=== PATIENT | female | born 1965 ===

== ENCOUNTER 2017-04-04 05:29 | Inpatient (IN) | payer MEDICARE ==
[2017-04-04] MEDS ORDERED: Dextrose 50% SYRINGE Inj (50 ml) IVP ONE ×2 (05:35→05:49)
--- NOTE | 2017-04-04 05:41 | ED PDOC ---
HPI:STROKE - Time Time: 05:20 - Historian Historian: Spouse, EMS - Chief Complaint Chief Complaint: Weakness, Mental status change - Onset Date: 04/03/17 Time: 09:30 Onset: Hours (last lucid conversation with spouse at 0930 04/03/2017) - Timing Timing: Worsening - Notes: Notes:: 51 year old female brought in by EMS presents to ED for a possible cerebrovascular accident and has a past medical history of hypotension, cervical cancer, pulmonary embolism, and small bowel enteritis. states patient's condition has been deteriorating x20 hours, and noted the last lucid conversation with the patient around that time. Notes patient initially complained of weakness and lethargy. denies fever or flu-like symptoms. As per , patient was recently discharged after being admitted to [place] for 3 months for small bowel enteritis and a subsequent abdominal surgery. confirms patient has been in cancer remission since 2014. pt currently on xarelto for history of pe. PCP: in [facility] NIHSS Stroke Scale - Date/Time Evaluation Performed Date Performed: 04/04/17 Time Performed: 05:30 When Was NIHSS Performed: Baseline - How Severe is the Stroke Level of Consciousness: 1=Drowsy LOC to Questions: 2=Neither correct LOC to commands: 2=Neither correct Best Gaze: 0=Normal Visual: 0=No visual loss Facial: 0=Normal Motor Arm - Left: 0=No drift Motor Arm - Right: 0=No drift Motor Leg - Left: 0=No drift Motor Leg - Right: 0=No drift Limb Ataxia: 0=Absent Sensory: 0=Normal Best Language: 1=Mild to moderate aphasia Dysarthia: 1=Mild to moderate slurring Extinction & Inattention (Neglect): 0=Normal, no object Score: 7 rTPA Inclusion/Exclusion - Refusal of Treatment Patient Refused Treatment: No - Inclusion Criteria for Altepase Patient is 18 years or Older: Yes The Clinical Diagnosis of Ischemic Stroke That is Causing a Potentially Disabling Neurological Deficit: Yes Time of Onset is Well Established to be Less Than 270 Minute Before Treatment Would Begin: Yes Risk/Benefit Discussed With Patient/Family Member Present: No - Exclusion Criteria for Altepase Uncontrolled Hypertension at Time of Treatment (Systolic BP above 185 or Diastolic BP above 110 mmHg): No Active Internal Bleeding: Yes Known Bleeding Diathesis Including but Not Limited to: Platelets Below 100,000/ mm,PTT Above 40 sec After Heparin Use, Current Use of Oral Anitcoagulant With INR Greater Than 1.7 or PT Greater Than 15 secs: No Evidence of an Intracranial Hemorrhage: No Evidence of Major Acute Infarct With Signs Greater Than 1/3 MCA Territory: No Suspicion of Subarachnoid Hemorrhage on Pretreatment Evaluation Even if CT Head Negative For Hemorrhage: No - Warning to TPA With Conditions Following Conditions Weighed Against Anticipated Benefit: No Past Medical History Reviewed: Historical Data, Nursing Documentation, Vital Signs - Medical History PMH: Malignancy (cervical cancer (remission since 2014)), Pulmonary Embolism Other PMH: Hypotension, small bowel enteritis - Surgical History Surgical History: Cholecystectomy Denies: No Surg Hx Other surgeries: recent unspecified abdominal surgery status post small bowel enteritis, knee replacement in July 2016, IVC filter status post pulmonary embolism, hysterectomy status post cervical cancer - Family History Family History: States: Unknown Family Hx - Living Arrangements Living Arrangements: With Family - Social History Current smoker - smoking cessation education provided: No Ex-Smoker (has not smoked in the last 12 months): No Alcohol: None Drugs: Denies - Home Medications Home Medications: Ambulatory Orders Medication Instructions Recorded Acetaminophen [Tylenol 325mg tab] 650 mg PO Q6 PRN 04/04/17 Atenolol [Tenormin] 50 mg PO DAILY 04/04/17 Gabapentin [Neurontin] 300 mg PO Q8 04/04/17 LORazepam [Ativan] 0.5 mg PO HS 04/04/17 Montelukast [Singulair] 10 mg PO DAILY 04/04/17 Pantoprazole Sodium [Protonix] 40 mg PO DAILY 04/04/17 Rivaroxaban [Xarelto] 20 mg PO DAILY 04/04/17 Tamsulosin HCl [Flomax] 0.4 mg PO HS 04/04/17 Topiramate [Topamax] 25 mg PO DAILY 04/04/17 - Allergies Allergies/Adverse Reactions: Allergies Allergy/AdvReac Type Severity Reaction Status Date / Time cimetidine [From Tagamet] Allergy RASH Verified 04/04/17 05:33 nickel Allergy RASH Verified 04/04/17 05:34 Penicillins Allergy RASH Verified 04/04/17 05:33 Review of Systems Constitutional: Negative for: Fever ( denies) ENT: Negative for: Nose Discharge ( denies), Nose Congestion ( denies), Throat Pain ( denies) Neurological: Positive for: Weakness (Patient complained of weakness initially) Physical Exam - Reviewed Nursing Documentation Reviewed: Yes Vital Signs Reviewed: Yes - Physical Exam Appears: Positive for: Non-toxic, In Acute Distress (Weak, cachectic. Temporal wasting). Negative for: Well Head Exam: Positive for: ATRAUMATIC, NORMOCEPHALIC Skin: Positive for: Normal Color, Warm, Dry Eye Exam: Positive for: Normal appearance ENT: Negative for: Normal ENT Inspection (dried red blood around mouth) Neck: Positive for: Normal (soft), Painless ROM, Supple Cardiovascular/Chest: Positive for: Regular Rate, Rhythm. Negative for: Murmur Respiratory: Positive for: Normal Breath Sounds. Negative for: Respiratory Distress Gastrointestinal/Abdominal: Positive for: Soft, Tenderness (minimally tender), Other (multiple abdominal scars from prior surgeries) Back: Positive for: Other (Bruising noted to back in multiple places) Rectal: Positive for: Blood Streaked Stool (stool mixed with bright red blood). Negative for: Normal Exam Extremity: Positive for: Normal ROM, Pedal Edema (bilateral pedal edema) Neurologic/Psych: Positive for: Alert. Negative for: Oriented - Laboratory Results Result Diagrams: 04/07/17 04:20 04/07/17 04:20 - ECG ECG Rhythm: Positive for: Sinus Rhythm. Negative for: ST/T Changes (no ST elevations) Rate: 94 - Critical Care Total Time (In Min): 30 Medical Decision Making Medical Decision Makin CODE STROKE called for altered mental status. 0529 Glucose level: 52 0543 * T&S * CT HEAD * EKG * Labs * Hemoglobin A1C * Lipid panel * Trop I * PTT/PT * CXR 0547 CT HEAD FINDINGS Brain: Mild volume loss No hemorrhage. No significant white matter disease. No edema. Ventricles: Unremarkable. No ventriculomegaly. Bones/joints: Unremarkable. No acute fracture. Soft tissues: Unremarkable. Sinuses: Unremarkable as visualized. No acute sinusitis. Mastoid air cells: Unremarkable as visualized. No mastoid effusion. IMPRESSION: No intracranial hemorrhage.Please see discussion above. 0610 * VBG * Blood culture 0610 Patient is having severe hematuria and on diaper area noted stool mixed with red blood. dried blood noted around mouth as well. Patient currently on Xarelto. [address] Abd/Pelvis. Ordered IV fluids and iv Protonix. ordered blood products , and consented patient via her at bedside. currently bp 114 systolic. Time: 07:00 Patient is signed out by me to Dr. Lance Chaudhry, pending CT rest of labs ( only CBC back at the time of my signout) and admission. Scribe Attestation: Documented by Marianne Hernandez & Lucero Kee, acting as a scribe for Denise Sandoval MD. Scribe Attestation: All medical record entries made by the Scribe were at my direction and personally dictated by me. I have reviewed the chart and agree that the record accurately reflects my personal performance of the history, physical exam, medical decision making, and the department course for this patient. I have also personally directed, reviewed, and agree with the discharge instructions and disposition. Disposition - Clinical Impression Clinical Impression: GI bleed, Respiratory distress, Anemia, Hypotension, Altered mental status - Patient ED Disposition Is Patient to be Admitted: Transfer of Care - Disposition Disposition: Transfer of Care Disposition Time: 07:00 Condition: CRITICAL Patient Signed Over To: Lance Chaudhry Handoff Comments: Pending CT, chemistry results and admission
[2017-04-04 06:08] LABS: BASO % 0.1 % (0.0-2.0); EOS # 0.5 K/uL (0.0-0.7); EOS % 4.8 % (0.0-4.0); LYMPH # 0.2 K/uL (1.0-4.3); LYMPH % 1.9 % (20.0-40.0); MEAN CELL VOLUME 81.5 fl (81.0-99.0); MEAN CORPUSCULAR HGB CONC 33.1 g/dL (33.0-37.0); MONO # 0.2 K/uL (0.0-0.8); MONO % 2.2 % (0.0-10.0); NEUT # 9.6 K/uL (1.8-7.0); RED CELL DISTRIBUTION WIDTH 18.8 % (11.5-14.5); WHITE BLOOD COUNT 10.5 K/uL (4.8-10.8)
[2017-04-04 06:12] LABS: VENOUS BLOOD GAS PCO2 25 mmHg (40-60); VENOUS BLOOD PH 7.19 (7.32-7.43)
[2017-04-04 06:24] LABS: PARTIAL THROMBOPLASTIN TIME 52.5 Seconds (25.6-37.1)
[2017-04-04] MEDS ORDERED: Sodium Chloride 0.9% 1,000 ML IV STA ×3 (06:41→10:59)
[2017-04-04] MEDS ORDERED: Pantoprazole 40 MG in Sodium Chloride 0.9% 100 ML IVPB STA ×2 (06:41→06:42)
[2017-04-04 07:03] LABS: GFR AFRICAN-AMERICAN 11
[2017-04-04 07:04] LABS: ALB/GLOB RATIO 0.8 (1.0-2.1); ALKALINE PHOSPHATASE 216 U/L (38-126); ALT/SGPT 32 U/L (9-52); AST/SGOT 37 U/L (14-36); BILIRUBIN,TOTAL 1.8 mg/dl (0.2-1.3); BLOOD UREA NITROGEN 75 mg/dl (7-17); CHLORIDE 88 mmol/L (98-107); CHOLESTEROL 100 mg/dL (0-199); GLUCOSE,RANDOM 388 mg/dL (65-105); POTASSIUM 3.9 MMOL/L (3.6-5.0); TOTAL PROTEIN 5.1 G/DL (6.3-8.2)
[2017-04-04 07:06] LABS: SODIUM 120 mmol/l (132-148)
[2017-04-04 07:07] LABS: CALCIUM 5.6 mg/dL (8.4-10.2); CARBON DIOXIDE 9 mmol/L (22-30)
[2017-04-04 07:11] LABS: URINE BILIRUBIN NEGATIVE (NEGATIVE); URINE BLOOD LARGE (NEGATIVE); URINE COLOR RED (YELLOW); URINE GLUCOSE (UA) NEG (Normal); URINE KETONE NEGATIVE (NEGATIVE); URINE LEUKOCYTE ESTERASE MOD Leu/uL (Negative); URINE PROTEIN 100 mg/dL (NEGATIVE); URINE UROBILINOGEN 0.2-1.0 mg/dL (0.2-1.0)
[2017-04-04 07:13] LABS: RBC URINE 8009 /hpf (0-3); WBC URINE 718 /hpf (0-5)
[2017-04-04 07:20] LABS: URINE BACTERIA FEW (<OCC)
--- NOTE | 2017-04-04 07:39 | ED PDOC ---
- Laboratory Results Result Diagrams: 04/04/17 05:56 04/04/17 05:56 Interpretation Of Abn Labs: 120 Na, 8.6 hg Urine dip results: Positive for: Blood - ECG ECG: Positive for: Interpreted By Me, Viewed By Me ECG Rhythm: Positive for: Nonspecific Changes O2 Sat by Pulse Oximetry: 100 (RA) - Radiology X-Ray: Interpreted by Me, Viewed By Me X-Ray Interpretation: Other (tube at sloane) - Progress ED Course And Treament: 800: supervisor residential at bedside. Central line in place. 815: Spoke with ICU doctor, will admit. Wants pressure support considering BP low. 845: Will intubate as pt. still altered and tachypneic to protect airway. 900: Stable. Pressure support medication started. Tube at sloane, will pull back 3cm. Spoke with Dr. Cornejo. Will admit ICU. Blood transfusion to be given. Spoke with GI Dr. Nixon. Will consult. No additional tx at this time. Pt. on protonix drip, getting pressure support meds, blood transfusion. - Critical Care Total Time (In Min): 60 Documented Critical Care: Time excludes all time spent performint seperately billable procedures Medical Decision Making Medical Decision Making: Time: 07:00 --Patient is signed out to me by Dr. Denise Sandoval, pending CT and reevaluation. Time: 07:25 --supervisor residential paged for central line placement. 07:38 CHEST X-RAY FINDINGS: LUNGS: There is elevation the right hemidiaphragm from an indeterminate etiology. Crowding of the bronchovascular markings is question at the medial right base and is favored over definite infiltrate. Remaining lung barrientos are unremarkable bilaterally. PLEURA: No significant pleural effusion identified, no pneumothorax apparent. CARDIOVASCULAR: Normal. OSSEOUS STRUCTURES: No significant abnormalities. VISUALIZED UPPER ABDOMEN: Surgical clips are seen in the right upper quadrant abdomen and there is an inferior vena cava filter identified in position in the abdomen as well. OTHER FINDINGS: None. IMPRESSION: Crowding of the bronchovascular markings seen the medial right base likely related to elevated right hemidiaphragm. No definite acute infiltrate bilaterally. No pleural effusion or pneumothorax bilaterally either. Time: 07:39 --supervisor residential at bedside, placing central line. Time: 08:38 --Spoke to Dr. Cornejo for admission to ICU. Scribe Attestation: Documented by Lucero Kee, acting as a scribe for Lance Chaudhry MD Provider Scribe Attestation: All medical record entries made by the Scribe were at my direction and personally dictated by me. I have reviewed the chart and agree that the record accurately reflects my personal performance of the history, physical exam, medical decision making, and the department course for this patient. I have also personally directed, reviewed, and agree with the discharge instructions and disposition. Disposition Counseled Patient/Family Regarding: Studies Performed - Clinical Impression Clinical Impression: GI bleed, Respiratory distress, Anemia, Hypotension, Altered mental status - POA Present On Arrival: Poor Glycemic Control, Pressure Ulcer (wounds healing) - Disposition Disposition: Admitted as In-Patient Disposition Time: 09:06 Condition: CRITICAL Procedure: Intubation - Time Performed Time Performed: 08:45 - Consent Obtained Consent obtained: Verbal () - Performed By Performed by: Attending Physician - Indications Indication(s):: Respiratory failure, Hemodynamically unstable - Method Method:: Oral-Laryngoscopy - Rapid Sequence Intubation Anesthetic:: Etomidate Pretreatment:: Pre-oxygenation - Tube type Tube type:: Endotracheal tube Tube size:: Cuffed Number of attempts:: 1 Depth measured at lip: cm: 21 - Confirmation Confirmation: Direct visual.of intubate, End-tidal CO2 positive, Bilat. breath sounds, No epigastric gurgle - Post-intubation CXR Post-intubation CXR: CM above sloane Tube adjustment:: Requires adjustment, cm above sloane (at sloane) - Post-intubation O2 sat % Post-intubation O2 sat%:: 100
[2017-04-04] MEDS ORDERED: Rocuronium 10 mg/ml (5 ml) ONE ×2 (08:43→08:46)
[2017-04-04] MEDS ORDERED: Etomidate 20 mg/10ml Inj IV ONE ×2 (08:43→09:14)
--- NOTE | 2017-04-04 09:53 | PCM.PROC ---
Procedures Attestation:: I certify that I have explained the specified Operation(s) or Procedure(s), risks, benefits and reasonable alternatives to the Patient and/or other person responsible. The opportunity was given to ask questions and all questions answered - Central Line Placement Right Femoral Triple Lumen Catheter Aseptic technique was employed throughout the procedure: Hand Hygiene done prior to procedure, Full sterile barriers (mask, hair cover, sterile gown, sterile gloves), Full body sterile drape, Chloraprep Antiseptic: 2 minute prep for Femoral Central Line Prep: Chlorhexidine-Alcohol Combination Local Anesthesia Used: Lidocaine 1% Central Line Lumen Inserted: triple Central Line Length: 20 cm Post Procedure: Sutured in Place, Good Blood Return, All Ports Aspirated, Flushed, Capped, Sterile Dressing Applied Secured by: Suture Post procedure dressing: Gauze, Chlorhexidine disc (Biopatch) Patient Tolerated Procedure: Well, No Complications
--- NOTE | 2017-04-04 09:53 | CT ---
PROCEDURE: CT HEAD WITHOUT CONTRAST. HISTORY: code stroke COMPARISON: None available. TECHNIQUE: Axial computed tomography images were obtained through the head/brain without intravenous contrast. Radiation dose: Total exam DLP = 960.12 mGy-cm. This CT exam was performed using one or more of the following dose reduction techniques: Automated exposure control, adjustment of the mA and/or kV according to patient size, and/or use of iterative reconstruction technique. FINDINGS: HEMORRHAGE: No intracranial hemorrhage. BRAIN: Normal siegel-white matter differentiation and density are appreciated throughout the cerebrum and cerebellum with the brainstem appearing unremarkable as well. There is no mass effect. There is no suspicious extra-axial fluid collection in the midline brain anatomy appears diffusely unremarkable. VENTRICLES: Unremarkable. No hydrocephalus. CALVARIUM: Unremarkable. PARANASAL SINUSES: Unremarkable as visualized. No significant inflammatory changes. MASTOID AIR CELLS: Unremarkable as visualized. No inflammatory changes. OTHER FINDINGS: None. IMPRESSION: Unremarkable unenhanced CT of the Head. Follow-up CT or MRI are available if clinically warranted.
--- NOTE | 2017-04-04 10:04 | RAD ---
HISTORY: post intubation COMPARISON: Single frontal chest radiograph 04/04/2014 05:58 a.m.. FINDINGS: Interval endotracheal intubation is appreciate with the endotracheal tube potentially abutting the sloane. Retraction 1-2 cm is advised follow-up by confirmation radiograph. LUNGS: Patchy atelectasis or infiltrate appears to be developing the medial right base with remaining lung barrientos clear otherwise bilaterally. PLEURA: No significant pleural effusion identified, no pneumothorax apparent. CARDIOVASCULAR: Normal. OSSEOUS STRUCTURES: No significant abnormalities. VISUALIZED UPPER ABDOMEN: Surgical clips are seen the right upper quadrant abdomen as well as inferior vena cava filter. OTHER FINDINGS: None. IMPRESSION: Endotracheal tube terminates at the sloane. Retraction once cm is advised follow-up by confirmation chest radiograph. Developing atelectasis or infiltrate right base medially.
[2017-04-04 10:47] LABS: NEUTROPHIL 88 % (42-75); TOTAL CELLS COUNTED 100
[2017-04-04 10:56] LABS: LARGE PLATELETS PRESENT
--- NOTE | 2017-04-04 10:59 | CT ---
PROCEDURE: CT Abdomen and Pelvis without intravenous contrast HISTORY: gi bleed COMPARISON: None. TECHNIQUE: Helical CT of the abdomen and pelvis was performed without oral or intravenous contrast as per referring physician request .. Contrast Dose: None Radiation dose: Total exam DLP = 1150.00 mGy-cm. This CT exam was performed using one or more of the following dose reduction techniques: Automated exposure control, adjustment of the mA and/or kV according to patient size, and/or use of iterative reconstruction technique. FINDINGS: LOWER THORAX: Dependent atelectasis favored over infiltrate at the right lower lobe base with limited atelectasis noted at the left base, also dependent. No pleural or pericardial effusion identified. LIVER: There is marked lucency seen throughout the liver indicative of prominent diffuse fatty infiltration without focal mass appreciable in this unenhanced examination. No gross biliary tree dilatation is appreciated. GALLBLADDER AND BILE DUCTS: Prior cholecystectomy. PANCREAS: Unremarkable. No gross lesion or ductal dilatation. SPLEEN: Unremarkable. ADRENALS: Unremarkable. No mass. KIDNEYS AND URETERS: There is mild bilateral hydronephrosis appreciated with a few surgical clips identified scattered the bilateral retroperitoneum at the level of the mid to upper ureters. The left ureter is not appear particularly prominent with mild dilatation noted in the proximal right ureter. Consider potential bilateral strictures. Intraureteral calculi are not favored but difficult to evaluate due the presence of retroperitoneal surgical clips. Contrast CT would be useful for further characterization. VASCULATURE: Inferior vena cava filter is identified in the IVC with the abdominal aorta normal caliber throughout. BOWEL: Evaluation of the bowel is compromised by the lack of not only intravenous but also oral contrast material. There is no definite bowel obstruction appreciated. A few small bowel loops are seen somewhat moderately dilated at the mid to lower abdomen and pelvis a could reflect an early ileus though this is not definite. APPENDIX: Unremarkable. Normal appendix. PERITONEUM: Trace fluid is seen the pelvis of uncertain origin. Clinically correlate. No free intraperitoneal gas. LYMPH NODES: No grossly enlarged lymph nodes. BLADDER: Urinary bladder is decompressed by Overton catheter. REPRODUCTIVE: Prior hysterectomy apparent. Clinically correlate. BONES: Grade 1 spondylolisthesis of L4 anterior to L5 minimally. OTHER FINDINGS: None. IMPRESSION: 1. Right lower lobe dependent atelectasis or infiltrate [id number] in severity, minimal at the left lower lobe base. 2. Gross diffuse fatty infiltration of the liver. 3. Prior cholecystectomy. Clinically correlate. 4. Prior inferior vena cava filter placement. 5. Evaluation the bowel is compromised by lack of contrast agents. Limited developing ileus is difficult to exclude involving small bowel loops in the mid to lower abdomen and pelvis without obstruction not felt to be present. Radiographic follow-up is advised as well as clinical correlation. 6. Limited pelvic fluid identified of uncertain origin. 7. Prior hysterectomy suggested. Clinically correlate.
[2017-04-04] MEDS ORDERED: Fentanyl Citrate 2,500 MCG in Dextrose 5% In Water 200 ML IV SCH (11:00)
[2017-04-04 11:02] LABS: PLATELET COUNT 100 K/uL (130-400)
--- NOTE | 2017-04-04 11:54 | CP.PCM.CON ---
History of Present Illness - History of Present Illness History of Present Illness: Patient is a 51 years of age I was called to see her for abnormal kidney function. The at the bedside History was taken from the and from the medical records because the patient is intubated and not responding. Patient presented what appeared to be diffuse bleeding gross hematuria vomiting blood may be? And has very complicated past medical surgical history as noted in the medical record Past Medical History Reviewed: Historical Data, Nursing Documentation, Vital Signs - Medical History PMH: Malignancy (cervical cancer (remission since 2014)), Pulmonary Embolism Other PMH: Hypotension, small bowel enteritis - Surgical History Surgical History: Cholecystectomy Denies: No Surg Hx Other surgeries: recent unspecified abdominal surgery status post small bowel enteritis, knee replacement in July 2016, IVC filter status post pulmonary embolism, hysterectomy status post cervical cancer - Living Arrangements Living Arrangements: With Family - Social History Current smoker - smoking cessation education provided: No Ex-Smoker (has not smoked in the last 12 months): No Alcohol: None Drugs: Denies Review of Systems - Review of Systems Review of Systems: intubated - EENT Nose/Mouth/Throat: As Per HPI - Cardiovascular Cardiovascular: As Per HPI. absent: Chest Pain, Dyspnea - Gastrointestinal Gastrointestinal: Coffee Ground Emesis. absent: Abdominal Pain - Genitourinary Genitourinary: Hematuria - Musculoskeletal Musculoskeletal: As Per HPI - Neurological Neurological: As Per HPI Past Patient History - Past Social History Alcohol: None Drugs: Denies - CARDIAC Hx Cardiac Disorders: Yes - PULMONARY Hx Respiratory Disorders: Yes - GASTROINTESTINAL Hx Gastrointestinal Disorders: Yes Hx Bowel Surgery: Yes Other/Comment: small bowel enteritis - GENITOURINARY/GYNECOLOGICAL Hx Genitourinary Disorders: Yes - PSYCHIATRIC Hx Substance Use: No - SURGICAL HISTORY Hx Cholecystectomy: Yes Meds Allergies/Adverse Reactions: Allergies Allergy/AdvReac Type Severity Reaction Status Date / Time cimetidine [From Tagamet] Allergy RASH Verified 04/04/17 05:33 nickel Allergy RASH Verified 04/04/17 05:34 Penicillins Allergy RASH Verified 04/04/17 05:33 - Medications Medications: Current Medications Phenylephrine HCl 10 mg/ (Sodium Chloride) 251 mls @ 30.12 mls/hr IV .Q8H20M ODETTE; 20 MCG/MIN PRN Reason: Protocol Last Titration: 04/04/17 11:20 Dose: 110 mcg/min, 165.66 mls/hr Fentanyl Citrate 2,500 mcg/ (Dextrose) 250 mls @ 2.5 mls/hr IV .Q24H ODETTE; 25 MCG/HR PRN Reason: Protocol Sodium Chloride (Sodium Chloride 0.9%) 1,000 mls @ 150 mls/hr IV .Q6H40M STA Stop: 04/04/17 13:20 Norepinephrine Bitartrate 4 mg (/ Dextrose) 254 mls @ 9.52 mls/hr IV .Q24H ODETTE ; 2.5 MCG/MIN PRN Reason: Protocol Last Admin: 04/04/17 11:20 Dose: 2.5 mcg/min, 9.52 mls/hr Norepinephrine Bitartrate 16 (mg/ Dextrose) 266 mls @ 2.49 mls/hr IV .Q24H ONE PRN Reason: 2.5 MCG/MIN Stop: 04/05/17 11:06 Pantoprazole Sodium (Protonix Inj) 40 mg IVP Q12H ODETTE Physical Exam - Constitutional Appears: In Acute Distress - ENT Exam ENT Exam: Mucous Membranes Dry - Respiratory Exam Respiratory Exam: Rhonchi. absent: Chest Wall Tenderness - Cardiovascular Exam Cardiovascular Exam: absent: JVD, Rubs - GI/Abdominal Exam GI & Abdominal Exam: Guarding - Extremities Exam Extremities exam: Negative for: calf tenderness - Back Exam Back exam: absent: CVA tenderness (L), CVA tenderness (R) Results - Vital Signs Recent Vital Signs: Last Vital Signs Temp 97.7 F 04/04/17 11:50 Pulse 77 04/04/17 11:40 Resp 17 04/04/17 11:40 BP 80/55 L 04/04/17 11:40 Pulse Ox 100 04/04/17 11:40 - Labs Result Diagrams: 04/04/17 05:56 04/04/17 05:56 Labs: Laboratory Results - last 24 hr 04/04/17 04/04/17 04/04/17 05:56 05:56 05:56 WBC 10.5 RBC 3.19 L Hgb 8.6 L Hct 26.0 L MCV 81.5 MCH 27.0 MCHC 33.1 RDW 18.8 H Plt Count 100 L MPV 10.0 Neut % (Auto) 91.0 H Lymph % (Auto) 1.9 L Bailey % (Auto) 2.2 Eos % (Auto) 4.8 H Baso % (Auto) 0.1 Neut # 9.6 H Lymph # 0.2 L Bailey # 0.2 Eos # 0.5 Baso # 0.0 Neutrophils % (Manual) 88 H Lymphocytes % (Manual) 9 L Monocytes % (Manual) 3 Platelet Estimate Decreased L Large Platelets Present Hypochromasia (manual) Slight Anisocytosis (manual) Slight PT INR APTT pO2 VBG pH VBG pCO2 VBG HCO3 VBG Total CO2 VBG O2 Sat (Calc) VBG Base Excess VBG Potassium Glucose Lactate FiO2 Crit Value Called To Crit Value Called By Crit Value Read Back Blood Gas Notified Time Sodium 120 L* Potassium 3.9 Chloride 88 L Carbon Dioxide 9 L* Anion Gap 27 H BUN 75 H Creatinine 5.1 H Est GFR ( Amer) 11 Est GFR (Non-Af Amer) 9 Random Glucose 388 H Hemoglobin A1c 5.8 Calcium 5.6 L* Total Bilirubin 1.8 H AST 37 H ALT 32 Alkaline Phosphatase 216 H Troponin I < 0.0120 Total Protein 5.1 L Albumin 2.3 L Globulin 2.8 Albumin/Globulin Ratio 0.8 L Triglycerides 368 H Cholesterol 100 LDL Cholesterol Direct 31 HDL Cholesterol 15 L Venous Blood Potassium Urine Color Urine Clarity Urine pH Ur Specific [place] Urine Protein Urine Glucose (UA) Urine Ketones Urine Blood Urine Nitrate Urine Bilirubin Urine Urobilinogen Ur Leukocyte Esterase Urine RBC (Auto) Urine Microscopic WBC Urine Bacteria Blood Type Blood Type Confirm Antibody Screen Crossmatch IS Only BBK History Checked 04/04/17 04/04/17 04/04/17 05:56 05:56 06:05 WBC RBC Hgb Hct MCV MCH MCHC RDW Plt Count MPV Neut % (Auto) Lymph % (Auto) Bailey % (Auto) Eos % (Auto) Baso % (Auto) Neut # Lymph # Bailey # Eos # Baso # Neutrophils % (Manual) Lymphocytes % (Manual) Monocytes % (Manual) Platelet Estimate Large Platelets Hypochromasia (manual) Anisocytosis (manual) PT 31.5 H INR 2.7 H APTT 52.5 H pO2 45 VBG pH 7.19 L* VBG pCO2 25 L VBG HCO3 10.9 VBG Total CO2 10.3 L VBG O2 Sat (Calc) 81.2 H VBG Base Excess -17.0 L VBG Potassium 3.9 Glucose 440 H* Lactate 4.4 H* FiO2 21.0 Crit Value Called To Dr may cameron Crit Value Called By 333 Crit Value Read Back Y Blood Gas Notified Time 610 Sodium 118.0 L* Potassium Chloride 84.0 L Carbon Dioxide Anion Gap BUN Creatinine Est GFR ( Amer) Est GFR (Non-Af Amer) Random Glucose Hemoglobin A1c Calcium Total Bilirubin AST ALT Alkaline Phosphatase Troponin I Total Protein Albumin Globulin Albumin/Globulin Ratio Triglycerides Cholesterol LDL Cholesterol Direct HDL Cholesterol Venous Blood Potassium 3.9 Urine Color Urine Clarity Urine pH Ur Specific [place] Urine Protein Urine Glucose (UA) Urine Ketones Urine Blood Urine Nitrate Urine Bilirubin Urine Urobilinogen Ur Leukocyte Esterase Urine RBC (Auto) Urine Microscopic WBC Urine Bacteria Blood Type A POSITIVE Blood Type Confirm Antibody Screen Negative Crossmatch IS Only See Detail BBK History Checked No verified bt 04/04/17 04/04/17 06:22 07:01 WBC RBC Hgb Hct MCV MCH MCHC RDW Plt Count MPV Neut % (Auto) Lymph % (Auto) [place] % (Auto) Eos % (Auto) Baso % (Auto) Neut # Lymph # Bailey # Eos # Baso # Neutrophils % (Manual) Lymphocytes % (Manual) Monocytes % (Manual) Platelet Estimate Large Platelets Hypochromasia (manual) Anisocytosis (manual) PT INR APTT pO2 VBG pH VBG pCO2 VBG HCO3 VBG Total CO2 VBG O2 Sat (Calc) VBG Base Excess VBG Potassium Glucose Lactate FiO2 Crit Value Called To Crit Value Called By Crit Value Read Back Blood Gas Notified Time Sodium Potassium Chloride Carbon Dioxide Anion Gap BUN Creatinine Est GFR ( Amer) Est GFR (Non-Af Amer) Random Glucose Hemoglobin A1c Calcium Total Bilirubin AST ALT Alkaline Phosphatase Troponin I Total Protein Albumin Globulin Albumin/Globulin Ratio Triglycerides Cholesterol LDL Cholesterol Direct HDL Cholesterol Venous Blood Potassium Urine Color Red Urine Clarity Turbid Urine pH 7.0 Ur Specific [place] 1.013 Urine Protein 100 Urine Glucose (UA) Neg Urine Ketones Negative Urine Blood Large Urine Nitrate Negative Urine Bilirubin Negative Urine Urobilinogen 0.2-1.0 Ur Leukocyte Esterase Mod Urine RBC (Auto) 8009 H Urine Microscopic WBC 718 H Urine Bacteria Few H Blood Type Blood Type Confirm A POSITIVE Antibody Screen Crossmatch IS Only BBK History Checked Assessment & Plan (1) Acute renal injury due to circulatory failure Assessment and Plan: Patient appears to have acute kidney failure from circulatory failure basically and diffuse bleeding. Anemia, respiratory failure Hypotensive Metabolic acidosis Hyponatremia Patient has poor prognosis we will try to do hemodialysis if the blood pressure to go above 90 hopefully with the blood transfusion And to be given vasopressor on hemodialysis and blood transfusion on hemodialysis as well. Consent was taken Explained to the the risk of the dialysis and over old her prognosis which appeared to be poor. I discuss also the case with the bottle hop and we are moving to have temporary dialysis catheter and for dialysis arrangement underway.. Status: Acute (2) Altered mental status Status: Acute (3) GI bleed Status: Acute (4) Hypotension Status: Acute
[2017-04-04] MEDS ORDERED: Lidocaine 1% Inj (20ml) ONE (12:00)
[2017-04-04 12:08] LABS: ABG ALLEN TEST YES; ABG MECHANICAL RATE 14; ARTERIAL BLOOD GAS HCO3 12.3 mmol/L (21-28); ARTERIAL BLOOD GAS MODE PRVC/AC; ARTERIAL BLOOD GAS PH 7.22 (7.35-7.45); ARTERIAL BLOOD GAS PO2 375 mm/Hg (80-100); ATERIAL BLOOD GAS PEEP 5
--- NOTE | 2017-04-04 12:23 | CP.PCM.HP ---
History of Present Illness - History of Present Illness History of Present Illness: CC: [facility] to increased weakness, AMS, onset 04/03/17 with no improvement. As per , Pt with severe weakness,not responding, wheezing and AMS on DOA , also he explained, Hx of Ovarian Ca s/p RODRIGO,BSO on remision since 2014, She was admitted to [facility] for a month in December this year, Pt underwent Laparotomy for SBO , there after Right Hydronephrosis requiring stent, which has been removed , post op PE , IVC filter on Xarelto , She was discharged last Tuesday from rehab and has been feeling tired and week since that day, symptoms increasing gradually to severe on DOA , bleeding trough her mouth associated to Hypotension. Worsening symptoms: Found with Hgb 8.6 and Gross Hematuria while at the ER, Acute Renal failure with severe Metabolic Acidosis In ER, Pt was altered, tachypneic and BP drop to 59/36, Pt was intubated and admitted to ICU with Respiratory Failure CXR 1: Crowding of the bronchovascular markings seen the medial R base likely related to elevated R hemidiaphragm, no infiltrate, effusion or pneumothorax CXR 2: Developing atelectasis/infiltrate R base. CT Head: Unremarkable. Abd/Pelv CT: RLL dependent atelectasis/ infiltrate mild to moderate in severity , minimal at the lower lobe base, gross diffused fatty infiltration of liver, inferior vena cava filter. Pelvis fluid of uncertain origin. Limited developed ileus involving small bowel loops in the middle lower abdomen and pelvis, no obstruction. Present on Admission - Present on Admission History of DVT/PE: Yes Review of Systems - Review of Systems Systems not reviewed;Unavailable: Acuity of Condition, Intubated Past Patient History - Past Medical History & Family History Pertinent Family History: Unknown - Past Social History Smoking Status: Unknown If Ever Smoked Alcohol: None Drugs: Denies Home Situation {Lives}: With Family - CARDIAC Hx Cardiac Disorders: No - PULMONARY Hx Respiratory Disorders: Yes Other/Comment: P/E - NEUROLOGICAL Hx Neurological Disorder: No - HEENT Hx HEENT Problems: No - ENDOCRINE/METABOLIC Hx Endocrine Disorders: No - HEMATOLOGICAL/ONCOLOGICAL Hx Blood Disorders: Yes Hx Cancer: Yes (Cervical) - INTEGUMENTARY Hx Dermatological Problems: No - MUSCULOSKELETAL/RHEUMATOLOGICAL Hx Musculoskeletal Disorders: No - GASTROINTESTINAL Hx Gastrointestinal Disorders: Yes Hx Bowel Surgery: Yes Hx Fatty Liver Disease: Yes Other/Comment: small bowel enteritis - GENITOURINARY/GYNECOLOGICAL Hx Genitourinary Disorders: Yes Hx Ovarian Cancer: Yes - PSYCHIATRIC Hx Psychophysiologic Disorder: No Hx Substance Use: No - SURGICAL HISTORY Hx Surgeries: Yes Hx Cholecystectomy: Yes Hx Hysterectomy: Yes Other/Comment: RODRIGO, BSO, Laparotomy, R ureteral stent , IVC filter - ANESTHESIA Hx Anesthesia: Yes Hx Anesthesia Reactions: No Meds Allergies/Adverse Reactions: Allergies Allergy/AdvReac Type Severity Reaction Status Date / Time cimetidine [From Tagamet] Allergy RASH Verified 04/04/17 05:33 nickel Allergy RASH Verified 04/04/17 05:34 Penicillins Allergy RASH Verified 04/04/17 05:33 Physical Exam - Constitutional Appears: Chronically Ill - Head Exam Head Exam: NORMAL INSPECTION - Eye Exam Eye Exam: PERRL (opening spontaneous) - ENT Exam Additional comments: Intubated - Neck Exam Neck exam: Positive for: Normal Inspection - Respiratory Exam Respiratory Exam: Decreased Breath Sounds (b/l) - Cardiovascular Exam Cardiovascular Exam: REGULAR RHYTHM - GI/Abdominal Exam GI & Abdominal Exam: Normal Bowel Sounds, Soft Additional comments: open surgical wound mid lower abdomen with yellow sloughy base - Exam Additional comments: [place] Cath - Extremities Exam Extremities exam: Positive for: pedal edema (b/l) - Back Exam Additional comments: Skin tear R middle back - Neurological Exam Additional comments: Open eyes spontaneous, intubated - Skin Skin Exam: Pallor, Warm Results - Vital Signs Recent Vital Signs: Last Vital Signs Temp 97.7 F 04/04/17 11:50 Pulse 77 04/04/17 11:40 Resp 17 04/04/17 11:40 BP 80/55 L 04/04/17 11:40 Pulse Ox 100 04/04/17 11:40 reviewed Mickie Goetz - Labs Result Diagrams: 05/05/17 04:20 05/06/17 07:40 Labs: Laboratory Results - last 24 hr 04/04/17 04/04/17 04/04/17 05:56 05:56 05:56 WBC 10.5 RBC 3.19 L Hgb 8.6 L Hct 26.0 L MCV 81.5 MCH 27.0 MCHC 33.1 RDW 18.8 H Plt Count 100 L MPV 10.0 Neut % (Auto) 91.0 H Lymph % (Auto) 1.9 L [place] % (Auto) 2.2 Eos % (Auto) 4.8 H Baso % (Auto) 0.1 Neut # 9.6 H Lymph # 0.2 L [place] # 0.2 Eos # 0.5 Baso # 0.0 Neutrophils % (Manual) 88 H Lymphocytes % (Manual) 9 L Monocytes % (Manual) 3 Platelet Estimate Decreased L Large Platelets Present Hypochromasia (manual) Slight Anisocytosis (manual) Slight PT INR APTT pO2 VBG pH VBG pCO2 VBG HCO3 VBG Total CO2 VBG O2 Sat (Calc) VBG Base Excess VBG Potassium Glucose Lactate FiO2 Crit Value Called To Crit Value Called By Crit Value Read Back Blood Gas Notified Time Sodium 120 L* Potassium 3.9 Chloride 88 L Carbon Dioxide 9 L* Anion Gap 27 H BUN 75 H Creatinine 5.1 H Est GFR ( Amer) 11 Est GFR (Non-Af Amer) 9 Random Glucose 388 H Hemoglobin A1c 5.8 Calcium 5.6 L* Total Bilirubin 1.8 H AST 37 H ALT 32 Alkaline Phosphatase 216 H Troponin I < 0.0120 Total Protein 5.1 L Albumin 2.3 L Globulin 2.8 Albumin/Globulin Ratio 0.8 L Triglycerides 368 H Cholesterol 100 LDL Cholesterol Direct 31 HDL Cholesterol 15 L Venous Blood Potassium Urine Color Urine Clarity Urine pH Ur Specific [place] Urine Protein Urine Glucose (UA) Urine Ketones Urine Blood Urine Nitrate Urine Bilirubin Urine Urobilinogen Ur Leukocyte Esterase Urine RBC (Auto) Urine Microscopic WBC Urine Bacteria Blood Type Blood Type Confirm Antibody Screen Crossmatch IS Only BBK History Checked 04/04/17 04/04/17 04/04/17 05:56 05:56 06:05 WBC RBC Hgb Hct MCV MCH MCHC RDW Plt Count MPV Neut % (Auto) Lymph % (Auto) [place] % (Auto) Eos % (Auto) Baso % (Auto) Neut # Lymph # [place] # Eos # Baso # Neutrophils % (Manual) Lymphocytes % (Manual) Monocytes % (Manual) Platelet Estimate Large Platelets Hypochromasia (manual) Anisocytosis (manual) PT 31.5 H INR 2.7 H APTT 52.5 H pO2 45 VBG pH 7.19 L* VBG pCO2 25 L VBG HCO3 10.9 VBG Total CO2 10.3 L VBG O2 Sat (Calc) 81.2 H VBG Base Excess -17.0 L VBG Potassium 3.9 Glucose 440 H* Lactate 4.4 H* FiO2 21.0 Crit Value Called To Dr may cameron Crit Value Called By 333 Crit Value Read Back Y Blood Gas Notified Time 610 Sodium 118.0 L* Potassium Chloride 84.0 L Carbon Dioxide Anion Gap BUN Creatinine Est GFR ( Amer) Est GFR (Non-Af Amer) Random Glucose Hemoglobin A1c Calcium Total Bilirubin AST ALT Alkaline Phosphatase Troponin I Total Protein Albumin Globulin Albumin/Globulin Ratio Triglycerides Cholesterol LDL Cholesterol Direct HDL Cholesterol Venous Blood Potassium 3.9 Urine Color Urine Clarity Urine pH Ur Specific [place] Urine Protein Urine Glucose (UA) Urine Ketones Urine Blood Urine Nitrate Urine Bilirubin Urine Urobilinogen Ur Leukocyte Esterase Urine RBC (Auto) Urine Microscopic WBC Urine Bacteria Blood Type A POSITIVE Blood Type Confirm Antibody Screen Negative Crossmatch IS Only See Detail BBK History Checked No verified bt 04/04/17 04/04/17 06:22 07:01 WBC RBC Hgb Hct MCV MCH MCHC RDW Plt Count MPV Neut % (Auto) Lymph % (Auto) [place] % (Auto) Eos % (Auto) Baso % (Auto) Neut # Lymph # [place] # Eos # Baso # Neutrophils % (Manual) Lymphocytes % (Manual) Monocytes % (Manual) Platelet Estimate Large Platelets Hypochromasia (manual) Anisocytosis (manual) PT INR APTT pO2 VBG pH VBG pCO2 VBG HCO3 VBG Total CO2 VBG O2 Sat (Calc) VBG Base Excess VBG Potassium Glucose Lactate FiO2 Crit Value Called To Crit Value Called By Crit Value Read Back Blood Gas Notified Time Sodium Potassium Chloride Carbon Dioxide Anion Gap BUN Creatinine Est GFR ( Amer) Est GFR (Non-Af Amer) Random Glucose Hemoglobin A1c Calcium Total Bilirubin AST ALT Alkaline Phosphatase Troponin I Total Protein Albumin Globulin Albumin/Globulin Ratio Triglycerides Cholesterol LDL Cholesterol Direct HDL Cholesterol Venous Blood Potassium Urine Color Red Urine Clarity Turbid Urine pH 7.0 Ur Specific [place] 1.013 Urine Protein 100 Urine Glucose (UA) Neg Urine Ketones Negative Urine Blood Large Urine Nitrate Negative Urine Bilirubin Negative Urine Urobilinogen 0.2-1.0 Ur Leukocyte Esterase Mod Urine RBC (Auto) 8009 H Urine Microscopic WBC 718 H Urine Bacteria Few H Blood Type Blood Type Confirm A POSITIVE Antibody Screen Crossmatch IS Only BBK History Checked reviewed J.PKristina - EKG Data EKG comments: reviewed J.P. - Imaging and Cardiology CT scan - head Status: Report reviewed by me (Yu) Chest x-ray Status: Report reviewed by me (Yu) CT scan - abdomen Status: Report reviewed by me (Yu) CT scan - pelvis Status: Report reviewed by me (Yu) Assessment & Plan (1) Acute respiratory failure Status: Acute Priority: High (2) Hypovolemic shock Status: Deleted (3) Altered mental status Status: Acute Priority: High (4) Hematuria, gross Status: Deleted Priority: High (5) Acute renal failure (ARF) Status: Acute Priority: High (6) Metabolic acidosis Status: Acute (7) Anemia Status: Acute Priority: High (8) History of pulmonary embolus (PE) Status: Acute Priority: Medium - Assessment and Plan (Free Text) Plan: Continue ventilatory support, PRVC/AC 14% FIO2 100%, Blood C-S, U C-S, MRSA Screening, Continue Rocephin IV, Phenylephrine IV, Norepinephrine IV and rest of Tx, Nephrology and GI consult. ICU time: 60 minutes. - Date & Time Date: 04/04/17 Time: 10:30
--- NOTE | 2017-04-04 12:40 | PCM.SURG1 ---
Surgeon's Initial Post Op Note - Surgeon's Notes Surgeon: Galilea Baker Snapper On: NONE Type of Anesthesia: Local Pre-Operative Diagnosis: Renal failure Operative Findings: Patent right IJV Post-Operative Diagnosis: Renal failure Operation Performed: Non tunneled HD catheter placement via the right IJV Specimen/Specimens Removed: none Estimated Blood Loss: EBL {In ML}: 1 Blood Products Given: N/A Drains Used: No Drains Date of Surgery/Procedure: 04/04/17 Time of Surgery/Procedure: 12:30
--- NOTE | 2017-04-04 12:44 | CP.PCM.CON ---
History of Present Illness - History of Present Illness History of Present Illness: 51yo F. PMHx ovarian CA s/p RODRIGO/BSO (in remission since 2014), SB enteritis s/p ex-lap with LOWA (01/04/17) which was c/b VAP, ascites with drain placement and post-op PE (IVC filter, now on Xarelto) with a six week ICU stay at [facility], right hydronephrosis with ureteral stent placement (now removed). Patient was discharged to rehab around March 12. Now p/w acute renal failure with severe metabolic acidosis, oozing blood from oropharynx and possible traumatic castillo placement. Review of Systems - Review of Systems Systems not reviewed;Unavailable: Altered Mental Status Past Patient History - Past Social History Alcohol: None Drugs: Denies - CARDIAC Hx Cardiac Disorders: Yes - PULMONARY Hx Respiratory Disorders: Yes - GASTROINTESTINAL Hx Gastrointestinal Disorders: Yes Hx Bowel Surgery: Yes Other/Comment: small bowel enteritis - GENITOURINARY/GYNECOLOGICAL Hx Genitourinary Disorders: Yes - PSYCHIATRIC Hx Substance Use: No - SURGICAL HISTORY Hx Cholecystectomy: Yes Meds Allergies/Adverse Reactions: Allergies Allergy/AdvReac Type Severity Reaction Status Date / Time cimetidine [From Tagamet] Allergy RASH Verified 04/04/17 05:33 nickel Allergy RASH Verified 04/04/17 05:34 Penicillins Allergy RASH Verified 04/04/17 05:33 - Medications Medications: Current Medications Phenylephrine HCl 10 mg/ (Sodium Chloride) 251 mls @ 30.12 mls/hr IV .Q8H20M ODETTE; 20 MCG/MIN PRN Reason: Protocol Last Admin: 04/04/17 12:00 Dose: 110 mcg/min, 165.66 mls/hr Fentanyl Citrate 2,500 mcg/ (Dextrose) 250 mls @ 2.5 mls/hr IV .Q24H ODETTE; 25 MCG/HR PRN Reason: Protocol Sodium Chloride (Sodium Chloride 0.9%) 1,000 mls @ 150 mls/hr IV .Q6H40M STA Stop: 04/04/17 13:20 Norepinephrine Bitartrate 4 mg (/ Dextrose) 254 mls @ 9.52 mls/hr IV .Q24H ODETTE ; 2.5 MCG/MIN PRN Reason: Protocol Last Titration: 04/04/17 11:30 Dose: 5 mcg/min, 19.05 mls/hr Pantoprazole Sodium (Protonix Inj) 40 mg IVP Q12H ODETTE Physical Exam - Constitutional Appears: Toxic - Head Exam Head Exam: ATRAUMATIC, NORMAL INSPECTION, NORMOCEPHALIC - Eye Exam Eye Exam: EOMI, Normal appearance, PERRL - ENT Exam ENT Exam: Mucous Membranes Dry (bloody) - Respiratory Exam Respiratory Exam: Clear to Auscultation Bilateral, NORMAL BREATHING PATTERN - Cardiovascular Exam Cardiovascular Exam: REGULAR RHYTHM - GI/Abdominal Exam GI & Abdominal Exam: Diminished Bowel Sounds, Soft. absent: Tenderness - Neurological Exam Neurological exam: Altered Results - Vital Signs Recent Vital Signs: Last Vital Signs Temp 97.7 F 04/04/17 11:50 Pulse 81 04/04/17 12:40 Resp 24 04/04/17 12:40 BP 89/55 L 04/04/17 12:40 Pulse Ox 100 04/04/17 12:40 - Labs Result Diagrams: 04/04/17 05:56 04/04/17 05:56 Labs: Laboratory Results - last 24 hr 04/04/17 04/04/17 04/04/17 05:56 05:56 05:56 WBC 10.5 RBC 3.19 L Hgb 8.6 L Hct 26.0 L MCV 81.5 MCH 27.0 MCHC 33.1 RDW 18.8 H Plt Count 100 L MPV 10.0 Neut % (Auto) 91.0 H Lymph % (Auto) 1.9 L [place] % (Auto) 2.2 Eos % (Auto) 4.8 H Baso % (Auto) 0.1 Neut # 9.6 H Lymph # 0.2 L [place] # 0.2 Eos # 0.5 Baso # 0.0 Neutrophils % (Manual) 88 H Lymphocytes % (Manual) 9 L Monocytes % (Manual) 3 Platelet Estimate Decreased L Large Platelets Present Hypochromasia (manual) Slight Anisocytosis (manual) Slight PT INR APTT pCO2 pO2 HCO3 ABG pH ABG Total CO2 ABG O2 Saturation ABG Base Excess [place] Test ABG Potassium VBG pH VBG pCO2 VBG HCO3 VBG Total CO2 VBG O2 Sat (Calc) VBG Base Excess VBG Potassium A-a O2 Difference Glucose Lactate Vent Mode Mechanical Rate FiO2 Tidal Volume PEEP Crit Value Called To Crit Value Called By Crit Value Read Back Blood Gas Notified Time Sodium 120 L* Potassium 3.9 Chloride 88 L Carbon Dioxide 9 L* Anion Gap 27 H BUN 75 H Creatinine 5.1 H Est GFR ( Amer) 11 Est GFR (Non-Af Amer) 9 Random Glucose 388 H Hemoglobin A1c 5.8 Calcium 5.6 L* Total Bilirubin 1.8 H AST 37 H ALT 32 Alkaline Phosphatase 216 H Troponin I < 0.0120 Total Protein 5.1 L Albumin 2.3 L Globulin 2.8 Albumin/Globulin Ratio 0.8 L Triglycerides 368 H Cholesterol 100 LDL Cholesterol Direct 31 HDL Cholesterol 15 L Arterial Blood Potassium Venous Blood Potassium Urine Color Urine Clarity Urine pH Ur Specific [place] Urine Protein Urine Glucose (UA) Urine Ketones Urine Blood Urine Nitrate Urine Bilirubin Urine Urobilinogen Ur Leukocyte Esterase Urine RBC (Auto) Urine Microscopic WBC Urine Bacteria Blood Type Blood Type Confirm Antibody Screen Crossmatch IS Only BBK History Checked 04/04/17 04/04/17 04/04/17 05:56 05:56 06:05 WBC RBC Hgb Hct MCV MCH MCHC RDW Plt Count MPV Neut % (Auto) Lymph % (Auto) [place] % (Auto) Eos % (Auto) Baso % (Auto) Neut # Lymph # [place] # Eos # Baso # Neutrophils % (Manual) Lymphocytes % (Manual) Monocytes % (Manual) Platelet Estimate Large Platelets Hypochromasia (manual) Anisocytosis (manual) PT 31.5 H INR 2.7 H APTT 52.5 H pCO2 pO2 45 HCO3 ABG pH ABG Total CO2 ABG O2 Saturation ABG Base Excess [place] Test ABG Potassium VBG pH 7.19 L* VBG pCO2 25 L VBG HCO3 10.9 VBG Total CO2 10.3 L VBG O2 Sat (Calc) 81.2 H VBG Base Excess -17.0 L VBG Potassium 3.9 A-a O2 Difference Glucose 440 H* Lactate 4.4 H* Vent Mode Mechanical Rate FiO2 21.0 Tidal Volume PEEP Crit Value Called To Dr may cameron Crit Value Called By Vinod Crit Value Read Back Y Blood Gas Notified Time 610 Sodium 118.0 L* Potassium Chloride 84.0 L Carbon Dioxide Anion Gap BUN Creatinine Est GFR ( Amer) Est GFR (Non-Af Amer) Random Glucose Hemoglobin A1c Calcium Total Bilirubin AST ALT Alkaline Phosphatase Troponin I Total Protein Albumin Globulin Albumin/Globulin Ratio Triglycerides Cholesterol LDL Cholesterol Direct HDL Cholesterol Arterial Blood Potassium Venous Blood Potassium 3.9 Urine Color Urine Clarity Urine pH Ur Specific [place] Urine Protein Urine Glucose (UA) Urine Ketones Urine Blood Urine Nitrate Urine Bilirubin Urine Urobilinogen Ur Leukocyte Esterase Urine RBC (Auto) Urine Microscopic WBC Urine Bacteria Blood Type A POSITIVE Blood Type Confirm Antibody Screen Negative Crossmatch IS Only See Detail BBK History Checked No verified bt 04/04/17 04/04/17 04/04/17 06:22 07:01 11:02 WBC RBC Hgb Hct MCV MCH MCHC RDW Plt Count MPV Neut % (Auto) Lymph % (Auto) [place] % (Auto) Eos % (Auto) Baso % (Auto) Neut # Lymph # [place] # Eos # Baso # Neutrophils % (Manual) Lymphocytes % (Manual) Monocytes % (Manual) Platelet Estimate Large Platelets Hypochromasia (manual) Anisocytosis (manual) PT INR APTT pCO2 24 L pO2 375 H HCO3 12.3 L ABG pH 7.22 L ABG Total CO2 10.5 L ABG O2 Saturation 100.7 H ABG Base Excess -16.2 L [place] Test Yes ABG Potassium 4.2 VBG pH VBG pCO2 VBG HCO3 VBG Total CO2 VBG O2 Sat (Calc) VBG Base Excess VBG Potassium A-a O2 Difference 308.0 Glucose 90 Lactate 2.9 H Vent Mode Prvc/ac Mechanical Rate 14 FiO2 100.0 Tidal Volume 500 PEEP 5 Crit Value Called To Crit Value Called By Crit Value Read Back Blood Gas Notified Time Sodium 123.0 L Potassium Chloride 96.0 L Carbon Dioxide Anion Gap BUN Creatinine Est GFR ( Amer) Est GFR (Non-Af Amer) Random Glucose Hemoglobin A1c Calcium Total Bilirubin AST ALT Alkaline Phosphatase Troponin I Total Protein Albumin Globulin Albumin/Globulin Ratio Triglycerides Cholesterol LDL Cholesterol Direct HDL Cholesterol Arterial Blood Potassium 4.2 Venous Blood Potassium Urine Color Red Urine Clarity Turbid Urine pH 7.0 Ur Specific [place] 1.013 Urine Protein 100 Urine Glucose (UA) Neg Urine Ketones Negative Urine Blood Large Urine Nitrate Negative Urine Bilirubin Negative Urine Urobilinogen 0.2-1.0 Ur Leukocyte Esterase Mod Urine RBC (Auto) 8009 H Urine Microscopic WBC 718 H Urine Bacteria Few H Blood Type Blood Type Confirm A POSITIVE Antibody Screen Crossmatch IS Only BBK History Checked Assessment & Plan (1) Acute renal failure (ARF) Assessment and Plan: 51yo F. PMHx ovarian CA s/p RODRIGO/BSO (in remission since 2014), SB enteritis s/p ex-lap with [facility]A (01/04/17) which was c/b VAP, ascites with drain placement and post-op PE (IVC filter, now on Xarelto), right hydronephrosis with ureteral stent placement (now removed). p/w acute renal failure with severe metabolic acidosis, oozing blood from oropharynx and possible traumatic castillo placement. Neuro: altered mental status, metabolic encephalopathy. Pulm: intubated for airway protection with encephalopathy, now on PRVC. CV: hypovolemic circulatory shock, started on neosynephrine and levophed. Hem: anemia, with oozing from Xarelto, no loni exanguination, transfusing 2 units PRBC, no current indication for PCC reversal. Renal: acute kidney injury, with metabolic acidosis, initiating dialysis. NS@ 150, Renal - Dr. Longoria. Endo: no acute issues GI: NPO, possible upper GI bleed, secondary to Xarelto, protonix q12h. GI - Dr. Nixon ID: persistent RLL pneumonia, will start Cefepime. HCAP with prolonged hospitalization. DVT proph - SCD's, holding a/c with current bleeding, will start a/c once bleeding stabilizes. GI proph - protonix IV castillo for strict I/O's during acute illness Code status - full code Right femoral TLC (04/04) Right IJ Shiley (04/04) Critical Care Time spent 80 minutes Multi-disciplinary rounds were performed with house staff, nursing, speech therapy, respiratory therapy, pharmacy and nutrition with integrated input from the primary team/attending and other consulting services. The documented time is cumulative and includes review of patient data/exams/labs/chart review and examination of the patient on rounds and throughout the day; time is exclusive of any procedures or teaching time. Status: Acute
[2017-04-04 13:22] VITALS: BMI 29.9
--- NOTE | 2017-04-04 13:49 | CP.PCM.CON ---
History of Present Illness - History of Present Illness History of Present Illness: 51 yo female with recent h/o 1 month hospitaliztion [facility] in December during which she underwent exploratory laparotomy and had hydronephrosis requiring stents (which have since been removed) admitted for renal failure, hypotension and anemia. She had been on Xarelto for PE and has IVC shunt. At home family noted her to be extremely weak since yesterday and brought her to the ER. No active bleeding was noted by family. Oozing seen from mouth and when [place] was introduced. Review of Systems - Review of Systems Systems not reviewed;Unavailable: Intubated Past Patient History - Past Social History Alcohol: None Drugs: Denies - CARDIAC Hx Cardiac Disorders: Yes - PULMONARY Hx Respiratory Disorders: Yes - GASTROINTESTINAL Hx Gastrointestinal Disorders: Yes Hx Bowel Surgery: Yes Other/Comment: small bowel enteritis - GENITOURINARY/GYNECOLOGICAL Hx Genitourinary Disorders: Yes - PSYCHIATRIC Hx Substance Use: No - SURGICAL HISTORY Hx Cholecystectomy: Yes Meds Allergies/Adverse Reactions: Allergies Allergy/AdvReac Type Severity Reaction Status Date / Time cimetidine [From [facility]] Allergy RASH Verified 04/04/17 05:33 nickel Allergy RASH Verified 04/04/17 05:34 Penicillins Allergy RASH Verified 04/04/17 05:33 - Medications Medications: Current Medications Phenylephrine HCl 10 mg/ (Sodium Chloride) 251 mls @ 30.12 mls/hr IV .Q8H20M ODETTE; 20 MCG/MIN PRN Reason: Protocol Last Admin: 04/04/17 12:00 Dose: 110 mcg/min, 165.66 mls/hr Fentanyl Citrate 2,500 mcg/ (Dextrose) 250 mls @ 2.5 mls/hr IV .Q24H ODETTE; 25 MCG/HR PRN Reason: Protocol Last Admin: 04/04/17 13:06 Dose: 25 mcg/hr, 2.5 mls/hr Norepinephrine Bitartrate 4 mg (/ Dextrose) 254 mls @ 9.52 mls/hr IV .Q24H ODETTE ; 2.5 MCG/MIN PRN Reason: Protocol Last Titration: 04/04/17 11:30 Dose: 5 mcg/min, 19.05 mls/hr Cefepime HCl 1 gm/ Sodium (Chloride) 100 mls @ 100 mls/hr IVPB Q8 ODETTE PRN Reason: Protocol Pantoprazole Sodium (Protonix Inj) 40 mg IVP Q12H ODETTE Physical Exam - Eye Exam Eye Exam: PERRL - ENT Exam Additional comments: small amount blood present - Neck Exam Neck exam: Positive for: Normal Inspection - Respiratory Exam Respiratory Exam: Clear to Auscultation Bilateral - Cardiovascular Exam Cardiovascular Exam: REGULAR RHYTHM, +S1, +S2 - GI/Abdominal Exam GI & Abdominal Exam: Normal Bowel Sounds, Soft. absent: Tenderness - Extremities Exam Extremities exam: Positive for: normal inspection Results - Vital Signs Recent Vital Signs: Last Vital Signs Temp 97.7 F 04/04/17 11:50 Pulse 85 04/04/17 12:40 Resp 24 04/04/17 12:40 BP 88/52 L 04/04/17 12:40 Pulse Ox 100 04/04/17 12:40 - Labs Result Diagrams: 04/04/17 05:56 04/04/17 05:56 Labs: Laboratory Results - last 24 hr 04/04/17 04/04/17 04/04/17 05:56 05:56 05:56 WBC 10.5 RBC 3.19 L Hgb 8.6 L Hct 26.0 L MCV 81.5 MCH 27.0 MCHC 33.1 RDW 18.8 H Plt Count 100 L MPV 10.0 Neut % (Auto) 91.0 H Lymph % (Auto) 1.9 L [place] % (Auto) 2.2 Eos % (Auto) 4.8 H Baso % (Auto) 0.1 Neut # 9.6 H Lymph # 0.2 L [place] # 0.2 Eos # 0.5 Baso # 0.0 Neutrophils % (Manual) 88 H Lymphocytes % (Manual) 9 L Monocytes % (Manual) 3 Platelet Estimate Decreased L Large Platelets Present Hypochromasia (manual) Slight Anisocytosis (manual) Slight PT INR APTT pCO2 pO2 HCO3 ABG pH ABG Total CO2 ABG O2 Saturation ABG Base Excess [place] Test ABG Potassium VBG pH VBG pCO2 VBG HCO3 VBG Total CO2 VBG O2 Sat (Calc) VBG Base Excess VBG Potassium A-a O2 Difference Glucose Lactate Vent Mode Mechanical Rate FiO2 Tidal Volume PEEP Crit Value Called To Crit Value Called By Crit Value Read Back Blood Gas Notified Time Sodium 120 L* Potassium 3.9 Chloride 88 L Carbon Dioxide 9 L* Anion Gap 27 H BUN 75 H Creatinine 5.1 H Est GFR ( Amer) 11 Est GFR (Non-Af Amer) 9 Random Glucose 388 H Hemoglobin A1c 5.8 Calcium 5.6 L* Total Bilirubin 1.8 H AST 37 H ALT 32 Alkaline Phosphatase 216 H Troponin I < 0.0120 Total Protein 5.1 L Albumin 2.3 L Globulin 2.8 Albumin/Globulin Ratio 0.8 L Triglycerides 368 H Cholesterol 100 LDL Cholesterol Direct 31 HDL Cholesterol 15 L Arterial Blood Potassium Venous Blood Potassium Urine Color Urine Clarity Urine pH Ur Specific [place] Urine Protein Urine Glucose (UA) Urine Ketones Urine Blood Urine Nitrate Urine Bilirubin Urine Urobilinogen Ur Leukocyte Esterase Urine RBC (Auto) Urine Microscopic WBC Urine Bacteria Blood Type Blood Type Confirm Antibody Screen Crossmatch IS Only BBK History Checked 04/04/17 04/04/17 04/04/17 05:56 05:56 06:05 WBC RBC Hgb Hct MCV MCH MCHC RDW Plt Count MPV Neut % (Auto) Lymph % (Auto) [place] % (Auto) Eos % (Auto) Baso % (Auto) Neut # Lymph # [place] # Eos # Baso # Neutrophils % (Manual) Lymphocytes % (Manual) Monocytes % (Manual) Platelet Estimate Large Platelets Hypochromasia (manual) Anisocytosis (manual) PT 31.5 H INR 2.7 H APTT 52.5 H pCO2 pO2 45 HCO3 ABG pH ABG Total CO2 ABG O2 Saturation ABG Base Excess [place]ingo Test ABG Potassium VBG pH 7.19 L* VBG pCO2 25 L VBG HCO3 10.9 VBG Total CO2 10.3 L VBG O2 Sat (Calc) 81.2 H VBG Base Excess -17.0 L VBG Potassium 3.9 A-a O2 Difference Glucose 440 H* Lactate 4.4 H* Vent Mode Mechanical Rate FiO2 21.0 Tidal Volume PEEP Crit Value Called To Dr may cameron Crit Value Called By 333 Crit Value Read Back Y Blood Gas Notified Time 610 Sodium 118.0 L* Potassium Chloride 84.0 L Carbon Dioxide Anion Gap BUN Creatinine Est GFR ( Amer) Est GFR (Non-Af Amer) Random Glucose Hemoglobin A1c Calcium Total Bilirubin AST ALT Alkaline Phosphatase Troponin I Total Protein Albumin Globulin Albumin/Globulin Ratio Triglycerides Cholesterol LDL Cholesterol Direct HDL Cholesterol Arterial Blood Potassium Venous Blood Potassium 3.9 Urine Color Urine Clarity Urine pH Ur Specific [place] Urine Protein Urine Glucose (UA) Urine Ketones Urine Blood Urine Nitrate Urine Bilirubin Urine Urobilinogen Ur Leukocyte Esterase Urine RBC (Auto) Urine Microscopic WBC Urine Bacteria Blood Type A POSITIVE Blood Type Confirm Antibody Screen Negative Crossmatch IS Only See Detail BBK History Checked No verified bt 04/04/17 04/04/17 04/04/17 06:22 07:01 11:02 WBC RBC Hgb Hct MCV MCH MCHC RDW Plt Count MPV Neut % (Auto) Lymph % (Auto) [place] % (Auto) Eos % (Auto) Baso % (Auto) Neut # Lymph # [place] # Eos # Baso # Neutrophils % (Manual) Lymphocytes % (Manual) Monocytes % (Manual) Platelet Estimate Large Platelets Hypochromasia (manual) Anisocytosis (manual) PT INR APTT pCO2 24 L pO2 375 H HCO3 12.3 L ABG pH 7.22 L ABG Total CO2 10.5 L ABG O2 Saturation 100.7 H ABG Base Excess -16.2 L [place] Test Yes ABG Potassium 4.2 VBG pH VBG pCO2 VBG HCO3 VBG Total CO2 VBG O2 Sat (Calc) VBG Base Excess VBG Potassium A-a O2 Difference 308.0 Glucose 90 Lactate 2.9 H Vent Mode Prvc/ac Mechanical Rate 14 FiO2 100.0 Tidal Volume 500 PEEP 5 Crit Value Called To Crit Value Called By Crit Value Read Back Blood Gas Notified Time Sodium 123.0 L Potassium Chloride 96.0 L Carbon Dioxide Anion Gap BUN Creatinine Est GFR ( Amer) Est GFR (Non-Af Amer) Random Glucose Hemoglobin A1c Calcium Total Bilirubin AST ALT Alkaline Phosphatase Troponin I Total Protein Albumin Globulin Albumin/Globulin Ratio Triglycerides Cholesterol LDL Cholesterol Direct HDL Cholesterol Arterial Blood Potassium 4.2 Venous Blood Potassium Urine Color Red Urine Clarity Turbid Urine pH 7.0 Ur Specific [place] 1.013 Urine Protein 100 Urine Glucose (UA) Neg Urine Ketones Negative Urine Blood Large Urine Nitrate Negative Urine Bilirubin Negative Urine Urobilinogen 0.2-1.0 Ur Leukocyte Esterase Mod Urine RBC (Auto) 8009 H Urine Microscopic WBC 718 H Urine Bacteria Few H Blood Type Blood Type Confirm A POSITIVE Antibody Screen Crossmatch IS Only BBK History Checked Assessment & Plan (1) Anemia Assessment and Plan: No evidence of active GI bleedint at the present time. Agree with GI prophylaxes with PPI. Will follow with you. Request old records from [facility] for better understanding of conditions she had there. Status: Acute
[2017-04-04] MEDS: Cefepime 1 GM in Sodium Chloride 0.9% 100 ML IVPB SCH (18:08)
[2017-04-04] MEDS: Albuterol-Ipratrop 3 mg / 0.5 (3 ml) UD INH PRN (19:23)
--- NOTE | 2017-04-04 22:06 | CARD ---
APPROVED REPORT EKG Measurement Heart [id number] <Conclusion> Normal sinus rhythm Nonspecific ST and T wave abnormality Prolonged QT Abnormal ECG
[2017-04-04] MEDS ORDERED: Sodium Chloride 0.9% 1,000 ML IV SCH (23:00)
[2017-04-05] MEDS: Cefepime 1 GM in Sodium Chloride 0.9% 100 ML IVPB SCH ×2 (00:19→09:41)
[2017-04-05 00:40] LABS: ABG ALLEN TEST YES; ABG MECHANICAL RATE 14; ARTERIAL BLOOD GAS HCO3 15.5 mmol/L (21-28); ARTERIAL BLOOD GAS MODE A/C; ARTERIAL BLOOD GAS O2 CAPACITY 17.6 mL/dL (16-24); ARTERIAL BLOOD GAS O2 CONTENT 17.7 ML/dL (15-23); ARTERIAL BLOOD GAS PH 7.28 (7.35-7.45); ARTERIAL BLOOD GAS PO2 232 mm/Hg (80-100); ARTERIAL BLOOD HGB O2 SAT 97.6 % (95.0-98.0); ATERIAL BLOOD GAS PEEP 5; CARBOXYHEMOGLOBIN 1.5 % (0.5-1.5); HHB -0.5 % (0.0-5.0); METHEMOGLOBIN 1.4 % (0.0-3.0)
[2017-04-05] MEDS: WATER IV SCH ×3 (03:29→22:26)
[2017-04-05] MEDS: DEXTROSE 5% IV SCH ×3 (03:29→22:26)
[2017-04-05] MEDS: NOREPINEPHRINE IV SCH ×3 (03:29→22:26)
[2017-04-05 05:05] LABS: WHITE BLOOD COUNT 8.4 K/uL (4.8-10.8)
[2017-04-05 05:21] LABS: ABG ALLEN TEST YES; ABG MECHANICAL RATE 14; ARTERIAL BLOOD GAS MODE A/C; ARTERIAL BLOOD GAS O2 CAPACITY 17.5 mL/dL (16-24); ARTERIAL BLOOD GAS O2 CONTENT 17.7 ML/dL (15-23); ARTERIAL BLOOD GAS PO2 310 mm/Hg (80-100); ARTERIAL BLOOD HGB O2 SAT 97.6 % (95.0-98.0); ATERIAL BLOOD GAS PEEP 5; CARBOXYHEMOGLOBIN 1.8 % (0.5-1.5); HHB -0.9 % (0.0-5.0); METHEMOGLOBIN 1.5 % (0.0-3.0)
[2017-04-05 05:21] LABS: HEMATOCRIT 35.7 % (34.0-47.0); MEAN CELL VOLUME 81.8 fl (81.0-99.0); MEAN CORPUSCULAR HEMOGLOBIN 27.2 pg (27.0-31.0); MEAN CORPUSCULAR HGB CONC 33.3 g/dL (33.0-37.0); RED CELL DISTRIBUTION WIDTH 17.6 % (11.5-14.5)
[2017-04-05 06:23] LABS: POTASSIUM 2.5 MMOL/L (3.6-5.0)
[2017-04-05] MEDS ORDERED: Sodium Bicarbonate 7.5% (0.9 MEQ/ML) 50ML INJ IV STA (06:27)
--- NOTE | 2017-04-05 06:54 | CP.PCM.PN ---
Subjective - Date & Time of Evaluation Date of Evaluation: 04/05/17 Time of Evaluation: 06:54 - Subjective Subjective: AGB 7.20/ 25/310/12 On FiO2 of 80% Metabolic acidosis - Sodium Bicarbonate 89mEq given and Vent settings changed to FiO2 60%; PRBC 14 ; TV 500 and PEEP of 5 Hypokalemia - Potassium 2.5 - Replaced IV and PO - Maintenance Platelet fell from 100 to 27 - Repeat CBC/PTT; INR; Fibrinogen Objective - Vital Signs/Intake and Output Vital Signs (last 24 hours): Temp Pulse Resp BP Pulse Ox 101 F H 96 H 21 80/47 L 100 04/05/17 00:00 04/05/17 06:00 04/05/17 06:00 04/05/17 06:00 04/05/17 06:00 Intake and Output: 04/04/17 04/05/17 18:59 06:59 Intake Total 2894 2460 Output Total 750 75 Balance 2144 2385 - Medications Medications: Current Medications Albuterol/Ipratropium (Duoneb 3 Mg/0.5 Mg (3 Ml) Ud) 3 ml INH RQ4 PRN PRN Reason: Shortness of Breath Last Admin: 04/04/17 19:23 Dose: 3 ml Phenylephrine HCl 10 mg/ (Sodium Chloride) 251 mls @ 30.12 mls/hr IV .Q8H20M ODETTE; 20 MCG/MIN PRN Reason: Protocol Last Titration: 04/05/17 06:03 Dose: 100 mcg/min, 150.6 mls/hr Fentanyl Citrate 2,500 mcg/ (Dextrose) 250 mls @ 2.5 mls/hr IV .Q24H ODETTE; 25 MCG/HR PRN Reason: Protocol Last Titration: 04/05/17 03:01 Dose: 0 mcg/hr, 0 mls/hr Norepinephrine Bitartrate 4 mg (/ Dextrose) 254 mls @ 9.52 mls/hr IV .Q24H ODETTE ; 2.5 MCG/MIN PRN Reason: Protocol Last Titration: 04/05/17 01:02 Dose: 25 mcg/min, 95.25 mls/hr Cefepime HCl 1 gm/ Sodium (Chloride) 100 mls @ 100 mls/hr IVPB Q8 ODETTE PRN Reason: Protocol Last Admin: 04/05/17 00:19 Dose: 100 mls/hr Sodium Chloride (Sodium Chloride 0.9%) 1,000 mls @ 100 mls/hr IV .Q10H ODETTE Stop: 04/05/17 22:54 Last Admin: 04/04/17 23:08 Dose: 100 mls/hr Norepinephrine Bitartrate 16 (mg/ Dextrose) 1,016 mls @ 95.25 mls/hr IV .[id number] ODETTE; 25 MCG/MIN PRN Reason: Protocol Last Titration: 04/05/17 05:49 Dose: 30 mcg/min, 114.3 mls/hr Potassium Chloride (Potassium Chloride 10 Meq/100 Ml) 100 mls @ 100 mls/hr IVPB Q1 ODETTE Stop: 04/05/17 10:59 Pantoprazole Sodium (Protonix Inj) 40 mg IVP Q12H ODETTE Last Admin: 04/04/17 18:08 Dose: 40 mg Potassium Chloride (Potassium Chloride Oral Soln) 40 meq NG ONCE ONE Stop: 04/05/17 07:01 - Labs Labs: 04/05/17 04:20 04/05/17 04:20 PT 31.5 Seconds (9.8-13.1) H 04/04/17 05:56 INR 2.7 (0.9-1.2) H 04/04/17 05:56 APTT 52.5 Seconds (25.6-37.1) H 04/04/17 05:56
[2017-04-05] MEDS ORDERED: Potassium Chloride 20 mEq/15 ml LIQ UD NG ONE (07:00)
[2017-04-05 07:18] LABS: BASO % 0.2 % (0.0-2.0); EOS # 0.1 K/uL (0.0-0.7); EOS % 1.1 % (0.0-4.0); HEMATOCRIT 32.1 % (34.0-47.0); LYMPH # 1.2 K/uL (1.0-4.3); LYMPH % 13.8 % (20.0-40.0); MEAN CELL VOLUME 79.9 fl (81.0-99.0); MEAN CORPUSCULAR HEMOGLOBIN 27.3 pg (27.0-31.0); MEAN CORPUSCULAR HGB CONC 34.1 g/dL (33.0-37.0); MEAN PLATELET VOLUME 8.8 fl (7.2-11.7); MONO % 0.4 % (0.0-10.0); NEUT # 7.4 K/uL (1.8-7.0); NEUT % 84.5 % (50.0-75.0); RED CELL DISTRIBUTION WIDTH 17.5 % (11.5-14.5); WHITE BLOOD COUNT 8.7 K/uL (4.8-10.8)
[2017-04-05 07:27] LABS: PARTIAL THROMBOPLASTIN TIME 48.8 Seconds (25.6-37.1)
[2017-04-05] MEDS: Potassium CL 10mEq/100ml 100 ML IVPB SCH ×4 (07:36→10:42)
[2017-04-05] MEDS ORDERED: Calcium Gluconate 4.65 mEq/10 ml Inj IV ONE (07:41)
[2017-04-05] MEDS: Albumin Human 25% (12.5 gm/50 ml) IV SCH ×8 (10:59→20:01)
--- NOTE | 2017-04-05 11:31 | CP.CCUPN ---
CCU Subjective - Physician Review Events Since Last Encounter (Free Text): 04/05/17 11:29 patient appears critically ill, responds to verbal commands. CCU Objective - Vital Signs / Intake & Output Vital Signs (Last 4 hours): Vital Signs Temp Pulse Resp BP Pulse Ox 04/05/17 10:52 97 H 27 H 81/41 L 100 04/05/17 10:00 97 H 25 H 90/57 L 100 04/05/17 09:00 96 H 25 H 96/56 L 100 04/05/17 08:00 100 F H 91 H 20 85/56 L 100 Intake and Output (Last 8hrs): Intake & Output 04/04/17 04/05/17 04/05/17 22:59 06:59 14:59 Intake Total 1968 1844 1402 Output Total 750 75 Balance 1218 1769 1402 Intake: IV 1561 1844 902 Intake, Piggyback 107 500 Blood Product 300 Output: Urine 750 75 Urethral (Castillo) 750 75 - Physical Exam Physical Exam Limitations: Positive for: Altered Mental Status Head: Positive for: Atraumatic, Normocephalic Pupils: Positive for: PERRL Extroacular Muscles: Positive for: EOMI Mouth: Positive for: Dry (bloody) Respiratory/Chest: Positive for: Clear to Auscultation, Good Air Exchange Cardiovascular: Positive for: Regular Rate and Rhythm Abdomen: Positive for: Normal Bowel Sounds. Negative for: Tenderness, Distention Psychiatric: Positive for: Alert - Medications Active Medications: Active Medications Generic Name Dose Route Start Last Admin Trade Name Freq PRN Reason Stop Dose Admin Albumin Human 12.5 gm 04/05/17 10:30 04/05/17 10:59 Albumin Human 25% (12.5 Gm/50 Ml) IV 04/05/17 17:31 12.5 gm Q1H ODETTE Administration Albuterol/Ipratropium 3 ml 04/04/17 19:10 04/04/17 19:23 Duoneb 3 Mg/0.5 Mg (3 Ml) Ud INH 3 ml RQ4 PRN Administration Shortness of Breath Phenylephrine HCl 10 mg/ 251 mls @ 30.12 mls/hr 04/04/17 08:45 04/05/17 10:53 Sodium Chloride IV 110 mcg/min .Q8H20M ODETTE 165.66 mls/hr Protocol Titration 20 MCG/MIN Fentanyl Citrate 2,500 mcg/ 250 mls @ 2.5 mls/hr 04/04/17 11:00 04/05/17 03: 01 Dextrose IV 0 mcg/hr .Q24H ODETTE 0 mls/hr Protocol Titration 25 MCG/HR Norepinephrine Bitartrate 4 mg 254 mls @ 9.52 mls/hr 04/04/17 11:15 04/05/17 01:02 / Dextrose IV 25 mcg/min .Q24H ODETTE 95.25 mls/hr Protocol Titration 2.5 MCG/MIN Cefepime HCl 1 gm/ Sodium 100 mls @ 100 mls/hr 04/04/17 17:00 04/05/17 09:41 Chloride IVPB 100 mls/hr Q8 ODETTE Administration Protocol Norepinephrine Bitartrate 16 1,016 mls @ 95.25 mls/hr 04/05/17 03:00 05:49 mg/ Dextrose IV 30 mcg/min .[id number] ODETTE 114.3 mls/hr Protocol Titration 25 MCG/MIN Sodium Bicarbonate 75 meq/ 1,075 mls @ 100 mls/hr 04/05/17 07:45 04/05/17 08: 01 Sodium Chloride IV 04/06/17 07:36 100 mls/hr .[id number] ODETTE Administration Pantoprazole Sodium 40 mg 04/04/17 18:00 04/05/17 08:04 Protonix Inj IVP 40 mg Q12H ODETTE Administration - Patient Studies Lab Studies: Microbiology Studies 04/04/17 06:22 Urine Culture - Preliminary Urine,Castillo Gram Negative Jeremi 04/04/17 06:05 Blood Culture - Preliminary Blood Gram Negative Jeremi Gram Stain - Final 04/04/17 06:30 Blood Culture - Preliminary Blood Gram Negative Jeremi Gram Stain - Final Lab Studies 04/05/17 04/05/17 04/05/17 Range/Units 07:10 07:10 05:18 WBC 8.7 (4.8-10.8) K/uL RBC 4.02 (3.80-5.20) Mil/uL Hgb 10.9 L (12.0-16.0) g/dL Hct 32.1 L (34.0-47.0) % MCV 79.9 L (81.0-99.0) fl MCH 27.3 (27.0-31.0) pg MCHC 34.1 (33.0-37.0) g/dL RDW 17.5 H (11.5-14.5) % Plt Count 23 L* (130-400) K/uL MPV 8.8 (7.2-11.7) fl Neut % (Auto) 84.5 H (50.0-75.0) % Lymph % (Auto) 13.8 L (20.0-40.0) % [place] % (Auto) 0.4 (0.0-10.0) % Eos % (Auto) 1.1 (0.0-4.0) % Baso % (Auto) 0.2 (0.0-2.0) % Neut # 7.4 H (1.8-7.0) K/uL Lymph # 1.2 (1.0-4.3) K/uL [place] # 0.0 (0.0-0.8) K/uL Eos # 0.1 (0.0-0.7) K/uL Baso # 0.0 (0.0-0.2) K/uL PT 22.7 H D (9.8-13.1) Seconds INR 2.0 H D (0.9-1.2) APTT 48.8 H (25.6-37.1) Seconds Fibrinogen 493 H (200-400) mg/dl pCO2 25 L (35-45) mm/Hg pO2 310 H (80-100) mm/Hg HCO3 12.0 L (21-28) mmol/L ABG pH 7.20 L (7.35-7.45) ABG Total CO2 10.6 L (22-28) mmol/L ABG O2 Saturation 100.9 H (95-98) % ABG O2 Content 17.7 (15-23) ML/dL ABG Base Excess -16.6 L (-2.0-3.0) mmol/L ABG Hemoglobin 12.3 (11.7-17.4) g/dL ABG Carboxyhemoglobin 1.8 H (0.5-1.5) % POC ABG HHb (Measured) -0.9 L (0.0-5.0) % ABG Methemoglobin 1.5 (0.0-3.0) % ABG O2 Capacity 17.5 (16-24) mL/dL Domingo Test Yes ABG Potassium (3.6-5.2) mmol/L A-a O2 Difference 229.0 mm/Hg Hgb O2 Saturation 97.6 (95.0-98.0) % Sodium (132-148) mmol/L Chloride (98-107) mmol/L Glucose (65-105) mg/dL Lactate (0.7-2.1) mmol/L Vent Mode A/c Mechanical Rate 14 FiO2 80.0 % Tidal Volume 450 PEEP 5 Potassium (3.6-5.0) MMOL/L Carbon Dioxide (22-30) mmol/L Anion Gap (10-20) BUN (7-17) mg/dl Creatinine (0.7-1.2) mg/dL Est GFR ( Amer) Est GFR (Non-Af Amer) Random Glucose (65-105) mg/dL Hemoglobin A1c (4.2-6.5) % Calcium (8.4-10.2) mg/dL Arterial Blood Potassium (3.6-5.2) mmol/L Hep Bs Antibody (NEGATIVE) Blood Type Antibody Screen Crossmatch IS Only BBK History Checked 04/05/17 04/05/17 04/04/17 Range/Units 04:20 04:20 16:34 WBC 8.4 (4.8-10.8) K/uL RBC 4.37 (3.80-5.20) Mil/uL Hgb 11.9 L D (12.0-16.0) g/dL Hct 35.7 (34.0-47.0) % MCV 81.8 (81.0-99.0) fl MCH 27.2 (27.0-31.0) pg MCHC 33.3 (33.0-37.0) g/dL RDW 17.6 H (11.5-14.5) % Plt Count 27 L* D (130-400) K/uL MPV (7.2-11.7) fl Neut % (Auto) (50.0-75.0) % Lymph % (Auto) (20.0-40.0) % [place] % (Auto) (0.0-10.0) % Eos % (Auto) (0.0-4.0) % Baso % (Auto) (0.0-2.0) % Neut # (1.8-7.0) K/uL Lymph # (1.0-4.3) K/uL [place] # (0.0-0.8) K/uL Eos # (0.0-0.7) K/uL Baso # (0.0-0.2) K/uL PT (9.8-13.1) Seconds INR (0.9-1.2) APTT (25.6-37.1) Seconds Fibrinogen (200-400) mg/dl pCO2 (35-45) mm/Hg pO2 (80-100) mm/Hg HCO3 (21-28) mmol/L ABG pH (7.35-7.45) ABG Total CO2 (22-28) mmol/L ABG O2 Saturation (95-98) % ABG O2 Content (15-23) ML/dL ABG Base Excess (-2.0-3.0) mmol/L ABG Hemoglobin (11.7-17.4) g/dL ABG Carboxyhemoglobin (0.5-1.5) % POC ABG HHb (Measured) (0.0-5.0) % ABG Methemoglobin (0.0-3.0) % ABG O2 Capacity (16-24) mL/dL Domingo Test ABG Potassium (3.6-5.2) mmol/L A-a O2 Difference mm/Hg Hgb O2 Saturation (95.0-98.0) % Sodium 129 L (132-148) mmol/L Chloride 100 (98-107) mmol/L Glucose (65-105) mg/dL Lactate (0.7-2.1) mmol/L Vent Mode Mechanical Rate FiO2 % Tidal Volume PEEP Potassium 2.5 L* D (3.6-5.0) MMOL/L Carbon Dioxide 12 L (22-30) mmol/L Anion Gap 20 (10-20) BUN 32 H (7-17) mg/dl Creatinine 2.6 H (0.7-1.2) mg/dL Est GFR ( Amer) 23 Est GFR (Non-Af Amer) 19 Random Glucose 115 H (65-105) mg/dL Hemoglobin A1c (4.2-6.5) % Calcium 6.0 L* (8.4-10.2) mg/dL Arterial Blood Potassium (3.6-5.2) mmol/L Hep Bs Antibody Negative (NEGATIVE) Blood Type Antibody Screen Crossmatch IS Only BBK History Checked 04/04/17 04/04/17 04/04/17 Range/Units 11:02 05:56 05:56 WBC (4.8-10.8) K/uL RBC (3.80-5.20) Mil/uL Hgb (12.0-16.0) g/dL Hct (34.0-47.0) % MCV (81.0-99.0) fl MCH (27.0-31.0) pg MCHC (33.0-37.0) g/dL RDW (11.5-14.5) % Plt Count (130-400) K/uL MPV (7.2-11.7) fl Neut % (Auto) (50.0-75.0) % Lymph % (Auto) (20.0-40.0) % [place] % (Auto) (0.0-10.0) % Eos % (Auto) (0.0-4.0) % Baso % (Auto) (0.0-2.0) % Neut # (1.8-7.0) K/uL Lymph # (1.0-4.3) K/uL [place] # (0.0-0.8) K/uL Eos # (0.0-0.7) K/uL Baso # (0.0-0.2) K/uL PT (9.8-13.1) Seconds INR (0.9-1.2) APTT (25.6-37.1) Seconds Fibrinogen (200-400) mg/dl pCO2 24 L (35-45) mm/Hg pO2 375 H (80-100) mm/Hg HCO3 12.3 L (21-28) mmol/L ABG pH 7.22 L (7.35-7.45) ABG Total CO2 10.5 L (22-28) mmol/L ABG O2 Saturation 100.7 H (95-98) % ABG O2 Content (15-23) ML/dL ABG Base Excess -16.2 L (-2.0-3.0) mmol/L ABG Hemoglobin (11.7-17.4) g/dL ABG Carboxyhemoglobin (0.5-1.5) % POC ABG HHb (Measured) (0.0-5.0) % ABG Methemoglobin (0.0-3.0) % ABG O2 Capacity (16-24) mL/dL Domingo Test Yes ABG Potassium 4.2 (3.6-5.2) mmol/L A-a O2 Difference 308.0 mm/Hg Hgb O2 Saturation (95.0-98.0) % Sodium 123.0 L (132-148) mmol/L Chloride 96.0 L (98-107) mmol/L Glucose 90 (65-105) mg/dL Lactate 2.9 H (0.7-2.1) mmol/L Vent Mode Prvc/ac Mechanical Rate 14 FiO2 100.0 % Tidal Volume 500 PEEP 5 Potassium (3.6-5.0) MMOL/L Carbon Dioxide (22-30) mmol/L Anion Gap (10-20) BUN (7-17) mg/dl Creatinine (0.7-1.2) mg/dL Est GFR ( Amer) Est GFR (Non-Af Amer) Random Glucose (65-105) mg/dL Hemoglobin A1c 5.8 (4.2-6.5) % Calcium (8.4-10.2) mg/dL Arterial Blood Potassium 4.2 (3.6-5.2) mmol/L Hep Bs Antibody (NEGATIVE) Blood Type A POSITIVE Antibody Screen Negative Crossmatch IS Only See Detail BBK History Checked No verified bt 04/04/17 Range/Units 00:34 WBC (4.8-10.8) K/uL RBC (3.80-5.20) Mil/uL Hgb (12.0-16.0) g/dL Hct (34.0-47.0) % MCV (81.0-99.0) fl MCH (27.0-31.0) pg MCHC (33.0-37.0) g/dL RDW (11.5-14.5) % Plt Count (130-400) K/uL MPV (7.2-11.7) fl Neut % (Auto) (50.0-75.0) % Lymph % (Auto) (20.0-40.0) % [place] % (Auto) (0.0-10.0) % Eos % (Auto) (0.0-4.0) % Baso % (Auto) (0.0-2.0) % Neut # (1.8-7.0) K/uL Lymph # (1.0-4.3) K/uL [place] # (0.0-0.8) K/uL Eos # (0.0-0.7) K/uL Baso # (0.0-0.2) K/uL PT (9.8-13.1) Seconds INR (0.9-1.2) APTT (25.6-37.1) Seconds Fibrinogen (200-400) mg/dl pCO2 28 L (35-45) mm/Hg pO2 232 H (80-100) mm/Hg HCO3 15.5 L (21-28) mmol/L ABG pH 7.28 L (7.35-7.45) ABG Total CO2 14.1 L (22-28) mmol/L ABG O2 Saturation 100.5 H (95-98) % ABG O2 Content 17.7 (15-23) ML/dL ABG Base Excess -12.1 L (-2.0-3.0) mmol/L ABG Hemoglobin 12.5 (11.7-17.4) g/dL ABG Carboxyhemoglobin 1.5 (0.5-1.5) % POC ABG HHb (Measured) -0.5 L (0.0-5.0) % ABG Methemoglobin 1.4 (0.0-3.0) % ABG O2 Capacity 17.6 (16-24) mL/dL [place]ingo Test Yes ABG Potassium (3.6-5.2) mmol/L A-a O2 Difference 303.0 mm/Hg Hgb O2 Saturation 97.6 (95.0-98.0) % Sodium (132-148) mmol/L Chloride (98-107) mmol/L Glucose (65-105) mg/dL Lactate (0.7-2.1) mmol/L Vent Mode A/c Mechanical Rate 14 FiO2 80.0 % Tidal Volume 450 PEEP 5 Potassium (3.6-5.0) MMOL/L Carbon Dioxide (22-30) mmol/L Anion Gap (10-20) BUN (7-17) mg/dl Creatinine (0.7-1.2) mg/dL Est GFR ( Amer) Est GFR (Non-Af Amer) Random Glucose (65-105) mg/dL Hemoglobin A1c (4.2-6.5) % Calcium (8.4-10.2) mg/dL Arterial Blood Potassium (3.6-5.2) mmol/L Hep Bs Antibody (NEGATIVE) Blood Type Antibody Screen Crossmatch IS Only BBK History Checked Laboratory Results - last 24 hr 04/04/17 04/04/17 04/04/17 00:34 05:56 05:56 WBC RBC Hgb Hct MCV MCH MCHC RDW Plt Count MPV Neut % (Auto) Lymph % (Auto) [place] % (Auto) Eos % (Auto) Baso % (Auto) Neut # Lymph # [place] # Eos # Baso # PT INR APTT Fibrinogen pCO2 28 L pO2 232 H HCO3 15.5 L ABG pH 7.28 L ABG Total CO2 14.1 L ABG O2 Saturation 100.5 H ABG O2 Content 17.7 ABG Base Excess -12.1 L ABG Hemoglobin 12.5 ABG Carboxyhemoglobin 1.5 POC ABG HHb (Measured) -0.5 L ABG Methemoglobin 1.4 ABG O2 Capacity 17.6 [place] Test Yes ABG Potassium A-a O2 Difference 303.0 Hgb O2 Saturation 97.6 Sodium Chloride Glucose Lactate Vent Mode A/c Mechanical Rate 14 FiO2 80.0 Tidal Volume 450 PEEP 5 Potassium Carbon Dioxide Anion Gap BUN Creatinine Est GFR ( Amer) Est GFR (Non-Af Amer) Random Glucose Hemoglobin A1c 5.8 Calcium Arterial Blood Potassium Hep Bs Antibody Blood Type A POSITIVE Antibody Screen Negative Crossmatch IS Only See Detail BBK History Checked No verified bt 04/04/17 04/04/17 04/05/17 11:02 16:34 04:20 WBC 8.4 RBC 4.37 Hgb 11.9 L D Hct 35.7 MCV 81.8 MCH 27.2 MCHC 33.3 RDW 17.6 H Plt Count 27 L* D MPV Neut % (Auto) Lymph % (Auto) [place] % (Auto) Eos % (Auto) Baso % (Auto) Neut # Lymph # [place] # Eos # Baso # PT INR APTT Fibrinogen pCO2 24 L pO2 375 H HCO3 12.3 L ABG pH 7.22 L ABG Total CO2 10.5 L ABG O2 Saturation 100.7 H ABG O2 Content ABG Base Excess -16.2 L ABG Hemoglobin ABG Carboxyhemoglobin POC ABG HHb (Measured) ABG Methemoglobin ABG O2 Capacity [place] Test Yes ABG Potassium 4.2 A-a O2 Difference 308.0 Hgb O2 Saturation Sodium 123.0 L Chloride 96.0 L Glucose 90 Lactate 2.9 H Vent Mode Prvc/ac Mechanical Rate 14 FiO2 100.0 Tidal Volume 500 PEEP 5 Potassium Carbon Dioxide Anion Gap BUN Creatinine Est GFR ( Amer) Est GFR (Non-Af Amer) Random Glucose Hemoglobin A1c Calcium Arterial Blood Potassium 4.2 Hep Bs Antibody Negative Blood Type Antibody Screen Crossmatch IS Only BBK History Checked 04/05/17 04/05/17 04/05/17 04:20 05:18 07:10 WBC 8.7 RBC 4.02 Hgb 10.9 L Hct 32.1 L MCV 79.9 L MCH 27.3 MCHC 34.1 RDW 17.5 H Plt Count 23 L* MPV 8.8 Neut % (Auto) 84.5 H Lymph % (Auto) 13.8 L [place] % (Auto) 0.4 Eos % (Auto) 1.1 Baso % (Auto) 0.2 Neut # 7.4 H Lymph # 1.2 [place] # 0.0 Eos # 0.1 Baso # 0.0 PT INR APTT Fibrinogen pCO2 25 L pO2 310 H HCO3 12.0 L ABG pH 7.20 L ABG Total CO2 10.6 L ABG O2 Saturation 100.9 H ABG O2 Content 17.7 ABG Base Excess -16.6 L ABG Hemoglobin 12.3 ABG Carboxyhemoglobin 1.8 H POC ABG HHb (Measured) -0.9 L ABG Methemoglobin 1.5 ABG O2 Capacity 17.5 [place] Test Yes ABG Potassium A-a O2 Difference 229.0 Hgb O2 Saturation 97.6 Sodium 129 L Chloride 100 Glucose Lactate Vent Mode A/c Mechanical Rate 14 FiO2 80.0 Tidal Volume 450 PEEP 5 Potassium 2.5 L* D Carbon Dioxide 12 L Anion Gap 20 BUN 32 H Creatinine 2.6 H Est GFR ( Amer) 23 Est GFR (Non-Af Amer) 19 Random Glucose 115 H Hemoglobin A1c Calcium 6.0 L* Arterial Blood Potassium Hep Bs Antibody Blood Type Antibody Screen Crossmatch IS Only BBK History Checked 04/05/17 07:10 WBC RBC Hgb Hct MCV MCH MCHC RDW Plt Count MPV Neut % (Auto) Lymph % (Auto) [place] % (Auto) Eos % (Auto) Baso % (Auto) Neut # Lymph # [place] # Eos # Baso # PT 22.7 H D INR 2.0 H D APTT 48.8 H Fibrinogen 493 H pCO2 pO2 HCO3 ABG pH ABG Total CO2 ABG O2 Saturation ABG O2 Content ABG Base Excess ABG Hemoglobin ABG Carboxyhemoglobin POC ABG HHb (Measured) ABG Methemoglobin ABG O2 Capacity [place] Test ABG Potassium A-a O2 Difference Hgb O2 Saturation Sodium Chloride Glucose Lactate Vent Mode Mechanical Rate FiO2 Tidal Volume PEEP Potassium Carbon Dioxide Anion Gap BUN Creatinine Est GFR ( Amer) Est GFR (Non-Af Amer) Random Glucose Hemoglobin A1c Calcium Arterial Blood Potassium Hep Bs Antibody Blood Type Antibody Screen Crossmatch IS Only BBK History Checked Fingerstick Blood Sugar Results: 221 Review of Systems - Review of Systems Systems not reviewed;Unavailable: Altered Mental Status Critical Care Progress Note - Ventilator Checklist Head of Bed 30 Degrees: Yes Daily Sedation Vacation: Yes Daily Assessment of Readiness to Wean: Yes Daily Spontaneous Breathing Trial: Yes PUD Prophalyxis: Yes DVT Prophylaxis: Yes Oral Care with Chlorhexidine Gluconate {CHG}: Yes Assessment/Plan (1) Acute renal failure (ARF) Assessment and plan: 51yo F. PMHx ovarian CA s/p RODRIGO/BSO (in remission since 2014), SB enteritis s/p ex-lap with WILNER (01/04/17) which was c/b VAP, ascites with drain placement and post-op PE (IVC filter, now on Xarelto), right hydronephrosis with ureteral stent placement (now removed). p/w acute renal failure with severe metabolic acidosis, oozing blood from oropharynx and possible traumatic castillo placement. Neuro: altered mental status, metabolic encephalopathy. Pulm: intubated for airway protection with encephalopathy, now on PRVC. not tolerating PS trials yet. CV: hypovolemic circulatory shock, started on neosynephrine and levophed. started albumin drip, to first titrate off valentin. Hem: anemia, with oozing from Xarelto, no loni exanguination, transfused 2 units PRBC (04/04). Now has severe thrombocytopenia, probably secondary to sepsis. Transfusing 1 donor unit of platelets. Trending fibrinogen, r/o DIC. Renal: acute kidney injury, with metabolic acidosis, initiating dialysis (04/04 and 04/05). Patient still making urine, creatinine downtrending. 1/2NS+75meq SB@100. Renal - Dr. Longoria. Endo: no acute issues GI: NPO, possible upper GI bleed, secondary to Xarelto, protonix q12h. Starting trophic feeds, Jevity@20. GI - Dr. Nixon ID: septic shock from gram negative bacteremia continue Cefepime. UTI with sepsis and possible HCAP. Will broaden to Meropenem if ESBL on cultures, speciation pending. DVT proph - SCD's, holding a/c with current oropharyngeal bleeding and severe thrombocytopenia GI proph - protonix IV castillo for strict I/O's during acute illness Code status - full code Right femoral TLC (04/04) Left IJ Shiley (04/04) Critical Care Time spent 40 minutes Multi-disciplinary rounds were performed with house staff, nursing, speech therapy, respiratory therapy, pharmacy and nutrition with integrated input from the primary team/attending and other consulting services. The documented time is cumulative and includes review of patient data/exams/labs/chart review and examination of the patient on rounds and throughout the day; time is exclusive of any procedures or teaching time. Current Visit: Yes Status: Acute Priority: High
--- NOTE | 2017-04-05 11:51 | RAD ---
HISTORY: ETT placement COMPARISON: April 04, 2017. FINDINGS: LUNGS: No active pulmonary disease. PLEURA: No significant pleural effusion identified, no pneumothorax apparent. CARDIOVASCULAR: No radiographic findings to suggest acute or significant cardiovascular disease. Venous access catheter in satisfactory position. Catheter inserted via right internal jugular approach. Tip at the cavoatrial junction. OSSEOUS STRUCTURES: No significant abnormalities. VISUALIZED UPPER ABDOMEN: Normal. OTHER FINDINGS: Satisfactory and stable position of endotracheal tube. IMPRESSION: No significant interval change compared to the prior examination(s). No adverse findings following placement venous access catheter.
--- NOTE | 2017-04-05 12:08 | CP.PCM.PN ---
Subjective - Date & Time of Evaluation Date of Evaluation: 04/05/17 Time of Evaluation: 12:06 - Subjective Subjective: Patient remained intubated the family at the bedside multiple people. Patient intubated Responding to some command. Vital sign noted was blood pressure is still low patient on vasopressors. Objective - Vital Signs/Intake and Output Vital Signs (last 24 hours): Temp Pulse Resp BP Pulse Ox 100 F H 96 H 28 H 86/53 L 100 04/05/17 08:00 04/05/17 11:50 04/05/17 11:30 04/05/17 11:50 04/05/17 11:30 Intake and Output: 04/05/17 04/05/17 06:59 18:59 Intake Total 2460 1652 Output Total 75 Balance 2385 1652 - Medications Medications: Current Medications Albumin Human (Albumin Human 25% (12.5 Gm/50 Ml)) 12.5 gm IV Q1H ODETTE Stop: 04/05/17 17:31 Last Admin: 04/05/17 11:49 Dose: 12.5 gm Albuterol/Ipratropium (Duoneb 3 Mg/0.5 Mg (3 Ml) Ud) 3 ml INH RQ4 PRN PRN Reason: Shortness of Breath Last Admin: 04/04/17 19:23 Dose: 3 ml Phenylephrine HCl 10 mg/ (Sodium Chloride) 251 mls @ 30.12 mls/hr IV .Q8H20M ODETTE; 20 MCG/MIN PRN Reason: Protocol Last Admin: 04/05/17 11:49 Dose: 100 mcg/min, 150.6 mls/hr Fentanyl Citrate 2,500 mcg/ (Dextrose) 250 mls @ 2.5 mls/hr IV .Q24H ODETTE; 25 MCG/HR PRN Reason: Protocol Last Titration: 04/05/17 03:01 Dose: 0 mcg/hr, 0 mls/hr Norepinephrine Bitartrate 4 mg (/ Dextrose) 254 mls @ 9.52 mls/hr IV .Q24H ODETTE ; 2.5 MCG/MIN PRN Reason: Protocol Last Titration: 04/05/17 01:02 Dose: 25 mcg/min, 95.25 mls/hr Cefepime HCl 1 gm/ Sodium (Chloride) 100 mls @ 100 mls/hr IVPB Q8 ODETTE PRN Reason: Protocol Last Admin: 04/05/17 09:41 Dose: 100 mls/hr Norepinephrine Bitartrate 16 (mg/ Dextrose) 1,016 mls @ 95.25 mls/hr IV .[id number] ODETTE; 25 MCG/MIN PRN Reason: Protocol Last Titration: 04/05/17 05:49 Dose: 30 mcg/min, 114.3 mls/hr Sodium Bicarbonate 75 meq/ (Sodium Chloride) 1,075 mls @ 100 mls/hr IV .[id number] ODETTE Stop: 04/06/17 07:36 Last Admin: 04/05/17 08:01 Dose: 100 mls/hr Pantoprazole Sodium (Protonix Inj) 40 mg IVP Q12H ODETTE Last Admin: 04/05/17 08:04 Dose: 40 mg - Labs Labs: 04/05/17 07:10 04/05/17 04:20 PT 22.7 Seconds (9.8-13.1) H D 04/05/17 07:10 INR 2.0 (0.9-1.2) H D 04/05/17 07:10 APTT 48.8 Seconds (25.6-37.1) H 04/05/17 07:10 - Constitutional Appears: In Acute Distress - Eye Exam Eye Exam: Conjunctival injection - ENT Exam ENT Exam: Mucous Membranes Moist - Respiratory Exam Respiratory Exam: Rhonchi. absent: Chest Wall Tenderness - Cardiovascular Exam Cardiovascular Exam: absent: JVD, Rubs - GI/Abdominal Exam GI & Abdominal Exam: Soft, Normal Bowel Sounds - Extremities Exam Extremities Exam: absent: Calf Tenderness - Back Exam Back Exam: absent: CVA tenderness (L), CVA tenderness (R) - Neurological Exam Neurological Exam: Altered Assessment and Plan (1) Acute renal injury due to circulatory failure Assessment & Plan: Acute kidney injury related to multifactorial including sepsis and circulatory failure. She had dialysis for about 2 hours yesterday Serum sodium has gone up from 120-129 Post hemodialysis Patient is remain with severe metabolic acidosis receiving bicarbonate IV drip. Severe hypokalemia patient receiving intravenous supplemental potassium and chloride also hours changes potassium bath to 4 mEq on dialysis. Which on the way to be started anytime soon. Thrombocytopenia noted Prognosis remain critical Patient is still hypotensive on vasopressors. Status: Acute (2) Altered mental status Status: Acute (3) GI bleed Status: Acute (4) Hypotension Status: Acute
--- NOTE | 2017-04-05 15:08 | PQF GENQUE ---
Dr Cornejo, [employer] [place] [employer] [place] documented the following information with no mention of this diagnosis in your documentation. Please indicate in your next progress note your agreement with art consultant or provide clarification that this diagnosis is not a current condition. Diagnosis: Respiratory Failure Documented by: ER MD Location: ER record Diagnosis: Respiratory Failure Documented by: Renal MD Location: 04/04 Consult OR: Disagree OR: Other explanation of clinical finding ER note: Intubation: Indication(s): : Respiratory failure, Hemodynamically unstable H and P: dxs. include: Respiratory distress: Acute: continue ventilatory support 04/04: [place] [facility] note: Pulm: intubated for airway protection with encephalopathy, now on PRVC. not tolerating PS trials yet. This form is a permanent part of the medical record Clarification of your documentation is requested to better reflect the severity of illness and intensity of treatment of your patient. Indicators present [] Specify: [] [] Specify: [] [] Specify: [] [] Specify: [] Location in the medical record that reflects the above clinical findings: [] Treatment Provided: [] PHYSICIAN'S RESPONSE Based on your medical judgment of the clinical indicators outlined above please clarify the following: [] Practitioner response [] If unable to determine, please check the box, sign and date. Present On Admission (POA) Indicator: [] Present at the time of admission [] Not present at the time of admission [] Clinically Undetermined In responding to this query, please exercise your independent professional judgment. The fact that a question is asked does not imply that any particular answer is desired or expected. Thank you for your clarification on this documentation. If you have any questions please call. * Thank you, Radha Berumen RN ext. #[phone] [id number]
--- NOTE | 2017-04-05 15:19 | CP.PCM.PN ---
Subjective - Date & Time of Evaluation Date of Evaluation: 04/05/17 Time of Evaluation: 08:45 - Subjective Subjective: Patient responds to commands. improved blood pressure Objective - Vital Signs/Intake and Output Vital Signs (last 24 hours): Temp Pulse Resp BP Pulse Ox 98.5 F 96 H 27 H 91/58 L 100 04/05/17 12:45 04/05/17 15:00 04/05/17 15:00 04/05/17 15:00 04/05/17 15:00 Intake and Output: 04/05/17 04/05/17 06:59 18:59 Intake Total 2460 3027 Output Total 75 Balance 2385 3027 - Medications Medications: Current Medications Albumin Human (Albumin Human 25% (12.5 Gm/50 Ml)) 12.5 gm IV Q1H ODETTE Stop: 04/05/17 17:31 Last Admin: 04/05/17 14:38 Dose: 12.5 gm Albuterol/Ipratropium (Duoneb 3 Mg/0.5 Mg (3 Ml) Ud) 3 ml INH RQ4 PRN PRN Reason: Shortness of Breath Last Admin: 04/04/17 19:23 Dose: 3 ml Phenylephrine HCl 10 mg/ (Sodium Chloride) 251 mls @ 30.12 mls/hr IV .Q8H20M ODETTE; 20 MCG/MIN PRN Reason: Protocol Last Titration: 04/05/17 14:05 Dose: 90 mcg/min, 135.54 mls/hr Fentanyl Citrate 2,500 mcg/ (Dextrose) 250 mls @ 2.5 mls/hr IV .Q24H ODETTE; 25 MCG/HR PRN Reason: Protocol Last Titration: 04/05/17 03:01 Dose: 0 mcg/hr, 0 mls/hr Cefepime HCl 1 gm/ Sodium (Chloride) 100 mls @ 100 mls/hr IVPB Q8 ODETTE PRN Reason: Protocol Last Admin: 04/05/17 09:41 Dose: 100 mls/hr Norepinephrine Bitartrate 16 (mg/ Dextrose) 1,016 mls @ 95.25 mls/hr IV .[id number] ODETTE; 25 MCG/MIN PRN Reason: Protocol Last Admin: 04/05/17 13:10 Dose: 30 mcg/min, 114.3 mls/hr Sodium Bicarbonate 75 meq/ (Sodium Chloride) 1,075 mls @ 100 mls/hr IV .[id number] [facility] Stop: 04/06/17 07:36 Last Admin: 04/05/17 08:01 Dose: 100 mls/hr Pantoprazole Sodium (Protonix Inj) 40 mg IVP Q12H [facility] Last Admin: 04/05/17 08:04 Dose: 40 mg - Labs Labs: 04/05/17 07:10 04/05/17 04:20 PT 22.7 Seconds (9.8-13.1) H D 04/05/17 07:10 INR 2.0 (0.9-1.2) H D 04/05/17 07:10 APTT 48.8 Seconds (25.6-37.1) H 04/05/17 07:10 - Head Exam Head Exam: NORMOCEPHALIC - Eye Exam Eye Exam: EOMI - ENT Exam ENT Exam: TM's Normal Bilaterally - Respiratory Exam Respiratory Exam: NORMAL BREATHING PATTERN - Cardiovascular Exam Cardiovascular Exam: REGULAR RHYTHM - GI/Abdominal Exam GI & Abdominal Exam: Soft. absent: Tenderness Assessment and Plan (1) Anemia Assessment & Plan: No active bleeding present. Hgb and blood pressure better. Albumin has dropped and patient receiving IV albumin. Jevity feedings started. Platelets have fallen. Status: Acute
--- NOTE | 2017-04-05 16:24 | CP.PCM.PN ---
Subjective - Date & Time of Evaluation Date of Evaluation: 04/05/17 Time of Evaluation: 09:00 - Subjective Subjective: Respiratory Distress. open eyes to tactil stimuli , intubated Objective - Vital Signs/Intake and Output Vital Signs (last 24 hours): Temp Pulse Resp BP Pulse Ox 98.5 F 95 H 28 H 107/66 100 04/05/17 12:45 04/05/17 16:09 04/05/17 16:09 04/05/17 16:09 04/05/17 16:09 Intake and Output: 04/05/17 04/05/17 06:59 18:59 Intake Total 2460 3578 Output Total 75 Balance 2385 3578 - Medications Medications: Current Medications Albumin Human (Albumin Human 25% (12.5 Gm/50 Ml)) 12.5 gm IV Q1H ODETTE Stop: 04/05/17 17:31 Last Admin: 04/05/17 15:42 Dose: 12.5 gm Albuterol/Ipratropium (Duoneb 3 Mg/0.5 Mg (3 Ml) Ud) 3 ml INH RQ4 PRN PRN Reason: Shortness of Breath Last Admin: 04/04/17 19:23 Dose: 3 ml Phenylephrine HCl 10 mg/ (Sodium Chloride) 251 mls @ 30.12 mls/hr IV .Q8H20M ODETTE; 20 MCG/MIN PRN Reason: Protocol Last Titration: 04/05/17 16:19 Dose: 60 mcg/min, 90.36 mls/hr Fentanyl Citrate 2,500 mcg/ (Dextrose) 250 mls @ 2.5 mls/hr IV .Q24H ODTETE; 25 MCG/HR PRN Reason: Protocol Last Titration: 04/05/17 03:01 Dose: 0 mcg/hr, 0 mls/hr Cefepime HCl 1 gm/ Sodium (Chloride) 100 mls @ 100 mls/hr IVPB Q8 ODETTE PRN Reason: Protocol Last Admin: 04/05/17 09:41 Dose: 100 mls/hr Norepinephrine Bitartrate 16 (mg/ Dextrose) 1,016 mls @ 95.25 mls/hr IV .[id number] ODETTE; 25 MCG/MIN PRN Reason: Protocol Last Admin: 04/05/17 13:10 Dose: 30 mcg/min, 114.3 mls/hr Sodium Bicarbonate 75 meq/ (Sodium Chloride) 1,075 mls @ 100 mls/hr IV .[id number] [facility] Stop: 04/06/17 07:36 Last Admin: 04/05/17 08:01 Dose: 100 mls/hr Pantoprazole Sodium (Protonix Inj) 40 mg IVP Q12H [facility] Last Admin: 04/05/17 08:04 Dose: 40 mg - Labs Labs: 04/05/17 07:10 04/05/17 04:20 PT 22.7 Seconds (9.8-13.1) H D 04/05/17 07:10 INR 2.0 (0.9-1.2) H D 04/05/17 07:10 APTT 48.8 Seconds (25.6-37.1) H 04/05/17 07:10 - Constitutional Appears: Chronically Ill - Head Exam Head Exam: NORMAL INSPECTION - Eye Exam Additional comments: sluggish reaction to light - ENT Exam Additional comments: Intubated - Neck Exam Neck Exam: Normal Inspection - Respiratory Exam Respiratory Exam: Decreased Breath Sounds (b/l) - Cardiovascular Exam Cardiovascular Exam: REGULAR RHYTHM - GI/Abdominal Exam GI & Abdominal Exam: Soft, Normal Bowel Sounds Additional comments: open surgical wound mid lower abdomen , yellow sloughy base - Exam Additional comments: Overton Cath - Extremities Exam Extremities Exam: Pedal Edema (b/l) - Back Exam Additional comments: Skin tear R middle back. - Neurological Exam Additional comments: Intubated, minimal response to tactil stimuli - Skin Skin Exam: Warm Assessment and Plan (1) Acute respiratory failure Status: Acute (2) Shock Status: Deleted (3) Pneumonia Status: Acute (4) Acute renal failure (ARF) Status: Acute (5) Anemia Status: Acute (6) Hematuria, gross Status: Deleted (7) Thrombocytopenia Status: Resolved (8) History of pulmonary embolus (PE) Status: Acute - Assessment and Plan (Free Text) Plan: Ventilatory support , Atb , Vasopresors, dialysis ICU Time: 35 min.
[2017-04-05] MEDS ORDERED: AMIKACIN SULFATE IVPB ONE (20:00)
[2017-04-05] MEDS ORDERED: SODIUM CHLORIDE 0.9% IVPB ONE (20:00)
[2017-04-05 20:50] LABS: CALCIUM 6.2 mg/dL (8.4-10.2)
[2017-04-05] MEDS ORDERED: Potassium Chloride 20 mEq ER Tab PO ONE (22:33)
--- NOTE | 2017-04-06 04:42 | CON ---
INFECTIOUS DISEASE CONSULTATION LOCATION: The patient is in room 423, Bed 1. HISTORY OF PRESENT ILLNESS: She is a 51-year-old female, who has an extensive history. ID on consult for gram-negative bacteremia. The patient is presently in the Intensive Care Unit, intubated, and , also is being dialyzed. She initially came to the emergency room with diffuse bleeding and gross hematuria, and as stated before, she has a quite complicated past medical/surgical history. The patient's records from [facility] are not yet complete as there is a mention that she might have had pseudomonas in her blood and also Klebsiella, but there were no culture reports sent with it. Hopefully we might obtain those results. She had an extensive hospital course which I reviewed in detail. PAST MEDICAL HISTORY: Includes a cervical cancer, which apparently has been in remission; pulmonary embolism, she has an IVC filter; and also small bowel enteritis. Past history of cholecystectomy. She had had an abdominal exploration for small bowel enteritis and had a knee replacement in 07/2016. In regards to the cervical cancer, she has had a hysterectomy. SOCIAL HISTORY: Not a drinker, nor does she use drugs. She does smoke cigarettes however. PHYSICAL EXAMINATION: GENERAL: The patient is intubated and receiving dialysis, obviously in distress. ENT: Intubated. NECK: Supple. LUNGS: She has rhonchi bilaterally, but that is listening while on the respirator. ABDOMEN: Positive bowel sounds with guarding which is difficult to evaluate. EXTREMITIES: She has pedal edema, and has upper extremity edema. LABORATORY DATA: Include at present, platelets are down to 23. She has a white count of 8.7, hemoglobin of 10.9, sodium 129 which is post hemodialysis, and a creatinine of 5.1 on admission, is presently 2.6 post dialysis. Urine has over 8000 rbc's and over 700 wbc's. Blood cultures show gram-negative rods. Called the Microbiology Lab at [facility] if they had a documentation of the bacteria, and they said that they would not have it until at least tomorrow. DIAGNOSES: Acute renal injury due to circulatory failure and possibly sepsis. She also has respiratory failure, hypotensive metabolic acidosis, hyponatremia, and thrombocytopenia. She came in also with altered mental status and gastrointestinal bleed which may have subsided, but she is being followed carefully for that. At the present time, I am awaiting the documentation of the name of the bacteria in the blood, and she is on cefepime, which has been on and off for an extended period from her previous hospitalization. I adjusted the dose of cefepime to 1 g q. 24 hours, and I am giving a modified dose of 125 mg of amikacin. We will re-evaluate tomorrow, and hopefully we will have the bacteria. The thrombocytopenia is being evaluated also. Sammy Lino MD MTDD
[2017-04-06] MEDS ORDERED: Norepinephrine 16 MG in Dextrose 5% In Water 500 ML IV ONE (05:29)
[2017-04-06 05:35] LABS: ABG ALLEN TEST YES; ABG MECHANICAL RATE 14; ARTERIAL BLOOD GAS HCO3 12.2 mmol/L (21-28); ARTERIAL BLOOD GAS MODE A/C; ARTERIAL BLOOD GAS O2 CAPACITY 12.4 mL/dL (16-24); ARTERIAL BLOOD GAS O2 CONTENT 12.3 ML/dL (15-23); ARTERIAL BLOOD GAS PH 7.21 (7.35-7.45); ARTERIAL BLOOD GAS PO2 163 mm/Hg (80-100); ARTERIAL BLOOD HGB O2 SAT 97.1 % (95.0-98.0); ATERIAL BLOOD GAS PEEP 5; CARBOXYHEMOGLOBIN 0.4 % (0.5-1.5); HHB 0.6 % (0.0-5.0); METHEMOGLOBIN 1.9 % (0.0-3.0)
[2017-04-06 05:43] LABS: HEMATOCRIT 25.2 % (34.0-47.0); MEAN CELL VOLUME 82.4 fl (81.0-99.0); MEAN CORPUSCULAR HEMOGLOBIN 27.7 pg (27.0-31.0); MEAN CORPUSCULAR HGB CONC 33.6 g/dL (33.0-37.0); RED CELL DISTRIBUTION WIDTH 17.7 % (11.5-14.5); WHITE BLOOD COUNT 6.6 K/uL (4.8-10.8)
[2017-04-06 06:27] LABS: CALCIUM 6.2 mg/dL (8.4-10.2); POTASSIUM 4.2 MMOL/L (3.6-5.0)
[2017-04-06] MEDS ORDERED: Cefepime 2 GM in Sodium Chloride 0.9% 100 ML IVPB SCH (07:15)
[2017-04-06 08:06] LABS: VENOUS BLOOD GAS BASE EXCESS -14.6 mmol/L (0.0-2.0); VENOUS BLOOD GAS MODE PRVC/AC; VENOUS BLOOD GAS PCO2 35 mmHg (40-60); VENOUS BLOOD PH 7.17 (7.32-7.43)
[2017-04-06] MEDS ORDERED: Cefepime 1 GM in Sodium Chloride 0.9% 100 ML IVPB SCH (09:00)
--- NOTE | 2017-04-06 09:00 | RAD ---
PROCEDURE: CHEST RADIOGRAPH, 1 VIEW HISTORY: on vent COMPARISON: April 05, 2017. FINDINGS: LUNGS: Consolidative changes are evolving at the lung bases. PLEURA: No pneumothorax or pleural fluid seen. CARDIOVASCULAR: Normal. OSSEOUS STRUCTURES: No significant abnormalities. VISUALIZED UPPER ABDOMEN: Normal. OTHER FINDINGS: Stable, satisfactory position ventilatory, vascular and nasogastric apparatus. IMPRESSION: Lower lobe atelectasis/ infiltrates representing evolving changes at the lung bases. Otherwise no significant interval change compared to the prior examination(s).
--- NOTE | 2017-04-06 10:03 | CP.CCUPN ---
CCU Subjective - Physician Review Subjective (Free Text): Remains extremely critically ill; in refractory shock, repeat lactate levels just ordered now this AM, show increased elevation to 13.3. Additional fluid challenge given with present IVF bag containing alkalinized half-Saline. Additional vasopressor support started with Phenylephrine, ongoing Levophed at 30 mcg/ min and vasopressin drip. Fentanyl drip is off and she opens eyes to painful stimuli, but not otherwise interactive nor following any commands. Patient was dialyzed yesterday for removal of 1000ml fluid. Urine output is otherwise oliguric at approx. 800 ml over last 24H and 250 ml over last 12H. Other vitals and I/O's reviewed. ROS: Unobtainable from intubated Patient. No other pertinent negs or positives on 10+ system review. PMSFH: All Nursing and physician documentation reviewed to date; no new pertinent info noted relevant to current medical problems. CXR: elevated R hemidiaphragm, mild interstitial changes seen near RML and R hilar area. ( my interp). MAJOR PROBLEMS: 1. GNR Bacteremia; source still not identified, but Urine also growing GNRs. Possible Ischemic Bowel also high possibility given extent of acidosis and shock 2. Septic Shock 2 #1 3. Acute Renal Failure / ATN 4. Acute Resp Failure, 2 pneumonia 5. Thrombocytopenia / Coagulopathy 6. h/o SB Enteritis: had ExLap 2 months ago 7. h/o Ovarian CA 8. /o h/o PTE hh/o PTE, IVC filter placement, was on NOAC therapy PLAN: 1. Medical records from [facility] reviewed. Had ExLap with WILNER and abdominal washout on 01/04/17; small bowel was deemed viable at that time. Also had Fungemia during last hospitalization at [facility] [place]. Consider Surgical team eval. 2. Re-bolus with Cefepime, timing changed to administration now, orders placed at 715AM ( aware of Pen allergy, but she did receive 3 doses of Cefepime over the course of 04/04- 04/05 without any untoward reactions). Amikacin as per ID. 3. ECHO for LV function 4. Check SvO2, if low, will add Dobutamine therapy. 5. Serial lactate monitoring 6. Consider Dr. Huggins protocol for Severe Sepsis-Septic Shock treatment with Hydrocortisone, Vit C and Thiamine. 7. Hold HD today; there are no signs of fluid overload, hyperkalemia or uremia. 8. No MV weans 2 to severe shock state. 9. Attempt A-line placement. 10. Consider changing enteral feeds over to Vital 1.2. 11. Low platelets, but no gross DIC evident. 12. Discuss with family, prognosis looks poor. Time spent with this patient did not overlap with any other provider's medical or critical care time. Additionally the code selected for the services rendered in this note includes the time spent: talking to the patients family, associated physicians and reviewing hospital data/results not listed here which extended to a total of 45 minutes. CCU Objective - Vital Signs / Intake & Output Vital Signs (Last 4 hours): Vital Signs Pulse Resp BP Pulse Ox 04/06/17 08:39 99 H 85/40 L 04/06/17 07:00 103 H 21 81/44 L 100 Intake and Output (Last 8hrs): Intake & Output 04/05/17 04/06/17 04/06/17 22:59 06:59 14:59 Intake Total 3529 2313 Output Total 1150 100 Balance 2379 2213 Intake: IV 2679 2153 Intake, Piggyback 450 Tube Feeding 160 Blood Product 300 Albumin 100 Output: Urine 150 100 Urethral (Overton) 150 100 Ultrafiltrate 1000 - Physical Exam Head: Positive for: Atraumatic, Normocephalic Pupils: Positive for: PERRL Extroacular Muscles: Positive for: EOMI Conjunctiva: Negative for: Icteric Mouth: Positive for: Dry (bloody) Neck: Negative for: JVD Respiratory/Chest: Positive for: Clear to Auscultation, Good Air Exchange. Negative for: Accessory Muscle Use, Wheezes Cardiovascular: Positive for: Regular Rate and Rhythm. Negative for: Murmurs, Rub Abdomen: Positive for: Normal Bowel Sounds. Negative for: Tenderness, Distention Upper Extremity: Positive for: Edema Lower Extremity: Positive for: Edema. Negative for: CALF TENDERNESS, NORMAL PULSES, Cyanosis Psychiatric: Positive for: Alert, Lethargic - Medications Active Medications: Active Medications Generic Name Dose Route Start Last Admin Trade Name Freq PRN Reason Stop Dose Admin Acetaminophen 650 mg 04/06/17 05:00 Tylenol 650 Mg Supp VT Q4 PRN Temp >101 Albuterol/Ipratropium 3 ml 04/04/17 19:10 04/04/17 19:23 Duoneb 3 Mg/0.5 Mg (3 Ml) Ud INH 3 ml RQ4 PRN Administration Shortness of Breath Vasopressin 100 units/ Sodium 105 mls @ 1.89 mls/hr 04/05/17 23:45 04/06/17 00:19 Chloride IV 0.03 units/min .Q24H ODETTE 1.89 mls/hr Protocol Administration 0.03 UNITS/MIN Norepinephrine Bitartrate 16 516 mls @ 58.05 mls/hr 04/06/17 05:29 04/06/17 03:45 mg/ Dextrose IV 04/06/17 14:22 30 mcg/min .Q8H54M ONE 58.05 mls/hr Protocol Administration 30 MCG/MIN Phenylephrine HCl 20 mg/ 252 mls @ 15.12 mls/hr 04/06/17 07:45 04/06/17 08:39 Sodium Chloride IV 20 mcg/min .[id number] ODETTE 15.12 mls/hr Protocol Administration 20 MCG/MIN Cefepime HCl 2 gm/ Dextrose 50 mls @ 50 mls/hr 04/06/17 09:00 04/06/17 08:59 IV 50 mls/hr Q12 ODETTE Administration Protocol Pantoprazole Sodium 40 mg 04/04/17 18:00 04/06/17 05:48 Protonix Inj IVP 40 mg Q12H ODETTE Administration - Patient Studies Lab Studies: Microbiology Studies 04/05/17 06:00 Gram Stain - Final Abdomen Wound Culture - Preliminary Gram Negative Jeremi 04/04/17 06:05 Blood Culture - Preliminary Blood Gram Negative Jeremi Gram Stain - Final 04/04/17 06:22 Urine Culture - Preliminary Urine,Overton Gram Negative Jeremi 04/04/17 Unknown MRSA Culture (Admit) - Final Nose MRSA NOT DETECTED Lab Studies 04/06/17 04/06/17 04/06/17 Range/Units 08:02 08:02 06:10 WBC (4.8-10.8) K/uL RBC (3.80-5.20) Mil/uL Hgb (12.0-16.0) g/dL Hct (34.0-47.0) % MCV (81.0-99.0) fl MCH (27.0-31.0) pg MCHC (33.0-37.0) g/dL RDW (11.5-14.5) % Plt Count (130-400) K/uL Fibrinogen (200-400) mg/dl pCO2 (35-45) mm/Hg pO2 35 (80-100) mm/Hg HCO3 (21-28) mmol/L ABG pH (7.35-7.45) ABG Total CO2 (22-28) mmol/L ABG O2 Saturation (95-98) % ABG O2 Content (15-23) ML/dL ABG Base Excess (-2.0-3.0) mmol/L ABG Hemoglobin (11.7-17.4) g/dL ABG Carboxyhemoglobin (0.5-1.5) % POC ABG HHb (Measured) (0.0-5.0) % ABG Methemoglobin (0.0-3.0) % ABG O2 Capacity (16-24) mL/dL Domingo Test VBG pH 7.17 L* (7.32-7.43) VBG pCO2 35 L (40-60) mmHg VBG HCO3 13.2 mmol/L VBG Total CO2 13.9 L (22-28) mmol/L VBG O2 Sat (Calc) 78.5 H (40-65) % VBG Base Excess -14.6 L (0.0-2.0) mmol/L VBG Potassium 4.2 (3.6-5.2) mmol/L A-a O2 Difference 206.0 mm/Hg Hgb O2 Saturation (95.0-98.0) % Glucose 102 (65-105) mg/dL Lactate 13.3 H* (0.7-2.1) mmol/L Vent Mode Mechanical Rate FiO2 40.0 % Tidal Volume PEEP 5 Crit Value Called To Avani espinal Crit Value Called By 5 Crit Value Read Back Y Blood Gas Notified Time 804 Sodium 129.0 L 132 (132-148) mmol/l Potassium 4.2 (3.6-5.0) MMOL/L Chloride 93.0 L 97 L (98-107) mmol/L Carbon Dioxide 11 L* D (22-30) mmol/L Anion Gap 28 H (10-20) BUN 12 (7-17) mg/dl Creatinine 1.5 H (0.7-1.2) mg/dL Est GFR ( Amer) 44 Est GFR (Non-Af Amer) 36 Random Glucose 94 (65-105) mg/dL Lactic Acid 12.6 H* (0.7-2.1) MMOL/L Calcium 6.2 L (8.4-10.2) mg/dL Venous Blood Potassium 4.2 (3.6-5.2) mmol/L Hep Bs Antigen (NEGATIVE) Hep B Core IgM Ab (NEGATIVE) 04/06/17 04/06/17 04/06/17 Range/Units 05:24 04:20 04:00 WBC 6.6 (4.8-10.8) K/uL RBC 3.07 L (3.80-5.20) Mil/uL Hgb 8.5 L D (12.0-16.0) g/dL Hct 25.2 L (34.0-47.0) % MCV 82.4 D (81.0-99.0) fl MCH 27.7 (27.0-31.0) pg MCHC 33.6 (33.0-37.0) g/dL RDW 17.7 H (11.5-14.5) % Plt Count 15 L* D (130-400) K/uL Fibrinogen 428 H (200-400) mg/dl pCO2 25 L (35-45) mm/Hg pO2 163 H (80-100) mm/Hg HCO3 12.2 L (21-28) mmol/L ABG pH 7.21 L (7.35-7.45) ABG Total CO2 10.8 L (22-28) mmol/L ABG O2 Saturation 99.4 H (95-98) % ABG O2 Content 12.3 L (15-23) ML/dL ABG Base Excess -16.4 L (-2.0-3.0) mmol/L ABG Hemoglobin 8.7 L (11.7-17.4) g/dL ABG Carboxyhemoglobin 0.4 L (0.5-1.5) % POC ABG HHb (Measured) 0.6 (0.0-5.0) % ABG Methemoglobin 1.9 (0.0-3.0) % ABG O2 Capacity 12.4 L (16-24) mL/dL Domingo Test Yes VBG pH (7.32-7.43) VBG pCO2 (40-60) mmHg VBG HCO3 mmol/L VBG Total CO2 (22-28) mmol/L VBG O2 Sat (Calc) (40-65) % VBG Base Excess (0.0-2.0) mmol/L VBG Potassium (3.6-5.2) mmol/L A-a O2 Difference 91.0 mm/Hg Hgb O2 Saturation 97.1 (95.0-98.0) % Glucose (65-105) mg/dL Lactate (0.7-2.1) mmol/L Vent Mode A/c Mechanical Rate 14 FiO2 40.0 % Tidal Volume 450 PEEP 5 Crit Value Called To Crit Value Called By Crit Value Read Back Blood Gas Notified Time Sodium (132-148) mmol/l Potassium (3.6-5.0) MMOL/L Chloride (98-107) mmol/L Carbon Dioxide (22-30) mmol/L Anion Gap (10-20) BUN (7-17) mg/dl Creatinine (0.7-1.2) mg/dL Est GFR ( Amer) Est GFR (Non-Af Amer) Random Glucose (65-105) mg/dL Lactic Acid (0.7-2.1) MMOL/L Calcium (8.4-10.2) mg/dL Venous Blood Potassium (3.6-5.2) mmol/L Hep Bs Antigen (NEGATIVE) Hep B Core IgM Ab (NEGATIVE) 04/05/17 04/04/17 Range/Units 20:25 20:30 WBC (4.8-10.8) K/uL RBC (3.80-5.20) Mil/uL Hgb (12.0-16.0) g/dL Hct (34.0-47.0) % MCV (81.0-99.0) fl MCH (27.0-31.0) pg MCHC (33.0-37.0) g/dL RDW (11.5-14.5) % Plt Count (130-400) K/uL Fibrinogen (200-400) mg/dl pCO2 (35-45) mm/Hg pO2 (80-100) mm/Hg HCO3 (21-28) mmol/L ABG pH (7.35-7.45) ABG Total CO2 (22-28) mmol/L ABG O2 Saturation (95-98) % ABG O2 Content (15-23) ML/dL ABG Base Excess (-2.0-3.0) mmol/L ABG Hemoglobin (11.7-17.4) g/dL ABG Carboxyhemoglobin (0.5-1.5) % POC ABG HHb (Measured) (0.0-5.0) % ABG Methemoglobin (0.0-3.0) % ABG O2 Capacity (16-24) mL/dL Domingo Test VBG pH (7.32-7.43) VBG pCO2 (40-60) mmHg VBG HCO3 mmol/L VBG Total CO2 (22-28) mmol/L VBG O2 Sat (Calc) (40-65) % VBG Base Excess (0.0-2.0) mmol/L VBG Potassium (3.6-5.2) mmol/L A-a O2 Difference mm/Hg Hgb O2 Saturation (95.0-98.0) % Glucose (65-105) mg/dL Lactate (0.7-2.1) mmol/L Vent Mode Mechanical Rate FiO2 % Tidal Volume PEEP Crit Value Called To Crit Value Called By Crit Value Read Back Blood Gas Notified Time Sodium 135 (132-148) mmol/l Potassium 3.0 L (3.6-5.0) MMOL/L Chloride 97 L (98-107) mmol/L Carbon Dioxide 16 L (22-30) mmol/L Anion Gap 25 H (10-20) BUN 12 (7-17) mg/dl Creatinine 1.2 (0.7-1.2) mg/dL Est GFR ( Amer) 57 Est GFR (Non-Af Amer) 47 Random Glucose 63 L (65-105) mg/dL Lactic Acid (0.7-2.1) MMOL/L Calcium 6.2 L (8.4-10.2) mg/dL Venous Blood Potassium (3.6-5.2) mmol/L Hep Bs Antigen Negative (NEGATIVE) Hep B Core IgM Ab Negative (NEGATIVE) Laboratory Results - last 24 hr 04/04/17 04/05/17 04/06/17 20:30 20:25 04:00 WBC 6.6 RBC 3.07 L Hgb 8.5 L D Hct 25.2 L MCV 82.4 D MCH 27.7 MCHC 33.6 RDW 17.7 H Plt Count 15 L* D Fibrinogen pCO2 pO2 HCO3 ABG pH ABG Total CO2 ABG O2 Saturation ABG O2 Content ABG Base Excess ABG Hemoglobin ABG Carboxyhemoglobin POC ABG HHb (Measured) ABG Methemoglobin ABG O2 Capacity Domingo Test VBG pH VBG pCO2 VBG HCO3 VBG Total CO2 VBG O2 Sat (Calc) VBG Base Excess VBG Potassium A-a O2 Difference Hgb O2 Saturation Glucose Lactate Vent Mode Mechanical Rate FiO2 Tidal Volume PEEP Crit Value Called To Crit Value Called By Crit Value Read Back Blood Gas Notified Time Sodium 135 Potassium 3.0 L Chloride 97 L Carbon Dioxide 16 L Anion Gap 25 H BUN 12 Creatinine 1.2 Est GFR ( Amer) 57 Est GFR (Non-Af Amer) 47 Random Glucose 63 L Lactic Acid Calcium 6.2 L Venous Blood Potassium Hep Bs Antigen Negative Hep B Core IgM Ab Negative 04/06/17 04/06/17 04/06/17 04:20 05:24 06:10 WBC RBC Hgb Hct MCV MCH MCHC RDW Plt Count Fibrinogen 428 H pCO2 25 L pO2 163 H HCO3 12.2 L ABG pH 7.21 L ABG Total CO2 10.8 L ABG O2 Saturation 99.4 H ABG O2 Content 12.3 L ABG Base Excess -16.4 L ABG Hemoglobin 8.7 L ABG Carboxyhemoglobin 0.4 L POC ABG HHb (Measured) 0.6 ABG Methemoglobin 1.9 ABG O2 Capacity 12.4 L Domingo Test Yes VBG pH VBG pCO2 VBG HCO3 VBG Total CO2 VBG O2 Sat (Calc) VBG Base Excess VBG Potassium A-a O2 Difference 91.0 Hgb O2 Saturation 97.1 Glucose Lactate Vent Mode A/c Mechanical Rate 14 FiO2 40.0 Tidal Volume 450 PEEP 5 Crit Value Called To Crit Value Called By Crit Value Read Back Blood Gas Notified Time Sodium 132 Potassium 4.2 Chloride 97 L Carbon Dioxide 11 L* D Anion Gap 28 H BUN 12 Creatinine 1.5 H Est GFR ( Amer) 44 Est GFR (Non-Af Amer) 36 Random Glucose 94 Lactic Acid Calcium 6.2 L Venous Blood Potassium Hep Bs Antigen Hep B Core IgM Ab 04/06/17 04/06/17 08:02 08:02 WBC RBC Hgb Hct MCV MCH MCHC RDW Plt Count Fibrinogen pCO2 pO2 35 HCO3 ABG pH ABG Total CO2 ABG O2 Saturation ABG O2 Content ABG Base Excess ABG Hemoglobin ABG Carboxyhemoglobin POC ABG HHb (Measured) ABG Methemoglobin ABG O2 Capacity Domingo Test VBG pH 7.17 L* VBG pCO2 35 L VBG HCO3 13.2 VBG Total CO2 13.9 L VBG O2 Sat (Calc) 78.5 H VBG Base Excess -14.6 L VBG Potassium 4.2 A-a O2 Difference 206.0 Hgb O2 Saturation Glucose 102 Lactate 13.3 H* Vent Mode Mechanical Rate FiO2 40.0 Tidal Volume PEEP 5 Crit Value Called To Avani espinal Crit Value Called By 5 Crit Value Read Back Y Blood Gas Notified Time 804 Sodium 129.0 L Potassium Chloride 93.0 L Carbon Dioxide Anion Gap BUN Creatinine Est GFR ( Amer) Est GFR (Non-Af Amer) Random Glucose Lactic Acid 12.6 H* Calcium Venous Blood Potassium 4.2 Hep Bs Antigen Hep B Core IgM Ab Radiology Impressions: See Above Fingerstick Blood Sugar Results: 221 Review of Systems - Review of Systems Systems not reviewed;Unavailable: Intubated Critical Care Progress Note - Ventilator Checklist Head of Bed 30 Degrees: Yes Daily Sedation Vacation: Yes Daily Assessment of Readiness to Wean: Yes Daily Spontaneous Breathing Trial: No PUD Prophalyxis: Yes DVT Prophylaxis: Yes Oral Care with Chlorhexidine Gluconate {CHG}: Yes - Vent Settings MODE:: ASSIST CONTROL TIDAL VOLUME:: 400 RESP RATE:: 14 FIO2:: 40 PEEP:: 5 - Extremities/Vascular Does the Patient have a Central Venous Catheter?: Yes Insertion Site: Femoral Vein Does the Patient need a Central Venous Catheter?: Yes Does the Patient have a Overton Catheter?: Yes Does the Patient need a Overton Catheter?: Yes Catheter Insertion Criteria: Need for accurate measurement of output in critically ill patient
[2017-04-06] MEDS ORDERED: Meropenem 1 GM in Sodium Chloride 0.9% 100 ML IVPB SCH (10:15)
[2017-04-06] MEDS ORDERED: Meropenem 500 MG in Sodium Chloride 0.9% 100 ML IVPB SCH (10:30)
[2017-04-06] MEDS: Meropenem 500 MG in Sodium Chloride 0.9% 100 ML IVPB SCH ×2 (10:47→21:19)
--- NOTE | 2017-04-06 12:21 | CP.PCM.CON ---
History of Present Illness - History of Present Illness History of Present Illness: General Surgery- Dr. Caldera 51F past medical history significant for exploratory laparotomy abdominal at [facility] one month ago. Patient was brought into [facility] ED by family members due to weakness and altered mental status. Surgery was consulted for possible intra- abdominal abscess. Patient currently intubated, castillo catheter in place, and central line in the right fem. All sites show oozing. PMH: Ovarian Ca, PE , PSH: Ex-lap for SBO, Ureter sent placement, RODRIGO BSO, IVC filter ALL: Cemetidine, nickel, penicillin Review of Systems - Review of Systems Systems not reviewed;Unavailable: Intubated - Constitutional Constitutional: As Per HPI Past Patient History - Past Medical History & Family History Past Medical History?: Yes - Past Social History Smoking Status: Unknown If Ever Smoked Alcohol: None Drugs: Denies Home Situation {Lives}: With Family - CARDIAC Hx Cardiac Disorders: No - PULMONARY Hx Respiratory Disorders: Yes Other/Comment: P/E - NEUROLOGICAL Hx Neurological Disorder: No - HEENT Hx HEENT Problems: No - RENAL Other/Comment: hydronephrosis, R ureteral stent and removal (01/27/17). 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) - ENDOCRINE/METABOLIC Hx Endocrine Disorders: No - HEMATOLOGICAL/ONCOLOGICAL Hx Blood Disorders: Yes Hx Cancer: Yes (Cervical) - INTEGUMENTARY Hx Dermatological Problems: No - MUSCULOSKELETAL/RHEUMATOLOGICAL Hx Musculoskeletal Disorders: No - GASTROINTESTINAL Hx Gastrointestinal Disorders: Yes Hx Bowel Surgery: Yes Hx Fatty Liver Disease: Yes Other/Comment: small bowel enteritis - GENITOURINARY/GYNECOLOGICAL Hx Genitourinary Disorders: Yes Hx Ovarian Cancer: Yes - PSYCHIATRIC Hx Psychophysiologic Disorder: No Hx Substance Use: No - SURGICAL HISTORY Hx Surgeries: Yes Hx Cholecystectomy: Yes Hx Hysterectomy: Yes Other/Comment: RODRIGO, BSO, Laparotomy, R ureteral stent , IVC filter - ANESTHESIA Hx Anesthesia: Yes Hx Anesthesia Reactions: No Meds Allergies/Adverse Reactions: Allergies Allergy/AdvReac Type Severity Reaction Status Date / Time cimetidine [From Tagamet] Allergy RASH Verified 04/04/17 05:33 nickel Allergy RASH Verified 04/04/17 05:34 Penicillins Allergy RASH Verified 04/04/17 05:33 - Medications Medications: Current Medications Acetaminophen (Tylenol 650 Mg Supp) 650 mg [place] Q4 PRN PRN Reason: Temp >101 Albuterol/Ipratropium (Duoneb 3 Mg/0.5 Mg (3 Ml) Ud) 3 ml INH RQ4 PRN PRN Reason: Shortness of Breath Last Admin: 04/04/17 19:23 Dose: 3 ml Vasopressin 100 units/ Sodium (Chloride) 105 mls @ 1.89 mls/hr IV .Q24H ODETTE; 0.03 UNITS/MIN PRN Reason: Protocol Last Admin: 04/06/17 00:19 Dose: 0.03 units/min, 1.89 mls/hr Norepinephrine Bitartrate 16 (mg/ Dextrose) 516 mls @ 58.05 mls/hr IV .Q8H54M ONE; 30 MCG/MIN PRN Reason: Protocol Stop: 04/06/17 14:22 Last Admin: 04/06/17 03:45 Dose: 30 mcg/min, 58.05 mls/hr Phenylephrine HCl 20 mg/ (Sodium Chloride) 252 mls @ 15.12 mls/hr IV .[id number] ODETTE; 20 MCG/MIN PRN Reason: Protocol Last Admin: 04/06/17 08:39 Dose: 20 mcg/min, 15.12 mls/hr Meropenem 500 mg/ Sodium (Chloride) 100 mls @ 100 mls/hr IVPB Q12 ODETTE PRN Reason: Protocol Last Admin: 04/06/17 10:47 Dose: 100 mls/hr Sodium Bicarbonate 80 meq/ (Sodium Chloride) 1,080 mls @ 150 mls/hr IV .Q7H12M ODETTE Stop: 04/09/17 11:01 Pantoprazole Sodium (Protonix Inj) 40 mg IVP Q12H ODETTE Last Admin: 04/06/17 05:48 Dose: 40 mg Physical Exam - Constitutional Appears: Chronically Ill - Eye Exam Pupil Exam: PERRL - ENT Exam ENT Exam: Mucous Membranes Moist - Respiratory Exam Respiratory Exam: Decreased Breath Sounds, Wheezes. absent: Accessory Muscle Use, Respiratory Distress - Cardiovascular Exam Cardiovascular Exam: Tachycardia, +S1, +S2 - GI/Abdominal Exam GI & Abdominal Exam: Distended, Firm, Guarding. absent: Hernia, Rigid, Tenderness Additional comments: Midline incision for ex-lap Inferior portion of incision, superficial open wound actively draining pus. - Extremities Exam Extremities exam: Positive for: pedal edema Additional comments: upper and lower extremity Edema - Skin Skin Exam: Petechiae Additional comments: oozing from catheter sites Results - Vital Signs Recent Vital Signs: Last Vital Signs Temp 102.1 F H 04/06/17 05:00 Pulse 99 H 04/06/17 08:39 Resp 21 04/06/17 07:00 BP 85/40 L 04/06/17 08:39 Pulse Ox 100 04/06/17 07:00 - Labs Result Diagrams: 04/06/17 04:00 04/06/17 06:10 Labs: Laboratory Results - last 24 hr 04/04/17 04/05/17 04/06/17 20:30 20:25 04:00 WBC 6.6 RBC 3.07 L Hgb 8.5 L D Hct 25.2 L MCV 82.4 D MCH 27.7 MCHC 33.6 RDW 17.7 H Plt Count 15 L* D Fibrinogen pCO2 pO2 HCO3 ABG pH ABG Total CO2 ABG O2 Saturation ABG O2 Content ABG Base Excess ABG Hemoglobin ABG Carboxyhemoglobin POC ABG HHb (Measured) ABG Methemoglobin ABG O2 Capacity Domingo Test VBG pH VBG pCO2 VBG HCO3 VBG Total CO2 VBG O2 Sat (Calc) VBG Base Excess VBG Potassium A-a O2 Difference Hgb O2 Saturation Glucose Lactate Vent Mode Mechanical Rate FiO2 Tidal Volume PEEP Crit Value Called To Crit Value Called By Crit Value Read Back Blood Gas Notified Time Sodium 135 Potassium 3.0 L Chloride 97 L Carbon Dioxide 16 L Anion Gap 25 H BUN 12 Creatinine 1.2 Est GFR ( Amer) 57 Est GFR (Non-Af Amer) 47 Random Glucose 63 L Lactic Acid Calcium 6.2 L Venous Blood Potassium Hep Bs Antigen Negative Hep B Core IgM Ab Negative 04/06/17 04/06/17 04/06/17 04:20 05:24 06:10 WBC RBC Hgb Hct MCV MCH MCHC RDW Plt Count Fibrinogen 428 H pCO2 25 L pO2 163 H HCO3 12.2 L ABG pH 7.21 L ABG Total CO2 10.8 L ABG O2 Saturation 99.4 H ABG O2 Content 12.3 L ABG Base Excess -16.4 L ABG Hemoglobin 8.7 L ABG Carboxyhemoglobin 0.4 L POC ABG HHb (Measured) 0.6 ABG Methemoglobin 1.9 ABG O2 Capacity 12.4 L Domingo Test Yes VBG pH VBG pCO2 VBG HCO3 VBG Total CO2 VBG O2 Sat (Calc) VBG Base Excess VBG Potassium A-a O2 Difference 91.0 Hgb O2 Saturation 97.1 Glucose Lactate Vent Mode A/c Mechanical Rate 14 FiO2 40.0 Tidal Volume 450 PEEP 5 Crit Value Called To Crit Value Called By Crit Value Read Back Blood Gas Notified Time Sodium 132 Potassium 4.2 Chloride 97 L Carbon Dioxide 11 L* D Anion Gap 28 H BUN 12 Creatinine 1.5 H Est GFR ( Amer) 44 Est GFR (Non-Af Amer) 36 Random Glucose 94 Lactic Acid Calcium 6.2 L Venous Blood Potassium Hep Bs Antigen Hep B Core IgM Ab 04/06/17 04/06/17 08:02 08:02 WBC RBC Hgb Hct MCV MCH MCHC RDW Plt Count Fibrinogen pCO2 pO2 35 HCO3 ABG pH ABG Total CO2 ABG O2 Saturation ABG O2 Content ABG Base Excess ABG Hemoglobin ABG Carboxyhemoglobin POC ABG HHb (Measured) ABG Methemoglobin ABG O2 Capacity Domingo Test VBG pH 7.17 L* VBG pCO2 35 L VBG HCO3 13.2 VBG Total CO2 13.9 L VBG O2 Sat (Calc) 78.5 H VBG Base Excess -14.6 L VBG Potassium 4.2 A-a O2 Difference 206.0 Hgb O2 Saturation Glucose 102 Lactate 13.3 H* Vent Mode Mechanical Rate FiO2 40.0 Tidal Volume PEEP 5 Crit Value Called To Avani espinal Crit Value Called By 5 Crit Value Read Back Y Blood Gas Notified Time 804 Sodium 129.0 L Potassium Chloride 93.0 L Carbon Dioxide Anion Gap BUN Creatinine Est GFR ( Amer) Est GFR (Non-Af Amer) Random Glucose Lactic Acid 12.6 H* Calcium Venous Blood Potassium 4.2 Hep Bs Antigen Hep B Core IgM Ab Assessment & Plan - Assessment and Plan (Free Text) Assessment: 51F w/ multiple comorbidities, elevated lactate levels, ESRD, ESBL Kelebsiella bacteremia, no intra-abdominal abscess appreciated on CT scan Plan: - no intra-abdominal abscess appreciated on CT scan - source of infection most likely from urine - no acute surgical intervention at this time - medical management per ICU and primary team - will d/w Dr. Werner Harris PGY1
--- NOTE | 2017-04-06 13:04 | CP.PCM.PN ---
Subjective - Date & Time of Evaluation Date of Evaluation: 04/06/17 Time of Evaluation: 13:02 - Subjective Subjective: Patient remained and respiratory failure and respirator. Not responsive Patient sedated as well Urine output noted to be low. Patient completed 2 hemodialysis [id number] Tuesday and Tuesday. Family at the bedside and the . Objective - Vital Signs/Intake and Output Vital Signs (last 24 hours): Temp Pulse Resp BP Pulse Ox 102.1 F H 99 H 21 85/40 L 100 04/06/17 05:00 04/06/17 08:39 04/06/17 07:00 04/06/17 08:39 04/06/17 07:00 Intake and Output: 04/06/17 04/06/17 06:59 18:59 Intake Total 4475 Output Total 100 Balance 4375 - Medications Medications: Current Medications Acetaminophen (Tylenol 650 Mg Supp) 650 mg [place] Q4 PRN PRN Reason: Temp >101 Albuterol/Ipratropium (Duoneb 3 Mg/0.5 Mg (3 Ml) Ud) 3 ml INH RQ4 PRN PRN Reason: Shortness of Breath Last Admin: 04/04/17 19:23 Dose: 3 ml Vasopressin 100 units/ Sodium (Chloride) 105 mls @ 1.89 mls/hr IV .Q24H ODETTE; 0.03 UNITS/MIN PRN Reason: Protocol Last Admin: 04/06/17 00:19 Dose: 0.03 units/min, 1.89 mls/hr Norepinephrine Bitartrate 16 (mg/ Dextrose) 516 mls @ 58.05 mls/hr IV .Q8H54M ONE; 30 MCG/MIN PRN Reason: Protocol Stop: 04/06/17 14:22 Last Admin: 04/06/17 03:45 Dose: 30 mcg/min, 58.05 mls/hr Phenylephrine HCl 20 mg/ (Sodium Chloride) 252 mls @ 15.12 mls/hr IV .[id number] ODETTE; 20 MCG/MIN PRN Reason: Protocol Last Admin: 04/06/17 08:39 Dose: 20 mcg/min, 15.12 mls/hr Meropenem 500 mg/ Sodium (Chloride) 100 mls @ 100 mls/hr IVPB Q12 ODETTE PRN Reason: Protocol Last Admin: 04/06/17 10:47 Dose: 100 mls/hr Sodium Bicarbonate 80 meq/ (Sodium Chloride) 1,080 mls @ 150 mls/hr IV .Q7H12M [facility] Stop: 04/09/17 11:01 Pantoprazole Sodium (Protonix Inj) 40 mg IVP Q12H [facility] Last Admin: 04/06/17 05:48 Dose: 40 mg - Labs Labs: 04/06/17 04:00 04/06/17 06:10 PT 22.7 Seconds (9.8-13.1) H D 04/05/17 07:10 INR 2.0 (0.9-1.2) H D 04/05/17 07:10 APTT 48.8 Seconds (25.6-37.1) H 04/05/17 07:10 - Constitutional Appears: In Acute Distress - ENT Exam ENT Exam: Mucous Membranes Moist - Respiratory Exam Respiratory Exam: Rhonchi. absent: Chest Wall Tenderness - Cardiovascular Exam Cardiovascular Exam: absent: JVD, Rubs - GI/Abdominal Exam GI & Abdominal Exam: Soft - Extremities Exam Extremities Exam: absent: Calf Tenderness - Back Exam Back Exam: absent: CVA tenderness (L), CVA tenderness (R) - Neurological Exam Neurological Exam: Altered Assessment and Plan (1) Acute renal injury due to circulatory failure Assessment & Plan: Acute renal failure with serum creatinine appears to be stable after 2 hemodialysis. Urine output noted to be low Metabolic acidosis persisted given the possibility of intra-abdominal sepsis or involvement with persistent lactic acidosis with persistent sodium bicarbonate IV drip. Was persistent respiratory failure, and septic shock In summary GNR Bacteremia; source still not identified, but Urine also growing GNRs. Possible Ischemic Bowel also high possibility given extent of acidosis and shock 2. Septic Shock 3. Acute Renal Failure / ATN 4. Acute Resp Failure, 2 pneumonia 5. Thrombocytopenia / Coagulopathy 6. h/o SB Enteritis: had ExLap 2 months ago 7. h/o Ovarian CA 8. /o h/o PTE hh/o PTE, IVC filter placement, was on NOAC therapy Prognosis is very poor and explained to the family as well. We will do dialysis tomorrow perhaps. Patient remain on multiple vasopressors. Status: Acute (2) Altered mental status Status: Acute (3) GI bleed Status: Acute (4) Hypotension Status: Deleted
--- NOTE | 2017-04-06 14:43 | CP.PCM.CON ---
History of Present Illness - History of Present Illness History of Present Illness: This ingrid 51 yrs old female who was diagnosed to have a cervical and endometrial cancer in 2014. She had surgery and rt and chemotherapy, and did well. However shortly after that she developed enteritis and was admitted to [place] for enteritis , She finally had surgery for the enteritis but after surgery pt hadascitis,right hydronephrosiswith ureteral stent placement, She had a acute renal failurewith severe metabiolic acidosis,She was on xarelto and had some oozing into her catheter ,probably from traumatic castillo placem. she a; so has metabolic encephalopathy and has been in a coma since, Her wbc was 8.4, [id number] and [id number]. . She has been transfused platelets but she still has some oozing. Past Patient History - Past Medical History & Family History Past Medical History?: Yes - Past Social History Smoking Status: Unknown If Ever Smoked Alcohol: None Drugs: Denies Home Situation {Lives}: With Family - CARDIAC Hx Cardiac Disorders: No - PULMONARY Hx Respiratory Disorders: Yes Other/Comment: P/E - NEUROLOGICAL Hx Neurological Disorder: No - HEENT Hx HEENT Problems: No - RENAL Other/Comment: hydronephrosis, R ureteral stent and removal (01/27/17). 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) - ENDOCRINE/METABOLIC Hx Endocrine Disorders: No - HEMATOLOGICAL/ONCOLOGICAL Hx Blood Disorders: Yes Hx Cancer: Yes (Cervical) - INTEGUMENTARY Hx Dermatological Problems: No - MUSCULOSKELETAL/RHEUMATOLOGICAL Hx Musculoskeletal Disorders: No - GASTROINTESTINAL Hx Gastrointestinal Disorders: Yes Hx Bowel Surgery: Yes Hx Fatty Liver Disease: Yes Other/Comment: small bowel enteritis - GENITOURINARY/GYNECOLOGICAL Hx Genitourinary Disorders: Yes Hx Ovarian Cancer: Yes - PSYCHIATRIC Hx Psychophysiologic Disorder: No Hx Substance Use: No - SURGICAL HISTORY Hx Surgeries: Yes Hx Cholecystectomy: Yes Hx Hysterectomy: Yes Other/Comment: RODRIGO, BSO, Laparotomy, R ureteral stent , IVC filter - ANESTHESIA Hx Anesthesia: Yes Hx Anesthesia Reactions: No Meds Allergies/Adverse Reactions: Allergies Allergy/AdvReac Type Severity Reaction Status Date / Time cimetidine [From Tagamet] Allergy RASH Verified 04/04/17 05:33 nickel Allergy RASH Verified 04/04/17 05:34 Penicillins Allergy RASH Verified 04/04/17 05:33 - Medications Medications: Current Medications Acetaminophen (Tylenol 650 Mg Supp) 650 mg [place] Q4 PRN PRN Reason: Temp >101 Albuterol/Ipratropium (Duoneb 3 Mg/0.5 Mg (3 Ml) Ud) 3 ml INH RQ4 PRN PRN Reason: Shortness of Breath Last Admin: 04/04/17 19:23 Dose: 3 ml Vasopressin 100 units/ Sodium (Chloride) 105 mls @ 1.89 mls/hr IV .Q24H ODETTE; 0.03 UNITS/MIN PRN Reason: Protocol Last Admin: 04/06/17 00:19 Dose: 0.03 units/min, 1.89 mls/hr Phenylephrine HCl 20 mg/ (Sodium Chloride) 252 mls @ 15.12 mls/hr IV .[id number] ODETTE; 20 MCG/MIN PRN Reason: Protocol Last Admin: 04/06/17 08:39 Dose: 20 mcg/min, 15.12 mls/hr Meropenem 500 mg/ Sodium (Chloride) 100 mls @ 100 mls/hr IVPB Q12 ODETTE PRN Reason: Protocol Last Admin: 04/06/17 10:47 Dose: 100 mls/hr Sodium Bicarbonate 80 meq/ (Sodium Chloride) 1,080 mls @ 150 mls/hr IV .Q7H12M [facility]TE Stop: 04/09/17 11:01 Pantoprazole Sodium (Protonix Inj) 40 mg IVP Q12H ODETTE Last Admin: 04/06/17 05:48 Dose: 40 mg Physical Exam - Additional Findings Additional findings: Pt is unresponsive, on a ventilator. neck supple, no adenopathy Chest' Pt has some fine ralesboth bases. Heart; RSR, no murmur Abd; Soft, ascitis 2+ no mass, no h/s megaly Results - Vital Signs Recent Vital Signs: Last Vital Signs Temp 102.1 F H 04/06/17 05:00 Pulse 99 H 04/06/17 08:39 Resp 21 04/06/17 07:00 BP 85/40 L 04/06/17 08:39 Pulse Ox 100 04/06/17 07:00 - Labs Result Diagrams: 04/06/17 04:00 04/06/17 06:10 Labs: Laboratory Results - last 24 hr 04/04/17 04/05/17 04/06/17 20:30 20:25 04:00 WBC 6.6 RBC 3.07 L Hgb 8.5 L D Hct 25.2 L MCV 82.4 D MCH 27.7 MCHC 33.6 RDW 17.7 H Plt Count 15 L* D Fibrinogen pCO2 pO2 HCO3 ABG pH ABG Total CO2 ABG O2 Saturation ABG O2 Content ABG Base Excess ABG Hemoglobin ABG Carboxyhemoglobin POC ABG HHb (Measured) ABG Methemoglobin ABG O2 Capacity Domingo Test VBG pH VBG pCO2 VBG HCO3 VBG Total CO2 VBG O2 Sat (Calc) VBG Base Excess VBG Potassium A-a O2 Difference Hgb O2 Saturation Glucose Lactate Vent Mode Mechanical Rate FiO2 Tidal Volume PEEP Crit Value Called To Crit Value Called By Crit Value Read Back Blood Gas Notified Time Sodium 135 Potassium 3.0 L Chloride 97 L Carbon Dioxide 16 L Anion Gap 25 H BUN 12 Creatinine 1.2 Est GFR ( Amer) 57 Est GFR (Non-Af Amer) 47 Random Glucose 63 L Lactic Acid Calcium 6.2 L Venous Blood Potassium Hep B Core IgM Ab Negative 04/06/17 04/06/17 04/06/17 04:20 05:24 06:10 WBC RBC Hgb Hct MCV MCH MCHC RDW Plt Count Fibrinogen 428 H pCO2 25 L pO2 163 H HCO3 12.2 L ABG pH 7.21 L ABG Total CO2 10.8 L ABG O2 Saturation 99.4 H ABG O2 Content 12.3 L ABG Base Excess -16.4 L ABG Hemoglobin 8.7 L ABG Carboxyhemoglobin 0.4 L POC ABG HHb (Measured) 0.6 ABG Methemoglobin 1.9 ABG O2 Capacity 12.4 L Domingo Test Yes VBG pH VBG pCO2 VBG HCO3 VBG Total CO2 VBG O2 Sat (Calc) VBG Base Excess VBG Potassium A-a O2 Difference 91.0 Hgb O2 Saturation 97.1 Glucose Lactate Vent Mode A/c Mechanical Rate 14 FiO2 40.0 Tidal Volume 450 PEEP 5 Crit Value Called To Crit Value Called By Crit Value Read Back Blood Gas Notified Time Sodium 132 Potassium 4.2 Chloride 97 L Carbon Dioxide 11 L* D Anion Gap 28 H BUN 12 Creatinine 1.5 H Est GFR ( Amer) 44 Est GFR (Non-Af Amer) 36 Random Glucose 94 Lactic Acid Calcium 6.2 L Venous Blood Potassium Hep B Core IgM Ab 04/06/17 04/06/17 08:02 08:02 WBC RBC Hgb Hct MCV MCH MCHC RDW Plt Count Fibrinogen pCO2 pO2 35 HCO3 ABG pH ABG Total CO2 ABG O2 Saturation ABG O2 Content ABG Base Excess ABG Hemoglobin ABG Carboxyhemoglobin POC ABG HHb (Measured) ABG Methemoglobin ABG O2 Capacity Domingo Test VBG pH 7.17 L* VBG pCO2 35 L VBG HCO3 13.2 VBG Total CO2 13.9 L VBG O2 Sat (Calc) 78.5 H VBG Base Excess -14.6 L VBG Potassium 4.2 A-a O2 Difference 206.0 Hgb O2 Saturation Glucose 102 Lactate 13.3 H* Vent Mode Mechanical Rate FiO2 40.0 Tidal Volume PEEP 5 Crit Value Called To Avani espinal Crit Value Called By 5 Crit Value Read Back Y Blood Gas Notified Time 804 Sodium 129.0 L Potassium Chloride 93.0 L Carbon Dioxide Anion Gap BUN Creatinine Est GFR ( Amer) Est GFR (Non-Af Amer) Random Glucose Lactic Acid 12.6 H* Calcium Venous Blood Potassium 4.2 Hep B Core IgM Ab Assessment & Plan - Assessment and Plan (Free Text) Assessment: Impression :Thrombocytopenia secondary to sepsis. Plan: Plan; Transfuse 1 unit of platelets today to help stop the oozing Prognosis poor.
[2017-04-06] MEDS: SODIUM CHLORIDE 0.45% IV SCH ×2 (15:05→22:00)
[2017-04-06] MEDS: SODIUM BICARBONATE IV SCH ×2 (15:05→22:00)
[2017-04-06] MEDS ORDERED: Thiamine 100 mg/ml Inj IV SCH ×2 (15:30)
[2017-04-06] MEDS ORDERED: Thiamine 200 MG in Sodium Chloride 0.9% 100 ML IV SCH (15:30)
--- NOTE | 2017-04-06 15:42 | CP.PCM.PN ---
Subjective - Date & Time of Evaluation Date of Evaluation: 04/06/17 Time of Evaluation: 14:10 - Subjective Subjective: F/U Respiratory Failure. Coma , hypotension. Objective - Vital Signs/Intake and Output Vital Signs (last 24 hours): Temp Pulse Resp BP Pulse Ox 102.1 F H 99 H 21 85/40 L 100 04/06/17 05:00 04/06/17 08:39 04/06/17 07:00 04/06/17 08:39 04/06/17 07:00 Intake and Output: 04/06/17 04/06/17 06:59 18:59 Intake Total 4475 Output Total 100 Balance 4375 - Medications Medications: Current Medications Acetaminophen (Tylenol 650 Mg Supp) 650 mg [place] Q4 PRN PRN Reason: Temp >101 Albuterol/Ipratropium (Duoneb 3 Mg/0.5 Mg (3 Ml) Ud) 3 ml INH RQ4 PRN PRN Reason: Shortness of Breath Last Admin: 04/04/17 19:23 Dose: 3 ml Vasopressin 100 units/ Sodium (Chloride) 105 mls @ 1.89 mls/hr IV .Q24H ODETTE; 0.03 UNITS/MIN PRN Reason: Protocol Last Admin: 04/06/17 00:19 Dose: 0.03 units/min, 1.89 mls/hr Phenylephrine HCl 20 mg/ (Sodium Chloride) 252 mls @ 15.12 mls/hr IV .[id number] ODETTE; 20 MCG/MIN PRN Reason: Protocol Last Admin: 04/06/17 08:39 Dose: 20 mcg/min, 15.12 mls/hr Meropenem 500 mg/ Sodium (Chloride) 100 mls @ 100 mls/hr IVPB Q12 ODETTE PRN Reason: Protocol Last Admin: 04/06/17 10:47 Dose: 100 mls/hr Sodium Bicarbonate 80 meq/ (Sodium Chloride) 1,080 mls @ 150 mls/hr IV .Q7H12M [facility] Stop: 04/09/17 11:01 Last Admin: 04/06/17 15:05 Dose: 150 mls/hr Norepinephrine Bitartrate 8 mg (/ Dextrose) 258 mls @ 4.83 mls/hr IV .Q24H ONE PRN Reason: 2.5 MCG/MIN Stop: 04/07/17 14:47 Last Admin: 04/06/17 15:03 Dose: 4.83 mls/hr Ascorbic Acid 1,500 mg/ Sodium (Chloride) 103 mls @ 103 mls/hr IVPB Q6H [facility]ETTE Stop: 04/08/17 10:29 Hydrocortisone Sodium Succinate 50 mg/ Sodium Chloride 100 mls @ 100 mls/hr IV Q6 ODETTE Thiamine HCl 200 mg/ Sodium (Chloride) 102 mls @ 204 mls/hr IV Q12H ODETTE Pantoprazole Sodium (Protonix Inj) 40 mg IVP Q12H [facility]ETTE Last Admin: 04/06/17 05:48 Dose: 40 mg - Labs Labs: 04/06/17 04:00 04/06/17 06:10 PT 22.7 Seconds (9.8-13.1) H D 04/05/17 07:10 INR 2.0 (0.9-1.2) H D 04/05/17 07:10 APTT 48.8 Seconds (25.6-37.1) H 04/05/17 07:10 - Constitutional Appears: Chronically Ill - Head Exam Head Exam: NORMAL INSPECTION - Eye Exam Eye Exam: PERRL - ENT Exam Additional comments: intubated , oozing blood trough the mouth - Neck Exam Neck Exam: Normal Inspection - Respiratory Exam Respiratory Exam: Decreased Breath Sounds (at bases), Rhonchi (scattered) - Cardiovascular Exam Cardiovascular Exam: REGULAR RHYTHM - GI/Abdominal Exam GI & Abdominal Exam: Soft, Normal Bowel Sounds Additional comments: surgical wound open mid lower abdomen, yellow sloughy base - Extremities Exam Extremities Exam: Pedal Edema - Back Exam Additional comments: MASD sacral , buttock . - Neurological Exam Additional comments: comatose, unresponsive - Skin Skin Exam: Warm Assessment and Plan (1) Acute respiratory failure Status: Acute (2) Septic shock Status: Acute (3) Pneumonia Status: Acute (4) Acute renal failure (ARF) Status: Acute (5) Metabolic acidosis Status: Acute (6) Hematuria, gross Status: Deleted (7) Anemia Status: Acute (8) Thrombocytopenia Status: Acute (9) History of pulmonary embolus (PE) Status: Acute - Assessment and Plan (Free Text) Plan: Patient on Vasopressors, Genta , Merren , Dialysis , Ventilatory support, prognosis very poor , discussed with Patient's family at bedside. ICU Time: 40 min.
[2017-04-06] MEDS: Hydrocortisone- 50 MG in Sodium Chloride 0.9% 100 ML IV SCH ×2 (16:14→21:21)
[2017-04-06] MEDS: Thiamine 200 MG in Sodium Chloride 0.9% 100 ML IV SCH (16:14)
--- NOTE | 2017-04-06 17:27 | CP.PCM.PN ---
Subjective - Date & Time of Evaluation Date of Evaluation: 04/06/17 Time of Evaluation: 17:21 - Subjective Subjective: I D NOTE CLINICALLY UNCHANGED UNRESPONSIVE RENAL FUNCTION,SOME IMPROVEMENT BLOOD/URINE CULTURES:KLEBSIELLA (ESBL) PLATELETS :15 RX:MEROPENEM IN AN ADJUSTED RENAL DOSE GENTAMICIN 60 MG IVPB Objective - Vital Signs/Intake and Output Vital Signs (last 24 hours): Temp Pulse Resp BP Pulse Ox 100.9 F H 99 H 14 105/64 100 04/06/17 17:00 04/06/17 17:00 04/06/17 17:00 04/06/17 17:00 04/06/17 17:00 Intake and Output: 04/06/17 04/06/17 06:59 18:59 Intake Total 4475 Output Total 100 Balance 4375 - Medications Medications: Current Medications Acetaminophen (Tylenol 650 Mg Supp) 650 mg [place] Q4 PRN PRN Reason: Temp >101 Albuterol/Ipratropium (Duoneb 3 Mg/0.5 Mg (3 Ml) Ud) 3 ml INH RQ4 PRN PRN Reason: Shortness of Breath Last Admin: 04/04/17 19:23 Dose: 3 ml Vasopressin 100 units/ Sodium (Chloride) 105 mls @ 1.89 mls/hr IV .Q24H ODETTE; 0.03 UNITS/MIN PRN Reason: Protocol Last Admin: 04/06/17 00:19 Dose: 0.03 units/min, 1.89 mls/hr Phenylephrine HCl 20 mg/ (Sodium Chloride) 252 mls @ 15.12 mls/hr IV .[id number] ODETTE; 20 MCG/MIN PRN Reason: Protocol Last Admin: 04/06/17 08:39 Dose: 20 mcg/min, 15.12 mls/hr Meropenem 500 mg/ Sodium (Chloride) 100 mls @ 100 mls/hr IVPB Q12 ODETTE PRN Reason: Protocol Last Admin: 04/06/17 10:47 Dose: 100 mls/hr Sodium Bicarbonate 80 meq/ (Sodium Chloride) 1,080 mls @ 150 mls/hr IV .Q7H12M [facility] Stop: 04/09/17 11:01 Last Admin: 04/06/17 15:05 Dose: 150 mls/hr Norepinephrine Bitartrate 8 mg (/ Dextrose) 258 mls @ 4.83 mls/hr IV .Q24H ONE PRN Reason: 2.5 MCG/MIN Stop: 04/07/17 14:47 Last Admin: 04/06/17 15:03 Dose: 4.83 mls/hr Ascorbic Acid 1,500 mg/ Sodium (Chloride) 103 mls @ 103 mls/hr IVPB Q6H [facility] Stop: 04/08/17 10:29 Last Admin: 04/06/17 16:13 Dose: 103 mls/hr Hydrocortisone Sodium Succinate 50 mg/ Sodium Chloride 100 mls @ 100 mls/hr IV Q6 [facility] Last Admin: 04/06/17 16:14 Dose: 100 mls/hr Thiamine HCl 200 mg/ Sodium (Chloride) 102 mls @ 204 mls/hr IV Q12H [facility] Last Admin: 04/06/17 16:14 Dose: 204 mls/hr Gentamicin Sulfate 60 mg/ (Sodium Chloride) 101.5 mls @ 100 mls/hr IVPB Q24H ODETTE PRN Reason: Protocol Pantoprazole Sodium (Protonix Inj) 40 mg IVP Q12H [facility] Last Admin: 04/06/17 05:48 Dose: 40 mg - Labs Labs: 04/06/17 04:00 04/06/17 06:10 PT 22.7 Seconds (9.8-13.1) H D 04/05/17 07:10 INR 2.0 (0.9-1.2) H D 04/05/17 07:10 APTT 48.8 Seconds (25.6-37.1) H 04/05/17 07:10
[2017-04-06] MEDS: Gentamicin 60mg/50ml NS 60 MG/50 ML BAG IVPB SCH (18:25)
[2017-04-07] MEDS: Thiamine 200 MG in Sodium Chloride 0.9% 100 ML IV SCH ×2 (03:18→15:30)
[2017-04-07 04:56] LABS: ABG ALLEN TEST YES; ABG MECHANICAL RATE 14; ARTERIAL BLOOD GAS HCO3 23.9 mmol/L (21-28); ARTERIAL BLOOD GAS MODE A/C; ARTERIAL BLOOD GAS O2 CAPACITY 12.5 mL/dL (16-24); ARTERIAL BLOOD GAS O2 CONTENT 12.6 ML/dL (15-23); ARTERIAL BLOOD GAS PH 7.45 (7.35-7.45); ARTERIAL BLOOD GAS PO2 135 mm/Hg (80-100); ARTERIAL BLOOD HGB O2 SAT 97.7 % (95.0-98.0); ATERIAL BLOOD GAS PEEP 5; CARBOXYHEMOGLOBIN 1.8 % (0.5-1.5); HHB -0.9 % (0.0-5.0); METHEMOGLOBIN 1.4 % (0.0-3.0)
[2017-04-07] MEDS: Acetaminophen 650mg/20.3ml solution UD PO PRN ×3 (05:15→23:22)
[2017-04-07] MEDS: Hydrocortisone- 50 MG in Sodium Chloride 0.9% 100 ML IV SCH ×4 (05:20→22:20)
[2017-04-07 05:50] LABS: BASO % 0.1 % (0.0-2.0); EOS % 0.3 % (0.0-4.0); HEMATOCRIT 26.4 % (34.0-47.0); LYMPH # 0.3 K/uL (1.0-4.3); MEAN CELL VOLUME 81.7 fl (81.0-99.0); MEAN CORPUSCULAR HEMOGLOBIN 27.2 pg (27.0-31.0); MEAN CORPUSCULAR HGB CONC 33.3 g/dL (33.0-37.0); MEAN PLATELET VOLUME 10.6 fl (7.2-11.7); MONO # 0.1 K/uL (0.0-0.8); MONO % 0.8 % (0.0-10.0); NEUT # 7.6 K/uL (1.8-7.0); NEUT % 94.8 % (50.0-75.0); RED CELL DISTRIBUTION WIDTH 17.8 % (11.5-14.5)
[2017-04-07 05:53] LABS: PLATELET COUNT 14 K/uL (130-400)
[2017-04-07 06:01] LABS: BILIRUBIN,TOTAL 4.6 mg/dl (0.2-1.3); POTASSIUM 3.9 MMOL/L (3.6-5.0); TOTAL PROTEIN 4.9 G/DL (6.3-8.2)
[2017-04-07 06:17] LABS: CALCIUM 5.3 mg/dL (8.4-10.2)
[2017-04-07 07:05] LABS: TOTAL CELLS COUNTED 100
--- NOTE | 2017-04-07 07:49 | CP.PCM.PN ---
Subjective - Date & Time of Evaluation Date of Evaluation: 04/07/17 Time of Evaluation: 07:30 - Subjective Subjective: General Surgery Dr. Caldera Pt S&E @bedside. NAEO. pt intubated w/o sedation. pt currently on Levophed, Vasopressin, and Phenylephrine. Vent settings current at 14, 450, 5, 40%. Objective - Vital Signs/Intake and Output Vital Signs (last 24 hours): Temp Pulse Resp BP Pulse Ox 101 F H 90 25 H 112/75 100 04/07/17 06:15 04/07/17 06:00 04/07/17 06:00 04/07/17 06:00 04/07/17 06:00 Intake and Output: 04/07/17 04/07/17 06:59 18:59 Intake Total 2952 Output Total 250 Balance 2702 - Medications Medications: Current Medications Acetaminophen (Tylenol 650 Mg Supp) 650 mg [place] Q4 PRN PRN Reason: Temp >101 Last Admin: 04/06/17 16:15 Dose: 650 mg Acetaminophen (Tylenol 650mg/20.3ml Solution Ud) 650 mg PO Q4 PRN PRN Reason: Temperature Last Admin: 04/07/17 05:15 Dose: 650 mg Albuterol/Ipratropium (Duoneb 3 Mg/0.5 Mg (3 Ml) Ud) 3 ml INH RQ4 PRN PRN Reason: Shortness of Breath Last Admin: 04/04/17 19:23 Dose: 3 ml Vasopressin 100 units/ Sodium (Chloride) 105 mls @ 1.89 mls/hr IV .Q24H [facility]; 0.03 UNITS/MIN PRN Reason: Protocol Last Admin: 04/06/17 00:19 Dose: 0.03 units/min, 1.89 mls/hr Phenylephrine HCl 20 mg/ (Sodium Chloride) 252 mls @ 15.12 mls/hr IV .[id number] [facility]; 20 MCG/MIN PRN Reason: Protocol Last Admin: 04/07/17 00:22 Dose: 20 mcg/min, 15.12 mls/hr Meropenem 500 mg/ Sodium (Chloride) 100 mls @ 100 mls/hr IVPB Q12 [facility] PRN Reason: Protocol Last Admin: 04/06/17 21:19 Dose: 100 mls/hr Sodium Bicarbonate 80 meq/ (Sodium Chloride) 1,080 mls @ 150 mls/hr IV .Q7H12M [facility] Stop: 04/09/17 11:01 Last Admin: 04/06/17 22:00 Dose: 150 mls/hr Ascorbic Acid 1,500 mg/ Sodium (Chloride) 103 mls @ 103 mls/hr IVPB Q6H [facility] Stop: 04/08/17 10:29 Last Admin: 04/07/17 04:23 Dose: 103 mls/hr Hydrocortisone Sodium Succinate 50 mg/ Sodium Chloride 100 mls @ 100 mls/hr IV Q6 [facility] Last Admin: 04/07/17 05:20 Dose: 100 mls/hr Thiamine HCl 200 mg/ Sodium (Chloride) 102 mls @ 204 mls/hr IV Q12H [facility] Last Admin: 04/07/17 03:18 Dose: 204 mls/hr Gentamicin Sulfate/Sodium Chloride (Gentamicin 60mg/50ml Ns) 60 mg in 50 mls @ 49.261 mls/hr IVPB Q24H [facility] PRN Reason: Protocol Last Admin: 04/06/17 18:25 Dose: 49.261 mls/hr Norepinephrine Bitartrate 8 mg (/ Dextrose) 258 mls @ 48.37 mls/hr IV .Q5H21M ONE; 25 MCG/MIN PRN Reason: Protocol Stop: 04/07/17 08:30 Last Titration: 04/07/17 06:31 Dose: 22.5 mcg/min, 43.53 mls/hr Pantoprazole Sodium (Protonix Inj) 40 mg IVP Q12H [facility] Last Admin: 04/07/17 06:35 Dose: 40 mg - Labs Labs: 04/07/17 04:20 04/07/17 04:20 PT 22.7 Seconds (9.8-13.1) H D 04/05/17 07:10 INR 2.0 (0.9-1.2) H D 04/05/17 07:10 APTT 48.8 Seconds (25.6-37.1) H 04/05/17 07:10 - Constitutional Appears: Toxic, No Acute Distress - Head Exam Head Exam: NORMAL INSPECTION - ENT Exam ENT Exam: Mucous Membranes Moist Additional comments: ETT in place - Respiratory Exam Respiratory Exam: NORMAL BREATHING PATTERN (mechanical ventilation). absent: Accessory Muscle Use, Respiratory Distress - Cardiovascular Exam Cardiovascular Exam: REGULAR RHYTHM. absent: Bradycardia, Tachycardia - GI/Abdominal Exam GI & Abdominal Exam: Soft. absent: Distended, Firm, Guarding, Rigid, Tenderness , Rebound - Neurological Exam Neurological Exam: Alert, Awake, Oriented x3 - Psychiatric Exam Psychiatric exam: Normal Affect, Normal Mood - Skin Skin Exam: Dry, Intact, Warm Assessment and Plan - Assessment and Plan (Free Text) Assessment: 51 y/o F w/ DIC and sepsis 2/2 ESBL Kelebsiella bacteremia - cont Abx per ID - cont medical management per Critical Care - no surgical intervention at this time. - please reconsult if needed Pt discussed w/ Dr. Werner Heredia DO PGY2
--- NOTE | 2017-04-07 08:16 | CP.PCM.PN ---
Subjective - Date & Time of Evaluation Date of Evaluation: 04/07/17 Time of Evaluation: 08:13 - Subjective Subjective: Patient remain intubated and not responsive. at the bedside Urine output seems to be improving somewhat 1200 mL plus. Objective - Vital Signs/Intake and Output Vital Signs (last 24 hours): Temp Pulse Resp BP Pulse Ox 100.1 F H 82 18 117/75 100 04/07/17 08:00 04/07/17 08:00 04/07/17 08:00 04/07/17 08:00 04/07/17 08:00 Intake and Output: 04/07/17 04/07/17 06:59 18:59 Intake Total 2952 Output Total 250 Balance 2702 - Medications Medications: Current Medications Acetaminophen (Tylenol 650 Mg Supp) 650 mg IN Q4 PRN PRN Reason: Temp >101 Last Admin: 04/06/17 16:15 Dose: 650 mg Acetaminophen (Tylenol 650mg/20.3ml Solution Ud) 650 mg PO Q4 PRN PRN Reason: Temperature Last Admin: 04/07/17 05:15 Dose: 650 mg Albuterol/Ipratropium (Duoneb 3 Mg/0.5 Mg (3 Ml) Ud) 3 ml INH RQ4 PRN PRN Reason: Shortness of Breath Last Admin: 04/04/17 19:23 Dose: 3 ml Vasopressin 100 units/ Sodium (Chloride) 105 mls @ 1.89 mls/hr IV .Q24H [facility]; 0.03 UNITS/MIN PRN Reason: Protocol Last Admin: 04/06/17 00:19 Dose: 0.03 units/min, 1.89 mls/hr Phenylephrine HCl 20 mg/ (Sodium Chloride) 252 mls @ 15.12 mls/hr IV .Q44H35R [facility]; 20 MCG/MIN PRN Reason: Protocol Last Admin: 04/07/17 00:22 Dose: 20 mcg/min, 15.12 mls/hr Meropenem 500 mg/ Sodium (Chloride) 100 mls @ 100 mls/hr IVPB Q12 [facility] PRN Reason: Protocol Last Admin: 04/06/17 21:19 Dose: 100 mls/hr Sodium Bicarbonate 80 meq/ (Sodium Chloride) 1,080 mls @ 150 mls/hr IV .Q7H12M [facility] Stop: 04/09/17 11:01 Last Admin: 04/06/17 22:00 Dose: 150 mls/hr Ascorbic Acid 1,500 mg/ Sodium (Chloride) 103 mls @ 103 mls/hr IVPB Q6H [facility] Stop: 04/08/17 10:29 Last Admin: 04/07/17 04:23 Dose: 103 mls/hr Hydrocortisone Sodium Succinate 50 mg/ Sodium Chloride 100 mls @ 100 mls/hr IV Q6 [facility] Last Admin: 04/07/17 05:20 Dose: 100 mls/hr Thiamine HCl 200 mg/ Sodium (Chloride) 102 mls @ 204 mls/hr IV Q12H [facility] Last Admin: 04/07/17 03:18 Dose: 204 mls/hr Gentamicin Sulfate/Sodium Chloride (Gentamicin 60mg/50ml Ns) 60 mg in 50 mls @ 49.261 mls/hr IVPB Q24H [facility] PRN Reason: Protocol Last Admin: 04/06/17 18:25 Dose: 49.261 mls/hr Norepinephrine Bitartrate 8 mg (/ Dextrose) 258 mls @ 48.37 mls/hr IV .Q5H21M ONE; 25 MCG/MIN PRN Reason: Protocol Stop: 04/07/17 08:30 Last Titration: 04/07/17 06:31 Dose: 22.5 mcg/min, 43.53 mls/hr Pantoprazole Sodium (Protonix Inj) 40 mg IVP Q12H [facility] Last Admin: 04/07/17 06:35 Dose: 40 mg - Labs Labs: 04/07/17 04:20 04/07/17 04:20 PT 22.7 Seconds (9.8-13.1) H D 04/05/17 07:10 INR 2.0 (0.9-1.2) H D 04/05/17 07:10 APTT 48.8 Seconds (25.6-37.1) H 04/05/17 07:10 - Constitutional Appears: Chronically Ill - ENT Exam ENT Exam: Mucous Membranes Moist - Respiratory Exam Respiratory Exam: Rhonchi - Cardiovascular Exam Cardiovascular Exam: absent: JVD, Rubs - GI/Abdominal Exam GI & Abdominal Exam: Soft - Extremities Exam Extremities Exam: absent: Calf Tenderness - Back Exam Back Exam: absent: CVA tenderness (L), CVA tenderness (R) - Neurological Exam Neurological Exam: Altered Assessment and Plan (1) Acute renal injury due to circulatory failure Assessment & Plan: Acute kidney injury seems to be stable serum creatinine has gone up only 1.8. Urine output about 1200+ cc Metabolic acidosis seems to be corrected last CO2 25. Thrombocytopenia patient receiving platelet transfusion. Septic shock treatment as per primary team including protocol that include cortisone and vitamin C and thiamine. Patient remained comatose. With respiratory failure. Prognosis remain critical. Patient on multiple vasopressors. Hyponatremia with serum sodium 130 I discuss it with the RN at the bedside to switch all the intravenous medication mixt with normal saline. Since that creatinine and BU and and the potassium in the acidosis appeared to be okay for this morning we will hold all for hemodialysis today and rearrange for tomorrow if needed. Status: Acute (2) Altered mental status Status: Acute (3) GI bleed Status: Acute (4) Hypotension Status: Deleted
--- NOTE | 2017-04-07 09:14 | CP.PCM.PN ---
Subjective - Date & Time of Evaluation Date of Evaluation: 04/07/17 Time of Evaluation: 09:12 - Subjective Subjective: Pt's renal function and thje metabolic acidosis appears to be improving as is her blood pressure,. However the platelets are still 14K. Waiting for the [facility]. Objective - Vital Signs/Intake and Output Vital Signs (last 24 hours): Temp Pulse Resp BP Pulse Ox 100.1 F H 82 18 117/75 100 04/07/17 08:00 04/07/17 08:00 04/07/17 08:00 04/07/17 08:00 04/07/17 08:00 Intake and Output: 04/07/17 04/07/17 06:59 18:59 Intake Total 2952 Output Total 250 Balance 2702 - Medications Medications: Current Medications Acetaminophen (Tylenol 650 Mg Supp) 650 mg [place] Q4 PRN PRN Reason: Temp >101 Last Admin: 04/06/17 16:15 Dose: 650 mg Acetaminophen (Tylenol 650mg/20.3ml Solution Ud) 650 mg PO Q4 PRN PRN Reason: Temperature Last Admin: 04/07/17 05:15 Dose: 650 mg Albuterol/Ipratropium (Duoneb 3 Mg/0.5 Mg (3 Ml) Ud) 3 ml INH RQ4 PRN PRN Reason: Shortness of Breath Last Admin: 04/04/17 19:23 Dose: 3 ml Vasopressin 100 units/ Sodium (Chloride) 105 mls @ 1.89 mls/hr IV .Q24H [facility]; 0.03 UNITS/MIN PRN Reason: Protocol Last Admin: 04/06/17 00:19 Dose: 0.03 units/min, 1.89 mls/hr Phenylephrine HCl 20 mg/ (Sodium Chloride) 252 mls @ 15.12 mls/hr IV .[id number] [facility]; 20 MCG/MIN PRN Reason: Protocol Last Admin: 04/07/17 00:22 Dose: 20 mcg/min, 15.12 mls/hr Meropenem 500 mg/ Sodium (Chloride) 100 mls @ 100 mls/hr IVPB Q12 [facility] PRN Reason: Protocol Last Admin: 04/06/17 21:19 Dose: 100 mls/hr Sodium Bicarbonate 80 meq/ (Sodium Chloride) 1,080 mls @ 150 mls/hr IV .Q7H12M [facility] Stop: 04/09/17 11:01 Last Admin: 04/06/17 22:00 Dose: 150 mls/hr Ascorbic Acid 1,500 mg/ Sodium (Chloride) 103 mls @ 103 mls/hr IVPB Q6H [facility] Stop: 04/08/17 10:29 Last Admin: 04/07/17 04:23 Dose: 103 mls/hr Hydrocortisone Sodium Succinate 50 mg/ Sodium Chloride 100 mls @ 100 mls/hr IV Q6 [facility] Last Admin: 04/07/17 05:20 Dose: 100 mls/hr Thiamine HCl 200 mg/ Sodium (Chloride) 102 mls @ 204 mls/hr IV Q12H [facility] Last Admin: 04/07/17 03:18 Dose: 204 mls/hr Gentamicin Sulfate/Sodium Chloride (Gentamicin 60mg/50ml Ns) 60 mg in 50 mls @ 49.261 mls/hr IVPB Q24H [facility] PRN Reason: Protocol Last Admin: 04/06/17 18:25 Dose: 49.261 mls/hr Pantoprazole Sodium (Protonix Inj) 40 mg IVP Q12H [facility] Last Admin: 04/07/17 06:35 Dose: 40 mg - Labs Labs: 04/07/17 04:20 04/07/17 04:20 PT 22.7 Seconds (9.8-13.1) H D 04/05/17 07:10 INR 2.0 (0.9-1.2) H D 04/05/17 07:10 APTT 48.8 Seconds (25.6-37.1) H 04/05/17 07:10
[2017-04-07] MEDS: SODIUM BICARBONATE IV SCH ×2 (09:38→18:22)
[2017-04-07] MEDS: SODIUM CHLORIDE 0.45% IV SCH ×2 (09:38→18:22)
[2017-04-07] MEDS: Meropenem 500 MG in Sodium Chloride 0.9% 100 ML IVPB SCH ×2 (09:42→21:42)
[2017-04-07 11:01] LABS: NEUTROPHIL 90 % (42-75)
--- NOTE | 2017-04-07 11:58 | VASCULAR ---
PROCEDURE: Date of procedure: 04/04/2017 Procedure: Placement of a non tunneled hemodialysis catheter Medications: 6cc 1 percent lidocaine History Renal failure TECHNIQUE: Following informed consent, the patient's right neck was prepped and draped in the usual sterile fashion. Ultrasound showed a patent and compressible right internal jugular vein. After the skin was anesthetized with 1% lidocaine, the internal jugular vein was accessed under direct ultrasound guidance with micropuncture technique and a guidewire was advanced into the SVC. The venotomy was then dilated to accommodate a non tunneled 15 hemodialysis catheter. An image documenting ultrasound guidance for vascular access was permanently saved. The catheter was tested and has adequate blood return for hemodialysis. The catheter was flushed and loaded with heparin per specified amounts. The catheter was secured to patient's skin. A dressing was applied. Post procedure chest x-ray showed a hemodialysis catheter at the caval atrial junction. IMPRESSION: Placement of a non tunneled 15 centimeter hemodialysis catheter via the right internal jugular vein. The tip of the catheter was confirmed with a postoperative chest x-ray and is at the cavoatrial junction. The catheter is functional ready for use.
--- NOTE | 2017-04-07 12:07 | RAD ---
HISTORY: pt intubated COMPARISON: Chest x-ray performed 04/06/17 TECHNIQUE: Chest, one view. FINDINGS: Endotracheal tube, nasogastric tube, right-sided dialysis catheter re-identified. Numerous external wires and leads obscure evaluation of the underlying parenchyma. Examination limited by habitus and hypoinflation. LUNGS: Bibasilar atelectasis/infiltrates. Pulmonary venous congestion. Probable trace right pleural effusion. No definite pneumothorax. CARDIOVASCULAR: Heart size appears within normal limits. OSSEOUS STRUCTURES: No acute osseous abnormality identified. VISUALIZED UPPER ABDOMEN: Unremarkable. OTHER FINDINGS: None. IMPRESSION: Endotracheal tube, nasogastric tube, right-sided dialysis catheter re-identified. Bibasilar atelectasis/infiltrates. Pulmonary venous congestion. Probable trace right pleural effusion.
--- NOTE | 2017-04-07 15:08 | CP.PCM.PN ---
Subjective - Date & Time of Evaluation Date of Evaluation: 04/07/17 Time of Evaluation: 10:40 - Subjective Subjective: F/u Respiratory failure. Pt unresponsive. Objective - Vital Signs/Intake and Output Vital Signs (last 24 hours): Temp Pulse Resp BP Pulse Ox 102.4 F H 86 21 96/69 L 100 04/07/17 12:15 04/07/17 12:00 04/07/17 12:00 04/07/17 12:00 04/07/17 12:00 Intake and Output: 04/07/17 04/07/17 06:59 18:59 Intake Total 2952 Output Total 250 Balance 2702 - Medications Medications: Current Medications Acetaminophen (Tylenol 650 Mg Supp) 650 mg IN Q4 PRN PRN Reason: Temp >101 Last Admin: 04/06/17 16:15 Dose: 650 mg Acetaminophen (Tylenol 650mg/20.3ml Solution Ud) 650 mg PO Q4 PRN PRN Reason: Temperature Last Admin: 04/07/17 12:15 Dose: 650 mg Albuterol/Ipratropium (Duoneb 3 Mg/0.5 Mg (3 Ml) Ud) 3 ml INH RQ4 PRN PRN Reason: Shortness of Breath Last Admin: 04/04/17 19:23 Dose: 3 ml Vasopressin 100 units/ Sodium (Chloride) 105 mls @ 1.89 mls/hr IV .Q24H [facility]; 0.03 UNITS/MIN PRN Reason: Protocol Last Admin: 04/06/17 00:19 Dose: 0.03 units/min, 1.89 mls/hr Phenylephrine HCl 20 mg/ (Sodium Chloride) 252 mls @ 15.12 mls/hr IV .[id number] [facility]; 20 MCG/MIN PRN Reason: Protocol Last Admin: 04/07/17 00:22 Dose: 20 mcg/min, 15.12 mls/hr Meropenem 500 mg/ Sodium (Chloride) 100 mls @ 100 mls/hr IVPB Q12 [facility] PRN Reason: Protocol Last Admin: 04/07/17 09:42 Dose: 100 mls/hr Sodium Bicarbonate 80 meq/ (Sodium Chloride) 1,080 mls @ 150 mls/hr IV .Q7H12M [facility] Stop: 04/09/17 11:01 Last Admin: 04/07/17 09:38 Dose: 150 mls/hr Ascorbic Acid 1,500 mg/ Sodium (Chloride) 103 mls @ 103 mls/hr IVPB Q6H [facility] Stop: 04/10/17 10:29 Last Admin: 04/07/17 10:30 Dose: 103 mls/hr Hydrocortisone Sodium Succinate 50 mg/ Sodium Chloride 100 mls @ 100 mls/hr IV Q6 [facility] Last Admin: 04/07/17 09:44 Dose: 100 mls/hr Thiamine HCl 200 mg/ Sodium (Chloride) 102 mls @ 204 mls/hr IV Q12H [facility] Last Admin: 04/07/17 03:18 Dose: 204 mls/hr Gentamicin Sulfate/Sodium Chloride (Gentamicin 60mg/50ml Ns) 60 mg in 50 mls @ 49.261 mls/hr IVPB Q24H [facility] PRN Reason: Protocol Last Admin: 04/06/17 18:25 Dose: 49.261 mls/hr Norepinephrine Bitartrate 4 mg (/ Dextrose) 254 mls @ 9.52 mls/hr IV .Q24H [facility] ; 2.5 MCG/MIN PRN Reason: Protocol Last Admin: 04/07/17 11:29 Dose: 2.5 mcg/min, 9.52 mls/hr Pantoprazole Sodium (Protonix Inj) 40 mg IVP Q12H [facility] Last Admin: 04/07/17 06:35 Dose: 40 mg - Labs Labs: 04/07/17 04:20 04/07/17 04:20 PT 22.7 Seconds (9.8-13.1) H D 04/05/17 07:10 INR 2.0 (0.9-1.2) H D 04/05/17 07:10 APTT 48.8 Seconds (25.6-37.1) H 04/05/17 07:10 - Constitutional Appears: Chronically Ill - Head Exam Head Exam: NORMAL INSPECTION - Eye Exam Eye Exam: PERRL - ENT Exam Additional comments: Intubated - Neck Exam Neck Exam: Normal Inspection - Respiratory Exam Respiratory Exam: Decreased Breath Sounds (at bases), Rhonchi (b/l) - Cardiovascular Exam Cardiovascular Exam: REGULAR RHYTHM - GI/Abdominal Exam GI & Abdominal Exam: Soft, Normal Bowel Sounds Additional comments: surgical wound open mid lower abdomen , yellow sloughy base - Extremities Exam Extremities Exam: Pedal Edema - Back Exam Additional comments: MASD Sacral , buttock. - Neurological Exam Additional comments: Comatose, unresponsive - Psychiatric Exam Additional comments: Unresponsive. - Skin Skin Exam: Warm Assessment and Plan (1) Acute respiratory failure Status: Acute (2) Shock Status: Deleted (3) Pneumonia Status: Acute (4) Acute renal failure (ARF) Status: Acute (5) Anemia Status: Acute (6) Hematuria, gross Status: Deleted (7) Thrombocytopenia Status: Resolved (8) History of pulmonary embolus (PE) Status: Acute - Assessment and Plan (Free Text) Plan: Continue Ventilatory support, continue Vassopressor, Merren, HD. ICU Time: 38 min.
--- NOTE | 2017-04-07 17:06 | CP.CCUPN ---
CCU Subjective - Physician Review Subjective (Free Text): VitC protocol started yesterday afternoon, marked improvement noted in BP response to vasopressors- able to be titrated downward- now on: Levophed 12 mcg/ min, Jhonny 20 mcg/min, Vasopressin 0.03units/min. FiO2 requirements unchanged; neuromental status does not appear better objectively, but family feel she is more responsive. Overall, appears more grossly edematous, seen by Nephro and HD on hold for today. Other vitals and I/O's reviewed. Fever spike to 104.7 max yesterday, none today so far. ROS: Unobtainable from intubated Patient. No other pertinent negs or positives on 10+ system review. PMSFH: All Nursing and physician documentation reviewed to date; no new pertinent info noted relevant to current medical problems. CXR: elevated R hemidiaphragm persists, other mild interstitial changes seen near RML and R hilar area. ( my interp). MAJOR PROBLEMS: 1. +Kleb pneumoniae (ESBL); Merrem started; possible Ischemic Bowel also high possibility given extent of acidosis and shock 2. Septic Shock 2 #1 3. Acute Renal Failure / ATN 4. Acute Resp Failure, 2 pneumonia 5. Thrombocytopenia / Coagulopathy PLAN: 1. Vit C Septic Shock protocol ( following Dr. Huggins work) 2. Vasopressors on wean. 3. Limit or stop regular IVF intake, has been on alkalinized fluids, pH improved. May try Lasix PRN to promote urine flow and mobilize edema fluid. 4. Aware platelets ordered by Hematology, already infused, but no active bleeding noted nor any recent significant drops in Hgb. 5. Serial director credit risk, Serial lactates Time spent with this patient did not overlap with any other provider's medical or critical care time. Additionally the code selected for the services rendered in this note includes the time spent: talking to the patients family, associated physicians and reviewing hospital data/results not listed here which extended to a total of 40 minutes. CCU Objective - Vital Signs / Intake & Output Vital Signs (Last 4 hours): Vital Signs Temp Pulse BP Pulse Ox 04/07/17 16:00 101.4 F H 88 101/68 100 04/07/17 13:15 101.0 F H Intake and Output (Last 8hrs): Intake & Output 04/07/17 04/07/17 04/07/17 06:59 14:59 22:59 Intake Total 2952 Output Total 250 Balance 2702 Intake: IV 1902 Intake, Piggyback 830 Tube Feeding 220 Output: Urine 250 Urethral (Overton) 250 - Physical Exam Head: Positive for: Atraumatic, Normocephalic Pupils: Positive for: PERRL Extroacular Muscles: Positive for: EOMI Conjunctiva: Negative for: Icteric Mouth: Positive for: Dry (bloody) Neck: Negative for: JVD Respiratory/Chest: Positive for: Clear to Auscultation, Good Air Exchange. Negative for: Accessory Muscle Use, Wheezes Cardiovascular: Positive for: Regular Rate and Rhythm. Negative for: Murmurs, Rub Abdomen: Positive for: Normal Bowel Sounds. Negative for: Tenderness, Distention Upper Extremity: Positive for: Edema Lower Extremity: Positive for: Edema. Negative for: CALF TENDERNESS, NORMAL PULSES, Cyanosis Psychiatric: Positive for: Alert, Lethargic - Medications Active Medications: Active Medications Generic Name Dose Route Start Last Admin Trade Name Freq PRN Reason Stop Dose Admin Acetaminophen 650 mg 04/06/17 05:00 04/06/17 16:15 Tylenol 650 Mg Supp VT 650 mg Q4 PRN Administration Temp >101 Acetaminophen 650 mg 04/07/17 04:12 04/07/17 12:15 Tylenol 650mg/20.3ml Solution Ud PO 650 mg Q4 PRN Administration Temperature Albuterol/Ipratropium 3 ml 04/04/17 19:10 04/04/17 19:23 Duoneb 3 Mg/0.5 Mg (3 Ml) Ud INH 3 ml RQ4 PRN Administration Shortness of Breath Vasopressin 100 units/ Sodium 105 mls @ 1.89 mls/hr 04/05/17 23:45 04/06/17 00:19 Chloride IV 0.03 units/min .Q24H ODETTE 1.89 mls/hr Protocol Administration 0.03 UNITS/MIN Phenylephrine HCl 20 mg/ 252 mls @ 15.12 mls/hr 04/06/17 07:45 04/07/17 00:22 Sodium Chloride IV 20 mcg/min .[id number] ODETTE 15.12 mls/hr Protocol Administration 20 MCG/MIN Meropenem 500 mg/ Sodium 100 mls @ 100 mls/hr 04/06/17 10:45 04/07/17 09:42 Chloride IVPB 100 mls/hr Q12 ODETTE Administration Protocol Sodium Bicarbonate 80 meq/ 1,080 mls @ 150 mls/hr 04/06/17 11:00 04/07/17 09: 38 Sodium Chloride IV 04/09/17 11:01 150 mls/hr .[id number] ODETTE Administration Ascorbic Acid 1,500 mg/ Sodium 103 mls @ 103 mls/hr 04/06/17 15:30 04/07/17 15:30 Chloride IVPB 04/10/17 10:29 103 mls/hr Q6H ODETTE Administration Hydrocortisone Sodium 100 mls @ 100 mls/hr 04/06/17 16:00 04/07/17 16:00 Succinate 50 mg/ Sodium IV 100 mls/hr Chloride Q6 ODETTE Administration Thiamine HCl 200 mg/ Sodium 102 mls @ 204 mls/hr 04/06/17 15:30 04/07/17 15: 30 Chloride IV 204 mls/hr Q12H ODETTE Administration Gentamicin Sulfate/Sodium Chloride 60 mg in 50 mls @ 49.261 mls/hr 04/06/17 18 :30 04/06/17 18:25 Gentamicin 60mg/50ml Ns IVPB 49.261 mls/hr Q24H ODETTE Administration Protocol Norepinephrine Bitartrate 4 mg 254 mls @ 9.52 mls/hr 04/07/17 11:00 04/07/17 11:29 / Dextrose IV 2.5 mcg/min .Q24H ODETTE 9.52 mls/hr Protocol Administration 2.5 MCG/MIN Pantoprazole Sodium 40 mg 04/04/17 18:00 04/07/17 06:35 Protonix Inj IVP 40 mg Q12H ODETTE Administration - Patient Studies Lab Studies: Microbiology Studies 04/05/17 06:00 Gram Stain - Final Abdomen Wound Culture - Preliminary Pseudomonas Aeruginosa Gram Negative Jeremi#2 Gram Positive Cocci Lab Studies 04/07/17 04/07/17 04/07/17 Range/Units 04:50 04:20 04:20 WBC 8.0 (4.8-10.8) K/uL RBC 3.24 L (3.80-5.20) Mil/uL Hgb 8.8 L (12.0-16.0) g/dL Hct 26.4 L (34.0-47.0) % MCV 81.7 (81.0-99.0) fl MCH 27.2 (27.0-31.0) pg MCHC 33.3 (33.0-37.0) g/dL RDW 17.8 H (11.5-14.5) % Plt Count 14 L* (130-400) K/uL MPV 10.6 (7.2-11.7) fl Neut % (Auto) 94.8 H (50.0-75.0) % Lymph % (Auto) 4.0 L (20.0-40.0) % [place] % (Auto) 0.8 (0.0-10.0) % Eos % (Auto) 0.3 (0.0-4.0) % Baso % (Auto) 0.1 (0.0-2.0) % Neut # 7.6 H (1.8-7.0) K/uL Lymph # 0.3 L (1.0-4.3) K/uL [place] # 0.1 (0.0-0.8) K/uL Eos # 0.0 (0.0-0.7) K/uL Baso # 0.0 (0.0-0.2) K/uL Neutrophils % (Manual) 90 H (42-75) % Band Neutrophils % 2 (0-2) % Lymphocytes % (Manual) 3 L (20-50) % Monocytes % (Manual) 5 (0-10) % Toxic Granulation Present Platelet Estimate Decreased L (NORMAL) Hypochromasia (manual) Moderate Anisocytosis (manual) Slight Target Cells Slight Tear Drop Cells Slight pCO2 32 L (35-45) mm/Hg pO2 135 H (80-100) mm/Hg HCO3 23.9 (21-28) mmol/L ABG pH 7.45 (7.35-7.45) ABG Total CO2 23.2 (22-28) mmol/L ABG O2 Saturation 100.9 H (95-98) % ABG O2 Content 12.6 L (15-23) ML/dL ABG Base Excess -1.4 (-2.0-3.0) mmol/L ABG Hemoglobin 9.0 L (11.7-17.4) g/dL ABG Carboxyhemoglobin 1.8 H (0.5-1.5) % POC ABG HHb (Measured) -0.9 L (0.0-5.0) % ABG Methemoglobin 1.4 (0.0-3.0) % ABG O2 Capacity 12.5 L (16-24) mL/dL Domingo Test Yes A-a O2 Difference 39.0 mm/Hg Hgb O2 Saturation 97.7 (95.0-98.0) % Vent Mode A/c Mechanical Rate 14 FiO2 30.0 % Tidal Volume 450 PEEP 5 Sodium 130 L (132-148) mmol/l Potassium 3.9 (3.6-5.0) MMOL/L Chloride 93 L (98-107) mmol/L Carbon Dioxide 25 (22-30) mmol/L Anion Gap 16 (10-20) BUN 15 (7-17) mg/dl Creatinine 1.8 H (0.7-1.2) mg/dL Est GFR ( Amer) 36 Est GFR (Non-Af Amer) 30 Random Glucose 122 H (65-105) mg/dL Calcium 5.3 L* (8.4-10.2) mg/dL Total Bilirubin 4.6 H (0.2-1.3) mg/dl AST 32 (14-36) U/L ALT 39 (9-52) U/L Alkaline Phosphatase 224 H (38-126) U/L Total Protein 4.9 L (6.3-8.2) G/DL Albumin 2.5 L (3.5-5.0) g/dL Globulin 2.4 (2.2-3.9) gm/dL Albumin/Globulin Ratio 1.0 (1.0-2.1) Procalcitonin (0.19-0.49) NG/ML Blood Type Antibody Screen BBK History Checked 04/07/17 04/06/17 Range/Units 01:30 09:04 WBC (4.8-10.8) K/uL RBC (3.80-5.20) Mil/uL Hgb (12.0-16.0) g/dL Hct (34.0-47.0) % MCV (81.0-99.0) fl MCH (27.0-31.0) pg MCHC (33.0-37.0) g/dL RDW (11.5-14.5) % Plt Count (130-400) K/uL MPV (7.2-11.7) fl Neut % (Auto) (50.0-75.0) % Lymph % (Auto) (20.0-40.0) % [place] % (Auto) (0.0-10.0) % Eos % (Auto) (0.0-4.0) % Baso % (Auto) (0.0-2.0) % Neut # (1.8-7.0) K/uL Lymph # (1.0-4.3) K/uL [place] # (0.0-0.8) K/uL Eos # (0.0-0.7) K/uL Baso # (0.0-0.2) K/uL Neutrophils % (Manual) (42-75) % Band Neutrophils % (0-2) % Lymphocytes % (Manual) (20-50) % Monocytes % (Manual) (0-10) % Toxic Granulation Platelet Estimate (NORMAL) Hypochromasia (manual) Anisocytosis (manual) Target Cells Tear Drop Cells pCO2 (35-45) mm/Hg pO2 (80-100) mm/Hg HCO3 (21-28) mmol/L ABG pH (7.35-7.45) ABG Total CO2 (22-28) mmol/L ABG O2 Saturation (95-98) % ABG O2 Content (15-23) ML/dL ABG Base Excess (-2.0-3.0) mmol/L ABG Hemoglobin (11.7-17.4) g/dL ABG Carboxyhemoglobin (0.5-1.5) % POC ABG HHb (Measured) (0.0-5.0) % ABG Methemoglobin (0.0-3.0) % ABG O2 Capacity (16-24) mL/dL Domingo Test A-a O2 Difference mm/Hg Hgb O2 Saturation (95.0-98.0) % Vent Mode Mechanical Rate FiO2 % Tidal Volume PEEP Sodium (132-148) mmol/l Potassium (3.6-5.0) MMOL/L Chloride (98-107) mmol/L Carbon Dioxide (22-30) mmol/L Anion Gap (10-20) BUN (7-17) mg/dl Creatinine (0.7-1.2) mg/dL Est GFR ( Amer) Est GFR (Non-Af Amer) Random Glucose (65-105) mg/dL Calcium (8.4-10.2) mg/dL Total Bilirubin (0.2-1.3) mg/dl AST (14-36) U/L ALT (9-52) U/L Alkaline Phosphatase (38-126) U/L Total Protein (6.3-8.2) G/DL Albumin (3.5-5.0) g/dL Globulin (2.2-3.9) gm/dL Albumin/Globulin Ratio (1.0-2.1) Procalcitonin 31.21 H (0.19-0.49) NG/ML Blood Type A POSITIVE Antibody Screen Negative BBK History Checked Patient has bt Laboratory Results - last 24 hr 04/06/17 04/07/17 04/07/17 09:04 01:30 04:20 WBC 8.0 RBC 3.24 L Hgb 8.8 L Hct 26.4 L MCV 81.7 MCH 27.2 MCHC 33.3 RDW 17.8 H Plt Count 14 L* MPV 10.6 Neut % (Auto) 94.8 H Lymph % (Auto) 4.0 L [place] % (Auto) 0.8 Eos % (Auto) 0.3 Baso % (Auto) 0.1 Neut # 7.6 H Lymph # 0.3 L [place] # 0.1 Eos # 0.0 Baso # 0.0 Neutrophils % (Manual) 90 H Band Neutrophils % 2 Lymphocytes % (Manual) 3 L Monocytes % (Manual) 5 Toxic Granulation Present Platelet Estimate Decreased L Hypochromasia (manual) Moderate Anisocytosis (manual) Slight Target Cells Slight Tear Drop Cells Slight pCO2 pO2 HCO3 ABG pH ABG Total CO2 ABG O2 Saturation ABG O2 Content ABG Base Excess ABG Hemoglobin ABG Carboxyhemoglobin POC ABG HHb (Measured) ABG Methemoglobin ABG O2 Capacity Domingo Test A-a O2 Difference Hgb O2 Saturation Vent Mode Mechanical Rate FiO2 Tidal Volume PEEP Sodium Potassium Chloride Carbon Dioxide Anion Gap BUN Creatinine Est GFR ( Amer) Est GFR (Non-Af Amer) Random Glucose Calcium Total Bilirubin AST ALT Alkaline Phosphatase Total Protein Albumin Globulin Albumin/Globulin Ratio Procalcitonin 31.21 H Blood Type A POSITIVE Antibody Screen Negative BBK History Checked Patient has bt 11/09/17 11/09/17 04:20 04:50 WBC RBC Hgb Hct MCV MCH MCHC RDW Plt Count MPV Neut % (Auto) Lymph % (Auto) [place] % (Auto) Eos % (Auto) Baso % (Auto) Neut # Lymph # [place] # Eos # Baso # Neutrophils % (Manual) Band Neutrophils % Lymphocytes % (Manual) Monocytes % (Manual) Toxic Granulation Platelet Estimate Hypochromasia (manual) Anisocytosis (manual) Target Cells Tear Drop Cells pCO2 32 L pO2 135 H HCO3 23.9 ABG pH 7.45 ABG Total CO2 23.2 ABG O2 Saturation 100.9 H ABG O2 Content 12.6 L ABG Base Excess -1.4 ABG Hemoglobin 9.0 L ABG Carboxyhemoglobin 1.8 H POC ABG HHb (Measured) -0.9 L ABG Methemoglobin 1.4 ABG O2 Capacity 12.5 L Domingo Test Yes A-a O2 Difference 39.0 Hgb O2 Saturation 97.7 Vent Mode A/c Mechanical Rate 14 FiO2 30.0 Tidal Volume 450 PEEP 5 Sodium 130 L Potassium 3.9 Chloride 93 L Carbon Dioxide 25 Anion Gap 16 BUN 15 Creatinine 1.8 H Est GFR ( Amer) 36 Est GFR (Non-Af Amer) 30 Random Glucose 122 H Calcium 5.3 L* Total Bilirubin 4.6 H AST 32 ALT 39 Alkaline Phosphatase 224 H Total Protein 4.9 L Albumin 2.5 L Globulin 2.4 Albumin/Globulin Ratio 1.0 Procalcitonin Blood Type Antibody Screen BBK History Checked Radiology Interpretations (Free Text): as above Fingerstick Blood Sugar Results: 221 Review of Systems - Review of Systems Systems not reviewed;Unavailable: Intubated Critical Care Progress Note - Ventilator Checklist Head of Bed 30 Degrees: Yes Daily Sedation Vacation: Yes Daily Assessment of Readiness to Wean: Yes Daily Spontaneous Breathing Trial: No (too hemodynamically unstable) PUD Prophalyxis: Yes DVT Prophylaxis: Yes Oral Care with Chlorhexidine Gluconate {CHG}: Yes - Vent Settings MODE:: ASSIST CONTROL TIDAL VOLUME:: 450 RESP RATE:: 14 FIO2:: 40 PEEP:: 5 - Extremities/Vascular Does the Patient have a Central Venous Catheter?: Yes Insertion Site: Femoral Vein Does the Patient need a Central Venous Catheter?: Yes Does the Patient have a Overton Catheter?: Yes Does the Patient need a Overton Catheter?: Yes Catheter Insertion Criteria: Need for accurate measurement of output in critically ill patient - Restraints Justification for Restraints: High risk for self extubation - Prophylaxis GI Prophylaxis GI: PPI - Prophylaxis DVT Prophylaxis DVT: SCDs
[2017-04-07] MEDS: Gentamicin 60mg/50ml NS 60 MG/50 ML BAG IVPB SCH (20:41)
[2017-04-08] MEDS: Thiamine 200 MG in Sodium Chloride 0.9% 100 ML IV SCH ×2 (03:56→16:59)
[2017-04-08] MEDS: Acetaminophen 650mg/20.3ml solution UD PO PRN (04:15)
[2017-04-08] MEDS: Hydrocortisone- 50 MG in Sodium Chloride 0.9% 100 ML IV SCH ×4 (05:06→21:07)
[2017-04-08 05:09] LABS: VENOUS BLOOD GAS BASE EXCESS -3.3 mmol/L (0.0-2.0); VENOUS BLOOD GAS MODE PRVC AC; VENOUS BLOOD GAS PCO2 36 mmHg (40-60); VENOUS BLOOD PH 7.38 (7.32-7.43)
[2017-04-08 05:12] LABS: ABG ALLEN TEST YES; ABG MECHANICAL RATE 14; ARTERIAL BLOOD GAS HCO3 22.9 mmol/L (21-28); ARTERIAL BLOOD GAS MODE PRVC AC; ARTERIAL BLOOD GAS O2 CAPACITY 11.7 mL/dL (16-24); ARTERIAL BLOOD GAS O2 CONTENT 11.6 ML/dL (15-23); ARTERIAL BLOOD GAS PH 7.47 (7.35-7.45); ARTERIAL BLOOD GAS PO2 113 mm/Hg (80-100); ARTERIAL BLOOD HGB O2 SAT 97.5 % (95.0-98.0); ATERIAL BLOOD GAS PEEP 5; CARBOXYHEMOGLOBIN 0.6 % (0.5-1.5); HHB 0.7 % (0.0-5.0); METHEMOGLOBIN 1.2 % (0.0-3.0)
[2017-04-08 06:10] LABS: BASO % 0.3 % (0.0-2.0); EOS % 0.1 % (0.0-4.0); HEMATOCRIT 24.5 % (34.0-47.0); LYMPH # 0.6 K/uL (1.0-4.3); LYMPH % 7.6 % (20.0-40.0); MEAN CELL VOLUME 82.5 fl (81.0-99.0); MEAN CORPUSCULAR HEMOGLOBIN 27.3 pg (27.0-31.0); MEAN PLATELET VOLUME 10.9 fl (7.2-11.7); MONO % 0.5 % (0.0-10.0); NEUT # 7.6 K/uL (1.8-7.0); NEUT % 91.5 % (50.0-75.0); NRBC % 0.1 % (0.0-0.0); RED CELL DISTRIBUTION WIDTH 17.5 % (11.5-14.5); WHITE BLOOD COUNT 8.3 K/uL (4.8-10.8)
--- NOTE | 2017-04-08 06:51 | CP.CCUPN ---
CCU Subjective - Physician Review Subjective (Free Text): Hemodynamics unchanged in the presence of persister fever with T max 102.9 F overnight and remains at 102F now. Three major vasopressors remain, albeit at lower doses with Levophed and Phenylephrine. Neuromental status not much improved, poorly responsive to verbal and tactile stimuli, slight response to pain with mild facial grimace. Oxygen requirements stable, urine output oliguric and remains in + fluid balance, 2.7L last 24H, was 7.6L the previous past day. Last HD on 04/06. on Jevity feeds at 20 ml/hr. Other vitals and I/O's reviewed. ROS: Unobtainable from intubated Patient. No other pertinent negs or positives on 10+ system review. PMSFH: All Nursing and physician documentation reviewed to date; no new pertinent info noted relevant to current medical problems. CXR: elevated R hemidiaphragm persists, other mild interstitial changes seen near RML and R hilar area. ( my interp). MAJOR PROBLEMS: 1. +Kleb pneumoniae (ESBL); Merrem started; possible Ischemic Bowel also high possibility given extent of acidosis and shock 2. Septic Shock 2 #1 3. Acute Renal Failure / ATN 4. Acute Resp Failure, 2 pneumonia 5. Thrombocytopenia / Coagulopathy PLAN: 1. Add Dobutamine, follow serial mixed venous SvO2. 2. Abx as per ID. Gentamycin levels a bit high. 3. No MV weans today yet with variable BP levels and vasoactive meds on active titration. 4. Vitamin C shortage and back order noted, last IV available IV dose this afternoon. 5. Check repeat Fibrinogen level. No significant improvement even with steroids. 6. Consider changing invasive lines with persistent fevers. re-panculture, CXR not worse. Time spent with this patient did not overlap with any other provider's medical or critical care time. Additionally the code selected for the services rendered in this note includes the time spent: talking to the patients family, associated physicians and reviewing hospital data/results not listed here which extended to a total of 40 minutes. CCU Objective - Vital Signs / Intake & Output Vital Signs (Last 4 hours): Vital Signs Temp Pulse Resp BP Pulse Ox 04/08/17 05:15 102 F H 04/08/17 05:00 90 24 105/73 100 04/08/17 04:15 102 F H 04/08/17 04:00 102 F H 93 H 22 106/69 100 04/08/17 03:00 93 H 22 106/69 100 Intake and Output (Last 8hrs): Intake & Output 04/07/17 04/07/17 04/08/17 14:59 22:59 06:59 Intake Total 357 2335 Output Total 700 200 Balance -343 2135 Intake: IV 357 750 Intake, Piggyback 1365 Oral 40 Tube Feeding 180 Output: Urine 200 200 Urethral (Overton) 200 200 Stool 500 Other: # Bowel Movements 2 1 - Physical Exam Head: Positive for: Atraumatic, Normocephalic Pupils: Positive for: PERRL Extroacular Muscles: Positive for: EOMI Conjunctiva: Negative for: Icteric Mouth: Positive for: Dry (bloody) Neck: Negative for: JVD Respiratory/Chest: Positive for: Clear to Auscultation, Good Air Exchange. Negative for: Accessory Muscle Use, Wheezes Cardiovascular: Positive for: Regular Rate and Rhythm. Negative for: Murmurs, Rub Abdomen: Positive for: Normal Bowel Sounds. Negative for: Tenderness, Distention Upper Extremity: Positive for: Edema Lower Extremity: Positive for: Edema. Negative for: CALF TENDERNESS, NORMAL PULSES, Cyanosis Psychiatric: Positive for: Alert, Lethargic - Medications Active Medications: Active Medications Generic Name Dose Route Start Last Admin Trade Name Freq PRN Reason Stop Dose Admin Acetaminophen 650 mg 04/06/17 05:00 04/06/17 16:15 Tylenol 650 Mg Supp IA 650 mg Q4 PRN Administration Temp >101 Acetaminophen 650 mg 04/07/17 04:12 04/08/17 04:15 Tylenol 650mg/20.3ml Solution Ud PO 650 mg Q4 PRN Administration Temperature Albuterol/Ipratropium 3 ml 04/04/17 19:10 04/04/17 19:23 Duoneb 3 Mg/0.5 Mg (3 Ml) Ud INH 3 ml RQ4 PRN Administration Shortness of Breath Vasopressin 100 units/ Sodium 105 mls @ 1.89 mls/hr 04/05/17 23:45 04/07/17 18:23 Chloride IV 0.03 units/min .Q24H ODETTE 1.89 mls/hr Protocol Administration 0.03 UNITS/MIN Phenylephrine HCl 20 mg/ 252 mls @ 15.12 mls/hr 04/06/17 07:45 04/07/17 18:26 Sodium Chloride IV 20 mcg/min .[id number] ODETTE 15.12 mls/hr Protocol Administration 20 MCG/MIN Meropenem 500 mg/ Sodium 100 mls @ 100 mls/hr 04/06/17 10:45 04/07/17 21:42 Chloride IVPB 100 mls/hr Q12 ODETTE Administration Protocol Ascorbic Acid 1,500 mg/ Sodium 103 mls @ 103 mls/hr 04/06/17 15:30 04/08/17 03:12 Chloride IVPB 04/10/17 10:29 103 mls/hr Q6H ODETTE Administration Hydrocortisone Sodium 100 mls @ 100 mls/hr 04/06/17 16:00 04/08/17 05:06 Succinate 50 mg/ Sodium IV 100 mls/hr Chloride Q6 ODETTE Administration Thiamine HCl 200 mg/ Sodium 102 mls @ 204 mls/hr 04/06/17 15:30 04/08/17 03: 56 Chloride IV 204 mls/hr Q12H ODETTE Administration Gentamicin Sulfate/Sodium Chloride 60 mg in 50 mls @ 49.261 mls/hr 04/06/17 18 :30 04/07/17 20:41 Gentamicin 60mg/50ml Ns IVPB 49.261 mls/hr Q24H ODETTE Administration Protocol Norepinephrine Bitartrate 4 mg 254 mls @ 9.52 mls/hr 04/07/17 11:00 04/07/17 11:29 / Dextrose IV 2.5 mcg/min .Q24H ODETTE 9.52 mls/hr Protocol Administration 2.5 MCG/MIN Norepinephrine Bitartrate 4 mg 254 mls @ 47.62 mls/hr 04/07/17 22:45 00:00 / Dextrose IV 04/08/17 22:45 10 mcg/min .Q5H21M ODETTE 38.1 mls/hr Protocol Titration 12.5 MCG/MIN Dobutamine HCl/Dextrose 500 mg in 250 mls @ 10.41 mls/hr 04/08/17 07:00 Dobutamine/Dextrose 5% 500mg/250ml IV .Q24H ODETTE 5 MCG/KG/MIN Pantoprazole Sodium 40 mg 04/04/17 18:00 04/08/17 06:16 Protonix Inj IVP 40 mg Q12H ODETTE Administration - Patient Studies Lab Studies: Microbiology Studies 04/07/17 04:20 Blood Culture - Preliminary Blood NO GROWTH AFTER 24 HOURS 04/05/17 06:00 Gram Stain - Final Abdomen Wound Culture - Preliminary Pseudomonas Aeruginosa Gram Negative Jeremi#2 Gram Positive Cocci Lab Studies 04/08/17 04/08/17 04/07/17 Range/Units 05:07 05:06 14:45 Neutrophils % (Manual) (42-75) % Band Neutrophils % (0-2) % Lymphocytes % (Manual) (20-50) % Monocytes % (Manual) (0-10) % Toxic Granulation Platelet Estimate (NORMAL) Hypochromasia (manual) Anisocytosis (manual) Target Cells Tear Drop Cells pCO2 28 L (35-45) mm/Hg pO2 113 H 27 L (30-55) mm/Hg HCO3 22.9 (21-28) mmol/L ABG pH 7.47 H (7.35-7.45) ABG Total CO2 21.3 L (22-28) mmol/L ABG O2 Saturation 99.3 H (95-98) % ABG O2 Content 11.6 L (15-23) ML/dL ABG Base Excess -2.7 L (-2.0-3.0) mmol/L ABG Hemoglobin 8.3 L (11.7-17.4) g/dL ABG Carboxyhemoglobin 0.6 (0.5-1.5) % POC ABG HHb (Measured) 0.7 (0.0-5.0) % ABG Methemoglobin 1.2 (0.0-3.0) % ABG O2 Capacity 11.7 L (16-24) mL/dL Domingo Test Yes VBG pH 7.38 (7.32-7.43) VBG pCO2 36 L (40-60) mmHg VBG HCO3 21.0 mmol/L VBG Total CO2 22.4 (22-28) mmol/L VBG O2 Sat (Calc) 69.4 H (40-65) % VBG Base Excess -3.3 L (0.0-2.0) mmol/L VBG Potassium 3.3 L (3.6-5.2) mmol/L A-a O2 Difference 137.0 mm/Hg Hgb O2 Saturation 97.5 (95.0-98.0) % Sodium 131.0 L (132-148) mmol/L Chloride 97.0 L (98-107) mmol/L Glucose 141 H (65-105) mg/dL Lactate 6.9 H* (0.7-2.1) mmol/L Vent Mode Prvc ac Mechanical Rate 14 FiO2 40.0 40.0 % Tidal Volume 450 PEEP 5 5 Crit Value Called To Suhas lucio Crit Value Called By 292 Crit Value Read Back Y Blood Gas Notified Time 509 Venous Blood Potassium 3.3 L (3.6-5.2) mmol/L Gentamicin Trough 1.2 H (0.0-0.9) ug/mL 04/07/17 Range/Units 04:20 Neutrophils % (Manual) 90 H (42-75) % Band Neutrophils % 2 (0-2) % Lymphocytes % (Manual) 3 L (20-50) % Monocytes % (Manual) 5 (0-10) % Toxic Granulation Present Platelet Estimate Decreased L (NORMAL) Hypochromasia (manual) Moderate Anisocytosis (manual) Slight Target Cells Slight Tear Drop Cells Slight pCO2 (35-45) mm/Hg pO2 (30-55) mm/Hg HCO3 (21-28) mmol/L ABG pH (7.35-7.45) ABG Total CO2 (22-28) mmol/L ABG O2 Saturation (95-98) % ABG O2 Content (15-23) ML/dL ABG Base Excess (-2.0-3.0) mmol/L ABG Hemoglobin (11.7-17.4) g/dL ABG Carboxyhemoglobin (0.5-1.5) % POC ABG HHb (Measured) (0.0-5.0) % ABG Methemoglobin (0.0-3.0) % ABG O2 Capacity (16-24) mL/dL Domingo Test VBG pH (7.32-7.43) VBG pCO2 (40-60) mmHg VBG HCO3 mmol/L VBG Total CO2 (22-28) mmol/L VBG O2 Sat (Calc) (40-65) % VBG Base Excess (0.0-2.0) mmol/L VBG Potassium (3.6-5.2) mmol/L A-a O2 Difference mm/Hg Hgb O2 Saturation (95.0-98.0) % Sodium (132-148) mmol/L Chloride (98-107) mmol/L Glucose (65-105) mg/dL Lactate (0.7-2.1) mmol/L Vent Mode Mechanical Rate FiO2 % Tidal Volume PEEP Crit Value Called To Crit Value Called By Crit Value Read Back Blood Gas Notified Time Venous Blood Potassium (3.6-5.2) mmol/L Gentamicin Trough (0.0-0.9) ug/mL Laboratory Results - last 24 hr 04/07/17 04/07/17 04/08/17 04:20 14:45 05:06 Neutrophils % (Manual) 90 H Band Neutrophils % 2 Lymphocytes % (Manual) 3 L Monocytes % (Manual) 5 Toxic Granulation Present Platelet Estimate Decreased L Hypochromasia (manual) Moderate Anisocytosis (manual) Slight Target Cells Slight Tear Drop Cells Slight pCO2 pO2 27 L HCO3 ABG pH ABG Total CO2 ABG O2 Saturation ABG O2 Content ABG Base Excess ABG Hemoglobin ABG Carboxyhemoglobin POC ABG HHb (Measured) ABG Methemoglobin ABG O2 Capacity Domingo Test VBG pH 7.38 VBG pCO2 36 L VBG HCO3 21.0 VBG Total CO2 22.4 VBG O2 Sat (Calc) 69.4 H VBG Base Excess -3.3 L VBG Potassium 3.3 L A-a O2 Difference Hgb O2 Saturation Sodium 131.0 L Chloride 97.0 L Glucose 141 H Lactate 6.9 H* Vent Mode Mechanical Rate FiO2 40.0 Tidal Volume PEEP 5 Crit Value Called To Suhas lucio Crit Value Called By 292 Crit Value Read Back Y Blood Gas Notified Time 509 Venous Blood Potassium 3.3 L Gentamicin Trough 1.2 H 04/08/17 05:07 Neutrophils % (Manual) Band Neutrophils % Lymphocytes % (Manual) Monocytes % (Manual) Toxic Granulation Platelet Estimate Hypochromasia (manual) Anisocytosis (manual) Target Cells Tear Drop Cells pCO2 28 L pO2 113 H HCO3 22.9 ABG pH 7.47 H ABG Total CO2 21.3 L ABG O2 Saturation 99.3 H ABG O2 Content 11.6 L ABG Base Excess -2.7 L ABG Hemoglobin 8.3 L ABG Carboxyhemoglobin 0.6 POC ABG HHb (Measured) 0.7 ABG Methemoglobin 1.2 ABG O2 Capacity 11.7 L Domingo Test Yes VBG pH VBG pCO2 VBG HCO3 VBG Total CO2 VBG O2 Sat (Calc) VBG Base Excess VBG Potassium A-a O2 Difference 137.0 Hgb O2 Saturation 97.5 Sodium Chloride Glucose Lactate Vent Mode Prvc ac Mechanical Rate 14 FiO2 40.0 Tidal Volume 450 PEEP 5 Crit Value Called To Crit Value Called By Crit Value Read Back Blood Gas Notified Time Venous Blood Potassium Gentamicin Trough Fingerstick Blood Sugar Results: 221 Review of Systems - Review of Systems Systems not reviewed;Unavailable: Intubated Critical Care Progress Note - Ventilator Checklist Head of Bed 30 Degrees: Yes Daily Sedation Vacation: Yes Daily Assessment of Readiness to Wean: Yes Daily Spontaneous Breathing Trial: Yes PUD Prophalyxis: Yes DVT Prophylaxis: Yes Oral Care with Chlorhexidine Gluconate {CHG}: Yes - Vent Settings MODE:: ASSIST CONTROL TIDAL VOLUME:: 450 RESP RATE:: 14 FIO2:: 40 PEEP:: 5 - Extremities/Vascular Does the Patient have a Central Venous Catheter?: Yes Does the Patient need a Central Venous Catheter?: Yes Does the Patient have a Overton Catheter?: Yes Does the Patient need a Overton Catheter?: Yes Catheter Insertion Criteria: Need for accurate measurement of output in critically ill patient - Prophylaxis GI Prophylaxis GI: PPI - Prophylaxis DVT Prophylaxis DVT: SCDs
[2017-04-08 07:00] LABS: PLATELET COUNT 14 K/uL (130-400)
[2017-04-08 07:15] LABS: BILIRUBIN,TOTAL 3.4 mg/dl (0.2-1.3); POTASSIUM 3.3 MMOL/L (3.6-5.0); TOTAL PROTEIN 4.8 G/DL (6.3-8.2)
[2017-04-08 07:18] LABS: CALCIUM 5.1 mg/dL (8.4-10.2)
[2017-04-08] MEDS: DOBUTamine 500mg/250ml D5W 500 MG/250 ML BAG IV SCH (07:49)
[2017-04-08] MEDS ORDERED: Calcium Gluconate 4.65 mEq/10 ml Inj IV SCH (09:00)
[2017-04-08 09:02] LABS: NEUTROPHIL 89 % (42-75); TOTAL CELLS COUNTED 100
--- NOTE | 2017-04-08 09:13 | CP.PCM.PN ---
Subjective - Date & Time of Evaluation Date of Evaluation: 04/08/17 Time of Evaluation: 09:13 - Subjective Subjective: Genaral condition unchanged , Objective - Vital Signs/Intake and Output Vital Signs (last 24 hours): Temp Pulse Resp BP Pulse Ox 101.9 F H 89 22 92/64 L 100 04/08/17 08:00 04/08/17 08:00 04/08/17 08:00 04/08/17 08:00 04/08/17 08:00 Intake and Output: 04/08/17 04/08/17 06:59 18:59 Intake Total 2589 Output Total 200 Balance 2389 - Medications Medications: Current Medications Acetaminophen (Tylenol 650 Mg Supp) 650 mg MA Q4 PRN PRN Reason: Temp >101 Last Admin: 04/06/17 16:15 Dose: 650 mg Acetaminophen (Tylenol 650mg/20.3ml Solution Ud) 650 mg PO Q4 PRN PRN Reason: Temperature Last Admin: 04/08/17 04:15 Dose: 650 mg Albuterol/Ipratropium (Duoneb 3 Mg/0.5 Mg (3 Ml) Ud) 3 ml INH RQ4 PRN PRN Reason: Shortness of Breath Last Admin: 04/04/17 19:23 Dose: 3 ml Calcium Gluconate (Calcium Gluconate) 4.6 meq IV Q8 ODETTE Stop: 04/09/17 01:01 Vasopressin 100 units/ Sodium (Chloride) 105 mls @ 1.89 mls/hr IV .Q24H ODETTE; 0.03 UNITS/MIN PRN Reason: Protocol Last Admin: 04/07/17 18:23 Dose: 0.03 units/min, 1.89 mls/hr Phenylephrine HCl 20 mg/ (Sodium Chloride) 252 mls @ 15.12 mls/hr IV .[id number] ODETTE; 20 MCG/MIN PRN Reason: Protocol Last Admin: 04/07/17 18:26 Dose: 20 mcg/min, 15.12 mls/hr Meropenem 500 mg/ Sodium (Chloride) 100 mls @ 100 mls/hr IVPB Q12 ODETTE PRN Reason: Protocol Last Admin: 04/07/17 21:42 Dose: 100 mls/hr Ascorbic Acid 1,500 mg/ Sodium (Chloride) 103 mls @ 103 mls/hr IVPB Q6H ODETTE Stop: 04/10/17 10:29 Last Admin: 04/08/17 03:12 Dose: 103 mls/hr Hydrocortisone Sodium Succinate 50 mg/ Sodium Chloride 100 mls @ 100 mls/hr IV Q6 ODETTE Last Admin: 04/08/17 05:06 Dose: 100 mls/hr Thiamine HCl 200 mg/ Sodium (Chloride) 102 mls @ 204 mls/hr IV Q12H ODETTE Last Admin: 04/08/17 03:56 Dose: 204 mls/hr Gentamicin Sulfate/Sodium Chloride (Gentamicin 60mg/50ml Ns) 60 mg in 50 mls @ 49.261 mls/hr IVPB Q24H ODETTE PRN Reason: Protocol Last Admin: 04/07/17 20:41 Dose: 49.261 mls/hr Norepinephrine Bitartrate 4 mg (/ Dextrose) 254 mls @ 9.52 mls/hr IV .Q24H ODETTE ; 2.5 MCG/MIN PRN Reason: Protocol Last Admin: 04/07/17 11:29 Dose: 2.5 mcg/min, 9.52 mls/hr Norepinephrine Bitartrate 4 mg (/ Dextrose) 254 mls @ 47.62 mls/hr IV .Q5H21M ODETTE; 12.5 MCG/MIN PRN Reason: Protocol Stop: 04/08/17 22:45 Last Admin: 04/08/17 06:53 Dose: 10 mcg/min, 38.1 mls/hr Dobutamine HCl/Dextrose (Dobutamine/Dextrose 5% 500mg/250ml) 500 mg in 250 mls @ 10.41 mls/hr IV .Q24H ODETTE PRN Reason: 5 MCG/KG/MIN Last Admin: 04/08/17 07:49 Dose: 10.41 mls/hr Pantoprazole Sodium (Protonix Inj) 40 mg IVP Q12H ODETTE Last Admin: 04/08/17 06:16 Dose: 40 mg - Labs Labs: 04/08/17 05:30 04/08/17 05:30 PT 36.0 Seconds (9.8-13.1) H D 04/08/17 05:30 INR 3.1 (0.9-1.2) H D 04/08/17 05:30 APTT 47.0 Seconds (25.6-37.1) H 04/08/17 05:30
--- NOTE | 2017-04-08 09:16 | CP.PCM.PN ---
Subjective - Date & Time of Evaluation Date of Evaluation: 04/08/17 Time of Evaluation: 09:14 - Subjective Subjective: General condition unchanged, platelet count still low after receiving 2 units of platelets. She does not have bleeding from any site. Will hold platelets for now and follow. Objective - Vital Signs/Intake and Output Vital Signs (last 24 hours): Temp Pulse Resp BP Pulse Ox 101.9 F H 89 22 92/64 L 100 04/08/17 08:00 04/08/17 08:00 04/08/17 08:00 04/08/17 08:00 04/08/17 08:00 Intake and Output: 04/08/17 04/08/17 06:59 18:59 Intake Total 2589 Output Total 200 Balance 2389 - Medications Medications: Current Medications Acetaminophen (Tylenol 650 Mg Supp) 650 mg MD Q4 PRN PRN Reason: Temp >101 Last Admin: 04/06/17 16:15 Dose: 650 mg Acetaminophen (Tylenol 650mg/20.3ml Solution Ud) 650 mg PO Q4 PRN PRN Reason: Temperature Last Admin: 04/08/17 04:15 Dose: 650 mg Albuterol/Ipratropium (Duoneb 3 Mg/0.5 Mg (3 Ml) Ud) 3 ml INH RQ4 PRN PRN Reason: Shortness of Breath Last Admin: 04/04/17 19:23 Dose: 3 ml Calcium Gluconate (Calcium Gluconate) 4.6 meq IV Q8 ODETTE Stop: 04/09/17 01:01 Vasopressin 100 units/ Sodium (Chloride) 105 mls @ 1.89 mls/hr IV .Q24H ODETTE; 0.03 UNITS/MIN PRN Reason: Protocol Last Admin: 04/07/17 18:23 Dose: 0.03 units/min, 1.89 mls/hr Phenylephrine HCl 20 mg/ (Sodium Chloride) 252 mls @ 15.12 mls/hr IV .[id number] ODETTE; 20 MCG/MIN PRN Reason: Protocol Last Admin: 04/07/17 18:26 Dose: 20 mcg/min, 15.12 mls/hr Meropenem 500 mg/ Sodium (Chloride) 100 mls @ 100 mls/hr IVPB Q12 ODETTE PRN Reason: Protocol Last Admin: 04/07/17 21:42 Dose: 100 mls/hr Ascorbic Acid 1,500 mg/ Sodium (Chloride) 103 mls @ 103 mls/hr IVPB Q6H ODETTE Stop: 04/10/17 10:29 Last Admin: 04/08/17 03:12 Dose: 103 mls/hr Hydrocortisone Sodium Succinate 50 mg/ Sodium Chloride 100 mls @ 100 mls/hr IV Q6 ODETTE Last Admin: 04/08/17 05:06 Dose: 100 mls/hr Thiamine HCl 200 mg/ Sodium (Chloride) 102 mls @ 204 mls/hr IV Q12H ODETTE Last Admin: 04/08/17 03:56 Dose: 204 mls/hr Gentamicin Sulfate/Sodium Chloride (Gentamicin 60mg/50ml Ns) 60 mg in 50 mls @ 49.261 mls/hr IVPB Q24H ODETTE PRN Reason: Protocol Last Admin: 04/07/17 20:41 Dose: 49.261 mls/hr Norepinephrine Bitartrate 4 mg (/ Dextrose) 254 mls @ 9.52 mls/hr IV .Q24H ODETTE ; 2.5 MCG/MIN PRN Reason: Protocol Last Admin: 04/07/17 11:29 Dose: 2.5 mcg/min, 9.52 mls/hr Norepinephrine Bitartrate 4 mg (/ Dextrose) 254 mls @ 47.62 mls/hr IV .Q5H21M ODETTE; 12.5 MCG/MIN PRN Reason: Protocol Stop: 04/08/17 22:45 Last Admin: 04/08/17 06:53 Dose: 10 mcg/min, 38.1 mls/hr Dobutamine HCl/Dextrose (Dobutamine/Dextrose 5% 500mg/250ml) 500 mg in 250 mls @ 10.41 mls/hr IV .Q24H ODETTE PRN Reason: 5 MCG/KG/MIN Last Admin: 04/08/17 07:49 Dose: 10.41 mls/hr Pantoprazole Sodium (Protonix Inj) 40 mg IVP Q12H ODETTE Last Admin: 04/08/17 06:16 Dose: 40 mg - Labs Labs: 04/08/17 05:30 04/08/17 05:30 PT 36.0 Seconds (9.8-13.1) H D 04/08/17 05:30 INR 3.1 (0.9-1.2) H D 04/08/17 05:30 APTT 47.0 Seconds (25.6-37.1) H 04/08/17 05:30
--- NOTE | 2017-04-08 10:10 | CP.PCM.PN ---
Subjective - Date & Time of Evaluation Date of Evaluation: 04/08/17 Time of Evaluation: 10:05 - Subjective Subjective: Dialysis note Patient remained comatose not responding intubated. Family at the bedside. Patient on vasopressors. Urine output noted to poor. The balance over 3000 cc plus. Physical exam Patient comatose Chest there are rales throughout both lung barrientos. Heart no rubs Abdomen noted previous surgery scar. Extremities trace edema. Patient and plan Lab reviewed noted that CO2 start to come down. Serum calcium is low consistent with hypocalcemia. Patient need intravenous calcium gluconate. Kidney function noted but because of the fluid retention we will proceed with hemodialysis now as it is running in progress. Patient receiving vasopressors to maintain blood pressure. I went over the order with the dialysis nurse at the bedside. To give albumin for low blood pressure. Respiratory failure. Remained in septic shock. Prognosis criticality. Objective - Vital Signs/Intake and Output Vital Signs (last 24 hours): Temp Pulse Resp BP Pulse Ox 101.9 F H 85 21 108/71 100 04/08/17 08:00 04/08/17 09:56 04/08/17 09:56 04/08/17 09:56 04/08/17 09:56 Intake and Output: 04/08/17 04/08/17 06:59 18:59 Intake Total 2589 40 Output Total 200 100 Balance 2389 -60 - Medications Medications: Current Medications Acetaminophen (Tylenol 650 Mg Supp) 650 mg [place] Q4 PRN PRN Reason: Temp >101 Last Admin: 04/06/17 16:15 Dose: 650 mg Acetaminophen (Tylenol 650mg/20.3ml Solution Ud) 650 mg PO Q4 PRN PRN Reason: Temperature Last Admin: 04/08/17 04:15 Dose: 650 mg Albuterol/Ipratropium (Duoneb 3 Mg/0.5 Mg (3 Ml) Ud) 3 ml INH RQ4 PRN PRN Reason: Shortness of Breath Last Admin: 04/04/17 19:23 Dose: 3 ml Vasopressin 100 units/ Sodium (Chloride) 105 mls @ 1.89 mls/hr IV .Q24H ODETTE; 0.03 UNITS/MIN PRN Reason: Protocol Last Admin: 04/07/17 18:23 Dose: 0.03 units/min, 1.89 mls/hr Phenylephrine HCl 20 mg/ (Sodium Chloride) 252 mls @ 15.12 mls/hr IV .[id number] ODETTE; 20 MCG/MIN PRN Reason: Protocol Last Admin: 04/07/17 18:26 Dose: 20 mcg/min, 15.12 mls/hr Meropenem 500 mg/ Sodium (Chloride) 100 mls @ 100 mls/hr IVPB Q12 ODETTE PRN Reason: Protocol Last Admin: 04/07/17 21:42 Dose: 100 mls/hr Ascorbic Acid 1,500 mg/ Sodium (Chloride) 103 mls @ 103 mls/hr IVPB Q6H ODETTE Stop: 04/10/17 10:29 Last Admin: 04/08/17 03:12 Dose: 103 mls/hr Hydrocortisone Sodium Succinate 50 mg/ Sodium Chloride 100 mls @ 100 mls/hr IV Q6 ODETTE Last Admin: 04/08/17 05:06 Dose: 100 mls/hr Thiamine HCl 200 mg/ Sodium (Chloride) 102 mls @ 204 mls/hr IV Q12H ODETTE Last Admin: 04/08/17 03:56 Dose: 204 mls/hr Gentamicin Sulfate/Sodium Chloride (Gentamicin 60mg/50ml Ns) 60 mg in 50 mls @ 49.261 mls/hr IVPB Q24H ODETTE PRN Reason: Protocol Last Admin: 04/07/17 20:41 Dose: 49.261 mls/hr Norepinephrine Bitartrate 4 mg (/ Dextrose) 254 mls @ 9.52 mls/hr IV .Q24H ODETTE ; 2.5 MCG/MIN PRN Reason: Protocol Last Admin: 04/07/17 11:29 Dose: 2.5 mcg/min, 9.52 mls/hr Norepinephrine Bitartrate 4 mg (/ Dextrose) 254 mls @ 47.62 mls/hr IV .Q5H21M ODETTE; 12.5 MCG/MIN PRN Reason: Protocol Stop: 04/08/17 22:45 Last Admin: 04/08/17 06:53 Dose: 10 mcg/min, 38.1 mls/hr Dobutamine HCl/Dextrose (Dobutamine/Dextrose 5% 500mg/250ml) 500 mg in 250 mls @ 10.41 mls/hr IV .Q24H ODETTE PRN Reason: 5 MCG/KG/MIN Last Admin: 04/08/17 07:49 Dose: 10.41 mls/hr Calcium Gluconate 4.6 meq/ (Dextrose) 59.8924 mls @ 119.785 mls/hr IV Q8 ODETTE Stop: 04/09/17 01:29 Pantoprazole Sodium (Protonix Inj) 40 mg IVP Q12H ODETTE Last Admin: 04/08/17 06:16 Dose: 40 mg - Labs Labs: 04/08/17 05:30 04/08/17 05:30 PT 36.0 Seconds (9.8-13.1) H D 04/08/17 05:30 INR 3.1 (0.9-1.2) H D 04/08/17 05:30 APTT 47.0 Seconds (25.6-37.1) H 04/08/17 05:30 Assessment and Plan (1) Acute renal injury due to circulatory failure Status: Acute (2) Altered mental status Status: Acute (3) GI bleed Status: Acute (4) Hypotension Status: Deleted
--- NOTE | 2017-04-08 10:19 | PQF GENQUE ---
Dr. Cornejo, Night Clerk Auditor documented the following information with no mention of this diagnosis in your documentation. Please indicate in your next progress note your agreement with loss control consultant or provide clarification that this diagnosis is not a current condition. (1) Diagnosis: Sepsis Documented by: Tablet Machine Operator,, [facility] Location:progress notes (2) If in agreement etiology if known or Multifactorial etiology etc. OR: Disagree OR: Other explanation of Clinical Findings 04/05 Critical Care note; Now has severe thrombocytopenia, probably secondary to sepsis.UTI with sepsis and possible HCAP 04/05 Renal note: Acute kidney injury related to multifactorial including sepsis and circulatory failure 04/06 Hematology progress note: Thrombocytopenia secondary to sepsis 04/06 Tablet Machine Operator: Urine output noted to be low Metabolic acidosis persisted given the possibility of intra-abdominal sepsis or involvement with persistent lactic acidosis with persistent sodium bicarbonate IV drip 04/07 Surgery: w/ DIC and sepsis 07/01 ESBL Kelebsiella bacteremia 04/04 blood culture and urine castillo: Klebsiella Pneumoniae Ssp Pneu 04/05 Wound culture: Pseudomonas Aeruginosa Klebsiella Pneumoniae Ssp Pneu Enterococcus Faecalis This form is a permanent part of the medical record Clarification of your documentation is requested to better reflect the severity of illness and intensity of treatment of your patient. Indicators present [] Specify: [] [] Specify: [] [] Specify: [] [] Specify: [] Location in the medical record that reflects the above clinical findings: [] Treatment Provided: [] PHYSICIAN'S RESPONSE Based on your medical judgment of the clinical indicators outlined above please clarify the following: [] Practitioner response [] If unable to determine, please check the box, sign and date. Present On Admission (POA) Indicator: [] Present at the time of admission [] Not present at the time of admission [] Clinically Undetermined In responding to this query, please exercise your independent professional judgment. The fact that a question is asked does not imply that any particular answer is desired or expected. Thank you for your clarification on this documentation. If you have any questions please call. * Thank you, Radha Berumen RN ext. #[phone] MTDD
[2017-04-08 10:34] LABS: VENOUS BLOOD GAS MODE PRVC/AC; VENOUS BLOOD GAS PCO2 34 mmHg (40-60); VENOUS BLOOD PH 7.42 (7.32-7.43)
--- NOTE | 2017-04-08 11:18 | RAD ---
PROCEDURE: CHEST RADIOGRAPH, 1 VIEW HISTORY: pt intubated COMPARISON: Comparison chest 04/07/2017 FINDINGS: In situ ETT, tip of which lies approximately 4.18 cm above sloane. In situ NGT, the tip of which has not been included on this film though distal aspect does lie well below EG junction. Right IJ dialysis catheter with tip in the SVC/RA junction. LUNGS: Low lung volumes with crowded bronchovascular markings and bibasilar atelectasis and/or infiltrates left greater than right PLEURA: No pneumothorax or pleural fluid seen. CARDIOVASCULAR: Normal. OSSEOUS STRUCTURES: No significant abnormalities. VISUALIZED UPPER ABDOMEN: Re- demonstrated are in situ IVC filter and metallic clips right upper quadrant, consistent with prior cholecystectomy OTHER FINDINGS: None. IMPRESSION: Support lines and tubes as above. Low lung volumes with crowded bronchovascular markings and bibasilar atelectasis and/or infiltrates left greater than right
[2017-04-08] MEDS: CALCIUM GLUCONATE IV SCH ×2 (13:23→18:02)
[2017-04-08] MEDS: WATER IV SCH ×2 (13:23→18:02)
[2017-04-08] MEDS: DEXTROSE 5% IV SCH ×2 (13:23→18:02)
[2017-04-08] MEDS: Meropenem 500 MG in Sodium Chloride 0.9% 100 ML IVPB SCH ×2 (14:16→20:27)
[2017-04-08 15:56] LABS: VENOUS BLOOD GAS BASE EXCESS 0.5 mmol/L (0.0-2.0); VENOUS BLOOD GAS MODE PRVC/AC; VENOUS BLOOD GAS PCO2 37 mmHg (40-60); VENOUS BLOOD PH 7.43 (7.32-7.43)
--- NOTE | 2017-04-08 16:55 | CP.PCM.PN ---
Subjective - Date & Time of Evaluation Date of Evaluation: 04/08/17 Time of Evaluation: 16:47 - Subjective Subjective: I D NOTE STILL HAVING FEBRILE PERIODS WBC:14,PLATELETS:14 BLOOD CULTURE NOW SHOWING ENTEROCOCCUS GIVEN SINGLE DOSE OF VANCOMYCIN RANDOM LEVEL OERERED FOR AM PATIENT IS STILL UNRESPONSIVE CONTINUE MEROPENEM,HAVE SWITCHED GENTAMICIN TO TOBRAMYCIN Objective - Vital Signs/Intake and Output Vital Signs (last 24 hours): Temp Pulse Resp BP Pulse Ox 96.3 F L 77 18 107/67 100 04/08/17 16:00 04/08/17 16:00 04/08/17 15:30 04/08/17 16:00 04/08/17 16:00 Intake and Output: 04/08/17 04/08/17 06:59 18:59 Intake Total 2589 564.87 Output Total 200 100 Balance 2389 464.87 - Medications Medications: Current Medications Acetaminophen (Tylenol 650 Mg Supp) 650 mg [place] Q4 PRN PRN Reason: Temp >101 Last Admin: 04/06/17 16:15 Dose: 650 mg Acetaminophen (Tylenol 650mg/20.3ml Solution Ud) 650 mg PO Q4 PRN PRN Reason: Temperature Last Admin: 04/08/17 04:15 Dose: 650 mg Albuterol/Ipratropium (Duoneb 3 Mg/0.5 Mg (3 Ml) Ud) 3 ml INH RQ4 PRN PRN Reason: Shortness of Breath Last Admin: 04/04/17 19:23 Dose: 3 ml Ascorbic Acid (Vitamin C 500 Mg Tab) 1,500 mg PO Q6H ODETTE Stop: 04/12/17 22:01 Vasopressin 100 units/ Sodium (Chloride) 105 mls @ 1.89 mls/hr IV .Q24H ODETTE; 0.03 UNITS/MIN PRN Reason: Protocol Last Admin: 04/07/17 18:23 Dose: 0.03 units/min, 1.89 mls/hr Phenylephrine HCl 20 mg/ (Sodium Chloride) 252 mls @ 15.12 mls/hr IV .[id number] ODETTE; 20 MCG/MIN PRN Reason: Protocol Last Titration: 04/08/17 13:00 Dose: 0 mcg/min, 0 mls/hr Meropenem 500 mg/ Sodium (Chloride) 100 mls @ 100 mls/hr IVPB Q12 ODETTE PRN Reason: Protocol Last Admin: 04/08/17 14:16 Dose: 100 mls/hr Hydrocortisone Sodium Succinate 50 mg/ Sodium Chloride 100 mls @ 100 mls/hr IV Q6 ODETTE Last Admin: 04/08/17 13:18 Dose: 100 mls/hr Thiamine HCl 200 mg/ Sodium (Chloride) 102 mls @ 204 mls/hr IV Q12H ODETTE Last Admin: 04/08/17 03:56 Dose: 204 mls/hr Gentamicin Sulfate/Sodium Chloride (Gentamicin 60mg/50ml Ns) 60 mg in 50 mls @ 49.261 mls/hr IVPB Q24H ODETTE PRN Reason: Protocol Last Admin: 04/07/17 20:41 Dose: 49.261 mls/hr Norepinephrine Bitartrate 4 mg (/ Dextrose) 254 mls @ 9.52 mls/hr IV .Q24H ODETTE ; 2.5 MCG/MIN PRN Reason: Protocol Last Admin: 04/07/17 11:29 Dose: 2.5 mcg/min, 9.52 mls/hr Norepinephrine Bitartrate 4 mg (/ Dextrose) 254 mls @ 47.62 mls/hr IV .Q5H21M ODETTE; 12.5 MCG/MIN PRN Reason: Protocol Stop: 04/08/17 22:45 Last Admin: 04/08/17 13:15 Dose: 7.5 mcg/min, 28.57 mls/hr Dobutamine HCl/Dextrose (Dobutamine/Dextrose 5% 500mg/250ml) 500 mg in 250 mls @ 10.41 mls/hr IV .Q24H ODETTE PRN Reason: 5 MCG/KG/MIN Last Admin: 04/08/17 07:49 Dose: 10.41 mls/hr Calcium Gluconate 4.6 meq/ (Dextrose) 59.8924 mls @ 119.785 mls/hr IV Q8 ODETTE Stop: 04/09/17 01:29 Last Admin: 04/08/17 13:23 Dose: 119.785 mls/hr Pantoprazole Sodium (Protonix Inj) 40 mg IVP Q12H ODETTE Last Admin: 04/08/17 06:16 Dose: 40 mg - Labs Labs: 04/08/17 05:30 04/08/17 05:30 PT 36.0 Seconds (9.8-13.1) H D 04/08/17 05:30 INR 3.1 (0.9-1.2) H D 04/08/17 05:30 APTT 47.0 Seconds (25.6-37.1) H 04/08/17 05:30
[2017-04-08] MEDS ORDERED: DEXTROSE 5% IV SCH (17:00)
[2017-04-08] MEDS ORDERED: CALCIUM GLUCONATE IV SCH (17:00)
[2017-04-08] MEDS ORDERED: WATER IV SCH (17:00)
--- NOTE | 2017-04-08 18:09 | CP.PCM.PN ---
Subjective - Date & Time of Evaluation Date of Evaluation: 04/08/17 Time of Evaluation: 12:00 - Subjective Subjective: Unresponsive, on ventilator , had dialysis Objective - Vital Signs/Intake and Output Vital Signs (last 24 hours): Temp Pulse Resp BP Pulse Ox 96.3 F L 86 19 108/64 100 04/08/17 16:00 04/08/17 17:00 04/08/17 17:00 04/08/17 17:00 04/08/17 17:00 Intake and Output: 04/08/17 04/08/17 06:59 18:59 Intake Total 2589 564.87 Output Total 200 100 Balance 2389 464.87 - Medications Medications: Current Medications Acetaminophen (Tylenol 650 Mg Supp) 650 mg [place] Q4 PRN PRN Reason: Temp >101 Last Admin: 04/06/17 16:15 Dose: 650 mg Acetaminophen (Tylenol 650mg/20.3ml Solution Ud) 650 mg PO Q4 PRN PRN Reason: Temperature Last Admin: 04/08/17 04:15 Dose: 650 mg Albuterol/Ipratropium (Duoneb 3 Mg/0.5 Mg (3 Ml) Ud) 3 ml INH RQ4 PRN PRN Reason: Shortness of Breath Last Admin: 04/04/17 19:23 Dose: 3 ml Ascorbic Acid (Vitamin C 500 Mg Tab) 1,500 mg PO Q6H ODETTE Stop: 04/12/17 22:01 Vasopressin 100 units/ Sodium (Chloride) 105 mls @ 1.89 mls/hr IV .Q24H ODETTE; 0.03 UNITS/MIN PRN Reason: Protocol Last Admin: 04/07/17 18:23 Dose: 0.03 units/min, 1.89 mls/hr Phenylephrine HCl 20 mg/ (Sodium Chloride) 252 mls @ 15.12 mls/hr IV .[id number] ODETTE; 20 MCG/MIN PRN Reason: Protocol Last Titration: 04/08/17 13:00 Dose: 0 mcg/min, 0 mls/hr Meropenem 500 mg/ Sodium (Chloride) 100 mls @ 100 mls/hr IVPB Q12 ODETTE PRN Reason: Protocol Last Admin: 04/08/17 14:16 Dose: 100 mls/hr Hydrocortisone Sodium Succinate 50 mg/ Sodium Chloride 100 mls @ 100 mls/hr IV Q6 ODETTE Last Admin: 04/08/17 18:03 Dose: 100 mls/hr Thiamine HCl 200 mg/ Sodium (Chloride) 102 mls @ 204 mls/hr IV Q12H ODETTE Last Admin: 04/08/17 16:59 Dose: 204 mls/hr Norepinephrine Bitartrate 4 mg (/ Dextrose) 254 mls @ 9.52 mls/hr IV .Q24H ODETTE ; 2.5 MCG/MIN PRN Reason: Protocol Last Admin: 04/07/17 11:29 Dose: 2.5 mcg/min, 9.52 mls/hr Norepinephrine Bitartrate 4 mg (/ Dextrose) 254 mls @ 47.62 mls/hr IV .Q5H21M ODETTE; 12.5 MCG/MIN PRN Reason: Protocol Stop: 04/08/17 22:45 Last Titration: 04/08/17 17:15 Dose: 5 mcg/min, 19.05 mls/hr Dobutamine HCl/Dextrose (Dobutamine/Dextrose 5% 500mg/250ml) 500 mg in 250 mls @ 10.41 mls/hr IV .Q24H ODETTE PRN Reason: 5 MCG/KG/MIN Last Admin: 04/08/17 07:49 Dose: 10.41 mls/hr Calcium Gluconate 4.6 meq/ (Dextrose) 59.8924 mls @ 119.785 mls/hr IV Q8 ODETTE Stop: 04/09/17 01:29 Last Admin: 04/08/17 18:02 Dose: 119.785 mls/hr Tobramycin Sulfate 80 mg/ (Sodium Chloride) 102 mls @ 100 mls/hr IV Q24H ODETTE Pantoprazole Sodium (Protonix Inj) 40 mg IVP Q12H ODETTE Last Admin: 04/08/17 18:02 Dose: 40 mg - Labs Labs: 04/08/17 05:30 04/08/17 05:30 PT 36.0 Seconds (9.8-13.1) H D 04/08/17 05:30 INR 3.1 (0.9-1.2) H D 04/08/17 05:30 APTT 47.0 Seconds (25.6-37.1) H 04/08/17 05:30 - Constitutional Appears: Chronically Ill - Eye Exam Additional comments: sluggish reaction to light - ENT Exam Additional comments: intubated - Neck Exam Neck Exam: Normal Inspection - Respiratory Exam Respiratory Exam: Decreased Breath Sounds (at bases), Rhonchi - Cardiovascular Exam Cardiovascular Exam: REGULAR RHYTHM - GI/Abdominal Exam GI & Abdominal Exam: Soft, Normal Bowel Sounds Additional comments: open surgical wound lower midline , sloughy base - Extremities Exam Extremities Exam: Pedal Edema Additional comments: L heel DTI, R lateral ankle DTI - Back Exam Additional comments: MASD Sacral , buttock. - Neurological Exam Additional comments: Unresponsive , comatose - Skin Skin Exam: Warm Assessment and Plan (1) Acute respiratory failure Status: Acute (2) Shock Assessment & Plan: Septic Shock , Blood C-S Klebsiella , Staph and Urine C-S Klebsiella , abdominal wound Pseudomona , Klebsiella , Enterococcus Status: Deleted (3) Pneumonia Status: Acute (4) Acute renal failure (ARF) Status: Acute (5) Anemia Status: Acute (6) Hematuria, gross Status: Deleted (7) Thrombocytopenia Status: Resolved (8) History of pulmonary embolus (PE) Status: Acute - Assessment and Plan (Free Text) Plan: Continue ventilatory support, Patient on 4 Vasopressors drugs , Dialysis , Antibiotics, f/u by Renal and ID , Prognosis very poor discussed with Patient' s family ICU Time: 39 min.
[2017-04-09] MEDS: CALCIUM GLUCONATE IV SCH (01:15)
[2017-04-09] MEDS: DEXTROSE 5% IV SCH (01:15)
[2017-04-09] MEDS: WATER IV SCH (01:15)
[2017-04-09] MEDS: DOBUTamine 500mg/250ml D5W 500 MG/250 ML BAG IV SCH (03:02)
[2017-04-09] MEDS: Thiamine 200 MG in Sodium Chloride 0.9% 100 ML IV SCH ×2 (04:11→16:04)
[2017-04-09] MEDS: Hydrocortisone- 50 MG in Sodium Chloride 0.9% 100 ML IV SCH ×4 (04:17→21:54)
[2017-04-09 05:29] LABS: ABG ALLEN TEST YES; ABG MECHANICAL RATE 14; ARTERIAL BLOOD GAS HCO3 23.3 mmol/L (21-28); ARTERIAL BLOOD GAS MODE PRVC/AC; ARTERIAL BLOOD GAS PO2 28 mm/Hg (80-100); ATERIAL BLOOD GAS PEEP 5; VENOUS BLOOD GAS BASE EXCESS -0.5 mmol/L (0.0-2.0); VENOUS BLOOD GAS MODE PRVC/AC; VENOUS BLOOD GAS PCO2 39 mmHg (40-60)
[2017-04-09 05:42] LABS: ABG ALLEN TEST YES; ABG MECHANICAL RATE 14; ARTERIAL BLOOD GAS HCO3 24.9 mmol/L (21-28); ARTERIAL BLOOD GAS MODE PRVC/AC; ARTERIAL BLOOD GAS PH 7.44 (7.35-7.45); ARTERIAL BLOOD GAS PO2 64 mm/Hg (80-100); ATERIAL BLOOD GAS PEEP 5
[2017-04-09 05:48] LABS: BASO % 0.1 % (0.0-2.0); EOS % 0.1 % (0.0-4.0); HEMATOCRIT 23.7 % (34.0-47.0); LYMPH # 0.5 K/uL (1.0-4.3); LYMPH % 7.4 % (20.0-40.0); MEAN CELL VOLUME 81.1 fl (81.0-99.0); MEAN CORPUSCULAR HEMOGLOBIN 27.1 pg (27.0-31.0); MEAN CORPUSCULAR HGB CONC 33.4 g/dL (33.0-37.0); MEAN PLATELET VOLUME 11.8 fl (7.2-11.7); MONO # 0.1 K/uL (0.0-0.8); MONO % 0.9 % (0.0-10.0); NEUT # 5.8 K/uL (1.8-7.0); NEUT % 91.5 % (50.0-75.0); RED CELL DISTRIBUTION WIDTH 17.1 % (11.5-14.5); WHITE BLOOD COUNT 6.3 K/uL (4.8-10.8)
[2017-04-09 05:53] LABS: PLATELET COUNT 10 K/uL (130-400)
[2017-04-09 05:55] LABS: POTASSIUM 2.9 MMOL/L (3.6-5.0)
[2017-04-09 05:59] LABS: CALCIUM 5.9 mg/dL (8.4-10.2)
[2017-04-09 06:37] LABS: METAMYELOCYTE 2 % (0-0); NEUTROPHIL 84 % (42-75); TOTAL CELLS COUNTED 100
[2017-04-09 06:44] LABS: LARGE PLATELETS PRESENT
[2017-04-09] MEDS: Meropenem 500 MG in Sodium Chloride 0.9% 100 ML IVPB SCH ×2 (09:12→19:59)
[2017-04-09] MEDS ORDERED: Calcium Chloride 1000 mg/10 ml Syringe IV ONE (11:23)
--- NOTE | 2017-04-09 11:36 | RAD ---
PROCEDURE: CHEST RADIOGRAPH, 1 VIEW HISTORY: pt intubated COMPARISON: Comparison chest 04/08/2017. FINDINGS: In situ endotracheal tube, the tip of which lies approximately 4.2 cm above sloane. NGT is present, tip of which lies left upper quadrant of the abdomen. No change right IJ dialysis catheter with tip in the SVC/RA junction. LUNGS: Poor inspiration with low lung volumes, crowded bronchovascular markings and mild bibasilar atelectasis left greater than right ; left-sided also has progressed and the possibility of developing infiltrate in the left lung base must be considered. Central pulmonary vasculature is slightly increased as well ; rule out mild chronic compensated pulmonary edema. PLEURA: No pneumothorax or pleural fluid seen. CARDIOVASCULAR: Heart size unchanged OSSEOUS STRUCTURES: No significant abnormalities. VISUALIZED UPPER ABDOMEN: Normal. OTHER FINDINGS: None. IMPRESSION: Support lines and tubes as above. Poor inspiration with low lung volumes, crowded bronchovascular markings and mild bibasilar atelectasis left greater than right ; left-sided also has progressed and the possibility of developing infiltrate in the left lung base must be considered. Central pulmonary vasculature is slightly increased as well ; rule out mild chronic compensated pulmonary edema.
[2017-04-09] MEDS: Potassium CL 10mEq/100ml 100 ML IVPB SCH ×4 (12:00→16:07)
--- NOTE | 2017-04-09 15:21 | CP.PCM.PN ---
Subjective - Date & Time of Evaluation Date of Evaluation: 04/09/17 Time of Evaluation: 15:22 - Subjective Subjective: I D NOTE CLINICALLY CONTINUES TO DO POORLY HAVE ADDED VANCOMYCIN DISCUSSED c [employer] Objective - Vital Signs/Intake and Output Vital Signs (last 24 hours): Temp Pulse Resp BP Pulse Ox 100.0 F H 79 16 107/66 97 04/09/17 07:46 04/09/17 07:46 04/09/17 07:46 04/09/17 07:46 04/09/17 07:46 Intake and Output: 04/09/17 04/09/17 06:59 18:59 Intake Total 1452 254 Output Total 60 Balance 1392 254 - Medications Medications: Current Medications Acetaminophen (Tylenol 650 Mg Supp) 650 mg HI Q4 PRN PRN Reason: Temp >101 Last Admin: 04/06/17 16:15 Dose: 650 mg Acetaminophen (Tylenol 650mg/20.3ml Solution Ud) 650 mg PO Q4 PRN PRN Reason: Temperature Last Admin: 04/08/17 04:15 Dose: 650 mg Albuterol/Ipratropium (Duoneb 3 Mg/0.5 Mg (3 Ml) Ud) 3 ml INH RQ4 PRN PRN Reason: Shortness of Breath Last Admin: 04/04/17 19:23 Dose: 3 ml Ascorbic Acid (Vitamin C 500 Mg Tab) 1,500 mg PO Q6H ODETTE Stop: 04/12/17 22:01 Last Admin: 04/09/17 09:09 Dose: 1,500 mg Vasopressin 100 units/ Sodium (Chloride) 105 mls @ 1.89 mls/hr IV .Q24H ODETTE; 0.03 UNITS/MIN PRN Reason: Protocol Last Admin: 04/07/17 18:23 Dose: 0.03 units/min, 1.89 mls/hr Phenylephrine HCl 20 mg/ (Sodium Chloride) 252 mls @ 15.12 mls/hr IV .[id number] ODETTE; 20 MCG/MIN PRN Reason: Protocol Last Titration: 04/08/17 13:00 Dose: 0 mcg/min, 0 mls/hr Meropenem 500 mg/ Sodium (Chloride) 100 mls @ 100 mls/hr IVPB Q12 ODETTE PRN Reason: Protocol Last Admin: 04/09/17 09:12 Dose: 100 mls/hr Hydrocortisone Sodium Succinate 50 mg/ Sodium Chloride 100 mls @ 100 mls/hr IV Q6 ODETTE Last Admin: 04/09/17 09:11 Dose: 100 mls/hr Thiamine HCl 200 mg/ Sodium (Chloride) 102 mls @ 204 mls/hr IV Q12H ODETTE Last Admin: 04/09/17 04:11 Dose: 204 mls/hr Dobutamine HCl/Dextrose (Dobutamine/Dextrose 5% 500mg/250ml) 500 mg in 250 mls @ 10.41 mls/hr IV .Q24H ODETTE PRN Reason: 5 MCG/KG/MIN Last Admin: 04/09/17 03:02 Dose: 10.41 mls/hr Tobramycin Sulfate 80 mg/ (Sodium Chloride) 102 mls @ 100 mls/hr IV Q24H ODETTE Last Admin: 04/08/17 19:17 Dose: 100 mls/hr Potassium Chloride (Potassium Chloride 10 Meq/100 Ml) 100 mls @ 100 mls/hr IVPB Q1 ODETTE Stop: 04/09/17 15:59 Norepinephrine Bitartrate 4 mg (/ Dextrose) 254 mls @ 9.52 mls/hr IV .Q24H ODETTE ; 2.5 MCG/MIN PRN Reason: Protocol Last Admin: 04/09/17 12:08 Dose: 2.5 mcg/min, 9.52 mls/hr Vancomycin HCl 500 mg/ Sodium (Chloride) 100 mls @ 100 mls/hr IVPB Q24H ODETTE PRN Reason: Protocol Pantoprazole Sodium (Protonix Inj) 40 mg IVP Q12H ODETTE Last Admin: 04/09/17 07:20 Dose: 40 mg - Labs Labs: 04/09/17 05:30 04/09/17 05:30 PT 36.0 Seconds (9.8-13.1) H D 04/08/17 05:30 INR 3.1 (0.9-1.2) H D 04/08/17 05:30 APTT 47.0 Seconds (25.6-37.1) H 04/08/17 05:30
--- NOTE | 2017-04-09 19:21 | CP.PCM.PN ---
Subjective - Date & Time of Evaluation Date of Evaluation: 04/09/17 Time of Evaluation: 16:10 - Subjective Subjective: F/U Respiratory failure. Pt comatose, unresponsive. Objective - Vital Signs/Intake and Output Vital Signs (last 24 hours): Temp Pulse Resp BP Pulse Ox 99.1 F 79 16 103/60 100 04/09/17 16:00 04/09/17 17:00 04/09/17 17:00 04/09/17 17:00 04/09/17 17:00 Intake and Output: 04/09/17 04/10/17 18:59 06:59 Intake Total 254 Output Total 50 Balance 204 - Medications Medications: Current Medications Acetaminophen (Tylenol 650 Mg Supp) 650 mg IN Q4 PRN PRN Reason: Temp >101 Last Admin: 04/06/17 16:15 Dose: 650 mg Acetaminophen (Tylenol 650mg/20.3ml Solution Ud) 650 mg PO Q4 PRN PRN Reason: Temperature Last Admin: 04/08/17 04:15 Dose: 650 mg Albuterol/Ipratropium (Duoneb 3 Mg/0.5 Mg (3 Ml) Ud) 3 ml INH RQ4 PRN PRN Reason: Shortness of Breath Last Admin: 04/04/17 19:23 Dose: 3 ml Ascorbic Acid (Vitamin C 500 Mg Tab) 1,500 mg PO Q6H ODETTE Stop: 04/12/17 22:01 Last Admin: 04/09/17 16:04 Dose: 1,500 mg Vasopressin 100 units/ Sodium (Chloride) 105 mls @ 1.89 mls/hr IV .Q24H ODETTE; 0.03 UNITS/MIN PRN Reason: Protocol Last Admin: 04/07/17 18:23 Dose: 0.03 units/min, 1.89 mls/hr Phenylephrine HCl 20 mg/ (Sodium Chloride) 252 mls @ 15.12 mls/hr IV .[id number] ODETTE; 20 MCG/MIN PRN Reason: Protocol Last Titration: 04/08/17 13:00 Dose: 0 mcg/min, 0 mls/hr Meropenem 500 mg/ Sodium (Chloride) 100 mls @ 100 mls/hr IVPB Q12 ODETTE PRN Reason: Protocol Last Admin: 04/09/17 09:12 Dose: 100 mls/hr Hydrocortisone Sodium Succinate 50 mg/ Sodium Chloride 100 mls @ 100 mls/hr IV Q6 ODETTE Last Admin: 04/09/17 16:08 Dose: 100 mls/hr Thiamine HCl 200 mg/ Sodium (Chloride) 102 mls @ 204 mls/hr IV Q12H ODETTE Last Admin: 04/09/17 16:04 Dose: 204 mls/hr Dobutamine HCl/Dextrose (Dobutamine/Dextrose 5% 500mg/250ml) 500 mg in 250 mls @ 10.41 mls/hr IV .Q24H ODETTE PRN Reason: 5 MCG/KG/MIN Last Admin: 04/09/17 03:02 Dose: 10.41 mls/hr Tobramycin Sulfate 80 mg/ (Sodium Chloride) 102 mls @ 100 mls/hr IV Q24H ODETTE Last Admin: 04/08/17 19:17 Dose: 100 mls/hr Norepinephrine Bitartrate 4 mg (/ Dextrose) 254 mls @ 9.52 mls/hr IV .Q24H ODETTE ; 2.5 MCG/MIN PRN Reason: Protocol Last Admin: 04/09/17 12:08 Dose: 2.5 mcg/min, 9.52 mls/hr Vancomycin HCl 500 mg/ Sodium (Chloride) 100 mls @ 100 mls/hr IVPB Q24H ODETTE PRN Reason: Protocol Last Admin: 04/09/17 16:59 Dose: 100 mls/hr Pantoprazole Sodium (Protonix Inj) 40 mg IVP Q12H [facility] Last Admin: 04/09/17 18:05 Dose: 40 mg - Labs Labs: 04/09/17 05:30 04/09/17 05:30 PT 36.0 Seconds (9.8-13.1) H D 04/08/17 05:30 INR 3.1 (0.9-1.2) H D 04/08/17 05:30 APTT 47.0 Seconds (25.6-37.1) H 04/08/17 05:30 - Constitutional Appears: No Acute Distress, Chronically Ill - Head Exam Head Exam: NORMAL INSPECTION - Eye Exam Additional comments: Sluggish reaction to light - ENT Exam Additional comments: Intubated - Neck Exam Neck Exam: Normal Inspection - Respiratory Exam Respiratory Exam: Decreased Breath Sounds (at bases), Rhonchi - Cardiovascular Exam Cardiovascular Exam: REGULAR RHYTHM - GI/Abdominal Exam GI & Abdominal Exam: Soft, Normal Bowel Sounds Additional comments: surgical wound open lower midline , sloughy base - Extremities Exam Extremities Exam: Pedal Edema Additional comments: L heel and R lateral ankle DTI - Back Exam Additional comments: MASD Sacral , buttock. - Neurological Exam Additional comments: Unresponsive, comatose - Psychiatric Exam Additional comments: Unresponsive. - Skin Skin Exam: Warm Assessment and Plan (1) Acute respiratory failure Status: Acute (2) Shock Status: Deleted (3) Pneumonia Status: Acute (4) Acute renal failure (ARF) Status: Acute (5) Anemia Status: Acute (6) Hematuria, gross Status: Deleted (7) Thrombocytopenia Status: Resolved (8) History of pulmonary embolus (PE) Status: Acute - Assessment and Plan (Free Text) Plan: Continue ventilatory support, Duoneb, Vasopressors, current abx and rest of Tx. ICU Time: 40 minutes.
--- NOTE | 2017-04-09 23:12 | CP.PCM.PN ---
Subjective - Date & Time of Evaluation Date of Evaluation: 04/09/17 Time of Evaluation: 13:00 - Subjective Subjective: renal follow u pnote no events overnight PEvss intubated on pressor support [id number] resent bilateral air entry equal abd soft edema + ao times 0 A&P: MICHAEL/ATN/septic shock/pnemonia/resp failure/thrombocytopenia hd initiated, tolerated well on tuesday lytes reviewed, ok today no hd today continue abx per ID bp on multiple pressors tube feeds + Objective - Vital Signs/Intake and Output Vital Signs (last 24 hours): Temp Pulse Resp BP Pulse Ox 98.8 F 80 16 111/60 100 04/09/17 20:00 04/09/17 22:00 04/09/17 22:00 04/09/17 22:00 04/09/17 22:00 Intake and Output: 04/09/17 04/10/17 18:59 06:59 Intake Total 254 548 Output Total 50 Balance 204 548 - Medications Medications: Current Medications Acetaminophen (Tylenol 650 Mg Supp) 650 mg CA Q4 PRN PRN Reason: Temp >101 Last Admin: 04/06/17 16:15 Dose: 650 mg Acetaminophen (Tylenol 650mg/20.3ml Solution Ud) 650 mg PO Q4 PRN PRN Reason: Temperature Last Admin: 04/08/17 04:15 Dose: 650 mg Albuterol/Ipratropium (Duoneb 3 Mg/0.5 Mg (3 Ml) Ud) 3 ml INH RQ4 PRN PRN Reason: Shortness of Breath Last Admin: 04/04/17 19:23 Dose: 3 ml Ascorbic Acid (Vitamin C 500 Mg Tab) 1,500 mg PO Q6H ODETTE Stop: 04/12/17 22:01 Last Admin: 04/09/17 21:55 Dose: 1,500 mg Vasopressin 100 units/ Sodium (Chloride) 105 mls @ 1.89 mls/hr IV .Q24H ODETTE; 0.03 UNITS/MIN PRN Reason: Protocol Last Admin: 04/07/17 18:23 Dose: 0.03 units/min, 1.89 mls/hr Phenylephrine HCl 20 mg/ (Sodium Chloride) 252 mls @ 15.12 mls/hr IV .[id number] ODETTE; 20 MCG/MIN PRN Reason: Protocol Last Titration: 04/08/17 13:00 Dose: 0 mcg/min, 0 mls/hr Meropenem 500 mg/ Sodium (Chloride) 100 mls @ 100 mls/hr IVPB Q12 ODETTE PRN Reason: Protocol Last Admin: 04/09/17 19:59 Dose: 100 mls/hr Hydrocortisone Sodium Succinate 50 mg/ Sodium Chloride 100 mls @ 100 mls/hr IV Q6 ODETTE Last Admin: 04/09/17 21:54 Dose: 100 mls/hr Thiamine HCl 200 mg/ Sodium (Chloride) 102 mls @ 204 mls/hr IV Q12H ODETTE Last Admin: 04/09/17 16:04 Dose: 204 mls/hr Dobutamine HCl/Dextrose (Dobutamine/Dextrose 5% 500mg/250ml) 500 mg in 250 mls @ 10.41 mls/hr IV .Q24H ODETTE PRN Reason: 5 MCG/KG/MIN Last Admin: 04/09/17 03:02 Dose: 10.41 mls/hr Tobramycin Sulfate 80 mg/ (Sodium Chloride) 102 mls @ 100 mls/hr IV Q24H ODETTE Last Admin: 04/09/17 19:59 Dose: 100 mls/hr Norepinephrine Bitartrate 4 mg (/ Dextrose) 254 mls @ 9.52 mls/hr IV .Q24H ODETTE ; 2.5 MCG/MIN PRN Reason: Protocol Last Titration: 04/09/17 21:51 Dose: 7.5 mcg/min, 28.57 mls/hr Vancomycin HCl 500 mg/ Sodium (Chloride) 100 mls @ 100 mls/hr IVPB Q24H ODETTE PRN Reason: Protocol Last Admin: 04/09/17 16:59 Dose: 100 mls/hr Pantoprazole Sodium (Protonix Inj) 40 mg IVP Q12H ODETTE Last Admin: 04/09/17 18:05 Dose: 40 mg - Labs Labs: 04/09/17 05:30 04/09/17 05:30 PT 36.0 Seconds (9.8-13.1) H D 04/08/17 05:30 INR 3.1 (0.9-1.2) H D 04/08/17 05:30 APTT 47.0 Seconds (25.6-37.1) H 04/08/17 05:30
--- NOTE | 2017-04-09 23:35 | PN ---
CRITICAL CARE PROGRESS NOTE DATE: 04/09/2017 LOCATION: The patient in ICU, bed 423. TIME SPENT: 45 minutes. The patient is seen and examined at the bedside, discussed with family at bedside, updated clinical condition and the critical nature. Past medical, surgical and social history reviewed. SUBJECTIVE: A 51-year-old female with history of cervical and endometrial cancer diagnosed in 2014 status post surgery, radiation and chemotherapy, subsequently developed enteritis, admitted to [facility]. Had surgery for enteritis, postop complicated with ascites, hydronephrosis with ureteral stent placement, acute renal failure, severe metabolic acidosis and pulmonary embolism. The patient was admitted through emergency room on 04/05/2017, when she became more lethargic, noted to have admitted with high lactate, sepsis, and septic shock with wound culture from the abdomen positive for pseudomonas, Klebsiella, enterococcus and the blood culture for Klebsiella pneumoniae, on multiple antibiotics and on multiple pressures including vasopressin, Levophed, and dobutamine. Remains lethargic, hardly responds to painful stimuli. Overnight, intubated on mechanical ventilation, on AC 14, tidal volume 450, FiO2 of 30%, saturating 100%, peak airway pressure 22, mean airway pressure 10, minute ventilation 7.5 L. No sedation required, remains lethargic, grimaces to pain only. PHYSICAL EXAMINATION: VITAL SIGNS: Temperature 100 rectally, heart rate 90 to 95 regular, blood pressure 104/69 to 116/61, saturations 100%, intake 3066, output 1260, positive balance 1806. HEAD, EYES, EAR, NOSE AND THROAT: Pupils reactive, conjunctivae pale, sclera anicteric, endotracheal tube in place, no secretion noted. CHEST: Bilateral breath sounds. Clear to auscultation anteriorly and laterally. HEART: Rhythm regular. S1 and S2 normal. No audible murmur or rub. ABDOMEN: Bowel sounds present times all four quadrants, diminished. No palpable tenderness. EXTREMITIES: Upper extremity edema plus, lower extremity edema 1+. DP palpable. No palpable cord on the lower extremities. NEURO EXAMINATION: Grimaces to pain. CURRENT MEDICATIONS: Tylenol 650 suppository q. 4 p.r.n. for temperature more than 101, DuoNeb 3 mL q. 4 p.r.n., vitamin C 1500 mg p.o. q. 6, Dobutrex at 5 mcg/kg/minute, hydrocortisone 150 mg IV q. 6 hours, meropenem 500 mg IV q. 12, Levophed at 2.5 mcg/minute, Protonix 40 IV q. 12, phenylephrine at 20 mcg/minute, thiamine 200 mg IV q. 12 hours, tobramycin 80 mg q. 24 hours, vasopressin 100 units in 105 mL at 1.89 mL every 24 hours. LABORATORY DATA: WBC 6.3, hemoglobin 7.9, hematocrit 23.7, platelet count 10, neutrophils 91.5, lymphocytes 7.4, monocytes 0.9, eosinophils 0.1. PT 36, INR 3.1, PTT 47, fibrinogen 339. ABG, pH 7.44, pCO2 of 35, pO2 of 64. On AC/PRVC 14, 450, 30%, PEEP of 5, FiO2 increased to 50%. SMA-7: Sodium 133, potassium 2.9, chloride 99, CO2 of 24, blood urea nitrogen 19, creatinine 1.3, random glucose 134, calcium 5.9, corrected calcium 6.6. Urinalysis: Leuko esterase moderate, wbc 7, , bacteria few. Vancomycin random level 14.8. Serology: Hepatitis B surface antigen negative, antibody negative, core antibody IgM negative. Microbiology: Blood culture positive for gram-positive cocci in chains. Wound culture from abdomen positive for Pseudomonas aeruginosa, Klebsiella pneumoniae, Enterococcus faecalis. Blood culture positive for Klebsiella pneumoniae. Chest x-ray, endotracheal tube in place, reduced lung volume secondary to poor inspiratory effort. IMPRESSION: 1. Neurologic: Septic metabolic encephalopathy. 2. Pulmonary: Acute hypoxic respiratory failure on mechanical ventilation, continue ventilatory support. The patient not weanable candidate at this time. Keep head of bed 30 degree up, spontaneous breathing trial not attempted as the patient is a poor candidate for extubation. 3. Cardiac: Hypotension secondary to sepsis, septic shock on multiple pressors, maintain mean arterial pressure at 65 and above, continue IV hydration. 4. Infectious Diseases. Sepsis with bacteremia, source from abdominal wound, lung and urinary tract infection. Appreciate Infectious Diseases consult. Currently on vancomycin, meropenem, and tobramycin. 5. Gastrointestinal: Status post surgery for enteritis recently. Once the patient has become more stable, we will obtain CT abdomen to asses any ongoing pathology. Follow up procalcitonin level and serum lactic acid level. Previous lactic acid level is trending down. 6. Renal: Improving prerenal azotemia, hypokalemia. Supplement with potassium. Hypocalcemia, supplement calcium. 7. Hematology: Anemia noted, no active bleeding. Thrombocytopenia, seen by Hematology consult, noted current recommendations secondary to disseminated intravascular coagulation. Closely monitor for further active bleeding. 8. Deep venous thrombosis prophylaxis with sequential compression device. Continue gastrointestinal prophylaxis. Prognosis remains guarded, discussed with family at the bedside. Timothy Gunderson MD
[2017-04-10] MEDS: Hydrocortisone- 50 MG in Sodium Chloride 0.9% 100 ML IV SCH ×2 (03:28→09:00)
[2017-04-10] MEDS: Thiamine 200 MG in Sodium Chloride 0.9% 100 ML IV SCH ×2 (03:29→16:41)
[2017-04-10] MEDS: DOBUTamine 500mg/250ml D5W 500 MG/250 ML BAG IV SCH (03:42)
[2017-04-10 05:34] LABS: ABG ALLEN TEST YES; ABG MECHANICAL RATE 14; ARTERIAL BLOOD GAS HCO3 22.9 mmol/L (21-28); ARTERIAL BLOOD GAS MODE A/C; ARTERIAL BLOOD GAS O2 CAPACITY 11.3 mL/dL (16-24); ARTERIAL BLOOD GAS O2 CONTENT 11.4 ML/dL (15-23); ARTERIAL BLOOD GAS PO2 86 mm/Hg (80-100); ARTERIAL BLOOD HGB O2 SAT 97.8 % (95.0-98.0); ATERIAL BLOOD GAS PEEP 5; CARBOXYHEMOGLOBIN 2.1 % (0.5-1.5); HHB -0.6 % (0.0-5.0); METHEMOGLOBIN 0.8 % (0.0-3.0)
[2017-04-10 06:20] LABS: MEAN CELL VOLUME 82.7 fl (81.0-99.0); MEAN CORPUSCULAR HEMOGLOBIN 26.9 pg (27.0-31.0); MEAN CORPUSCULAR HGB CONC 32.5 g/dL (33.0-37.0); RED CELL DISTRIBUTION WIDTH 17.2 % (11.5-14.5); WHITE BLOOD COUNT 8.4 K/uL (4.8-10.8)
[2017-04-10 06:29] LABS: POTASSIUM 2.8 MMOL/L (3.6-5.0)
[2017-04-10 06:31] LABS: CALCIUM 5.3 mg/dL (8.4-10.2)
[2017-04-10] MEDS ORDERED: HYDROmorphone 0.5 mg/0.5 ml ISec IVP ONE (08:47)
[2017-04-10] MEDS: Meropenem 500 MG in Sodium Chloride 0.9% 100 ML IVPB SCH ×2 (08:59→21:12)
[2017-04-10] MEDS: Potassium CL 10 MEQ/50 ML 50 ML IVPB SCH ×2 (09:02→11:00)
[2017-04-10 10:21] LABS: MAGNESIUM 1.3 MG/DL (1.6-2.3); PHOSPHOROUS 1.1 mg/dl (2.5-4.5)
--- NOTE | 2017-04-10 10:54 | RAD ---
HISTORY: ETT placement COMPARISON: No prior. FINDINGS: In situ ETT, tip of which lies approximately 4.83 cm above sloane. NGT is present, the tip of which overlies the mid to lower mediastinum likely within the mid to distal esophagus. This must be advanced. No change right IJ dialysis catheter with tip in the SVC/RA junction LUNGS: Findings suggest mild pulmonary vascular congestion with bilateral mid to lower lobe infiltrates. Suspect small right-sided effusion. PLEURA: As above. No pneumothorax apparent. CARDIOVASCULAR: Normal. OSSEOUS STRUCTURES: No significant abnormalities. VISUALIZED UPPER ABDOMEN: Normal. OTHER FINDINGS: None. IMPRESSION: NGT tip lies within the mid to lower esophagus region and should be advanced. Note these findings were discussed with Dr. Gunderson at approximately 10:45 a.m. with written down and read back verification. Remaining support lines and tubes as above. Findings suggest mild pulmonary vascular congestion with bilateral mid to lower lobe infiltrates. Suspect small right-sided effusion
--- NOTE | 2017-04-10 12:20 | CP.PCM.PN ---
Subjective - Date & Time of Evaluation Date of Evaluation: 04/10/17 Time of Evaluation: 12:17 - Subjective Subjective: Pt has opened her eyes and seems to follow commands. Her CBC is stable except the platelets which are12k today. Will transfuse 1 unit of platelets today Objective - Vital Signs/Intake and Output Vital Signs (last 24 hours): Temp Pulse Resp BP Pulse Ox 99.0 F 85 15 113/65 100 04/10/17 08:00 04/10/17 08:00 04/10/17 08:00 04/10/17 08:00 04/10/17 08:00 Intake and Output: 04/10/17 04/10/17 06:59 18:59 Intake Total 1238 Output Total 650 Balance 588 - Medications Medications: Current Medications Acetaminophen (Tylenol 650 Mg Supp) 650 mg RI Q4 PRN PRN Reason: Temp >101 Last Admin: 04/06/17 16:15 Dose: 650 mg Acetaminophen (Tylenol 650mg/20.3ml Solution Ud) 650 mg PO Q4 PRN PRN Reason: Temperature Last Admin: 04/08/17 04:15 Dose: 650 mg Albuterol/Ipratropium (Duoneb 3 Mg/0.5 Mg (3 Ml) Ud) 3 ml INH RQ4 PRN PRN Reason: Shortness of Breath Last Admin: 04/04/17 19:23 Dose: 3 ml Ascorbic Acid (Vitamin C 500 Mg Tab) 1,500 mg PO Q6H ODETTE Stop: 04/12/17 22:01 Last Admin: 04/10/17 08:58 Dose: 1,500 mg Hydrocortisone Sodium Succinate (Solu-Cortef) 50 mg IV Q6H ODETTE Vasopressin 100 units/ Sodium (Chloride) 105 mls @ 1.89 mls/hr IV .Q24H ODETTE; 0.03 UNITS/MIN PRN Reason: Protocol Last Admin: 04/07/17 18:23 Dose: 0.03 units/min, 1.89 mls/hr Phenylephrine HCl 20 mg/ (Sodium Chloride) 252 mls @ 15.12 mls/hr IV .[id number] ODETTE; 20 MCG/MIN PRN Reason: Protocol Last Titration: 04/08/17 13:00 Dose: 0 mcg/min, 0 mls/hr Meropenem 500 mg/ Sodium (Chloride) 100 mls @ 100 mls/hr IVPB Q12 ODETTE PRN Reason: Protocol Last Admin: 04/10/17 08:59 Dose: 100 mls/hr Thiamine HCl 200 mg/ Sodium (Chloride) 102 mls @ 204 mls/hr IV Q12H ODETTE Last Admin: 04/10/17 03:29 Dose: 204 mls/hr Dobutamine HCl/Dextrose (Dobutamine/Dextrose 5% 500mg/250ml) 500 mg in 250 mls @ 10.41 mls/hr IV .Q24H ODETTE PRN Reason: 5 MCG/KG/MIN Last Admin: 04/10/17 03:42 Dose: 10.41 mls/hr Tobramycin Sulfate 80 mg/ (Sodium Chloride) 102 mls @ 100 mls/hr IV Q24H [facility] Last Admin: 04/09/17 19:59 Dose: 100 mls/hr Vancomycin HCl 500 mg/ Sodium (Chloride) 100 mls @ 100 mls/hr IVPB Q24H ODETTE PRN Reason: Protocol Last Admin: 04/09/17 16:59 Dose: 100 mls/hr Pantoprazole Sodium (Protonix Inj) 40 mg IVP Q12H [facility] Last Admin: 04/10/17 06:22 Dose: 40 mg - Labs Labs: 04/10/17 06:15 04/10/17 06:15 PT 36.0 Seconds (9.8-13.1) H D 04/08/17 05:30 INR 3.1 (0.9-1.2) H D 04/08/17 05:30 APTT 47.0 Seconds (25.6-37.1) H 04/08/17 05:30
[2017-04-10] MEDS ORDERED: Magnesium Sulfate 1 gm in D5W 1 GM/100 ML BAG IVPB ONE (12:38)
[2017-04-10] MEDS ORDERED: Potassium Phosphate 3 mmol/ml Inj IV ONE (12:40)
[2017-04-10] MEDS ORDERED: SODIUM CHLORIDE IV NR (12:45)
[2017-04-10] MEDS ORDERED: POTASSIUM PHOSPHATE IV NR (12:45)
--- NOTE | 2017-04-10 14:44 | CP.PCM.PN ---
Subjective - Date & Time of Evaluation Date of Evaluation: 04/10/17 Time of Evaluation: 10:30 - Subjective Subjective: F/U Respiratory Failure. Pt with open eyes, continue on mechanical ventilator, PRVC/AC 14, FIO2 50%. Objective - Vital Signs/Intake and Output Vital Signs (last 24 hours): Temp Pulse Resp BP Pulse Ox 99.1 F 85 14 103/64 100 04/10/17 12:00 04/10/17 12:00 04/10/17 12:00 04/10/17 12:00 04/10/17 12:00 Intake and Output: 04/10/17 04/10/17 06:59 18:59 Intake Total 1238 Output Total 650 Balance 588 - Medications Medications: Current Medications Acetaminophen (Tylenol 650 Mg Supp) 650 mg CO Q4 PRN PRN Reason: Temp >101 Last Admin: 04/06/17 16:15 Dose: 650 mg Acetaminophen (Tylenol 650mg/20.3ml Solution Ud) 650 mg PO Q4 PRN PRN Reason: Temperature Last Admin: 04/08/17 04:15 Dose: 650 mg Albuterol/Ipratropium (Duoneb 3 Mg/0.5 Mg (3 Ml) Ud) 3 ml INH RQ4 PRN PRN Reason: Shortness of Breath Last Admin: 04/04/17 19:23 Dose: 3 ml Ascorbic Acid (Vitamin C 500 Mg Tab) 1,500 mg PO Q6H ODETTE Stop: 04/12/17 22:01 Last Admin: 04/10/17 08:58 Dose: 1,500 mg Hydrocortisone Sodium Succinate (Solu-Cortef) 50 mg IV Q6H ODETTE Vasopressin 100 units/ Sodium (Chloride) 105 mls @ 1.89 mls/hr IV .Q24H ODETTE; 0.03 UNITS/MIN PRN Reason: Protocol Last Admin: 04/07/17 18:23 Dose: 0.03 units/min, 1.89 mls/hr Phenylephrine HCl 20 mg/ (Sodium Chloride) 252 mls @ 15.12 mls/hr IV .[id number] ODETTE; 20 MCG/MIN PRN Reason: Protocol Last Titration: 04/08/17 13:00 Dose: 0 mcg/min, 0 mls/hr Meropenem 500 mg/ Sodium (Chloride) 100 mls @ 100 mls/hr IVPB Q12 ODETTE PRN Reason: Protocol Last Admin: 04/10/17 08:59 Dose: 100 mls/hr Thiamine HCl 200 mg/ Sodium (Chloride) 102 mls @ 204 mls/hr IV Q12H ODETTE Last Admin: 04/10/17 03:29 Dose: 204 mls/hr Dobutamine HCl/Dextrose (Dobutamine/Dextrose 5% 500mg/250ml) 500 mg in 250 mls @ 10.41 mls/hr IV .Q24H ODETTE PRN Reason: 5 MCG/KG/MIN Last Admin: 04/10/17 03:42 Dose: 10.41 mls/hr Tobramycin Sulfate 80 mg/ (Sodium Chloride) 102 mls @ 100 mls/hr IV Q24H ODETTE Last Admin: 04/09/17 19:59 Dose: 100 mls/hr Vancomycin HCl 500 mg/ Sodium (Chloride) 100 mls @ 100 mls/hr IVPB Q24H ODETTE PRN Reason: Protocol Last Admin: 04/09/17 16:59 Dose: 100 mls/hr Potassium Phosphate 11.25 (mmole/ Sodium Chloride) 253.75 mls @ 63.438 mls/hr IV ONCE NR Stop: 04/10/17 16:46 Pantoprazole Sodium (Protonix Inj) 40 mg IVP Q12H [facility] Last Admin: 04/10/17 06:22 Dose: 40 mg - Labs Labs: 04/10/17 06:15 04/10/17 06:15 PT 36.0 Seconds (9.8-13.1) H D 04/08/17 05:30 INR 3.1 (0.9-1.2) H D 04/08/17 05:30 APTT 47.0 Seconds (25.6-37.1) H 04/08/17 05:30 - Constitutional Appears: Chronically Ill - Head Exam Head Exam: NORMAL INSPECTION - Eye Exam Eye Exam: PERRL - ENT Exam Additional comments: Intubated - Neck Exam Neck Exam: Normal Inspection - Respiratory Exam Respiratory Exam: Decreased Breath Sounds (at bases), Rhonchi - Cardiovascular Exam Cardiovascular Exam: REGULAR RHYTHM - GI/Abdominal Exam GI & Abdominal Exam: Soft, Normal Bowel Sounds Additional comments: surgical wouund open mid lower abdomen , yellow sloughy base - Extremities Exam Extremities Exam: Pedal Edema Additional comments: L heel and R lateral ankle DTI - Back Exam Additional comments: MASD Sacral , buttock. - Neurological Exam Additional comments: Unresponsive, comatose. - Psychiatric Exam Psychiatric exam: Flat Affect - Skin Skin Exam: Warm Assessment and Plan (1) Acute respiratory failure Status: Acute (2) Shock Status: Deleted (3) Pneumonia Status: Acute (4) Acute renal failure (ARF) Status: Acute (5) Anemia Status: Acute (6) Hematuria, gross Status: Deleted (7) Thrombocytopenia Status: Resolved (8) History of pulmonary embolus (PE) Status: Acute - Assessment and Plan (Free Text) Plan: Continue ventilator, Merrem, Vanco, Duoneb and rest of Tx. ICU Time: 39 min.
[2017-04-10] MEDS ORDERED: DOBUTamine 500mg/250ml D5W 500 MG/250 ML BAG IV SCH (17:15)
--- NOTE | 2017-04-10 18:57 | PN ---
CRITICAL CARE PROGRESS NOTE DATE: 04/10/2017 LOCATION: The patient in ICU bed #423. TIME SPENT: 40 minutes. SUBJECTIVE: The patient is seen and examined at the bedside. Discussed with family, updated clinical condition and the critical nature. Past medical, surgical, and, social history reviewed. A 51-year-old moderately obese female with history of cervical and endometrial cancer, status post hysterectomy, radiation and chemo therapy, subsequently remains cancer free. Recent hospital admission for enteritis, underwent diagnostic laparotomy that reportedly showed no findings. Postoperatively complicated with ascites, hydronephrosis status post urethral stent placement, subsequent improvement of renal function, also pulmonary embolism status post inferior vena cava filter insertion, admitted from home through emergency room with abdominal pain, noted to be in severe sepsis with septic shock and acute renal failure, undergoing on hemodialysis. Overnight, on multiple pressors with vasopressin, Levophed and dobutamine for sepsis with septic shock. Wound culture positive for a Pseudomonas Klebsiella, Enterococcus and the blood culture Klebsiella pneumonia. On multiple antibiotics as per ID consult Dr. Hernandez. Remains intubated without sedation on AC 49, tidal volume of 450, FIO2 of 50%, PEEP of 5, saturation 100, peak airway pressure of 19, mean airway pressure 10, end-tidal CO2 of 60, oxygen saturation 100, minute ventilation 6.8 liters, observed rate 15. Head of bed 30 degrees up. No sedation required as the patient remains lethargic and grimaces to pain. This morning nurses reports that she blinks eyes, when the nurse asked patient having pain, nodded head when pointed to abdomen, given Dilaudid 0.5 mg, remains more sedated. PHYSICAL EXAMINATION: VITAL SIGNS: Temperature 99.1, heart rate 85 regular, blood pressure 103/64, mean arterial pressure 77. Intake 1492, output 700. Positive balance 792, status post dialysis on Tuesday. HEAD, EYES, EARS, NOSE, AND THROAT: Pupils reactive, sluggish. Conjunctivae pink. Sclerae white. Oral mucosa dried blood clots. No secretions in the endotracheal tube. CHEST: Bilateral breath sounds. Clear to auscultation anteriorly and laterally. HEART: Rhythm regular. S1, S2 normal. No audible murmur or rub. ABDOMEN: Bowel sounds present times all four quadrants, diminished in intensity. No palpable or reproducible tenderness. EXTREMITIES: Upper extremity edema, 1+ DP palpable, no palpable cord on the lower extremities. NEUROLOGIC EXAMINATION: Grimaces to pain. CURRENT MEDICATIONS: Tylenol supposedly 650 q.4 hours p.r.n., DuoNeb 3 ml q.4 hours p.r.n., vitamin C 1500 mg q.6 hours, Dobutrex at 5 mcg/ kg/minute, hydrocortisone 150 mg IV q.6 hours, meropenem 500 mg IV q.12 hours, Levophed at 2.5 mcg/minute, Protonix 40 IV q.12 hours, phenylephrine at 20 mcg/minute, thiamine 200 mg IV q.12 hours, tobramycin 80 mg daily, vasopressin 100 units in 105 mL at 1.89 mL every 24 hours. LABORATORY DATA: WBC 8.4, hemoglobin 8.1, hematocrit 25, platelet count 12. PT 36, INR 3.1, PTT 47, fibrinogen 339. ABG, pH of 7.40, pCO2 of 35, pO2 of 86, oxygen saturation 100.6% on AC 14, 450, 50%, PEEP of 5. SMA-7, sodium 130, potassium 2.8, chloride 97, CO2 of 22, blood urea nitrogen 24, creatinine 1.5, glucose 123, calcium 5.3, phosphorus 1.1, magnesium 1.3. Urine analysis, RBC 8009, microscopic WBC 718, bacteria few, toxicology gentamicin trough level 1.2. Random vancomycin trough level 14.8. Serology, hepatitis B serology negative. Microbiology, blood culture, Enterococcus faecalis, wound culture of Pseudomonas aeruginosa, Klebsiella pneumonia, Enterococcus faecalis. Blood culture Klebsiella pneumonia. Chest x-ray, NG tube lies within the mid to lower esophagus region and readjusted, mild pulmonary vascular congestion with bilateral mid to lower lobe infiltrate, suspected small right-sided effusion. IMPRESSION 1. Neurologic: Septic metabolic hypoxic encephalopathy, remains without improvement. 2. Pulmonary: Hypoxic respiratory failure, on mechanical ventilation. Continue ventilatory support. The patient not winnable candidate at this time. Keep the head of bed 30 degrees up. Spontaneous breathing trial not attempted as the patient is a poor candidate for extubation now. 3. Cardiac: Remains hypotensive secondary to sepsis and rule out myocardial depression secondary to sepsis on multiple pressors, maintain mean arterial pressure 65 and above, would check with primary for cardiology evaluation to do transesophageal echocardiogram to assess vegetations. 4. Infectious disease: Sepsis with bacteremia, source wound, lung and urinary tract. Appreciate infectious disease evaluation. Currently on vancomycin, meropenem and tobramycin, would benefit from a CT scan of the abdomen without contrast to assess any source of infection and/or infection involving the spleen or liver or intra peritoneal. 5. Gastrointestinal, status post surgery for antritis recently, noted to have open wound at the abdominal wall with multiple bacteria growing from the wound, on antibiotics as per ID consult. 6. Renal. Renal insufficiency, hypophosphatemia and hypomagnesemia. We will replace potassium, magnesium and calcium. Also obtain parathyroid hormone level. 7. Hematology. Anemia without any active bleeding, thrombocytopenia, platelet count reduced to 12. We will follow with Hematology recommendations. No active bleeding. May need transfusion very further drop in the platelets. Secondary profile consistent with disseminated intravascular coagulation. Continue GI and DVT prophylaxis. ACD in place. PROGNOSIS: Remains guarded. Timothy Gunderson MD
--- NOTE | 2017-04-10 20:55 | CP.PCM.PN ---
Subjective - Date & Time of Evaluation Date of Evaluation: 04/10/17 Time of Evaluation: 13:00 - Subjective Subjective: renal follow u pnote no events overnight PE vitals reviewed intubated on pressor support [id number] resent bilateral air entry equal abd soft edema ++ ao times 0 A&P: MICHAEL/ATN/septic shock/pnemonia/resp failure/thrombocytopenia/hyponatremia/ hypokalemia hd initiated, tolerated well on tuesday, no acute needs today lytes reviewed, replace and recheck per ICU no hd today can decrease free water per tube feeds continue abx per ID bp on multiple pressors tube feeds + Objective - Vital Signs/Intake and Output Vital Signs (last 24 hours): Temp Pulse Resp BP Pulse Ox 98.5 F 90 16 90/50 L 100 04/10/17 16:21 04/10/17 17:00 04/10/17 16:21 04/10/17 18:50 04/10/17 17:00 Intake and Output: 04/10/17 04/11/17 18:59 06:59 Intake Total 105 Output Total 300 Balance -195 - Medications Medications: Current Medications Acetaminophen (Tylenol 650 Mg Supp) 650 mg TX Q4 PRN PRN Reason: Temp >101 Last Admin: 04/06/17 16:15 Dose: 650 mg Acetaminophen (Tylenol 650mg/20.3ml Solution Ud) 650 mg PO Q4 PRN PRN Reason: Temperature Last Admin: 04/08/17 04:15 Dose: 650 mg Albuterol/Ipratropium (Duoneb 3 Mg/0.5 Mg (3 Ml) Ud) 3 ml INH RQ4 PRN PRN Reason: Shortness of Breath Last Admin: 04/04/17 19:23 Dose: 3 ml Ascorbic Acid (Vitamin C 500 Mg Tab) 1,500 mg PO Q6H ODETTE Stop: 04/12/17 22:01 Last Admin: 04/10/17 16:42 Dose: 1,500 mg Hydrocortisone Sodium Succinate (Solu-Cortef) 50 mg IV Q6H ODETTE Last Admin: 04/10/17 15:00 Dose: 50 mg Vasopressin 100 units/ Sodium (Chloride) 105 mls @ 1.89 mls/hr IV .Q24H ODETTE; 0.03 UNITS/MIN PRN Reason: Protocol Last Admin: 04/10/17 18:50 Dose: 0.03 units/min, 1.89 mls/hr Phenylephrine HCl 20 mg/ (Sodium Chloride) 252 mls @ 15.12 mls/hr IV .[id number] ODETTE; 20 MCG/MIN PRN Reason: Protocol Last Titration: 04/08/17 13:00 Dose: 0 mcg/min, 0 mls/hr Meropenem 500 mg/ Sodium (Chloride) 100 mls @ 100 mls/hr IVPB Q12 ODETTE PRN Reason: Protocol Last Admin: 04/10/17 08:59 Dose: 100 mls/hr Thiamine HCl 200 mg/ Sodium (Chloride) 102 mls @ 204 mls/hr IV Q12H ODETTE Last Admin: 04/10/17 16:41 Dose: 204 mls/hr Tobramycin Sulfate 80 mg/ (Sodium Chloride) 102 mls @ 100 mls/hr IV Q24H ODETTE Last Admin: 04/10/17 19:33 Dose: Not Given Vancomycin HCl 500 mg/ Sodium (Chloride) 100 mls @ 100 mls/hr IVPB Q24H ODETTE PRN Reason: Protocol Last Admin: 04/10/17 16:40 Dose: 100 mls/hr Norepinephrine Bitartrate 4 mg (/ Dextrose) 254 mls @ 9.52 mls/hr IV .Q24H ODETTE ; 2.5 MCG/MIN PRN Reason: Protocol Last Admin: 04/10/17 18:47 Dose: 2.5 mcg/min, 9.52 mls/hr Dobutamine HCl/Dextrose (Dobutamine/Dextrose 5% 500mg/250ml) 500 mg in 250 mls @ 5.205 mls/hr IV .Q24H ODETTE; 2.5 MCG/KG/MIN PRN Reason: Protocol Pantoprazole Sodium (Protonix Inj) 40 mg IVP Q12H ODETTE Last Admin: 04/10/17 18:49 Dose: 40 mg - Labs Labs: 04/10/17 06:15 04/10/17 06:15 PT 36.0 Seconds (9.8-13.1) H D 04/08/17 05:30 INR 3.1 (0.9-1.2) H D 04/08/17 05:30 APTT 47.0 Seconds (25.6-37.1) H 04/08/17 05:30
[2017-04-11] MEDS: Thiamine 200 MG in Sodium Chloride 0.9% 100 ML IV SCH ×2 (03:20→16:38)
[2017-04-11 05:24] LABS: BASO % 0.1 % (0.0-2.0); EOS % 0.1 % (0.0-4.0); HEMATOCRIT 22.6 % (34.0-47.0); LYMPH # 0.4 K/uL (1.0-4.3); LYMPH % 15.5 % (20.0-40.0); MEAN CELL VOLUME 83.3 fl (81.0-99.0); MEAN CORPUSCULAR HEMOGLOBIN 26.8 pg (27.0-31.0); MEAN CORPUSCULAR HGB CONC 32.1 g/dL (33.0-37.0); MEAN PLATELET VOLUME 10.3 fl (7.2-11.7); MONO % 1.1 % (0.0-10.0); NEUT # 2.1 K/uL (1.8-7.0); NEUT % 83.2 % (50.0-75.0); NRBC % 9.1 % (0.0-0.0); WHITE BLOOD COUNT 2.5 K/uL (4.8-10.8)
[2017-04-11 05:26] LABS: BILIRUBIN,TOTAL 1.8 mg/dl (0.2-1.3); POTASSIUM 2.7 MMOL/L (3.6-5.0); TOTAL PROTEIN 4.7 G/DL (6.3-8.2)
[2017-04-11 05:28] LABS: ABG ALLEN TEST YES; ABG MECHANICAL RATE 14; ARTERIAL BLOOD GAS HCO3 21.2 mmol/L (21-28); ARTERIAL BLOOD GAS MODE PRVC/AC; ARTERIAL BLOOD GAS PH 7.37 (7.35-7.45); ARTERIAL BLOOD GAS PO2 108 mm/Hg (80-100); ATERIAL BLOOD GAS PEEP 5
[2017-04-11 05:31] LABS: CALCIUM 4.2 mg/dL (8.4-10.2)
[2017-04-11] MEDS ORDERED: Iohexol 240 (50 ml) PO ONE (09:28)
[2017-04-11] MEDS ORDERED: Magnesium Sulfate 1 gm in D5W 1 GM/100 ML BAG IVPB ONE (09:35)
[2017-04-11] MEDS: Meropenem 500 MG in Sodium Chloride 0.9% 100 ML IVPB SCH ×2 (09:36→22:00)
--- NOTE | 2017-04-11 09:40 | CP.CCUPN ---
CCU Subjective - Physician Review Events Since Last Encounter (Free Text): 04/11/17 12:37 The patient was Seen/interviewed and examined by me at the bedside during ICU round, Medical records reviewed and Management issues were discussed and formulated with the house staff. 51 Years old female critically sick intubated on vasopressors and inotropic support for acute hypoxemic Respiratory Failure secondary to pneumonia & Septic Shock and bacteremia from Psudomonas and Kleb pneumoniae (ESBL) in ABF wound & Acute Renal Failure And possible Ischemic Bowel Clinically, hemodynamically not improved Vasopressors requirements remains same Off sedation, little more Awake today, Orally intubated Pt. suctioned. Thick yellow secretions removed. Scheduled for ABD CT scan today to evaluate for the source of infection and will have HD afterwards Pt febrile to 100 with Tmx 100.3 NSR on the monitor Last 24H I&O 1597/700 This morning labs revealed no Leucocytosis, severe thrombocytopenia, fairly stable renal function BUN/Cr up to 25/1.7 04/11/17 12:44 Patient vomited moderate amount bile, Zofran ordered, scheduled for CT scan today Critical Care Time Spent (in minutes): 56 CCU Objective - Vital Signs / Intake & Output Vital Signs (Last 4 hours): Vital Signs Temp Pulse Resp BP Pulse Ox 04/11/17 08:55 88 18 101/57 L 98 04/11/17 08:00 100.0 F H 87 106/60 100 04/11/17 06:00 97 H 17 102/61 100 Intake and Output (Last 8hrs): Intake & Output 04/10/17 04/11/17 04/11/17 22:59 06:59 14:59 Intake Total 205 492 Output Total 300 250 Balance -95 242 Intake: IV 105 Intake, Piggyback 100 492 Output: Urine 300 250 Urethral (Overton) 300 250 - Physical Exam Physical Exam Limitations: Positive for: Altered Mental Status, Clinical Condition Head: Positive for: Atraumatic, Normocephalic. Negative for: Tenderness, Contusion Pupils: Positive for: PERRL. Negative for: Sluggish, Non-Reactive Extroacular Muscles: Positive for: EOMI. Negative for: Gaze Palsy Conjunctiva: Positive for: Normal. Negative for: Injected, Icteric Mouth: Positive for: Dry (bloody) Neck: Negative for: JVD Respiratory/Chest: Positive for: Decreased Breath Sounds, Rales, Retracting, Rhonchi, Tachypneic. Negative for: Accessory Muscle Use, Wheezes Cardiovascular: Positive for: Regular Rate and Rhythm. Negative for: Murmurs, Rub Abdomen: Positive for: Distention, Normal Bowel Sounds. Negative for: Tenderness Upper Extremity: Positive for: Edema Lower Extremity: Positive for: Edema. Negative for: CALF TENDERNESS, NORMAL PULSES, Cyanosis Psychiatric: Positive for: Alert, Lethargic - Medications Active Medications: Active Medications Generic Name Dose Route Start Last Admin Trade Name Freq PRN Reason Stop Dose Admin Acetaminophen 650 mg 04/06/17 05:00 04/06/17 16:15 Tylenol 650 Mg Supp NV 650 mg Q4 PRN Administration Temp >101 Acetaminophen 650 mg 04/07/17 04:12 04/08/17 04:15 Tylenol 650mg/20.3ml Solution Ud PO 650 mg Q4 PRN Administration Temperature Albuterol/Ipratropium 3 ml 04/04/17 19:10 04/04/17 19:23 Duoneb 3 Mg/0.5 Mg (3 Ml) Ud INH 3 ml RQ4 PRN Administration Shortness of Breath Ascorbic Acid 1,500 mg 04/08/17 22:00 04/11/17 03:19 Vitamin C 500 Mg Tab PO 04/12/17 22:01 1,500 mg Q6H ODETTE Administration Hydrocortisone Sodium Succinate 50 mg 04/10/17 15:00 04/11/17 03:19 Solu-Cortef IV 50 mg Q6H ODETTE Administration Vasopressin 100 units/ Sodium 105 mls @ 1.89 mls/hr 04/05/17 23:45 04/10/17 18:50 Chloride IV 0.03 units/min .Q24H ODETTE 1.89 mls/hr Protocol Administration 0.03 UNITS/MIN Phenylephrine HCl 20 mg/ 252 mls @ 15.12 mls/hr 04/06/17 07:45 04/08/17 13:00 Sodium Chloride IV 0 mcg/min .[id number] ODETTE 0 mls/hr Protocol Titration 20 MCG/MIN Meropenem 500 mg/ Sodium 100 mls @ 100 mls/hr 04/06/17 10:45 04/10/17 21:12 Chloride IVPB 100 mls/hr Q12 ODETTE Administration Protocol Thiamine HCl 200 mg/ Sodium 102 mls @ 204 mls/hr 04/06/17 15:30 04/11/17 03: 20 Chloride IV 204 mls/hr Q12H ODETTE Administration Tobramycin Sulfate 80 mg/ 102 mls @ 100 mls/hr 04/08/17 18:30 04/10/17 19:33 Sodium Chloride IV Not Given Q24H ODETTE Vancomycin HCl 500 mg/ Sodium 100 mls @ 100 mls/hr 04/09/17 15:00 04/10/17 16 :40 Chloride IVPB 100 mls/hr Q24H ODETTE Administration Protocol Norepinephrine Bitartrate 4 mg 254 mls @ 9.52 mls/hr 04/10/17 17:15 04/10/17 18:47 / Dextrose IV 2.5 mcg/min .Q24H ODETTE 9.52 mls/hr Protocol Administration 2.5 MCG/MIN Dobutamine HCl/Dextrose 500 mg in 250 mls @ 5.205 mls/hr 04/10/17 17:15 04/11 05:17 Dobutamine/Dextrose 5% 500mg/250ml IV 2.5 mcg/kg/min .Q24H ODETTE 5.205 mls/hr Protocol Administration 2.5 MCG/KG/MIN Norepinephrine Bitartrate 4 mg 254 mls @ 28.57 mls/hr 04/11/17 03:45 04:28 / Dextrose IV 04/12/17 03:45 7.5 mcg/min .[id number] ODETTE 28.57 mls/hr Protocol Administration 7.5 MCG/MIN Potassium Chloride 10 meq/ 55 mls @ 50 mls/hr 04/11/17 10:00 Sodium Chloride IV 04/11/17 12:59 Q1 ODETTE Magnesium Sulfate/Dextrose 1 gm in 100 mls @ 100 mls/hr 04/11/17 09:35 Magnesium Sulfate 1 Gm/100 Ml D5w IVPB 04/11/17 10:34 ONCE ONE 1 GM/HR Pantoprazole Sodium 40 mg 04/04/17 18:00 04/10/17 18:49 Protonix Inj IVP 40 mg Q12H ODETTE Administration - Patient Studies Lab Studies: Microbiology Studies 04/07/17 04:20 S.aureus & Coag-Neg Staph PNA FISH - Final Blood Blood Culture - Final Enterococcus Faecalis Gram Stain - Final Lab Studies 04/11/17 04/11/1717 Range/Units 05:19 04:20 04:20 WBC 2.5 L D (4.8-10.8) K/uL RBC 2.71 L (3.80-5.20) Mil/uL Hgb 7.3 L (12.0-16.0) g/dL Hct 22.6 L (34.0-47.0) % MCV 83.3 (81.0-99.0) fl MCH 26.8 L (27.0-31.0) pg MCHC 32.1 L (33.0-37.0) g/dL RDW 17.0 H (11.5-14.5) % Plt Count 25 L* D (130-400) K/uL MPV 10.3 (7.2-11.7) fl Neut % (Auto) 83.2 H (50.0-75.0) % Lymph % (Auto) 15.5 L (20.0-40.0) % [place] % (Auto) 1.1 (0.0-10.0) % Eos % (Auto) 0.1 (0.0-4.0) % Baso % (Auto) 0.1 (0.0-2.0) % Neut # 2.1 (1.8-7.0) K/uL Lymph # 0.4 L (1.0-4.3) K/uL [place] # 0.0 (0.0-0.8) K/uL Eos # 0.0 (0.0-0.7) K/uL Baso # 0.0 (0.0-0.2) K/uL pCO2 34 L (35-45) mm/Hg pO2 108 H (80-100) mm/Hg HCO3 21.2 (21-28) mmol/L ABG pH 7.37 (7.35-7.45) ABG Total CO2 20.7 L (22-28) mmol/L ABG O2 Saturation 99.5 H (95-98) % ABG Base Excess -4.8 L (-2.0-3.0) mmol/L Domingo Test Yes ABG Potassium 2.6 L (3.6-5.2) mmol/L A-a O2 Difference 206.0 mm/Hg Glucose 172 H (65-105) mg/dL Lactate 2.2 H (0.7-2.1) mmol/L Vent Mode Prvc/ac Mechanical Rate 14 FiO2 50.0 % Tidal Volume 450 PEEP 5 Crit Value Called To aurea Cartagena rn Crit Value Called By Bethanie oseguera Crit Value Read Back Y Blood Gas Notified Time 525 Sodium 126.0 L 130 L (132-148) mmol/l Potassium 2.7 L (3.6-5.0) MMOL/L Chloride 99.0 98 (98-107) mmol/L Carbon Dioxide 21 L (22-30) mmol/L Anion Gap 14 (10-20) BUN 25 H (7-17) mg/dl Creatinine 1.7 H (0.7-1.2) mg/dL Est GFR ( Amer) 38 Est GFR (Non-Af Amer) 32 Random Glucose 140 H (65-105) mg/dL Calcium 4.2 L* D (8.4-10.2) mg/dL Phosphorus (2.5-4.5) mg/dl Magnesium (1.6-2.3) MG/DL Total Bilirubin 1.8 H (0.2-1.3) mg/dl AST 59 H D (14-36) U/L ALT 52 D (9-52) U/L Alkaline Phosphatase 260 H (38-126) U/L Total Protein 4.7 L (6.3-8.2) G/DL Albumin 2.3 L (3.5-5.0) g/dL Globulin 2.4 (2.2-3.9) gm/dL Albumin/Globulin Ratio 1.0 (1.0-2.1) Procalcitonin (0.19-0.49) NG/ML Arterial Blood Potassium 2.6 L (3.6-5.2) mmol/L Random Vancomycin ug/mL 04/10/17 04/10/17 04/09/17 Range/Units 15:30 09:30 13:00 WBC (4.8-10.8) K/uL RBC (3.80-5.20) Mil/uL Hgb (12.0-16.0) g/dL Hct (34.0-47.0) % MCV (81.0-99.0) fl MCH (27.0-31.0) pg MCHC (33.0-37.0) g/dL RDW (11.5-14.5) % Plt Count (130-400) K/uL MPV (7.2-11.7) fl Neut % (Auto) (50.0-75.0) % Lymph % (Auto) (20.0-40.0) % [place] % (Auto) (0.0-10.0) % Eos % (Auto) (0.0-4.0) % Baso % (Auto) (0.0-2.0) % Neut # (1.8-7.0) K/uL Lymph # (1.0-4.3) K/uL [place] # (0.0-0.8) K/uL Eos # (0.0-0.7) K/uL Baso # (0.0-0.2) K/uL pCO2 (35-45) mm/Hg pO2 (80-100) mm/Hg HCO3 (21-28) mmol/L ABG pH (7.35-7.45) ABG Total CO2 (22-28) mmol/L ABG O2 Saturation (95-98) % ABG Base Excess (-2.0-3.0) mmol/L Domingo Test ABG Potassium (3.6-5.2) mmol/L A-a O2 Difference mm/Hg Glucose (65-105) mg/dL Lactate (0.7-2.1) mmol/L Vent Mode Mechanical Rate FiO2 % Tidal Volume PEEP Crit Value Called To Crit Value Called By Crit Value Read Back Blood Gas Notified Time Sodium (132-148) mmol/l Potassium (3.6-5.0) MMOL/L Chloride (98-107) mmol/L Carbon Dioxide (22-30) mmol/L Anion Gap (10-20) BUN (7-17) mg/dl Creatinine (0.7-1.2) mg/dL Est GFR ( Amer) Est GFR (Non-Af Amer) Random Glucose (65-105) mg/dL Calcium (8.4-10.2) mg/dL Phosphorus 1.1 L (2.5-4.5) mg/dl Magnesium 1.3 L (1.6-2.3) MG/DL Total Bilirubin (0.2-1.3) mg/dl AST (14-36) U/L ALT (9-52) U/L Alkaline Phosphatase (38-126) U/L Total Protein (6.3-8.2) G/DL Albumin (3.5-5.0) g/dL Globulin (2.2-3.9) gm/dL Albumin/Globulin Ratio (1.0-2.1) Procalcitonin 23.09 H (0.19-0.49) NG/ML Arterial Blood Potassium (3.6-5.2) mmol/L Random Vancomycin 16.1 ug/mL Laboratory Results - last 24 hr 04/09/17 04/10/17 04/10/17 13:00 09:30 15:30 WBC RBC Hgb Hct MCV MCH MCHC RDW Plt Count MPV Neut % (Auto) Lymph % (Auto) [place] % (Auto) Eos % (Auto) Baso % (Auto) Neut # Lymph # [place] # Eos # Baso # pCO2 pO2 HCO3 ABG pH ABG Total CO2 ABG O2 Saturation ABG Base Excess [place]ingo Test ABG Potassium A-a O2 Difference Glucose Lactate Vent Mode Mechanical Rate FiO2 Tidal Volume PEEP Crit Value Called To Crit Value Called By Crit Value Read Back Blood Gas Notified Time Sodium Potassium Chloride Carbon Dioxide Anion Gap BUN Creatinine Est GFR ( Amer) Est GFR (Non-Af Amer) Random Glucose Calcium Phosphorus 1.1 L Magnesium 1.3 L Total Bilirubin AST ALT Alkaline Phosphatase Total Protein Albumin Globulin Albumin/Globulin Ratio Procalcitonin 23.09 H Arterial Blood Potassium Random Vancomycin 16.1 04/11/17 04/11/17 04/11/17 04:20 04:20 05:19 WBC 2.5 L D RBC 2.71 L Hgb 7.3 L Hct 22.6 L MCV 83.3 MCH 26.8 L MCHC 32.1 L RDW 17.0 H Plt Count 25 L* D MPV 10.3 Neut % (Auto) 83.2 H Lymph % (Auto) 15.5 L [place] % (Auto) 1.1 Eos % (Auto) 0.1 Baso % (Auto) 0.1 Neut # 2.1 Lymph # 0.4 L [place] # 0.0 Eos # 0.0 Baso # 0.0 pCO2 34 L pO2 108 H HCO3 21.2 ABG pH 7.37 ABG Total CO2 20.7 L ABG O2 Saturation 99.5 H ABG Base Excess -4.8 L [place]ingo Test Yes ABG Potassium 2.6 L A-a O2 Difference 206.0 Glucose 172 H Lactate 2.2 H Vent Mode Prvc/ac Mechanical Rate 14 FiO2 50.0 Tidal Volume 450 PEEP 5 Crit Value Called To aurea Cartagena rn Crit Value Called By Bethanie oseguera Crit Value Read Back Y Blood Gas Notified Time 525 Sodium 130 L 126.0 L Potassium 2.7 L Chloride 98 99.0 Carbon Dioxide 21 L Anion Gap 14 BUN 25 H Creatinine 1.7 H Est GFR ( Amer) 38 Est GFR (Non-Af Amer) 32 Random Glucose 140 H Calcium 4.2 L* D Phosphorus Magnesium Total Bilirubin 1.8 H AST 59 H D ALT 52 D Alkaline Phosphatase 260 H Total Protein 4.7 L Albumin 2.3 L Globulin 2.4 Albumin/Globulin Ratio 1.0 Procalcitonin Arterial Blood Potassium 2.6 L Random Vancomycin Fingerstick Blood Sugar Results: 221 Review of Systems - Review of Systems Systems not reviewed;Unavailable: Intubated Critical Care Progress Note - Ventilator Checklist Head of Bed 30 Degrees: Yes Daily Sedation Vacation: Yes Daily Assessment of Readiness to Wean: Yes Daily Spontaneous Breathing Trial: Yes PUD Prophalyxis: Yes DVT Prophylaxis: Yes Oral Care with Chlorhexidine Gluconate {CHG}: Yes - Extremities/Vascular Does the Patient have a Central Venous Catheter?: Yes Does the Patient need a Central Venous Catheter?: Yes Does the Patient have a Overton Catheter?: Yes Does the Patient need a Overton Catheter?: Yes Assessment/Plan (1) Acute respiratory failure with hypoxia Current Visit: Yes Status: Acute Comment: 51 Years old female with Acute Hypoxemic Respiratory Failure Continue Antibiotics WITH Vaco, Tobramycin Sulfate and Meropenem 500 mg IVPB Q12 Continue current ICU mangements Strict I&Os (2) Septic shock Current Visit: Yes Status: Acute Comment: IV Vanco, Tobramycin and Meropenem CT scan Abdomin to evaluate for source of infection Optimize blood pressure, hemodynamic monitoring and maintain end-organ perfusion Continue levophed/Vaso for BP support, wean as tolerated Continue Dobutamine, follow up sVo2 (3) Acute renal injury due to circulatory failure Current Visit: Yes Status: Acute Comment: Acute kidney injury likely multifactorial due to circulatory failure and septic shock Optimize blood pressure, hemodynamic monitoring and maintain end-organ perfusion Maintian MAP 65-75 (4) Altered mental status Current Visit: Yes Status: Acute Priority: High (5) Anemia Current Visit: Yes Status: Acute Priority: High (6) Metabolic acidosis Current Visit: Yes Status: Acute Comment: Toxic/metabolic acidosis (7) Pneumonia Current Visit: Yes Status: Acute (8) Thrombocytopenia Current Visit: Yes Status: Acute Priority: High Comment: No evidance of active bleeding
--- NOTE | 2017-04-11 09:41 | CP.PCM.PN ---
Subjective - Date & Time of Evaluation Date of Evaluation: 04/11/17 Time of Evaluation: 09:37 - Subjective Subjective: Patient remained comatose and intensive care unit. Intubated. Urine output noted to be poor. Lab reviewed Objective - Vital Signs/Intake and Output Vital Signs (last 24 hours): Temp Pulse Resp BP Pulse Ox 100.0 F H 88 18 101/57 L 98 04/11/17 08:00 04/11/17 08:55 04/11/17 08:55 04/11/17 08:55 04/11/17 08:55 Intake and Output: 04/11/17 04/11/17 06:59 18:59 Intake Total 592 Output Total 250 Balance 342 - Medications Medications: Current Medications Acetaminophen (Tylenol 650 Mg Supp) 650 mg [place] Q4 PRN PRN Reason: Temp >101 Last Admin: 04/06/17 16:15 Dose: 650 mg Acetaminophen (Tylenol 650mg/20.3ml Solution Ud) 650 mg PO Q4 PRN PRN Reason: Temperature Last Admin: 04/08/17 04:15 Dose: 650 mg Albuterol/Ipratropium (Duoneb 3 Mg/0.5 Mg (3 Ml) Ud) 3 ml INH RQ4 PRN PRN Reason: Shortness of Breath Last Admin: 04/04/17 19:23 Dose: 3 ml Ascorbic Acid (Vitamin C 500 Mg Tab) 1,500 mg PO Q6H ODETTE Stop: 04/12/17 22:01 Last Admin: 04/11/17 03:19 Dose: 1,500 mg Hydrocortisone Sodium Succinate (Solu-Cortef) 50 mg IV Q6H ODETTE Last Admin: 04/11/17 03:19 Dose: 50 mg Vasopressin 100 units/ Sodium (Chloride) 105 mls @ 1.89 mls/hr IV .Q24H ODETTE; 0.03 UNITS/MIN PRN Reason: Protocol Last Admin: 04/10/17 18:50 Dose: 0.03 units/min, 1.89 mls/hr Phenylephrine HCl 20 mg/ (Sodium Chloride) 252 mls @ 15.12 mls/hr IV .[id number] ODETTE; 20 MCG/MIN PRN Reason: Protocol Last Titration: 04/08/17 13:00 Dose: 0 mcg/min, 0 mls/hr Meropenem 500 mg/ Sodium (Chloride) 100 mls @ 100 mls/hr IVPB Q12 ODETTE PRN Reason: Protocol Last Admin: 04/10/17 21:12 Dose: 100 mls/hr Thiamine HCl 200 mg/ Sodium (Chloride) 102 mls @ 204 mls/hr IV Q12H ODETTE Last Admin: 04/11/17 03:20 Dose: 204 mls/hr Tobramycin Sulfate 80 mg/ (Sodium Chloride) 102 mls @ 100 mls/hr IV Q24H ODETTE Last Admin: 04/10/17 19:33 Dose: Not Given Vancomycin HCl 500 mg/ Sodium (Chloride) 100 mls @ 100 mls/hr IVPB Q24H ODETTE PRN Reason: Protocol Last Admin: 04/10/17 16:40 Dose: 100 mls/hr Norepinephrine Bitartrate 4 mg (/ Dextrose) 254 mls @ 9.52 mls/hr IV .Q24H ODETTE ; 2.5 MCG/MIN PRN Reason: Protocol Last Admin: 04/10/17 18:47 Dose: 2.5 mcg/min, 9.52 mls/hr Dobutamine HCl/Dextrose (Dobutamine/Dextrose 5% 500mg/250ml) 500 mg in 250 mls @ 5.205 mls/hr IV .Q24H ODETTE; 2.5 MCG/KG/MIN PRN Reason: Protocol Last Admin: 04/11/17 05:17 Dose: 2.5 mcg/kg/min, 5.205 mls/hr Norepinephrine Bitartrate 4 mg (/ Dextrose) 254 mls @ 28.57 mls/hr IV .Q8H54M ODETTE; 7.5 MCG/MIN PRN Reason: Protocol Stop: 04/12/17 03:45 Last Admin: 04/11/17 04:28 Dose: 7.5 mcg/min, 28.57 mls/hr Potassium Chloride 10 meq/ (Sodium Chloride) 55 mls @ 50 mls/hr IV Q1 ODETTE Stop: 04/11/17 12:59 Magnesium Sulfate/Dextrose (Magnesium Sulfate 1 Gm/100 Ml D5w) 1 gm in 100 mls @ 100 mls/hr IVPB ONCE ONE PRN Reason: 1 GM/HR Stop: 04/11/17 10:34 Pantoprazole Sodium (Protonix Inj) 40 mg IVP Q12H ODETTE Last Admin: 04/10/17 18:49 Dose: 40 mg - Labs Labs: 04/11/17 04:20 04/11/17 04:20 PT 36.0 Seconds (9.8-13.1) H D 04/08/17 05:30 INR 3.1 (0.9-1.2) H D 04/08/17 05:30 APTT 47.0 Seconds (25.6-37.1) H 04/08/17 05:30 - Constitutional Appears: In Acute Distress - ENT Exam ENT Exam: Mucous Membranes Moist - Respiratory Exam Respiratory Exam: Rhonchi. absent: Chest Wall Tenderness - Cardiovascular Exam Cardiovascular Exam: absent: JVD, Rubs - GI/Abdominal Exam GI & Abdominal Exam: Soft - Extremities Exam Extremities Exam: absent: Calf Tenderness - Back Exam Back Exam: absent: CVA tenderness (L), CVA tenderness (R) - Neurological Exam Neurological Exam: Altered Assessment and Plan (1) Acute renal injury due to circulatory failure Assessment & Plan: Acute kidney injury related to multifactorial between sepsis and septic shock. Hypotensive patient remain on multiple vasopressors. Hypokalemia to give stat potassium chloride 3 runs 10 mEq each now. Hypomagnesemia to give extra 1 g of magnesium and to check magnesium level thereafter. Severe anemia I suggested to give blood transfusion. Septic shock patient receiving antibiotics as per ID. Patient is edematous by receiving a lot of fluids related to vasopressors antibiotics etc. Patient is going for CT scan with IV contrast we will pursue hemodialysis to follow to try to remove some fluid. Prognosis remained critical. Status: Acute (2) Altered mental status Status: Acute (3) GI bleed Status: Acute (4) Hypotension Status: Deleted
--- NOTE | 2017-04-11 10:17 | RAD ---
PROCEDURE: CHEST RADIOGRAPH, 1 VIEW HISTORY: pt intubated COMPARISON: Portable chest 04/10/2017 6:09 a.m.. FINDINGS: Endotracheal tube is unchanged in position with nasogastric tube now identified advanced into the left upper quadrant abdomen. Right central venous dialysis catheter unchanged in position grossly. LUNGS: Images captured and late expiratory phase with improvement in limited bilateral basilar atelectasis or infiltrates noted. PLEURA: No pneumothorax or pleural fluid seen. CARDIOVASCULAR: Cardiac silhouette appears stable. Pulmonary venous congestive pattern persists, not likely changed in the interval. OSSEOUS STRUCTURES: No significant abnormalities. VISUALIZED UPPER ABDOMEN: Normal. OTHER FINDINGS: None. IMPRESSION: Stable pulmonary venous congestion however and diminishing bilateral basilar atelectasis or infiltrates is noted. Continued clinical right after monitor advised.
--- NOTE | 2017-04-11 10:18 | CP.PCM.PN ---
Subjective - Date & Time of Evaluation Date of Evaluation: 04/11/17 Time of Evaluation: 10:10 - Subjective Subjective: I D NOTE STILL ON MULTIPLE PRESSORS RENAL LABS WORSENING TODAY CREATININE:1.7,GFR:32, VANCOMYCIN TROUGH 16.1 ,HAVE ADJUSTED DOSE TO 250MG Q 24H,ALSO ADJUSTED TODAY SCHEDULED FOR CT SCAN REPEAT BLOOD CULTURES HAVE BEEN ORDERED Objective - Vital Signs/Intake and Output Vital Signs (last 24 hours): Temp Pulse Resp BP Pulse Ox 100.0 F H 91 H 17 98/51 L 100 04/11/17 08:00 04/11/17 09:56 04/11/17 09:56 04/11/17 09:56 04/11/17 09:56 Intake and Output: 04/11/17 04/11/17 06:59 18:59 Intake Total 592 1090 Output Total 250 Balance 342 1090 - Medications Medications: Current Medications Acetaminophen (Tylenol 650 Mg Supp) 650 mg NC Q4 PRN PRN Reason: Temp >101 Last Admin: 04/06/17 16:15 Dose: 650 mg Acetaminophen (Tylenol 650mg/20.3ml Solution Ud) 650 mg PO Q4 PRN PRN Reason: Temperature Last Admin: 04/08/17 04:15 Dose: 650 mg Albuterol/Ipratropium (Duoneb 3 Mg/0.5 Mg (3 Ml) Ud) 3 ml INH RQ4 PRN PRN Reason: Shortness of Breath Last Admin: 04/04/17 19:23 Dose: 3 ml Ascorbic Acid (Vitamin C 500 Mg Tab) 1,500 mg PO Q6H ODETTE Stop: 04/12/17 22:01 Last Admin: 04/11/17 09:46 Dose: 1,500 mg Hydrocortisone Sodium Succinate (Solu-Cortef) 50 mg IV Q6H ODETTE Last Admin: 04/11/17 09:45 Dose: 50 mg Vasopressin 100 units/ Sodium (Chloride) 105 mls @ 1.89 mls/hr IV .Q24H ODETTE; 0.03 UNITS/MIN PRN Reason: Protocol Last Admin: 04/10/17 18:50 Dose: 0.03 units/min, 1.89 mls/hr Phenylephrine HCl 20 mg/ (Sodium Chloride) 252 mls @ 15.12 mls/hr IV .[id number] ODETTE; 20 MCG/MIN PRN Reason: Protocol Last Titration: 04/08/17 13:00 Dose: 0 mcg/min, 0 mls/hr Meropenem 500 mg/ Sodium (Chloride) 100 mls @ 100 mls/hr IVPB Q12 ODETTE PRN Reason: Protocol Last Admin: 04/11/17 09:36 Dose: 100 mls/hr Thiamine HCl 200 mg/ Sodium (Chloride) 102 mls @ 204 mls/hr IV Q12H ODETTE Last Admin: 04/11/17 03:20 Dose: 204 mls/hr Norepinephrine Bitartrate 4 mg (/ Dextrose) 254 mls @ 9.52 mls/hr IV .Q24H ODETTE ; 2.5 MCG/MIN PRN Reason: Protocol Last Admin: 04/10/17 18:47 Dose: 2.5 mcg/min, 9.52 mls/hr Dobutamine HCl/Dextrose (Dobutamine/Dextrose 5% 500mg/250ml) 500 mg in 250 mls @ 5.205 mls/hr IV .Q24H ODETTE; 2.5 MCG/KG/MIN PRN Reason: Protocol Last Admin: 04/11/17 05:17 Dose: 2.5 mcg/kg/min, 5.205 mls/hr Norepinephrine Bitartrate 4 mg (/ Dextrose) 254 mls @ 28.57 mls/hr IV .Q8H54M ODETTE; 7.5 MCG/MIN PRN Reason: Protocol Stop: 04/12/17 03:45 Last Admin: 04/11/17 04:28 Dose: 7.5 mcg/min, 28.57 mls/hr Potassium Chloride 10 meq/ (Sodium Chloride) 55 mls @ 50 mls/hr IV Q1 ODETTE Stop: 04/11/17 12:59 Last Admin: 04/11/17 09:44 Dose: 50 mls/hr Magnesium Sulfate/Dextrose (Magnesium Sulfate 1 Gm/100 Ml D5w) 1 gm in 100 mls @ 100 mls/hr IVPB ONCE ONE PRN Reason: 1 GM/HR Stop: 04/11/17 10:34 Vancomycin HCl 250 mg/ Sodium (Chloride) 100 mls @ 100 mls/hr IVPB Q24H ODETTE PRN Reason: Protocol Tobramycin Sulfate 60 mg/ (Sodium Chloride) 101.5 mls @ 100 mls/hr IV Q24H ODETTE Pantoprazole Sodium (Protonix Inj) 40 mg IVP Q12H ODETTE Last Admin: 04/10/17 18:49 Dose: 40 mg - Labs Labs: 04/11/17 04:20 04/11/17 04:20 PT 36.0 Seconds (9.8-13.1) H D 04/08/17 05:30 INR 3.1 (0.9-1.2) H D 04/08/17 05:30 APTT 47.0 Seconds (25.6-37.1) H 04/08/17 05:30
[2017-04-11] MEDS: Vancomycin 250 MG in Sodium Chloride 0.9% 100 ML IVPB SCH (12:47)
[2017-04-11] MEDS ORDERED: Iohexol 300 100 ML IJ ONE (13:41)
[2017-04-11] MEDS ORDERED: Sodium Chloride 0.9% 50 ML IV ONE (13:42)
--- NOTE | 2017-04-11 15:32 | CP.PCM.PN ---
Subjective - Date & Time of Evaluation Date of Evaluation: 04/11/17 - Subjective Subjective: F/U Respiratory Failure. Pt with eyes open, no response to verbal stimuli. Objective - Vital Signs/Intake and Output Vital Signs (last 24 hours): Temp Pulse Resp BP Pulse Ox 100.3 F H 91 H 19 101/57 L 100 04/11/17 12:00 04/11/17 12:00 04/11/17 12:00 04/11/17 12:00 04/11/17 12:00 Intake and Output: 04/11/17 04/11/17 06:59 18:59 Intake Total 592 1594 Output Total 250 Balance 342 1594 - Medications Medications: Current Medications Acetaminophen (Tylenol 650 Mg Supp) 650 mg MO Q4 PRN PRN Reason: Temp >101 Last Admin: 04/06/17 16:15 Dose: 650 mg Acetaminophen (Tylenol 650mg/20.3ml Solution Ud) 650 mg PO Q4 PRN PRN Reason: Temperature Last Admin: 04/08/17 04:15 Dose: 650 mg Albuterol/Ipratropium (Duoneb 3 Mg/0.5 Mg (3 Ml) Ud) 3 ml INH RQ4 PRN PRN Reason: Shortness of Breath Last Admin: 04/04/17 19:23 Dose: 3 ml Ascorbic Acid (Vitamin C 500 Mg Tab) 1,500 mg PO Q6H ODETTE Stop: 04/12/17 22:01 Last Admin: 04/11/17 09:46 Dose: 1,500 mg Hydrocortisone Sodium Succinate (Solu-Cortef) 50 mg IV Q6H ODETTE Last Admin: 04/11/17 09:45 Dose: 50 mg Vasopressin 100 units/ Sodium (Chloride) 105 mls @ 1.89 mls/hr IV .Q24H ODETTE; 0.03 UNITS/MIN PRN Reason: Protocol Last Admin: 04/10/17 18:50 Dose: 0.03 units/min, 1.89 mls/hr Phenylephrine HCl 20 mg/ (Sodium Chloride) 252 mls @ 15.12 mls/hr IV .[id number] ODETTE; 20 MCG/MIN PRN Reason: Protocol Last Titration: 04/08/17 13:00 Dose: 0 mcg/min, 0 mls/hr Meropenem 500 mg/ Sodium (Chloride) 100 mls @ 100 mls/hr IVPB Q12 ODETTE PRN Reason: Protocol Last Admin: 04/11/17 09:36 Dose: 100 mls/hr Thiamine HCl 200 mg/ Sodium (Chloride) 102 mls @ 204 mls/hr IV Q12H ODETTE Last Admin: 04/11/17 03:20 Dose: 204 mls/hr Norepinephrine Bitartrate 4 mg (/ Dextrose) 254 mls @ 9.52 mls/hr IV .Q24H ODETTE ; 2.5 MCG/MIN PRN Reason: Protocol Last Admin: 04/10/17 18:47 Dose: 2.5 mcg/min, 9.52 mls/hr Dobutamine HCl/Dextrose (Dobutamine/Dextrose 5% 500mg/250ml) 500 mg in 250 mls @ 5.205 mls/hr IV .Q24H ODETTE; 2.5 MCG/KG/MIN PRN Reason: Protocol Last Admin: 04/11/17 05:17 Dose: 2.5 mcg/kg/min, 5.205 mls/hr Norepinephrine Bitartrate 4 mg (/ Dextrose) 254 mls @ 28.57 mls/hr IV .Q8H54M ODETTE; 7.5 MCG/MIN PRN Reason: Protocol Stop: 04/12/17 03:45 Last Admin: 04/11/17 12:45 Dose: 7.5 mcg/min, 28.57 mls/hr Vancomycin HCl 250 mg/ Sodium (Chloride) 100 mls @ 100 mls/hr IVPB Q24H ODETTE PRN Reason: Protocol Last Admin: 04/11/17 12:47 Dose: 100 mls/hr Tobramycin Sulfate 60 mg/ (Sodium Chloride) 101.5 mls @ 100 mls/hr IV Q24H ODETTE Pantoprazole Sodium (Protonix Inj) 40 mg IVP Q12H ODETTE Last Admin: 04/10/17 18:49 Dose: 40 mg - Labs Labs: 04/11/17 04:20 04/11/17 04:20 PT 36.0 Seconds (9.8-13.1) H D 04/08/17 05:30 INR 3.1 (0.9-1.2) H D 04/08/17 05:30 APTT 47.0 Seconds (25.6-37.1) H 04/08/17 05:30 - Constitutional Appears: Chronically Ill - Head Exam Head Exam: NORMAL INSPECTION - Eye Exam Eye Exam: PERRL - ENT Exam Additional comments: Intubated - Neck Exam Neck Exam: Normal Inspection - Respiratory Exam Respiratory Exam: Decreased Breath Sounds (at bases), Rhonchi - Cardiovascular Exam Cardiovascular Exam: REGULAR RHYTHM - GI/Abdominal Exam GI & Abdominal Exam: Soft, Normal Bowel Sounds Additional comments: surgical wound open mid lower abdomen yellow sloughy base - Extremities Exam Extremities Exam: Pedal Edema Additional comments: L heal DTI, R lateral ankle DTI. - Back Exam Additional comments: MSAD sacral and buttock - Neurological Exam Additional comments: Intubated, unresponsive, comatose. - Psychiatric Exam Psychiatric exam: Flat Affect - Skin Skin Exam: Warm Assessment and Plan (1) Acute respiratory failure Status: Acute (2) Shock Status: Deleted (3) Pneumonia Status: Acute (4) Acute renal failure (ARF) Status: Acute (5) Anemia Status: Acute (6) Hematuria, gross Status: Deleted (7) Thrombocytopenia Status: Resolved (8) History of pulmonary embolus (PE) Status: Acute - Assessment and Plan (Free Text) Plan: Continue ventilatory support, to have CT of Abd/Pelv to evaluate for infection. HD today ICU Time: 40 min.
--- NOTE | 2017-04-11 16:24 | CP.PCM.PN ---
Subjective - Date & Time of Evaluation Date of Evaluation: 04/11/17 Objective - Vital Signs/Intake and Output Vital Signs (last 24 hours): Temp Pulse Resp BP Pulse Ox 100.3 F H 91 H 19 101/57 L 100 04/11/17 12:00 04/11/17 12:00 04/11/17 12:00 04/11/17 12:00 04/11/17 12:00 Intake and Output: 04/11/17 04/11/17 06:59 18:59 Intake Total 592 1594 Output Total 250 Balance 342 1594 - Medications Medications: Current Medications Acetaminophen (Tylenol 650 Mg Supp) 650 mg [place] Q4 PRN PRN Reason: Temp >101 Last Admin: 04/06/17 16:15 Dose: 650 mg Acetaminophen (Tylenol 650mg/20.3ml Solution Ud) 650 mg PO Q4 PRN PRN Reason: Temperature Last Admin: 04/08/17 04:15 Dose: 650 mg Albuterol/Ipratropium (Duoneb 3 Mg/0.5 Mg (3 Ml) Ud) 3 ml INH RQ4 PRN PRN Reason: Shortness of Breath Last Admin: 04/04/17 19:23 Dose: 3 ml Ascorbic Acid (Vitamin C 500 Mg Tab) 1,500 mg PO Q6H ODETTE Stop: 04/12/17 22:01 Last Admin: 04/11/17 09:46 Dose: 1,500 mg Hydrocortisone Sodium Succinate (Solu-Cortef) 50 mg IV Q6H ODETTE Last Admin: 04/11/17 09:45 Dose: 50 mg Vasopressin 100 units/ Sodium (Chloride) 105 mls @ 1.89 mls/hr IV .Q24H ODETTE; 0.03 UNITS/MIN PRN Reason: Protocol Last Admin: 04/10/17 18:50 Dose: 0.03 units/min, 1.89 mls/hr Phenylephrine HCl 20 mg/ (Sodium Chloride) 252 mls @ 15.12 mls/hr IV .[id number] ODETTE; 20 MCG/MIN PRN Reason: Protocol Last Titration: 04/08/17 13:00 Dose: 0 mcg/min, 0 mls/hr Meropenem 500 mg/ Sodium (Chloride) 100 mls @ 100 mls/hr IVPB Q12 ODETTE PRN Reason: Protocol Last Admin: 04/11/17 09:36 Dose: 100 mls/hr Thiamine HCl 200 mg/ Sodium (Chloride) 102 mls @ 204 mls/hr IV Q12H ODETTE Last Admin: 04/11/17 03:20 Dose: 204 mls/hr Norepinephrine Bitartrate 4 mg (/ Dextrose) 254 mls @ 9.52 mls/hr IV .Q24H ODETTE ; 2.5 MCG/MIN PRN Reason: Protocol Last Admin: 04/10/17 18:47 Dose: 2.5 mcg/min, 9.52 mls/hr Dobutamine HCl/Dextrose (Dobutamine/Dextrose 5% 500mg/250ml) 500 mg in 250 mls @ 5.205 mls/hr IV .Q24H ODETTE; 2.5 MCG/KG/MIN PRN Reason: Protocol Last Admin: 04/11/17 05:17 Dose: 2.5 mcg/kg/min, 5.205 mls/hr Norepinephrine Bitartrate 4 mg (/ Dextrose) 254 mls @ 28.57 mls/hr IV .Q8H54M ODETTE; 7.5 MCG/MIN PRN Reason: Protocol Stop: 04/12/17 03:45 Last Admin: 04/11/17 12:45 Dose: 7.5 mcg/min, 28.57 mls/hr Vancomycin HCl 250 mg/ Sodium (Chloride) 100 mls @ 100 mls/hr IVPB Q24H ODETTE PRN Reason: Protocol Last Admin: 04/11/17 12:47 Dose: 100 mls/hr Tobramycin Sulfate 60 mg/ (Sodium Chloride) 101.5 mls @ 100 mls/hr IV Q24H ODETTE Pantoprazole Sodium (Protonix Inj) 40 mg IVP Q12H ODETTE Last Admin: 04/10/17 18:49 Dose: 40 mg - Labs Labs: 04/11/17 04:20 04/11/17 04:20 PT 36.0 Seconds (9.8-13.1) H D 04/08/17 05:30 INR 3.1 (0.9-1.2) H D 04/08/17 05:30 APTT 47.0 Seconds (25.6-37.1) H 04/08/17 05:30 Assessment and Plan (1) Acute respiratory failure Status: Acute (2) Shock Status: Acute (3) Pneumonia Status: Acute (4) Acute renal failure (ARF) Status: Acute (5) Anemia Status: Acute (6) Hematuria, gross Status: Acute (7) Thrombocytopenia Status: Acute (8) History of pulmonary embolus (PE) Status: Acute
--- NOTE | 2017-04-11 16:37 | CT ---
PROCEDURE: CT Abdomen and Pelvis with contrast HISTORY: abd pain, fever, purulent drainage COMPARISON: 04/04/2017 noncontrast abdomen & pelvis CT TECHNIQUE: Contrast dose: Omnipaque 300, 95 cc. Radiation dose: Total exam DLP = 1150.00 mGy-cm. This CT exam was performed using one or more of the following dose reduction techniques: Automated exposure control, adjustment of the mA and/or kV according to patient size, and/or use of iterative reconstruction technique. FINDINGS: LOWER THORAX: Dense atelectasis in the right lower lobe potentially reflecting even postobstructive rather than dependent atelectasis given its marked density and asymmetric appearance. A minimal left pleural effusion is identified. Cardiac size appears normal. No pericardial effusion. Tip of right central venous dialysis catheter identified in the cavoatrial junction. History is tube also identified in position terminating at the gastric antrum. LIVER: Marked diffuse fatty infiltration of liver is reiterated. No definite hepatic mass identified nevertheless. GALLBLADDER AND BILE DUCTS: Prior cholecystectomy. PANCREAS: Unremarkable. No gross lesion or ductal dilatation. SPLEEN: Unremarkable. ADRENALS: Unremarkable. No mass. KIDNEYS AND URETERS: An irregular enhancement pattern seen throughout the right kidney suspicious for pyelonephritis. Similar minimal changes are not excluded involving the left kidney. No definite obstructive uropathy bilaterally. VASCULATURE: A vena cava filter is identified in position once again with the abdominal remain normal caliber. Right common femoral central venous line is noted terminating in the right external iliac vein. BOWEL: No bowel obstruction is identified however the chen of the colon appear diffusely thickened with associated pericolic reaction cyst suspicious for pancolitis. A pessary is suggested in the rectum. APPENDIX: Not identified. PERITONEUM: No free intraperitoneal abscess or definite ascites. LYMPH NODES: No prominent lymphadenopathy. BLADDER: Unremarkable. REPRODUCTIVE: Unremarkable. BONES: No acute fracture. OTHER FINDINGS: Mild anasarca in question. IMPRESSION: 1. Findings most compatible with alcala colitis. Please see discussion above. No abscess free air or ascites. 2. Irregular enhancement throughout the right greater than left kidney may indicate bilateral pyelonephritis. Further clinical correlation is advised. 3. Marked fatty infiltration of the liver. 4. Prior cholecystectomy again evident as well as inferior vena cava filter placement. 5. Additional findings as discussed above.
[2017-04-11] MEDS: Tobramycin inj 60 MG in Sodium Chloride 0.9% 100 ML IV SCH (17:30)
[2017-04-12] MEDS: Thiamine 200 MG in Sodium Chloride 0.9% 100 ML IV SCH ×2 (03:34→15:26)
[2017-04-12 06:01] LABS: HEMATOCRIT 24.4 % (34.0-47.0); MEAN CELL VOLUME 83.8 fl (81.0-99.0); MEAN CORPUSCULAR HEMOGLOBIN 27.1 pg (27.0-31.0); MEAN CORPUSCULAR HGB CONC 32.3 g/dL (33.0-37.0); RED CELL DISTRIBUTION WIDTH 17.3 % (11.5-14.5); WHITE BLOOD COUNT 5.9 K/uL (4.8-10.8)
[2017-04-12 06:03] LABS: ABG ALLEN TEST YES; ABG MECHANICAL RATE 14; ARTERIAL BLOOD GAS HCO3 24.3 mmol/L (21-28); ARTERIAL BLOOD GAS MODE A/C; ARTERIAL BLOOD GAS O2 CAPACITY 11.4 mL/dL (16-24); ARTERIAL BLOOD GAS O2 CONTENT 11.5 ML/dL (15-23); ARTERIAL BLOOD GAS PH 7.69 (7.35-7.45); ARTERIAL BLOOD GAS PO2 106 mm/Hg (80-100); ARTERIAL BLOOD HGB O2 SAT 97.9 % (95.0-98.0); ATERIAL BLOOD GAS PEEP 5; METHEMOGLOBIN 1.1 % (0.0-3.0)
[2017-04-12 06:03] LABS: BLOOD UREA NITROGEN 14 mg/dl (7-17); CARBON DIOXIDE 20 mmol/L (22-30); CHLORIDE 104 mmol/L (98-107); GFR AFRICAN-AMERICAN > 60; GLUCOSE,RANDOM 121 mg/dL (65-105); SODIUM 135 mmol/l (132-148)
[2017-04-12 06:17] LABS: CALCIUM 3.6 mg/dL (8.4-10.2); POTASSIUM 2.5 MMOL/L (3.6-5.0)
[2017-04-12] MEDS ORDERED: Potassium CL 10 MEQ/50 ML 50 ML IVPB SCH (07:00)
[2017-04-12] MEDS ORDERED: Potassium CL 10mEq/100ml 100 ML IVPB SCH (07:00)
[2017-04-12] MEDS: Acetaminophen 650mg/20.3ml solution UD PO PRN ×2 (08:32→15:27)
[2017-04-12] MEDS: Meropenem 500 MG in Sodium Chloride 0.9% 100 ML IVPB SCH ×2 (09:06→21:49)
--- NOTE | 2017-04-12 09:07 | CP.PCM.PN ---
Subjective - Date & Time of Evaluation Date of Evaluation: 04/12/17 Time of Evaluation: 09:04 - Subjective Subjective: Remained comatose. on vasopressors completed HD yesterday Objective - Vital Signs/Intake and Output Vital Signs (last 24 hours): Temp Pulse Resp BP Pulse Ox 102 F H 122 H 24 103/62 98 04/12/17 08:32 04/12/17 06:00 04/12/17 06:00 04/12/17 06:00 04/12/17 06:00 Intake and Output: 04/12/17 04/12/17 06:59 18:59 Intake Total 1009 Output Total 350 Balance 659 - Medications Medications: Current Medications Acetaminophen (Tylenol 650 Mg Supp) 650 mg ID Q4 PRN PRN Reason: Temp >101 Last Admin: 04/06/17 16:15 Dose: 650 mg Acetaminophen (Tylenol 650mg/20.3ml Solution Ud) 650 mg PO Q4 PRN PRN Reason: Temperature Last Admin: 04/12/17 08:32 Dose: 650 mg Albuterol/Ipratropium (Duoneb 3 Mg/0.5 Mg (3 Ml) Ud) 3 ml INH RQ4 PRN PRN Reason: Shortness of Breath Last Admin: 04/04/17 19:23 Dose: 3 ml Ascorbic Acid (Vitamin C 500 Mg Tab) 1,500 mg PO Q6H ODETTE Stop: 04/12/17 22:01 Last Admin: 04/12/17 03:15 Dose: 1,500 mg Hydrocortisone Sodium Succinate (Solu-Cortef) 50 mg IV Q6H ODETTE Last Admin: 04/12/17 03:14 Dose: 50 mg Vasopressin 100 units/ Sodium (Chloride) 105 mls @ 1.89 mls/hr IV .Q24H ODETTE; 0.03 UNITS/MIN PRN Reason: Protocol Last Admin: 04/10/17 18:50 Dose: 0.03 units/min, 1.89 mls/hr Phenylephrine HCl 20 mg/ (Sodium Chloride) 252 mls @ 15.12 mls/hr IV .[id number] ODETTE; 20 MCG/MIN PRN Reason: Protocol Last Titration: 04/08/17 13:00 Dose: 0 mcg/min, 0 mls/hr Meropenem 500 mg/ Sodium (Chloride) 100 mls @ 100 mls/hr IVPB Q12 ODETTE PRN Reason: Protocol Last Admin: 04/11/17 22:00 Dose: 100 mls/hr Thiamine HCl 200 mg/ Sodium (Chloride) 102 mls @ 204 mls/hr IV Q12H ODETTE Last Admin: 04/12/17 03:34 Dose: 204 mls/hr Dobutamine HCl/Dextrose (Dobutamine/Dextrose 5% 500mg/250ml) 500 mg in 250 mls @ 5.205 mls/hr IV .Q24H ODETTE; 2.5 MCG/KG/MIN PRN Reason: Protocol Last Admin: 04/11/17 05:17 Dose: 2.5 mcg/kg/min, 5.205 mls/hr Vancomycin HCl 250 mg/ Sodium (Chloride) 100 mls @ 100 mls/hr IVPB Q24H ODETTE PRN Reason: Protocol Last Admin: 04/11/17 12:47 Dose: 100 mls/hr Tobramycin Sulfate 60 mg/ (Sodium Chloride) 101.5 mls @ 100 mls/hr IV Q24H ODETTE Last Admin: 04/11/17 17:30 Dose: 100 mls/hr Potassium Chloride 10 meq/ (Sodium Chloride) 55 mls @ 55 mls/hr IV Q1 ODETTE Stop: 04/12/17 11:59 Last Admin: 04/12/17 09:01 Dose: 55 mls/hr Pantoprazole Sodium (Protonix Inj) 40 mg IVP Q12H ODETTE Last Admin: 04/12/17 05:32 Dose: 40 mg - Labs Labs: 04/12/17 04:20 04/12/17 04:20 PT 36.0 Seconds (9.8-13.1) H D 04/08/17 05:30 INR 3.1 (0.9-1.2) H D 04/08/17 05:30 APTT 47.0 Seconds (25.6-37.1) H 04/08/17 05:30 Assessment and Plan (1) Acute renal injury due to circulatory failure Assessment & Plan: MICHAEL completed HD yesterday after CT scan see eport IMPRESSION: 1. Findings most compatible with alcala colitis. Please see discussion above. No abscess free air or ascites. 2. Irregular enhancement throughout the right greater than left kidney may indicate bilateral pyelonephritis. Further clinical correlation is advised. 3. Marked fatty infiltration of the liver. 4. Prior cholecystectomy again evident as well as inferior vena cava filter placement. 5. Additional findings as discussed above. edema all over,suggest laisx 40 mg stat Hyponatremia better after HD hypokalemia give KCL supplement waiting for MG level. may need more MG IV comatose hypotention on vasopressors respiratory failure as per primary team. poor output. poor prognosis. Status: Acute (2) Altered mental status Status: Acute (3) GI bleed Status: Acute (4) Hypotension Status: Deleted
[2017-04-12] MEDS: Vancomycin 250 MG in Sodium Chloride 0.9% 100 ML IVPB SCH (10:33)
--- NOTE | 2017-04-12 10:43 | CP.PCM.PN ---
Subjective - Date & Time of Evaluation Date of Evaluation: 04/12/17 Time of Evaluation: 10:41 - Subjective Subjective: Pt's eyes are open but she is still septic with different bacteria growing from various sources. She is still on 2 pressors and P is maintained. her platelts had dropped to 12 yesterday and she was transfused platelets and today the platelets are 48. will follow the CBC Objective - Vital Signs/Intake and Output Vital Signs (last 24 hours): Temp Pulse Resp BP Pulse Ox 102 F H 122 H 24 103/62 98 04/12/17 08:32 04/12/17 06:00 04/12/17 06:00 04/12/17 06:00 04/12/17 06:00 Intake and Output: 04/12/17 04/12/17 06:59 18:59 Intake Total 1009 Output Total 350 Balance 659 - Medications Medications: Current Medications Acetaminophen (Tylenol 650 Mg Supp) 650 mg RI Q4 PRN PRN Reason: Temp >101 Last Admin: 04/06/17 16:15 Dose: 650 mg Acetaminophen (Tylenol 650mg/20.3ml Solution Ud) 650 mg PO Q4 PRN PRN Reason: Temperature Last Admin: 04/12/17 08:32 Dose: 650 mg Albuterol/Ipratropium (Duoneb 3 Mg/0.5 Mg (3 Ml) Ud) 3 ml INH RQ4 PRN PRN Reason: Shortness of Breath Last Admin: 04/04/17 19:23 Dose: 3 ml Ascorbic Acid (Vitamin C 500 Mg Tab) 1,500 mg PO Q6H ODETTE Stop: 04/12/17 22:01 Last Admin: 04/12/17 03:15 Dose: 1,500 mg Hydrocortisone Sodium Succinate (Solu-Cortef) 50 mg IV Q6H ODETTE Last Admin: 04/12/17 09:07 Dose: 50 mg Vasopressin 100 units/ Sodium (Chloride) 105 mls @ 1.89 mls/hr IV .Q24H ODETTE; 0.03 UNITS/MIN PRN Reason: Protocol Last Admin: 04/10/17 18:50 Dose: 0.03 units/min, 1.89 mls/hr Phenylephrine HCl 20 mg/ (Sodium Chloride) 252 mls @ 15.12 mls/hr IV .[id number] ODETTE; 20 MCG/MIN PRN Reason: Protocol Last Titration: 04/08/17 13:00 Dose: 0 mcg/min, 0 mls/hr Meropenem 500 mg/ Sodium (Chloride) 100 mls @ 100 mls/hr IVPB Q12 ODETTE PRN Reason: Protocol Last Admin: 04/12/17 09:06 Dose: 100 mls/hr Thiamine HCl 200 mg/ Sodium (Chloride) 102 mls @ 204 mls/hr IV Q12H ODETTE Last Admin: 04/12/17 03:34 Dose: 204 mls/hr Dobutamine HCl/Dextrose (Dobutamine/Dextrose 5% 500mg/250ml) 500 mg in 250 mls @ 5.205 mls/hr IV .Q24H ODETTE; 2.5 MCG/KG/MIN PRN Reason: Protocol Last Admin: 04/11/17 05:17 Dose: 2.5 mcg/kg/min, 5.205 mls/hr Vancomycin HCl 250 mg/ Sodium (Chloride) 100 mls @ 100 mls/hr IVPB Q24H ODETTE PRN Reason: Protocol Last Admin: 04/12/17 10:33 Dose: 100 mls/hr Tobramycin Sulfate 60 mg/ (Sodium Chloride) 101.5 mls @ 100 mls/hr IV Q24H ODETTE Last Admin: 04/11/17 17:30 Dose: 100 mls/hr Potassium Chloride 10 meq/ (Sodium Chloride) 55 mls @ 55 mls/hr IV Q1 ODETTE Stop: 04/12/17 11:59 Last Admin: 04/12/17 10:03 Dose: 55 mls/hr Norepinephrine Bitartrate 4 mg (/ Dextrose) 254 mls @ 28.57 mls/hr IV .[id number] ODETTE; 7.5 MCG/MIN PRN Reason: Protocol Last Admin: 04/12/17 09:57 Dose: 7.5 mcg/min, 28.57 mls/hr Pantoprazole Sodium (Protonix Inj) 40 mg IVP Q12H ODETTE Last Admin: 04/12/17 05:32 Dose: 40 mg - Labs Labs: 04/12/17 04:20 04/12/17 04:20 PT 36.0 Seconds (9.8-13.1) H D 04/08/17 05:30 INR 3.1 (0.9-1.2) H D 04/08/17 05:30 APTT 47.0 Seconds (25.6-37.1) H 04/08/17 05:30
--- NOTE | 2017-04-12 11:37 | RAD ---
HISTORY: ETT placement COMPARISON: Portable chest 04/11/2017. FINDINGS: Endotracheal tube is unchanged in position as well as right central venous dialysis catheter. LUNGS: Marked improvement in left-sided airspace disease with borderline left infrahilar residual. The patient rotated towards the right limiting comparison somewhat. Right perihilar atelectasis or infiltrate is not excluded. PLEURA: No significant pleural effusion identified, no pneumothorax apparent. CARDIOVASCULAR: Normal. OSSEOUS STRUCTURES: No significant abnormalities. VISUALIZED UPPER ABDOMEN: Normal. OTHER FINDINGS: None. IMPRESSION: Significantly improved left basilar airspace disease with trace left infrahilar residual. Mild increase in right perihilar airspace disease. Exam otherwise stable.
--- NOTE | 2017-04-12 15:55 | CP.CCUPN ---
CCU Subjective - Physician Review Events Since Last Encounter (Free Text): 04/12/17 15:41 The patient was Seen/interviewed and examined by me at the bedside during ICU round, Medical records reviewed and Management issues were discussed and formulated with the house staff. Mrs Scales is a 51 Years old female critically sick, orally intubated on vasopressors and inotropic support for acute hypoxemic Respiratory Failure secondary to pneumonia & Septic Shock and bacteremia from Psudomonas and Kleb pneumoniae (ESBL) in ABF wound & Acute Renal Failure And possible Ischemic Bowel Clinically, hemodynamically remains same, not improved Vasopressors requirements remains same Off sedation, little more Awake today Orally intubated, Vent sitting PRVC 450/14/50% with PEEP of 5, saturating mid 90s Pt. suctioned, Thick yellow secretions removed. 04/11, underwent ABD CT scan today to evaluate for the source of infection, showing Campos colitis and she had HD after the CT scan Pt febrile to 100 with Tmx 101.4 UA and Campos Cultures Re-sent, Blood/Urine/tracheal aspirate NSR on the monitor Last 24H I&O 3333/850 This morning labs revealed no Leucocytosis, severe thrombocytopenia but Plat count improved 25--->48 K of 2.5, mildly suplemented ABG of 7.69/15/106/18/100% Will decrease FIO2 to 40% and decrease to 400 NG tube feeding increased to goal Re-sent UA and Campos Cultures, Blood/Urine/tracheal aspirate CCU Objective - Vital Signs / Intake & Output Vital Signs (Last 4 hours): Vital Signs Temp Pulse Resp BP Pulse Ox 04/12/17 15:27 100.8 F H 04/12/17 12:00 101.4 F H 113 H 49 H 101/67 99 Intake and Output (Last 8hrs): Intake & Output 04/12/17 04/12/17 04/12/17 06:59 14:59 22:59 Intake Total 604 40 Output Total 350 Balance 254 40 Weight 203 lb Intake: IV 284 Intake, Piggyback 200 Tube Feeding 120 40 Output: Urine 350 Urethral ([place]ton) 350 - Physical Exam Head: Positive for: Atraumatic, Normocephalic. Negative for: Tenderness, Contusion Pupils: Positive for: PERRL. Negative for: Sluggish, Non-Reactive Extroacular Muscles: Positive for: EOMI. Negative for: Gaze Palsy Conjunctiva: Positive for: Normal. Negative for: Injected, Icteric Mouth: Positive for: Dry (bloody) Neck: Negative for: JVD Respiratory/Chest: Positive for: Decreased Breath Sounds, Rales, Retracting, Rhonchi, Tachypneic. Negative for: Accessory Muscle Use, Wheezes Cardiovascular: Positive for: Regular Rate and Rhythm. Negative for: Murmurs, Rub Abdomen: Positive for: Distention, Normal Bowel Sounds. Negative for: Tenderness Upper Extremity: Positive for: Edema Lower Extremity: Positive for: Edema. Negative for: CALF TENDERNESS, NORMAL PULSES, Cyanosis Psychiatric: Positive for: Alert, Lethargic - Medications Active Medications: Active Medications Generic Name Dose Route Start Last Admin Trade Name Freq PRN Reason Stop Dose Admin Acetaminophen 650 mg 04/06/17 05:00 04/06/17 16:15 Tylenol 650 Mg Supp MA 650 mg Q4 PRN Administration Temp >101 Acetaminophen 650 mg 04/07/17 04:12 04/12/17 15:27 Tylenol 650mg/20.3ml Solution Ud PO 650 mg Q4 PRN Administration Temperature Albuterol/Ipratropium 3 ml 04/04/17 19:10 04/04/17 19:23 Duoneb 3 Mg/0.5 Mg (3 Ml) Ud INH 3 ml RQ4 PRN Administration Shortness of Breath Ascorbic Acid 1,500 mg 04/08/17 22:00 04/12/17 15:26 Vitamin C 500 Mg Tab PO 04/12/17 22:01 1,500 mg Q6H ODETTE Administration Hydrocortisone Sodium Succinate 50 mg 04/10/17 15:00 04/12/17 15:26 Solu-Cortef IV 50 mg Q6H ODETTE Administration Vasopressin 100 units/ Sodium 105 mls @ 1.89 mls/hr 04/05/17 23:45 04/10/17 18:50 Chloride IV 0.03 units/min .Q24H ODETTE 1.89 mls/hr Protocol Administration 0.03 UNITS/MIN Phenylephrine HCl 20 mg/ 252 mls @ 15.12 mls/hr 04/06/17 07:45 04/08/17 13:00 Sodium Chloride IV 0 mcg/min .[id number] ODETET 0 mls/hr Protocol Titration 20 MCG/MIN Meropenem 500 mg/ Sodium 100 mls @ 100 mls/hr 04/06/17 10:45 04/12/17 09:06 Chloride IVPB 100 mls/hr Q12 ODETTE Administration Protocol Thiamine HCl 200 mg/ Sodium 102 mls @ 204 mls/hr 04/06/17 15:30 04/12/17 15: 26 Chloride IV 204 mls/hr Q12H ODETTE Administration Dobutamine HCl/Dextrose 500 mg in 250 mls @ 5.205 mls/hr 04/10/17 17:15 04/11 05:17 Dobutamine/Dextrose 5% 500mg/250ml IV 2.5 mcg/kg/min .Q24H ODETTE 5.205 mls/hr Protocol Administration 2.5 MCG/KG/MIN Vancomycin HCl 250 mg/ Sodium 100 mls @ 100 mls/hr 04/11/17 09:45 04/12/17 10 :33 Chloride IVPB 100 mls/hr Q24H ODETTE Administration Protocol Tobramycin Sulfate 60 mg/ 101.5 mls @ 100 mls/hr 04/11/17 18:30 04/11/17 17: 30 Sodium Chloride IV 100 mls/hr Q24H ODETTE Administration Norepinephrine Bitartrate 4 mg 254 mls @ 28.57 mls/hr 04/12/17 09:45 09:57 / Dextrose IV 7.5 mcg/min .Q8H54M ODETTE 28.57 mls/hr Protocol Administration 7.5 MCG/MIN Pantoprazole Sodium 40 mg 04/04/17 18:00 04/12/17 05:32 Protonix Inj IVP 40 mg Q12H ODETTE Administration - Patient Studies Lab Studies: Microbiology Studies 04/07/17 04:20 S.aureus & Coag-Neg Staph PNA FISH - Final Blood Blood Culture - Final Enterococcus Faecalis Gram Stain - Final Lab Studies 04/12/17 04/12/17 04/12/17 Range/Units 09:14 05:10 04:20 WBC (4.8-10.8) K/uL RBC (3.80-5.20) Mil/uL Hgb (12.0-16.0) g/dL Hct (34.0-47.0) % MCV (81.0-99.0) fl MCH (27.0-31.0) pg MCHC (33.0-37.0) g/dL RDW (11.5-14.5) % Plt Count (130-400) K/uL pCO2 15 L* (35-45) mm/Hg pO2 106 H (80-100) mm/Hg HCO3 24.3 (21-28) mmol/L ABG pH 7.69 H* (7.35-7.45) ABG Total CO2 18.6 L (22-28) mmol/L ABG O2 Saturation 101.0 H (95-98) % ABG O2 Content 11.5 L (15-23) ML/dL ABG Base Excess -0.9 (-2.0-3.0) mmol/L ABG Hemoglobin 8.2 L (11.7-17.4) g/dL ABG Carboxyhemoglobin 2.0 H (0.5-1.5) % POC ABG HHb (Measured) -1.0 L (0.0-5.0) % ABG Methemoglobin 1.1 (0.0-3.0) % ABG O2 Capacity 11.4 L (16-24) mL/dL Domingo Test Yes A-a O2 Difference 232.0 mm/Hg Hgb O2 Saturation 97.9 (95.0-98.0) % Vent Mode A/c Mechanical Rate 14 FiO2 50.0 % Tidal Volume 450 PEEP 5 Crit Value Called To Juan Jose muniz rn Crit Value Called By 333 Crit Value Read Back Y Blood Gas Notified Time 600 Sodium 135 (132-148) mmol/l Potassium 2.5 L* (3.6-5.0) MMOL/L Chloride 104 (98-107) mmol/L Carbon Dioxide 20 L (22-30) mmol/L Anion Gap 14 (10-20) BUN 14 (7-17) mg/dl Creatinine 1.0 (0.7-1.2) mg/dL Est GFR ( Amer) > 60 Est GFR (Non-Af Amer) 58 Random Glucose 121 H (65-105) mg/dL Calcium 3.6 L* (8.4-10.2) mg/dL Magnesium 1.4 L (1.6-2.3) MG/DL PTH Intact Whole Molec (14-64) pg/mL 04/12/17 04/10/17 Range/Units 04:20 15:30 WBC 5.9 D (4.8-10.8) K/uL RBC 2.91 L (3.80-5.20) Mil/uL Hgb 7.9 L (12.0-16.0) g/dL Hct 24.4 L (34.0-47.0) % MCV 83.8 (81.0-99.0) fl MCH 27.1 (27.0-31.0) pg MCHC 32.3 L (33.0-37.0) g/dL RDW 17.3 H (11.5-14.5) % Plt Count 48 L D (130-400) K/uL pCO2 (35-45) mm/Hg pO2 (80-100) mm/Hg HCO3 (21-28) mmol/L ABG pH (7.35-7.45) ABG Total CO2 (22-28) mmol/L ABG O2 Saturation (95-98) % ABG O2 Content (15-23) ML/dL ABG Base Excess (-2.0-3.0) mmol/L ABG Hemoglobin (11.7-17.4) g/dL ABG Carboxyhemoglobin (0.5-1.5) % POC ABG HHb (Measured) (0.0-5.0) % ABG Methemoglobin (0.0-3.0) % ABG O2 Capacity (16-24) mL/dL Domingo Test A-a O2 Difference mm/Hg Hgb O2 Saturation (95.0-98.0) % Vent Mode Mechanical Rate FiO2 % Tidal Volume PEEP Crit Value Called To Crit Value Called By Crit Value Read Back Blood Gas Notified Time Sodium (132-148) mmol/l Potassium (3.6-5.0) MMOL/L Chloride (98-107) mmol/L Carbon Dioxide (22-30) mmol/L Anion Gap (10-20) BUN (7-17) mg/dl Creatinine (0.7-1.2) mg/dL Est GFR ( Amer) Est GFR (Non-Af Amer) Random Glucose (65-105) mg/dL Calcium (8.4-10.2) mg/dL Magnesium (1.6-2.3) MG/DL PTH Intact Whole Molec 102 H (14-64) pg/mL Laboratory Results - last 24 hr 04/10/17 04/12/17 04/12/17 15:30 04:20 04:20 WBC 5.9 D RBC 2.91 L Hgb 7.9 L Hct 24.4 L MCV 83.8 MCH 27.1 MCHC 32.3 L RDW 17.3 H Plt Count 48 L D pCO2 pO2 HCO3 ABG pH ABG Total CO2 ABG O2 Saturation ABG O2 Content ABG Base Excess ABG Hemoglobin ABG Carboxyhemoglobin POC ABG HHb (Measured) ABG Methemoglobin ABG O2 Capacity Domingo Test A-a O2 Difference Hgb O2 Saturation Vent Mode Mechanical Rate FiO2 Tidal Volume PEEP Crit Value Called To Crit Value Called By Crit Value Read Back Blood Gas Notified Time Sodium 135 Potassium 2.5 L* Chloride 104 Carbon Dioxide 20 L Anion Gap 14 BUN 14 Creatinine 1.0 Est GFR ( Amer) > 60 Est GFR (Non-Af Amer) 58 Random Glucose 121 H Calcium 3.6 L* Magnesium PTH Intact Whole Molec 102 H 04/12/17 04/12/17 05:10 09:14 WBC RBC Hgb Hct MCV MCH MCHC RDW Plt Count pCO2 15 L* pO2 106 H HCO3 24.3 ABG pH 7.69 H* ABG Total CO2 18.6 L ABG O2 Saturation 101.0 H ABG O2 Content 11.5 L ABG Base Excess -0.9 ABG Hemoglobin 8.2 L ABG Carboxyhemoglobin 2.0 H POC ABG HHb (Measured) -1.0 L ABG Methemoglobin 1.1 ABG O2 Capacity 11.4 L Domingo Test Yes A-a O2 Difference 232.0 Hgb O2 Saturation 97.9 Vent Mode A/c Mechanical Rate 14 FiO2 50.0 Tidal Volume 450 PEEP 5 Crit Value Called To Juan Jose muniz rn Crit Value Called By 333 Crit Value Read Back Y Blood Gas Notified Time 600 Sodium Potassium Chloride Carbon Dioxide Anion Gap BUN Creatinine Est GFR ( Amer) Est GFR (Non-Af Amer) Random Glucose Calcium Magnesium 1.4 L PTH Intact Whole Molec Fingerstick Blood Sugar Results: 221 Assessment/Plan (1) Acute respiratory failure with hypoxia Current Visit: Yes Status: Acute Comment: 51 Years old female with Acute Hypoxemic Respiratory Failure Continue Antibiotics WITH Vaco, Tobramycin Sulfate and Meropenem 500 mg IVPB Q12 Continue current ICU mangements Strict I&Os (2) Septic shock Current Visit: Yes Status: Acute Comment: UA and Campos Cultures Re-sent, Blood/Urine/tracheal aspirate IV Vanco, Tobramycin and Meropenem CT scan Abdomine revealed Campos colitis Optimize blood pressure, hemodynamic monitoring and maintain end-organ perfusion Continue levophed/Vaso for BP support, wean as tolerated Continue Dobutamine, follow up sVo2 (3) Acute renal injury due to circulatory failure Current Visit: Yes Status: Acute Comment: Acute kidney injury likely multifactorial due to circulatory failure and septic shock Optimize blood pressure, hemodynamic monitoring and maintain end-organ perfusion Maintian MAP 65-75 (4) Altered mental status Current Visit: Yes Status: Acute Priority: High (5) Anemia Current Visit: Yes Status: Acute Priority: High (6) Metabolic acidosis Current Visit: Yes Status: Acute Comment: Toxic/metabolic acidosis (7) Pneumonia Current Visit: Yes Status: Acute (8) Thrombocytopenia Current Visit: Yes Status: Acute Priority: High Comment: No evidance of active bleeding
--- NOTE | 2017-04-12 15:58 | CP.PCM.PN ---
Subjective - Date & Time of Evaluation Date of Evaluation: 04/12/17 Time of Evaluation: 11:40 - Subjective Subjective: F/U Respiratory failure. Pt unresponsive, intubated. Objective - Vital Signs/Intake and Output Vital Signs (last 24 hours): Temp Pulse Resp BP Pulse Ox 100.8 F H 113 H 49 H 101/67 99 04/12/17 15:27 04/12/17 12:00 04/12/17 12:00 04/12/17 12:00 04/12/17 12:00 Intake and Output: 04/12/17 04/12/17 06:59 18:59 Intake Total 1009 40 Output Total 350 Balance 659 40 - Medications Medications: Current Medications Acetaminophen (Tylenol 650 Mg Supp) 650 mg MD Q4 PRN PRN Reason: Temp >101 Last Admin: 04/06/17 16:15 Dose: 650 mg Acetaminophen (Tylenol 650mg/20.3ml Solution Ud) 650 mg PO Q4 PRN PRN Reason: Temperature Last Admin: 04/12/17 15:27 Dose: 650 mg Albuterol/Ipratropium (Duoneb 3 Mg/0.5 Mg (3 Ml) Ud) 3 ml INH RQ4 PRN PRN Reason: Shortness of Breath Last Admin: 04/04/17 19:23 Dose: 3 ml Ascorbic Acid (Vitamin C 500 Mg Tab) 1,500 mg PO Q6H ODETTE Stop: 04/12/17 22:01 Last Admin: 04/12/17 15:26 Dose: 1,500 mg Hydrocortisone Sodium Succinate (Solu-Cortef) 50 mg IV Q6H ODETTE Last Admin: 04/12/17 15:26 Dose: 50 mg Vasopressin 100 units/ Sodium (Chloride) 105 mls @ 1.89 mls/hr IV .Q24H ODETTE; 0.03 UNITS/MIN PRN Reason: Protocol Last Admin: 04/10/17 18:50 Dose: 0.03 units/min, 1.89 mls/hr Phenylephrine HCl 20 mg/ (Sodium Chloride) 252 mls @ 15.12 mls/hr IV .[id number] ODETTE; 20 MCG/MIN PRN Reason: Protocol Last Titration: 04/08/17 13:00 Dose: 0 mcg/min, 0 mls/hr Meropenem 500 mg/ Sodium (Chloride) 100 mls @ 100 mls/hr IVPB Q12 ODETTE PRN Reason: Protocol Last Admin: 04/12/17 09:06 Dose: 100 mls/hr Thiamine HCl 200 mg/ Sodium (Chloride) 102 mls @ 204 mls/hr IV Q12H ODETTE Last Admin: 04/12/17 15:26 Dose: 204 mls/hr Dobutamine HCl/Dextrose (Dobutamine/Dextrose 5% 500mg/250ml) 500 mg in 250 mls @ 5.205 mls/hr IV .Q24H ODETTE; 2.5 MCG/KG/MIN PRN Reason: Protocol Last Admin: 04/11/17 05:17 Dose: 2.5 mcg/kg/min, 5.205 mls/hr Vancomycin HCl 250 mg/ Sodium (Chloride) 100 mls @ 100 mls/hr IVPB Q24H ODETTE PRN Reason: Protocol Last Admin: 04/12/17 10:33 Dose: 100 mls/hr Tobramycin Sulfate 60 mg/ (Sodium Chloride) 101.5 mls @ 100 mls/hr IV Q24H ODETTE Last Admin: 04/11/17 17:30 Dose: 100 mls/hr Norepinephrine Bitartrate 4 mg (/ Dextrose) 254 mls @ 28.57 mls/hr IV .Q8H54M ODETTE; 7.5 MCG/MIN PRN Reason: Protocol Last Admin: 04/12/17 09:57 Dose: 7.5 mcg/min, 28.57 mls/hr Pantoprazole Sodium (Protonix Inj) 40 mg IVP Q12H ODETTE Last Admin: 04/12/17 05:32 Dose: 40 mg - Labs Labs: 04/12/17 04:20 04/12/17 04:20 PT 36.0 Seconds (9.8-13.1) H D 04/08/17 05:30 INR 3.1 (0.9-1.2) H D 04/08/17 05:30 APTT 47.0 Seconds (25.6-37.1) H 04/08/17 05:30 - Constitutional Appears: Chronically Ill - Head Exam Head Exam: NORMAL INSPECTION - Eye Exam Eye Exam: PERRL - ENT Exam Additional comments: Intubated - Neck Exam Neck Exam: Normal Inspection - Respiratory Exam Respiratory Exam: Decreased Breath Sounds (at bases), Rhonchi - Cardiovascular Exam Cardiovascular Exam: REGULAR RHYTHM - GI/Abdominal Exam GI & Abdominal Exam: Soft, Normal Bowel Sounds Additional comments: surgical wound open mid lower abdomen, yellow sloughy base - Extremities Exam Extremities Exam: Pedal Edema Additional comments: L heel and R lateral ankle DTI. - Back Exam Additional comments: MASD Sacral , buttock. - Neurological Exam Additional comments: Unresponsive, comatose - Psychiatric Exam Psychiatric exam: Flat Affect - Skin Skin Exam: Warm Assessment and Plan (1) Acute respiratory failure Status: Acute (2) Shock Status: Deleted (3) Pneumonia Status: Acute (4) Acute renal failure (ARF) Status: Acute (5) Anemia Status: Acute (6) Hematuria, gross Status: Deleted (7) Thrombocytopenia Status: Resolved (8) History of pulmonary embolus (PE) Status: Acute (9) Pancolitis Status: Deleted - Assessment and Plan (Free Text) Plan: CT Abd/Pelv showing Pancolitis, along with the other diagnosis continue ventilatory support and current Tx.
[2017-04-12] MEDS ORDERED: Sodium Chloride 3% for Inhalation 4 ML VIAL.NEB IH PRN (16:00)
[2017-04-12] MEDS: Tobramycin inj 60 MG in Sodium Chloride 0.9% 100 ML IV SCH (18:54)
--- NOTE | 2017-04-12 19:01 | CP.PCM.PN ---
Subjective - Date & Time of Evaluation Date of Evaluation: 04/12/17 Time of Evaluation: 18:37 - Subjective Subjective: i d note possibly more alert renal function is improve after HD vancomycin trough ordered Objective - Vital Signs/Intake and Output Vital Signs (last 24 hours): Temp Pulse Resp BP Pulse Ox 100.8 F H 113 H 49 H 99/63 L 99 04/12/17 16:00 04/12/17 16:00 04/12/17 12:00 04/12/17 16:00 04/12/17 16:00 Intake and Output: 04/12/17 04/12/17 06:59 18:59 Intake Total 1009 800 Output Total 350 Balance 659 800 - Medications Medications: Current Medications Acetaminophen (Tylenol 650 Mg Supp) 650 mg MD Q4 PRN PRN Reason: Temp >101 Last Admin: 04/06/17 16:15 Dose: 650 mg Acetaminophen (Tylenol 650mg/20.3ml Solution Ud) 650 mg PO Q4 PRN PRN Reason: Temperature Last Admin: 04/12/17 15:27 Dose: 650 mg Albuterol/Ipratropium (Duoneb 3 Mg/0.5 Mg (3 Ml) Ud) 3 ml INH RQ4 PRN PRN Reason: Shortness of Breath Last Admin: 04/04/17 19:23 Dose: 3 ml Ascorbic Acid (Vitamin C 500 Mg Tab) 1,500 mg PO Q6H ODETTE Stop: 04/12/17 22:01 Last Admin: 04/12/17 15:26 Dose: 1,500 mg Hydrocortisone Sodium Succinate (Solu-Cortef) 50 mg IV Q6H ODETTE Last Admin: 04/12/17 15:26 Dose: 50 mg Vasopressin 100 units/ Sodium (Chloride) 105 mls @ 1.89 mls/hr IV .Q24H ODETTE; 0.03 UNITS/MIN PRN Reason: Protocol Last Admin: 04/10/17 18:50 Dose: 0.03 units/min, 1.89 mls/hr Phenylephrine HCl 20 mg/ (Sodium Chloride) 252 mls @ 15.12 mls/hr IV .[id number] ODETTE; 20 MCG/MIN PRN Reason: Protocol Last Titration: 04/08/17 13:00 Dose: 0 mcg/min, 0 mls/hr Meropenem 500 mg/ Sodium (Chloride) 100 mls @ 100 mls/hr IVPB Q12 ODETTE PRN Reason: Protocol Last Admin: 04/12/17 09:06 Dose: 100 mls/hr Thiamine HCl 200 mg/ Sodium (Chloride) 102 mls @ 204 mls/hr IV Q12H ODETTE Last Admin: 04/12/17 15:26 Dose: 204 mls/hr Dobutamine HCl/Dextrose (Dobutamine/Dextrose 5% 500mg/250ml) 500 mg in 250 mls @ 5.205 mls/hr IV .Q24H ODETTE; 2.5 MCG/KG/MIN PRN Reason: Protocol Last Admin: 04/11/17 05:17 Dose: 2.5 mcg/kg/min, 5.205 mls/hr Vancomycin HCl 250 mg/ Sodium (Chloride) 100 mls @ 100 mls/hr IVPB Q24H ODETTE PRN Reason: Protocol Last Admin: 04/12/17 10:33 Dose: 100 mls/hr Tobramycin Sulfate 60 mg/ (Sodium Chloride) 101.5 mls @ 100 mls/hr IV Q24H ODETTE Last Admin: 04/11/17 17:30 Dose: 100 mls/hr Norepinephrine Bitartrate 4 mg (/ Dextrose) 254 mls @ 28.57 mls/hr IV .Q8H54M ODETTE; 7.5 MCG/MIN PRN Reason: Protocol Last Titration: 04/12/17 16:00 Dose: 5 mcg/min, 19.05 mls/hr Pantoprazole Sodium (Protonix Inj) 40 mg IVP Q12H ODETTE Last Admin: 04/12/17 05:32 Dose: 40 mg - Labs Labs: 04/12/17 04:20 04/12/17 04:20 PT 36.0 Seconds (9.8-13.1) H D 04/08/17 05:30 INR 3.1 (0.9-1.2) H D 04/08/17 05:30 APTT 47.0 Seconds (25.6-37.1) H 04/08/17 05:30
[2017-04-12 21:37] LABS: RBC URINE 83 /hpf (0-3); URINE BACTERIA MOD (<OCC); URINE BILIRUBIN NEGATIVE (NEGATIVE); URINE BLOOD LARGE (NEGATIVE); URINE COLOR AMBER (YELLOW); URINE GLUCOSE (UA) NEG (Normal); URINE KETONE NEGATIVE (NEGATIVE); URINE LEUKOCYTE ESTERASE LARGE Leu/uL (Negative); URINE PROTEIN 100 mg/dL (NEGATIVE); URINE UROBILINOGEN 0.2-1.0 mg/dL (0.2-1.0); WBC CLUMPS OCC /hpf; WBC URINE 264 /hpf (0-5)
[2017-04-13] MEDS: Acetaminophen 650mg/20.3ml solution UD PO PRN (00:53)
[2017-04-13 05:15] LABS: HEMATOCRIT 24.2 % (34.0-47.0); MEAN CELL VOLUME 83.3 fl (81.0-99.0); MEAN CORPUSCULAR HEMOGLOBIN 26.8 pg (27.0-31.0); MEAN CORPUSCULAR HGB CONC 32.2 g/dL (33.0-37.0); WHITE BLOOD COUNT 10.6 K/uL (4.8-10.8)
[2017-04-13] MEDS: Thiamine 200 MG in Sodium Chloride 0.9% 100 ML IV SCH (05:34)
[2017-04-13 05:39] LABS: CALCIUM 4.3 mg/dL (8.4-10.2); POTASSIUM 2.8 MMOL/L (3.6-5.0)
[2017-04-13 05:44] LABS: ABG ALLEN TEST YES; ABG MECHANICAL RATE 14; ARTERIAL BLOOD GAS HCO3 19.7 mmol/L (21-28); ARTERIAL BLOOD GAS MODE A/C; ARTERIAL BLOOD GAS O2 CAPACITY 10.9 mL/dL (16-24); ARTERIAL BLOOD GAS PH 7.38 (7.35-7.45); ARTERIAL BLOOD GAS PO2 87 mm/Hg (80-100); ARTERIAL BLOOD HGB O2 SAT 97.3 % (95.0-98.0); ATERIAL BLOOD GAS PEEP 5; CARBOXYHEMOGLOBIN 2.3 % (0.5-1.5); HHB -0.7 % (0.0-5.0); METHEMOGLOBIN 1.1 % (0.0-3.0)
[2017-04-13] MEDS ORDERED: Magnesium Sulfate 2 gm/50 ml 2 GM/50 ML BAG IV ONE (06:45)
--- NOTE | 2017-04-13 07:39 | RAD ---
HISTORY: ETT placement COMPARISON: Frontal chest radiograph 04/12/2017. FINDINGS: Endotracheal tube is unchanged in position as well as right central venous dialysis catheter. Nasogastric tube also unchanged in position. LUNGS: Right perihilar/medial basilar patchy infiltrate persists with elevation right hemidiaphragm again identified. No left-sided infiltrate. PLEURA: No significant pleural effusion identified, no pneumothorax apparent. CARDIOVASCULAR: Normal. OSSEOUS STRUCTURES: No significant abnormalities. VISUALIZED UPPER ABDOMEN: Normal. OTHER FINDINGS: None. IMPRESSION: Stable right perihilar/ medial basilar patchy infiltrate.
--- NOTE | 2017-04-13 09:38 | CP.PCM.PN ---
Subjective - Date & Time of Evaluation Date of Evaluation: 04/13/17 Time of Evaluation: 09:36 - Subjective Subjective: Pt is still intubated,occasionally opening her eyes and is then alert. Her cbc is stable eith Platelets up to 64K. Hgb is a little low at 7.5gms. Will transfuse tomorrow. Objective - Vital Signs/Intake and Output Vital Signs (last 24 hours): Temp Pulse Resp BP Pulse Ox 100.5 F H 106 H 61 H 96/48 L 100 04/13/17 08:00 04/13/17 08:00 04/13/17 08:00 04/13/17 08:00 04/13/17 08:00 Intake and Output: 04/13/17 04/13/17 06:59 18:59 Intake Total 1114 Balance 1114 - Medications Medications: Current Medications Acetaminophen (Tylenol 650 Mg Supp) 650 mg AK Q4 PRN PRN Reason: Temp >101 Last Admin: 04/06/17 16:15 Dose: 650 mg Acetaminophen (Tylenol 650mg/20.3ml Solution Ud) 650 mg PO Q4 PRN PRN Reason: Temperature Last Admin: 04/13/17 00:53 Dose: 650 mg Albuterol/Ipratropium (Duoneb 3 Mg/0.5 Mg (3 Ml) Ud) 3 ml INH RQ4 PRN PRN Reason: Shortness of Breath Last Admin: 04/04/17 19:23 Dose: 3 ml Hydrocortisone Sodium Succinate (Solu-Cortef) 50 mg IV Q6H ODETTE Last Admin: 04/13/17 04:00 Dose: 50 mg Vasopressin 100 units/ Sodium (Chloride) 105 mls @ 1.89 mls/hr IV .Q24H ODETTE; 0.03 UNITS/MIN PRN Reason: Protocol Last Titration: 04/12/17 19:28 Dose: 0 units/min, 0 mls/hr Phenylephrine HCl 20 mg/ (Sodium Chloride) 252 mls @ 15.12 mls/hr IV .[id number] ODETTE; 20 MCG/MIN PRN Reason: Protocol Last Titration: 04/08/17 13:00 Dose: 0 mcg/min, 0 mls/hr Meropenem 500 mg/ Sodium (Chloride) 100 mls @ 100 mls/hr IVPB Q12 ODETTE PRN Reason: Protocol Last Admin: 04/12/17 21:49 Dose: 100 mls/hr Thiamine HCl 200 mg/ Sodium (Chloride) 102 mls @ 204 mls/hr IV Q12H ODETTE Last Admin: 04/13/17 05:34 Dose: 204 mls/hr Dobutamine HCl/Dextrose (Dobutamine/Dextrose 5% 500mg/250ml) 500 mg in 250 mls @ 5.205 mls/hr IV .Q24H ODETTE; 2.5 MCG/KG/MIN PRN Reason: Protocol Last Titration: 04/13/17 06:48 Dose: 2.5 mcg/kg/min, 5.205 mls/hr Vancomycin HCl 250 mg/ Sodium (Chloride) 100 mls @ 100 mls/hr IVPB Q24H ODETTE PRN Reason: Protocol Last Admin: 04/12/17 10:33 Dose: 100 mls/hr Tobramycin Sulfate 60 mg/ (Sodium Chloride) 101.5 mls @ 100 mls/hr IV Q24H ODETTE Last Admin: 04/12/17 18:54 Dose: 100 mls/hr Norepinephrine Bitartrate 4 mg (/ Dextrose) 254 mls @ 28.57 mls/hr IV .[id number] ODETTE; 7.5 MCG/MIN PRN Reason: Protocol Last Titration: 04/13/17 05:00 Dose: 0 mcg/min, 0 mls/hr Potassium Chloride 10 meq/ (Sodium Chloride) 55 mls @ 55 mls/hr IV Q1 ODETTE Stop: 04/13/17 10:59 Pantoprazole Sodium (Protonix Inj) 40 mg IVP Q12H ODETTE Last Admin: 04/13/17 05:34 Dose: 40 mg - Labs Labs: 04/13/17 04:20 04/13/17 04:20 PT 36.0 Seconds (9.8-13.1) H D 04/08/17 05:30 INR 3.1 (0.9-1.2) H D 04/08/17 05:30 APTT 47.0 Seconds (25.6-37.1) H 04/08/17 05:30
[2017-04-13] MEDS: Vancomycin 250 MG in Sodium Chloride 0.9% 100 ML IVPB SCH (09:42)
[2017-04-13] MEDS: Meropenem 500 MG in Sodium Chloride 0.9% 100 ML IVPB SCH ×2 (09:50→21:14)
--- NOTE | 2017-04-13 10:04 | CP.CCUPN ---
CCU Subjective - Physician Review Subjective (Free Text): Improved hemodynamics, off major vasopressors and now Dobutamine as well. has tolerated Vit C regimen, otherwise awake and responsive to simple commands, even trying to mouth words, ABGs acceptable on current MV settings, Day #9 on MV support. Tolerated SBTs on CPAP PS today. Other vitals and I/O's reviewed. Very oliguric. ROS: Unobtainable from intubated Patient. No other pertinent negs or positives on 10+ system review. PMSFH: All Nursing and physician documentation reviewed to date; no new pertinent info noted relevant to current medical problems. CXR: elevated R hemidiaphragm persists, other mild interstitial changes seen near RML and R hilar area. ( my interp). MAJOR PROBLEMS: 1. +Kleb pneumoniae (ESBL) and E. faecalis Bacteremia 2. Septic Shock 2 #1 3. Acute Renal Failure / ATN 4. Acute Resp Failure, 2 pneumonia 5. Thrombocytopenia / Coagulopathy PLAN: 1. Dobutamine stopped today. 2. Consider weaning steroids. 3. MV weans towards extubation. 4. Intermittently febrile, no new leukocytosis, consider changing lines. 5. Lasix / Zaroxlyn 6. Ongoing enteral feeds as long as GI tract tolerates. 7. Calcium, Magnesium repletion, check Phos levels. Time spent with this patient did not overlap with any other provider's medical or critical care time. Additionally the code selected for the services rendered in this note includes the time spent: talking to the patients family, associated physicians and reviewing hospital data/results not listed here which extended to a total of 30 minutes. 04/13/17 10:26 CCU Objective - Vital Signs / Intake & Output Vital Signs (Last 4 hours): Vital Signs Temp Pulse Resp BP Pulse Ox 04/13/17 08:00 100.5 F H 106 H 61 H 96/48 L 100 Intake and Output (Last 8hrs): Intake & Output 04/12/17 04/13/17 04/13/17 22:59 06:59 14:59 Intake Total 661 763 Output Total 520 Balance 141 763 Intake: IV 111 488 Intake, Piggyback 300 Tube Feeding 250 275 Output: Urine 520 Urethral (Overton) 520 - Physical Exam Head: Positive for: Atraumatic, Normocephalic. Negative for: Tenderness, Contusion Pupils: Positive for: PERRL. Negative for: Sluggish, Non-Reactive Extroacular Muscles: Positive for: EOMI. Negative for: Gaze Palsy Conjunctiva: Positive for: Normal. Negative for: Injected, Icteric Mouth: Positive for: Dry (bloody) Neck: Negative for: JVD Respiratory/Chest: Positive for: Decreased Breath Sounds, Rales, Retracting, Rhonchi, Tachypneic. Negative for: Accessory Muscle Use, Wheezes Cardiovascular: Positive for: Regular Rate and Rhythm. Negative for: Murmurs, Rub Abdomen: Positive for: Distention, Normal Bowel Sounds. Negative for: Tenderness Upper Extremity: Positive for: Edema Lower Extremity: Positive for: Edema. Negative for: CALF TENDERNESS, NORMAL PULSES, Cyanosis Psychiatric: Positive for: Alert, Lethargic - Medications Active Medications: Active Medications Generic Name Dose Route Start Last Admin Trade Name Freq PRN Reason Stop Dose Admin Acetaminophen 650 mg 04/06/17 05:00 04/06/17 16:15 Tylenol 650 Mg Supp IA 650 mg Q4 PRN Administration Temp >101 Acetaminophen 650 mg 04/07/17 04:12 04/13/17 00:53 Tylenol 650mg/20.3ml Solution Ud PO 650 mg Q4 PRN Administration Temperature Albuterol/Ipratropium 3 ml 04/04/17 19:10 04/04/17 19:23 Duoneb 3 Mg/0.5 Mg (3 Ml) Ud INH 3 ml RQ4 PRN Administration Shortness of Breath Ascorbic Acid 1,500 mg 04/13/17 10:00 Vitamin C 500 Mg Tab PO Q6 ODETTE Calcium Gluconate 4.6 meq 04/13/17 10:00 Calcium Gluconate IV 04/14/17 01:01 Q8 ODETTE Hydrocortisone Sodium Succinate 50 mg 04/10/17 15:00 04/13/17 09:40 Solu-Cortef IV 50 mg Q6H ODETTE Administration Meropenem 500 mg/ Sodium 100 mls @ 100 mls/hr 04/06/17 10:45 04/13/17 09:50 Chloride IVPB 100 mls/hr Q12 ODETTE Administration Protocol Thiamine HCl 200 mg/ Sodium 102 mls @ 204 mls/hr 04/06/17 15:30 04/13/17 05: 34 Chloride IV 204 mls/hr Q12H ODETTE Administration Vancomycin HCl 250 mg/ Sodium 100 mls @ 100 mls/hr 04/11/17 09:45 04/13/17 09 :42 Chloride IVPB 100 mls/hr Q24H ODETTE Administration Protocol Tobramycin Sulfate 60 mg/ 101.5 mls @ 100 mls/hr 04/11/17 18:30 04/12/17 18: 54 Sodium Chloride IV 100 mls/hr Q24H ODETTE Administration Potassium Chloride 10 meq/ 55 mls @ 55 mls/hr 04/13/17 07:00 04/13/17 09:42 Sodium Chloride IV 04/13/17 10:59 55 mls/hr Q1 ODETTE Administration Potassium Chloride 100 mls @ 100 mls/hr 04/13/17 10:00 Potassium Chloride 10 Meq/100 Ml IVPB 04/13/17 13:59 Q1 ODETTE Potassium Chloride 20 meq 04/13/17 09:55 Potassium Chloride Oral Soln PO 04/13/17 09:56 BID ONE - Patient Studies Lab Studies: Microbiology Studies 04/07/17 04:20 S.aureus & Coag-Neg Staph PNA FISH - Final Blood Blood Culture - Final Enterococcus Faecalis Gram Stain - Final Lab Studies 04/13/17 04/13/17 04/13/17 Range/Units 05:16 04:20 04:20 WBC 10.6 D (4.8-10.8) K/uL RBC 2.90 L (3.80-5.20) Mil/uL Hgb 7.8 L (12.0-16.0) g/dL Hct 24.2 L (34.0-47.0) % MCV 83.3 (81.0-99.0) fl MCH 26.8 L (27.0-31.0) pg MCHC 32.2 L (33.0-37.0) g/dL RDW 18.0 H (11.5-14.5) % Plt Count 64 L (130-400) K/uL pCO2 30 L (35-45) mm/Hg pO2 87 (80-100) mm/Hg HCO3 19.7 L (21-28) mmol/L ABG pH 7.38 (7.35-7.45) ABG Total CO2 18.6 L (22-28) mmol/L ABG O2 Saturation 100.7 H (95-98) % ABG O2 Content 11.0 L (15-23) ML/dL ABG Base Excess -6.7 L (-2.0-3.0) mmol/L ABG Hemoglobin 7.9 L (11.7-17.4) g/dL ABG Carboxyhemoglobin 2.3 H (0.5-1.5) % POC ABG HHb (Measured) -0.7 L (0.0-5.0) % ABG Methemoglobin 1.1 (0.0-3.0) % ABG O2 Capacity 10.9 L (16-24) mL/dL Domingo Test Yes A-a O2 Difference 161.0 mm/Hg Hgb O2 Saturation 97.3 (95.0-98.0) % Vent Mode A/c Mechanical Rate 14 FiO2 40.0 % Tidal Volume 400 PEEP 5 Sodium 134 (132-148) mmol/l Potassium 2.8 L (3.6-5.0) MMOL/L Chloride 101 (98-107) mmol/L Carbon Dioxide 19 L (22-30) mmol/L Anion Gap 17 (10-20) BUN 20 H (7-17) mg/dl Creatinine 1.4 H (0.7-1.2) mg/dl Est GFR ( Amer) 48 Est GFR (Non-Af Amer) 39 Random Glucose 143 H (65-105) mg/dL Calcium 4.3 L* (8.4-10.2) mg/dL Urine Color (YELLOW) Urine Clarity (Clear) Urine pH (5.0-8.0) Ur Specific [place] (1.003-1.030) Urine Protein (NEGATIVE) mg/dL Urine Glucose (UA) (Normal) mg/dL Urine Ketones (NEGATIVE) mg/dL Urine Blood (NEGATIVE) Urine Nitrate (NEGATIVE) Urine Bilirubin (NEGATIVE) Urine Urobilinogen (0.2-1.0) mg/dL Ur Leukocyte Esterase (Negative) Nick/uL Urine RBC (Auto) (0-3) /hpf Urine WBC Clumps (Auto) (NONE) /hpf Urine Microscopic WBC (0-5) /hpf Urine Bacteria (<OCC) Urine Yeast (Budding) (NEGATIVE) /hpf 04/12/ Range/Units 20:57 WBC (4.8-10.8) K/uL RBC (3.80-5.20) Mil/uL Hgb (12.0-16.0) g/dL Hct (34.0-47.0) % MCV (81.0-99.0) fl MCH (27.0-31.0) pg MCHC (33.0-37.0) g/dL RDW (11.5-14.5) % Plt Count (130-400) K/uL pCO2 (35-45) mm/Hg pO2 (80-100) mm/Hg HCO3 (21-28) mmol/L ABG pH (7.35-7.45) ABG Total CO2 (22-28) mmol/L ABG O2 Saturation (95-98) % ABG O2 Content (15-23) ML/dL ABG Base Excess (-2.0-3.0) mmol/L ABG Hemoglobin (11.7-17.4) g/dL ABG Carboxyhemoglobin (0.5-1.5) % POC ABG HHb (Measured) (0.0-5.0) % ABG Methemoglobin (0.0-3.0) % ABG O2 Capacity (16-24) mL/dL Domingo Test A-a O2 Difference mm/Hg Hgb O2 Saturation (95.0-98.0) % Vent Mode Mechanical Rate FiO2 % Tidal Volume PEEP Sodium (132-148) mmol/l Potassium (3.6-5.0) MMOL/L Chloride (98-107) mmol/L Carbon Dioxide (22-30) mmol/L Anion Gap (10-20) BUN (7-17) mg/dl Creatinine (0.7-1.2) mg/dl Est GFR ( Amer) Est GFR (Non-Af Amer) Random Glucose (65-105) mg/dL Calcium (8.4-10.2) mg/dL Urine Color Shraddha (YELLOW) Urine Clarity Turbid (Clear) Urine pH 6.0 (5.0-8.0) Ur Specific [place] 1.014 (1.003-1.030) Urine Protein 100 (NEGATIVE) mg/dL Urine Glucose (UA) Neg (Normal) mg/dL Urine Ketones Negative (NEGATIVE) mg/dL Urine Blood Large (NEGATIVE) Urine Nitrate Negative (NEGATIVE) Urine Bilirubin Negative (NEGATIVE) Urine Urobilinogen 0.2-1.0 (0.2-1.0) mg/dL Ur Leukocyte Esterase Large (Negative) Nick/uL Urine RBC (Auto) 83 H (0-3) /hpf Urine WBC Clumps (Auto) Occ H (NONE) /hpf Urine Microscopic WBC 264 H (0-5) /hpf Urine Bacteria Mod H (<OCC) Urine Yeast (Budding) Mod H (NEGATIVE) /hpf Laboratory Results - last 24 hr 04/12/17 04/13/17 04/13/17 20:57 04:20 04:20 WBC 10.6 D RBC 2.90 L Hgb 7.8 L Hct 24.2 L MCV 83.3 MCH 26.8 L MCHC 32.2 L RDW 18.0 H Plt Count 64 L pCO2 pO2 HCO3 ABG pH ABG Total CO2 ABG O2 Saturation ABG O2 Content ABG Base Excess ABG Hemoglobin ABG Carboxyhemoglobin POC ABG HHb (Measured) ABG Methemoglobin ABG O2 Capacity Domingo Test A-a O2 Difference Hgb O2 Saturation Vent Mode Mechanical Rate FiO2 Tidal Volume PEEP Sodium 134 Potassium 2.8 L Chloride 101 Carbon Dioxide 19 L Anion Gap 17 BUN 20 H Creatinine 1.4 H Est GFR ( Amer) 48 Est GFR (Non-Af Amer) 39 Random Glucose 143 H Calcium 4.3 L* Urine Color Shraddha Urine Clarity Turbid Urine pH 6.0 Ur Specific [place] 1.014 Urine Protein 100 Urine Glucose (UA) Neg Urine Ketones Negative Urine Blood Large Urine Nitrate Negative Urine Bilirubin Negative Urine Urobilinogen 0.2-1.0 Ur Leukocyte Esterase Large Urine RBC (Auto) 83 H Urine WBC Clumps (Auto) Occ H Urine Microscopic WBC 264 H Urine Bacteria Mod H Urine Yeast (Budding) Mod H 04/13/17 05:16 WBC RBC Hgb Hct MCV MCH MCHC RDW Plt Count pCO2 30 L pO2 87 HCO3 19.7 L ABG pH 7.38 ABG Total CO2 18.6 L ABG O2 Saturation 100.7 H ABG O2 Content 11.0 L ABG Base Excess -6.7 L ABG Hemoglobin 7.9 L ABG Carboxyhemoglobin 2.3 H POC ABG HHb (Measured) -0.7 L ABG Methemoglobin 1.1 ABG O2 Capacity 10.9 L Domingo Test Yes A-a O2 Difference 161.0 Hgb O2 Saturation 97.3 Vent Mode A/c Mechanical Rate 14 FiO2 40.0 Tidal Volume 400 PEEP 5 Sodium Potassium Chloride Carbon Dioxide Anion Gap BUN Creatinine Est GFR ( Amer) Est GFR (Non-Af Amer) Random Glucose Calcium Urine Color Urine Clarity Urine pH Ur Specific [place] Urine Protein Urine Glucose (UA) Urine Ketones Urine Blood Urine Nitrate Urine Bilirubin Urine Urobilinogen Ur Leukocyte Esterase Urine RBC (Auto) Urine WBC Clumps (Auto) Urine Microscopic WBC Urine Bacteria Urine Yeast (Budding) Fingerstick Blood Sugar Results: 221 Review of Systems - Review of Systems Systems not reviewed;Unavailable: Intubated Critical Care Progress Note - Ventilator Checklist Head of Bed 30 Degrees: Yes Daily Sedation Vacation: Yes Daily Assessment of Readiness to Wean: Yes Daily Spontaneous Breathing Trial: Yes PUD Prophalyxis: Yes DVT Prophylaxis: Yes Oral Care with Chlorhexidine Gluconate {CHG}: Yes - Vent Settings MODE:: ASSIST CONTROL TIDAL VOLUME:: 450 RESP RATE:: 14 FIO2:: 40 PEEP:: 5 - Extremities/Vascular Does the Patient have a Central Venous Catheter?: Yes Does the Patient need a Central Venous Catheter?: Yes Does the Patient have a Overton Catheter?: Yes Does the Patient need a Overton Catheter?: Yes Catheter Insertion Criteria: Need for accurate measurement of output in critically ill patient - Restraints Justification for Restraints: High risk for self extubation - Prophylaxis GI Prophylaxis GI: PPI - Prophylaxis DVT Prophylaxis DVT: Not Indicated
[2017-04-13] MEDS ORDERED: Calcium Gluconate 4.65 mEq/10 ml Inj IV SCH (10:30)
[2017-04-13] MEDS ORDERED: Potassium Chloride 20 mEq/15 ml LIQ UD PO ONE (10:30)
--- NOTE | 2017-04-13 11:46 | CP.PCM.PN ---
Subjective - Date & Time of Evaluation Date of Evaluation: 04/13/17 Time of Evaluation: 11:44 - Subjective Subjective: This patient is doing much better today she is opening her eyes and the family member at the bedside. Urine output noted to be improving somewhat. Discussed with the paper coating machine operator to give Zaroxolyn. Labs reviewed. Objective - Vital Signs/Intake and Output Vital Signs (last 24 hours): Temp Pulse Resp BP Pulse Ox 100.5 F H 106 H 61 H 96/48 L 100 04/13/17 08:00 04/13/17 08:00 04/13/17 08:00 04/13/17 08:00 04/13/17 08:00 Intake and Output: 04/13/17 04/13/17 06:59 18:59 Intake Total 1114 Balance 1114 - Medications Medications: Current Medications Acetaminophen (Tylenol 650 Mg Supp) [address] Q4 PRN PRN Reason: Temp >101 Last Admin: 04/06/17 16:15 Dose: 650 mg Acetaminophen (Tylenol 650mg/20.3ml Solution Ud) 650 mg PO Q4 PRN PRN Reason: Temperature Last Admin: 04/13/17 00:53 Dose: 650 mg Albuterol/Ipratropium (Duoneb 3 Mg/0.5 Mg (3 Ml) Ud) 3 ml INH RQ4 PRN PRN Reason: Shortness of Breath Last Admin: 04/04/17 19:23 Dose: 3 ml Ascorbic Acid (Vitamin C 500 Mg Tab) 1,500 mg PO Q6 ODETTE Hydrocortisone Sodium Succinate (Solu-Cortef) 50 mg IV Q6H ODETTE Last Admin: 04/13/17 09:40 Dose: 50 mg Meropenem 500 mg/ Sodium (Chloride) 100 mls @ 100 mls/hr IVPB Q12 ODETTE PRN Reason: Protocol Last Admin: 04/13/17 09:50 Dose: 100 mls/hr Thiamine HCl 200 mg/ Sodium (Chloride) 102 mls @ 204 mls/hr IV Q12H ODETTE Stop: 04/13/17 20:00 Last Admin: 04/13/17 05:34 Dose: 204 mls/hr Vancomycin HCl 250 mg/ Sodium (Chloride) 100 mls @ 100 mls/hr IVPB Q24H ODETTE PRN Reason: Protocol Last Admin: 04/13/17 09:42 Dose: 100 mls/hr Tobramycin Sulfate 60 mg/ (Sodium Chloride) 101.5 mls @ 100 mls/hr IV Q24H [facility] Last Admin: 04/12/17 18:54 Dose: 100 mls/hr Potassium Chloride 10 meq/ (Sodium Chloride) 55 mls @ 55 mls/hr IV Q1 [facility] Stop: 04/13/17 14:59 Calcium Gluconate 4.6 meq/ (Sodium Chloride) 59.8924 mls @ 59.892 mls/hr IV Q8@ 0300,1100,1900 [facility] Stop: 04/14/17 03:59 Metolazone (Zaroxolyn) 5 mg PO DAILY [facility] Pantoprazole Sodium (Protonix Ec Tab) 40 mg PO DAILY [facility] Thiamine HCl (Vitamin B1 Tab) 200 mg PO Q12H [facility] - Labs Labs: 04/13/17 04:20 04/13/17 04:20 PT 36.0 Seconds (9.8-13.1) H D 04/08/17 05:30 INR 3.1 (0.9-1.2) H D 04/08/17 05:30 APTT 47.0 Seconds (25.6-37.1) H 04/08/17 05:30 - Constitutional Appears: No Acute Distress - ENT Exam ENT Exam: Mucous Membranes Moist - Respiratory Exam Respiratory Exam: Rhonchi. absent: Chest Wall Tenderness - Cardiovascular Exam Cardiovascular Exam: absent: JVD, Rubs - GI/Abdominal Exam GI & Abdominal Exam: Soft - Neurological Exam Neurological Exam: Altered Assessment and Plan (1) Acute renal injury due to circulatory failure Assessment & Plan: AKT [id number] and better edema all over to give zaraxolyn as discussed with paper coating machine operator monitor out put on vent. and vasopressors Status: Acute (2) Altered mental status Status: Acute (3) GI bleed Status: Acute (4) Hypotension Status: Deleted
[2017-04-13] MEDS: metOLazone 5 MG TAB PO SCH (13:30)
[2017-04-13] MEDS ORDERED: Albumin Human 5% (12.5 gm/250 ml) IV ONE (15:29)
--- NOTE | 2017-04-13 16:15 | CP.PCM.PN ---
Subjective - Date & Time of Evaluation Date of Evaluation: 04/13/17 Time of Evaluation: 08:05 - Subjective Subjective: F/U respiratory Failure. Pt with eyes open, following verbal stimuli. On CPAP PS Objective - Vital Signs/Intake and Output Vital Signs (last 24 hours): Temp Pulse Resp BP Pulse Ox 101.1 F H 101 H 12 96/43 L 98 04/13/17 12:00 04/13/17 12:00 04/13/17 12:00 04/13/17 12:00 04/13/17 12:00 Intake and Output: 04/13/17 04/13/17 06:59 18:59 Intake Total 1114 Balance 1114 - Medications Medications: Current Medications Acetaminophen (Tylenol 650 Mg Supp) 650 mg [place] Q4 PRN PRN Reason: Temp >101 Last Admin: 04/06/17 16:15 Dose: 650 mg Acetaminophen (Tylenol 650mg/20.3ml Solution Ud) 650 mg PO Q4 PRN PRN Reason: Temperature Last Admin: 04/13/17 00:53 Dose: 650 mg Albuterol/Ipratropium (Duoneb 3 Mg/0.5 Mg (3 Ml) Ud) 3 ml INH RQ4 PRN PRN Reason: Shortness of Breath Last Admin: 04/04/17 19:23 Dose: 3 ml Ascorbic Acid (Vitamin C 500 Mg Tab) 1,500 mg PO Q6 ODETTE Last Admin: 04/13/17 15:48 Dose: 1,500 mg Hydrocortisone Sodium Succinate (Solu-Cortef) 50 mg IV Q6H [facility]ETTE Last Admin: 04/13/17 15:53 Dose: 50 mg Meropenem 500 mg/ Sodium (Chloride) 100 mls @ 100 mls/hr IVPB Q12 [facility] PRN Reason: Protocol Last Admin: 04/13/17 09:50 Dose: 100 mls/hr Thiamine HCl 200 mg/ Sodium (Chloride) 102 mls @ 204 mls/hr IV Q12H [facility] Stop: 04/13/17 20:00 Last Admin: 04/13/17 05:34 Dose: 204 mls/hr Vancomycin HCl 250 mg/ Sodium (Chloride) 100 mls @ 100 mls/hr IVPB Q24H [facility] PRN Reason: Protocol Last Admin: 04/13/17 09:42 Dose: 100 mls/hr Tobramycin Sulfate 60 mg/ (Sodium Chloride) 101.5 mls @ 100 mls/hr IV Q24H [facility] Last Admin: 04/12/17 18:54 Dose: 100 mls/hr Calcium Gluconate 4.6 meq/ (Sodium Chloride) 59.8924 mls @ 59.892 mls/hr IV Q8@ 0300,1100,1900 [facility] Stop: 04/14/17 03:59 Last Admin: 04/13/17 12:00 Dose: 59.892 mls/hr Metolazone (Zaroxolyn) 5 mg PO DAILY [facility] Last Admin: 04/13/17 13:30 Dose: 5 mg Pantoprazole Sodium (Protonix Ec Tab) 40 mg PO DAILY [facility] Thiamine HCl (Vitamin B1 Tab) 200 mg PO Q12H [facility] - Labs Labs: 04/13/17 04:20 04/13/17 04:20 PT 36.0 Seconds (9.8-13.1) H D 04/08/17 05:30 INR 3.1 (0.9-1.2) H D 04/08/17 05:30 APTT 47.0 Seconds (25.6-37.1) H 04/08/17 05:30 - Constitutional Appears: Chronically Ill - Head Exam Head Exam: NORMAL INSPECTION - Eye Exam Eye Exam: PERRL - ENT Exam Additional comments: Intubated - Neck Exam Neck Exam: Normal Inspection - Respiratory Exam Respiratory Exam: Rhonchi (scattered) - Cardiovascular Exam Cardiovascular Exam: Tachycardia - GI/Abdominal Exam GI & Abdominal Exam: Soft, Normal Bowel Sounds Additional comments: surgical wound open lower mid abdome , sloughy base - Extremities Exam Extremities Exam: Pedal Edema Additional comments: L heel and R lateral ankle DTI - Back Exam Additional comments: MASD Sacral , buttock. - Neurological Exam Neurological Exam: Awake Additional comments: Lethargic, intubated , generalized weakness - Skin Skin Exam: Warm Assessment and Plan (1) Acute respiratory failure Status: Acute (2) Shock Status: Deleted (3) Pneumonia Status: Acute (4) Acute renal failure (ARF) Status: Acute (5) Anemia Status: Acute (6) Hematuria, gross Status: Deleted (7) Thrombocytopenia Status: Resolved (8) History of pulmonary embolus (PE) Status: Acute (9) Pancolitis Status: Deleted - Assessment and Plan (Free Text) Plan: Pt improved, off Vasopressin, continue Vanco, Merrem, Duoneb and rest of Tx.
--- NOTE | 2017-04-13 17:28 | CP.PCM.PN ---
Subjective - Date & Time of Evaluation Date of Evaluation: 04/13/17 Time of Evaluation: 17:44 - Subjective Subjective: ID NOTE VANCOMYCIN TROUGH :11 WILL CONTIUE VANCOMYCIN AT 250MG Q24H MAINTAIN TOBRAMYCIN AT 60MG Q24H AND NEROPENEN 500 MG Q12H PLATELETS:63 HAVE DISCUSSED C MESERET HENRIQUEZ Objective - Vital Signs/Intake and Output Vital Signs (last 24 hours): Temp Pulse Resp BP Pulse Ox 100.8 F H 114 H 12 90/43 L 100 04/13/17 16:00 04/13/17 16:00 04/13/17 12:00 04/13/17 16:00 04/13/17 16:00 Intake and Output: 04/13/17 04/13/17 06:59 18:59 Intake Total 1114 Balance 1114 - Medications Medications: Current Medications Acetaminophen (Tylenol 650 Mg Supp) 650 mg NM Q4 PRN PRN Reason: Temp >101 Last Admin: 04/06/17 16:15 Dose: 650 mg Acetaminophen (Tylenol 650mg/20.3ml Solution Ud) 650 mg PO Q4 PRN PRN Reason: Temperature Last Admin: 04/13/17 00:53 Dose: 650 mg Albuterol/Ipratropium (Duoneb 3 Mg/0.5 Mg (3 Ml) Ud) 3 ml INH RQ4 PRN PRN Reason: Shortness of Breath Last Admin: 04/04/17 19:23 Dose: 3 ml Ascorbic Acid (Vitamin C 500 Mg Tab) 1,500 mg PO Q6 [facility]ETTE Last Admin: 04/13/17 15:48 Dose: 1,500 mg Hydrocortisone Sodium Succinate (Solu-Cortef) 50 mg IV Q6H [facility] Last Admin: 04/13/17 15:53 Dose: 50 mg Meropenem 500 mg/ Sodium (Chloride) 100 mls @ 100 mls/hr IVPB Q12 [facility] PRN Reason: Protocol Last Admin: 04/13/17 09:50 Dose: 100 mls/hr Thiamine HCl 200 mg/ Sodium (Chloride) 102 mls @ 204 mls/hr IV Q12H [facility] Stop: 04/13/17 20:00 Last Admin: 04/13/17 05:34 Dose: 204 mls/hr Vancomycin HCl 250 mg/ Sodium (Chloride) 100 mls @ 100 mls/hr IVPB Q24H [facility] PRN Reason: Protocol Last Admin: 04/13/17 09:42 Dose: 100 mls/hr Tobramycin Sulfate 60 mg/ (Sodium Chloride) 101.5 mls @ 100 mls/hr IV Q24H ODETTE Last Admin: 04/12/17 18:54 Dose: 100 mls/hr Calcium Gluconate 4.6 meq/ (Sodium Chloride) 59.8924 mls @ 59.892 mls/hr IV Q8@ 0300,1100,1900 [facility] Stop: 04/14/17 03:59 Last Admin: 04/13/17 12:00 Dose: 59.892 mls/hr Metolazone (Zaroxolyn) 5 mg PO DAILY [facility] Last Admin: 04/13/17 13:30 Dose: 5 mg Pantoprazole Sodium (Protonix Ec Tab) 40 mg PO DAILY [facility] Thiamine HCl (Vitamin B1 Tab) 200 mg PO Q12H [facility] - Labs Labs: 04/13/17 04:20 04/13/17 04:20 PT 36.0 Seconds (9.8-13.1) H D 04/08/17 05:30 INR 3.1 (0.9-1.2) H D 04/08/17 05:30 APTT 47.0 Seconds (25.6-37.1) H 04/08/17 05:30
[2017-04-13] MEDS: Tobramycin inj 60 MG in Sodium Chloride 0.9% 100 ML IV SCH (19:15)
[2017-04-14 04:53] LABS: VENOUS BLOOD GAS BASE EXCESS -7.4 mmol/L (0.0-2.0); VENOUS BLOOD GAS MODE PRVC/AC; VENOUS BLOOD GAS PCO2 45 mmHg (40-60); VENOUS BLOOD PH 7.25 (7.32-7.43)
[2017-04-14 04:59] LABS: ABG ALLEN TEST YES; ABG MECHANICAL RATE 14; ARTERIAL BLOOD GAS HCO3 19.8 mmol/L (21-28); ARTERIAL BLOOD GAS MODE PRVC/AC; ARTERIAL BLOOD GAS O2 CAPACITY 9.4 mL/dL (16-24); ARTERIAL BLOOD GAS O2 CONTENT 9.4 ML/dL (15-23); ARTERIAL BLOOD GAS PO2 67 mm/Hg (80-100); ARTERIAL BLOOD HGB O2 SAT 95.3 % (95.0-98.0); ATERIAL BLOOD GAS PEEP 5; CARBOXYHEMOGLOBIN 3.5 % (0.5-1.5); METHEMOGLOBIN 1.3 % (0.0-3.0)
[2017-04-14 05:36] LABS: BASO % 0.2 % (0.0-2.0); EOS % 0.2 % (0.0-4.0); LYMPH # 0.4 K/uL (1.0-4.3); MEAN CORPUSCULAR HGB CONC 32.2 g/dL (33.0-37.0); MONO % 0.6 % (0.0-10.0); NEUT # 7.2 K/uL (1.8-7.0); NRBC % 2.2 % (0.0-0.0); PLATELET COUNT 70 K/uL (130-400); WHITE BLOOD COUNT 7.7 K/uL (4.8-10.8)
[2017-04-14 06:12] LABS: ALKALINE PHOSPHATASE 177 U/L (38-126); ALT/SGPT 42 U/L (9-52); AST/SGOT 24 U/L (14-36); BLOOD UREA NITROGEN 24 mg/dl (7-17); CALCIUM 6.1 mg/dL (8.4-10.2); CARBON DIOXIDE 20 mmol/L (22-30); CHLORIDE 105 mmol/L (98-107); GFR AFRICAN-AMERICAN 36; GLUCOSE,RANDOM 112 mg/dL (65-105); PHOSPHOROUS 3.3 mg/dl (2.5-4.5); POTASSIUM 3.2 MMOL/L (3.6-5.0); SODIUM 136 mmol/l (132-148); TOTAL PROTEIN 4.4 G/DL (6.3-8.2)
[2017-04-14] MEDS ORDERED: Potassium Chloride 20 mEq/15 ml LIQ UD PO ONE (07:22)
--- NOTE | 2017-04-14 07:54 | CP.PCM.PN ---
Subjective - Date & Time of Evaluation Date of Evaluation: 04/14/17 Time of Evaluation: 07:53 - Subjective Subjective: Pt's HGB dropped to 6.8 gms today. Will transfuse 2 units of packed cells today. Objective - Vital Signs/Intake and Output Vital Signs (last 24 hours): Temp Pulse Resp BP Pulse Ox 100.8 F H 110 H 15 94/49 L 96 04/14/17 04:00 04/14/17 06:00 04/14/17 06:00 04/14/17 06:00 04/14/17 06:00 Intake and Output: 04/14/17 04/14/17 06:59 18:59 Intake Total 350 Output Total 200 Balance 150 - Medications Medications: Current Medications Acetaminophen (Tylenol 650 Mg Supp) 650 mg [place] Q4 PRN PRN Reason: Temp >101 Last Admin: 04/06/17 16:15 Dose: 650 mg Acetaminophen (Tylenol 650mg/20.3ml Solution Ud) 650 mg PO Q4 PRN PRN Reason: Temperature Last Admin: 04/13/17 00:53 Dose: 650 mg Albuterol/Ipratropium (Duoneb 3 Mg/0.5 Mg (3 Ml) Ud) 3 ml INH RQ4 PRN PRN Reason: Shortness of Breath Last Admin: 04/04/17 19:23 Dose: 3 ml Ascorbic Acid (Vitamin C 500 Mg Tab) 1,500 mg PO Q6 ODETTE Last Admin: 04/14/17 03:07 Dose: 1,500 mg Hydrocortisone Sodium Succinate (Solu-Cortef) 50 mg IV Q6H ODETTE Last Admin: 04/14/17 02:07 Dose: 50 mg Meropenem 500 mg/ Sodium (Chloride) 100 mls @ 100 mls/hr IVPB Q12 ODETTE PRN Reason: Protocol Last Admin: 04/13/17 21:14 Dose: 100 mls/hr Vancomycin HCl 250 mg/ Sodium (Chloride) 100 mls @ 100 mls/hr IVPB Q24H ODETTE PRN Reason: Protocol Last Admin: 04/13/17 09:42 Dose: 100 mls/hr Tobramycin Sulfate 60 mg/ (Sodium Chloride) 101.5 mls @ 100 mls/hr IV Q24H ODETTE Last Admin: 04/13/17 19:15 Dose: 100 mls/hr Metolazone (Zaroxolyn) 5 mg PO DAILY [facility] Last Admin: 04/13/17 13:30 Dose: 5 mg Pantoprazole Sodium (Protonix Ec Tab) 40 mg PO DAILY [facility] Potassium Chloride (Potassium Chloride Oral Soln) 40 meq PO ONCE ONE Stop: 04/14/17 07:23 Thiamine HCl (Vitamin B1 Tab) 200 mg PO Q12H [facility] Last Admin: 04/13/17 21:08 Dose: 200 mg - Labs Labs: 04/14/17 04:20 04/14/17 04:20 PT 15.8 Seconds (9.8-13.1) H 04/14/17 04:20 INR 1.4 (0.9-1.2) H 04/14/17 04:20 APTT 33.0 Seconds (25.6-37.1) 04/14/17 04:20
--- NOTE | 2017-04-14 08:32 | CP.PCM.PN ---
Subjective - Date & Time of Evaluation Date of Evaluation: 04/14/17 Time of Evaluation: 08:32 - Subjective Subjective: dictated Objective - Vital Signs/Intake and Output Vital Signs (last 24 hours): Temp Pulse Resp BP Pulse Ox 100.8 F H 110 H 15 94/49 L 96 04/14/17 04:00 04/14/17 06:00 04/14/17 06:00 04/14/17 06:00 04/14/17 06:00 Intake and Output: 04/14/17 04/14/17 06:59 18:59 Intake Total 350 Output Total 200 Balance 150 - Medications Medications: Current Medications Acetaminophen (Tylenol 650 Mg Supp) 650 mg [place] Q4 PRN PRN Reason: Temp >101 Last Admin: 04/06/17 16:15 Dose: 650 mg Acetaminophen (Tylenol 650mg/20.3ml Solution Ud) 650 mg PO Q4 PRN PRN Reason: Temperature Last Admin: 04/13/17 00:53 Dose: 650 mg Albuterol/Ipratropium (Duoneb 3 Mg/0.5 Mg (3 Ml) Ud) 3 ml INH RQ4 PRN PRN Reason: Shortness of Breath Last Admin: 04/04/17 19:23 Dose: 3 ml Ascorbic Acid (Vitamin C 500 Mg Tab) 1,500 mg PO Q6 ODETTE Last Admin: 04/14/17 03:07 Dose: 1,500 mg Hydrocortisone Sodium Succinate (Solu-Cortef) 50 mg IV Q6H ODETTE Last Admin: 04/14/17 02:07 Dose: 50 mg Meropenem 500 mg/ Sodium (Chloride) 100 mls @ 100 mls/hr IVPB Q12 ODETTE PRN Reason: Protocol Last Admin: 04/13/17 21:14 Dose: 100 mls/hr Vancomycin HCl 250 mg/ Sodium (Chloride) 100 mls @ 100 mls/hr IVPB Q24H ODETTE PRN Reason: Protocol Last Admin: 04/13/17 09:42 Dose: 100 mls/hr Tobramycin Sulfate 60 mg/ (Sodium Chloride) 101.5 mls @ 100 mls/hr IV Q24H ODETTE Last Admin: 04/13/17 19:15 Dose: 100 mls/hr Metolazone (Zaroxolyn) 5 mg PO DAILY [facility] Last Admin: 04/13/17 13:30 Dose: 5 mg Pantoprazole Sodium (Protonix Ec Tab) 40 mg PO DAILY [facility] Thiamine HCl (Vitamin B1 Tab) 200 mg PO Q12H ODETTE Last Admin: 04/13/17 21:08 Dose: 200 mg - Labs Labs: 04/14/17 04:20 04/14/17 04:20 PT 15.8 Seconds (9.8-13.1) H 04/14/17 04:20 INR 1.4 (0.9-1.2) H 04/14/17 04:20 APTT 33.0 Seconds (25.6-37.1) 04/14/17 04:20 Assessment and Plan (1) Acute renal injury due to circulatory failure Status: Acute (2) Altered mental status Status: Acute (3) GI bleed Status: Acute (4) Hypotension Status: Deleted
[2017-04-14] MEDS: metOLazone 5 MG TAB PO SCH (09:03)
--- NOTE | 2017-04-14 09:47 | RAD ---
PROCEDURE: CHEST RADIOGRAPH, 1 VIEW HISTORY: pt intubated COMPARISON: Portable chest 04/13/2017. FINDINGS: Endotracheal tube, right central venous dialysis catheter and nasogastric tube appear unchanged in position. LUNGS: Persistent airspace disease in the right infrahilar space is slightly increased in the left inner infrahilar space as well. PLEURA: No pneumothorax or pleural fluid seen. CARDIOVASCULAR: Normal. OSSEOUS STRUCTURES: No significant abnormalities. VISUALIZED UPPER ABDOMEN: Normal. OTHER FINDINGS: None. IMPRESSION: Mild increase in left infrahilar airspace disease with right infrahilar airspace disease unchanged.
[2017-04-14] MEDS: Meropenem 500 MG in Sodium Chloride 0.9% 100 ML IVPB SCH ×2 (10:28→22:48)
[2017-04-14] MEDS ORDERED: Pantoprazole 40 mg EC Tab PO SCH (11:00)
[2017-04-14 11:41] LABS: METAMYELOCYTE 1 % (0-0); MYELOCYTE 2 % (0-0); NEUTROPHIL 79 % (42-75); NUCLEATED RED BLOOD CELL 3 % (0-0); TOTAL CELLS COUNTED 100
[2017-04-14 11:46] LABS: SPHEROCYTES SLIGHT
[2017-04-14] MEDS: Pantoprazole 40 mg Susp UD NG SCH (15:05)
[2017-04-14] MEDS: Acetaminophen 650mg/20.3ml solution UD PO PRN (15:08)
--- NOTE | 2017-04-14 15:20 | CP.PCM.PN ---
Subjective - Date & Time of Evaluation Date of Evaluation: 04/14/17 Time of Evaluation: 09:20 - Subjective Subjective: F/U Respiratory Failure. Eyes open, aware of verbal commands. Objective - Vital Signs/Intake and Output Vital Signs (last 24 hours): Temp Pulse Resp BP Pulse Ox 101.1 F H 110 H 20 93/53 L 95 04/14/17 15:08 04/14/17 12:00 04/14/17 12:00 04/14/17 08:00 04/14/17 12:00 Intake and Output: 04/14/17 04/14/17 06:59 18:59 Intake Total 350 Output Total 200 Balance 150 - Medications Medications: Current Medications Acetaminophen (Tylenol 650 Mg Supp) 650 mg [place] Q4 PRN PRN Reason: Temp >101 Last Admin: 04/06/17 16:15 Dose: 650 mg Acetaminophen (Tylenol 650mg/20.3ml Solution Ud) 650 mg PO Q4 PRN PRN Reason: Temperature Last Admin: 04/14/17 15:08 Dose: 650 mg Albuterol/Ipratropium (Duoneb 3 Mg/0.5 Mg (3 Ml) Ud) 3 ml INH RQ4 PRN PRN Reason: Shortness of Breath Last Admin: 04/04/17 19:23 Dose: 3 ml Ascorbic Acid (Vitamin C 500 Mg Tab) 1,500 mg PO Q6 ODETTE Last Admin: 04/14/17 15:06 Dose: 1,500 mg Hydrocortisone Sodium Succinate (Solu-Cortef) 50 mg IV Q6H ODETTE Last Admin: 04/14/17 15:06 Dose: 50 mg Meropenem 500 mg/ Sodium (Chloride) 100 mls @ 100 mls/hr IVPB Q12 ODETTE PRN Reason: Protocol Last Admin: 04/14/17 10:28 Dose: 100 mls/hr Vancomycin HCl 250 mg/ Sodium (Chloride) 100 mls @ 100 mls/hr IVPB Q24H ODETTE PRN Reason: Protocol Last Admin: 04/13/17 09:42 Dose: 100 mls/hr Tobramycin Sulfate 60 mg/ (Sodium Chloride) 101.5 mls @ 100 mls/hr IV Q24H [facility]ETTE Last Admin: 04/13/17 19:15 Dose: 100 mls/hr Norepinephrine Bitartrate 8 mg (/ Dextrose) 258 mls @ 4.83 mls/hr IV .Q24H ONE PRN Reason: 2.5 MCG/MIN Stop: 04/15/17 14:44 Last Admin: 04/14/17 15:05 Dose: 4.83 mls/hr Metolazone (Zaroxolyn) 5 mg PO DAILY [facility] Last Admin: 04/14/17 09:03 Dose: 5 mg Pantoprazole Sodium (Protonix Susp) 40 mg NG DAILY [facility] Last Admin: 04/14/17 15:05 Dose: 40 mg Thiamine HCl (Vitamin B1 Tab) 200 mg PO Q12H [facility] Last Admin: 04/14/17 09:01 Dose: 200 mg - Labs Labs: 04/14/17 04:20 04/14/17 04:20 PT 15.8 Seconds (9.8-13.1) H 04/14/17 04:20 INR 1.4 (0.9-1.2) H 04/14/17 04:20 APTT 33.0 Seconds (25.6-37.1) 04/14/17 04:20 - Constitutional Appears: Chronically Ill - Head Exam Head Exam: NORMAL INSPECTION - Eye Exam Eye Exam: PERRL - ENT Exam Additional comments: Intubated - Neck Exam Neck Exam: Normal Inspection - Respiratory Exam Respiratory Exam: Rhonchi (scattered) - Cardiovascular Exam Cardiovascular Exam: REGULAR RHYTHM - GI/Abdominal Exam GI & Abdominal Exam: Soft, Normal Bowel Sounds - Extremities Exam Extremities Exam: Pedal Edema Additional comments: L heel DTI, R lateral ankle DTI. - Back Exam Additional comments: MSAD sacral, buttock - Neurological Exam Additional comments: Intubated, Lethargic - Skin Skin Exam: Warm Assessment and Plan (1) Acute respiratory failure Status: Acute (2) Shock Status: Deleted (3) Pneumonia Status: Acute (4) Acute renal failure (ARF) Status: Acute (5) Anemia Status: Acute (6) Hematuria, gross Status: Deleted (7) Thrombocytopenia Status: Resolved (8) History of pulmonary embolus (PE) Status: Acute (9) Pancolitis Status: Deleted - Assessment and Plan (Free Text) Plan: Ventilatory suppor, Hgb low, off Vasopressor, to have PRBC, for HD today, continue abx coverage.
[2017-04-14] MEDS: Vancomycin 250 MG in Sodium Chloride 0.9% 100 ML IVPB SCH (15:55)
--- NOTE | 2017-04-14 15:55 | CP.CCUPN ---
CCU Subjective - Physician Review Subjective (Free Text): Appears fatigued and not as responsive today compared to yesterday. Hypotensive again with SBP in 90's, resumed on Levophed, also just completed 1st unit of 2 ordered PRBCs. No new leukocytosis, but febrile again, no new organisms on repeat cultures. Other vitals and I/O's reviewed. Still oliguric, on;y approx 400ml last 24H. ROS: Unobtainable from intubated Patient. No other pertinent negs or positives on 10+ system review. PMSFH: All Nursing and physician documentation reviewed to date; no new pertinent info noted relevant to current medical problems. CXR: elevated R hemidiaphragm persists, other mild interstitial changes seen near RML and R hilar area. ( my interp). MAJOR PROBLEMS: 1. +Kleb pneumoniae (ESBL) and E. faecalis Bacteremia 2. Septic Shock 2 #1 3. Acute Renal Failure / ATN 4. Acute Resp Failure, 2 pneumonia 5. Thrombocytopenia / Coagulopathy PLAN: 1. Levophed resumed today, off Dobutamine, but mixed venous SvO2 has been acceptable. Lactic acid level slightly elevated again. PRBCs infused. 2. Will continue steroids with Thiamine and Vit C. Repeat Procalcitonin level. 3. No MV weans today, with fevers and hypotension. Appears to be approaching consideration for Trach. 4. Consider changing lines. 5. Lasix / Zaroxlyn as tolerated, HD today as per Nephrology. 6. Ongoing enteral feeds as long as GI tract tolerates. 7. Calcium levels better. Time spent with this patient did not overlap with any other provider's medical or critical care time. Additionally the code selected for the services rendered in this note includes the time spent: talking to the patients family, associated physicians and reviewing hospital data/results not listed here which extended to a total of 30 minutes. CCU Objective - Vital Signs / Intake & Output Vital Signs (Last 4 hours): Vital Signs Temp Pulse Resp Pulse Ox 04/14/17 15:08 101.1 F H 04/14/17 12:00 99.7 F H 110 H 20 95 Intake and Output (Last 8hrs): Intake & Output 04/14/17 04/14/17 04/14/17 06:59 14:59 22:59 Intake Total 350 Output Total 200 Balance 150 Intake: Intake, Piggyback 320 Oral 30 Output: Urine 200 Urethral (Overton) 200 Other: # Bowel Movements 1 - Physical Exam Head: Positive for: Atraumatic, Normocephalic. Negative for: Tenderness, Contusion Pupils: Positive for: PERRL. Negative for: Sluggish, Non-Reactive Extroacular Muscles: Positive for: EOMI. Negative for: Gaze Palsy Conjunctiva: Positive for: Normal. Negative for: Injected, Icteric Mouth: Positive for: Dry (bloody) Neck: Negative for: JVD Respiratory/Chest: Positive for: Decreased Breath Sounds, Rales, Retracting, Rhonchi, Tachypneic. Negative for: Accessory Muscle Use, Wheezes Cardiovascular: Positive for: Regular Rate and Rhythm. Negative for: Murmurs, Rub Abdomen: Positive for: Distention, Normal Bowel Sounds. Negative for: Tenderness Upper Extremity: Positive for: Edema Lower Extremity: Positive for: Edema. Negative for: CALF TENDERNESS, NORMAL PULSES, Cyanosis Psychiatric: Positive for: Alert, Lethargic - Medications Active Medications: Active Medications Generic Name Dose Route Start Last Admin Trade Name Freq PRN Reason Stop Dose Admin Acetaminophen 650 mg 04/06/17 05:00 04/06/17 16:15 Tylenol 650 Mg Supp NM 650 mg Q4 PRN Administration Temp >101 Acetaminophen 650 mg 04/07/17 04:12 04/14/17 15:08 Tylenol 650mg/20.3ml Solution Ud PO 650 mg Q4 PRN Administration Temperature Albuterol/Ipratropium 3 ml 04/04/17 19:10 04/04/17 19:23 Duoneb 3 Mg/0.5 Mg (3 Ml) Ud INH 3 ml RQ4 PRN Administration Shortness of Breath Ascorbic Acid 1,500 mg 04/13/17 10:00 04/14/17 15:06 Vitamin C 500 Mg Tab PO 1,500 mg Q6 ODETTE Administration Hydrocortisone Sodium Succinate 50 mg 04/10/17 15:00 04/14/17 15:06 Solu-Cortef IV 50 mg Q6H ODETTE Administration Meropenem 500 mg/ Sodium 100 mls @ 100 mls/hr 04/06/17 10:45 04/14/17 10:28 Chloride IVPB 100 mls/hr Q12 ODETTE Administration Protocol Vancomycin HCl 250 mg/ Sodium 100 mls @ 100 mls/hr 04/11/17 09:45 04/13/17 09 :42 Chloride IVPB 100 mls/hr Q24H ODETTE Administration Protocol Tobramycin Sulfate 60 mg/ 101.5 mls @ 100 mls/hr 04/11/17 18:30 04/13/17 19: 15 Sodium Chloride IV 100 mls/hr Q24H ODETTE Administration Norepinephrine Bitartrate 8 mg 258 mls @ 4.83 mls/hr 04/14/17 14:45 04/14/17 15:05 / Dextrose IV 04/15/17 14:44 4.83 mls/hr .Q24H ONE Administration 2.5 MCG/MIN Metolazone 5 mg 04/13/17 10:45 04/14/17 09:03 Zaroxolyn PO 5 mg DAILY ODETTE Administration Pantoprazole Sodium 40 mg 04/14/17 10:30 04/14/17 15:05 Protonix Susp NG 40 mg DAILY ODETTE Administration Thiamine HCl 200 mg 04/13/17 21:00 04/14/17 09:01 Vitamin B1 Tab PO 200 mg Q12H ODETTE Administration - Patient Studies Lab Studies: Microbiology Studies 04/12/17 20:57 Urine Culture - Final Urine,[place]ton Yeast Species 04/12/17 11:05 Blood Culture - Preliminary Blood NO GROWTH AFTER 48 HOURS 04/12/17 09:27 Gram Stain - Final Trachasp Sputum Culture - Preliminary Gram Negative Jeremi 04/12/17 19:00 Blood Culture - Preliminary Blood-Venous NO GROWTH AFTER 24 HOURS Lab Studies 04/14/17 04/14/17 04/14/17 Range/Units 08:46 08:18 04:50 WBC (4.8-10.8) K/uL RBC (3.80-5.20) Mil/uL Hgb (12.0-16.0) g/dL Hct (34.0-47.0) % MCV (81.0-99.0) fl MCH (27.0-31.0) pg MCHC (33.0-37.0) g/dL RDW (11.5-14.5) % Plt Count (130-400) K/uL MPV (7.2-11.7) fl Neut % (Auto) (50.0-75.0) % Lymph % (Auto) (20.0-40.0) % [place] % (Auto) (0.0-10.0) % Eos % (Auto) (0.0-4.0) % Baso % (Auto) (0.0-2.0) % Neut # (1.8-7.0) K/uL Lymph # (1.0-4.3) K/uL [place] # (0.0-0.8) K/uL Eos # (0.0-0.7) K/uL Baso # (0.0-0.2) K/uL Neutrophils % (Manual) (42-75) % Band Neutrophils % (0-2) % Lymphocytes % (Manual) (20-50) % Monocytes % (Manual) (0-10) % Metamyelocytes % (0-0) % Myelocytes % (0-0) % Nucleated RBC % (0-0) % Toxic Granulation Platelet Estimate (NORMAL) Hypochromasia (manual) Anisocytosis (manual) Spherocytes Ovalocytes Schistocytes PT (9.8-13.1) Seconds INR (0.9-1.2) APTT (25.6-37.1) Seconds pCO2 39 (35-45) mm/Hg pO2 67 L (30-55) mm/Hg HCO3 19.8 L (21-28) mmol/L ABG pH 7.30 L (7.35-7.45) ABG Total CO2 20.4 L (22-28) mmol/L ABG O2 Saturation 100.0 H (95-98) % ABG O2 Content 9.4 L (15-23) ML/dL ABG Base Excess -6.6 L (-2.0-3.0) mmol/L ABG Hemoglobin 6.9 L (11.7-17.4) g/dL ABG Carboxyhemoglobin 3.5 H (0.5-1.5) % POC ABG HHb (Measured) 0.0 (0.0-5.0) % ABG Methemoglobin 1.3 (0.0-3.0) % ABG O2 Capacity 9.4 L (16-24) mL/dL Domingo Test Yes VBG pH (7.32-7.43) VBG pCO2 (40-60) mmHg VBG HCO3 mmol/L VBG Total CO2 (22-28) mmol/L VBG O2 Sat (Calc) (40-65) % VBG Base Excess (0.0-2.0) mmol/L VBG Potassium (3.6-5.2) mmol/L A-a O2 Difference 98.0 mm/Hg Hgb O2 Saturation 95.3 (95.0-98.0) % Glucose (65-105) mg/dL Lactate (0.7-2.1) mmol/L Vent Mode Prvc/ac Mechanical Rate 14 FiO2 30.0 % Tidal Volume 450 PEEP 5 Crit Value Called To Crit Value Called By Crit Value Read Back Blood Gas Notified Time Sodium (132-148) mmol/l Potassium (3.6-5.0) MMOL/L Chloride (98-107) mmol/L Carbon Dioxide (22-30) mmol/L Anion Gap (10-20) BUN (7-17) mg/dl Creatinine (0.7-1.2) mg/dl Est GFR ( Amer) Est GFR (Non-Af Amer) Random Glucose (65-105) mg/dL Lactic Acid (0.7-2.1) MMOL/L Uric Acid 5.7 (2.2-7.5) mg/Dl Calcium (8.4-10.2) mg/dL Phosphorus (2.5-4.5) mg/dl Magnesium (1.6-2.3) MG/DL Total Bilirubin (0.2-1.3) mg/dl AST (14-36) U/L ALT (9-52) U/L Alkaline Phosphatase (38-126) U/L Total Creatine Kinase (30-135) U/L Total Protein (6.3-8.2) G/DL Albumin (3.5-5.0) g/dL Globulin (2.2-3.9) gm/dL Albumin/Globulin Ratio (1.0-2.1) Venous Blood Potassium (3.6-5.2) mmol/L Vancomycin Trough (5.0-10.0) ug/mL Blood Type A POSITIVE Antibody Screen Negative Crossmatch See Detail BBK History Checked Patient has bt 04/14/17 04/14/17 04/14/17 Range/Units 04:45 04:20 04:20 WBC (4.8-10.8) K/uL RBC (3.80-5.20) Mil/uL Hgb (12.0-16.0) g/dL Hct (34.0-47.0) % MCV (81.0-99.0) fl MCH (27.0-31.0) pg MCHC (33.0-37.0) g/dL RDW (11.5-14.5) % Plt Count (130-400) K/uL MPV (7.2-11.7) fl Neut % (Auto) (50.0-75.0) % Lymph % (Auto) (20.0-40.0) % [place] % (Auto) (0.0-10.0) % Eos % (Auto) (0.0-4.0) % Baso % (Auto) (0.0-2.0) % Neut # (1.8-7.0) K/uL Lymph # (1.0-4.3) K/uL [place] # (0.0-0.8) K/uL Eos # (0.0-0.7) K/uL Baso # (0.0-0.2) K/uL Neutrophils % (Manual) (42-75) % Band Neutrophils % (0-2) % Lymphocytes % (Manual) (20-50) % Monocytes % (Manual) (0-10) % Metamyelocytes % (0-0) % Myelocytes % (0-0) % Nucleated RBC % (0-0) % Toxic Granulation Platelet Estimate (NORMAL) Hypochromasia (manual) Anisocytosis (manual) Spherocytes Ovalocytes Schistocytes PT (9.8-13.1) Seconds INR (0.9-1.2) APTT (25.6-37.1) Seconds pCO2 (35-45) mm/Hg pO2 36 (30-55) mm/Hg HCO3 (21-28) mmol/L ABG pH (7.35-7.45) ABG Total CO2 (22-28) mmol/L ABG O2 Saturation (95-98) % ABG O2 Content (15-23) ML/dL ABG Base Excess (-2.0-3.0) mmol/L ABG Hemoglobin (11.7-17.4) g/dL ABG Carboxyhemoglobin (0.5-1.5) % POC ABG HHb (Measured) (0.0-5.0) % ABG Methemoglobin (0.0-3.0) % ABG O2 Capacity (16-24) mL/dL Domingo Test VBG pH 7.25 L (7.32-7.43) VBG pCO2 45 (40-60) mmHg VBG HCO3 18.1 mmol/L VBG Total CO2 21.1 L (22-28) mmol/L VBG O2 Sat (Calc) 81.0 H (40-65) % VBG Base Excess -7.4 L (0.0-2.0) mmol/L VBG Potassium 3.2 L (3.6-5.2) mmol/L A-a O2 Difference mm/Hg Hgb O2 Saturation (95.0-98.0) % Glucose 129 H (65-105) mg/dL Lactate 2.7 H (0.7-2.1) mmol/L Vent Mode Mechanical Rate FiO2 40.0 % Tidal Volume PEEP 5 Crit Value Called To aurea Cartagena rn Crit Value Called By Bethanie gambrills Crit Value Read Back Y Blood Gas Notified Time 450 Sodium 135.0 (132-148) mmol/l Potassium (3.6-5.0) MMOL/L Chloride 107.0 (98-107) mmol/L Carbon Dioxide (22-30) mmol/L Anion Gap (10-20) BUN (7-17) mg/dl Creatinine (0.7-1.2) mg/dl Est GFR ( Amer) Est GFR (Non-Af Amer) Random Glucose (65-105) mg/dL Lactic Acid 2.6 H (0.7-2.1) MMOL/L Uric Acid (2.2-7.5) mg/Dl Calcium (8.4-10.2) mg/dL Phosphorus (2.5-4.5) mg/dl Magnesium (1.6-2.3) MG/DL Total Bilirubin (0.2-1.3) mg/dl AST (14-36) U/L ALT (9-52) U/L Alkaline Phosphatase (38-126) U/L Total Creatine Kinase (30-135) U/L Total Protein (6.3-8.2) G/DL Albumin (3.5-5.0) g/dL Globulin (2.2-3.9) gm/dL Albumin/Globulin Ratio (1.0-2.1) Venous Blood Potassium 3.2 L (3.6-5.2) mmol/L Vancomycin Trough 14.5 H (5.0-10.0) ug/mL Blood Type Antibody Screen Crossmatch BBK History Checked 04/14/17 04/14/17 04/14/17 Range/Units 04:20 04:20 04:20 WBC 7.7 (4.8-10.8) K/uL RBC 2.50 L (3.80-5.20) Mil/uL Hgb 6.8 L (12.0-16.0) g/dL Hct 21.0 L (34.0-47.0) % MCV 84.0 (81.0-99.0) fl MCH 27.0 (27.0-31.0) pg MCHC 32.2 L (33.0-37.0) g/dL RDW 18.0 H (11.5-14.5) % Plt Count 70 L (130-400) K/uL MPV 10.0 (7.2-11.7) fl Neut % (Auto) 94.0 H (50.0-75.0) % Lymph % (Auto) 5.0 L (20.0-40.0) % [place] % (Auto) 0.6 (0.0-10.0) % Eos % (Auto) 0.2 (0.0-4.0) % Baso % (Auto) 0.2 (0.0-2.0) % Neut # 7.2 H (1.8-7.0) K/uL Lymph # 0.4 L (1.0-4.3) K/uL [place] # 0.0 (0.0-0.8) K/uL Eos # 0.0 (0.0-0.7) K/uL Baso # 0.0 (0.0-0.2) K/uL Neutrophils % (Manual) 79 H (42-75) % Band Neutrophils % 4 H (0-2) % Lymphocytes % (Manual) 7 L (20-50) % Monocytes % (Manual) 7 (0-10) % Metamyelocytes % 1 H (0-0) % Myelocytes % 2 H (0-0) % Nucleated RBC % 3 H (0-0) % Toxic Granulation Present Platelet Estimate Decreased L (NORMAL) Hypochromasia (manual) Moderate Anisocytosis (manual) Slight Spherocytes Slight Ovalocytes Slight Schistocytes Slight PT 15.8 H (9.8-13.1) Seconds INR 1.4 H (0.9-1.2) APTT 33.0 (25.6-37.1) Seconds pCO2 (35-45) mm/Hg pO2 (30-55) mm/Hg HCO3 (21-28) mmol/L ABG pH (7.35-7.45) ABG Total CO2 (22-28) mmol/L ABG O2 Saturation (95-98) % ABG O2 Content (15-23) ML/dL ABG Base Excess (-2.0-3.0) mmol/L ABG Hemoglobin (11.7-17.4) g/dL ABG Carboxyhemoglobin (0.5-1.5) % POC ABG HHb (Measured) (0.0-5.0) % ABG Methemoglobin (0.0-3.0) % ABG O2 Capacity (16-24) mL/dL Domingo Test VBG pH (7.32-7.43) VBG pCO2 (40-60) mmHg VBG HCO3 mmol/L VBG Total CO2 (22-28) mmol/L VBG O2 Sat (Calc) (40-65) % VBG Base Excess (0.0-2.0) mmol/L VBG Potassium (3.6-5.2) mmol/L A-a O2 Difference mm/Hg Hgb O2 Saturation (95.0-98.0) % Glucose (65-105) mg/dL Lactate (0.7-2.1) mmol/L Vent Mode Mechanical Rate FiO2 % Tidal Volume PEEP Crit Value Called To Crit Value Called By Crit Value Read Back Blood Gas Notified Time Sodium 136 (132-148) mmol/l Potassium 3.2 L (3.6-5.0) MMOL/L Chloride 105 (98-107) mmol/L Carbon Dioxide 20 L (22-30) mmol/L Anion Gap 14 (10-20) BUN 24 H (7-17) mg/dl Creatinine 1.8 H (0.7-1.2) mg/dl Est GFR ( Amer) 36 Est GFR (Non-Af Amer) 30 Random Glucose 112 H (65-105) mg/dL Lactic Acid (0.7-2.1) MMOL/L Uric Acid (2.2-7.5) mg/Dl Calcium 6.1 L (8.4-10.2) mg/dL Phosphorus 3.3 (2.5-4.5) mg/dl Magnesium 2.0 (1.6-2.3) MG/DL Total Bilirubin 1.0 (0.2-1.3) mg/dl AST 24 (14-36) U/L ALT 42 (9-52) U/L Alkaline Phosphatase 177 H D (38-126) U/L Total Creatine Kinase < 20 L (30-135) U/L Total Protein 4.4 L (6.3-8.2) G/DL Albumin 2.2 L (3.5-5.0) g/dL Globulin 2.2 (2.2-3.9) gm/dL Albumin/Globulin Ratio 1.0 (1.0-2.1) Venous Blood Potassium (3.6-5.2) mmol/L Vancomycin Trough (5.0-10.0) ug/mL Blood Type Antibody Screen Crossmatch BBK History Checked Laboratory Results - last 24 hr 04/14/17 04/14/17 04/14/17 04:20 04:20 04:20 WBC 7.7 RBC 2.50 L Hgb 6.8 L Hct 21.0 L MCV 84.0 MCH 27.0 MCHC 32.2 L RDW 18.0 H Plt Count 70 L MPV 10.0 Neut % (Auto) 94.0 H Lymph % (Auto) 5.[address] [place] % (Auto) 0.6 Eos % (Auto) 0.2 Baso % (Auto) 0.2 Neut # 7.2 H Lymph # 0.[address] [place] # 0.0 Eos # 0.0 Baso # 0.0 Neutrophils % (Manual) 79 H Band Neutrophils % 4 H Lymphocytes % (Manual) 7 L Monocytes % (Manual) 7 Metamyelocytes % 1 H Myelocytes % 2 H Nucleated RBC % 3 H Toxic Granulation Present Platelet Estimate Decreased L Hypochromasia (manual) Moderate Anisocytosis (manual) Slight Spherocytes Slight Ovalocytes Slight Schistocytes Slight PT 15.8 H INR 1.4 H APTT 33.0 pCO2 pO2 HCO3 ABG pH ABG Total CO2 ABG O2 Saturation ABG O2 Content ABG Base Excess ABG Hemoglobin ABG Carboxyhemoglobin POC ABG HHb (Measured) ABG Methemoglobin ABG O2 Capacity Domingo Test VBG pH VBG pCO2 VBG HCO3 VBG Total CO2 VBG O2 Sat (Calc) VBG Base Excess VBG Potassium A-a O2 Difference Hgb O2 Saturation Glucose Lactate Vent Mode Mechanical Rate FiO2 Tidal Volume PEEP Crit Value Called To Crit Value Called By Crit Value Read Back Blood Gas Notified Time Sodium 136 Potassium 3.2 L Chloride 105 Carbon Dioxide 20 L Anion Gap 14 BUN 24 H Creatinine 1.8 H Est GFR ( Amer) 36 Est GFR (Non-Af Amer) 30 Random Glucose 112 H Lactic Acid Uric Acid Calcium 6.1 L Phosphorus 3.3 Magnesium 2.0 Total Bilirubin 1.0 AST 24 ALT 42 Alkaline Phosphatase 177 H D Total Creatine Kinase < 20 L Total Protein 4.4 L Albumin 2.2 L Globulin 2.2 Albumin/Globulin Ratio 1.0 Venous Blood Potassium Vancomycin Trough Blood Type Antibody Screen Crossmatch BBK History Checked 04/14/17 04/14/17 04/14/17 04:20 04:20 04:45 WBC RBC Hgb Hct MCV MCH MCHC RDW Plt Count MPV Neut % (Auto) Lymph % (Auto) [place] % (Auto) Eos % (Auto) Baso % (Auto) Neut # Lymph # [place] # Eos # Baso # Neutrophils % (Manual) Band Neutrophils % Lymphocytes % (Manual) Monocytes % (Manual) Metamyelocytes % Myelocytes % Nucleated RBC % Toxic Granulation Platelet Estimate Hypochromasia (manual) Anisocytosis (manual) Spherocytes Ovalocytes Schistocytes PT INR APTT pCO2 pO2 36 HCO3 ABG pH ABG Total CO2 ABG O2 Saturation ABG O2 Content ABG Base Excess ABG Hemoglobin ABG Carboxyhemoglobin POC ABG HHb (Measured) ABG Methemoglobin ABG O2 Capacity Domingo Test VBG pH 7.25 L VBG pCO2 45 VBG HCO3 18.1 VBG Total CO2 21.1 L VBG O2 Sat (Calc) 81.0 H VBG Base Excess -7.4 L VBG Potassium 3.2 L A-a O2 Difference Hgb O2 Saturation Glucose 129 H Lactate 2.7 H Vent Mode Mechanical Rate FiO2 40.0 Tidal Volume PEEP 5 Crit Value Called To aurea Cartagena rn Crit Value Called By Bethanie oseguera Crit Value Read Back Y Blood Gas Notified Time 450 Sodium 135.0 Potassium Chloride 107.0 Carbon Dioxide Anion Gap BUN Creatinine Est GFR ( Amer) Est GFR (Non-Af Amer) Random Glucose Lactic Acid 2.6 H Uric Acid Calcium Phosphorus Magnesium Total Bilirubin AST ALT Alkaline Phosphatase Total Creatine Kinase Total Protein Albumin Globulin Albumin/Globulin Ratio Venous Blood Potassium 3.2 L Vancomycin Trough 14.5 H Blood Type Antibody Screen Crossmatch BBK History Checked 04/14/17 04/14/17 04/14/17 04:50 08:18 08:46 WBC RBC Hgb Hct MCV MCH MCHC RDW Plt Count MPV Neut % (Auto) Lymph % (Auto) [place] % (Auto) Eos % (Auto) Baso % (Auto) Neut # Lymph # [place] # Eos # Baso # Neutrophils % (Manual) Band Neutrophils % Lymphocytes % (Manual) Monocytes % (Manual) Metamyelocytes % Myelocytes % Nucleated RBC % Toxic Granulation Platelet Estimate Hypochromasia (manual) Anisocytosis (manual) Spherocytes Ovalocytes Schistocytes PT INR APTT pCO2 39 pO2 67 L HCO3 19.8 L ABG pH 7.30 L ABG Total CO2 20.4 L ABG O2 Saturation 100.0 H ABG O2 Content 9.4 L ABG Base Excess -6.6 L ABG Hemoglobin 6.9 L ABG Carboxyhemoglobin 3.5 H POC ABG HHb (Measured) 0.0 ABG Methemoglobin 1.3 ABG O2 Capacity 9.4 L Domingo Test Yes VBG pH VBG pCO2 VBG HCO3 VBG Total CO2 VBG O2 Sat (Calc) VBG Base Excess VBG Potassium A-a O2 Difference 98.0 Hgb O2 Saturation 95.3 Glucose Lactate Vent Mode Prvc/ac Mechanical Rate 14 FiO2 30.0 Tidal Volume 450 PEEP 5 Crit Value Called To Crit Value Called By Crit Value Read Back Blood Gas Notified Time Sodium Potassium Chloride Carbon Dioxide Anion Gap BUN Creatinine Est GFR ( Amer) Est GFR (Non-Af Amer) Random Glucose Lactic Acid Uric Acid 5.7 Calcium Phosphorus Magnesium Total Bilirubin AST ALT Alkaline Phosphatase Total Creatine Kinase Total Protein Albumin Globulin Albumin/Globulin Ratio Venous Blood Potassium Vancomycin Trough Blood Type A POSITIVE Antibody Screen Negative Crossmatch See Detail BBK History Checked Patient has bt Fingerstick Blood Sugar Results: 221 Review of Systems - Review of Systems Systems not reviewed;Unavailable: Intubated Critical Care Progress Note - Ventilator Checklist Head of Bed 30 Degrees: Yes Daily Sedation Vacation: No (no anxiolytics given) Daily Assessment of Readiness to Wean: No (too unstable, recurrent fevers) Daily Spontaneous Breathing Trial: No (too unstable, recurrent fevers) PUD Prophalyxis: Yes DVT Prophylaxis: Yes Oral Care with Chlorhexidine Gluconate {CHG}: Yes - Vent Settings MODE:: ASSIST CONTROL TIDAL VOLUME:: 450 RESP RATE:: 14 FIO2:: 40 PEEP:: 5 - Extremities/Vascular Does the Patient have a Central Venous Catheter?: Yes Insertion Site: Femoral Vein Does the Patient need a Central Venous Catheter?: Yes Does the Patient have a Overton Catheter?: Yes Does the Patient need a Over[place] Catheter?: Yes Catheter Insertion Criteria: Need for accurate measurement of output in critically ill patient - Prophylaxis GI Prophylaxis GI: PPI - Prophylaxis DVT Prophylaxis DVT: Heparin SQ
--- NOTE | 2017-04-14 16:03 | PN ---
DATE: SUBJECTIVE: She is a 51 years of age, remains on respirator and remains on vasopressors. Urine output has not been recorded well in the last 24 hours, nor intake has been recorded very well. I discussed that with the nurse in the floor. Patient reported that she is responding somewhat, although she is sedated at times. PHYSICAL EXAMINATION: GENERAL: She is edematous allover, in the legs, in the arm, and in the abdomen. VITAL SIGNS: Blood pressure 94/49, with a pulse 110, temperature 100.8. ABDOMEN: Appeared to be soft. EXTREMITIES: 2+ edema above the knee. LUNGS: Rhonchi throughout the lungs. HEART: No rubs. LABORATORY DATA: Showed hemoglobin 6.8, WBC 7.7. Sodium 136, potassium 3.2, CO2 of 20, creatinine has been going up at 1.8 with a BUN of 24 and calcium 6.1, and the last phosphorus 3.3 and magnesium 2.0. IMPRESSION: 1. Patient developing acute kidney injury. Etiology multifactorial. Patient on antibiotics. Respiratory failure, sepsis among other things. 2. Hypokalemia. Patient requiring to be given potassium chloride everyday. 3. Hypomagnesemia has been corrected yesterday, but again should be repeated today. 4. Patient is status post multiple abdominal surgeries regarding previously ovarian cancer and later on another abdominal surgery done in [place] and patient is also severely anemic. RECOMMENDATIONS: 1. Patient needs blood transfusion as soon as possible. 2. Hemodialysis scheduled. We will try to ultrafiltrate and remove some fluid. 3. Potassium chloride supplement needed right away and blood transfusion. Tommy Longoria MD
[2017-04-14 16:31] LABS: VENOUS BLOOD GAS BASE EXCESS -7.7 mmol/L (0.0-2.0); VENOUS BLOOD GAS MODE A/C; VENOUS BLOOD GAS PCO2 38 mmHg (40-60); VENOUS BLOOD PH 7.29 (7.32-7.43)
[2017-04-14] MEDS: Tobramycin inj 60 MG in Sodium Chloride 0.9% 100 ML IV SCH (22:18)
[2017-04-15 05:05] LABS: BASO % 0.2 % (0.0-2.0); EOS % 0.1 % (0.0-4.0); HEMATOCRIT 33.7 % (34.0-47.0); LYMPH # 0.6 K/uL (1.0-4.3); LYMPH % 4.1 % (20.0-40.0); MEAN CELL VOLUME 82.7 fl (81.0-99.0); MEAN CORPUSCULAR HEMOGLOBIN 26.9 pg (27.0-31.0); MEAN CORPUSCULAR HGB CONC 32.5 g/dL (33.0-37.0); MEAN PLATELET VOLUME 9.4 fl (7.2-11.7); MONO % 0.3 % (0.0-10.0); NEUT # 13.2 K/uL (1.8-7.0); NEUT % 95.3 % (50.0-75.0); NRBC % 3.1 % (0.0-0.0); PLATELET COUNT 75 K/uL (130-400); RED CELL DISTRIBUTION WIDTH 16.4 % (11.5-14.5); WHITE BLOOD COUNT 13.9 K/uL (4.8-10.8)
[2017-04-15 05:14] LABS: ALB/GLOB RATIO 0.9 (1.0-2.1); BILIRUBIN,TOTAL 1.5 mg/dl (0.2-1.3); CALCIUM 6.2 mg/dL (8.4-10.2)
[2017-04-15 08:10] LABS: ABG ALLEN TEST YES; ABG MECHANICAL RATE 14; ARTERIAL BLOOD GAS HCO3 23.5 mmol/L (21-28); ARTERIAL BLOOD GAS MODE PRVC/AC; ARTERIAL BLOOD GAS O2 CAPACITY 15.6 mL/dL (16-24); ARTERIAL BLOOD GAS O2 CONTENT 15.4 ML/dL (15-23); ARTERIAL BLOOD GAS PH 7.44 (7.35-7.45); ARTERIAL BLOOD GAS PO2 78 mm/Hg (80-100); ARTERIAL BLOOD HGB O2 SAT 94.7 % (95.0-98.0); ATERIAL BLOOD GAS PEEP 5; CARBOXYHEMOGLOBIN 2.5 % (0.5-1.5); HHB 1.2 % (0.0-5.0); METHEMOGLOBIN 1.6 % (0.0-3.0)
[2017-04-15 09:20] LABS: EOSINOPHIL 1 % (0-7); METAMYELOCYTE 2 % (0-0); MYELOCYTE 4 % (0-0); NEUTROPHIL 62 % (42-75); NUCLEATED RED BLOOD CELL 1 % (0-0); TOTAL CELLS COUNTED 100
[2017-04-15 09:21] LABS: GIANT PLATELETS PRESENT; LARGE PLATELETS PRESENT
[2017-04-15] MEDS: Pantoprazole 40 mg Susp UD NG SCH (10:03)
[2017-04-15] MEDS: metOLazone 5 MG TAB PO SCH (10:03)
--- NOTE | 2017-04-15 10:05 | CP.PCM.PN ---
Subjective - Date & Time of Evaluation Date of Evaluation: 04/15/17 Time of Evaluation: 10:04 - Subjective Subjective: Pt is stable from a hematological point of view. Will sign off the case, Please recall if needed Objective - Vital Signs/Intake and Output Vital Signs (last 24 hours): Temp Pulse Resp BP Pulse Ox 98.2 F 98 H 16 105/66 100 04/15/17 08:00 04/15/17 08:00 04/15/17 08:00 04/15/17 08:00 04/15/17 08:00 Intake and Output: 04/15/17 04/15/17 06:59 18:59 Intake Total 688 Output Total 1500 Balance -812 - Medications Medications: Current Medications Acetaminophen (Tylenol 650 Mg Supp) 650 mg OH Q4 PRN PRN Reason: Temp >101 Last Admin: 04/06/17 16:15 Dose: 650 mg Acetaminophen (Tylenol 650mg/20.3ml Solution Ud) 650 mg PO Q4 PRN PRN Reason: Temperature Last Admin: 04/14/17 15:08 Dose: 650 mg Albuterol/Ipratropium (Duoneb 3 Mg/0.5 Mg (3 Ml) Ud) 3 ml INH RQ4 PRN PRN Reason: Shortness of Breath Last Admin: 04/04/17 19:23 Dose: 3 ml Ascorbic Acid (Vitamin C 500 Mg Tab) 1,500 mg PO Q6 ODETTE Last Admin: 04/15/17 03:22 Dose: 1,500 mg Hydrocortisone Sodium Succinate (Solu-Cortef) 50 mg IV Q6H ODETTE Last Admin: 04/15/17 03:21 Dose: 50 mg Meropenem 500 mg/ Sodium (Chloride) 100 mls @ 100 mls/hr IVPB Q12 ODETTE PRN Reason: Protocol Last Admin: 04/14/17 22:48 Dose: 100 mls/hr Vancomycin HCl 250 mg/ Sodium (Chloride) 100 mls @ 100 mls/hr IVPB Q24H ODETTE PRN Reason: Protocol Last Admin: 04/14/17 15:55 Dose: 100 mls/hr Tobramycin Sulfate 60 mg/ (Sodium Chloride) 101.5 mls @ 100 mls/hr IV Q24H ODETTE Last Admin: 04/14/17 22:18 Dose: 100 mls/hr Norepinephrine Bitartrate 8 mg (/ Dextrose) 258 mls @ 4.83 mls/hr IV .Q24H ONE ; 2.5 MCG/MIN PRN Reason: Protocol Stop: 04/15/17 14:44 Last Titration: 04/15/17 00:00 Dose: 5 mcg/min, 9.67 mls/hr Potassium Chloride 60 meq/ (Sodium Chloride) 530 mls @ 132.5 mls/hr IV ONCE ONE Stop: 04/15/17 10:59 Metolazone (Zaroxolyn) 5 mg PO DAILY ODETTE Last Admin: 04/14/17 09:03 Dose: 5 mg Pantoprazole Sodium (Protonix Susp) 40 mg NG DAILY ODETTE Last Admin: 04/14/17 15:05 Dose: 40 mg Thiamine HCl (Vitamin B1 Tab) 200 mg PO Q12H ODETTE Last Admin: 04/14/17 22:50 Dose: 200 mg - Labs Labs: 04/15/17 04:20 04/15/17 04:20 PT 15.8 Seconds (9.8-13.1) H 04/14/17 04:20 INR 1.4 (0.9-1.2) H 04/14/17 04:20 APTT 33.0 Seconds (25.6-37.1) 04/14/17 04:20
[2017-04-15] MEDS: Meropenem 500 MG in Sodium Chloride 0.9% 100 ML IVPB SCH ×2 (10:15→20:26)
[2017-04-15] MEDS: Vancomycin 250 MG in Sodium Chloride 0.9% 100 ML IVPB SCH (10:44)
--- NOTE | 2017-04-15 10:58 | RAD ---
HISTORY: intubated COMPARISON: 04/14/2017 FINDINGS: Endotracheal tube terminates 3.0 cm proximal to the sloane. The nasogastric tube terminates in the stomach. The right dialysis catheter terminates in the right atrium. LUNGS: There is mild patient rotation to the left. There is airspace disease in the right lower lobe. Also noted is left retrocardiac airspace disease. There is mild pulmonary venous congestion. PLEURA: No significant pleural effusion identified, no pneumothorax apparent. CARDIOVASCULAR: Normal. OSSEOUS STRUCTURES: No significant abnormalities. VISUALIZED UPPER ABDOMEN: Normal. OTHER FINDINGS: There is chronic elevation of the right hemidiaphragm. IMPRESSION: Suspect right lower lobe pneumonia. Left retrocardiac opacity may represent atelectasis or pneumonia. Mild pulmonary venous congestion. Stable position of support line and tubes.
--- NOTE | 2017-04-15 12:41 | CP.PCM.PN ---
Subjective - Date & Time of Evaluation Date of Evaluation: 04/15/17 Time of Evaluation: 12:00 - Subjective Subjective: F/U Acute respiratory failure. Objective - Vital Signs/Intake and Output Vital Signs (last 24 hours): Temp Pulse Resp BP Pulse Ox 99.4 F 102 H 50 H 115/69 96 04/15/17 12:00 04/15/17 12:00 04/15/17 12:00 04/15/17 12:00 04/15/17 12:00 Intake and Output: 04/15/17 04/15/17 06:59 18:59 Intake Total 688 Output Total 1500 Balance -812 - Medications Medications: Current Medications Acetaminophen (Tylenol 650 Mg Supp) 650 mg GA Q4 PRN PRN Reason: Temp >101 Last Admin: 04/06/17 16:15 Dose: 650 mg Acetaminophen (Tylenol 650mg/20.3ml Solution Ud) 650 mg PO Q4 PRN PRN Reason: Temperature Last Admin: 04/14/17 15:08 Dose: 650 mg Albuterol/Ipratropium (Duoneb 3 Mg/0.5 Mg (3 Ml) Ud) 3 ml INH RQ4 PRN PRN Reason: Shortness of Breath Last Admin: 04/04/17 19:23 Dose: 3 ml Ascorbic Acid (Vitamin C 500 Mg Tab) 1,500 mg PO Q6 ODETTE Last Admin: 04/15/17 10:02 Dose: 1,500 mg Hydrocortisone Sodium Succinate (Solu-Cortef) 50 mg IV Q6H ODETTE Last Admin: 04/15/17 10:03 Dose: 50 mg Meropenem 500 mg/ Sodium (Chloride) 100 mls @ 100 mls/hr IVPB Q12 ODETTE PRN Reason: Protocol Last Admin: 04/15/17 10:15 Dose: 100 mls/hr Vancomycin HCl 250 mg/ Sodium (Chloride) 100 mls @ 100 mls/hr IVPB Q24H ODETTE PRN Reason: Protocol Last Admin: 04/15/17 10:44 Dose: Not Given Tobramycin Sulfate 60 mg/ (Sodium Chloride) 101.5 mls @ 100 mls/hr IV Q24H ODETTE Last Admin: 04/14/17 22:18 Dose: 100 mls/hr Norepinephrine Bitartrate 8 mg (/ Dextrose) 258 mls @ 4.83 mls/hr IV .Q24H ONE ; 2.5 MCG/MIN PRN Reason: Protocol Stop: 04/15/17 14:44 Last Titration: 04/15/17 00:00 Dose: 5 mcg/min, 9.67 mls/hr Metolazone (Zaroxolyn) 5 mg PO DAILY [facility] Last Admin: 04/15/17 10:03 Dose: 5 mg Pantoprazole Sodium (Protonix Susp) 40 mg NG DAILY [facility] Last Admin: 04/15/17 10:03 Dose: 40 mg Thiamine HCl (Vitamin B1 Tab) 200 mg PO Q12H [facility] Last Admin: 04/15/17 10:02 Dose: 200 mg - Labs Labs: 04/15/17 04:20 04/15/17 04:20 PT 15.8 Seconds (9.8-13.1) H 04/14/17 04:20 INR 1.4 (0.9-1.2) H 04/14/17 04:20 APTT 33.0 Seconds (25.6-37.1) 04/14/17 04:20 - Constitutional Appears: No Acute Distress, Chronically Ill - Head Exam Head Exam: NORMAL INSPECTION - Eye Exam Eye Exam: PERRL - ENT Exam Additional comments: Intubated - Neck Exam Neck Exam: Normal Inspection - Respiratory Exam Respiratory Exam: Rhonchi (scattered) - Cardiovascular Exam Cardiovascular Exam: REGULAR RHYTHM - GI/Abdominal Exam GI & Abdominal Exam: Soft, Normal Bowel Sounds - Extremities Exam Extremities Exam: Pedal Edema Additional comments: L heel DTI, R lateral ankle DTI, MSAD posterior thigh. - Back Exam Additional comments: MSAD on buttock, sacrum, R flank. - Neurological Exam Additional comments: Intubated, lethargic - Skin Skin Exam: Warm Assessment and Plan (1) Acute respiratory failure Status: Acute (2) Shock Status: Deleted (3) Pneumonia Status: Acute (4) Acute renal failure (ARF) Status: Acute (5) Anemia Status: Acute (6) Hematuria, gross Status: Deleted (7) Thrombocytopenia Status: Resolved (8) History of pulmonary embolus (PE) Status: Acute (9) Pancolitis Status: Deleted - Assessment and Plan (Free Text) Plan: Continue ventilatory support, abx coverage, Pt on Norepinephrine.
[2017-04-15] MEDS: Hydrocortisone Succinat 250 MG vial IV SCH ×3 (13:00→23:50)
--- NOTE | 2017-04-15 14:45 | CP.PCM.PN ---
Subjective - Date & Time of Evaluation Date of Evaluation: 04/15/17 Time of Evaluation: 14:42 - Subjective Subjective: Remain intubated Vasopressor Hemodialysis completed yesterday with removal of the above 1800 mL of fluid Patient was transfused. Physical exam Poor response Chest scattered rhonchi Heart no rubs Abdomen soft Extremity 2+ edema Impression and plan Acute renal failure probably secondary to multifactorial related to the sepsis hypotensive and septic shock Respiratory failure Antibiotics as noted with renal dosing. Ultrafiltration tomorrow Objective - Vital Signs/Intake and Output Vital Signs (last 24 hours): Temp Pulse Resp BP Pulse Ox 99.4 F 102 H 50 H 115/69 96 04/15/17 12:00 04/15/17 12:00 04/15/17 12:00 04/15/17 12:00 04/15/17 12:00 Intake and Output: 04/15/17 04/15/17 06:59 18:59 Intake Total 688 Output Total 1500 Balance -812 - Medications Medications: Current Medications Acetaminophen (Tylenol 650 Mg Supp) 650 mg WA Q4 PRN PRN Reason: Temp >101 Last Admin: 04/06/17 16:15 Dose: 650 mg Acetaminophen (Tylenol 650mg/20.3ml Solution Ud) 650 mg PO Q4 PRN PRN Reason: Temperature Last Admin: 04/14/17 15:08 Dose: 650 mg Albuterol/Ipratropium (Duoneb 3 Mg/0.5 Mg (3 Ml) Ud) 3 ml INH RQ4 PRN PRN Reason: Shortness of Breath Last Admin: 04/04/17 19:23 Dose: 3 ml Ascorbic Acid (Vitamin C 500 Mg Tab) 1,500 mg PO Q6 ODETTE Last Admin: 04/15/17 10:02 Dose: 1,500 mg Hydrocortisone Sodium Succinate (Solu-Cortef) 50 mg IV Q6H ODETTE Meropenem 500 mg/ Sodium (Chloride) 100 mls @ 100 mls/hr IVPB Q12 ODETTE PRN Reason: Protocol Last Admin: 04/15/17 10:15 Dose: 100 mls/hr Vancomycin HCl 250 mg/ Sodium (Chloride) 100 mls @ 100 mls/hr IVPB Q24H ODETTE PRN Reason: Protocol Last Admin: 04/15/17 10:44 Dose: Not Given Tobramycin Sulfate 60 mg/ (Sodium Chloride) 101.5 mls @ 100 mls/hr IV Q24H ODETTE Last Admin: 04/14/17 22:18 Dose: 100 mls/hr Norepinephrine Bitartrate 8 mg (/ Dextrose) 258 mls @ 4.83 mls/hr IV .Q24H ONE ; 2.5 MCG/MIN PRN Reason: Protocol Stop: 04/15/17 14:44 Last Titration: 04/15/17 00:00 Dose: 5 mcg/min, 9.67 mls/hr Metolazone (Zaroxolyn) [address] [facility] Last Admin: 04/15/17 10:03 Dose: 5 mg Pantoprazole Sodium (Protonix Susp) 40 mg NG DAILY [facility] Last Admin: 04/15/17 10:03 Dose: 40 mg Thiamine HCl (Vitamin B1 Tab) [address] [facility] Last Admin: 04/15/17 10:02 Dose: 200 mg - Labs Labs: 04/15/17 04:20 04/15/17 04:20 PT 15.8 Seconds (9.8-13.1) H 04/14/17 04:20 INR 1.4 (0.9-1.2) H 04/14/17 04:20 APTT 33.0 Seconds (25.6-37.1) 04/14/17 04:20 Assessment and Plan (1) Acute renal injury due to circulatory failure Status: Acute (2) Altered mental status Status: Acute (3) GI bleed Status: Acute (4) Hypotension Status: Deleted
--- NOTE | 2017-04-15 18:06 | CP.CCUPN ---
CCU Subjective - Physician Review Subjective (Free Text): More responsive and interactive today, temps down, now mostly 99-100F. Remains on Levophed. Other vitals and I/O's reviewed. Still oliguric, only approx 400ml last 24H. ROS: Unobtainable from intubated Patient. No other pertinent negs or positives on 10+ system review. PMSFH: All Nursing and physician documentation reviewed to date; no new pertinent info noted relevant to current medical problems. CXR: essentially unchanged: ETT position OK above sloane; elevated R hemidiaphragm persists, other mild interstitial changes seen near RML and R hilar area. ( my interp). MAJOR PROBLEMS: 1. +Kleb pneumoniae (ESBL) and E. faecalis Bacteremia 2. Septic Shock 2 #1 3. Acute Renal Failure / ATN 4. Acute Resp Failure, 2 pneumonia 5. Thrombocytopenia / Coagulopathy PLAN: 1. Levophed resumed today, Lactic acid levels improved. PRBCs infused yesterday. 2. Will continue steroids with Thiamine and Vit C. Repeat Procalcitonin level. 3. No MV weans today, with fevers and hypotension. Appears to be approaching consideration for Trach. 4. Consider changing lines. 5. Lasix / Zaroxlyn as tolerated, HD today as per Nephrology. 6. Ongoing enteral feeds as long as GI tract tolerates. Time spent with this patient did not overlap with any other provider's medical or critical care time. Additionally the code selected for the services rendered in this note includes the time spent: talking to the patients family, associated physicians and reviewing hospital data/results not listed here which extended to a total of 30 minutes. CCU Objective - Vital Signs / Intake & Output Intake and Output (Last 8hrs): Intake & Output 04/15/17 04/15/17 04/15/17 06:59 14:59 22:59 Intake Total 348 Output Total 1500 Balance -1152 Intake: IV 118 Intake, Piggyback 200 Oral 30 Output: Ultrafiltrate 1500 - Physical Exam Head: Positive for: Atraumatic, Normocephalic. Negative for: Tenderness, Contusion Pupils: Positive for: PERRL. Negative for: Sluggish, Non-Reactive Extroacular Muscles: Positive for: EOMI. Negative for: Gaze Palsy Conjunctiva: Positive for: Normal. Negative for: Injected, Icteric Mouth: Positive for: Dry (bloody) Neck: Negative for: JVD Respiratory/Chest: Positive for: Decreased Breath Sounds, Rales, Retracting, Rhonchi, Tachypneic. Negative for: Accessory Muscle Use, Wheezes Cardiovascular: Positive for: Regular Rate and Rhythm. Negative for: Murmurs, Rub Abdomen: Positive for: Distention, Normal Bowel Sounds. Negative for: Tenderness Upper Extremity: Positive for: Edema Lower Extremity: Positive for: Edema. Negative for: CALF TENDERNESS, NORMAL PULSES, Cyanosis Psychiatric: Positive for: Alert, Lethargic - Medications Active Medications: Active Medications Generic Name Dose Route Start Last Admin Trade Name Freq PRN Reason Stop Dose Admin Acetaminophen 650 mg 04/06/17 05:00 04/06/17 16:15 Tylenol 650 Mg Supp PA 650 mg Q4 PRN Administration Temp >101 Acetaminophen 650 mg 04/07/17 04:12 04/14/17 15:08 Tylenol 650mg/20.3ml Solution Ud PO 650 mg Q4 PRN Administration Temperature Albuterol/Ipratropium 3 ml 04/04/17 19:10 04/04/17 19:23 Duoneb 3 Mg/0.5 Mg (3 Ml) Ud INH 3 ml RQ4 PRN Administration Shortness of Breath Ascorbic Acid 1,500 mg 04/13/17 10:00 04/15/17 17:26 Vitamin C 500 Mg Tab PO 1,500 mg Q6 ODETTE Administration Hydrocortisone Sodium Succinate 50 mg 04/15/17 12:45 04/15/17 13:00 Solu-Cortef IV 50 mg Q6H ODETTE Administration Meropenem 500 mg/ Sodium 100 mls @ 100 mls/hr 04/06/17 10:45 04/15/17 10:15 Chloride IVPB 100 mls/hr Q12 ODETTE Administration Protocol Vancomycin HCl 250 mg/ Sodium 100 mls @ 100 mls/hr 04/11/17 09:45 04/15/17 10 :44 Chloride IVPB Not Given Q24H ODETTE Protocol Tobramycin Sulfate 60 mg/ 101.5 mls @ 100 mls/hr 04/11/17 18:30 04/14/17 22: 18 Sodium Chloride IV 100 mls/hr Q24H ODETTE Administration Fluconazole 50 mls @ 50 mls/hr 04/16/17 09:00 Diflucan Iv 100 Mg/50 Ml Ns IVPB DAILY [facility] Protocol Metolazone 5 mg 04/13/17 10:45 04/15/17 10:03 Zaroxolyn PO 5 mg DAILY [facility] Administration Pantoprazole Sodium 40 mg 04/14/17 10:30 04/15/17 10:03 Protonix Susp NG 40 mg DAILY [facility] Administration Thiamine HCl 200 mg 04/13/17 21:00 04/15/17 10:02 Vitamin B1 Tab PO 200 mg Q12H ODETTE Administration - Patient Studies Lab Studies: Microbiology Studies 04/12/17 09:27 Gram Stain - Final Trachasp Sputum Culture - Preliminary Pseudomonas Aeruginosa 04/12/17 11:05 Blood Culture - Preliminary Blood NO GROWTH AFTER 3 DAYS 04/12/17 19:00 Blood Culture - Preliminary Blood-Venous NO GROWTH AFTER 48 HOURS 04/12/17 20:57 Urine Culture - Final Urine[place] Yeast Species Lab Studies 04/15/17 04/15/17 04/15/17 Range/Units 14:56 09:10 05:24 WBC (4.8-10.8) K/uL RBC (3.80-5.20) Mil/uL Hgb (12.0-16.0) g/dL Hct (34.0-47.0) % MCV (81.0-99.0) fl MCH (27.0-31.0) pg MCHC (33.0-37.0) g/dL RDW (11.5-14.5) % Plt Count (130-400) K/uL MPV (7.2-11.7) fl Neut % (Auto) (50.0-75.0) % Lymph % (Auto) (20.0-40.0) % Preble % (Auto) (0.0-10.0) % Eos % (Auto) (0.0-4.0) % Baso % (Auto) (0.0-2.0) % Neut # (1.8-7.0) K/uL Lymph # (1.0-4.3) K/uL Preble # (0.0-0.8) K/uL Eos # (0.0-0.7) K/uL Baso # (0.0-0.2) K/uL Neutrophils % (Manual) (42-75) % Band Neutrophils % (0-2) % Lymphocytes % (Manual) (20-50) % Monocytes % (Manual) (0-10) % Eosinophils % (Manual) (0-7) % Metamyelocytes % (0-0) % Myelocytes % (0-0) % Nucleated RBC % (0-0) % Platelet Estimate (NORMAL) Large Platelets Giant Platelets Poikilocytosis (manual Anisocytosis (manual) Tear Drop Cells Ovalocytes pCO2 32 L (35-45) mm/Hg pO2 78 L (80-100) mm/Hg HCO3 23.5 (21-28) mmol/L ABG pH 7.44 (7.35-7.45) ABG Total CO2 22.7 (22-28) mmol/L ABG O2 Saturation 98.7 H (95-98) % ABG O2 Content 15.4 (15-23) ML/dL ABG Base Excess -1.8 (-2.0-3.0) mmol/L ABG Hemoglobin 11.5 L (11.7-17.4) g/dL ABG Carboxyhemoglobin 2.5 H (0.5-1.5) % POC ABG HHb (Measured) 1.2 (0.0-5.0) % ABG Methemoglobin 1.6 (0.0-3.0) % ABG O2 Capacity 15.6 L (16-24) mL/dL Domingo Test Yes A-a O2 Difference 167.0 mm/Hg Hgb O2 Saturation 94.7 L (95.0-98.0) % Vent Mode Prvc/ac Mechanical Rate 14 FiO2 40.0 % Tidal Volume 450 PEEP 5 Sodium (132-148) mmol/l Potassium (3.6-5.0) MMOL/L Chloride (98-107) mmol/L Carbon Dioxide (22-30) mmol/L Anion Gap (10-20) BUN (7-17) mg/dl Creatinine (0.7-1.2) mg/dl Est GFR ( Amer) Est GFR (Non-Af Amer) Random Glucose (65-105) mg/dL Lactic Acid (0.7-2.1) MMOL/L Calcium (8.4-10.2) mg/dL Total Bilirubin (0.2-1.3) mg/dl AST (14-36) U/L ALT (9-52) U/L Alkaline Phosphatase (38-126) U/L Total Protein (6.3-8.2) G/DL Albumin (3.5-5.0) g/dL Globulin (2.2-3.9) gm/dL Albumin/Globulin Ratio (1.0-2.1) Vancomycin Trough 12.5 H (5.0-10.0) ug/mL Random Vancomycin 12.0 ug/mL Hepatitis C Antibody (NEGATIVE) Blood Type Antibody Screen Crossmatch BBK History Checked 04/15/17 04/15/17 04/15/17 Range/Units 04:20 04:20 04:20 WBC 13.9 H D (4.8-10.8) K/uL RBC 4.07 (3.80-5.20) Mil/uL Hgb 10.9 L D (12.0-16.0) g/dL Hct 33.7 L (34.0-47.0) % MCV 82.7 (81.0-99.0) fl MCH 26.9 L (27.0-31.0) pg MCHC 32.5 L (33.0-37.0) g/dL RDW 16.4 H (11.5-14.5) % Plt Count 75 L (130-400) K/uL MPV 9.4 (7.2-11.7) fl Neut % (Auto) 95.3 H (50.0-75.0) % Lymph % (Auto) 4.1 L (20.0-40.0) % Preble % (Auto) 0.3 (0.0-10.0) % Eos % (Auto) 0.1 (0.0-4.0) % Baso % (Auto) 0.2 (0.0-2.0) % Neut # 13.2 H (1.8-7.0) K/uL Lymph # 0.6 L (1.0-4.3) K/uL Preble # 0.0 (0.0-0.8) K/uL Eos # 0.0 (0.0-0.7) K/uL Baso # 0.0 (0.0-0.2) K/uL Neutrophils % (Manual) 62 (42-75) % Band Neutrophils % 12 H* (0-2) % Lymphocytes % (Manual) 3 L (20-50) % Monocytes % (Manual) 16 H (0-10) % Eosinophils % (Manual) 1 (0-7) % Metamyelocytes % 2 H (0-0) % Myelocytes % 4 H (0-0) % Nucleated RBC % 1 H (0-0) % Platelet Estimate Decreased L (NORMAL) Large Platelets Present Giant Platelets Present Poikilocytosis (manual Slight Anisocytosis (manual) Moderate Tear Drop Cells Slight Ovalocytes Slight pCO2 (35-45) mm/Hg pO2 (80-100) mm/Hg HCO3 (21-28) mmol/L ABG pH (7.35-7.45) ABG Total CO2 (22-28) mmol/L ABG O2 Saturation (95-98) % ABG O2 Content (15-23) ML/dL ABG Base Excess (-2.0-3.0) mmol/L ABG Hemoglobin (11.7-17.4) g/dL ABG Carboxyhemoglobin (0.5-1.5) % POC ABG HHb (Measured) (0.0-5.0) % ABG Methemoglobin (0.0-3.0) % ABG O2 Capacity (16-24) mL/dL Domingo Test A-a O2 Difference mm/Hg Hgb O2 Saturation (95.0-98.0) % Vent Mode Mechanical Rate FiO2 % Tidal Volume PEEP Sodium 136 (132-148) mmol/l Potassium 3.0 L (3.6-5.0) MMOL/L Chloride 102 (98-107) mmol/L Carbon Dioxide 23 (22-30) mmol/L Anion Gap 13 (10-20) BUN 17 (7-17) mg/dl Creatinine 1.3 H (0.7-1.2) mg/dl Est GFR ( Amer) 52 Est GFR (Non-Af Amer) 43 Random Glucose 123 H (65-105) mg/dL Lactic Acid 1.7 (0.7-2.1) MMOL/L Calcium 6.2 L (8.4-10.2) mg/dL Total Bilirubin 1.5 H (0.2-1.3) mg/dl AST 30 (14-36) U/L ALT 54 H D (9-52) U/L Alkaline Phosphatase 263 H D (38-126) U/L Total Protein 5.0 L (6.3-8.2) G/DL Albumin 2.3 L (3.5-5.0) g/dL Globulin 2.6 (2.2-3.9) gm/dL Albumin/Globulin Ratio 0.9 L (1.0-2.1) Vancomycin Trough (5.0-10.0) ug/mL Random Vancomycin ug/mL Hepatitis C Antibody (NEGATIVE) Blood Type Antibody Screen Crossmatch BBK History Checked 04/14/17 04/14/17 Range/Units 20:00 08:18 WBC (4.8-10.8) K/uL RBC (3.80-5.20) Mil/uL Hgb (12.0-16.0) g/dL Hct (34.0-47.0) % MCV (81.0-99.0) fl MCH (27.0-31.0) pg MCHC (33.0-37.0) g/dL RDW (11.5-14.5) % Plt Count (130-400) K/uL MPV (7.2-11.7) fl Neut % (Auto) (50.0-75.0) % Lymph % (Auto) (20.0-40.0) % Preble % (Auto) (0.0-10.0) % Eos % (Auto) (0.0-4.0) % Baso % (Auto) (0.0-2.0) % Neut # (1.8-7.0) K/uL Lymph # (1.0-4.3) K/uL Preble # (0.0-0.8) K/uL Eos # (0.0-0.7) K/uL Baso # (0.0-0.2) K/uL Neutrophils % (Manual) (42-75) % Band Neutrophils % (0-2) % Lymphocytes % (Manual) (20-50) % Monocytes % (Manual) (0-10) % Eosinophils % (Manual) (0-7) % Metamyelocytes % (0-0) % Myelocytes % (0-0) % Nucleated RBC % (0-0) % Platelet Estimate (NORMAL) Large Platelets Giant Platelets Poikilocytosis (manual Anisocytosis (manual) Tear Drop Cells Ovalocytes pCO2 (35-45) mm/Hg pO2 (80-100) mm/Hg HCO3 (21-28) mmol/L ABG pH (7.35-7.45) ABG Total CO2 (22-28) mmol/L ABG O2 Saturation (95-98) % ABG O2 Content (15-23) ML/dL ABG Base Excess (-2.0-3.0) mmol/L ABG Hemoglobin (11.7-17.4) g/dL ABG Carboxyhemoglobin (0.5-1.5) % POC ABG HHb (Measured) (0.0-5.0) % ABG Methemoglobin (0.0-3.0) % ABG O2 Capacity (16-24) mL/dL Domingo Test A-a O2 Difference mm/Hg Hgb O2 Saturation (95.0-98.0) % Vent Mode Mechanical Rate FiO2 % Tidal Volume PEEP Sodium (132-148) mmol/l Potassium (3.6-5.0) MMOL/L Chloride (98-107) mmol/L Carbon Dioxide (22-30) mmol/L Anion Gap (10-20) BUN (7-17) mg/dl Creatinine (0.7-1.2) mg/dl Est GFR ( Amer) Est GFR (Non-Af Amer) Random Glucose (65-105) mg/dL Lactic Acid (0.7-2.1) MMOL/L Calcium (8.4-10.2) mg/dL Total Bilirubin (0.2-1.3) mg/dl AST (14-36) U/L ALT (9-52) U/L Alkaline Phosphatase (38-126) U/L Total Protein (6.3-8.2) G/DL Albumin (3.5-5.0) g/dL Globulin (2.2-3.9) gm/dL Albumin/Globulin Ratio (1.0-2.1) Vancomycin Trough (5.0-10.0) ug/mL Random Vancomycin ug/mL Hepatitis C Antibody Negative (NEGATIVE) Blood Type A POSITIVE Antibody Screen Negative Crossmatch See Detail BBK History Checked Patient has bt Laboratory Results - last 24 hr 04/14/17 04/14/17 04/15/17 08:18 20:00 04:20 WBC 13.9 H D RBC 4.07 Hgb 10.9 L D Hct 33.7 L MCV 82.7 MCH 26.9 L MCHC 32.5 L RDW 16.4 H Plt Count 75 L MPV 9.4 Neut % (Auto) 95.3 H Lymph % (Auto) 4.1 L Preble % (Auto) 0.3 Eos % (Auto) 0.1 Baso % (Auto) 0.2 Neut # 13.2 H Lymph # 0.6 L Preble # 0.0 Eos # 0.0 Baso # 0.0 Neutrophils % (Manual) 62 Band Neutrophils % 12 H* Lymphocytes % (Manual) 3 L Monocytes % (Manual) 16 H Eosinophils % (Manual) 1 Metamyelocytes % 2 H Myelocytes % 4 H Nucleated RBC % 1 H Platelet Estimate Decreased L Large Platelets Present Giant Platelets Present Poikilocytosis (manual Slight Anisocytosis (manual) Moderate Tear Drop Cells Slight Ovalocytes Slight pCO2 pO2 HCO3 ABG pH ABG Total CO2 ABG O2 Saturation ABG O2 Content ABG Base Excess ABG Hemoglobin ABG Carboxyhemoglobin POC ABG HHb (Measured) ABG Methemoglobin ABG O2 Capacity Domingo Test A-a O2 Difference Hgb O2 Saturation Vent Mode Mechanical Rate FiO2 Tidal Volume PEEP Sodium Potassium Chloride Carbon Dioxide Anion Gap BUN Creatinine Est GFR ( Amer) Est GFR (Non-Af Amer) Random Glucose Lactic Acid Calcium Total Bilirubin AST ALT Alkaline Phosphatase Total Protein Albumin Globulin Albumin/Globulin Ratio Vancomycin Trough Random Vancomycin Hepatitis C Antibody Negative Blood Type A POSITIVE Antibody Screen Negative Crossmatch See Detail BBK History Checked Patient has bt 04/15/17 04/15/17 04/15/17 04:20 04:20 05:24 WBC RBC Hgb Hct MCV MCH MCHC RDW Plt Count MPV Neut % (Auto) Lymph % (Auto) Preble % (Auto) Eos % (Auto) Baso % (Auto) Neut # Lymph # Preble # Eos # Baso # Neutrophils % (Manual) Band Neutrophils % Lymphocytes % (Manual) Monocytes % (Manual) Eosinophils % (Manual) Metamyelocytes % Myelocytes % Nucleated RBC % Platelet Estimate Large Platelets Giant Platelets Poikilocytosis (manual Anisocytosis (manual) Tear Drop Cells Ovalocytes pCO2 32 L pO2 78 L HCO3 23.5 ABG pH 7.44 ABG Total CO2 22.7 ABG O2 Saturation 98.7 H ABG O2 Content 15.4 ABG Base Excess -1.8 ABG Hemoglobin 11.5 L ABG Carboxyhemoglobin 2.5 H POC ABG HHb (Measured) 1.2 ABG Methemoglobin 1.6 ABG O2 Capacity 15.6 L Domingo Test Yes A-a O2 Difference 167.0 Hgb O2 Saturation 94.7 L Vent Mode Prvc/ac Mechanical Rate 14 FiO2 40.0 Tidal Volume 450 PEEP 5 Sodium 136 Potassium 3.0 L Chloride 102 Carbon Dioxide 23 Anion Gap 13 BUN 17 Creatinine 1.3 H Est GFR ( Amer) 52 Est GFR (Non-Af Amer) 43 Random Glucose 123 H Lactic Acid 1.7 Calcium 6.2 L Total Bilirubin 1.5 H AST 30 ALT 54 H D Alkaline Phosphatase 263 H D Total Protein 5.0 L Albumin 2.3 L Globulin 2.6 Albumin/Globulin Ratio 0.9 L Vancomycin Trough Random Vancomycin Hepatitis C Antibody Blood Type Antibody Screen Crossmatch BBK History Checked 04/15/17 04/15/17 09:10 14:56 WBC RBC Hgb Hct MCV MCH MCHC RDW Plt Count MPV Neut % (Auto) Lymph % (Auto) Preble % (Auto) Eos % (Auto) Baso % (Auto) Neut # Lymph # Preble # Eos # Baso # Neutrophils % (Manual) Band Neutrophils % Lymphocytes % (Manual) Monocytes % (Manual) Eosinophils % (Manual) Metamyelocytes % Myelocytes % Nucleated RBC % Platelet Estimate Large Platelets Giant Platelets Poikilocytosis (manual Anisocytosis (manual) Tear Drop Cells Ovalocytes pCO2 pO2 HCO3 ABG pH ABG Total CO2 ABG O2 Saturation ABG O2 Content ABG Base Excess ABG Hemoglobin ABG Carboxyhemoglobin POC ABG HHb (Measured) ABG Methemoglobin ABG O2 Capacity Domingo Test A-a O2 Difference Hgb O2 Saturation Vent Mode Mechanical Rate FiO2 Tidal Volume PEEP Sodium Potassium Chloride Carbon Dioxide Anion Gap BUN Creatinine Est GFR ( Amer) Est GFR (Non-Af Amer) Random Glucose Lactic Acid Calcium Total Bilirubin AST ALT Alkaline Phosphatase Total Protein Albumin Globulin Albumin/Globulin Ratio Vancomycin Trough 12.5 H Random Vancomycin 12.0 Hepatitis C Antibody Blood Type Antibody Screen Crossmatch BBK History Checked Fingerstick Blood Sugar Results: 221 Review of Systems - Review of Systems Systems not reviewed;Unavailable: Intubated Critical Care Progress Note - Ventilator Checklist Head of Bed 30 Degrees: Yes Daily Sedation Vacation: Yes Daily Assessment of Readiness to Wean: Yes Daily Spontaneous Breathing Trial: Yes PUD Prophalyxis: Yes DVT Prophylaxis: Yes Oral Care with Chlorhexidine Gluconate {CHG}: Yes - Vent Settings MODE:: ASSIST CONTROL TIDAL VOLUME:: 450 RESP RATE:: 12 FIO2:: 40 PEEP:: 5 - Extremities/Vascular Does the Patient have a Central Venous Catheter?: Yes Insertion Site: Femoral Vein Does the Patient need a Central Venous Catheter?: Yes Does the Patient have a Overton Catheter?: Yes Does the Patient need a Overton Catheter?: Yes Catheter Insertion Criteria: Need for accurate measurement of output in critically ill patient - Restraints Justification for Restraints: High risk for self extubation, High risk for removing IV access, High risk for harming self - Prophylaxis GI Prophylaxis GI: PPI - Prophylaxis DVT Prophylaxis DVT: SCDs
[2017-04-15] MEDS: Tobramycin inj 60 MG in Sodium Chloride 0.9% 100 ML IV SCH (18:22)
[2017-04-15] MEDS: Acetaminophen 650mg/20.3ml solution UD PO PRN (20:27)
[2017-04-16 05:25] LABS: ABG ALLEN TEST YES; ABG MECHANICAL RATE 14; ARTERIAL BLOOD GAS HCO3 20.9 mmol/L (21-28); ARTERIAL BLOOD GAS O2 CAPACITY 14.9 mL/dL (16-24); ARTERIAL BLOOD GAS O2 CONTENT 14.8 ML/dL (15-23); ARTERIAL BLOOD GAS PH 7.32 (7.35-7.45); ARTERIAL BLOOD GAS PO2 81 mm/Hg (80-100); ARTERIAL BLOOD HGB O2 SAT 95.8 % (95.0-98.0); ATERIAL BLOOD GAS PEEP 5; CARBOXYHEMOGLOBIN 2.4 % (0.5-1.5); HHB 0.5 % (0.0-5.0); METHEMOGLOBIN 1.2 % (0.0-3.0)
[2017-04-16] MEDS: Hydrocortisone Succinat 250 MG vial IV SCH ×3 (05:47→20:02)
[2017-04-16 06:17] LABS: HEMATOCRIT 32.6 % (34.0-47.0); MEAN CELL VOLUME 83.8 fl (81.0-99.0); MEAN CORPUSCULAR HEMOGLOBIN 26.9 pg (27.0-31.0); MEAN CORPUSCULAR HGB CONC 32.1 g/dL (33.0-37.0); RED CELL DISTRIBUTION WIDTH 17.1 % (11.5-14.5); WHITE BLOOD COUNT 16.3 K/uL (4.8-10.8)
[2017-04-16 06:39] LABS: ALB/GLOB RATIO 0.9 (1.0-2.1); BILIRUBIN,TOTAL 1.2 mg/dl (0.2-1.3); CALCIUM 6.4 mg/dL (8.4-10.2); POTASSIUM 2.6 MMOL/L (3.6-5.0); TOTAL PROTEIN 4.7 G/DL (6.3-8.2)
--- NOTE | 2017-04-16 09:33 | RAD ---
HISTORY: vented COMPARISON: Portable chest 04/15/2017. FINDINGS: Rest of venous dialysis catheter, and endotracheal tube and nasogastric tube do not appear simply changed in position. LUNGS: Stable medial basilar airspace disease identified in remains mild with interval left basilar airspace disease slightly increased. PLEURA: No significant pleural effusion identified, no pneumothorax apparent. CARDIOVASCULAR: Marginal pulmonary venous congestion is appreciated once again. OSSEOUS STRUCTURES: No significant abnormalities. VISUALIZED UPPER ABDOMEN: Normal. OTHER FINDINGS: None. IMPRESSION: Slight increase in medial left basilar airspace disease with right basilar airspace disease unchanged. Limited pulmonary venous congestion again evident without change.
[2017-04-16] MEDS ORDERED: Vancomycin 250 MG in Sodium Chloride 0.9% 100 ML IVPB ONE (10:00)
[2017-04-16] MEDS ORDERED: Potassium Chloride 20 mEq/15 ml LIQ UD PO ONE (10:15)
[2017-04-16] MEDS ORDERED: Albumin Human 25% (12.5 gm/50 ml) IV SCH (10:30)
--- NOTE | 2017-04-16 10:30 | CP.PCM.PN ---
Subjective - Date & Time of Evaluation Date of Evaluation: 04/16/17 Time of Evaluation: 10:27 - Subjective Subjective: seen on HD Objective - Vital Signs/Intake and Output Vital Signs (last 24 hours): Temp Pulse Resp BP Pulse Ox 97.1 F L 112 H 15 113/68 99 04/16/17 08:00 04/16/17 08:00 04/16/17 06:58 04/16/17 08:00 04/16/17 08:00 Intake and Output: 04/16/17 04/16/17 06:59 18:59 Intake Total 1010 Output Total 350 Balance 660 - Medications Medications: Current Medications Acetaminophen (Tylenol 650 Mg Supp) 650 mg MN Q4 PRN PRN Reason: Temp >101 Last Admin: 04/06/17 16:15 Dose: 650 mg Acetaminophen (Tylenol 650mg/20.3ml Solution Ud) 650 mg PO Q4 PRN PRN Reason: Temperature Last Admin: 04/15/17 20:27 Dose: 650 mg Albumin Human (Albumin Human 25% (12.5 Gm/50 Ml)) 50 gm IV Q1H [facility] Stop: 04/16/17 17:31 Albuterol/Ipratropium (Duoneb 3 Mg/0.5 Mg (3 Ml) Ud) 3 ml INH RQ4 PRN PRN Reason: Shortness of Breath Last Admin: 04/04/17 19:23 Dose: 3 ml Ascorbic Acid (Vitamin C 500 Mg Tab) 1,500 mg PO Q6 ODETTE Last Admin: 04/16/17 04:13 Dose: 1,500 mg Heparin Sodium (Porcine) (Heparin) 5,000 units SC Q12 ODETTE PRN Reason: Protocol Hydrocortisone Sodium Succinate (Solu-Cortef) 50 mg IV Q6H [facility] Last Admin: 04/16/17 05:47 Dose: 50 mg Meropenem 500 mg/ Sodium (Chloride) 100 mls @ 100 mls/hr IVPB Q12 ODETTE PRN Reason: Protocol Last Admin: 04/15/17 20:26 Dose: 100 mls/hr Vancomycin HCl 250 mg/ Sodium (Chloride) 100 mls @ 100 mls/hr IVPB Q24H ODETTE PRN Reason: Protocol Last Admin: 04/15/17 10:44 Dose: Not Given Tobramycin Sulfate 60 mg/ (Sodium Chloride) 101.5 mls @ 100 mls/hr IV Q24H ODETTE Last Admin: 04/15/17 18:22 Dose: 100 mls/hr Fluconazole (Diflucan Iv 100 Mg/50 Ml Ns) 50 mls @ 50 mls/hr IVPB DAILY ODETTE PRN Reason: Protocol Norepinephrine Bitartrate 8 mg (/ Dextrose) 258 mls @ 4.83 mls/hr IV .Q24H ONE ; 2.5 MCG/MIN PRN Reason: Protocol Stop: 04/16/17 15:59 Last Admin: 04/15/17 22:34 Dose: Not Given Vancomycin HCl 250 mg/ Sodium (Chloride) 100 mls @ 100 mls/hr IVPB ONCE ONE PRN Reason: Protocol Stop: 04/16/17 10:59 Phenylephrine HCl 10 mg/ (Sodium Chloride) 251 mls @ 30.12 mls/hr IV .Q8H20M ODETTE; 20 MCG/MIN PRN Reason: Protocol Metolazone (Zaroxolyn) 5 mg PO DAILY [facility] Last Admin: 04/15/17 10:03 Dose: 5 mg Pantoprazole Sodium (Protonix Susp) 40 mg NG DAILY [facility] Last Admin: 04/15/17 10:03 Dose: 40 mg Thiamine HCl (Vitamin B1 Tab) 200 mg PO Q12H [facility] Last Admin: 04/15/17 20:26 Dose: 200 mg - Labs Labs: 04/16/17 05:30 04/16/17 05:30 PT 15.8 Seconds (9.8-13.1) H 04/14/17 04:20 INR 1.4 (0.9-1.2) H 04/14/17 04:20 APTT 33.0 Seconds (25.6-37.1) 04/14/17 04:20 - Constitutional Appears: No Acute Distress - Head Exam Head Exam: ATRAUMATIC - Eye Exam Additional comments: anicteric - Neck Exam Neck Exam: Normal Inspection - Respiratory Exam Additional comments: coarse bs - Cardiovascular Exam Cardiovascular Exam: +S1, +S2 - GI/Abdominal Exam Additional comments: soft distended - Extremities Exam Additional comments: 2+ edema - Neurological Exam Additional comments: opens eyes - Psychiatric Exam Psychiatric exam: Flat Affect - Skin Skin Exam: Normal Color Assessment and Plan - Assessment and Plan (Free Text) Assessment: ARF/ VDRF / Hypoxic respiratory failure/ Sepsis/ Anemia/ Hypokalemia plan seen on IUF - 2-2.5 kg uf. will IUF again today discussed / intensivisit - replete K and recheck this afternoon to see if further needed dose vanc by level also recc check tobramycin level as well - discuss w/ id
[2017-04-16] MEDS: Albumin Human 25% (12.5 gm/50 ml) IV SCH ×8 (11:54→22:05)
--- NOTE | 2017-04-16 12:40 | CP.CCUPN ---
CCU Subjective - Physician Review Events Since Last Encounter (Free Text): 04/16/17 12:38 alert and following some commands on vent. CCU Objective - Vital Signs / Intake & Output Vital Signs (Last 4 hours): Vital Signs Temp Pulse Resp BP Pulse Ox 04/16/17 12:00 96.6 F L 113 H 98/65 L 98 04/16/17 11:05 108 H 96/62 L 04/16/17 11:00 108 H 14 96/62 L 99 04/16/17 10:00 106 H 14 115/61 99 Intake and Output (Last 8hrs): Intake & Output 04/15/17 04/16/17 04/16/17 22:59 06:59 14:59 Intake Total 851 632 50 Output Total 900 350 Balance -49 282 50 Weight 197 lb 11.2 oz Intake: IV 151 22 Intake, Piggyback 300 50 Oral 70 Tube Feeding 280 560 Free Water Flush 50 50 Output: Urine 600 350 Urethral (Castillo) 600 350 Stool 300 Other: # Bowel Movements 250 - Physical Exam Head: Positive for: Atraumatic, Normocephalic. Negative for: Tenderness, Contusion Pupils: Positive for: PERRL. Negative for: Sluggish, Non-Reactive Extroacular Muscles: Positive for: EOMI. Negative for: Gaze Palsy Conjunctiva: Positive for: Normal. Negative for: Injected, Icteric Mouth: Positive for: Dry (bloody) Neck: Negative for: JVD Respiratory/Chest: Positive for: Decreased Breath Sounds, Rales, Retracting, Rhonchi, Tachypneic. Negative for: Accessory Muscle Use, Wheezes Cardiovascular: Positive for: Tachycardic. Negative for: Murmurs, Rub Abdomen: Positive for: Distention, Normal Bowel Sounds. Negative for: Tenderness Upper Extremity: Positive for: Edema Lower Extremity: Positive for: Edema. Negative for: CALF TENDERNESS, NORMAL PULSES, Cyanosis Psychiatric: Positive for: Alert, Oriented x 3, Normal Insight - Medications Active Medications: Active Medications Generic Name Dose Route Start Last Admin Trade Name Freq PRN Reason Stop Dose Admin Acetaminophen 650 mg 04/06/17 05:00 04/06/17 16:15 Tylenol 650 Mg Supp [place] 650 mg Q4 PRN Administration Temp >101 Acetaminophen 650 mg 04/07/17 04:12 04/15/17 20:27 Tylenol 650mg/20.3ml Solution Ud PO 650 mg Q4 PRN Administration Temperature Albumin Human 12.5 gm 04/16/17 12:00 04/16/17 11:54 Albumin Human 25% (12.5 Gm/50 Ml) IV 04/16/17 19:01 12.5 gm Q1 ODETTE Administration Albuterol/Ipratropium 3 ml 04/04/17 19:10 04/04/17 19:23 Duoneb 3 Mg/0.5 Mg (3 Ml) Ud INH 3 ml RQ4 PRN Administration Shortness of Breath Ascorbic Acid 1,500 mg 04/13/17 10:00 04/16/17 04:13 Vitamin C 500 Mg Tab PO 1,500 mg Q6 ODETTE Administration Heparin Sodium (Porcine) 5,000 units 04/16/17 10:30 04/16/17 11:57 Heparin SC 5,000 units Q12 ODETTE Administration Protocol Hydrocortisone Sodium Succinate 50 mg 04/15/17 12:45 04/16/17 05:47 Solu-Cortef IV 50 mg Q6H ODETTE Administration Meropenem 500 mg/ Sodium 100 mls @ 100 mls/hr 04/06/17 10:45 04/15/17 20:26 Chloride IVPB 100 mls/hr Q12 ODETTE Administration Protocol Vancomycin HCl 250 mg/ Sodium 100 mls @ 100 mls/hr 04/11/17 09:45 04/15/17 10 :44 Chloride IVPB Not Given Q24H ODETTE Protocol Tobramycin Sulfate 60 mg/ 101.5 mls @ 100 mls/hr 04/11/17 18:30 04/15/17 18: 22 Sodium Chloride IV 100 mls/hr Q24H ODETTE Administration Fluconazole 50 mls @ 50 mls/hr 04/16/17 09:00 Diflucan Iv 100 Mg/50 Ml Ns IVPB DAILY ODETTE Protocol Phenylephrine HCl 10 mg/ 251 mls @ 30.12 mls/hr 04/16/17 10:30 04/16/17 11:05 Sodium Chloride IV 20 mcg/min .Q8H20M ODETTE 30.12 mls/hr Protocol Administration 20 MCG/MIN Metolazone 5 mg 04/13/17 10:45 04/15/17 10:03 Zaroxolyn PO 5 mg DAILY ODETTE Administration Pantoprazole Sodium 40 mg 04/14/17 10:30 04/15/17 10:03 Protonix Susp NG 40 mg DAILY ODETTE Administration Thiamine HCl 200 mg 04/13/17 21:00 04/15/17 20:26 Vitamin B1 Tab PO 200 mg Q12H ODETTE Administration - Patient Studies Lab Studies: Microbiology Studies 04/12/17 11:05 Blood Culture - Preliminary Blood NO GROWTH AFTER 4 DAYS 04/12/17 09:27 Gram Stain - Final Trachasp Sputum Culture - Final Pseudomonas Aeruginosa 04/12/17 19:00 Blood Culture - Preliminary Blood-Venous NO GROWTH AFTER 3 DAYS Lab Studies 04/16/17 04/16/17 04/16/17 Range/Units 05:30 05:30 05:30 WBC 16.3 H (4.8-10.8) K/uL RBC 3.89 (3.80-5.20) Mil/uL Hgb 10.5 L (12.0-16.0) g/dL Hct 32.6 L (34.0-47.0) % MCV 83.8 (81.0-99.0) fl MCH 26.9 L (27.0-31.0) pg MCHC 32.1 L (33.0-37.0) g/dL RDW 17.1 H (11.5-14.5) % Plt Count 68 L (130-400) K/uL pCO2 (35-45) mm/Hg pO2 (80-100) mm/Hg HCO3 (21-28) mmol/L ABG pH (7.35-7.45) ABG Total CO2 (22-28) mmol/L ABG O2 Saturation (95-98) % ABG O2 Content (15-23) ML/dL ABG Base Excess (-2.0-3.0) mmol/L ABG Hemoglobin (11.7-17.4) g/dL ABG Carboxyhemoglobin (0.5-1.5) % POC ABG HHb (Measured) (0.0-5.0) % ABG Methemoglobin (0.0-3.0) % ABG O2 Capacity (16-24) mL/dL Domingo Test A-a O2 Difference mm/Hg Hgb O2 Saturation (95.0-98.0) % Mechanical Rate FiO2 % Tidal Volume PEEP Sodium 139 (132-148) mmol/l Potassium 2.6 L (3.6-5.0) MMOL/L Chloride 107 (98-107) mmol/L Carbon Dioxide 22 (22-30) mmol/L Anion Gap 13 (10-20) BUN 23 H (7-17) mg/dl Creatinine 1.5 H (0.7-1.2) mg/dl Est GFR ( Amer) 44 Est GFR (Non-Af Amer) 36 Random Glucose 192 H (65-105) mg/dL Calcium 6.4 L (8.4-10.2) mg/dL Total Bilirubin 1.2 (0.2-1.3) mg/dl AST 29 (14-36) U/L ALT 51 (9-52) U/L Alkaline Phosphatase 297 H (38-126) U/L Total Protein 4.7 L (6.3-8.2) G/DL Albumin 2.2 L (3.5-5.0) g/dL Globulin 2.5 (2.2-3.9) gm/dL Albumin/Globulin Ratio 0.9 L (1.0-2.1) Random Vancomycin 10.2 ug/mL Hepatitis C Antibody (NEGATIVE) 04/16/17 04/15/17 04/14/17 Range/Units 05:11 14:56 20:00 WBC (4.8-10.8) K/uL RBC (3.80-5.20) Mil/uL Hgb (12.0-16.0) g/dL Hct (34.0-47.0) % MCV (81.0-99.0) fl MCH (27.0-31.0) pg MCHC (33.0-37.0) g/dL RDW (11.5-14.5) % Plt Count (130-400) K/uL pCO2 40 (35-45) mm/Hg pO2 81 (80-100) mm/Hg HCO3 20.9 L (21-28) mmol/L ABG pH 7.32 L (7.35-7.45) ABG Total CO2 21.8 L (22-28) mmol/L ABG O2 Saturation 99.5 H (95-98) % ABG O2 Content 14.8 L (15-23) ML/dL ABG Base Excess -5.1 L (-2.0-3.0) mmol/L ABG Hemoglobin 10.9 L (11.7-17.4) g/dL ABG Carboxyhemoglobin 2.4 H (0.5-1.5) % POC ABG HHb (Measured) 0.5 (0.0-5.0) % ABG Methemoglobin 1.2 (0.0-3.0) % ABG O2 Capacity 14.9 L (16-24) mL/dL Domingo Test Yes A-a O2 Difference 154.0 mm/Hg Hgb O2 Saturation 95.8 (95.0-98.0) % Mechanical Rate 14 FiO2 40.0 % Tidal Volume 450 PEEP 5 Sodium (132-148) mmol/l Potassium (3.6-5.0) MMOL/L Chloride (98-107) mmol/L Carbon Dioxide (22-30) mmol/L Anion Gap (10-20) BUN (7-17) mg/dl Creatinine (0.7-1.2) mg/dl Est GFR ( Amer) Est GFR (Non-Af Amer) Random Glucose (65-105) mg/dL Calcium (8.4-10.2) mg/dL Total Bilirubin (0.2-1.3) mg/dl AST (14-36) U/L ALT (9-52) U/L Alkaline Phosphatase (38-126) U/L Total Protein (6.3-8.2) G/DL Albumin (3.5-5.0) g/dL Globulin (2.2-3.9) gm/dL Albumin/Globulin Ratio (1.0-2.1) Random Vancomycin 12.0 ug/mL Hepatitis C Antibody Negative (NEGATIVE) Laboratory Results - last 24 hr 04/14/17 04/15/17 04/16/17 20:00 14:56 05:11 WBC RBC Hgb Hct MCV MCH MCHC RDW Plt Count pCO2 40 pO2 81 HCO3 20.9 L ABG pH 7.32 L ABG Total CO2 21.8 L ABG O2 Saturation 99.5 H ABG O2 Content 14.8 L ABG Base Excess -5.1 L ABG Hemoglobin 10.9 L ABG Carboxyhemoglobin 2.4 H POC ABG HHb (Measured) 0.5 ABG Methemoglobin 1.2 ABG O2 Capacity 14.9 L Domingo Test Yes A-a O2 Difference 154.0 Hgb O2 Saturation 95.8 Mechanical Rate 14 FiO2 40.0 Tidal Volume 450 PEEP 5 Sodium Potassium Chloride Carbon Dioxide Anion Gap BUN Creatinine Est GFR ( Amer) Est GFR (Non-Af Amer) Random Glucose Calcium Total Bilirubin AST ALT Alkaline Phosphatase Total Protein Albumin Globulin Albumin/Globulin Ratio Random Vancomycin 12.0 Hepatitis C Antibody Negative 04/16/17 04/16/17 04/16/17 05:30 05:30 05:30 WBC 16.3 H RBC 3.89 Hgb 10.5 L Hct 32.6 L MCV 83.8 MCH 26.9 L MCHC 32.1 L RDW 17.1 H Plt Count 68 L pCO2 pO2 HCO3 ABG pH ABG Total CO2 ABG O2 Saturation ABG O2 Content ABG Base Excess ABG Hemoglobin ABG Carboxyhemoglobin POC ABG HHb (Measured) ABG Methemoglobin ABG O2 Capacity Domingo Test A-a O2 Difference Hgb O2 Saturation Mechanical Rate FiO2 Tidal Volume PEEP Sodium 139 Potassium 2.6 L Chloride 107 Carbon Dioxide 22 Anion Gap 13 BUN 23 H Creatinine 1.5 H Est GFR ( Amer) 44 Est GFR (Non-Af Amer) 36 Random Glucose 192 H Calcium 6.4 L Total Bilirubin 1.2 AST 29 ALT 51 Alkaline Phosphatase 297 H Total Protein 4.7 L Albumin 2.2 L Globulin 2.5 Albumin/Globulin Ratio 0.9 L Random Vancomycin 10.2 Hepatitis C Antibody Fingerstick Blood Sugar Results: 221 Review of Systems - Review of Systems Systems not reviewed;Unavailable: Intubated Critical Care Progress Note - Ventilator Checklist Head of Bed 30 Degrees: Yes Daily Sedation Vacation: Yes Daily Assessment of Readiness to Wean: Yes Daily Spontaneous Breathing Trial: Yes PUD Prophalyxis: Yes DVT Prophylaxis: Yes Assessment/Plan (1) Acute renal failure (ARF) Assessment and plan: 51yo F. PMHx ovarian CA s/p RODRIGO/BSO (in remission since 2014), SB enteritis s/p ex-lap with WILNER (01/04/17) which was c/b VAP, ascites with drain placement and post-op PE (IVC filter, now on Xarelto), right hydronephrosis with ureteral stent placement (now removed). p/w acute renal failure with severe metabolic acidosis, oozing blood from oropharynx and possible traumatic castillo placement. Dialysis started (04/04). Neuro: alert and following commands Pulm: intubated for airway protection with encephalopathy, now on PRVC. starting PS trials post dialysis. CV: hypotensive during dialysis, added albumin drip and phenylephrine during dialysis. Hem: anemia, and thrombocytopenia, stabilizing low. Renal: acute kidney injury, on dialysis. Currently removing fluid to control third spacing/edema. Continue Metolazone. Endo: no acute issues GI: NPO, Vital@70. GI - Dr. Nixon ID: septic shock from gram negative bacteremia ESBL Kelbsiella, E. Faecalis ( blood), pseudomonas (trach asp), yeast (urine). Continue Meropenem, Fluconazole , Tobramycin, and Vancomycin. DVT proph - SCD's, holding a/c with current oropharyngeal bleeding and severe thrombocytopenia GI proph - protonix po castillo for strict I/O's during acute illness Code status - full code Right femoral TLC (04/04) Left IJ Shiley (04/04) Critical Care Time spent 40 minutes Multi-disciplinary rounds were performed with house staff, nursing, speech therapy, respiratory therapy, pharmacy and nutrition with integrated input from the primary team/attending and other consulting services. The documented time is cumulative and includes review of patient data/exams/labs/chart review and examination of the patient on rounds and throughout the day; time is exclusive of any procedures or teaching time. Current Visit: Yes Status: Acute Priority: High
[2017-04-16] MEDS: Meropenem 500 MG in Sodium Chloride 0.9% 100 ML IVPB SCH ×2 (12:54→20:01)
[2017-04-16] MEDS: Pantoprazole 40 mg Susp UD NG SCH (12:55)
[2017-04-16] MEDS: metOLazone 5 MG TAB PO SCH (12:57)
[2017-04-16] MEDS: Albuterol-Ipratrop 3 mg / 0.5 (3 ml) UD INH PRN (13:09)
[2017-04-16] MEDS: Fluconazole IV 100mg/50 ml NS 50 ML IVPB SCH (15:25)
--- NOTE | 2017-04-16 16:58 | CP.PCM.PN ---
Subjective - Date & Time of Evaluation Date of Evaluation: 04/16/17 Time of Evaluation: 16:56 - Subjective Subjective: I D NOTE WBC:16.3,NO DIFF TODAY ,BANDS WERE 12 YESTERDAY LACTIC ACID IS 1.7,GFR:36 FOR PRESENT CONTINUE VANCOMYCIN,TOBRAMYCIN,MEROPENEM, F/U BLOOD CULTURED ORDERED Objective - Vital Signs/Intake and Output Vital Signs (last 24 hours): Temp Pulse Resp BP Pulse Ox 96.6 F L 105 H 14 115/67 97 04/16/17 12:00 04/16/17 15:00 04/16/17 15:00 04/16/17 15:00 04/16/17 15:00 Intake and Output: 04/16/17 04/16/17 06:59 18:59 Intake Total 1010 400 Output Total 350 Balance 660 400 - Medications Medications: Current Medications Acetaminophen (Tylenol 650 Mg Supp) 650 mg GA Q4 PRN PRN Reason: Temp >101 Last Admin: 04/06/17 16:15 Dose: 650 mg Acetaminophen (Tylenol 650mg/20.3ml Solution Ud) 650 mg PO Q4 PRN PRN Reason: Temperature Last Admin: 04/15/17 20:27 Dose: 650 mg Albumin Human (Albumin Human 25% (12.5 Gm/50 Ml)) 12.5 gm IV Q1 ODETTE Stop: 04/16/17 19:01 Last Admin: 04/16/17 15:22 Dose: 12.5 gm Albuterol/Ipratropium (Duoneb 3 Mg/0.5 Mg (3 Ml) Ud) 3 ml INH RQ4 PRN PRN Reason: Shortness of Breath Last Admin: 04/16/17 13:09 Dose: 3 ml Ascorbic Acid (Vitamin C 500 Mg Tab) 1,500 mg PO Q6 ODETTE Last Admin: 04/16/17 12:57 Dose: 1,500 mg Heparin Sodium (Porcine) (Heparin) 5,000 units SC Q12 ODETTE PRN Reason: Protocol Last Admin: 04/16/17 11:57 Dose: 5,000 units Hydrocortisone Sodium Succinate (Solu-Cortef) 50 mg IV Q6H [facility]TE Last Admin: 04/16/17 12:55 Dose: 50 mg Meropenem 500 mg/ Sodium (Chloride) 100 mls @ 100 mls/hr IVPB Q12 ODETTE PRN Reason: Protocol Last Admin: 04/16/17 12:54 Dose: 100 mls/hr Vancomycin HCl 250 mg/ Sodium (Chloride) 100 mls @ 100 mls/hr IVPB Q24H ODETTE PRN Reason: Protocol Last Admin: 04/15/17 10:44 Dose: Not Given Tobramycin Sulfate 60 mg/ (Sodium Chloride) 101.5 mls @ 100 mls/hr IV Q24H [facility]ETTE Last Admin: 04/15/17 18:22 Dose: 100 mls/hr Fluconazole (Diflucan Iv 100 Mg/50 Ml Ns) 50 mls @ 50 mls/hr IVPB DAILY ODETTE PRN Reason: Protocol Last Admin: 04/16/17 15:25 Dose: 50 mls/hr Phenylephrine HCl 10 mg/ (Sodium Chloride) 251 mls @ 30.12 mls/hr IV .Q8H20M ODETTE; 20 MCG/MIN PRN Reason: Protocol Last Admin: 04/16/17 11:05 Dose: 20 mcg/min, 30.12 mls/hr Metolazone (Zaroxolyn) 5 mg PO DAILY [facility] Last Admin: 04/16/17 12:57 Dose: 5 mg Pantoprazole Sodium (Protonix Susp) 40 mg NG DAILY [facility] Last Admin: 04/16/17 12:55 Dose: 40 mg Thiamine HCl (Vitamin B1 Tab) 200 mg PO Q12H [facility]TE Last Admin: 04/16/17 12:57 Dose: 200 mg - Labs Labs: 04/16/17 05:30 04/16/17 05:30 PT 15.8 Seconds (9.8-13.1) H 04/14/17 04:20 INR 1.4 (0.9-1.2) H 04/14/17 04:20 APTT 33.0 Seconds (25.6-37.1) 04/14/17 04:20
[2017-04-16] MEDS: Tobramycin inj 60 MG in Sodium Chloride 0.9% 100 ML IV SCH (18:03)
--- NOTE | 2017-04-16 22:35 | CP.PCM.PN ---
Subjective - Date & Time of Evaluation Date of Evaluation: 04/14/17 Time of Evaluation: 11:50 - Subjective Subjective: F/U Respiratory Failure. Pt with eyes open, aware of verbal commands. Objective - Vital Signs/Intake and Output Vital Signs (last 24 hours): Temp Pulse Resp BP Pulse Ox 97.8 F 106 H 18 113/55 L 95 04/16/17 20:00 04/16/17 21:00 04/16/17 21:00 04/16/17 21:00 04/16/17 21:00 Intake and Output: 04/16/17 04/17/17 18:59 06:59 Intake Total 2140 251 Output Total 2500 Balance -360 251 - Medications Medications: Current Medications Acetaminophen (Tylenol 650 Mg Supp) 650 mg [place] Q4 PRN PRN Reason: Temp >101 Last Admin: 04/06/17 16:15 Dose: 650 mg Acetaminophen (Tylenol 650mg/20.3ml Solution Ud) 650 mg PO Q4 PRN PRN Reason: Temperature Last Admin: 04/15/17 20:27 Dose: 650 mg Albuterol/Ipratropium (Duoneb 3 Mg/0.5 Mg (3 Ml) Ud) 3 ml INH RQ4 PRN PRN Reason: Shortness of Breath Last Admin: 04/16/17 13:09 Dose: 3 ml Ascorbic Acid (Vitamin C 500 Mg Tab) 1,500 mg PO Q6 ODETTE Last Admin: 04/16/17 21:00 Dose: 1,500 mg Heparin Sodium (Porcine) (Heparin) 5,000 units SC Q12 ODETTE PRN Reason: Protocol Last Admin: 04/16/17 20:01 Dose: 5,000 units Hydrocortisone Sodium Succinate (Solu-Cortef) 50 mg IV Q6H ODETTE Last Admin: 04/16/17 20:02 Dose: 50 mg Meropenem 500 mg/ Sodium (Chloride) 100 mls @ 100 mls/hr IVPB Q12 ODETTE PRN Reason: Protocol Last Admin: 04/16/17 20:01 Dose: 100 mls/hr Vancomycin HCl 250 mg/ Sodium (Chloride) 100 mls @ 100 mls/hr IVPB Q24H ODETTE PRN Reason: Protocol Last Admin: 04/15/17 10:44 Dose: Not Given Tobramycin Sulfate 60 mg/ (Sodium Chloride) 101.5 mls @ 100 mls/hr IV Q24H ODETTE Last Admin: 04/16/17 18:03 Dose: 100 mls/hr Fluconazole (Diflucan Iv 100 Mg/50 Ml Ns) 50 mls @ 50 mls/hr IVPB DAILY ODETTE PRN Reason: Protocol Last Admin: 04/16/17 15:25 Dose: 50 mls/hr Phenylephrine HCl 10 mg/ (Sodium Chloride) 251 mls @ 30.12 mls/hr IV .Q8H20M ODETTE; 20 MCG/MIN PRN Reason: Protocol Last Admin: 04/16/17 19:15 Dose: 20 mcg/min, 30.12 mls/hr Metolazone (Zaroxolyn) 5 mg PO DAILY [facility]TE Last Admin: 04/16/17 12:57 Dose: 5 mg Pantoprazole Sodium (Protonix Susp) 40 mg NG DAILY [facility] Last Admin: 04/16/17 12:55 Dose: 40 mg Thiamine HCl (Vitamin B1 Tab) 200 mg PO Q12H [facility] Last Admin: 04/16/17 20:03 Dose: 200 mg - Labs Labs: 04/16/17 05:30 04/16/17 05:30 PT 15.8 Seconds (9.8-13.1) H 04/14/17 04:20 INR 1.4 (0.9-1.2) H 04/14/17 04:20 APTT 33.0 Seconds (25.6-37.1) 04/14/17 04:20 - Constitutional Appears: Chronically Ill - Head Exam Head Exam: NORMAL INSPECTION - Eye Exam Eye Exam: PERRL - ENT Exam Additional comments: Intubated - Neck Exam Neck Exam: Normal Inspection - Respiratory Exam Respiratory Exam: Rhonchi (scattered) - Cardiovascular Exam Cardiovascular Exam: REGULAR RHYTHM - GI/Abdominal Exam GI & Abdominal Exam: Soft, Normal Bowel Sounds - Extremities Exam Extremities Exam: Pedal Edema Additional comments: L heel DTI, R lateral ankle DTI, MSAD posterior tigh. - Back Exam Additional comments: MSAD buttock, sacrum, R flank. - Neurological Exam Neurological Exam: Awake Additional comments: Pt awake, aware of simple commands. - Skin Skin Exam: Warm Assessment and Plan (1) Acute respiratory failure Status: Acute (2) Shock Status: Deleted (3) Pneumonia Status: Acute (4) Acute renal failure (ARF) Status: Acute (5) Anemia Status: Acute (6) Hematuria, gross Status: Deleted (7) Thrombocytopenia Status: Resolved (8) History of pulmonary embolus (PE) Status: Acute (9) Pancolitis Status: Deleted - Assessment and Plan (Free Text) Plan: Continue ventilatory support, to have HD, continue abx coverage, Pt on Norepinephrine
[2017-04-17] MEDS: Hydrocortisone Succinat 250 MG vial IV SCH ×4 (01:00→21:15)
[2017-04-17 04:17] LABS: ABG ALLEN TEST YES; ABG MECHANICAL RATE 14; ARTERIAL BLOOD GAS HCO3 20.4 mmol/L (21-28); ARTERIAL BLOOD GAS MODE A/C; ARTERIAL BLOOD GAS O2 CAPACITY 12.1 mL/dL (16-24); ARTERIAL BLOOD GAS O2 CONTENT 12.2 ML/dL (15-23); ARTERIAL BLOOD GAS PO2 96 mm/Hg (80-100); ARTERIAL BLOOD HGB O2 SAT 97.2 % (95.0-98.0); ATERIAL BLOOD GAS PEEP 5; CARBOXYHEMOGLOBIN 2.1 % (0.5-1.5); HHB -0.5 % (0.0-5.0); METHEMOGLOBIN 1.2 % (0.0-3.0)
[2017-04-17 06:35] LABS: POTASSIUM 2.2 MMOL/L (3.6-5.0)
[2017-04-17 06:36] LABS: ALB/GLOB RATIO 1.4 (1.0-2.1); BILIRUBIN,TOTAL 1.6 mg/dl (0.2-1.3); CALCIUM 7.4 mg/dL (8.4-10.2); TOTAL PROTEIN 5.1 G/DL (6.3-8.2)
[2017-04-17 06:51] LABS: BASO % 0.1 % (0.0-2.0); HEMATOCRIT 27.1 % (34.0-47.0); LYMPH # 0.4 K/uL (1.0-4.3); LYMPH % 2.3 % (20.0-40.0); MEAN CORPUSCULAR HEMOGLOBIN 26.8 pg (27.0-31.0); MEAN CORPUSCULAR HGB CONC 31.6 g/dL (33.0-37.0); MEAN PLATELET VOLUME 9.7 fl (7.2-11.7); MONO # 0.1 K/uL (0.0-0.8); MONO % 0.4 % (0.0-10.0); NEUT # 16.8 K/uL (1.8-7.0); NEUT % 97.2 % (50.0-75.0); NRBC % 0.6 % (0.0-0.0); RED CELL DISTRIBUTION WIDTH 17.4 % (11.5-14.5); WHITE BLOOD COUNT 17.3 K/uL (4.8-10.8)
[2017-04-17 06:53] LABS: PLATELET COUNT 64 K/uL (130-400)
[2017-04-17] MEDS ORDERED: Potassium Chloride 20 mEq/15 ml LIQ UD NG ONE (07:45)
[2017-04-17] MEDS: Meropenem 500 MG in Sodium Chloride 0.9% 100 ML IVPB SCH ×2 (08:56→23:55)
--- NOTE | 2017-04-17 09:11 | RAD ---
HISTORY: vented COMPARISON: Portable chest 04/16/2017. FINDINGS: Endotracheal tube is unchanged in position as well as nasogastric tube and right central venous dialysis catheter. LUNGS: There is a slight increase in medial left basilar airspace disease with medial right basilar airspace disease unchanged. PLEURA: No significant pleural effusion identified, no pneumothorax apparent. CARDIOVASCULAR: Limited pulmonary venous congestion again appreciated. OSSEOUS STRUCTURES: No significant abnormalities. VISUALIZED UPPER ABDOMEN: Normal. OTHER FINDINGS: None. IMPRESSION: Limited increase in medial left basilar airspace disease with stable limited pulmonary venous congestion and medial right basilar airspace disease.
[2017-04-17] MEDS: Pantoprazole 40 mg Susp UD NG SCH (09:29)
[2017-04-17] MEDS: metOLazone 5 MG TAB PO SCH (09:29)
[2017-04-17 10:28] LABS: METAMYELOCYTE 1 % (0-0); MYELOCYTE 4 % (0-0); NEUTROPHIL 80 % (42-75); TOTAL CELLS COUNTED 100
[2017-04-17] MEDS: Vancomycin 250 MG in Sodium Chloride 0.9% 100 ML IVPB SCH (11:07)
[2017-04-17] MEDS: Fluconazole IV 100mg/50 ml NS 50 ML IVPB SCH (11:07)
--- NOTE | 2017-04-17 11:51 | CP.PCM.PN ---
Subjective - Date & Time of Evaluation Date of Evaluation: 04/17/17 Time of Evaluation: 11:46 - Subjective Subjective: seen and examined, remains on vent Objective - Vital Signs/Intake and Output Vital Signs (last 24 hours): Temp Pulse Resp BP Pulse Ox 98.7 F 93 H 16 100/58 L 99 04/17/17 08:00 04/17/17 08:00 04/17/17 08:00 04/17/17 08:00 04/17/17 08:00 Intake and Output: 04/17/17 04/17/17 06:59 18:59 Intake Total 1642 140 Output Total 1250 Balance 392 140 - Medications Medications: Current Medications Acetaminophen (Tylenol 650 Mg Supp) 650 mg [place] Q4 PRN PRN Reason: Temp >101 Last Admin: 04/06/17 16:15 Dose: 650 mg Acetaminophen (Tylenol 650mg/20.3ml Solution Ud) 650 mg PO Q4 PRN PRN Reason: Temperature Last Admin: 04/15/17 20:27 Dose: 650 mg Albuterol/Ipratropium (Duoneb 3 Mg/0.5 Mg (3 Ml) Ud) 3 ml INH RQ4 PRN PRN Reason: Shortness of Breath Last Admin: 04/16/17 13:09 Dose: 3 ml Ascorbic Acid (Vitamin C 500 Mg Tab) 1,500 mg PO Q6 ODETTE Last Admin: 04/17/17 09:28 Dose: 1,500 mg Heparin Sodium (Porcine) (Heparin) 5,000 units SC Q12 ODETTE PRN Reason: Protocol Last Admin: 04/16/17 20:01 Dose: 5,000 units Hydrocortisone Sodium Succinate (Solu-Cortef) 50 mg IV Q6H ODETTE Last Admin: 04/17/17 07:49 Dose: 50 mg Meropenem 500 mg/ Sodium (Chloride) 100 mls @ 100 mls/hr IVPB Q12 ODETTE PRN Reason: Protocol Last Admin: 04/17/17 08:56 Dose: 100 mls/hr Vancomycin HCl 250 mg/ Sodium (Chloride) 100 mls @ 100 mls/hr IVPB Q24H ODETTE PRN Reason: Protocol Last Admin: 04/17/17 11:07 Dose: 100 mls/hr Tobramycin Sulfate 60 mg/ (Sodium Chloride) 101.5 mls @ 100 mls/hr IV Q24H ODETTE Last Admin: 11/18/17 18:03 Dose: 100 mls/hr Fluconazole (Diflucan Iv 100 Mg/50 Ml Ns) 50 mls @ 50 mls/hr IVPB DAILY ODETTE PRN Reason: Protocol Last Admin: 04/17/17 11:07 Dose: 50 mls/hr Phenylephrine HCl 10 mg/ (Sodium Chloride) 251 mls @ 30.12 mls/hr IV .Q8H20M ODETTE; 20 MCG/MIN PRN Reason: Protocol Last Admin: 04/17/17 06:04 Dose: 20 mcg/min, 30.12 mls/hr Potassium Chloride 10 meq/ (Sodium Chloride) 55 mls @ 55 mls/hr IV Q1 ODETTE Stop: 04/17/17 11:59 Last Admin: 04/17/17 11:08 Dose: 55 mls/hr Metolazone (Zaroxolyn) 5 mg PO DAILY ODETTE Last Admin: 04/17/17 09:29 Dose: 5 mg Pantoprazole Sodium (Protonix Susp) 40 mg NG DAILY ODETTE Last Admin: 04/17/17 09:29 Dose: 40 mg Thiamine HCl (Vitamin B1 Tab) 200 mg PO Q12H ODETTE Last Admin: 04/17/17 09:29 Dose: 200 mg - Labs Labs: 04/17/17 05:30 04/17/17 05:30 PT 15.8 Seconds (9.8-13.1) H 04/14/17 04:20 INR 1.4 (0.9-1.2) H 04/14/17 04:20 APTT 33.0 Seconds (25.6-37.1) 04/14/17 04:20 - Constitutional Appears: No Acute Distress - Head Exam Head Exam: ATRAUMATIC - Eye Exam Eye Exam: Normal appearance - ENT Exam Additional comments: et tube - Neck Exam Additional comments: supple - Respiratory Exam Additional comments: dec bs at bases - Cardiovascular Exam Cardiovascular Exam: +S1, +S2 - GI/Abdominal Exam Additional comments: slightly distended - Extremities Exam Additional comments: 2+ edema - Neurological Exam Additional comments: opens eyes to voice - Psychiatric Exam Psychiatric exam: Normal Affect - Skin Skin Exam: Normal Color Assessment and Plan - Assessment and Plan (Free Text) Assessment: ARF/ VDRF / Hypoxic respiratory failure/ Sepsis/ Anemia/ Hypokalemia plan for IUF again today - 2-2.5 kg as tolerated still on low dose presors 80 meq of K ordered - asked RN to recheck level at 3 pm and give further repletion as likely will be necessary will check mag level as well dose vanc by level also recc check tobra level - pt at further risk for kidney injury and non- recovery with aminoglycosides though it appears that microbiology is limited to antibiotics w/ significant nephrotoxicity profile.
--- NOTE | 2017-04-17 13:55 | CP.CCUPN ---
CCU Subjective - Physician Review Events Since Last Encounter (Free Text): 04/17/17 13:51 alert and following commands. CCU Objective - Vital Signs / Intake & Output Vital Signs (Last 4 hours): Vital Signs Temp Pulse Resp BP Pulse Ox 04/17/17 13:00 91 H 22 115/70 95 04/17/17 12:00 98.7 F 105 H 16 105/59 L 100 04/17/17 11:00 121 H 16 112/60 95 04/17/17 10:00 106 H 18 118/68 97 Intake and Output (Last 8hrs): Intake & Output 04/16/17 04/17/17 04/17/17 22:59 06:59 14:59 Intake Total 2553 929 800 Output Total 2500 1250 200 Balance 53 -321 600 Weight 196 lb 3.2 oz Intake: IV 253 269 Intake, Piggyback 1200 50 450 Tube Feeding 1050 560 350 Free Water Flush 50 50 Output: Urine 300 650 Urethral (Castillo) 300 650 Stool 100 600 200 Ultrafiltrate 2100 - Physical Exam Head: Positive for: Atraumatic, Normocephalic. Negative for: Tenderness, Contusion Pupils: Positive for: PERRL. Negative for: Sluggish, Non-Reactive Extroacular Muscles: Positive for: EOMI. Negative for: Gaze Palsy Conjunctiva: Positive for: Normal. Negative for: Injected, Icteric Mouth: Positive for: Dry (bloody) Neck: Negative for: JVD Respiratory/Chest: Positive for: Decreased Breath Sounds, Retracting, Rhonchi, Tachypneic. Negative for: Accessory Muscle Use, Wheezes Cardiovascular: Positive for: Tachycardic. Negative for: Murmurs, Rub Abdomen: Positive for: Distention, Normal Bowel Sounds. Negative for: Tenderness Upper Extremity: Positive for: Edema Lower Extremity: Positive for: Edema. Negative for: CALF TENDERNESS, NORMAL PULSES, Cyanosis Psychiatric: Positive for: Alert - Medications Active Medications: Active Medications Generic Name Dose Route Start Last Admin Trade Name Freq PRN Reason Stop Dose Admin Acetaminophen 650 mg 04/06/17 05:00 04/06/17 16:15 Tylenol 650 Mg Supp NC 650 mg Q4 PRN Administration Temp >101 Acetaminophen 650 mg 04/07/17 04:12 04/15/17 20:27 Tylenol 650mg/20.3ml Solution Ud PO 650 mg Q4 PRN Administration Temperature Albumin Human 12.5 gm 04/17/17 13:45 Albumin Human 25% (12.5 Gm/50 Ml) IV 04/17/17 20:46 Q1H ODETTE Albumin Human 12.5 gm 04/18/17 08:00 Albumin Human 25% (12.5 Gm/50 Ml) IV 04/18/17 15:01 Q1H ODETTE Albuterol/Ipratropium 3 ml 04/04/17 19:10 04/16/17 13:09 Duoneb 3 Mg/0.5 Mg (3 Ml) Ud INH 3 ml RQ4 PRN Administration Shortness of Breath Ascorbic Acid 1,500 mg 04/13/17 10:00 04/17/17 09:28 Vitamin C 500 Mg Tab PO 1,500 mg Q6 ODETTE Administration Heparin Sodium (Porcine) 5,000 units 04/16/17 10:30 04/16/17 20:01 Heparin SC 5,000 units Q12 ODETTE Administration Protocol Hydrocortisone Sodium Succinate 50 mg 04/15/17 12:45 04/17/17 07:49 Solu-Cortef IV 50 mg Q6H ODETTE Administration Meropenem 500 mg/ Sodium 100 mls @ 100 mls/hr 04/06/17 10:45 04/17/17 08:56 Chloride IVPB 100 mls/hr Q12 ODETTE Administration Protocol Vancomycin HCl 250 mg/ Sodium 100 mls @ 100 mls/hr 04/11/17 09:45 04/17/17 11 :07 Chloride IVPB 100 mls/hr Q24H ODETTE Administration Protocol Tobramycin Sulfate 60 mg/ 101.5 mls @ 100 mls/hr 04/11/17 18:30 04/16/17 18: 03 Sodium Chloride IV 100 mls/hr Q24H ODETTE Administration Fluconazole 50 mls @ 50 mls/hr 04/16/17 09:00 04/17/17 11:07 Diflucan Iv 100 Mg/50 Ml Ns IVPB 50 mls/hr DAILY ODETTE Administration Protocol Phenylephrine HCl 10 mg/ 251 mls @ 30.12 mls/hr 04/16/17 10:30 04/17/17 06:04 Sodium Chloride IV 20 mcg/min .Q8H20M ODETTE 30.12 mls/hr Protocol Administration 20 MCG/MIN Metolazone 5 mg 04/13/17 10:45 04/17/17 09:29 Zaroxolyn PO 5 mg DAILY ODETTE Administration Pantoprazole Sodium 40 mg 04/14/17 10:30 04/17/17 09:29 Protonix Susp NG 40 mg DAILY ODETTE Administration Thiamine HCl 200 mg 04/13/17 21:00 04/17/17 09:29 Vitamin B1 Tab PO 200 mg Q12H ODETTE Administration - Patient Studies Lab Studies: Microbiology Studies 04/12/17 11:05 Blood Culture - Final Blood NO GROWTH AFTER 5 DAYS Gram Stain - Final TEST NOT PERFORMED 04/12/17 19:00 Blood Culture - Preliminary Blood-Venous NO GROWTH AFTER 4 DAYS Lab Studies 04/17/17 04/17/17 04/17/17 Range/Units 05:30 05:30 05:30 WBC 17.3 H (4.8-10.8) K/uL RBC 3.18 L (3.80-5.20) Mil/uL Hgb 8.5 L D (12.0-16.0) g/dL Hct 27.1 L (34.0-47.0) % MCV 85.0 (81.0-99.0) fl MCH 26.8 L (27.0-31.0) pg MCHC 31.6 L (33.0-37.0) g/dL RDW 17.4 H (11.5-14.5) % Plt Count 64 L (130-400) K/uL MPV 9.7 (7.2-11.7) fl Neut % (Auto) 97.2 H (50.0-75.0) % Lymph % (Auto) 2.3 L (20.0-40.0) % [place] % (Auto) 0.4 (0.0-10.0) % Eos % (Auto) 0.0 (0.0-4.0) % Baso % (Auto) 0.1 (0.0-2.0) % Neut # 16.8 H (1.8-7.0) K/uL Lymph # 0.4 L (1.0-4.3) K/uL [place] # 0.1 (0.0-0.8) K/uL Eos # 0.0 (0.0-0.7) K/uL Baso # 0.0 (0.0-0.2) K/uL Neutrophils % (Manual) 80 H (42-75) % Band Neutrophils % 8 H (0-2) % Lymphocytes % (Manual) 4 L (20-50) % Monocytes % (Manual) 3 (0-10) % Metamyelocytes % 1 H (0-0) % Myelocytes % 4 H (0-0) % Platelet Estimate Decreased L (NORMAL) Hypochromasia (manual) Slight Poikilocytosis (manual Slight Anisocytosis (manual) Moderate Tear Drop Cells Slight Ovalocytes Slight pCO2 (35-45) mm/Hg pO2 (80-100) mm/Hg HCO3 (21-28) mmol/L ABG pH (7.35-7.45) ABG Total CO2 (22-28) mmol/L ABG O2 Saturation (95-98) % ABG O2 Content (15-23) ML/dL ABG Base Excess (-2.0-3.0) mmol/L ABG Hemoglobin (11.7-17.4) g/dL ABG Carboxyhemoglobin (0.5-1.5) % POC ABG HHb (Measured) (0.0-5.0) % ABG Methemoglobin (0.0-3.0) % ABG O2 Capacity (16-24) mL/dL [place]ingo Test A-a O2 Difference mm/Hg Hgb O2 Saturation (95.0-98.0) % Vent Mode Mechanical Rate FiO2 % Tidal Volume PEEP Sodium 144 (132-148) mmol/l Potassium 2.2 L* (3.6-5.0) MMOL/L Chloride 109 H (98-107) mmol/L Carbon Dioxide 21 L (22-30) mmol/L Anion Gap 16 (10-20) BUN 26 H (7-17) mg/dl Creatinine 1.4 H (0.7-1.2) mg/dl Est GFR ( Amer) 48 Est GFR (Non-Af Amer) 39 Random Glucose 139 H (65-105) mg/dL Calcium 7.4 L (8.4-10.2) mg/dL Total Bilirubin 1.6 H (0.2-1.3) mg/dl AST 24 (14-36) U/L ALT 42 (9-52) U/L Alkaline Phosphatase 211 H D (38-126) U/L Total Protein 5.1 L (6.3-8.2) G/DL Albumin 3.0 L D (3.5-5.0) g/dL Globulin 2.1 L (2.2-3.9) gm/dL Albumin/Globulin Ratio 1.4 (1.0-2.1) Random Vancomycin 10.9 ug/mL 04/17/17 Range/Units 04:08 WBC (4.8-10.8) K/uL RBC (3.80-5.20) Mil/uL Hgb (12.0-16.0) g/dL Hct (34.0-47.0) % MCV (81.0-99.0) fl MCH (27.0-31.0) pg MCHC (33.0-37.0) g/dL RDW (11.5-14.5) % Plt Count (130-400) K/uL MPV (7.2-11.7) fl Neut % (Auto) (50.0-75.0) % Lymph % (Auto) (20.0-40.0) % [place] % (Auto) (0.0-10.0) % Eos % (Auto) (0.0-4.0) % Baso % (Auto) (0.0-2.0) % Neut # (1.8-7.0) K/uL Lymph # (1.0-4.3) K/uL [place] # (0.0-0.8) K/uL Eos # (0.0-0.7) K/uL Baso # (0.0-0.2) K/uL Neutrophils % (Manual) (42-75) % Band Neutrophils % (0-2) % Lymphocytes % (Manual) (20-50) % Monocytes % (Manual) (0-10) % Metamyelocytes % (0-0) % Myelocytes % (0-0) % Platelet Estimate (NORMAL) Hypochromasia (manual) Poikilocytosis (manual Anisocytosis (manual) Tear Drop Cells Ovalocytes pCO2 41 (35-45) mm/Hg pO2 96 (80-100) mm/Hg HCO3 20.4 L (21-28) mmol/L ABG pH 7.30 L (7.35-7.45) ABG Total CO2 21.5 L (22-28) mmol/L ABG O2 Saturation 100.5 H (95-98) % ABG O2 Content 12.2 L (15-23) ML/dL ABG Base Excess -5.8 L (-2.0-3.0) mmol/L ABG Hemoglobin 8.8 L (11.7-17.4) g/dL ABG Carboxyhemoglobin 2.1 H (0.5-1.5) % POC ABG HHb (Measured) -0.5 L (0.0-5.0) % ABG Methemoglobin 1.2 (0.0-3.0) % ABG O2 Capacity 12.1 L (16-24) mL/dL Domingo Test Yes A-a O2 Difference 138.0 mm/Hg Hgb O2 Saturation 97.2 (95.0-98.0) % Vent Mode A/c Mechanical Rate 14 FiO2 40.0 % Tidal Volume 450 PEEP 5 Sodium (132-148) mmol/l Potassium (3.6-5.0) MMOL/L Chloride (98-107) mmol/L Carbon Dioxide (22-30) mmol/L Anion Gap (10-20) BUN (7-17) mg/dl Creatinine (0.7-1.2) mg/dl Est GFR ( Amer) Est GFR (Non-Af Amer) Random Glucose (65-105) mg/dL Calcium (8.4-10.2) mg/dL Total Bilirubin (0.2-1.3) mg/dl AST (14-36) U/L ALT (9-52) U/L Alkaline Phosphatase (38-126) U/L Total Protein (6.3-8.2) G/DL Albumin (3.5-5.0) g/dL Globulin (2.2-3.9) gm/dL Albumin/Globulin Ratio (1.0-2.1) Random Vancomycin ug/mL Laboratory Results - last 24 hr 04/17/17 04/17/17 04/17/17 04:08 05:30 05:30 WBC 17.3 H RBC 3.18 L Hgb 8.5 L D Hct 27.1 L MCV 85.0 MCH 26.8 L MCHC 31.6 L RDW 17.4 H Plt Count 64 L MPV 9.7 Neut % (Auto) 97.2 H Lymph % (Auto) 2.3 L [place] % (Auto) 0.4 Eos % (Auto) 0.0 Baso % (Auto) 0.1 Neut # 16.8 H Lymph # 0.4 L [place] # 0.1 Eos # 0.0 Baso # 0.0 Neutrophils % (Manual) 80 H Band Neutrophils % 8 H Lymphocytes % (Manual) 4 L Monocytes % (Manual) 3 Metamyelocytes % 1 H Myelocytes % 4 H Platelet Estimate Decreased L Hypochromasia (manual) Slight Poikilocytosis (manual Slight Anisocytosis (manual) Moderate Tear Drop Cells Slight Ovalocytes Slight pCO2 41 pO2 96 HCO3 20.4 L ABG pH 7.30 L ABG Total CO2 21.5 L ABG O2 Saturation 100.5 H ABG O2 Content 12.2 L ABG Base Excess -5.8 L ABG Hemoglobin 8.8 L ABG Carboxyhemoglobin 2.1 H POC ABG HHb (Measured) -0.5 L ABG Methemoglobin 1.2 ABG O2 Capacity 12.1 L [place]ingo Test Yes A-a O2 Difference 138.0 Hgb O2 Saturation 97.2 Vent Mode A/c Mechanical Rate 14 FiO2 40.0 Tidal Volume 450 PEEP 5 Sodium Potassium Chloride Carbon Dioxide Anion Gap BUN Creatinine Est GFR ( Amer) Est GFR (Non-Af Amer) Random Glucose Calcium Total Bilirubin AST ALT Alkaline Phosphatase Total Protein Albumin Globulin Albumin/Globulin Ratio Random Vancomycin 10.9 04/17/17 05:30 WBC RBC Hgb Hct MCV MCH MCHC RDW Plt Count MPV Neut % (Auto) Lymph % (Auto) [place] % (Auto) Eos % (Auto) Baso % (Auto) Neut # Lymph # [place] # Eos # Baso # Neutrophils % (Manual) Band Neutrophils % Lymphocytes % (Manual) Monocytes % (Manual) Metamyelocytes % Myelocytes % Platelet Estimate Hypochromasia (manual) Poikilocytosis (manual Anisocytosis (manual) Tear Drop Cells Ovalocytes pCO2 pO2 HCO3 ABG pH ABG Total CO2 ABG O2 Saturation ABG O2 Content ABG Base Excess ABG Hemoglobin ABG Carboxyhemoglobin POC ABG HHb (Measured) ABG Methemoglobin ABG O2 Capacity [place] Test A-a O2 Difference Hgb O2 Saturation Vent Mode Mechanical Rate FiO2 Tidal Volume PEEP Sodium 144 Potassium 2.2 L* Chloride 109 H Carbon Dioxide 21 L Anion Gap 16 BUN 26 H Creatinine 1.4 H Est GFR ( Amer) 48 Est GFR (Non-Af Amer) 39 Random Glucose 139 H Calcium 7.4 L Total Bilirubin 1.6 H AST 24 ALT 42 Alkaline Phosphatase 211 H D Total Protein 5.1 L Albumin 3.0 L D Globulin 2.1 L Albumin/Globulin Ratio 1.4 Random Vancomycin Fingerstick Blood Sugar Results: 221 Review of Systems - Review of Systems Systems not reviewed;Unavailable: Intubated Critical Care Progress Note - Ventilator Checklist Head of Bed 30 Degrees: Yes Daily Sedation Vacation: Yes Daily Assessment of Readiness to Wean: Yes Daily Spontaneous Breathing Trial: Yes PUD Prophalyxis: Yes DVT Prophylaxis: Yes Assessment/Plan (1) Acute renal failure (ARF) Assessment and plan: 51yo F. PMHx ovarian CA s/p RODRIGO/BSO (in remission since 2014), SB enteritis s/p ex-lap with WILNER (01/04/17) which was c/b VAP, ascites with drain placement and post-op PE (IVC filter, now on Xarelto), right hydronephrosis with ureteral stent placement (now removed). p/w acute renal failure with severe metabolic acidosis, oozing blood from oropharynx and possible traumatic castillo placement. Dialysis started (04/04). Neuro: alert and following commands, all sedation held. Pulm: on PRVC. starting to tolerate PS trials. CV: hypotensive during dialysis, added albumin drip and phenylephrine during dialysis. Hem: anemia, h/h dropped today, will monitor, and thrombocytopenia, stabilizing low. leucocytosis from septic source, now worsening, re-culturing. Renal: acute kidney injury, on dialysis. Currently removing fluid to control third spacing/edema, 2.5L/day x 3 days. Continue Metolazone. Endo: no acute issues GI: NPO, Vital@70. GI - Dr. Nixon ID: severe sepsis from gram negative bacteremia ESBL Kelbsiella, E. Faecalis ( blood), pseudomonas (trach asp), yeast (urine). Continue Meropenem, Fluconazole , Tobramycin, and Vancomycin. Continue steroids, Vitamin C and thiamine. DVT proph - SCD's, heparin sq GI proph - protonix po castillo for strict I/O's during acute illness Code status - full code Right femoral TLC (04/04) Left IJ Shiley (04/04) Critical Care Time spent 40 minutes Multi-disciplinary rounds were performed with house staff, nursing, speech therapy, respiratory therapy, pharmacy and nutrition with integrated input from the primary team/attending and other consulting services. The documented time is cumulative and includes review of patient data/exams/labs/chart review and examination of the patient on rounds and throughout the day; time is exclusive of any procedures or teaching time. Current Visit: Yes Status: Acute Priority: High
[2017-04-17] MEDS: Albumin Human 25% (12.5 gm/50 ml) IV SCH ×8 (14:54→22:45)
--- NOTE | 2017-04-17 16:26 | CP.PCM.PN ---
Subjective - Date & Time of Evaluation Date of Evaluation: 04/17/17 Time of Evaluation: 10:30 - Subjective Subjective: F/U Respiratory Failure Pt with eyes ope, aware of verbal command, on ventilator. Objective - Vital Signs/Intake and Output Vital Signs (last 24 hours): Temp Pulse Resp BP Pulse Ox 98.7 F 116 H 23 117/66 96 04/17/17 12:00 04/17/17 14:00 04/17/17 14:00 04/17/17 14:00 04/17/17 14:00 Intake and Output: 04/17/17 04/17/17 06:59 18:59 Intake Total 1642 1291 Output Total 1250 200 Balance 392 1091 - Medications Medications: Current Medications Acetaminophen (Tylenol 650 Mg Supp) 650 mg [place] Q4 PRN PRN Reason: Temp >101 Last Admin: 04/06/17 16:15 Dose: 650 mg Acetaminophen (Tylenol 650mg/20.3ml Solution Ud) 650 mg PO Q4 PRN PRN Reason: Temperature Last Admin: 04/15/17 20:27 Dose: 650 mg Albumin Human (Albumin Human 25% (12.5 Gm/50 Ml)) 12.5 gm IV Q1H ODETTE Stop: 04/17/17 20:46 Last Admin: 04/17/17 16:04 Dose: 12.5 gm Albumin Human (Albumin Human 25% (12.5 Gm/50 Ml)) 12.5 gm IV Q1H ODETTE Stop: 04/18/17 15:01 Albuterol/Ipratropium (Duoneb 3 Mg/0.5 Mg (3 Ml) Ud) 3 ml INH RQ4 PRN PRN Reason: Shortness of Breath Last Admin: 04/16/17 13:09 Dose: 3 ml Ascorbic Acid (Vitamin C 500 Mg Tab) 1,500 mg PO Q6 ODETTE Last Admin: 04/17/17 16:05 Dose: 1,500 mg Heparin Sodium (Porcine) (Heparin) 5,000 units SC Q12 ODETTE PRN Reason: Protocol Last Admin: 04/17/17 14:54 Dose: 5,000 units Hydrocortisone Sodium Succinate (Solu-Cortef) 50 mg IV Q6H ODETTE Last Admin: 04/17/17 14:55 Dose: 50 mg Meropenem 500 mg/ Sodium (Chloride) 100 mls @ 100 mls/hr IVPB Q12 ODETTE PRN Reason: Protocol Last Admin: 04/17/17 08:56 Dose: 100 mls/hr Vancomycin HCl 250 mg/ Sodium (Chloride) 100 mls @ 100 mls/hr IVPB Q24H ODETTE PRN Reason: Protocol Last Admin: 04/17/17 11:07 Dose: 100 mls/hr Tobramycin Sulfate 60 mg/ (Sodium Chloride) 101.5 mls @ 100 mls/hr IV Q24H ODETTE Last Admin: 04/16/17 18:03 Dose: 100 mls/hr Fluconazole (Diflucan Iv 100 Mg/50 Ml Ns) 50 mls @ 50 mls/hr IVPB DAILY ODETTE PRN Reason: Protocol Last Admin: 04/17/17 11:07 Dose: 50 mls/hr Phenylephrine HCl 10 mg/ (Sodium Chloride) 251 mls @ 30.12 mls/hr IV .Q8H20M ODETTE; 20 MCG/MIN PRN Reason: Protocol Last Admin: 04/17/17 14:55 Dose: 20 mcg/min, 30.12 mls/hr Metolazone (Zaroxolyn) 5 mg PO DAILY [facility] Last Admin: 04/17/17 09:29 Dose: 5 mg Pantoprazole Sodium (Protonix Susp) 40 mg NG DAILY ODETTE Last Admin: 04/17/17 09:29 Dose: 40 mg Thiamine HCl (Vitamin B1 Tab) 200 mg PO Q12H ODETTE Last Admin: 04/17/17 09:29 Dose: 200 mg - Labs Labs: 04/17/17 05:30 04/17/17 05:30 PT 15.8 Seconds (9.8-13.1) H 04/14/17 04:20 INR 1.4 (0.9-1.2) H 04/14/17 04:20 APTT 33.0 Seconds (25.6-37.1) 04/14/17 04:20 - Constitutional Appears: Chronically Ill - Head Exam Head Exam: NORMAL INSPECTION - Eye Exam Eye Exam: PERRL - ENT Exam Additional comments: Intubated - Neck Exam Neck Exam: Normal Inspection - Respiratory Exam Respiratory Exam: Rhonchi (scattered) - Cardiovascular Exam Cardiovascular Exam: REGULAR RHYTHM - GI/Abdominal Exam GI & Abdominal Exam: Soft, Normal Bowel Sounds - Extremities Exam Extremities Exam: Pedal Edema Additional comments: L heel DTI, R lateral ankle DTI, MSAD posterior thigh - Back Exam Additional comments: MSAD buttock, sacrum,R flank. - Neurological Exam Neurological Exam: Awake Additional comments: aware of simple commands - Skin Skin Exam: Warm Assessment and Plan (1) Acute respiratory failure Status: Acute (2) Shock Status: Deleted (3) Pneumonia Status: Acute (4) Acute renal failure (ARF) Status: Acute (5) Anemia Status: Acute (6) Hematuria, gross Status: Deleted (7) Thrombocytopenia Status: Resolved (8) History of pulmonary embolus (PE) Status: Acute (9) Pancolitis Status: Deleted - Assessment and Plan (Free Text) Plan: For HD today, continue Merren, Vanco and rest of Tx.
[2017-04-17 16:44] LABS: CALCIUM 7.9 mg/dL (8.4-10.2); MAGNESIUM 1.4 MG/DL (1.6-2.3); POTASSIUM 3.1 MMOL/L (3.6-5.0)
[2017-04-17] MEDS ORDERED: Magnesium Sulfate 2 gm/50 ml 2 GM/50 ML BAG IVPB ONE (17:26)
[2017-04-17] MEDS ORDERED: Potassium Chloride 20 mEq ER Tab PO ONE (17:27)
--- NOTE | 2017-04-17 17:33 | CP.PCM.PN ---
Subjective - Date & Time of Evaluation Date of Evaluation: 04/16/17 Time of Evaluation: 17:25 - Subjective Subjective: I D NOTE WBC:17.3,HAS BEEN INCREASING,BANDS ARE 8 BUT DOWN FROM 12 SO FAR F/U CULTURES ARE NEGATIVE HAVING LOOSE STOOLS ,C.DIFF ORDERED WILL ADD FLAGYL VIA NGT SERUM LACTATE OEDERED FOR AM Objective - Vital Signs/Intake and Output Vital Signs (last 24 hours): Temp Pulse Resp BP Pulse Ox 98.7 F 116 H 23 117/66 96 04/17/17 12:00 04/17/17 14:00 04/17/17 14:00 04/17/17 14:00 04/17/17 14:00 Intake and Output: 04/17/17 04/17/17 06:59 18:59 Intake Total 1642 1291 Output Total 1250 200 Balance 392 1091 - Medications Medications: Current Medications Acetaminophen (Tylenol 650 Mg Supp) 650 mg [place] Q4 PRN PRN Reason: Temp >101 Last Admin: 04/06/17 16:15 Dose: 650 mg Acetaminophen (Tylenol 650mg/20.3ml Solution Ud) 650 mg PO Q4 PRN PRN Reason: Temperature Last Admin: 04/15/17 20:27 Dose: 650 mg Albumin Human (Albumin Human 25% (12.5 Gm/50 Ml)) 12.5 gm IV Q1H ODETTE Stop: 04/17/17 20:46 Last Admin: 04/17/17 16:04 Dose: 12.5 gm Albumin Human (Albumin Human 25% (12.5 Gm/50 Ml)) 12.5 gm IV Q1H ODETTE Stop: 04/18/17 15:01 Albuterol/Ipratropium (Duoneb 3 Mg/0.5 Mg (3 Ml) Ud) 3 ml INH RQ4 PRN PRN Reason: Shortness of Breath Last Admin: 04/16/17 13:09 Dose: 3 ml Ascorbic Acid (Vitamin C 500 Mg Tab) 1,500 mg PO Q6 ODETTE Last Admin: 04/17/17 16:05 Dose: 1,500 mg Heparin Sodium (Porcine) (Heparin) 5,000 units SC Q12 ODETTE PRN Reason: Protocol Last Admin: 04/17/17 14:54 Dose: 5,000 units Hydrocortisone Sodium Succinate (Solu-Cortef) 50 mg IV Q6H ODETTE Last Admin: 04/17/17 14:55 Dose: 50 mg Meropenem 500 mg/ Sodium (Chloride) 100 mls @ 100 mls/hr IVPB Q12 ODETTE PRN Reason: Protocol Last Admin: 04/17/17 08:56 Dose: 100 mls/hr Vancomycin HCl 250 mg/ Sodium (Chloride) 100 mls @ 100 mls/hr IVPB Q24H ODETTE PRN Reason: Protocol Last Admin: 04/17/17 11:07 Dose: 100 mls/hr Tobramycin Sulfate 60 mg/ (Sodium Chloride) 101.5 mls @ 100 mls/hr IV Q24H ODETTE Last Admin: 04/16/17 18:03 Dose: 100 mls/hr Fluconazole (Diflucan Iv 100 Mg/50 Ml Ns) 50 mls @ 50 mls/hr IVPB DAILY ODETTE PRN Reason: Protocol Last Admin: 04/17/17 11:07 Dose: 50 mls/hr Phenylephrine HCl 10 mg/ (Sodium Chloride) 251 mls @ 30.12 mls/hr IV .Q8H20M ODETTE; 20 MCG/MIN PRN Reason: Protocol Last Admin: 04/17/17 14:55 Dose: 20 mcg/min, 30.12 mls/hr Metolazone (Zaroxolyn) 5 mg PO DAILY [facility] Last Admin: 04/17/17 09:29 Dose: 5 mg Metronidazole (Flagyl) 250 mg PO Q8 ODETTE PRN Reason: Protocol Pantoprazole Sodium (Protonix Susp) 40 mg NG DAILY [facility] Last Admin: 04/17/17 09:29 Dose: 40 mg Thiamine HCl (Vitamin B1 Tab) 200 mg PO Q12H ODETTE Last Admin: 04/17/17 09:29 Dose: 200 mg - Labs Labs: 04/17/17 05:30 04/17/17 16:28 PT 15.8 Seconds (9.8-13.1) H 04/14/17 04:20 INR 1.4 (0.9-1.2) H 04/14/17 04:20 APTT 33.0 Seconds (25.6-37.1) 04/14/17 04:20
[2017-04-17] MEDS ORDERED: Potassium Chloride 20 mEq/15 ml LIQ UD PO ONE ×2 (18:07→18:30)
[2017-04-17] MEDS: Tobramycin inj 60 MG in Sodium Chloride 0.9% 100 ML IV SCH (22:47)
[2017-04-18] MEDS: Hydrocortisone Succinat 250 MG vial IV SCH ×4 (03:59→20:45)
[2017-04-18 05:26] LABS: BASO % 0.1 % (0.0-2.0); EOS # 0.2 K/uL (0.0-0.7); EOS % 1.1 % (0.0-4.0); HEMATOCRIT 25.4 % (34.0-47.0); LYMPH # 0.3 K/uL (1.0-4.3); LYMPH % 1.6 % (20.0-40.0); MEAN CELL VOLUME 85.6 fl (81.0-99.0); MEAN CORPUSCULAR HEMOGLOBIN 27.1 pg (27.0-31.0); MEAN CORPUSCULAR HGB CONC 31.7 g/dL (33.0-37.0); MEAN PLATELET VOLUME 9.5 fl (7.2-11.7); MONO # 0.1 K/uL (0.0-0.8); MONO % 0.3 % (0.0-10.0); NEUT # 16.9 K/uL (1.8-7.0); NEUT % 96.9 % (50.0-75.0); NRBC % 1.3 % (0.0-0.0); RED CELL DISTRIBUTION WIDTH 17.8 % (11.5-14.5); WHITE BLOOD COUNT 17.4 K/uL (4.8-10.8)
[2017-04-18 05:27] LABS: ABG ALLEN TEST YES; ABG MECHANICAL RATE 14; ARTERIAL BLOOD GAS HCO3 18.8 mmol/L (21-28); ARTERIAL BLOOD GAS MODE A/C; ARTERIAL BLOOD GAS O2 CAPACITY 11.7 mL/dL (16-24); ARTERIAL BLOOD GAS O2 CONTENT 11.6 ML/dL (15-23); ARTERIAL BLOOD GAS PH 7.23 (7.35-7.45); ARTERIAL BLOOD GAS PO2 77 mm/Hg (80-100); ARTERIAL BLOOD HGB O2 SAT 95.8 % (95.0-98.0); ATERIAL BLOOD GAS PEEP 5; CARBOXYHEMOGLOBIN 2.5 % (0.5-1.5); HHB 0.6 % (0.0-5.0); METHEMOGLOBIN 1.1 % (0.0-3.0)
[2017-04-18 05:30] LABS: PLATELET COUNT 61 K/uL (130-400)
[2017-04-18 05:44] LABS: ALB/GLOB RATIO 1.8 (1.0-2.1); BILIRUBIN,TOTAL 1.6 mg/dl (0.2-1.3); CALCIUM 8.2 mg/dL (8.4-10.2); POTASSIUM 2.8 MMOL/L (3.6-5.0); TOTAL PROTEIN 5.6 G/DL (6.3-8.2)
[2017-04-18] MEDS ORDERED: Albumin Human 25% (12.5 gm/50 ml) IV SCH (08:00)
[2017-04-18] MEDS: Fluconazole IV 100mg/50 ml NS 50 ML IVPB SCH (09:52)
[2017-04-18] MEDS: Meropenem 500 MG in Sodium Chloride 0.9% 100 ML IVPB SCH ×2 (09:53→20:43)
[2017-04-18] MEDS: Pantoprazole 40 mg Susp UD NG SCH (09:54)
[2017-04-18] MEDS: metOLazone 5 MG TAB PO SCH (09:55)
--- NOTE | 2017-04-18 10:33 | RAD ---
PROCEDURE: CHEST RADIOGRAPH, 1 VIEW HISTORY: pt intubated COMPARISON: Multiple serial examinations preceding the most recent study: April 17, 2017. FINDINGS: LUNGS: Stable right lower lobe infiltrate PLEURA: No pneumothorax or pleural fluid seen. CARDIOVASCULAR: No significant interval change compared to the prior examination(s). OSSEOUS STRUCTURES: No significant abnormalities. VISUALIZED UPPER ABDOMEN: Normal. OTHER FINDINGS: Stable, satisfactory position ventilatory, vascular and nasogastric apparatus. IMPRESSION: No significant interval change compared to the prior examination(s).
[2017-04-18 10:55] LABS: METAMYELOCYTE 1 % (0-0); MYELOCYTE 1 % (0-0); NEUTROPHIL 89 % (42-75); TOTAL CELLS COUNTED 100
[2017-04-18] MEDS: Vancomycin 250 MG in Sodium Chloride 0.9% 100 ML IVPB SCH (11:00)
--- NOTE | 2017-04-18 12:08 | CP.PCM.CON ---
Past Patient History - Past Medical History & Family History Past Medical History?: Yes - Past Social History Alcohol: None Drugs: Denies - CARDIAC Hx Cardiac Disorders: No - PULMONARY Hx Pulmonary Embolism: Yes - NEUROLOGICAL Hx Neurological Disorder: No - HEENT Hx HEENT Problems: No - RENAL Other/Comment: hydronephrosis, R ureteral stent and removal (01/27/17). 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) - ENDOCRINE/METABOLIC Hx Endocrine Disorders: No - HEMATOLOGICAL/ONCOLOGICAL Hx Blood Disorders: Yes Hx Cancer: Yes (Cervical) - INTEGUMENTARY Hx Dermatological Problems: No - MUSCULOSKELETAL/RHEUMATOLOGICAL Hx Musculoskeletal Disorders: No - GASTROINTESTINAL Hx Gastrointestinal Disorders: Yes Hx Bowel Surgery: Yes Hx Fatty Liver Disease: Yes Other/Comment: small bowel enteritis - GENITOURINARY/GYNECOLOGICAL Hx Genitourinary Disorders: Yes Hx Ovarian Cancer: Yes - PSYCHIATRIC Hx Psychophysiologic Disorder: No Hx Substance Use: No - SURGICAL HISTORY Hx Cholecystectomy: Yes - ANESTHESIA Hx Anesthesia: Yes Hx Anesthesia Reactions: No Meds Allergies/Adverse Reactions: Allergies Allergy/AdvReac Type Severity Reaction Status Date / Time cimetidine [From [facility]] Allergy RASH Verified 04/04/17 05:33 nickel Allergy RASH Verified 04/04/17 05:34 Penicillins Allergy RASH Verified 04/04/17 05:33 - Medications Medications: Current Medications Acetaminophen (Tylenol 650 Mg Supp) 650 mg [place] Q4 PRN PRN Reason: Temp >101 Last Admin: 04/06/17 16:15 Dose: 650 mg Acetaminophen (Tylenol 650mg/20.3ml Solution Ud) 650 mg PO Q4 PRN PRN Reason: Temperature Last Admin: 04/15/17 20:27 Dose: 650 mg Albumin Human (Albumin Human 25% (12.5 Gm/50 Ml)) 12.5 gm IV Q1H ODETTE Stop: 04/18/17 15:01 Albuterol/Ipratropium (Duoneb 3 Mg/0.5 Mg (3 Ml) Ud) 3 ml INH RQ4 PRN PRN Reason: Shortness of Breath Last Admin: 04/16/17 13:09 Dose: 3 ml Ascorbic Acid (Vitamin C 500 Mg Tab) 1,500 mg PO Q6 ODETTE Last Admin: 04/18/17 09:55 Dose: 1,500 mg Heparin Sodium (Porcine) (Heparin) 5,000 units SC Q12 ODETTE PRN Reason: Protocol Last Admin: 04/18/17 09:52 Dose: 5,000 units Hydrocortisone Sodium Succinate (Solu-Cortef) 50 mg IV 0300,0900,1500,2100 [facility] Last Admin: 04/18/17 09:54 Dose: 50 mg Meropenem 500 mg/ Sodium (Chloride) 100 mls @ 100 mls/hr IVPB Q12 ODETTE PRN Reason: Protocol Last Admin: 04/18/17 09:53 Dose: 100 mls/hr Vancomycin HCl 250 mg/ Sodium (Chloride) 100 mls @ 100 mls/hr IVPB Q24H ODETTE PRN Reason: Protocol Last Admin: 04/17/17 11:07 Dose: 100 mls/hr Tobramycin Sulfate 60 mg/ (Sodium Chloride) 101.5 mls @ 100 mls/hr IV Q24H [facility] Last Admin: 04/17/17 22:47 Dose: 100 mls/hr Fluconazole (Diflucan Iv 100 Mg/50 Ml Ns) 50 mls @ 50 mls/hr IVPB DAILY ODETTE PRN Reason: Protocol Last Admin: 04/18/17 09:52 Dose: 50 mls/hr Phenylephrine HCl 10 mg/ (Sodium Chloride) 251 mls @ 30.12 mls/hr IV .Q8H20M ODETTE; 20 MCG/MIN PRN Reason: Protocol Last Admin: 04/18/17 01:10 Dose: 10 mcg/min, 15.06 mls/hr Metolazone (Zaroxolyn) 5 mg PO DAILY [facility] Last Admin: 04/18/17 09:55 Dose: 5 mg Metronidazole (Flagyl) 250 mg PO Q8 ODETTE PRN Reason: Protocol Last Admin: 04/18/17 09:52 Dose: 250 mg Pantoprazole Sodium (Protonix Susp) 40 mg NG DAILY [facility] Last Admin: 04/18/17 09:54 Dose: 40 mg Thiamine HCl (Vitamin B1 Tab) 200 mg PO Q12H [facility] Last Admin: 04/18/17 09:55 Dose: 200 mg Results - Vital Signs Recent Vital Signs: Last Vital Signs Temp 97.5 F L 04/18/17 08:00 Pulse 96 H 04/18/17 08:00 Resp 17 04/18/17 08:00 BP 116/66 04/18/17 08:00 Pulse Ox 100 04/18/17 08:00 - Labs Result Diagrams: 04/18/17 04:20 04/18/17 04:20 Labs: Laboratory Results - last 24 hr 04/17/17 04/18/17 04/18/17 16:28 04:20 04:20 WBC RBC Hgb Hct MCV MCH MCHC RDW Plt Count MPV Neut % (Auto) Lymph % (Auto) [place] % (Auto) Eos % (Auto) Baso % (Auto) Neut # Lymph # [place] # Eos # Baso # Neutrophils % (Manual) Band Neutrophils % Lymphocytes % (Manual) Monocytes % (Manual) Metamyelocytes % Myelocytes % Platelet Estimate Hypochromasia (manual) Anisocytosis (manual) Tear Drop Cells Ovalocytes Schistocytes pCO2 pO2 HCO3 ABG pH ABG Total CO2 ABG O2 Saturation ABG O2 Content ABG Base Excess ABG Hemoglobin ABG Carboxyhemoglobin POC ABG HHb (Measured) ABG Methemoglobin ABG O2 Capacity [place] Test A-a O2 Difference Hgb O2 Saturation Vent Mode Mechanical Rate FiO2 Tidal Volume PEEP Sodium 146 Potassium 3.1 L Chloride 112 H Carbon Dioxide 21 L Anion Gap 16 BUN 28 H Creatinine 1.5 H Est GFR ( Amer) 44 Est GFR (Non-Af Amer) 36 POC Glucose (mg/dL) Random Glucose 138 H Lactic Acid 1.0 Calcium 7.9 L Magnesium 1.4 L Total Bilirubin AST ALT Alkaline Phosphatase Total Protein Albumin Globulin Albumin/Globulin Ratio Random Vancomycin 11.7 04/18/17 04/18/17 04/18/17 04:20 04:20 05:23 WBC 17.4 H RBC 2.96 L Hgb 8.0 L Hct 25.4 L MCV 85.6 MCH 27.1 MCHC 31.7 L RDW 17.8 H Plt Count 61 L MPV 9.5 Neut % (Auto) 96.9 H Lymph % (Auto) 1.6 L [place] % (Auto) 0.3 Eos % (Auto) 1.1 Baso % (Auto) 0.1 Neut # 16.9 H Lymph # 0.3 L [place] # 0.1 Eos # 0.2 Baso # 0.0 Neutrophils % (Manual) 89 H Band Neutrophils % 3 H Lymphocytes % (Manual) 5 L Monocytes % (Manual) 1 Metamyelocytes % 1 H Myelocytes % 1 H Platelet Estimate Decreased L Hypochromasia (manual) Moderate Anisocytosis (manual) Slight Tear Drop Cells Slight Ovalocytes Slight Schistocytes Slight pCO2 46 H pO2 77 L HCO3 18.8 L ABG pH 7.23 L ABG Total CO2 20.7 L ABG O2 Saturation 99.4 H ABG O2 Content 11.6 L ABG Base Excess -7.8 L ABG Hemoglobin 8.5 L ABG Carboxyhemoglobin 2.5 H POC ABG HHb (Measured) 0.6 ABG Methemoglobin 1.1 ABG O2 Capacity 11.7 L [place] Test Yes A-a O2 Difference 151.0 Hgb O2 Saturation 95.8 Vent Mode A/c Mechanical Rate 14 FiO2 40.0 Tidal Volume 450 PEEP 5 Sodium 149 H Potassium 2.8 L Chloride 113 H Carbon Dioxide 20 L Anion Gap 19 BUN 29 H Creatinine 1.4 H Est GFR ( Amer) 48 Est GFR (Non-Af Amer) 39 POC Glucose (mg/dL) Random Glucose 142 H Lactic Acid Calcium 8.2 L Magnesium Total Bilirubin 1.6 H AST 36 D ALT 42 Alkaline Phosphatase 231 H Total Protein 5.6 L Albumin 3.6 Globulin 2.0 L Albumin/Globulin Ratio 1.8 Random Vancomycin 04/18/17 11:36 WBC RBC Hgb Hct MCV MCH MCHC RDW Plt Count MPV Neut % (Auto) Lymph % (Auto) [place] % (Auto) Eos % (Auto) Baso % (Auto) Neut # Lymph # [place] # Eos # Baso # Neutrophils % (Manual) Band Neutrophils % Lymphocytes % (Manual) Monocytes % (Manual) Metamyelocytes % Myelocytes % Platelet Estimate Hypochromasia (manual) Anisocytosis (manual) Tear Drop Cells Ovalocytes Schistocytes pCO2 pO2 HCO3 ABG pH ABG Total CO2 ABG O2 Saturation ABG O2 Content ABG Base Excess ABG Hemoglobin ABG Carboxyhemoglobin POC ABG HHb (Measured) ABG Methemoglobin ABG O2 Capacity [place] Test A-a O2 Difference Hgb O2 Saturation Vent Mode Mechanical Rate FiO2 Tidal Volume PEEP Sodium Potassium Chloride Carbon Dioxide Anion Gap BUN Creatinine Est GFR ( Amer) Est GFR (Non-Af Amer) POC Glucose (mg/dL) 193 H Random Glucose Lactic Acid Calcium Magnesium Total Bilirubin AST ALT Alkaline Phosphatase Total Protein Albumin Globulin Albumin/Globulin Ratio Random Vancomycin
--- NOTE | 2017-04-18 12:10 | CP.PCM.PN ---
Subjective - Date & Time of Evaluation Date of Evaluation: 04/18/17 Time of Evaluation: 11:45 - Subjective Subjective: General Surgery- Dr. Caldera Patient seen and examined at bedside. Patient is currently intubated, responds to noxious stimuli. PEEP 5, FIO2 40. Patient currently has RIJ temp HD catheter , castillo, R.Fem central line. currently receiving tube feeds and on one pressor. at bedside during the encounter and discussed trach placement Objective - Vital Signs/Intake and Output Vital Signs (last 24 hours): Temp Pulse Resp BP Pulse Ox 97.5 F L 96 H 17 116/66 100 04/18/17 08:00 04/18/17 08:00 04/18/17 08:00 04/18/17 08:00 04/18/17 08:00 Intake and Output: 04/18/17 04/18/17 06:59 18:59 Intake Total 1631 Output Total 2950 Balance -1319 - Medications Medications: Current Medications Acetaminophen (Tylenol 650 Mg Supp) 650 mg [place] Q4 PRN PRN Reason: Temp >101 Last Admin: 04/06/17 16:15 Dose: 650 mg Acetaminophen (Tylenol 650mg/20.3ml Solution Ud) 650 mg PO Q4 PRN PRN Reason: Temperature Last Admin: 04/15/17 20:27 Dose: 650 mg Albumin Human (Albumin Human 25% (12.5 Gm/50 Ml)) 12.5 gm IV Q1H ODETTE Stop: 04/18/17 15:01 Albuterol/Ipratropium (Duoneb 3 Mg/0.5 Mg (3 Ml) Ud) 3 ml INH RQ4 PRN PRN Reason: Shortness of Breath Last Admin: 04/16/17 13:09 Dose: 3 ml Ascorbic Acid (Vitamin C 500 Mg Tab) 1,500 mg PO Q6 ODETTE Last Admin: 04/18/17 09:55 Dose: 1,500 mg Heparin Sodium (Porcine) (Heparin) 5,000 units SC Q12 ODETTE PRN Reason: Protocol Last Admin: 04/18/17 09:52 Dose: 5,000 units Hydrocortisone Sodium Succinate (Solu-Cortef) 50 mg IV 0300,0900,1500,2100 ODETTE Last Admin: 04/18/17 09:54 Dose: 50 mg Meropenem 500 mg/ Sodium (Chloride) 100 mls @ 100 mls/hr IVPB Q12 ODETTE PRN Reason: Protocol Last Admin: 04/18/17 09:53 Dose: 100 mls/hr Vancomycin HCl 250 mg/ Sodium (Chloride) 100 mls @ 100 mls/hr IVPB Q24H ODETTE PRN Reason: Protocol Last Admin: 04/17/17 11:07 Dose: 100 mls/hr Tobramycin Sulfate 60 mg/ (Sodium Chloride) 101.5 mls @ 100 mls/hr IV Q24H ODETTE Last Admin: 04/17/17 22:47 Dose: 100 mls/hr Fluconazole (Diflucan Iv 100 Mg/50 Ml Ns) 50 mls @ 50 mls/hr IVPB DAILY ODETTE PRN Reason: Protocol Last Admin: 04/18/17 09:52 Dose: 50 mls/hr Phenylephrine HCl 10 mg/ (Sodium Chloride) 251 mls @ 30.12 mls/hr IV .Q8H20M ODETTE; 20 MCG/MIN PRN Reason: Protocol Last Admin: 04/18/17 01:10 Dose: 10 mcg/min, 15.06 mls/hr Metolazone (Zaroxolyn) 5 mg PO DAILY [facility] Last Admin: 04/18/17 09:55 Dose: 5 mg Metronidazole (Flagyl) 250 mg PO Q8 ODETTE PRN Reason: Protocol Last Admin: 04/18/17 09:52 Dose: 250 mg Pantoprazole Sodium (Protonix Susp) 40 mg NG DAILY [facility] Last Admin: 04/18/17 09:54 Dose: 40 mg Thiamine HCl (Vitamin B1 Tab) 200 mg PO Q12H ODETTE Last Admin: 04/18/17 09:55 Dose: 200 mg - Labs Labs: 04/18/17 04:20 04/18/17 04:20 PT 15.8 Seconds (9.8-13.1) H 04/14/17 04:20 INR 1.4 (0.9-1.2) H 04/14/17 04:20 APTT 33.0 Seconds (25.6-37.1) 04/14/17 04:20 - Constitutional Appears: Non-toxic, No Acute Distress, Chronically Ill - Eye Exam Eye Exam: EOMI. absent: Scleral icterus - ENT Exam ENT Exam: Mucous Membranes Moist - Respiratory Exam Respiratory Exam: absent: Accessory Muscle Use, Respiratory Distress Additional comments: Intubated PEEP 5, FIO2 40 - Cardiovascular Exam Cardiovascular Exam: +S1, +S2. absent: Bradycardia, Tachycardia, Gallop, Rubs - GI/Abdominal Exam GI & Abdominal Exam: Distended, Soft. absent: Firm, Guarding, Rigid, Tenderness - Extremities Exam Extremities Exam: Pedal Edema - Neurological Exam Additional comments: responds to noxious stimuli - Skin Skin Exam: Intact. absent: Rash Assessment and Plan - Assessment and Plan (Free Text) Assessment: 51F w/ bacteremia and sepsis, intubated since 04/04 Plan: - OR for tracheostomy tomorrow - Hold tube feeds past midnight - Hold DVT PPx - medical management per ICU team - discussed w/ Dr. Werner Harris PGY1
[2017-04-18] MEDS: Potassium Chloride 20 mEq ER Tab PO SCH ×3 (13:30→20:44)
--- NOTE | 2017-04-18 16:15 | CP.CCUPN ---
CCU Subjective - Physician Review Events Since Last Encounter (Free Text): 04/18/17 16:13 alert and following commands. CCU Objective - Vital Signs / Intake & Output Intake and Output (Last 8hrs): Intake & Output 04/18/17 04/18/17 04/18/17 06:59 14:59 22:59 Intake Total 1531 Output Total 2950 Balance -1419 Intake: IV 251 Intake, Piggyback 250 Oral 60 Tube Feeding 770 Albumin 200 Output: Urine 450 Urethral (Castillo) 450 Ultrafiltrate 2500 Other: # Bowel Movements 1 - Physical Exam Head: Positive for: Atraumatic, Normocephalic. Negative for: Tenderness, Contusion Pupils: Positive for: PERRL. Negative for: Sluggish, Non-Reactive Extroacular Muscles: Positive for: EOMI. Negative for: Gaze Palsy Conjunctiva: Positive for: Normal. Negative for: Injected, Icteric Mouth: Positive for: Dry (bloody) Neck: Negative for: JVD Respiratory/Chest: Positive for: Decreased Breath Sounds, Retracting, Rhonchi, Tachypneic. Negative for: Accessory Muscle Use, Wheezes Cardiovascular: Positive for: Tachycardic. Negative for: Murmurs, Rub Abdomen: Positive for: Distention, Normal Bowel Sounds. Negative for: Tenderness Upper Extremity: Positive for: Edema Lower Extremity: Positive for: Edema. Negative for: CALF TENDERNESS, NORMAL PULSES, Cyanosis Psychiatric: Positive for: Alert - Medications Active Medications: Active Medications Generic Name Dose Route Start Last Admin Trade Name Freq PRN Reason Stop Dose Admin Acetaminophen 650 mg 04/06/17 05:00 04/06/17 16:15 Tylenol 650 Mg Supp AL 650 mg Q4 PRN Administration Temp >101 Acetaminophen 650 mg 04/07/17 04:12 04/15/17 20:27 Tylenol 650mg/20.3ml Solution Ud PO 650 mg Q4 PRN Administration Temperature Albuterol/Ipratropium 3 ml 04/04/17 19:10 04/16/17 13:09 Duoneb 3 Mg/0.5 Mg (3 Ml) Ud INH 3 ml RQ4 PRN Administration Shortness of Breath Ascorbic Acid 1,500 mg 04/13/17 10:00 04/18/17 09:55 Vitamin C 500 Mg Tab PO 1,500 mg Q6 ODETTE Administration Furosemide 40 mg 04/18/17 13:15 Lasix IV 04/19/17 01:16 Q12H ODETTE Heparin Sodium (Porcine) 5,000 units 04/16/17 10:30 04/18/17 09:52 Heparin SC 5,000 units Q12 ODETTE Administration Protocol Hydrocortisone Sodium Succinate 50 mg 04/18/17 03:00 04/18/17 09:54 Solu-Cortef IV 50 mg 0300,0900,1500,2100 ODETTE Administration Meropenem 500 mg/ Sodium 100 mls @ 100 mls/hr 04/06/17 10:45 04/18/17 09:53 Chloride IVPB 100 mls/hr Q12 ODETTE Administration Protocol Vancomycin HCl 250 mg/ Sodium 100 mls @ 100 mls/hr 04/11/17 09:45 04/17/17 11 :07 Chloride IVPB 100 mls/hr Q24H ODETTE Administration Protocol Tobramycin Sulfate 60 mg/ 101.5 mls @ 100 mls/hr 04/11/17 18:30 04/17/17 22: 47 Sodium Chloride IV 100 mls/hr Q24H ODETTE Administration Fluconazole 50 mls @ 50 mls/hr 04/16/17 09:00 04/18/17 09:52 Diflucan Iv 100 Mg/50 Ml Ns IVPB 50 mls/hr DAILY ODETTE Administration Protocol Phenylephrine HCl 10 mg/ 251 mls @ 30.12 mls/hr 04/16/17 10:30 04/18/17 01:10 Sodium Chloride IV 10 mcg/min .Q8H20M ODETTE 15.06 mls/hr Protocol Administration 20 MCG/MIN Metolazone 5 mg 04/13/17 10:45 04/18/17 09:55 Zaroxolyn PO 5 mg DAILY ODETTE Administration Metronidazole 250 mg 04/17/17 17:30 04/18/17 09:52 Flagyl PO 250 mg Q8 ODETTE Administration Protocol Pantoprazole Sodium 40 mg 04/14/17 10:30 04/18/17 09:54 Protonix Susp NG 40 mg DAILY ODETTE Administration Potassium Chloride 40 meq 04/18/17 13:30 K-Dur 20 Meq Er Tab PO 04/19/17 01:31 Q4H ODETTE Thiamine HCl 200 mg 04/13/17 21:00 04/18/17 09:55 Vitamin B1 Tab PO 200 mg Q12H ODETTE Administration - Patient Studies Lab Studies: Microbiology Studies 04/17/17 05:30 Blood Culture - Preliminary Blood NO GROWTH AFTER 24 HOURS 04/12/17 19:00 Blood Culture - Final Blood-Venous NO GROWTH AFTER 5 DAYS Gram Stain - Final TEST NOT PERFORMED Lab Studies 04/18/17 04/18/17 04/18/17 Range/Units 11:36 05:23 04:20 WBC (4.8-10.8) K/uL RBC (3.80-5.20) Mil/uL Hgb (12.0-16.0) g/dL Hct (34.0-47.0) % MCV (81.0-99.0) fl MCH (27.0-31.0) pg MCHC (33.0-37.0) g/dL RDW (11.5-14.5) % Plt Count (130-400) K/uL MPV (7.2-11.7) fl Neut % (Auto) (50.0-75.0) % Lymph % (Auto) (20.0-40.0) % Conway % (Auto) (0.0-10.0) % Eos % (Auto) (0.0-4.0) % Baso % (Auto) (0.0-2.0) % Neut # (1.8-7.0) K/uL Lymph # (1.0-4.3) K/uL Conway # (0.0-0.8) K/uL Eos # (0.0-0.7) K/uL Baso # (0.0-0.2) K/uL Neutrophils % (Manual) (42-75) % Band Neutrophils % (0-2) % Lymphocytes % (Manual) (20-50) % Monocytes % (Manual) (0-10) % Metamyelocytes % (0-0) % Myelocytes % (0-0) % Platelet Estimate (NORMAL) Hypochromasia (manual) Anisocytosis (manual) Tear Drop Cells Ovalocytes Schistocytes pCO2 46 H (35-45) mm/Hg pO2 77 L (80-100) mm/Hg HCO3 18.8 L (21-28) mmol/L ABG pH 7.23 L (7.35-7.45) ABG Total CO2 20.7 L (22-28) mmol/L ABG O2 Saturation 99.4 H (95-98) % ABG O2 Content 11.6 L (15-23) ML/dL ABG Base Excess -7.8 L (-2.0-3.0) mmol/L ABG Hemoglobin 8.5 L (11.7-17.4) g/dL ABG Carboxyhemoglobin 2.5 H (0.5-1.5) % POC ABG HHb (Measured) 0.6 (0.0-5.0) % ABG Methemoglobin 1.1 (0.0-3.0) % ABG O2 Capacity 11.7 L (16-24) mL/dL Domingo Test Yes A-a O2 Difference 151.0 mm/Hg Hgb O2 Saturation 95.8 (95.0-98.0) % Vent Mode A/c Mechanical Rate 14 FiO2 40.0 % Tidal Volume 450 PEEP 5 Sodium 149 H (132-148) mmol/l Potassium 2.8 L (3.6-5.0) MMOL/L Chloride 113 H (98-107) mmol/L Carbon Dioxide 20 L (22-30) mmol/L Anion Gap 19 (10-20) BUN 29 H (7-17) mg/dl Creatinine 1.4 H (0.7-1.2) mg/dl Est GFR ( Amer) 48 Est GFR (Non-Af Amer) 39 POC Glucose (mg/dL) 193 H (65-110) mg/dL Random Glucose 142 H (65-105) mg/dL Lactic Acid (0.7-2.1) MMOL/L Calcium 8.2 L (8.4-10.2) mg/dL Magnesium (1.6-2.3) MG/DL Total Bilirubin 1.6 H (0.2-1.3) mg/dl AST 36 D (14-36) U/L ALT 42 (9-52) U/L Alkaline Phosphatase 231 H (38-126) U/L Total Protein 5.6 L (6.3-8.2) G/DL Albumin 3.6 (3.5-5.0) g/dL Globulin 2.0 L (2.2-3.9) gm/dL Albumin/Globulin Ratio 1.8 (1.0-2.1) Random Vancomycin ug/mL C. difficile Ag & Toxin (NEGATIVE) 04/18/17 04/18/17 04/18/17 Range/Units 04:20 04:20 04:20 WBC 17.4 H (4.8-10.8) K/uL RBC 2.96 L (3.80-5.20) Mil/uL Hgb 8.0 L (12.0-16.0) g/dL Hct 25.4 L (34.0-47.0) % MCV 85.6 (81.0-99.0) fl MCH 27.1 (27.0-31.0) pg MCHC 31.7 L (33.0-37.0) g/dL RDW 17.8 H (11.5-14.5) % Plt Count 61 L (130-400) K/uL MPV 9.5 (7.2-11.7) fl Neut % (Auto) 96.9 H (50.0-75.0) % Lymph % (Auto) 1.6 L (20.0-40.0) % Conway % (Auto) 0.3 (0.0-10.0) % Eos % (Auto) 1.1 (0.0-4.0) % Baso % (Auto) 0.1 (0.0-2.0) % Neut # 16.9 H (1.8-7.0) K/uL Lymph # 0.3 L (1.0-4.3) K/uL Conway # 0.1 (0.0-0.8) K/uL Eos # 0.2 (0.0-0.7) K/uL Baso # 0.0 (0.0-0.2) K/uL Neutrophils % (Manual) 89 H (42-75) % Band Neutrophils % 3 H (0-2) % Lymphocytes % (Manual) 5 L (20-50) % Monocytes % (Manual) 1 (0-10) % Metamyelocytes % 1 H (0-0) % Myelocytes % 1 H (0-0) % Platelet Estimate Decreased L (NORMAL) Hypochromasia (manual) Moderate Anisocytosis (manual) Slight Tear Drop Cells Slight Ovalocytes Slight Schistocytes Slight pCO2 (35-45) mm/Hg pO2 (80-100) mm/Hg HCO3 (21-28) mmol/L ABG pH (7.35-7.45) ABG Total CO2 (22-28) mmol/L ABG O2 Saturation (95-98) % ABG O2 Content (15-23) ML/dL ABG Base Excess (-2.0-3.0) mmol/L ABG Hemoglobin (11.7-17.4) g/dL ABG Carboxyhemoglobin (0.5-1.5) % POC ABG HHb (Measured) (0.0-5.0) % ABG Methemoglobin (0.0-3.0) % ABG O2 Capacity (16-24) mL/dL Domingo Test A-a O2 Difference mm/Hg Hgb O2 Saturation (95.0-98.0) % Vent Mode Mechanical Rate FiO2 % Tidal Volume PEEP Sodium (132-148) mmol/l Potassium (3.6-5.0) MMOL/L Chloride (98-107) mmol/L Carbon Dioxide (22-30) mmol/L Anion Gap (10-20) BUN (7-17) mg/dl Creatinine (0.7-1.2) mg/dl Est GFR ( Amer) Est GFR (Non-Af Amer) POC Glucose (mg/dL) (65-110) mg/dL Random Glucose (65-105) mg/dL Lactic Acid 1.0 (0.7-2.1) MMOL/L Calcium (8.4-10.2) mg/dL Magnesium (1.6-2.3) MG/DL Total Bilirubin (0.2-1.3) mg/dl AST (14-36) U/L ALT (9-52) U/L Alkaline Phosphatase (38-126) U/L Total Protein (6.3-8.2) G/DL Albumin (3.5-5.0) g/dL Globulin (2.2-3.9) gm/dL Albumin/Globulin Ratio (1.0-2.1) Random Vancomycin 11.7 ug/mL C. difficile Ag & Toxin (NEGATIVE) 04/17/17 04/17/17 Range/Units 18:36 16:28 WBC (4.8-10.8) K/uL RBC (3.80-5.20) Mil/uL Hgb (12.0-16.0) g/dL Hct (34.0-47.0) % MCV (81.0-99.0) fl MCH (27.0-31.0) pg MCHC (33.0-37.0) g/dL RDW (11.5-14.5) % Plt Count (130-400) K/uL MPV (7.2-11.7) fl Neut % (Auto) (50.0-75.0) % Lymph % (Auto) (20.0-40.0) % Conway % (Auto) (0.0-10.0) % Eos % (Auto) (0.0-4.0) % Baso % (Auto) (0.0-2.0) % Neut # (1.8-7.0) K/uL Lymph # (1.0-4.3) K/uL Conway # (0.0-0.8) K/uL Eos # (0.0-0.7) K/uL Baso # (0.0-0.2) K/uL Neutrophils % (Manual) (42-75) % Band Neutrophils % (0-2) % Lymphocytes % (Manual) (20-50) % Monocytes % (Manual) (0-10) % Metamyelocytes % (0-0) % Myelocytes % (0-0) % Platelet Estimate (NORMAL) Hypochromasia (manual) Anisocytosis (manual) Tear Drop Cells Ovalocytes Schistocytes pCO2 (35-45) mm/Hg pO2 (80-100) mm/Hg HCO3 (21-28) mmol/L ABG pH (7.35-7.45) ABG Total CO2 (22-28) mmol/L ABG O2 Saturation (95-98) % ABG O2 Content (15-23) ML/dL ABG Base Excess (-2.0-3.0) mmol/L ABG Hemoglobin (11.7-17.4) g/dL ABG Carboxyhemoglobin (0.5-1.5) % POC ABG HHb (Measured) (0.0-5.0) % ABG Methemoglobin (0.0-3.0) % ABG O2 Capacity (16-24) mL/dL Domingo Test A-a O2 Difference mm/Hg Hgb O2 Saturation (95.0-98.0) % Vent Mode Mechanical Rate FiO2 % Tidal Volume PEEP Sodium 146 (132-148) mmol/l Potassium 3.1 L (3.6-5.0) MMOL/L Chloride 112 H (98-107) mmol/L Carbon Dioxide 21 L (22-30) mmol/L Anion Gap 16 (10-20) BUN 28 H (7-17) mg/dl Creatinine 1.5 H (0.7-1.2) mg/dl Est GFR ( Amer) 44 Est GFR (Non-Af Amer) 36 POC Glucose (mg/dL) (65-110) mg/dL Random Glucose 138 H (65-105) mg/dL Lactic Acid (0.7-2.1) MMOL/L Calcium 7.9 L (8.4-10.2) mg/dL Magnesium 1.4 L (1.6-2.3) MG/DL Total Bilirubin (0.2-1.3) mg/dl AST (14-36) U/L ALT (9-52) U/L Alkaline Phosphatase (38-126) U/L Total Protein (6.3-8.2) G/DL Albumin (3.5-5.0) g/dL Globulin (2.2-3.9) gm/dL Albumin/Globulin Ratio (1.0-2.1) Random Vancomycin ug/mL C. difficile Ag & Toxin Negative (NEGATIVE) Laboratory Results - last 24 hr 04/17/17 04/17/17 04/18/17 16:28 18:36 04:20 WBC RBC Hgb Hct MCV MCH MCHC RDW Plt Count MPV Neut % (Auto) Lymph % (Auto) Conway % (Auto) Eos % (Auto) Baso % (Auto) Neut # Lymph # Conway # Eos # Baso # Neutrophils % (Manual) Band Neutrophils % Lymphocytes % (Manual) Monocytes % (Manual) Metamyelocytes % Myelocytes % Platelet Estimate Hypochromasia (manual) Anisocytosis (manual) Tear Drop Cells Ovalocytes Schistocytes pCO2 pO2 HCO3 ABG pH ABG Total CO2 ABG O2 Saturation ABG O2 Content ABG Base Excess ABG Hemoglobin ABG Carboxyhemoglobin POC ABG HHb (Measured) ABG Methemoglobin ABG O2 Capacity Domingo Test A-a O2 Difference Hgb O2 Saturation Vent Mode Mechanical Rate FiO2 Tidal Volume PEEP Sodium 146 Potassium 3.1 L Chloride 112 H Carbon Dioxide 21 L Anion Gap 16 BUN 28 H Creatinine 1.5 H Est GFR ( Amer) 44 Est GFR (Non-Af Amer) 36 POC Glucose (mg/dL) Random Glucose 138 H Lactic Acid Calcium 7.9 L Magnesium 1.4 L Total Bilirubin AST ALT Alkaline Phosphatase Total Protein Albumin Globulin Albumin/Globulin Ratio Random Vancomycin 11.7 C. difficile Ag & Toxin Negative 04/18/17 04/18/17 04/18/17 04:20 04:20 04:20 WBC 17.4 H RBC 2.96 L Hgb 8.0 L Hct 25.4 L MCV 85.6 MCH 27.1 MCHC 31.7 L RDW 17.8 H Plt Count 61 L MPV 9.5 Neut % (Auto) 96.9 H Lymph % (Auto) 1.6 L Conway % (Auto) 0.3 Eos % (Auto) 1.1 Baso % (Auto) 0.1 Neut # 16.9 H Lymph # 0.3 L Conway # 0.1 Eos # 0.2 Baso # 0.0 Neutrophils % (Manual) 89 H Band Neutrophils % 3 H Lymphocytes % (Manual) 5 L Monocytes % (Manual) 1 Metamyelocytes % 1 H Myelocytes % 1 H Platelet Estimate Decreased L Hypochromasia (manual) Moderate Anisocytosis (manual) Slight Tear Drop Cells Slight Ovalocytes Slight Schistocytes Slight pCO2 pO2 HCO3 ABG pH ABG Total CO2 ABG O2 Saturation ABG O2 Content ABG Base Excess ABG Hemoglobin ABG Carboxyhemoglobin POC ABG HHb (Measured) ABG Methemoglobin ABG O2 Capacity Domingo Test A-a O2 Difference Hgb O2 Saturation Vent Mode Mechanical Rate FiO2 Tidal Volume PEEP Sodium 149 H Potassium 2.8 L Chloride 113 H Carbon Dioxide 20 L Anion Gap 19 BUN 29 H Creatinine 1.4 H Est GFR ( Amer) 48 Est GFR (Non-Af Amer) 39 POC Glucose (mg/dL) Random Glucose 142 H Lactic Acid 1.0 Calcium 8.2 L Magnesium Total Bilirubin 1.6 H AST 36 D ALT 42 Alkaline Phosphatase 231 H Total Protein 5.6 L Albumin 3.6 Globulin 2.0 L Albumin/Globulin Ratio 1.8 Random Vancomycin C. difficile Ag & Toxin 04/18/17 04/18/17 05:23 11:36 WBC RBC Hgb Hct MCV MCH MCHC RDW Plt Count MPV Neut % (Auto) Lymph % (Auto) Conway % (Auto) Eos % (Auto) Baso % (Auto) Neut # Lymph # Conway # Eos # Baso # Neutrophils % (Manual) Band Neutrophils % Lymphocytes % (Manual) Monocytes % (Manual) Metamyelocytes % Myelocytes % Platelet Estimate Hypochromasia (manual) Anisocytosis (manual) Tear Drop Cells Ovalocytes Schistocytes pCO2 46 H pO2 77 L HCO3 18.8 L ABG pH 7.23 L ABG Total CO2 20.7 L ABG O2 Saturation 99.4 H ABG O2 Content 11.6 L ABG Base Excess -7.8 L ABG Hemoglobin 8.5 L ABG Carboxyhemoglobin 2.5 H POC ABG HHb (Measured) 0.6 ABG Methemoglobin 1.1 ABG O2 Capacity 11.7 L Domingo Test Yes A-a O2 Difference 151.0 Hgb O2 Saturation 95.8 Vent Mode A/c Mechanical Rate 14 FiO2 40.0 Tidal Volume 450 PEEP 5 Sodium Potassium Chloride Carbon Dioxide Anion Gap BUN Creatinine Est GFR ( Amer) Est GFR (Non-Af Amer) POC Glucose (mg/dL) 193 H Random Glucose Lactic Acid Calcium Magnesium Total Bilirubin AST ALT Alkaline Phosphatase Total Protein Albumin Globulin Albumin/Globulin Ratio Random Vancomycin C. difficile Ag & Toxin Fingerstick Blood Sugar Results: 221 Review of Systems - Review of Systems Systems not reviewed;Unavailable: Intubated Critical Care Progress Note - Ventilator Checklist Head of Bed 30 Degrees: Yes Daily Sedation Vacation: Yes Daily Assessment of Readiness to Wean: Yes Daily Spontaneous Breathing Trial: Yes PUD Prophalyxis: Yes DVT Prophylaxis: Yes - Nutrition Nutrition: Nutrition Category Date Time Status NPO Diet [DIET] Diets 04/19/17 Breakfast Active Assessment/Plan (1) Acute renal failure (ARF) Assessment and plan: 51yo F. PMHx ovarian CA s/p RODRIGO/BSO (in remission since 2014), SB enteritis s/p ex-lap with WILNER (01/04/17) which was c/b VAP, ascites with drain placement and post-op PE (IVC filter, now on Xarelto), right hydronephrosis with ureteral stent placement (now removed). p/w acute renal failure with severe metabolic acidosis, oozing blood from oropharynx and possible traumatic castillo placement. Dialysis started (04/04). Neuro: alert and following commands, all sedation held. Pulm: on PRVC. Patient failed PS trial today, with desaturation, despite improvement in CXR with decent fluid removal, she is deconditioned, consulted Surgery for trach placement - tomorrow. CV: hypotensive during dialysis, added albumin drip and phenylephrine during dialysis, will titrate off pressor. Hem: anemia slowly dropping will monitor, and thrombocytopenia, stabilizing low. leucocytosis from septic source, now worsening, re-culturing - so far negative. Replace TLC with PICC line tomorrow. Renal: acute kidney injury, on dialysis. dialyzed, 2.5L/day x 2 days, now switching to diuretics as per Renal. Continue Metolazone added Lasix 40mg IV q12h. Patient may no longer need dialysis catheter, she is making good urine. Endo: no acute issues GI: NPO, Vital@70. GI - Dr. Nixon ID: severe sepsis from gram negative bacteremia ESBL Kelbsiella, E. Faecalis ( blood), pseudomonas (trach asp), yeast (urine). Continue Meropenem, Fluconazole , Tobramycin, and Vancomycin. Continue steroids, Vitamin C and thiamine. DVT proph - SCD's, heparin sq GI proph - protonix po castillo for strict I/O's during acute illness Code status - full code Right femoral TLC (04/04) Left IJ Shiley (04/04) Critical Care Time spent 40 minutes Multi-disciplinary rounds were performed with house staff, nursing, speech therapy, respiratory therapy, pharmacy and nutrition with integrated input from the primary team/attending and other consulting services. The documented time is cumulative and includes review of patient data/exams/labs/chart review and examination of the patient on rounds and throughout the day; time is exclusive of any procedures or teaching time. Current Visit: Yes Status: Acute Priority: High
--- NOTE | 2017-04-18 16:17 | CP.PCM.PN ---
Subjective - Date & Time of Evaluation Date of Evaluation: 04/18/17 Time of Evaluation: 16:11 - Subjective Subjective: Follow up Nephrology Consultation Note Assessment: critical Acute Kidney Injury (N17.9) likely due to acute tubular necrosis due to septic shock Acute respi failure Hypomagnesemia, Hypokalemia, Hypernatremia Sepsis with shock Obesity hx of ovarian CA s/p RODRIGO/BSO, DVT s/p IVC filter Anemia Plan No acute need for renal replacement therapy today. fluid status improved, making more urine. suggest trial of IV lasix. pt also on metolazone supplement electrolytes as oral KDUR 40 meq q 4 hr x 4 doses today. add free water 250 mL q6 hr Monitor Input/Output, daily weights and renal function with basic metabolic panel Dose meds/antibiotics for improved GFR. Avoid fleets enema/magnesium based laxatives. Avoid nephrotoxins/NSAIDs/ iodinated contrast (unless needed emergently) Glycemic control Further work up for as per primary team Thanks for allowing me to participate in care of your patient. Will follow patient with you. Please call if any Qs. d/w ICU team Dr Reji Nunez Office: [phone] Subjective: Noted events overnight. Patients intubated, planned for trach tomorrow. unable to obtain hx from patient. on phenylephrine drip had isolated UF on weekend. making more urine Physical Examination: General Appearance: Comfortable, in no acute respiratory distress, ill appearing , mechanically ventilated Vitals reviewed and noted as below Lungs: Normal respiratory rate/effort. Breath sounds bilateral equal and clear Heart: Normal rate. s1s2 normal. No rub or gallop. Extremities: no edema. Neurological: Patient is sleepy, not communicative Skin: Warm and dry. Normal turgor. No rash. Palpitation: Normal elasticity for age Abdomen: Abdomen is soft. Bowel sounds +. There is no abdominal tenderness, no guarding/rigidity or organomegaly : kidney or bladder not palpable Access: shiley Head; Atraumatic, normocephalic ENT: no ulcers no thrush. she is orally intubated EYES: Pupils are equal, round and reactive to light accommodation. Eye muscles and extraocular movement intact. Sclera is anicteric. Neck; supple no lymphadenopathy, no thyromegaly or bruit Psych: Unable MSK: no joint tenderness or swelling. Digits and nails normal, no deformity Labs/imaging reviewed. Past medical history, past surgical history, family history, social history, allergy reviewed family hx No hx of CKD Objective - Vital Signs/Intake and Output Vital Signs (last 24 hours): Temp Pulse Resp BP Pulse Ox 96.9 F L 88 14 111/55 L 97 04/18/17 12:00 04/18/17 12:00 04/18/17 12:00 04/18/17 12:00 04/18/17 12:00 Intake and Output: 04/18/17 04/18/17 06:59 18:59 Intake Total 1631 Output Total 2950 Balance -1319 - Medications Medications: Current Medications Acetaminophen (Tylenol 650 Mg Supp) 650 mg PA Q4 PRN PRN Reason: Temp >101 Last Admin: 04/06/17 16:15 Dose: 650 mg Acetaminophen (Tylenol 650mg/20.3ml Solution Ud) 650 mg PO Q4 PRN PRN Reason: Temperature Last Admin: 04/15/17 20:27 Dose: 650 mg Albuterol/Ipratropium (Duoneb 3 Mg/0.5 Mg (3 Ml) Ud) 3 ml INH RQ4 PRN PRN Reason: Shortness of Breath Last Admin: 04/16/17 13:09 Dose: 3 ml Ascorbic Acid (Vitamin C 500 Mg Tab) 1,500 mg PO Q6 ODETTE Last Admin: 04/18/17 09:55 Dose: 1,500 mg Furosemide (Lasix) 40 mg IV Q12H ODETTE Stop: 04/19/17 01:16 Heparin Sodium (Porcine) (Heparin) 5,000 units SC Q12 ODETTE PRN Reason: Protocol Last Admin: 04/18/17 09:52 Dose: 5,000 units Hydrocortisone Sodium Succinate (Solu-Cortef) 50 mg IV 0300,0900,1500,2100 ODETTE Last Admin: 04/18/17 09:54 Dose: 50 mg Meropenem 500 mg/ Sodium (Chloride) 100 mls @ 100 mls/hr IVPB Q12 ODETTE PRN Reason: Protocol Last Admin: 04/18/17 09:53 Dose: 100 mls/hr Vancomycin HCl 250 mg/ Sodium (Chloride) 100 mls @ 100 mls/hr IVPB Q24H ODETTE PRN Reason: Protocol Last Admin: 04/17/17 11:07 Dose: 100 mls/hr Tobramycin Sulfate 60 mg/ (Sodium Chloride) 101.5 mls @ 100 mls/hr IV Q24H ODETTE Last Admin: 04/17/17 22:47 Dose: 100 mls/hr Fluconazole (Diflucan Iv 100 Mg/50 Ml Ns) 50 mls @ 50 mls/hr IVPB DAILY ODETTE PRN Reason: Protocol Last Admin: 04/18/17 09:52 Dose: 50 mls/hr Phenylephrine HCl 10 mg/ (Sodium Chloride) 251 mls @ 30.12 mls/hr IV .Q8H20M ODETTE; 20 MCG/MIN PRN Reason: Protocol Last Admin: 04/18/17 01:10 Dose: 10 mcg/min, 15.06 mls/hr Metolazone (Zaroxolyn) 5 mg PO DAILY [facility] Last Admin: 04/18/17 09:55 Dose: 5 mg Metronidazole (Flagyl) 250 mg PO Q8 ODETTE PRN Reason: Protocol Last Admin: 04/18/17 09:52 Dose: 250 mg Pantoprazole Sodium (Protonix Susp) 40 mg NG DAILY ODETTE Last Admin: 04/18/17 09:54 Dose: 40 mg Potassium Chloride (K-Dur 20 Meq Er Tab) 40 meq PO Q4H ODETTE Stop: 04/19/17 01:31 Thiamine HCl (Vitamin B1 Tab) 200 mg PO Q12H [facility] Last Admin: 04/18/17 09:55 Dose: 200 mg - Labs Labs: 04/18/17 04:20 04/18/17 04:20 PT 15.8 Seconds (9.8-13.1) H 04/14/17 04:20 INR 1.4 (0.9-1.2) H 04/14/17 04:20 APTT 33.0 Seconds (25.6-37.1) 04/14/17 04:20
--- NOTE | 2017-04-18 17:16 | CP.PCM.PN ---
Subjective - Date & Time of Evaluation Date of Evaluation: 04/18/17 Time of Evaluation: 12:15 - Subjective Subjective: F/U Respiratory Failure. Pt not responding to verbal or tactile stimuli today, CPAP unsuccessfully. Objective - Vital Signs/Intake and Output Vital Signs (last 24 hours): Temp Pulse Resp BP Pulse Ox 96.9 F L 88 14 111/55 L 97 04/18/17 12:00 04/18/17 12:00 04/18/17 12:00 04/18/17 12:00 04/18/17 12:00 Intake and Output: 04/18/17 04/18/17 06:59 18:59 Intake Total 1631 Output Total 2950 Balance -1319 - Medications Medications: Current Medications Acetaminophen (Tylenol 650 Mg Supp) 650 mg SD Q4 PRN PRN Reason: Temp >101 Last Admin: 04/06/17 16:15 Dose: 650 mg Acetaminophen (Tylenol 650mg/20.3ml Solution Ud) 650 mg PO Q4 PRN PRN Reason: Temperature Last Admin: 04/15/17 20:27 Dose: 650 mg Albuterol/Ipratropium (Duoneb 3 Mg/0.5 Mg (3 Ml) Ud) 3 ml INH RQ4 PRN PRN Reason: Shortness of Breath Last Admin: 04/16/17 13:09 Dose: 3 ml Ascorbic Acid (Vitamin C 500 Mg Tab) 1,500 mg PO Q6 ODETTE Last Admin: 04/18/17 09:55 Dose: 1,500 mg Furosemide (Lasix) 40 mg IV Q12H [facility] Stop: 04/19/17 01:16 Heparin Sodium (Porcine) (Heparin) 5,000 units SC Q12 ODETTE PRN Reason: Protocol Last Admin: 04/18/17 09:52 Dose: 5,000 units Hydrocortisone Sodium Succinate (Solu-Cortef) 50 mg IV 0300,0900,1500,2100 ODETTE Last Admin: 04/18/17 09:54 Dose: 50 mg Meropenem 500 mg/ Sodium (Chloride) 100 mls @ 100 mls/hr IVPB Q12 ODETTE PRN Reason: Protocol Last Admin: 04/18/17 09:53 Dose: 100 mls/hr Vancomycin HCl 250 mg/ Sodium (Chloride) 100 mls @ 100 mls/hr IVPB Q24H ODETTE PRN Reason: Protocol Last Admin: 04/17/17 11:07 Dose: 100 mls/hr Tobramycin Sulfate 60 mg/ (Sodium Chloride) 101.5 mls @ 100 mls/hr IV Q24H [facility] Last Admin: 04/17/17 22:47 Dose: 100 mls/hr Fluconazole (Diflucan Iv 100 Mg/50 Ml Ns) 50 mls @ 50 mls/hr IVPB DAILY ODETTE PRN Reason: Protocol Last Admin: 04/18/17 09:52 Dose: 50 mls/hr Phenylephrine HCl 10 mg/ (Sodium Chloride) 251 mls @ 30.12 mls/hr IV .Q8H20M ODETTE; 20 MCG/MIN PRN Reason: Protocol Last Admin: 04/18/17 01:10 Dose: 10 mcg/min, 15.06 mls/hr Metolazone (Zaroxolyn) 5 mg PO DAILY [facility] Last Admin: 04/18/17 09:55 Dose: 5 mg Metronidazole (Flagyl) 250 mg PO Q8 ODETTE PRN Reason: Protocol Last Admin: 04/18/17 09:52 Dose: 250 mg Pantoprazole Sodium (Protonix Susp) 40 mg NG DAILY [facility] Last Admin: 04/18/17 09:54 Dose: 40 mg Potassium Chloride (K-Dur 20 Meq Er Tab) 40 meq PO Q4H [facility] Stop: 04/19/17 01:31 Thiamine HCl (Vitamin B1 Tab) 200 mg PO Q12H [facility] Last Admin: 04/18/17 09:55 Dose: 200 mg - Labs Labs: 04/18/17 04:20 04/18/17 04:20 PT 15.8 Seconds (9.8-13.1) H 04/14/17 04:20 INR 1.4 (0.9-1.2) H 04/14/17 04:20 APTT 33.0 Seconds (25.6-37.1) 04/14/17 04:20 - Constitutional Appears: Chronically Ill - Head Exam Head Exam: NORMAL INSPECTION - Eye Exam Eye Exam: PERRL - ENT Exam Additional comments: Intubated - Neck Exam Neck Exam: Normal Inspection - Respiratory Exam Respiratory Exam: Rhonchi (scattered) - Cardiovascular Exam Cardiovascular Exam: REGULAR RHYTHM - GI/Abdominal Exam GI & Abdominal Exam: Soft, Normal Bowel Sounds - Extremities Exam Extremities Exam: Pedal Edema Additional comments: L heel DTI, R lateral ankle DTI, MSAD posterior thigh. - Neurological Exam Neurological Exam: Awake Additional comments: No following commands. - Skin Skin Exam: Warm Assessment and Plan (1) Acute respiratory failure Status: Acute (2) Shock Status: Deleted (3) Pneumonia Status: Acute (4) Acute renal failure (ARF) Status: Acute (5) Anemia Status: Acute (6) Hematuria, gross Status: Deleted (7) Thrombocytopenia Status: Resolved (8) History of pulmonary embolus (PE) Status: Acute (9) Pancolitis Status: Deleted - Assessment and Plan (Free Text) Plan: For Tracheotomy tomorrow, continue rest of Tx.
[2017-04-18] MEDS: Tobramycin inj 60 MG in Sodium Chloride 0.9% 100 ML IV SCH (17:31)
[2017-04-19] MEDS ORDERED: Potassium Chloride 20 mEq/15 ml LIQ UD GT SCH (00:15)
[2017-04-19] MEDS: Hydrocortisone Succinat 250 MG vial IV SCH ×3 (02:13→15:00)
[2017-04-19 05:21] LABS: ABG ALLEN TEST YES; ABG MECHANICAL RATE 14; ARTERIAL BLOOD GAS HCO3 19.6 mmol/L (21-28); ARTERIAL BLOOD GAS MODE A/C; ARTERIAL BLOOD GAS O2 CAPACITY 12.8 mL/dL (16-24); ARTERIAL BLOOD GAS O2 CONTENT 12.8 ML/dL (15-23); ARTERIAL BLOOD GAS PH 7.27 (7.35-7.45); ARTERIAL BLOOD GAS PO2 96 mm/Hg (80-100); ARTERIAL BLOOD HGB O2 SAT 96.3 % (95.0-98.0); ATERIAL BLOOD GAS PEEP 5; CARBOXYHEMOGLOBIN 2.1 % (0.5-1.5); HHB 0.2 % (0.0-5.0); METHEMOGLOBIN 1.5 % (0.0-3.0)
[2017-04-19 06:11] LABS: MEAN CELL VOLUME 85.7 fl (81.0-99.0); MEAN CORPUSCULAR HGB CONC 31.5 g/dL (33.0-37.0); RED CELL DISTRIBUTION WIDTH 17.6 % (11.5-14.5); WHITE BLOOD COUNT 20.6 K/uL (4.8-10.8)
[2017-04-19 06:47] LABS: MAGNESIUM 1.8 MG/DL (1.6-2.3); POTASSIUM 3.4 MMOL/L (3.6-5.0)
--- NOTE | 2017-04-19 08:24 | CP.CCUPN ---
CCU Subjective - Physician Review Events Since Last Encounter (Free Text): 04/19/17 15:47 The patient was Seen/interviewed and examined by me at the bedside during ICU round, Medical records reviewed and Management issues were discussed and formulated with the house staff. Mrs Scales is a 51 Years old female critically sick, orally intubated for acute hypoxemic Respiratory Failure secondary to pneumonia & Septic Shock and bacteremia from Psudomonas and Kleb pneumoniae (ESBL) in ABD wound & Acute Renal Failure on Hemodialysis And possible Ischemic Bowel Clinically, hemodynamically slightly improved, Off vasopressors and inotropic support Off sedation, little more Awake today and following commands. Orally intubated, Vent sitting PRVC 450/14/50% with PEEP of 5, saturating mid 90s Pt. suctioned, Thick yellow secretions removed. 04/11, underwent ABD CT scan today to evaluate for the source of infection, showing Campos colitis and she had HD after the CT scan Pt Afebrile Last 24H I&O 625/1100 NSR on the monitor This morning labs revealed worsening Leucocytosis, severe thrombocytopenia but Plat count improved 61--->70 Improved renal function, Cr down to 1.4, K of 3.4 and good urine output after 40 mg IV Lasix received yesterday Most recent Blood C/S 04/17 negative, Urine Pos for yeast Scheduled for Trach today ABG of 7.24/43/96/19/99.8% Will decrease FIO2 to 40% Critical Care Time Spent (in minutes): 48 CCU Objective - Vital Signs / Intake & Output Vital Signs (Last 4 hours): Vital Signs Temp Pulse Resp BP Pulse Ox 04/19/17 08:00 98.7 F 115 H 18 129/65 98 04/19/17 06:00 112 H 18 127/69 99 Intake and Output (Last 8hrs): Intake & Output 04/18/17 04/19/17 04/19/17 22:59 06:59 14:59 Intake Total 370 256 Output Total 1100 Balance 370 -844 Weight 186 lb Intake: IV 10 16 Intake, Piggyback 100 Oral 50 Tube Feeding 210 140 Free Water Flush 50 50 Output: Urine 1100 Urethral (Overton) 1100 Other: # Bowel Movements 1 - Physical Exam Head: Positive for: Atraumatic, Normocephalic. Negative for: Tenderness, Contusion Pupils: Positive for: PERRL. Negative for: Sluggish, Non-Reactive Extroacular Muscles: Positive for: EOMI. Negative for: Gaze Palsy Conjunctiva: Positive for: Normal. Negative for: Injected, Icteric Mouth: Positive for: Dry (bloody) Neck: Negative for: JVD Respiratory/Chest: Positive for: Decreased Breath Sounds, Retracting, Rhonchi, Tachypneic. Negative for: Accessory Muscle Use, Wheezes Cardiovascular: Positive for: Tachycardic. Negative for: Murmurs, Rub Abdomen: Positive for: Distention, Normal Bowel Sounds. Negative for: Tenderness Upper Extremity: Positive for: Edema Lower Extremity: Positive for: Edema. Negative for: CALF TENDERNESS, NORMAL PULSES, Cyanosis Psychiatric: Positive for: Alert - Medications Active Medications: Active Medications Generic Name Dose Route Start Last Admin Trade Name Freq PRN Reason Stop Dose Admin Acetaminophen 650 mg 04/06/17 05:00 04/06/17 16:15 Tylenol 650 Mg Supp [place] 650 mg Q4 PRN Administration Temp >101 Acetaminophen 650 mg 04/07/17 04:12 04/15/17 20:27 Tylenol 650mg/20.3ml Solution Ud PO 650 mg Q4 PRN Administration Temperature Albuterol/Ipratropium 3 ml 04/04/17 19:10 04/16/17 13:09 Duoneb 3 Mg/0.5 Mg (3 Ml) Ud INH 3 ml RQ4 PRN Administration Shortness of Breath Ascorbic Acid 1,500 mg 04/13/17 10:00 04/19/17 03:54 Vitamin C 500 Mg Tab PO 1,500 mg Q6 ODETTE Administration Heparin Sodium (Porcine) 5,000 units 04/16/17 10:30 04/18/17 21:06 Heparin SC Not Given Q12 ODETTE Protocol Hydrocortisone Sodium Succinate 50 mg 04/18/17 03:00 04/19/17 02:13 Solu-Cortef IV 50 mg 0300,0900,1500,2100 ODETTE Administration Meropenem 500 mg/ Sodium 100 mls @ 100 mls/hr 04/06/17 10:45 04/18/17 20:43 Chloride IVPB 100 mls/hr Q12 ODETTE Administration Protocol Vancomycin HCl 250 mg/ Sodium 100 mls @ 100 mls/hr 04/11/17 09:45 04/18/17 11 :00 Chloride IVPB 100 mls/hr Q24H ODETTE Administration Protocol Tobramycin Sulfate 60 mg/ 101.5 mls @ 100 mls/hr 04/11/17 18:30 04/18/17 17: 31 Sodium Chloride IV 100 mls/hr Q24H ODETTE Administration Fluconazole 50 mls @ 50 mls/hr 04/16/17 09:00 04/18/17 09:52 Diflucan Iv 100 Mg/50 Ml Ns IVPB 50 mls/hr DAILY ODETTE Administration Protocol Phenylephrine HCl 10 mg/ 251 mls @ 30.12 mls/hr 04/16/17 10:30 04/18/17 01:10 Sodium Chloride IV 10 mcg/min .Q8H20M ODETTE 15.06 mls/hr Protocol Administration 20 MCG/MIN Metolazone 5 mg 04/13/17 10:45 04/18/17 09:55 Zaroxolyn PO 5 mg DAILY ODETTE Administration Metronidazole 250 mg 04/17/17 17:30 04/19/17 00:10 Flagyl PO 250 mg Q8 ODETTE Administration Protocol Pantoprazole Sodium 40 mg 04/14/17 10:30 04/18/17 09:54 Protonix Susp NG 40 mg DAILY ODETTE Administration Thiamine HCl 200 mg 04/13/17 21:00 04/18/17 20:45 Vitamin B1 Tab PO 200 mg Q12H ODETTE Administration - Patient Studies Lab Studies: Microbiology Studies 04/17/17 05:30 Blood Culture - Preliminary Blood NO GROWTH AFTER 48 HOURS 04/17/17 16:28 Blood Culture - Preliminary Blood-Thru Central Line NO GROWTH AFTER 24 HOURS 04/17/17 16:28 Blood Culture - Preliminary Blood-Venous NO GROWTH AFTER 24 HOURS Lab Studies 04/19/17 04/19/17 04/19/17 Range/Units 05:07 05:00 05:00 WBC 20.6 H (4.8-10.8) K/uL RBC 3.27 L (3.80-5.20) Mil/uL Hgb 8.8 L (12.0-16.0) g/dL Hct 28.0 L (34.0-47.0) % MCV 85.7 (81.0-99.0) fl MCH 27.0 (27.0-31.0) pg MCHC 31.5 L (33.0-37.0) g/dL RDW 17.6 H (11.5-14.5) % Plt Count 70 L (130-400) K/uL Neutrophils % (Manual) (42-75) % Band Neutrophils % (0-2) % Lymphocytes % (Manual) (20-50) % Monocytes % (Manual) (0-10) % Metamyelocytes % (0-0) % Myelocytes % (0-0) % Platelet Estimate (NORMAL) Hypochromasia (manual) Anisocytosis (manual) Tear Drop Cells Ovalocytes Schistocytes pCO2 43 (35-45) mm/Hg pO2 96 (80-100) mm/Hg HCO3 19.6 L (21-28) mmol/L ABG pH 7.27 L (7.35-7.45) ABG Total CO2 21.0 L (22-28) mmol/L ABG O2 Saturation 99.8 H (95-98) % ABG O2 Content 12.8 L (15-23) ML/dL ABG Base Excess -6.8 L (-2.0-3.0) mmol/L ABG Hemoglobin 9.3 L (11.7-17.4) g/dL ABG Carboxyhemoglobin 2.1 H (0.5-1.5) % POC ABG HHb (Measured) 0.2 (0.0-5.0) % ABG Methemoglobin 1.5 (0.0-3.0) % ABG O2 Capacity 12.8 L (16-24) mL/dL Domingo Test Yes A-a O2 Difference 135.0 mm/Hg Hgb O2 Saturation 96.3 (95.0-98.0) % Vent Mode A/c Mechanical Rate 14 FiO2 40.0 % Tidal Volume 450 PEEP 5 Sodium 149 H (132-148) mmol/l Potassium 3.4 L (3.6-5.0) MMOL/L Chloride 115 H (98-107) mmol/L Carbon Dioxide 20 L (22-30) mmol/L Anion Gap 17 (10-20) BUN 35 H (7-17) mg/dl Creatinine 1.4 H (0.7-1.2) mg/dl Est GFR ( Amer) 48 Est GFR (Non-Af Amer) 39 POC Glucose (mg/dL) (65-110) mg/dL Random Glucose 136 H (65-105) mg/dL Calcium 9.0 (8.4-10.2) mg/dL Magnesium 1.8 (1.6-2.3) MG/DL C. difficile Ag & Toxin (NEGATIVE) 04/18/17 04/18/17 04/17/17 Range/Units 11:36 04:20 18:36 WBC (4.8-10.8) K/uL RBC (3.80-5.20) Mil/uL Hgb (12.0-16.0) g/dL Hct (34.0-47.0) % MCV (81.0-99.0) fl MCH (27.0-31.0) pg MCHC (33.0-37.0) g/dL RDW (11.5-14.5) % Plt Count (130-400) K/uL Neutrophils % (Manual) 89 H (42-75) % Band Neutrophils % 3 H (0-2) % Lymphocytes % (Manual) 5 L (20-50) % Monocytes % (Manual) 1 (0-10) % Metamyelocytes % 1 H (0-0) % Myelocytes % 1 H (0-0) % Platelet Estimate Decreased L (NORMAL) Hypochromasia (manual) Moderate Anisocytosis (manual) Slight Tear Drop Cells Slight Ovalocytes Slight Schistocytes Slight pCO2 (35-45) mm/Hg pO2 (80-100) mm/Hg HCO3 (21-28) mmol/L ABG pH (7.35-7.45) ABG Total CO2 (22-28) mmol/L ABG O2 Saturation (95-98) % ABG O2 Content (15-23) ML/dL ABG Base Excess (-2.0-3.0) mmol/L ABG Hemoglobin (11.7-17.4) g/dL ABG Carboxyhemoglobin (0.5-1.5) % POC ABG HHb (Measured) (0.0-5.0) % ABG Methemoglobin (0.0-3.0) % ABG O2 Capacity (16-24) mL/dL Domingo Test A-a O2 Difference mm/Hg Hgb O2 Saturation (95.0-98.0) % Vent Mode Mechanical Rate FiO2 % Tidal Volume PEEP Sodium (132-148) mmol/l Potassium (3.6-5.0) MMOL/L Chloride (98-107) mmol/L Carbon Dioxide (22-30) mmol/L Anion Gap (10-20) BUN (7-17) mg/dl Creatinine (0.7-1.2) mg/dl Est GFR ( Amer) Est GFR (Non-Af Amer) POC Glucose (mg/dL) 193 H (65-110) mg/dL Random Glucose (65-105) mg/dL Calcium (8.4-10.2) mg/dL Magnesium (1.6-2.3) MG/DL C. difficile Ag & Toxin Negative (NEGATIVE) Laboratory Results - last 24 hr 04/17/17 04/18/17 04/18/17 18:36 04:20 11:36 WBC RBC Hgb Hct MCV MCH MCHC RDW Plt Count Neutrophils % (Manual) 89 H Band Neutrophils % 3 H Lymphocytes % (Manual) 5 L Monocytes % (Manual) 1 Metamyelocytes % 1 H Myelocytes % 1 H Platelet Estimate Decreased L Hypochromasia (manual) Moderate Anisocytosis (manual) Slight Tear Drop Cells Slight Ovalocytes Slight Schistocytes Slight pCO2 pO2 HCO3 ABG pH ABG Total CO2 ABG O2 Saturation ABG O2 Content ABG Base Excess ABG Hemoglobin ABG Carboxyhemoglobin POC ABG HHb (Measured) ABG Methemoglobin ABG O2 Capacity Domingo Test A-a O2 Difference Hgb O2 Saturation Vent Mode Mechanical Rate FiO2 Tidal Volume PEEP Sodium Potassium Chloride Carbon Dioxide Anion Gap BUN Creatinine Est GFR ( Amer) Est GFR (Non-Af Amer) POC Glucose (mg/dL) 193 H Random Glucose Calcium Magnesium C. difficile Ag & Toxin Negative 04/19/17 04/19/17 04/19/17 05:00 05:00 05:07 WBC 20.6 H RBC 3.27 L Hgb 8.8 L Hct 28.0 L MCV 85.7 MCH 27.0 MCHC 31.5 L RDW 17.6 H Plt Count 70 L Neutrophils % (Manual) Band Neutrophils % Lymphocytes % (Manual) Monocytes % (Manual) Metamyelocytes % Myelocytes % Platelet Estimate Hypochromasia (manual) Anisocytosis (manual) Tear Drop Cells Ovalocytes Schistocytes pCO2 43 pO2 96 HCO3 19.6 L ABG pH 7.27 L ABG Total CO2 21.0 L ABG O2 Saturation 99.8 H ABG O2 Content 12.8 L ABG Base Excess -6.8 L ABG Hemoglobin 9.3 L ABG Carboxyhemoglobin 2.1 H POC ABG HHb (Measured) 0.2 ABG Methemoglobin 1.5 ABG O2 Capacity 12.8 L Domingo Test Yes A-a O2 Difference 135.0 Hgb O2 Saturation 96.3 Vent Mode A/c Mechanical Rate 14 FiO2 40.0 Tidal Volume 450 PEEP 5 Sodium 149 H Potassium 3.4 L Chloride 115 H Carbon Dioxide 20 L Anion Gap 17 BUN 35 H Creatinine 1.4 H Est GFR ( Amer) 48 Est GFR (Non-Af Amer) 39 POC Glucose (mg/dL) Random Glucose 136 H Calcium 9.0 Magnesium 1.8 C. difficile Ag & Toxin Fingerstick Blood Sugar Results: 221 Review of Systems - Review of Systems Systems not reviewed;Unavailable: Intubated Critical Care Progress Note - Ventilator Checklist Head of Bed 30 Degrees: Yes Daily Sedation Vacation: Yes Daily Assessment of Readiness to Wean: Yes Daily Spontaneous Breathing Trial: Yes PUD Prophalyxis: Yes DVT Prophylaxis: Yes Oral Care with Chlorhexidine Gluconate {CHG}: Yes - Extremities/Vascular Does the Patient have a Central Venous Catheter?: Yes Does the Patient need a Central Venous Catheter?: Yes Does the Patient have a Overton Catheter?: Yes Does the Patient need a Over[place] Catheter?: Yes - Nutrition Nutrition: Nutrition Category Date Time Status NPO Diet [DIET] Diets 04/19/17 Breakfast Active Assessment/Plan (1) Acute respiratory failure with hypoxia Current Visit: Yes Status: Acute Comment: 51 Years old female with Acute Hypoxemic Respiratory Failure Continue Antibiotics WITH Vaco, Tobramycin Sulfate and Meropenem 500 mg IVPB Q12 Continue current ICU mangements Strict I&Os (2) Septic shock Current Visit: Yes Status: Acute Comment: UA and Campos Cultures Re-sent, Blood/Urine/tracheal aspirate IV Vanco, Tobramycin and Meropenem CT scan Abdomine revealed Campos colitis Optimize blood pressure, hemodynamic monitoring and maintain end-organ perfusion Continue levophed/Vaso for BP support, wean as tolerated Continue Dobutamine, follow up sVo2 (3) Acute renal injury due to circulatory failure Current Visit: Yes Status: Acute Comment: Acute kidney injury likely multifactorial due to circulatory failure and septic shock Optimize blood pressure, hemodynamic monitoring and maintain end-organ perfusion Maintian MAP 65-75 (4) Altered mental status Current Visit: Yes Status: Acute Priority: High (5) Anemia Current Visit: Yes Status: Acute Priority: High (6) Metabolic acidosis Current Visit: Yes Status: Acute Comment: Toxic/metabolic acidosis (7) Pneumonia Current Visit: Yes Status: Acute (8) Thrombocytopenia Current Visit: Yes Status: Acute Priority: High Comment: No evidance of active bleeding
[2017-04-19] MEDS: Fluconazole IV 100mg/50 ml NS 50 ML IVPB SCH (08:34)
[2017-04-19] MEDS: Pantoprazole 40 mg Susp UD NG SCH (08:35)
[2017-04-19] MEDS: Meropenem 500 MG in Sodium Chloride 0.9% 100 ML IVPB SCH (08:35)
[2017-04-19] MEDS: metOLazone 5 MG TAB PO SCH (08:36)
--- NOTE | 2017-04-19 10:39 | CP.PCM.PN ---
Subjective - Date & Time of Evaluation Date of Evaluation: 04/19/17 Time of Evaluation: 10:34 - Subjective Subjective: Follow up Nephrology Consultation Note Assessment: critical Non-oliguric Acute Kidney Injury (N17.9) likely due to acute tubular necrosis due to septic shock, required renal replacement therapy Acute respi failure Hypomagnesemia, Hypokalemia, Hypernatremia Sepsis with shock Obesity hx of ovarian CA s/p RODRIGO/BSO, DVT s/p IVC filter Anemia Plan No acute need for renal replacement therapy today. fluid status improved, making more urine. creatinine stable at 1.4 will challenge her with IV lasix 80 mg bid. pt also on metolazone supplement electrolytes as oral KDUR 40 meq q 6 hr x 3 doses today. add free water 250 mL q6 hr Monitor Input/Output, daily weights and renal function with basic metabolic panel Dose meds/antibiotics for improved GFR. Avoid fleets enema/magnesium based laxatives. Avoid nephrotoxins/NSAIDs/ iodinated contrast (unless needed emergently) Glycemic control Further work up for as per primary team Thanks for allowing me to participate in care of your patient. Will follow patient with you. Please call if any Qs. d/w ICU team Dr Reji Nunez Office: [phone] Subjective: Noted events overnight. Patients intubated, planned for trach today. unable to obtain hx from patient. off phenylephrine drip had isolated UF on weekend. making more urine ~ 1L. Physical Examination: General Appearance: Comfortable, in no acute respiratory distress, ill appearing , mechanically ventilated Vitals reviewed and noted as below Lungs: Normal respiratory rate/effort. Breath sounds bilateral equal and has rales+ Heart: Normal rate. s1s2 normal. No rub or gallop. Extremities: no edema. Neurological: Patient is sleepy, not communicative at present Skin: Warm and dry. Normal turgor. No rash. Palpitation: Normal elasticity for age Abdomen: Abdomen is soft. Bowel sounds +. There is no abdominal tenderness, no guarding/rigidity or organomegaly : kidney or bladder not palpable Access: shiley Head; Atraumatic, normocephalic ENT: no thrush. she is orally intubated EYES: Pupils are equal, round and reactive to light accommodation. Eye muscles and extraocular movement intact. Sclera is anicteric. Neck; supple no lymphadenopathy, no thyromegaly or bruit Psych: Unable MSK: no joint tenderness or swelling. Digits and nails normal, no deformity Labs/imaging reviewed. Past medical history, past surgical history, family history, social history, allergy reviewed family hx No hx of CKD Objective - Vital Signs/Intake and Output Vital Signs (last 24 hours): Temp Pulse Resp BP Pulse Ox 98.7 F 115 H 18 129/65 98 04/19/17 08:00 04/19/17 08:00 04/19/17 08:00 04/19/17 08:00 04/19/17 08:00 Intake and Output: 04/19/17 04/19/17 06:59 18:59 Intake Total 626 Output Total 1100 Balance -474 - Medications Medications: Current Medications Acetaminophen (Tylenol 650 Mg Supp) 650 mg AL Q4 PRN PRN Reason: Temp >101 Last Admin: 04/06/17 16:15 Dose: 650 mg Acetaminophen (Tylenol 650mg/20.3ml Solution Ud) 650 mg PO Q4 PRN PRN Reason: Temperature Last Admin: 04/15/17 20:27 Dose: 650 mg Albuterol/Ipratropium (Duoneb 3 Mg/0.5 Mg (3 Ml) Ud) 3 ml INH RQ4 PRN PRN Reason: Shortness of Breath Last Admin: 04/16/17 13:09 Dose: 3 ml Ascorbic Acid (Vitamin C 500 Mg Tab) 1,500 mg PO Q6 ODETTE Last Admin: 04/19/17 03:54 Dose: 1,500 mg Furosemide (Lasix) 80 mg IVP BID ODETTE Stop: 04/20/17 09:01 Heparin Sodium (Porcine) (Heparin) 5,000 units SC Q12 ODETTE PRN Reason: Protocol Last Admin: 04/18/17 21:06 Dose: Not Given Hydrocortisone Sodium Succinate (Solu-Cortef) 50 mg IV 0300,0900,1500,2100 ODETTE Last Admin: 04/19/17 08:36 Dose: 50 mg Vancomycin HCl 250 mg/ Sodium (Chloride) 100 mls @ 100 mls/hr IVPB Q24H ODETTE PRN Reason: Protocol Last Admin: 04/18/17 11:00 Dose: 100 mls/hr Tobramycin Sulfate 60 mg/ (Sodium Chloride) 101.5 mls @ 100 mls/hr IV Q24H ODETTE Last Admin: 04/18/17 17:31 Dose: 100 mls/hr Fluconazole (Diflucan Iv 100 Mg/50 Ml Ns) 50 mls @ 50 mls/hr IVPB DAILY ODETTE PRN Reason: Protocol Last Admin: 04/19/17 08:34 Dose: 50 mls/hr Phenylephrine HCl 10 mg/ (Sodium Chloride) 251 mls @ 30.12 mls/hr IV .Q8H20M ODETTE; 20 MCG/MIN PRN Reason: Protocol Last Admin: 04/18/17 01:10 Dose: 10 mcg/min, 15.06 mls/hr Metolazone (Zaroxolyn) 5 mg PO DAILY ODETTE Last Admin: 04/19/17 08:36 Dose: Not Given Metronidazole (Flagyl) 250 mg PO Q8 ODETTE PRN Reason: Protocol Last Admin: 04/19/17 00:10 Dose: 250 mg Pantoprazole Sodium (Protonix Susp) 40 mg NG DAILY ODETTE Last Admin: 04/19/17 08:35 Dose: Not Given Potassium Chloride (Potassium Chloride Oral Soln) 40 meq NG Q6 ODETTE Stop: 04/19/17 22:01 Thiamine HCl (Vitamin B1 Tab) 200 mg PO Q12H ODETTE Last Admin: 04/19/17 08:36 Dose: Not Given - Labs Labs: 04/19/17 05:00 04/19/17 05:00 PT 15.8 Seconds (9.8-13.1) H 04/14/17 04:20 INR 1.4 (0.9-1.2) H 04/14/17 04:20 APTT 33.0 Seconds (25.6-37.1) 04/14/17 04:20
[2017-04-19] MEDS: Potassium Chloride 20 mEq/15 ml LIQ UD NG SCH ×3 (11:00→21:37)
--- NOTE | 2017-04-19 11:27 | RAD ---
HISTORY: vented COMPARISON: 04/18/2017 FINDINGS: LUNGS: No definite infiltrate. PLEURA: Markedly elevated right hemidiaphragm as on prior examination. No definite pleural effusion. Cannot rule out subpulmonic right pleural effusion. CARDIOVASCULAR: Normal heart size. Endotracheal tube, nasogastric tube and right tunneled central venous dialysis catheter are all grossly unchanged. OSSEOUS STRUCTURES: No significant abnormalities. VISUALIZED UPPER ABDOMEN: Normal. OTHER FINDINGS: None. IMPRESSION: Markedly elevated right hemidiaphragm. Cannot rule out subpulmonic right pleural effusion. Lines and tubes unchanged.
[2017-04-19] MEDS ORDERED: Bupivacaine 0.5% Inj(30mL) ONE (12:21)
[2017-04-19] MEDS ORDERED: ceFAZolin IV 1 gm in Dextrose 0 GM/0 ML BAG IVPB ONE (12:21)
[2017-04-19] MEDS ORDERED: Lidocaine 1% Inj (20ml) ONE (12:21)
[2017-04-19] MEDS ORDERED: Vancomycin 1 g Inj ONE (12:31)
[2017-04-19] MEDS ORDERED: Lidocaine 2% Jelly (5 ml) TOP ONE (12:48)
[2017-04-19] MEDS: Vancomycin 250 MG in Sodium Chloride 0.9% 100 ML IVPB SCH (13:00)
[2017-04-19] MEDS ORDERED: Etomidate 20 mg/10ml Inj IV ONE (13:19)
[2017-04-19] MEDS ORDERED: Sodium Chloride 0.9% 500 ML IV ONE (13:50)
[2017-04-19] MEDS ORDERED: Lidocaine 2% w Epi 1:100,000 Inj IJ ONE ×2 (14:10→14:12)
[2017-04-19] MEDS ORDERED: EPINEPHrine 1 mg/ml (1:1000) Inj ONE (14:10)
--- NOTE | 2017-04-19 15:05 | PCM.SURG1 ---
Surgeon's Initial Post Op Note - Surgeon's Notes Surgeon: Dr. Caldera Thread Roller: Dr. Nolan PGY3, PGY1 Pre-Operative Diagnosis: Respiratory Failure Operative Findings: see op note Post-Operative Diagnosis: as above Operation Performed: percutaneous tracheostomy w/ flexible bronchoscopy Specimen/Specimens Removed: none Estimated Blood Loss: EBL {In ML}: 5 Drains Used: No Drains Date of Surgery/Procedure: 04/19/17 Time of Surgery/Procedure: 14:30
--- NOTE | 2017-04-19 15:15 | CP.PCM.PN ---
Subjective - Date & Time of Evaluation Date of Evaluation: 04/19/17 Time of Evaluation: 11:00 - Subjective Subjective: F/U Respiratory Failure. Pt aware of verbal stimuli. Objective - Vital Signs/Intake and Output Vital Signs (last 24 hours): Temp Pulse Resp BP Pulse Ox 98.0 F 112 H 14 107/60 97 04/19/17 12:00 04/19/17 12:00 04/19/17 12:00 04/19/17 12:00 04/19/17 12:00 Intake and Output: 04/19/17 04/19/17 06:59 18:59 Intake Total 626 350 Output Total 1100 Balance -474 350 - Medications Medications: Current Medications Acetaminophen (Tylenol 650 Mg Supp) 650 mg IN Q4 PRN PRN Reason: Temp >101 Last Admin: 04/06/17 16:15 Dose: 650 mg Acetaminophen (Tylenol 650mg/20.3ml Solution Ud) 650 mg PO Q4 PRN PRN Reason: Temperature Last Admin: 04/15/17 20:27 Dose: 650 mg Albuterol/Ipratropium (Duoneb 3 Mg/0.5 Mg (3 Ml) Ud) 3 ml INH RQ4 PRN PRN Reason: Shortness of Breath Last Admin: 04/16/17 13:09 Dose: 3 ml Ascorbic Acid (Vitamin C 500 Mg Tab) 1,500 mg PO Q6 ODETTE Last Admin: 04/19/17 03:54 Dose: 1,500 mg Furosemide (Lasix) 80 mg IVP BID [facility] Stop: 04/20/17 09:01 Heparin Sodium (Porcine) (Heparin) 5,000 units SC Q12 [facility] PRN Reason: Protocol Last Admin: 04/18/17 21:06 Dose: Not Given Hydrocortisone Sodium Succinate (Solu-Cortef) 50 mg IV 0300,0900,1500,2100 [facility] Last Admin: 04/19/17 08:36 Dose: 50 mg Vancomycin HCl 250 mg/ Sodium (Chloride) 100 mls @ 100 mls/hr IVPB Q24H [facility] PRN Reason: Protocol Last Admin: 04/18/17 11:00 Dose: 100 mls/hr Tobramycin Sulfate 60 mg/ (Sodium Chloride) 101.5 mls @ 100 mls/hr IV Q24H [facility] Last Admin: 04/18/17 17:31 Dose: 100 mls/hr Fluconazole (Diflucan Iv 100 Mg/50 Ml Ns) 50 mls @ 50 mls/hr IVPB DAILY [facility] PRN Reason: Protocol Last Admin: 04/19/17 08:34 Dose: 50 mls/hr Phenylephrine HCl 10 mg/ (Sodium Chloride) 251 mls @ 30.12 mls/hr IV .Q8H20M [facility]ETTE; 20 MCG/MIN PRN Reason: Protocol Last Admin: 04/18/17 01:10 Dose: 10 mcg/min, 15.06 mls/hr Metolazone (Zaroxolyn) 5 mg PO DAILY [facility] Last Admin: 04/19/17 08:36 Dose: Not Given Metronidazole (Flagyl) 250 mg PO Q8 [facility]ETTE PRN Reason: Protocol Last Admin: 04/19/17 00:10 Dose: 250 mg Pantoprazole Sodium (Protonix Susp) 40 mg NG DAILY [facility] Last Admin: 04/19/17 08:35 Dose: Not Given Potassium Chloride (Potassium Chloride Oral Soln) 40 meq NG Q6 [facility] Stop: 04/19/17 22:01 Thiamine HCl (Vitamin B1 Tab) 200 mg PO Q12H [facility] Last Admin: 04/19/17 08:36 Dose: Not Given - Labs Labs: 04/19/17 05:00 04/19/17 05:00 PT 15.8 Seconds (9.8-13.1) H 04/14/17 04:20 INR 1.4 (0.9-1.2) H 04/14/17 04:20 APTT 33.0 Seconds (25.6-37.1) 04/14/17 04:20 - Constitutional Appears: No Acute Distress, Chronically Ill - Head Exam Head Exam: NORMAL INSPECTION - Eye Exam Eye Exam: PERRL - ENT Exam Additional comments: Intubated - Neck Exam Neck Exam: Normal Inspection - Respiratory Exam Respiratory Exam: Rhonchi (scattered) - Cardiovascular Exam Cardiovascular Exam: REGULAR RHYTHM - GI/Abdominal Exam GI & Abdominal Exam: Soft, Normal Bowel Sounds - Extremities Exam Extremities Exam: Pedal Edema Additional comments: L heel DTI, R lateral ankle DTI, MSAD posterior thigh. - Back Exam Additional comments: MSAD buttock, sacrum, R flank. - Neurological Exam Additional comments: Intubated, no following commands. - Skin Skin Exam: Warm Assessment and Plan (1) Acute respiratory failure Status: Acute (2) Shock Status: Deleted (3) Pneumonia Status: Acute (4) Acute renal failure (ARF) Status: Acute (5) Anemia Status: Acute (6) Hematuria, gross Status: Deleted (7) Thrombocytopenia Status: Resolved (8) History of pulmonary embolus (PE) Status: Acute (9) Pancolitis Status: Deleted - Assessment and Plan (Free Text) Plan: Continue Laurao, Clinda, Duoneb, rest of Tx, to have Tracheotomy today.
--- NOTE | 2017-04-19 15:21 | RAD ---
PROCEDURE: CHEST RADIOGRAPH, 1 VIEW HISTORY: r/o pneumothorax NGT placement COMPARISON: Chest radiograph performed approximately 10 hours prior FINDINGS: LUNGS: Worsening of pulmonary vascular congestion. Bibasilar atelectasis. PLEURA: Stable elevation of the right hemidiaphragm. Equivocal right pleural effusion. CARDIOVASCULAR: Unremarkable cardiomediastinal silhouette. OSSEOUS STRUCTURES: No significant abnormalities. VISUALIZED UPPER ABDOMEN: Right upper quadrant surgical clips redemonstrated. OTHER FINDINGS: Interval tracheostomy with removal of endotracheal tube. Enteric tube, unchanged. Right internal jugular access non tunneled hemodialysis catheter, unchanged. IMPRESSION: Interval tracheostomy. Worsening of pulmonary vascular congestion. No other significant interval changes.
--- NOTE | 2017-04-19 17:56 | CP.PCM.PN ---
Subjective - Date & Time of Evaluation Date of Evaluation: 04/19/17 Time of Evaluation: 17:57 - Subjective Subjective: I D NOTE WBC IS UP TO 20 POSSIBLY STEROID EFFECT? HAVE GIVEN CLINDAMYCIN CONSIDERING POSSIBILITY OF ASPIRATION PNEUMONA TRACHEOSTOMY DONE Objective - Vital Signs/Intake and Output Vital Signs (last 24 hours): Temp Pulse Resp BP Pulse Ox 97.7 F 107 H 16 121/60 98 04/19/17 16:00 04/19/17 16:00 04/19/17 16:00 04/19/17 16:16 04/19/17 16:00 Intake and Output: 04/19/17 04/19/17 06:59 18:59 Intake Total 626 350 Output Total 1100 Balance -474 350 - Medications Medications: Current Medications Acetaminophen (Tylenol 650 Mg Supp) 650 mg MI Q4 PRN PRN Reason: Temp >101 Last Admin: 04/06/17 16:15 Dose: 650 mg Acetaminophen (Tylenol 650mg/20.3ml Solution Ud) 650 mg PO Q4 PRN PRN Reason: Temperature Last Admin: 04/15/17 20:27 Dose: 650 mg Albuterol/Ipratropium (Duoneb 3 Mg/0.5 Mg (3 Ml) Ud) 3 ml INH RQ4 PRN PRN Reason: Shortness of Breath Last Admin: 04/16/17 13:09 Dose: 3 ml Ascorbic Acid (Vitamin C 500 Mg Tab) 1,500 mg PO Q6 [facility] Last Admin: 04/19/17 16:15 Dose: 1,500 mg Furosemide (Lasix) 80 mg IVP BID [facility] Stop: 04/20/17 09:01 Last Admin: 04/19/17 16:16 Dose: 80 mg Heparin Sodium (Porcine) (Heparin) 5,000 units SC Q12 [facility] PRN Reason: Protocol Last Admin: 04/18/17 21:06 Dose: Not Given Hydrocortisone Sodium Succinate (Solu-Cortef) 50 mg IV 0300,0900,1500,2100 [facility] Vancomycin HCl 250 mg/ Sodium (Chloride) 100 mls @ 100 mls/hr IVPB Q24H [facility] PRN Reason: Protocol Last Admin: 04/19/17 13:00 Dose: 100 mls/hr Tobramycin Sulfate 60 mg/ (Sodium Chloride) 101.5 mls @ 100 mls/hr IV Q24H [facility] Last Admin: 04/18/17 17:31 Dose: 100 mls/hr Fluconazole (Diflucan Iv 100 Mg/50 Ml Ns) 50 mls @ 50 mls/hr IVPB DAILY [facility] PRN Reason: Protocol Last Admin: 04/19/17 08:34 Dose: 50 mls/hr Phenylephrine HCl 10 mg/ (Sodium Chloride) 251 mls @ 30.12 mls/hr IV .Q8H20M [facility]; 20 MCG/MIN PRN Reason: Protocol Last Admin: 04/18/17 01:10 Dose: 10 mcg/min, 15.06 mls/hr Clindamycin in NS (Clindamycin 300 Mg/50 Ml-Ns) 300 mg in 50 mls @ 50 mls/hr IVPB Q12 [facility] PRN Reason: Protocol Metolazone (Zaroxolyn) 5 mg PO DAILY [facility] Last Admin: 04/19/17 08:36 Dose: Not Given Pantoprazole Sodium (Protonix Susp) 40 mg NG DAILY [facility] Last Admin: 04/19/17 08:35 Dose: Not Given Potassium Chloride (Potassium Chloride Oral Soln) 40 meq NG Q6 [facility] Stop: 04/19/17 22:01 Last Admin: 04/19/17 16:14 Dose: 40 meq Thiamine HCl (Vitamin B1 Tab) 200 mg PO Q12H [facility] Last Admin: 04/19/17 08:36 Dose: Not Given - Labs Labs: 04/19/17 05:00 04/19/17 05:00 PT 15.8 Seconds (9.8-13.1) H 04/14/17 04:20 INR 1.4 (0.9-1.2) H 04/14/17 04:20 APTT 33.0 Seconds (25.6-37.1) 04/14/17 04:20
[2017-04-19] MEDS: Tobramycin inj 60 MG in Sodium Chloride 0.9% 100 ML IV SCH (18:10)
[2017-04-19] MEDS: Clindamycin in NS 300 MG/50 ML BAG IVPB SCH (21:18)
[2017-04-19] MEDS: Acetaminophen 650mg/20.3ml solution UD PO PRN (22:47)
[2017-04-20] MEDS: Acetaminophen 650mg/20.3ml solution UD PO PRN ×2 (04:02→15:30)
[2017-04-20 04:39] LABS: ABG ALLEN TEST YES; ABG MECHANICAL RATE 14; ARTERIAL BLOOD GAS HCO3 21.9 mmol/L (21-28); ARTERIAL BLOOD GAS MODE A/C; ARTERIAL BLOOD GAS O2 CAPACITY 12.4 mL/dL (16-24); ARTERIAL BLOOD GAS O2 CONTENT 12.4 ML/dL (15-23); ARTERIAL BLOOD GAS PH 7.31 (7.35-7.45); ARTERIAL BLOOD GAS PO2 94 mm/Hg (80-100); ARTERIAL BLOOD HGB O2 SAT 96.8 % (95.0-98.0); ATERIAL BLOOD GAS PEEP 5; CARBOXYHEMOGLOBIN 2.2 % (0.5-1.5)
[2017-04-20 06:04] LABS: BASO % 0.1 % (0.0-2.0); CALCIUM 9.2 mg/dL (8.4-10.2); EOS % 0.1 % (0.0-4.0); HEMATOCRIT 27.1 % (34.0-47.0); LYMPH # 0.5 K/uL (1.0-4.3); LYMPH % 2.5 % (20.0-40.0); MEAN CELL VOLUME 86.3 fl (81.0-99.0); MEAN CORPUSCULAR HEMOGLOBIN 27.2 pg (27.0-31.0); MEAN CORPUSCULAR HGB CONC 31.6 g/dL (33.0-37.0); MEAN PLATELET VOLUME 9.8 fl (7.2-11.7); MONO # 0.1 K/uL (0.0-0.8); MONO % 0.7 % (0.0-10.0); NEUT # 18.9 K/uL (1.8-7.0); NEUT % 96.6 % (50.0-75.0); NRBC % 1.6 % (0.0-0.0); POTASSIUM 3.6 MMOL/L (3.6-5.0); RED CELL DISTRIBUTION WIDTH 17.8 % (11.5-14.5); WHITE BLOOD COUNT 19.5 K/uL (4.8-10.8)
[2017-04-20 07:06] LABS: METAMYELOCYTE 2 % (0-0); NEUTROPHIL 92 % (42-75); TOTAL CELLS COUNTED 100
[2017-04-20 07:11] LABS: PLATELET COUNT 75 K/uL (130-400)
[2017-04-20] MEDS: Pantoprazole 40 mg Susp UD NG SCH (08:41)
[2017-04-20] MEDS: metOLazone 5 MG TAB PO SCH (08:44)
[2017-04-20] MEDS: Clindamycin in NS 300 MG/50 ML BAG IVPB SCH ×2 (08:46→22:27)
[2017-04-20] MEDS: Fluconazole IV 100mg/50 ml NS 50 ML IVPB SCH (10:16)
--- NOTE | 2017-04-20 10:48 | CP.PCM.PN ---
Subjective - Date & Time of Evaluation Date of Evaluation: 04/20/17 Time of Evaluation: 10:46 - Subjective Subjective: IMP: Non-oliguric Acute Kidney Injury (N17.9) likely due to acute tubular necrosis due to septic shock, required renal replacement therapy Acute respiratory failure Hypomagnesemia, Hypokalemia, Hypernatremia Sepsis with shock Obesity hx of ovarian CA s/p RODRIGO/BSO, DVT s/p IVC filter Anemia Plan Continue to hold HD s/p trach renal function remains stable if remains stable can d/c permacath or if there are concerns about infection from line can be discontinued as well. receiving lasix 80 and metolazone today. free water flushes started Subjective: low grade fevers overnight Physical Examination: General Appearance: Comfortable, in no acute respiratory distress, ill appearing , mechanically ventilated Vitals reviewed and noted as below Lungs: Normal respiratory rate/effort. Breath sounds bilateral equal and has rales+ Heart: Normal rate. s1s2 normal. No rub or gallop. Extremities: trace edema. Neurological: Patient is sleepy, not communicative at present Skin: Warm and dry. Normal turgor. No rash. Palpitation: Normal elasticity for age Abdomen: Abdomen is soft. Bowel sounds +. There is no abdominal tenderness, no guarding/rigidity or organomegaly : kidney or bladder not palpable Access: tunneled cathether Head; Atraumatic, normocephalic ENT: no thrush. she is orally intubated EYES: Pupils are equal, round and reactive to light accommodation. Eye muscles and extraocular movement intact. Sclera is anicteric. Neck; supple, + trach psych: flat MSK: no joint tenderness or swelling Objective - Vital Signs/Intake and Output Vital Signs (last 24 hours): Temp Pulse Resp BP Pulse Ox 99.8 F H 119 H 13 113/63 100 04/20/17 08:00 04/20/17 08:00 04/20/17 08:00 04/20/17 08:41 04/20/17 08:00 Intake and Output: 04/20/17 04/20/17 06:59 18:59 Intake Total 885 Output Total 1625 Balance -740 - Medications Medications: Current Medications Acetaminophen (Tylenol 650 Mg Supp) 650 mg VT Q4 PRN PRN Reason: Temp >101 Last Admin: 04/06/17 16:15 Dose: 650 mg Acetaminophen (Tylenol 650mg/20.3ml Solution Ud) 650 mg PO Q4 PRN PRN Reason: Temperature Last Admin: 04/20/17 04:02 Dose: 650 mg Albuterol/Ipratropium (Duoneb 3 Mg/0.5 Mg (3 Ml) Ud) 3 ml INH RQ4 PRN PRN Reason: Shortness of Breath Last Admin: 04/16/17 13:09 Dose: 3 ml Ascorbic Acid (Vitamin C 500 Mg Tab) 1,500 mg PO Q6 [facility] Last Admin: 04/20/17 04:01 Dose: 1,500 mg Heparin Sodium (Porcine) (Heparin) 5,000 units SC Q12 [facility] PRN Reason: Protocol Last Admin: 04/18/17 21:06 Dose: Not Given Hydrocortisone Sodium Succinate (Solu-Cortef) 50 mg IV 0300,0900,1500,2100 [facility] Last Admin: 04/20/17 08:42 Dose: 50 mg Vancomycin HCl 250 mg/ Sodium (Chloride) 100 mls @ 100 mls/hr IVPB Q24H [facility] PRN Reason: Protocol Last Admin: 04/19/17 13:00 Dose: 100 mls/hr Tobramycin Sulfate 60 mg/ (Sodium Chloride) 101.5 mls @ 100 mls/hr IV Q24H [facility] Last Admin: 04/19/17 18:10 Dose: 100 mls/hr Fluconazole (Diflucan Iv 100 Mg/50 Ml Ns) 50 mls @ 50 mls/hr IVPB DAILY [facility] PRN Reason: Protocol Last Admin: 04/19/17 08:34 Dose: 50 mls/hr Phenylephrine HCl 10 mg/ (Sodium Chloride) 251 mls @ 30.12 mls/hr IV .Q8H20M [facility]; 20 MCG/MIN PRN Reason: Protocol Last Admin: 04/18/17 01:10 Dose: 10 mcg/min, 15.06 mls/hr Clindamycin in NS (Clindamycin 300 Mg/50 Ml-Ns) 300 mg in 50 mls @ 50 mls/hr IVPB Q12 [facility] PRN Reason: Protocol Last Admin: 04/20/17 08:46 Dose: 50 mls/hr Metolazone (Zaroxolyn) 5 mg PO DAILY [facility] Last Admin: 04/20/17 08:44 Dose: 5 mg Pantoprazole Sodium (Protonix Susp) 40 mg NG DAILY [facility] Last Admin: 04/20/17 08:41 Dose: 40 mg Thiamine HCl (Vitamin B1 Tab) 200 mg PO Q12H [facility] Last Admin: 04/20/17 08:44 Dose: 200 mg - Labs Labs: 04/20/17 05:30 04/20/17 05:30 PT 15.8 Seconds (9.8-13.1) H 04/14/17 04:20 INR 1.4 (0.9-1.2) H 04/14/17 04:20 APTT 33.0 Seconds (25.6-37.1) 04/14/17 04:20
--- NOTE | 2017-04-20 11:22 | RAD ---
HISTORY: trach COMPARISON: No prior. FINDINGS: LUNGS: On intrinsic pulmonary venous congestion is suspect. Lung volumes are lower limits of normal on the left side. The right hemidiaphragm is asymmetrically elevated as before. At discoid atelectatic changes at both lung bases. PLEURA: A posterior rib right pleural effusion is possible. ; elevated right hemidiaphragm impedes optimal evaluation here. No pneumothorax apparent. CARDIOVASCULAR: Heart size within normal limits OSSEOUS STRUCTURES: No significant abnormalities. VISUALIZED UPPER ABDOMEN: Normal. OTHER FINDINGS: The right central dialysis catheter tip is at the cavoatrial junction as before. Endotracheal tube tip approximately 3 cm from the sloane. NG tube tip coiling in stomach -inferior tip beyond the inferior edge of this image. There is extrinsic apparent tubing projecting of the left hemithorax uncoiling over the right thoraco abdominal region. Post cholecystectomy clips in place. -IVC filter in place. IMPRESSION: Compared the prior study no significant interval change in the appearance of the lungs is perceived. -apart from probable decreased or right pleural fluid
[2017-04-20] MEDS: Vancomycin 250 MG in Sodium Chloride 0.9% 100 ML IVPB SCH (13:00)
--- NOTE | 2017-04-20 13:11 | CP.CCUPN ---
CCU Subjective - Physician Review Subjective (Free Text): Opens eyes to name calling, weak movement of extremities, otherwise spontaneously awake. No overall distress, POD #1 Trach, breathing 17 on AC 14, 450ml TV, 40%, 5 PEEP with SPO2 100%. Other vitals and I/O's reviewed. T max 100.5F, no fever spikes since the . Now responsive to aggressive diuresis with over 1000ml urine each shift. ROS: Unobtainable from intubated Patient. No other pertinent negs or positives on 10+ system review. PMSFH: All Nursing and physician documentation reviewed to date; no new pertinent info noted relevant to current medical problems. CXR: essentially unchanged: ETT position OK above sloane, RLL infiltrate vs R effusion and elevated R hemidiaphragm persists. ( my interp). MAJOR PROBLEMS: 1. +Kleb pneumoniae (ESBL) and E. faecalis Bacteremia 2. Septic Shock 2 #1 3. Acute Renal Failure / ATN 4. Acute Resp Failure, 2 pneumonia 5. Thrombocytopenia / Coagulopathy PLAN: 1. Low dose Phenylephrine, Lactic acid levels improved. 2. Will continue steroids with Thiamine and Vit C. Repeat Procalcitonin level decreasing. Abx coverage changed to Clindamycin / Diflucan / Tobra/ Vanco. Consider changing Overton, otherwise unable to discontinue Overton due to severe dependent skin area breakdown. 3. No MV weans today, awaiting trach stability over the next 24-48hours. 4. Consider changing invasive lines. 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 Will discuss with Nephro regarding this possibility or need. 5. Lasix / Zaroxlyn as tolerated. 6. GI tract tolerating full goal rate Vital feeds. 7. Clinitron bed ordered as well as Wound Consult with Dr. Dillon for severe DTIs and skin breakdown. CCU Objective - Vital Signs / Intake & Output Vital Signs (Last 4 hours): Vital Signs Temp Pulse Resp BP Pulse Ox 04/20/17 12:00 99.1 F 122 H 17 114/69 100 04/20/17 11:00 109 H 15 116/73 100 04/20/17 10:00 121 H 15 118/77 99 Intake and Output (Last 8hrs): Intake & Output 04/19/17 04/20/17 04/20/17 22:59 06:59 14:59 Intake Total 365 520 480 Output Total 525 1100 Balance -160 -580 480 Intake: IV 25 Intake, Piggyback 50 100 Oral 150 100 Tube Feeding 140 420 280 Free Water Flush 100 Output: Urine 525 1100 Urethral (Overton) 525 1100 Stool 0 Other: # Bowel Movements 1 - Physical Exam Head: Positive for: Atraumatic, Normocephalic. Negative for: Tenderness, Contusion Pupils: Positive for: PERRL. Negative for: Sluggish, Non-Reactive Extroacular Muscles: Positive for: EOMI. Negative for: Gaze Palsy Conjunctiva: Positive for: Normal. Negative for: Injected, Icteric Mouth: Positive for: Dry (bloody) Neck: Negative for: JVD Respiratory/Chest: Positive for: Decreased Breath Sounds, Retracting, Rhonchi, Tachypneic. Negative for: Accessory Muscle Use, Wheezes Cardiovascular: Positive for: Tachycardic. Negative for: Murmurs, Rub Abdomen: Positive for: Distention, Normal Bowel Sounds. Negative for: Tenderness Upper Extremity: Positive for: Edema Lower Extremity: Positive for: Edema. Negative for: CALF TENDERNESS, NORMAL PULSES, Cyanosis Psychiatric: Positive for: Alert - Medications Active Medications: Active Medications Generic Name Dose Route Start Last Admin Trade Name Freq PRN Reason Stop Dose Admin Acetaminophen 650 mg 04/06/17 05:00 04/06/17 16:15 Tylenol 650 Mg Supp PA 650 mg Q4 PRN Administration Temp >101 Acetaminophen 650 mg 04/07/17 04:12 04/20/17 04:02 Tylenol 650mg/20.3ml Solution Ud PO 650 mg Q4 PRN Administration Temperature Albuterol/Ipratropium 3 ml 04/04/17 19:10 04/16/17 13:09 Duoneb 3 Mg/0.5 Mg (3 Ml) Ud INH 3 ml RQ4 PRN Administration Shortness of Breath Ascorbic Acid 1,500 mg 04/13/17 10:00 04/20/17 10:16 Vitamin C 500 Mg Tab PO 1,500 mg Q6 [facility] Administration Heparin Sodium (Porcine) 5,000 units 04/16/17 10:30 04/18/17 21:06 Heparin SC Not Given Q12 [facility] Protocol Hydrocortisone Sodium Succinate 50 mg 04/19/17 21:00 04/20/17 08:42 Solu-Cortef IV 50 mg 0300,0900,1500,2100 [facility] Administration Vancomycin HCl 250 mg/ Sodium 100 mls @ 100 mls/hr 04/11/17 09:45 04/19/17 13 :00 Chloride IVPB 100 mls/hr Q24H [facility] Administration Protocol Tobramycin Sulfate 60 mg/ 101.5 mls @ 100 mls/hr 04/11/17 18:30 04/19/17 18: 10 Sodium Chloride IV 100 mls/hr Q24H [facility] Administration Fluconazole 50 mls @ 50 mls/hr 04/16/17 09:00 04/20/17 10:16 Diflucan Iv 100 Mg/50 Ml Ns IVPB 50 mls/hr DAILY [facility] Administration Protocol Phenylephrine HCl 10 mg/ 251 mls @ 30.12 mls/hr 04/16/17 10:30 04/18/17 01:10 Sodium Chloride IV 10 mcg/min .Q8H20M [facility] 15.06 mls/hr Protocol Administration 20 MCG/MIN Clindamycin in NS 300 mg in 50 mls @ 50 mls/hr 04/19/17 21:00 04/20/17 08:46 Clindamycin 300 Mg/50 Ml-Ns IVPB 50 mls/hr Q12 [facility] Administration Protocol Metolazone 5 mg 04/13/17 10:45 04/20/17 08:44 Zaroxolyn PO 5 mg DAILY [facility] Administration Pantoprazole Sodium 40 mg 04/14/17 10:30 04/20/17 08:41 Protonix Susp NG 40 mg DAILY [facility] Administration Thiamine HCl 200 mg 04/13/17 21:00 04/20/17 08:44 Vitamin B1 Tab PO 200 mg Q12H [facility] Administration - Patient Studies Lab Studies: Microbiology Studies 04/17/17 05:30 Blood Culture - Preliminary Blood NO GROWTH AFTER 3 DAYS 04/17/17 16:28 Blood Culture - Preliminary Blood-Thru Central Line NO GROWTH AFTER 48 HOURS 04/17/17 16:28 Blood Culture - Preliminary Blood-Venous NO GROWTH AFTER 48 HOURS Lab Studies 04/20/17 04/20/17 04/20/17 Range/Units 05:30 05:30 04:34 WBC 19.5 H (4.8-10.8) K/uL RBC 3.14 L (3.80-5.20) Mil/uL Hgb 8.6 L (12.0-16.0) g/dL Hct 27.1 L (34.0-47.0) % MCV 86.3 (81.0-99.0) fl MCH 27.2 (27.0-31.0) pg MCHC 31.6 L (33.0-37.0) g/dL RDW 17.8 H (11.5-14.5) % Plt Count 75 L (130-400) K/uL MPV 9.8 (7.2-11.7) fl Neut % (Auto) 96.6 H (50.0-75.0) % Lymph % (Auto) 2.5 L (20.0-40.0) % Gates % (Auto) 0.7 (0.0-10.0) % Eos % (Auto) 0.1 (0.0-4.0) % Baso % (Auto) 0.1 (0.0-2.0) % Neut # 18.9 H (1.8-7.0) K/uL Lymph # 0.5 L (1.0-4.3) K/uL Gates # 0.1 (0.0-0.8) K/uL Eos # 0.0 (0.0-0.7) K/uL Baso # 0.0 (0.0-0.2) K/uL Neutrophils % (Manual) 92 H (42-75) % Band Neutrophils % 1 (0-2) % Lymphocytes % (Manual) 4 L (20-50) % Monocytes % (Manual) 1 (0-10) % Metamyelocytes % 2 H (0-0) % Platelet Estimate Decreased L (NORMAL) Poikilocytosis (manual Slight Anisocytosis (manual) Slight Ovalocytes Slight pCO2 44 (35-45) mm/Hg pO2 94 (80-100) mm/Hg HCO3 21.9 (21-28) mmol/L ABG pH 7.31 L (7.35-7.45) ABG Total CO2 23.6 (22-28) mmol/L ABG O2 Saturation 100.0 H (95-98) % ABG O2 Content 12.4 L (15-23) ML/dL ABG Base Excess -3.9 L (-2.0-3.0) mmol/L ABG Hemoglobin 9.0 L (11.7-17.4) g/dL ABG Carboxyhemoglobin 2.2 H (0.5-1.5) % POC ABG HHb (Measured) 0.0 (0.0-5.0) % ABG Methemoglobin 1.0 (0.0-3.0) % ABG O2 Capacity 12.4 L (16-24) mL/dL Domingo Test Yes A-a O2 Difference 136.0 mm/Hg Hgb O2 Saturation 96.8 (95.0-98.0) % Vent Mode A/c Mechanical Rate 14 FiO2 40.0 % Tidal Volume 450 PEEP 5 Sodium 149 H (132-148) mmol/l Potassium 3.6 (3.6-5.0) MMOL/L Chloride 113 H (98-107) mmol/L Carbon Dioxide 24 (22-30) mmol/L Anion Gap 16 (10-20) BUN 31 H (7-17) mg/dl Creatinine 1.2 (0.7-1.2) mg/dl Est GFR ( Amer) 57 Est GFR (Non-Af Amer) 47 Random Glucose 174 H (65-105) mg/dL Calcium 9.2 (8.4-10.2) mg/dL Laboratory Results - last 24 hr 04/20/17 04/20/17 04/20/17 04:34 05:30 05:30 WBC 19.5 H RBC 3.14 L Hgb 8.6 L Hct 27.1 L MCV 86.3 MCH 27.2 MCHC 31.6 L RDW 17.8 H Plt Count 75 L MPV 9.8 Neut % (Auto) 96.6 H Lymph % (Auto) 2.5 L Gates % (Auto) 0.7 Eos % (Auto) 0.1 Baso % (Auto) 0.1 Neut # 18.9 H Lymph # 0.5 L Gates # 0.1 Eos # 0.0 Baso # 0.0 Neutrophils % (Manual) 92 H Band Neutrophils % 1 Lymphocytes % (Manual) 4 L Monocytes % (Manual) 1 Metamyelocytes % 2 H Platelet Estimate Decreased L Poikilocytosis (manual Slight Anisocytosis (manual) Slight Ovalocytes Slight pCO2 44 pO2 94 HCO3 21.9 ABG pH 7.31 L ABG Total CO2 23.6 ABG O2 Saturation 100.0 H ABG O2 Content 12.4 L ABG Base Excess -3.9 L ABG Hemoglobin 9.0 L ABG Carboxyhemoglobin 2.2 H POC ABG HHb (Measured) 0.0 ABG Methemoglobin 1.0 ABG O2 Capacity 12.4 L Domingo Test Yes A-a O2 Difference 136.0 Hgb O2 Saturation 96.8 Vent Mode A/c Mechanical Rate 14 FiO2 40.0 Tidal Volume 450 PEEP 5 Sodium 149 H Potassium 3.6 Chloride 113 H Carbon Dioxide 24 Anion Gap 16 BUN 31 H Creatinine 1.2 Est GFR ( Amer) 57 Est GFR (Non-Af Amer) 47 Random Glucose 174 H Calcium 9.2 Fingerstick Blood Sugar Results: 221 Review of Systems - Review of Systems Systems not reviewed;Unavailable: Intubated (tracheostomy on MV) Critical Care Progress Note - Ventilator Checklist Head of Bed 30 Degrees: Yes Daily Sedation Vacation: Yes Daily Assessment of Readiness to Wean: Yes Daily Spontaneous Breathing Trial: Yes PUD Prophalyxis: Yes DVT Prophylaxis: Yes Oral Care with Chlorhexidine Gluconate {CHG}: Yes - Vent Settings MODE:: ASSIST CONTROL TIDAL VOLUME:: 450 RESP RATE:: 14 FIO2:: 40 PEEP:: 5 - Extremities/Vascular Does the Patient have a Central Venous Catheter?: Yes Insertion Site: Femoral Vein Does the Patient need a Central Venous Catheter?: Yes Does the Patient have a Overton Catheter?: Yes Does the Patient need a Overton Catheter?: Yes Catheter Insertion Criteria: Need for accurate measurement of output in critically ill patient - Restraints Justification for Restraints: High risk for self extubation, High risk for removing IV access, High risk for harming self - Prophylaxis GI Prophylaxis GI: PPI - Prophylaxis DVT Prophylaxis DVT: SCDs - Nutrition Nutrition: Nutrition Category Date Time Status NPO Diet [DIET] Diets 04/19/17 Breakfast Active
--- NOTE | 2017-04-20 15:19 | CP.PCM.PN ---
Subjective - Date & Time of Evaluation Date of Evaluation: 04/20/17 Time of Evaluation: 15:17 - Subjective Subjective: General Surgery Dr. Caldera Pt S&E @bedside. pt had percutaneous tracheostomy placed yesterday. there were no complications and pt tolerated the procedure well. NAEO. pt sedated on mechanical ventilation. Vent settings: 14, 450L, PEEP 5 ,FiO2 40% Objective - Vital Signs/Intake and Output Vital Signs (last 24 hours): Temp Pulse Resp BP Pulse Ox 99.1 F 122 H 17 114/69 100 04/20/17 12:00 04/20/17 12:00 04/20/17 12:00 04/20/17 12:00 04/20/17 12:00 Intake and Output: 04/20/17 04/20/17 06:59 18:59 Intake Total 885 480 Output Total 1625 Balance -740 480 - Medications Medications: Current Medications Acetaminophen (Tylenol 650 Mg Supp) 650 mg WI Q4 PRN PRN Reason: Temp >101 Last Admin: 04/06/17 16:15 Dose: 650 mg Acetaminophen (Tylenol 650mg/20.3ml Solution Ud) 650 mg PO Q4 PRN PRN Reason: Temperature Last Admin: 04/20/17 04:02 Dose: 650 mg Albuterol/Ipratropium (Duoneb 3 Mg/0.5 Mg (3 Ml) Ud) 3 ml INH RQ4 PRN PRN Reason: Shortness of Breath Last Admin: 04/16/17 13:09 Dose: 3 ml Ascorbic Acid (Vitamin C 500 Mg Tab) 1,500 mg PO Q6 ODETTE Last Admin: 04/20/17 10:16 Dose: 1,500 mg Heparin Sodium (Porcine) (Heparin) 5,000 units SC Q12 ODETTE PRN Reason: Protocol Last Admin: 04/18/17 21:06 Dose: Not Given Hydrocortisone Sodium Succinate (Solu-Cortef) 50 mg IV 0300,0900,1500,2100 [facility] Last Admin: 04/20/17 08:42 Dose: 50 mg Vancomycin HCl 250 mg/ Sodium (Chloride) 100 mls @ 100 mls/hr IVPB Q24H ODETTE PRN Reason: Protocol Last Admin: 04/19/17 13:00 Dose: 100 mls/hr Tobramycin Sulfate 60 mg/ (Sodium Chloride) 101.5 mls @ 100 mls/hr IV Q24H ODETTE Last Admin: 04/19/17 18:10 Dose: 100 mls/hr Fluconazole (Diflucan Iv 100 Mg/50 Ml Ns) 50 mls @ 50 mls/hr IVPB DAILY ODETTE PRN Reason: Protocol Last Admin: 04/20/17 10:16 Dose: 50 mls/hr Phenylephrine HCl 10 mg/ (Sodium Chloride) 251 mls @ 30.12 mls/hr IV .Q8H20M ODETTE; 20 MCG/MIN PRN Reason: Protocol Last Admin: 04/18/17 01:10 Dose: 10 mcg/min, 15.06 mls/hr Clindamycin in NS (Clindamycin 300 Mg/50 Ml-Ns) 300 mg in 50 mls @ 50 mls/hr IVPB Q12 ODETTE PRN Reason: Protocol Last Admin: 04/20/17 08:46 Dose: 50 mls/hr Metolazone (Zaroxolyn) 5 mg PO DAILY [facility] Last Admin: 04/20/17 08:44 Dose: 5 mg Pantoprazole Sodium (Protonix Susp) 40 mg NG DAILY [facility] Last Admin: 04/20/17 08:41 Dose: 40 mg Thiamine HCl (Vitamin B1 Tab) 200 mg PO Q12H ODETTE Last Admin: 04/20/17 08:44 Dose: 200 mg - Labs Labs: 04/20/17 05:30 04/20/17 05:30 PT 15.8 Seconds (9.8-13.1) H 04/14/17 04:20 INR 1.4 (0.9-1.2) H 04/14/17 04:20 APTT 33.0 Seconds (25.6-37.1) 04/14/17 04:20 - Constitutional Appears: Non-toxic, No Acute Distress - Head Exam Head Exam: NORMAL INSPECTION - ENT Exam ENT Exam: Mucous Membranes Moist - Neck Exam Additional comments: tracheostomy sutured in place. functioning appropriately. - Respiratory Exam Respiratory Exam: NORMAL BREATHING PATTERN (mechanical ventilation) - Cardiovascular Exam Cardiovascular Exam: Tachycardia - GI/Abdominal Exam GI & Abdominal Exam: Soft. absent: Distended, Guarding, Tenderness, Rebound - Extremities Exam Extremities Exam: Pedal Edema (B/L Upper & Lower extremity edema) - Neurological Exam Neurological Exam: absent: Alert (sedated), Awake - Psychiatric Exam Psychiatric exam: absent: Normal Affect (sedated), Normal Mood - Skin Skin Exam: Dry, Intact, Normal Color, Warm Assessment and Plan - Assessment and Plan (Free Text) Assessment: 51 y/o F w/ respiratory failure 2/2 septic shock POD#1 s/p Percutaneous Tracheostomy - packing removed from trach - Sutures to be removed POD#10 - wean off vent per ICU - cont medical management per Critical Care - no further surgical intervention at this time. please re-consult if needed Pt discussed w/ Dr. Werner Heredia DO PGY2
--- NOTE | 2017-04-20 17:39 | CP.PCM.PN ---
Subjective - Date & Time of Evaluation Date of Evaluation: 04/20/17 Time of Evaluation: 10:20 - Subjective Subjective: F/U Respiratory Failure. Pt unresponsive, Pt's family at bedside. Objective - Vital Signs/Intake and Output Vital Signs (last 24 hours): Temp Pulse Resp BP Pulse Ox 100.7 F H 118 H 14 102/59 L 99 04/20/17 16:00 04/20/17 17:00 04/20/17 17:00 04/20/17 17:00 04/20/17 17:00 Intake and Output: 04/20/17 04/20/17 06:59 18:59 Intake Total 885 1100 Output Total 1625 1100 Balance -740 0 - Medications Medications: Current Medications Acetaminophen (Tylenol 650 Mg Supp) 650 mg [place] Q4 PRN PRN Reason: Temp >101 Last Admin: 04/06/17 16:15 Dose: 650 mg Acetaminophen (Tylenol 650mg/20.3ml Solution Ud) 650 mg PO Q4 PRN PRN Reason: Temperature Last Admin: 04/20/17 15:30 Dose: 650 mg Albuterol/Ipratropium (Duoneb 3 Mg/0.5 Mg (3 Ml) Ud) 3 ml INH RQ4 PRN PRN Reason: Shortness of Breath Last Admin: 04/16/17 13:09 Dose: 3 ml Ascorbic Acid (Vitamin C 500 Mg Tab) 1,500 mg PO Q6 ODETTE Last Admin: 04/20/17 16:44 Dose: 1,500 mg Heparin Sodium (Porcine) (Heparin) 5,000 units SC Q12 ODETTE PRN Reason: Protocol Last Admin: 04/18/17 21:06 Dose: Not Given Hydrocortisone Sodium Succinate (Solu-Cortef) 50 mg IV 0300,0900,1500,2100 [facility] Last Admin: 04/20/17 15:28 Dose: 50 mg Vancomycin HCl 250 mg/ Sodium (Chloride) 100 mls @ 100 mls/hr IVPB Q24H ODETTE PRN Reason: Protocol Last Admin: 04/20/17 13:00 Dose: 100 mls/hr Tobramycin Sulfate 60 mg/ (Sodium Chloride) 101.5 mls @ 100 mls/hr IV Q24H ODETTE Last Admin: 04/19/17 18:10 Dose: 100 mls/hr Fluconazole (Diflucan Iv 100 Mg/50 Ml Ns) 50 mls @ 50 mls/hr IVPB DAILY ODETTE PRN Reason: Protocol Last Admin: 04/20/17 10:16 Dose: 50 mls/hr Phenylephrine HCl 10 mg/ (Sodium Chloride) 251 mls @ 30.12 mls/hr IV .Q8H20M ODETTE; 20 MCG/MIN PRN Reason: Protocol Last Admin: 04/18/17 01:10 Dose: 10 mcg/min, 15.06 mls/hr Clindamycin in NS (Clindamycin 300 Mg/50 Ml-Ns) 300 mg in 50 mls @ 50 mls/hr IVPB Q12 ODETTE PRN Reason: Protocol Last Admin: 04/20/17 08:46 Dose: 50 mls/hr Metolazone (Zaroxolyn) 5 mg PO DAILY [facility] Last Admin: 04/20/17 08:44 Dose: 5 mg Pantoprazole Sodium (Protonix Susp) 40 mg NG DAILY [facility] Last Admin: 04/20/17 08:41 Dose: 40 mg Thiamine HCl (Vitamin B1 Tab) 200 mg PO Q12H [facility] Last Admin: 04/20/17 08:44 Dose: 200 mg - Labs Labs: 04/20/17 05:30 04/20/17 05:30 PT 15.8 Seconds (9.8-13.1) H 04/14/17 04:20 INR 1.4 (0.9-1.2) H 04/14/17 04:20 APTT 33.0 Seconds (25.6-37.1) 04/14/17 04:20 - Constitutional Appears: Chronically Ill - Head Exam Head Exam: NORMAL INSPECTION - Eye Exam Eye Exam: PERRL - ENT Exam Additional comments: Tracheotomy in place. - Neck Exam Additional comments: Tracheotomy in place - Respiratory Exam Respiratory Exam: Decreased Breath Sounds (at bases), Rhonchi (scattered) - Cardiovascular Exam Cardiovascular Exam: REGULAR RHYTHM - GI/Abdominal Exam GI & Abdominal Exam: Soft, Normal Bowel Sounds - Extremities Exam Extremities Exam: Pedal Edema Additional comments: L heel DTI, R lateral ankle DTI, MSAD posterior tigh. - Back Exam Additional comments: MSAD uttock, sacrum, R flank. - Neurological Exam Additional comments: Tracheotomy, eyes open, no following commands. Assessment and Plan (1) Acute respiratory failure Status: Acute (2) Status post tracheostomy Status: Acute (3) Shock Status: Deleted (4) Pneumonia Status: Acute (5) Acute renal failure (ARF) Status: Acute (6) Anemia Status: Acute (7) Hematuria, gross Status: Deleted (8) Thrombocytopenia Status: Resolved (9) History of pulmonary embolus (PE) Status: Acute (10) Pancolitis Status: Deleted - Assessment and Plan (Free Text) Plan: Renal failure improved, discussed with renal beverage sales consultant to be off HD, continue Vanco, Clinda and rest of Tx. Dr Dillon wound consult.
[2017-04-20] MEDS: Tobramycin inj 60 MG in Sodium Chloride 0.9% 100 ML IV SCH (18:01)
[2017-04-21] MEDS: Acetaminophen 650mg/20.3ml solution UD PO PRN ×2 (04:49→12:12)
[2017-04-21 05:11] LABS: ABG ALLEN TEST YES; ABG MECHANICAL RATE 14; ARTERIAL BLOOD GAS MODE A/C; ARTERIAL BLOOD GAS O2 CAPACITY 11.5 mL/dL (16-24); ARTERIAL BLOOD GAS O2 CONTENT 11.4 ML/dL (15-23); ARTERIAL BLOOD GAS PH 7.28 (7.35-7.45); ARTERIAL BLOOD GAS PO2 79 mm/Hg (80-100); ARTERIAL BLOOD HGB O2 SAT 94.6 % (95.0-98.0); ATERIAL BLOOD GAS PEEP 5; CARBOXYHEMOGLOBIN 2.8 % (0.5-1.5); HHB 0.8 % (0.0-5.0); METHEMOGLOBIN 1.8 % (0.0-3.0)
[2017-04-21 05:52] LABS: HEMATOCRIT 25.6 % (34.0-47.0); MEAN CELL VOLUME 86.3 fl (81.0-99.0); MEAN CORPUSCULAR HGB CONC 31.3 g/dL (33.0-37.0); RED CELL DISTRIBUTION WIDTH 18.1 % (11.5-14.5); WHITE BLOOD COUNT 18.4 K/uL (4.8-10.8)
[2017-04-21 06:52] LABS: ALB/GLOB RATIO 1.2 (1.0-2.1); BILIRUBIN,TOTAL 1.1 mg/dl (0.2-1.3); CALCIUM 9.9 mg/dL (8.4-10.2); MAGNESIUM 1.5 MG/DL (1.6-2.3); PHOSPHOROUS 4.1 mg/dl (2.5-4.5); POTASSIUM 2.6 MMOL/L (3.6-5.0); TOTAL PROTEIN 5.4 G/DL (6.3-8.2)
[2017-04-21] MEDS: metOLazone 5 MG TAB PO SCH (08:30)
[2017-04-21] MEDS: Clindamycin in NS 300 MG/50 ML BAG IVPB SCH ×2 (08:30→21:26)
[2017-04-21] MEDS: Pantoprazole 40 mg Susp UD NG SCH (08:30)
[2017-04-21] MEDS: Fluconazole IV 100mg/50 ml NS 50 ML IVPB SCH (08:31)
--- NOTE | 2017-04-21 08:48 | CP.CCUPN ---
CCU Subjective - Physician Review Subjective (Free Text): Does not open eyes to pain, but Nurse able to get her to respond to simple questions overnight. No overall distress, POD #2 Trach, breathing 19 on AC 18, 450ml TV, 40%, 5 PEEP with SPO2 100%. Vent rate increased to 18 overnight for mild hypercarbia. Placed on Clinitron bed for severe sin wound mgmt. Other vitals and I/O's reviewed. T max 100.8F. Now responsive to aggressive diuresis with over 1000ml urine each shift. ROS: Unobtainable from intubated Patient. No other pertinent negs or positives on 10+ system review. PMSFH: All Nursing and physician documentation reviewed to date; no new pertinent info noted relevant to current medical problems. CXR: essentially unchanged: trach tube position ok within tracheal air column, RLL infiltrate vs R effusion and elevated R hemidiaphragm persists. ( my interp ). MAJOR PROBLEMS: 1. +Kleb pneumoniae (ESBL) and E. faecalis Bacteremia 2. Septic Shock 2 #1 3. Acute Renal Failure / ATN 4. Acute Resp Failure, 2 pneumonia 5. Thrombocytopenia / Coagulopathy PLAN: 1. Lactic acid levels normalized. Off Vasopressors. Will check repeat Vit C, Procalcitonin levels. 2. Abx coverage changed to Clindamycin / Diflucan / Tobra/ Vanco. Changed Overton, otherwise unable to discontinue Overton due to severe dependent skin area breakdown. 3. No MV weans today, awaiting trach stability over the next 24-48hours. Dense Atelectasis described in last CT Chest report on 04/11. Consider repeat study or Pulm eval for feasibility for FOB/ Bal. 4. Consider changing invasive lines. PICC precluded in order to save veins for possible detention or permanent HD access. Will discuss with Nephro regarding this possibility or need. 5. Lasix / Zaroxlyn as tolerated. Supplement K and Mg: approx. 100 meQ KCL and 2 grams Mg today. 6. Bedside PT for PROM. CCU Objective - Vital Signs / Intake & Output Vital Signs (Last 4 hours): Vital Signs Temp Pulse Resp BP Pulse Ox 04/21/17 08:00 100.4 F H 118 H 18 112/62 99 04/21/17 07:00 117 H 18 106/49 L 99 04/21/17 06:00 120 H 20 113/61 97 04/21/17 05:49 100.4 F H 04/21/17 05:00 100.8 F H 122 H 18 123/61 96 04/21/17 04:49 100.8 F H Intake and Output (Last 8hrs): Intake & Output 04/20/17 04/21/17 04/21/17 22:59 06:59 14:59 Intake Total 430 100 140 Output Total 750 Balance 430 -650 140 Weight 179 lb Intake: IV 0 0 Intake, Piggyback 150 Tube Feeding 280 140 Free Water Flush 100 Output: Urine 750 Urethral (Overton) 750 - Physical Exam Head: Positive for: Atraumatic, Normocephalic. Negative for: Tenderness, Contusion Pupils: Positive for: PERRL. Negative for: Sluggish, Non-Reactive Extroacular Muscles: Positive for: EOMI. Negative for: Gaze Palsy Conjunctiva: Positive for: Normal. Negative for: Injected, Icteric Mouth: Positive for: Dry (bloody) Neck: Negative for: JVD Respiratory/Chest: Positive for: Decreased Breath Sounds, Retracting, Rhonchi, Tachypneic. Negative for: Accessory Muscle Use, Wheezes Cardiovascular: Positive for: Tachycardic. Negative for: Murmurs, Rub Abdomen: Positive for: Distention, Normal Bowel Sounds. Negative for: Tenderness Upper Extremity: Positive for: Edema Lower Extremity: Positive for: Edema. Negative for: CALF TENDERNESS, NORMAL PULSES, Cyanosis Psychiatric: Positive for: Alert - Medications Active Medications: Active Medications Generic Name Dose Route Start Last Admin Trade Name Freq PRN Reason Stop Dose Admin Acetaminophen 650 mg 04/07/17 04:12 04/21/17 04:49 Tylenol 650mg/20.3ml Solution Ud PO 650 mg Q4 PRN Administration Temperature Albuterol/Ipratropium 3 ml 04/04/17 19:10 04/16/17 13:09 Duoneb 3 Mg/0.5 Mg (3 Ml) Ud INH 3 ml RQ4 PRN Administration Shortness of Breath Ascorbic Acid 1,500 mg 04/13/17 10:00 04/21/17 04:00 Vitamin C 500 Mg Tab PO 1,500 mg Q6 ODETTE Administration Heparin Sodium (Porcine) 5,000 units 04/16/17 10:30 04/18/17 21:06 Heparin SC Not Given Q12 ODETTE Protocol Hydrocortisone Sodium Succinate 50 mg 04/19/17 21:00 04/21/17 08:30 Solu-Cortef IV 50 mg 0300,0900,1500,2100 ODETTE Administration Vancomycin HCl 250 mg/ Sodium 100 mls @ 100 mls/hr 04/11/17 09:45 04/20/17 13 :00 Chloride IVPB 100 mls/hr Q24H ODETTE Administration Protocol Tobramycin Sulfate 60 mg/ 101.5 mls @ 100 mls/hr 04/11/17 18:30 04/20/17 18: 01 Sodium Chloride IV 100 mls/hr Q24H ODETTE Administration Fluconazole 50 mls @ 50 mls/hr 04/16/17 09:00 04/21/17 08:31 Diflucan Iv 100 Mg/50 Ml Ns IVPB 50 mls/hr DAILY ODETTE Administration Protocol Phenylephrine HCl 10 mg/ 251 mls @ 30.12 mls/hr 04/16/17 10:30 04/18/17 01:10 Sodium Chloride IV 10 mcg/min .Q8H20M ODETTE 15.06 mls/hr Protocol Administration 20 MCG/MIN Clindamycin in NS 300 mg in 50 mls @ 50 mls/hr 04/19/17 21:00 04/21/17 08:30 Clindamycin 300 Mg/50 Ml-Ns IVPB 50 mls/hr Q12 ODETTE Administration Protocol Metolazone 5 mg 04/13/17 10:45 04/21/17 08:30 Zaroxolyn PO 5 mg DAILY ODETTE Administration Pantoprazole Sodium 40 mg 04/14/17 10:30 04/21/17 08:30 Protonix Susp NG 40 mg DAILY ODETTE Administration Thiamine HCl 200 mg 04/13/17 21:00 04/21/17 08:30 Vitamin B1 Tab PO 200 mg Q12H ODETTE Administration - Patient Studies Lab Studies: Microbiology Studies 04/17/17 05:30 Blood Culture - Preliminary Blood NO GROWTH AFTER 4 DAYS 04/17/17 16:28 Blood Culture - Preliminary Blood-Thru Central Line NO GROWTH AFTER 3 DAYS 04/17/17 16:28 Blood Culture - Preliminary Blood-Venous NO GROWTH AFTER 3 DAYS Lab Studies 04/21/17 04/21/17 04/21/17 Range/Units 05:00 04:54 04:20 WBC (4.8-10.8) K/uL RBC (3.80-5.20) Mil/uL Hgb (12.0-16.0) g/dL Hct (34.0-47.0) % MCV (81.0-99.0) fl MCH (27.0-31.0) pg MCHC (33.0-37.0) g/dL RDW (11.5-14.5) % Plt Count (130-400) K/uL pCO2 52 H (35-45) mm/Hg pO2 79 L (80-100) mm/Hg HCO3 23.0 (21-28) mmol/L ABG pH 7.28 L (7.35-7.45) ABG Total CO2 26.0 (22-28) mmol/L ABG O2 Saturation 99.2 H (95-98) % ABG O2 Content 11.4 L (15-23) ML/dL ABG Base Excess -2.5 L (-2.0-3.0) mmol/L ABG Hemoglobin 8.5 L (11.7-17.4) g/dL ABG Carboxyhemoglobin 2.8 H (0.5-1.5) % POC ABG HHb (Measured) 0.8 (0.0-5.0) % ABG Methemoglobin 1.8 (0.0-3.0) % ABG O2 Capacity 11.5 L (16-24) mL/dL Domingo Test Yes A-a O2 Difference 141.0 mm/Hg Hgb O2 Saturation 94.6 L (95.0-98.0) % Vent Mode A/c Mechanical Rate 14 FiO2 40.0 % Tidal Volume 450 PEEP 5 Sodium (132-148) mmol/l Potassium (3.6-5.0) MMOL/L Chloride (98-107) mmol/L Carbon Dioxide (22-30) mmol/L Anion Gap (10-20) BUN (7-17) mg/dl Creatinine (0.7-1.2) mg/dl Est GFR ( Amer) Est GFR (Non-Af Amer) POC Glucose (mg/dL) 167 H (65-110) mg/dL Random Glucose (65-105) mg/dL Lactic Acid 1.3 (0.7-2.1) MMOL/L Calcium (8.4-10.2) mg/dL Phosphorus (2.5-4.5) mg/dl Magnesium (1.6-2.3) MG/DL Total Bilirubin (0.2-1.3) mg/dl AST (14-36) U/L ALT (9-52) U/L Alkaline Phosphatase (38-126) U/L Total Protein (6.3-8.2) G/DL Albumin (3.5-5.0) g/dL Globulin (2.2-3.9) gm/dL Albumin/Globulin Ratio (1.0-2.1) Vancomycin Trough (5.0-10.0) ug/mL 04/21/17 04/21/17 04/20/17 Range/Units 04:20 04:20 12:16 WBC 18.4 H (4.8-10.8) K/uL RBC 2.97 L (3.80-5.20) Mil/uL Hgb 8.0 L (12.0-16.0) g/dL Hct 25.6 L (34.0-47.0) % MCV 86.3 (81.0-99.0) fl MCH 27.0 (27.0-31.0) pg MCHC 31.3 L (33.0-37.0) g/dL RDW 18.1 H (11.5-14.5) % Plt Count 98 L D (130-400) K/uL pCO2 (35-45) mm/Hg pO2 (80-100) mm/Hg HCO3 (21-28) mmol/L ABG pH (7.35-7.45) ABG Total CO2 (22-28) mmol/L ABG O2 Saturation (95-98) % ABG O2 Content (15-23) ML/dL ABG Base Excess (-2.0-3.0) mmol/L ABG Hemoglobin (11.7-17.4) g/dL ABG Carboxyhemoglobin (0.5-1.5) % POC ABG HHb (Measured) (0.0-5.0) % ABG Methemoglobin (0.0-3.0) % ABG O2 Capacity (16-24) mL/dL Domingo Test A-a O2 Difference mm/Hg Hgb O2 Saturation (95.0-98.0) % Vent Mode Mechanical Rate FiO2 % Tidal Volume PEEP Sodium 148 (132-148) mmol/l Potassium 2.6 L (3.6-5.0) MMOL/L Chloride 111 H (98-107) mmol/L Carbon Dioxide 25 (22-30) mmol/L Anion Gap 15 (10-20) BUN 38 H (7-17) mg/dl Creatinine 1.4 H (0.7-1.2) mg/dl Est GFR ( Amer) 48 Est GFR (Non-Af Amer) 39 POC Glucose (mg/dL) (65-110) mg/dL Random Glucose 124 H (65-105) mg/dL Lactic Acid (0.7-2.1) MMOL/L Calcium 9.9 (8.4-10.2) mg/dL Phosphorus 4.1 (2.5-4.5) mg/dl Magnesium 1.5 L (1.6-2.3) MG/DL Total Bilirubin 1.1 (0.2-1.3) mg/dl AST 48 H D (14-36) U/L ALT 51 (9-52) U/L Alkaline Phosphatase 354 H D (38-126) U/L Total Protein 5.4 L (6.3-8.2) G/DL Albumin 2.9 L (3.5-5.0) g/dL Globulin 2.5 (2.2-3.9) gm/dL Albumin/Globulin Ratio 1.2 (1.0-2.1) Vancomycin Trough 12.9 H (5.0-10.0) ug/mL Laboratory Results - last 24 hr 04/20/17 04/21/17 04/21/17 12:16 04:20 04:20 WBC 18.4 H RBC 2.97 L Hgb 8.0 L Hct 25.6 L MCV 86.3 MCH 27.0 MCHC 31.3 L RDW 18.1 H Plt Count 98 L D pCO2 pO2 HCO3 ABG pH ABG Total CO2 ABG O2 Saturation ABG O2 Content ABG Base Excess ABG Hemoglobin ABG Carboxyhemoglobin POC ABG HHb (Measured) ABG Methemoglobin ABG O2 Capacity Domingo Test A-a O2 Difference Hgb O2 Saturation Vent Mode Mechanical Rate FiO2 Tidal Volume PEEP Sodium 148 Potassium 2.6 L Chloride 111 H Carbon Dioxide 25 Anion Gap 15 BUN 38 H Creatinine 1.4 H Est GFR ( Amer) 48 Est GFR (Non-Af Amer) 39 POC Glucose (mg/dL) Random Glucose 124 H Lactic Acid Calcium 9.9 Phosphorus 4.1 Magnesium 1.5 L Total Bilirubin 1.1 AST 48 H D ALT 51 Alkaline Phosphatase 354 H D Total Protein 5.4 L Albumin 2.9 L Globulin 2.5 Albumin/Globulin Ratio 1.2 Vancomycin Trough 12.9 H 04/21/17 04/21/17 04/21/17 04:20 04:54 05:00 WBC RBC Hgb Hct MCV MCH MCHC RDW Plt Count pCO2 52 H pO2 79 L HCO3 23.0 ABG pH 7.28 L ABG Total CO2 26.0 ABG O2 Saturation 99.2 H ABG O2 Content 11.4 L ABG Base Excess -2.5 L ABG Hemoglobin 8.5 L ABG Carboxyhemoglobin 2.8 H POC ABG HHb (Measured) 0.8 ABG Methemoglobin 1.8 ABG O2 Capacity 11.5 L Domingo Test Yes A-a O2 Difference 141.0 Hgb O2 Saturation 94.6 L Vent Mode A/c Mechanical Rate 14 FiO2 40.0 Tidal Volume 450 PEEP 5 Sodium Potassium Chloride Carbon Dioxide Anion Gap BUN Creatinine Est GFR ( Amer) Est GFR (Non-Af Amer) POC Glucose (mg/dL) 167 H Random Glucose Lactic Acid 1.3 Calcium Phosphorus Magnesium Total Bilirubin AST ALT Alkaline Phosphatase Total Protein Albumin Globulin Albumin/Globulin Ratio Vancomycin Trough Fingerstick Blood Sugar Results: 221 Review of Systems - Review of Systems Systems not reviewed;Unavailable: Intubated Critical Care Progress Note - Ventilator Checklist Head of Bed 30 Degrees: Yes Daily Sedation Vacation: Yes Daily Assessment of Readiness to Wean: Yes Daily Spontaneous Breathing Trial: Yes PUD Prophalyxis: Yes DVT Prophylaxis: Yes Oral Care with Chlorhexidine Gluconate {CHG}: Yes - Vent Settings MODE:: ASSIST CONTROL TIDAL VOLUME:: 450 RESP RATE:: 18 FIO2:: 40 PEEP:: 5 - Extremities/Vascular Does the Patient have a Central Venous Catheter?: Yes Insertion Site: Femoral Vein Does the Patient need a Central Venous Catheter?: Yes Does the Patient have a Overton Catheter?: Yes Does the Patient need a Overton Catheter?: Yes Catheter Insertion Criteria: Need for accurate measurement of output in critically ill patient - Prophylaxis GI Prophylaxis GI: PPI - Prophylaxis DVT Prophylaxis DVT: SCDs - Nutrition Nutrition: Nutrition Category Date Time Status NPO Diet [DIET] Diets 04/19/17 Breakfast Active
[2017-04-21] MEDS ORDERED: Potassium CL 10 MEQ/50 ML 50 ML IVPB SCH (09:00)
[2017-04-21] MEDS ORDERED: Magnesium Sulfate 2 gm/50 ml 2 GM/50 ML BAG IV ONE (09:15)
[2017-04-21] MEDS: Potassium Chloride 20 mEq/15 ml LIQ UD PO SCH ×2 (09:53→12:12)
[2017-04-21] MEDS: Vancomycin 250 MG in Sodium Chloride 0.9% 100 ML IVPB SCH (10:25)
--- NOTE | 2017-04-21 10:45 | RAD ---
HISTORY: Trach tube position COMPARISON: Yesterday FINDINGS: LUNGS: No change in tubes and lines. There is mild improvement in aeration bilaterally. PLEURA: No new effusion or pneumothorax. CARDIOVASCULAR: Mildly improved. OSSEOUS STRUCTURES: No significant abnormalities. VISUALIZED UPPER ABDOMEN: Normal. OTHER FINDINGS: None. IMPRESSION: Probable overall mild interval improvement with decreased congestion and mild improvement in aeration.
[2017-04-21] MEDS ORDERED: Potassium Chloride 20 mEq/15 ml LIQ UD PO SCH (14:30)
--- NOTE | 2017-04-21 14:32 | CP.PCM.PN ---
Subjective - Date & Time of Evaluation Date of Evaluation: 04/21/17 Time of Evaluation: 12:00 - Subjective Subjective: F/U Respiratory Failure At times open eyes to verbal stimuli , tracheostomy. Objective - Vital Signs/Intake and Output Vital Signs (last 24 hours): Temp Pulse Resp BP Pulse Ox 100.5 F H 98 H 18 127/80 94 L 04/21/17 13:00 04/21/17 14:00 04/21/17 14:00 04/21/17 14:00 04/21/17 14:00 Intake and Output: 04/21/17 04/21/17 06:59 18:59 Intake Total 290 1010 Output Total 750 200 Balance -460 810 - Medications Medications: Current Medications Acetaminophen (Tylenol 650mg/20.3ml Solution Ud) 650 mg PO Q4 PRN PRN Reason: Temperature Last Admin: 04/21/17 12:12 Dose: 650 mg Albuterol/Ipratropium (Duoneb 3 Mg/0.5 Mg (3 Ml) Ud) 3 ml INH RQ4 PRN PRN Reason: Shortness of Breath Last Admin: 04/16/17 13:09 Dose: 3 ml Ascorbic Acid (Vitamin C 500 Mg Tab) 1,500 mg PO Q6 ODETTE Last Admin: 04/21/17 09:54 Dose: 1,500 mg Heparin Sodium (Porcine) (Heparin) 5,000 units SC Q12 ODETTE PRN Reason: Protocol Last Admin: 04/21/17 10:26 Dose: 5,000 units Hydrocortisone Sodium Succinate (Solu-Cortef) 50 mg IV 0300,0900,1500,2100 ODETTE Last Admin: 04/21/17 08:30 Dose: 50 mg Vancomycin HCl 250 mg/ Sodium (Chloride) 100 mls @ 100 mls/hr IVPB Q24H ODETTE PRN Reason: Protocol Last Admin: 04/21/17 10:25 Dose: 100 mls/hr Tobramycin Sulfate 60 mg/ (Sodium Chloride) 101.5 mls @ 100 mls/hr IV Q24H ODETTE Last Admin: 04/20/17 18:01 Dose: 100 mls/hr Fluconazole (Diflucan Iv 100 Mg/50 Ml Ns) 50 mls @ 50 mls/hr IVPB DAILY ODETTE PRN Reason: Protocol Last Admin: 04/21/17 08:31 Dose: 50 mls/hr Clindamycin in NS (Clindamycin 300 Mg/50 Ml-Ns) 300 mg in 50 mls @ 50 mls/hr IVPB Q12 ODETTE PRN Reason: Protocol Last Admin: 04/21/17 08:30 Dose: 50 mls/hr Metolazone (Zaroxolyn) 5 mg PO DAILY [facility] Last Admin: 04/21/17 08:30 Dose: 5 mg Pantoprazole Sodium (Protonix Susp) 40 mg NG DAILY ODETTE Last Admin: 04/21/17 08:30 Dose: 40 mg Potassium Chloride (Potassium Chloride Oral Soln) 40 meq PO QID ODETTE Stop: 04/21/17 22:01 Thiamine HCl (Vitamin B1 Tab) 200 mg PO Q12H ODETTE Last Admin: 04/21/17 08:30 Dose: 200 mg - Labs Labs: 04/21/17 04:20 04/21/17 04:20 PT 15.8 Seconds (9.8-13.1) H 04/14/17 04:20 INR 1.4 (0.9-1.2) H 04/14/17 04:20 APTT 33.0 Seconds (25.6-37.1) 04/14/17 04:20 - Constitutional Appears: Chronically Ill - Head Exam Head Exam: NORMAL INSPECTION - Eye Exam Eye Exam: PERRL - ENT Exam ENT Exam: Normal Exam - Neck Exam Additional comments: Tracheostomy - Respiratory Exam Respiratory Exam: Decreased Breath Sounds (at bases), Rhonchi (scattered) - Cardiovascular Exam Cardiovascular Exam: REGULAR RHYTHM - GI/Abdominal Exam GI & Abdominal Exam: Soft, Normal Bowel Sounds - Extremities Exam Additional comments: L heel and R lateral ankle DTI, MSAD posterior tigh. - Back Exam Additional comments: MSAD buttock, sacrum, R flank. - Neurological Exam Additional comments: Tracheostomy , no response to verbal or tactile stimuli at the moment of examination - Skin Skin Exam: Warm Assessment and Plan (1) Acute respiratory failure Status: Acute (2) Status post tracheostomy Status: Acute (3) Shock Status: Deleted (4) Pneumonia Status: Acute (5) Acute renal failure (ARF) Status: Acute (6) Anemia Status: Acute (7) Hematuria, gross Status: Deleted (8) Thrombocytopenia Status: Resolved (9) History of pulmonary embolus (PE) Status: Acute (10) Pancolitis Status: Deleted - Assessment and Plan (Free Text) Plan: continue ventilatory suport , Tobra , Vanco , Zaroxolyn , Hydrocortisone and rest of treatment
--- NOTE | 2017-04-21 16:53 | CP.PCM.PN ---
Subjective - Date & Time of Evaluation Date of Evaluation: 04/21/17 Time of Evaluation: 16:50 - Subjective Subjective: Follow up Nephrology Consultation Note Assessment: critical Non-oliguric Acute Kidney Injury (N17.9) likely due to acute tubular necrosis due to septic shock, required renal replacement therapy Acute respi failure Hypomagnesemia, Hypokalemia, Hypernatremia Sepsis with shock Obesity hx of ovarian CA s/p RODRIGO/BSO, DVT s/p IVC filter Anemia Plan No acute need for renal replacement therapy at present. fluid status improved, making more urine. creatinine stable at 1.4 considering febrile status and no immediate need for dialysis, can remove shiley catheter now. continue with IV lasix 40 mg bid. pt also on metolazone supplement electrolytes as KDUR and Magnesium. continue with free water 250 mL q6 hr Monitor Input/Output, daily weights and renal function with basic metabolic panel PRBC as needed for anemia Dose meds/antibiotics for improved GFR. Avoid fleets enema/magnesium based laxatives. Avoid nephrotoxins/NSAIDs/ iodinated contrast (unless needed emergently) Glycemic control Further work up for as per primary team Thanks for allowing me to participate in care of your patient. Will follow patient with you. Please call if any Qs. d/w ICU team Dr Reji Nunez Office: [phone] Subjective: Noted events overnight. Patients s/p trach unable to obtain hx from patient. off pressors. continue to make adequate amount of urine. dialysis not needed since weekend Physical Examination: General Appearance: Comfortable, in no acute respiratory distress, ill appearing , s/p trach Vitals reviewed and noted as below Lungs: Normal respiratory rate/effort. Breath sounds bilateral equal and has rales+ Heart: Normal rate. s1s2 normal. No rub or gallop. Extremities: no edema. Neurological: Patient is awake but not communicative at present Skin: Warm and dry. Normal turgor. No rash. Palpitation: Normal elasticity for age Abdomen: Abdomen is soft. Bowel sounds +. There is no abdominal tenderness, no guarding/rigidity or organomegaly : kidney or bladder not palpable Access: shiley IJ Head; Atraumatic, normocephalic EYES: Pupils are equal, round and reactive to light accommodation. Eye muscles and extraocular movement intact. Sclera is anicteric. Neck; supple no lymphadenopathy, no thyromegaly or bruit Psych: Unable MSK: no joint tenderness or swelling. Digits and nails normal, no deformity Labs/imaging reviewed. Past medical history, past surgical history, family history, social history, allergy reviewed family hx No hx of CKD Objective - Vital Signs/Intake and Output Vital Signs (last 24 hours): Temp Pulse Resp BP Pulse Ox 99.1 F 115 H 18 122/65 100 04/21/17 16:00 04/21/17 16:00 04/21/17 16:00 04/21/17 16:00 04/21/17 16:00 Intake and Output: 04/21/17 04/21/17 06:59 18:59 Intake Total 290 1500 Output Total 750 200 Balance -460 1300 - Medications Medications: Current Medications Acetaminophen (Tylenol 650mg/20.3ml Solution Ud) 650 mg PO Q4 PRN PRN Reason: Temperature Last Admin: 04/21/17 12:12 Dose: 650 mg Albuterol/Ipratropium (Duoneb 3 Mg/0.5 Mg (3 Ml) Ud) 3 ml INH RQ4 PRN PRN Reason: Shortness of Breath Last Admin: 04/16/17 13:09 Dose: 3 ml Ascorbic Acid (Vitamin C 500 Mg Tab) 1,500 mg PO Q6 ODETTE Last Admin: 04/21/17 15:25 Dose: 1,500 mg Furosemide (Lasix) 40 mg IVP BID ODETTE Heparin Sodium (Porcine) (Heparin) 5,000 units SC Q12 ODETTE PRN Reason: Protocol Last Admin: 04/21/17 10:26 Dose: 5,000 units Hydrocortisone Sodium Succinate (Solu-Cortef) 50 mg IV 0300,0900,1500,2100 ODETTE Last Admin: 04/21/17 15:25 Dose: 50 mg Vancomycin HCl 250 mg/ Sodium (Chloride) 100 mls @ 100 mls/hr IVPB Q24H ODETTE PRN Reason: Protocol Last Admin: 04/21/17 10:25 Dose: 100 mls/hr Tobramycin Sulfate 60 mg/ (Sodium Chloride) 101.5 mls @ 100 mls/hr IV Q24H ODETTE Last Admin: 04/20/17 18:01 Dose: 100 mls/hr Fluconazole (Diflucan Iv 100 Mg/50 Ml Ns) 50 mls @ 50 mls/hr IVPB DAILY ODETTE PRN Reason: Protocol Last Admin: 04/21/17 08:31 Dose: 50 mls/hr Clindamycin in NS (Clindamycin 300 Mg/50 Ml-Ns) 300 mg in 50 mls @ 50 mls/hr IVPB Q12 ODETTE PRN Reason: Protocol Last Admin: 04/21/17 08:30 Dose: 50 mls/hr Metolazone (Zaroxolyn) 5 mg PO DAILY ODETTE Last Admin: 04/21/17 08:30 Dose: 5 mg Pantoprazole Sodium (Protonix Susp) 40 mg NG DAILY ODETTE Last Admin: 04/21/17 08:30 Dose: 40 mg Potassium Chloride (Potassium Chloride Oral Soln) 40 meq PO QID ODETTE Stop: 04/21/17 22:01 Last Admin: 04/21/17 15:24 Dose: 40 meq Thiamine HCl (Vitamin B1 Tab) 200 mg PO Q12H ODETTE Last Admin: 04/21/17 08:30 Dose: 200 mg - Labs Labs: 04/21/17 04:20 04/21/17 04:20 PT 15.8 Seconds (9.8-13.1) H 04/14/17 04:20 INR 1.4 (0.9-1.2) H 04/14/17 04:20 APTT 33.0 Seconds (25.6-37.1) 04/14/17 04:20
[2017-04-21] MEDS: Tobramycin inj 60 MG in Sodium Chloride 0.9% 100 ML IV SCH (17:40)
[2017-04-21 19:02] LABS: CALCIUM 9.5 mg/dL (8.4-10.2)
[2017-04-22] MEDS: Acetaminophen 650mg/20.3ml solution UD PO PRN (00:49)
[2017-04-22 05:04] LABS: ABG ALLEN TEST YES; ABG MECHANICAL RATE 18; ARTERIAL BLOOD GAS HCO3 22.3 mmol/L (21-28); ARTERIAL BLOOD GAS MODE A/C; ARTERIAL BLOOD GAS O2 CAPACITY 10.8 mL/dL (16-24); ARTERIAL BLOOD GAS O2 CONTENT 10.7 ML/dL (15-23); ARTERIAL BLOOD GAS PH 7.34 (7.35-7.45); ARTERIAL BLOOD GAS PO2 98 mm/Hg (80-100); ATERIAL BLOOD GAS PEEP 5; CARBOXYHEMOGLOBIN 1.6 % (0.5-1.5); HHB 0.6 % (0.0-5.0); METHEMOGLOBIN 1.8 % (0.0-3.0)
[2017-04-22 05:42] LABS: HEMATOCRIT 23.8 % (34.0-47.0); MEAN CELL VOLUME 87.2 fl (81.0-99.0); MEAN CORPUSCULAR HEMOGLOBIN 27.5 pg (27.0-31.0); MEAN CORPUSCULAR HGB CONC 31.5 g/dL (33.0-37.0); RED CELL DISTRIBUTION WIDTH 18.1 % (11.5-14.5); WHITE BLOOD COUNT 17.1 K/uL (4.8-10.8)
[2017-04-22 05:52] LABS: CALCIUM 10.1 mg/dL (8.4-10.2); POTASSIUM 3.2 MMOL/L (3.6-5.0)
--- NOTE | 2017-04-22 08:09 | CP.CCUPN ---
CCU Subjective - Physician Review Subjective (Free Text): No overall change nor improvement in neuromental status from yesterdays description: Does not open eyes to pain. No overall distress, POD #3 Trach, breathing 18 on AC 18, 450ml TV, 40%, 5 PEEP with SPO2 100%. Placed on Clinitron bed for severe sin wound mgmt. Other vitals and I/O's reviewed. T max 101F. Fluid balance has reversed. Now positive balance 1.9L. ROS: Unobtainable from intubated Patient. No other pertinent negs or positives on 10+ system review. PMSFH: All Nursing and physician documentation reviewed to date; no new pertinent info noted relevant to current medical problems. CXR: essentially unchanged: trach tube position ok within tracheal air column, RLL infiltrate vs basilar atelectasis and elevated R hemidiaphragm persists. ( my interp). MAJOR PROBLEMS: 1. +Kleb pneumoniae (ESBL) and E. faecalis Bacteremia 2. Septic Shock 2 #1 3. Acute Renal Failure / ATN 4. Acute Resp Failure, 2 pneumonia 5. Thrombocytopenia / Coagulopathy PLAN: 1. Lactic acid levels normalized. Off Vasopressors. Procalcitonin levels not any better compared to 04/09/17 assessment. 2. Abx coverage changed to Clindamycin / Diflucan / Tobra/ Vanco. Changed Overton, otherwise unable to discontinue Overton due to severe dependent skin area breakdown. Remove R IJ HD Catheter. 3. Brief SBT on CPAP 5, PS 12, done with poor tolerance; resulted in RR up to 31. 4. Dense Atelectasis described in last CT Chest report on 04/11. Consider repeat study or Pulm eval for feasibility for FOB/ Bal. 5. Consider changing invasive lines. Needs PICC: precluded earlier in order to save veins for possible fpc or permanent HD access. Does not appear to need further or fpc HD. 6. PRBCs if repeat HGB below 7.5 mg/dl. 7. Supplement K. 8. Bedside PT for PROM. CCU Objective - Vital Signs / Intake & Output Vital Signs (Last 4 hours): Vital Signs Pulse Resp BP Pulse Ox 04/22/17 06:00 108 H 18 127/73 98 04/22/17 05:00 114 H 19 119/70 98 Intake and Output (Last 8hrs): Intake & Output 04/21/17 04/22/17 04/22/17 22:59 06:59 14:59 Intake Total 950 660 Output Total 500 Balance 450 660 Intake: Intake, Piggyback 300 Oral 140 Tube Feeding 350 420 Free Water Flush 300 100 Output: Urine 500 Urethral (Overton) 500 Other: # Bowel Movements 1 - Physical Exam Head: Positive for: Atraumatic, Normocephalic. Negative for: Tenderness, Contusion Pupils: Positive for: PERRL. Negative for: Sluggish, Non-Reactive Extroacular Muscles: Positive for: EOMI. Negative for: Gaze Palsy Conjunctiva: Positive for: Normal. Negative for: Injected, Icteric Mouth: Positive for: Dry (bloody) Neck: Negative for: JVD Respiratory/Chest: Positive for: Decreased Breath Sounds, Retracting, Rhonchi, Tachypneic. Negative for: Accessory Muscle Use, Wheezes Cardiovascular: Positive for: Tachycardic. Negative for: Murmurs, Rub Abdomen: Positive for: Distention, Normal Bowel Sounds. Negative for: Tenderness Upper Extremity: Positive for: Edema Lower Extremity: Positive for: Edema. Negative for: CALF TENDERNESS, NORMAL PULSES, Cyanosis Neurological: Positive for: Other (flaccid extremities) Skin: Positive for: Warm, Dry. Negative for: Rashes Psychiatric: Positive for: Alert - Medications Active Medications: Active Medications Generic Name Dose Route Start Last Admin Trade Name Freq PRN Reason Stop Dose Admin Albuterol/Ipratropium 3 ml 04/04/17 19:10 04/16/17 13:09 Duoneb 3 Mg/0.5 Mg (3 Ml) Ud INH 3 ml RQ4 PRN Administration Shortness of Breath Ascorbic Acid 1,500 mg 04/13/17 10:00 04/22/17 03:58 Vitamin C 500 Mg Tab PO 1,500 mg Q6 ODETTE Administration Furosemide 40 mg 04/21/17 17:00 04/21/17 17:40 Lasix IVP 40 mg BID ODETTE Administration Heparin Sodium (Porcine) 5,000 units 04/16/17 10:30 04/21/17 21:28 Heparin SC 5,000 units Q12 ODETTE Administration Protocol Hydrocortisone Sodium Succinate 50 mg 04/19/17 21:00 04/22/17 03:57 Solu-Cortef IV 50 mg 0300,0900,1500,2100 ODETTE Administration Vancomycin HCl 250 mg/ Sodium 100 mls @ 100 mls/hr 04/11/17 09:45 04/21/17 10 :25 Chloride IVPB 100 mls/hr Q24H ODETTE Administration Protocol Tobramycin Sulfate 60 mg/ 101.5 mls @ 100 mls/hr 04/11/17 18:30 04/21/17 17: 40 Sodium Chloride IV 100 mls/hr Q24H ODETTE Administration Fluconazole 50 mls @ 50 mls/hr 04/16/17 09:00 04/21/17 08:31 Diflucan Iv 100 Mg/50 Ml Ns IVPB 50 mls/hr DAILY ODETTE Administration Protocol Clindamycin in NS 300 mg in 50 mls @ 50 mls/hr 04/19/17 21:00 04/21/17 21:26 Clindamycin 300 Mg/50 Ml-Ns IVPB 50 mls/hr Q12 ODETTE Administration Protocol Metolazone 5 mg 04/13/17 10:45 04/21/17 08:30 Zaroxolyn PO 5 mg DAILY ODETTE Administration Pantoprazole Sodium 40 mg 04/14/17 10:30 04/21/17 08:30 Protonix Susp NG 40 mg DAILY ODETTE Administration Thiamine HCl 200 mg 04/13/17 21:00 04/21/17 21:30 Vitamin B1 Tab PO 200 mg Q12H ODETTE Administration - Patient Studies Lab Studies: Microbiology Studies 04/17/17 05:30 Blood Culture - Final Blood NO GROWTH AFTER 5 DAYS Gram Stain - Final TEST NOT PERFORMED 04/17/17 16:28 Blood Culture - Preliminary Blood-Thru Central Line NO GROWTH AFTER 4 DAYS 04/17/17 16:28 Blood Culture - Preliminary Blood-Venous NO GROWTH AFTER 4 DAYS Lab Studies 04/22/17 04/22/17 04/22/17 Range/Units 04:57 04:20 04:20 WBC 17.1 H (4.8-10.8) K/uL RBC 2.73 L (3.80-5.20) Mil/uL Hgb 7.5 L (12.0-16.0) g/dL Hct 23.8 L (34.0-47.0) % MCV 87.2 (81.0-99.0) fl MCH 27.5 (27.0-31.0) pg MCHC 31.5 L (33.0-37.0) g/dL RDW 18.1 H (11.5-14.5) % Plt Count 111 L (130-400) K/uL pCO2 41 (35-45) mm/Hg pO2 98 (80-100) mm/Hg HCO3 22.3 (21-28) mmol/L ABG pH 7.34 L (7.35-7.45) ABG Total CO2 23.4 (22-28) mmol/L ABG O2 Saturation 99.4 H (95-98) % ABG O2 Content 10.7 L (15-23) ML/dL ABG Base Excess -3.4 L (-2.0-3.0) mmol/L ABG Hemoglobin 7.8 L (11.7-17.4) g/dL ABG Carboxyhemoglobin 1.6 H (0.5-1.5) % POC ABG HHb (Measured) 0.6 (0.0-5.0) % ABG Methemoglobin 1.8 (0.0-3.0) % ABG O2 Capacity 10.8 L (16-24) mL/dL Domingo Test Yes A-a O2 Difference 136.0 mm/Hg Hgb O2 Saturation 96.0 (95.0-98.0) % Vent Mode A/c Mechanical Rate 18 FiO2 40.0 % Tidal Volume 450 PEEP 5 Sodium 147 (132-148) mmol/l Potassium 3.2 L (3.6-5.0) MMOL/L Chloride 113 H (98-107) mmol/L Carbon Dioxide 24 (22-30) mmol/L Anion Gap 13 (10-20) BUN 47 H (7-17) mg/dl Creatinine 1.5 H (0.7-1.2) mg/dl Est GFR ( Amer) 44 Est GFR (Non-Af Amer) 36 Random Glucose 126 H (65-105) mg/dL Calcium 10.1 (8.4-10.2) mg/dL Procalcitonin (0.19-0.49) NG/ML 04/21/17 04/21/17 Range/Units 18:15 04:20 WBC (4.8-10.8) K/uL RBC (3.80-5.20) Mil/uL Hgb (12.0-16.0) g/dL Hct (34.0-47.0) % MCV (81.0-99.0) fl MCH (27.0-31.0) pg MCHC (33.0-37.0) g/dL RDW (11.5-14.5) % Plt Count (130-400) K/uL pCO2 (35-45) mm/Hg pO2 (80-100) mm/Hg HCO3 (21-28) mmol/L ABG pH (7.35-7.45) ABG Total CO2 (22-28) mmol/L ABG O2 Saturation (95-98) % ABG O2 Content (15-23) ML/dL ABG Base Excess (-2.0-3.0) mmol/L ABG Hemoglobin (11.7-17.4) g/dL ABG Carboxyhemoglobin (0.5-1.5) % POC ABG HHb (Measured) (0.0-5.0) % ABG Methemoglobin (0.0-3.0) % ABG O2 Capacity (16-24) mL/dL Domingo Test A-a O2 Difference mm/Hg Hgb O2 Saturation (95.0-98.0) % Vent Mode Mechanical Rate FiO2 % Tidal Volume PEEP Sodium 146 (132-148) mmol/l Potassium 4.0 (3.6-5.0) MMOL/L Chloride 113 H (98-107) mmol/L Carbon Dioxide 23 (22-30) mmol/L Anion Gap 14 (10-20) BUN 41 H (7-17) mg/dl Creatinine 1.4 H (0.7-1.2) mg/dl Est GFR ( Amer) 48 Est GFR (Non-Af Amer) 39 Random Glucose 120 H (65-105) mg/dL Calcium 9.5 (8.4-10.2) mg/dL Procalcitonin 28.13 H (0.19-0.49) NG/ML Laboratory Results - last 24 hr 04/21/17 04/21/17 04/22/17 04:20 18:15 04:20 WBC 17.1 H RBC 2.73 L Hgb 7.5 L Hct 23.8 L MCV 87.2 MCH 27.5 MCHC 31.5 L RDW 18.1 H Plt Count 111 L pCO2 pO2 HCO3 ABG pH ABG Total CO2 ABG O2 Saturation ABG O2 Content ABG Base Excess ABG Hemoglobin ABG Carboxyhemoglobin POC ABG HHb (Measured) ABG Methemoglobin ABG O2 Capacity Domingo Test A-a O2 Difference Hgb O2 Saturation Vent Mode Mechanical Rate FiO2 Tidal Volume PEEP Sodium 146 Potassium 4.0 Chloride 113 H Carbon Dioxide 23 Anion Gap 14 BUN 41 H Creatinine 1.4 H Est GFR ( Amer) 48 Est GFR (Non-Af Amer) 39 Random Glucose 120 H Calcium 9.5 Procalcitonin 28.13 H 04/22/17 04/22/17 04:20 04:57 WBC RBC Hgb Hct MCV MCH MCHC RDW Plt Count pCO2 41 pO2 98 HCO3 22.3 ABG pH 7.34 L ABG Total CO2 23.4 ABG O2 Saturation 99.4 H ABG O2 Content 10.7 L ABG Base Excess -3.4 L ABG Hemoglobin 7.8 L ABG Carboxyhemoglobin 1.6 H POC ABG HHb (Measured) 0.6 ABG Methemoglobin 1.8 ABG O2 Capacity 10.8 L Domingo Test Yes A-a O2 Difference 136.0 Hgb O2 Saturation 96.0 Vent Mode A/c Mechanical Rate 18 FiO2 40.0 Tidal Volume 450 PEEP 5 Sodium 147 Potassium 3.2 L Chloride 113 H Carbon Dioxide 24 Anion Gap 13 BUN 47 H Creatinine 1.5 H Est GFR ( Amer) 44 Est GFR (Non-Af Amer) 36 Random Glucose 126 H Calcium 10.1 Procalcitonin Fingerstick Blood Sugar Results: 221 Review of Systems - Review of Systems Systems not reviewed;Unavailable: Intubated Critical Care Progress Note - Ventilator Checklist Head of Bed 30 Degrees: Yes Daily Sedation Vacation: Yes Daily Assessment of Readiness to Wean: Yes Daily Spontaneous Breathing Trial: Yes PUD Prophalyxis: Yes DVT Prophylaxis: Yes Oral Care with Chlorhexidine Gluconate {CHG}: Yes - Vent Settings MODE:: ASSIST CONTROL TIDAL VOLUME:: 450 RESP RATE:: 14 FIO2:: 40 PEEP:: 5 - Extremities/Vascular Does the Patient have a Central Venous Catheter?: Yes Insertion Site: Femoral Vein Does the Patient need a Central Venous Catheter?: Yes Does the Patient have a Overton Catheter?: Yes Does the Patient need a Overton Catheter?: Yes Catheter Insertion Criteria: Need for accurate measurement of output in critically ill patient - Prophylaxis GI Prophylaxis GI: PPI - Prophylaxis DVT Prophylaxis DVT: SCDs - Nutrition Nutrition: Nutrition Category Date Time Status NPO Diet [DIET] Diets 04/19/17 Breakfast Active
--- NOTE | 2017-04-22 09:46 | RAD ---
HISTORY: trach eval COMPARISON: No prior. FINDINGS: LUNGS: Low lung volumes, pulmonary vascular congestion. PLEURA: Stable elevation of the right hemidiaphragm. No significant pleural effusion identified, no pneumothorax apparent. CARDIOVASCULAR: Normal. OSSEOUS STRUCTURES: No significant abnormalities. VISUALIZED UPPER ABDOMEN: Normal. OTHER FINDINGS: Tracheostomy, unchanged. Enteric tube, unchanged. Right internal jugular access non tunneled hemodialysis catheter, unchanged. IMPRESSION: Stable pulmonary vascular congestion. No focal consolidation or pleural effusion.
[2017-04-22] MEDS ORDERED: Potassium Chloride 20 mEq/15 ml LIQ UD PO ONE (10:15)
[2017-04-22] MEDS: Clindamycin in NS 300 MG/50 ML BAG IVPB SCH ×2 (10:43→21:32)
[2017-04-22] MEDS: Fluconazole IV 100mg/50 ml NS 50 ML IVPB SCH (10:43)
[2017-04-22] MEDS: Vancomycin 250 MG in Sodium Chloride 0.9% 100 ML IVPB SCH (10:44)
[2017-04-22] MEDS: Pantoprazole 40 mg Susp UD NG SCH (10:45)
[2017-04-22] MEDS: metOLazone 5 MG TAB PO SCH (10:45)
[2017-04-22] MEDS ORDERED: Lidocaine 1% Inj (20ml) ONE (12:02)
--- NOTE | 2017-04-22 12:28 | PCM.SURG1 ---
Surgeon's Initial Post Op Note - Surgeon's Notes Surgeon: Jamil Fuentes MD Hand Riveter: NONE Type of Anesthesia: Local Pre-Operative Diagnosis: Poor venous access, ventilatory failure, improved renal failure Operative Findings: Right IJ non tunneled HD catheter. Patent right brachial vein. Small right basilic vein. Post-Operative Diagnosis: Poor venous access, ventilatory failure, improved renal failure Operation Performed: Dual lumen picc placement right brachial vein, 33 cm. Tip is in the SVC. Removal of right non-tunelled HD catheter. Specimen/Specimens Removed: HD catheter Estimated Blood Loss: EBL {In ML}: 3 Blood Products Given: N/A Drains Used: No Drains Post-Op Condition: Fair Date of Surgery/Procedure: 04/22/17 Time of Surgery/Procedure: 12:25
[2017-04-22] MEDS ORDERED: Absorbable Gelatin Sponge Size 100 TP ONE (13:29)
--- NOTE | 2017-04-22 14:09 | CP.PCM.PN ---
Subjective - Date & Time of Evaluation Date of Evaluation: 04/22/17 Time of Evaluation: 14:02 - Subjective Subjective: I D NOTE WBC:17 HAVE ORDERD VANCOMYCIN TROUGH FOLLOW/UP CULTURES ARE NEGATIVE NO CCHANGE IN ANTIBIOTIC MANAGEMENT WIIL D/C DIFLUCAN Objective - Vital Signs/Intake and Output Vital Signs (last 24 hours): Temp Pulse Resp BP Pulse Ox 100 F H 105 H 19 116/60 99 04/22/17 08:00 04/22/17 08:00 04/22/17 08:00 04/22/17 10:46 04/22/17 08:00 Intake and Output: 04/22/17 04/22/17 06:59 18:59 Intake Total 880 90 Balance 880 90 - Medications Medications: Current Medications Albuterol/Ipratropium (Duoneb 3 Mg/0.5 Mg (3 Ml) Ud) 3 ml INH RQ4 PRN PRN Reason: Shortness of Breath Last Admin: 04/16/17 13:09 Dose: 3 ml Ascorbic Acid (Vitamin C 500 Mg Tab) 1,500 mg PO Q6 ODETTE Last Admin: 04/22/17 10:45 Dose: 1,500 mg Furosemide (Lasix) 40 mg IVP BID ODETTE Last Admin: 04/22/17 10:46 Dose: 40 mg Gelatin (Gelfoam Size 100) 1 spg TP ONCE ONE Stop: 04/22/17 13:30 Heparin Sodium (Porcine) (Heparin) 5,000 units SC Q12 ODETTE PRN Reason: Protocol Last Admin: 04/22/17 10:44 Dose: 5,000 units Hydrocortisone Sodium Succinate (Solu-Cortef) 50 mg IV 0300,0900,1500,2100 ODETTE Last Admin: 04/22/17 10:44 Dose: 50 mg Vancomycin HCl 250 mg/ Sodium (Chloride) 100 mls @ 100 mls/hr IVPB Q24H ODETTE PRN Reason: Protocol Last Admin: 04/22/17 10:44 Dose: 100 mls/hr Tobramycin Sulfate 60 mg/ (Sodium Chloride) 101.5 mls @ 100 mls/hr IV Q24H ODETTE Last Admin: 04/21/17 17:40 Dose: 100 mls/hr Fluconazole (Diflucan Iv 100 Mg/50 Ml Ns) 50 mls @ 50 mls/hr IVPB DAILY ODETTE PRN Reason: Protocol Last Admin: 04/22/17 10:43 Dose: 50 mls/hr Clindamycin in NS (Clindamycin 300 Mg/50 Ml-Ns) 300 mg in 50 mls @ 50 mls/hr IVPB Q12 ODETTE PRN Reason: Protocol Last Admin: 04/22/17 10:43 Dose: 50 mls/hr Metolazone (Zaroxolyn) 5 mg PO DAILY ODETTE Last Admin: 04/22/17 10:45 Dose: 5 mg Pantoprazole Sodium (Protonix Susp) 40 mg NG DAILY ODETTE Last Admin: 04/22/17 10:45 Dose: 40 mg Thiamine HCl (Vitamin B1 Tab) 200 mg PO Q12H ODETTE Last Admin: 04/22/17 10:45 Dose: 200 mg - Labs Labs: 04/22/17 04:20 04/22/17 04:20 PT 15.8 Seconds (9.8-13.1) H 04/14/17 04:20 INR 1.4 (0.9-1.2) H 04/14/17 04:20 APTT 33.0 Seconds (25.6-37.1) 04/14/17 04:20
--- NOTE | 2017-04-22 16:32 | CP.PCM.PN ---
Subjective - Date & Time of Evaluation Date of Evaluation: 04/22/17 Time of Evaluation: 16:31 - Subjective Subjective: Follow up Nephrology Consultation Note Assessment: critical Non-oliguric Acute Kidney Injury (N17.9) likely due to acute tubular necrosis due to septic shock, required renal replacement therapy Acute respi failure Hypomagnesemia, Hypokalemia, Hypernatremia Sepsis with shock Obesity hx of ovarian CA s/p RODRIGO/BSO, DVT s/p IVC filter Anemia Plan No acute need for renal replacement therapy at present. fluid status improved, making more urine. creatinine stable continue with IV lasix 40 mg bid. pt also on metolazone supplement electrolytes as KDUR and Magnesium. continue with free water 250 mL q6 hr Monitor Input/Output, daily weights and renal function with basic metabolic panel PRBC as needed for anemia Dose meds/antibiotics for improved GFR. Avoid fleets enema/magnesium based laxatives. Avoid nephrotoxins/NSAIDs/ iodinated contrast (unless needed emergently) Glycemic control Further work up for as per primary team Thanks for allowing me to participate in care of your patient. Will follow patient with you. Please call if any Qs. d/w ICU team Dr Reji Nunez Office: [phone] Subjective: Noted events overnight. Patients s/p trach unable to obtain hx from patient. off pressors. continue to make adequate amount of urine. dialysis not needed since weekend Physical Examination: General Appearance: Comfortable, in no acute respiratory distress, ill appearing , s/p trach Vitals reviewed and noted as below Lungs: Normal respiratory rate/effort. Breath sounds bilateral equal Heart: Normal rate. s1s2 normal. No rub or gallop. Extremities: no edema. Neurological: Patient is awake but not communicative at present Skin: Warm and dry. Normal turgor. No rash. Palpitation: Normal elasticity for age Abdomen: Abdomen is soft. Bowel sounds +. There is no abdominal tenderness, no guarding/rigidity or organomegaly : kidney or bladder not palpable Access: none now Head; Atraumatic, normocephalic EYES: Pupils are equal, round and reactive to light accommodation. Eye muscles and extraocular movement intact. Sclera is anicteric. Neck; supple no lymphadenopathy, no thyromegaly or bruit Psych: Unable MSK: no joint tenderness or swelling. Digits and nails normal, no deformity Labs/imaging reviewed. Past medical history, past surgical history, family history, social history, allergy reviewed family hx No hx of CKD Objective - Vital Signs/Intake and Output Vital Signs (last 24 hours): Temp Pulse Resp BP Pulse Ox 97.9 F 110 H 19 128/78 96 04/22/17 16:00 04/22/17 16:00 04/22/17 16:00 04/22/17 16:00 04/22/17 16:00 Intake and Output: 04/22/17 04/22/17 06:59 18:59 Intake Total 880 855 Output Total 500 Balance 880 355 - Medications Medications: Current Medications Albuterol/Ipratropium (Duoneb 3 Mg/0.5 Mg (3 Ml) Ud) 3 ml INH RQ4 PRN PRN Reason: Shortness of Breath Last Admin: 04/16/17 13:09 Dose: 3 ml Ascorbic Acid (Vitamin C 500 Mg Tab) 1,500 mg PO Q6 ODETTE Last Admin: 04/22/17 10:45 Dose: 1,500 mg Furosemide (Lasix) 40 mg IVP BID ODETTE Last Admin: 04/22/17 10:46 Dose: 40 mg Heparin Sodium (Porcine) (Heparin) 5,000 units SC Q12 ODETTE PRN Reason: Protocol Last Admin: 04/22/17 10:44 Dose: 5,000 units Hydrocortisone Sodium Succinate (Solu-Cortef) 50 mg IV 0300,0900,1500,2100 ODETTE Last Admin: 04/22/17 10:44 Dose: 50 mg Vancomycin HCl 250 mg/ Sodium (Chloride) 100 mls @ 100 mls/hr IVPB Q24H ODETTE PRN Reason: Protocol Last Admin: 04/22/17 10:44 Dose: 100 mls/hr Tobramycin Sulfate 60 mg/ (Sodium Chloride) 101.5 mls @ 100 mls/hr IV Q24H ODETTE Last Admin: 04/21/17 17:40 Dose: 100 mls/hr Clindamycin in NS (Clindamycin 300 Mg/50 Ml-Ns) 300 mg in 50 mls @ 50 mls/hr IVPB Q12 ODETTE PRN Reason: Protocol Last Admin: 04/22/17 10:43 Dose: 50 mls/hr Metolazone (Zaroxolyn) 5 mg PO DAILY ODETTE Last Admin: 04/22/17 10:45 Dose: 5 mg Pantoprazole Sodium (Protonix Susp) 40 mg NG DAILY [facility] Last Admin: 04/22/17 10:45 Dose: 40 mg Thiamine HCl (Vitamin B1 Tab) 200 mg PO Q12H [facility] Last Admin: 04/22/17 10:45 Dose: 200 mg - Labs Labs: 04/22/17 04:20 04/22/17 04:20 PT 15.8 Seconds (9.8-13.1) H 04/14/17 04:20 INR 1.4 (0.9-1.2) H 04/14/17 04:20 APTT 33.0 Seconds (25.6-37.1) 04/14/17 04:20
--- NOTE | 2017-04-22 17:33 | CP.PCM.PN ---
Subjective - Date & Time of Evaluation Date of Evaluation: 04/22/17 Time of Evaluation: 14:45 - Subjective Subjective: F/U Respiratory Failure. Eyes open, at times response to verbal stimuli, as per family with eyes and head movements. Objective - Vital Signs/Intake and Output Vital Signs (last 24 hours): Temp Pulse Resp BP Pulse Ox 97.9 F 110 H 19 128/78 96 04/22/17 16:00 04/22/17 16:00 04/22/17 16:00 04/22/17 16:00 04/22/17 16:00 Intake and Output: 04/22/17 04/22/17 06:59 18:59 Intake Total 880 855 Output Total 500 Balance 880 355 - Medications Medications: Current Medications Albuterol/Ipratropium (Duoneb 3 Mg/0.5 Mg (3 Ml) Ud) 3 ml INH RQ4 PRN PRN Reason: Shortness of Breath Last Admin: 04/16/17 13:09 Dose: 3 ml Ascorbic Acid (Vitamin C 500 Mg Tab) 1,500 mg PO Q6 ODETTE Last Admin: 04/22/17 10:45 Dose: 1,500 mg Furosemide (Lasix) 40 mg IVP BID ODETTE Last Admin: 04/22/17 10:46 Dose: 40 mg Heparin Sodium (Porcine) (Heparin) 5,000 units SC Q12 ODETTE PRN Reason: Protocol Last Admin: 04/22/17 10:44 Dose: 5,000 units Hydrocortisone Sodium Succinate (Solu-Cortef) 50 mg IV 0300,0900,1500,2100 ODETTE Last Admin: 04/22/17 10:44 Dose: 50 mg Vancomycin HCl 250 mg/ Sodium (Chloride) 100 mls @ 100 mls/hr IVPB Q24H ODETTE PRN Reason: Protocol Last Admin: 04/22/17 10:44 Dose: 100 mls/hr Tobramycin Sulfate 60 mg/ (Sodium Chloride) 101.5 mls @ 100 mls/hr IV Q24H ODETTE Last Admin: 04/21/17 17:40 Dose: 100 mls/hr Clindamycin in NS (Clindamycin 300 Mg/50 Ml-Ns) 300 mg in 50 mls @ 50 mls/hr IVPB Q12 ODETTE PRN Reason: Protocol Last Admin: 04/22/17 10:43 Dose: 50 mls/hr Metolazone (Zaroxolyn) 5 mg PO DAILY [facility] Last Admin: 04/22/17 10:45 Dose: 5 mg Pantoprazole Sodium (Protonix Susp) 40 mg NG DAILY [facility] Last Admin: 04/22/17 10:45 Dose: 40 mg Thiamine HCl (Vitamin B1 Tab) 200 mg PO Q12H [facility] Last Admin: 04/22/17 10:45 Dose: 200 mg - Labs Labs: 04/22/17 04:20 04/22/17 04:20 PT 15.8 Seconds (9.8-13.1) H 04/14/17 04:20 INR 1.4 (0.9-1.2) H 04/14/17 04:20 APTT 33.0 Seconds (25.6-37.1) 04/14/17 04:20 - Constitutional Appears: Chronically Ill - Eye Exam Eye Exam: PERRL - ENT Exam ENT Exam: Normal Exam - Neck Exam Additional comments: Tracheostomy - Respiratory Exam Respiratory Exam: Decreased Breath Sounds (at bases), Rhonchi (scattered) - Cardiovascular Exam Cardiovascular Exam: REGULAR RHYTHM - GI/Abdominal Exam GI & Abdominal Exam: Soft, Normal Bowel Sounds - Extremities Exam Extremities Exam: Pedal Edema Additional comments: L heel and R lateral ankle DTI, MSAD posterior tigh. - Back Exam Additional comments: MSAD buttock, sacrum, R flank. - Neurological Exam Additional comments: no response to verbal or tactile stimuli at the moment of examination. - Skin Skin Exam: Warm Assessment and Plan (1) Acute respiratory failure Status: Acute (2) Status post tracheostomy Status: Acute (3) Shock Status: Deleted (4) Pneumonia Status: Acute (5) Acute renal failure (ARF) Status: Acute (6) Anemia Status: Acute (7) Hematuria, gross Status: Deleted (8) Thrombocytopenia Status: Resolved (9) History of pulmonary embolus (PE) Status: Acute (10) Pancolitis Status: Deleted - Assessment and Plan (Free Text) Plan: Had R arm PICC line insertion , continue Ventilatory support , continue Clinda , Vanco , Tobra , DC Diflucan, continue Lasix , Zaroxolyn , Hydrocortisone , Duoneb , treatment of back and buttock lesions, monitor Hgb in am may need PRBC transfusion.
[2017-04-22] MEDS: Tobramycin inj 60 MG in Sodium Chloride 0.9% 100 ML IV SCH (21:28)
[2017-04-23 05:15] LABS: ABG ALLEN TEST YES; ABG MECHANICAL RATE 18; ARTERIAL BLOOD GAS MODE A/C; ARTERIAL BLOOD GAS O2 CONTENT 9.9 ML/dL (15-23); ARTERIAL BLOOD GAS PH 7.39 (7.35-7.45); ARTERIAL BLOOD GAS PO2 98 mm/Hg (80-100); ARTERIAL BLOOD HGB O2 SAT 96.3 % (95.0-98.0); ATERIAL BLOOD GAS PEEP 5; CARBOXYHEMOGLOBIN 1.6 % (0.5-1.5); HHB 0.6 % (0.0-5.0); METHEMOGLOBIN 1.5 % (0.0-3.0)
[2017-04-23 06:46] LABS: BASO % 0.2 % (0.0-2.0); EOS % 0.1 % (0.0-4.0); HEMATOCRIT 21.1 % (34.0-47.0); LYMPH # 0.4 K/uL (1.0-4.3); LYMPH % 2.8 % (20.0-40.0); MEAN CELL VOLUME 85.7 fl (81.0-99.0); MEAN CORPUSCULAR HEMOGLOBIN 28.1 pg (27.0-31.0); MEAN CORPUSCULAR HGB CONC 32.8 g/dL (33.0-37.0); MEAN PLATELET VOLUME 9.2 fl (7.2-11.7); MONO # 0.8 K/uL (0.0-0.8); MONO % 5.1 % (0.0-10.0); NEUT # 13.7 K/uL (1.8-7.0); NEUT % 91.8 % (50.0-75.0); NRBC % 0.2 % (0.0-0.0); PLATELET COUNT 134 K/uL (130-400); RED CELL DISTRIBUTION WIDTH 18.3 % (11.5-14.5); WHITE BLOOD COUNT 14.9 K/uL (4.8-10.8)
[2017-04-23 07:07] LABS: POTASSIUM 2.5 MMOL/L (3.6-5.0)
[2017-04-23] MEDS ORDERED: Magnesium Sulfate 2 gm/50 ml 2 GM/50 ML BAG IVPB ONE (08:20)
--- NOTE | 2017-04-23 08:49 | CP.CCUPN ---
CCU Subjective - Physician Review Events Since Last Encounter (Free Text): 04/23/17 08:47 Patient on ventilator through tracheostomy, on PRVC TV 450, RR 18, FIO2 40%, no pressors, no fever, events reviewed CCU Objective - Vital Signs / Intake & Output Vital Signs (Last 4 hours): Vital Signs Pulse Resp BP Pulse Ox 04/23/17 06:00 122 H 18 125/77 100 Intake and Output (Last 8hrs): Intake & Output 04/22/17 04/23/17 04/23/17 22:59 06:59 14:59 Intake Total 780 560 Output Total 550 300 Balance 230 260 Intake: IV 200 Intake, Piggyback 50 Tube Feeding 270 360 Free Water Flush 260 200 Output: Urine 550 300 Urethral (Overton) 550 300 Other: # Voids Urethral (Overton) 175 # Bowel Movements 1 1 - Physical Exam Head: Positive for: Atraumatic, Normocephalic. Negative for: Tenderness, Contusion Pupils: Positive for: PERRL. Negative for: Sluggish, Non-Reactive Extroacular Muscles: Negative for: Gaze Palsy Conjunctiva: Positive for: Normal. Negative for: Injected, Icteric Mouth: Positive for: Dry (bloody) Neck: Negative for: JVD Respiratory/Chest: Positive for: Decreased Breath Sounds, Rhonchi. Negative for : Accessory Muscle Use, Wheezes Cardiovascular: Positive for: Tachycardic. Negative for: Murmurs, Rub Abdomen: Positive for: Distention, Normal Bowel Sounds. Negative for: Tenderness Upper Extremity: Positive for: Edema Lower Extremity: Positive for: Edema. Negative for: CALF TENDERNESS, NORMAL PULSES, Cyanosis Neurological: Positive for: Other (on ventilator) Skin: Positive for: Warm, Dry. Negative for: Rashes - Medications Active Medications: Active Medications Generic Name Dose Route Start Last Admin Trade Name Freq PRN Reason Stop Dose Admin Albuterol/Ipratropium 3 ml 04/04/17 19:10 04/16/17 13:09 Duoneb 3 Mg/0.5 Mg (3 Ml) Ud INH 3 ml RQ4 PRN Administration Shortness of Breath Ascorbic Acid 1,500 mg 04/13/17 10:00 04/23/17 04:17 Vitamin C 500 Mg Tab PO 1,500 mg Q6 ODETTE Administration Furosemide 40 mg 04/21/17 17:00 04/22/17 17:40 Lasix IVP 40 mg BID ODETTE Administration Heparin Sodium (Porcine) 5,000 units 04/16/17 10:30 04/22/17 21:28 Heparin SC 5,000 units Q12 ODETTE Administration Protocol Hydrocortisone Sodium Succinate 50 mg 04/19/17 21:00 04/23/17 04:17 Solu-Cortef IV 50 mg 0300,0900,1500,2100 ODETTE Administration Vancomycin HCl 250 mg/ Sodium 100 mls @ 100 mls/hr 04/11/17 09:45 04/22/17 10 :44 Chloride IVPB 100 mls/hr Q24H ODETTE Administration Protocol Tobramycin Sulfate 60 mg/ 101.5 mls @ 100 mls/hr 04/11/17 18:30 04/22/17 21: 28 Sodium Chloride IV 100 mls/hr Q24H ODETTE Administration Clindamycin in NS 300 mg in 50 mls @ 50 mls/hr 04/19/17 21:00 04/22/17 21:32 Clindamycin 300 Mg/50 Ml-Ns IVPB 50 mls/hr Q12 ODETTE Administration Protocol Potassium Chloride 50 mls @ 50 mls/hr 04/23/17 08:00 Potassium Cl 10meq/50ml Sterile Water IVPB 04/23/17 11:59 Q1 ODETTE Magnesium Sulfate 2 gm/ Sodium 104 mls @ 104 mls/hr 04/23/17 08:20 Chloride IVPB 04/23/17 09:19 ONCE ONE 2 GM/HR Potassium Chloride 100 mls @ 100 mls/hr 04/23/17 09:00 Potassium Chloride 10 Meq/100 Ml IVPB 04/23/17 12:59 Q1 ODETTE Metolazone 5 mg 04/13/17 10:45 04/22/17 10:45 Zaroxolyn PO 5 mg DAILY ODETTE Administration Pantoprazole Sodium 40 mg 04/14/17 10:30 04/22/17 10:45 Protonix Susp NG 40 mg DAILY ODETTE Administration Thiamine HCl 200 mg 04/13/17 21:00 04/22/17 21:30 Vitamin B1 Tab PO 200 mg Q12H ODETTE Administration - Patient Studies Lab Studies: Microbiology Studies 04/17/17 16:28 Blood Culture - Final Blood-Thru Central Line NO GROWTH AFTER 5 DAYS Gram Stain - Final TEST NOT PERFORMED 11/19/17 16:28 Blood Culture - Final Blood-Venous NO GROWTH AFTER 5 DAYS Gram Stain - Final TEST NOT PERFORMED 04/17/17 05:30 Blood Culture - Final Blood NO GROWTH AFTER 5 DAYS Gram Stain - Final TEST NOT PERFORMED Lab Studies 04/23/17 04/23/17 04/23/17 Range/Units 05:30 05:30 04:00 WBC 14.9 H (4.8-10.8) K/uL RBC 2.47 L (3.80-5.20) Mil/uL Hgb 6.9 L (12.0-16.0) g/dL Hct 21.1 L (34.0-47.0) % MCV 85.7 (81.0-99.0) fl MCH 28.1 (27.0-31.0) pg MCHC 32.8 L (33.0-37.0) g/dL RDW 18.3 H (11.5-14.5) % Plt Count 134 (130-400) K/uL MPV 9.2 (7.2-11.7) fl Neut % (Auto) 91.8 H (50.0-75.0) % Lymph % (Auto) 2.8 L (20.0-40.0) % Titus % (Auto) 5.1 (0.0-10.0) % Eos % (Auto) 0.1 (0.0-4.0) % Baso % (Auto) 0.2 (0.0-2.0) % Neut # 13.7 H (1.8-7.0) K/uL Lymph # 0.4 L (1.0-4.3) K/uL Titus # 0.8 (0.0-0.8) K/uL Eos # 0.0 (0.0-0.7) K/uL Baso # 0.0 (0.0-0.2) K/uL pCO2 39 (35-45) mm/Hg pO2 98 (80-100) mm/Hg HCO3 24.0 (21-28) mmol/L ABG pH 7.39 (7.35-7.45) ABG Total CO2 24.8 (22-28) mmol/L ABG O2 Saturation 99.4 H (95-98) % ABG O2 Content 9.9 L (15-23) ML/dL ABG Base Excess -1.2 (-2.0-3.0) mmol/L ABG Hemoglobin 7.2 L (11.7-17.4) g/dL ABG Carboxyhemoglobin 1.6 H (0.5-1.5) % POC ABG HHb (Measured) 0.6 (0.0-5.0) % ABG Methemoglobin 1.5 (0.0-3.0) % ABG O2 Capacity 10.0 L (16-24) mL/dL Domingo Test Yes A-a O2 Difference 138.0 mm/Hg Hgb O2 Saturation 96.3 (95.0-98.0) % Vent Mode A/c Mechanical Rate 18 FiO2 40.0 % Tidal Volume 450 PEEP 5 Crit Value Called To Dr neda pinedo Crit Value Called By Yobani Crit Value Read Back Y Blood Gas Notified Time 514 Sodium 149 H (132-148) mmol/l Potassium 2.5 L* D (3.6-5.0) MMOL/L Chloride 114 H (98-107) mmol/L Carbon Dioxide 25 (22-30) mmol/L Anion Gap 13 (10-20) BUN 57 H (7-17) mg/dl Creatinine 1.7 H (0.7-1.2) mg/dl Est GFR ( Amer) 38 Est GFR (Non-Af Amer) 32 Random Glucose 109 H (65-105) mg/dL Calcium 10.0 (8.4-10.2) mg/dL Laboratory Results - last 24 hr 04/23/17 04/23/17 04/23/17 04:00 05:30 05:30 WBC 14.9 H RBC 2.47 L Hgb 6.9 L Hct 21.1 L MCV 85.7 MCH 28.1 MCHC 32.8 L RDW 18.3 H Plt Count 134 MPV 9.2 Neut % (Auto) 91.8 H Lymph % (Auto) 2.8 L Titus % (Auto) 5.1 Eos % (Auto) 0.1 Baso % (Auto) 0.2 Neut # 13.7 H Lymph # 0.4 L Titus # 0.8 Eos # 0.0 Baso # 0.0 pCO2 39 pO2 98 HCO3 24.0 ABG pH 7.39 ABG Total CO2 24.8 ABG O2 Saturation 99.4 H ABG O2 Content 9.9 L ABG Base Excess -1.2 ABG Hemoglobin 7.2 L ABG Carboxyhemoglobin 1.6 H POC ABG HHb (Measured) 0.6 ABG Methemoglobin 1.5 ABG O2 Capacity 10.0 L Domingo Test Yes A-a O2 Difference 138.0 Hgb O2 Saturation 96.3 Vent Mode A/c Mechanical Rate 18 FiO2 40.0 Tidal Volume 450 PEEP 5 Crit Value Called To Dr neda pinedo Crit Value Called By Yobani Crit Value Read Back Y Blood Gas Notified Time 514 Sodium 149 H Potassium 2.5 L* D Chloride 114 H Carbon Dioxide 25 Anion Gap 13 BUN 57 H Creatinine 1.7 H Est GFR ( Amer) 38 Est GFR (Non-Af Amer) 32 Random Glucose 109 H Calcium 10.0 Fingerstick Blood Sugar Results: 221 Critical Care Progress Note - Nutrition Nutrition: Nutrition Category Date Time Status NPO Diet [DIET] Diets 04/19/17 Breakfast Active Assessment/Plan - Assessment and Plan (Free Text) Assessment: A/P Respiratory failure, pneumonia, sepsis, cervical ca, gi bleeding, renal failure , PE s/p IVC filter, thrombocytopenia, anemia - ventilatory support - Weaning as tolerated - Pulmonary toilets - Continue meds - Transfusion as needed - Poor prognosis critical care 40 min
[2017-04-23] MEDS: Clindamycin in NS 300 MG/50 ML BAG IVPB SCH ×2 (08:59→20:36)
[2017-04-23] MEDS ORDERED: Potassium CL 10mEq/100ml 100 ML IVPB SCH (09:00)
[2017-04-23] MEDS: Pantoprazole 40 mg Susp UD NG SCH (09:01)
[2017-04-23] MEDS: Vancomycin 250 MG in Sodium Chloride 0.9% 100 ML IVPB SCH (09:02)
[2017-04-23] MEDS: metOLazone 5 MG TAB PO SCH (09:03)
--- NOTE | 2017-04-23 09:45 | CP.PCM.PN ---
Subjective - Date & Time of Evaluation Date of Evaluation: 04/23/17 Time of Evaluation: 09:45 - Subjective Subjective: patient seen examined bedside for sepsis. +trach: 18 40% 450 peep 5. somnolent, arousable. continuous diarrhea. s/p PICC yesterday. Pt did not tolerate weaning yesterday. anemia hct 21.1, 1 unit PRBC transfused today. K 2.5, repleted. Mg repleted. Na 149. HD stable, NAD. Objective - Vital Signs/Intake and Output Vital Signs (last 24 hours): Temp Pulse Resp BP Pulse Ox 99.6 F 103 H 18 123/71 100 04/23/17 08:00 04/23/17 08:00 04/23/17 08:00 04/23/17 09:00 04/23/17 08:00 Intake and Output: 04/23/17 04/23/17 06:59 18:59 Intake Total 1150 Output Total 600 Balance 550 - Medications Medications: Current Medications Albuterol/Ipratropium (Duoneb 3 Mg/0.5 Mg (3 Ml) Ud) 3 ml INH RQ4 PRN PRN Reason: Shortness of Breath Last Admin: 04/16/17 13:09 Dose: 3 ml Ascorbic Acid (Vitamin C 500 Mg Tab) 1,500 mg PO Q6 ODETTE Last Admin: 04/23/17 09:03 Dose: 1,500 mg Furosemide (Lasix) 40 mg IVP BID ODETTE Last Admin: 04/23/17 09:00 Dose: 40 mg Heparin Sodium (Porcine) (Heparin) 5,000 units SC Q12 ODETTE PRN Reason: Protocol Last Admin: 04/23/17 09:00 Dose: Not Given Hydrocortisone Sodium Succinate (Solu-Cortef) 50 mg IV 0300,0900,1500,2100 [facility] Last Admin: 04/23/17 09:01 Dose: 50 mg Vancomycin HCl 250 mg/ Sodium (Chloride) 100 mls @ 100 mls/hr IVPB Q24H ODETTE PRN Reason: Protocol Last Admin: 04/23/17 09:02 Dose: 100 mls/hr Tobramycin Sulfate 60 mg/ (Sodium Chloride) 101.5 mls @ 100 mls/hr IV Q24H ODETTE Last Admin: 04/22/17 21:28 Dose: 100 mls/hr Clindamycin in NS (Clindamycin 300 Mg/50 Ml-Ns) 300 mg in 50 mls @ 50 mls/hr IVPB Q12 ODETTE PRN Reason: Protocol Last Admin: 04/23/17 08:59 Dose: 50 mls/hr Potassium Chloride (Potassium Cl 10meq/50ml Sterile Water) 50 mls @ 50 mls/hr IVPB Q1 ODETTE Stop: 04/23/17 11:59 Metolazone (Zaroxolyn) 5 mg PO DAILY [facility]TE Last Admin: 04/23/17 09:03 Dose: 5 mg Pantoprazole Sodium (Protonix Susp) 40 mg NG DAILY [facility]TE Last Admin: 04/23/17 09:01 Dose: 40 mg Thiamine HCl (Vitamin B1 Tab) 200 mg PO Q12H [facility]ETTE Last Admin: 04/23/17 09:03 Dose: 200 mg - Labs Labs: 04/23/17 05:30 04/23/17 05:30 PT 15.8 Seconds (9.8-13.1) H 04/14/17 04:20 INR 1.4 (0.9-1.2) H 04/14/17 04:20 APTT 33.0 Seconds (25.6-37.1) 04/14/17 04:20 - Constitutional Appears: Non-toxic, No Acute Distress - Head Exam Head Exam: ATRAUMATIC, NORMOCEPHALIC - Eye Exam Eye Exam: EOMI, Normal appearance, PERRL - ENT Exam ENT Exam: Mucous Membranes Moist, Normal Exam - Neck Exam Neck Exam: Normal Inspection. absent: Lymphadenopathy - Respiratory Exam Respiratory Exam: Clear to Ausculation Bilateral, NORMAL BREATHING PATTERN - Cardiovascular Exam Cardiovascular Exam: REGULAR RHYTHM, +S1, +S2 ( ) - GI/Abdominal Exam GI & Abdominal Exam: Soft, Normal Bowel Sounds. absent: Tenderness, Mass - Extremities Exam Extremities Exam: Normal Capillary Refill, Normal Inspection - Back Exam Back Exam: NORMAL INSPECTION. absent: CVA tenderness (L), CVA tenderness (R) - Neurological Exam Neurological Exam: Altered, Reflexes Normal - Skin Skin Exam: Dry, Warm Assessment and Plan - Assessment and Plan (Free Text) Plan: 51 F PMHx ovarian CA s/p RODRIGO/BSO (in remission since 2014), SB enteritis s/p ex- lap with WILNER (01/04/17) which was c/b VAP, ascites with drain placement and post -op PE (IVC filter, now on Xarelto), right hydronephrosis with ureteral stent placement (now removed). p/w acute renal failure with severe metabolic acidosis , oozing blood from oropharynx and possible traumatic castillo placement. Dialysis started (04/04). Presentation: Increased weakness, AMS 04/03/17 without improvement. Anemia 8.6, gross hematuria, ARF and severe Metabolic Acidosis. In ER, Pt was altered, tachypneic and BP drop to 59/36, Pt was intubated, initiated on pressors, and admitted to ICU with Respiratory Failure. 04/22/17 s/p PICC R Brachial vein, R IJ REMOVED. Septic Shock 2/2 Kleb pneumonia (ESBL) and E Faecalis Bacteremia Severe Sepsis + ESBL Kelbsiella, E. Faecalis (blood), pseudomonas (trach asp), yeast (urine) Abx coverage now Clindamycin, Diflucan, Tobra, Vanco Continue steroids, Vitamin C and thiamine 04/22/17 R PICC placed and R IJ removed. Acute Respiratory Failure 2/2 pneumonia +TRACH POD #4 continues on AC 18 450 5 40% Acute Renal Failure vs. ATN? s/p dialysis x2 Nephrology consult: Dr. Nunez appreciated and followed Discussed today, will adjust Lasix to once a day, Metolazone D/C and add 250cc FREE WATER FLUSH QID. Lasix 40 BID changed to once a day Metolazone was stopped Anemia Thrombocytopenia Coagulopathy H/H 6.9/21.1 1 unit PRBC transfused today Diarrhea Hypokalemia Hypernatremia Hyperchloremia volume loss, profuse diarrhea repleted and checked 2.5 today Mg repleted as well repeat level tomorrow NPO, Vital@70. GI - Dr. Nixon DVT proph - SCD's, heparin sq GI proph - protonix po castillo for strict I/O's during acute illness Code status - full code
[2017-04-23 10:42] LABS: METAMYELOCYTE 1 % (0-0); MYELOCYTE 1 % (0-0); NEUTROPHIL 86 % (42-75); TOTAL CELLS COUNTED 100
[2017-04-23 10:44] LABS: LARGE PLATELETS PRESENT
[2017-04-23] MEDS: Potassium CL 10 MEQ/50 ML 50 ML IVPB SCH ×4 (12:14→15:41)
--- NOTE | 2017-04-23 17:28 | CP.PCM.PN ---
Subjective - Date & Time of Evaluation Date of Evaluation: 04/23/17 Time of Evaluation: 17:27 - Subjective Subjective: Follow up Nephrology Consultation Note Assessment: critical Non-oliguric Acute Kidney Injury (N17.9) likely due to acute tubular necrosis due to septic shock, required renal replacement therapy Acute respi failure Hypomagnesemia, Hypokalemia, Hypernatremia Sepsis with shock Obesity hx of ovarian CA s/p RODRIGO/BSO, DVT s/p IVC filter Anemia Plan No acute need for renal replacement therapy at present. fluid status improved, making more urine. creatinine stable decreased IV lasix 40 mg to daily and d/c metolazone supplement electrolytes as KDUR. continue with free water 250 mL q6 hr Monitor Input/Output, daily weights and renal function with basic metabolic panel PRBC as needed for anemia Dose meds/antibiotics for improved GFR. Avoid fleets enema/magnesium based laxatives. Avoid nephrotoxins/NSAIDs/ iodinated contrast (unless needed emergently) Glycemic control Further work up for as per primary team Thanks for allowing me to participate in care of your patient. Will follow patient with you. Please call if any Qs. d/w ICU team Dr Reji Nunez Office: [phone] Subjective: Noted events overnight. Patients s/p trach unable to obtain hx from patient. off pressors. continue to make adequate amount of urine. dialysis not needed since weekend diarrhoea ++ Physical Examination: General Appearance: Comfortable, in no acute respiratory distress, ill appearing , s/p trach Vitals reviewed and noted as below Lungs: Normal respiratory rate/effort. Breath sounds bilateral equal Heart: Normal rate. s1s2 normal. No rub or gallop. Extremities: no edema. Neurological: Patient is awake but not communicative at present Skin: Warm and dry. Normal turgor. No rash. Palpitation: Normal elasticity for age Abdomen: Abdomen is soft. Bowel sounds +. There is no abdominal tenderness, no guarding/rigidity or organomegaly : kidney or bladder not palpable Access: none now Head; Atraumatic, normocephalic EYES: Pupils are equal, round and reactive to light accommodation. Eye muscles and extraocular movement intact. Sclera is anicteric. Neck; supple no lymphadenopathy, no thyromegaly or bruit Psych: Unable MSK: no joint tenderness or swelling. Digits and nails normal, no deformity Labs/imaging reviewed. Past medical history, past surgical history, family history, social history, allergy reviewed family hx No hx of CKD Objective - Vital Signs/Intake and Output Vital Signs (last 24 hours): Temp Pulse Resp BP Pulse Ox 99.4 F 93 H 18 107/55 L 96 04/23/17 16:00 04/23/17 16:00 04/23/17 16:00 04/23/17 16:00 04/23/17 16:00 Intake and Output: 04/23/17 04/23/17 06:59 18:59 Intake Total 1150 631 Output Total 600 Balance 550 631 - Medications Medications: Current Medications Ascorbic Acid (Vitamin C 500 Mg Tab) 1,500 mg PO Q6 ODETTE Last Admin: 04/23/17 09:03 Dose: 1,500 mg Furosemide (Lasix) 40 mg IVP DAILY [facility] Heparin Sodium (Porcine) (Heparin) 5,000 units SC Q12 ODETTE PRN Reason: Protocol Last Admin: 04/23/17 09:00 Dose: Not Given Hydrocortisone Sodium Succinate (Solu-Cortef) 50 mg IV 0300,0900,1500,2100 [facility] Last Admin: 04/23/17 09:01 Dose: 50 mg Vancomycin HCl 250 mg/ Sodium (Chloride) 100 mls @ 100 mls/hr IVPB Q24H ODETTE PRN Reason: Protocol Last Admin: 04/23/17 09:02 Dose: 100 mls/hr Tobramycin Sulfate 60 mg/ (Sodium Chloride) 101.5 mls @ 100 mls/hr IV Q24H [facility] Last Admin: 04/22/17 21:28 Dose: 100 mls/hr Clindamycin in NS (Clindamycin 300 Mg/50 Ml-Ns) 300 mg in 50 mls @ 50 mls/hr IVPB Q12 ODETTE PRN Reason: Protocol Last Admin: 04/23/17 08:59 Dose: 50 mls/hr Pantoprazole Sodium (Protonix Susp) 40 mg NG DAILY [facility] Last Admin: 04/23/17 09:01 Dose: 40 mg Potassium Chloride (Potassium Chloride Oral Soln) 40 meq NG Q4 ODETTE Stop: 04/23/17 21:01 Thiamine HCl (Vitamin B1 Tab) 200 mg PO Q12H [facility] Last Admin: 04/23/17 09:03 Dose: 200 mg - Labs Labs: 04/23/17 05:30 04/23/17 05:30 PT 15.8 Seconds (9.8-13.1) H 04/14/17 04:20 INR 1.4 (0.9-1.2) H 04/14/17 04:20 APTT 33.0 Seconds (25.6-37.1) 04/14/17 04:20
[2017-04-23] MEDS ORDERED: Potassium Chloride 20 mEq/15 ml LIQ UD NG SCH (17:30)
[2017-04-23] MEDS ORDERED: Potassium Chloride 20 mEq/15 ml LIQ UD NG ONE (18:00)
[2017-04-23] MEDS: Tobramycin inj 60 MG in Sodium Chloride 0.9% 100 ML IV SCH (18:40)
[2017-04-23] MEDS ORDERED: Potassium Chloride 20 mEq/15 ml LIQ UD PO ONE (22:40)
[2017-04-24] MEDS ORDERED: Potassium Chloride 20 mEq/15 ml LIQ UD NG ONE (02:40)
[2017-04-24 04:27] LABS: ABG ALLEN TEST YES; ABG MECHANICAL RATE 18; ARTERIAL BLOOD GAS HCO3 23.8 mmol/L (21-28); ARTERIAL BLOOD GAS MODE A/C; ARTERIAL BLOOD GAS O2 CAPACITY 10.9 mL/dL (16-24); ARTERIAL BLOOD GAS O2 CONTENT 10.8 ML/dL (15-23); ARTERIAL BLOOD GAS PH 7.44 (7.35-7.45); ARTERIAL BLOOD GAS PO2 92 mm/Hg (80-100); ATERIAL BLOOD GAS PEEP 5; CARBOXYHEMOGLOBIN 1.4 % (0.5-1.5); HHB 0.8 % (0.0-5.0); METHEMOGLOBIN 1.8 % (0.0-3.0)
[2017-04-24 06:54] LABS: BASO % 0.2 % (0.0-2.0); HEMATOCRIT 24.1 % (34.0-47.0); LYMPH # 0.7 K/uL (1.0-4.3); LYMPH % 4.3 % (20.0-40.0); MEAN CELL VOLUME 85.9 fl (81.0-99.0); MEAN CORPUSCULAR HEMOGLOBIN 27.9 pg (27.0-31.0); MEAN CORPUSCULAR HGB CONC 32.4 g/dL (33.0-37.0); MONO # 0.8 K/uL (0.0-0.8); MONO % 4.9 % (0.0-10.0); NEUT # 14.9 K/uL (1.8-7.0); NEUT % 90.6 % (50.0-75.0); NRBC % 0.1 % (0.0-0.0); PLATELET COUNT 135 K/uL (130-400); WHITE BLOOD COUNT 16.4 K/uL (4.8-10.8)
[2017-04-24 07:12] LABS: CALCIUM 10.1 mg/dL (8.4-10.2); MAGNESIUM 2.3 MG/DL (1.6-2.3); POTASSIUM 3.6 MMOL/L (3.6-5.0)
--- NOTE | 2017-04-24 07:46 | CP.CCUPN ---
CCU Subjective - Physician Review Events Since Last Encounter (Free Text): 04/24/17 07:46 Patient on ventilator through tracheostomy, on PRVC TV 450, RR 18, FIO2 40%, no pressors, no fever, events reviewed CCU Objective - Vital Signs / Intake & Output Intake and Output (Last 8hrs): Intake & Output 04/23/17 04/24/17 04/24/17 22:59 06:59 14:59 Intake Total 1470 860 Output Total 1270 725 Balance 200 135 Intake: Intake, Piggyback 550 Tube Feeding 720 360 Free Water Flush 200 500 Output: Urine 1270 725 Urethral ([place]) 1270 725 Other: # Bowel Movements 5 - Physical Exam Head: Positive for: Atraumatic, Normocephalic. Negative for: Tenderness, Contusion Pupils: Positive for: PERRL. Negative for: Sluggish, Non-Reactive Extroacular Muscles: Negative for: Gaze Palsy Conjunctiva: Positive for: Normal. Negative for: Injected, Icteric Mouth: Positive for: Dry (bloody) Neck: Negative for: JVD Respiratory/Chest: Positive for: Decreased Breath Sounds, Rhonchi. Negative for : Accessory Muscle Use, Wheezes Cardiovascular: Positive for: Tachycardic. Negative for: Murmurs, Rub Abdomen: Positive for: Distention, Normal Bowel Sounds. Negative for: Tenderness Upper Extremity: Positive for: Edema Lower Extremity: Positive for: Edema. Negative for: CALF TENDERNESS, NORMAL PULSES, Cyanosis Neurological: Positive for: Other (on ventilator) Skin: Positive for: Warm, Dry. Negative for: Rashes Psychiatric: Positive for: Alert - Medications Active Medications: Active Medications Generic Name Dose Route Start Last Admin Trade Name Miguelq PRN Reason Stop Dose Admin Ascorbic Acid 1,500 mg 04/13/17 10:00 04/24/17 05:26 Vitamin C 500 Mg Tab PO 1,500 mg Q6 ODETTE Administration Furosemide 40 mg 04/24/17 09:00 Lasix IVP DAILY ODETTE Heparin Sodium (Porcine) 5,000 units 04/16/17 10:30 04/23/17 20:36 Heparin SC 5,000 units Q12 [facility]TE Administration Protocol Hydrocortisone Sodium Succinate 50 mg 04/19/17 21:00 04/24/17 05:26 Solu-Cortef IV 50 mg 0300,0900,1500,2100 OD[facility]TE Administration Vancomycin HCl 250 mg/ Sodium 100 mls @ 100 mls/hr 04/11/17 09:45 04/23/17 09 :02 Chloride IVPB 100 mls/hr Q24H ODETTE Administration Protocol Tobramycin Sulfate 60 mg/ 101.5 mls @ 100 mls/hr 04/11/17 18:30 04/23/17 18: 40 Sodium Chloride IV 100 mls/hr Q24H ODETTE Administration Clindamycin in NS 300 mg in 50 mls @ 50 mls/hr 04/19/17 21:00 04/23/17 20:36 Clindamycin 300 Mg/50 Ml-Ns IVPB 50 mls/hr Q12 ODETTE Administration Protocol Pantoprazole Sodium 40 mg 04/14/17 10:30 04/23/17 09:01 Protonix Susp NG 40 mg DAILY ODETTE Administration Thiamine HCl 200 mg 04/13/17 21:00 04/23/17 20:37 Vitamin B1 Tab PO 200 mg Q12H ODETTE Administration - Patient Studies Lab Studies: Lab Studies 04/24/17 04/24/17 04/24/17 Range/Units 06:44 06:44 04:18 WBC 16.4 H (4.8-10.8) K/uL RBC 2.80 L (3.80-5.20) Mil/uL Hgb 7.8 L (12.0-16.0) g/dL Hct 24.1 L (34.0-47.0) % MCV 85.9 (81.0-99.0) fl MCH 27.9 (27.0-31.0) pg MCHC 32.4 L (33.0-37.0) g/dL RDW 17.0 H (11.5-14.5) % Plt Count 135 (130-400) K/uL MPV 9.0 (7.2-11.7) fl Neut % (Auto) 90.6 H (50.0-75.0) % Lymph % (Auto) 4.3 L (20.0-40.0) % Hettinger % (Auto) 4.9 (0.0-10.0) % Eos % (Auto) 0.0 (0.0-4.0) % Baso % (Auto) 0.2 (0.0-2.0) % Neut # 14.9 H (1.8-7.0) K/uL Lymph # 0.7 L (1.0-4.3) K/uL Hettinger # 0.8 (0.0-0.8) K/uL Eos # 0.0 (0.0-0.7) K/uL Baso # 0.0 (0.0-0.2) K/uL Neutrophils % (Manual) (42-75) % Band Neutrophils % (0-2) % Lymphocytes % (Manual) (20-50) % Monocytes % (Manual) (0-10) % Metamyelocytes % (0-0) % Myelocytes % (0-0) % Platelet Estimate (NORMAL) Large Platelets Hypochromasia (manual) Anisocytosis (manual) Target Cells Tear Drop Cells Ovalocytes Schistocytes pCO2 33 L (35-45) mm/Hg pO2 92 (80-100) mm/Hg HCO3 23.8 (21-28) mmol/L ABG pH 7.44 (7.35-7.45) ABG Total CO2 23.4 (22-28) mmol/L ABG O2 Saturation 99.2 H (95-98) % ABG O2 Content 10.8 L (15-23) ML/dL ABG Base Excess -1.5 (-2.0-3.0) mmol/L ABG Hemoglobin 7.9 L (11.7-17.4) g/dL ABG Carboxyhemoglobin 1.4 (0.5-1.5) % POC ABG HHb (Measured) 0.8 (0.0-5.0) % ABG Methemoglobin 1.8 (0.0-3.0) % ABG O2 Capacity 10.9 L (16-24) mL/dL Domingo Test Yes A-a O2 Difference 152.0 mm/Hg Hgb O2 Saturation 96.0 (95.0-98.0) % Vent Mode A/c Mechanical Rate 18 FiO2 40.0 % Tidal Volume 450 PEEP 5 Sodium 151 H (132-148) mmol/l Potassium 3.6 (3.6-5.0) MMOL/L Chloride 116 H (98-107) mmol/L Carbon Dioxide 24 (22-30) mmol/L Anion Gap 15 (10-20) BUN 64 H (7-17) mg/dl Creatinine 1.7 H (0.7-1.2) mg/dl Est GFR ( Amer) 38 Est GFR (Non-Af Amer) 32 Random Glucose 103 (65-105) mg/dL Calcium 10.1 (8.4-10.2) mg/dL Magnesium 2.3 (1.6-2.3) MG/DL Vancomycin Trough (5.0-10.0) ug/mL Blood Type Antibody Screen Crossmatch BBK History Checked 04/23/17 04/23/17 04/23/17 Range/Units 11:50 10:00 08:15 WBC (4.8-10.8) K/uL RBC (3.80-5.20) Mil/uL Hgb (12.0-16.0) g/dL Hct (34.0-47.0) % MCV (81.0-99.0) fl MCH (27.0-31.0) pg MCHC (33.0-37.0) g/dL RDW (11.5-14.5) % Plt Count (130-400) K/uL MPV (7.2-11.7) fl Neut % (Auto) (50.0-75.0) % Lymph % (Auto) (20.0-40.0) % Hettinger % (Auto) (0.0-10.0) % Eos % (Auto) (0.0-4.0) % Baso % (Auto) (0.0-2.0) % Neut # (1.8-7.0) K/uL Lymph # (1.0-4.3) K/uL Hettinger # (0.0-0.8) K/uL Eos # (0.0-0.7) K/uL Baso # (0.0-0.2) K/uL Neutrophils % (Manual) (42-75) % Band Neutrophils % (0-2) % Lymphocytes % (Manual) (20-50) % Monocytes % (Manual) (0-10) % Metamyelocytes % (0-0) % Myelocytes % (0-0) % Platelet Estimate (NORMAL) Large Platelets Hypochromasia (manual) Anisocytosis (manual) Target Cells Tear Drop Cells Ovalocytes Schistocytes pCO2 (35-45) mm/Hg pO2 (80-100) mm/Hg HCO3 (21-28) mmol/L ABG pH (7.35-7.45) ABG Total CO2 (22-28) mmol/L ABG O2 Saturation (95-98) % ABG O2 Content (15-23) ML/dL ABG Base Excess (-2.0-3.0) mmol/L ABG Hemoglobin (11.7-17.4) g/dL ABG Carboxyhemoglobin (0.5-1.5) % POC ABG HHb (Measured) (0.0-5.0) % ABG Methemoglobin (0.0-3.0) % ABG O2 Capacity (16-24) mL/dL Domingo Test A-a O2 Difference mm/Hg Hgb O2 Saturation (95.0-98.0) % Vent Mode Mechanical Rate FiO2 % Tidal Volume PEEP Sodium (132-148) mmol/l Potassium (3.6-5.0) MMOL/L Chloride (98-107) mmol/L Carbon Dioxide (22-30) mmol/L Anion Gap (10-20) BUN (7-17) mg/dl Creatinine (0.7-1.2) mg/dl Est GFR ( Amer) Est GFR (Non-Af Amer) Random Glucose (65-105) mg/dL Calcium (8.4-10.2) mg/dL Magnesium 1.9 (1.6-2.3) MG/DL Vancomycin Trough 14.5 H (5.0-10.0) ug/mL Blood Type A POSITIVE Antibody Screen Negative Crossmatch See Detail BBK History Checked Patient has bt 04/23/17 Range/Units 05:30 WBC (4.8-10.8) K/uL RBC (3.80-5.20) Mil/uL Hgb (12.0-16.0) g/dL Hct (34.0-47.0) % MCV (81.0-99.0) fl MCH (27.0-31.0) pg MCHC (33.0-37.0) g/dL RDW (11.5-14.5) % Plt Count (130-400) K/uL MPV (7.2-11.7) fl Neut % (Auto) (50.0-75.0) % Lymph % (Auto) (20.0-40.0) % Hettinger % (Auto) (0.0-10.0) % Eos % (Auto) (0.0-4.0) % Baso % (Auto) (0.0-2.0) % Neut # (1.8-7.0) K/uL Lymph # (1.0-4.3) K/uL Hettinger # (0.0-0.8) K/uL Eos # (0.0-0.7) K/uL Baso # (0.0-0.2) K/uL Neutrophils % (Manual) 86 H (42-75) % Band Neutrophils % 4 H (0-2) % Lymphocytes % (Manual) 1 L (20-50) % Monocytes % (Manual) 7 (0-10) % Metamyelocytes % 1 H (0-0) % Myelocytes % 1 H (0-0) % Platelet Estimate Normal (NORMAL) Large Platelets Present Hypochromasia (manual) Moderate Anisocytosis (manual) Slight Target Cells Slight Tear Drop Cells Slight Ovalocytes Slight Schistocytes Slight pCO2 (35-45) mm/Hg pO2 (80-100) mm/Hg HCO3 (21-28) mmol/L ABG pH (7.35-7.45) ABG Total CO2 (22-28) mmol/L ABG O2 Saturation (95-98) % ABG O2 Content (15-23) ML/dL ABG Base Excess (-2.0-3.0) mmol/L ABG Hemoglobin (11.7-17.4) g/dL ABG Carboxyhemoglobin (0.5-1.5) % POC ABG HHb (Measured) (0.0-5.0) % ABG Methemoglobin (0.0-3.0) % ABG O2 Capacity (16-24) mL/dL Domingo Test A-a O2 Difference mm/Hg Hgb O2 Saturation (95.0-98.0) % Vent Mode Mechanical Rate FiO2 % Tidal Volume PEEP Sodium (132-148) mmol/l Potassium (3.6-5.0) MMOL/L Chloride (98-107) mmol/L Carbon Dioxide (22-30) mmol/L Anion Gap (10-20) BUN (7-17) mg/dl Creatinine (0.7-1.2) mg/dl Est GFR ( Amer) Est GFR (Non-Af Amer) Random Glucose (65-105) mg/dL Calcium (8.4-10.2) mg/dL Magnesium (1.6-2.3) MG/DL Vancomycin Trough (5.0-10.0) ug/mL Blood Type Antibody Screen Crossmatch BBK History Checked Laboratory Results - last 24 hr 04/23/17 04/23/17 04/23/17 05:30 08:15 10:00 WBC RBC Hgb Hct MCV MCH MCHC RDW Plt Count MPV Neut % (Auto) Lymph % (Auto) Hettinger % (Auto) Eos % (Auto) Baso % (Auto) Neut # Lymph # Hettinger # Eos # Baso # Neutrophils % (Manual) 86 H Band Neutrophils % 4 H Lymphocytes % (Manual) 1 L Monocytes % (Manual) 7 Metamyelocytes % 1 H Myelocytes % 1 H Platelet Estimate Normal Large Platelets Present Hypochromasia (manual) Moderate Anisocytosis (manual) Slight Target Cells Slight Tear Drop Cells Slight Ovalocytes Slight Schistocytes Slight pCO2 pO2 HCO3 ABG pH ABG Total CO2 ABG O2 Saturation ABG O2 Content ABG Base Excess ABG Hemoglobin ABG Carboxyhemoglobin POC ABG HHb (Measured) ABG Methemoglobin ABG O2 Capacity Domingo Test A-a O2 Difference Hgb O2 Saturation Vent Mode Mechanical Rate FiO2 Tidal Volume PEEP Sodium Potassium Chloride Carbon Dioxide Anion Gap BUN Creatinine Est GFR ( Amer) Est GFR (Non-Af Amer) Random Glucose Calcium Magnesium 1.9 Vancomycin Trough Blood Type A POSITIVE Antibody Screen Negative Crossmatch See Detail BBK History Checked Patient has bt 04/23/17 04/24/17 04/24/17 11:50 04:18 06:44 WBC RBC Hgb Hct MCV MCH MCHC RDW Plt Count MPV Neut % (Auto) Lymph % (Auto) Hettinger % (Auto) Eos % (Auto) Baso % (Auto) Neut # Lymph # Hettinger # Eos # Baso # Neutrophils % (Manual) Band Neutrophils % Lymphocytes % (Manual) Monocytes % (Manual) Metamyelocytes % Myelocytes % Platelet Estimate Large Platelets Hypochromasia (manual) Anisocytosis (manual) Target Cells Tear Drop Cells Ovalocytes Schistocytes pCO2 33 L pO2 92 HCO3 23.8 ABG pH 7.44 ABG Total CO2 23.4 ABG O2 Saturation 99.2 H ABG O2 Content 10.8 L ABG Base Excess -1.5 ABG Hemoglobin 7.9 L ABG Carboxyhemoglobin 1.4 POC ABG HHb (Measured) 0.8 ABG Methemoglobin 1.8 ABG O2 Capacity 10.9 L Domingo Test Yes A-a O2 Difference 152.0 Hgb O2 Saturation 96.0 Vent Mode A/c Mechanical Rate 18 FiO2 40.0 Tidal Volume 450 PEEP 5 Sodium 151 H Potassium 3.6 Chloride 116 H Carbon Dioxide 24 Anion Gap 15 BUN 64 H Creatinine 1.7 H Est GFR ( Amer) 38 Est GFR (Non-Af Amer) 32 Random Glucose 103 Calcium 10.1 Magnesium 2.3 Vancomycin Trough 14.5 H Blood Type Antibody Screen Crossmatch BBK History Checked 04/24/17 06:44 WBC 16.4 H RBC 2.80 L Hgb 7.8 L Hct 24.1 L MCV 85.9 MCH 27.9 MCHC 32.4 L RDW 17.0 H Plt Count 135 MPV 9.0 Neut % (Auto) 90.6 H Lymph % (Auto) 4.3 L Hettinger % (Auto) 4.9 Eos % (Auto) 0.0 Baso % (Auto) 0.2 Neut # 14.9 H Lymph # 0.7 L Hettinger # 0.8 Eos # 0.0 Baso # 0.0 Neutrophils % (Manual) Band Neutrophils % Lymphocytes % (Manual) Monocytes % (Manual) Metamyelocytes % Myelocytes % Platelet Estimate Large Platelets Hypochromasia (manual) Anisocytosis (manual) Target Cells Tear Drop Cells Ovalocytes Schistocytes pCO2 pO2 HCO3 ABG pH ABG Total CO2 ABG O2 Saturation ABG O2 Content ABG Base Excess ABG Hemoglobin ABG Carboxyhemoglobin POC ABG HHb (Measured) ABG Methemoglobin ABG O2 Capacity Domingo Test A-a O2 Difference Hgb O2 Saturation Vent Mode Mechanical Rate FiO2 Tidal Volume PEEP Sodium Potassium Chloride Carbon Dioxide Anion Gap BUN Creatinine Est GFR ( Amer) Est GFR (Non-Af Amer) Random Glucose Calcium Magnesium Vancomycin Trough Blood Type Antibody Screen Crossmatch BBK History Checked Fingerstick Blood Sugar Results: 221 Critical Care Progress Note - Nutrition Nutrition: Nutrition Category Date Time Status NPO Diet [DIET] Diets 04/19/17 Breakfast Active Assessment/Plan - Assessment and Plan (Free Text) Assessment: A/P Respiratory failure, pneumonia, sepsis, cervical ca, gi bleeding, renal failure , PE s/p IVC filter, thrombocytopenia, anemia - ventilatory support - Weaning as tolerated - Pulmonary toilets - Continue meds - Transfusion as needed - Poor prognosis critical care 40 min
[2017-04-24 07:50] LABS: METAMYELOCYTE 3 % (0-0); MYELOCYTE 2 % (0-0); NEUTROPHIL 81 % (42-75); TOTAL CELLS COUNTED 100
--- NOTE | 2017-04-24 09:08 | CP.PCM.PN ---
Subjective - Date & Time of Evaluation Date of Evaluation: 04/24/17 Time of Evaluation: 09:08 - Subjective Subjective: pt seen examined for respiratory failure, bacteremia. +trach on AC 18 40% 450 saturating 97%. Vitals 99.1 96 128/71. Na 151, K 3.6 today. SCr 1.7, mildly elevating. Pt HD stable, NAD. Objective - Vital Signs/Intake and Output Vital Signs (last 24 hours): Temp Pulse Resp BP Pulse Ox 99.1 F 96 H 18 128/71 97 04/24/17 08:00 04/24/17 08:00 04/24/17 08:00 04/24/17 08:00 04/24/17 08:00 Intake and Output: 04/24/17 04/24/17 06:59 18:59 Intake Total 1040 Output Total 995 Balance 45 Constitutional- trach, NAD. Head- NCAT, PERRL Eye- PERRL, normal accommodation ENT- normal exam, MMM. Neck- normal inspection, supple, no JVD +trach. Respiratory- CTAB, no wheezes Cardiovascular- RRR, +S1, +S2 no MRG GI/Abdominal- normal bowel sounds, soft, no masses appreciated + diarrhea. Skin- warm, dry Extremities Exam- normal capillary refill, normal inspection Neurological Exam- arousable. spontaneous movements. Psych- unable to assess at this time. - Medications Medications: Current Medications Ascorbic Acid (Vitamin C 500 Mg Tab) 1,500 mg PO Q6 [facility] Last Admin: 04/24/17 05:26 Dose: 1,500 mg Furosemide (Lasix) 40 mg IVP DAILY [facility] Heparin Sodium (Porcine) (Heparin) 5,000 units SC Q12 ODETTE PRN Reason: Protocol Last Admin: 04/23/17 20:36 Dose: 5,000 units Hydrocortisone Sodium Succinate (Solu-Cortef) 50 mg IV 0300,0900,1500,2100 [facility] Last Admin: 04/24/17 05:26 Dose: 50 mg Vancomycin HCl 250 mg/ Sodium (Chloride) 100 mls @ 100 mls/hr IVPB Q24H ODETTE PRN Reason: Protocol Last Admin: 04/23/17 09:02 Dose: 100 mls/hr Tobramycin Sulfate 60 mg/ (Sodium Chloride) 101.5 mls @ 100 mls/hr IV Q24H [facility] Last Admin: 04/23/17 18:40 Dose: 100 mls/hr Clindamycin in NS (Clindamycin 300 Mg/50 Ml-Ns) 300 mg in 50 mls @ 50 mls/hr IVPB Q12 ODETTE PRN Reason: Protocol Last Admin: 04/23/17 20:36 Dose: 50 mls/hr Pantoprazole Sodium (Protonix Susp) 40 mg NG DAILY ODETTE Last Admin: 04/23/17 09:01 Dose: 40 mg Thiamine HCl (Vitamin B1 Tab) 200 mg PO Q12H [facility] Last Admin: 04/23/17 20:37 Dose: 200 mg - Labs Labs: 04/24/17 06:44 04/24/17 06:44 PT 15.8 Seconds (9.8-13.1) H 04/14/17 04:20 INR 1.4 (0.9-1.2) H 04/14/17 04:20 APTT 33.0 Seconds (25.6-37.1) 04/14/17 04:20 Assessment and Plan - Assessment and Plan (Free Text) Plan: 51 F PMHx ovarian CA s/p RODRIGO/BSO (in remission since 2014), SB enteritis s/p ex- lap with WILNER (01/04/17) which was c/b VAP, ascites with drain placement and post -op PE (IVC filter, now on Xarelto), right hydronephrosis with ureteral stent placement (now removed). p/w acute renal failure with severe metabolic acidosis , oozing blood from oropharynx and possible traumatic castillo placement. Dialysis started (04/04). Presentation: Increased weakness, AMS 04/03/17 without improvement. Anemia 8.6, gross hematuria, ARF and severe Metabolic Acidosis. In ER, Pt was altered, tachypneic and BP drop to 59/36, Pt was intubated, initiated on pressors, and admitted to ICU with Respiratory Failure. 04/22/17 s/p PICC R Brachial vein, R IJ REMOVED. Septic Shock 2/2 Kleb pneumonia (ESBL) and E Faecalis Bacteremia Severe Sepsis + ESBL Kelbsiella, E. Faecalis (blood), pseudomonas (trach asp), yeast (urine) Abx coverage now Clindamycin, Diflucan, Tobra, Vanco Continue steroids, Vitamin C and thiamine 04/22/17 R PICC placed and R IJ removed. Acute Respiratory Failure 2/2 pneumonia +TRACH POD #5 continues on AC 18 450 5 40% Acute Renal Failure vs. ATN? s/p dialysis x2 Nephrology consult: Dr. Nunez appreciated and followed Discussed today, will adjust Lasix to once a day, Metolazone D/C and add 250cc FREE WATER FLUSH QID. - also added D5W with KCl @100cc/hr Lasix 40 BID changed to once a day Metolazone was stopped Anemia Thrombocytopenia Coagulopathy H/H 6.9/21.1 1 unit PRBC transfused yesterday Diarrhea Hypokalemia Hypernatremia Hyperchloremia volume loss, profuse diarrhea repleted and checked 3.6 today Mg repleted as well repeat level tomorrow NPO, Vital@70. GI - Dr. Nixon DVT proph - SCD's, heparin sq GI proph - protonix po castillo for strict I/O's during acute illness Code status - full code
[2017-04-24] MEDS: Clindamycin in NS 300 MG/50 ML BAG IVPB SCH ×2 (10:08→20:55)
[2017-04-24] MEDS: Pantoprazole 40 mg Susp UD NG SCH (10:09)
[2017-04-24] MEDS: Vancomycin 250 MG in Sodium Chloride 0.9% 100 ML IVPB SCH (10:11)
[2017-04-24] MEDS: Potassium Chl 40mEq & D5W 1,000 ML IV SCH ×2 (11:59→20:00)
--- NOTE | 2017-04-24 16:23 | CP.PCM.PN ---
Subjective - Date & Time of Evaluation Date of Evaluation: 04/24/17 Time of Evaluation: 16:21 - Subjective Subjective: Follow up Nephrology Consultation Note Assessment: critical Non-oliguric Acute Kidney Injury (N17.9) likely due to acute tubular necrosis due to septic shock, required renal replacement therapy Acute respi failure s/p trach Hypomagnesemia, Hypokalemia, Hypernatremia, Hypercalcemia Sepsis with shock Obesity hx of ovarian CA s/p RODRIGO/BSO, DVT s/p IVC filter Anemia Plan No acute need for renal replacement therapy at present. fluid status improved, making more urine. creatinine stable d/c diuretics, will start D5W due to rising Na and Ca. can d/c IVF once hypernatremia resolves. supplement electrolytes as KDUR. pt also on free water 250 mL q6 hr Monitor Input/Output, daily weights and renal function with basic metabolic panel PRBC as needed for anemia Dose meds/antibiotics for improved GFR. Avoid fleets enema/magnesium based laxatives. Avoid nephrotoxins/NSAIDs/ iodinated contrast (unless needed emergently) Glycemic control Further work up for as per primary team Thanks for allowing me to participate in care of your patient. Will follow patient with you. Please call if any Qs. d/w ICU team Dr Reji Nunez Office: [phone] Subjective: Noted events overnight. Patients s/p trach unable to obtain hx from patient. off pressors. continue to make adequate amount of urine. dialysis not needed since last weekend diarrhoea + but better Physical Examination: General Appearance: Comfortable, in no acute respiratory distress, ill appearing , s/p trach Vitals reviewed and noted as below Lungs: Normal respiratory rate/effort. Breath sounds bilateral equal Heart: Normal rate. s1s2 normal. No rub or gallop. Extremities: no edema in legs. Neurological: Patient is awake but not communicative at present Skin: Warm and dry. Normal turgor. No rash. Palpitation: Normal elasticity for age Abdomen: Abdomen is soft. Bowel sounds +. There is no abdominal tenderness, no guarding/rigidity or organomegaly : kidney or bladder not palpable Access: none now Head; Atraumatic, normocephalic EYES: Pupils are equal, round and reactive to light accommodation. Eye muscles and extraocular movement intact. Sclera is anicteric. Neck; supple no lymphadenopathy, no thyromegaly or bruit Psych: Unable MSK: no joint tenderness or swelling. Digits and nails normal, no deformity Labs/imaging reviewed. Past medical history, past surgical history, family history, social history, allergy reviewed family hx No hx of CKD Objective - Vital Signs/Intake and Output Vital Signs (last 24 hours): Temp Pulse Resp BP Pulse Ox 99.2 F 114 H 19 131/74 99 04/24/17 12:00 04/24/17 14:00 04/24/17 14:00 04/24/17 14:00 04/24/17 14:00 Intake and Output: 04/24/17 04/24/17 06:59 18:59 Intake Total 1040 1165 Output Total 995 475 Balance 45 690 - Medications Medications: Current Medications Ascorbic Acid (Vitamin C 500 Mg Tab) 1,500 mg PO Q6 [facility] Last Admin: 04/24/17 10:11 Dose: 1,500 mg Heparin Sodium (Porcine) (Heparin) 5,000 units SC Q12 [facility]TE PRN Reason: Protocol Last Admin: 04/24/17 10:09 Dose: 5,000 units Hydrocortisone Sodium Succinate (Solu-Cortef) 50 mg IV 0300,0900,1500,2100 [facility] Last Admin: 04/24/17 10:10 Dose: 50 mg Vancomycin HCl 250 mg/ Sodium (Chloride) 100 mls @ 100 mls/hr IVPB Q24H [facility]TE PRN Reason: Protocol Last Admin: 04/24/17 10:11 Dose: 100 mls/hr Tobramycin Sulfate 60 mg/ (Sodium Chloride) 101.5 mls @ 100 mls/hr IV Q24H [facility] Last Admin: 04/23/17 18:40 Dose: 100 mls/hr Clindamycin in NS (Clindamycin 300 Mg/50 Ml-Ns) 300 mg in 50 mls @ 50 mls/hr IVPB Q12 [facility]ETTE PRN Reason: Protocol Last Admin: 04/24/17 10:08 Dose: 50 mls/hr Potassium Chloride/Dextrose (Potassium Chl 40 Meq In D5w) 1,000 mls @ 100 mls/ hr IV .Q10H [facility] Stop: 04/25/17 09:38 Last Admin: 04/24/17 11:59 Dose: 100 mls/hr Pantoprazole Sodium (Protonix Susp) 40 mg NG DAILY [facility] Last Admin: 04/24/17 10:09 Dose: 40 mg Thiamine HCl (Vitamin B1 Tab) 200 mg PO Q12H [facility] Last Admin: 04/24/17 10:10 Dose: 200 mg - Labs Labs: 04/24/17 06:44 04/24/17 06:44 PT 15.8 Seconds (9.8-13.1) H 04/14/17 04:20 INR 1.4 (0.9-1.2) H 04/14/17 04:20 APTT 33.0 Seconds (25.6-37.1) 04/14/17 04:20
[2017-04-24] MEDS: Tobramycin inj 60 MG in Sodium Chloride 0.9% 100 ML IV SCH (17:32)
[2017-04-25] MEDS ORDERED: HYDROCORTISONE IV SCH (02:45)
[2017-04-25] MEDS ORDERED: SODIUM CHLORIDE 0.9% IV SCH (02:45)
[2017-04-25 05:28] LABS: BASO % 0.1 % (0.0-2.0); HEMATOCRIT 23.5 % (34.0-47.0); LYMPH # 0.5 K/uL (1.0-4.3); LYMPH % 2.9 % (20.0-40.0); MEAN CELL VOLUME 87.2 fl (81.0-99.0); MEAN CORPUSCULAR HEMOGLOBIN 27.9 pg (27.0-31.0); MONO # 0.5 K/uL (0.0-0.8); MONO % 3.2 % (0.0-10.0); NEUT # 16.1 K/uL (1.8-7.0); NEUT % 93.8 % (50.0-75.0); NRBC % 0.1 % (0.0-0.0); RED CELL DISTRIBUTION WIDTH 17.7 % (11.5-14.5); WHITE BLOOD COUNT 17.2 K/uL (4.8-10.8)
[2017-04-25 05:37] LABS: ALB/GLOB RATIO 1.2 (1.0-2.1); BILIRUBIN,TOTAL 0.7 mg/dl (0.2-1.3); PHOSPHOROUS 4.3 mg/dl (2.5-4.5); POTASSIUM 3.6 MMOL/L (3.6-5.0); TOTAL PROTEIN 5.7 G/DL (6.3-8.2)
[2017-04-25 05:47] LABS: ABG ALLEN TEST YES; ABG MECHANICAL RATE 18; ARTERIAL BLOOD GAS HCO3 22.1 mmol/L (21-28); ARTERIAL BLOOD GAS MODE PRVC/AC; ARTERIAL BLOOD GAS O2 CAPACITY 11.1 mL/dL (16-24); ARTERIAL BLOOD GAS O2 CONTENT 11.2 ML/dL (15-23); ARTERIAL BLOOD GAS PH 7.36 (7.35-7.45); ARTERIAL BLOOD GAS PO2 97 mm/Hg (80-100); ARTERIAL BLOOD HGB O2 SAT 96.8 % (95.0-98.0); ATERIAL BLOOD GAS PEEP 5; CARBOXYHEMOGLOBIN 2.4 % (0.5-1.5); HHB -0.5 % (0.0-5.0); METHEMOGLOBIN 1.3 % (0.0-3.0)
[2017-04-25] MEDS: Potassium Chl 40mEq & D5W 1,000 ML IV SCH (06:00)
--- NOTE | 2017-04-25 08:37 | CP.PCM.PN ---
Subjective - Date & Time of Evaluation Date of Evaluation: 04/25/17 Time of Evaluation: 08:35 - Subjective Subjective: Patient appeared to be more awake Patient feeling much better. Vital signs noted with low-grade fever blood pressure seems to be okay. Objective - Vital Signs/Intake and Output Vital Signs (last 24 hours): Temp Pulse Resp BP Pulse Ox 100.3 F H 114 H 18 127/71 100 04/25/17 08:00 04/25/17 08:00 04/25/17 08:00 04/25/17 08:00 04/25/17 08:00 Intake and Output: 04/25/17 04/25/17 06:59 18:59 Intake Total 2190 Output Total 500 Balance 1690 - Medications Medications: Current Medications Ascorbic Acid (Vitamin C 500 Mg Tab) 1,500 mg PO Q6 [facility] Last Admin: 04/25/17 03:38 Dose: 1,500 mg Heparin Sodium (Porcine) (Heparin) 5,000 units SC Q12 [facility] PRN Reason: Protocol Last Admin: 04/24/17 20:55 Dose: 5,000 units Hydrocortisone Sodium Succinate (Solu-Cortef) 60 mg IV Q6H [facility] Last Admin: 04/25/17 03:30 Dose: 60 mg Vancomycin HCl 250 mg/ Sodium (Chloride) 100 mls @ 100 mls/hr IVPB Q24H [facility] PRN Reason: Protocol Last Admin: 04/24/17 10:11 Dose: 100 mls/hr Tobramycin Sulfate 60 mg/ (Sodium Chloride) 101.5 mls @ 100 mls/hr IV Q24H [facility] Last Admin: 04/24/17 17:32 Dose: 100 mls/hr Clindamycin in NS (Clindamycin 300 Mg/50 Ml-Ns) 300 mg in 50 mls @ 50 mls/hr IVPB Q12 [facility] PRN Reason: Protocol Last Admin: 04/24/17 20:55 Dose: 50 mls/hr Potassium Chloride/Dextrose (Potassium Chl 40 Meq In D5w) 1,000 mls @ 100 mls/ hr IV .Q10H [facility] Stop: 04/25/17 09:38 Last Admin: 04/24/17 20:00 Dose: 100 mls/hr Pantoprazole Sodium (Protonix Susp) 40 mg NG DAILY [facility] Last Admin: 04/24/17 10:09 Dose: 40 mg Thiamine HCl (Vitamin B1 Tab) 200 mg PO Q12H [facility] Last Admin: 04/24/17 20:58 Dose: 200 mg - Labs Labs: 04/25/17 04:20 04/25/17 04:20 PT 15.8 Seconds (9.8-13.1) H 04/14/17 04:20 INR 1.4 (0.9-1.2) H 04/14/17 04:20 APTT 33.0 Seconds (25.6-37.1) 04/14/17 04:20 - Constitutional Appears: No Acute Distress - ENT Exam ENT Exam: Mucous Membranes Moist - Respiratory Exam Respiratory Exam: absent: Chest Wall Tenderness, Rales - GI/Abdominal Exam GI & Abdominal Exam: Soft, Normal Bowel Sounds - Extremities Exam Extremities Exam: absent: Calf Tenderness - Back Exam Back Exam: absent: CVA tenderness (L), CVA tenderness (R) Assessment and Plan (1) Acute renal injury due to circulatory failure Assessment & Plan: Non-oliguric Acute Kidney Injury (N17.9) likely due to acute tubular necrosis due to septic shock, required renal replacement therapy Acute respi failure s/p trach Hypomagnesemia, Hypokalemia, Hypernatremia, Hypercalcemia Sepsis with shock Obesity hx of ovarian CA s/p RODRIGO/BSO, DVT s/p IVC filter Anemia Sodium improving Potassium corrected Leukocytosis on antibiotics as per ID with the renal dosing consideration. Gentle hydration. Status: Acute (2) Altered mental status Status: Acute (3) GI bleed Status: Acute (4) Hypotension Status: Deleted
[2017-04-25] MEDS: Clindamycin in NS 300 MG/50 ML BAG IVPB SCH ×2 (09:15→21:19)
[2017-04-25] MEDS: Pantoprazole 40 mg Susp UD NG SCH (09:22)
[2017-04-25] MEDS: Vancomycin 250 MG in Sodium Chloride 0.9% 100 ML IVPB SCH (09:24)
--- NOTE | 2017-04-25 10:27 | CP.PCM.CON ---
History of Present Illness - History of Present Illness History of Present Illness: Dr Dillon wound care consultation on Patsy Scales, born 1965. I have copied the history from the initial H&P as Patsy was not able to provide a history [facility] due to increased weakness, AMS, onset 04/03/17 with no improvement. 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 She is currently on a Cl[place]ron bed with contact isolation for C.Diff Loose BM with castillo cath in place Right flank three 2.5x3.5 unstageables large amount of loose stool. Sacral and buttock region with notable maceration and some stage II areas. She is dependent in all aspects of care I would recommend either a colostomy if possible or at least a rectal tube if not tried to this point to try and control feces to the area. I do not see the need to debride the flank wounds and would treat with either Santyl or Silvadene. The sacral area clearly needs to have a barrier ointment like Proshield to be applied q shift and as needed on top of that This region will be hard to control as long as she is having such copious loose BM Consider banana flakes Thank you Past Patient History - Past Medical History & Family History Past Medical History?: Yes - Past Social History Alcohol: None Drugs: Denies - CARDIAC Hx Cardiac Disorders: No - PULMONARY Hx Pulmonary Embolism: Yes - NEUROLOGICAL Hx Neurological Disorder: No - HEENT Hx HEENT Problems: No - RENAL Other/Comment: hydronephrosis, R ureteral stent and removal (01/27/17). 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) - ENDOCRINE/METABOLIC Hx Endocrine Disorders: No - HEMATOLOGICAL/ONCOLOGICAL Hx Blood Disorders: Yes Hx Cancer: Yes (Cervical) - INTEGUMENTARY Hx Dermatological Problems: No - MUSCULOSKELETAL/RHEUMATOLOGICAL Hx Musculoskeletal Disorders: No - GASTROINTESTINAL Hx Gastrointestinal Disorders: Yes Hx Bowel Surgery: Yes Hx Fatty Liver Disease: Yes Other/Comment: small bowel enteritis - GENITOURINARY/GYNECOLOGICAL Hx Genitourinary Disorders: Yes Hx Ovarian Cancer: Yes - PSYCHIATRIC Hx Psychophysiologic Disorder: No Hx Substance Use: No - SURGICAL HISTORY Hx Cholecystectomy: Yes - ANESTHESIA Hx Anesthesia: Yes Hx Anesthesia Reactions: No Meds Allergies/Adverse Reactions: Allergies Allergy/AdvReac Type Severity Reaction Status Date / Time cimetidine [From [facility]] Allergy RASH Verified 04/04/17 05:33 nickel Allergy RASH Verified 04/04/17 05:34 Penicillins Allergy RASH Verified 04/04/17 05:33 - Medications Medications: Current Medications Acetaminophen (Tylenol 325mg Tab) 650 mg PO STAT STA Stop: 04/25/17 09:45 Ascorbic Acid (Vitamin C 500 Mg Tab) 1,500 mg PO Q6 [facility] Last Admin: 04/25/17 09:23 Dose: 1,500 mg Heparin Sodium (Porcine) (Heparin) 5,000 units SC Q12 [facility] PRN Reason: Protocol Last Admin: 04/25/17 09:22 Dose: 5,000 units Hydrocortisone Sodium Succinate (Solu-Cortef) 60 mg IV Q6H [facility] Last Admin: 04/25/17 09:22 Dose: 60 mg Vancomycin HCl 250 mg/ Sodium (Chloride) 100 mls @ 100 mls/hr IVPB Q24H [facility] PRN Reason: Protocol Last Admin: 04/25/17 09:24 Dose: 100 mls/hr Tobramycin Sulfate 60 mg/ (Sodium Chloride) 101.5 mls @ 100 mls/hr IV Q24H [facility] Last Admin: 04/24/17 17:32 Dose: 100 mls/hr Clindamycin in NS (Clindamycin 300 Mg/50 Ml-Ns) 300 mg in 50 mls @ 50 mls/hr IVPB Q12 [facility] PRN Reason: Protocol Last Admin: 04/24/17 20:55 Dose: 50 mls/hr Pantoprazole Sodium (Protonix Susp) 40 mg NG DAILY [facility] Last Admin: 04/25/17 09:22 Dose: 40 mg Thiamine HCl (Vitamin B1 Tab) 200 mg PO Q12H [facility] Last Admin: 04/25/17 09:23 Dose: 200 mg Results - Vital Signs Recent Vital Signs: Last Vital Signs Temp 100.3 F H 04/25/17 08:00 Pulse 114 H 04/25/17 08:00 Resp 18 04/25/17 08:00 BP 127/71 04/25/17 08:00 Pulse Ox 100 04/25/17 08:00 - Labs Result Diagrams: 04/25/17 04:20 04/25/17 04:20 Labs: Laboratory Results - last 24 hr 04/23/17 04/24/17 04/25/17 08:15 10:30 04:20 WBC 17.2 H RBC 2.70 L Hgb 7.5 L Hct 23.5 L MCV 87.2 MCH 27.9 MCHC 32.0 L RDW 17.7 H Plt Count 156 MPV 9.0 Neut % (Auto) 93.8 H Lymph % (Auto) 2.9 L [place] % (Auto) 3.2 Eos % (Auto) 0.0 Baso % (Auto) 0.1 Neut # 16.1 H Lymph # 0.5 L [place] # 0.5 Eos # 0.0 Baso # 0.0 Total Counted Cancelled Neutrophils % (Manual) Cancelled Band Neutrophils % Cancelled Lymphocytes % (Manual) Cancelled Reactive Lymphs % Cancelled Monocytes % (Manual) Cancelled Eosinophils % (Manual) Cancelled Basophils % (Manual) Cancelled Metamyelocytes % Cancelled Myelocytes % Cancelled Promyelocytes % Cancelled Blast Cells % Cancelled Plasma Cell % (Manual) Cancelled Nucleated RBC % Cancelled Hypersegmented Polys Cancelled Smudge Cells Cancelled Toxic Granulation Cancelled Dohle Bodies Cancelled Eduar Rods Cancelled Platelet Estimate Cancelled Plt Clumps, EDTA Cancelled Large Platelets Cancelled Giant Platelets Cancelled RBC Morphology Cancelled Polychromasia Cancelled Hypochromasia (manual) Cancelled Poikilocytosis (manual Cancelled Basophilic Stippling Cancelled Anisocytosis (manual) Cancelled Microcytosis (manual) Cancelled Macrocytosis (manual) Cancelled Spherocytes Cancelled Sickle Cells Cancelled Target Cells Cancelled Tear Drop Cells Cancelled Ovalocytes Cancelled Stomatocytes Cancelled Helmet Cells Cancelled [place] Bodies Cancelled Gamal Cells Cancelled Acanthocytes (Spur) Cancelled Rouleaux Cancelled Schistocytes Cancelled pCO2 pO2 HCO3 ABG pH ABG Total CO2 ABG O2 Saturation ABG O2 Content ABG Base Excess ABG Hemoglobin ABG Carboxyhemoglobin POC ABG HHb (Measured) ABG Methemoglobin ABG O2 Capacity [place] Test A-a O2 Difference Hgb O2 Saturation Vent Mode Mechanical Rate FiO2 Tidal Volume PEEP Sodium Potassium Chloride Carbon Dioxide Anion Gap BUN Creatinine Est GFR ( Amer) Est GFR (Non-Af Amer) Random Glucose Calcium Phosphorus Magnesium Total Bilirubin AST ALT Alkaline Phosphatase Total Protein Albumin Globulin Albumin/Globulin Ratio Procalcitonin 5.33 H Blood Type A POSITIVE Antibody Screen Negative Crossmatch See Detail BBK History Checked Patient has bt 04/25/17 04/25/17 04:20 05:37 WBC RBC Hgb Hct MCV MCH MCHC RDW Plt Count MPV Neut % (Auto) Lymph % (Auto) [place] % (Auto) Eos % (Auto) Baso % (Auto) Neut # Lymph # [place] # Eos # Baso # Total Counted Neutrophils % (Manual) Band Neutrophils % Lymphocytes % (Manual) Reactive Lymphs % Monocytes % (Manual) Eosinophils % (Manual) Basophils % (Manual) Metamyelocytes % Myelocytes % Promyelocytes % Blast Cells % Plasma Cell % (Manual) Nucleated RBC % Hypersegmented Polys Smudge Cells Toxic Granulation Dohle Bodies Eduar Rods Platelet Estimate Plt Clumps, EDTA Large Platelets Giant Platelets RBC Morphology Polychromasia Hypochromasia (manual) Poikilocytosis (manual Basophilic Stippling Anisocytosis (manual) Microcytosis (manual) Macrocytosis (manual) Spherocytes Sickle Cells Target Cells Tear Drop Cells Ovalocytes Stomatocytes Helmet Cells [place] Bodies Gamal Cells Acanthocytes (Spur) Rouleaux Schistocytes pCO2 38 pO2 97 HCO3 22.1 ABG pH 7.36 ABG Total CO2 22.7 ABG O2 Saturation 100.5 H ABG O2 Content 11.2 L ABG Base Excess -3.6 L ABG Hemoglobin 8.1 L ABG Carboxyhemoglobin 2.4 H POC ABG HHb (Measured) -0.5 L ABG Methemoglobin 1.3 ABG O2 Capacity 11.1 L [place] Test Yes A-a O2 Difference 141.0 Hgb O2 Saturation 96.8 Vent Mode Prvc/ac Mechanical Rate 18 FiO2 40.0 Tidal Volume 450 PEEP 5 Sodium 146 Potassium 3.6 Chloride 112 H Carbon Dioxide 23 Anion Gap 15 BUN 65 H Creatinine 1.8 H Est GFR ( Amer) 36 Est GFR (Non-Af Amer) 30 Random Glucose 144 H Calcium 10.0 Phosphorus 4.3 Magnesium 2.0 Total Bilirubin 0.7 AST 55 H ALT 55 H Alkaline Phosphatase 321 H Total Protein 5.7 L Albumin 3.1 L Globulin 2.6 Albumin/Globulin Ratio 1.2 Procalcitonin Blood Type Antibody Screen Crossmatch BBK History Checked
--- NOTE | 2017-04-25 10:43 | RAD ---
HISTORY: Intubated COMPARISON: 04/22/2017 FINDINGS: LUNGS: Ill-defined opacity at right lung base. Possible dependent pleural effusion versus infiltrate. No left basilar opacity. Minimal left basilar subsegmental atelectasis. PLEURA: Possible small right pleural effusion. No left pleural effusion. No pneumothorax. CARDIOVASCULAR: Tracheostomy and nasogastric tube unchanged. New right PICC catheter terminates in the region of the superior vena cava. Right multi lumen tunneled central venous catheter is no longer present. OSSEOUS STRUCTURES: No significant abnormalities. VISUALIZED UPPER ABDOMEN: Normal. OTHER FINDINGS: None. IMPRESSION: New right PICC catheter. Questionable infiltrate versus dependent pleural fluid at right base.
--- NOTE | 2017-04-25 14:37 | CP.PCM.PN ---
Subjective - Date & Time of Evaluation Date of Evaluation: 04/25/17 Time of Evaluation: 11:45 - Subjective Subjective: F/U Respiratory Failure Pt with eyes open, understand verbal commands. Objective - Vital Signs/Intake and Output Vital Signs (last 24 hours): Temp Pulse Resp BP Pulse Ox 99.1 F 108 H 18 127/78 100 04/25/17 12:00 04/25/17 14:00 04/25/17 14:00 04/25/17 14:00 04/25/17 14:00 Intake and Output: 04/25/17 04/25/17 06:59 18:59 Intake Total 2190 1660 Output Total 500 Balance 1690 1660 - Medications Medications: Current Medications Ascorbic Acid (Vitamin C 500 Mg Tab) 1,500 mg PO Q6 [facility] Last Admin: 04/25/17 09:23 Dose: 1,500 mg Collagenase (Santyl) 1 applic TOP Q12 [facility] Dimethicone (Proshield Plus Skin Protectant) 1 applic TOP Q8 [facility] Heparin Sodium (Porcine) (Heparin) 5,000 units SC Q12 [facility] PRN Reason: Protocol Last Admin: 04/25/17 09:22 Dose: 5,000 units Hydrocortisone Sodium Succinate (Solu-Cortef) 60 mg IV Q6H [facility] Last Admin: 04/25/17 09:22 Dose: 60 mg Vancomycin HCl 250 mg/ Sodium (Chloride) 100 mls @ 100 mls/hr IVPB Q24H [facility] PRN Reason: Protocol Last Admin: 04/25/17 09:24 Dose: 100 mls/hr Tobramycin Sulfate 60 mg/ (Sodium Chloride) 101.5 mls @ 100 mls/hr IV Q24H [facility] Last Admin: 04/24/17 17:32 Dose: 100 mls/hr Clindamycin in NS (Clindamycin 300 Mg/50 Ml-Ns) 300 mg in 50 mls @ 50 mls/hr IVPB Q12 [facility] PRN Reason: Protocol Last Admin: 04/25/17 09:15 Dose: 50 mls/hr Pantoprazole Sodium (Protonix Susp) 40 mg NG DAILY [facility] Last Admin: 04/25/17 09:22 Dose: 40 mg Thiamine HCl (Vitamin B1 Tab) 200 mg PO Q12H [facility] Last Admin: 04/25/17 09:23 Dose: 200 mg - Labs Labs: 04/25/17 04:20 04/25/17 04:20 PT 15.8 Seconds (9.8-13.1) H 04/14/17 04:20 INR 1.4 (0.9-1.2) H 04/14/17 04:20 APTT 33.0 Seconds (25.6-37.1) 04/14/17 04:20 - Constitutional Appears: Chronically Ill - Head Exam Head Exam: NORMAL INSPECTION - Eye Exam Eye Exam: PERRL - ENT Exam ENT Exam: Normal Exam - Neck Exam Neck Exam: Normal Inspection Additional comments: Tracheostomy - Respiratory Exam Respiratory Exam: Decreased Breath Sounds (at bases), Rhonchi (scattered) - Cardiovascular Exam Cardiovascular Exam: REGULAR RHYTHM - GI/Abdominal Exam GI & Abdominal Exam: Soft, Normal Bowel Sounds - Extremities Exam Extremities Exam: Pedal Edema Additional comments: L heel and R lateral ankle DTI, MSAD posterior tigh. - Back Exam Additional comments: MSAD buttock, sacrum, R flank. - Neurological Exam Additional comments: Eyes open, minimal spontaneous movements - Skin Skin Exam: Warm Assessment and Plan (1) Acute respiratory failure Status: Acute (2) Status post tracheostomy Status: Acute (3) Shock Status: Deleted (4) Pneumonia Status: Acute (5) Acute renal failure (ARF) Status: Acute (6) Anemia Status: Acute (7) Hematuria, gross Status: Deleted (8) Thrombocytopenia Status: Resolved (9) History of pulmonary embolus (PE) Status: Acute (10) Pancolitis Status: Deleted (11) UTI (urinary tract infection) Assessment & Plan: E Faecium VRE Status: Deleted - Assessment and Plan (Free Text) Plan: Continue ventilatory support, FIO2 40%, Zyvox , Clinda , Tobra , Santyl , Proshield and rest of Tx.
--- NOTE | 2017-04-25 15:49 | PN ---
CRITICAL CARE PROGRESS NOTE DATE: 04/25/2017 LOCATION: Patient in ICU, bed 423. TIME SPENT: 35 minutes. SUBJECTIVE: The patient is seen and evaluated at the bedside. Past medical, surgical, social history reviewed. Events overnight noted. Case was discussed in a.m. ICU multidisciplinary rounds. A 51-year-old female, morbidly obese with history of carcinoma of the ovary, status post total abdominal hysterectomy, bilateral salpingo-oophorectomy; disease free from 2014; status post pulmonary embolism, status post inferior vena cava filter, admitted with sepsis with multiple organisms in blood, sputum, and urine. Acute tubular necrosis related to septic shock, on vent dependent status post tracheostomy, postoperative day #6. Noted to have multiple sacral wounds breakdown and also in the midline above the vagina and also on the right upper back. Overnight on AC/PRBC rate 18, tidal volume of 450, FiO2 of 40%, PEEP of 5, no sedation needed, exhaled rate 18, exhaled tidal volume 490, minute ventilation 8 liters, saturating 100%, peak airway pressure 20, end-tidal CO2 of 35. Reportedly, more wakeful than at baseline and able to respond as per the nurse. PHYSICAL EXAMINATION VITAL SIGNS: Temperature 100.3, heart rate of 114, blood pressure 127/71, mean arterial pressure 89, respiratory rate 18, saturation of 100%. Intake 4285, output 1135, positive balance 3150. Weight 179 pounds. HEAD, EYES, EARS, NOSE AND THROAT: Pupils are reactive, conjunctivae pale, sclerae white. NECK: Supple. Tracheostomy site without discharge. CHEST: Bilateral breath sounds. Clear to auscultation. HEART: Rhythm regular. S1 and S2 normal intensity. ABDOMEN: Bowel sounds present, soft. Liquid stool noted, profuse. LABORATORY DATA: WBC 17.2, hemoglobin 7.5, hematocrit 23.5 and platelet count 156. PT 15, INR 1.4, PTT 33. ABG; pH 7.36, pCO2 of 38, pO2 of 97, saturation 100.5%. SMA-7; sodium 146, potassium 3.6, chloride of 112, CO2 of 23, blood urea nitrogen 65, creatinine 1.8, random glucose 144, calcium 10, phosphorus 4.3, magnesium 2, total bilirubin 0.7, AST 55, ALT 55, alkaline phosphatase 321, total protein 5.7, albumin of 3.1. Urinalysis; RBC 83, WBC clumps, WBC 264. Microbiology: Urine culture; vancomycin resistant enterococcus faecium. Sputum cultures; pseudomonas aeruginosa. Blood culture; enterococcus faecalis. Chest x-ray, new right PICC line in place, questionable infiltrate versus dependent pleural effusion, right base. CURRENT MEDICATIONS: Include ascorbic acid 15 mg q.6 hours, clindamycin 300 mg q.12 hours, Santyl 1 application topically q.12 hours, dimethicone Proshield plus skin protectant 1 application topically q.8 hours, heparin 5000 units subcu q.12 hours, hydrocortisone 60 mg IV q.6 hours, Protonix 40 mg daily, thiamine 200 mg p.o. q.12 hours, tobramycin 60 mg IV q.24 hours, vancomycin 250 mg IV q.24 hours. IMPRESSION: 1. Neurology: Septic metabolic encephalopathy, improving. More wakeful and able to follow simple commands. 2. Pulmonary: Ventilator-dependent respiratory failure. Tracheal aspiration as sputum culture positive for Pseudomonas aeruginosa status post tracheostomy, postoperative day #6. Continue to wean as tolerated as the patient is becoming more wakeful. 3. Cardiac: Status post septic shock, currently off pressors. 4. Gastrointestinal: Gastritis, on proton pump inhibitor. 5. Hematology: Leukocytosis secondary to sepsis. Anemia secondary to acute blood loss, status post transfusion of one unit of packed red blood cells ordered. 6. Renal: Acute on chronic renal insufficiency. BUN and creatinine improving. Acute tubular necrosis secondary to sepsis. Renal consult recommendation noted. Continue IV hydration. 7. Endocrine: Hypoglycemia improved; infection secondary to urine, secondary to multiple sources, on multiple antibiotics. Sacral as well as right upper back.on wound care. Appreciate recommendation by Dr. Dillon. Awaiting for PEG insertion; if family would agree, plan for intermediate frame tender acute care follow up. Timothy Gunderson MD MTDD
[2017-04-25] MEDS: Tobramycin inj 60 MG in Sodium Chloride 0.9% 100 ML IV SCH (17:52)
[2017-04-25] MEDS: Proshield Plus GEL TOP SCH (17:53)
--- NOTE | 2017-04-25 19:09 | CP.PCM.PN ---
Subjective - Date & Time of Evaluation Date of Evaluation: 04/25/17 Time of Evaluation: 19:04 - Subjective Subjective: I D NOTE HAS VRE IN URINE HAVE DISCONTINUED VANCOMYCIN WILL START ZYVOX ,SHOULD DO DAILY PLATELETS Objective - Vital Signs/Intake and Output Vital Signs (last 24 hours): Temp Pulse Resp BP Pulse Ox 99.2 F 78 18 117/70 100 04/25/17 16:00 04/25/17 18:00 04/25/17 18:00 04/25/17 18:00 04/25/17 18:00 Intake and Output: 04/25/17 04/26/17 18:59 06:59 Intake Total 2530 Output Total 900 Balance 1630 - Medications Medications: Current Medications Ascorbic Acid (Vitamin C 500 Mg Tab) 1,500 mg PO Q6 [facility] Last Admin: 04/25/17 15:17 Dose: 1,500 mg Collagenase (Santyl) 1 applic TOP Q12 [facility] Dimethicone (Proshield Plus Skin Protectant) 1 applic TOP Q8 [facility] Last Admin: 04/25/17 17:53 Dose: 1 applic Heparin Sodium (Porcine) (Heparin) 5,000 units SC Q12 [facility] PRN Reason: Protocol Last Admin: 04/25/17 09:22 Dose: 5,000 units Hydrocortisone Sodium Succinate (Solu-Cortef) 60 mg IV Q6H [facility] Last Admin: 04/25/17 15:17 Dose: 60 mg Tobramycin Sulfate 60 mg/ (Sodium Chloride) 101.5 mls @ 100 mls/hr IV Q24H [facility] Last Admin: 04/25/17 17:52 Dose: 100 mls/hr Clindamycin in NS (Clindamycin 300 Mg/50 Ml-Ns) 300 mg in 50 mls @ 50 mls/hr IVPB Q12 [facility] PRN Reason: Protocol Last Admin: 04/25/17 09:15 Dose: 50 mls/hr Potassium Chloride/Dextrose (Potassium Chl 20 Meq In D5w) 1,000 mls @ 100 mls/ hr IV .Q10H [facility] Stop: 04/26/17 18:25 Linezolid (Zyvox 600mg/300ml D5w) 600 mg in 300 mls @ 300 mls/hr IVPB Q12 [facility] PRN Reason: Protocol Pantoprazole Sodium (Protonix Susp) 40 mg NG DAILY [facility] Last Admin: 04/25/17 09:22 Dose: 40 mg Thiamine HCl (Vitamin B1 Tab) 200 mg PO Q12H [facility] Last Admin: 04/25/17 09:23 Dose: 200 mg - Labs Labs: 04/25/17 04:20 04/25/17 04:20 PT 15.8 Seconds (9.8-13.1) H 04/14/17 04:20 INR 1.4 (0.9-1.2) H 04/14/17 04:20 APTT 33.0 Seconds (25.6-37.1) 04/14/17 04:20
[2017-04-25] MEDS: Santyl Collagenase OINTMENT TOP SCH (21:13)
[2017-04-25] MEDS: Linezolid 600 mg in D5W 300 ml 600 MG/300 ML BAG IVPB SCH (21:19)
[2017-04-25] MEDS: Potassium Chl 20mEq & D5W 1,000 ML IV SCH (21:21)
[2017-04-26] MEDS: Proshield Plus GEL TOP SCH ×3 (01:00→16:43)
[2017-04-26 05:30] LABS: HEMATOCRIT 26.3 % (34.0-47.0); MEAN CELL VOLUME 85.8 fl (81.0-99.0); MEAN CORPUSCULAR HEMOGLOBIN 27.7 pg (27.0-31.0); MEAN CORPUSCULAR HGB CONC 32.3 g/dL (33.0-37.0); RED CELL DISTRIBUTION WIDTH 16.8 % (11.5-14.5); WHITE BLOOD COUNT 14.1 K/uL (4.8-10.8)
[2017-04-26 05:50] LABS: CALCIUM 9.2 mg/dL (8.4-10.2); POTASSIUM 3.2 MMOL/L (3.6-5.0)
[2017-04-26] MEDS: Clindamycin in NS 300 MG/50 ML BAG IVPB SCH ×2 (09:32→21:09)
--- NOTE | 2017-04-26 09:32 | CP.PCM.PN ---
Subjective - Date & Time of Evaluation Date of Evaluation: 04/26/17 Time of Evaluation: 09:30 - Subjective Subjective: Patient is more awake In bed Intake and output noted about 700 mL of output. Reviewed lab Noted serum potassium coming down 3.2 patient is receiving intravenous potassium now. Admitted function appear to be stable no significant changes. Decreased leg edema. Abdomen soft Chest few rhonchi Impression and plan As above potassium supplement patient has acute kidney injury superimposed on chronic kidney disease which has been stable. Status post septic shock. Objective - Vital Signs/Intake and Output Vital Signs (last 24 hours): Temp Pulse Resp BP Pulse Ox 98.4 F 87 18 116/66 98 04/26/17 08:00 04/26/17 08:00 04/26/17 08:00 04/26/17 08:00 04/26/17 08:00 Intake and Output: 04/26/17 04/26/17 06:59 18:59 Intake Total 2490 340 Output Total 700 Balance 1790 340 - Medications Medications: Current Medications Ascorbic Acid (Vitamin C 500 Mg Tab) 1,500 mg PO Q6 [facility] Last Admin: 04/26/17 03:22 Dose: 1,500 mg Collagenase (Santyl) 1 applic TOP Q12 [facility] Last Admin: 04/25/17 21:13 Dose: 1 applic Dimethicone (Proshield Plus Skin Protectant) 1 applic TOP Q8 [facility] Last Admin: 04/26/17 01:00 Dose: 1 applic Heparin Sodium (Porcine) (Heparin) 5,000 units SC Q12 [facility] PRN Reason: Protocol Last Admin: 04/25/17 21:13 Dose: 5,000 units Hydrocortisone Sodium Succinate (Solu-Cortef) 60 mg IV Q6H [facility] Last Admin: 04/26/17 03:21 Dose: 60 mg Tobramycin Sulfate 60 mg/ (Sodium Chloride) 101.5 mls @ 100 mls/hr IV Q24H [facility] Last Admin: 04/25/17 17:52 Dose: 100 mls/hr Clindamycin in NS (Clindamycin 300 Mg/50 Ml-Ns) 300 mg in 50 mls @ 50 mls/hr IVPB Q12 [facility] PRN Reason: Protocol Last Admin: 04/25/17 21:19 Dose: 50 mls/hr Potassium Chloride/Dextrose (Potassium Chl 20 Meq In D5w) 1,000 mls @ 100 mls/ hr IV .Q10H [facility] Stop: 04/26/17 18:25 Last Admin: 04/25/17 21:21 Dose: 100 mls/hr Linezolid (Zyvox 600mg/300ml D5w) 600 mg in 300 mls @ 300 mls/hr IVPB Q12 [facility] PRN Reason: Protocol Last Admin: 04/25/17 21:19 Dose: 300 mls/hr Pantoprazole Sodium (Protonix Susp) 40 mg NG DAILY [facility] Last Admin: 04/25/17 09:22 Dose: 40 mg Thiamine HCl (Vitamin B1 Tab) 200 mg PO Q12H [facility] Last Admin: 04/25/17 21:17 Dose: 200 mg - Labs Labs: 04/26/17 04:20 04/26/17 04:20 PT 15.8 Seconds (9.8-13.1) H 04/14/17 04:20 INR 1.4 (0.9-1.2) H 04/14/17 04:20 APTT 33.0 Seconds (25.6-37.1) 04/14/17 04:20 Assessment and Plan (1) Acute renal injury due to circulatory failure Status: Acute (2) Altered mental status Status: Acute (3) GI bleed Status: Acute (4) Hypotension Status: Deleted
[2017-04-26] MEDS: Pantoprazole 40 mg Susp UD NG SCH (09:33)
[2017-04-26] MEDS: Santyl Collagenase OINTMENT TOP SCH ×2 (09:33→21:10)
[2017-04-26] MEDS: Linezolid 600 mg in D5W 300 ml 600 MG/300 ML BAG IVPB SCH ×2 (10:20→20:49)
[2017-04-26] MEDS: Potassium Chl 20mEq & D5W 1,000 ML IV SCH (11:34)
--- NOTE | 2017-04-26 14:05 | VASCULAR ---
PROCEDURE: Date of procedure: 04/22/2017 Procedure: 1. Placement of a right arm PICC with ultrasound and fluoroscopic guidance, CPT 20006 2. PICC tip confirmation with spot radiograph and is in the superior vena cava 3. Removal of right IJ non tunneled hemodialysis catheter Medications: 3cc 1 percent lidocaine Total Fluoro time: 25.1 seconds Radiation:3.82 MGy EBL: 2 cc HISTORY: Poor venous access TECHNIQUE: Following informed consent and procedure time-out, the patient was placed supine on the interventional table and the right arm prepped and draped in the usual sterile fashion. Ultrasound showed a patent and compressible right basilic vein. After the skin was anesthetized with lidocaine, the basilic vein was accessed with micro micropuncture technique using ultrasound guidance. A guidewire was then advanced under fluoroscopic guidance into the superior vena cava. An image documenting ultrasound guidance for vascular access was permanently saved. The length of the double-lumen 5 Dutch PICC was trimmed to 33 centimeters and advanced through a peel-away sheath. The PICC was position with tip of PICC confirm a spot radiograph the superior vena cava. The PICC was secured to the patient's skin. The PICC was flushed. A biopatch and sterile dressing was applied. IMPRESSION: Placement of a double-lumen 5 Dutch PICC trimmed to 33 centimeters via right basilic vein. The tip of the PICC is confirmed with spot radiograph and is in the superior vena cava. Removal of right IJ non tunneled hemodialysis catheter.
[2017-04-26] MEDS: TOBRAMYCIN IV SCH (15:20)
[2017-04-26] MEDS: SODIUM CHLORIDE 0.9% IV SCH (15:20)
[2017-04-26] MEDS: Potassium Chl 40 mEq in D5-1/2 1,000 ML IV SCH (16:43)
--- NOTE | 2017-04-26 17:12 | CP.PCM.PN ---
Subjective - Date & Time of Evaluation Date of Evaluation: 04/26/17 Time of Evaluation: 09:30 - Subjective Subjective: F/U Respiratory Failure Pt with eyes open, follows verbal commands, has expressed to her pain in L-S area. Objective - Vital Signs/Intake and Output Vital Signs (last 24 hours): Temp Pulse Resp BP Pulse Ox 96.8 F L 80 17 125/64 100 04/26/17 16:00 04/26/17 16:00 04/26/17 16:00 04/26/17 16:00 04/26/17 16:00 Intake and Output: 04/26/17 04/26/17 06:59 18:59 Intake Total 2490 2210 Output Total 700 Balance 1790 2210 - Medications Medications: Current Medications Ascorbic Acid (Vitamin C 500 Mg Tab) 1,500 mg PO Q6 [facility] Last Admin: 04/26/17 15:21 Dose: 1,500 mg Collagenase (Santyl) 1 applic TOP Q12 [facility] Last Admin: 04/26/17 09:33 Dose: 1 applic Dimethicone (Proshield Plus Skin Protectant) 1 applic TOP Q8 [facility] Last Admin: 04/26/17 16:43 Dose: 1 applic Heparin Sodium (Porcine) (Heparin) 5,000 units SC Q12 [facility] PRN Reason: Protocol Last Admin: 04/26/17 09:32 Dose: 5,000 units Hydrocortisone Sodium Succinate (Solu-Cortef) 60 mg IV Q6H [facility] Last Admin: 04/26/17 15:20 Dose: 60 mg Clindamycin in NS (Clindamycin 300 Mg/50 Ml-Ns) 300 mg in 50 mls @ 50 mls/hr IVPB Q12 [facility] PRN Reason: Protocol Last Admin: 04/26/17 09:32 Dose: 50 mls/hr Linezolid (Zyvox 600mg/300ml D5w) 600 mg in 300 mls @ 300 mls/hr IVPB Q12 [facility] PRN Reason: Protocol Last Admin: 04/26/17 10:20 Dose: 300 mls/hr Tobramycin Sulfate 60 mg/ (Sodium Chloride) 51.5 mls @ 50.739 mls/hr IV Q24H [facility] Last Admin: 04/26/17 15:20 Dose: 50.739 mls/hr Potassium Chloride/Dextrose/Sod Cl (Potassium Chl 40 Meq In D5-1/2ns) 1,000 mls @ 100 mls/hr IV .Q10H [facility] Stop: 04/27/17 12:00 Last Admin: 04/26/17 16:43 Dose: 100 mls/hr Pantoprazole Sodium (Protonix Susp) 40 mg NG DAILY [facility] Last Admin: 04/26/17 09:33 Dose: 40 mg Thiamine HCl (Vitamin B1 Tab) 200 mg PO Q12H [facility] Last Admin: 04/26/17 09:34 Dose: 200 mg - Labs Labs: 04/26/17 04:20 04/26/17 04:20 PT 15.8 Seconds (9.8-13.1) H 04/14/17 04:20 INR 1.4 (0.9-1.2) H 04/14/17 04:20 APTT 33.0 Seconds (25.6-37.1) 04/14/17 04:20 - Constitutional Appears: No Acute Distress, Chronically Ill - Head Exam Head Exam: NORMAL INSPECTION - Eye Exam Eye Exam: PERRL - ENT Exam Additional comments: Tracheostomy - Neck Exam Neck Exam: Normal Inspection - Respiratory Exam Respiratory Exam: Decreased Breath Sounds (at bases), Rhonchi (scattered) - Cardiovascular Exam Cardiovascular Exam: REGULAR RHYTHM - GI/Abdominal Exam GI & Abdominal Exam: Soft, Normal Bowel Sounds - Extremities Exam Extremities Exam: Pedal Edema Additional comments: L heel and R lateral ankle DTI, MSAD posterior thigh. - Back Exam Additional comments: MSAD buttock, sacrum, R flank. - Neurological Exam Additional comments: Eyes open, minimal spontaneous movements. - Skin Skin Exam: Warm Assessment and Plan (1) Acute respiratory failure Status: Acute (2) Status post tracheostomy Status: Acute (3) Shock Status: Deleted (4) Pneumonia Status: Acute (5) Acute renal failure (ARF) Status: Acute (6) Anemia Status: Acute (7) Hematuria, gross Status: Deleted (8) Thrombocytopenia Status: Resolved (9) History of pulmonary embolus (PE) Status: Acute (10) Pancolitis Status: Deleted (11) UTI (urinary tract infection) Status: Deleted - Assessment and Plan (Free Text) Plan: Pt with macerations ulcers, DTI in back, lesions difficulty to health spa manager due to Pt with constant diarrhea. Continue with Clinda, Zyvox, Potassium replacement and rest of Tx.
--- NOTE | 2017-04-26 18:35 | OP ---
PROCEDURE DATE: 04/19/2017 SURGEON: Araceli Caldera MD CARE ADMINISTRATIVE TECH: Dr. Nolan and Dr. Harris. PREOPERATIVE DIAGNOSIS: Respiratory insufficiency. POSTOPERATIVE DIAGNOSIS: Respiratory insufficiency. PROCEDURE: Percutaneous tracheostomy with flexible bronchoscopy. DESCRIPTION OF OPERATION: The patient was placed on the bed with a shoulder roll to hyperextend the neck. The neck was prepped and draped in the usual sterile manner. Flexible fiberoptic bronchoscopy was performed via the endotracheal tube and the anterior neck below the cricoid cartilage was infiltrated with 1% lidocaine with epinephrine. A longitudinal incision was made and tissues were down until the tracheal ring could be palpated. The introducer needle for the percutaneous tracheostomy set was introduced into the trachea and visualized with the bronchoscope to be well within the lumen. The guidewire was noted to pass freely into the lumen of the trachea with the bronchoscope. The needle was removed and the initial dilator was passed over the guidewire, followed by the larger dilator and stylet, and again this was noted to pass freely into the trachea. The dilator was removed and an 8-Shiley tracheostomy tube was positioned on the appropriate introducer, and passed over the stylet and again passed freely into the trachea. The introducer and stylet were removed. The inner cannula was placed and the endotracheal tube was retracted, and ventilation was established via the tracheostomy tube. Adequate oxygenation and end-tidal CO2 were confirmed, and the position was again visualized with the bronchoscope. Bronchoscopy was then performed via the tracheostomy with suctioning of thick secretions from the right and left main bronchus, and the cuff was properly inflated. The tracheostomy was sutured to the neck with 2-0 silk sutures and a tracheostomy tape as well, and the operative site was examined for hemostasis and the patient was transferred back to the ICU in stable condition. Araceli Caldera MD MTDIvonne
--- NOTE | 2017-04-26 20:41 | PN ---
DATE: 04/26/2017 CRITICAL CARE PROGRESS NOTE LOCATION: The patient in ICU, bed 423. TIME SPENT: 35 minutes. SUBJECTIVE: The patient is seen and evaluated at the bedside. Past medical, surgical, and social history reviewed. Events overnight noted. Case discussed in ICU multidisciplinary rounds. A 51-year-old female, morbidly obese, history of carcinoma of the ovary, status post total abdominal hysterectomy, bilateral salpingo-oophorectomy; disease free from 2014. Status post pulmonary embolism, status post inferior vena cava filter, admitted with sepsis with multiple organisms in blood, sputum, and urine. Acute tubular necrosis related to septic shock, vent dependent status post tracheostomy, postoperative day #7. Noted to have multiple sacral wounds breakdown in the midline above the vagina, on the right upper back as well as on the sacral area. Overnight on AC/PRBC rate 18, tidal volume of 450, FiO2 of 40, PEEP of 5, not on any sedation; rate 19, exhaled tidal volume of 450, minute ventilation 7.4 liters, peak airway pressure 25, end-tidal CO2 of 30. PHYSICAL EXAMINATION VITAL SIGNS: Temperature 98.2, heart rate 81 and regular, blood pressure 130/72, mean arterial pressure 91, oxygen saturation 100% on FiO2 of 40%. HEAD, EYES, EARS, NOSE AND THROAT: Pupils are reactive, conjunctivae pale, sclerae anicteric. NECK: Supple. Tracheostomy site without discharge. CHEST: Bilateral breath sounds. Clear to auscultation anteriorly and laterally. HEART: Rhythm regular. S1 and S2 normal intensity. ABDOMEN: Bowel sounds present, soft. Liquid stool noted, profuse. SKIN: Sacral breakdown, unstageable on the sacral as well as in the right upper back. LABORATORY DATA: WBC 14.1, hemoglobin 8.5, hematocrit 26.3 and platelet count 148. PT 15.8, INR 1.4, PTT 33. ABG; pH 7.36, pCO2 of 38, pO2 of 97, saturation 100.5. SMA-7; sodium 141, potassium 3.2, chloride of 108, CO2 of 22, blood urea nitrogen 67, creatinine 1.7, random glucose 166. Urinalysis; rbc 83, wbc occasional. Microscopic wbc 264, urine bacteria moderate, urine yeast budding moderate. Microbiology: Urine culture; VRE and faecium. Sputum cultures; pseudomonas. Blood culture; enterococcus faecium. Wound culture; pseudomonas aeruginosa. CURRENT MEDICATIONS: Ascorbic acid 500 mg 15 tablets, 3 tablets q.6 hours, clindamycin 300 mg in 50 mL IV q.12 hours, Santyl 1 application topically q.12 at the right upper back, Proshield plus skin protectant at the sacral area 1 application topically q.8 hours, heparin 5000 units subcu q.12, hydrocortisone 60 mg IV q.6, Zyvox 600 mg IV push q.12 hours, Protonix 40 mg daily, potassium chloride and D5 half-normal 1000 at 100 mL per hour, thiamine 200 mg p.o. q.12, tobramycin 60 mg IV daily. IMPRESSION: 1. Neurology: Resolving septic metabolic encephalopathy, more wakeful, able to follow simple commands. 2. Pulmonary: Hypoxic respiratory failure, vent dependent. Pneumonia with sputum positive for pseudomonas aeruginosa, status post tracheostomy, postoperative day #7. Continue to wean as tolerated. 3. Cardiac: Status post septic shock, currently off pressors. 4. Gastrointestinal: Gastritis, on proton pump inhibitor. 5. Hematology: Leukocytosis secondary to sepsis. Anemia secondary to acute blood loss, status post transfusion of two units of packed red blood cells. Repeat hemoglobin 8.5. 6. Renal: [id number] renal insufficiency. Acute tubular necrosis secondary to sepsis, improving. Continue IV hydration. Monitor BUN and creatinine. On D5 half-normal with potassium at 100 mL per hour. Appreciate Renal followup and discussion. 7. Endocrine: Hyperglycemia improved. 8. Infectious Disease: Multiple sources of infection, including lung and urine. Multiple bacterial infection. Unstageable sacral as well as wound on the right back. Continue Clinitron bed, wound care. The patient might benefit from percutaneous endoscopic gastrostomy insertion, to discuss with family. Timothy Gunderson MD
[2017-04-27] MEDS: Proshield Plus GEL TOP SCH ×3 (01:42→17:49)
[2017-04-27 02:46] LABS: BILIRUBIN,TOTAL 0.4 mg/dl (0.2-1.3); MAGNESIUM 1.3 MG/DL (1.6-2.3); PHOSPHOROUS 5.9 mg/dl (2.5-4.5); POTASSIUM 2.9 MMOL/L (3.6-5.0)
[2017-04-27] MEDS ORDERED: Magnesium Sulfate 2 GM in Sodium Chloride 0.9% 100 ML IVPB ONE (03:19)
[2017-04-27 05:07] LABS: MEAN CORPUSCULAR HEMOGLOBIN 27.7 pg (27.0-31.0); MEAN CORPUSCULAR HGB CONC 32.2 g/dL (33.0-37.0); RED CELL DISTRIBUTION WIDTH 16.9 % (11.5-14.5); WHITE BLOOD COUNT 15.2 K/uL (4.8-10.8)
[2017-04-27 05:41] LABS: ABG ALLEN TEST YES; ARTERIAL BLOOD GAS HCO3 21.5 mmol/L (21-28); ARTERIAL BLOOD GAS MODE CPAP; ARTERIAL BLOOD GAS O2 CAPACITY 13.5 mL/dL (16-24); ARTERIAL BLOOD GAS O2 CONTENT 13.5 ML/dL (15-23); ARTERIAL BLOOD GAS PH 7.38 (7.35-7.45); ARTERIAL BLOOD GAS PO2 98 mm/Hg (80-100); ARTERIAL BLOOD HGB O2 SAT 95.9 % (95.0-98.0); ATERIAL BLOOD GAS PEEP 5; CARBOXYHEMOGLOBIN 2.2 % (0.5-1.5); HHB 0.2 % (0.0-5.0); METHEMOGLOBIN 1.8 % (0.0-3.0)
[2017-04-27] MEDS: Clindamycin in NS 300 MG/50 ML BAG IVPB SCH ×2 (08:55→21:02)
[2017-04-27] MEDS: Pantoprazole 40 mg Susp UD NG SCH (09:00)
[2017-04-27] MEDS: Potassium Chl 40 mEq in D5-1/2 1,000 ML IV SCH ×2 (09:00→13:12)
[2017-04-27] MEDS: Santyl Collagenase OINTMENT TOP SCH ×2 (09:01→21:14)
[2017-04-27] MEDS: Linezolid 600 mg in D5W 300 ml 600 MG/300 ML BAG IVPB SCH ×2 (09:06→21:14)
--- NOTE | 2017-04-27 09:19 | RAD ---
HISTORY: Trached to CPAP. Technique: Single view portable semi erect @ 04:41. COMPARISON: Multiple serial examinations preceding the most recent study: April 25, 2017. FINDINGS: LUNGS: No active pulmonary disease. PLEURA: No significant pleural effusion identified, no pneumothorax apparent. CARDIOVASCULAR: No radiographic findings to suggest acute or significant cardiovascular disease. PICC line in satisfactory position unchanged compared to the prior study. OSSEOUS STRUCTURES: No significant abnormalities. VISUALIZED UPPER ABDOMEN: Normal. OTHER FINDINGS: Tracheostomy device in satisfactory position unchanged. Nasogastric tube in satisfactory position cord old in a decompressed stomach. IMPRESSION: No active pulmonary disease. Satisfactory position of support apparatus.
[2017-04-27] MEDS: SODIUM CHLORIDE 0.9% IV SCH (11:00)
[2017-04-27] MEDS: TOBRAMYCIN IV SCH (11:00)
--- NOTE | 2017-04-27 11:08 | CP.PCM.PN ---
Subjective - Date & Time of Evaluation Date of Evaluation: 04/27/17 Time of Evaluation: 11:07 - Subjective Subjective: Patient sedated at the present don't respiratory. Intake and output noted urine output improving. Reviewed lab Objective - Vital Signs/Intake and Output Vital Signs (last 24 hours): Temp Pulse Resp BP Pulse Ox 97.4 F L 93 H 26 H 131/77 100 04/27/17 08:00 04/27/17 08:00 04/27/17 08:00 04/27/17 08:00 04/27/17 08:00 Intake and Output: 04/27/17 04/27/17 06:59 18:59 Intake Total 2540 Output Total 1900 Balance 2540 -1900 - Medications Medications: Current Medications Ascorbic Acid (Vitamin C 500 Mg Tab) 1,500 mg PO Q6 [facility] Last Admin: 04/27/17 09:07 Dose: 1,500 mg Collagenase (Santyl) 1 applic TOP Q12 [facility] Last Admin: 04/27/17 09:01 Dose: 1 applic Dimethicone (Proshield Plus Skin Protectant) 1 applic TOP Q8 [facility] Last Admin: 04/27/17 09:00 Dose: 1 applic Heparin Sodium (Porcine) (Heparin) 5,000 units SC Q12 [facility] PRN Reason: Protocol Last Admin: 04/27/17 08:56 Dose: 5,000 units Hydrocortisone Sodium Succinate (Solu-Cortef) 60 mg IV Q6H [facility] Last Admin: 04/27/17 09:08 Dose: 60 mg Clindamycin in NS (Clindamycin 300 Mg/50 Ml-Ns) 300 mg in 50 mls @ 50 mls/hr IVPB Q12 [facility] PRN Reason: Protocol Last Admin: 04/27/17 08:55 Dose: 50 mls/hr Linezolid (Zyvox 600mg/300ml D5w) 600 mg in 300 mls @ 300 mls/hr IVPB Q12 [facility] PRN Reason: Protocol Last Admin: 04/27/17 09:06 Dose: 300 mls/hr Tobramycin Sulfate 60 mg/ (Sodium Chloride) 51.5 mls @ 50.739 mls/hr IV Q24H [facility] Last Admin: 04/26/17 15:20 Dose: 50.739 mls/hr Potassium Chloride/Dextrose/Sod Cl (Potassium Chl 40 Meq In D5-1/2ns) 1,000 mls @ 100 mls/hr IV .Q10H [facility] Stop: 04/27/17 12:00 Last Admin: 04/27/17 09:00 Dose: 100 mls/hr Pantoprazole Sodium (Protonix Susp) 40 mg NG DAILY [facility] Last Admin: 04/27/17 09:00 Dose: 40 mg Thiamine HCl (Vitamin B1 Tab) 200 mg PO Q12H [facility] Last Admin: 04/27/17 09:07 Dose: 200 mg - Labs Labs: 04/27/17 04:10 04/27/17 02:28 PT 15.8 Seconds (9.8-13.1) H 04/14/17 04:20 INR 1.4 (0.9-1.2) H 04/14/17 04:20 APTT 33.0 Seconds (25.6-37.1) 04/14/17 04:20 - Constitutional Appears: No Acute Distress - ENT Exam ENT Exam: Mucous Membranes Moist - Respiratory Exam Respiratory Exam: Rhonchi. absent: Chest Wall Tenderness - Cardiovascular Exam Cardiovascular Exam: absent: JVD, Rubs - GI/Abdominal Exam GI & Abdominal Exam: Soft, Normal Bowel Sounds - Extremities Exam Extremities Exam: absent: Calf Tenderness - Back Exam Back Exam: absent: CVA tenderness (L), CVA tenderness (R) - Neurological Exam Neurological Exam: Altered Assessment and Plan (1) Acute renal injury due to circulatory failure Assessment & Plan: Acute kidney injury improving and serum creatinine coming down patient no longer need for dialysis at the present. Hypokalemia patient given 40 mEq potassium chloride stat IV this morning. And also receiving 40 mEq potassium chloride in 1000 mL D5 half normal saline at 75 mL/h. Hypomagnesemia. Patient was given 2 g of magnesium intravenously. Status post tracheostomy. On ventilator. History of ovarian cancer with previous operation. Leukocytosis. Patient is receiving intravenous antibiotics patient was admitted with septic shock initially. Status: Acute (2) Altered mental status Status: Acute (3) GI bleed Status: Acute (4) Hypotension Status: Deleted
--- NOTE | 2017-04-27 12:08 | CP.CCUPN ---
CCU Subjective - Physician Review Subjective (Free Text): Had brief episode of R-sided facial twitching- new event, unclear if focal seizure activity or related to hypokalemia. No recurrence noted. Has been more responsive over the past several days, placed onto CPAP 5, PS 15 40% last 18hours, and placed onto SBT trial off vent, on 40% trach collar. After approx. 30 mins, noted to be tachypneic-RR 32 and desaturated to 88%. No overall distress, POD #7 Trach, now placed back to AC 14, 450ml TV, 40%, 5 PEEP with SPO2 100%. Placed on Clinitron bed for severe skin wound mgmt. Other vitals and I/O's reviewed. NO fever spikes last 48H. Fluid balance : urine output of 1900 ml last 12h. ROS: Unobtainable from intubated Patient. No other pertinent negs or positives on 10+ system review. PMSFH: All Nursing and physician documentation reviewed to date; no new pertinent info noted relevant to current medical problems. CXR: essentially unchanged: trach tube position ok within tracheal air column, no new consolidation ( my interp). MAJOR PROBLEMS: 1. +Kleb pneumoniae (ESBL) and E. faecalis Bacteremia 2. Septic Shock 2 #1 3. Acute Renal Failure / ATN 4. Acute Resp Failure, 2 pneumonia 5. Thrombocytopenia / Coagulopathy PLAN: 1. Repeat K before any further MV weans. 2. Stop IVFs, serum Na levels have normalized, continue hydration with enteral feed water. 3. Seizure precautions. 4. Check Mag, Phos, ionized Ca. 5. Decrease hydrocortisone, conrinue Vit C and Thiamine. 6. Abx coverage as per ID: Zyvox / Clinda/ Tobra. 7. Needs PEG. 8. LTAC consideration. CCU Objective - Vital Signs / Intake & Output Intake and Output (Last 8hrs): Intake & Output 04/26/17 04/27/17 04/27/17 22:59 06:59 14:59 Intake Total 2060 1410 Output Total 1400 1900 Balance 660 1410 -1900 Intake: IV 700 500 Intake, Piggyback 300 350 Tube Feeding 560 560 Free Water Flush 500 Output: Urine 1400 1900 Urethral (Overton) 1400 1900 Other: # Voids Urethral (Overton) 1 # Bowel Movements 1 1 - Physical Exam Head: Positive for: Atraumatic, Normocephalic. Negative for: Tenderness, Contusion Pupils: Positive for: PERRL. Negative for: Sluggish, Non-Reactive Extroacular Muscles: Negative for: Gaze Palsy Conjunctiva: Positive for: Normal. Negative for: Injected, Icteric Mouth: Positive for: Dry (bloody) Neck: Negative for: JVD Respiratory/Chest: Positive for: Decreased Breath Sounds, Rhonchi. Negative for : Accessory Muscle Use, Wheezes Cardiovascular: Positive for: Tachycardic. Negative for: Murmurs, Rub Abdomen: Positive for: Distention, Normal Bowel Sounds. Negative for: Tenderness Upper Extremity: Positive for: Edema Lower Extremity: Positive for: Edema. Negative for: CALF TENDERNESS, NORMAL PULSES, Cyanosis Neurological: Positive for: Other (on ventilator) Skin: Positive for: Warm, Dry. Negative for: Rashes Psychiatric: Positive for: Alert - Medications Active Medications: Active Medications Generic Name Dose Route Start Last Admin Trade Name Freq PRN Reason Stop Dose Admin Ascorbic Acid 1,500 mg 04/13/17 10:00 04/27/17 09:07 Vitamin C 500 Mg Tab PO 1,500 mg Q6 [facility] Administration Collagenase 1 applic 04/25/17 21:00 04/27/17 09:01 Santyl TOP 1 applic Q12 [facility] Administration Dimethicone 1 applic 04/25/17 17:00 04/27/17 09:00 Proshield Plus Skin Protectant TOP 1 applic Q8 [facility] Administration Heparin Sodium (Porcine) 5,000 units 04/16/17 10:30 04/27/17 08:56 Heparin SC 5,000 units Q12 [facility] Administration Protocol Hydrocortisone Sodium Succinate 60 mg 04/25/17 03:15 04/27/17 09:08 Solu-Cortef IV 60 mg Q6H [facility] Administration Clindamycin in NS 300 mg in 50 mls @ 50 mls/hr 04/19/17 21:00 04/27/17 08:55 Clindamycin 300 Mg/50 Ml-Ns IVPB 50 mls/hr Q12 [facility] Administration Protocol Linezolid 600 mg in 300 mls @ 300 mls/hr 04/25/17 21:00 04/27/17 09:06 Zyvox 600mg/300ml D5w IVPB 300 mls/hr Q12 [facility] Administration Protocol Tobramycin Sulfate 60 mg/ 51.5 mls @ 50.739 mls/hr 04/26/17 11:00 04/26/17 15 :20 Sodium Chloride IV 50.739 mls/hr Q24H [facility] Administration Pantoprazole Sodium 40 mg 04/14/17 10:30 04/27/17 09:00 Protonix Susp NG 40 mg DAILY [facility] Administration Thiamine HCl 200 mg 04/13/17 21:00 04/27/17 09:07 Vitamin B1 Tab PO 200 mg Q12H [facility] Administration - Patient Studies Lab Studies: Lab Studies 04/27/17 04/27/17 04/27/17 Range/Units 05:13 04:10 02:28 WBC 15.2 H (4.8-10.8) K/uL RBC 3.02 L (3.80-5.20) Mil/uL Hgb 8.4 L (12.0-16.0) g/dL Hct 26.0 L (34.0-47.0) % MCV 86.0 (81.0-99.0) fl MCH 27.7 (27.0-31.0) pg MCHC 32.2 L (33.0-37.0) g/dL RDW 16.9 H (11.5-14.5) % Plt Count 166 (130-400) K/uL pCO2 34 L (35-45) mm/Hg pO2 98 (80-100) mm/Hg HCO3 21.5 (21-28) mmol/L ABG pH 7.38 (7.35-7.45) ABG Total CO2 21.1 L (22-28) mmol/L ABG O2 Saturation 99.8 H (95-98) % ABG O2 Content 13.5 L (15-23) ML/dL ABG Base Excess -4.4 L (-2.0-3.0) mmol/L ABG Hemoglobin 9.9 L (11.7-17.4) g/dL ABG Carboxyhemoglobin 2.2 H (0.5-1.5) % POC ABG HHb (Measured) 0.2 (0.0-5.0) % ABG Methemoglobin 1.8 (0.0-3.0) % ABG O2 Capacity 13.5 L (16-24) mL/dL Domingo Test Yes A-a O2 Difference 145.0 mm/Hg Hgb O2 Saturation 95.9 (95.0-98.0) % Vent Mode Cpap FiO2 40.0 % PEEP 5 Pressure Support 15 Sodium 137 (132-148) mmol/l Potassium 2.9 L (3.6-5.0) MMOL/L Chloride 102 (98-107) mmol/L Carbon Dioxide 20 L (22-30) mmol/L Anion Gap 18 (10-20) BUN 65 H (7-17) mg/dl Creatinine 1.5 H (0.7-1.2) mg/dl Est GFR ( Amer) 44 Est GFR (Non-Af Amer) 36 Random Glucose 160 H (65-105) mg/dL Calcium 8.0 L (8.4-10.2) mg/dL Phosphorus 5.9 H (2.5-4.5) mg/dl Magnesium 1.3 L (1.6-2.3) MG/DL Total Bilirubin 0.4 (0.2-1.3) mg/dl AST 39 H D (14-36) U/L ALT 61 H (9-52) U/L Alkaline Phosphatase 221 H D (38-126) U/L Total Protein 5.0 L (6.3-8.2) G/DL Albumin 2.5 L (3.5-5.0) g/dL Globulin 2.4 (2.2-3.9) gm/dL Albumin/Globulin Ratio 1.0 (1.0-2.1) Laboratory Results - last 24 hr 04/27/17 04/27/17 04/27/17 02:28 04:10 05:13 WBC 15.2 H RBC 3.02 L Hgb 8.4 L Hct 26.0 L MCV 86.0 MCH 27.7 MCHC 32.2 L RDW 16.9 H Plt Count 166 pCO2 34 L pO2 98 HCO3 21.5 ABG pH 7.38 ABG Total CO2 21.1 L ABG O2 Saturation 99.8 H ABG O2 Content 13.5 L ABG Base Excess -4.4 L ABG Hemoglobin 9.9 L ABG Carboxyhemoglobin 2.2 H POC ABG HHb (Measured) 0.2 ABG Methemoglobin 1.8 ABG O2 Capacity 13.5 L Domingo Test Yes A-a O2 Difference 145.0 Hgb O2 Saturation 95.9 Vent Mode Cpap FiO2 40.0 PEEP 5 Pressure Support 15 Sodium 137 Potassium 2.9 L Chloride 102 Carbon Dioxide 20 L Anion Gap 18 BUN 65 H Creatinine 1.5 H Est GFR ( Amer) 44 Est GFR (Non-Af Amer) 36 Random Glucose 160 H Calcium 8.0 L Phosphorus 5.9 H Magnesium 1.3 L Total Bilirubin 0.4 AST 39 H D ALT 61 H Alkaline Phosphatase 221 H D Total Protein 5.0 L Albumin 2.5 L Globulin 2.4 Albumin/Globulin Ratio 1.0 Fingerstick Blood Sugar Results: 221 Review of Systems - Review of Systems Systems not reviewed;Unavailable: Intubated Critical Care Progress Note - Ventilator Checklist Head of Bed 30 Degrees: Yes Daily Sedation Vacation: Yes Daily Assessment of Readiness to Wean: Yes Daily Spontaneous Breathing Trial: Yes PUD Prophalyxis: Yes DVT Prophylaxis: Yes Oral Care with Chlorhexidine Gluconate {CHG}: Yes - Vent Settings MODE:: ASSIST CONTROL TIDAL VOLUME:: 450 RESP RATE:: 14 FIO2:: 40 PEEP:: 5 - Extremities/Vascular Does the Patient have a Central Venous Catheter?: Yes Does the Patient need a Central Venous Catheter?: Yes Does the Patient have a Overton Catheter?: Yes Does the Patient need a Overton Catheter?: Yes Catheter Insertion Criteria: Need for accurate measurement of output in critically ill patient - Restraints Justification for Restraints: High risk for self extubation - Prophylaxis GI Prophylaxis GI: PPI - Prophylaxis DVT Prophylaxis DVT: SCDs - Nutrition Nutrition: Nutrition Category Date Time Status NPO Diet [DIET] Diets 04/19/17 Breakfast Active
[2017-04-27 13:41] LABS: POTASSIUM 3.1 MMOL/L (3.6-5.0)
[2017-04-27] MEDS ORDERED: Potassium Chloride 20 mEq/15 ml LIQ UD PO ONE (14:30)
--- NOTE | 2017-04-27 15:58 | CP.PCM.PN ---
Subjective - Date & Time of Evaluation Date of Evaluation: 04/27/17 Time of Evaluation: 11:15 - Subjective Subjective: F/U Acute Respiratory failure. Eyes open to verbal stimuli. Pt Yesterday in CPAP PS, early in the AM, trial of track collar 40% but Pt became tachycardic, Sat drooped to the 90's using accessory muscle and eventually went back to ventilator PRVC/AC Objective - Vital Signs/Intake and Output Vital Signs (last 24 hours): Temp Pulse Resp BP Pulse Ox 97.5 F L 97 H 18 126/79 100 04/27/17 12:00 04/27/17 14:00 04/27/17 14:00 04/27/17 14:00 04/27/17 14:00 Intake and Output: 04/27/17 04/27/17 06:59 18:59 Intake Total 2540 Output Total 1900 Balance 2540 -1900 - Medications Medications: Current Medications Ascorbic Acid (Vitamin C 500 Mg Tab) 1,[address] [facility] Last Admin: 04/27/17 09:07 Dose: 1,500 mg Collagenase (Santyl) 1 applic TOP Q12 [facility] Last Admin: 04/27/17 09:01 Dose: 1 applic Dimethicone (Proshield Plus Skin Protectant) 1 applic TOP Q8 [facility] Last Admin: 04/27/17 09:00 Dose: 1 applic Heparin Sodium (Porcine) (Heparin) 5,000 units SC Q12 [facility] PRN Reason: Protocol Last Admin: 04/27/17 08:56 Dose: 5,000 units Hydrocortisone Sodium Succinate (Solu-Cortef) 40 mg IV Q12 [facility] Clindamycin in NS (Clindamycin 300 Mg/50 Ml-Ns) 300 mg in 50 mls @ 50 mls/hr IVPB Q12 [facility] PRN Reason: Protocol Last Admin: 04/27/17 08:55 Dose: 50 mls/hr Linezolid (Zyvox 600mg/300ml D5w) 600 mg in 300 mls @ 300 mls/hr IVPB Q12 [facility] PRN Reason: Protocol Last Admin: 04/27/17 09:06 Dose: 300 mls/hr Tobramycin Sulfate 60 mg/ (Sodium Chloride) 51.5 mls @ 50.739 mls/hr IV Q24H [facility] Last Admin: 04/27/17 11:00 Dose: 50.739 mls/hr Potassium Chloride/Dextrose/Sod Cl (Potassium Chl 40 Meq In D5-1/2ns) 1,000 mls @ 75 mls/hr IV .[id number] [facility] Stop: 04/28/17 13:04 Last Admin: 04/27/17 13:12 Dose: 75 mls/hr Pantoprazole Sodium (Protonix Susp) [address] [facility] Last Admin: 04/27/17 09:00 Dose: 40 mg Thiamine HCl (Vitamin B1 Tab) [address] [facility] Last Admin: 04/27/17 09:07 Dose: 200 mg - Labs Labs: 04/27/17 04:10 04/27/17 11:18 PT 15.8 Seconds (9.8-13.1) H 04/14/17 04:20 INR 1.4 (0.9-1.2) H 04/14/17 04:20 APTT 33.0 Seconds (25.6-37.1) 04/14/17 04:20 - Constitutional Appears: Chronically Ill - Head Exam Head Exam: NORMAL INSPECTION - Eye Exam Eye Exam: PERRL - ENT Exam ENT Exam: Normal Exam - Neck Exam Additional comments: Tracheostomy - Respiratory Exam Respiratory Exam: Decreased Breath Sounds (at bases), Rhonchi (scattered) - Cardiovascular Exam Cardiovascular Exam: REGULAR RHYTHM - GI/Abdominal Exam GI & Abdominal Exam: Soft, Normal Bowel Sounds - Extremities Exam Extremities Exam: Pedal Edema Additional comments: L heel and R lateral ankle DTI, MSAD posterior thigh - Back Exam Additional comments: MSAD buttock, sacrum, R flank. - Neurological Exam Additional comments: Eyes open to tactile stimuli, minimal spontaneous movements. - Skin Skin Exam: Warm Assessment and Plan (1) Acute respiratory failure Status: Acute (2) Status post tracheostomy Status: Acute (3) Shock Status: Deleted (4) Pneumonia Status: Acute (5) Acute renal failure (ARF) Status: Acute (6) Anemia Status: Acute (7) Hematuria, gross Status: Deleted (8) Thrombocytopenia Status: Resolved (9) History of pulmonary embolus (PE) Status: Acute (10) Pancolitis Status: Deleted (11) UTI (urinary tract infection) Status: Deleted - Assessment and Plan (Free Text) Plan: Continue current Tx.
--- NOTE | 2017-04-27 17:50 | CP.PCM.PN ---
Subjective - Date & Time of Evaluation Date of Evaluation: 04/27/17 Time of Evaluation: 17:45 - Subjective Subjective: I D NOTE AFEBRILE WBC IS STILL ELEVATED,PLAETELETS ARE PRESENTLY STABLE NO CHANGE IN RX,REPEAT BLOOD AND URINE CULTURES Objective - Vital Signs/Intake and Output Vital Signs (last 24 hours): Temp Pulse Resp BP Pulse Ox 97.4 F L 102 H 22 132/76 100 04/27/17 16:00 04/27/17 16:00 04/27/17 16:00 04/27/17 16:00 04/27/17 16:00 Intake and Output: 04/27/17 04/27/17 06:59 18:59 Intake Total 2540 Output Total 1900 Balance 2540 -1900 - Medications Medications: Current Medications Ascorbic Acid (Vitamin C 500 Mg Tab) 1,500 mg PO Q6 [facility] Last Admin: 04/27/17 09:07 Dose: 1,500 mg Collagenase (Santyl) 1 applic TOP Q12 [facility] Last Admin: 04/27/17 09:01 Dose: 1 applic Dimethicone (Proshield Plus Skin Protectant) 1 applic TOP Q8 [facility] Last Admin: 04/27/17 09:00 Dose: 1 applic Heparin Sodium (Porcine) (Heparin) 5,000 units SC Q12 [facility] PRN Reason: Protocol Last Admin: 04/27/17 08:56 Dose: 5,000 units Hydrocortisone Sodium Succinate (Solu-Cortef) 40 mg IV Q12 [facility] Clindamycin in NS (Clindamycin 300 Mg/50 Ml-Ns) 300 mg in 50 mls @ 50 mls/hr IVPB Q12 [facility] PRN Reason: Protocol Last Admin: 04/27/17 08:55 Dose: 50 mls/hr Linezolid (Zyvox 600mg/300ml D5w) 600 mg in 300 mls @ 300 mls/hr IVPB Q12 [facility] PRN Reason: Protocol Last Admin: 04/27/17 09:06 Dose: 300 mls/hr Tobramycin Sulfate 60 mg/ (Sodium Chloride) 51.5 mls @ 50.739 mls/hr IV Q24H [facility] Last Admin: 04/27/17 11:00 Dose: 50.739 mls/hr Potassium Chloride/Dextrose/Sod Cl (Potassium Chl 40 Meq In D5-1/2ns) 1,000 mls @ 75 mls/hr IV .[id number] [facility] Stop: 04/28/17 13:04 Last Admin: 04/27/17 13:12 Dose: 75 mls/hr Pantoprazole Sodium (Protonix Susp) 40 mg NG DAILY [facility] Last Admin: 04/27/17 09:00 Dose: 40 mg Thiamine HCl (Vitamin B1 Tab) 200 mg PO Q12H [facility] Last Admin: 04/27/17 09:07 Dose: 200 mg - Labs Labs: 04/27/17 04:10 04/27/17 11:18 PT 15.8 Seconds (9.8-13.1) H 04/14/17 04:20 INR 1.4 (0.9-1.2) H 04/14/17 04:20 APTT 33.0 Seconds (25.6-37.1) 04/14/17 04:20
[2017-04-28] MEDS: Proshield Plus GEL TOP SCH ×3 (03:28→17:07)
[2017-04-28] MEDS: Potassium Chl 40 mEq in D5-1/2 1,000 ML IV SCH ×2 (03:29→12:41)
[2017-04-28 04:40] LABS: BASO % 0.3 % (0.0-2.0); LYMPH # 0.3 K/uL (1.0-4.3); LYMPH % 1.8 % (20.0-40.0); MEAN CELL VOLUME 85.2 fl (81.0-99.0); MEAN CORPUSCULAR HEMOGLOBIN 28.4 pg (27.0-31.0); MEAN CORPUSCULAR HGB CONC 33.3 g/dL (33.0-37.0); MEAN PLATELET VOLUME 8.8 fl (7.2-11.7); MONO # 0.4 K/uL (0.0-0.8); MONO % 2.6 % (0.0-10.0); NEUT # 16.2 K/uL (1.8-7.0); NEUT % 95.3 % (50.0-75.0); PLATELET COUNT 205 K/uL (130-400); RED CELL DISTRIBUTION WIDTH 17.1 % (11.5-14.5)
[2017-04-28 05:12] LABS: METAMYELOCYTE 3 % (0-0); NEUTROPHIL 89 % (42-75); TOTAL CELLS COUNTED 100
[2017-04-28 05:33] LABS: ALB/GLOB RATIO 1.1 (1.0-2.1); BILIRUBIN,TOTAL 0.5 mg/dl (0.2-1.3); MAGNESIUM 1.6 MG/DL (1.6-2.3); PHOSPHOROUS 6.2 mg/dl (2.5-4.5); POTASSIUM 3.5 MMOL/L (3.6-5.0); TOTAL PROTEIN 5.3 G/DL (6.3-8.2)
--- NOTE | 2017-04-28 07:54 | CP.PCM.PN ---
Subjective - Date & Time of Evaluation Date of Evaluation: 04/28/17 Time of Evaluation: 07:52 - Subjective Subjective: Patient remained intubated through trach. Impression apparently not very much responding today she was sedated. Vital sign noted. Blood pressure okay, pulse 115 with temperature 98.6. Objective - Vital Signs/Intake and Output Vital Signs (last 24 hours): Temp Pulse Resp BP Pulse Ox 98.5 F 115 H 21 130/76 100 04/28/17 04:00 04/28/17 06:00 04/28/17 06:00 04/28/17 06:00 04/28/17 06:00 Intake and Output: 04/28/17 04/28/17 06:59 18:59 Intake Total 2495 Output Total 2100 Balance 395 - Medications Medications: Current Medications Ascorbic Acid (Vitamin C 500 Mg Tab) 1,500 mg PO Q6 [facility] Last Admin: 04/28/17 03:32 Dose: 1,500 mg Collagenase (Santyl) 1 applic TOP Q12 [facility] Last Admin: 04/27/17 21:14 Dose: 1 applic Dimethicone (Proshield Plus Skin Protectant) 1 applic TOP Q8 [facility] Last Admin: 04/28/17 03:28 Dose: 1 applic Heparin Sodium (Porcine) (Heparin) 5,000 units SC Q12 [facility] PRN Reason: Protocol Last Admin: 04/27/17 21:10 Dose: 5,000 units Hydrocortisone Sodium Succinate (Solu-Cortef) 40 mg IV Q12 [facility] Last Admin: 04/27/17 21:11 Dose: 40 mg Clindamycin in NS (Clindamycin 300 Mg/50 Ml-Ns) 300 mg in 50 mls @ 50 mls/hr IVPB Q12 [facility] PRN Reason: Protocol Last Admin: 04/27/17 21:02 Dose: 50 mls/hr Linezolid (Zyvox 600mg/300ml D5w) 600 mg in 300 mls @ 300 mls/hr IVPB Q12 [facility] PRN Reason: Protocol Last Admin: 04/27/17 21:14 Dose: 300 mls/hr Tobramycin Sulfate 60 mg/ (Sodium Chloride) 51.5 mls @ 50.739 mls/hr IV Q24H [facility] Last Admin: 04/27/17 11:00 Dose: 50.739 mls/hr Potassium Chloride/Dextrose/Sod Cl (Potassium Chl 40 Meq In D5-1/2ns) 1,000 mls @ 75 mls/hr IV .[id number] [facility] Stop: 04/28/17 13:04 Last Admin: 04/28/17 03:29 Dose: 75 mls/hr Potassium Chloride (Potassium Cl 10meq/50ml Sterile Water) 50 mls @ 50 mls/hr IVPB Q1 [facility] Stop: 04/28/17 09:59 Pantoprazole Sodium (Protonix Susp) 40 mg NG DAILY [facility] Last Admin: 04/27/17 09:00 Dose: 40 mg Thiamine HCl (Vitamin B1 Tab) 200 mg PO Q12H [facility] Last Admin: 04/27/17 21:12 Dose: 200 mg - Labs Labs: 04/28/17 04:00 04/28/17 04:33 PT 15.8 Seconds (9.8-13.1) H 04/14/17 04:20 INR 1.4 (0.9-1.2) H 04/14/17 04:20 APTT 33.0 Seconds (25.6-37.1) 04/14/17 04:20 - Constitutional Appears: In Acute Distress - ENT Exam ENT Exam: Mucous Membranes Moist - Respiratory Exam Respiratory Exam: Rhonchi. absent: Chest Wall Tenderness - Cardiovascular Exam Cardiovascular Exam: absent: JVD, Rubs - GI/Abdominal Exam GI & Abdominal Exam: Normal Bowel Sounds - Extremities Exam Extremities Exam: absent: Calf Tenderness - Back Exam Back Exam: absent: CVA tenderness (L), CVA tenderness (R) - Neurological Exam Neurological Exam: Altered - Psychiatric Exam Psychiatric exam: Flat Affect - Skin Skin Exam: absent: Cyanosis Assessment and Plan (1) Acute renal injury due to circulatory failure Assessment & Plan: Acute kidney injury kidney function appear to be stable at this point disproportion high BUN/creatinine to creatinine probably related to hypercatabolic state. Hypokalemia I ordered the stat potassium chloride intravenously. Serum magnesium noted yesterday to be corrected. The rest of the issue patient remain intubated status post tracheostomy. Status post-septic shock patient remained to have leukocytosis on antibiotics as noted by primary team. Status: Acute (2) Altered mental status Status: Acute (3) GI bleed Status: Acute (4) Hypotension Status: Deleted
--- NOTE | 2017-04-28 09:20 | RAD ---
HISTORY: trached, f/u atelectasis COMPARISON: Chest radiograph dated 04/27/2017. FINDINGS: LUNGS: No active pulmonary disease. PLEURA: Stable elevation of the right hemidiaphragm. No significant pleural effusion identified, no pneumothorax apparent. CARDIOVASCULAR: Normal. OSSEOUS STRUCTURES: Unchanged. VISUALIZED UPPER ABDOMEN: Normal. OTHER FINDINGS: Right upper extremity PICC, unchanged. Tracheostomy, unchanged. Enteric tube, unchanged. Right upper quadrant surgical clips redemonstrated. Partially imaged inferior vena cava filter re- demonstrated. IMPRESSION: No significant interval change.
[2017-04-28] MEDS: Clindamycin in NS 300 MG/50 ML BAG IVPB SCH ×2 (09:49→21:45)
[2017-04-28] MEDS: Pantoprazole 40 mg Susp UD NG SCH (09:51)
[2017-04-28] MEDS: Santyl Collagenase OINTMENT TOP SCH ×2 (09:51→21:00)
[2017-04-28] MEDS: Linezolid 600 mg in D5W 300 ml 600 MG/300 ML BAG IVPB SCH ×2 (09:53→22:01)
[2017-04-28] MEDS: Potassium CL 10 MEQ/50 ML 50 ML IVPB SCH ×2 (09:58→12:43)
[2017-04-28] MEDS: TOBRAMYCIN IV SCH (12:45)
[2017-04-28] MEDS: SODIUM CHLORIDE 0.9% IV SCH (12:45)
--- NOTE | 2017-04-28 14:07 | CP.CCUPN ---
CCU Subjective - Physician Review Subjective (Free Text): No further facial twitching, briefly opens eyes when stimulated, tolerated return to CAPAP 5, PS 15 with RR 20, Ve= 9,7, SPO2 100% on 40% oxygen. Making tremendous amounts of urine now. Other vitals and I/O's reviewed. NO fever spikes last 48H. Fluid balance : neg 1.5 L. ROS: Unobtainable from intubated Patient. No other pertinent negs or positives on 10+ system review. PMSFH: All Nursing and physician documentation reviewed to date; no new pertinent info noted relevant to current medical problems. CXR: essentially unchanged and stable: trach tube position ok within tracheal air column, no new consolidation ( my interp). MAJOR PROBLEMS: 1. +Kleb pneumoniae (ESBL) and E. faecalis Bacteremia 2. Septic Shock 2 #1 3. Acute Renal Failure / ATN 4. Acute Resp Failure, 2 pneumonia 5. Thrombocytopenia / Coagulopathy PLAN: 1. Repeat K levels improved, will supplement Mag.. 2. Stop IVFs, serum Na levels have normalized, continue hydration with enteral feed water. 3. Seizure precautions. 4. Decreased hydrocortisone, conrinue Vit C and Thiamine. 6. Abx coverage as per ID: Zyvox / Clinda/ Tobra. 7. Needs PEG. 8. LTAC consideration. CCU Objective - Vital Signs / Intake & Output Vital Signs (Last 4 hours): Vital Signs Temp Pulse Resp BP Pulse Ox 04/28/17 12:00 97.6 F 106 H 54 H 140/72 99 Intake and Output (Last 8hrs): Intake & Output 04/27/17 04/28/17 04/28/17 22:59 06:59 14:59 Intake Total 2495 Output Total 2100 Balance 395 Intake: IV 825 Intake, Piggyback 400 Tube Feeding 770 Free Water Flush 500 Output: Urine 2100 Urethral (Overton) 2100 Other: # Bowel Movements 1 - Physical Exam Head: Positive for: Atraumatic, Normocephalic. Negative for: Tenderness, Contusion Pupils: Positive for: PERRL. Negative for: Sluggish, Non-Reactive Extroacular Muscles: Negative for: Gaze Palsy Conjunctiva: Positive for: Normal. Negative for: Injected, Icteric Mouth: Positive for: Dry (bloody) Neck: Negative for: JVD Respiratory/Chest: Positive for: Decreased Breath Sounds, Rhonchi. Negative for : Accessory Muscle Use, Wheezes Cardiovascular: Positive for: Tachycardic. Negative for: Murmurs, Rub Abdomen: Positive for: Distention, Normal Bowel Sounds. Negative for: Tenderness Upper Extremity: Positive for: Edema Lower Extremity: Positive for: Edema. Negative for: CALF TENDERNESS, NORMAL PULSES, Cyanosis Neurological: Positive for: Other (on ventilator) Skin: Positive for: Warm, Dry. Negative for: Rashes Psychiatric: Positive for: Alert - Medications Active Medications: Active Medications Generic Name Dose Route Start Last Admin Trade Name Freq PRN Reason Stop Dose Admin Ascorbic Acid 1,500 mg 04/13/17 10:00 04/28/17 09:52 Vitamin C 500 Mg Tab PO 1,500 mg Q6 [facility] Administration Collagenase 1 applic 04/25/17 21:00 04/28/17 09:51 Santyl TOP 1 applic Q12 [facility] Administration Dimethicone 1 applic 04/25/17 17:00 04/28/17 09:50 Proshield Plus Skin Protectant TOP 1 applic Q8 [facility] Administration Heparin Sodium (Porcine) 5,000 units 04/16/17 10:30 04/28/17 09:50 Heparin SC 5,000 units Q12 [facility] Administration Protocol Hydrocortisone Sodium Succinate 40 mg 04/27/17 21:00 04/28/17 09:51 Solu-Cortef IV 40 mg Q12 [facility] Administration Clindamycin in NS 300 mg in 50 mls @ 50 mls/hr 04/19/17 21:00 04/28/17 09:49 Clindamycin 300 Mg/50 Ml-Ns IVPB 50 mls/hr Q12 [facility] Administration Protocol Linezolid 600 mg in 300 mls @ 300 mls/hr 04/25/17 21:00 04/28/17 09:53 Zyvox 600mg/300ml D5w IVPB 300 mls/hr Q12 [facility] Administration Protocol Tobramycin Sulfate 60 mg/ 51.5 mls @ 50.739 mls/hr 04/26/17 11:00 04/28/17 12 :45 Sodium Chloride IV 50.739 mls/hr Q24H [facility] Administration Pantoprazole Sodium 40 mg 04/14/17 10:30 04/28/17 09:51 Protonix Susp NG 40 mg DAILY [facility] Administration Thiamine HCl 200 mg 04/13/17 21:00 04/28/17 09:52 Vitamin B1 Tab PO 200 mg Q12H [facility] Administration - Patient Studies Lab Studies: Lab Studies 04/28/17 04/28/17 04/28/17 Range/Units 04:33 04:33 04:00 WBC 17.0 H (4.8-10.8) K/uL RBC 3.05 L (3.80-5.20) Mil/uL Hgb 8.7 L (12.0-16.0) g/dL Hct 26.0 L (34.0-47.0) % MCV 85.2 (81.0-99.0) fl MCH 28.4 (27.0-31.0) pg MCHC 33.3 (33.0-37.0) g/dL RDW 17.1 H (11.5-14.5) % Plt Count 205 (130-400) K/uL MPV 8.8 (7.2-11.7) fl Neut % (Auto) 95.3 H (50.0-75.0) % Lymph % (Auto) 1.8 L (20.0-40.0) % [place] % (Auto) 2.6 (0.0-10.0) % Eos % (Auto) 0.0 (0.0-4.0) % Baso % (Auto) 0.3 (0.0-2.0) % Neut # 16.2 H (1.8-7.0) K/uL Lymph # 0.3 L (1.0-4.3) K/uL [place] # 0.4 (0.0-0.8) K/uL Eos # 0.0 (0.0-0.7) K/uL Baso # 0.0 (0.0-0.2) K/uL Neutrophils % (Manual) 89 H (42-75) % Band Neutrophils % 3 H (0-2) % Lymphocytes % (Manual) 5 L (20-50) % Monocytes % (Manual) 0 (0-10) % Metamyelocytes % 3 H (0-0) % Platelet Estimate Normal (NORMAL) Poikilocytosis (manual Slight Anisocytosis (manual) Slight Tear Drop Cells Slight Ovalocytes Slight Sodium 135 (132-148) mmol/l Potassium 3.5 L (3.6-5.0) MMOL/L Chloride 103 (98-107) mmol/L Carbon Dioxide 21 L (22-30) mmol/L Anion Gap 15 (10-20) BUN 62 H (7-17) mg/dl Creatinine 1.4 H (0.7-1.2) mg/dl Est GFR ( Amer) 48 Est GFR (Non-Af Amer) 39 Random Glucose 172 H (65-105) mg/dL Lactic Acid 1.3 (0.7-2.1) MMOL/L Calcium 8.0 L (8.4-10.2) mg/dL Phosphorus 6.2 H (2.5-4.5) mg/dl Magnesium 1.6 (1.6-2.3) MG/DL Total Bilirubin 0.5 (0.2-1.3) mg/dl AST 55 H D (14-36) U/L ALT 67 H (9-52) U/L Alkaline Phosphatase 259 H (38-126) U/L Total Protein 5.3 L (6.3-8.2) G/DL Albumin 2.8 L (3.5-5.0) g/dL Globulin 2.5 (2.2-3.9) gm/dL Albumin/Globulin Ratio 1.1 (1.0-2.1) Laboratory Results - last 24 hr 04/28/17 04/28/17 04/28/17 04:00 04:33 04:33 WBC 17.0 H RBC 3.05 L Hgb 8.7 L Hct 26.0 L MCV 85.2 MCH 28.4 MCHC 33.3 RDW 17.1 H Plt Count 205 MPV 8.8 Neut % (Auto) 95.3 H Lymph % (Auto) 1.8 L [place] % (Auto) 2.6 Eos % (Auto) 0.0 Baso % (Auto) 0.3 Neut # 16.2 H Lymph # 0.3 L [place] # 0.4 Eos # 0.0 Baso # 0.0 Neutrophils % (Manual) 89 H Band Neutrophils % 3 H Lymphocytes % (Manual) 5 L Monocytes % (Manual) 0 Metamyelocytes % 3 H Platelet Estimate Normal Poikilocytosis (manual Slight Anisocytosis (manual) Slight Tear Drop Cells Slight Ovalocytes Slight Sodium 135 Potassium 3.5 L Chloride 103 Carbon Dioxide 21 L Anion Gap 15 BUN 62 H Creatinine 1.4 H Est GFR ( Amer) 48 Est GFR (Non-Af Amer) 39 Random Glucose 172 H Lactic Acid 1.3 Calcium 8.0 L Phosphorus 6.2 H Magnesium 1.6 Total Bilirubin 0.5 AST 55 H D ALT 67 H Alkaline Phosphatase 259 H Total Protein 5.3 L Albumin 2.8 L Globulin 2.5 Albumin/Globulin Ratio 1.1 Fingerstick Blood Sugar Results: 221 Review of Systems - Review of Systems All systems: reviewed and no additional remarkable complaints except (as above) Critical Care Progress Note - Ventilator Checklist Head of Bed 30 Degrees: Yes Daily Sedation Vacation: Yes Daily Assessment of Readiness to Wean: Yes Daily Spontaneous Breathing Trial: Yes PUD Prophalyxis: Yes DVT Prophylaxis: Yes Oral Care with Chlorhexidine Gluconate {CHG}: Yes - Vent Settings MODE:: ASSIST CONTROL TIDAL VOLUME:: 450 RESP RATE:: 14 FIO2:: 40 PEEP:: 5 - Extremities/Vascular Does the Patient have a Central Venous Catheter?: Yes Insertion Site: PICC Does the Patient need a Central Venous Catheter?: Yes Does the Patient have a Overton Catheter?: Yes Does the Patient need a Overton Catheter?: Yes Catheter Insertion Criteria: Need for accurate measurement of output in critically ill patient - Prophylaxis GI Prophylaxis GI: PPI - Prophylaxis DVT Prophylaxis DVT: Heparin SQ - Nutrition Nutrition: Nutrition Category Date Time Status NPO Diet [DIET] Diets 04/19/17 Breakfast Active
[2017-04-28] MEDS ORDERED: Magnesium Sulfate 1 gm in D5W 1 GM/100 ML BAG IVPB ONE (14:12)
--- NOTE | 2017-04-28 15:02 | CP.PCM.PN ---
Subjective - Date & Time of Evaluation Date of Evaluation: 04/28/17 Time of Evaluation: 09:30 - Subjective Subjective: F/U Respiratory failure. follows with eyes verbal stimulation Objective - Vital Signs/Intake and Output Vital Signs (last 24 hours): Temp Pulse Resp BP Pulse Ox 97.6 F 106 H 54 H 140/72 99 04/28/17 12:00 04/28/17 12:00 04/28/17 12:00 04/28/17 12:00 04/28/17 12:00 Intake and Output: 04/28/17 04/28/17 06:59 18:59 Intake Total 2495 Output Total 2100 Balance 395 - Medications Medications: Current Medications Ascorbic Acid (Vitamin C 500 Mg Tab) 1,500 mg PO Q6 [facility] Last Admin: 04/28/17 09:52 Dose: 1,500 mg Collagenase (Santyl) 1 applic TOP Q12 [facility] Last Admin: 04/28/17 09:51 Dose: 1 applic Dimethicone (Proshield Plus Skin Protectant) 1 applic TOP Q8 [facility] Last Admin: 04/28/17 09:50 Dose: 1 applic Heparin Sodium (Porcine) (Heparin) 5,000 units SC Q12 [facility] PRN Reason: Protocol Last Admin: 04/28/17 09:50 Dose: 5,000 units Hydrocortisone Sodium Succinate (Solu-Cortef) 40 mg IV Q12 [facility] Last Admin: 04/28/17 09:51 Dose: 40 mg Clindamycin in NS (Clindamycin 300 Mg/50 Ml-Ns) 300 mg in 50 mls @ 50 mls/hr IVPB Q12 [facility] PRN Reason: Protocol Last Admin: 04/28/17 09:49 Dose: 50 mls/hr Linezolid (Zyvox 600mg/300ml D5w) 600 mg in 300 mls @ 300 mls/hr IVPB Q12 [facility] PRN Reason: Protocol Last Admin: 04/28/17 09:53 Dose: 300 mls/hr Tobramycin Sulfate 60 mg/ (Sodium Chloride) 51.5 mls @ 50.739 mls/hr IV Q24H [facility] Last Admin: 04/28/17 12:45 Dose: 50.739 mls/hr Magnesium Sulfate/Dextrose (Magnesium Sulfate 1 Gm/100 Ml D5w) 1 gm in 100 mls @ 100 mls/hr IVPB ONCE ONE PRN Reason: 1 GM/HR Stop: 04/28/17 15:11 Pantoprazole Sodium (Protonix Susp) 40 mg NG DAILY [facility] Last Admin: 04/28/17 09:51 Dose: 40 mg Thiamine HCl (Vitamin B1 Tab) 200 mg PO Q12H [facility] Last Admin: 04/28/17 09:52 Dose: 200 mg - Labs Labs: 04/28/17 04:00 04/28/17 04:33 PT 15.8 Seconds (9.8-13.1) H 04/14/17 04:20 INR 1.4 (0.9-1.2) H 04/14/17 04:20 APTT 33.0 Seconds (25.6-37.1) 04/14/17 04:20 - Constitutional Appears: No Acute Distress, Chronically Ill - Eye Exam Eye Exam: PERRL - ENT Exam ENT Exam: Normal Exam - Neck Exam Additional comments: Tracheostomy. - Respiratory Exam Respiratory Exam: Decreased Breath Sounds (at bases), Rhonchi (scattered) - Cardiovascular Exam Cardiovascular Exam: REGULAR RHYTHM - GI/Abdominal Exam GI & Abdominal Exam: Soft, Normal Bowel Sounds - Extremities Exam Extremities Exam: Pedal Edema Additional comments: L heel and R lateral ankle DTI, MSAD posterior thigh. - Back Exam Additional comments: MSAD buttock, sacrum, R flank. - Neurological Exam Additional comments: Eyes open to verbal stimuli, minimal spontaneous movements. - Skin Skin Exam: Warm Assessment and Plan (1) Acute respiratory failure Status: Acute (2) Status post tracheostomy Status: Acute (3) Shock Status: Deleted (4) Pneumonia Status: Acute (5) Acute renal failure (ARF) Status: Acute (6) Anemia Status: Acute (7) Hematuria, gross Status: Deleted (8) Thrombocytopenia Status: Resolved (9) History of pulmonary embolus (PE) Status: Acute (10) Pancolitis Status: Deleted (11) UTI (urinary tract infection) Status: Deleted - Assessment and Plan (Free Text) Plan: continue Clinda , Tobra , Zyvox , attempt of weaning , had trial of CPAP- PS
[2017-04-29] MEDS: Proshield Plus GEL TOP SCH ×3 (01:57→17:04)
[2017-04-29] MEDS: Potassium Chl 40 mEq in D5-1/2 1,000 ML IV SCH ×3 (02:33→18:07)
[2017-04-29 05:50] LABS: ABG ALLEN TEST YES; ABG MECHANICAL RATE 14; ARTERIAL BLOOD GAS MODE PRVC AC; ARTERIAL BLOOD GAS O2 CAPACITY 11.3 mL/dL (16-24); ARTERIAL BLOOD GAS O2 CONTENT 11.4 ML/dL (15-23); ARTERIAL BLOOD GAS PH 7.35 (7.35-7.45); ARTERIAL BLOOD GAS PO2 120 mm/Hg (80-100); ARTERIAL BLOOD HGB O2 SAT 96.7 % (95.0-98.0); ATERIAL BLOOD GAS PEEP 5; CARBOXYHEMOGLOBIN 2.2 % (0.5-1.5); HHB -0.7 % (0.0-5.0); METHEMOGLOBIN 1.8 % (0.0-3.0)
[2017-04-29 05:50] LABS: HEMATOCRIT 23.9 % (34.0-47.0); MEAN CELL VOLUME 85.9 fl (81.0-99.0); MEAN CORPUSCULAR HEMOGLOBIN 27.7 pg (27.0-31.0); MEAN CORPUSCULAR HGB CONC 32.3 g/dL (33.0-37.0); RED CELL DISTRIBUTION WIDTH 17.2 % (11.5-14.5); WHITE BLOOD COUNT 15.8 K/uL (4.8-10.8)
[2017-04-29 05:57] LABS: ALB/GLOB RATIO 1.1 (1.0-2.1); BILIRUBIN,TOTAL 0.5 mg/dl (0.2-1.3); CALCIUM 8.1 mg/dL (8.4-10.2); POTASSIUM 3.7 MMOL/L (3.6-5.0); TOTAL PROTEIN 5.4 G/DL (6.3-8.2)
[2017-04-29] MEDS: Clindamycin in NS 300 MG/50 ML BAG IVPB SCH ×2 (09:37→20:23)
[2017-04-29] MEDS: Pantoprazole 40 mg Susp UD NG SCH (09:39)
[2017-04-29] MEDS: Santyl Collagenase OINTMENT TOP SCH ×2 (09:39→20:23)
[2017-04-29] MEDS: Linezolid 600 mg in D5W 300 ml 600 MG/300 ML BAG IVPB SCH ×2 (09:43→20:37)
--- NOTE | 2017-04-29 10:04 | RAD ---
HISTORY: on mechanical ventilator COMPARISON: No prior. FINDINGS: LUNGS: Pulmonary vascular congestion. Bibasilar atelectasis. PLEURA: Small bilateral pleural effusions. No pneumothorax apparent. CARDIOVASCULAR: Normal. OSSEOUS STRUCTURES: No significant abnormalities. VISUALIZED UPPER ABDOMEN: Normal. OTHER FINDINGS: Tracheostomy, unchanged. Nasogastric tube, unchanged. IMPRESSION: Pulmonary vascular congestion with small bilateral pleural effusions. Stable tubes and lines.
[2017-04-29] MEDS: TOBRAMYCIN IV SCH (12:00)
[2017-04-29] MEDS: SODIUM CHLORIDE 0.9% IV SCH (12:00)
--- NOTE | 2017-04-29 12:10 | CP.CCUPN ---
CCU Subjective - Physician Review Subjective (Free Text): Responsive and briefly opens eyes when stimulated, other times spontaneously awake and interacts with . Tolerated return to CPAP 5, PS 15 yesterday for several hours and returned to AC mode for rest. Urine output is excellent now. Other vitals and I/O's reviewed. No fever spikes last 48H. Fluid balance : positve 0.6L. ROS: Unobtainable from intubated Patient. No other pertinent negs or positives on 10+ system review. PMSFH: All Nursing and physician documentation reviewed to date; no new pertinent info noted relevant to current medical problems. CXR: essentially unchanged and stable: trach tube position ok within tracheal air column, no new consolidation ( my interp). MAJOR PROBLEMS: 1. +Kleb pneumoniae (ESBL) and E. faecalis Bacteremia 2. Septic Shock 2 #1 3. Acute Renal Failure / ATN 4. Acute Resp Failure, 2 pneumonia 5. Thrombocytopenia / Coagulopathy PLAN: 1. MV weans again as tolerated to trach collar. 2. Repeat K levels improved, will supplement Mag. Stop IVFs, serum Na levels have normalized, continue hydration with enteral feed water. 3. Seizure precautions. 4. Tapered hydrocortisone, continue Vit C and Thiamine. 5. Abx coverage as per ID: Zyvox / Clinda/ Tobra. 6. Needs PEG. 7. LTAC consideration. CCU Objective - Vital Signs / Intake & Output Vital Signs (Last 4 hours): Afebrile, HR 97, RR 24 on MV, SPO2 99% Intake and Output (Last 8hrs): Intake & Output 04/28/17 04/29/17 04/29/17 22:59 06:59 14:59 Intake Total 580 2440 Output Total 1400 1550 Balance -820 890 Intake: IV 300 750 Intake, Piggyback 350 Oral 140 Tube Feeding 140 840 Free Water Flush 500 Output: Urine 1400 1550 Urethral (Overton) 1400 1550 Other: # Bowel Movements 2 - Physical Exam Head: Positive for: Atraumatic, Normocephalic. Negative for: Tenderness, Contusion Pupils: Positive for: PERRL. Negative for: Sluggish, Non-Reactive Extroacular Muscles: Negative for: Gaze Palsy Conjunctiva: Positive for: Normal. Negative for: Injected, Icteric Mouth: Positive for: Dry (bloody) Neck: Negative for: JVD Respiratory/Chest: Positive for: Decreased Breath Sounds, Rhonchi. Negative for : Accessory Muscle Use, Wheezes Cardiovascular: Positive for: Tachycardic. Negative for: Murmurs, Rub Abdomen: Positive for: Distention, Normal Bowel Sounds. Negative for: Tenderness Upper Extremity: Positive for: Edema Lower Extremity: Positive for: Edema. Negative for: CALF TENDERNESS, NORMAL PULSES, Cyanosis Neurological: Positive for: Other (on ventilator) Skin: Positive for: Warm, Dry. Negative for: Rashes Psychiatric: Positive for: Alert - Medications Active Medications: Active Medications Generic Name Dose Route Start Last Admin Trade Name Freq PRN Reason Stop Dose Admin Ascorbic Acid 1,500 mg 04/13/17 10:00 04/29/17 09:42 Vitamin C 500 Mg Tab PO 1,500 mg Q6 [facility] Administration Collagenase 1 applic 04/25/17 21:00 04/29/17 09:39 Santyl TOP 1 applic Q12 [facility] Administration Dimethicone 1 applic 04/25/17 17:00 04/29/17 09:39 Proshield Plus Skin Protectant TOP 1 applic Q8 [facility] Administration Hydrocortisone Sodium Succinate 40 mg 04/27/17 21:00 04/29/17 09:40 Solu-Cortef IV 40 mg Q12 [facility] Administration Clindamycin in NS 300 mg in 50 mls @ 50 mls/hr 04/19/17 21:00 04/29/17 09:37 Clindamycin 300 Mg/50 Ml-Ns IVPB 50 mls/hr Q12 [facility] Administration Protocol Linezolid 600 mg in 300 mls @ 300 mls/hr 04/25/17 21:00 04/29/17 09:43 Zyvox 600mg/300ml D5w IVPB 300 mls/hr Q12 [facility] Administration Protocol Tobramycin Sulfate 60 mg/ 51.5 mls @ 50.739 mls/hr 04/26/17 11:00 04/28/17 12 :45 Sodium Chloride IV 50.739 mls/hr Q24H [facility] Administration Potassium Chloride/Dextrose/Sod Cl 1,000 mls @ 75 mls/hr 04/29/17 02:00 04/29 02:33 Potassium Chl 40 Meq In D5-1/2ns IV 04/30/17 01:53 75 mls/hr .[id number] [facility] Administration Pantoprazole Sodium 40 mg 04/14/17 10:30 04/29/17 09:39 Protonix Susp NG 40 mg DAILY [facility] Administration Thiamine HCl 200 mg 04/13/17 21:00 04/29/17 09:42 Vitamin B1 Tab PO 200 mg Q12H [facility] Administration - Patient Studies Lab Studies: Microbiology Studies 04/28/17 Unknown Blood Culture - Preliminary Blood NO GROWTH AFTER 24 HOURS Lab Studies 04/29/17 04/29/17 04/29/17 Range/Units 05:42 04:20 04:20 WBC 15.8 H (4.8-10.8) K/uL RBC 2.78 L (3.80-5.20) Mil/uL Hgb 7.7 L (12.0-16.0) g/dL Hct 23.9 L (34.0-47.0) % MCV 85.9 (81.0-99.0) fl MCH 27.7 (27.0-31.0) pg MCHC 32.3 L (33.0-37.0) g/dL RDW 17.2 H (11.5-14.5) % Plt Count 214 (130-400) K/uL pCO2 39 (35-45) mm/Hg pO2 120 H (80-100) mm/Hg HCO3 22.0 (21-28) mmol/L ABG pH 7.35 (7.35-7.45) ABG Total CO2 22.7 (22-28) mmol/L ABG O2 Saturation 100.7 H (95-98) % ABG O2 Content 11.4 L (15-23) ML/dL ABG Base Excess -3.8 L (-2.0-3.0) mmol/L ABG Hemoglobin 8.2 L (11.7-17.4) g/dL ABG Carboxyhemoglobin 2.2 H (0.5-1.5) % POC ABG HHb (Measured) -0.7 L (0.0-5.0) % ABG Methemoglobin 1.8 (0.0-3.0) % ABG O2 Capacity 11.3 L (16-24) mL/dL Domingo Test Yes A-a O2 Difference 116.0 mm/Hg Hgb O2 Saturation 96.7 (95.0-98.0) % Vent Mode Prvc ac Mechanical Rate 14 FiO2 40.0 % Tidal Volume 450 PEEP 5 Sodium 139 (132-148) mmol/l Potassium 3.7 (3.6-5.0) MMOL/L Chloride 105 (98-107) mmol/L Carbon Dioxide 23 (22-30) mmol/L Anion Gap 15 (10-20) BUN 54 H (7-17) mg/dl Creatinine 1.2 (0.7-1.2) mg/dl Est GFR ( Amer) 57 Est GFR (Non-Af Amer) 47 Random Glucose 169 H (65-105) mg/dL Calcium 8.1 L (8.4-10.2) mg/dL Total Bilirubin 0.5 (0.2-1.3) mg/dl AST 53 H (14-36) U/L ALT 80 H (9-52) U/L Alkaline Phosphatase 245 H (38-126) U/L Total Protein 5.4 L (6.3-8.2) G/DL Albumin 2.8 L (3.5-5.0) g/dL Globulin 2.6 (2.2-3.9) gm/dL Albumin/Globulin Ratio 1.1 (1.0-2.1) Laboratory Results - last 24 hr 04/29/17 04/29/17 04/29/17 04:20 04:20 05:42 WBC 15.8 H RBC 2.78 L Hgb 7.7 L Hct 23.9 L MCV 85.9 MCH 27.7 MCHC 32.3 L RDW 17.2 H Plt Count 214 pCO2 39 pO2 120 H HCO3 22.0 ABG pH 7.35 ABG Total CO2 22.7 ABG O2 Saturation 100.7 H ABG O2 Content 11.4 L ABG Base Excess -3.8 L ABG Hemoglobin 8.2 L ABG Carboxyhemoglobin 2.2 H POC ABG HHb (Measured) -0.7 L ABG Methemoglobin 1.8 ABG O2 Capacity 11.3 L Domingo Test Yes A-a O2 Difference 116.0 Hgb O2 Saturation 96.7 Vent Mode Prvc ac Mechanical Rate 14 FiO2 40.0 Tidal Volume 450 PEEP 5 Sodium 139 Potassium 3.7 Chloride 105 Carbon Dioxide 23 Anion Gap 15 BUN 54 H Creatinine 1.2 Est GFR ( Amer) 57 Est GFR (Non-Af Amer) 47 Random Glucose 169 H Calcium 8.1 L Total Bilirubin 0.5 AST 53 H ALT 80 H Alkaline Phosphatase 245 H Total Protein 5.4 L Albumin 2.8 L Globulin 2.6 Albumin/Globulin Ratio 1.1 Fingerstick Blood Sugar Results: 221 Review of Systems - Review of Systems Systems not reviewed;Unavailable: Intubated (trach'ed.) Critical Care Progress Note - Nutrition Nutrition: Nutrition Category Date Time Status NPO Diet [DIET] Diets 04/19/17 Breakfast Active
--- NOTE | 2017-04-29 12:15 | CP.PCM.PN ---
Subjective - Date & Time of Evaluation Date of Evaluation: 04/29/17 Time of Evaluation: 12:12 - Subjective Subjective: No significant changes clinically Normal no vomiting reported. She remain on vent through a tracheostomy Objective - Vital Signs/Intake and Output Vital Signs (last 24 hours): Temp Pulse Resp BP Pulse Ox 99.1 F 79 8 L 95/44 L 97 04/29/17 08:00 04/29/17 08:00 04/29/17 08:00 04/29/17 08:00 04/29/17 08:00 Intake and Output: 04/29/17 04/29/17 06:59 18:59 Intake Total 2440 Output Total 1550 Balance 890 - Medications Medications: Current Medications Ascorbic Acid (Vitamin C 500 Mg Tab) 1,500 mg PO Q6 [facility] Last Admin: 04/29/17 09:42 Dose: 1,500 mg Collagenase (Santyl) 1 applic TOP Q12 [facility] Last Admin: 04/29/17 09:39 Dose: 1 applic Dimethicone (Proshield Plus Skin Protectant) 1 applic TOP Q8 [facility] Last Admin: 04/29/17 09:39 Dose: 1 applic Hydrocortisone Sodium Succinate (Solu-Cortef) 40 mg IV Q12 [facility] Last Admin: 04/29/17 09:40 Dose: 40 mg Clindamycin in NS (Clindamycin 300 Mg/50 Ml-Ns) 300 mg in 50 mls @ 50 mls/hr IVPB Q12 [facility] PRN Reason: Protocol Last Admin: 04/29/17 09:37 Dose: 50 mls/hr Linezolid (Zyvox 600mg/300ml D5w) 600 mg in 300 mls @ 300 mls/hr IVPB Q12 [facility] PRN Reason: Protocol Last Admin: 04/29/17 09:43 Dose: 300 mls/hr Tobramycin Sulfate 60 mg/ (Sodium Chloride) 51.5 mls @ 50.739 mls/hr IV Q24H [facility] Last Admin: 04/28/17 12:45 Dose: 50.739 mls/hr Potassium Chloride/Dextrose/Sod Cl (Potassium Chl 40 Meq In D5-1/2ns) 1,000 mls @ 75 mls/hr IV .[id number] [facility] Stop: 04/30/17 01:53 Last Admin: 04/29/17 02:33 Dose: 75 mls/hr Pantoprazole Sodium (Protonix Susp) 40 mg NG DAILY [facility] Last Admin: 04/29/17 09:39 Dose: 40 mg Thiamine HCl (Vitamin B1 Tab) 200 mg PO Q12H [facility] Last Admin: 04/29/17 09:42 Dose: 200 mg - Labs Labs: 04/29/17 04:20 04/29/17 04:20 PT 15.8 Seconds (9.8-13.1) H 04/14/17 04:20 INR 1.4 (0.9-1.2) H 04/14/17 04:20 APTT 33.0 Seconds (25.6-37.1) 04/14/17 04:20 - Constitutional Appears: No Acute Distress - ENT Exam ENT Exam: Mucous Membranes Moist - Respiratory Exam Respiratory Exam: Rhonchi. absent: Chest Wall Tenderness - Cardiovascular Exam Cardiovascular Exam: REGULAR RHYTHM. absent: JVD, Rubs - GI/Abdominal Exam GI & Abdominal Exam: Soft, Normal Bowel Sounds - Extremities Exam Extremities Exam: absent: Calf Tenderness - Back Exam Back Exam: absent: CVA tenderness (L), CVA tenderness (R) - Neurological Exam Neurological Exam: Altered Assessment and Plan (1) Acute renal injury due to circulatory failure Assessment & Plan: Patient is recovering from acute kidney injury serum creatinine came down to 1.2 Serum potassium corrected today. Serum sodium corrected Follow-up serum magnesium and electrolytes tomorrow. The remaining of the problem as is including respiratory failure status post septic shock. Antibiotics as noted. ID. Status post ovarian cancer surgery. Status: Acute (2) Altered mental status Status: Acute (3) GI bleed Status: Acute
--- NOTE | 2017-04-29 17:45 | CP.PCM.PN ---
Subjective - Date & Time of Evaluation Date of Evaluation: 04/29/17 Time of Evaluation: 12:30 - Subjective Subjective: F/U Respiratory failure / PNA follows with eyes verbal stimuli , Patient's at bedside Objective - Vital Signs/Intake and Output Vital Signs (last 24 hours): Temp Pulse Resp BP Pulse Ox 99.2 F 86 14 127/58 L 96 04/29/17 12:00 04/29/17 12:00 04/29/17 12:00 04/29/17 12:00 04/29/17 12:00 Intake and Output: 04/29/17 04/29/17 06:59 18:59 Intake Total 2440 Output Total 1550 Balance 890 - Medications Medications: Current Medications Ascorbic Acid (Vitamin C 500 Mg Tab) 1,500 mg PO Q6 [facility] Last Admin: 04/29/17 09:42 Dose: 1,500 mg Collagenase (Santyl) 1 applic TOP Q12 [facility] Last Admin: 04/29/17 09:39 Dose: 1 applic Dimethicone (Proshield Plus Skin Protectant) 1 applic TOP Q8 [facility] Last Admin: 04/29/17 17:04 Dose: 1 applic Hydrocortisone Sodium Succinate (Solu-Cortef) 40 mg IV Q12 [facility] Last Admin: 04/29/17 09:40 Dose: 40 mg Clindamycin in NS (Clindamycin 300 Mg/50 Ml-Ns) 300 mg in 50 mls @ 50 mls/hr IVPB Q12 [facility] PRN Reason: Protocol Last Admin: 04/29/17 09:37 Dose: 50 mls/hr Linezolid (Zyvox 600mg/300ml D5w) 600 mg in 300 mls @ 300 mls/hr IVPB Q12 [facility] PRN Reason: Protocol Last Admin: 04/29/17 09:43 Dose: 300 mls/hr Tobramycin Sulfate 60 mg/ (Sodium Chloride) 51.5 mls @ 50.739 mls/hr IV Q24H [facility] Last Admin: 04/29/17 12:00 Dose: 50.739 mls/hr Potassium Chloride/Dextrose/Sod Cl (Potassium Chl 40 Meq In D5-1/2ns) 1,000 mls @ 75 mls/hr IV .[id number] [facility] Stop: 04/30/17 01:53 Last Admin: 04/29/17 02:33 Dose: 75 mls/hr Pantoprazole Sodium (Protonix Susp) 40 mg NG DAILY [facility] Last Admin: 04/29/17 09:39 Dose: 40 mg Thiamine HCl (Vitamin B1 Tab) 200 mg PO Q12H [facility] Last Admin: 04/29/17 09:42 Dose: 200 mg - Labs Labs: 04/29/17 04:20 04/29/17 04:20 PT 15.8 Seconds (9.8-13.1) H 04/14/17 04:20 INR 1.4 (0.9-1.2) H 04/14/17 04:20 APTT 33.0 Seconds (25.6-37.1) 04/14/17 04:20 - Constitutional Appears: Chronically Ill - Head Exam Head Exam: NORMAL INSPECTION - Eye Exam Eye Exam: PERRL - ENT Exam ENT Exam: Normal Exam - Neck Exam Neck Exam: Normal Inspection - Respiratory Exam Respiratory Exam: Decreased Breath Sounds (at bases), Rhonchi (scattered) - Cardiovascular Exam Cardiovascular Exam: REGULAR RHYTHM - GI/Abdominal Exam GI & Abdominal Exam: Soft, Normal Bowel Sounds - Extremities Exam Extremities Exam: Pedal Edema Additional comments: L heel and R lateral ankle DTI, MSAD posterior thigh. - Back Exam Additional comments: MSAD buttock, sacrum, R flnk. - Neurological Exam Additional comments: Eyes open to verbal stimuli, minimal spontaneous movements. - Skin Skin Exam: Warm Assessment and Plan (1) Acute respiratory failure Status: Acute (2) Status post tracheostomy Status: Acute (3) Shock Status: Deleted (4) Pneumonia Status: Acute (5) Acute renal failure (ARF) Status: Acute (6) Anemia Status: Acute (7) Hematuria, gross Status: Deleted (8) Thrombocytopenia Status: Resolved (9) History of pulmonary embolus (PE) Status: Acute (10) Pancolitis Status: Deleted (11) UTI (urinary tract infection) Status: Deleted - Assessment and Plan (Free Text) Plan: back on PRVC - AC, continue Tobra, Zyvox , Clinda , Santyl , GI for evaluation of PEG tube
[2017-04-30] MEDS: Proshield Plus GEL TOP SCH ×3 (01:00→16:04)
[2017-04-30 05:45] LABS: ABG ALLEN TEST YES; ABG MECHANICAL RATE 14; ARTERIAL BLOOD GAS HCO3 22.9 mmol/L (21-28); ARTERIAL BLOOD GAS MODE A/C; ARTERIAL BLOOD GAS O2 CAPACITY 11.4 mL/dL (16-24); ARTERIAL BLOOD GAS O2 CONTENT 11.5 ML/dL (15-23); ARTERIAL BLOOD GAS PH 7.37 (7.35-7.45); ARTERIAL BLOOD GAS PO2 133 mm/Hg (80-100); ARTERIAL BLOOD HGB O2 SAT 97.4 % (95.0-98.0); ATERIAL BLOOD GAS PEEP 5; CARBOXYHEMOGLOBIN 2.3 % (0.5-1.5); METHEMOGLOBIN 1.2 % (0.0-3.0)
[2017-04-30 07:39] LABS: BASO % 0.2 % (0.0-2.0); EOS % 0.1 % (0.0-4.0); HEMATOCRIT 22.5 % (34.0-47.0); LYMPH # 0.3 K/uL (1.0-4.3); LYMPH % 2.2 % (20.0-40.0); MEAN CELL VOLUME 85.4 fl (81.0-99.0); MEAN CORPUSCULAR HEMOGLOBIN 28.5 pg (27.0-31.0); MEAN CORPUSCULAR HGB CONC 33.3 g/dL (33.0-37.0); MEAN PLATELET VOLUME 8.6 fl (7.2-11.7); MONO # 0.5 K/uL (0.0-0.8); MONO % 3.7 % (0.0-10.0); NEUT # 13.1 K/uL (1.8-7.0); NEUT % 93.8 % (50.0-75.0); PLATELET COUNT 256 K/uL (130-400); RED CELL DISTRIBUTION WIDTH 16.9 % (11.5-14.5)
--- NOTE | 2017-04-30 07:42 | CP.CCUPN ---
CCU Subjective - Physician Review Subjective (Free Text): Remains responsive and briefly opens eyes, interactive to simple commands. Tolerating CPAP 5, PS 15 trials now. Urine output is excellent overnight, no Lasix required. Also, having almost continuous flow of diarrhea. Other vitals and I/O's reviewed. No fever spikes last 48H. Fluid balance : 2.5L negative. ROS: Unobtainable from intubated Patient. No other pertinent negs or positives on 10+ system review. PMSFH: All Nursing and physician documentation reviewed to date; no new pertinent info noted relevant to current medical problems. CXR: essentially unchanged and stable: trach tube position ok within tracheal air column, no new consolidation ( my interp). MAJOR PROBLEMS: 1. +Kleb pneumoniae (ESBL) and E. faecalis Bacteremia 2. Septic Shock 2 #1 3. Acute Renal Failure / ATN 4. Acute Resp Failure, 2 pneumonia 5. Thrombocytopenia / Coagulopathy- near-resolved. PLAN: 1. MV weans again as tolerated to trach collar. 2. Repeat K levels improved. Awaiting today's lytes. Stopped IVFs and on water hydration via enteral tube feeds. Tube feeds have changed to bolus feeding to assess for any impact on diarrhea. 3. Seizure precautions. 4. Taper hydrocortisone, continue Vit C and Thiamine. 5. Abx coverage as per ID: Zyvox / Clinda/ Tobra. 6. LTAC consideration and possible semi-permanent feeding tube placememt. GI and Surg consultants to eval for best tube type and approach. CCU Objective - Vital Signs / Intake & Output Vital Signs (Last 4 hours): Vital Signs Temp Pulse Resp BP Pulse Ox 04/30/17 06:00 105 H 26 H 157/80 H 100 04/30/17 04:00 97.6 F 100 H 14 129/75 100 Intake and Output (Last 8hrs): Intake & Output 04/29/17 04/30/17 04/30/17 22:59 06:59 14:59 Intake Total 725 750 Output Total 2009 1999 Balance -1285 -1250 Intake: IV 225 600 Intake, Piggyback 350 Tube Feeding 150 150 Output: Urine 2009 1900 Urethral (Overton) 2009 1900 Stool 100 Other: # Bowel Movements 1 - Physical Exam Head: Positive for: Atraumatic, Normocephalic. Negative for: Tenderness, Contusion Pupils: Positive for: PERRL. Negative for: Sluggish, Non-Reactive Extroacular Muscles: Negative for: Gaze Palsy Conjunctiva: Positive for: Normal. Negative for: Injected, Icteric Mouth: Positive for: Dry (bloody) Neck: Negative for: JVD Respiratory/Chest: Positive for: Decreased Breath Sounds, Rhonchi. Negative for : Accessory Muscle Use, Wheezes Cardiovascular: Positive for: Tachycardic. Negative for: Murmurs, Rub Abdomen: Positive for: Distention, Normal Bowel Sounds. Negative for: Tenderness Upper Extremity: Positive for: Edema Lower Extremity: Positive for: Edema. Negative for: CALF TENDERNESS, NORMAL PULSES, Cyanosis Neurological: Positive for: Other (on ventilator) Skin: Positive for: Warm, Dry. Negative for: Rashes Psychiatric: Positive for: Alert - Medications Active Medications: Active Medications Generic Name Dose Route Start Last Admin Trade Name Freq PRN Reason Stop Dose Admin Ascorbic Acid 1,500 mg 04/13/17 10:00 04/30/17 04:20 Vitamin C 500 Mg Tab PO 1,500 mg Q6 [facility] Administration Collagenase 1 applic 04/25/17 21:00 04/29/17 20:23 Santyl TOP 1 applic Q12 [facility] Administration Dimethicone 1 applic 04/25/17 17:00 04/30/17 01:00 Proshield Plus Skin Protectant TOP 1 applic Q8 [facility] Administration Hydrocortisone Sodium Succinate 40 mg 04/27/17 21:00 04/29/17 20:30 Solu-Cortef IV 40 mg Q12 [facility] Administration Clindamycin in NS 300 mg in 50 mls @ 50 mls/hr 04/19/17 21:00 04/29/17 20:23 Clindamycin 300 Mg/50 Ml-Ns IVPB 50 mls/hr Q12 [facility] Administration Protocol Linezolid 600 mg in 300 mls @ 300 mls/hr 04/25/17 21:00 04/29/17 20:37 Zyvox 600mg/300ml D5w IVPB 300 mls/hr Q12 [facility] Administration Protocol Tobramycin Sulfate 60 mg/ 51.5 mls @ 50.739 mls/hr 04/26/17 11:00 04/29/17 12 :00 Sodium Chloride IV 50.739 mls/hr Q24H [facility] Administration Pantoprazole Sodium 40 mg 04/14/17 10:30 04/29/17 09:39 Protonix Susp NG 40 mg DAILY [facility] Administration Thiamine HCl 200 mg 04/13/17 21:00 04/29/17 20:31 Vitamin B1 Tab PO 200 mg Q12H [facility] Administration - Patient Studies Lab Studies: Microbiology Studies 04/28/17 Unknown Blood Culture - Preliminary Blood NO GROWTH AFTER 48 HOURS Lab Studies 04/30/17 04/29/17 04/29/17 Range/Units 05:35 21:25 16:02 pCO2 39 (35-45) mm/Hg pO2 133 H (80-100) mm/Hg HCO3 22.9 (21-28) mmol/L ABG pH 7.37 (7.35-7.45) ABG Total CO2 23.7 (22-28) mmol/L ABG O2 Saturation 101.0 H (95-98) % ABG O2 Content 11.5 L (15-23) ML/dL ABG Base Excess -2.6 L (-2.0-3.0) mmol/L ABG Hemoglobin 8.2 L (11.7-17.4) g/dL ABG Carboxyhemoglobin 2.3 H (0.5-1.5) % POC ABG HHb (Measured) -1.0 L (0.0-5.0) % ABG Methemoglobin 1.2 (0.0-3.0) % ABG O2 Capacity 11.4 L (16-24) mL/dL Domingo Test Yes A-a O2 Difference 103.0 mm/Hg Hgb O2 Saturation 97.4 (95.0-98.0) % Vent Mode A/c Mechanical Rate 14 FiO2 40.0 % Tidal Volume 450 PEEP 5 POC Glucose (mg/dL) 134 H 225 H (65-110) mg/dL Laboratory Results - last 24 hr 04/29/17 04/29/17 04/30/17 16:02 21:25 05:35 pCO2 39 pO2 133 H HCO3 22.9 ABG pH 7.37 ABG Total CO2 23.7 ABG O2 Saturation 101.0 H ABG O2 Content 11.5 L ABG Base Excess -2.6 L ABG Hemoglobin 8.2 L ABG Carboxyhemoglobin 2.3 H POC ABG HHb (Measured) -1.0 L ABG Methemoglobin 1.2 ABG O2 Capacity 11.4 L Domingo Test Yes A-a O2 Difference 103.0 Hgb O2 Saturation 97.4 Vent Mode A/c Mechanical Rate 14 FiO2 40.0 Tidal Volume 450 PEEP 5 POC Glucose (mg/dL) 225 H 134 H Fingerstick Blood Sugar Results: 221 Review of Systems - Review of Systems Systems not reviewed;Unavailable: Intubated Critical Care Progress Note - Ventilator Checklist Head of Bed 30 Degrees: Yes Daily Sedation Vacation: Yes Daily Assessment of Readiness to Wean: Yes Daily Spontaneous Breathing Trial: Yes PUD Prophalyxis: Yes DVT Prophylaxis: Yes Oral Care with Chlorhexidine Gluconate {CHG}: Yes - Vent Settings TIDAL VOLUME:: 450 RESP RATE:: 14 FIO2:: 40 PEEP:: 5 - Extremities/Vascular Does the Patient have a Central Venous Catheter?: Yes Insertion Site: PICC Does the Patient need a Central Venous Catheter?: Yes Does the Patient have a Overton Catheter?: Yes Does the Patient need a Overton Catheter?: Yes Catheter Insertion Criteria: Need for accurate measurement of output in critically ill patient - Prophylaxis GI Prophylaxis GI: PPI - Prophylaxis DVT Prophylaxis DVT: SCDs - Nutrition Nutrition: Nutrition Category Date Time Status NPO Diet [DIET] Diets 04/19/17 Breakfast Active
[2017-04-30 08:02] LABS: ALB/GLOB RATIO 0.9 (1.0-2.1); ALKALINE PHOSPHATASE 214 U/L (38-126); ALT/SGPT 69 U/L (9-52); AST/SGOT 40 U/L (14-36); BILIRUBIN,TOTAL 0.4 mg/dl (0.2-1.3); BLOOD UREA NITROGEN 42 mg/dl (7-17); CALCIUM 6.9 mg/dL (8.4-10.2); CARBON DIOXIDE 21 mmol/L (22-30); CHLORIDE 111 mmol/L (98-107); GFR AFRICAN-AMERICAN > 60; GLUCOSE,RANDOM 89 mg/dL (65-105); POTASSIUM 2.7 MMOL/L (3.6-5.0); SODIUM 142 mmol/l (132-148); TOTAL PROTEIN 4.9 G/DL (6.3-8.2)
[2017-04-30] MEDS ORDERED: Potassium Chloride 20 mEq/15 ml LIQ UD GT ONE (08:15)
[2017-04-30] MEDS ORDERED: Magnesium Sulfate 2 gm/50 ml 2 GM/50 ML BAG IV ONE (09:00)
[2017-04-30] MEDS: Clindamycin in NS 300 MG/50 ML BAG IVPB SCH ×2 (09:11→21:47)
[2017-04-30] MEDS: Linezolid 600 mg in D5W 300 ml 600 MG/300 ML BAG IVPB SCH ×2 (09:12→21:51)
[2017-04-30] MEDS: Pantoprazole 40 mg Susp UD NG SCH (09:13)
[2017-04-30] MEDS: Potassium CL 10 MEQ/50 ML 50 ML IVPB SCH ×6 (09:15→15:44)
[2017-04-30] MEDS: Santyl Collagenase OINTMENT TOP SCH ×2 (09:16→22:05)
[2017-04-30 11:14] LABS: METAMYELOCYTE 3 % (0-0); MYELOCYTE 4 % (0-0); NEUTROPHIL 79 % (42-75); TOTAL CELLS COUNTED 100
[2017-04-30 11:15] LABS: LARGE PLATELETS PRESENT
--- NOTE | 2017-04-30 12:02 | RAD ---
PROCEDURE: CHEST RADIOGRAPH, 1 VIEW HISTORY: pt intubated COMPARISON: Comparison chest dated 04/29/2017. TheNone available. FINDINGS: Re- demonstrated is in situ tracheostomy tube in good position. NGT is present, the tip of which has not been included on this film though distal aspect does lie well below EG junction. No change right sided PICC line with tip in the SVC. LUNGS: Low lung volumes with mild crowded bronchovascular markings and mild bibasilar atelectasis and or infiltrates. . . Small bilateral effusions. PLEURA: As above. No apparent pneumothorax. CARDIOVASCULAR: Normal. OSSEOUS STRUCTURES: No significant abnormalities. VISUALIZED UPPER ABDOMEN: Normal. OTHER FINDINGS: None. IMPRESSION: Support lines and tubes as above. Low lung volumes with mild crowded bronchovascular markings and mild bibasilar atelectasis and or infiltrates. . . Small bilateral effusions.
[2017-04-30] MEDS: TOBRAMYCIN IV SCH (13:37)
[2017-04-30] MEDS: SODIUM CHLORIDE 0.9% IV SCH (13:37)
--- NOTE | 2017-04-30 13:52 | CP.PCM.PN ---
Subjective - Date & Time of Evaluation Date of Evaluation: 04/30/17 - Subjective Subjective: no response to verbal stimuli today Objective - Vital Signs/Intake and Output Vital Signs (last 24 hours): Temp Pulse Resp BP Pulse Ox 97.2 F L 101 H 14 159/86 H 100 04/30/17 12:00 04/30/17 12:00 04/30/17 12:00 04/30/17 12:00 04/30/17 12:00 Intake and Output: 04/30/17 04/30/17 06:59 18:59 Intake Total 1475 1040 Output Total 1999 Balance -525 1040 - Medications Medications: Current Medications Ascorbic Acid (Vitamin C 500 Mg Tab) 1,500 mg PO Q6 [facility] Last Admin: 04/30/17 09:12 Dose: 1,500 mg Collagenase (Santyl) 1 applic TOP Q12 [facility] Last Admin: 04/30/17 09:16 Dose: 1 applic Dimethicone (Proshield Plus Skin Protectant) 1 applic TOP Q8 [facility] Last Admin: 04/30/17 09:15 Dose: 1 applic Hydrocortisone Sodium Succinate (Solu-Cortef) 40 mg IV Q12 [facility] Last Admin: 04/30/17 09:13 Dose: 40 mg Clindamycin in NS (Clindamycin 300 Mg/50 Ml-Ns) 300 mg in 50 mls @ 50 mls/hr IVPB Q12 [facility] PRN Reason: Protocol Last Admin: 04/30/17 09:11 Dose: 50 mls/hr Linezolid (Zyvox 600mg/300ml D5w) 600 mg in 300 mls @ 300 mls/hr IVPB Q12 [facility] PRN Reason: Protocol Last Admin: 04/30/17 09:12 Dose: 300 mls/hr Tobramycin Sulfate 60 mg/ (Sodium Chloride) 51.5 mls @ 50.739 mls/hr IV Q24H [facility] Last Admin: 04/30/17 13:37 Dose: 50.739 mls/hr Potassium Chloride (Potassium Cl 10meq/50ml Sterile Water) 50 mls @ 50 mls/hr IVPB Q1 [facility] Stop: 04/30/17 14:59 Last Admin: 04/30/17 13:36 Dose: 50 mls/hr Pantoprazole Sodium (Protonix Susp) 40 mg NG DAILY [facility] Last Admin: 04/30/17 09:13 Dose: 40 mg Thiamine HCl (Vitamin B1 Tab) 200 mg PO Q12H [facility] Last Admin: 04/30/17 09:12 Dose: 200 mg - Labs Labs: 04/30/17 05:25 04/30/17 05:20 PT 15.8 Seconds (9.8-13.1) H 04/14/17 04:20 INR 1.4 (0.9-1.2) H 04/14/17 04:20 APTT 33.0 Seconds (25.6-37.1) 04/14/17 04:20 - Constitutional Appears: Chronically Ill - Eye Exam Eye Exam: PERRL - ENT Exam ENT Exam: Normal Exam - Neck Exam Additional comments: Tracheostomy - Respiratory Exam Respiratory Exam: Decreased Breath Sounds (at bases) - Cardiovascular Exam Cardiovascular Exam: REGULAR RHYTHM - GI/Abdominal Exam GI & Abdominal Exam: Soft, Normal Bowel Sounds - Extremities Exam Extremities Exam: Pedal Edema Additional comments: L heel and R lateral ankle DTI, MSAD posterior thigh. - Back Exam Additional comments: MSAD buttock, sacral, R flnk. - Neurological Exam Additional comments: no response to verbal stimuli, generalized weakness - Skin Skin Exam: Warm Assessment and Plan (1) Acute respiratory failure Status: Acute (2) Status post tracheostomy Status: Acute (3) Shock Status: Deleted (4) Pneumonia Status: Acute (5) Acute renal failure (ARF) Status: Acute (6) Anemia Status: Acute (7) Hematuria, gross Status: Deleted (8) Thrombocytopenia Status: Resolved (9) History of pulmonary embolus (PE) Status: Acute (10) Pancolitis Status: Deleted (11) UTI (urinary tract infection) Status: Deleted - Assessment and Plan (Free Text) Plan: Tracheosstomy status , on PRVC AC , continue Clinda , Tobra , Zivox , f/u GI for PEG tube insertion
[2017-05-01] MEDS: Proshield Plus GEL TOP SCH ×3 (01:28→15:59)
[2017-05-01 02:44] LABS: BASO % 0.1 % (0.0-2.0); EOS % 0.1 % (0.0-4.0); HEMATOCRIT 21.1 % (34.0-47.0); LYMPH # 0.2 K/uL (1.0-4.3); LYMPH % 1.4 % (20.0-40.0); MEAN CELL VOLUME 86.3 fl (81.0-99.0); MEAN CORPUSCULAR HEMOGLOBIN 28.3 pg (27.0-31.0); MEAN CORPUSCULAR HGB CONC 32.8 g/dL (33.0-37.0); MEAN PLATELET VOLUME 8.4 fl (7.2-11.7); MONO # 0.3 K/uL (0.0-0.8); MONO % 2.3 % (0.0-10.0); NEUT # 12.7 K/uL (1.8-7.0); NEUT % 96.1 % (50.0-75.0); NRBC % 0.1 % (0.0-0.0); PLATELET COUNT 211 K/uL (130-400); RED CELL DISTRIBUTION WIDTH 17.7 % (11.5-14.5); WHITE BLOOD COUNT 13.2 K/uL (4.8-10.8)
[2017-05-01 03:04] LABS: PARTIAL THROMBOPLASTIN TIME 26.2 Seconds (25.6-37.1)
[2017-05-01 04:23] LABS: BASOPHIL 1 % (0-2); LARGE PLATELETS PRESENT; METAMYELOCYTE 3 % (0-0); MYELOCYTE 2 % (0-0); NEUTROPHIL 86 % (42-75); TOTAL CELLS COUNTED 100
[2017-05-01 04:25] LABS: STOMATOCYTES SLIGHT
[2017-05-01 04:55] LABS: HEMATOCRIT 21.2 % (34.0-47.0); MEAN CELL VOLUME 86.4 fl (81.0-99.0); MEAN CORPUSCULAR HEMOGLOBIN 27.8 pg (27.0-31.0); MEAN CORPUSCULAR HGB CONC 32.2 g/dL (33.0-37.0); RED CELL DISTRIBUTION WIDTH 17.4 % (11.5-14.5); WHITE BLOOD COUNT 12.3 K/uL (4.8-10.8)
[2017-05-01 05:26] LABS: BLOOD UREA NITROGEN 42 mg/dl (7-17); CALCIUM 8.2 mg/dL (8.4-10.2); CARBON DIOXIDE 23 mmol/L (22-30); CHLORIDE 108 mmol/L (98-107); GFR AFRICAN-AMERICAN > 60; GLUCOSE,RANDOM 112 mg/dL (65-105); POTASSIUM 3.6 MMOL/L (3.6-5.0); SODIUM 141 mmol/l (132-148)
[2017-05-01 05:57] LABS: ABG ALLEN TEST YES; ABG MECHANICAL RATE 14; ARTERIAL BLOOD GAS HCO3 23.8 mmol/L (21-28); ARTERIAL BLOOD GAS MODE A/C; ARTERIAL BLOOD GAS PH 7.42 (7.35-7.45); ARTERIAL BLOOD GAS PO2 170 mm/Hg (80-100); ARTERIAL BLOOD HGB O2 SAT 97.3 % (95.0-98.0); ATERIAL BLOOD GAS PEEP 5; CARBOXYHEMOGLOBIN 1.3 % (0.5-1.5); METHEMOGLOBIN 1.4 % (0.0-3.0)
--- NOTE | 2017-05-01 10:19 | RAD ---
HISTORY: reevaluate, trach and vent in use COMPARISON: Comparison made with chest radiograph dated 04/30/2017. FINDINGS: In situ tracheostomy tube in good position. No change right-sided PICC line tip in the SVC. In situ NGT, the tip of which has not been included on this film though distal aspect does lie well below EG junction. LUNGS: Poor inspiration with low lung volumes, crowded bronchovascular markings and bibasilar atelectasis. Probable small right-sided effusion. . PLEURA: No significant pleural effusion identified, no pneumothorax apparent. CARDIOVASCULAR: Normal. OSSEOUS STRUCTURES: No significant abnormalities. VISUALIZED UPPER ABDOMEN: Normal. OTHER FINDINGS: None. IMPRESSION: Support lines and tubes as above. Poor inspiration with low lung volumes, crowded bronchovascular markings and bibasilar atelectasis. Probable small right-sided effusion. .
[2017-05-01] MEDS: Clindamycin in NS 300 MG/50 ML BAG IVPB SCH ×2 (10:40→21:00)
[2017-05-01] MEDS: Pantoprazole 40 mg Susp UD NG SCH (10:41)
[2017-05-01] MEDS: Santyl Collagenase OINTMENT TOP SCH ×2 (10:42→21:48)
[2017-05-01] MEDS: SODIUM CHLORIDE 0.9% IV SCH (10:43)
[2017-05-01] MEDS: TOBRAMYCIN IV SCH (10:43)
[2017-05-01] MEDS: Linezolid 600 mg in D5W 300 ml 600 MG/300 ML BAG IVPB SCH ×2 (10:44→21:50)
--- NOTE | 2017-05-01 14:58 | CP.PCM.PN ---
Subjective - Date & Time of Evaluation Date of Evaluation: 05/01/17 Time of Evaluation: 11:00 - Subjective Subjective: Pt unresponsive to verbal stimuli. Objective - Vital Signs/Intake and Output Vital Signs (last 24 hours): Temp Pulse Resp BP Pulse Ox 98.0 F 108 H 15 142/77 100 05/01/17 12:00 05/01/17 12:00 05/01/17 12:00 05/01/17 12:00 05/01/17 12:00 Intake and Output: 05/01/17 05/01/17 06:59 18:59 Intake Total 1030 995 Output Total 1400 Balance -370 995 - Medications Medications: Current Medications Ascorbic Acid (Vitamin C 500 Mg Tab) 1,500 mg PO Q6 [facility] Last Admin: 05/01/17 10:44 Dose: 1,500 mg Collagenase (Santyl) 1 applic TOP Q12 [facility] Last Admin: 05/01/17 10:42 Dose: 1 applic Dimethicone (Proshield Plus Skin Protectant) 1 applic TOP Q8 [facility] Last Admin: 05/01/17 10:41 Dose: 1 applic Hydrocortisone Sodium Succinate (Solu-Cortef) 40 mg IV Q12 [facility] Last Admin: 05/01/17 10:42 Dose: 40 mg Clindamycin in NS (Clindamycin 300 Mg/50 Ml-Ns) 300 mg in 50 mls @ 50 mls/hr IVPB Q12 [facility] PRN Reason: Protocol Last Admin: 05/01/17 10:40 Dose: 50 mls/hr Linezolid (Zyvox 600mg/300ml D5w) 600 mg in 300 mls @ 300 mls/hr IVPB Q12 [facility] PRN Reason: Protocol Last Admin: 05/01/17 10:44 Dose: 300 mls/hr Tobramycin Sulfate 60 mg/ (Sodium Chloride) 51.5 mls @ 50.739 mls/hr IV Q24H [facility] Last Admin: 05/01/17 10:43 Dose: 50.739 mls/hr Pantoprazole Sodium (Protonix Susp) 40 mg NG DAILY [facility] Last Admin: 05/01/17 10:41 Dose: 40 mg Thiamine HCl (Vitamin B1 Tab) 200 mg PO Q12H [facility] Last Admin: 05/01/17 10:44 Dose: 200 mg - Labs Labs: 05/01/17 04:45 05/01/17 04:45 PT 12.1 Seconds (9.8-13.1) 05/01/17 02:35 INR 1.1 (0.9-1.2) 05/01/17 02:35 APTT 26.2 Seconds (25.6-37.1) 05/01/17 02:35 - Constitutional Appears: Chronically Ill - Head Exam Head Exam: NORMAL INSPECTION - Eye Exam Eye Exam: PERRL - ENT Exam ENT Exam: Normal Exam - Neck Exam Neck Exam: Normal Inspection - Respiratory Exam Respiratory Exam: Decreased Breath Sounds (at bases), Rhonchi (scattered) - Cardiovascular Exam Cardiovascular Exam: REGULAR RHYTHM - GI/Abdominal Exam GI & Abdominal Exam: Soft, Normal Bowel Sounds - Extremities Exam Extremities Exam: Pedal Edema Additional comments: L heel and R lateral ankle DTI, MSAD posterior thigh. - Back Exam Additional comments: MSAD buttock, sacrum, R flnk. - Neurological Exam Additional comments: No responding verbal stimuli, minimal movements to tactile stimuli. - Skin Skin Exam: Warm Assessment and Plan (1) Acute respiratory failure Status: Acute (2) Status post tracheostomy Status: Acute (3) Shock Status: Deleted (4) Pneumonia Status: Acute (5) Acute renal failure (ARF) Status: Acute (6) Anemia Status: Acute (7) Hematuria, gross Status: Deleted (8) Thrombocytopenia Status: Resolved (9) History of pulmonary embolus (PE) Status: Acute (10) Pancolitis Status: Deleted (11) UTI (urinary tract infection) Status: Deleted - Assessment and Plan (Free Text) Plan: Continue ventilatory support, on PRVC/ AC, continue Clinda, Zyvox and rest of Tx , f/u Hgb post transfusion.
[2017-05-02] MEDS: Proshield Plus GEL TOP SCH ×3 (01:00→17:30)
--- NOTE | 2017-05-02 04:58 | PN ---
DATE: 05/01/2017 LOCATION: The patient in ICU bed 423. SUBJECTIVE: Time spent 35 minutes. The patient is seen and evaluated at the bedside. Events since admission noted. Past medical, surgical and social history reviewed over night, afebrile. Telemetry sinus rhythm, normotensive, saturating 100% on ventilator through tracheostomy site, AC/PRVC, rate 14, tidal volume of 450 mL with FiO2 of 40%, observed rate of 15, tidal volume exhaled 420, minute ventilation 6 L, saturating 100%, peak airway pressure 20. Vital signs temperature 97.6, heart rate 104, blood pressure 135/82, saturation 100%, end-tidal CO2 of 32. Intake 2710, output 3400, negative balance 690. Weight 175 pounds. PHYSICAL EXAMINATION: GENERAL: Remains more responsive, briefly opens eyes, minimal interaction to simple commands. HEAD, EYES, EARS, NOSE AND THROAT: Atraumatic, normocephalic. Pupils are reactive. Extraocular muscles intact. Conjunctivae pale. Mucosa dry. NECK: Supple. CHEST: Bilateral breath sounds diminished in intensity. Scattered rhonchi. HEART: Rhythm regular. S1, S2 normal. ABDOMEN: Bowel sounds are present. Mild distention in upper extremity, positive for edema. LABORATORY DATA: WBC 12.3, hemoglobin 6.8, hematocrit 21.2, platelet count 219. PT 12.1, INR 1.1, PTT 26.2. ABG, pH of 7.42, pCO2 of 35, pO2 170, oxygen saturation 100%. On AC 14/450, 40% with a PEEP of 5. SMA-7, sodium 141, potassium 3.6, chloride 108, CO2 of 23, blood urea nitrogen 42, creatinine 1.1, random glucose 112, calcium 8.2. Urinalysis, rbc 83, wbc occasional. Toxicology, vancomycin trough level 14.5. Serology, hepatitis B and C negative. IMPRESSION: Extended-spectrum beta-lactamase Klebsiella pneumonia and Enterococcus faecalis bacteremia; resolving septic shock; acute renal failure, improved secondary to prerenal, improved with hydration; thrombocytopenia; coagulopathy, improved. Continue weaning as tolerated. Wean off systemic steroid. On vitamin C and thiamine, antibiotics Zyvox and clindamycin, tobramycin as per ID consult. The patient noted to have profuse diarrhea, unable to keep *------*. May need colostomy to prevent soiling of the sacral as well as the right upper body skin breakdown to discuss with Surgery and GI regarding percutaneous endoscopic gastroscopic tube and/or colostomy Timothy Gunderson MD
[2017-05-02 05:06] LABS: HEMATOCRIT 30.3 % (34.0-47.0); MEAN CELL VOLUME 84.9 fl (81.0-99.0); MEAN CORPUSCULAR HEMOGLOBIN 27.6 pg (27.0-31.0); MEAN CORPUSCULAR HGB CONC 32.5 g/dL (33.0-37.0); RED CELL DISTRIBUTION WIDTH 16.7 % (11.5-14.5); WHITE BLOOD COUNT 12.3 K/uL (4.8-10.8)
[2017-05-02 05:23] LABS: BLOOD UREA NITROGEN 39 mg/dl (7-17); CALCIUM 8.2 mg/dL (8.4-10.2); CARBON DIOXIDE 23 mmol/L (22-30); CHLORIDE 105 mmol/L (98-107); GFR AFRICAN-AMERICAN > 60; GLUCOSE,RANDOM 149 mg/dL (65-105); POTASSIUM 2.7 MMOL/L (3.6-5.0); SODIUM 141 mmol/l (132-148)
[2017-05-02] MEDS ORDERED: Potassium Chl 20 mEq in D5-NS 1,000 ML IV SCH (08:00)
--- NOTE | 2017-05-02 09:01 | CP.PCM.PN ---
Subjective - Date & Time of Evaluation Date of Evaluation: 05/02/17 Time of Evaluation: 08:57 - Subjective Subjective: Patient will remain on respiratory rate through the tracheostomy. Patient is opening her eyes at time. Vital sign noted . still having diarrhea as reported. Objective - Vital Signs/Intake and Output Vital Signs (last 24 hours): Temp Pulse Resp BP Pulse Ox 97.5 F L 106 H 15 145/78 100 05/02/17 08:00 05/02/17 08:00 05/02/17 08:00 05/02/17 08:00 05/02/17 08:00 Intake and Output: 05/02/17 05/02/17 06:59 18:59 Intake Total 916 Output Total 1750 Balance -834 - Medications Medications: Current Medications Ascorbic Acid (Vitamin C 500 Mg Tab) 1,500 mg PO Q6 [facility] Last Admin: 05/02/17 03:43 Dose: 1,500 mg Collagenase (Santyl) 1 applic TOP Q12 [facility] Last Admin: 05/01/17 21:48 Dose: 1 applic Dimethicone (Proshield Plus Skin Protectant) 1 applic TOP Q8 [facility] Last Admin: 05/02/17 01:00 Dose: 1 applic Hydrocortisone Sodium Succinate (Solu-Cortef) 40 mg IV Q12 [facility] Last Admin: 05/01/17 21:48 Dose: 40 mg Clindamycin in NS (Clindamycin 300 Mg/50 Ml-Ns) 300 mg in 50 mls @ 50 mls/hr IVPB Q12 [facility] PRN Reason: Protocol Last Admin: 05/01/17 21:00 Dose: 50 mls/hr Linezolid (Zyvox 600mg/300ml D5w) 600 mg in 300 mls @ 300 mls/hr IVPB Q12 [facility] PRN Reason: Protocol Last Admin: 05/01/17 21:50 Dose: 300 mls/hr Tobramycin Sulfate 60 mg/ (Sodium Chloride) 51.5 mls @ 50.739 mls/hr IV Q24H [facility] Last Admin: 05/01/17 10:43 Dose: 50.739 mls/hr Potassium Chloride/Dextrose/Sod Cl (Potassium Chl 20 Meq In D5-Ns) 1,000 mls @ 40 mls/hr IV .Q24H [facility] Stop: 05/03/17 07:58 Potassium Chloride (Potassium Cl 10meq/50ml Sterile Water) 50 mls @ 50 mls/hr IVPB Q1 [facility] Stop: 05/02/17 09:59 Potassium Chloride (Potassium Cl 10meq/50ml Sterile Water) 50 mls @ 50 mls/hr IVPB Q1 [facility] Stop: 05/02/17 10:59 Pantoprazole Sodium (Protonix Susp) 40 mg NG DAILY [facility] Last Admin: 05/01/17 10:41 Dose: 40 mg Thiamine HCl (Vitamin B1 Tab) 200 mg PO Q12H [facility] Last Admin: 05/01/17 21:49 Dose: 200 mg - Labs Labs: 05/02/17 04:20 05/02/17 04:20 PT 12.1 Seconds (9.8-13.1) 05/01/17 02:35 INR 1.1 (0.9-1.2) 05/01/17 02:35 APTT 26.2 Seconds (25.6-37.1) 05/01/17 02:35 - Constitutional Appears: No Acute Distress - ENT Exam ENT Exam: Mucous Membranes Moist - Respiratory Exam Respiratory Exam: absent: Chest Wall Tenderness - Cardiovascular Exam Cardiovascular Exam: absent: JVD, Rubs - GI/Abdominal Exam GI & Abdominal Exam: Soft, Normal Bowel Sounds - Extremities Exam Extremities Exam: absent: Calf Tenderness - Back Exam Back Exam: absent: CVA tenderness (L), CVA tenderness (R) - Neurological Exam Neurological Exam: Altered Assessment and Plan (1) Acute renal injury due to circulatory failure Assessment & Plan: Patient recovers from acute kidney injury serum creatinine stable. Severe hypokalemia perhaps related to hypomagnesemia and diarrhea. Patient to be given stat 40 mEq 4 runs of potassium chloride. Waiting for serum magnesium level patient most likely needed magnesium intravenously as well when the levels come back. The rest of the problem as noted Status post acute kidney failure status post dialysis no longer needed. Status post septic shock patient still on antibiotics. Respiratory failure. Status post ovarian cancer surgery in the past. Status: Acute (2) Altered mental status Status: Acute (3) GI bleed Status: Acute
[2017-05-02] MEDS: Clindamycin in NS 300 MG/50 ML BAG IVPB SCH ×2 (09:03→21:16)
[2017-05-02] MEDS: Linezolid 600 mg in D5W 300 ml 600 MG/300 ML BAG IVPB SCH ×2 (09:05→21:17)
[2017-05-02] MEDS: Potassium CL 10 MEQ/50 ML 50 ML IVPB SCH ×4 (09:23→12:20)
[2017-05-02] MEDS: Pantoprazole 40 mg Susp UD NG SCH (09:35)
[2017-05-02] MEDS: Santyl Collagenase OINTMENT TOP SCH ×2 (09:37→21:18)
[2017-05-02 10:06] LABS: MAGNESIUM 1.5 MG/DL (1.6-2.3)
[2017-05-02] MEDS: SODIUM CHLORIDE 0.9% IV SCH ×2 (10:31→21:16)
[2017-05-02] MEDS: TOBRAMYCIN IV SCH (10:31)
--- NOTE | 2017-05-02 16:16 | CP.PCM.PN ---
Subjective - Date & Time of Evaluation Date of Evaluation: 05/02/17 Time of Evaluation: 10:15 - Subjective Subjective: F/U respiratory failure. Pt no responding to verbal stimuli. Objective - Vital Signs/Intake and Output Vital Signs (last 24 hours): Temp Pulse Resp BP Pulse Ox 98.2 F 114 H 16 154/78 H 99 05/02/17 12:00 05/02/17 14:00 05/02/17 14:00 05/02/17 14:00 05/02/17 14:00 Intake and Output: 05/02/17 05/02/17 06:59 18:59 Intake Total 916 1410 Output Total 1750 Balance -834 1410 - Medications Medications: Current Medications Ascorbic Acid (Vitamin C 500 Mg Tab) 1,500 mg PO Q6 [facility] Last Admin: 05/02/17 09:37 Dose: 1,500 mg Cholestyramine Resin (Questran) 4 gm PO DAILY [facility] Collagenase (Santyl) 1 applic TOP Q12 [facility] Last Admin: 05/02/17 09:37 Dose: 1 applic Dimethicone (Proshield Plus Skin Protectant) 1 applic TOP Q8 [facility] Last Admin: 05/02/17 10:31 Dose: 1 applic Clindamycin in NS (Clindamycin 300 Mg/50 Ml-Ns) 300 mg in 50 mls @ 50 mls/hr IVPB Q12 [facility] PRN Reason: Protocol Last Admin: 05/02/17 09:03 Dose: 50 mls/hr Linezolid (Zyvox 600mg/300ml D5w) 600 mg in 300 mls @ 300 mls/hr IVPB Q12 [facility] PRN Reason: Protocol Last Admin: 05/02/17 09:05 Dose: 300 mls/hr Tobramycin Sulfate 60 mg/ (Sodium Chloride) 51.5 mls @ 50.739 mls/hr IV Q24H [facility] Last Admin: 05/02/17 10:31 Dose: 50.739 mls/hr Potassium Chloride/Dextrose/Sod Cl (Potassium Chl 20 Meq In D5-Ns) 1,000 mls @ 40 mls/hr IV .Q24H [facility] Stop: 05/03/17 07:58 Last Admin: 05/02/17 13:51 Dose: 40 mls/hr Hydrocortisone Sodium Succinate 20 mg/ Sodium Chloride 100 mls @ 100 mls/hr IV Q12 [facility] Lactobacillus Acidophilus (Bacid Acidophilus) 1 cap PO BID [facility] Pantoprazole Sodium (Protonix Susp) 40 mg NG DAILY [facility] Last Admin: 05/02/17 09:35 Dose: 40 mg Thiamine HCl (Vitamin B1 Tab) 200 mg PO Q12H [facility] Last Admin: 05/02/17 09:37 Dose: 200 mg - Labs Labs: 05/02/17 04:20 05/02/17 04:20 PT 12.1 Seconds (9.8-13.1) 05/01/17 02:35 INR 1.1 (0.9-1.2) 05/01/17 02:35 APTT 26.2 Seconds (25.6-37.1) 05/01/17 02:35 - Constitutional Appears: Chronically Ill - Head Exam Head Exam: NORMAL INSPECTION - Eye Exam Eye Exam: PERRL - ENT Exam ENT Exam: Normal Exam - Neck Exam Additional comments: Tracheotomy - Respiratory Exam Respiratory Exam: Decreased Breath Sounds (at bases.), Rhonchi (scattered) - Cardiovascular Exam Cardiovascular Exam: REGULAR RHYTHM - GI/Abdominal Exam GI & Abdominal Exam: Soft, Normal Bowel Sounds - Extremities Exam Extremities Exam: Pedal Edema Additional comments: L heel and R lateral ankle DTI, MSAD posterior thigh. - Back Exam Additional comments: MSAD buttock, sacrum, R flank. - Neurological Exam Additional comments: No responding to verbal stimuli, minimal movements to tactile stimuli - Skin Skin Exam: Warm Assessment and Plan (1) Acute respiratory failure Status: Acute (2) Status post tracheostomy Status: Acute (3) Shock Status: Deleted (4) Pneumonia Status: Acute (5) Acute renal failure (ARF) Status: Acute (6) Anemia Status: Acute (7) Hematuria, gross Status: Deleted (8) Thrombocytopenia Status: Resolved (9) History of pulmonary embolus (PE) Status: Acute (10) Pancolitis Status: Deleted (11) UTI (urinary tract infection) Status: Deleted - Assessment and Plan (Free Text) Plan: To have NGT insertion next Tuesday, continue current Tx.
[2017-05-02] MEDS: Cholestyramine 4 gm/Pkt UD PO SCH (17:28)
[2017-05-02] MEDS: Lactobacillus Acidophilus 500 MU Cap PO SCH (17:28)
--- NOTE | 2017-05-02 18:05 | CP.PCM.CON ---
History of Present Illness - History of Present Illness History of Present Illness: Mrs. Yordy Schafer is a 51-year-old woman with a complicated clinical course. She has a past medical history or cervical cancer treated with resection and has been in remission since 2014. This admission started when she was brought in to [facility] by EMS on 04/04/17 due to increased weakness, encephalopathy that had started two days earlier. The patient was admitted to [facility] about 4 months ago with severe weakness, not responding, wheezing and abdominal pain. She was found to have an SBO and was in septic shock. She was eventually discharged home, but was only home for a few days before she began experiencing the symptoms that brought her in for this current admission. The patient has been progressively becoming weaker and at this point she is unable to move any of her extremities. She was treated with sepsis protocol, vitamin C, steroids, etc. The patients is at bedside and states that his often has staring episodes and right lip twitching movements. Neurology was called to assist with the management and care regarding these concerns. The patient is currently non-verbal and has a trach in place with ventilator support. Review of Systems - Review of Systems Systems not reviewed;Unavailable: Altered Mental Status All systems: reviewed and no additional remarkable complaints except Past Patient History - Past Medical History & Family History Past Medical History?: Yes - Past Social History Alcohol: None Drugs: Denies - CARDIAC Hx Cardiac Disorders: No - PULMONARY Hx Pulmonary Embolism: Yes - NEUROLOGICAL Hx Neurological Disorder: No - HEENT Hx HEENT Problems: No - RENAL Other/Comment: hydronephrosis, R ureteral stent and removal (01/27/17). 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) - ENDOCRINE/METABOLIC Hx Endocrine Disorders: No - HEMATOLOGICAL/ONCOLOGICAL Hx Blood Disorders: Yes Hx Cancer: Yes (Cervical) - INTEGUMENTARY Hx Dermatological Problems: No - MUSCULOSKELETAL/RHEUMATOLOGICAL Hx Musculoskeletal Disorders: No - GASTROINTESTINAL Hx Gastrointestinal Disorders: Yes Hx Bowel Surgery: Yes Hx Fatty Liver Disease: Yes Other/Comment: small bowel enteritis - GENITOURINARY/GYNECOLOGICAL Hx Genitourinary Disorders: Yes Hx Ovarian Cancer: Yes - PSYCHIATRIC Hx Psychophysiologic Disorder: No Hx Substance Use: No - SURGICAL HISTORY Hx Cholecystectomy: Yes - ANESTHESIA Hx Anesthesia: Yes Hx Anesthesia Reactions: No Meds Allergies/Adverse Reactions: Allergies Allergy/AdvReac Type Severity Reaction Status Date / Time cimetidine [[facility] Allergy RASH Verified 04/04/17 05:33 nickel Allergy RASH Verified 04/04/17 05:34 Penicillins Allergy RASH Verified 04/04/17 05:33 - Medications Medications: Current Medications Ascorbic Acid (Vitamin C 500 Mg Tab) 1,500 mg PO Q6 [facility] Last Admin: 05/02/17 17:27 Dose: 1,500 mg Cholestyramine Resin (Questran) 4 gm PO DAILY [facility] Last Admin: 05/02/17 17:28 Dose: 4 gm Collagenase (Santyl) 1 applic TOP Q12 [facility] Last Admin: 05/02/17 09:37 Dose: 1 applic Dimethicone (Proshield Plus Skin Protectant) 1 applic TOP Q8 [facility] Last Admin: 05/02/17 10:31 Dose: 1 applic Clindamycin in NS (Clindamycin 300 Mg/50 Ml-Ns) 300 mg in 50 mls @ 50 mls/hr IVPB Q12 [facility] PRN Reason: Protocol Last Admin: 05/02/17 09:03 Dose: 50 mls/hr Linezolid (Zyvox 600mg/300ml D5w) 600 mg in 300 mls @ 300 mls/hr IVPB Q12 [facility] PRN Reason: Protocol Last Admin: 05/02/17 09:05 Dose: 300 mls/hr Tobramycin Sulfate 60 mg/ (Sodium Chloride) 51.5 mls @ 50.739 mls/hr IV Q24H [facility] Last Admin: 05/02/17 10:31 Dose: 50.739 mls/hr Potassium Chloride/Dextrose/Sod Cl (Potassium Chl 20 Meq In D5-Ns) 1,000 mls @ 40 mls/hr IV .Q24H [facility] Stop: 05/03/17 07:58 Last Admin: 05/02/17 13:51 Dose: 40 mls/hr Hydrocortisone Sodium Succinate 20 mg/ Sodium Chloride 100 mls @ 100 mls/hr IV Q12 [facility] Lactobacillus Acidophilus (Bacid Acidophilus) 1 cap PO BID [facility] Last Admin: 05/02/17 17:28 Dose: 1 cap Pantoprazole Sodium (Protonix Susp) 40 mg NG DAILY [facility] Last Admin: 05/02/17 09:35 Dose: 40 mg Thiamine HCl (Vitamin B1 Tab) 200 mg PO Q12H [facility] Last Admin: 05/02/17 09:37 Dose: 200 mg Physical Exam - Constitutional Appears: Toxic, Chronically Ill - Head Exam Head Exam: ATRAUMATIC, NORMAL INSPECTION, NORMOCEPHALIC - Eye Exam Eye Exam: EOMI, Normal appearance, PERRL - ENT Exam ENT Exam: Mucous Membranes Moist, Normal Exam - Neck Exam Neck exam: Positive for: Normal Inspection - Respiratory Exam Additional comments: Trach in place, vent support. - Cardiovascular Exam Cardiovascular Exam: REGULAR RHYTHM - GI/Abdominal Exam GI & Abdominal Exam: Normal Bowel Sounds, Soft - Rectal Exam Rectal Exam: Deferred - Back Exam Back exam: NORMAL INSPECTION - Neurological Exam Additional comments: Non-verbal, attempted to follow simple commands. Moves her thumbs minimally R> L. No movement in lower extremities. Reflexes were diminished. Plantar responses were muted. She tracks, moves her eyes and closes them to commands. - Psychiatric Exam Psychiatric exam: Flat Affect - Skin Skin Exam: Diaphoretic Results - Vital Signs Recent Vital Signs: Last Vital Signs Temp 98.2 F 05/02/17 12:00 Pulse 114 H 05/02/17 14:00 Resp 16 05/02/17 14:00 BP 154/78 H 05/02/17 14:00 Pulse Ox 99 05/02/17 14:00 - Labs Result Diagrams: 05/02/17 04:20 05/02/17 04:20 Labs: Laboratory Results - last 24 hr 05/02/17 05/02/17 04:20 04:20 WBC 12.3 H RBC 3.57 L Hgb 9.9 L D Hct 30.3 L MCV 84.9 MCH 27.6 MCHC 32.5 L RDW 16.7 H Plt Count 236 Sodium 141 Potassium 2.7 L Chloride 105 Carbon Dioxide 23 Anion Gap 16 BUN 39 H Creatinine 1.1 Est GFR ( Amer) > 60 Est GFR (Non-Af Amer) 52 Random Glucose 149 H Calcium 8.2 L Magnesium 1.5 L Assessment & Plan (1) Intensive care (ICU) myopathy Assessment and Plan: This is likely due to the prolonged immobilization and the additive effect of steroids, sepsis and deconditioning. However, due to the history of sepsis and potential for VENDETTE involvement, I recommend obtaining an MRI of the brain and cervical spine for further evaluation. An EMG may be helpful as well, but unlikely to be done in the inpatient setting. For now, avoid corticosteroids, and initiate PT/OT on a daily basis. Status: Acute Priority: High (2) Facial twitching Assessment and Plan: There is concern that this could be due to a seizure disorder superimposed on her current condition. I recommend obtaining an EEG at beside for further evaluation. Status: Acute Priority: High
--- NOTE | 2017-05-02 20:01 | CP.PCM.PN ---
Subjective - Date & Time of Evaluation Date of Evaluation: 05/02/17 Time of Evaluation: 19:55 - Subjective Subjective: 51 yo female admitted about 4 weeks ago with sepsis and weakness. She has had a stormy course with treatments including broad spectrum antibiotics as well as vitamin C sepsis protocol. She is now doing better and at times appears awake and responsive. She is afebrile and her vital signs are stable. She is still intubated. Also having multiple loose bowel movements. I was called to see patient for gastrostomy tube placement. Objective - Vital Signs/Intake and Output Vital Signs (last 24 hours): Temp Pulse Resp BP Pulse Ox 98.2 F 101 H 19 157/95 H 100 05/02/17 12:00 05/02/17 18:00 05/02/17 18:00 05/02/17 18:00 05/02/17 18:00 Intake and Output: 05/02/17 05/03/17 18:59 06:59 Intake Total 1570 Output Total 1200 Balance 370 - Medications Medications: Current Medications Ascorbic Acid (Vitamin C 500 Mg Tab) 1,500 mg PO Q6 [facility] Last Admin: 05/02/17 17:27 Dose: 1,500 mg Cholestyramine Resin (Questran) 4 gm PO DAILY [facility] Last Admin: 05/02/17 17:28 Dose: 4 gm Collagenase (Santyl) 1 applic TOP Q12 [facility] Last Admin: 05/02/17 09:37 Dose: 1 applic Dimethicone (Proshield Plus Skin Protectant) 1 applic TOP Q8 [facility] Last Admin: 05/02/17 17:30 Dose: 1 applic Clindamycin in NS (Clindamycin 300 Mg/50 Ml-Ns) 300 mg in 50 mls @ 50 mls/hr IVPB Q12 [facility] PRN Reason: Protocol Last Admin: 05/02/17 09:03 Dose: 50 mls/hr Linezolid (Zyvox 600mg/300ml D5w) 600 mg in 300 mls @ 300 mls/hr IVPB Q12 [facility] PRN Reason: Protocol Last Admin: 05/02/17 09:05 Dose: 300 mls/hr Tobramycin Sulfate 60 mg/ (Sodium Chloride) 51.5 mls @ 50.739 mls/hr IV Q24H [facility] Last Admin: 05/02/17 10:31 Dose: 50.739 mls/hr Potassium Chloride/Dextrose/Sod Cl (Potassium Chl 20 Meq In D5-Ns) 1,000 mls @ 40 mls/hr IV .Q24H [facility] Stop: 05/03/17 07:58 Last Admin: 05/02/17 13:51 Dose: 40 mls/hr Hydrocortisone Sodium Succinate 20 mg/ Sodium Chloride 100 mls @ 100 mls/hr IV Q12 [facility] Lactobacillus Acidophilus (Bacid Acidophilus) 1 cap PO BID [facility] Last Admin: 05/02/17 17:28 Dose: 1 cap Pantoprazole Sodium (Protonix Susp) 40 mg NG DAILY [facility] Last Admin: 05/02/17 09:35 Dose: 40 mg Thiamine HCl (Vitamin B1 Tab) 200 mg PO Q12H [facility] Last Admin: 05/02/17 09:37 Dose: 200 mg - Labs Labs: 05/02/17 04:20 05/02/17 04:20 PT 12.1 Seconds (9.8-13.1) 05/01/17 02:35 INR 1.1 (0.9-1.2) 05/01/17 02:35 APTT 26.2 Seconds (25.6-37.1) 05/01/17 02:35 - Head Exam Head Exam: ATRAUMATIC - Eye Exam Eye Exam: Normal appearance - ENT Exam ENT Exam: Normal Exam - Neck Exam Neck Exam: Full ROM - Respiratory Exam Respiratory Exam: Clear to Ausculation Bilateral, NORMAL BREATHING PATTERN - Cardiovascular Exam Cardiovascular Exam: REGULAR RHYTHM - GI/Abdominal Exam GI & Abdominal Exam: Soft, Normal Bowel Sounds. absent: Tenderness Assessment and Plan (1) Anemia Status: Acute (2) Dysphagia Assessment & Plan: Patient's family agreeable to PEG and this is the best option to ensure adequate enteral nutrition. Will schedule for Tuesday. Status: Acute (3) Acute diarrhea Assessment & Plan: C. diff studies being sent today. Discuss with ID whether antibiotic regimen can be reduced. Cholestyramine started today by Dr. Gunderson Status: Acute
[2017-05-02] MEDS: HYDROCORTISONE IV SCH (21:16)
--- NOTE | 2017-05-03 00:34 | PN ---
DATE: 05/02/2017 CRITICAL CARE PROGRESS NOTE LOCATION: Patient in ICU, bed 423. TIME SPENT: 35 minutes. SUBJECTIVE: Patient is seen and evaluated at the bedside. Discussed with patient's at the bedside. Past medical, surgical, and social history reviewed. Overnight events noted. Normotensive, afebrile. Telemetry, sinus rhythm, on ventilator. AC/PRVC rate of 14, tidal volume 450, FiO2 of 40%, observed rate of 15, tidal volume 420, minute ventilation 6.7 L, saturating 100%, peak airway pressure 20. Noted to have diarrhea, watery in nature. PHYSICAL EXAMINATION: VITAL SIGNS: Temperature 98.2, heart rate 95 and regular, blood pressure 153/88, mean arterial pressure of 109, on FiO2 of 40%. Intake 2181, output 2750, negative balance of 569. Weight 179 pounds. HEAD, EYES, EARS, NOSE, AND THROAT: Pupils reactive. Conjunctivae pale. Sclera white. Oral mucosa moist. Tracheostomy site without drainage. NECK: Supple. CHEST: Bilateral breath sounds diminished in intensity. Scattered rhonchi. ABDOMEN: Bowel sounds are present. Mild distention. Midline wound with some mucoid discharge. NEUROLOGIC: Alert, awake. Able to follow simple commands. Takes deep breath on request, diminished cough, does not move upper and lower extremities, able to wiggle toes. LABORATORY DATA: WBC 12.3, hemoglobin 9.7, hematocrit 30.3, platelet count 236. PT 12.1, INR 1.1, PTT 26.2. ABG: pH of 7.42, pCO2 of 35, pO2 of 170 on 100% oxygen saturation, on AC 14_, PEEP 5. SMA-7: Sodium 141, potassium 2.7, chloride 105, CO2 of 23, blood urea nitrogen 39, creatinine 1.1, calcium 8.2, magnesium 1.5. CURRENT MEDICATIONS: Vitamin 1500 p.o. mg q. 6, clindamycin 300 mg q. 12, Santyl 1 application topically q. 12, Proshield Plus skin protectant one application topically q. 8 hours, Solu-Medrol 40 mg IV q. 12, Zyvox 600 mg q. 12 hours, Protonix 40 mg daily, potassium chloride with 20 mEq of potassium at 40 mL per hour, thiamine 200 mg p.o. q. 12 hours,potassium 10 mEq x2, tobramycin sulfate 60 mg IV q. 24 hours. MICROBIOLOGY: Urine culture positive for VRE; sputum culture for pseudomonas aeruginosa; blood culture positive for enterococcus faecalis; wound culture for pseudomonas aeruginosa, Klebsiella pneumonia, Enterococcus faecalis. IMPRESSION: 1. Neurologic: Resolving septic metabolic encephalopathy. Concern about polyneuropathy related to sepsis and prolonged intubation with profound weakness of upper and lower extremities. Reportedly patient has been able to ambulate with a cane; status post total knee replacement, right knee, with limited ambulation since December. 2. Pulmonary: Hypoxic respiratory failure, right middle lobe pneumonia, resolving. Tolerating reduced ventilation support. Spontaneous breathing trial in progress. 3. Cardiac: Normotensive. Telemetry, sinus rhythm, off pressors. 4. Gastrointestinal: Profuse diarrhea, Clostridium difficile negative. Continue probiotic. Repeat stool for Clostridium difficile. 5. Renal: Resolving prerenal azotemia. Negative fluid balance noted today. Given D5 normal at 40 mL per hour 4 times 2 days. Supplement potassium and magnesium due to hypokalemia, hypomagnesemia. For PEG insertion, Gastrointestinal consulted. 6. Endocrine: Maintain blood sugar less than 180 mg. 7. Skin: Unstageable breakdown on the sacral as well as on the right upper back using wound care protection with Santyl and Proshield Plus skin protectant. PLAN: Reduce Solu-Cortef to 20 mg IV q.12. DVT, GI prophylaxis. SCD in place. Continue ascorbic acid. Timothy Gunderson MD MTDIvonne
[2017-05-03] MEDS: Proshield Plus GEL TOP SCH ×3 (01:55→18:11)
[2017-05-03 06:41] LABS: BASO % 0.3 % (0.0-2.0); EOS % 0.2 % (0.0-4.0); HEMATOCRIT 27.2 % (34.0-47.0); LYMPH # 0.3 K/uL (1.0-4.3); LYMPH % 2.5 % (20.0-40.0); MEAN CELL VOLUME 84.4 fl (81.0-99.0); MEAN CORPUSCULAR HEMOGLOBIN 28.3 pg (27.0-31.0); MEAN CORPUSCULAR HGB CONC 33.6 g/dL (33.0-37.0); MEAN PLATELET VOLUME 8.2 fl (7.2-11.7); MONO # 0.7 K/uL (0.0-0.8); MONO % 6.7 % (0.0-10.0); NEUT % 90.3 % (50.0-75.0); NRBC % 0.1 % (0.0-0.0); PLATELET COUNT 237 K/uL (130-400); RED CELL DISTRIBUTION WIDTH 16.9 % (11.5-14.5); WHITE BLOOD COUNT 11.1 K/uL (4.8-10.8)
[2017-05-03 07:11] LABS: ALB/GLOB RATIO 1.1 (1.0-2.1); ALKALINE PHOSPHATASE 218 U/L (38-126); ALT/SGPT 63 U/L (9-52); AST/SGOT 32 U/L (14-36); BILIRUBIN,TOTAL 0.5 mg/dl (0.2-1.3); BLOOD UREA NITROGEN 35 mg/dl (7-17); CALCIUM 7.7 mg/dL (8.4-10.2); CARBON DIOXIDE 22 mmol/L (22-30); CHLORIDE 109 mmol/L (98-107); GFR AFRICAN-AMERICAN > 60; GLUCOSE,RANDOM 239 mg/dL (65-105); POTASSIUM 2.9 MMOL/L (3.6-5.0); SODIUM 143 mmol/l (132-148); TOTAL PROTEIN 5.6 G/DL (6.3-8.2)
[2017-05-03] MEDS: Potassium CL 10 MEQ/50 ML 50 ML IVPB SCH ×6 (08:53→20:35)
[2017-05-03] MEDS: Clindamycin in NS 300 MG/50 ML BAG IVPB SCH ×2 (08:54→21:00)
[2017-05-03] MEDS: Lactobacillus Acidophilus 500 MU Cap PO SCH ×2 (08:55→18:10)
[2017-05-03] MEDS: Pantoprazole 40 mg Susp UD NG SCH (08:56)
[2017-05-03] MEDS: Cholestyramine 4 gm/Pkt UD PO SCH (08:58)
[2017-05-03] MEDS: SODIUM CHLORIDE 0.9% IV SCH ×2 (08:59→10:33)
[2017-05-03] MEDS: HYDROCORTISONE IV SCH (08:59)
[2017-05-03] MEDS: Linezolid 600 mg in D5W 300 ml 600 MG/300 ML BAG IVPB SCH ×2 (10:32→21:01)
[2017-05-03] MEDS: TOBRAMYCIN IV SCH (10:33)
[2017-05-03] MEDS: Santyl Collagenase OINTMENT TOP SCH ×2 (10:37→21:04)
[2017-05-03 10:57] LABS: METAMYELOCYTE 1 % (0-0); MYELOCYTE 1 % (0-0); NEUTROPHIL 84 % (42-75); TOTAL CELLS COUNTED 100
[2017-05-03 10:58] LABS: PLATELET CLUMPS PRESENT
--- NOTE | 2017-05-03 11:11 | CP.PCM.PN ---
Subjective - Date & Time of Evaluation Date of Evaluation: 05/03/17 Time of Evaluation: 11:09 - Subjective Subjective: Nonsignificant changes mentally. Review lab showed serum magnesium low-lying she was given 1 dose yesterday and the patient will need more because of the continuous diarrhea. Also persistent hypokalemia patient was given 10 mEq patient will need more , give addition 20 meq iv. The rest of the medical problem has not been changed As noted in my previous note Objective - Vital Signs/Intake and Output Vital Signs (last 24 hours): Temp Pulse Resp BP Pulse Ox 97.6 F 112 H 24 127/80 98 05/03/17 08:00 05/03/17 08:00 05/03/17 08:00 05/03/17 08:00 05/03/17 08:00 Intake and Output: 05/03/17 05/03/17 06:59 18:59 Intake Total 600 80 Output Total 1700 Balance -1100 80 - Medications Medications: Current Medications Ascorbic Acid (Vitamin C 500 Mg Tab) 1,500 mg PO Q6 [facility] Last Admin: 05/03/17 10:31 Dose: 1,500 mg Cholestyramine Resin (Questran) 4 gm PO DAILY [facility] Last Admin: 05/03/17 08:58 Dose: 4 gm Collagenase (Santyl) 1 applic TOP Q12 [facility] Last Admin: 05/03/17 10:37 Dose: 1 applic Dimethicone (Proshield Plus Skin Protectant) 1 applic TOP Q8 [facility] Last Admin: 05/03/17 08:56 Dose: 1 applic Clindamycin in NS (Clindamycin 300 Mg/50 Ml-Ns) 300 mg in 50 mls @ 50 mls/hr IVPB Q12 [facility] PRN Reason: Protocol Last Admin: 05/03/17 08:54 Dose: 50 mls/hr Linezolid (Zyvox 600mg/300ml D5w) 600 mg in 300 mls @ 300 mls/hr IVPB Q12 [facility] PRN Reason: Protocol Last Admin: 05/03/17 10:32 Dose: 300 mls/hr Tobramycin Sulfate 60 mg/ (Sodium Chloride) 51.5 mls @ 50.739 mls/hr IV Q24H [facility] Last Admin: 05/03/17 10:33 Dose: 50.739 mls/hr Hydrocortisone Sodium Succinate 20 mg/ Sodium Chloride 100 mls @ 100 mls/hr IV Q12 [facility] Last Admin: 05/03/17 08:59 Dose: 100 mls/hr Potassium Chloride (Potassium Cl 10meq/50ml Sterile Water) 50 mls @ 50 mls/hr IVPB Q1 [facility] Stop: 05/03/17 11:59 Last Admin: 05/03/17 10:30 Dose: 50 mls/hr Potassium Chloride (Potassium Cl 10meq/50ml Sterile Water) 50 mls @ 50 mls/hr IVPB Q1 [facility] Stop: 05/03/17 12:59 Magnesium Sulfate 1 gm/ Sodium (Chloride) 102 mls @ 204 mls/hr IVPB ONCE ONE PRN Reason: 1 GM/30 MIN Stop: 05/03/17 11:29 Lactobacillus Acidophilus (Bacid Acidophilus) 1 cap PO BID [facility] Last Admin: 05/03/17 08:55 Dose: 1 cap Pantoprazole Sodium (Protonix Susp) 40 mg NG DAILY [facility] Last Admin: 05/03/17 08:56 Dose: 40 mg Thiamine HCl (Vitamin B1 Tab) 200 mg PO Q12H [facility] Last Admin: 05/03/17 09:00 Dose: 200 mg - Labs Labs: 05/03/17 06:00 05/03/17 06:00 PT 12.1 Seconds (9.8-13.1) 05/01/17 02:35 INR 1.1 (0.9-1.2) 05/01/17 02:35 APTT 26.2 Seconds (25.6-37.1) 05/01/17 02:35 Assessment and Plan (1) Acute renal injury due to circulatory failure Status: Acute (2) Altered mental status Status: Acute (3) GI bleed Status: Acute
[2017-05-03] MEDS ORDERED: Magnesium Sulfate 1 GM in Dextrose 5% In Water 50 ML IVPB ONE (11:15)
--- NOTE | 2017-05-03 12:28 | CP.PCM.PN ---
Subjective - Date & Time of Evaluation Date of Evaluation: 05/03/17 Time of Evaluation: 12:26 - Subjective Subjective: Mrs. Yordy Schafer was seen and examined today at bedside. She has been clinically unchanged since yesterday and there were no acute events overnight. Objective - Vital Signs/Intake and Output Vital Signs (last 24 hours): Temp Pulse Resp BP Pulse Ox 97.6 F 112 H 24 127/80 98 05/03/17 08:00 05/03/17 08:00 05/03/17 08:00 05/03/17 08:00 05/03/17 08:00 Intake and Output: 05/03/17 05/03/17 06:59 18:59 Intake Total 600 430 Output Total 1700 Balance -1100 430 - Medications Medications: Current Medications Ascorbic Acid (Vitamin C 500 Mg Tab) 1,500 mg PO Q6 [facility] Last Admin: 05/03/17 10:31 Dose: 1,500 mg Cholestyramine Resin (Questran) 4 gm PO DAILY [facility] Last Admin: 05/03/17 08:58 Dose: 4 gm Collagenase (Santyl) 1 applic TOP Q12 [facility] Last Admin: 05/03/17 10:37 Dose: 1 applic Dimethicone (Proshield Plus Skin Protectant) 1 applic TOP Q8 [facility] Last Admin: 05/03/17 08:56 Dose: 1 applic Clindamycin in NS (Clindamycin 300 Mg/50 Ml-Ns) 300 mg in 50 mls @ 50 mls/hr IVPB Q12 [facility] PRN Reason: Protocol Last Admin: 05/03/17 08:54 Dose: 50 mls/hr Linezolid (Zyvox 600mg/300ml D5w) 600 mg in 300 mls @ 300 mls/hr IVPB Q12 [facility] PRN Reason: Protocol Last Admin: 05/03/17 10:32 Dose: 300 mls/hr Tobramycin Sulfate 60 mg/ (Sodium Chloride) 51.5 mls @ 50.739 mls/hr IV Q24H [facility] Last Admin: 05/03/17 10:33 Dose: 50.739 mls/hr Hydrocortisone Sodium Succinate 20 mg/ Sodium Chloride 100 mls @ 100 mls/hr IV Q12 [facility] Last Admin: 05/03/17 08:59 Dose: 100 mls/hr Potassium Chloride (Potassium Cl 10meq/50ml Sterile Water) 50 mls @ 50 mls/hr IVPB Q1 [facility] Stop: 05/03/17 12:59 Lactobacillus Acidophilus (Bacid Acidophilus) 1 cap PO BID [facility] Last Admin: 05/03/17 08:55 Dose: 1 cap Pantoprazole Sodium (Protonix Susp) 40 mg NG DAILY [facility] Last Admin: 05/03/17 08:56 Dose: 40 mg Thiamine HCl (Vitamin B1 Tab) 200 mg PO Q12H [facility] Last Admin: 05/03/17 09:00 Dose: 200 mg - Labs Labs: 05/03/17 06:00 05/03/17 06:00 PT 12.1 Seconds (9.8-13.1) 05/01/17 02:35 INR 1.1 (0.9-1.2) 05/01/17 02:35 APTT 26.2 Seconds (25.6-37.1) 05/01/17 02:35 - Neurological Exam Additional comments: Neurologically unchanged compared with yesterday's exam. Assessment and Plan (1) Intensive care (ICU) myopathy Assessment & Plan: Continue supportive care and attempt PT/OT today. Status: Acute (2) Facial twitching Status: Acute
--- NOTE | 2017-05-03 12:29 | CP.PCM.PN ---
Subjective - Date & Time of Evaluation Date of Evaluation: 05/03/17 Time of Evaluation: 12:25 - Subjective Subjective: Patient remains stable clinically. Still intubated Objective - Vital Signs/Intake and Output Vital Signs (last 24 hours): Temp Pulse Resp BP Pulse Ox 97.6 F 112 H 24 127/80 98 05/03/17 08:00 05/03/17 08:00 05/03/17 08:00 05/03/17 08:00 05/03/17 08:00 Intake and Output: 05/03/17 05/03/17 06:59 18:59 Intake Total 600 430 Output Total 1700 Balance -1100 430 - Medications Medications: Current Medications Ascorbic Acid (Vitamin C 500 Mg Tab) 1,500 mg PO Q6 [facility] Last Admin: 05/03/17 10:31 Dose: 1,500 mg Cholestyramine Resin (Questran) 4 gm PO DAILY [facility] Last Admin: 05/03/17 08:58 Dose: 4 gm Collagenase (Santyl) 1 applic TOP Q12 [facility] Last Admin: 05/03/17 10:37 Dose: 1 applic Dimethicone (Proshield Plus Skin Protectant) 1 applic TOP Q8 [facility] Last Admin: 05/03/17 08:56 Dose: 1 applic Clindamycin in NS (Clindamycin 300 Mg/50 Ml-Ns) 300 mg in 50 mls @ 50 mls/hr IVPB Q12 [facility] PRN Reason: Protocol Last Admin: 05/03/17 08:54 Dose: 50 mls/hr Linezolid (Zyvox 600mg/300ml D5w) 600 mg in 300 mls @ 300 mls/hr IVPB Q12 [facility] PRN Reason: Protocol Last Admin: 05/03/17 10:32 Dose: 300 mls/hr Tobramycin Sulfate 60 mg/ (Sodium Chloride) 51.5 mls @ 50.739 mls/hr IV Q24H [facility] Last Admin: 05/03/17 10:33 Dose: 50.739 mls/hr Hydrocortisone Sodium Succinate 20 mg/ Sodium Chloride 100 mls @ 100 mls/hr IV Q12 [facility] Last Admin: 05/03/17 08:59 Dose: 100 mls/hr Potassium Chloride (Potassium Cl 10meq/50ml Sterile Water) 50 mls @ 50 mls/hr IVPB Q1 [facility] Stop: 05/03/17 12:59 Lactobacillus Acidophilus (Bacid Acidophilus) 1 cap PO BID [facility] Last Admin: 05/03/17 08:55 Dose: 1 cap Pantoprazole Sodium (Protonix Susp) 40 mg NG DAILY [facility] Last Admin: 05/03/17 08:56 Dose: 40 mg Thiamine HCl (Vitamin B1 Tab) 200 mg PO Q12H [facility] Last Admin: 05/03/17 09:00 Dose: 200 mg - Labs Labs: 05/03/17 06:00 05/03/17 06:00 PT 12.1 Seconds (9.8-13.1) 05/01/17 02:35 INR 1.1 (0.9-1.2) 05/01/17 02:35 APTT 26.2 Seconds (25.6-37.1) 05/01/17 02:35 - Head Exam Head Exam: ATRAUMATIC - Eye Exam Eye Exam: Normal appearance - ENT Exam ENT Exam: Normal Exam - Neck Exam Neck Exam: Full ROM - Respiratory Exam Respiratory Exam: Clear to Ausculation Bilateral - Cardiovascular Exam Cardiovascular Exam: REGULAR RHYTHM - GI/Abdominal Exam GI & Abdominal Exam: Soft. absent: Tenderness Assessment and Plan (1) Anemia Status: Acute (2) Dysphagia Assessment & Plan: Patient clinically stable at the moment. Scheduled for PEG tomorrow. Will need potassium corrected first. Consent obtained from her . Status: Acute (3) Acute diarrhea Status: Acute
--- NOTE | 2017-05-03 16:40 | CP.PCM.PN ---
Subjective - Date & Time of Evaluation Date of Evaluation: 05/03/17 Time of Evaluation: 12:10 - Subjective Subjective: F/U Respiratory failure. Pt awake, follows with the eyes commands, Patient appears that understand the conversations. Objective - Vital Signs/Intake and Output Vital Signs (last 24 hours): Temp Pulse Resp BP Pulse Ox 97.5 F L 100 H 19 145/83 100 05/03/17 16:00 05/03/17 16:00 05/03/17 16:00 05/03/17 16:00 05/03/17 16:00 Intake and Output: 05/03/17 05/03/17 06:59 18:59 Intake Total 600 970 Output Total 1700 Balance -1100 970 - Medications Medications: Current Medications Ascorbic Acid (Vitamin C 250 Mg Tab) 250 mg PO DAILY [facility] Cholestyramine Resin (Questran) 4 gm PO DAILY [facility] Last Admin: 05/03/17 08:58 Dose: 4 gm Collagenase (Santyl) 1 applic TOP Q12 [facility] Last Admin: 05/03/17 10:37 Dose: 1 applic Dimethicone (Proshield Plus Skin Protectant) 1 applic TOP Q8 [facility] Last Admin: 05/03/17 08:56 Dose: 1 applic Hydrocortisone Sodium Succinate (Solu-Cortef) 10 mg IV Q12 [facility] Clindamycin in NS (Clindamycin 300 Mg/50 Ml-Ns) 300 mg in 50 mls @ 50 mls/hr IVPB Q12 [facility] PRN Reason: Protocol Last Admin: 05/03/17 08:54 Dose: 50 mls/hr Linezolid (Zyvox 600mg/300ml D5w) 600 mg in 300 mls @ 300 mls/hr IVPB Q12 [facility] PRN Reason: Protocol Last Admin: 05/03/17 10:32 Dose: 300 mls/hr Tobramycin Sulfate 60 mg/ (Sodium Chloride) 51.5 mls @ 50.739 mls/hr IV Q24H [facility] Last Admin: 05/03/17 10:33 Dose: 50.739 mls/hr Lactobacillus Acidophilus (Bacid Acidophilus) 1 cap PO BID [facility] Last Admin: 05/03/17 08:55 Dose: 1 cap Pantoprazole Sodium (Protonix Susp) 40 mg NG DAILY [facility] Last Admin: 05/03/17 08:56 Dose: 40 mg Thiamine HCl (Vitamin B1 Tab) 200 mg PO Q12H [facility] Last Admin: 05/03/17 09:00 Dose: 200 mg Zinc Sulfate (Zinc Sulfate 220 Mg Cap) 220 mg PO DAILY [facility] - Labs Labs: 05/03/17 06:00 05/03/17 06:00 PT 12.1 Seconds (9.8-13.1) 05/01/17 02:35 INR 1.1 (0.9-1.2) 05/01/17 02:35 APTT 26.2 Seconds (25.6-37.1) 05/01/17 02:35 - Constitutional Appears: No Acute Distress, Chronically Ill - Head Exam Head Exam: NORMAL INSPECTION - Eye Exam Eye Exam: PERRL - ENT Exam ENT Exam: Normal Exam - Respiratory Exam Respiratory Exam: Decreased Breath Sounds (at bases) - Cardiovascular Exam Cardiovascular Exam: REGULAR RHYTHM - GI/Abdominal Exam GI & Abdominal Exam: Soft, Normal Bowel Sounds - Extremities Exam Extremities Exam: Pedal Edema Additional comments: L heel and R lateral ankle DTI, MSAD posterior thigh. - Back Exam Additional comments: MSAD buttock, sacrum, R flak - Neurological Exam Additional comments: eyes open , follows with eye movements verbal stimuli , generalized weakness - Skin Skin Exam: Warm Assessment and Plan (1) Acute respiratory failure Status: Acute (2) Status post tracheostomy Status: Acute (3) Shock Status: Deleted (4) Pneumonia Status: Acute (5) Acute renal failure (ARF) Status: Acute (6) Anemia Status: Acute (7) Thrombocytopenia Status: Resolved (8) History of pulmonary embolus (PE) Status: Acute (9) Pancolitis Status: Deleted (10) UTI (urinary tract infection) Status: Deleted - Assessment and Plan (Free Text) Plan: F/U Brain MRI, to have Peg Tube insertion in AM, continue trial of CPAP PS today , lack of improvement discussed with Director Mba and Patient's regarding previous Patient level of activity, ICU myopathy possible cause of Patient lack of improvement and failed attempt of weaning due to respiratory muscle weakness.
[2017-05-03] MEDS ORDERED: HYDROCORTISONE IV SCH (21:00)
[2017-05-03] MEDS ORDERED: SODIUM CHLORIDE 0.9% IV SCH (21:00)
--- NOTE | 2017-05-03 23:05 | CP.PCM.PN ---
Subjective - Date & Time of Evaluation Date of Evaluation: 05/04/17 Time of Evaluation: 22:57 - Subjective Subjective: I D NOTE F/U CULTURES ORDERED WILL DISCONTINUE ANTIBIOTICS PENDING THESE RESULTS AND WBC COUNT Objective - Vital Signs/Intake and Output Vital Signs (last 24 hours): Temp Pulse Resp BP Pulse Ox 97.5 F L 103 H 14 153/87 H 100 05/03/17 16:00 05/03/17 18:00 05/03/17 18:00 05/03/17 18:00 05/03/17 18:00 Intake and Output: 05/03/17 05/04/17 18:59 06:59 Intake Total 1598 Output Total 1750 Balance -152 - Medications Medications: Current Medications Ascorbic Acid (Vitamin C 250 Mg Tab) 250 mg PO DAILY [facility] Last Admin: 05/03/17 18:13 Dose: 250 mg Cholestyramine Resin (Questran) 4 gm PO DAILY [facility] Last Admin: 05/03/17 08:58 Dose: 4 gm Collagenase (Santyl) 1 applic TOP Q12 [facility] Last Admin: 05/03/17 21:04 Dose: 1 applic Dimethicone (Proshield Plus Skin Protectant) 1 applic TOP Q8 [facility] Last Admin: 05/03/17 18:11 Dose: 1 applic Hydrocortisone Sodium Succinate (Solu-Cortef) 10 mg IV Q12 [facility] Last Admin: 05/03/17 21:03 Dose: 10 mg Clindamycin in NS (Clindamycin 300 Mg/50 Ml-Ns) 300 mg in 50 mls @ 50 mls/hr IVPB Q12 [facility] PRN Reason: Protocol Last Admin: 05/03/17 21:00 Dose: 50 mls/hr Linezolid (Zyvox 600mg/300ml D5w) 600 mg in 300 mls @ 300 mls/hr IVPB Q12 [facility] PRN Reason: Protocol Last Admin: 05/03/17 21:01 Dose: 300 mls/hr Tobramycin Sulfate 60 mg/ (Sodium Chloride) 51.5 mls @ 50.739 mls/hr IV Q24H [facility] Last Admin: 05/03/17 10:33 Dose: 50.739 mls/hr Lactobacillus Acidophilus (Bacid Acidophilus) 1 cap PO BID [facility] Last Admin: 05/03/17 18:10 Dose: 1 cap Pantoprazole Sodium (Protonix Susp) 40 mg NG DAILY [facility] Last Admin: 05/03/17 08:56 Dose: 40 mg Thiamine HCl (Vitamin B1 Tab) 200 mg PO Q12H [facility] Last Admin: 05/03/17 21:04 Dose: 200 mg Zinc Sulfate (Zinc Sulfate 220 Mg Cap) 220 mg PO DAILY [facility] Last Admin: 05/03/17 18:13 Dose: 220 mg - Labs Labs: 05/03/17 06:00 05/03/17 06:00 PT 12.1 Seconds (9.8-13.1) 05/01/17 02:35 INR 1.1 (0.9-1.2) 05/01/17 02:35 APTT 26.2 Seconds (25.6-37.1) 05/01/17 02:35
[2017-05-04] MEDS ORDERED: Potassium Chl 40 mEq in D5-NS 1,000 ML IV SCH (01:15)
[2017-05-04] MEDS: Proshield Plus GEL TOP SCH ×3 (01:43→16:07)
[2017-05-04 04:54] LABS: HEMATOCRIT 25.9 % (34.0-47.0); MEAN CELL VOLUME 84.9 fl (81.0-99.0); MEAN CORPUSCULAR HEMOGLOBIN 27.3 pg (27.0-31.0); MEAN CORPUSCULAR HGB CONC 32.2 g/dL (33.0-37.0); WHITE BLOOD COUNT 11.1 K/uL (4.8-10.8)
[2017-05-04 05:07] LABS: BLOOD UREA NITROGEN 29 mg/dl (7-17); CALCIUM 8.1 mg/dL (8.4-10.2); CARBON DIOXIDE 23 mmol/L (22-30); CHLORIDE 109 mmol/L (98-107); GFR AFRICAN-AMERICAN > 60; GLUCOSE,RANDOM 96 mg/dL (65-105); MAGNESIUM 1.6 MG/DL (1.6-2.3); POTASSIUM 2.9 MMOL/L (3.6-5.0); SODIUM 142 mmol/l (132-148)
[2017-05-04 05:59] LABS: ABG ALLEN TEST YES; ARTERIAL BLOOD GAS HCO3 24.7 mmol/L (21-28); ARTERIAL BLOOD GAS MODE CPAP PS; ARTERIAL BLOOD GAS O2 CAPACITY 11.2 mL/dL (16-24); ARTERIAL BLOOD GAS O2 CONTENT 11.2 ML/dL (15-23); ARTERIAL BLOOD GAS PO2 160 mm/Hg (80-100); ARTERIAL BLOOD HGB O2 SAT 94.6 % (95.0-98.0); ATERIAL BLOOD GAS PEEP 5; CARBOXYHEMOGLOBIN 1.5 % (0.5-1.5); HHB -0.4 % (0.0-5.0); METHEMOGLOBIN 4.3 % (0.0-3.0)
--- NOTE | 2017-05-04 07:08 | CP.PCM.PN ---
Subjective - Date & Time of Evaluation Date of Evaluation: 05/04/17 Time of Evaluation: 07:06 - Subjective Subjective: Ms. Yordy Schafer was seen and examined at the bedside in ICU. She is non-verbal and on mechanical ventilation. She spontaneously opens her eyes and with attempts to nod her head when asked to answer. She is schedule for peg insertion today. There was no untoward events overnight. Objective - Vital Signs/Intake and Output Vital Signs (last 24 hours): Temp Pulse Resp BP Pulse Ox 98.5 F 105 H 17 160/81 H 100 05/04/17 04:00 05/04/17 06:00 05/04/17 06:00 05/04/17 06:00 05/04/17 06:00 Intake and Output: 05/04/17 05/04/17 06:59 18:59 Intake Total 870 Output Total 1800 Balance -930 - Medications Medications: Current Medications Ascorbic Acid (Vitamin C 250 Mg Tab) 250 mg PO DAILY [facility] Last Admin: 05/03/17 18:13 Dose: 250 mg Cholestyramine Resin (Questran) 4 gm PO DAILY [facility] Last Admin: 05/03/17 08:58 Dose: 4 gm Collagenase (Santyl) 1 applic TOP Q12 [facility] Last Admin: 05/03/17 21:04 Dose: 1 applic Dimethicone (Proshield Plus Skin Protectant) 1 applic TOP Q8 [facility] Last Admin: 05/04/17 01:43 Dose: 1 applic Hydrocortisone Sodium Succinate (Solu-Cortef) 10 mg IV Q12 [facility] Last Admin: 05/03/17 21:03 Dose: 10 mg Clindamycin in NS (Clindamycin 300 Mg/50 Ml-Ns) 300 mg in 50 mls @ 50 mls/hr IVPB Q12 [facility] PRN Reason: Protocol Last Admin: 05/03/17 21:00 Dose: 50 mls/hr Linezolid (Zyvox 600mg/300ml D5w) 600 mg in 300 mls @ 300 mls/hr IVPB Q12 [facility] PRN Reason: Protocol Last Admin: 05/03/17 21:01 Dose: 300 mls/hr Tobramycin Sulfate 60 mg/ (Sodium Chloride) 51.5 mls @ 50.739 mls/hr IV Q24H [facility] Last Admin: 05/03/17 10:33 Dose: 50.739 mls/hr Potassium Chloride/Dextrose/Sod Cl (D5-Ns1l+40meq Kcl) 1,000 mls @ 40 mls/hr IV .Q24H [facility] Last Admin: 05/04/17 01:41 Dose: 40 mls/hr Lactobacillus Acidophilus (Bacid Acidophilus) 1 cap PO BID [facility] Last Admin: 05/03/17 18:10 Dose: 1 cap Pantoprazole Sodium (Protonix Susp) 40 mg NG DAILY [facility] Last Admin: 05/03/17 08:56 Dose: 40 mg Thiamine HCl (Vitamin B1 Tab) 200 mg PO Q12H [facility] Last Admin: 05/03/17 21:04 Dose: 200 mg Zinc Sulfate (Zinc Sulfate 220 Mg Cap) 220 mg PO DAILY [facility] Last Admin: 05/03/17 18:13 Dose: 220 mg - Labs Labs: 05/04/17 04:20 05/04/17 04:20 PT 12.1 Seconds (9.8-13.1) 05/01/17 02:35 INR 1.1 (0.9-1.2) 05/01/17 02:35 APTT 26.2 Seconds (25.6-37.1) 05/01/17 02:35 - Constitutional Appears: No Acute Distress - Head Exam Head Exam: ATRAUMATIC - Neurological Exam Neurological Exam: Awake Neuro motor strength exam: Left Upper Extremity: 2/1, Right Upper Extremity: 2/1 , Left Lower Extremity: 2/1, Right Lower Extremity: 2/1 Additional comments: Non-verbal, attempted to follow simple commands. Moves her thumbs minimally R> L. No movement in lower extremities. Reflexes were diminished. Plantar responses were muted. She tracks, moves her eyes and closes them to commands. Assessment and Plan (1) Facial twitching Assessment & Plan: Case discussed with Dr. Blanco, continue all current medical regimen. Recommend to start PT/OT eval and treat. Status: Acute
[2017-05-04] MEDS: Lactobacillus Acidophilus 500 MU Cap PO SCH ×2 (09:07→16:05)
[2017-05-04] MEDS: Clindamycin in NS 300 MG/50 ML BAG IVPB SCH ×2 (09:08→21:25)
[2017-05-04] MEDS: Potassium Chloride 20 mEq/15 ml LIQ UD PO ONE ×2 (09:08→10:33)
[2017-05-04] MEDS: Potassium CL 10 MEQ/50 ML 50 ML IVPB SCH ×10 (09:09→17:19)
[2017-05-04] MEDS: Cholestyramine 4 gm/Pkt UD PO SCH ×2 (09:10→21:26)
[2017-05-04] MEDS: Pantoprazole 40 mg Susp UD NG SCH ×2 (09:10→15:50)
[2017-05-04] MEDS: Santyl Collagenase OINTMENT TOP SCH ×2 (09:11→21:27)
[2017-05-04] MEDS: Linezolid 600 mg in D5W 300 ml 600 MG/300 ML BAG IVPB SCH ×2 (09:12→21:28)
[2017-05-04] MEDS: TOBRAMYCIN IV SCH (10:27)
[2017-05-04] MEDS: SODIUM CHLORIDE 0.9% IV SCH (10:27)
--- NOTE | 2017-05-04 10:37 | MRI ---
PROCEDURE: MRI BRAIN WITHOUT CONTRAST HISTORY: weakness COMPARISON: Noncontrast head CT from 04/04/2017 TECHNIQUE: Multiplanar, multisequence MR images of the brain were obtained without intravenous contrast enhancement. FINDINGS: HEMORRHAGE: None DWI: There is a tiny solitary focus of restricted diffusion in the right posterior temporal cortex. BRAIN PARENCHYMA: There is a 6 mm T1 and T2 hyperintense lesion in the right posterior temporal cortex, which demonstrates and T2 hypointense rim and peripheral increased magnetic susceptibility on gradient sequence. There are also scattered punctate foci of increased magnetic susceptibility in both cerebral hemispheres, in the splenium of corpus callosum and both cerebellar hemispheres. There are mild chronic microangiopathic changes. The midline sagittal structures are normal. VENTRICLES: There is mild global parenchymal volume loss and proportionate enlargement of the ventricles and cortical sulci, slightly advanced for the patient's age. There are small T1 hyperintense foci which demonstrate increased magnetic susceptibility in the interpeduncular cistern. CRANIUM: There is normal bone marrow signal pattern ORBITS: Grossly unremarkable. PARANASAL SINUSES/MASTOIDS: There are small retention cysts/ polyps in the left maxillary sinus and mild mucosal thickening in the ethmoid air cells. There are bilateral large mastoid effusions. There is also fluid in the dependent nasopharynx. VASCULAR SYSTEM: There are normal signal voids in the larger intracranial arteries. OTHER FINDINGS: None. IMPRESSION: 1. Suspect small punctate acute cortical infarction in the right posterior temporal lobe. 2. 6 mm right posterior temporal cortical lesion with peripheral increased magnetic susceptibility may represent a small cavernous malformation or ischemic stroke with microhemorrhage. 3. Multiple scattered supra and infratentorial cortical foci of increased magnetic susceptibility, the differential considerations include hypertensive micro hemorrhages, multiple cavernous malformations, amyloid angiopathy, and ischemic stroke with micro hemorrhages. 4. Punctate lobular areas of micro hemorrhage in the interpeduncular cistern of uncertain etiology. 4. Mild global parenchymal volume loss, slightly advanced for the patient's age. 5. Bilateral large mastoid effusions. A preliminary report was provided by [facility].
--- NOTE | 2017-05-04 11:10 | CP.PCM.PN ---
Subjective - Date & Time of Evaluation Date of Evaluation: 05/04/17 Time of Evaluation: 11:08 - Subjective Subjective: No new complaints Objective - Vital Signs/Intake and Output Vital Signs (last 24 hours): Temp Pulse Resp BP Pulse Ox 98.2 F 98 H 15 150/8 L 100 05/04/17 08:00 05/04/17 10:00 05/04/17 10:00 05/04/17 10:00 05/04/17 10:00 Intake and Output: 05/04/17 05/04/17 06:59 18:59 Intake Total 870 500 Output Total 1800 Balance -930 500 - Medications Medications: Current Medications Ascorbic Acid (Vitamin C 250 Mg Tab) 250 mg PO DAILY [facility] Last Admin: 05/04/17 09:12 Dose: Not Given Cholestyramine Resin (Questran) 4 gm PO DAILY [facility] Last Admin: 05/04/17 09:10 Dose: Not Given Collagenase (Santyl) 1 applic TOP Q12 [facility] Last Admin: 05/04/17 09:11 Dose: 1 applic Dimethicone (Proshield Plus Skin Protectant) 1 applic TOP Q8 [facility] Last Admin: 05/04/17 09:10 Dose: 1 applic Hydrocortisone Sodium Succinate (Solu-Cortef) 10 mg IV Q12 [facility] Last Admin: 05/04/17 09:11 Dose: 10 mg Clindamycin in NS (Clindamycin 300 Mg/50 Ml-Ns) 300 mg in 50 mls @ 50 mls/hr IVPB Q12 [facility] PRN Reason: Protocol Last Admin: 05/04/17 09:08 Dose: 50 mls/hr Linezolid (Zyvox 600mg/300ml D5w) 600 mg in 300 mls @ 300 mls/hr IVPB Q12 [facility] PRN Reason: Protocol Last Admin: 05/04/17 09:12 Dose: 300 mls/hr Tobramycin Sulfate 60 mg/ (Sodium Chloride) 51.5 mls @ 50.739 mls/hr IV Q24H [facility] Last Admin: 05/04/17 10:27 Dose: 50.739 mls/hr Potassium Chloride/Dextrose/Sod Cl (D5-Ns1l+40meq Kcl) 1,000 mls @ 40 mls/hr IV .Q24H [facility] Last Admin: 05/04/17 01:41 Dose: 40 mls/hr Potassium Chloride (Potassium Cl 10meq/50ml Sterile Water) 50 mls @ 50 mls/hr IVPB Q1 [facility] Stop: 05/04/17 11:59 Last Admin: 05/04/17 10:24 Dose: 50 mls/hr Potassium Chloride (Potassium Cl 10meq/50ml Sterile Water) 50 mls @ 50 mls/hr IVPB Q1 [facility] Stop: 05/04/17 11:59 Lactobacillus Acidophilus (Bacid Acidophilus) 1 cap PO BID [facility] Last Admin: 05/04/17 09:07 Dose: Not Given Pantoprazole Sodium (Protonix Susp) 40 mg NG DAILY [facility] Last Admin: 05/04/17 09:10 Dose: Not Given Thiamine HCl (Vitamin B1 Tab) 200 mg PO Q12H [facility] Last Admin: 05/04/17 09:12 Dose: Not Given Zinc Sulfate (Zinc Sulfate 220 Mg Cap) 220 mg PO DAILY [facility] Last Admin: 05/04/17 09:12 Dose: Not Given - Labs Labs: 05/04/17 04:20 05/04/17 04:20 PT 12.1 Seconds (9.8-13.1) 05/01/17 02:35 INR 1.1 (0.9-1.2) 05/01/17 02:35 APTT 26.2 Seconds (25.6-37.1) 05/01/17 02:35 - Head Exam Head Exam: ATRAUMATIC - Eye Exam Eye Exam: Normal appearance - ENT Exam ENT Exam: Normal Exam - Neck Exam Neck Exam: Full ROM - Respiratory Exam Respiratory Exam: Clear to Ausculation Bilateral - Cardiovascular Exam Cardiovascular Exam: REGULAR RHYTHM - GI/Abdominal Exam GI & Abdominal Exam: Soft. absent: Tenderness Assessment and Plan (1) Anemia Status: Acute (2) Dysphagia Assessment & Plan: Patient has hypokalemia . PEG cancelled. Will reschedule when K+ normalized. Status: Acute (3) Acute diarrhea Status: Acute
--- NOTE | 2017-05-04 11:25 | CP.PCM.PN ---
Subjective - Date & Time of Evaluation Date of Evaluation: 05/04/17 Time of Evaluation: 11:24 - Subjective Subjective: Patient remained lethargic on respiratory . Vital sign noted to be stable Objective - Vital Signs/Intake and Output Vital Signs (last 24 hours): Temp Pulse Resp BP Pulse Ox 98.2 F 98 H 15 150/8 L 100 05/04/17 08:00 05/04/17 10:00 05/04/17 10:00 05/04/17 10:00 05/04/17 10:00 Intake and Output: 05/04/17 05/04/17 06:59 18:59 Intake Total 870 550 Output Total 1800 Balance -930 550 - Medications Medications: Current Medications Ascorbic Acid (Vitamin C 250 Mg Tab) 250 mg PO DAILY [facility] Last Admin: 05/04/17 09:12 Dose: Not Given Cholestyramine Resin (Questran) 4 gm PO DAILY [facility] Last Admin: 05/04/17 09:10 Dose: Not Given Collagenase (Santyl) 1 applic TOP Q12 [facility] Last Admin: 05/04/17 09:11 Dose: 1 applic Dimethicone (Proshield Plus Skin Protectant) 1 applic TOP Q8 [facility] Last Admin: 05/04/17 09:10 Dose: 1 applic Hydrocortisone Sodium Succinate (Solu-Cortef) 10 mg IV Q12 [facility] Last Admin: 05/04/17 09:11 Dose: 10 mg Clindamycin in NS (Clindamycin 300 Mg/50 Ml-Ns) 300 mg in 50 mls @ 50 mls/hr IVPB Q12 [facility] PRN Reason: Protocol Last Admin: 05/04/17 09:08 Dose: 50 mls/hr Linezolid (Zyvox 600mg/300ml D5w) 600 mg in 300 mls @ 300 mls/hr IVPB Q12 [facility] PRN Reason: Protocol Last Admin: 05/04/17 09:12 Dose: 300 mls/hr Tobramycin Sulfate 60 mg/ (Sodium Chloride) 51.5 mls @ 50.739 mls/hr IV Q24H [facility] Last Admin: 05/04/17 10:27 Dose: 50.739 mls/hr Potassium Chloride/Dextrose/Sod Cl (D5-Ns1l+40meq Kcl) 1,000 mls @ 40 mls/hr IV .Q24H [facility] Last Admin: 05/04/17 01:41 Dose: 40 mls/hr Potassium Chloride (Potassium Cl 10meq/50ml Sterile Water) 50 mls @ 50 mls/hr IVPB Q1 [facility] Stop: 05/04/17 11:59 Last Admin: 05/04/17 11:08 Dose: 50 mls/hr Potassium Chloride (Potassium Cl 10meq/50ml Sterile Water) 50 mls @ 50 mls/hr IVPB Q1 [facility] Stop: 05/04/17 11:59 Lactobacillus Acidophilus (Bacid Acidophilus) 1 cap PO BID [facility] Last Admin: 05/04/17 09:07 Dose: Not Given Pantoprazole Sodium (Protonix Susp) 40 mg NG DAILY [facility] Last Admin: 05/04/17 09:10 Dose: Not Given Thiamine HCl (Vitamin B1 Tab) 200 mg PO Q12H [facility] Last Admin: 05/04/17 09:12 Dose: Not Given Zinc Sulfate (Zinc Sulfate 220 Mg Cap) 220 mg PO DAILY [facility] Last Admin: 05/04/17 09:12 Dose: Not Given - Labs Labs: 05/04/17 04:20 05/04/17 04:20 PT 12.1 Seconds (9.8-13.1) 05/01/17 02:35 INR 1.1 (0.9-1.2) 05/01/17 02:35 APTT 26.2 Seconds (25.6-37.1) 05/01/17 02:35 - Constitutional Appears: No Acute Distress - ENT Exam ENT Exam: Mucous Membranes Moist - Neck Exam Neck Exam: absent: Lymphadenopathy - Respiratory Exam Respiratory Exam: absent: Chest Wall Tenderness - Cardiovascular Exam Cardiovascular Exam: absent: JVD, Rubs - GI/Abdominal Exam GI & Abdominal Exam: Soft - Extremities Exam Extremities Exam: absent: Calf Tenderness - Back Exam Back Exam: absent: CVA tenderness (L), CVA tenderness (R) - Neurological Exam Neurological Exam: Altered Assessment and Plan (1) Acute renal injury due to circulatory failure Assessment & Plan: Patient recover from acute kidney injury. Serum creatinine 0.9. Persistent hypokalemia patient to receive 4 doses of intravenous potassium chloride. Patient need also more magnesium intravenously to keep serum magnesium around 2.0 The rest of the issue no changes continue the same as noted Status: Acute (2) Altered mental status Status: Acute (3) GI bleed Status: Acute
--- NOTE | 2017-05-04 11:29 | CP.PCM.PN ---
Subjective - Subjective Subjective: Eyes open, Patient appears to understand conversations Objective - Vital Signs/Intake and Output Vital Signs (last 24 hours): Temp Pulse Resp BP Pulse Ox 98.2 F 98 H 15 150/8 L 100 05/04/17 08:00 05/04/17 10:00 05/04/17 10:00 05/04/17 10:00 05/04/17 10:00 Intake and Output: 05/04/17 05/04/17 06:59 18:59 Intake Total 870 550 Output Total 1800 Balance -930 550 - Medications Medications: Current Medications Ascorbic Acid (Vitamin C 250 Mg Tab) 250 mg PO DAILY [facility] Last Admin: 05/04/17 09:12 Dose: Not Given Cholestyramine Resin (Questran) 4 gm PO DAILY [facility] Last Admin: 05/04/17 09:10 Dose: Not Given Collagenase (Santyl) 1 applic TOP Q12 [facility] Last Admin: 05/04/17 09:11 Dose: 1 applic Dimethicone (Proshield Plus Skin Protectant) 1 applic TOP Q8 [facility] Last Admin: 05/04/17 09:10 Dose: 1 applic Hydrocortisone Sodium Succinate (Solu-Cortef) 10 mg IV Q12 [facility] Last Admin: 05/04/17 09:11 Dose: 10 mg Clindamycin in NS (Clindamycin 300 Mg/50 Ml-Ns) 300 mg in 50 mls @ 50 mls/hr IVPB Q12 [facility] PRN Reason: Protocol Last Admin: 05/04/17 09:08 Dose: 50 mls/hr Linezolid (Zyvox 600mg/300ml D5w) 600 mg in 300 mls @ 300 mls/hr IVPB Q12 [facility] PRN Reason: Protocol Last Admin: 05/04/17 09:12 Dose: 300 mls/hr Tobramycin Sulfate 60 mg/ (Sodium Chloride) 51.5 mls @ 50.739 mls/hr IV Q24H [facility] Last Admin: 05/04/17 10:27 Dose: 50.739 mls/hr Potassium Chloride/Dextrose/Sod Cl (D5-Ns1l+40meq Kcl) 1,000 mls @ 40 mls/hr IV .Q24H [facility] Last Admin: 05/04/17 01:41 Dose: 40 mls/hr Potassium Chloride (Potassium Cl 10meq/50ml Sterile Water) 50 mls @ 50 mls/hr IVPB Q1 [facility] Stop: 05/04/17 11:59 Last Admin: 05/04/17 11:08 Dose: 50 mls/hr Potassium Chloride (Potassium Cl 10meq/50ml Sterile Water) 50 mls @ 50 mls/hr IVPB Q1 [facility] Stop: 05/04/17 11:59 Lactobacillus Acidophilus (Bacid Acidophilus) 1 cap PO BID [facility] Last Admin: 05/04/17 09:07 Dose: Not Given Pantoprazole Sodium (Protonix Susp) 40 mg NG DAILY [facility] Last Admin: 05/04/17 09:10 Dose: Not Given Thiamine HCl (Vitamin B1 Tab) 200 mg PO Q12H [facility] Last Admin: 05/04/17 09:12 Dose: Not Given Zinc Sulfate (Zinc Sulfate 220 Mg Cap) 220 mg PO DAILY [facility] Last Admin: 05/04/17 09:12 Dose: Not Given - Labs Labs: 05/04/17 04:20 05/04/17 04:20 PT 12.1 Seconds (9.8-13.1) 05/01/17 02:35 INR 1.1 (0.9-1.2) 05/01/17 02:35 APTT 26.2 Seconds (25.6-37.1) 05/01/17 02:35 - Constitutional Appears: Chronically Ill - Head Exam Head Exam: NORMAL INSPECTION - Eye Exam Eye Exam: PERRL - ENT Exam ENT Exam: Normal Exam - Neck Exam Additional comments: Tracheostomy - Respiratory Exam Respiratory Exam: Decreased Breath Sounds (at bases) - Cardiovascular Exam Cardiovascular Exam: REGULAR RHYTHM - GI/Abdominal Exam GI & Abdominal Exam: Soft, Normal Bowel Sounds - Extremities Exam Extremities Exam: Pedal Edema - Back Exam Additional comments: multiple decubitus - Neurological Exam Additional comments: eyesopen , not following commands , generalized weakness , not moving extremities on command Assessment and Plan (1) Acute respiratory failure Status: Acute (2) Status post tracheostomy Status: Acute (3) Pneumonia Status: Acute (4) Acute renal failure (ARF) Status: Acute (5) Anemia Status: Acute (6) Thrombocytopenia Status: Resolved (7) History of pulmonary embolus (PE) Status: Acute
--- NOTE | 2017-05-04 11:38 | CP.PCM.PN ---
Subjective - Date & Time of Evaluation Date of Evaluation: 05/04/17 - Subjective Subjective: Eyes open, appears to understand conversations Objective - Vital Signs/Intake and Output Vital Signs (last 24 hours): Temp Pulse Resp BP Pulse Ox 98.2 F 98 H 15 150/8 L 100 05/04/17 08:00 05/04/17 10:00 05/04/17 10:00 05/04/17 10:00 05/04/17 10:00 Intake and Output: 05/04/17 05/04/17 06:59 18:59 Intake Total 870 550 Output Total 1800 Balance -930 550 - Medications Medications: Current Medications Ascorbic Acid (Vitamin C 250 Mg Tab) 250 mg PO DAILY [facility] Last Admin: 05/04/17 09:12 Dose: Not Given Cholestyramine Resin (Questran) 4 gm PO DAILY [facility] Last Admin: 05/04/17 09:10 Dose: Not Given Collagenase (Santyl) 1 applic TOP Q12 [facility] Last Admin: 05/04/17 09:11 Dose: 1 applic Dimethicone (Proshield Plus Skin Protectant) 1 applic TOP Q8 [facility] Last Admin: 05/04/17 09:10 Dose: 1 applic Hydrocortisone Sodium Succinate (Solu-Cortef) 10 mg IV Q12 [facility] Last Admin: 05/04/17 09:11 Dose: 10 mg Clindamycin in NS (Clindamycin 300 Mg/50 Ml-Ns) 300 mg in 50 mls @ 50 mls/hr IVPB Q12 [facility] PRN Reason: Protocol Last Admin: 05/04/17 09:08 Dose: 50 mls/hr Linezolid (Zyvox 600mg/300ml D5w) 600 mg in 300 mls @ 300 mls/hr IVPB Q12 [facility] PRN Reason: Protocol Last Admin: 05/04/17 09:12 Dose: 300 mls/hr Tobramycin Sulfate 60 mg/ (Sodium Chloride) 51.5 mls @ 50.739 mls/hr IV Q24H [facility] Last Admin: 05/04/17 10:27 Dose: 50.739 mls/hr Potassium Chloride/Dextrose/Sod Cl (D5-Ns1l+40meq Kcl) 1,000 mls @ 40 mls/hr IV .Q24H [facility] Last Admin: 05/04/17 01:41 Dose: 40 mls/hr Potassium Chloride (Potassium Cl 10meq/50ml Sterile Water) 50 mls @ 50 mls/hr IVPB Q1 [facility] Stop: 05/04/17 11:59 Last Admin: 05/04/17 11:08 Dose: 50 mls/hr Potassium Chloride (Potassium Cl 10meq/50ml Sterile Water) 50 mls @ 50 mls/hr IVPB Q1 [facility] Stop: 05/04/17 11:59 Lactobacillus Acidophilus (Bacid Acidophilus) 1 cap PO BID [facility] Last Admin: 05/04/17 09:07 Dose: Not Given Pantoprazole Sodium (Protonix Susp) 40 mg NG DAILY [facility] Last Admin: 05/04/17 09:10 Dose: Not Given Thiamine HCl (Vitamin B1 Tab) 200 mg PO Q12H [facility] Last Admin: 05/04/17 09:12 Dose: Not Given Zinc Sulfate (Zinc Sulfate 220 Mg Cap) 220 mg PO DAILY [facility] Last Admin: 05/04/17 09:12 Dose: Not Given - Labs Labs: 05/04/17 04:20 05/04/17 04:20 PT 12.1 Seconds (9.8-13.1) 05/01/17 02:35 INR 1.1 (0.9-1.2) 05/01/17 02:35 APTT 26.2 Seconds (25.6-37.1) 05/01/17 02:35 - Constitutional Appears: Chronically Ill - Head Exam Head Exam: NORMAL INSPECTION - Eye Exam Eye Exam: PERRL - ENT Exam ENT Exam: Normal Exam - Neck Exam Additional comments: Tracheostomy - Respiratory Exam Respiratory Exam: Decreased Breath Sounds (at bases) - Cardiovascular Exam Cardiovascular Exam: REGULAR RHYTHM - GI/Abdominal Exam GI & Abdominal Exam: Soft, Normal Bowel Sounds - Extremities Exam Extremities Exam: Pedal Edema Additional comments: L heel and R lateral ankle DTI, MASD R flank - Back Exam Additional comments: multiple dscubitus - Neurological Exam Additional comments: Awake, generalized weakness , not moving extremities on commands - Skin Skin Exam: Warm Assessment and Plan (1) Acute respiratory failure Status: Acute (2) Status post tracheostomy Status: Acute (3) Pneumonia Status: Acute (4) Acute renal failure (ARF) Status: Acute (5) Anemia Status: Acute (6) Thrombocytopenia Status: Resolved (7) History of pulmonary embolus (PE) Status: Acute (8) Intensive care (ICU) myopathy Status: Acute - Assessment and Plan (Free Text) Plan: Neuro f/u appreciated , PEG tube cancelled due to hypokalemia , K replacement , attempt to PEG tube insertion in am
--- NOTE | 2017-05-04 15:19 | CP.CCUPN ---
CCU Subjective - Physician Review Subjective (Free Text): Remains responsive and opens eyes, interactive to simple commands. Tolerating CPAP 5, PS 15 trials since yesterday morning. Placed on lower PS CPAP levels as well as FiO2 to 35% and tolerating well. Other vitals and I/O's reviewed. No fever spikes last 48H. Fluid balance : 1082ml negative. ROS: Unobtainable from intubated Patient. No other pertinent negs or positives on 10+ system review. PMSFH: All Nursing and physician documentation reviewed to date; no new pertinent info noted relevant to current medical problems. CXR: none ordered since 05/01: essentially unchanged and stable: trach tube position ok within tracheal air column, no new consolidation ( my interp). MAJOR PROBLEMS: 1. +Kleb pneumoniae (ESBL) and E. faecalis Bacteremia 2. Septic Shock 2 #1 3. Acute Renal Failure / ATN 4. Acute Resp Failure, 2 pneumonia 5. Thrombocytopenia / Coagulopathy- near-resolved. PLAN: 1. MV weans again as tolerated, expect good tolerance for trach collar trials once potassium levels have been repleted. 2. Additional K to be repleted today, Total = 120 Meq. 3. Maintain Seizure precautions. 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 4. Check repeat coags. 5. PEG today cancelled until hypokalemia has been effectively treated, resolved and stable. 6. Will finally stop steroids today. CCU Objective - Vital Signs / Intake & Output Vital Signs (Last 4 hours): Vital Signs Temp Pulse Resp BP Pulse Ox 05/04/17 14:00 106 H 16 146/82 100 05/04/17 12:00 97.7 F 100 H 12 153/87 H 100 Intake and Output (Last 8hrs): Intake & Output 05/04/17 05/04/17 05/04/17 06:59 14:59 22:59 Intake Total 280 700 Output Total 1800 Balance -1520 700 Weight 179 lb Intake: IV 280 Intake, Piggyback 700 Output: Urine 1800 Urethral ([place]) 1800 Other: # Bowel Movements 1 - Physical Exam Head: Positive for: Atraumatic, Normocephalic. Negative for: Tenderness, Contusion Pupils: Positive for: PERRL. Negative for: Sluggish, Non-Reactive Extroacular Muscles: Negative for: Gaze Palsy Conjunctiva: Positive for: Normal. Negative for: Injected, Icteric Mouth: Positive for: Dry (bloody) Neck: Negative for: JVD Respiratory/Chest: Positive for: Decreased Breath Sounds, Rhonchi. Negative for : Accessory Muscle Use, Wheezes Cardiovascular: Positive for: Tachycardic. Negative for: Murmurs, Rub Abdomen: Positive for: Distention, Normal Bowel Sounds. Negative for: Tenderness Upper Extremity: Positive for: Edema Lower Extremity: Positive for: Edema. Negative for: CALF TENDERNESS, NORMAL PULSES, Cyanosis Neurological: Positive for: Other (on ventilator) Skin: Positive for: Warm, Dry. Negative for: Rashes Psychiatric: Positive for: Alert, Normal Affect - Medications Active Medications: Active Medications Generic Name Dose Route Start Last Admin Trade Name Freq PRN Reason Stop Dose Admin Ascorbic Acid 250 mg 05/03/17 14:30 05/04/17 09:12 Vitamin C 250 Mg Tab PO Not Given DAILY [facility] Cholestyramine Resin 4 gm 05/02/17 14:15 05/04/17 09:10 Questran PO Not Given DAILY [facility] Collagenase 1 applic 04/25/17 21:00 05/04/17 09:11 Santyl TOP 1 applic Q12 [facility] Administration Dimethicone 1 applic 04/25/17 17:00 05/04/17 09:10 Proshield Plus Skin Protectant TOP 1 applic Q8 [facility] Administration Hydrocortisone Sodium Succinate 10 mg 05/03/17 21:00 05/04/17 09:11 Solu-Cortef IV 10 mg Q12 [facility] Administration Clindamycin in NS 300 mg in 50 mls @ 50 mls/hr 04/19/17 21:00 05/04/17 09:08 Clindamycin 300 Mg/50 Ml-Ns IVPB 50 mls/hr Q12 [facility] Administration Protocol Linezolid 600 mg in 300 mls @ 300 mls/hr 04/25/17 21:00 05/04/17 09:12 Zyvox 600mg/300ml D5w IVPB 300 mls/hr Q12 [facility] Administration Protocol Tobramycin Sulfate 60 mg/ 51.5 mls @ 50.739 mls/hr 04/26/17 11:00 05/04/17 10 :27 Sodium Chloride IV 50.739 mls/hr Q24H [facility] Administration Potassium Chloride/Dextrose/Sod Cl 1,000 mls @ 40 mls/hr 05/04/17 01:15 05/04 01:41 D5-Ns1l+40meq Kcl IV 40 mls/hr .Q24H [facility] Administration Lactobacillus Acidophilus 1 cap 05/02/17 17:00 05/04/17 09:07 Bacid Acidophilus PO Not Given BID [facility] Pantoprazole Sodium 40 mg 04/14/17 10:30 05/04/17 09:10 Protonix Susp NG Not Given DAILY [facility] Thiamine HCl 200 mg 04/13/17 21:00 05/04/17 09:12 Vitamin B1 Tab PO Not Given Q12H [facility] Zinc Sulfate 220 mg 05/03/17 14:30 05/04/17 09:12 Zinc Sulfate 220 Mg Cap PO Not Given DAILY [facility] - Patient Studies Lab Studies: Lab Studies 05/04/17 05/04/17 05/04/17 Range/Units 05:29 04:20 04:20 WBC 11.1 H (4.8-10.8) K/uL RBC 3.05 L (3.80-5.20) Mil/uL Hgb 8.3 L (12.0-16.0) g/dL Hct 25.9 L (34.0-47.0) % MCV 84.9 (81.0-99.0) fl MCH 27.3 (27.0-31.0) pg MCHC 32.2 L (33.0-37.0) g/dL RDW 17.0 H (11.5-14.5) % Plt Count 219 (130-400) K/uL pCO2 21 L (35-45) mm/Hg pO2 160 H (80-100) mm/Hg HCO3 24.7 (21-28) mmol/L ABG pH 7.60 H (7.35-7.45) ABG Total CO2 21.2 L (22-28) mmol/L ABG O2 Saturation 100.4 H (95-98) % ABG O2 Content 11.2 L (15-23) ML/dL ABG Base Excess -0.3 (-2.0-3.0) mmol/L ABG Hemoglobin 8.1 L (11.7-17.4) g/dL ABG Carboxyhemoglobin 1.5 (0.5-1.5) % POC ABG HHb (Measured) -0.4 L (0.0-5.0) % ABG Methemoglobin 4.3 H (0.0-3.0) % ABG O2 Capacity 11.2 L (16-24) mL/dL Domingo Test Yes A-a O2 Difference 99.0 mm/Hg Hgb O2 Saturation 94.6 L (95.0-98.0) % Vent Mode Cpap ps FiO2 40.0 % PEEP 5 Pressure Support 15 Sodium 142 (132-148) mmol/l Potassium 2.9 L (3.6-5.0) MMOL/L Chloride 109 H (98-107) mmol/L Carbon Dioxide 23 (22-30) mmol/L Anion Gap 13 (10-20) BUN 29 H (7-17) mg/dl Creatinine 0.9 (0.7-1.2) mg/dl Est GFR ( Amer) > 60 Est GFR (Non-Af Amer) > 60 Random Glucose 96 (65-105) mg/dL Calcium 8.1 L (8.4-10.2) mg/dL Magnesium 1.6 (1.6-2.3) MG/DL Laboratory Results - last 24 hr 05/04/17 05/04/17 05/04/17 04:20 04:20 05:29 WBC 11.1 H RBC 3.05 L Hgb 8.3 L Hct 25.9 L MCV 84.9 MCH 27.3 MCHC 32.2 L RDW 17.0 H Plt Count 219 pCO2 21 L pO2 160 H HCO3 24.7 ABG pH 7.60 H ABG Total CO2 21.2 L ABG O2 Saturation 100.4 H ABG O2 Content 11.2 L ABG Base Excess -0.3 ABG Hemoglobin 8.1 L ABG Carboxyhemoglobin 1.5 POC ABG HHb (Measured) -0.4 L ABG Methemoglobin 4.3 H ABG O2 Capacity 11.2 L Domingo Test Yes A-a O2 Difference 99.0 Hgb O2 Saturation 94.6 L Vent Mode Cpap ps FiO2 40.0 PEEP 5 Pressure Support 15 Sodium 142 Potassium 2.9 L Chloride 109 H Carbon Dioxide 23 Anion Gap 13 BUN 29 H Creatinine 0.9 Est GFR ( Amer) > 60 Est GFR (Non-Af Amer) > 60 Random Glucose 96 Calcium 8.1 L Magnesium 1.6 Fingerstick Blood Sugar Results: 221 Critical Care Progress Note - Nutrition Nutrition: Nutrition Category Date Time Status NPO Diet [DIET] Diets 04/19/17 Breakfast Active
--- NOTE | 2017-05-04 18:46 | CP.PCM.PN ---
Subjective - Date & Time of Evaluation Date of Evaluation: 05/04/17 Time of Evaluation: 18:42 - Subjective Subjective: patient seen in bed two main areas of concern. The first on the right flank is being treated with collagenase and improving with notable reduction slough in 2 of the 3 wounds. One still with eschar. I would not debride given exposure to contaminants that may arise. The second area is the entire perineum/buttock/sacrum/posterior thigh area. this is to have Proshield. This is a mess. The entire area is macerated now with stage II and now III wounds. She is on clinitron with castillo. There is copious loose stool. she should have a colostomy if she can undergo this procedure. With continued loose bm this will not heal and will only worsen regardless of the treatment. Objective - Vital Signs/Intake and Output Vital Signs (last 24 hours): Temp Pulse Resp BP Pulse Ox 97.6 F 114 H 15 160/85 H 100 05/04/17 16:00 05/04/17 18:00 05/04/17 18:00 05/04/17 18:00 05/04/17 18:00 Intake and Output: 05/04/17 05/04/17 06:59 18:59 Intake Total 870 1690 Output Total 1800 1450 Balance -930 240 - Medications Medications: Current Medications Ascorbic Acid (Vitamin C 250 Mg Tab) 250 mg PO DAILY [facility] Last Admin: 05/04/17 09:12 Dose: Not Given Cholestyramine Resin (Questran) 4 gm PO DAILY [facility] Last Admin: 05/04/17 09:10 Dose: Not Given Collagenase (Santyl) 1 applic TOP Q12 [facility] Last Admin: 05/04/17 09:11 Dose: 1 applic Dimethicone (Proshield Plus Skin Protectant) 1 applic TOP Q8 [facility] Last Admin: 05/04/17 16:07 Dose: 1 applic Hydrocortisone Sodium Succinate (Solu-Cortef) 10 mg IV Q12 [facility] Last Admin: 05/04/17 09:11 Dose: 10 mg Clindamycin in NS (Clindamycin 300 Mg/50 Ml-Ns) 300 mg in 50 mls @ 50 mls/hr IVPB Q12 [facility] PRN Reason: Protocol Last Admin: 05/04/17 09:08 Dose: 50 mls/hr Linezolid (Zyvox 600mg/300ml D5w) 600 mg in 300 mls @ 300 mls/hr IVPB Q12 [facility] PRN Reason: Protocol Last Admin: 05/04/17 09:12 Dose: 300 mls/hr Tobramycin Sulfate 60 mg/ (Sodium Chloride) 51.5 mls @ 50.739 mls/hr IV Q24H [facility] Last Admin: 05/04/17 10:27 Dose: 50.739 mls/hr Potassium Chloride/Dextrose/Sod Cl (D5-Ns1l+40meq Kcl) 1,000 mls @ 40 mls/hr IV .Q24H [facility] Last Admin: 05/04/17 01:41 Dose: 40 mls/hr Lactobacillus Acidophilus (Bacid Acidophilus) 1 cap PO BID [facility] Last Admin: 05/04/17 16:05 Dose: 1 cap Pantoprazole Sodium (Protonix Susp) 40 mg NG DAILY [facility] Last Admin: 05/04/17 15:50 Dose: 40 mg Thiamine HCl (Vitamin B1 Tab) 200 mg PO Q12H [facility] Last Admin: 05/04/17 09:12 Dose: Not Given Zinc Sulfate (Zinc Sulfate 220 Mg Cap) 220 mg PO DAILY [facility] Last Admin: 05/04/17 09:12 Dose: Not Given - Labs Labs: 05/04/17 04:20 05/04/17 04:20 PT 12.1 Seconds (9.8-13.1) 05/01/17 02:35 INR 1.1 (0.9-1.2) 05/01/17 02:35 APTT 26.2 Seconds (25.6-37.1) 05/01/17 02:35
[2017-05-05] MEDS: Proshield Plus GEL TOP SCH ×2 (00:31→08:38)
[2017-05-05 05:20] LABS: ABG ALLEN TEST YES; ARTERIAL BLOOD GAS HCO3 22.5 mmol/L (21-28); ARTERIAL BLOOD GAS MODE CPAP; ARTERIAL BLOOD GAS O2 CAPACITY 12.8 mL/dL (16-24); ARTERIAL BLOOD GAS O2 CONTENT 12.8 ML/dL (15-23); ARTERIAL BLOOD GAS PH 7.33 (7.35-7.45); ARTERIAL BLOOD GAS PO2 139 mm/Hg (80-100); ARTERIAL BLOOD HGB O2 SAT 96.3 % (95.0-98.0); ATERIAL BLOOD GAS PEEP 5; CARBOXYHEMOGLOBIN 1.8 % (0.5-1.5); HHB 0.1 % (0.0-5.0); METHEMOGLOBIN 1.8 % (0.0-3.0)
[2017-05-05 05:22] LABS: MEAN CELL VOLUME 86.1 fl (81.0-99.0); MEAN CORPUSCULAR HEMOGLOBIN 27.7 pg (27.0-31.0); MEAN CORPUSCULAR HGB CONC 32.1 g/dL (33.0-37.0); RED CELL DISTRIBUTION WIDTH 17.7 % (11.5-14.5); WHITE BLOOD COUNT 12.6 K/uL (4.8-10.8)
[2017-05-05 05:56] LABS: ALKALINE PHOSPHATASE 266 U/L (38-126); ALT/SGPT 59 U/L (9-52); AST/SGOT 31 U/L (14-36); BILIRUBIN,TOTAL 0.6 mg/dl (0.2-1.3); BLOOD UREA NITROGEN 26 mg/dl (7-17); CALCIUM 8.4 mg/dL (8.4-10.2); CARBON DIOXIDE 24 mmol/L (22-30); CHLORIDE 111 mmol/L (98-107); GFR AFRICAN-AMERICAN > 60; GLUCOSE,RANDOM 114 mg/dL (65-105); POTASSIUM 4.4 MMOL/L (3.6-5.0); SODIUM 144 mmol/l (132-148); TOTAL PROTEIN 6.1 G/DL (6.3-8.2)
[2017-05-05] MEDS ORDERED: Potassium Chl 40 mEq in D5-NS 1,000 ML IV SCH (06:00)
[2017-05-05] MEDS ORDERED: Dextrose 5%/0.9% NS 1,000 ML IV SCH (07:15)
--- NOTE | 2017-05-05 07:24 | CP.CCUPN ---
CCU Subjective - Physician Review Subjective (Free Text): Remains responsive and opens eyes, interactive to simple commands. Tolerating CPAP 5, lowered PS to 8 since yesterday morning. Other vitals and I/O's reviewed. No fever spikes last 48H. Fluid balance : approx 500ml negative. ROS: Unobtainable from intubated Patient. No other pertinent negs or positives on 10+ system review. PMSFH: All Nursing and physician documentation reviewed to date; no new pertinent info noted relevant to current medical problems. CXR: none ordered since 05/01: essentially unchanged and stable: trach tube position ok within tracheal air column, no new consolidation ( my interp). MAJOR PROBLEMS: 1. +Kleb pneumoniae (ESBL) and E. faecalis Bacteremia 2. Septic Shock 2 #1 3. Acute Renal Failure / ATN 4. Acute Resp Failure, 2 pneumonia 5. Thrombocytopenia / Coagulopathy- near-resolved. PLAN: 1. K levels normalized, will try trach collar today. 2. K to repleted: Total = 120 Meq. yesterday, watch for stability given peristent diarrheal losses. 3. Maintain Seizure precautions. 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 4. Check repeat coags. 5. PEG today cancelled until hypokalemia has been effectively treated, resolved and stable. 6. Off steroids ttoday, Vit C already reducd to maintenacen dose, Thiamine reduced today. CCU Objective - Vital Signs / Intake & Output Vital Signs (Last 4 hours): Vital Signs Temp Pulse Resp BP Pulse Ox 05/05/17 06:00 98.6 F 110 H 18 148/80 100 05/05/17 03:28 110 H 16 154/86 H 100 Intake and Output (Last 8hrs): Intake & Output 05/04/17 05/05/17 05/05/17 22:59 06:59 14:59 Intake Total 1530 710 Output Total 1450 1999 Balance 80 -1290 Intake: IV 540 320 Intake, Piggyback 450 Tube Feeding 240 240 Free Water Flush 300 150 Output: Urine 1450 2000 Urethral ([place]) 1450 2000 Other: # Bowel Movements 1 1 - Physical Exam Head: Positive for: Atraumatic, Normocephalic. Negative for: Tenderness, Contusion Pupils: Positive for: PERRL. Negative for: Sluggish, Non-Reactive Extroacular Muscles: Negative for: Gaze Palsy Conjunctiva: Positive for: Normal. Negative for: Injected, Icteric Mouth: Positive for: Dry (bloody) Neck: Negative for: JVD Respiratory/Chest: Positive for: Decreased Breath Sounds, Rhonchi. Negative for : Accessory Muscle Use, Wheezes Cardiovascular: Positive for: Tachycardic. Negative for: Murmurs, Rub Abdomen: Positive for: Distention, Normal Bowel Sounds. Negative for: Tenderness Upper Extremity: Positive for: Edema Lower Extremity: Positive for: Edema. Negative for: CALF TENDERNESS, NORMAL PULSES, Cyanosis Neurological: Positive for: Other (on ventilator) Skin: Positive for: Warm, Dry. Negative for: Rashes Psychiatric: Positive for: Alert, Normal Affect - Medications Active Medications: Active Medications Generic Name Dose Route Start Last Admin Trade Name Freq PRN Reason Stop Dose Admin Ascorbic Acid 250 mg 05/03/17 14:30 05/04/17 21:26 Vitamin C 250 Mg Tab PO 250 mg DAILY [facility] Administration Cholestyramine Resin 4 gm 05/02/17 14:15 05/04/17 21:26 Questran PO 4 gm DAILY [facility] Administration Collagenase 1 applic 04/25/17 21:00 05/04/17 21:27 Santyl TOP 1 applic Q12 [facility]ETTE Administration Dimethicone 1 applic 04/25/17 17:00 05/05/17 00:31 Proshield Plus Skin Protectant TOP 1 applic Q8 [facility]ETTE Administration Hydrocortisone Sodium Succinate 10 mg 05/05/17 09:00 Solu-Cortef IV DAILY [facility] Clindamycin in NS 300 mg in 50 mls @ 50 mls/hr 04/19/17 21:00 05/04/17 21:25 Clindamycin 300 Mg/50 Ml-Ns IVPB 50 mls/hr Q12 [facility]TE Administration Protocol Linezolid 600 mg in 300 mls @ 300 mls/hr 04/25/17 21:00 05/04/17 21:28 Zyvox 600mg/300ml D5w IVPB 300 mls/hr Q12 [facility] Administration Protocol Tobramycin Sulfate 60 mg/ 51.5 mls @ 50.739 mls/hr 04/26/17 11:00 05/04/17 10 :27 Sodium Chloride IV 50.739 mls/hr Q24H [facility] Administration Dextrose/Sodium Chloride 1,000 mls @ 40 mls/hr 05/05/17 07:15 05/05/17 07:11 Dextrose 5%/0.9% Ns 1000 Ml IV 05/06/17 07:03 40 mls/hr .Q24H [facility] Administration Lactobacillus Acidophilus 1 cap 05/02/17 17:00 05/04/17 16:05 Bacid Acidophilus PO 1 cap BID [facility]TE Administration Pantoprazole Sodium 40 mg 04/14/17 10:30 05/04/17 15:50 Protonix Susp NG 40 mg DAILY [facility] Administration Thiamine HCl 100 mg 05/05/17 09:00 Vitamin B1 Tab PO DAILY [facility] Zinc Sulfate 220 mg 05/03/17 14:30 05/04/17 21:26 Zinc Sulfate 220 Mg Cap PO 220 mg DAILY [facility] Administration - Patient Studies Lab Studies: Lab Studies 05/05/17 05/05/17 05/05/17 Range/Units 05:07 04:20 04:20 WBC 12.6 H (4.8-10.8) K/uL RBC 3.14 L (3.80-5.20) Mil/uL Hgb 8.7 L (12.0-16.0) g/dL Hct 27.0 L (34.0-47.0) % MCV 86.1 (81.0-99.0) fl MCH 27.7 (27.0-31.0) pg MCHC 32.1 L (33.0-37.0) g/dL RDW 17.7 H (11.5-14.5) % Plt Count 237 (130-400) K/uL pCO2 43 (35-45) mm/Hg pO2 139 H (80-100) mm/Hg HCO3 22.5 (21-28) mmol/L ABG pH 7.33 L (7.35-7.45) ABG Total CO2 24.0 (22-28) mmol/L ABG O2 Saturation 99.9 H (95-98) % ABG O2 Content 12.8 L (15-23) ML/dL ABG Base Excess -3.1 L (-2.0-3.0) mmol/L ABG Hemoglobin 9.2 L (11.7-17.4) g/dL ABG Carboxyhemoglobin 1.8 H (0.5-1.5) % POC ABG HHb (Measured) 0.1 (0.0-5.0) % ABG Methemoglobin 1.8 (0.0-3.0) % ABG O2 Capacity 12.8 L (16-24) mL/dL Domingo Test Yes A-a O2 Difference 57.0 mm/Hg Hgb O2 Saturation 96.3 (95.0-98.0) % Vent Mode Cpap FiO2 35.0 % PEEP 5 Pressure Support 8 Sodium 144 (132-148) mmol/l Potassium 4.4 (3.6-5.0) MMOL/L Chloride 111 H (98-107) mmol/L Carbon Dioxide 24 (22-30) mmol/L Anion Gap 13 (10-20) BUN 26 H (7-17) mg/dl Creatinine 0.8 (0.7-1.2) mg/dl Est GFR ( Amer) > 60 Est GFR (Non-Af Amer) > 60 Random Glucose 114 H (65-105) mg/dL Calcium 8.4 (8.4-10.2) mg/dL Total Bilirubin 0.6 (0.2-1.3) mg/dl AST 31 (14-36) U/L ALT 59 H (9-52) U/L Alkaline Phosphatase 266 H D (38-126) U/L Total Protein 6.1 L (6.3-8.2) G/DL Albumin 3.0 L (3.5-5.0) g/dL Globulin 3.1 (2.2-3.9) gm/dL Albumin/Globulin Ratio 1.0 (1.0-2.1) Laboratory Results - last 24 hr 05/05/17 05/05/17 05/05/17 04:20 04:20 05:07 WBC 12.6 H RBC 3.14 L Hgb 8.7 L Hct 27.0 L MCV 86.1 MCH 27.7 MCHC 32.1 L RDW 17.7 H Plt Count 237 pCO2 43 pO2 139 H HCO3 22.5 ABG pH 7.33 L ABG Total CO2 24.0 ABG O2 Saturation 99.9 H ABG O2 Content 12.8 L ABG Base Excess -3.1 L ABG Hemoglobin 9.2 L ABG Carboxyhemoglobin 1.8 H POC ABG HHb (Measured) 0.1 ABG Methemoglobin 1.8 ABG O2 Capacity 12.8 L Domingo Test Yes A-a O2 Difference 57.0 Hgb O2 Saturation 96.3 Vent Mode Cpap FiO2 35.0 PEEP 5 Pressure Support 8 Sodium 144 Potassium 4.4 Chloride 111 H Carbon Dioxide 24 Anion Gap 13 BUN 26 H Creatinine 0.8 Est GFR ( Amer) > 60 Est GFR (Non-Af Amer) > 60 Random Glucose 114 H Calcium 8.4 Total Bilirubin 0.6 AST 31 ALT 59 H Alkaline Phosphatase 266 H D Total Protein 6.1 L Albumin 3.0 L Globulin 3.1 Albumin/Globulin Ratio 1.0 Fingerstick Blood Sugar Results: 221 Review of Systems - Review of Systems Systems not reviewed;Unavailable: Intubated All systems: reviewed and no additional remarkable complaints except (as above) Critical Care Progress Note - Nutrition Nutrition: Nutrition Category Date Time Status NPO Diet [DIET] Diets 04/19/17 Breakfast Active
--- NOTE | 2017-05-05 07:43 | CP.PCM.PN ---
Subjective - Date & Time of Evaluation Date of Evaluation: 05/05/17 Time of Evaluation: 07:40 - Subjective Subjective: Ms. Yordy Schafer was seen and examined at the bedside in ICU. She is awake, opens her eyes spontaneously, response by nodding or shaking her head. She tries to move her fingers, but able to move very minimal her fingers. She remains on a mechanical ventilation via a tracheostomy and an NGT on the left nostril. There was no untoward events overnight. Objective - Vital Signs/Intake and Output Vital Signs (last 24 hours): Temp Pulse Resp BP Pulse Ox 98.6 F 110 H 18 148/80 100 05/05/17 06:00 05/05/17 06:00 05/05/17 06:00 05/05/17 06:00 05/05/17 06:00 Intake and Output: 05/05/17 05/05/17 06:59 18:59 Intake Total 1250 Output Total 2000 Balance -750 - Medications Medications: Current Medications Ascorbic Acid (Vitamin C 250 Mg Tab) 250 mg PO DAILY [facility] Last Admin: 05/04/17 21:26 Dose: 250 mg Cholestyramine Resin (Questran) 4 gm PO DAILY [facility] Last Admin: 05/04/17 21:26 Dose: 4 gm Collagenase (Santyl) 1 applic TOP Q12 [facility]TE Last Admin: 05/04/17 21:27 Dose: 1 applic Dimethicone (Proshield Plus Skin Protectant) 1 applic TOP Q8 [facility]TE Last Admin: 05/05/17 00:31 Dose: 1 applic Hydrocortisone Sodium Succinate (Solu-Cortef) 10 mg IV DAILY [facility] Clindamycin in NS (Clindamycin 300 Mg/50 Ml-Ns) 300 mg in 50 mls @ 50 mls/hr IVPB Q12 [facility] PRN Reason: Protocol Last Admin: 05/04/17 21:25 Dose: 50 mls/hr Linezolid (Zyvox 600mg/300ml D5w) 600 mg in 300 mls @ 300 mls/hr IVPB Q12 [facility]TE PRN Reason: Protocol Last Admin: 05/04/17 21:28 Dose: 300 mls/hr Tobramycin Sulfate 60 mg/ (Sodium Chloride) 51.5 mls @ 50.739 mls/hr IV Q24H [facility] Last Admin: 05/04/17 10:27 Dose: 50.739 mls/hr Dextrose/Sodium Chloride (Dextrose 5%/0.9% Ns 1000 Ml) 1,000 mls @ 40 mls/hr IV .Q24H [facility] Stop: 05/06/17 07:03 Last Admin: 05/05/17 07:11 Dose: 40 mls/hr Lactobacillus Acidophilus (Bacid Acidophilus) 1 cap PO BID [facility] Last Admin: 05/04/17 16:05 Dose: 1 cap Pantoprazole Sodium (Protonix Susp) 40 mg NG DAILY [facility] Last Admin: 05/04/17 15:50 Dose: 40 mg Thiamine HCl (Vitamin B1 Tab) 100 mg PO DAILY [facility] Zinc Sulfate (Zinc Sulfate 220 Mg Cap) 220 mg PO DAILY [facility] Last Admin: 05/04/17 21:26 Dose: 220 mg - Labs Labs: 05/05/17 04:20 05/05/17 04:20 PT 12.1 Seconds (9.8-13.1) 05/01/17 02:35 INR 1.1 (0.9-1.2) 05/01/17 02:35 APTT 26.2 Seconds (25.6-37.1) 05/01/17 02:35 - Constitutional Appears: No Acute Distress - Head Exam Head Exam: ATRAUMATIC - Eye Exam Pupil Exam: NORMAL ACCOMODATION Additional comments: with noted blood streak around the left pupils. - Neurological Exam Neurological Exam: Awake Neuro motor strength exam: Left Upper Extremity: 2/1, Right Upper Extremity: 2/1 , Left Lower Extremity: 0, Right Lower Extremity: 0 Additional comments: She able to response using non verbal cues. She attempts to move upper extremities fingers. There is no movement in her lower extremities. Assessment and Plan (1) Facial twitching Assessment & Plan: Case discussed with Dr. Blanco, continue all current medical regimen. Pending EEG results. Status: Acute
--- NOTE | 2017-05-05 08:03 | PQF GENQUE ---
Dr. Cornejo, (1)In agreement with the 05/04 :Wound MD documentation as follows: right flank with notable reduction slough in 2 of the 3 wounds. One still with eschar. The second area is the entire perineum/buttock/sacrum/posterior thigh area. The entire area is macerated now with stage II and now III wounds. (2) Wounds versus Decubitus? (3) Site(s) , Laterality (bilateral, left, right), and Stages of Decubitus OR:Disagree OR:Clinically unable to determine OR: Unknown OR: Other explanation of clinical finding 04/05 Wound RN: purpura back , open surgical wound mid lower abdomen, middle back skin tear 04/06 Wound RN: gluteal fold and buttock MASD and erosions, crust gluteal cleft and buttock erosions 04/08 Wound RN: Sacral MASD, lt and rt heel DTI, mid abdominal wound 04/26 Attending: macerations ulcers, DTI in back, lesions 05/03 Hot Dip Plater: skin : DTI, left and right heel, unstageable wound on the right hip as well as on the right upper back 05/04 Attending :Back Exam :Additional comments: multiple decubitus If Pressure Ulcers: Please specify stage of each pressure ulcer (National Pressure Ulcer Advisory Panel definitions): Stage I: Intact skin with non-blanchable redness of a localized area Stage II: Partial thickness skin loss involving dermis with a shallow open ulcer or an open serum-filled blister Stage III: Full thickness skin loss involving damage or necrosis of subcutaneous tissue Stage IV: Full thickness skin loss with exposed bone, tendon or muscle Unstageable: Full thickness tissue loss in which the base of the of ulcer is covered by slough and/or eschar in the wound bed Deep tissue Injury (DTI):Purple or maroon localized area of intact skin due to damage of underlying soft tissue from pressure and/or shear Other (please specify) Clinically unable to determine Unknown 4. If ulcer is not due to pressure, please specify other cause of ulcer (e.g., diabetes, PVD, varicose veins) This form is a permanent part of the medical record Clarification of your documentation is requested to better reflect the severity of illness and intensity of treatment of your patient. Indicators present [] Specify: [] [] Specify: [] [] Specify: [] [] Specify: [] Location in the medical record that reflects the above clinical findings: [] Treatment Provided: [] PHYSICIAN'S RESPONSE Based on your medical judgment of the clinical indicators outlined above please clarify the following: [] Practitioner response [] If unable to determine, please check the box, sign and date. Present On Admission (POA) Indicator: [] Present at the time of admission [] Not present at the time of admission [] Clinically Undetermined In responding to this query, please exercise your independent professional judgment. The fact that a question is asked does not imply that any particular answer is desired or expected. Thank you for your clarification on this documentation. If you have any questions please call. * Thank you, Radha Berumen RN ext. #[phone] MTDD
[2017-05-05] MEDS: Lactobacillus Acidophilus 500 MU Cap PO SCH ×2 (08:35→17:03)
[2017-05-05] MEDS: Clindamycin in NS 300 MG/50 ML BAG IVPB SCH ×2 (08:35→21:00)
[2017-05-05] MEDS: Santyl Collagenase OINTMENT TOP SCH ×2 (08:38→21:00)
[2017-05-05] MEDS: Cholestyramine 4 gm/Pkt UD PO SCH (08:38)
[2017-05-05] MEDS: Pantoprazole 40 mg Susp UD NG SCH (08:38)
[2017-05-05] MEDS: Linezolid 600 mg in D5W 300 ml 600 MG/300 ML BAG IVPB SCH ×2 (08:41→21:01)
--- NOTE | 2017-05-05 10:18 | CP.PCM.PN ---
Subjective - Date & Time of Evaluation Date of Evaluation: 05/05/17 Time of Evaluation: 10:15 - Subjective Subjective: Patient remained on ventilator. Responding somewhat to some question by opening her eyes some time. Vital sign noted to be stable. Pulse around 112 and temperature normal. Physical exam Chest few rhonchi Heart no rubs Abdomen soft Extremities no edema Review lab Potassium corrected Follow-up serum magnesium I suggested to keep magnesium level around 2.0 to maintain a correction of serum potassium. The rest of the management problem Status post septic shock. Respiratory failure. Pneumonia. Status post acute kidney injury which has been recover. Objective - Vital Signs/Intake and Output Vital Signs (last 24 hours): Temp Pulse Resp BP Pulse Ox 97.9 F 112 H 16 148/87 100 05/05/17 08:00 05/05/17 08:00 05/05/17 08:00 05/05/17 08:00 05/05/17 08:00 Intake and Output: 05/05/17 05/05/17 06:59 18:59 Intake Total 1250 790 Output Total 2000 Balance -750 790 - Medications Medications: Current Medications Ascorbic Acid (Vitamin C 250 Mg Tab) 250 mg PO DAILY [facility] Last Admin: 05/05/17 08:40 Dose: 250 mg Cholestyramine Resin (Questran) 4 gm PO DAILY [facility] Last Admin: 05/05/17 08:38 Dose: 4 gm Collagenase (Santyl) 1 applic TOP Q12 [facility]TE Last Admin: 05/05/17 08:38 Dose: 1 applic Dimethicone (Proshield Plus Skin Protectant) 1 applic TOP Q8 [facility]TE Last Admin: 05/05/17 08:38 Dose: 1 applic Hydrocortisone Sodium Succinate (Solu-Cortef) 10 mg IV DAILY [facility] Last Admin: 05/05/17 08:39 Dose: 10 mg Clindamycin in NS (Clindamycin 300 Mg/50 Ml-Ns) 300 mg in 50 mls @ 50 mls/hr IVPB Q12 [facility] PRN Reason: Protocol Last Admin: 05/05/17 08:35 Dose: 50 mls/hr Linezolid (Zyvox 600mg/300ml D5w) 600 mg in 300 mls @ 300 mls/hr IVPB Q12 [facility] PRN Reason: Protocol Last Admin: 05/05/17 08:41 Dose: 300 mls/hr Tobramycin Sulfate 60 mg/ (Sodium Chloride) 51.5 mls @ 50.739 mls/hr IV Q24H [facility] Last Admin: 05/04/17 10:27 Dose: 50.739 mls/hr Dextrose/Sodium Chloride (Dextrose 5%/0.9% Ns 1000 Ml) 1,000 mls @ 40 mls/hr IV .Q24H [facility] Stop: 05/06/17 07:03 Last Admin: 05/05/17 07:11 Dose: 40 mls/hr Lactobacillus Acidophilus (Bacid Acidophilus) 1 cap PO BID [facility] Last Admin: 05/05/17 08:35 Dose: 1 cap Pantoprazole Sodium (Protonix Susp) 40 mg NG DAILY [facility] Last Admin: 05/05/17 08:38 Dose: 40 mg Thiamine HCl (Vitamin B1 Tab) 100 mg PO DAILY [facility] Last Admin: 05/05/17 08:40 Dose: 100 mg Zinc Sulfate (Zinc Sulfate 220 Mg Cap) 220 mg PO DAILY [facility] Last Admin: 05/05/17 08:40 Dose: 220 mg - Labs Labs: 05/05/17 04:20 05/05/17 04:20 PT 12.1 Seconds (9.8-13.1) 05/01/17 02:35 INR 1.1 (0.9-1.2) 05/01/17 02:35 APTT 26.2 Seconds (25.6-37.1) 05/01/17 02:35 Assessment and Plan (1) Acute renal injury due to circulatory failure Status: Acute (2) Altered mental status Status: Acute (3) GI bleed Status: Acute
[2017-05-05] MEDS: SODIUM CHLORIDE 0.9% IV SCH (13:16)
[2017-05-05] MEDS: TOBRAMYCIN IV SCH (13:16)
--- NOTE | 2017-05-05 14:31 | PCM.EEG ---
Electroencephalogram Report - Electroencephalogram Report Procedure Date: 05/04/17 Interpretation: Indication: Encephalopathy. Medications were reviewed. Technical: This is a digitally recorded electroencephalogram. The international 10-20 electrode placement system is used for scalp electrode placement. Eighteen channels of scalp EEG are recorded Another channel was used for for ECG. The data are stored digitally and reviewed in reformatted montages for optimal display. Diffuse Abnormality: No well formed alpha activity was seen. Mixed diffuse theta and delta activity was seen. Frontal intermittent rhythm delta slowing was seen. Focal abnormality: Intermittent focal slowing was seen. Cotinuous polymorphic delta slowing was seen. Periodic lateralized discharge was seen. This is seen over the Right hemisphere. Impression: This EEG is abnormal. Diffuse slowing is seen, suggestive of a diffuse abnormality of the brain. This finding is nonspecific, and can be seen in a diffuse or multifocal abnormality of the brain. Epileptiform discharge was seen. This can represent a potential seizure focus. Some focal slowing was seen , suggestive of a focal abnormality. Clinical correlation is needed.
[2017-05-05] MEDS ORDERED: Lacosamide 200mg/20ml 200 MG in Sodium Chloride 0.9% 100 ML IVPB ONE (14:33)
--- NOTE | 2017-05-05 15:14 | CP.PCM.PN ---
Subjective - Date & Time of Evaluation Date of Evaluation: 05/05/17 Time of Evaluation: 09:40 - Subjective Subjective: F/U Respiratory failure. Pt with eyes open, appear to understand conversation. Objective - Vital Signs/Intake and Output Vital Signs (last 24 hours): Temp Pulse Resp BP Pulse Ox 97.9 F 124 H 22 160/89 H 95 05/05/17 12:00 05/05/17 12:00 05/05/17 12:00 05/05/17 12:00 05/05/17 12:00 Intake and Output: 05/05/17 05/05/17 06:59 18:59 Intake Total 1250 790 Output Total 2000 1000 Balance -750 -210 - Medications Medications: Current Medications Ascorbic Acid (Vitamin C 250 Mg Tab) 250 mg PO DAILY [facility] Last Admin: 05/05/17 08:40 Dose: 250 mg Cholestyramine Resin (Questran) 4 gm PO DAILY [facility] Last Admin: 05/05/17 08:38 Dose: 4 gm Collagenase (Santyl) 1 applic TOP Q12 [facility] Last Admin: 05/05/17 08:38 Dose: 1 applic Dimethicone (Proshield Plus Skin Protectant) 1 applic TOP Q8 [facility] Last Admin: 05/05/17 08:38 Dose: 1 applic Hydrocortisone Sodium Succinate (Solu-Cortef) 10 mg IV DAILY [facility] Last Admin: 05/05/17 08:39 Dose: 10 mg Clindamycin in NS (Clindamycin 300 Mg/50 Ml-Ns) 300 mg in 50 mls @ 50 mls/hr IVPB Q12 [facility] PRN Reason: Protocol Last Admin: 05/05/17 08:35 Dose: 50 mls/hr Linezolid (Zyvox 600mg/300ml D5w) 600 mg in 300 mls @ 300 mls/hr IVPB Q12 [facility] PRN Reason: Protocol Last Admin: 05/05/17 08:41 Dose: 300 mls/hr Tobramycin Sulfate 60 mg/ (Sodium Chloride) 51.5 mls @ 50.739 mls/hr IV Q24H [facility] Last Admin: 05/05/17 13:16 Dose: 50.739 mls/hr Dextrose/Sodium Chloride (Dextrose 5%/0.9% Ns 1000 Ml) 1,000 mls @ 40 mls/hr IV .Q24H [facility] Stop: 05/06/17 07:03 Last Admin: 05/05/17 07:11 Dose: 40 mls/hr Lacosamide 100 mg/ Sodium (Chloride) 110 mls @ 110 mls/hr IVPB Q12@0400,1600 [facility] Lacosamide 200 mg/ Sodium (Chloride) 120 mls @ 120 mls/hr IVPB ONCE ONE Stop: 05/05/17 15:32 Lactobacillus Acidophilus (Bacid Acidophilus) 1 cap PO BID [facility] Last Admin: 05/05/17 08:35 Dose: 1 cap Pantoprazole Sodium (Protonix Susp) 40 mg NG DAILY [facility] Last Admin: 05/05/17 08:38 Dose: 40 mg Thiamine HCl (Vitamin B1 Tab) 100 mg PO DAILY [facility] Last Admin: 05/05/17 08:40 Dose: 100 mg Zinc Sulfate (Zinc Sulfate 220 Mg Cap) 220 mg PO DAILY [facility] Last Admin: 05/05/17 08:40 Dose: 220 mg - Labs Labs: 05/05/17 04:20 05/05/17 04:20 PT 12.1 Seconds (9.8-13.1) 05/01/17 02:35 INR 1.1 (0.9-1.2) 05/01/17 02:35 APTT 26.2 Seconds (25.6-37.1) 05/01/17 02:35 - Constitutional Appears: Chronically Ill - Head Exam Head Exam: NORMAL INSPECTION - Eye Exam Eye Exam: PERRL - ENT Exam ENT Exam: Normal Exam - Neck Exam Additional comments: Tracheotomy - Respiratory Exam Respiratory Exam: Decreased Breath Sounds (at bases) - Cardiovascular Exam Cardiovascular Exam: REGULAR RHYTHM - GI/Abdominal Exam GI & Abdominal Exam: Soft, Normal Bowel Sounds - Extremities Exam Extremities Exam: Pedal Edema Additional comments: L heel and R lateral ankle DTI, MASD posterior thigh. - Back Exam Additional comments: MSAD buttock, sacrum, R flank. - Neurological Exam Neurological Exam: Awake Additional comments: Generalized weakness, no moving extremities on commands. - Skin Skin Exam: Warm Assessment and Plan (1) Acute respiratory failure Status: Acute (2) Status post tracheostomy Status: Acute (3) Pneumonia Status: Acute (4) Acute renal failure (ARF) Status: Acute (5) Anemia Status: Acute (6) Thrombocytopenia Status: Resolved (7) History of pulmonary embolus (PE) Status: Acute (8) Intensive care (ICU) myopathy Status: Acute - Assessment and Plan (Free Text) Plan: Pt on trach collar trial for one hour but after went back to CPAP/ PS, Hyperkalemia corrected ( Potassium 4.4), to have Peg tube in AM, Pt stable to be transferred to telemetry
[2017-05-06] MEDS: Proshield Plus GEL TOP SCH ×3 (01:00→17:08)
[2017-05-06] MEDS: Lacosamide 200mg/20ml 100 MG in Sodium Chloride 0.9% 100 ML IVPB SCH ×2 (03:37→17:00)
--- NOTE | 2017-05-06 07:49 | CP.PCM.PN ---
Subjective - Date & Time of Evaluation Date of Evaluation: 05/06/17 Time of Evaluation: 07:47 - Subjective Subjective: Ms. Scales was seen and examined at the bedside. She opens her eyes with verbal cues. She remains on mechanical ventilation via trach. She is schedule for EGD today. The patient is unable to follow simple commands. There was no untoward events overnight. Objective - Vital Signs/Intake and Output Vital Signs (last 24 hours): Temp Pulse Resp BP Pulse Ox 98.5 F 122 H 20 128/85 100 05/06/17 05:00 05/06/17 05:00 05/06/17 05:00 05/06/17 05:00 05/06/17 05:00 Intake and Output: 05/06/17 05/06/17 06:59 18:59 Intake Total 1387 Output Total 1500 Balance -113 - Medications Medications: Current Medications Ascorbic Acid (Vitamin C 250 Mg Tab) 250 mg PO DAILY [facility] Last Admin: 05/05/17 08:40 Dose: 250 mg Cholestyramine Resin (Questran) 4 gm PO DAILY [facility] Last Admin: 05/05/17 08:38 Dose: 4 gm Collagenase (Santyl) 1 applic TOP Q12 [facility] Last Admin: 05/05/17 21:00 Dose: 1 applic Dimethicone (Proshield Plus Skin Protectant) 1 applic TOP Q8 [facility] Last Admin: 05/06/17 01:00 Dose: 1 applic Hydrocortisone Sodium Succinate (Solu-Cortef) 10 mg IV DAILY [facility] Last Admin: 05/05/17 08:39 Dose: 10 mg Clindamycin in NS (Clindamycin 300 Mg/50 Ml-Ns) 300 mg in 50 mls @ 50 mls/hr IVPB Q12 [facility] PRN Reason: Protocol Last Admin: 05/05/17 21:00 Dose: 50 mls/hr Linezolid (Zyvox 600mg/300ml D5w) 600 mg in 300 mls @ 300 mls/hr IVPB Q12 [facility] PRN Reason: Protocol Last Admin: 05/05/17 21:01 Dose: 300 mls/hr Tobramycin Sulfate 60 mg/ (Sodium Chloride) 51.5 mls @ 50.739 mls/hr IV Q24H [facility] Last Admin: 05/05/17 13:16 Dose: 50.739 mls/hr Lacosamide 100 mg/ Sodium (Chloride) 110 mls @ 110 mls/hr IVPB Q12@0400,1600 [facility] Last Admin: 05/06/17 03:37 Dose: 110 mls/hr Lactobacillus Acidophilus (Bacid Acidophilus) 1 cap PO BID [facility] Last Admin: 05/05/17 17:03 Dose: 1 cap Pantoprazole Sodium (Protonix Susp) 40 mg NG DAILY [facility] Last Admin: 05/05/17 08:38 Dose: 40 mg Thiamine HCl (Vitamin B1 Tab) 100 mg PO DAILY [facility] Last Admin: 05/05/17 08:40 Dose: 100 mg Zinc Sulfate (Zinc Sulfate 220 Mg Cap) 220 mg PO DAILY [facility] Last Admin: 05/05/17 08:40 Dose: 220 mg - Labs Labs: 05/05/17 04:20 05/05/17 04:20 PT 12.1 Seconds (9.8-13.1) 05/01/17 02:35 INR 1.1 (0.9-1.2) 05/01/17 02:35 APTT 26.2 Seconds (25.6-37.1) 05/01/17 02:35 - Constitutional Appears: No Acute Distress - Head Exam Head Exam: ATRAUMATIC - Neurological Exam Neurological Exam: Awake Neuro motor strength exam: Left Upper Extremity: 0, Right Upper Extremity: 0, Left Lower Extremity: 0, Right Lower Extremity: 0 Additional comments: She is unable to follow simple commands. Assessment and Plan (1) Seizure Assessment & Plan: Case discussed with Dr. Blanco, with abnormal EEG, Vimpat 200 mg IV Q12 was ordered. Continue all current medical regimen. Follow up echocardiogram. Status: Acute
[2017-05-06 08:15] LABS: BLOOD UREA NITROGEN 23 mg/dl (7-17); CALCIUM 8.9 mg/dL (8.4-10.2); CARBON DIOXIDE 26 mmol/L (22-30); CHLORIDE 108 mmol/L (98-107); GFR AFRICAN-AMERICAN > 60; GLUCOSE,RANDOM 92 mg/dL (65-105); POTASSIUM 3.2 MMOL/L (3.6-5.0); SODIUM 145 mmol/l (132-148)
[2017-05-06] MEDS ORDERED: Potassium Chloride 20 mEq/15 ml LIQ UD NG ONE (09:39)
[2017-05-06] MEDS: Lactobacillus Acidophilus 500 MU Cap PO SCH ×2 (09:39→17:05)
[2017-05-06] MEDS: Pantoprazole 40 mg Susp UD NG SCH (09:40)
[2017-05-06] MEDS: Clindamycin in NS 300 MG/50 ML BAG IVPB SCH ×2 (09:40→21:15)
[2017-05-06] MEDS: Linezolid 600 mg in D5W 300 ml 600 MG/300 ML BAG IVPB SCH ×2 (09:41→21:18)
[2017-05-06] MEDS: Cholestyramine 4 gm/Pkt UD PO SCH (09:41)
[2017-05-06] MEDS: Santyl Collagenase OINTMENT TOP SCH ×2 (09:45→21:16)
[2017-05-06 11:57] LABS: ABG ALLEN TEST YES; ARTERIAL BLOOD GAS HCO3 24.5 mmol/L (21-28); ARTERIAL BLOOD GAS O2 CAPACITY 12.2 mL/dL (16-24); ARTERIAL BLOOD GAS O2 CONTENT 12.2 ML/dL (15-23); ARTERIAL BLOOD GAS PH 7.34 (7.35-7.45); ARTERIAL BLOOD GAS PO2 108 mm/Hg (80-100); ARTERIAL BLOOD HGB O2 SAT 96.2 % (95.0-98.0); ATERIAL BLOOD GAS PEEP 5; CARBOXYHEMOGLOBIN 2.2 % (0.5-1.5); METHEMOGLOBIN 1.6 % (0.0-3.0)
[2017-05-06] MEDS: TOBRAMYCIN IV SCH (12:00)
[2017-05-06] MEDS: SODIUM CHLORIDE 0.9% IV SCH (12:00)
--- NOTE | 2017-05-06 12:58 | RAD ---
HISTORY: Respiratory distress. COMPARISON: No prior. FINDINGS: In situ tracheostomy tube in good position. NGT is present, the tip of which has not been included on this film though distal aspect does lie well below EG junction. No change right-sided PICC line. LUNGS: Low lung volumes limit this study. Bibasilar atelectasis and or infiltrates and bilateral effusions right greater than left. . PLEURA: No significant pleural effusion identified, no pneumothorax apparent. CARDIOVASCULAR: Normal. OSSEOUS STRUCTURES: No significant abnormalities. VISUALIZED UPPER ABDOMEN: Normal. OTHER FINDINGS: None. IMPRESSION: Support lines and tubes as above. Low lung volumes limit this study. Bibasilar atelectasis and or infiltrates and bilateral effusions right greater than left. .
[2017-05-06] MEDS: Dextrose 5%/0.9% NS 1,000 ML IV SCH (14:00)
--- NOTE | 2017-05-06 14:31 | CP.PCM.PN ---
Subjective - Date & Time of Evaluation Date of Evaluation: 05/06/17 Time of Evaluation: 14:25 - Subjective Subjective: No significant changes clinically. Still have diarrhea intermittently. Objective - Vital Signs/Intake and Output Vital Signs (last 24 hours): Temp Pulse Resp BP Pulse Ox 98.6 F 128 H 18 131/77 99 05/06/17 12:00 05/06/17 13:14 05/06/17 13:14 05/06/17 13:14 05/06/17 13:14 Intake and Output: 05/06/17 05/06/17 06:59 18:59 Intake Total 1387 Output Total 1500 Balance -113 - Medications Medications: Current Medications Ascorbic Acid (Vitamin C 250 Mg Tab) 250 mg PO DAILY [facility] Last Admin: 05/06/17 09:43 Dose: 250 mg Cholestyramine Resin (Questran) 4 gm PO DAILY [facility] Last Admin: 05/06/17 09:41 Dose: 4 gm Collagenase (Santyl) 1 applic TOP Q12 [facility] Last Admin: 05/06/17 09:45 Dose: 1 applic Diltiazem HCl (Cardizem) 30 mg NG TID [facility] Last Admin: 05/06/17 13:14 Dose: 30 mg Dimethicone (Proshield Plus Skin Protectant) 1 applic TOP Q8 [facility] Last Admin: 05/06/17 09:44 Dose: 1 applic Hydrocortisone Sodium Succinate (Solu-Cortef) 10 mg IV DAILY [facility] Last Admin: 05/06/17 09:42 Dose: 10 mg Clindamycin in NS (Clindamycin 300 Mg/50 Ml-Ns) 300 mg in 50 mls @ 50 mls/hr IVPB Q12 [facility] PRN Reason: Protocol Last Admin: 05/06/17 09:40 Dose: 50 mls/hr Linezolid (Zyvox 600mg/300ml D5w) 600 mg in 300 mls @ 300 mls/hr IVPB Q12 [facility] PRN Reason: Protocol Last Admin: 05/06/17 09:41 Dose: 300 mls/hr Tobramycin Sulfate 60 mg/ (Sodium Chloride) 51.5 mls @ 50.739 mls/hr IV Q24H [facility] Last Admin: 05/05/17 13:16 Dose: 50.739 mls/hr Lacosamide 100 mg/ Sodium (Chloride) 110 mls @ 110 mls/hr IVPB Q12@0400,1600 [facility] Last Admin: 05/06/17 03:37 Dose: 110 mls/hr Dextrose/Sodium Chloride (Dextrose 5%/0.9% Ns 1000 Ml) 1,000 mls @ 75 mls/hr IV .[id number] [facility] Stop: 05/07/17 12:48 Lactobacillus Acidophilus (Bacid Acidophilus) 1 cap PO BID [facility] Last Admin: 05/06/17 09:39 Dose: 1 cap Pantoprazole Sodium (Protonix Susp) 40 mg NG DAILY [facility] Last Admin: 05/06/17 09:40 Dose: 40 mg Potassium Chloride (Potassium Chloride Oral Soln) 20 meq PO BID [facility] Thiamine HCl (Vitamin B1 Tab) 100 mg PO DAILY [facility] Last Admin: 05/06/17 09:43 Dose: 100 mg Zinc Sulfate (Zinc Sulfate 220 Mg Cap) 220 mg PO DAILY [facility] Last Admin: 05/06/17 09:43 Dose: 220 mg - Labs Labs: 05/05/17 04:20 05/06/17 07:40 PT 12.1 Seconds (9.8-13.1) 05/01/17 02:35 INR 1.1 (0.9-1.2) 05/01/17 02:35 APTT 26.2 Seconds (25.6-37.1) 05/01/17 02:35 - Constitutional Appears: No Acute Distress - ENT Exam ENT Exam: Mucous Membranes Moist - Respiratory Exam Respiratory Exam: absent: Chest Wall Tenderness, Rales - Cardiovascular Exam Cardiovascular Exam: REGULAR RHYTHM. absent: Rubs - GI/Abdominal Exam GI & Abdominal Exam: Soft, Normal Bowel Sounds - Extremities Exam Extremities Exam: absent: Calf Tenderness - Back Exam Back Exam: absent: CVA tenderness (L), CVA tenderness (R) - Neurological Exam Neurological Exam: Altered Assessment and Plan (1) Acute renal injury due to circulatory failure Assessment & Plan: Acute kidney injury patient recovered no dialysis for some time. Persistent hypokalemia perhaps because of the diarrhea and hypomagnesemia. To give potassium chloride 20 mEq twice a day and to keep monitoring potassium. Repeat serum magnesium in a.m. The rest of the problem as noted Status post septic shock Respiratory failure Antibiotics. Status: Acute (2) Altered mental status Status: Acute (3) GI bleed Status: Acute
--- NOTE | 2017-05-06 15:13 | CP.PCM.PN ---
Subjective - Date & Time of Evaluation Date of Evaluation: 05/06/17 Time of Evaluation: 15:10 - Subjective Subjective: Patient appears a little tachypneic. Objective - Vital Signs/Intake and Output Vital Signs (last 24 hours): Temp Pulse Resp BP Pulse Ox 98.6 F 128 H 18 131/77 99 05/06/17 12:00 05/06/17 13:14 05/06/17 13:14 05/06/17 13:14 05/06/17 13:14 Intake and Output: 05/06/17 05/06/17 06:59 18:59 Intake Total 1387 Output Total 1500 Balance -113 - Medications Medications: Current Medications Ascorbic Acid (Vitamin C 250 Mg Tab) 250 mg PO DAILY [facility] Last Admin: 05/06/17 09:43 Dose: 250 mg Cholestyramine Resin (Questran) 4 gm PO DAILY [facility] Last Admin: 05/06/17 09:41 Dose: 4 gm Collagenase (Santyl) 1 applic TOP Q12 [facility] Last Admin: 05/06/17 09:45 Dose: 1 applic Diltiazem HCl (Cardizem) 30 mg NG TID [facility] Last Admin: 05/06/17 13:14 Dose: 30 mg Dimethicone (Proshield Plus Skin Protectant) 1 applic TOP Q8 [facility] Last Admin: 05/06/17 09:44 Dose: 1 applic Hydrocortisone Sodium Succinate (Solu-Cortef) 10 mg IV DAILY [facility] Last Admin: 05/06/17 09:42 Dose: 10 mg Clindamycin in NS (Clindamycin 300 Mg/50 Ml-Ns) 300 mg in 50 mls @ 50 mls/hr IVPB Q12 [facility] PRN Reason: Protocol Last Admin: 05/06/17 09:40 Dose: 50 mls/hr Linezolid (Zyvox 600mg/300ml D5w) 600 mg in 300 mls @ 300 mls/hr IVPB Q12 [facility] PRN Reason: Protocol Last Admin: 05/06/17 09:41 Dose: 300 mls/hr Tobramycin Sulfate 60 mg/ (Sodium Chloride) 51.5 mls @ 50.739 mls/hr IV Q24H [facility] Last Admin: 05/05/17 13:16 Dose: 50.739 mls/hr Lacosamide 100 mg/ Sodium (Chloride) 110 mls @ 110 mls/hr IVPB Q12@0400,1600 [facility] Last Admin: 05/06/17 03:37 Dose: 110 mls/hr Dextrose/Sodium Chloride (Dextrose 5%/0.9% Ns 1000 Ml) 1,000 mls @ 75 mls/hr IV .[id number] [facility] Stop: 05/07/17 12:48 Last Admin: 05/06/17 14:00 Dose: 75 mls/hr Lactobacillus Acidophilus (Bacid Acidophilus) 1 cap PO BID [facility] Last Admin: 05/06/17 09:39 Dose: 1 cap Pantoprazole Sodium (Protonix Susp) 40 mg NG DAILY [facility] Last Admin: 05/06/17 09:40 Dose: 40 mg Potassium Chloride (Potassium Chloride Oral Soln) 20 meq PO BID [facility] Thiamine HCl (Vitamin B1 Tab) 100 mg PO DAILY [facility] Last Admin: 05/06/17 09:43 Dose: 100 mg Zinc Sulfate (Zinc Sulfate 220 Mg Cap) 220 mg PO DAILY [facility] Last Admin: 05/06/17 09:43 Dose: 220 mg - Labs Labs: 05/05/17 04:20 05/06/17 07:40 PT 12.1 Seconds (9.8-13.1) 05/01/17 02:35 INR 1.1 (0.9-1.2) 05/01/17 02:35 APTT 26.2 Seconds (25.6-37.1) 05/01/17 02:35 - Head Exam Head Exam: ATRAUMATIC - Eye Exam Eye Exam: Normal appearance - Neck Exam Neck Exam: Full ROM - Respiratory Exam Respiratory Exam: Clear to Ausculation Bilateral - Cardiovascular Exam Cardiovascular Exam: REGULAR RHYTHM - GI/Abdominal Exam GI & Abdominal Exam: Normal Bowel Sounds Assessment and Plan (1) Anemia Status: Acute (2) Dysphagia Assessment & Plan: PEG was scheduled but postponed due to hypokalemia. Patient also is somewhat tachycardic and tachypneic. Will schedule for Tuesday to allow patient to be optimized medically prior to PEG. Status: Acute (3) Acute diarrhea Status: Acute
[2017-05-06] MEDS ORDERED: Potassium Chloride 20 mEq/15 ml LIQ UD PO SCH (17:00)
--- NOTE | 2017-05-06 18:36 | CP.PCM.PN ---
Subjective - Date & Time of Evaluation Date of Evaluation: 05/06/17 Time of Evaluation: 18:35 - Subjective Subjective: I D NOTE HAS MDR PSEUDOMONAS HAVE ASKED MICRO TO CHECK AGAINST AVYCAZ AND MEROPENEM Objective - Vital Signs/Intake and Output Vital Signs (last 24 hours): Temp Pulse Resp BP Pulse Ox 98.9 F 127 H 18 109/51 L 98 05/06/17 16:47 05/06/17 17:05 05/06/17 17:05 05/06/17 17:05 05/06/17 17:05 Intake and Output: 05/06/17 05/06/17 06:59 18:59 Intake Total 1387 Output Total 1500 Balance -113 - Medications Medications: Current Medications Ascorbic Acid (Vitamin C 250 Mg Tab) 250 mg PO DAILY [facility] Last Admin: 05/06/17 09:43 Dose: 250 mg Cholestyramine Resin (Questran) 4 gm PO DAILY [facility] Last Admin: 05/06/17 09:41 Dose: 4 gm Collagenase (Santyl) 1 applic TOP Q12 [facility] Last Admin: 05/06/17 09:45 Dose: 1 applic Diltiazem HCl (Cardizem) 30 mg NG TID [facility] Last Admin: 05/06/17 17:05 Dose: 30 mg Dimethicone (Proshield Plus Skin Protectant) 1 applic TOP Q8 [facility] Last Admin: 05/06/17 17:08 Dose: 1 applic Hydrocortisone Sodium Succinate (Solu-Cortef) 10 mg IV DAILY [facility] Last Admin: 05/06/17 09:42 Dose: 10 mg Clindamycin in NS (Clindamycin 300 Mg/50 Ml-Ns) 300 mg in 50 mls @ 50 mls/hr IVPB Q12 [facility] PRN Reason: Protocol Last Admin: 05/06/17 09:40 Dose: 50 mls/hr Linezolid (Zyvox 600mg/300ml D5w) 600 mg in 300 mls @ 300 mls/hr IVPB Q12 [facility] PRN Reason: Protocol Last Admin: 05/06/17 09:41 Dose: 300 mls/hr Tobramycin Sulfate 60 mg/ (Sodium Chloride) 51.5 mls @ 50.739 mls/hr IV Q24H [facility] Last Admin: 05/06/17 12:00 Dose: 50.739 mls/hr Lacosamide 100 mg/ Sodium (Chloride) 110 mls @ 110 mls/hr IVPB Q12@0400,1600 [facility] Last Admin: 05/06/17 17:00 Dose: 110 mls/hr Dextrose/Sodium Chloride (Dextrose 5%/0.9% Ns 1000 Ml) 1,000 mls @ 75 mls/hr IV .[id number] [facility] Stop: 05/07/17 12:48 Last Admin: 05/06/17 14:00 Dose: 75 mls/hr Lactobacillus Acidophilus (Bacid Acidophilus) 1 cap PO BID [facility] Last Admin: 05/06/17 17:05 Dose: 1 cap Pantoprazole Sodium (Protonix Susp) 40 mg NG DAILY [facility] Last Admin: 05/06/17 09:40 Dose: 40 mg Potassium Chloride (Potassium Chloride Oral Soln) 20 meq PO BID [facility] Last Admin: 05/06/17 17:11 Dose: 20 meq Thiamine HCl (Vitamin B1 Tab) 100 mg PO DAILY [facility] Last Admin: 05/06/17 09:43 Dose: 100 mg Zinc Sulfate (Zinc Sulfate 220 Mg Cap) 220 mg PO DAILY [facility] Last Admin: 05/06/17 09:43 Dose: 220 mg - Labs Labs: 05/05/17 04:20 05/06/17 07:40 PT 12.1 Seconds (9.8-13.1) 05/01/17 02:35 INR 1.1 (0.9-1.2) 05/01/17 02:35 APTT 26.2 Seconds (25.6-37.1) 05/01/17 02:35
--- NOTE | 2017-05-06 19:05 | CP.PCM.PN ---
Subjective - Date & Time of Evaluation Date of Evaluation: 05/06/17 Time of Evaluation: 11:00 - Subjective Subjective: F/U Respiratory failure. Pt with eyes open. Objective - Vital Signs/Intake and Output Vital Signs (last 24 hours): Temp Pulse Resp BP Pulse Ox 98.9 F 127 H 18 109/51 L 98 05/06/17 16:47 05/06/17 17:05 05/06/17 17:05 05/06/17 17:05 05/06/17 17:05 - Medications Medications: Current Medications Ascorbic Acid (Vitamin C 250 Mg Tab) 250 mg PO DAILY [facility] Last Admin: 05/06/17 09:43 Dose: 250 mg Cholestyramine Resin (Questran) 4 gm PO DAILY [facility] Last Admin: 05/06/17 09:41 Dose: 4 gm Collagenase (Santyl) 1 applic TOP Q12 [facility] Last Admin: 05/06/17 09:45 Dose: 1 applic Diltiazem HCl (Cardizem) 30 mg NG TID [facility] Last Admin: 05/06/17 17:05 Dose: 30 mg Dimethicone (Proshield Plus Skin Protectant) 1 applic TOP Q8 [facility] Last Admin: 05/06/17 17:08 Dose: 1 applic Hydrocortisone Sodium Succinate (Solu-Cortef) 10 mg IV DAILY [facility] Last Admin: 05/06/17 09:42 Dose: 10 mg Clindamycin in NS (Clindamycin 300 Mg/50 Ml-Ns) 300 mg in 50 mls @ 50 mls/hr IVPB Q12 [facility] PRN Reason: Protocol Last Admin: 05/06/17 09:40 Dose: 50 mls/hr Linezolid (Zyvox 600mg/300ml D5w) 600 mg in 300 mls @ 300 mls/hr IVPB Q12 [facility] PRN Reason: Protocol Last Admin: 05/06/17 09:41 Dose: 300 mls/hr Tobramycin Sulfate 60 mg/ (Sodium Chloride) 51.5 mls @ 50.739 mls/hr IV Q24H [facility] Last Admin: 05/06/17 12:00 Dose: 50.739 mls/hr Lacosamide 100 mg/ Sodium (Chloride) 110 mls @ 110 mls/hr IVPB Q12@0400,1600 [facility] Last Admin: 05/06/17 17:00 Dose: 110 mls/hr Dextrose/Sodium Chloride (Dextrose 5%/0.9% Ns 1000 Ml) 1,000 mls @ 75 mls/hr IV .[id number] [facility] Stop: 05/07/17 12:48 Last Admin: 05/06/17 14:00 Dose: 75 mls/hr Lactobacillus Acidophilus (Bacid Acidophilus) 1 cap PO BID [facility] Last Admin: 05/06/17 17:05 Dose: 1 cap Pantoprazole Sodium (Protonix Susp) 40 mg NG DAILY [facility] Last Admin: 05/06/17 09:40 Dose: 40 mg Potassium Chloride (Potassium Chloride Oral Soln) 20 meq PO BID [facility] Last Admin: 05/06/17 17:11 Dose: 20 meq Thiamine HCl (Vitamin B1 Tab) 100 mg PO DAILY [facility] Last Admin: 05/06/17 09:43 Dose: 100 mg Zinc Sulfate (Zinc Sulfate 220 Mg Cap) 220 mg PO DAILY [facility] Last Admin: 05/06/17 09:43 Dose: 220 mg - Labs Labs: 05/05/17 04:20 05/06/17 07:40 PT 12.1 Seconds (9.8-13.1) 05/01/17 02:35 INR 1.1 (0.9-1.2) 05/01/17 02:35 APTT 26.2 Seconds (25.6-37.1) 05/01/17 02:35 - Constitutional Appears: Chronically Ill - Head Exam Head Exam: NORMAL INSPECTION - Eye Exam Eye Exam: PERRL - ENT Exam Additional comments: Intubated - Neck Exam Neck Exam: Normal Inspection - Respiratory Exam Respiratory Exam: Rhonchi (scattered) - Cardiovascular Exam Cardiovascular Exam: REGULAR RHYTHM - GI/Abdominal Exam GI & Abdominal Exam: Soft, Normal Bowel Sounds - Extremities Exam Extremities Exam: Pedal Edema (L heel and R lateral ankle DTI, MSAD posterior thigh.) - Back Exam Additional comments: MSAD buttock, sacrum, R flank. - Neurological Exam Additional comments: Pt awake, aware of simple commands. - Skin Skin Exam: Warm Assessment and Plan (1) Acute respiratory failure Status: Acute (2) Status post tracheostomy Status: Acute (3) Pneumonia Status: Acute (4) Acute renal failure (ARF) Status: Acute (5) Anemia Status: Acute (6) Thrombocytopenia Status: Resolved (7) History of pulmonary embolus (PE) Status: Acute (8) Intensive care (ICU) myopathy Status: Acute - Assessment and Plan (Free Text) Plan: F/U CXR, continue Zyvox, Clinda and rest of Tx.
[2017-05-07] MEDS: Proshield Plus GEL TOP SCH ×3 (01:42→17:00)
[2017-05-07] MEDS: Dextrose 5%/0.9% NS 1,000 ML IV SCH (02:35)
[2017-05-07] MEDS: Lacosamide 200mg/20ml 100 MG in Sodium Chloride 0.9% 100 ML IVPB SCH ×2 (07:59→21:48)
[2017-05-07] MEDS ORDERED: Magnesium Sulfate 2 gm/50 ml 2 GM/50 ML BAG IVPB ONE (09:01)
--- NOTE | 2017-05-07 09:04 | CP.PCM.PN ---
Subjective - Date & Time of Evaluation Date of Evaluation: 05/07/17 Time of Evaluation: 09:02 - Subjective Subjective: Follow up Nephrology Consultation Note Assessment: stable Hypomagnesemia, Hypokalemia, Non-oliguric Acute Kidney Injury (N17.9) likely due to acute tubular necrosis due to septic shock, required renal replacement therapy: resolved Acute respi failure Sepsis with shock: resolved Obesity hx of ovarian CA s/p RODRIGO/BSO, DVT s/p IVC filter Anemia Plan supplement electrolytes as KDUR 40 meq bid (increased from 20 bid) supplemented with IV mag 2 gm once and po as 400 mg bid thereafter Dose meds/antibiotics for improved GFR. Avoid fleets enema/magnesium based laxatives. Avoid nephrotoxins/NSAIDs Glycemic control Further work up for as per primary team Thanks for allowing me to participate in care of your patient. Will follow patient with you. Please call if any Qs Dr Reji Nunez Office: [phone] Subjective: Noted events overnight. Patients s/p trach unable to obtain hx from patient. Physical Examination: General Appearance: Comfortable, in no acute respiratory distress, ill appearing , s/p trach Vitals reviewed and noted as below Lungs: Normal respiratory rate/effort. Breath sounds bilateral equal Heart: Normal rate. s1s2 normal. No rub or gallop. Extremities: no edema. Neurological: Patient is sleeping not communicative at present Skin: Warm and dry. Normal turgor. No rash. Palpitation: Normal elasticity for age Abdomen: Abdomen is soft. Bowel sounds +. There is no abdominal tenderness, no guarding/rigidity or organomegaly : kidney or bladder not palpable Access: none now Head; Atraumatic, normocephalic EYES: Pupils are equal, round and reactive to light accommodation. Eye muscles and extraocular movement intact. Sclera is anicteric. Neck; supple no lymphadenopathy, no thyromegaly or bruit Psych: Unable MSK: no joint tenderness or swelling. Digits and nails normal, no deformity Labs/imaging reviewed. Past medical history, past surgical history, family history, social history, allergy reviewed family hx No hx of CKD Objective - Vital Signs/Intake and Output Vital Signs (last 24 hours): Temp Pulse Resp BP Pulse Ox 98.1 F 123 H 20 127/86 100 05/07/17 08:00 05/07/17 08:00 05/07/17 08:00 05/07/17 08:00 05/07/17 08:00 Intake and Output: 05/07/17 05/07/17 06:59 18:59 Intake Total 990 Output Total 800 Balance 190 - Medications Medications: Current Medications Acetaminophen (Tylenol 650 Mg Supp) 650 mg GA Q4 PRN PRN Reason: Fever >100.4 F Ascorbic Acid (Vitamin C 250 Mg Tab) 250 mg PO DAILY [facility] Last Admin: 05/06/17 09:43 Dose: 250 mg Cholestyramine Resin (Questran) 4 gm PO DAILY [facility] Last Admin: 05/06/17 09:41 Dose: 4 gm Collagenase (Santyl) 1 applic TOP Q12 [facility] Last Admin: 05/06/17 21:16 Dose: 1 applic Diltiazem HCl (Cardizem) 30 mg NG TID [facility] Last Admin: 05/06/17 17:05 Dose: 30 mg Dimethicone (Proshield Plus Skin Protectant) 1 applic TOP Q8 [facility] Last Admin: 05/07/17 01:42 Dose: 1 applic Hydrocortisone Sodium Succinate (Solu-Cortef) 10 mg IV DAILY [facility] Last Admin: 05/06/17 09:42 Dose: 10 mg Clindamycin in NS (Clindamycin 300 Mg/50 Ml-Ns) 300 mg in 50 mls @ 50 mls/hr IVPB Q12 [facility] PRN Reason: Protocol Last Admin: 05/06/17 21:15 Dose: 50 mls/hr Linezolid (Zyvox 600mg/300ml D5w) 600 mg in 300 mls @ 300 mls/hr IVPB Q12 [facility] PRN Reason: Protocol Last Admin: 05/06/17 21:18 Dose: 300 mls/hr Tobramycin Sulfate 60 mg/ (Sodium Chloride) 51.5 mls @ 50.739 mls/hr IV Q24H [facility] Last Admin: 05/06/17 12:00 Dose: 50.739 mls/hr Dextrose/Sodium Chloride (Dextrose 5%/0.9% Ns 1000 Ml) 1,000 mls @ 75 mls/hr IV .[id number] [facility] Stop: 05/07/17 12:48 Last Admin: 05/07/17 02:35 Dose: Not Given Lacosamide 100 mg/ Sodium (Chloride) 110 mls @ 110 mls/hr IVPB Q12@0800,2000 [facility] Last Admin: 05/07/17 07:59 Dose: 110 mls/hr Magnesium Sulfate 2 gm/ Sodium (Chloride) 104 mls @ 104 mls/hr IVPB ONCE ONE PRN Reason: 2 GM/HR Stop: 05/07/17 10:00 Lactobacillus Acidophilus (Bacid Acidophilus) 1 cap PO BID [facility] Last Admin: 05/06/17 17:05 Dose: 1 cap Magnesium Oxide (Mag-Ox) 400 mg PO BID [facility] Pantoprazole Sodium (Protonix Susp) 40 mg NG DAILY [facility] Last Admin: 05/06/17 09:40 Dose: 40 mg Potassium Chloride (Potassium Chloride Oral Soln) 40 meq NG BID [facility] Thiamine HCl (Vitamin B1 Tab) 100 mg PO DAILY [facility] Last Admin: 05/06/17 09:43 Dose: 100 mg Zinc Sulfate (Zinc Sulfate 220 Mg Cap) 220 mg PO DAILY [facility] Last Admin: 05/06/17 09:43 Dose: 220 mg - Labs Labs: 05/05/17 04:20 05/06/17 07:40 PT 12.1 Seconds (9.8-13.1) 05/01/17 02:35 INR 1.1 (0.9-1.2) 05/01/17 02:35 APTT 26.2 Seconds (25.6-37.1) 05/01/17 02:35
[2017-05-07] MEDS: Lactobacillus Acidophilus 500 MU Cap PO SCH ×2 (09:36→17:01)
[2017-05-07] MEDS: Magnesium Oxide 400 mg Tab UD PO SCH ×2 (09:36→17:00)
[2017-05-07] MEDS: Potassium Chloride 20 mEq/15 ml LIQ UD NG SCH ×2 (09:37→17:01)
[2017-05-07] MEDS: Pantoprazole 40 mg Susp UD NG SCH (09:37)
[2017-05-07] MEDS: Cholestyramine 4 gm/Pkt UD PO SCH (09:37)
[2017-05-07] MEDS: Linezolid 600 mg in D5W 300 ml 600 MG/300 ML BAG IVPB SCH ×2 (09:40→21:25)
[2017-05-07] MEDS: Santyl Collagenase OINTMENT TOP SCH ×2 (09:40→21:27)
[2017-05-07] MEDS: Clindamycin in NS 300 MG/50 ML BAG IVPB SCH ×2 (11:23→21:24)
[2017-05-07] MEDS: TOBRAMYCIN IV SCH (13:40)
[2017-05-07] MEDS: SODIUM CHLORIDE 0.9% IV SCH (13:40)
--- NOTE | 2017-05-07 14:39 | CP.PCM.PN ---
Subjective - Date & Time of Evaluation Date of Evaluation: 05/07/17 Time of Evaluation: 14:37 - Subjective Subjective: I D NOTE AWAITING CULTURE SENSITIIVITIES OF PSEUDOMONAS TO RADHA CAZ Objective - Vital Signs/Intake and Output Vital Signs (last 24 hours): Temp Pulse Resp BP Pulse Ox 99.5 F 100 H 20 122/81 100 05/07/17 12:00 05/07/17 13:39 05/07/17 12:00 05/07/17 12:00 05/07/17 12:00 Intake and Output: 05/07/17 05/07/17 06:59 18:59 Intake Total 990 997 Output Total 800 Balance 190 997 - Medications Medications: Current Medications Acetaminophen (Tylenol 650 Mg Supp) 650 mg [place] Q4 PRN PRN Reason: Fever >100.4 F Ascorbic Acid (Vitamin C 250 Mg Tab) 250 mg PO DAILY [facility] Last Admin: 05/07/17 09:36 Dose: 250 mg Cholestyramine Resin (Questran) 4 gm PO DAILY [facility] Last Admin: 05/07/17 09:37 Dose: 4 gm Collagenase (Santyl) 1 applic TOP Q12 [facility] Last Admin: 05/07/17 09:40 Dose: 1 applic Diltiazem HCl (Cardizem) 30 mg NG TID [facility] Last Admin: 05/07/17 13:39 Dose: 30 mg Dimethicone (Proshield Plus Skin Protectant) 1 applic TOP Q8 [facility] Last Admin: 05/07/17 09:41 Dose: 1 applic Hydrocortisone Sodium Succinate (Solu-Cortef) 10 mg IV DAILY [facility] Last Admin: 05/07/17 09:37 Dose: 10 mg Clindamycin in NS (Clindamycin 300 Mg/50 Ml-Ns) 300 mg in 50 mls @ 50 mls/hr IVPB Q12 [facility] PRN Reason: Protocol Last Admin: 05/07/17 11:23 Dose: 50 mls/hr Linezolid (Zyvox 600mg/300ml D5w) 600 mg in 300 mls @ 300 mls/hr IVPB Q12 [facility] PRN Reason: Protocol Last Admin: 05/07/17 09:40 Dose: 300 mls/hr Tobramycin Sulfate 60 mg/ (Sodium Chloride) 51.5 mls @ 50.739 mls/hr IV Q24H [facility] Last Admin: 05/07/17 13:40 Dose: 50.739 mls/hr Lacosamide 100 mg/ Sodium (Chloride) 110 mls @ 110 mls/hr IVPB Q12@0800,2000 [facility] Last Admin: 05/07/17 07:59 Dose: 110 mls/hr Lactobacillus Acidophilus (Bacid Acidophilus) 1 cap PO BID [facility] Last Admin: 05/07/17 09:36 Dose: 1 cap Magnesium Oxide (Mag-Ox) 400 mg PO BID [facility] Last Admin: 05/07/17 09:36 Dose: 400 mg Pantoprazole Sodium (Protonix Susp) 40 mg NG DAILY [facility] Last Admin: 05/07/17 09:37 Dose: 40 mg Potassium Chloride (Potassium Chloride Oral Soln) 40 meq NG BID [facility] Last Admin: 05/07/17 09:37 Dose: 40 meq Thiamine HCl (Vitamin B1 Tab) 100 mg PO DAILY [facility] Last Admin: 05/07/17 09:37 Dose: 100 mg Zinc Sulfate (Zinc Sulfate 220 Mg Cap) 220 mg PO DAILY [facility] Last Admin: 05/07/17 09:41 Dose: 220 mg - Labs Labs: 05/05/17 04:20 05/06/17 07:40 PT 12.1 Seconds (9.8-13.1) 05/01/17 02:35 INR 1.1 (0.9-1.2) 05/01/17 02:35 APTT 26.2 Seconds (25.6-37.1) 05/01/17 02:35
--- NOTE | 2017-05-07 18:15 | CP.PCM.PN ---
Subjective - Date & Time of Evaluation Date of Evaluation: 05/07/17 Time of Evaluation: 15:00 - Subjective Subjective: F/U Respiratory failure. Pt eyes open appear to understand conversations, on CPAP/ PS. Objective - Vital Signs/Intake and Output Vital Signs (last 24 hours): Temp Pulse Resp BP Pulse Ox 99 F 122 H 23 113/68 100 05/07/17 17:00 05/07/17 17:00 05/07/17 17:00 05/07/17 17:00 05/07/17 17:00 Intake and Output: 05/07/17 05/07/17 06:59 18:59 Intake Total 990 2971 Output Total 800 1000 Balance 190 1971 - Medications Medications: Current Medications Acetaminophen (Tylenol 650 Mg Supp) 650 mg [place] Q4 PRN PRN Reason: Fever >100.4 F Ascorbic Acid (Vitamin C 250 Mg Tab) 250 mg PO DAILY [facility] Last Admin: 05/07/17 09:36 Dose: 250 mg Cholestyramine Resin (Questran) 4 gm PO DAILY [facility] Last Admin: 05/07/17 09:37 Dose: 4 gm Collagenase (Santyl) 1 applic TOP Q12 [facility] Last Admin: 05/07/17 09:40 Dose: 1 applic Diltiazem HCl (Cardizem) 30 mg NG TID [facility] Last Admin: 05/07/17 17:00 Dose: 30 mg Dimethicone (Proshield Plus Skin Protectant) 1 applic TOP Q8 [facility] Last Admin: 05/07/17 17:00 Dose: 1 applic Hydrocortisone Sodium Succinate (Solu-Cortef) 10 mg IV DAILY [facility] Last Admin: 05/07/17 09:37 Dose: 10 mg Clindamycin in NS (Clindamycin 300 Mg/50 Ml-Ns) 300 mg in 50 mls @ 50 mls/hr IVPB Q12 [facility] PRN Reason: Protocol Last Admin: 05/07/17 11:23 Dose: 50 mls/hr Linezolid (Zyvox 600mg/300ml D5w) 600 mg in 300 mls @ 300 mls/hr IVPB Q12 [facility] PRN Reason: Protocol Last Admin: 05/07/17 09:40 Dose: 300 mls/hr Tobramycin Sulfate 60 mg/ (Sodium Chloride) 51.5 mls @ 50.739 mls/hr IV Q24H [facility] Last Admin: 05/07/17 13:40 Dose: 50.739 mls/hr Lacosamide 100 mg/ Sodium (Chloride) 110 mls @ 110 mls/hr IVPB Q12@0800,2000 [facility] Last Admin: 05/07/17 07:59 Dose: 110 mls/hr Lactobacillus Acidophilus (Bacid Acidophilus) 1 cap PO BID [facility] Last Admin: 05/07/17 17:01 Dose: 1 cap Magnesium Oxide (Mag-Ox) 400 mg PO BID [facility] Last Admin: 05/07/17 17:00 Dose: 400 mg Pantoprazole Sodium (Protonix Susp) 40 mg NG DAILY [facility] Last Admin: 05/07/17 09:37 Dose: 40 mg Potassium Chloride (Potassium Chloride Oral Soln) 40 meq NG BID [facility] Last Admin: 05/07/17 17:01 Dose: 40 meq Thiamine HCl (Vitamin B1 Tab) 100 mg PO DAILY [facility] Last Admin: 05/07/17 09:37 Dose: 100 mg Zinc Sulfate (Zinc Sulfate 220 Mg Cap) 220 mg PO DAILY [facility] Last Admin: 05/07/17 09:41 Dose: 220 mg - Labs Labs: 05/05/17 04:20 05/06/17 07:40 PT 12.1 Seconds (9.8-13.1) 05/01/17 02:35 INR 1.1 (0.9-1.2) 05/01/17 02:35 APTT 26.2 Seconds (25.6-37.1) 05/01/17 02:35 - Constitutional Appears: No Acute Distress, Chronically Ill - Head Exam Head Exam: NORMAL INSPECTION - Eye Exam Eye Exam: PERRL - ENT Exam Additional comments: Intubated - Neck Exam Neck Exam: Normal Inspection - Respiratory Exam Respiratory Exam: Rhonchi (scattered) - Cardiovascular Exam Cardiovascular Exam: REGULAR RHYTHM - GI/Abdominal Exam GI & Abdominal Exam: Soft, Normal Bowel Sounds - Extremities Exam Extremities Exam: Pedal Edema Additional comments: L heel and R lateral ankle DTI, MSAD posterior thigh. - Back Exam Additional comments: MSAD buttock, sacrum, R flank. - Neurological Exam Additional comments: Awake, aware of simple commands. - Skin Skin Exam: Warm Assessment and Plan (1) Acute respiratory failure Status: Acute (2) Status post tracheostomy Status: Acute (3) Shock Status: Deleted (4) Pneumonia Status: Acute (5) Acute renal failure (ARF) Status: Acute (6) Anemia Status: Acute (7) Hematuria, gross Status: Deleted (8) Thrombocytopenia Status: Resolved (9) History of pulmonary embolus (PE) Status: Acute (10) Pancolitis Status: Deleted - Assessment and Plan (Free Text) Plan: Pt having liquid BM, continue Clinda, Zyvox, Basic Acidophilus and rest of Tx.
[2017-05-08] MEDS: Proshield Plus GEL TOP SCH ×3 (00:30→16:50)
--- NOTE | 2017-05-08 07:45 | CP.PCM.PN ---
Subjective - Date & Time of Evaluation Date of Evaluation: 05/08/17 Time of Evaluation: 07:42 - Subjective Subjective: Ms. Yordy Schafer was seen and examined at the bedside. She is awake but unable to answer few questions with nodding or shaking her head. She remains on mechanical ventilation via trach. She also has OGT on her left nostrils. She is unable to follow commands. She uses her accessory muscle for breathing, rr-25, SPO2-100%. She has hematuria noed in her castillo. PMD made aware with orders. There was no untoward events overnight. Objective - Vital Signs/Intake and Output Vital Signs (last 24 hours): Temp Pulse Resp BP Pulse Ox 99.2 F 126 H 22 115/73 99 05/08/17 05:00 05/08/17 05:00 05/08/17 05:00 05/08/17 05:00 05/08/17 05:00 - Medications Medications: Current Medications Acetaminophen (Tylenol 650 Mg Supp) 650 mg [place] Q4 PRN PRN Reason: Fever >100.4 F Last Admin: 05/08/17 00:10 Dose: 650 mg Ascorbic Acid (Vitamin C 250 Mg Tab) 250 mg PO DAILY [facility] Last Admin: 05/07/17 09:36 Dose: 250 mg Cholestyramine Resin (Questran) 4 gm PO DAILY [facility] Last Admin: 05/07/17 09:37 Dose: 4 gm Collagenase (Santyl) 1 applic TOP Q12 [facility] Last Admin: 05/07/17 21:27 Dose: 1 applic Diltiazem HCl (Cardizem) 30 mg NG TID [facility] Last Admin: 05/07/17 17:00 Dose: 30 mg Dimethicone (Proshield Plus Skin Protectant) 1 applic TOP Q8 [facility] Last Admin: 05/08/17 00:30 Dose: 1 applic Hydrocortisone Sodium Succinate (Solu-Cortef) 10 mg IV DAILY [facility] Last Admin: 05/07/17 09:37 Dose: 10 mg Clindamycin in NS (Clindamycin 300 Mg/50 Ml-Ns) 300 mg in 50 mls @ 50 mls/hr IVPB Q12 [facility] PRN Reason: Protocol Last Admin: 05/07/17 21:24 Dose: 50 mls/hr Linezolid (Zyvox 600mg/300ml D5w) 600 mg in 300 mls @ 300 mls/hr IVPB Q12 [facility] PRN Reason: Protocol Last Admin: 05/07/17 21:25 Dose: 300 mls/hr Tobramycin Sulfate 60 mg/ (Sodium Chloride) 51.5 mls @ 50.739 mls/hr IV Q24H [facility] Last Admin: 05/07/17 13:40 Dose: 50.739 mls/hr Lacosamide 100 mg/ Sodium (Chloride) 110 mls @ 110 mls/hr IVPB Q12@0800,2000 [facility] Last Admin: 05/07/17 21:48 Dose: 110 mls/hr Lactobacillus Acidophilus (Bacid Acidophilus) 1 cap PO BID [facility] Last Admin: 05/07/17 17:01 Dose: 1 cap Magnesium Oxide (Mag-Ox) 400 mg PO BID [facility] Last Admin: 05/07/17 17:00 Dose: 400 mg Pantoprazole Sodium (Protonix Susp) 40 mg NG DAILY [facility] Last Admin: 05/07/17 09:37 Dose: 40 mg Potassium Chloride (Potassium Chloride Oral Soln) 40 meq NG BID [facility] Last Admin: 05/07/17 17:01 Dose: 40 meq Thiamine HCl (Vitamin B1 Tab) 100 mg PO DAILY [facility] Last Admin: 05/07/17 09:37 Dose: 100 mg Zinc Sulfate (Zinc Sulfate 220 Mg Cap) 220 mg PO DAILY [facility] Last Admin: 05/07/17 09:41 Dose: 220 mg - Labs Labs: 05/05/17 04:20 05/06/17 07:40 PT 12.1 Seconds (9.8-13.1) 05/01/17 02:35 INR 1.1 (0.9-1.2) 05/01/17 02:35 APTT 26.2 Seconds (25.6-37.1) 05/01/17 02:35 - Constitutional Appears: No Acute Distress - Head Exam Head Exam: ATRAUMATIC - Neurological Exam Neurological Exam: Awake Neuro motor strength exam: Left Upper Extremity: 0, Right Upper Extremity: 0, Left Lower Extremity: 0, Right Lower Extremity: 0 Additional comments: She is unable to respond using non-verbal cues and unable to follow commands. Assessment and Plan (1) Seizure Assessment & Plan: Case discussed with Dr. Blanco, continue all current medical regimen. will repeat EEG to verify any further seizures. Status: Acute
[2017-05-08 08:01] LABS: BASO # 0.1 K/uL (0.0-0.2); BASO % 0.3 % (0.0-2.0); EOS % 0.2 % (0.0-4.0); HEMATOCRIT 23.7 % (34.0-47.0); LYMPH # 0.6 K/uL (1.0-4.3); LYMPH % 3.5 % (20.0-40.0); MEAN CORPUSCULAR HEMOGLOBIN 27.8 pg (27.0-31.0); MEAN PLATELET VOLUME 7.1 fl (7.2-11.7); MONO # 1.4 K/uL (0.0-0.8); MONO % 8.7 % (0.0-10.0); NEUT # 13.9 K/uL (1.8-7.0); NEUT % 87.3 % (50.0-75.0); PLATELET COUNT 230 K/uL (130-400); RED CELL DISTRIBUTION WIDTH 17.9 % (11.5-14.5)
[2017-05-08 08:10] LABS: ALKALINE PHOSPHATASE 300 U/L (38-126); ALT/SGPT 64 U/L (9-52); AST/SGOT 55 U/L (14-36); BILIRUBIN,TOTAL 0.5 mg/dl (0.2-1.3); BLOOD UREA NITROGEN 22 mg/dl (7-17); CALCIUM 8.8 mg/dL (8.4-10.2); CARBON DIOXIDE 25 mmol/L (22-30); CHLORIDE 106 mmol/L (98-107); GFR AFRICAN-AMERICAN > 60; GLUCOSE,RANDOM 107 mg/dL (65-105); POTASSIUM 3.8 MMOL/L (3.6-5.0); SODIUM 141 mmol/l (132-148); TOTAL PROTEIN 6.5 G/DL (6.3-8.2)
[2017-05-08] MEDS: Lactobacillus Acidophilus 500 MU Cap PO SCH ×2 (09:29→17:52)
[2017-05-08] MEDS: Clindamycin in NS 300 MG/50 ML BAG IVPB SCH (09:29)
[2017-05-08] MEDS: Linezolid 600 mg in D5W 300 ml 600 MG/300 ML BAG IVPB SCH (09:34)
[2017-05-08] MEDS: Cholestyramine 4 gm/Pkt UD PO SCH (09:35)
[2017-05-08] MEDS: Potassium Chloride 20 mEq/15 ml LIQ UD NG SCH ×2 (09:36→16:49)
[2017-05-08] MEDS: Magnesium Oxide 400 mg Tab UD PO SCH ×2 (09:36→16:49)
[2017-05-08] MEDS: Pantoprazole 40 mg Susp UD NG SCH (09:36)
[2017-05-08] MEDS: Santyl Collagenase OINTMENT TOP SCH ×2 (09:38→21:39)
[2017-05-08 10:22] LABS: EOSINOPHIL 1 % (0-7); METAMYELOCYTE 1 % (0-0); NEUTROPHIL 81 % (42-75); TOTAL CELLS COUNTED 100
[2017-05-08 10:23] LABS: PLATELET CLUMPS PRESENT
[2017-05-08 10:46] LABS: HEMATOCRIT 25.9 % (34.0-47.0); MEAN CELL VOLUME 86.5 fl (81.0-99.0); MEAN CORPUSCULAR HEMOGLOBIN 27.4 pg (27.0-31.0); MEAN CORPUSCULAR HGB CONC 31.7 g/dL (33.0-37.0); RED CELL DISTRIBUTION WIDTH 17.6 % (11.5-14.5); WHITE BLOOD COUNT 17.7 K/uL (4.8-10.8)
[2017-05-08 11:07] LABS: PARTIAL THROMBOPLASTIN TIME 23.5 Seconds (25.6-37.1)
[2017-05-08] MEDS: Lacosamide 200mg/20ml 100 MG in Sodium Chloride 0.9% 100 ML IVPB SCH ×2 (11:09→23:05)
[2017-05-08] MEDS ORDERED: Sodium Chloride 0.9% 1,000 ML IV SCH (13:15)
--- NOTE | 2017-05-08 14:25 | PCM.RRT ---
<Fredrick Kapadia - Last Filed: 05/08/17 14:42> [employer] Nurse Assessment - Situation [employer] Responder Arrival Time: 12:48 Location: 4N Room Number: 412 [employer] Reason for Call: Hypotension [employer] Called By: RN - IV IV Inserted during [employer]?: No - Respiratory Oxygen Delivery Method: Trach Collar, CPap Received Nebulizer Treatments: No Was the Patient Ventilated with Bag/Mask 100% O2?: No (on mechanical Vent.) Secretions Suctioned?: Yes Was the Patient Intubated?: No (tracheostomy) Was the Patient Placed on a Ventilator?: No (pt. already on the vent) - Ventilator Settings Mode: CPAP Ventilator Respiratory Rate Settin PEEP/CPAP (cm H2O): 5 FIO2 (% Oxygen): 35 - Medication Medications Administered During [employer]: NS 0.9% IV bolus - Diagnostic Test Ordered EKG: No Chest X-Ray: No CT Scan: No CPR started during [employer]?: No - Vital Signs Vital Signs: Rapid Response Vital Sign Blood Pressure 100/62 Pulse Rate 124 Respiratory Rate 18 Temperature 98.1 F Oxygen Saturation 95 - Time [employer] Ended Time [employer] Ended: 13:15 - Vital Signs at end of [employer] Vital Signs at end of [employer]: Rapid Response End Vital Sign Blood Pressure 97/60 Pulse Rate 120 Respiratory Rate 18 O2 Sat by Pulse Oximetry 100 - Recommendations [employer] Level of Care Recommendations: Remain in current setting I.Reason for [employer] - A) Acute Change in Patient: (Select all that apply): Staff member or family is worried about patient - Neurological Status (Select all that apply): Alert - Head Head Exam: NORMAL INSPECTION - Eyes Eye Exam: EOMI, PERRL - Respiratory Exam Respiratory Exam: Clear to Ausculation Bilateral - Cardiovascular Exam Cardiovascular Exam: Tachycardia, REGULAR RHYTHM, +S1, +S2 - GI/Abdominal Exam GI & Abdominal Exam: Soft. absent: Distended - Neurological Exam Neurological Exam: Awake Plan - Assessment of Findings&Treatment Plan [employer] called by RN due to labored breathing, hypotension and tachycardia 51 yo female patient with labored breathing, patient is intubated and on mechanical ventilation(CPAP), also patient is hypotensive and tachycardic. Patient also has diarrhea. No recent fever, chest pain,abdominal or any other pain. Impression: Hypotension likely due to diarrhea vs hypovolemia Patient remains intubated and on CPAP Cardiac monitoring NS 0.9% iv bolus Pt remains in current location. [employer] leader: Dr Bennett. [employer] residents: Dr Meeks, Dr Kapadia, Dr Messina <Juliet Bennett - Last Filed: 05/08/17 17:02> [employer] Nurse Assessment - Vital Signs Vital Signs: Rapid Response Vital Sign Blood Pressure 100/62 Pulse Rate 124 Respiratory Rate 18 Temperature 98.1 F Oxygen Saturation 95 - Vital Signs at end of [employer] Vital Signs at end of [employer]: Rapid Response End Vital Sign Blood Pressure 97/60 Pulse Rate 120 Respiratory Rate 18 O2 Sat by Pulse Oximetry 100 Attending/Attestation - Attestation I have personally seen and examined this patient.: Yes I have fully participated in the care of the patient.: Yes I have reviewed all pertinent clinical information, including history, physical exam and plan: Yes Notes (Text): [employer] called bec of Hypotension Responded to the [employer] with the Residents. BP 70 systolic, tachycardic to 120 Pt has been having diarrhea and also having gross hematuria no signs of GI bleed- aspirated NGT - no blood Pt has Hx of Tracheostomy on Vent with good saturation Hgb= 8.2 A/P: Hypotension likely sec to Hypovolemia due to Diarrhea and Anemia ( Hematuria) - IVF Bolus 1 liter - transfuse 2 units PRBC -Maintain pt on IVF D5 NS 100 ml/hr - Stool C diff - ICU consulted - Dr Harvey came to eval pt - since pt BP improved with hydration , will keep pt in Telemetry - Dr Harvey spoke with PMD - Dr Cornejo -
--- NOTE | 2017-05-08 16:05 | CP.PCM.CON ---
History of Present Illness - History of Present Illness History of Present Illness: consultation for evaluation of hypotension HPI Past Patient History - Past Medical History & Family History Past Medical History?: Yes - Past Social History Smoking Status: Unknown If Ever Smoked Alcohol: None Drugs: Denies Home Situation {Lives}: With Family - CARDIAC Hx Cardiac Disorders: No - PULMONARY Hx Respiratory Disorders: Yes Other/Comment: P/E - NEUROLOGICAL Hx Neurological Disorder: No - HEENT Hx HEENT Problems: No - RENAL Other/Comment: hydronephrosis, R ureteral stent and removal (01/27/17). 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) - ENDOCRINE/METABOLIC Hx Endocrine Disorders: No - HEMATOLOGICAL/ONCOLOGICAL Hx Blood Disorders: Yes Hx Cancer: Yes (Cervical) - INTEGUMENTARY Hx Dermatological Problems: No - MUSCULOSKELETAL/RHEUMATOLOGICAL Hx Musculoskeletal Disorders: No - GASTROINTESTINAL Hx Gastrointestinal Disorders: Yes Hx Bowel Surgery: Yes Hx Fatty Liver Disease: Yes Other/Comment: small bowel enteritis - GENITOURINARY/GYNECOLOGICAL Hx Genitourinary Disorders: Yes Hx Ovarian Cancer: Yes - PSYCHIATRIC Hx Psychophysiologic Disorder: No Hx Substance Use: No - SURGICAL HISTORY Hx Surgeries: Yes Hx Cholecystectomy: Yes Hx Hysterectomy: Yes Other/Comment: RODRIGO, BSO, Laparotomy, R ureteral stent , IVC filter - ANESTHESIA Hx Anesthesia: Yes Hx Anesthesia Reactions: No Meds Allergies/Adverse Reactions: Allergies Allergy/AdvReac Type Severity Reaction Status Date / Time cimetidine [From [facility]] Allergy RASH Verified 04/04/17 05:33 nickel Allergy RASH Verified 04/04/17 05:34 Penicillins Allergy RASH Verified 04/04/17 05:33 - Medications Medications: Current Medications Acetaminophen (Tylenol 650 Mg Supp) 650 mg [place] Q4 PRN PRN Reason: Fever >100.4 F Last Admin: 05/08/17 00:10 Dose: 650 mg Ascorbic Acid (Vitamin C 250 Mg Tab) 250 mg PO DAILY [facility] Last Admin: 05/08/17 09:38 Dose: 250 mg Cholestyramine Resin (Questran) 4 gm PO DAILY [facility] Last Admin: 05/08/17 09:35 Dose: 4 gm Collagenase (Santyl) 1 applic TOP Q12 [facility] Last Admin: 05/08/17 09:38 Dose: 1 applic Diltiazem HCl (Cardizem) 30 mg NG TID [facility] Last Admin: 05/08/17 13:40 Dose: 30 mg Dimethicone (Proshield Plus Skin Protectant) 1 applic TOP Q8 [facility] Last Admin: 05/08/17 09:38 Dose: 1 applic Hydrocortisone Sodium Succinate (Solu-Cortef) 10 mg IV DAILY [facility] Last Admin: 05/08/17 09:35 Dose: 10 mg Clindamycin in NS (Clindamycin 300 Mg/50 Ml-Ns) 300 mg in 50 mls @ 50 mls/hr IVPB Q12 [facility] PRN Reason: Protocol Last Admin: 05/08/17 09:29 Dose: 50 mls/hr Linezolid (Zyvox 600mg/300ml D5w) 600 mg in 300 mls @ 300 mls/hr IVPB Q12 [facility] PRN Reason: Protocol Last Admin: 05/08/17 09:34 Dose: 300 mls/hr Tobramycin Sulfate 60 mg/ (Sodium Chloride) 51.5 mls @ 50.739 mls/hr IV Q24H [facility] Last Admin: 05/07/17 13:40 Dose: 50.739 mls/hr Lacosamide 100 mg/ Sodium (Chloride) 110 mls @ 110 mls/hr IVPB Q12@0800,2000 [facility] Last Admin: 05/08/17 11:09 Dose: 110 mls/hr Sodium Chloride (Sodium Chloride 0.9%) 1,000 mls @ 999 mls/hr IV .Q1H1M [facility] Stop: 05/09/17 13:05 Last Admin: 05/08/17 13:37 Dose: 999 mls/hr Dextrose/Sodium Chloride (Dextrose 5%/0.9% Ns 1000 Ml) 1,000 mls @ 80 mls/hr IV .[id number] [facility] Stop: 05/09/17 13:15 Lactobacillus Acidophilus (Bacid Acidophilus) 1 cap PO BID [facility] Last Admin: 05/08/17 09:29 Dose: 1 cap Magnesium Oxide (Mag-Ox) 400 mg PO BID [facility] Last Admin: 05/08/17 09:36 Dose: 400 mg Pantoprazole Sodium (Protonix Susp) 40 mg NG DAILY [facility] Last Admin: 05/08/17 09:36 Dose: 40 mg Potassium Chloride (Potassium Chloride Oral Soln) 40 meq NG BID [facility] Last Admin: 05/08/17 09:36 Dose: 40 meq Thiamine HCl (Vitamin B1 Tab) 100 mg PO DAILY [facility] Last Admin: 05/08/17 09:38 Dose: 100 mg Zinc Sulfate (Zinc Sulfate 220 Mg Cap) 220 mg PO DAILY [facility] Last Admin: 05/08/17 09:39 Dose: 220 mg Results - Vital Signs Recent Vital Signs: Last Vital Signs Temp 98.4 F 05/08/17 11:57 Pulse 110 H 05/08/17 13:40 Resp 20 05/08/17 13:40 BP 107/66 05/08/17 11:57 Pulse Ox 100 05/08/17 13:40 - Labs Result Diagrams: 05/08/17 10:34 05/08/17 06:30 Labs: Laboratory Results - last 24 hr 05/08/17 05/08/17 05/08/17 06:30 06:30 10:34 WBC 16.0 H 17.7 H RBC 2.73 L 3.00 L Hgb 7.6 L 8.2 L Hct 23.7 L 25.9 L MCV 87.0 86.5 MCH 27.8 27.4 MCHC 32.0 L 31.7 L RDW 17.9 H 17.6 H Plt Count 230 246 MPV 7.1 L Neut % (Auto) 87.3 H Lymph % (Auto) 3.5 L Lea % (Auto) 8.7 Eos % (Auto) 0.2 Baso % (Auto) 0.3 Neut # 13.9 H Lymph # 0.6 L Lea # 1.4 H Eos # 0.0 Baso # 0.1 Neutrophils % (Manual) 81 H Band Neutrophils % 4 H Lymphocytes % (Manual) 6 L Monocytes % (Manual) 7 Eosinophils % (Manual) 1 Metamyelocytes % 1 H Toxic Granulation Present Platelet Estimate Normal Plt Clumps, EDTA Present Hypochromasia (manual) Slight Poikilocytosis (manual Slight Anisocytosis (manual) Marked Target Cells Slight Ovalocytes Slight PT INR APTT Sodium 141 Potassium 3.8 Chloride 106 Carbon Dioxide 25 Anion Gap 14 BUN 22 H Creatinine 1.0 Est GFR ( Amer) > 60 Est GFR (Non-Af Amer) 58 Random Glucose 107 H Calcium 8.8 Total Bilirubin 0.5 AST 55 H D ALT 64 H Alkaline Phosphatase 300 H Total Protein 6.5 Albumin 3.2 L Globulin 3.3 Albumin/Globulin Ratio 1.0 Blood Type Antibody Screen Crossmatch BBK History Checked 05/08/17 05/08/17 10:34 10:34 WBC RBC Hgb Hct MCV MCH MCHC RDW Plt Count MPV Neut % (Auto) Lymph % (Auto) Lea % (Auto) Eos % (Auto) Baso % (Auto) Neut # Lymph # Lea # Eos # Baso # Neutrophils % (Manual) Band Neutrophils % Lymphocytes % (Manual) Monocytes % (Manual) Eosinophils % (Manual) Metamyelocytes % Toxic Granulation Platelet Estimate Plt Clumps, EDTA Hypochromasia (manual) Poikilocytosis (manual Anisocytosis (manual) Target Cells Ovalocytes PT 14.2 H INR 1.3 H APTT 23.5 L Sodium Potassium Chloride Carbon Dioxide Anion Gap BUN Creatinine Est GFR ( Amer) Est GFR (Non-Af Amer) Random Glucose Calcium Total Bilirubin AST ALT Alkaline Phosphatase Total Protein Albumin Globulin Albumin/Globulin Ratio Blood Type A POSITIVE Antibody Screen Negative Crossmatch See Detail BBK History Checked Patient has bt
[2017-05-08] MEDS: Dextrose 5%/0.9% NS 1,000 ML IV SCH (16:42)
[2017-05-08] MEDS: SODIUM CHLORIDE 0.9% IV SCH (16:53)
[2017-05-08] MEDS: TOBRAMYCIN IV SCH (16:53)
[2017-05-08] MEDS ORDERED: Sodium Chloride 3% for Inhalation 4 ML VIAL.NEB IH PRN (17:13)
--- NOTE | 2017-05-08 17:15 | CP.PCM.PN ---
Subjective - Date & Time of Evaluation Date of Evaluation: 05/08/17 Time of Evaluation: 15:00 - Subjective Subjective: F/U Respiratory Failure. Pt awake, following conversations with the eyes. Objective - Vital Signs/Intake and Output Vital Signs (last 24 hours): Temp Pulse Resp BP Pulse Ox 98.9 F 110 H 14 119/81 100 05/08/17 16:52 05/08/17 16:52 05/08/17 16:52 05/08/17 16:52 05/08/17 16:52 - Medications Medications: Current Medications Acetaminophen (Tylenol 650 Mg Supp) 650 mg [place] Q4 PRN PRN Reason: Fever >100.4 F Last Admin: 05/08/17 00:10 Dose: 650 mg Ascorbic Acid (Vitamin C 250 Mg Tab) 250 mg PO DAILY [facility] Last Admin: 05/08/17 09:38 Dose: 250 mg Cholestyramine Resin (Questran) 4 gm PO DAILY [facility] Last Admin: 05/08/17 09:35 Dose: 4 gm Collagenase (Santyl) 1 applic TOP Q12 [facility] Last Admin: 05/08/17 09:38 Dose: 1 applic Diltiazem HCl (Cardizem) 30 mg NG TID [facility] Last Admin: 05/08/17 16:47 Dose: 30 mg Dimethicone (Proshield Plus Skin Protectant) 1 applic TOP Q8 [facility] Last Admin: 05/08/17 16:50 Dose: 1 applic Hydrocortisone Sodium Succinate (Solu-Cortef) 10 mg IV DAILY [facility] Last Admin: 05/08/17 09:35 Dose: 10 mg Linezolid (Zyvox 600mg/300ml D5w) 600 mg in 300 mls @ 300 mls/hr IVPB Q12 [facility] PRN Reason: Protocol Last Admin: 05/08/17 09:34 Dose: 300 mls/hr Tobramycin Sulfate 60 mg/ (Sodium Chloride) 51.5 mls @ 50.739 mls/hr IV Q24H [facility] Last Admin: 05/08/17 16:53 Dose: 50.739 mls/hr Lacosamide 100 mg/ Sodium (Chloride) 110 mls @ 110 mls/hr IVPB Q12@0800,2000 [facility] Last Admin: 05/08/17 11:09 Dose: 110 mls/hr Sodium Chloride (Sodium Chloride 0.9%) 1,000 mls @ 999 mls/hr IV .Q1H1M [facility] Stop: 05/09/17 13:05 Last Admin: 05/08/17 13:37 Dose: 999 mls/hr Dextrose/Sodium Chloride (Dextrose 5%/0.9% Ns 1000 Ml) 1,000 mls @ 80 mls/hr IV .[id number] [facility] Stop: 05/09/17 13:15 Last Admin: 05/08/17 16:42 Dose: 80 mls/hr Lactobacillus Acidophilus (Bacid Acidophilus) 1 cap PO BID [facility] Last Admin: 05/08/17 09:29 Dose: 1 cap Magnesium Oxide (Mag-Ox) 400 mg PO BID [facility] Last Admin: 05/08/17 16:49 Dose: 400 mg Pantoprazole Sodium (Protonix Susp) 40 mg NG DAILY [facility] Last Admin: 05/08/17 09:36 Dose: 40 mg Potassium Chloride (Potassium Chloride Oral Soln) 40 meq NG BID [facility] Last Admin: 05/08/17 16:49 Dose: 40 meq Thiamine HCl (Vitamin B1 Tab) 100 mg PO DAILY [facility] Last Admin: 05/08/17 09:38 Dose: 100 mg Zinc Sulfate (Zinc Sulfate 220 Mg Cap) 220 mg PO DAILY [facility] Last Admin: 05/08/17 09:39 Dose: 220 mg - Labs Labs: 05/08/17 10:34 05/08/17 06:30 PT 14.2 Seconds (9.8-13.1) H 05/08/17 10:34 INR 1.3 (0.9-1.2) H 05/08/17 10:34 APTT 23.5 Seconds (25.6-37.1) L 05/08/17 10:34 - Constitutional Appears: No Acute Distress, Chronically Ill - Head Exam Head Exam: NORMAL INSPECTION - Eye Exam Eye Exam: PERRL - ENT Exam Additional comments: Intubated - Neck Exam Neck Exam: Normal Inspection - Respiratory Exam Respiratory Exam: Rhonchi (scattered) - Cardiovascular Exam Cardiovascular Exam: REGULAR RHYTHM - GI/Abdominal Exam GI & Abdominal Exam: Soft, Normal Bowel Sounds - Extremities Exam Extremities Exam: Pedal Edema Additional comments: L heel and R lateral ankle DTI, MSAD posterior thigh - Back Exam Additional comments: MSAD buttock, sacrum and R flank - Neurological Exam Neurological Exam: Awake Additional comments: Aware of simple commands. - Skin Skin Exam: Warm Assessment and Plan (1) Acute respiratory failure Status: Acute (2) Status post tracheostomy Status: Acute (3) Shock Status: Deleted (4) Pneumonia Status: Acute (5) Acute renal failure (ARF) Status: Acute (6) Anemia Status: Acute (7) Hematuria, gross Status: Deleted (8) Thrombocytopenia Status: Resolved (9) History of pulmonary embolus (PE) Status: Acute (10) Pancolitis Status: Deleted - Assessment and Plan (Free Text) Plan: Continue on CPAP/ PS, To have Peg tube inserted tomorrow, inserted 2 U PRBC due to anemia, f/u cardiology for Colostomy. CPAP/ PS.
--- NOTE | 2017-05-08 17:45 | CP.PCM.PN ---
Subjective - Date & Time of Evaluation Date of Evaluation: 05/08/17 Time of Evaluation: 17:44 - Subjective Subjective: Follow up Nephrology Consultation Note Assessment: stable Hypomagnesemia, Hypokalemia: improved Non-oliguric Acute Kidney Injury (N17.9) likely due to acute tubular necrosis due to septic shock, required renal replacement therapy: resolved Acute respi failure Sepsis with shock: resolved Obesity hx of ovarian CA s/p RODRIGO/BSO, DVT s/p IVC filter Anemia Plan supplement electrolytes as KDUR 40 meq bid (increased from 20 bid) supplement po mag as 400 mg bid Dose meds/antibiotics for improved GFR. Avoid fleets enema/magnesium based laxatives. Avoid nephrotoxins/NSAIDs Glycemic control Further work up for as per primary team Thanks for allowing me to participate in care of your patient. Will follow patient with you. Please call if any Qs Dr Reji Nunez Office: [phone] Subjective: Noted events overnight. Patients s/p trach unable to obtain hx from patient. Physical Examination: General Appearance: Comfortable, in no acute respiratory distress, ill appearing , s/p trach Vitals reviewed and noted as below Lungs: Normal respiratory rate/effort. Breath sounds bilateral equal Heart: Normal rate. s1s2 normal. No rub or gallop. Extremities: no edema. Neurological: Patient is sleeping not communicative at present Skin: Warm and dry. Normal turgor. No rash. Palpitation: Normal elasticity for age Abdomen: Abdomen is soft. Bowel sounds +. There is no abdominal tenderness, no guarding/rigidity or organomegaly : kidney or bladder not palpable Access: none now Head; Atraumatic, normocephalic EYES: Pupils are equal, round and reactive to light accommodation. Eye muscles and extraocular movement intact. Sclera is anicteric. Neck; supple no lymphadenopathy, no thyromegaly or bruit Psych: Unable MSK: no joint tenderness or swelling. Digits and nails normal, no deformity Labs/imaging reviewed. Past medical history, past surgical history, family history, social history, allergy reviewed family hx No hx of CKD Objective - Vital Signs/Intake and Output Vital Signs (last 24 hours): Temp Pulse Resp BP Pulse Ox 98.9 F 110 H 14 119/81 100 05/08/17 16:52 05/08/17 16:52 05/08/17 16:52 05/08/17 16:52 05/08/17 16:52 - Medications Medications: Current Medications Acetaminophen (Tylenol 650 Mg Supp) 650 mg [place] Q4 PRN PRN Reason: Fever >100.4 F Last Admin: 05/08/17 00:10 Dose: 650 mg Albuterol/Ipratropium (Duoneb 3 Mg/0.5 Mg (3 Ml) Ud) 3 ml INH RQ6 PRN PRN Reason: Shortness of Breath Ascorbic Acid (Vitamin C 250 Mg Tab) 250 mg PO DAILY [facility] Last Admin: 05/08/17 09:38 Dose: 250 mg Cholestyramine Resin (Questran) 4 gm PO DAILY [facility] Last Admin: 05/08/17 09:35 Dose: 4 gm Collagenase (Santyl) 1 applic TOP Q12 [facility] Last Admin: 05/08/17 09:38 Dose: 1 applic Diltiazem HCl (Cardizem) 30 mg NG TID [facility] Last Admin: 05/08/17 16:47 Dose: 30 mg Dimethicone (Proshield Plus Skin Protectant) 1 applic TOP Q8 [facility] Last Admin: 05/08/17 16:50 Dose: 1 applic Hydrocortisone Sodium Succinate (Solu-Cortef) 10 mg IV DAILY [facility] Last Admin: 05/08/17 09:35 Dose: 10 mg Tobramycin Sulfate 60 mg/ (Sodium Chloride) 51.5 mls @ 50.739 mls/hr IV Q24H [facility] Last Admin: 05/08/17 16:53 Dose: 50.739 mls/hr Lacosamide 100 mg/ Sodium (Chloride) 110 mls @ 110 mls/hr IVPB Q12@0800,2000 [facility] Last Admin: 05/08/17 11:09 Dose: 110 mls/hr Sodium Chloride (Sodium Chloride 0.9%) 1,000 mls @ 999 mls/hr IV .Q1H1M [facility] Stop: 05/09/17 13:05 Last Admin: 05/08/17 13:37 Dose: 999 mls/hr Dextrose/Sodium Chloride (Dextrose 5%/0.9% Ns 1000 Ml) 1,000 mls @ 80 mls/hr IV .[id number] [facility] Stop: 05/09/17 13:15 Last Admin: 05/08/17 16:42 Dose: 80 mls/hr Ceftazidime/Avibactam 2.5 gm/ (Sodium Chloride) 100 mls @ 100 mls/hr IVPB Q8H [facility] PRN Reason: Protocol Lactobacillus Acidophilus (Bacid Acidophilus) 1 cap PO BID [facility] Last Admin: 05/08/17 09:29 Dose: 1 cap Magnesium Oxide (Mag-Ox) 400 mg PO BID [facility] Last Admin: 05/08/17 16:49 Dose: 400 mg Pantoprazole Sodium (Protonix Susp) 40 mg NG DAILY [facility] Last Admin: 05/08/17 09:36 Dose: 40 mg Potassium Chloride (Potassium Chloride Oral Soln) 40 meq NG BID [facility] Last Admin: 05/08/17 16:49 Dose: 40 meq Thiamine HCl (Vitamin B1 Tab) 100 mg PO DAILY [facility] Last Admin: 05/08/17 09:38 Dose: 100 mg Zinc Sulfate (Zinc Sulfate 220 Mg Cap) 220 mg PO DAILY [facility] Last Admin: 05/08/17 09:39 Dose: 220 mg - Labs Labs: 05/08/17 10:34 05/08/17 06:30 PT 14.2 Seconds (9.8-13.1) H 05/08/17 10:34 INR 1.3 (0.9-1.2) H 05/08/17 10:34 APTT 23.5 Seconds (25.6-37.1) L 05/08/17 10:34
--- NOTE | 2017-05-08 17:47 | CP.PCM.PN ---
Subjective - Date & Time of Evaluation Date of Evaluation: 05/08/17 Time of Evaluation: 17:45 - Subjective Subjective: I D NOTE HAVE STARTED AVYCAZ FOR MDR PSEUDOMONAS Objective - Vital Signs/Intake and Output Vital Signs (last 24 hours): Temp Pulse Resp BP Pulse Ox 98.9 F 110 H 14 119/81 100 05/08/17 16:52 05/08/17 16:52 05/08/17 16:52 05/08/17 16:52 05/08/17 16:52 - Medications Medications: Current Medications Acetaminophen (Tylenol 650 Mg Supp) 650 mg [place] Q4 PRN PRN Reason: Fever >100.4 F Last Admin: 05/08/17 00:10 Dose: 650 mg Albuterol/Ipratropium (Duoneb 3 Mg/0.5 Mg (3 Ml) Ud) 3 ml INH RQ6 PRN PRN Reason: Shortness of Breath Ascorbic Acid (Vitamin C 250 Mg Tab) 250 mg PO DAILY [facility] Last Admin: 05/08/17 09:38 Dose: 250 mg Cholestyramine Resin (Questran) 4 gm PO DAILY [facility] Last Admin: 05/08/17 09:35 Dose: 4 gm Collagenase (Santyl) 1 applic TOP Q12 [facility] Last Admin: 05/08/17 09:38 Dose: 1 applic Diltiazem HCl (Cardizem) 30 mg NG TID [facility] Last Admin: 05/08/17 16:47 Dose: 30 mg Dimethicone (Proshield Plus Skin Protectant) 1 applic TOP Q8 [facility] Last Admin: 05/08/17 16:50 Dose: 1 applic Hydrocortisone Sodium Succinate (Solu-Cortef) 10 mg IV DAILY [facility] Last Admin: 05/08/17 09:35 Dose: 10 mg Tobramycin Sulfate 60 mg/ (Sodium Chloride) 51.5 mls @ 50.739 mls/hr IV Q24H [facility] Last Admin: 05/08/17 16:53 Dose: 50.739 mls/hr Lacosamide 100 mg/ Sodium (Chloride) 110 mls @ 110 mls/hr IVPB Q12@0800,2000 [facility] Last Admin: 05/08/17 11:09 Dose: 110 mls/hr Sodium Chloride (Sodium Chloride 0.9%) 1,000 mls @ 999 mls/hr IV .Q1H1M [facility] Stop: 05/09/17 13:05 Last Admin: 05/08/17 13:37 Dose: 999 mls/hr Dextrose/Sodium Chloride (Dextrose 5%/0.9% Ns 1000 Ml) 1,000 mls @ 80 mls/hr IV .[id number] [facility] Stop: 05/09/17 13:15 Last Admin: 05/08/17 16:42 Dose: 80 mls/hr Ceftazidime/Avibactam 2.5 gm/ (Sodium Chloride) 100 mls @ 100 mls/hr IVPB Q8H [facility] PRN Reason: Protocol Lactobacillus Acidophilus (Bacid Acidophilus) 1 cap PO BID [facility] Last Admin: 05/08/17 09:29 Dose: 1 cap Magnesium Oxide (Mag-Ox) 400 mg PO BID [facility] Last Admin: 05/08/17 16:49 Dose: 400 mg Pantoprazole Sodium (Protonix Susp) 40 mg NG DAILY [facility] Last Admin: 05/08/17 09:36 Dose: 40 mg Potassium Chloride (Potassium Chloride Oral Soln) 40 meq NG BID [facility] Last Admin: 05/08/17 16:49 Dose: 40 meq Thiamine HCl (Vitamin B1 Tab) 100 mg PO DAILY [facility] Last Admin: 05/08/17 09:38 Dose: 100 mg Zinc Sulfate (Zinc Sulfate 220 Mg Cap) 220 mg PO DAILY [facility] Last Admin: 05/08/17 09:39 Dose: 220 mg - Labs Labs: 05/08/17 10:34 05/08/17 06:30 PT 14.2 Seconds (9.8-13.1) H 05/08/17 10:34 INR 1.3 (0.9-1.2) H 05/08/17 10:34 APTT 23.5 Seconds (25.6-37.1) L 05/08/17 10:34
[2017-05-08] MEDS: Albuterol-Ipratrop 3 mg / 0.5 (3 ml) UD INH PRN (19:40)
[2017-05-08 20:16] LABS: RBC URINE 948 /hpf (0-3); URINE BACTERIA OCC (<OCC); URINE BILIRUBIN NEGATIVE (NEGATIVE); URINE BLOOD LARGE (NEGATIVE); URINE GLUCOSE (UA) 50 mg/dL (Normal); URINE KETONE NEGATIVE (NEGATIVE); URINE LEUKOCYTE ESTERASE LARGE Leu/uL (Negative); URINE PROTEIN 30 mg/dL (NEGATIVE); URINE UROBILINOGEN 0.2-1.0 mg/dL (0.2-1.0); WBC CLUMPS MANY /hpf; WBC URINE 242 /hpf (0-5)
[2017-05-08 20:17] LABS: URINE CALCIUM OXALATE CRYSTALS FEW /hpf (<OCC); URINE COLOR LIGHT RED (YELLOW)
[2017-05-09] MEDS: Proshield Plus GEL TOP SCH ×3 (03:03→21:03)
[2017-05-09 05:23] LABS: BASO % 0.3 % (0.0-2.0); EOS % 0.4 % (0.0-4.0); HEMATOCRIT 24.3 % (34.0-47.0); LYMPH # 0.3 K/uL (1.0-4.3); MEAN CELL VOLUME 88.4 fl (81.0-99.0); MEAN CORPUSCULAR HEMOGLOBIN 29.1 pg (27.0-31.0); MEAN PLATELET VOLUME 7.1 fl (7.2-11.7); MONO % 9.7 % (0.0-10.0); NEUT # 8.9 K/uL (1.8-7.0); NEUT % 86.6 % (50.0-75.0); NRBC % 0.5 % (0.0-0.0); RED CELL DISTRIBUTION WIDTH 17.4 % (11.5-14.5); WHITE BLOOD COUNT 10.2 K/uL (4.8-10.8)
[2017-05-09 05:33] LABS: ALB/GLOB RATIO 0.9 (1.0-2.1); ALKALINE PHOSPHATASE 246 U/L (38-126); ALT/SGPT 56 U/L (9-52); AST/SGOT 30 U/L (14-36); BILIRUBIN,TOTAL 0.6 mg/dl (0.2-1.3); BLOOD UREA NITROGEN 17 mg/dl (7-17); CALCIUM 8.5 mg/dL (8.4-10.2); CARBON DIOXIDE 22 mmol/L (22-30); CHLORIDE 112 mmol/L (98-107); GFR AFRICAN-AMERICAN > 60; GLUCOSE,RANDOM 89 mg/dL (65-105); POTASSIUM 3.3 MMOL/L (3.6-5.0); SODIUM 146 mmol/l (132-148); TOTAL PROTEIN 5.7 G/DL (6.3-8.2)
[2017-05-09] MEDS: Dextrose 5%/0.9% NS 1,000 ML IV SCH (06:18)
[2017-05-09] MEDS: Lacosamide 200mg/20ml 100 MG in Sodium Chloride 0.9% 100 ML IVPB SCH ×2 (09:12→21:00)
[2017-05-09] MEDS: Pantoprazole 40 mg Susp UD NG SCH (09:15)
[2017-05-09] MEDS: Magnesium Oxide 400 mg Tab UD PO SCH ×2 (09:17→16:54)
[2017-05-09] MEDS: Cholestyramine 4 gm/Pkt UD PO SCH (09:18)
--- NOTE | 2017-05-09 09:34 | CP.PCM.PN ---
Subjective - Date & Time of Evaluation Date of Evaluation: 05/09/17 Time of Evaluation: 09:31 - Subjective Subjective: Ms. Yordy Schaefr was seen and examined at the bedside. She is awake spontaneously blinks her eyes but with no verbal response. She remains on ventilator in place - PRVC AC mode- RR:14, PEEP:5, TV:450, FiO2:35, tracheostomy in place #8 [place]. Her breathing is improved in comparison from yesterday. She has a left nostril NGT. She has edema noted on her left hand. She is on a clinitron bed. [employer] was called yesterday due to hypotension and tachycardia. Objective - Vital Signs/Intake and Output Vital Signs (last 24 hours): Temp Pulse Resp BP Pulse Ox 98.0 F 114 H 14 120/73 99 05/09/17 08:00 05/09/17 09:15 05/09/17 09:15 05/09/17 08:00 05/09/17 09:15 Intake and Output: 05/09/17 05/09/17 06:59 18:59 Intake Total 4653 Output Total 3700 Balance 953 - Medications Medications: Current Medications Acetaminophen (Tylenol 650 Mg Supp) 650 mg [place] Q4 PRN PRN Reason: Fever >100.4 F Last Admin: 05/08/17 00:10 Dose: 650 mg Albuterol/Ipratropium (Duoneb 3 Mg/0.5 Mg (3 Ml) Ud) 3 ml INH RQ6 PRN PRN Reason: Shortness of Breath Last Admin: 05/08/17 19:40 Dose: 3 ml Ascorbic Acid (Vitamin C 250 Mg Tab) 250 mg PO DAILY [facility] Last Admin: 05/09/17 09:19 Dose: 250 mg Cholestyramine Resin (Questran) 4 gm PO DAILY [facility] Last Admin: 05/09/17 09:18 Dose: 4 gm Collagenase (Santyl) 1 applic TOP Q12 [facility] Last Admin: 05/08/17 21:39 Dose: 1 applic Diltiazem HCl (Cardizem) 30 mg NG TID [facility] Last Admin: 05/09/17 09:15 Dose: 30 mg Dimethicone (Proshield Plus Skin Protectant) 1 applic TOP Q8 [facility] Last Admin: 05/09/17 03:03 Dose: 1 applic Hydrocortisone Sodium Succinate (Solu-Cortef) 10 mg IV DAILY [facility] Last Admin: 05/09/17 09:18 Dose: 10 mg Tobramycin Sulfate 60 mg/ (Sodium Chloride) 51.5 mls @ 50.739 mls/hr IV Q24H [facility] Last Admin: 05/08/17 16:53 Dose: 50.739 mls/hr Lacosamide 100 mg/ Sodium (Chloride) 110 mls @ 110 mls/hr IVPB Q12@0800,2000 [facility] Last Admin: 05/09/17 09:12 Dose: 110 mls/hr Sodium Chloride (Sodium Chloride 0.9%) 1,000 mls @ 999 mls/hr IV .Q1H1M [facility] Stop: 05/09/17 13:05 Last Admin: 05/08/17 13:37 Dose: 999 mls/hr Dextrose/Sodium Chloride (Dextrose 5%/0.9% Ns 1000 Ml) 1,000 mls @ 80 mls/hr IV .[id number] [facility] Stop: 05/09/17 13:15 Last Admin: 05/09/17 06:18 Dose: 80 mls/hr Ceftazidime/Avibactam 2.5 gm/ (Sodium Chloride) 100 mls @ 100 mls/hr IVPB Q8H [facility] PRN Reason: Protocol Last Admin: 05/09/17 09:13 Dose: 100 mls/hr Lactobacillus Acidophilus (Bacid Acidophilus) 1 cap PO BID [facility] Last Admin: 05/08/17 17:52 Dose: 1 cap Magnesium Oxide (Mag-Ox) 400 mg PO BID [facility] Last Admin: 05/09/17 09:17 Dose: 400 mg Pantoprazole Sodium (Protonix Susp) 40 mg NG DAILY [facility] Last Admin: 05/09/17 09:15 Dose: 40 mg Potassium Chloride (Potassium Chloride Oral Soln) 40 meq NG BID [facility] Last Admin: 05/08/17 16:49 Dose: 40 meq Thiamine HCl (Vitamin B1 Tab) 100 mg PO DAILY [facility] Last Admin: 05/09/17 09:15 Dose: 100 mg Zinc Sulfate (Zinc Sulfate 220 Mg Cap) 220 mg PO DAILY [facility] Last Admin: 05/09/17 09:15 Dose: 220 mg - Labs Labs: 05/09/17 04:30 05/09/17 04:30 PT 14.2 Seconds (9.8-13.1) H 05/08/17 10:34 INR 1.3 (0.9-1.2) H 05/08/17 10:34 APTT 23.5 Seconds (25.6-37.1) L 05/08/17 10:34 - Constitutional Appears: No Acute Distress - Head Exam Head Exam: ATRAUMATIC - Eye Exam Eye Exam: PERRL Pupil Exam: PERRL - Neurological Exam Neurological Exam: Awake Neuro motor strength exam: Left Upper Extremity: 0, Right Upper Extremity: 0, Left Lower Extremity: 0, Right Lower Extremity: 0 Additional comments: She is unable to response using non-verbal cues. She can sponsteanously blinks her eyes. Assessment and Plan (1) Seizure Assessment & Plan: Case discussed with Dr. Blanco, continue all current medical regimen. Pending EEG . Status: Acute
[2017-05-09] MEDS: Santyl Collagenase OINTMENT TOP SCH ×2 (09:39→21:02)
[2017-05-09] MEDS: Potassium Chloride 20 mEq/15 ml LIQ UD NG SCH ×2 (09:45→16:53)
[2017-05-09] MEDS: Lactobacillus Acidophilus 500 MU Cap PO SCH ×2 (09:46→16:53)
[2017-05-09 10:05] LABS: MEAN CORPUSCULAR HEMOGLOBIN 28.7 pg (27.0-31.0); MEAN CORPUSCULAR HGB CONC 33.7 g/dL (33.0-37.0); WHITE BLOOD COUNT 12.6 K/uL (4.8-10.8)
[2017-05-09 10:08] LABS: MEAN CELL VOLUME 85.2 fl (81.0-99.0)
--- NOTE | 2017-05-09 10:21 | CP.PCM.PN ---
Subjective - Date & Time of Evaluation Date of Evaluation: 05/09/17 Time of Evaluation: 10:19 - Subjective Subjective: may be opening. Eyes at the time Otherwise no significant changes. Test reviewed Objective - Vital Signs/Intake and Output Vital Signs (last 24 hours): Temp Pulse Resp BP Pulse Ox 98.0 F 114 H 14 120/73 99 05/09/17 08:00 05/09/17 09:15 05/09/17 09:15 05/09/17 08:00 05/09/17 09:15 Intake and Output: 05/09/17 05/09/17 06:59 18:59 Intake Total 4653 Output Total 3700 Balance 953 - Medications Medications: Current Medications Acetaminophen (Tylenol 650 Mg Supp) 650 mg [place] Q4 PRN PRN Reason: Fever >100.4 F Last Admin: 05/08/17 00:10 Dose: 650 mg Albuterol/Ipratropium (Duoneb 3 Mg/0.5 Mg (3 Ml) Ud) 3 ml INH RQ6 PRN PRN Reason: Shortness of Breath Last Admin: 05/08/17 19:40 Dose: 3 ml Ascorbic Acid (Vitamin C 250 Mg Tab) 250 mg PO DAILY [facility] Last Admin: 05/09/17 09:19 Dose: 250 mg Cholestyramine Resin (Questran) 4 gm PO DAILY [facility] Last Admin: 05/09/17 09:18 Dose: 4 gm Collagenase (Santyl) 1 applic TOP Q12 [facility] Last Admin: 05/09/17 09:39 Dose: 1 applic Diltiazem HCl (Cardizem) 30 mg NG TID [facility] Last Admin: 05/09/17 09:15 Dose: 30 mg Dimethicone (Proshield Plus Skin Protectant) 1 applic TOP Q8 [facility] Last Admin: 05/09/17 09:38 Dose: 1 applic Hydrocortisone Sodium Succinate (Solu-Cortef) 10 mg IV DAILY [facility] Last Admin: 05/09/17 09:18 Dose: 10 mg Tobramycin Sulfate 60 mg/ (Sodium Chloride) 51.5 mls @ 50.739 mls/hr IV Q24H [facility] Last Admin: 05/08/17 16:53 Dose: 50.739 mls/hr Lacosamide 100 mg/ Sodium (Chloride) 110 mls @ 110 mls/hr IVPB Q12@0800,2000 [facility] Last Admin: 05/09/17 09:12 Dose: 110 mls/hr Sodium Chloride (Sodium Chloride 0.9%) 1,000 mls @ 999 mls/hr IV .Q1H1M [facility] Stop: 05/09/17 13:05 Last Admin: 05/08/17 13:37 Dose: 999 mls/hr Dextrose/Sodium Chloride (Dextrose 5%/0.9% Ns 1000 Ml) 1,000 mls @ 80 mls/hr IV .[id number] [facility] Stop: 05/09/17 13:15 Last Admin: 05/09/17 06:18 Dose: 80 mls/hr Ceftazidime/Avibactam 2.5 gm/ (Sodium Chloride) 100 mls @ 100 mls/hr IVPB Q8H [facility] PRN Reason: Protocol Last Admin: 05/09/17 09:13 Dose: 100 mls/hr Lactobacillus Acidophilus (Bacid Acidophilus) 1 cap PO BID [facility] Last Admin: 05/09/17 09:46 Dose: 1 cap Magnesium Oxide (Mag-Ox) 400 mg PO BID [facility] Last Admin: 05/09/17 09:17 Dose: 400 mg Pantoprazole Sodium (Protonix Susp) 40 mg NG DAILY [facility] Last Admin: 05/09/17 09:15 Dose: 40 mg Potassium Chloride (Potassium Chloride Oral Soln) 40 meq NG BID [facility] Last Admin: 05/09/17 09:45 Dose: 40 meq Thiamine HCl (Vitamin B1 Tab) 100 mg PO DAILY [facility] Last Admin: 05/09/17 09:15 Dose: 100 mg Zinc Sulfate (Zinc Sulfate 220 Mg Cap) 220 mg PO DAILY [facility] Last Admin: 05/09/17 09:15 Dose: 220 mg - Labs Labs: 05/09/17 09:30 05/09/17 04:30 PT 14.2 Seconds (9.8-13.1) H 05/08/17 10:34 INR 1.3 (0.9-1.2) H 05/08/17 10:34 APTT 23.5 Seconds (25.6-37.1) L 05/08/17 10:34 - Constitutional Appears: No Acute Distress - Eye Exam Eye Exam: Conjunctival injection - ENT Exam ENT Exam: Mucous Membranes Moist - Neck Exam Neck Exam: absent: Lymphadenopathy - Respiratory Exam Respiratory Exam: absent: Chest Wall Tenderness, Rhonchi - Cardiovascular Exam Cardiovascular Exam: REGULAR RHYTHM. absent: JVD, Rubs - GI/Abdominal Exam GI & Abdominal Exam: Soft, Normal Bowel Sounds. absent: Rigid - Extremities Exam Extremities Exam: absent: Calf Tenderness - Back Exam Back Exam: absent: CVA tenderness (L), CVA tenderness (R) - Neurological Exam Neurological Exam: Altered - Psychiatric Exam Psychiatric exam: Flat Affect - Skin Skin Exam: absent: Cyanosis Assessment and Plan (1) Acute renal injury due to circulatory failure Assessment & Plan: Hypokalemia persisted. Continue K Kasper 40 mEq twice a day. Hypomagnesemia continue magnesium oxide by mouth patient may need extra dose of intravenous magnesium after repeating serum magnesium level. Kidney function stable The rest of the medical problem as noted Respiratory failure patient has tracheostomy. Status post septic shock patient on antibiotics as noted. History of ovarian cancer with previous operation. Status: Acute (2) Altered mental status Status: Acute (3) GI bleed Status: Acute
--- NOTE | 2017-05-09 10:43 | RAD ---
HISTORY: bilateral effusion COMPARISON: Portable chest 05/06/2017. FINDINGS: Tracheostomy tube, nasogastric tube and right PICC are unchanged in position. LUNGS: Limited patchy atelectasis or infiltrates in the right perihilar region with remaining lung barrientos remarkable only for left basilar linear atelectasis. Positioning is improved in the interval, demonstrating the right hilar region better than previously shown. PLEURA: No significant pleural effusion identified, no pneumothorax apparent. CARDIOVASCULAR: Normal. OSSEOUS STRUCTURES: No significant abnormalities. VISUALIZED UPPER ABDOMEN: Normal. OTHER FINDINGS: None. IMPRESSION: Linear right perihilar patchy atelectasis or infiltrate is better defined as positioning is improved. Linear atelectasis in the left base.
[2017-05-09] MEDS ORDERED: Chlorhexidine Gluconate 1 APPL/PKT TP ONE (11:02)
--- NOTE | 2017-05-09 11:02 | CP.PCM.PN ---
Subjective - Date & Time of Evaluation Date of Evaluation: 05/09/17 Time of Evaluation: 11:01 - Subjective Subjective: Pt has had hematuria because of the UTI and pt's blood count kept dropping . The c/s is now clear, so she [facility] with a peg tube. Pt is cleared for a peg tube placement . Objective - Vital Signs/Intake and Output Vital Signs (last 24 hours): Temp Pulse Resp BP Pulse Ox 98.0 F 114 H 14 120/73 99 05/09/17 08:00 05/09/17 09:15 05/09/17 09:15 05/09/17 08:00 05/09/17 09:15 Intake and Output: 05/09/17 05/09/17 06:59 18:59 Intake Total 4653 Output Total 3700 Balance 953 - Medications Medications: Current Medications Acetaminophen (Tylenol 650 Mg Supp) 650 mg AL Q4 PRN PRN Reason: Fever >100.4 F Last Admin: 05/08/17 00:10 Dose: 650 mg Albuterol/Ipratropium (Duoneb 3 Mg/0.5 Mg (3 Ml) Ud) 3 ml INH RQ6 PRN PRN Reason: Shortness of Breath Last Admin: 05/08/17 19:40 Dose: 3 ml Ascorbic Acid (Vitamin C 250 Mg Tab) 250 mg PO DAILY [facility] Last Admin: 05/09/17 09:19 Dose: 250 mg Cholestyramine Resin (Questran) 4 gm PO DAILY [facility] Last Admin: 05/09/17 09:18 Dose: 4 gm Collagenase (Santyl) 1 applic TOP Q12 [facility] Last Admin: 05/09/17 09:39 Dose: 1 applic Diltiazem HCl (Cardizem) 30 mg NG TID [facility] Last Admin: 05/09/17 09:15 Dose: 30 mg Dimethicone (Proshield Plus Skin Protectant) 1 applic TOP Q8 [facility] Last Admin: 05/09/17 09:38 Dose: 1 applic Hydrocortisone Sodium Succinate (Solu-Cortef) 10 mg IV DAILY [facility] Last Admin: 05/09/17 09:18 Dose: 10 mg Tobramycin Sulfate 60 mg/ (Sodium Chloride) 51.5 mls @ 50.739 mls/hr IV Q24H [facility] Last Admin: 05/08/17 16:53 Dose: 50.739 mls/hr Lacosamide 100 mg/ Sodium (Chloride) 110 mls @ 110 mls/hr IVPB Q12@0800,2000 [facility] Last Admin: 05/09/17 09:12 Dose: 110 mls/hr Sodium Chloride (Sodium Chloride 0.9%) 1,000 mls @ 999 mls/hr IV .Q1H1M [facility] Stop: 05/09/17 13:05 Last Admin: 05/08/17 13:37 Dose: 999 mls/hr Dextrose/Sodium Chloride (Dextrose 5%/0.9% Ns 1000 Ml) 1,000 mls @ 80 mls/hr IV .[id number] [facility] Stop: 05/09/17 13:15 Last Admin: 05/09/17 06:18 Dose: 80 mls/hr Ceftazidime/Avibactam 2.5 gm/ (Sodium Chloride) 100 mls @ 100 mls/hr IVPB Q8H [facility] PRN Reason: Protocol Last Admin: 05/09/17 09:13 Dose: 100 mls/hr Lactobacillus Acidophilus (Bacid Acidophilus) 1 cap PO BID [facility] Last Admin: 05/09/17 09:46 Dose: 1 cap Magnesium Oxide (Mag-Ox) 400 mg PO BID [facility] Last Admin: 05/09/17 09:17 Dose: 400 mg Pantoprazole Sodium (Protonix Susp) 40 mg NG DAILY [facility] Last Admin: 05/09/17 09:15 Dose: 40 mg Potassium Chloride (Potassium Chloride Oral Soln) 40 meq NG BID [facility] Last Admin: 05/09/17 09:45 Dose: 40 meq Thiamine HCl (Vitamin B1 Tab) 100 mg PO DAILY [facility] Last Admin: 05/09/17 09:15 Dose: 100 mg Zinc Sulfate (Zinc Sulfate 220 Mg Cap) 220 mg PO DAILY [facility] Last Admin: 05/09/17 09:15 Dose: 220 mg - Labs Labs: 05/09/17 09:30 05/09/17 04:30 PT 14.2 Seconds (9.8-13.1) H 05/08/17 10:34 INR 1.3 (0.9-1.2) H 05/08/17 10:34 APTT 23.5 Seconds (25.6-37.1) L 05/08/17 10:34
[2017-05-09 12:35] LABS: BLOOD UREA NITROGEN 16 mg/dl (7-17); CALCIUM 8.7 mg/dL (8.4-10.2); CARBON DIOXIDE 22 mmol/L (22-30); CHLORIDE 112 mmol/L (98-107); GFR AFRICAN-AMERICAN > 60; GLUCOSE,RANDOM 98 mg/dL (65-105); POTASSIUM 3.9 MMOL/L (3.6-5.0); SODIUM 143 mmol/l (132-148)
[2017-05-09] MEDS ORDERED: Sodium Chloride 0.9% 250 ML IV ONE ×2 (13:20→14:07)
[2017-05-09] MEDS ORDERED: Etomidate 20 mg/10ml Inj IV ONE (13:35)
[2017-05-09] MEDS ORDERED: Propofol 10 mg/ml Inj (20 ML) ONE (13:35)
[2017-05-09] MEDS ORDERED: Lidocaine 2% MPF (5 ml) Inj ONE (13:36)
--- NOTE | 2017-05-09 17:27 | CP.PCM.PN ---
Subjective - Date & Time of Evaluation Date of Evaluation: 05/09/17 Time of Evaluation: 10:00 - Subjective Subjective: F/U Respiratory failure. Pt awake , follows with eyes verbal stimulation Objective - Vital Signs/Intake and Output Vital Signs (last 24 hours): Temp Pulse Resp BP Pulse Ox 100.4 F H 118 H 141 H 118/71 100 05/09/17 15:15 05/09/17 16:52 05/09/17 16:52 05/09/17 16:52 05/09/17 16:52 Intake and Output: 05/09/17 05/09/17 06:59 18:59 Intake Total 4653 50 Output Total 3700 200 Balance 953 -150 - Medications Medications: Current Medications Acetaminophen (Tylenol 650 Mg Supp) 650 mg PA Q4 PRN PRN Reason: Fever >100.4 F Last Admin: 05/08/17 00:10 Dose: 650 mg Albuterol/Ipratropium (Duoneb 3 Mg/0.5 Mg (3 Ml) Ud) 3 ml INH RQ6 PRN PRN Reason: Shortness of Breath Last Admin: 05/08/17 19:40 Dose: 3 ml Ascorbic Acid (Vitamin C 250 Mg Tab) 250 mg PO DAILY [facility] Last Admin: 05/09/17 09:19 Dose: 250 mg Cholestyramine Resin (Questran) 4 gm PO DAILY [facility] Last Admin: 05/09/17 09:18 Dose: 4 gm Collagenase (Santyl) 1 applic TOP Q12 [facility] Last Admin: 05/09/17 09:39 Dose: 1 applic Diltiazem HCl (Cardizem) 30 mg NG TID [facility] Last Admin: 05/09/17 16:52 Dose: 30 mg Dimethicone (Proshield Plus Skin Protectant) 1 applic TOP Q8 [facility] Last Admin: 05/09/17 09:38 Dose: 1 applic Hydrocortisone Sodium Succinate (Solu-Cortef) 10 mg IV DAILY [facility] Last Admin: 05/09/17 09:18 Dose: 10 mg Tobramycin Sulfate 60 mg/ (Sodium Chloride) 51.5 mls @ 50.739 mls/hr IV Q24H [facility] Last Admin: 05/08/17 16:53 Dose: 50.739 mls/hr Lacosamide 100 mg/ Sodium (Chloride) 110 mls @ 110 mls/hr IVPB Q12@0800,2000 [facility] Last Admin: 05/09/17 09:12 Dose: 110 mls/hr Ceftazidime/Avibactam 2.5 gm/ (Sodium Chloride) 100 mls @ 100 mls/hr IVPB Q8H [facility] PRN Reason: Protocol Last Admin: 05/09/17 16:53 Dose: 100 mls/hr Lactobacillus Acidophilus (Bacid Acidophilus) 1 cap PO BID [facility] Last Admin: 05/09/17 16:53 Dose: 1 cap Magnesium Oxide (Mag-Ox) 400 mg PO BID [facility] Last Admin: 05/09/17 16:54 Dose: 400 mg Pantoprazole Sodium (Protonix Susp) 40 mg NG DAILY [facility] Last Admin: 05/09/17 09:15 Dose: 40 mg Potassium Chloride (Potassium Chloride Oral Soln) 40 meq NG BID [facility] Last Admin: 05/09/17 16:53 Dose: 40 meq Thiamine HCl (Vitamin B1 Tab) 100 mg PO DAILY [facility] Last Admin: 05/09/17 09:15 Dose: 100 mg Zinc Sulfate (Zinc Sulfate 220 Mg Cap) 220 mg PO DAILY [facility] Last Admin: 05/09/17 09:15 Dose: 220 mg - Labs Labs: 05/09/17 09:30 05/09/17 12:05 PT 14.2 Seconds (9.8-13.1) H 05/08/17 10:34 INR 1.3 (0.9-1.2) H 05/08/17 10:34 APTT 23.5 Seconds (25.6-37.1) L 05/08/17 10:34 - Constitutional Appears: No Acute Distress, Chronically Ill - Head Exam Head Exam: NORMAL INSPECTION - Eye Exam Eye Exam: PERRL - ENT Exam Additional comments: Intubated - Neck Exam Neck Exam: Normal Inspection - Respiratory Exam Respiratory Exam: Rhonchi (scattered) - Cardiovascular Exam Cardiovascular Exam: REGULAR RHYTHM - GI/Abdominal Exam GI & Abdominal Exam: Soft, Normal Bowel Sounds - Extremities Exam Extremities Exam: Pedal Edema Additional comments: L heel and R lateral ankle DTI, MSAD posterior thigh. - Back Exam Additional comments: MSAD buttock, sacrum, R flank. - Neurological Exam Neurological Exam: Awake Additional comments: follows simple commands , like weak attempt to squeeze hand , generalized weakness - Skin Skin Exam: Warm Assessment and Plan (1) Acute respiratory failure Status: Acute (2) Status post tracheostomy Status: Acute (3) Shock Status: Deleted (4) Pneumonia Status: Acute (5) Acute renal failure (ARF) Status: Acute (6) Anemia Status: Acute (7) Hematuria, gross Status: Deleted (8) Thrombocytopenia Status: Resolved (9) History of pulmonary embolus (PE) Status: Acute (10) Pancolitis Status: Deleted - Assessment and Plan (Free Text) Plan: For Peg tube today, cleared by hematology for Peg tube placement, MSAD buttock , Sacrum , R Flank improved , Cardiology consult for cardiac clearance for Colostomy
[2017-05-09] MEDS ORDERED: Albuterol-Ipratrop 3 mg / 0.5 (3 ml) UD INH PRN (17:48)
--- NOTE | 2017-05-09 18:04 | CP.PCM.PN ---
Subjective - Date & Time of Evaluation Date of Evaluation: 05/09/17 Time of Evaluation: 18:02 - Subjective Subjective: Patient seen with the help of ICU nurse. Marked improvement in the buttock/ sacral wound area. The control of maceration and bowel is the ultimate impact on the healing. I agree with a diverting colostomy at this point as this will be a major step again in the direction of final healing. PEG has been applied the right flank eschars are improving and I may only need to perform limited sharps debridement. Objective - Vital Signs/Intake and Output Vital Signs (last 24 hours): Temp Pulse Resp BP Pulse Ox 100.4 F H 118 H 141 H 118/71 100 05/09/17 15:15 05/09/17 16:52 05/09/17 16:52 05/09/17 16:52 05/09/17 16:52 Intake and Output: 05/09/17 05/09/17 06:59 18:59 Intake Total 4653 50 Output Total 3700 200 Balance 953 -150 - Medications Medications: Current Medications Acetaminophen (Tylenol 650 Mg Supp) 650 mg [place] Q4 PRN PRN Reason: Fever >100.4 F Last Admin: 05/08/17 00:10 Dose: 650 mg Albuterol/Ipratropium (Duoneb 3 Mg/0.5 Mg (3 Ml) Ud) 3 ml INH RQ6 PRN PRN Reason: Shortness of Breath Last Admin: 05/08/17 19:40 Dose: 3 ml Albuterol/Ipratropium (Duoneb 3 Mg/0.5 Mg (3 Ml) Ud) 3 ml INH RQ4 PRN PRN Reason: Shortness of Breath Ascorbic Acid (Vitamin C 250 Mg Tab) 250 mg PO DAILY [facility] Last Admin: 05/09/17 09:19 Dose: 250 mg Cholestyramine Resin (Questran) 4 gm PO DAILY [facility] Last Admin: 05/09/17 09:18 Dose: 4 gm Collagenase (Santyl) 1 applic TOP Q12 [facility] Last Admin: 05/09/17 09:39 Dose: 1 applic Diltiazem HCl (Cardizem) 30 mg NG TID [facility] Last Admin: 05/09/17 16:52 Dose: 30 mg Dimethicone (Proshield Plus Skin Protectant) 1 applic TOP Q8 [facility] Last Admin: 05/09/17 09:38 Dose: 1 applic Hydrocortisone Sodium Succinate (Solu-Cortef) 10 mg IV DAILY [facility] Last Admin: 05/09/17 09:18 Dose: 10 mg Tobramycin Sulfate 60 mg/ (Sodium Chloride) 51.5 mls @ 50.739 mls/hr IV Q24H [facility] Last Admin: 05/08/17 16:53 Dose: 50.739 mls/hr Lacosamide 100 mg/ Sodium (Chloride) 110 mls @ 110 mls/hr IVPB Q12@0800,2000 [facility] Last Admin: 05/09/17 09:12 Dose: 110 mls/hr Ceftazidime/Avibactam 2.5 gm/ (Sodium Chloride) 100 mls @ 100 mls/hr IVPB Q8H [facility] PRN Reason: Protocol Last Admin: 05/09/17 16:53 Dose: 100 mls/hr Cefepime HCl 1 gm/ Sodium (Chloride) 100 mls @ 100 mls/hr IVPB Q12 [facility] PRN Reason: Protocol Vancomycin HCl 1,000 mg/ (Sodium Chloride) 250 mls @ 250 mls/hr IVPB Q12H [facility] PRN Reason: Protocol Lactobacillus Acidophilus (Bacid Acidophilus) 1 cap PO BID [facility] Last Admin: 05/09/17 16:53 Dose: 1 cap Magnesium Oxide (Mag-Ox) 400 mg PO BID [facility] Last Admin: 05/09/17 16:54 Dose: 400 mg Pantoprazole Sodium (Protonix Susp) 40 mg NG DAILY [facility] Last Admin: 05/09/17 09:15 Dose: 40 mg Potassium Chloride (Potassium Chloride Oral Soln) 40 meq NG BID [facility] Last Admin: 05/09/17 16:53 Dose: 40 meq Thiamine HCl (Vitamin B1 Tab) 100 mg PO DAILY [facility] Last Admin: 05/09/17 09:15 Dose: 100 mg Zinc Sulfate (Zinc Sulfate 220 Mg Cap) 220 mg PO DAILY [facility] Last Admin: 05/09/17 09:15 Dose: 220 mg - Labs Labs: 05/09/17 09:30 05/09/17 12:05 PT 14.2 Seconds (9.8-13.1) H 05/08/17 10:34 INR 1.3 (0.9-1.2) H 05/08/17 10:34 APTT 23.5 Seconds (25.6-37.1) L 12/10/17 10:34
--- NOTE | 2017-05-09 18:16 | CP.CCUPN ---
CCU Subjective - Physician Review Events Since Last Encounter (Free Text): 05/09/17 18:41 The patient was Seen/interviewed and examined by me at the bedside Medical records reviewed and Management issues were discussed and formulated with the house staff. 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 Pt Afebrile NSR on the monitor CCU Objective - Vital Signs / Intake & Output Vital Signs (Last 4 hours): Vital Signs Temp Pulse Resp BP Pulse Ox 05/09/17 18:00 114 H 15 144/91 H 100 05/09/17 16:52 118 H 141 H 118/71 100 05/09/17 15:30 127 H 16 126/79 98 05/09/17 15:15 100.4 F H 127 H 16 126/71 98 05/09/17 15:00 127 H 16 144/84 97 05/09/17 14:45 100.4 F H 130 H 16 129/75 97 05/09/17 14:30 129 H 16 122/70 98 Intake and Output (Last 8hrs): Intake & Output 05/09/17 05/09/17 05/09/17 06:59 14:59 22:59 Intake Total 1767 50 Output Total 2500 200 Balance -733 50 -200 Intake: IV 1170 50 Intake, Piggyback 210 Tube Feeding 237 Free Water Flush 150 Output: Urine 2500 200 Urethral ([place]) 2500 - Physical Exam Head: Positive for: Atraumatic, Normocephalic. Negative for: Tenderness, Contusion Pupils: Positive for: PERRL. Negative for: Sluggish, Non-Reactive Extroacular Muscles: Negative for: Gaze Palsy Conjunctiva: Positive for: Normal. Negative for: Injected, Icteric Mouth: Positive for: Dry (bloody) Neck: Negative for: JVD Respiratory/Chest: Positive for: Decreased Breath Sounds, Rhonchi. Negative for : Accessory Muscle Use, Wheezes Cardiovascular: Positive for: Tachycardic. Negative for: Murmurs, Rub Abdomen: Positive for: Distention, Normal Bowel Sounds. Negative for: Tenderness Upper Extremity: Positive for: Edema Lower Extremity: Positive for: Edema. Negative for: CALF TENDERNESS, NORMAL PULSES, Cyanosis Neurological: Positive for: Other (on ventilator) Skin: Positive for: Warm, Dry. Negative for: Rashes Psychiatric: Positive for: Alert, Normal Affect - Medications Active Medications: Active Medications Generic Name Dose Route Start Last Admin Trade Name Freq PRN Reason Stop Dose Admin Acetaminophen 650 mg 05/06/17 20:47 05/08/17 00:10 Tylenol 650 Mg Supp OR 650 mg Q4 PRN Administration Fever >100.4 F Albuterol/Ipratropium 3 ml 05/08/17 17:13 05/08/17 19:40 Duoneb 3 Mg/0.5 Mg (3 Ml) Ud INH 3 ml RQ6 PRN Administration Shortness of Breath Albuterol/Ipratropium 3 ml 05/09/17 17:48 Duoneb 3 Mg/0.5 Mg (3 Ml) Ud INH RQ4 PRN Shortness of Breath Ascorbic Acid 250 mg 05/03/17 14:30 05/09/17 09:19 Vitamin C 250 Mg Tab PO 250 mg DAILY [facility] Administration Cholestyramine Resin 4 gm 05/02/17 14:15 05/09/17 09:18 Questran PO 4 gm DAILY [facility] Administration Collagenase 1 applic 04/25/17 21:00 05/09/17 09:39 Santyl TOP 1 applic Q12 [facility] Administration Diltiazem HCl 30 mg 05/06/17 13:00 05/09/17 16:52 Cardizem NG 30 mg TID [facility] Administration Dimethicone 1 applic 04/25/17 17:00 05/09/17 09:38 Proshield Plus Skin Protectant TOP 1 applic Q8 [facility] Administration Hydrocortisone Sodium Succinate 10 mg 05/05/17 09:00 05/09/17 09:18 Solu-Cortef IV 10 mg DAILY [facility] Administration Tobramycin Sulfate 60 mg/ 51.5 mls @ 50.739 mls/hr 04/26/17 11:00 05/08/17 16 :53 Sodium Chloride IV 50.739 mls/hr Q24H [facility] Administration Lacosamide 100 mg/ Sodium 110 mls @ 110 mls/hr 05/07/17 08:00 05/09/17 09:12 Chloride IVPB 110 mls/hr Q12@0800,2000 [facility] Administration Ceftazidime/Avibactam 2.5 gm/ 100 mls @ 100 mls/hr 05/08/17 17:30 05/09/17 16 :53 Sodium Chloride IVPB 100 mls/hr Q8H [facility] Administration Protocol Cefepime HCl 1 gm/ Sodium 100 mls @ 100 mls/hr 05/09/17 21:00 Chloride IVPB Q12 [facility] Protocol Vancomycin HCl 1,000 mg/ 250 mls @ 250 mls/hr 05/09/17 17:45 Sodium Chloride IVPB Q12H [facility] Protocol Lactobacillus Acidophilus 1 cap 05/02/17 17:00 05/09/17 16:53 Bacid Acidophilus PO 1 cap BID [facility] Administration Magnesium Oxide 400 mg 05/07/17 09:15 05/09/17 16:54 Mag-Ox PO 400 mg BID [facility] Administration Pantoprazole Sodium 40 mg 04/14/17 10:30 05/09/17 09:15 Protonix Susp NG 40 mg DAILY [facility] Administration Potassium Chloride 40 meq 05/07/17 07:44 05/09/17 16:53 Potassium Chloride Oral Soln NG 40 meq BID [facility] Administration Thiamine HCl 100 mg 05/05/17 09:00 05/09/17 09:15 Vitamin B1 Tab PO 100 mg DAILY [facility] Administration Zinc Sulfate 220 mg 05/03/17 14:30 05/09/17 09:15 Zinc Sulfate 220 Mg Cap PO 220 mg DAILY [facility] Administration - Patient Studies Lab Studies: Microbiology Studies 05/04/17 Unknown Blood Culture - Final Blood NO GROWTH AFTER 5 DAYS Gram Stain - Final TEST NOT PERFORMED Lab Studies 05/09/17 05/09/17 05/09/17 Range/Units 12:05 09:30 04:30 WBC 12.6 H (4.8-10.8) K/uL RBC 3.28 L (3.80-5.20) Mil/uL Hgb 9.4 L (12.0-16.0) g/dL Hct 28.0 L (34.0-47.0) % MCV 85.2 D (81.0-99.0) fl MCH 28.7 (27.0-31.0) pg MCHC 33.7 (33.0-37.0) g/dL RDW 17.0 H (11.5-14.5) % Plt Count 169 (130-400) K/uL MPV (7.2-11.7) fl Neut % (Auto) (50.0-75.0) % Lymph % (Auto) (20.0-40.0) % Lake % (Auto) (0.0-10.0) % Eos % (Auto) (0.0-4.0) % Baso % (Auto) (0.0-2.0) % Neut # (1.8-7.0) K/uL Lymph # (1.0-4.3) K/uL Lake # (0.0-0.8) K/uL Eos # (0.0-0.7) K/uL Baso # (0.0-0.2) K/uL Sodium 143 146 (132-148) mmol/l Potassium 3.9 3.3 L (3.6-5.0) MMOL/L Chloride 112 H 112 H (98-107) mmol/L Carbon Dioxide 22 22 (22-30) mmol/L Anion Gap 13 15 (10-20) BUN 16 17 (7-17) mg/dl Creatinine 0.9 0.9 (0.7-1.2) mg/dl Est GFR ( Amer) > 60 > 60 Est GFR (Non-Af Amer) > 60 > 60 Random Glucose 98 89 (65-105) mg/dL Calcium 8.7 8.5 (8.4-10.2) mg/dL Total Bilirubin 0.6 (0.2-1.3) mg/dl AST 30 (14-36) U/L ALT 56 H (9-52) U/L Alkaline Phosphatase 246 H (38-126) U/L Total Protein 5.7 L (6.3-8.2) G/DL Albumin 2.7 L (3.5-5.0) g/dL Globulin 3.0 (2.2-3.9) gm/dL Albumin/Globulin Ratio 0.9 L (1.0-2.1) Urine Color (YELLOW) Urine Clarity (Clear) Urine pH (5.0-8.0) Ur Specific [place] (1.003-1.030) Urine Protein (NEGATIVE) mg/dL Urine Glucose (UA) (Normal) mg/dL Urine Ketones (NEGATIVE) mg/dL Urine Blood (NEGATIVE) Urine Nitrate (NEGATIVE) Urine Bilirubin (NEGATIVE) Urine Urobilinogen (0.2-1.0) mg/dL Ur Leukocyte Esterase (Negative) Nick/uL Urine RBC (Auto) (0-3) /hpf Urine WBC Clumps (Auto) (NONE) /hpf Urine Microscopic WBC (0-5) /hpf Calcium Oxalate Crystal (<OCC) /hpf Urine Bacteria (<OCC) Urine Yeast (Budding) (NEGATIVE) /hpf Blood Type Antibody Screen Crossmatch BBK History Checked 05/09/17 05/08/17 05/08/17 Range/Units 04:30 20:00 10:34 WBC 10.2 (4.8-10.8) K/uL RBC 2.75 L (3.80-5.20) Mil/uL Hgb 8.0 L (12.0-16.0) g/dL Hct 24.3 L (34.0-47.0) % MCV 88.4 (81.0-99.0) fl MCH 29.1 (27.0-31.0) pg MCHC 33.0 (33.0-37.0) g/dL RDW 17.4 H (11.5-14.5) % Plt Count 139 D (130-400) K/uL MPV 7.1 L (7.2-11.7) fl Neut % (Auto) 86.6 H (50.0-75.0) % Lymph % (Auto) 3.0 L (20.0-40.0) % Lake % (Auto) 9.7 (0.0-10.0) % Eos % (Auto) 0.4 (0.0-4.0) % Baso % (Auto) 0.3 (0.0-2.0) % Neut # 8.9 H (1.8-7.0) K/uL Lymph # 0.3 L (1.0-4.3) K/uL [place] # 1.0 H (0.0-0.8) K/uL Eos # 0.0 (0.0-0.7) K/uL Baso # 0.0 (0.0-0.2) K/uL Sodium (132-148) mmol/l Potassium (3.6-5.0) MMOL/L Chloride (98-107) mmol/L Carbon Dioxide (22-30) mmol/L Anion Gap (10-20) BUN (7-17) mg/dl Creatinine (0.7-1.2) mg/dl Est GFR ( Amer) Est GFR (Non-Af Amer) Random Glucose (65-105) mg/dL Calcium (8.4-10.2) mg/dL Total Bilirubin (0.2-1.3) mg/dl AST (14-36) U/L ALT (9-52) U/L Alkaline Phosphatase (38-126) U/L Total Protein (6.3-8.2) G/DL Albumin (3.5-5.0) g/dL Globulin (2.2-3.9) gm/dL Albumin/Globulin Ratio (1.0-2.1) Urine Color Light red (YELLOW) Urine Clarity Turbid (Clear) Urine pH 6.0 (5.0-8.0) Ur Specific [place] 1.010 (1.003-1.030) Urine Protein 30 (NEGATIVE) mg/dL Urine Glucose (UA) 50 (Normal) mg/dL Urine Ketones Negative (NEGATIVE) mg/dL Urine Blood Large (NEGATIVE) Urine Nitrate Positive H (NEGATIVE) Urine Bilirubin Negative (NEGATIVE) Urine Urobilinogen 0.2-1.0 (0.2-1.0) mg/dL Ur Leukocyte Esterase Large (Negative) Nick/uL Urine RBC (Auto) 948 H (0-3) /hpf Urine WBC Clumps (Auto) Many H (NONE) /hpf Urine Microscopic WBC 242 H (0-5) /hpf Calcium Oxalate Crystal Few H (<OCC) /hpf Urine Bacteria Occ H (<OCC) Urine Yeast (Budding) Mod H (NEGATIVE) /hpf Blood Type A POSITIVE Antibody Screen Negative Crossmatch See Detail BBK History Checked Patient has bt Laboratory Results - last 24 hr 05/08/17 05/08/17 05/09/17 10:34 20:00 04:30 WBC 10.2 RBC 2.75 L Hgb 8.0 L Hct 24.3 L MCV 88.4 MCH 29.1 MCHC 33.0 RDW 17.4 H Plt Count 139 D MPV 7.1 L Neut % (Auto) 86.6 H Lymph % (Auto) 3.0 L Lake % (Auto) 9.7 Eos % (Auto) 0.4 Baso % (Auto) 0.3 Neut # 8.9 H Lymph # 0.3 L [place] # 1.0 H Eos # 0.0 Baso # 0.0 Sodium Potassium Chloride Carbon Dioxide Anion Gap BUN Creatinine Est GFR ( Amer) Est GFR (Non-Af Amer) Random Glucose Calcium Total Bilirubin AST ALT Alkaline Phosphatase Total Protein Albumin Globulin Albumin/Globulin Ratio Urine Color Light red Urine Clarity Turbid Urine pH 6.0 Ur Specific [place] 1.010 Urine Protein 30 Urine Glucose (UA) 50 Urine Ketones Negative Urine Blood Large Urine Nitrate Positive H Urine Bilirubin Negative Urine Urobilinogen 0.2-1.0 Ur Leukocyte Esterase Large Urine RBC (Auto) 948 H Urine WBC Clumps (Auto) Many H Urine Microscopic WBC 242 H Calcium Oxalate Crystal Few H Urine Bacteria Occ H Urine Yeast (Budding) Mod H Blood Type A POSITIVE Antibody Screen Negative Crossmatch See Detail BBK History Checked Patient has bt 05/09/17 05/09/17 05/09/17 04:30 09:30 12:05 WBC 12.6 H RBC 3.28 L Hgb 9.4 L Hct 28.0 L MCV 85.2 D MCH 28.7 MCHC 33.7 RDW 17.0 H Plt Count 169 MPV Neut % (Auto) Lymph % (Auto) Lake % (Auto) Eos % (Auto) Baso % (Auto) Neut # Lymph # [place] # Eos # Baso # Sodium 146 143 Potassium 3.3 L 3.9 Chloride 112 H 112 H Carbon Dioxide 22 22 Anion Gap 15 13 BUN 17 16 Creatinine 0.9 0.9 Est GFR ( Amer) > 60 > 60 Est GFR (Non-Af Amer) > 60 > 60 Random Glucose 89 98 Calcium 8.5 8.7 Total Bilirubin 0.6 AST 30 ALT 56 H Alkaline Phosphatase 246 H Total Protein 5.7 L Albumin 2.7 L Globulin 3.0 Albumin/Globulin Ratio 0.9 L Urine Color Urine Clarity Urine pH Ur Specific [place] Urine Protein Urine Glucose (UA) Urine Ketones Urine Blood Urine Nitrate Urine Bilirubin Urine Urobilinogen Ur Leukocyte Esterase Urine RBC (Auto) Urine WBC Clumps (Auto) Urine Microscopic WBC Calcium Oxalate Crystal Urine Bacteria Urine Yeast (Budding) Blood Type Antibody Screen Crossmatch BBK History Checked Fingerstick Blood Sugar Results: 221 Critical Care Progress Note - Nutrition Nutrition: Nutrition Category Date Time Status NPO Diet [DIET] Diets 05/08/17 Dinner Active Assessment/Plan (1) Acute respiratory failure with hypoxia Current Visit: Yes Status: Acute Comment: 51 Years old female with Acute Hypoxemic Respiratory Failure S/P Trach and PEG Continue Antibiotics WITH Vaco, Cefepime and Ceftazidime/Avibactam Continue current ICU mangements Vent weaning as tolerates Strict I&Os (2) Septic shock Current Visit: Yes Status: Acute Comment: Resolved IV Antibiotics CT scan Abdomine revealed Campos colitis Optimize blood pressure, hemodynamic monitoring and maintain end-organ perfusion (3) Acute renal injury due to circulatory failure Current Visit: Yes Status: Acute Comment: Acute kidney injury likely multifactorial due to circulatory failure and septic shock Improved renal function [place] MAP 65-75 (4) Altered mental status Current Visit: Yes Status: Acute Priority: High (5) Anemia Current Visit: Yes Status: Acute Priority: High (6) Metabolic acidosis Current Visit: Yes Status: Acute Comment: Toxic/metabolic acidosis (7) Pneumonia Current Visit: Yes Status: Acute (8) Thrombocytopenia Current Visit: Yes Status: Resolved Priority: High Comment: No evidance of active bleeding
[2017-05-09] MEDS: Cefepime 1 GM in Sodium Chloride 0.9% 100 ML IVPB SCH (21:01)
[2017-05-10] MEDS: Proshield Plus GEL TOP SCH ×3 (01:02→16:25)
[2017-05-10 05:33] LABS: ABG ALLEN TEST YES; ABG MECHANICAL RATE 14; ARTERIAL BLOOD GAS HCO3 23.5 mmol/L (21-28); ARTERIAL BLOOD GAS MODE A/C; ARTERIAL BLOOD GAS O2 CAPACITY 13.6 mL/dL (16-24); ARTERIAL BLOOD GAS O2 CONTENT 13.6 ML/dL (15-23); ARTERIAL BLOOD GAS PH 7.48 (7.35-7.45); ARTERIAL BLOOD GAS PO2 161 mm/Hg (80-100); ARTERIAL BLOOD HGB O2 SAT 96.9 % (95.0-98.0); ATERIAL BLOOD GAS PEEP 5; CARBOXYHEMOGLOBIN 1.7 % (0.5-1.5); HHB -0.1 % (0.0-5.0); METHEMOGLOBIN 1.5 % (0.0-3.0)
[2017-05-10 05:36] LABS: BLOOD UREA NITROGEN 14 mg/dl (7-17); CALCIUM 8.7 mg/dL (8.4-10.2); CARBON DIOXIDE 23 mmol/L (22-30); CHLORIDE 115 mmol/L (98-107); GFR AFRICAN-AMERICAN > 60; GLUCOSE,RANDOM 107 mg/dL (65-105); POTASSIUM 2.7 MMOL/L (3.6-5.0); SODIUM 148 mmol/l (132-148)
[2017-05-10 05:37] LABS: HEMATOCRIT 27.4 % (34.0-47.0); MEAN CELL VOLUME 86.5 fl (81.0-99.0); MEAN CORPUSCULAR HEMOGLOBIN 28.4 pg (27.0-31.0); MEAN CORPUSCULAR HGB CONC 32.8 g/dL (33.0-37.0); WHITE BLOOD COUNT 10.4 K/uL (4.8-10.8)
[2017-05-10] MEDS: Lactobacillus Acidophilus 500 MU Cap PO SCH ×2 (08:37→16:23)
[2017-05-10] MEDS: Magnesium Oxide 400 mg Tab UD PO SCH ×2 (08:38→16:24)
[2017-05-10] MEDS: Santyl Collagenase OINTMENT TOP SCH ×2 (08:39→21:57)
[2017-05-10] MEDS: Pantoprazole 40 mg Susp UD NG SCH (08:39)
[2017-05-10] MEDS: Potassium Chloride 20 mEq/15 ml LIQ UD NG SCH ×2 (08:43→16:24)
[2017-05-10] MEDS: Cholestyramine 4 gm/Pkt UD PO SCH (08:44)
[2017-05-10] MEDS: Cefepime 1 GM in Sodium Chloride 0.9% 100 ML IVPB SCH ×2 (10:42→21:59)
[2017-05-10] MEDS: SODIUM CHLORIDE 0.9% IV SCH ×2 (10:44→13:39)
[2017-05-10] MEDS: TOBRAMYCIN IV SCH ×2 (10:44→13:39)
[2017-05-10] MEDS: Lacosamide 200mg/20ml 100 MG in Sodium Chloride 0.9% 100 ML IVPB SCH ×2 (10:44→20:43)
--- NOTE | 2017-05-10 10:51 | CP.PCM.PN ---
Subjective - Date & Time of Evaluation Date of Evaluation: 05/10/17 Time of Evaluation: 10:49 - Subjective Subjective: Patient is more awake and talkative and communicating much better. Family member at the bedside Still reported to have diarrhea patient remained on the respirator Objective - Vital Signs/Intake and Output Vital Signs (last 24 hours): Temp Pulse Resp BP Pulse Ox 98.3 F 96 H 17 139/83 100 05/10/17 08:00 05/10/17 08:37 05/10/17 08:37 05/10/17 08:37 05/10/17 08:37 Intake and Output: 05/10/17 05/10/17 06:59 18:59 Intake Total 850 Output Total 2250 Balance -1400 - Medications Medications: Current Medications Acetaminophen (Tylenol 650 Mg Supp) 650 mg MD Q4 PRN PRN Reason: Fever >100.4 F Last Admin: 05/08/17 00:10 Dose: 650 mg Albuterol/Ipratropium (Duoneb 3 Mg/0.5 Mg (3 Ml) Ud) 3 ml INH RQ6 PRN PRN Reason: Shortness of Breath Last Admin: 05/08/17 19:40 Dose: 3 ml Albuterol/Ipratropium (Duoneb 3 Mg/0.5 Mg (3 Ml) Ud) 3 ml INH RQ4 PRN PRN Reason: Shortness of Breath Ascorbic Acid (Vitamin C 250 Mg Tab) 250 mg PO DAILY [facility] Last Admin: 05/10/17 08:41 Dose: 250 mg Cholestyramine Resin (Questran) 4 gm PO DAILY [facility] Last Admin: 05/10/17 08:44 Dose: 4 gm Collagenase (Santyl) 1 applic TOP Q12 [facility] Last Admin: 05/10/17 08:39 Dose: 1 applic Diltiazem HCl (Cardizem) 30 mg NG TID [facility] Last Admin: 05/10/17 08:37 Dose: 30 mg Dimethicone (Proshield Plus Skin Protectant) 1 applic TOP Q8 [facility] Last Admin: 05/10/17 08:42 Dose: Not Given Hydrocortisone Sodium Succinate (Solu-Cortef) 10 mg IV DAILY [facility] Last Admin: 05/10/17 08:39 Dose: 10 mg Tobramycin Sulfate 60 mg/ (Sodium Chloride) 51.5 mls @ 50.739 mls/hr IV Q24H [facility] Last Admin: 05/10/17 10:44 Dose: 50.739 mls/hr Lacosamide 100 mg/ Sodium (Chloride) 110 mls @ 110 mls/hr IVPB Q12@0800,2000 [facility] Last Admin: 05/10/17 10:44 Dose: 110 mls/hr Ceftazidime/Avibactam 2.5 gm/ (Sodium Chloride) 100 mls @ 100 mls/hr IVPB Q8H [facility] PRN Reason: Protocol Last Admin: 05/10/17 10:41 Dose: 100 mls/hr Cefepime HCl 1 gm/ Sodium (Chloride) 100 mls @ 100 mls/hr IVPB Q12 [facility] PRN Reason: Protocol Last Admin: 05/10/17 10:42 Dose: 100 mls/hr Vancomycin HCl 1 gm/ Sodium (Chloride) 250 mls @ 250 mls/hr IVPB Q12H [facility] PRN Reason: Protocol Last Admin: 05/10/17 08:40 Dose: 250 mls/hr Potassium Chloride (Potassium Cl 10meq/50ml Sterile Water) 50 mls @ 50 mls/hr IVPB Q1 [facility] Stop: 05/10/17 13:59 Magnesium Sulfate 2 gm/ Sodium (Chloride) 104 mls @ 104 mls/hr IVPB ONCE ONE PRN Reason: 2 GM/HR Stop: 05/10/17 11:46 Lactobacillus Acidophilus (Bacid Acidophilus) 1 cap PO BID [facility] Last Admin: 05/10/17 08:37 Dose: 1 cap Magnesium Oxide (Mag-Ox) 400 mg PO BID [facility] Last Admin: 05/10/17 08:38 Dose: 400 mg Pantoprazole Sodium (Protonix Susp) 40 mg NG DAILY [facility] Last Admin: 05/10/17 08:39 Dose: 40 mg Potassium Chloride (Potassium Chloride Oral Soln) 40 meq NG BID [facility] Last Admin: 05/10/17 08:43 Dose: 40 meq Thiamine HCl (Vitamin B1 Tab) 100 mg PO DAILY [facility] Last Admin: 05/10/17 08:41 Dose: 100 mg Zinc Sulfate (Zinc Sulfate 220 Mg Cap) 220 mg PO DAILY [facility] Last Admin: 05/10/17 08:41 Dose: 220 mg - Labs Labs: 05/10/17 04:20 05/10/17 04:20 PT 14.2 Seconds (9.8-13.1) H 12/10/17 10:34 INR 1.3 (0.9-1.2) H 05/08/17 10:34 APTT 23.5 Seconds (25.6-37.1) L 05/08/17 10:34 - Constitutional Appears: No Acute Distress - ENT Exam ENT Exam: Mucous Membranes Moist - Neck Exam Neck Exam: absent: Lymphadenopathy - Respiratory Exam Respiratory Exam: NORMAL BREATHING PATTERN. absent: Chest Wall Tenderness - Cardiovascular Exam Cardiovascular Exam: REGULAR RHYTHM. absent: JVD, Rubs - GI/Abdominal Exam GI & Abdominal Exam: Soft, Normal Bowel Sounds - Extremities Exam Extremities Exam: absent: Calf Tenderness - Back Exam Back Exam: absent: CVA tenderness (L), CVA tenderness (R) - Neurological Exam Neurological Exam: Awake - Psychiatric Exam Additional comments: patient much better communicating today - Skin Skin Exam: absent: Cyanosis Assessment and Plan (1) Acute renal injury due to circulatory failure Assessment & Plan: Hypokalemia serum potassium 2.7 despite 40 Meq bid potassium chloride twice a day by mouth Therefore we will give stat potassium chloride 10 mEq 3 . #2 hypomagnesemia probably this is a cause of hypokalemia from the diarrhea and we need to correct the hypomagnesemia and in order.to correct the hypokalemia. Therefore we will give stat magnesium 2GM intravenous. #3 status post acute renal failure which has been recovered. #4 status post septic shock In addition to the past history which she had ovarian cancer and surgery among other things. Status: Acute (2) Altered mental status Status: Acute (3) GI bleed Status: Acute
[2017-05-10] MEDS ORDERED: Magnesium Sulfate 2 gm/50 ml 2 GM/50 ML BAG IV ONE (11:00)
--- NOTE | 2017-05-10 11:48 | CP.PCM.PN ---
Subjective - Date & Time of Evaluation Date of Evaluation: 05/10/17 Time of Evaluation: 11:47 - Subjective Subjective: s/p PEG in ICU pending Echo Objective - Vital Signs/Intake and Output Vital Signs (last 24 hours): Temp Pulse Resp BP Pulse Ox 98.3 F 96 H 15 141/90 100 05/10/17 08:00 05/10/17 10:00 05/10/17 10:00 05/10/17 10:00 05/10/17 10:00 Intake and Output: 05/10/17 05/10/17 06:59 18:59 Intake Total 850 270 Output Total 2250 Balance -1400 270 - Medications Medications: Current Medications Acetaminophen (Tylenol 650 Mg Supp) 650 mg MN Q4 PRN PRN Reason: Fever >100.4 F Last Admin: 05/08/17 00:10 Dose: 650 mg Albuterol/Ipratropium (Duoneb 3 Mg/0.5 Mg (3 Ml) Ud) 3 ml INH RQ6 PRN PRN Reason: Shortness of Breath Last Admin: 05/08/17 19:40 Dose: 3 ml Albuterol/Ipratropium (Duoneb 3 Mg/0.5 Mg (3 Ml) Ud) 3 ml INH RQ4 PRN PRN Reason: Shortness of Breath Ascorbic Acid (Vitamin C 250 Mg Tab) 250 mg PO DAILY [facility] Last Admin: 05/10/17 08:41 Dose: 250 mg Cholestyramine Resin (Questran) 4 gm PO DAILY [facility] Last Admin: 05/10/17 08:44 Dose: 4 gm Collagenase (Santyl) 1 applic TOP Q12 [facility] Last Admin: 05/10/17 08:39 Dose: 1 applic Diltiazem HCl (Cardizem) 30 mg NG TID [facility] Last Admin: 05/10/17 08:37 Dose: 30 mg Dimethicone (Proshield Plus Skin Protectant) 1 applic TOP Q8 [facility] Last Admin: 05/10/17 08:42 Dose: Not Given Hydrocortisone Sodium Succinate (Solu-Cortef) 10 mg IV DAILY [facility] Last Admin: 05/10/17 08:39 Dose: 10 mg Tobramycin Sulfate 60 mg/ (Sodium Chloride) 51.5 mls @ 50.739 mls/hr IV Q24H [facility] Last Admin: 05/10/17 10:44 Dose: 50.739 mls/hr Lacosamide 100 mg/ Sodium (Chloride) 110 mls @ 110 mls/hr IVPB Q12@0800,2000 [facility] Last Admin: 05/10/17 10:44 Dose: 110 mls/hr Ceftazidime/Avibactam 2.5 gm/ (Sodium Chloride) 100 mls @ 100 mls/hr IVPB Q8H [facility] PRN Reason: Protocol Last Admin: 05/10/17 10:41 Dose: 100 mls/hr Cefepime HCl 1 gm/ Sodium (Chloride) 100 mls @ 100 mls/hr IVPB Q12 [facility] PRN Reason: Protocol Last Admin: 05/10/17 10:42 Dose: 100 mls/hr Vancomycin HCl 1 gm/ Sodium (Chloride) 250 mls @ 250 mls/hr IVPB Q12H [facility] PRN Reason: Protocol Last Admin: 05/10/17 08:40 Dose: 250 mls/hr Potassium Chloride (Potassium Cl 10meq/50ml Sterile Water) 50 mls @ 50 mls/hr IVPB Q1 [facility] Stop: 05/10/17 13:59 Magnesium Sulfate (Magnesium Sulfate 2 Gm/50 Ml Water) 2 gm in 50 mls @ 50 mls/ hr IV ONCE ONE PRN Reason: 2 GM/HR Stop: 05/10/17 11:59 Lactobacillus Acidophilus (Bacid Acidophilus) 1 cap PO BID [facility] Last Admin: 05/10/17 08:37 Dose: 1 cap Magnesium Oxide (Mag-Ox) 400 mg PO BID [facility] Last Admin: 05/10/17 08:38 Dose: 400 mg Pantoprazole Sodium (Protonix Susp) 40 mg NG DAILY [facility] Last Admin: 05/10/17 08:39 Dose: 40 mg Potassium Chloride (Potassium Chloride Oral Soln) 40 meq NG BID [facility] Last Admin: 05/10/17 08:43 Dose: 40 meq Thiamine HCl (Vitamin B1 Tab) 100 mg PO DAILY [facility] Last Admin: 05/10/17 08:41 Dose: 100 mg Zinc Sulfate (Zinc Sulfate 220 Mg Cap) 220 mg PO DAILY [facility] Last Admin: 05/10/17 08:41 Dose: 220 mg - Labs Labs: 05/10/17 04:20 05/10/17 04:20 PT 14.2 Seconds (9.8-13.1) H 05/08/17 10:34 INR 1.3 (0.9-1.2) H 05/08/17 10:34 APTT 23.5 Seconds (25.6-37.1) L 05/08/17 10:34 - Constitutional Appears: Well - Head Exam Head Exam: NORMAL INSPECTION, NORMOCEPHALIC Additional comments: Trach - Eye Exam Eye Exam: EOMI, Normal appearance, PERRL Pupil Exam: NORMAL ACCOMODATION, PERRL - ENT Exam ENT Exam: Mucous Membranes Moist, Normal Exam - Neck Exam Neck Exam: Full ROM, Normal Inspection. absent: Lymphadenopathy - Respiratory Exam Respiratory Exam: Clear to Ausculation Bilateral, Rales, NORMAL BREATHING PATTERN - Cardiovascular Exam Cardiovascular Exam: REGULAR RHYTHM, +S1, +S2, Murmur - GI/Abdominal Exam GI & Abdominal Exam: Soft, Normal Bowel Sounds. absent: Tenderness - Extremities Exam Extremities Exam: Full ROM, Normal Capillary Refill, Normal Inspection. absent : Joint Swelling, Pedal Edema - Neurological Exam Neurological Exam: Alert, Awake, CN II-XII Intact, Normal Gait, Oriented x3 - Psychiatric Exam Psychiatric exam: Normal Affect, Normal Mood - Skin Skin Exam: Dry, Intact, Normal Color, Warm Assessment and Plan (1) Hypotension Status: Acute (2) Tachycardia Status: Acute (3) Preop cardiovascular exam Status: Acute (4) Septic shock Status: Acute
[2017-05-10] MEDS: Potassium CL 10 MEQ/50 ML 50 ML IVPB SCH ×2 (12:24→13:37)
--- NOTE | 2017-05-10 12:40 | CP.CCUPN ---
CCU Subjective - Physician Review Events Since Last Encounter (Free Text): 05/10/17 The patient was Seen/interviewed and examined by me at the bedside during ICU round, Medical records reviewed and Management issues were discussed and formulated with the house staff. This morning he feels well and is hemodynamically stable, No Vasopressors Awake, comfortable, NAD Afebrile, NSR on the monitor Scheduled for EEG and ECHO today Tolerating CPAP trial, adequate saturation and good TV CCU Objective - Vital Signs / Intake & Output Vital Signs (Last 4 hours): Vital Signs Temp Pulse Resp BP Pulse Ox 05/10/17 12:00 97.6 F 100 H 19 120/42 L 100 05/10/17 10:00 96 H 15 141/90 100 Intake and Output (Last 8hrs): Intake & Output 05/09/17 05/10/17 05/10/17 22:59 06:59 14:59 Intake Total 440 670 270 Output Total 600 2250 Balance -160 -1580 270 Intake: IV 240 160 Intake, Piggyback 200 450 Tube Feeding 120 Free Water Flush 60 150 Output: Urine 600 2250 Urethral (Overton) 400 2250 Other: # Bowel Movements 1 1 - Physical Exam Head: Positive for: Atraumatic, Normocephalic. Negative for: Tenderness, Contusion Pupils: Positive for: PERRL. Negative for: Sluggish, Non-Reactive Extroacular Muscles: Negative for: Gaze Palsy Conjunctiva: Positive for: Normal. Negative for: Injected, Icteric Mouth: Positive for: Dry (bloody) Neck: Negative for: JVD Respiratory/Chest: Positive for: Decreased Breath Sounds, Rhonchi. Negative for : Accessory Muscle Use, Wheezes Cardiovascular: Positive for: Tachycardic. Negative for: Murmurs, Rub Abdomen: Positive for: Distention, Normal Bowel Sounds. Negative for: Tenderness Upper Extremity: Positive for: Edema Lower Extremity: Positive for: Edema. Negative for: CALF TENDERNESS, NORMAL PULSES, Cyanosis Neurological: Positive for: Other (on ventilator) Skin: Positive for: Warm, Dry. Negative for: Rashes Psychiatric: Positive for: Alert, Normal Affect - Medications Active Medications: Active Medications Generic Name Dose Route Start Last Admin Trade Name Freq PRN Reason Stop Dose Admin Acetaminophen 650 mg 05/06/17 20:47 05/08/17 00:10 Tylenol 650 Mg Supp MO 650 mg Q4 PRN Administration Fever >100.4 F Albuterol/Ipratropium 3 ml 05/08/17 17:13 05/08/17 19:40 Duoneb 3 Mg/0.5 Mg (3 Ml) Ud INH 3 ml RQ6 PRN Administration Shortness of Breath Albuterol/Ipratropium 3 ml 05/09/17 17:48 Duoneb 3 Mg/0.5 Mg (3 Ml) Ud INH RQ4 PRN Shortness of Breath Ascorbic Acid 250 mg 05/03/17 14:30 05/10/17 08:41 Vitamin C 250 Mg Tab PO 250 mg DAILY [facility] Administration Cholestyramine Resin 4 gm 05/02/17 14:15 05/10/17 08:44 Questran PO 4 gm DAILY [facility] Administration Collagenase 1 applic 04/25/17 21:00 05/10/17 08:39 Santyl TOP 1 applic Q12 [facility] Administration Diltiazem HCl 30 mg 05/06/17 13:00 05/10/17 08:37 Cardizem NG 30 mg TID [facility] Administration Dimethicone 1 applic 04/25/17 17:00 05/10/17 08:42 Proshield Plus Skin Protectant TOP Not Given Q8 [facility] Hydrocortisone Sodium Succinate 10 mg 05/05/17 09:00 05/10/17 08:39 Solu-Cortef IV 10 mg DAILY [facility] Administration Tobramycin Sulfate 60 mg/ 51.5 mls @ 50.739 mls/hr 04/26/17 11:00 05/10/17 10 :44 Sodium Chloride IV 50.739 mls/hr Q24H [facility] Administration Lacosamide 100 mg/ Sodium 110 mls @ 110 mls/hr 05/07/17 08:00 05/10/17 10:44 Chloride IVPB 110 mls/hr Q12@0800,2000 [facility] Administration Ceftazidime/Avibactam 2.5 gm/ 100 mls @ 100 mls/hr 05/08/17 17:30 05/10/17 10 :41 Sodium Chloride IVPB 100 mls/hr Q8H [facility] Administration Protocol Cefepime HCl 1 gm/ Sodium 100 mls @ 100 mls/hr 05/09/17 21:00 05/10/17 10:42 Chloride IVPB 100 mls/hr Q12 [facility] Administration Protocol Vancomycin HCl 1 gm/ Sodium 250 mls @ 250 mls/hr 05/10/17 09:00 05/10/17 08: 40 Chloride IVPB 250 mls/hr Q12H [facility] Administration Protocol Potassium Chloride 50 mls @ 50 mls/hr 05/10/17 11:00 05/10/17 12:24 Potassium Cl 10meq/50ml Sterile Water IVPB 05/10/17 13:59 50 mls/hr Q1 [facility] Administration Lactobacillus Acidophilus 1 cap 05/02/17 17:00 05/10/17 08:37 Bacid Acidophilus PO 1 cap BID [facility] Administration Magnesium Oxide 400 mg 05/07/17 09:15 05/10/17 08:38 Mag-Ox PO 400 mg BID [facility] Administration Pantoprazole Sodium 40 mg 04/14/17 10:30 05/10/17 08:39 Protonix Susp NG 40 mg DAILY [facility] Administration Potassium Chloride 40 meq 05/07/17 07:44 05/10/17 08:43 Potassium Chloride Oral Soln NG 40 meq BID [facility] Administration Thiamine HCl 100 mg 05/05/17 09:00 05/10/17 08:41 Vitamin B1 Tab PO 100 mg DAILY [facility] Administration Zinc Sulfate 220 mg 05/03/17 14:30 05/10/17 08:41 Zinc Sulfate 220 Mg Cap PO 220 mg DAILY [facility] Administration - Patient Studies Lab Studies: Microbiology Studies 05/08/17 20:00 Urine Culture - Preliminary Urine,Overton Gram Negative Jeremi 05/04/17 Unknown Blood Culture - Final Blood NO GROWTH AFTER 5 DAYS Gram Stain - Final TEST NOT PERFORMED Lab Studies 05/10/17 05/10/17 05/10/17 Range/Units 04:20 04:20 04:00 WBC 10.4 (4.8-10.8) K/uL RBC 3.17 L (3.80-5.20) Mil/uL Hgb 9.0 L (12.0-16.0) g/dL Hct 27.4 L (34.0-47.0) % MCV 86.5 (81.0-99.0) fl MCH 28.4 (27.0-31.0) pg MCHC 32.8 L (33.0-37.0) g/dL RDW 17.0 H (11.5-14.5) % Plt Count 129 L D (130-400) K/uL pCO2 28 L (35-45) mm/Hg pO2 161 H (80-100) mm/Hg HCO3 23.5 (21-28) mmol/L ABG pH 7.48 H (7.35-7.45) ABG Total CO2 21.8 L (22-28) mmol/L ABG O2 Saturation 100.1 H (95-98) % ABG O2 Content 13.6 L (15-23) ML/dL ABG Base Excess -1.9 (-2.0-3.0) mmol/L ABG Hemoglobin 9.7 L (11.7-17.4) g/dL ABG Carboxyhemoglobin 1.7 H (0.5-1.5) % POC ABG HHb (Measured) -0.1 L (0.0-5.0) % ABG Methemoglobin 1.5 (0.0-3.0) % ABG O2 Capacity 13.6 L (16-24) mL/dL Domingo Test Yes A-a O2 Difference 54.0 mm/Hg Hgb O2 Saturation 96.9 (95.0-98.0) % Vent Mode A/c Mechanical Rate 14 FiO2 35.0 % Tidal Volume 450 PEEP 5 Sodium 148 (132-148) mmol/l Potassium 2.7 L (3.6-5.0) MMOL/L Chloride 115 H (98-107) mmol/L Carbon Dioxide 23 (22-30) mmol/L Anion Gap 13 (10-20) BUN 14 (7-17) mg/dl Creatinine 0.8 (0.7-1.2) mg/dl Est GFR ( Amer) > 60 Est GFR (Non-Af Amer) > 60 Random Glucose 107 H (65-105) mg/dL Calcium 8.7 (8.4-10.2) mg/dL Laboratory Results - last 24 hr 05/10/17 05/10/17 05/10/17 04:00 04:20 04:20 WBC 10.4 RBC 3.17 L Hgb 9.0 L Hct 27.4 L MCV 86.5 MCH 28.4 MCHC 32.8 L RDW 17.0 H Plt Count 129 L D pCO2 28 L pO2 161 H HCO3 23.5 ABG pH 7.48 H ABG Total CO2 21.8 L ABG O2 Saturation 100.1 H ABG O2 Content 13.6 L ABG Base Excess -1.9 ABG Hemoglobin 9.7 L ABG Carboxyhemoglobin 1.7 H POC ABG HHb (Measured) -0.1 L ABG Methemoglobin 1.5 ABG O2 Capacity 13.6 L Domingo Test Yes A-a O2 Difference 54.0 Hgb O2 Saturation 96.9 Vent Mode A/c Mechanical Rate 14 FiO2 35.0 Tidal Volume 450 PEEP 5 Sodium 148 Potassium 2.7 L Chloride 115 H Carbon Dioxide 23 Anion Gap 13 BUN 14 Creatinine 0.8 Est GFR ( Amer) > 60 Est GFR (Non-Af Amer) > 60 Random Glucose 107 H Calcium 8.7 Fingerstick Blood Sugar Results: 221 Critical Care Progress Note - Ventilator Checklist Head of Bed 30 Degrees: Yes Daily Sedation Vacation: Yes Daily Assessment of Readiness to Wean: Yes Daily Spontaneous Breathing Trial: Yes PUD Prophalyxis: Yes DVT Prophylaxis: Yes Oral Care with Chlorhexidine Gluconate {CHG}: Yes - Nutrition Nutrition: Nutrition Category Date Time Status NPO Diet [DIET] Diets 05/08/17 Dinner Active Assessment/Plan (1) Acute respiratory failure with hypoxia Current Visit: Yes Status: Acute Comment: 51 Years old female with Acute Hypoxemic Respiratory Failure S/P Trach and PEG Continue Antibiotics with Vaco, Cefepime and Ceftazidime/Avibactam Continue current ICU mangements Vent weaning as tolerates Strict I&Os (2) Septic shock Current Visit: Yes Status: Acute Comment: Resolved IV Antibiotics CT scan Abdomine revealed Campos colitis Continue with ICU hemodynamic monitoring and maintain end-organ perfusion (3) Acute renal injury due to circulatory failure Current Visit: Yes Status: Acute Comment: Acute kidney injury likely multifactorial due to circulatory failure and septic shock Improved renal function, Back to normal Bun/Cr 14/0.8 Maintian MAP 65-75 (4) Altered mental status Current Visit: Yes Status: Acute Priority: High (5) Anemia Current Visit: Yes Status: Acute Priority: High (6) Metabolic acidosis Current Visit: Yes Status: Acute Comment: Toxic/metabolic acidosis (7) Pneumonia Current Visit: Yes Status: Acute (8) Thrombocytopenia Current Visit: Yes Status: Resolved Priority: High Comment: No evidance of active bleeding
--- NOTE | 2017-05-10 15:13 | CP.PCM.PN ---
Subjective - Date & Time of Evaluation Date of Evaluation: 05/10/17 Time of Evaluation: 11:50 - Subjective Subjective: F/U Respiratory failure. Pt awake, following conversation with eyes. Objective - Vital Signs/Intake and Output Vital Signs (last 24 hours): Temp Pulse Resp BP Pulse Ox 97.6 F 100 H 19 121/74 100 05/10/17 12:00 05/10/17 13:38 05/10/17 12:00 05/10/17 13:38 05/10/17 12:00 Intake and Output: 05/10/17 05/10/17 06:59 18:59 Intake Total 850 270 Output Total 2250 Balance -1400 270 - Medications Medications: Current Medications Acetaminophen (Tylenol 650 Mg Supp) 650 mg SD Q4 PRN PRN Reason: Fever >100.4 F Last Admin: 05/08/17 00:10 Dose: 650 mg Albuterol/Ipratropium (Duoneb 3 Mg/0.5 Mg (3 Ml) Ud) 3 ml INH RQ6 PRN PRN Reason: Shortness of Breath Last Admin: 05/08/17 19:40 Dose: 3 ml Albuterol/Ipratropium (Duoneb 3 Mg/0.5 Mg (3 Ml) Ud) 3 ml INH RQ4 PRN PRN Reason: Shortness of Breath Ascorbic Acid (Vitamin C 250 Mg Tab) 250 mg PO DAILY [facility] Last Admin: 05/10/17 08:41 Dose: 250 mg Cholestyramine Resin (Questran) 4 gm PO DAILY [facility] Last Admin: 05/10/17 08:44 Dose: 4 gm Collagenase (Santyl) 1 applic TOP Q12 [facility] Last Admin: 05/10/17 08:39 Dose: 1 applic Diltiazem HCl (Cardizem) 30 mg NG TID [facility] Last Admin: 05/10/17 13:38 Dose: 30 mg Dimethicone (Proshield Plus Skin Protectant) 1 applic TOP Q8 [facility] Last Admin: 05/10/17 08:42 Dose: Not Given Hydrocortisone Sodium Succinate (Solu-Cortef) 10 mg IV DAILY [facility] Last Admin: 05/10/17 08:39 Dose: 10 mg Tobramycin Sulfate 60 mg/ (Sodium Chloride) 51.5 mls @ 50.739 mls/hr IV Q24H [facility] Last Admin: 05/10/17 13:39 Dose: 50.739 mls/hr Lacosamide 100 mg/ Sodium (Chloride) 110 mls @ 110 mls/hr IVPB Q12@0800,2000 [facility] Last Admin: 05/10/17 10:44 Dose: 110 mls/hr Ceftazidime/Avibactam 2.5 gm/ (Sodium Chloride) 100 mls @ 100 mls/hr IVPB Q8H [facility] PRN Reason: Protocol Last Admin: 05/10/17 10:41 Dose: 100 mls/hr Cefepime HCl 1 gm/ Sodium (Chloride) 100 mls @ 100 mls/hr IVPB Q12 [facility] PRN Reason: Protocol Last Admin: 05/10/17 10:42 Dose: 100 mls/hr Vancomycin HCl 1 gm/ Sodium (Chloride) 250 mls @ 250 mls/hr IVPB Q12H [facility] PRN Reason: Protocol Last Admin: 05/10/17 08:40 Dose: 250 mls/hr Lactobacillus Acidophilus (Bacid Acidophilus) 1 cap PO BID [facility] Last Admin: 05/10/17 08:37 Dose: 1 cap Magnesium Oxide (Mag-Ox) 400 mg PO BID [facility] Last Admin: 05/10/17 08:38 Dose: 400 mg Multi-Ingredient Ointment (Hydrophor Oint) 1 applic TOP TID [facility] Stop: 05/11/17 17:00 Pantoprazole Sodium (Protonix Susp) 40 mg NG DAILY [facility] Last Admin: 05/10/17 08:39 Dose: 40 mg Potassium Chloride (Potassium Chloride Oral Soln) 40 meq NG BID [facility] Last Admin: 05/10/17 08:43 Dose: 40 meq Thiamine HCl (Vitamin B1 Tab) 100 mg PO DAILY [facility] Last Admin: 05/10/17 08:41 Dose: 100 mg Zinc Sulfate (Zinc Sulfate 220 Mg Cap) 220 mg PO DAILY [facility] Last Admin: 05/10/17 08:41 Dose: 220 mg - Labs Labs: 05/10/17 04:20 05/10/17 04:20 PT 14.2 Seconds (9.8-13.1) H 05/08/17 10:34 INR 1.3 (0.9-1.2) H 05/08/17 10:34 APTT 23.5 Seconds (25.6-37.1) L 05/08/17 10:34 - Constitutional Appears: Chronically Ill - Head Exam Head Exam: NORMAL INSPECTION - Eye Exam Eye Exam: PERRL - ENT Exam Additional comments: Intubated - Neck Exam Neck Exam: Normal Inspection - Respiratory Exam Respiratory Exam: Decreased Breath Sounds (at bases), Rhonchi (scattered) - Cardiovascular Exam Cardiovascular Exam: REGULAR RHYTHM - GI/Abdominal Exam GI & Abdominal Exam: Soft, Normal Bowel Sounds - Extremities Exam Extremities Exam: Pedal Edema Additional comments: L heel and R lateral ankle DTI, MSAD posterior thigh. - Back Exam Additional comments: MSAD buttock, sacrum and R flank - Neurological Exam Neurological Exam: Alert, Awake Additional comments: Able to follow simple commands turning her head from side to side - Skin Skin Exam: Warm Assessment and Plan (1) Acute respiratory failure Status: Acute (2) Status post tracheostomy Status: Acute (3) Shock Status: Deleted (4) Pneumonia Status: Acute (5) Acute renal failure (ARF) Status: Acute (6) Anemia Status: Acute (7) Hematuria, gross Status: Deleted (8) Thrombocytopenia Status: Resolved (9) History of pulmonary embolus (PE) Status: Acute (10) Pancolitis Status: Deleted - Assessment and Plan (Free Text) Plan: On PRVC/ AC rate 14, FIO2 35%, Transferred to ICU yesterday after Peg tube insertion, U C-S pending, previous showed pseudomonas,eventually to have Echo and EGG for Colostomy clearance.
[2017-05-10] MEDS ORDERED: Acetaminophen 650mg/20.3ml solution UD PEG ONE (16:19)
[2017-05-10] MEDS: Hydrophor Oint TOP SCH (16:23)
--- NOTE | 2017-05-10 17:07 | CARD ---
APPROVED REPORT EXAM: Two-dimensional and M-mode echocardiogram with Doppler and color Doppler. Other Information Quality : GoodRhythm : NSR Technically limited study due to Limited No M Mode Images, INDICATION CVA/TIA Mitral Valve E/A ratio0.0 TDI E/Lateral E'0.0E/Medial E'0.0 LEFT VENTRICLE The left ventricle is normal size. There is normal left ventricular wall thickness. The systolic function is mildly impaired. The Ejection Fraction is 45-50%. Apical hypokinesis Transmitral Doppler flow pattern is abnormal. RIGHT VENTRICLE The right ventricle is normal size. There is normal right ventricular wall thickness. The right ventricular systolic function is normal. ATRIA The left atrium is mildly dilated. The right atrium size is normal. AORTIC VALVE The aortic valve is not well visualized. No aortic regurgitation is present. There is no aortic valvular stenosis. MITRAL VALVE The mitral valve is mildly thickened. There is no mitral valve stenosis. Mitral regurgitation is trace. TRICUSPID VALVE The tricuspid valve is normal in structure. There is no tricuspid valve regurgitation noted. PULMONIC VALVE The pulmonary valve is normal in structure. There is no pulmonic valvular regurgitation. GREAT VESSELS The aortic root is normal in size. The IVC was not visualized. PERICARDIAL EFFUSION The pericardium appears normal. <Conclusion> The left ventricle is normal size. There is normal left ventricular wall thickness. The systolic function is mildly impaired. The Ejection Fraction is 45-50%. Apical hypokinesis
--- NOTE | 2017-05-10 21:09 | CP.PCM.PN ---
Subjective - Date & Time of Evaluation Date of Evaluation: 05/10/17 Time of Evaluation: 09:00 - Subjective Subjective: Patient appears comfortable. Had PEG yesterday. Objective - Vital Signs/Intake and Output Vital Signs (last 24 hours): Temp Pulse Resp BP Pulse Ox 98.1 F 116 H 25 H 116/73 100 05/10/17 15:51 05/10/17 18:00 05/10/17 18:00 05/10/17 18:00 05/10/17 18:00 Intake and Output: 05/10/17 05/11/17 18:59 06:59 Intake Total 1700 Output Total 1200 Balance 500 - Medications Medications: Current Medications Acetaminophen (Tylenol 650 Mg Supp) 650 mg [place] Q4 PRN PRN Reason: Fever >100.4 F Last Admin: 05/08/17 00:10 Dose: 650 mg Albuterol/Ipratropium (Duoneb 3 Mg/0.5 Mg (3 Ml) Ud) 3 ml INH RQ6 PRN PRN Reason: Shortness of Breath Last Admin: 05/08/17 19:40 Dose: 3 ml Albuterol/Ipratropium (Duoneb 3 Mg/0.5 Mg (3 Ml) Ud) 3 ml INH RQ4 PRN PRN Reason: Shortness of Breath Ascorbic Acid (Vitamin C 250 Mg Tab) 250 mg PO DAILY [facility] Last Admin: 05/10/17 08:41 Dose: 250 mg Cholestyramine Resin (Questran) 4 gm PO DAILY [facility] Last Admin: 05/10/17 08:44 Dose: 4 gm Collagenase (Santyl) 1 applic TOP Q12 [facility] Last Admin: 05/10/17 08:39 Dose: 1 applic Diltiazem HCl (Cardizem) 30 mg NG TID [facility] Last Admin: 05/10/17 16:23 Dose: 30 mg Dimethicone (Proshield Plus Skin Protectant) 1 applic TOP Q8 [facility] Last Admin: 05/10/17 16:25 Dose: Not Given Hydrocortisone Sodium Succinate (Solu-Cortef) 10 mg IV DAILY [facility] Last Admin: 05/10/17 08:39 Dose: 10 mg Tobramycin Sulfate 60 mg/ (Sodium Chloride) 51.5 mls @ 50.739 mls/hr IV Q24H [facility] Last Admin: 05/10/17 13:39 Dose: 50.739 mls/hr Lacosamide 100 mg/ Sodium (Chloride) 110 mls @ 110 mls/hr IVPB Q12@0800,2000 [facility] Last Admin: 05/10/17 20:43 Dose: 110 mls/hr Ceftazidime/Avibactam 2.5 gm/ (Sodium Chloride) 100 mls @ 100 mls/hr IVPB Q8H [facility] PRN Reason: Protocol Last Admin: 05/10/17 10:41 Dose: 100 mls/hr Cefepime HCl 1 gm/ Sodium (Chloride) 100 mls @ 100 mls/hr IVPB Q12 [facility] PRN Reason: Protocol Last Admin: 05/10/17 10:42 Dose: 100 mls/hr Vancomycin HCl 1 gm/ Sodium (Chloride) 250 mls @ 250 mls/hr IVPB Q12H [facility] PRN Reason: Protocol Last Admin: 05/10/17 20:44 Dose: 250 mls/hr Lactobacillus Acidophilus (Bacid Acidophilus) 1 cap PO BID [facility] Last Admin: 05/10/17 16:23 Dose: 1 cap Magnesium Oxide (Mag-Ox) 400 mg PO BID [facility] Last Admin: 05/10/17 16:24 Dose: 400 mg Multi-Ingredient Ointment (Hydrophor Oint) 1 applic TOP TID [facility] Stop: 05/11/17 17:00 Last Admin: 05/10/17 16:23 Dose: 1 applic Pantoprazole Sodium (Protonix Susp) 40 mg NG DAILY [facility] Last Admin: 05/10/17 08:39 Dose: 40 mg Potassium Chloride (Potassium Chloride Oral Soln) 40 meq NG BID [facility] Last Admin: 05/10/17 16:24 Dose: 40 meq Thiamine HCl (Vitamin B1 Tab) 100 mg PO DAILY [facility] Last Admin: 05/10/17 08:41 Dose: 100 mg Zinc Sulfate (Zinc Sulfate 220 Mg Cap) 220 mg PO DAILY [facility] Last Admin: 05/10/17 08:41 Dose: 220 mg - Labs Labs: 05/10/17 04:20 05/10/17 04:20 PT 14.2 Seconds (9.8-13.1) H 05/08/17 10:34 INR 1.3 (0.9-1.2) H 05/08/17 10:34 APTT 23.5 Seconds (25.6-37.1) L 05/08/17 10:34 - Head Exam Head Exam: ATRAUMATIC - ENT Exam ENT Exam: Normal Exam - Neck Exam Neck Exam: Full ROM - Respiratory Exam Respiratory Exam: NORMAL BREATHING PATTERN - Cardiovascular Exam Cardiovascular Exam: REGULAR RHYTHM - GI/Abdominal Exam GI & Abdominal Exam: Soft, Normal Bowel Sounds. absent: Tenderness Additional comments: Gastrostomy site appears cleannnnn Assessment and Plan (1) Anemia Status: Acute (2) Dysphagia Assessment & Plan: Gastrostomy site appears clean. Routine care discussed with nurse. Status: Acute (3) Acute diarrhea Status: Acute
[2017-05-11] MEDS: Proshield Plus GEL TOP SCH ×3 (03:17→16:00)
[2017-05-11 04:28] LABS: ABG ALLEN TEST YES; ARTERIAL BLOOD GAS HCO3 21.6 mmol/L (21-28); ARTERIAL BLOOD GAS MODE CPAP; ARTERIAL BLOOD GAS O2 CAPACITY 12.8 mL/dL (16-24); ARTERIAL BLOOD GAS O2 CONTENT 12.7 ML/dL (15-23); ARTERIAL BLOOD GAS PH 7.41 (7.35-7.45); ARTERIAL BLOOD GAS PO2 87 mm/Hg (80-100); ARTERIAL BLOOD HGB O2 SAT 95.2 % (95.0-98.0); ATERIAL BLOOD GAS PEEP 5; CARBOXYHEMOGLOBIN 1.6 % (0.5-1.5); METHEMOGLOBIN 2.2 % (0.0-3.0)
--- NOTE | 2017-05-11 07:52 | CP.PCM.PN ---
Subjective - Date & Time of Evaluation Date of Evaluation: 05/11/17 Time of Evaluation: 07:49 - Subjective Subjective: Ms. Scales was seen and examined at the bedside. She is awake, alert able to follow simple commands such as turning her head from side to side. She is able to nod her head to answer few questions such as pain, headache, dizziness, nausea, or vomiting. She remains on trach and on mechanical ventilation. She has a peg tube with feeding currently running. She remains unable to wiggle her bilateral fingers. She is on specialty bed of [facility] for her sacral decubitus. There was no untoward events overnight. Objective - Vital Signs/Intake and Output Vital Signs (last 24 hours): Temp Pulse Resp BP Pulse Ox 99.2 F 125 H 29 H 132/81 100 05/11/17 04:00 05/11/17 06:00 05/11/17 06:00 05/11/17 06:00 05/11/17 06:00 Intake and Output: 05/11/17 05/11/17 06:59 18:59 Intake Total 1470 Output Total 1700 Balance -230 - Medications Medications: Current Medications Acetaminophen (Tylenol 650 Mg Supp) 650 mg [place] Q4 PRN PRN Reason: Fever >100.4 F Last Admin: 05/08/17 00:10 Dose: 650 mg Albuterol/Ipratropium (Duoneb 3 Mg/0.5 Mg (3 Ml) Ud) 3 ml INH RQ6 PRN PRN Reason: Shortness of Breath Last Admin: 05/08/17 19:40 Dose: 3 ml Albuterol/Ipratropium (Duoneb 3 Mg/0.5 Mg (3 Ml) Ud) 3 ml INH RQ4 PRN PRN Reason: Shortness of Breath Ascorbic Acid (Vitamin C 250 Mg Tab) 250 mg PO DAILY [facility] Last Admin: 05/10/17 08:41 Dose: 250 mg Cholestyramine Resin (Questran) 4 gm PO DAILY [facility] Last Admin: 05/10/17 08:44 Dose: 4 gm Collagenase (Santyl) 1 applic TOP Q12 [facility] Last Admin: 05/10/17 21:57 Dose: 1 applic Diltiazem HCl (Cardizem) 30 mg NG TID [facility] Last Admin: 05/10/17 16:23 Dose: 30 mg Dimethicone (Proshield Plus Skin Protectant) 1 applic TOP Q8 [facility] Last Admin: 05/11/17 03:17 Dose: Not Given Hydrocortisone Sodium Succinate (Solu-Cortef) 10 mg IV DAILY [facility] Last Admin: 05/10/17 08:39 Dose: 10 mg Tobramycin Sulfate 60 mg/ (Sodium Chloride) 51.5 mls @ 50.739 mls/hr IV Q24H [facility] Last Admin: 05/10/17 13:39 Dose: 50.739 mls/hr Lacosamide 100 mg/ Sodium (Chloride) 110 mls @ 110 mls/hr IVPB Q12@0800,2000 [facility] Last Admin: 05/10/17 20:43 Dose: 110 mls/hr Ceftazidime/Avibactam 2.5 gm/ (Sodium Chloride) 100 mls @ 100 mls/hr IVPB Q8H [facility] PRN Reason: Protocol Last Admin: 05/11/17 01:21 Dose: 100 mls/hr Cefepime HCl 1 gm/ Sodium (Chloride) 100 mls @ 100 mls/hr IVPB Q12 [facility] PRN Reason: Protocol Last Admin: 05/10/17 21:59 Dose: 100 mls/hr Vancomycin HCl 1 gm/ Sodium (Chloride) 250 mls @ 250 mls/hr IVPB Q12H [facility] PRN Reason: Protocol Last Admin: 05/10/17 20:44 Dose: 250 mls/hr Lactobacillus Acidophilus (Bacid Acidophilus) 1 cap PO BID [facility] Last Admin: 05/10/17 16:23 Dose: 1 cap Magnesium Oxide (Mag-Ox) 400 mg PO BID [facility] Last Admin: 05/10/17 16:24 Dose: 400 mg Multi-Ingredient Ointment (Hydrophor Oint) 1 applic TOP TID [facility] Stop: 05/11/17 17:00 Last Admin: 05/10/17 16:23 Dose: 1 applic Pantoprazole Sodium (Protonix Susp) 40 mg NG DAILY [facility] Last Admin: 05/10/17 08:39 Dose: 40 mg Potassium Chloride (Potassium Chloride Oral Soln) 40 meq NG BID [facility] Last Admin: 05/10/17 16:24 Dose: 40 meq Thiamine HCl (Vitamin B1 Tab) 100 mg PO DAILY [facility] Last Admin: 05/10/17 08:41 Dose: 100 mg Zinc Sulfate (Zinc Sulfate 220 Mg Cap) 220 mg PO DAILY [facility] Last Admin: 05/10/17 08:41 Dose: 220 mg - Labs Labs: 05/10/17 04:20 05/10/17 04:20 PT 14.2 Seconds (9.8-13.1) H 05/08/17 10:34 INR 1.3 (0.9-1.2) H 05/08/17 10:34 APTT 23.5 Seconds (25.6-37.1) L 05/08/17 10:34 - Constitutional Appears: No Acute Distress - Head Exam Head Exam: ATRAUMATIC - Eye Exam Eye Exam: PERRL Pupil Exam: NORMAL ACCOMODATION - Neurological Exam Neurological Exam: Alert, Awake Neuro motor strength exam: Left Upper Extremity: 0, Right Upper Extremity: 0, Left Lower Extremity: 0, Right Lower Extremity: 0 Additional comments: Neurological status improved. She is able to follow simple commands and answer few questions using non-verbal cues. Assessment and Plan (1) Seizure Assessment & Plan: Case discussed with Dr. Blanco, continue all current medical regimen. Pending echocardiogram results. There is no new recommendation from neurology. Status: Acute
--- NOTE | 2017-05-11 08:55 | CP.PCM.PN ---
Subjective - Date & Time of Evaluation Date of Evaluation: 05/11/17 Time of Evaluation: 08:55 - Subjective Subjective: s/p Echo and EEG Objective - Vital Signs/Intake and Output Vital Signs (last 24 hours): Temp Pulse Resp BP Pulse Ox 99.4 F 124 H 20 122/75 100 05/11/17 08:00 05/11/17 08:00 05/11/17 08:00 05/11/17 08:00 05/11/17 08:00 Intake and Output: 05/11/17 05/11/17 06:59 18:59 Intake Total 1470 Output Total 1700 Balance -230 - Medications Medications: Current Medications Acetaminophen (Tylenol 650 Mg Supp) 650 mg [place] Q4 PRN PRN Reason: Fever >100.4 F Last Admin: 05/08/17 00:10 Dose: 650 mg Albuterol/Ipratropium (Duoneb 3 Mg/0.5 Mg (3 Ml) Ud) 3 ml INH RQ6 PRN PRN Reason: Shortness of Breath Last Admin: 05/08/17 19:40 Dose: 3 ml Albuterol/Ipratropium (Duoneb 3 Mg/0.5 Mg (3 Ml) Ud) 3 ml INH RQ4 PRN PRN Reason: Shortness of Breath Ascorbic Acid (Vitamin C 250 Mg Tab) 250 mg PO DAILY [facility] Last Admin: 05/10/17 08:41 Dose: 250 mg Cholestyramine Resin (Questran) 4 gm PO DAILY [facility] Last Admin: 05/10/17 08:44 Dose: 4 gm Collagenase (Santyl) 1 applic TOP Q12 [facility] Last Admin: 05/10/17 21:57 Dose: 1 applic Diltiazem HCl (Cardizem) 30 mg NG TID [facility] Last Admin: 05/10/17 16:23 Dose: 30 mg Dimethicone (Proshield Plus Skin Protectant) 1 applic TOP Q8 [facility] Last Admin: 05/11/17 03:17 Dose: Not Given Hydrocortisone Sodium Succinate (Solu-Cortef) 10 mg IV DAILY [facility] Last Admin: 05/10/17 08:39 Dose: 10 mg Tobramycin Sulfate 60 mg/ (Sodium Chloride) 51.5 mls @ 50.739 mls/hr IV Q24H [facility] Last Admin: 05/10/17 13:39 Dose: 50.739 mls/hr Lacosamide 100 mg/ Sodium (Chloride) 110 mls @ 110 mls/hr IVPB Q12@0800,2000 [facility] Last Admin: 05/10/17 20:43 Dose: 110 mls/hr Ceftazidime/Avibactam 2.5 gm/ (Sodium Chloride) 100 mls @ 100 mls/hr IVPB Q8H [facility] PRN Reason: Protocol Last Admin: 05/11/17 01:21 Dose: 100 mls/hr Cefepime HCl 1 gm/ Sodium (Chloride) 100 mls @ 100 mls/hr IVPB Q12 [facility] PRN Reason: Protocol Last Admin: 05/10/17 21:59 Dose: 100 mls/hr Vancomycin HCl 1 gm/ Sodium (Chloride) 250 mls @ 250 mls/hr IVPB Q12H [facility] PRN Reason: Protocol Last Admin: 05/10/17 20:44 Dose: 250 mls/hr Lactobacillus Acidophilus (Bacid Acidophilus) 1 cap PO BID [facility] Last Admin: 05/10/17 16:23 Dose: 1 cap Magnesium Oxide (Mag-Ox) 400 mg PO BID [facility] Last Admin: 05/10/17 16:24 Dose: 400 mg Multi-Ingredient Ointment (Hydrophor Oint) 1 applic TOP TID [facility] Stop: 05/11/17 17:00 Last Admin: 05/10/17 16:23 Dose: 1 applic Pantoprazole Sodium (Protonix Susp) 40 mg NG DAILY [facility] Last Admin: 05/10/17 08:39 Dose: 40 mg Potassium Chloride (Potassium Chloride Oral Soln) 40 meq NG BID [facility] Last Admin: 05/10/17 16:24 Dose: 40 meq Thiamine HCl (Vitamin B1 Tab) 100 mg PO DAILY [facility] Last Admin: 05/10/17 08:41 Dose: 100 mg Zinc Sulfate (Zinc Sulfate 220 Mg Cap) 220 mg PO DAILY [facility] Last Admin: 05/10/17 08:41 Dose: 220 mg - Labs Labs: 05/10/17 04:20 05/10/17 04:20 PT 14.2 Seconds (9.8-13.1) H 05/08/17 10:34 INR 1.3 (0.9-1.2) H 05/08/17 10:34 APTT 23.5 Seconds (25.6-37.1) L 05/08/17 10:34 Assessment and Plan (1) Hypotension Status: Acute (2) Tachycardia Status: Acute (3) Preop cardiovascular exam Status: Acute (4) Septic shock Status: Acute
[2017-05-11] MEDS: Lactobacillus Acidophilus 500 MU Cap PO SCH ×2 (08:56→15:59)
[2017-05-11] MEDS: Potassium Chloride 20 mEq/15 ml LIQ UD NG SCH ×2 (08:57→16:01)
[2017-05-11] MEDS: Hydrophor Oint TOP SCH ×3 (08:57→16:00)
[2017-05-11] MEDS: Magnesium Oxide 400 mg Tab UD PO SCH ×2 (08:57→16:00)
[2017-05-11] MEDS: Cholestyramine 4 gm/Pkt UD PO SCH (08:58)
[2017-05-11] MEDS: Pantoprazole 40 mg Susp UD NG SCH (08:58)
[2017-05-11] MEDS: Santyl Collagenase OINTMENT TOP SCH ×2 (08:58→20:32)
[2017-05-11] MEDS: Cefepime 1 GM in Sodium Chloride 0.9% 100 ML IVPB SCH (08:59)
[2017-05-11] MEDS: Lacosamide 200mg/20ml 100 MG in Sodium Chloride 0.9% 100 ML IVPB SCH ×2 (09:00→20:24)
[2017-05-11 10:19] LABS: HEMATOCRIT 25.3 % (34.0-47.0); MEAN CELL VOLUME 87.6 fl (81.0-99.0); MEAN CORPUSCULAR HEMOGLOBIN 28.1 pg (27.0-31.0); MEAN CORPUSCULAR HGB CONC 32.1 g/dL (33.0-37.0); RED CELL DISTRIBUTION WIDTH 18.2 % (11.5-14.5); WHITE BLOOD COUNT 11.5 K/uL (4.8-10.8)
[2017-05-11 10:20] LABS: BLOOD UREA NITROGEN 16 mg/dl (7-17); CALCIUM 8.5 mg/dL (8.4-10.2); CARBON DIOXIDE 21 mmol/L (22-30); CHLORIDE 118 mmol/L (98-107); GFR AFRICAN-AMERICAN > 60; GLUCOSE,RANDOM 111 mg/dL (65-105); POTASSIUM 3.8 MMOL/L (3.6-5.0); SODIUM 146 mmol/l (132-148)
--- NOTE | 2017-05-11 10:52 | CP.PCM.PN ---
Subjective - Date & Time of Evaluation Date of Evaluation: 05/11/17 Time of Evaluation: 10:48 - Subjective Subjective: Patient appears to be responding opening her eyes and communicating somewhat. Vital sign noted to be stable Family member at the bedside Urine output noted to be very good. Objective - Vital Signs/Intake and Output Vital Signs (last 24 hours): Temp Pulse Resp BP Pulse Ox 99.4 F 122 H 20 122/75 100 05/11/17 08:00 05/11/17 08:56 05/11/17 08:00 05/11/17 08:56 05/11/17 08:00 Intake and Output: 05/11/17 05/11/17 06:59 18:59 Intake Total 1470 Output Total 1700 Balance -230 - Medications Medications: Current Medications Acetaminophen (Tylenol 650 Mg Supp) 650 mg [place] Q4 PRN PRN Reason: Fever >100.4 F Last Admin: 05/08/17 00:10 Dose: 650 mg Albuterol/Ipratropium (Duoneb 3 Mg/0.5 Mg (3 Ml) Ud) 3 ml INH RQ6 PRN PRN Reason: Shortness of Breath Last Admin: 05/08/17 19:40 Dose: 3 ml Albuterol/Ipratropium (Duoneb 3 Mg/0.5 Mg (3 Ml) Ud) 3 ml INH RQ4 PRN PRN Reason: Shortness of Breath Ascorbic Acid (Vitamin C 250 Mg Tab) 250 mg PO DAILY [facility] Last Admin: 05/11/17 08:59 Dose: 250 mg Cholestyramine Resin (Questran) 4 gm PO DAILY [facility] Last Admin: 05/11/17 08:58 Dose: 4 gm Collagenase (Santyl) 1 applic TOP Q12 [facility] Last Admin: 05/11/17 08:58 Dose: 1 applic Diltiazem HCl (Cardizem) 30 mg NG TID [facility] Last Admin: 05/11/17 08:56 Dose: 30 mg Dimethicone (Proshield Plus Skin Protectant) 1 applic TOP Q8 [facility] Last Admin: 05/11/17 03:17 Dose: Not Given Hydrocortisone Sodium Succinate (Solu-Cortef) 10 mg IV DAILY [facility] Last Admin: 05/10/17 08:39 Dose: 10 mg Lacosamide 100 mg/ Sodium (Chloride) 110 mls @ 110 mls/hr IVPB Q12@0800,2000 [facility] Last Admin: 05/11/17 09:00 Dose: 110 mls/hr Ceftazidime/Avibactam 2.5 gm/ (Sodium Chloride) 100 mls @ 100 mls/hr IVPB Q8H [facility] PRN Reason: Protocol Last Admin: 05/11/17 09:01 Dose: 100 mls/hr Vancomycin HCl 1 gm/ Sodium (Chloride) 250 mls @ 250 mls/hr IVPB Q12H [facility] PRN Reason: Protocol Last Admin: 05/11/17 10:15 Dose: 250 mls/hr Lactobacillus Acidophilus (Bacid Acidophilus) 1 cap PO BID [facility] Last Admin: 05/11/17 08:56 Dose: 1 cap Magnesium Oxide (Mag-Ox) 400 mg PO BID [facility] Last Admin: 05/11/17 08:57 Dose: 400 mg Multi-Ingredient Ointment (Hydrophor Oint) 1 applic TOP TID [facility] Stop: 05/11/17 17:00 Last Admin: 05/11/17 08:57 Dose: 1 applic Pantoprazole Sodium (Protonix Susp) 40 mg NG DAILY [facility] Last Admin: 05/11/17 08:58 Dose: 40 mg Potassium Chloride (Potassium Chloride Oral Soln) 40 meq NG BID [facility] Last Admin: 05/11/17 08:57 Dose: 40 meq Thiamine HCl (Vitamin B1 Tab) 100 mg PO DAILY [facility] Last Admin: 05/11/17 08:59 Dose: 100 mg Zinc Sulfate (Zinc Sulfate 220 Mg Cap) 220 mg PO DAILY [facility] Last Admin: 05/11/17 08:59 Dose: 220 mg - Labs Labs: 05/11/17 09:45 05/11/17 09:45 PT 14.2 Seconds (9.8-13.1) H 05/08/17 10:34 INR 1.3 (0.9-1.2) H 05/08/17 10:34 APTT 23.5 Seconds (25.6-37.1) L 05/08/17 10:34 - Constitutional Appears: No Acute Distress - ENT Exam ENT Exam: Mucous Membranes Moist - Neck Exam Neck Exam: absent: Lymphadenopathy - Respiratory Exam Respiratory Exam: Rhonchi, NORMAL BREATHING PATTERN. absent: Chest Wall Tenderness - Cardiovascular Exam Cardiovascular Exam: REGULAR RHYTHM. absent: JVD, Rubs - GI/Abdominal Exam GI & Abdominal Exam: Soft, Normal Bowel Sounds - Extremities Exam Extremities Exam: absent: Calf Tenderness - Back Exam Back Exam: absent: CVA tenderness (L), CVA tenderness (R) - Skin Skin Exam: Warm. absent: Cyanosis Assessment and Plan (1) Acute renal injury due to circulatory failure Assessment & Plan: Hypokalemia corrected after given multiple doses of potassium chloride intravenously and she is on oral potassium chloride. Also patient was given 2GM of magnesium yesterday. Repeat serum magnesium ordered right now. The rest of the problem as noted #3 status post acute renal failure which has been recovered. #4 status post septic shock In addition to the past history which she had ovarian cancer and surgery among other things. Status: Acute (2) Altered mental status Status: Acute (3) GI bleed Status: Acute
--- NOTE | 2017-05-11 14:44 | CP.CCUPN ---
CCU Subjective - Physician Review Subjective (Free Text): Remains awake and responsive, opens eyes, interactive to simple commands especially when is at the bedside as this AM. Tolerating CPAP 5, PS to 15, since yesterday. Other vitals and I/O's reviewed. No fever spikes last 24H. Vigorous diuresis noted. Continues to have diarrhea. ROS: Unobtainable from intubated Patient. No other pertinent negs or positives on 10+ system review. PMSFH: All Nursing and physician documentation reviewed to date; no new pertinent info noted relevant to current medical problems. CXR: none ordered since 05/01: essentially unchanged and stable: trach tube position ok within tracheal air column, no new consolidation (my interp). MAJOR PROBLEMS: 1. s/p +Kleb pneumoniae (ESBL) and E. faecalis Bacteremia 2. s/p Septic Shock 2 #1 3. s/p Acute Renal Failure / ATN 4. Acute Resp Failure, 2 pneumonia 5. s/ p Thrombocytopenia / Coagulopathy- near-resolved. PLAN: 1. Had hypotensive episode several days ago, still tachycardic, unclear of overall hypovolemia from diarrheal losses and increased urine output from ATN recovery. BUN/Cr has normalized from ATN. Weights are down significantly. Consider cautious intravascular volume repletion with colloid ( albumin). 2. Wean from MV again as tolerated, could try decreasing level of PS to 8-10. 3. K levels improved. 4. Pseudomonas isolated from, urine again, intermed sens to Tobra, discuss with ID to resume vs other coverage. 5. Steroids should have been stopped already, will finally stop today. 6. 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 Will discontinue now unless otherwise directed by Cardiology. CCU Objective - Vital Signs / Intake & Output Vital Signs (Last 4 hours): Vital Signs Temp Pulse Resp BP Pulse Ox 05/11/17 12:56 116 H 112/70 05/11/17 12:00 99.1 F 117 H 15 112/70 100 Intake and Output (Last 8hrs): Intake & Output 05/10/17 05/11/17 05/11/17 22:59 06:59 14:59 Intake Total 2059 924 3500 Output Total 1800 1100 Balance -70 -320 1120 Intake: IV 150 Intake, Piggyback 1100 500 Tube Feeding 480 480 320 Free Water Flush 150 300 150 Output: Urine 1800 1100 Urethral (Overton) 1800 1100 Other: # Bowel Movements 1 1 1 - Physical Exam Head: Positive for: Atraumatic, Normocephalic. Negative for: Tenderness, Contusion Pupils: Positive for: PERRL. Negative for: Sluggish, Non-Reactive Extroacular Muscles: Negative for: Gaze Palsy Conjunctiva: Positive for: Normal. Negative for: Injected, Icteric Mouth: Positive for: Dry (bloody) Neck: Negative for: JVD Respiratory/Chest: Positive for: Decreased Breath Sounds, Rhonchi. Negative for : Accessory Muscle Use, Wheezes Cardiovascular: Positive for: Tachycardic. Negative for: Murmurs, Rub Abdomen: Positive for: Distention, Normal Bowel Sounds. Negative for: Tenderness Upper Extremity: Positive for: Edema Lower Extremity: Positive for: Edema. Negative for: CALF TENDERNESS, NORMAL PULSES, Cyanosis Neurological: Positive for: Other (on ventilator) Skin: Positive for: Warm, Dry. Negative for: Rashes Psychiatric: Positive for: Alert, Normal Affect - Medications Active Medications: Active Medications Generic Name Dose Route Start Last Admin Trade Name Freq PRN Reason Stop Dose Admin Acetaminophen 650 mg 05/06/17 20:47 05/08/17 00:10 Tylenol 650 Mg Supp NM 650 mg Q4 PRN Administration Fever >100.4 F Albuterol/Ipratropium 3 ml 05/08/17 17:13 05/08/17 19:40 Duoneb 3 Mg/0.5 Mg (3 Ml) Ud INH 3 ml RQ6 PRN Administration Shortness of Breath Albuterol/Ipratropium 3 ml 05/09/17 17:48 Duoneb 3 Mg/0.5 Mg (3 Ml) Ud INH RQ4 PRN Shortness of Breath Ascorbic Acid 250 mg 05/03/17 14:30 05/11/17 08:59 Vitamin C 250 Mg Tab PO 250 mg DAILY [facility] Administration Cholestyramine Resin 4 gm 05/02/17 14:15 05/11/17 08:58 Questran PO 4 gm DAILY [facility] Administration Collagenase 1 applic 04/25/17 21:00 05/11/17 08:58 Santyl TOP 1 applic Q12 [facility] Administration Diltiazem HCl 30 mg 05/06/17 13:00 05/11/17 12:56 Cardizem NG 30 mg TID [facility] Administration Dimethicone 1 applic 04/25/17 17:00 05/11/17 12:57 Proshield Plus Skin Protectant TOP 1 applic Q8 [facility] Administration Lacosamide 100 mg/ Sodium 110 mls @ 110 mls/hr 05/07/17 08:00 05/11/17 09:00 Chloride IVPB 110 mls/hr Q12@0800,2000 [facility] Administration Ceftazidime/Avibactam 2.5 gm/ 100 mls @ 100 mls/hr 05/08/17 17:30 05/11/17 09 :01 Sodium Chloride IVPB 100 mls/hr Q8H [facility] Administration Protocol Vancomycin HCl 1 gm/ Sodium 250 mls @ 250 mls/hr 05/10/17 09:00 05/11/17 10: 15 Chloride IVPB 250 mls/hr Q12H [facility] Administration Protocol Lactobacillus Acidophilus 1 cap 05/02/17 17:00 05/11/17 08:56 Bacid Acidophilus PO 1 cap BID [facility] Administration Magnesium Oxide 400 mg 05/07/17 09:15 05/11/17 08:57 Mag-Ox PO 400 mg BID [facility] Administration Multi-Ingredient Ointment 1 applic 05/10/17 17:00 05/11/17 12:57 Hydrophor Oint TOP 05/11/17 17:00 1 applic TID [facility] Administration Pantoprazole Sodium 40 mg 04/14/17 10:30 05/11/17 08:58 Protonix Susp NG 40 mg DAILY [facility] Administration Potassium Chloride 40 meq 05/07/17 07:44 05/11/17 08:57 Potassium Chloride Oral Soln NG 40 meq BID [facility] Administration Thiamine HCl 100 mg 05/05/17 09:00 05/11/17 08:59 Vitamin B1 Tab PO 100 mg DAILY [facility] Administration Zinc Sulfate 220 mg 05/03/17 14:30 05/11/17 08:59 Zinc Sulfate 220 Mg Cap PO 220 mg DAILY [facility] Administration - Patient Studies Lab Studies: Microbiology Studies 05/09/17 18:00 MRSA Culture (Admit) - Final Naris MRSA NOT DETECTED 05/10/17 17:14 Urine Culture - Final Urine,[place] No Growth (<1,000 CFU/ML) 05/09/17 08:48 Gram Stain - Final Trachasp Sputum Culture - Preliminary Gram Negative Jeremi 05/08/17 20:00 Urine Culture - Preliminary Urine,[place] Pseudomonas Aeruginosa Yeast Species Lab Studies 05/11/17 05/11/17 05/11/17 Range/Units 11:18 09:45 09:45 WBC 11.5 H (4.8-10.8) K/uL RBC 2.88 L (3.80-5.20) Mil/uL Hgb 8.1 L (12.0-16.0) g/dL Hct 25.3 L (34.0-47.0) % MCV 87.6 (81.0-99.0) fl MCH 28.1 (27.0-31.0) pg MCHC 32.1 L (33.0-37.0) g/dL RDW 18.2 H (11.5-14.5) % Plt Count 111 L (130-400) K/uL pCO2 (35-45) mm/Hg pO2 (80-100) mm/Hg HCO3 (21-28) mmol/L ABG pH (7.35-7.45) ABG Total CO2 (22-28) mmol/L ABG O2 Saturation (95-98) % ABG O2 Content (15-23) ML/dL ABG Base Excess (-2.0-3.0) mmol/L ABG Hemoglobin (11.7-17.4) g/dL ABG Carboxyhemoglobin (0.5-1.5) % POC ABG HHb (Measured) (0.0-5.0) % ABG Methemoglobin (0.0-3.0) % ABG O2 Capacity (16-24) mL/dL Domingo Test A-a O2 Difference mm/Hg Hgb O2 Saturation (95.0-98.0) % Vent Mode FiO2 % PEEP Pressure Support Sodium 146 (132-148) mmol/l Potassium 3.8 (3.6-5.0) MMOL/L Chloride 118 H (98-107) mmol/L Carbon Dioxide 21 L (22-30) mmol/L Anion Gap 11 (10-20) BUN 16 (7-17) mg/dl Creatinine 0.7 (0.7-1.2) mg/dl Est GFR ( Amer) > 60 Est GFR (Non-Af Amer) > 60 POC Glucose (mg/dL) (65-110) mg/dL Random Glucose 111 H (65-105) mg/dL Calcium 8.5 (8.4-10.2) mg/dL Magnesium 2.0 (1.6-2.3) MG/DL 05/11/17 05/11/17 Range/Units 06:30 04:20 WBC (4.8-10.8) K/uL RBC (3.80-5.20) Mil/uL Hgb (12.0-16.0) g/dL Hct (34.0-47.0) % MCV (81.0-99.0) fl MCH (27.0-31.0) pg MCHC (33.0-37.0) g/dL RDW (11.5-14.5) % Plt Count (130-400) K/uL pCO2 31 L (35-45) mm/Hg pO2 87 (80-100) mm/Hg HCO3 21.6 (21-28) mmol/L ABG pH 7.41 (7.35-7.45) ABG Total CO2 20.6 L (22-28) mmol/L ABG O2 Saturation 99.0 H (95-98) % ABG O2 Content 12.7 L (15-23) ML/dL ABG Base Excess -4.3 L (-2.0-3.0) mmol/L ABG Hemoglobin 9.4 L (11.7-17.4) g/dL ABG Carboxyhemoglobin 1.6 H (0.5-1.5) % POC ABG HHb (Measured) 1.0 (0.0-5.0) % ABG Methemoglobin 2.2 (0.0-3.0) % ABG O2 Capacity 12.8 L (16-24) mL/dL Domingo Test Yes A-a O2 Difference 124.0 mm/Hg Hgb O2 Saturation 95.2 (95.0-98.0) % Vent Mode Cpap FiO2 35.0 % PEEP 5 Pressure Support 15 Sodium (132-148) mmol/l Potassium (3.6-5.0) MMOL/L Chloride (98-107) mmol/L Carbon Dioxide (22-30) mmol/L Anion Gap (10-20) BUN (7-17) mg/dl Creatinine (0.7-1.2) mg/dl Est GFR ( Amer) Est GFR (Non-Af Amer) POC Glucose (mg/dL) 106 (65-110) mg/dL Random Glucose (65-105) mg/dL Calcium (8.4-10.2) mg/dL Magnesium (1.6-2.3) MG/DL Laboratory Results - last 24 hr 05/11/17 05/11/17 05/11/17 04:20 06:30 09:45 WBC 11.5 H RBC 2.88 L Hgb 8.1 L Hct 25.3 L MCV 87.6 MCH 28.1 MCHC 32.1 L RDW 18.2 H Plt Count 111 L pCO2 31 L pO2 87 HCO3 21.6 ABG pH 7.41 ABG Total CO2 20.6 L ABG O2 Saturation 99.0 H ABG O2 Content 12.7 L ABG Base Excess -4.3 L ABG Hemoglobin 9.4 L ABG Carboxyhemoglobin 1.6 H POC ABG HHb (Measured) 1.0 ABG Methemoglobin 2.2 ABG O2 Capacity 12.8 L Domingo Test Yes A-a O2 Difference 124.0 Hgb O2 Saturation 95.2 Vent Mode Cpap FiO2 35.0 PEEP 5 Pressure Support 15 Sodium Potassium Chloride Carbon Dioxide Anion Gap BUN Creatinine Est GFR ( Amer) Est GFR (Non-Af Amer) POC Glucose (mg/dL) 106 Random Glucose Calcium Magnesium 05/11/17 05/11/17 09:45 11:18 WBC RBC Hgb Hct MCV MCH MCHC RDW Plt Count pCO2 pO2 HCO3 ABG pH ABG Total CO2 ABG O2 Saturation ABG O2 Content ABG Base Excess ABG Hemoglobin ABG Carboxyhemoglobin POC ABG HHb (Measured) ABG Methemoglobin ABG O2 Capacity Domingo Test A-a O2 Difference Hgb O2 Saturation Vent Mode FiO2 PEEP Pressure Support Sodium 146 Potassium 3.8 Chloride 118 H Carbon Dioxide 21 L Anion Gap 11 BUN 16 Creatinine 0.7 Est GFR ( Amer) > 60 Est GFR (Non-Af Amer) > 60 POC Glucose (mg/dL) Random Glucose 111 H Calcium 8.5 Magnesium 2.0 Fingerstick Blood Sugar Results: 221 Review of Systems - Review of Systems Systems not reviewed;Unavailable: Intubated Critical Care Progress Note - Nutrition Nutrition: Nutrition Category Date Time Status NPO Diet [DIET] Diets 05/08/17 Dinner Active
--- NOTE | 2017-05-11 16:04 | CP.PCM.PN ---
Subjective - Date & Time of Evaluation Date of Evaluation: 05/11/17 Time of Evaluation: 10:20 - Subjective Subjective: F/U Respiratory failure. Pt awake, following conversation with eyes, no A/D. Objective - Vital Signs/Intake and Output Vital Signs (last 24 hours): Temp Pulse Resp BP Pulse Ox 99.1 F 112 H 18 121/78 100 05/11/17 12:00 05/11/17 15:59 05/11/17 14:00 05/11/17 15:59 05/11/17 14:00 Intake and Output: 05/11/17 05/11/17 06:59 18:59 Intake Total 1470 1390 Output Total 1700 Balance -230 1390 - Medications Medications: Current Medications Acetaminophen (Tylenol 650 Mg Supp) 650 mg ME Q4 PRN PRN Reason: Fever >100.4 F Last Admin: 05/08/17 00:10 Dose: 650 mg Albuterol/Ipratropium (Duoneb 3 Mg/0.5 Mg (3 Ml) Ud) 3 ml INH RQ6 PRN PRN Reason: Shortness of Breath Last Admin: 05/08/17 19:40 Dose: 3 ml Albuterol/Ipratropium (Duoneb 3 Mg/0.5 Mg (3 Ml) Ud) 3 ml INH RQ4 PRN PRN Reason: Shortness of Breath Ascorbic Acid (Vitamin C 250 Mg Tab) 250 mg PO DAILY [facility] Last Admin: 05/11/17 08:59 Dose: 250 mg Cholestyramine Resin (Questran) 4 gm PO DAILY [facility] Last Admin: 05/11/17 08:58 Dose: 4 gm Collagenase (Santyl) 1 applic TOP Q12 [facility] Last Admin: 05/11/17 08:58 Dose: 1 applic Diltiazem HCl (Cardizem) 30 mg NG TID [facility] Last Admin: 05/11/17 15:59 Dose: 30 mg Dimethicone (Proshield Plus Skin Protectant) 1 applic TOP Q8 [facility] Last Admin: 05/11/17 16:00 Dose: 1 applic Lacosamide 100 mg/ Sodium (Chloride) 110 mls @ 110 mls/hr IVPB Q12@0800,2000 [facility] Last Admin: 05/11/17 09:00 Dose: 110 mls/hr Ceftazidime/Avibactam 2.5 gm/ (Sodium Chloride) 100 mls @ 100 mls/hr IVPB Q8H [facility] PRN Reason: Protocol Last Admin: 05/11/17 09:01 Dose: 100 mls/hr Vancomycin HCl 1 gm/ Sodium (Chloride) 250 mls @ 250 mls/hr IVPB Q12H [facility] PRN Reason: Protocol Last Admin: 05/11/17 10:15 Dose: 250 mls/hr Lactobacillus Acidophilus (Bacid Acidophilus) 1 cap PO BID [facility] Last Admin: 05/11/17 15:59 Dose: 1 cap Magnesium Oxide (Mag-Ox) 400 mg PO BID [facility] Last Admin: 05/11/17 16:00 Dose: 400 mg Multi-Ingredient Ointment (Hydrophor Oint) 1 applic TOP TID [facility] Stop: 05/11/17 17:00 Last Admin: 05/11/17 16:00 Dose: 1 applic Pantoprazole Sodium (Protonix Susp) 40 mg NG DAILY [facility] Last Admin: 05/11/17 08:58 Dose: 40 mg Potassium Chloride (Potassium Chloride Oral Soln) 40 meq NG BID [facility] Last Admin: 05/11/17 16:01 Dose: 40 meq Thiamine HCl (Vitamin B1 Tab) 100 mg PO DAILY [facility] Last Admin: 05/11/17 08:59 Dose: 100 mg Zinc Sulfate (Zinc Sulfate 220 Mg Cap) 220 mg PO DAILY [facility] Last Admin: 05/11/17 08:59 Dose: 220 mg - Labs Labs: 05/11/17 09:45 05/11/17 09:45 PT 14.2 Seconds (9.8-13.1) H 05/08/17 10:34 INR 1.3 (0.9-1.2) H 05/08/17 10:34 APTT 23.5 Seconds (25.6-37.1) L 05/08/17 10:34 - Constitutional Appears: No Acute Distress, Chronically Ill - Head Exam Head Exam: NORMAL INSPECTION - Eye Exam Eye Exam: PERRL - ENT Exam Additional comments: Intubated - Neck Exam Neck Exam: Normal Inspection - Respiratory Exam Respiratory Exam: Rhonchi (scattered) - Cardiovascular Exam Cardiovascular Exam: REGULAR RHYTHM - GI/Abdominal Exam GI & Abdominal Exam: Soft, Normal Bowel Sounds - Extremities Exam Extremities Exam: Pedal Edema Additional comments: L heel DTI, R lateral ankle healing, MSAD posterior thigh - Back Exam Additional comments: MSAD buttock, sacrum, R flank. - Neurological Exam Neurological Exam: Awake Additional comments: able to follows simple commands moving her head side to side. - Skin Skin Exam: Warm Assessment and Plan (1) Acute respiratory failure Status: Acute (2) Status post tracheostomy Status: Acute (3) Shock Status: Deleted (4) Pneumonia Status: Acute (5) Acute renal failure (ARF) Status: Acute (6) Anemia Status: Acute (7) Hematuria, gross Status: Deleted (8) Thrombocytopenia Status: Resolved (9) History of pulmonary embolus (PE) Status: Acute (10) Pancolitis Status: Deleted (11) UTI (urinary tract infection) Status: Deleted - Assessment and Plan (Free Text) Plan: A s per ID, DC Maxipeme and Tobramycin, continue Vanco, Avicaz and rest of tx.
--- NOTE | 2017-05-11 16:34 | CP.PCM.PN ---
Subjective - Date & Time of Evaluation Date of Evaluation: 05/11/17 Time of Evaluation: 16:34 - Subjective Subjective: I D NOTE URINE CULTURE:MDR PSEUDOMONAS SENSITIVE TO AVYCAZ WHICH WILL BE CONTINUED D/C MAXIPEME ALL PREVIOUS POS GRAM NEGS WERE RESISTANT AND HAVE COVERAGE C AVYCAZ Objective - Vital Signs/Intake and Output Vital Signs (last 24 hours): Temp Pulse Resp BP Pulse Ox 99.6 F 113 H 18 121/78 100 05/11/17 16:00 05/11/17 16:00 05/11/17 16:00 05/11/17 16:00 05/11/17 16:00 Intake and Output: 05/11/17 05/11/17 06:59 18:59 Intake Total 1470 1390 Output Total 1700 Balance -230 1390 - Medications Medications: Current Medications Acetaminophen (Tylenol 650 Mg Supp) 650 mg ND Q4 PRN PRN Reason: Fever >100.4 F Last Admin: 05/08/17 00:10 Dose: 650 mg Albuterol/Ipratropium (Duoneb 3 Mg/0.5 Mg (3 Ml) Ud) 3 ml INH RQ6 PRN PRN Reason: Shortness of Breath Last Admin: 05/08/17 19:40 Dose: 3 ml Albuterol/Ipratropium (Duoneb 3 Mg/0.5 Mg (3 Ml) Ud) 3 ml INH RQ4 PRN PRN Reason: Shortness of Breath Ascorbic Acid (Vitamin C 250 Mg Tab) 250 mg PO DAILY [facility] Last Admin: 05/11/17 08:59 Dose: 250 mg Cholestyramine Resin (Questran) 4 gm PO DAILY [facility] Last Admin: 05/11/17 08:58 Dose: 4 gm Collagenase (Santyl) 1 applic TOP Q12 [facility] Last Admin: 05/11/17 08:58 Dose: 1 applic Diltiazem HCl (Cardizem) 30 mg NG TID [facility] Last Admin: 05/11/17 15:59 Dose: 30 mg Dimethicone (Proshield Plus Skin Protectant) 1 applic TOP Q8 [facility] Last Admin: 05/11/17 16:00 Dose: 1 applic Lacosamide 100 mg/ Sodium (Chloride) 110 mls @ 110 mls/hr IVPB Q12@0800,2000 [facility] Last Admin: 05/11/17 09:00 Dose: 110 mls/hr Ceftazidime/Avibactam 2.5 gm/ (Sodium Chloride) 100 mls @ 100 mls/hr IVPB Q8H [facility] PRN Reason: Protocol Last Admin: 05/11/17 09:01 Dose: 100 mls/hr Vancomycin HCl 1 gm/ Sodium (Chloride) 250 mls @ 250 mls/hr IVPB Q12H [facility] PRN Reason: Protocol Last Admin: 05/11/17 10:15 Dose: 250 mls/hr Lactobacillus Acidophilus (Bacid Acidophilus) 1 cap PO BID [facility] Last Admin: 05/11/17 15:59 Dose: 1 cap Magnesium Oxide (Mag-Ox) 400 mg PO BID [facility] Last Admin: 05/11/17 16:00 Dose: 400 mg Multi-Ingredient Ointment (Hydrophor Oint) 1 applic TOP TID [facility] Stop: 05/11/17 17:00 Last Admin: 05/11/17 16:00 Dose: 1 applic Pantoprazole Sodium (Protonix Susp) 40 mg NG DAILY [facility] Last Admin: 05/11/17 08:58 Dose: 40 mg Potassium Chloride (Potassium Chloride Oral Soln) 40 meq NG BID [facility] Last Admin: 05/11/17 16:01 Dose: 40 meq Thiamine HCl (Vitamin B1 Tab) 100 mg PO DAILY [facility] Last Admin: 05/11/17 08:59 Dose: 100 mg Zinc Sulfate (Zinc Sulfate 220 Mg Cap) 220 mg PO DAILY [facility] Last Admin: 05/11/17 08:59 Dose: 220 mg - Labs Labs: 05/11/17 09:45 05/11/17 09:45 PT 14.2 Seconds (9.8-13.1) H 05/08/17 10:34 INR 1.3 (0.9-1.2) H 05/08/17 10:34 APTT 23.5 Seconds (25.6-37.1) L 05/08/17 10:34
--- NOTE | 2017-05-11 23:57 | CON ---
DATE: 05/11/2017 TIME OF CONSULTATION: Roughly 01:15 p.m. BRIEF HISTORY: Patient is a 51-year-old female, who originally presented in March with the diagnoses of GI bleed, respiratory failure, altered mental status, and now has gross hematuria and the reason for the consult. Patient was originally seen at [facility] in December for small bowel obstruction where supposedly she had a cystoscopy with insertion of a right ureteral stent for right hydronephrosis, which may have been removed, and she also had surgery for small bowel obstruction and developed a pulmonary embolus where she required an IVC filter. The patient is now slowly improving and is still currently on a respirator with a tracheostomy. She was on Xarelto, which was stopped and the gross hematuria seems to be resolving. She does have a Overton catheter draining brandon urine well today. She had an original urine culture and sensitivity done a few days ago, which was positive for Pseudomonas aeruginosa and her followup urine culture 2 days later showed no growth. This was around somewhere between 05/08/2017 and 05/11/2017. The patient had an abdominal pelvic CT done on 05/11/2017, which showed some enhancement of the right renal silhouette, suspicious for pyelonephritis and a similar finding on the left kidney. There was no evidence of any obstructive uropathy and no stones seen in the kidneys, ureters or bladder, and the bladder appeared to be unremarkable. There was no evidence of any ureteral stent on this study. It also showed pancolitis. She also has a PEG tube for feeding. The patient is unable to communicate at this time, and most of the history was obtained from review of the chart and the nursing staff. PHYSICAL EXAMINATION: GENERAL: Today, she is a well-developed, well-nourished female. She seems to be alert at this hour. ABDOMEN: Soft, not distended or tender, and there is no CVA tenderness and no suprapubic tenderness. LABORATORY DATA: Laboratory evaluation on 05/11/2017 shows a CBC, which shows WBC count of 11.5, hemoglobin of 8.1, and hematocrit of 25.3 with a platelet count of 111,000, indicating severe anemia and thrombocytopenia. Her chem profile shows sodium of 146, potassium 3.8, chloride 118, CO2 of 21, BUN and creatinine of 16 and 0.7 respectively with a GFR of greater than 60 indicating relatively normal renal function. Random glucose is 111. Calcium was 8.5 and magnesium 2.0. Last urinalysis on 05/08/2017 showed a light red color, turbid, pH of 6.0, specific gravity 1.010, protein 30, glucose 50, ketones negative, blood large, nitrite positive, bilirubin negative, urobilinogen 0.2 to 1.0. Leukocyte esterase large, rbc's 948, wbc clumps many, 242 wbc's, oxalate crystals few, and occasional bacteria and some budding yeast. PLAN: For this patient at this time would be just to obtain a urine cytology, which was sent and results are pending and just observation at this time and try to get some additional reports from [facility] indicating any urologic procedures done at that time, which would include cystoscopy with insertion of a right ureteral stent. Miles Stevens MD
[2017-05-12] MEDS: Proshield Plus GEL TOP SCH ×3 (00:44→16:03)
--- NOTE | 2017-05-12 06:43 | CP.PCM.PN ---
Subjective - Date & Time of Evaluation Date of Evaluation: 05/12/17 Time of Evaluation: 06:43 - Subjective Subjective: Ms. Yordy Schafer was seen and examined at the bedside. She is awake on mechanical ventilation via trach. She also has peg for feedings and medications. She is unable to follow simple commands such as turning her head from side to side in comparison from yesterday. She nod her head only once.She attempts to verbalize words which cause he to have coughing episodes. She remains unable to move both bilateral upper and lower extremities. She is also on the specialty bed ( [facility]). There was no untoward events overnight. Objective - Vital Signs/Intake and Output Vital Signs (last 24 hours): Temp Pulse Resp BP Pulse Ox 97.1 F L 114 H 18 128/81 100 05/12/17 04:59 05/12/17 04:59 05/12/17 04:59 05/12/17 04:59 05/12/17 04:59 Intake and Output: 05/11/17 05/12/17 18:59 06:59 Intake Total 1610 400 Output Total 1700 1600 Balance -90 -1200 - Medications Medications: Current Medications Acetaminophen (Tylenol 650 Mg Supp) 650 mg DE Q4 PRN PRN Reason: Fever >100.4 F Last Admin: 05/08/17 00:10 Dose: 650 mg Albuterol/Ipratropium (Duoneb 3 Mg/0.5 Mg (3 Ml) Ud) 3 ml INH RQ6 PRN PRN Reason: Shortness of Breath Last Admin: 05/08/17 19:40 Dose: 3 ml Albuterol/Ipratropium (Duoneb 3 Mg/0.5 Mg (3 Ml) Ud) 3 ml INH RQ4 PRN PRN Reason: Shortness of Breath Ascorbic Acid (Vitamin C 250 Mg Tab) 250 mg PO DAILY [facility] Last Admin: 05/11/17 08:59 Dose: 250 mg Cholestyramine Resin (Questran) 4 gm PO DAILY [facility] Last Admin: 05/11/17 08:58 Dose: 4 gm Collagenase (Santyl) 1 applic TOP Q12 [facility] Last Admin: 05/11/17 20:32 Dose: 1 applic Diltiazem HCl (Cardizem) 30 mg NG TID [facility] Last Admin: 05/11/17 15:59 Dose: 30 mg Dimethicone (Proshield Plus Skin Protectant) 1 applic TOP Q8 [facility] Last Admin: 05/12/17 00:44 Dose: 1 applic Lacosamide 100 mg/ Sodium (Chloride) 110 mls @ 110 mls/hr IVPB Q12@0800,2000 [facility] Last Admin: 05/11/17 20:24 Dose: 110 mls/hr Ceftazidime/Avibactam 2.5 gm/ (Sodium Chloride) 100 mls @ 100 mls/hr IVPB Q8H [facility] PRN Reason: Protocol Last Admin: 05/12/17 00:43 Dose: 100 mls/hr Vancomycin HCl 1 gm/ Sodium (Chloride) 250 mls @ 250 mls/hr IVPB Q12H [facility] PRN Reason: Protocol Last Admin: 05/11/17 20:32 Dose: 250 mls/hr Lactobacillus Acidophilus (Bacid Acidophilus) 1 cap PO BID [facility] Last Admin: 05/11/17 15:59 Dose: 1 cap Magnesium Oxide (Mag-Ox) 400 mg PO BID [facility] Last Admin: 05/11/17 16:00 Dose: 400 mg Pantoprazole Sodium (Protonix Susp) 40 mg NG DAILY [facility] Last Admin: 05/11/17 08:58 Dose: 40 mg Potassium Chloride (Potassium Chloride Oral Soln) 40 meq NG BID [facility] Last Admin: 05/11/17 16:01 Dose: 40 meq Thiamine HCl (Vitamin B1 Tab) 100 mg PO DAILY [facility] Last Admin: 05/11/17 08:59 Dose: 100 mg Zinc Sulfate (Zinc Sulfate 220 Mg Cap) 220 mg PO DAILY [facility] Last Admin: 05/11/17 08:59 Dose: 220 mg - Labs Labs: 05/11/17 09:45 05/11/17 09:45 PT 14.2 Seconds (9.8-13.1) H 05/08/17 10:34 INR 1.3 (0.9-1.2) H 05/08/17 10:34 APTT 23.5 Seconds (25.6-37.1) L 05/08/17 10:34 - Constitutional Appears: No Acute Distress - Head Exam Head Exam: ATRAUMATIC - Neurological Exam Neurological Exam: Awake Neuro motor strength exam: Left Upper Extremity: 0, Right Upper Extremity: 0, Left Lower Extremity: 0, Right Lower Extremity: 0 Additional comments: She nods her head only once, attempted to verbalize words, but.unable to turn her head from side to side. Assessment and Plan (1) Seizure Assessment & Plan: Case discussed with Dr. Blanco, continue all current medical regimen. Pending result of echocardiogram. Status: Acute
[2017-05-12] MEDS: Magnesium Oxide 400 mg Tab UD PO SCH ×2 (08:41→16:04)
[2017-05-12] MEDS: Lactobacillus Acidophilus 500 MU Cap PO SCH ×2 (08:41→16:02)
[2017-05-12] MEDS: Pantoprazole 40 mg Susp UD NG SCH (08:44)
[2017-05-12] MEDS: Santyl Collagenase OINTMENT TOP SCH ×2 (08:44→20:29)
[2017-05-12] MEDS: Cholestyramine 4 gm/Pkt UD PO SCH (08:44)
[2017-05-12] MEDS: Potassium Chloride 20 mEq/15 ml LIQ UD NG SCH ×2 (08:44→16:03)
[2017-05-12] MEDS: Lacosamide 200mg/20ml 100 MG in Sodium Chloride 0.9% 100 ML IVPB SCH ×2 (10:21→20:27)
--- NOTE | 2017-05-12 10:25 | CP.PCM.PN ---
Subjective - Date & Time of Evaluation Date of Evaluation: 05/12/17 Time of Evaluation: 10:23 - Subjective Subjective: Patient more awake. She remained on mechanical ventilator. Electrolyte has not been reported yet I'm not sure if it was done. To do BMP if not done. Follow up on the potassium and electrolyte As of yesterday the potassium magnesium has been corrected. Objective - Vital Signs/Intake and Output Vital Signs (last 24 hours): Temp Pulse Resp BP Pulse Ox 99.0 F 110 H 18 131/77 100 05/12/17 08:08 05/12/17 08:41 05/12/17 08:08 05/12/17 08:08 05/12/17 08:08 Intake and Output: 05/12/17 05/12/17 06:59 18:59 Intake Total 400 Output Total 1600 Balance -1200 - Medications Medications: Current Medications Acetaminophen (Tylenol 650 Mg Supp) 650 mg [place] Q4 PRN PRN Reason: Fever >100.4 F Last Admin: 05/08/17 00:10 Dose: 650 mg Albuterol/Ipratropium (Duoneb 3 Mg/0.5 Mg (3 Ml) Ud) 3 ml INH RQ6 PRN PRN Reason: Shortness of Breath Last Admin: 05/08/17 19:40 Dose: 3 ml Albuterol/Ipratropium (Duoneb 3 Mg/0.5 Mg (3 Ml) Ud) 3 ml INH RQ4 PRN PRN Reason: Shortness of Breath Ascorbic Acid (Vitamin C 250 Mg Tab) 250 mg PO DAILY [facility] Last Admin: 05/11/17 08:59 Dose: 250 mg Cholestyramine Resin (Questran) 4 gm PO DAILY [facility] Last Admin: 05/12/17 08:44 Dose: 4 gm Collagenase (Santyl) 1 applic TOP Q12 [facility] Last Admin: 05/12/17 08:44 Dose: 1 applic Diltiazem HCl (Cardizem) 30 mg NG TID [facility] Last Admin: 05/12/17 08:41 Dose: 30 mg Dimethicone (Proshield Plus Skin Protectant) 1 applic TOP Q8 [facility] Last Admin: 05/12/17 08:45 Dose: 1 applic Lacosamide 100 mg/ Sodium (Chloride) 110 mls @ 110 mls/hr IVPB Q12@0800,2000 [facility] Last Admin: 05/12/17 10:21 Dose: 110 mls/hr Ceftazidime/Avibactam 2.5 gm/ (Sodium Chloride) 100 mls @ 100 mls/hr IVPB Q8H [facility] PRN Reason: Protocol Last Admin: 05/12/17 10:21 Dose: 100 mls/hr Vancomycin HCl 1 gm/ Sodium (Chloride) 250 mls @ 250 mls/hr IVPB Q12H [facility] PRN Reason: Protocol Last Admin: 05/12/17 08:47 Dose: 250 mls/hr Lactobacillus Acidophilus (Bacid Acidophilus) 1 cap PO BID [facility] Last Admin: 05/12/17 08:41 Dose: 1 cap Magnesium Oxide (Mag-Ox) 400 mg PO BID [facility] Last Admin: 05/12/17 08:41 Dose: 400 mg Pantoprazole Sodium (Protonix Susp) 40 mg NG DAILY [facility] Last Admin: 05/12/17 08:44 Dose: 40 mg Potassium Chloride (Potassium Chloride Oral Soln) 40 meq NG BID [facility] Last Admin: 05/12/17 08:44 Dose: 40 meq Thiamine HCl (Vitamin B1 Tab) 100 mg PO DAILY [facility] Last Admin: 05/12/17 08:44 Dose: 100 mg Zinc Sulfate (Zinc Sulfate 220 Mg Cap) 220 mg PO DAILY [facility] Last Admin: 05/12/17 08:43 Dose: 220 mg - Labs Labs: 05/11/17 09:45 05/11/17 09:45 PT 14.2 Seconds (9.8-13.1) H 05/08/17 10:34 INR 1.3 (0.9-1.2) H 05/08/17 10:34 APTT 23.5 Seconds (25.6-37.1) L 05/08/17 10:34 Assessment and Plan (1) Acute renal injury due to circulatory failure Status: Acute (2) Altered mental status Status: Acute (3) GI bleed Status: Acute
--- NOTE | 2017-05-12 14:55 | CP.PCM.PN ---
Subjective - Date & Time of Evaluation Date of Evaluation: 05/12/17 Time of Evaluation: 09:30 - Subjective Subjective: F/U Respiratory Failure. [place] able to follow with head movement conversation from , on CPAP-PS Objective - Vital Signs/Intake and Output Vital Signs (last 24 hours): Temp Pulse Resp BP Pulse Ox 98.8 F 115 H 18 122/80 100 05/12/17 11:57 05/12/17 12:41 05/12/17 11:57 05/12/17 12:41 05/12/17 11:57 Intake and Output: 05/12/17 05/12/17 06:59 18:59 Intake Total 400 Output Total 1600 Balance -1200 - Medications Medications: Current Medications Acetaminophen (Tylenol 650 Mg Supp) 650 mg [place] Q4 PRN PRN Reason: Fever >100.4 F Last Admin: 05/08/17 00:10 Dose: 650 mg Albuterol/Ipratropium (Duoneb 3 Mg/0.5 Mg (3 Ml) Ud) 3 ml INH RQ6 PRN PRN Reason: Shortness of Breath Last Admin: 05/08/17 19:40 Dose: 3 ml Albuterol/Ipratropium (Duoneb 3 Mg/0.5 Mg (3 Ml) Ud) 3 ml INH RQ4 PRN PRN Reason: Shortness of Breath Ascorbic Acid (Vitamin C 250 Mg Tab) 250 mg PO DAILY [facility] Last Admin: 05/12/17 12:40 Dose: 250 mg Cholestyramine Resin (Questran) 4 gm PO DAILY [facility] Last Admin: 05/12/17 08:44 Dose: 4 gm Collagenase (Santyl) 1 applic TOP Q12 [facility] Last Admin: 05/12/17 08:44 Dose: 1 applic Diltiazem HCl (Cardizem) 30 mg NG TID [facility] Last Admin: 05/12/17 12:41 Dose: 30 mg Dimethicone (Proshield Plus Skin Protectant) 1 applic TOP Q8 [facility] Last Admin: 05/12/17 08:45 Dose: 1 applic Lacosamide 100 mg/ Sodium (Chloride) 110 mls @ 110 mls/hr IVPB Q12@0800,2000 [facility] Last Admin: 05/12/17 10:21 Dose: 110 mls/hr Ceftazidime/Avibactam 2.5 gm/ (Sodium Chloride) 100 mls @ 100 mls/hr IVPB Q8H [facility] PRN Reason: Protocol Last Admin: 05/12/17 10:21 Dose: 100 mls/hr Vancomycin HCl 1 gm/ Sodium (Chloride) 250 mls @ 250 mls/hr IVPB Q12H [facility] PRN Reason: Protocol Last Admin: 05/12/17 08:47 Dose: 250 mls/hr Lactobacillus Acidophilus (Bacid Acidophilus) 1 cap PO BID [facility] Last Admin: 05/12/17 08:41 Dose: 1 cap Magnesium Oxide (Mag-Ox) 400 mg PO BID [facility] Last Admin: 05/12/17 08:41 Dose: 400 mg Pantoprazole Sodium (Protonix Susp) 40 mg NG DAILY [facility] Last Admin: 05/12/17 08:44 Dose: 40 mg Potassium Chloride (Potassium Chloride Oral Soln) 40 meq NG BID [facility] Last Admin: 05/12/17 08:44 Dose: 40 meq Thiamine HCl (Vitamin B1 Tab) 100 mg PO DAILY [facility] Last Admin: 05/12/17 08:44 Dose: 100 mg Zinc Sulfate (Zinc Sulfate 220 Mg Cap) 220 mg PO DAILY [facility] Last Admin: 05/12/17 08:43 Dose: 220 mg - Labs Labs: 05/11/17 09:45 05/11/17 09:45 PT 14.2 Seconds (9.8-13.1) H 05/08/17 10:34 INR 1.3 (0.9-1.2) H 05/08/17 10:34 APTT 23.5 Seconds (25.6-37.1) L 05/08/17 10:34 - Constitutional Appears: Chronically Ill - Head Exam Head Exam: NORMAL INSPECTION - Eye Exam Eye Exam: PERRL - ENT Exam Additional comments: Intubated - Neck Exam Neck Exam: Normal Inspection - Respiratory Exam Respiratory Exam: Decreased Breath Sounds (at bases), Rhonchi (scattered) - Cardiovascular Exam Cardiovascular Exam: REGULAR RHYTHM - GI/Abdominal Exam GI & Abdominal Exam: Soft, Normal Bowel Sounds Additional comments: PEG - Extremities Exam Additional comments: L heel DTI, R lateral ankle healing, MSAD posterior thigh. - Back Exam Additional comments: MSAD Sacrum, buttock, R flank - Neurological Exam Additional comments: Unable to move, non verbal, follows with head verbal stimuli. - Skin Skin Exam: Warm Assessment and Plan (1) Acute respiratory failure Status: Acute (2) Status post tracheostomy Status: Acute (3) Shock Status: Deleted (4) Pneumonia Status: Acute (5) Acute renal failure (ARF) Status: Acute (6) Anemia Status: Acute (7) Hematuria, gross Status: Deleted (8) Thrombocytopenia Status: Resolved (9) History of pulmonary embolus (PE) Status: Acute (10) Pancolitis Status: Deleted (11) UTI (urinary tract infection) Assessment & Plan: Psudomona Status: Acute - Assessment and Plan (Free Text) Plan: On CPAP , PS , MASD R Flank, Sacrum, buttock with improvement on Santyl , Clinitron bed, Tachycardia , on Cardizem , Toprol , f/u Cardiology clearance for Colostomy , UTI Pseudomona on Avicaz.
[2017-05-13] MEDS: Proshield Plus GEL TOP SCH ×3 (00:23→18:19)
--- NOTE | 2017-05-13 05:03 | CP.PCM.PN ---
Subjective - Date & Time of Evaluation Date of Evaluation: 05/12/17 Time of Evaluation: 18:00 - Subjective Subjective: preop evaluation for colostomy prolonged hospitalization echo shows EF of 40-45% patient at moderate risk for perioperative cardiac event will discuss with surgery remains tachycardic ccb added for bp/hr control Objective - Vital Signs/Intake and Output Vital Signs (last 24 hours): Temp Pulse Resp BP Pulse Ox 99.6 F 118 H 18 121/89 100 05/13/17 00:25 05/13/17 00:25 05/13/17 00:25 05/13/17 00:25 05/13/17 00:25 Intake and Output: 05/12/17 05/13/17 18:59 06:59 Intake Total 1770 Output Total 1200 Balance 570 - Medications Medications: Current Medications Acetaminophen (Tylenol 650 Mg Supp) 650 mg [place] Q4 PRN PRN Reason: Fever >100.4 F Last Admin: 05/08/17 00:10 Dose: 650 mg Albuterol/Ipratropium (Duoneb 3 Mg/0.5 Mg (3 Ml) Ud) 3 ml INH RQ6 PRN PRN Reason: Shortness of Breath Last Admin: 05/08/17 19:40 Dose: 3 ml Albuterol/Ipratropium (Duoneb 3 Mg/0.5 Mg (3 Ml) Ud) 3 ml INH RQ4 PRN PRN Reason: Shortness of Breath Ascorbic Acid (Vitamin C 250 Mg Tab) 250 mg PO DAILY [facility] Last Admin: 05/12/17 12:40 Dose: 250 mg Cholestyramine Resin (Questran) 4 gm PO DAILY [facility] Last Admin: 05/12/17 08:44 Dose: 4 gm Collagenase (Santyl) 1 applic TOP Q12 [facility] Last Admin: 05/12/17 20:29 Dose: 1 applic Diltiazem HCl (Cardizem) 60 mg PO Q8 [facility] Last Admin: 05/13/17 00:17 Dose: 60 mg Dimethicone (Proshield Plus Skin Protectant) 1 applic TOP Q8 [facility] Last Admin: 05/13/17 00:23 Dose: 1 applic Lacosamide 100 mg/ Sodium (Chloride) 110 mls @ 110 mls/hr IVPB Q12@0800,2000 [facility] Last Admin: 05/12/17 20:27 Dose: 110 mls/hr Ceftazidime/Avibactam 2.5 gm/ (Sodium Chloride) 100 mls @ 100 mls/hr IVPB Q8H [facility] PRN Reason: Protocol Last Admin: 05/13/17 01:39 Dose: 100 mls/hr Vancomycin HCl 1 gm/ Sodium (Chloride) 250 mls @ 250 mls/hr IVPB Q12H [facility] PRN Reason: Protocol Last Admin: 05/12/17 20:28 Dose: 250 mls/hr Lactobacillus Acidophilus (Bacid Acidophilus) 1 cap PO BID [facility] Last Admin: 05/12/17 16:02 Dose: 1 cap Magnesium Oxide (Mag-Ox) 400 mg PO BID [facility] Last Admin: 05/12/17 16:04 Dose: 400 mg Pantoprazole Sodium (Protonix Susp) 40 mg NG DAILY [facility] Last Admin: 05/12/17 08:44 Dose: 40 mg Potassium Chloride (Potassium Chloride Oral Soln) 40 meq NG BID [facility] Last Admin: 05/12/17 16:03 Dose: 40 meq Thiamine HCl (Vitamin B1 Tab) 100 mg PO DAILY [facility] Last Admin: 05/12/17 08:44 Dose: 100 mg Zinc Sulfate (Zinc Sulfate 220 Mg Cap) 220 mg PO DAILY [facility] Last Admin: 05/12/17 08:43 Dose: 220 mg - Labs Labs: 05/11/17 09:45 05/11/17 09:45 PT 14.2 Seconds (9.8-13.1) H 05/08/17 10:34 INR 1.3 (0.9-1.2) H 05/08/17 10:34 APTT 23.5 Seconds (25.6-37.1) L 05/08/17 10:34 - Constitutional Appears: In Acute Distress, Chronically Ill - Eye Exam Eye Exam: EOMI, PERRL Pupil Exam: NORMAL ACCOMODATION - ENT Exam ENT Exam: Mucous Membranes Dry - Respiratory Exam Respiratory Exam: Clear to Ausculation Bilateral, Rales - Cardiovascular Exam Cardiovascular Exam: Tachycardia, +S1, +S2, Murmur - GI/Abdominal Exam GI & Abdominal Exam: Soft, Normal Bowel Sounds - Extremities Exam Extremities Exam: Full ROM, Normal Inspection - Back Exam Back Exam: NORMAL INSPECTION - Neurological Exam Neurological Exam: Alert, Awake - Psychiatric Exam Psychiatric exam: Normal Affect, Normal Mood Assessment and Plan (1) CHF (congestive heart failure) Assessment & Plan: apical hypokinesis with mild LV systolic dysfunction add bb check BNP Status: Acute (2) Hypotension Assessment & Plan: preload dependency with element of sepsis echo shows mild LV systolic dysfuction Status: Acute (3) Tachycardia Assessment & Plan: cont ccb add bb Status: Acute (4) Preop cardiovascular exam Assessment & Plan: atleast moderate risk for perioperative event will discuss with add BB Status: Acute (5) Septic shock Assessment & Plan: abx per primary team Status: Acute
--- NOTE | 2017-05-13 05:10 | CP.PCM.PN ---
Subjective - Date & Time of Evaluation Date of Evaluation: 05/13/17 Time of Evaluation: 05:08 - Subjective Subjective: HR better on CCB chronically debilitated awake and responsive on vent BP stable Objective - Vital Signs/Intake and Output Vital Signs (last 24 hours): Temp Pulse Resp BP Pulse Ox 99.6 F 118 H 18 121/89 100 05/13/17 00:25 05/13/17 00:25 05/13/17 00:25 05/13/17 00:25 05/13/17 00:25 Intake and Output: 05/12/17 05/13/17 18:59 06:59 Intake Total 1770 Output Total 1200 Balance 570 - Medications Medications: Current Medications Acetaminophen (Tylenol 650 Mg Supp) 650 mg [place] Q4 PRN PRN Reason: Fever >100.4 F Last Admin: 05/08/17 00:10 Dose: 650 mg Albuterol/Ipratropium (Duoneb 3 Mg/0.5 Mg (3 Ml) Ud) 3 ml INH RQ6 PRN PRN Reason: Shortness of Breath Last Admin: 05/08/17 19:40 Dose: 3 ml Albuterol/Ipratropium (Duoneb 3 Mg/0.5 Mg (3 Ml) Ud) 3 ml INH RQ4 PRN PRN Reason: Shortness of Breath Ascorbic Acid (Vitamin C 250 Mg Tab) 250 mg PO DAILY [facility] Last Admin: 05/12/17 12:40 Dose: 250 mg Cholestyramine Resin (Questran) 4 gm PO DAILY [facility] Last Admin: 05/12/17 08:44 Dose: 4 gm Collagenase (Santyl) 1 applic TOP Q12 [facility] Last Admin: 05/12/17 20:29 Dose: 1 applic Diltiazem HCl (Cardizem) 60 mg PO Q8 [facility] Last Admin: 05/13/17 00:17 Dose: 60 mg Dimethicone (Proshield Plus Skin Protectant) 1 applic TOP Q8 [facility] Last Admin: 05/13/17 00:23 Dose: 1 applic Lacosamide 100 mg/ Sodium (Chloride) 110 mls @ 110 mls/hr IVPB Q12@0800,2000 [facility] Last Admin: 05/12/17 20:27 Dose: 110 mls/hr Ceftazidime/Avibactam 2.5 gm/ (Sodium Chloride) 100 mls @ 100 mls/hr IVPB Q8H [facility] PRN Reason: Protocol Last Admin: 05/13/17 01:39 Dose: 100 mls/hr Vancomycin HCl 1 gm/ Sodium (Chloride) 250 mls @ 250 mls/hr IVPB Q12H [facility] PRN Reason: Protocol Last Admin: 05/12/17 20:28 Dose: 250 mls/hr Lactobacillus Acidophilus (Bacid Acidophilus) 1 cap PO BID [facility] Last Admin: 05/12/17 16:02 Dose: 1 cap Magnesium Oxide (Mag-Ox) 400 mg PO BID [facility] Last Admin: 05/12/17 16:04 Dose: 400 mg Pantoprazole Sodium (Protonix Susp) 40 mg NG DAILY [facility] Last Admin: 05/12/17 08:44 Dose: 40 mg Potassium Chloride (Potassium Chloride Oral Soln) 40 meq NG BID [facility] Last Admin: 05/12/17 16:03 Dose: 40 meq Thiamine HCl (Vitamin B1 Tab) 100 mg PO DAILY [facility] Last Admin: 05/12/17 08:44 Dose: 100 mg Zinc Sulfate (Zinc Sulfate 220 Mg Cap) 220 mg PO DAILY [facility] Last Admin: 05/12/17 08:43 Dose: 220 mg - Labs Labs: 05/11/17 09:45 05/11/17 09:45 PT 14.2 Seconds (9.8-13.1) H 05/08/17 10:34 INR 1.3 (0.9-1.2) H 05/08/17 10:34 APTT 23.5 Seconds (25.6-37.1) L 05/08/17 10:34 - Constitutional Appears: Chronically Ill - Head Exam Head Exam: ATRAUMATIC, NORMAL INSPECTION - Eye Exam Eye Exam: EOMI, Normal appearance - ENT Exam ENT Exam: Mucous Membranes Moist - Neck Exam Neck Exam: Full ROM - Respiratory Exam Respiratory Exam: Rales, NORMAL BREATHING PATTERN - Cardiovascular Exam Cardiovascular Exam: Tachycardia, REGULAR RHYTHM, +S1, +S2, Murmur - GI/Abdominal Exam GI & Abdominal Exam: Soft - Extremities Exam Extremities Exam: Normal Capillary Refill - Neurological Exam Neurological Exam: Alert, Awake, Oriented x3 - Psychiatric Exam Psychiatric exam: Depressed, Flat Affect Assessment and Plan (1) CHF (congestive heart failure) Assessment & Plan: add BB check bnp Status: Acute (2) Hypotension Assessment & Plan: 2' to preload dependency maintain euvolemia abx for sepsis Status: Acute (3) Tachycardia Assessment & Plan: cont ccb add low dose BB Status: Acute (4) Preop cardiovascular exam Assessment & Plan: EF 40-45% with apical hypokinesis chronically debilitated mets < 4 will need ischemic evaluation prior to prolonged surgery Status: Acute (5) Septic shock Status: Acute
[2017-05-13 05:18] LABS: MEAN CELL VOLUME 88.5 fl (81.0-99.0); MEAN CORPUSCULAR HGB CONC 31.7 g/dL (33.0-37.0); RED CELL DISTRIBUTION WIDTH 18.2 % (11.5-14.5); WHITE BLOOD COUNT 14.6 K/uL (4.8-10.8)
[2017-05-13 06:16] LABS: BLOOD UREA NITROGEN 27 mg/dl (7-17); CARBON DIOXIDE 21 mmol/L (22-30); CHLORIDE 122 mmol/L (98-107); GFR AFRICAN-AMERICAN > 60; GLUCOSE,RANDOM 108 mg/dL (65-105); SODIUM 153 mmol/l (132-148)
--- NOTE | 2017-05-13 07:19 | CP.PCM.PN ---
Subjective - Date & Time of Evaluation Date of Evaluation: 05/13/17 Time of Evaluation: 07:15 - Subjective Subjective: Ms. Yordy Schafer was seen and examined at the bedside. She opens her eyes with verbal cues, nods only once. She remains on mechanical ventilation via trach and with peg feeding. She unable to participate more with assessment in comparison to previous examination.She in on specialty bed for her decubiti. Her heart rate is [id number]'s on cardizem. There was no untoward events overnight. Objective - Vital Signs/Intake and Output Vital Signs (last 24 hours): Temp Pulse Resp BP Pulse Ox 98.9 F 119 H 18 114/80 100 05/13/17 05:31 05/13/17 05:31 05/13/17 05:31 05/13/17 05:31 05/13/17 05:31 Intake and Output: 05/13/17 05/13/17 06:59 18:59 Intake Total 1520 Output Total 1000 Balance 520 - Medications Medications: Current Medications Acetaminophen (Tylenol 650 Mg Supp) 650 mg [place] Q4 PRN PRN Reason: Fever >100.4 F Last Admin: 05/08/17 00:10 Dose: 650 mg Albuterol/Ipratropium (Duoneb 3 Mg/0.5 Mg (3 Ml) Ud) 3 ml INH RQ6 PRN PRN Reason: Shortness of Breath Last Admin: 05/08/17 19:40 Dose: 3 ml Albuterol/Ipratropium (Duoneb 3 Mg/0.5 Mg (3 Ml) Ud) 3 ml INH RQ4 PRN PRN Reason: Shortness of Breath Ascorbic Acid (Vitamin C 250 Mg Tab) 250 mg PO DAILY [facility] Last Admin: 05/12/17 12:40 Dose: 250 mg Cholestyramine Resin (Questran) 4 gm PO DAILY [facility] Last Admin: 05/12/17 08:44 Dose: 4 gm Collagenase (Santyl) 1 applic TOP Q12 [facility] Last Admin: 05/12/17 20:29 Dose: 1 applic Diltiazem HCl (Cardizem) 60 mg PO Q8 [facility] Last Admin: 05/13/17 00:17 Dose: 60 mg Dimethicone (Proshield Plus Skin Protectant) 1 applic TOP Q8 [facility] Last Admin: 05/13/17 00:23 Dose: 1 applic Lacosamide 100 mg/ Sodium (Chloride) 110 mls @ 110 mls/hr IVPB Q12@0800,2000 [facility] Last Admin: 05/12/17 20:27 Dose: 110 mls/hr Ceftazidime/Avibactam 2.5 gm/ (Sodium Chloride) 100 mls @ 100 mls/hr IVPB Q8H [facility] PRN Reason: Protocol Last Admin: 05/13/17 01:39 Dose: 100 mls/hr Vancomycin HCl 1 gm/ Sodium (Chloride) 250 mls @ 250 mls/hr IVPB Q12H [facility] PRN Reason: Protocol Last Admin: 05/12/17 20:28 Dose: 250 mls/hr Lactobacillus Acidophilus (Bacid Acidophilus) 1 cap PO BID [facility] Last Admin: 05/12/17 16:02 Dose: 1 cap Magnesium Oxide (Mag-Ox) 400 mg PO BID [facility] Last Admin: 05/12/17 16:04 Dose: 400 mg Metoprolol Succinate (Toprol Xl) 50 mg PO DAILY [facility] Pantoprazole Sodium (Protonix Susp) 40 mg NG DAILY [facility] Last Admin: 05/12/17 08:44 Dose: 40 mg Potassium Chloride (Potassium Chloride Oral Soln) 40 meq NG BID [facility] Last Admin: 05/12/17 16:03 Dose: 40 meq Thiamine HCl (Vitamin B1 Tab) 100 mg PO DAILY [facility] Last Admin: 05/12/17 08:44 Dose: 100 mg Zinc Sulfate (Zinc Sulfate 220 Mg Cap) 220 mg PO DAILY [facility] Last Admin: 05/12/17 08:43 Dose: 220 mg - Labs Labs: 05/13/17 04:35 05/13/17 04:35 PT 14.2 Seconds (9.8-13.1) H 05/08/17 10:34 INR 1.3 (0.9-1.2) H 05/08/17 10:34 APTT 23.5 Seconds (25.6-37.1) L 05/08/17 10:34 - Constitutional Appears: No Acute Distress - Head Exam Head Exam: ATRAUMATIC - Neurological Exam Neurological Exam: Awake Neuro motor strength exam: Left Upper Extremity: 0, Right Upper Extremity: 0, Left Lower Extremity: 0, Right Lower Extremity: 0 Additional comments: She has minimal participation with neuro this am. She opens her eyes with verbal cues, still unable to move all bilateral upper and lower extremities. Assessment and Plan (1) Seizure Assessment & Plan: Case discussed with Dr. Blanco, continue all current medical regimen, With electrolytes imbalance, please refer to primary or nephrology. There is no new recommendations from neurology. Status: Acute
[2017-05-13] MEDS: Albuterol-Ipratrop 3 mg / 0.5 (3 ml) UD INH PRN (08:12)
[2017-05-13] MEDS ORDERED: Metoprolol Succinate 50 mg XL Tab PO SCH (09:00)
[2017-05-13] MEDS: WATER IVPB SCH ×4 (09:51→20:08)
[2017-05-13] MEDS: LACOSAMIDE IVPB SCH ×2 (09:51→20:08)
[2017-05-13] MEDS: DEXTROSE 5% IVPB SCH ×4 (09:51→20:08)
[2017-05-13] MEDS: Magnesium Oxide 400 mg Tab UD PO SCH ×2 (09:52→17:26)
[2017-05-13] MEDS: Santyl Collagenase OINTMENT TOP SCH ×2 (09:52→20:33)
[2017-05-13] MEDS: Cholestyramine 4 gm/Pkt UD PO SCH (09:52)
[2017-05-13] MEDS: AVIBACTAM IVPB SCH ×2 (09:53→17:18)
[2017-05-13] MEDS: Pantoprazole 40 mg Susp UD NG SCH (09:53)
[2017-05-13] MEDS: CEFTAZIDIME IVPB SCH ×2 (09:53→17:18)
[2017-05-13] MEDS: Lactobacillus Acidophilus 500 MU Cap PO SCH ×2 (09:58→17:25)
[2017-05-13] MEDS: Potassium Chloride 20 mEq/15 ml LIQ UD NG SCH (09:59)
[2017-05-13] MEDS: Vancomycin 1 GM in Dextrose 5% In Water 250 ML IVPB SCH ×2 (10:52→20:09)
[2017-05-13] MEDS: Albuterol-Ipratrop 3 mg / 0.5 (3 ml) UD INH SCH ×4 (11:37→23:56)
--- NOTE | 2017-05-13 11:52 | CP.PCM.PN ---
Subjective - Date & Time of Evaluation Date of Evaluation: 05/13/17 Time of Evaluation: 11:49 - Subjective Subjective: No significant changes clinically patient remained on ventilator.. Pending her eyes and responding somewhat. Objective - Vital Signs/Intake and Output Vital Signs (last 24 hours): Temp Pulse Resp BP Pulse Ox 98.2 F 123 H 20 134/89 100 05/13/17 08:00 05/13/17 09:53 05/13/17 08:00 05/13/17 09:53 05/13/17 08:00 Intake and Output: 05/13/17 05/13/17 06:59 18:59 Intake Total 1520 Output Total 1000 Balance 520 - Medications Medications: Current Medications Acetaminophen (Tylenol 650 Mg Supp) 650 mg [place] Q4 PRN PRN Reason: Fever >100.4 F Last Admin: 05/08/17 00:10 Dose: 650 mg Albuterol/Ipratropium (Duoneb 3 Mg/0.5 Mg (3 Ml) Ud) 3 ml INH RQ6 PRN PRN Reason: Shortness of Breath Last Admin: 05/13/17 08:12 Dose: 3 ml Albuterol/Ipratropium (Duoneb 3 Mg/0.5 Mg (3 Ml) Ud) 3 ml INH RQ4 [facility] Last Admin: 05/13/17 11:37 Dose: 3 ml Ascorbic Acid (Vitamin C 250 Mg Tab) 250 mg PO DAILY [facility] Last Admin: 05/13/17 09:52 Dose: 250 mg Cholestyramine Resin (Questran) 4 gm PO DAILY [facility] Last Admin: 05/13/17 09:52 Dose: 4 gm Collagenase (Santyl) 1 applic TOP Q12 [facility] Last Admin: 05/13/17 09:52 Dose: 1 applic Diltiazem HCl (Cardizem) 60 mg PO Q8 [facility] Last Admin: 05/13/17 09:53 Dose: 60 mg Dimethicone (Proshield Plus Skin Protectant) 1 applic TOP Q8 [facility] Last Admin: 05/13/17 10:00 Dose: 1 applic Lacosamide 100 mg/ Dextrose 110 mls @ 110 mls/hr IVPB Q12@0800,2000 [facility] Last Admin: 05/13/17 09:51 Dose: 110 mls/hr Ceftazidime/Avibactam 2.5 gm/ (Dextrose) 100 mls @ 100 mls/hr IVPB Q8H [facility] PRN Reason: Protocol Last Admin: 05/13/17 09:53 Dose: 100 mls/hr Vancomycin HCl 1 gm/ Dextrose 250 mls @ 166.667 mls/hr IVPB Q12H [facility] PRN Reason: Protocol Last Admin: 05/13/17 10:52 Dose: 166.667 mls/hr Lactobacillus Acidophilus (Bacid Acidophilus) 1 cap PO BID [facility] Last Admin: 05/13/17 09:58 Dose: 1 cap Magnesium Oxide (Mag-Ox) 400 mg PO BID [facility] Last Admin: 05/13/17 09:52 Dose: 400 mg Metoprolol Succinate (Toprol Xl) 50 mg PO DAILY [facility] Pantoprazole Sodium (Protonix Susp) 40 mg NG DAILY [facility] Last Admin: 05/13/17 09:53 Dose: 40 mg Potassium Chloride (Potassium Chloride Oral Soln) 40 meq NG DAILY [facility] Thiamine HCl (Vitamin B1 Tab) 100 mg PO DAILY [facility] Last Admin: 05/13/17 09:53 Dose: 100 mg Zinc Sulfate (Zinc Sulfate 220 Mg Cap) 220 mg PO DAILY [facility] Last Admin: 05/13/17 09:53 Dose: 220 mg - Labs Labs: 05/13/17 04:35 05/13/17 04:35 PT 14.2 Seconds (9.8-13.1) H 05/08/17 10:34 INR 1.3 (0.9-1.2) H 05/08/17 10:34 APTT 23.5 Seconds (25.6-37.1) L 05/08/17 10:34 - Constitutional Appears: No Acute Distress - ENT Exam ENT Exam: Mucous Membranes Moist - Neck Exam Neck Exam: absent: Lymphadenopathy - Respiratory Exam Respiratory Exam: Rhonchi. absent: Chest Wall Tenderness - Cardiovascular Exam Cardiovascular Exam: absent: REGULAR RHYTHM, JVD, Rubs - Extremities Exam Extremities Exam: absent: Calf Tenderness - Back Exam Back Exam: absent: CVA tenderness (L), CVA tenderness (R) - Neurological Exam Neurological Exam: Altered - Skin Skin Exam: absent: Cyanosis Assessment and Plan (1) Acute renal injury due to circulatory failure Assessment & Plan: Patient has electrolyte imbalance today manifested with hypernatremia serum sodium going up. And hyperchloremia However serum potassium 5.0. The plan As discussed with the nurse practitioner note change old the medics of IV fluid to D5W which has been medics was normal saline over 1000 mL a day. The next step to give water through the NG tube feeding 4 times a day And repeat electrolytes tomorrow. Status: Acute (2) Altered mental status Status: Acute (3) GI bleed Status: Acute
--- NOTE | 2017-05-13 14:49 | CP.PCM.PN ---
Subjective - Date & Time of Evaluation Date of Evaluation: 05/13/17 Time of Evaluation: 15:00 - Subjective Subjective: F/U Respiratory failure Pt awake, following conversation with eyes. Objective - Vital Signs/Intake and Output Vital Signs (last 24 hours): Temp Pulse Resp BP Pulse Ox 99 F 121 H 20 116/78 99 05/13/17 13:00 05/13/17 13:00 05/13/17 13:00 05/13/17 13:00 05/13/17 13:00 Intake and Output: 05/13/17 05/13/17 06:59 18:59 Intake Total 1520 Output Total 1000 Balance 520 - Medications Medications: Current Medications Acetaminophen (Tylenol 650 Mg Supp) 650 mg [place] Q4 PRN PRN Reason: Fever >100.4 F Last Admin: 05/08/17 00:10 Dose: 650 mg Albuterol/Ipratropium (Duoneb 3 Mg/0.5 Mg (3 Ml) Ud) 3 ml INH RQ6 PRN PRN Reason: Shortness of Breath Last Admin: 05/13/17 08:12 Dose: 3 ml Albuterol/Ipratropium (Duoneb 3 Mg/0.5 Mg (3 Ml) Ud) 3 ml INH RQ4 [facility] Last Admin: 05/13/17 11:37 Dose: 3 ml Ascorbic Acid (Vitamin C 250 Mg Tab) 250 mg PO DAILY [facility] Last Admin: 05/13/17 09:52 Dose: 250 mg Cholestyramine Resin (Questran) 4 gm PO DAILY [facility] Last Admin: 05/13/17 09:52 Dose: 4 gm Collagenase (Santyl) 1 applic TOP Q12 [facility] Last Admin: 05/13/17 09:52 Dose: 1 applic Diltiazem HCl (Cardizem) 60 mg PO Q8 [facility] Last Admin: 05/13/17 09:53 Dose: 60 mg Dimethicone (Proshield Plus Skin Protectant) 1 applic TOP Q8 [facility] Last Admin: 05/13/17 10:00 Dose: 1 applic Lacosamide 100 mg/ Dextrose 110 mls @ 110 mls/hr IVPB Q12@0800,2000 [facility] Last Admin: 05/13/17 09:51 Dose: 110 mls/hr Ceftazidime/Avibactam 2.5 gm/ (Dextrose) 100 mls @ 100 mls/hr IVPB Q8H [facility] PRN Reason: Protocol Last Admin: 05/13/17 09:53 Dose: 100 mls/hr Vancomycin HCl 1 gm/ Dextrose 250 mls @ 166.667 mls/hr IVPB Q12H [facility] PRN Reason: Protocol Last Admin: 05/13/17 10:52 Dose: 166.667 mls/hr Lactobacillus Acidophilus (Bacid Acidophilus) 1 cap PO BID [facility] Last Admin: 05/13/17 09:58 Dose: 1 cap Magnesium Oxide (Mag-Ox) 400 mg PO BID [facility] Last Admin: 05/13/17 09:52 Dose: 400 mg Metoprolol Succinate (Toprol Xl) 50 mg PO DAILY [facility] Pantoprazole Sodium (Protonix Susp) 40 mg NG DAILY [facility] Last Admin: 05/13/17 09:53 Dose: 40 mg Potassium Chloride (Potassium Chloride Oral Soln) 40 meq NG DAILY [facility] Thiamine HCl (Vitamin B1 Tab) 100 mg PO DAILY [facility] Last Admin: 05/13/17 09:53 Dose: 100 mg Zinc Sulfate (Zinc Sulfate 220 Mg Cap) 220 mg PO DAILY [facility] Last Admin: 05/13/17 09:53 Dose: 220 mg - Labs Labs: 05/13/17 04:35 05/13/17 04:35 PT 14.2 Seconds (9.8-13.1) H 05/08/17 10:34 INR 1.3 (0.9-1.2) H 05/08/17 10:34 APTT 23.5 Seconds (25.6-37.1) L 05/08/17 10:34 - Constitutional Appears: Chronically Ill - Head Exam Head Exam: NORMAL INSPECTION - Eye Exam Eye Exam: PERRL - ENT Exam Additional comments: Intubated - Neck Exam Neck Exam: Normal Inspection - Respiratory Exam Respiratory Exam: Decreased Breath Sounds (at bases), Rhonchi (scattered) - Cardiovascular Exam Cardiovascular Exam: REGULAR RHYTHM - GI/Abdominal Exam GI & Abdominal Exam: Soft Additional comments: Peg tube - Extremities Exam Additional comments: L heel DTI, R lateral ankle healing, MSAD posterior thigh - Back Exam Additional comments: MSAD Sacrum,buttock, R flank - Neurological Exam Additional comments: unable to move, non verbal, follows with head verbal stimuli. - Skin Skin Exam: Warm Assessment and Plan (1) Acute respiratory failure Status: Acute (2) Status post tracheostomy Status: Acute (3) Shock Status: Deleted (4) Pneumonia Status: Acute (5) Acute renal failure (ARF) Status: Acute (6) Anemia Status: Acute (7) Hematuria, gross Status: Deleted (8) Thrombocytopenia Status: Resolved (9) History of pulmonary embolus (PE) Status: Acute (10) Pancolitis Status: Deleted (11) UTI (urinary tract infection) Status: Acute - Assessment and Plan (Free Text) Plan: Continue ventilatory support, Vanco, Ceftazidime, Duoneb, Cardizem HCL, Lopressor and rest of Tx.
[2017-05-13 16:15] VITALS: O2SAT 100
[2017-05-14] MEDS: DEXTROSE 5% IVPB SCH ×5 (00:36→20:38)
[2017-05-14] MEDS: CEFTAZIDIME IVPB SCH ×3 (00:36→16:47)
[2017-05-14] MEDS: AVIBACTAM IVPB SCH ×3 (00:36→16:47)
[2017-05-14] MEDS: WATER IVPB SCH ×5 (00:36→20:38)
[2017-05-14] MEDS: Proshield Plus GEL TOP SCH ×3 (01:05→16:47)
[2017-05-14] MEDS: Albuterol-Ipratrop 3 mg / 0.5 (3 ml) UD INH SCH ×6 (04:57→23:48)
--- NOTE | 2017-05-14 05:50 | CP.PCM.PN ---
Subjective - Date & Time of Evaluation Date of Evaluation: 05/14/17 Time of Evaluation: 05:41 - Subjective Subjective: Ms. Yordy Schafer was seen and examined at the bedside. She opens her eyes spontaneously and was able to nod to few questions. She has a left facial twitching. She remains with non-verbal response.She remains on mechanical ventilation via trach and peg-tube for feeding. There was no untoward events overnight. Objective - Vital Signs/Intake and Output Vital Signs (last 24 hours): Temp Pulse Resp BP Pulse Ox 99.1 F 112 H 16 126/78 100 05/14/17 05:02 05/14/17 05:02 05/14/17 05:02 05/14/17 05:02 05/14/17 05:02 Intake and Output: 05/13/17 05/14/17 18:59 06:59 Intake Total 3180 Output Total 2100 Balance 1080 - Medications Medications: Current Medications Acetaminophen (Tylenol 650 Mg Supp) 650 mg [place] Q4 PRN PRN Reason: Fever >100.4 F Last Admin: 05/08/17 00:10 Dose: 650 mg Albuterol/Ipratropium (Duoneb 3 Mg/0.5 Mg (3 Ml) Ud) 3 ml INH RQ6 PRN PRN Reason: Shortness of Breath Last Admin: 05/13/17 08:12 Dose: 3 ml Albuterol/Ipratropium (Duoneb 3 Mg/0.5 Mg (3 Ml) Ud) 3 ml INH RQ4 [facility] Last Admin: 05/14/17 04:57 Dose: 3 ml Ascorbic Acid (Vitamin C 250 Mg Tab) 250 mg PO DAILY [facility] Last Admin: 05/13/17 09:52 Dose: 250 mg Cholestyramine Resin (Questran) 4 gm PO DAILY [facility] Last Admin: 05/13/17 09:52 Dose: 4 gm Collagenase (Santyl) 1 applic TOP Q12 [facility] Last Admin: 05/13/17 20:33 Dose: 1 applic Diltiazem HCl (Cardizem) 60 mg PO Q8 [facility] Last Admin: 05/14/17 01:05 Dose: 60 mg Dimethicone (Proshield Plus Skin Protectant) 1 applic TOP Q8 [facility] Last Admin: 05/14/17 01:05 Dose: 1 applic Lacosamide 100 mg/ Dextrose 110 mls @ 110 mls/hr IVPB Q12@0800,2000 [facility] Last Admin: 05/13/17 20:08 Dose: 110 mls/hr Ceftazidime/Avibactam 2.5 gm/ (Dextrose) 100 mls @ 100 mls/hr IVPB Q8H [facility] PRN Reason: Protocol Last Admin: 05/14/17 00:36 Dose: 100 mls/hr Vancomycin HCl 1 gm/ Dextrose 250 mls @ 166.667 mls/hr IVPB Q12H [facility] PRN Reason: Protocol Last Admin: 05/13/17 20:09 Dose: 166.667 mls/hr Lactobacillus Acidophilus (Bacid Acidophilus) 1 cap PO BID [facility] Last Admin: 05/13/17 17:25 Dose: 1 cap Magnesium Oxide (Mag-Ox) 400 mg PO BID [facility] Last Admin: 05/13/17 17:26 Dose: 400 mg Metoprolol Tartrate (Lopressor) 25 mg PO Q12 [facility] Last Admin: 05/13/17 20:27 Dose: 25 mg Pantoprazole Sodium (Protonix Susp) 40 mg NG DAILY [facility] Last Admin: 05/13/17 09:53 Dose: 40 mg Potassium Chloride (Potassium Chloride Oral Soln) 40 meq NG DAILY [facility] Thiamine HCl (Vitamin B1 Tab) 100 mg PO DAILY [facility] Last Admin: 05/13/17 09:53 Dose: 100 mg Zinc Sulfate (Zinc Sulfate 220 Mg Cap) 220 mg PO DAILY [facility] Last Admin: 05/13/17 09:53 Dose: 220 mg - Labs Labs: 05/13/17 04:35 05/13/17 04:35 PT 14.2 Seconds (9.8-13.1) H 05/08/17 10:34 INR 1.3 (0.9-1.2) H 05/08/17 10:34 APTT 23.5 Seconds (25.6-37.1) L 05/08/17 10:34 - Constitutional Appears: No Acute Distress - Head Exam Head Exam: ATRAUMATIC - Neurological Exam Neurological Exam: Awake Neuro motor strength exam: Left Upper Extremity: 0, Right Upper Extremity: 0, Left Lower Extremity: 0, Right Lower Extremity: 0 Additional comments: She has non-verbal response She opens her eyes spontaneously and nods with few questions. Assessment and Plan (1) Seizure Assessment & Plan: Case discussed with Dr. Blanco, recommend repeat EEG, will start with Keppra 500 mg IVPB Q 12.Continue all current medical regimen. Please refer electrolytes imbalance with primary. Status: Acute
[2017-05-14 06:11] LABS: RBC URINE 1345 /hpf (0-3); URINE BILIRUBIN NEGATIVE (NEGATIVE); URINE BLOOD LARGE (NEGATIVE); URINE COLOR YELLOW (YELLOW); URINE GLUCOSE (UA) NEG (Normal); URINE KETONE NEGATIVE (NEGATIVE); URINE LEUKOCYTE ESTERASE MOD Leu/uL (Negative); URINE PROTEIN 100 mg/dL (NEGATIVE); URINE UROBILINOGEN 0.2-1.0 mg/dL (0.2-1.0); WBC URINE 58 /hpf (0-5)
[2017-05-14 07:22] LABS: HEMATOCRIT 24.6 % (34.0-47.0); MEAN CORPUSCULAR HGB CONC 32.9 g/dL (33.0-37.0); RED CELL DISTRIBUTION WIDTH 17.9 % (11.5-14.5); WHITE BLOOD COUNT 12.6 K/uL (4.8-10.8)
[2017-05-14 07:58] LABS: ALB/GLOB RATIO 0.8 (1.0-2.1); ALKALINE PHOSPHATASE 246 U/L (38-126); ALT/SGPT 54 U/L (9-52); AST/SGOT 36 U/L (14-36); BILIRUBIN,TOTAL 0.4 mg/dl (0.2-1.3); BLOOD UREA NITROGEN 21 mg/dl (7-17); CALCIUM 8.5 mg/dL (8.4-10.2); CARBON DIOXIDE 20 mmol/L (22-30); CHLORIDE 112 mmol/L (98-107); GFR AFRICAN-AMERICAN > 60; GLUCOSE,RANDOM 111 mg/dL (65-105); MAGNESIUM 1.2 MG/DL (1.6-2.3); PHOSPHOROUS 2.3 mg/dl (2.5-4.5); POTASSIUM 4.1 MMOL/L (3.6-5.0); SODIUM 141 mmol/l (132-148)
[2017-05-14] MEDS: Magnesium Oxide 400 mg Tab UD PO SCH ×2 (09:35→16:48)
[2017-05-14] MEDS: Potassium Chloride 20 mEq/15 ml LIQ UD NG SCH (09:36)
[2017-05-14] MEDS: Pantoprazole 40 mg Susp UD NG SCH (09:36)
[2017-05-14] MEDS: Cholestyramine 4 gm/Pkt UD PO SCH (09:37)
[2017-05-14] MEDS: Vancomycin 1 GM in Dextrose 5% In Water 250 ML IVPB SCH ×2 (09:37→20:39)
[2017-05-14] MEDS: Santyl Collagenase OINTMENT TOP SCH ×2 (09:37→20:40)
[2017-05-14] MEDS: Lactobacillus Acidophilus 500 MU Cap PO SCH ×2 (10:00→16:47)
[2017-05-14] MEDS: levETIRAcetam 500 MG in Sodium Chloride 0.9% 100 ML IVPB SCH ×2 (10:45→20:38)
[2017-05-14] MEDS: LACOSAMIDE IVPB SCH ×2 (12:00→20:38)
--- NOTE | 2017-05-14 13:22 | CP.PCM.PN ---
Subjective - Date & Time of Evaluation Date of Evaluation: 05/14/17 Time of Evaluation: 13:21 - Subjective Subjective: s: seen and examined, no complaints gen: nad sclera: anicteric op: clear neck: track +s1+s2 lungs clear abd + peg psych: flat skin: no rash neuro: opens eyes to voice imp: hypernatremia/ hematuria plan: Na improved off d5w gtt, continue free water flush f/u re: gross hematuria Objective - Vital Signs/Intake and Output Vital Signs (last 24 hours): Temp Pulse Resp BP Pulse Ox 98.9 F 98 H 16 111/76 100 05/14/17 12:20 05/14/17 12:20 05/14/17 12:20 05/14/17 12:20 05/14/17 12:20 Intake and Output: 05/14/17 05/14/17 06:59 18:59 Intake Total 3180 Output Total 2100 Balance 1080 - Medications Medications: Current Medications Acetaminophen (Tylenol 650 Mg Supp) 650 mg [place] Q4 PRN PRN Reason: Fever >100.4 F Last Admin: 05/08/17 00:10 Dose: 650 mg Albuterol/Ipratropium (Duoneb 3 Mg/0.5 Mg (3 Ml) Ud) 3 ml INH RQ6 PRN PRN Reason: Shortness of Breath Last Admin: 05/13/17 08:12 Dose: 3 ml Albuterol/Ipratropium (Duoneb 3 Mg/0.5 Mg (3 Ml) Ud) 3 ml INH RQ4 [facility] Last Admin: 05/14/17 11:25 Dose: 3 ml Ascorbic Acid (Vitamin C 250 Mg Tab) 250 mg PO DAILY [facility] Last Admin: 05/14/17 09:38 Dose: 250 mg Cholestyramine Resin (Questran) 4 gm PO DAILY [facility] Last Admin: 05/14/17 09:37 Dose: 4 gm Collagenase (Santyl) 1 applic TOP Q12 [facility] Last Admin: 05/14/17 09:37 Dose: 1 applic Diltiazem HCl (Cardizem) 60 mg PO Q8 [facility] Last Admin: 05/14/17 09:34 Dose: 60 mg Dimethicone (Proshield Plus Skin Protectant) 1 applic TOP Q8 [facility] Last Admin: 05/14/17 09:47 Dose: 1 applic Lacosamide 100 mg/ Dextrose 110 mls @ 110 mls/hr IVPB Q12@0800,2000 [facility] Last Admin: 05/14/17 12:00 Dose: 110 mls/hr Ceftazidime/Avibactam 2.5 gm/ (Dextrose) 100 mls @ 100 mls/hr IVPB Q8H [facility] PRN Reason: Protocol Last Admin: 05/14/17 08:20 Dose: 100 mls/hr Vancomycin HCl 1 gm/ Dextrose 250 mls @ 166.667 mls/hr IVPB Q12H [facility] PRN Reason: Protocol Last Admin: 05/14/17 09:37 Dose: 166.667 mls/hr Levetiracetam 500 mg/ Sodium (Chloride) 105 mls @ 210 mls/hr IVPB Q12 [facility] Last Admin: 05/14/17 10:45 Dose: 210 mls/hr Lactobacillus Acidophilus (Bacid Acidophilus) 1 cap PO BID [facility] Last Admin: 05/14/17 10:00 Dose: 1 cap Magnesium Oxide (Mag-Ox) 400 mg PO BID [facility] Last Admin: 05/14/17 09:35 Dose: 400 mg Metoprolol Tartrate (Lopressor) 25 mg PO Q12 [facility] Last Admin: 05/14/17 09:35 Dose: 25 mg Pantoprazole Sodium (Protonix Susp) 40 mg NG DAILY [facility] Last Admin: 05/14/17 09:36 Dose: 40 mg Potassium Chloride (Potassium Chloride Oral Soln) 40 meq NG DAILY [facility] Last Admin: 05/14/17 09:36 Dose: 40 meq Thiamine HCl (Vitamin B1 Tab) 100 mg PO DAILY [facility] Last Admin: 05/14/17 09:37 Dose: 100 mg Zinc Sulfate (Zinc Sulfate 220 Mg Cap) 220 mg PO DAILY [facility] Last Admin: 05/14/17 09:38 Dose: 220 mg - Labs Labs: 05/14/17 07:03 05/14/17 07:03 PT 14.2 Seconds (9.8-13.1) H 05/08/17 10:34 INR 1.3 (0.9-1.2) H 05/08/17 10:34 APTT 23.5 Seconds (25.6-37.1) L 05/08/17 10:34
--- NOTE | 2017-05-14 16:18 | CP.PCM.PN ---
Subjective - Date & Time of Evaluation Date of Evaluation: 05/14/17 Time of Evaluation: 13:30 - Subjective Subjective: F/U Respiratory failure Pr with eyes open, following conversation with the eye. Objective - Vital Signs/Intake and Output Vital Signs (last 24 hours): Temp Pulse Resp BP Pulse Ox 98.9 F 98 H 16 111/76 100 05/14/17 12:20 05/14/17 12:20 05/14/17 12:20 05/14/17 12:20 05/14/17 12:20 Intake and Output: 05/14/17 05/14/17 06:59 18:59 Intake Total 3180 Output Total 2100 Balance 1080 - Medications Medications: Current Medications Acetaminophen (Tylenol 650 Mg Supp) 650 mg [place] Q4 PRN PRN Reason: Fever >100.4 F Last Admin: 05/08/17 00:10 Dose: 650 mg Albuterol/Ipratropium (Duoneb 3 Mg/0.5 Mg (3 Ml) Ud) 3 ml INH RQ6 PRN PRN Reason: Shortness of Breath Last Admin: 05/13/17 08:12 Dose: 3 ml Albuterol/Ipratropium (Duoneb 3 Mg/0.5 Mg (3 Ml) Ud) 3 ml INH RQ4 [facility] Last Admin: 05/14/17 15:10 Dose: 3 ml Ascorbic Acid (Vitamin C 250 Mg Tab) 250 mg PO DAILY [facility] Last Admin: 05/14/17 09:38 Dose: 250 mg Cholestyramine Resin (Questran) 4 gm PO DAILY [facility] Last Admin: 05/14/17 09:37 Dose: 4 gm Collagenase (Santyl) 1 applic TOP Q12 [facility] Last Admin: 05/14/17 09:37 Dose: 1 applic Diltiazem HCl (Cardizem) 60 mg PO Q8 [facility] Last Admin: 05/14/17 09:34 Dose: 60 mg Dimethicone (Proshield Plus Skin Protectant) 1 applic TOP Q8 [facility] Last Admin: 05/14/17 09:47 Dose: 1 applic Lacosamide 100 mg/ Dextrose 110 mls @ 110 mls/hr IVPB Q12@0800,2000 [facility] Last Admin: 05/14/17 12:00 Dose: 110 mls/hr Ceftazidime/Avibactam 2.5 gm/ (Dextrose) 100 mls @ 100 mls/hr IVPB Q8H [facility] PRN Reason: Protocol Last Admin: 05/14/17 08:20 Dose: 100 mls/hr Vancomycin HCl 1 gm/ Dextrose 250 mls @ 166.667 mls/hr IVPB Q12H [facility] PRN Reason: Protocol Last Admin: 05/14/17 09:37 Dose: 166.667 mls/hr Levetiracetam 500 mg/ Sodium (Chloride) 105 mls @ 210 mls/hr IVPB Q12 [facility] Last Admin: 05/14/17 10:45 Dose: 210 mls/hr Lactobacillus Acidophilus (Bacid Acidophilus) 1 cap PO BID [facility] Last Admin: 05/14/17 10:00 Dose: 1 cap Magnesium Oxide (Mag-Ox) 400 mg PO BID [facility] Last Admin: 05/14/17 09:35 Dose: 400 mg Metoprolol Tartrate (Lopressor) 25 mg PO Q12 [facility] Last Admin: 05/14/17 09:35 Dose: 25 mg Pantoprazole Sodium (Protonix Susp) 40 mg NG DAILY [facility] Last Admin: 05/14/17 09:36 Dose: 40 mg Potassium Chloride (Potassium Chloride Oral Soln) 40 meq NG DAILY [facility] Last Admin: 05/14/17 09:36 Dose: 40 meq Thiamine HCl (Vitamin B1 Tab) 100 mg PO DAILY [facility] Last Admin: 05/14/17 09:37 Dose: 100 mg Zinc Sulfate (Zinc Sulfate 220 Mg Cap) 220 mg PO DAILY [facility] Last Admin: 05/14/17 09:38 Dose: 220 mg - Labs Labs: 05/14/17 07:03 05/14/17 07:03 PT 14.2 Seconds (9.8-13.1) H 05/08/17 10:34 INR 1.3 (0.9-1.2) H 05/08/17 10:34 APTT 23.5 Seconds (25.6-37.1) L 05/08/17 10:34 - Constitutional Appears: Chronically Ill - Head Exam Head Exam: NORMAL INSPECTION - Eye Exam Eye Exam: PERRL - ENT Exam Additional comments: Intubated - Neck Exam Neck Exam: Normal Inspection - Respiratory Exam Respiratory Exam: Decreased Breath Sounds (at bases), Rhonchi (scattered) - Cardiovascular Exam Cardiovascular Exam: REGULAR RHYTHM - GI/Abdominal Exam GI & Abdominal Exam: Soft Additional comments: Peg tube - Extremities Exam Additional comments: L heel DTI, R latyeral ankle healing, MSAD posterior thigh - Back Exam Additional comments: MSAD Sacrum, buttock, R flank - Neurological Exam Additional comments: no verbal, follows with head verbal stimuli, unable to move. - Skin Skin Exam: Warm Assessment and Plan (1) Acute respiratory failure Status: Acute (2) Status post tracheostomy Status: Acute (3) Shock Status: Deleted (4) Pneumonia Status: Acute (5) Acute renal failure (ARF) Status: Acute (6) Anemia Status: Acute (7) Hematuria, gross Status: Deleted (8) Thrombocytopenia Status: Resolved (9) History of pulmonary embolus (PE) Status: Acute (10) Pancolitis Status: Deleted (11) UTI (urinary tract infection) Status: Acute - Assessment and Plan (Free Text) Plan: Hematuria noticed today, Urology ordered U/A, U C-S, Hgb 8.5, continue in PRVC/ AC, F/U Cardiology consult to clear for Colostomy.
--- NOTE | 2017-05-14 18:51 | PN ---
DATE: 05/14/2017 TIME OF FOLLOWUP: Roughly 3:25 p.m. SUBJECTIVE: Called to see the patient again for recurrent gross hematuria, which now seems to be clearing at the bedside and the catheter is now draining brandon urine well. The patient is still on a respirator, is very comfortable with no complaint of any pain at this time according to the who is sitting at the bedside. Also additional history obtained from the indicates that the patient did have a cystoscopy with insertion of a right ureteral stent, possibly because of blockage of the right ureter secondary to bowel pathology, which she had at her previous hospitalization in [facility]. The said the stent was removed 3 weeks later and was told that there was no other pathology in the bladder at that time. The patient is currently scheduled for possible diverting colostomy. The patient also previously had a slightly elevated PT and INR. We will repeat that today and we will also get a repeat urine culture. The urine, in general, seems to be improving on IV antibiotics with a decreased wbc count in the urine with IV antibiotics. DIAGNOSTIC IMPRESSION: Gross and microscopic hematuria. PLAN: To just repeat a urine C & S. We will also try to get a urine cytology. Miles Stevens MD MTDD
[2017-05-14 19:05] LABS: PARTIAL THROMBOPLASTIN TIME 20.6 Seconds (25.6-37.1)
[2017-05-15] MEDS: Proshield Plus GEL TOP SCH ×3 (00:31→17:01)
[2017-05-15] MEDS: CEFTAZIDIME IVPB SCH ×3 (00:46→16:59)
[2017-05-15] MEDS: DEXTROSE 5% IVPB SCH ×5 (00:46→22:23)
[2017-05-15] MEDS: AVIBACTAM IVPB SCH ×3 (00:46→16:59)
[2017-05-15] MEDS: WATER IVPB SCH ×5 (00:46→22:23)
[2017-05-15] MEDS: Albuterol-Ipratrop 3 mg / 0.5 (3 ml) UD INH SCH ×6 (04:59→23:46)
--- NOTE | 2017-05-15 06:08 | CP.PCM.PN ---
Subjective - Date & Time of Evaluation Date of Evaluation: 05/15/17 Time of Evaluation: 06:03 - Subjective Subjective: Ms. Yordy Schafer was seen and examined at the bedside. She is alert, and able to response to few questions. She is able to utter words such as fine and I am okay with nodding of her head. She does not have any facial twitching and denies any headache, dizziness, nausea, or vomiting.She remains with trach and on mechanical ventilation. She is also on peg tube feeding. She remains on special bed for wound healing and on contact isolation for infection. There was no untoward events overnight. Objective - Vital Signs/Intake and Output Vital Signs (last 24 hours): Temp Pulse Resp BP Pulse Ox 98.8 F 109 H 18 106/69 100 05/15/17 05:29 05/15/17 05:29 05/15/17 05:29 05/15/17 05:29 05/15/17 05:29 Intake and Output: 05/14/17 05/15/17 18:59 06:59 Intake Total 660 1410 Output Total 1400 2200 Balance -740 -790 - Medications Medications: Current Medications Acetaminophen (Tylenol 650 Mg Supp) 650 mg [place] Q4 PRN PRN Reason: Fever >100.4 F Last Admin: 05/08/17 00:10 Dose: 650 mg Albuterol/Ipratropium (Duoneb 3 Mg/0.5 Mg (3 Ml) Ud) 3 ml INH RQ6 PRN PRN Reason: Shortness of Breath Last Admin: 05/13/17 08:12 Dose: 3 ml Albuterol/Ipratropium (Duoneb 3 Mg/0.5 Mg (3 Ml) Ud) 3 ml INH RQ4 [facility] Last Admin: 05/15/17 04:59 Dose: 3 ml Ascorbic Acid (Vitamin C 250 Mg Tab) 250 mg PO DAILY [facility] Last Admin: 05/14/17 09:38 Dose: 250 mg Cholestyramine Resin (Questran) 4 gm PO DAILY [facility] Last Admin: 05/14/17 09:37 Dose: 4 gm Collagenase (Santyl) 1 applic TOP Q12 [facility] Last Admin: 05/14/17 20:40 Dose: 1 applic Diltiazem HCl (Cardizem) 60 mg PO Q8 [facility] Last Admin: 05/15/17 00:33 Dose: 60 mg Dimethicone (Proshield Plus Skin Protectant) 1 applic TOP Q8 [facility] Last Admin: 05/15/17 00:31 Dose: 1 applic Lacosamide 100 mg/ Dextrose 110 mls @ 110 mls/hr IVPB Q12@0800,2000 [facility] Last Admin: 05/14/17 20:38 Dose: 110 mls/hr Ceftazidime/Avibactam 2.5 gm/ (Dextrose) 100 mls @ 100 mls/hr IVPB Q8H [facility] PRN Reason: Protocol Last Admin: 05/15/17 00:46 Dose: 100 mls/hr Vancomycin HCl 1 gm/ Dextrose 250 mls @ 166.667 mls/hr IVPB Q12H [facility] PRN Reason: Protocol Last Admin: 05/14/17 20:39 Dose: 166.667 mls/hr Levetiracetam 500 mg/ Sodium (Chloride) 105 mls @ 210 mls/hr IVPB Q12 [facility] Last Admin: 05/14/17 20:38 Dose: 210 mls/hr Lactobacillus Acidophilus (Bacid Acidophilus) 1 cap PO BID [facility] Last Admin: 05/14/17 16:47 Dose: 1 cap Magnesium Oxide (Mag-Ox) 400 mg PO BID [facility] Last Admin: 05/14/17 16:48 Dose: 400 mg Metoprolol Tartrate (Lopressor) 25 mg PO Q12 [facility] Last Admin: 05/14/17 20:41 Dose: 25 mg Pantoprazole Sodium (Protonix Susp) 40 mg NG DAILY [facility] Last Admin: 05/14/17 09:36 Dose: 40 mg Potassium Chloride (Potassium Chloride Oral Soln) 40 meq NG DAILY [facility] Last Admin: 05/14/17 09:36 Dose: 40 meq Thiamine HCl (Vitamin B1 Tab) 100 mg PO DAILY [facility] Last Admin: 05/14/17 09:37 Dose: 100 mg Zinc Sulfate (Zinc Sulfate 220 Mg Cap) 220 mg PO DAILY [facility] Last Admin: 05/14/17 09:38 Dose: 220 mg - Labs Labs: 05/14/17 07:03 05/14/17 07:03 PT 14.6 Seconds (9.8-13.1) H 05/14/17 18:48 INR 1.3 (0.9-1.2) H 05/14/17 18:48 APTT 20.6 Seconds (25.6-37.1) L 05/14/17 18:48 - Constitutional Appears: No Acute Distress - Head Exam Head Exam: ATRAUMATIC - Neurological Exam Neurological Exam: Alert, Awake Neuro motor strength exam: Left Upper Extremity: 0, Right Upper Extremity: 0, Left Lower Extremity: 0, Right Lower Extremity: 0 Additional comments: Neurological improving from previous examination. Assessment and Plan (1) Seizure Assessment & Plan: Case discussed with Dr. Blanco. continue all current medical regimen. Follow up EEG cherelle. Status: Acute
[2017-05-15 07:39] LABS: BASO % 0.3 % (0.0-2.0); EOS % 0.2 % (0.0-4.0); HEMATOCRIT 25.1 % (34.0-47.0); LYMPH # 0.5 K/uL (1.0-4.3); MEAN CELL VOLUME 86.2 fl (81.0-99.0); MEAN CORPUSCULAR HEMOGLOBIN 29.2 pg (27.0-31.0); MEAN CORPUSCULAR HGB CONC 33.9 g/dL (33.0-37.0); MEAN PLATELET VOLUME 7.8 fl (7.2-11.7); MONO # 1.1 K/uL (0.0-0.8); MONO % 10.5 % (0.0-10.0); NEUT # 8.9 K/uL (1.8-7.0); PLATELET COUNT 123 K/uL (130-400); RED CELL DISTRIBUTION WIDTH 17.8 % (11.5-14.5); WHITE BLOOD COUNT 10.6 K/uL (4.8-10.8)
[2017-05-15 08:18] LABS: ALB/GLOB RATIO 0.8 (1.0-2.1); ALKALINE PHOSPHATASE 229 U/L (38-126); ALT/SGPT 51 U/L (9-52); AST/SGOT 41 U/L (14-36); BILIRUBIN,TOTAL 0.4 mg/dl (0.2-1.3); BLOOD UREA NITROGEN 20 mg/dl (7-17); CALCIUM 8.4 mg/dL (8.4-10.2); CARBON DIOXIDE 22 mmol/L (22-30); CHLORIDE 107 mmol/L (98-107); GFR AFRICAN-AMERICAN > 60; GLUCOSE,RANDOM 102 mg/dL (65-105); POTASSIUM 3.1 MMOL/L (3.6-5.0); SODIUM 138 mmol/l (132-148); TOTAL PROTEIN 6.1 G/DL (6.3-8.2)
[2017-05-15] MEDS: LACOSAMIDE IVPB SCH ×2 (09:00→22:23)
[2017-05-15] MEDS: Magnesium Oxide 400 mg Tab UD PO SCH ×2 (09:15→16:57)
[2017-05-15] MEDS: Pantoprazole 40 mg Susp UD NG SCH (09:16)
[2017-05-15] MEDS: Potassium Chloride 20 mEq/15 ml LIQ UD NG SCH (09:16)
[2017-05-15] MEDS: Lactobacillus Acidophilus 500 MU Cap PO SCH ×2 (09:17→16:59)
[2017-05-15] MEDS: Santyl Collagenase OINTMENT TOP SCH ×2 (09:29→21:44)
[2017-05-15] MEDS: Cholestyramine 4 gm/Pkt UD PO SCH (09:29)
[2017-05-15 11:19] LABS: EOSINOPHIL 1 % (0-7); NEUTROPHIL 78 % (42-75); TOTAL CELLS COUNTED 100
[2017-05-15] MEDS: levETIRAcetam 500 MG in Sodium Chloride 0.9% 100 ML IVPB SCH ×2 (12:13→21:42)
[2017-05-15] MEDS: Vancomycin 1 GM in Dextrose 5% In Water 250 ML IVPB SCH ×2 (12:55→21:43)
--- NOTE | 2017-05-15 13:19 | PN ---
DATE: 05/15/2017 TIME OF FOLLOWUP: Roughly around 12:30 p.m. SUBJECTIVE: The patient is resting very comfortably today with the at the bedside. The patient has had no complaints of any type of abdominal pain over the last 24 hours and this a.m. Her [place] catheter is now draining very light brandon urine well without any clots. Her CBC shows a rising hemoglobin from 8.1 on 05/14/2017 to 8.5 on 05/15/2017. Her WBC count also dropped from 12.6 on 05/14/2017 to 10.6 this morning, 05/15/2017 and her hematocrit also increased from 24.6 to 25.1. Her chem profile shows a sodium of 138, potassium 3.1, chloride 107, CO2 of 22, BUN and creatinine of 20 and 0.7 respectively with a GFR of greater than 60. Her AST was 41 and ALT was 51. Urine C and S on 05/10/2017 showed no growth and on 05/11/2017, MRSA was not detected. DIAGNOSTIC IMPRESSION: Gross hematuria, which has resolved at this time. We will check the urine cytology, which was sent yesterday, 05/14/2017. Doubt any bladder pathology since the patient did have a cystoscopy in December. Miles Stevens MD
--- NOTE | 2017-05-15 18:36 | CP.PCM.PN ---
Subjective - Date & Time of Evaluation Date of Evaluation: 05/15/17 Time of Evaluation: 15:30 - Subjective Subjective: F/U Respiratory failure. Awake , follows conversation with eyes , follows commands Objective - Vital Signs/Intake and Output Vital Signs (last 24 hours): Temp Pulse Resp BP Pulse Ox 98.3 F 106 H 20 115/69 100 05/15/17 16:00 05/15/17 16:56 05/15/17 16:00 05/15/17 16:56 05/15/17 16:00 Intake and Output: 05/15/17 05/15/17 06:59 18:59 Intake Total 1410 1960 Output Total 2200 1999 Balance -790 -40 - Medications Medications: Current Medications Acetaminophen (Tylenol 650 Mg Supp) 650 mg [place] Q4 PRN PRN Reason: Fever >100.4 F Last Admin: 05/08/17 00:10 Dose: 650 mg Albuterol/Ipratropium (Duoneb 3 Mg/0.5 Mg (3 Ml) Ud) 3 ml INH RQ4 [facility] Last Admin: 05/15/17 15:29 Dose: 3 ml Ascorbic Acid (Vitamin C 250 Mg Tab) 250 mg PO DAILY [facility] Last Admin: 05/15/17 09:17 Dose: 250 mg Cholestyramine Resin (Questran) 4 gm PO DAILY [facility] Last Admin: 05/15/17 09:29 Dose: 4 gm Collagenase (Santyl) 1 applic TOP Q12 [facility] Last Admin: 05/15/17 09:29 Dose: 1 applic Diltiazem HCl (Cardizem) 60 mg PO Q8 [facility] Last Admin: 05/15/17 16:56 Dose: 60 mg Dimethicone (Proshield Plus Skin Protectant) 1 applic TOP Q8 [facility] Last Admin: 05/15/17 17:01 Dose: 1 applic Lacosamide 100 mg/ Dextrose 110 mls @ 110 mls/hr IVPB Q12@08,1999 [facility] Last Admin: 05/15/17 09:00 Dose: 110 mls/hr Ceftazidime/Avibactam 2.5 gm/ (Dextrose) 100 mls @ 100 mls/hr IVPB Q8H [facility] PRN Reason: Protocol Last Admin: 05/15/17 16:59 Dose: 100 mls/hr Vancomycin HCl 1 gm/ Dextrose 250 mls @ 166.667 mls/hr IVPB Q12H [facility] PRN Reason: Protocol Last Admin: 05/15/17 12:55 Dose: 166.667 mls/hr Levetiracetam 500 mg/ Sodium (Chloride) 105 mls @ 210 mls/hr IVPB Q12 [facility] Last Admin: 05/15/17 12:13 Dose: 210 mls/hr Lactobacillus Acidophilus (Bacid Acidophilus) 1 cap PO BID [facility] Last Admin: 05/15/17 16:59 Dose: 1 cap Magnesium Oxide (Mag-Ox) 400 mg PO BID [facility] Last Admin: 05/15/17 16:57 Dose: 400 mg Metoprolol Tartrate (Lopressor) 25 mg PO Q12 [facility] Last Admin: 05/15/17 09:15 Dose: 25 mg Pantoprazole Sodium (Protonix Susp) 40 mg NG DAILY [facility] Last Admin: 05/15/17 09:16 Dose: 40 mg Potassium Chloride (Potassium Chloride Oral Soln) 40 meq NG DAILY [facility] Last Admin: 05/15/17 09:16 Dose: 40 meq Thiamine HCl (Vitamin B1 Tab) 100 mg PO DAILY [facility] Last Admin: 05/15/17 09:17 Dose: 100 mg Zinc Sulfate (Zinc Sulfate 220 Mg Cap) 220 mg PO DAILY [facility] Last Admin: 05/15/17 09:17 Dose: 220 mg - Labs Labs: 05/15/17 06:30 05/15/17 06:30 PT 14.6 Seconds (9.8-13.1) H 05/14/17 18:48 INR 1.3 (0.9-1.2) H 05/14/17 18:48 APTT 20.6 Seconds (25.6-37.1) L 05/14/17 18:48 - Constitutional Appears: Chronically Ill - Head Exam Head Exam: NORMAL INSPECTION - Eye Exam Eye Exam: PERRL - ENT Exam Additional comments: Intubated - Neck Exam Neck Exam: Normal Inspection - Respiratory Exam Respiratory Exam: Decreased Breath Sounds (at bases), Rhonchi (scattered at bases) - Cardiovascular Exam Cardiovascular Exam: REGULAR RHYTHM - GI/Abdominal Exam GI & Abdominal Exam: Soft, Normal Bowel Sounds Additional comments: Peg tube - Extremities Exam Additional comments: L heel DTI, R lateral ankle healing, MSAD sacrum , posterior thigh improving - Back Exam Additional comments: MSAD sacrum, buttock, R flank - Neurological Exam Additional comments: Non verbal, follows with head verbal stimuli, unable to move. - Skin Skin Exam: Warm Assessment and Plan (1) Acute respiratory failure Status: Acute (2) Status post tracheostomy Status: Acute (3) Pneumonia Status: Acute (4) Acute renal failure (ARF) Status: Acute (5) Anemia Status: Acute (6) Thrombocytopenia Status: Resolved (7) History of pulmonary embolus (PE) Status: Acute (8) UTI (urinary tract infection) Status: Acute - Assessment and Plan (Free Text) Plan: Continue Ventilatory support , Avicaz , Vanco and rest of treatment ,for Colostomyematuria resolved , f/u Cardiology , plans for Colostomy.
[2017-05-16] MEDS: Proshield Plus GEL TOP SCH ×3 (00:52→17:46)
[2017-05-16] MEDS: DEXTROSE 5% IVPB SCH ×5 (01:01→22:41)
[2017-05-16] MEDS: AVIBACTAM IVPB SCH ×3 (01:01→17:43)
[2017-05-16] MEDS: CEFTAZIDIME IVPB SCH ×3 (01:01→17:43)
[2017-05-16] MEDS: WATER IVPB SCH ×5 (01:01→22:41)
[2017-05-16] MEDS: Albuterol-Ipratrop 3 mg / 0.5 (3 ml) UD INH SCH ×5 (04:45→19:15)
--- NOTE | 2017-05-16 06:53 | CP.PCM.PN ---
Subjective - Date & Time of Evaluation Date of Evaluation: 05/16/17 Time of Evaluation: 06:50 - Subjective Subjective: Ms. Yordy Schafer was seen and examined at the bedside. She opens her eyes spontaneously with verbal cues. She uses non-verbal to respond to few questions such as nodding her head. She denies any headache, blurred vision, dizziness, lightheadedness, nausea, or vomiting. She remains on mechanical ventilation via trach and feeding via peg tube. She has intermittent episode of hematuria. Patient has UTI. She also remains on contact isolation for infection and on specialty bed for her decubi. There was no untoward events overnight. Objective - Vital Signs/Intake and Output Vital Signs (last 24 hours): Temp Pulse Resp BP Pulse Ox 98 F 110 H 18 111/70 100 05/16/17 05:10 05/16/17 05:10 05/16/17 05:10 05/16/17 05:10 05/16/17 05:10 Intake and Output: 05/15/17 05/16/17 18:59 06:59 Intake Total 1959 1490 Output Total 19990 Balance -40 -710 - Medications Medications: Current Medications Acetaminophen (Tylenol 650 Mg Supp) 650 mg [place] Q4 PRN PRN Reason: Fever >100.4 F Last Admin: 05/08/17 00:10 Dose: 650 mg Albuterol/Ipratropium (Duoneb 3 Mg/0.5 Mg (3 Ml) Ud) 3 ml INH RQ4 [facility] Last Admin: 05/16/17 04:45 Dose: 3 ml Ascorbic Acid (Vitamin C 250 Mg Tab) 250 mg PO DAILY [facility] Last Admin: 05/15/17 09:17 Dose: 250 mg Cholestyramine Resin (Questran) 4 gm PO DAILY [facility] Last Admin: 05/15/17 09:29 Dose: 4 gm Collagenase (Santyl) 1 applic TOP Q12 [facility] Last Admin: 05/15/17 21:44 Dose: 1 applic Diltiazem HCl (Cardizem) 60 mg PO Q8 [facility] Last Admin: 05/16/17 00:52 Dose: 60 mg Dimethicone (Proshield Plus Skin Protectant) 1 applic TOP Q8 [facility] Last Admin: 05/16/17 00:52 Dose: 1 applic Lacosamide 100 mg/ Dextrose 110 mls @ 110 mls/hr IVPB Q12@0800,2000 [facility] Last Admin: 05/15/17 22:23 Dose: 110 mls/hr Ceftazidime/Avibactam 2.5 gm/ (Dextrose) 100 mls @ 100 mls/hr IVPB Q8H [facility] PRN Reason: Protocol Last Admin: 05/16/17 01:01 Dose: 100 mls/hr Vancomycin HCl 1 gm/ Dextrose 250 mls @ 166.667 mls/hr IVPB Q12H [facility] PRN Reason: Protocol Last Admin: 05/15/17 21:43 Dose: 166.667 mls/hr Levetiracetam 500 mg/ Sodium (Chloride) 105 mls @ 210 mls/hr IVPB Q12 [facility] Last Admin: 05/15/17 21:42 Dose: 210 mls/hr Lactobacillus Acidophilus (Bacid Acidophilus) 1 cap PO BID [facility] Last Admin: 05/15/17 16:59 Dose: 1 cap Magnesium Oxide (Mag-Ox) 400 mg PO BID [facility] Last Admin: 05/15/17 16:57 Dose: 400 mg Metoprolol Tartrate (Lopressor) 25 mg PO Q12 [facility] Last Admin: 05/15/17 21:49 Dose: 25 mg Pantoprazole Sodium (Protonix Susp) 40 mg NG DAILY [facility] Last Admin: 05/15/17 09:16 Dose: 40 mg Potassium Chloride (Potassium Chloride Oral Soln) 40 meq NG DAILY [facility] Last Admin: 05/15/17 09:16 Dose: 40 meq Thiamine HCl (Vitamin B1 Tab) 100 mg PO DAILY [facility] Last Admin: 05/15/17 09:17 Dose: 100 mg Zinc Sulfate (Zinc Sulfate 220 Mg Cap) 220 mg PO DAILY [facility] Last Admin: 05/15/17 09:17 Dose: 220 mg - Labs Labs: 05/15/17 06:30 05/15/17 06:30 PT 14.6 Seconds (9.8-13.1) H 05/14/17 18:48 INR 1.3 (0.9-1.2) H 05/14/17 18:48 APTT 20.6 Seconds (25.6-37.1) L 05/14/17 18:48 - Constitutional Appears: No Acute Distress - Head Exam Head Exam: ATRAUMATIC - Eye Exam Pupil Exam: PERRL - Neurological Exam Neurological Exam: Alert, Awake Neuro motor strength exam: Left Upper Extremity: 0, Right Upper Extremity: 0, Left Lower Extremity: 0, Right Lower Extremity: 0 Additional comments: Neurological improved from previous examination. She is able to respond to few questions using non-verbal communication skills. Assessment and Plan (1) Seizure Assessment & Plan: Case discussed with Dr. Blanco, continue all current medical regimen. Pending repeat EEG today. Please refer to primary physician regarding electrolytes imbalance ( K 3.1). Status: Acute
--- NOTE | 2017-05-16 09:46 | CP.PCM.PN ---
Subjective - Date & Time of Evaluation Date of Evaluation: 05/16/17 Time of Evaluation: 09:43 - Subjective Subjective: Patient opening her eyes to command. Vital sign noted Laboratory tests noted Objective - Vital Signs/Intake and Output Vital Signs (last 24 hours): Temp Pulse Resp BP Pulse Ox 98.7 F 114 H 20 97/68 L 100 05/16/17 08:38 05/16/17 08:38 05/16/17 08:38 05/16/17 08:38 05/16/17 08:38 Intake and Output: 05/16/17 05/16/17 06:59 18:59 Intake Total 1490 Output Total 2200 Balance -710 - Medications Medications: Current Medications Acetaminophen (Tylenol 650 Mg Supp) 650 mg [place] Q4 PRN PRN Reason: Fever >100.4 F Last Admin: 05/08/17 00:10 Dose: 650 mg Albuterol/Ipratropium (Duoneb 3 Mg/0.5 Mg (3 Ml) Ud) 3 ml INH RQ4 [facility] Last Admin: 05/16/17 07:35 Dose: 3 ml Ascorbic Acid (Vitamin C 250 Mg Tab) 250 mg PO DAILY [facility] Last Admin: 05/15/17 09:17 Dose: 250 mg Cholestyramine Resin (Questran) 4 gm PO DAILY [facility] Last Admin: 05/15/17 09:29 Dose: 4 gm Collagenase (Santyl) 1 applic TOP Q12 [facility] Last Admin: 05/15/17 21:44 Dose: 1 applic Diltiazem HCl (Cardizem) 60 mg PO Q8 [facility] Last Admin: 05/16/17 00:52 Dose: 60 mg Dimethicone (Proshield Plus Skin Protectant) 1 applic TOP Q8 [facility] Last Admin: 05/16/17 00:52 Dose: 1 applic Lacosamide 100 mg/ Dextrose 110 mls @ 110 mls/hr IVPB Q12@0800,2000 [facility] Last Admin: 05/15/17 22:23 Dose: 110 mls/hr Ceftazidime/Avibactam 2.5 gm/ (Dextrose) 100 mls @ 100 mls/hr IVPB Q8H [facility] PRN Reason: Protocol Last Admin: 05/16/17 01:01 Dose: 100 mls/hr Vancomycin HCl 1 gm/ Dextrose 250 mls @ 166.667 mls/hr IVPB Q12H [facility] PRN Reason: Protocol Last Admin: 05/15/17 21:43 Dose: 166.667 mls/hr Levetiracetam 500 mg/ Sodium (Chloride) 105 mls @ 210 mls/hr IVPB Q12 [facility] Last Admin: 05/15/17 21:42 Dose: 210 mls/hr Lactobacillus Acidophilus (Bacid Acidophilus) 1 cap PO BID [facility] Last Admin: 05/15/17 16:59 Dose: 1 cap Magnesium Oxide (Mag-Ox) 400 mg PO BID [facility] Last Admin: 05/15/17 16:57 Dose: 400 mg Metoprolol Tartrate (Lopressor) 25 mg PO Q12 [facility] Last Admin: 05/15/17 21:49 Dose: 25 mg Pantoprazole Sodium (Protonix Susp) 40 mg NG DAILY [facility] Last Admin: 05/15/17 09:16 Dose: 40 mg Potassium Chloride (Potassium Chloride Oral Soln) 40 meq NG BID [facility] Thiamine HCl (Vitamin B1 Tab) 100 mg PO DAILY [facility] Last Admin: 05/15/17 09:17 Dose: 100 mg Zinc Sulfate (Zinc Sulfate 220 Mg Cap) 220 mg PO DAILY [facility] Last Admin: 05/15/17 09:17 Dose: 220 mg - Labs Labs: 05/15/17 06:30 05/15/17 06:30 PT 14.6 Seconds (9.8-13.1) H 05/14/17 18:48 INR 1.3 (0.9-1.2) H 05/14/17 18:48 APTT 20.6 Seconds (25.6-37.1) L 05/14/17 18:48 - Constitutional Appears: No Acute Distress - ENT Exam ENT Exam: Mucous Membranes Moist - Respiratory Exam Respiratory Exam: absent: Chest Wall Tenderness - Cardiovascular Exam Cardiovascular Exam: absent: JVD, Rubs - GI/Abdominal Exam GI & Abdominal Exam: Soft, Normal Bowel Sounds - Extremities Exam Extremities Exam: absent: Calf Tenderness - Back Exam Back Exam: absent: CVA tenderness (L), CVA tenderness (R) - Neurological Exam Neurological Exam: Altered Assessment and Plan (1) Acute renal injury due to circulatory failure Assessment & Plan: Hypernatremia corrected. Serum sodium 138. Hypercholesterolemia: Corrected serum chloride 107 Patient became again hypokalemic. Increase potassium chloride 40 mEq twice a day And check serum magnesium again. Status: Acute (2) Altered mental status Status: Acute (3) GI bleed Status: Acute
[2017-05-16] MEDS: levETIRAcetam 500 MG in Sodium Chloride 0.9% 100 ML IVPB SCH ×2 (10:29→22:40)
[2017-05-16] MEDS: Vancomycin 1 GM in Dextrose 5% In Water 250 ML IVPB SCH ×2 (10:30→22:40)
[2017-05-16] MEDS: Magnesium Oxide 400 mg Tab UD PO SCH ×2 (10:31→17:44)
[2017-05-16] MEDS: Pantoprazole 40 mg Susp UD NG SCH (10:32)
[2017-05-16] MEDS: Cholestyramine 4 gm/Pkt UD PO SCH (10:32)
[2017-05-16] MEDS: Santyl Collagenase OINTMENT TOP SCH ×2 (10:33→22:43)
[2017-05-16] MEDS: Lactobacillus Acidophilus 500 MU Cap PO SCH ×2 (10:38→17:43)
[2017-05-16 12:57] LABS: BLOOD UREA NITROGEN 20 mg/dl (7-17); CALCIUM 8.4 mg/dL (8.4-10.2); CARBON DIOXIDE 21 mmol/L (22-30); CHLORIDE 106 mmol/L (98-107); GFR AFRICAN-AMERICAN > 60; GLUCOSE,RANDOM 88 mg/dL (65-105); POTASSIUM 3.2 MMOL/L (3.6-5.0); SODIUM 137 mmol/l (132-148)
--- NOTE | 2017-05-16 12:59 | CP.PCM.PN ---
Subjective - Date & Time of Evaluation Date of Evaluation: 05/16/17 Time of Evaluation: 12:58 - Subjective Subjective: General Surgery Note for Dr. Caldera Objective - Vital Signs/Intake and Output Vital Signs (last 24 hours): Temp Pulse Resp BP Pulse Ox 99.6 F 106 H 20 109/74 100 05/16/17 12:54 05/16/17 12:54 05/16/17 12:54 05/16/17 12:54 05/16/17 12:54 Intake and Output: 05/16/17 05/16/17 06:59 18:59 Intake Total 1490 Output Total 2200 Balance -710 - Medications Medications: Current Medications Acetaminophen (Tylenol 650 Mg Supp) 650 mg [place] Q4 PRN PRN Reason: Fever >100.4 F Last Admin: 05/08/17 00:10 Dose: 650 mg Albuterol/Ipratropium (Duoneb 3 Mg/0.5 Mg (3 Ml) Ud) 3 ml INH RQ4 [facility] Last Admin: 05/16/17 11:59 Dose: 3 ml Ascorbic Acid (Vitamin C 250 Mg Tab) 250 mg PO DAILY [facility] Last Admin: 05/16/17 10:32 Dose: 250 mg Cholestyramine Resin (Questran) 4 gm PO DAILY [facility] Last Admin: 05/16/17 10:32 Dose: 4 gm Collagenase (Santyl) 1 applic TOP Q12 [facility] Last Admin: 05/16/17 10:33 Dose: 1 applic Diltiazem HCl (Cardizem) 60 mg PO Q8 [facility] Last Admin: 05/16/17 10:31 Dose: 60 mg Dimethicone (Proshield Plus Skin Protectant) 1 applic TOP Q8 [facility] Last Admin: 05/16/17 10:34 Dose: 1 applic Lacosamide 100 mg/ Dextrose 110 mls @ 110 mls/hr IVPB Q12@0800,2000 [facility] Last Admin: 05/15/17 22:23 Dose: 110 mls/hr Ceftazidime/Avibactam 2.5 gm/ (Dextrose) 100 mls @ 100 mls/hr IVPB Q8H [facility] PRN Reason: Protocol Last Admin: 05/16/17 10:30 Dose: 100 mls/hr Vancomycin HCl 1 gm/ Dextrose 250 mls @ 166.667 mls/hr IVPB Q12H [facility] PRN Reason: Protocol Last Admin: 05/16/17 10:30 Dose: 166.667 mls/hr Levetiracetam 500 mg/ Sodium (Chloride) 105 mls @ 210 mls/hr IVPB Q12 [facility] Last Admin: 05/16/17 10:29 Dose: 210 mls/hr Lactobacillus Acidophilus (Bacid Acidophilus) 1 cap PO BID [facility] Last Admin: 05/16/17 10:38 Dose: 1 cap Magnesium Oxide (Mag-Ox) 400 mg PO BID [facility] Last Admin: 05/16/17 10:31 Dose: 400 mg Metoprolol Tartrate (Lopressor) 25 mg PO Q12 [facility] Last Admin: 05/16/17 10:31 Dose: 25 mg Pantoprazole Sodium (Protonix Susp) 40 mg NG DAILY [facility] Last Admin: 05/16/17 10:32 Dose: 40 mg Potassium Chloride (Potassium Chloride Oral Soln) 40 meq NG BID [facility] Thiamine HCl (Vitamin B1 Tab) 100 mg PO DAILY [facility] Last Admin: 05/16/17 10:31 Dose: 100 mg Zinc Sulfate (Zinc Sulfate 220 Mg Cap) 220 mg PO DAILY [facility] Last Admin: 05/16/17 10:31 Dose: 220 mg - Labs Labs: 05/15/17 06:30 05/16/17 12:39 PT 14.6 Seconds (9.8-13.1) H 05/14/17 18:48 INR 1.3 (0.9-1.2) H 05/14/17 18:48 APTT 20.6 Seconds (25.6-37.1) L 05/14/17 18:48 Assessment and Plan - Assessment and Plan (Free Text) Assessment: This is a 51F who 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 She is currently suffer from fecal and urinary incontinence. She has a history of cancer with multiple gastrointestinal surgeries and carcinomatosis which would make an elective colostomy a difficult and dangerous procedure at this time. At the moment the the risks of surgery outweigh the benefits of surgery. It is my recommendation that a rectal tube such as a flexiseal or dignicare be used to control fecal output.
[2017-05-16 13:01] LABS: MEAN CELL VOLUME 86.8 fl (81.0-99.0); MEAN CORPUSCULAR HEMOGLOBIN 29.5 pg (27.0-31.0); RED CELL DISTRIBUTION WIDTH 17.9 % (11.5-14.5); WHITE BLOOD COUNT 10.1 K/uL (4.8-10.8)
[2017-05-16] MEDS: LACOSAMIDE IVPB SCH ×2 (13:15→22:41)
--- NOTE | 2017-05-16 13:46 | CP.PCM.PCO ---
Assessment & Plan - Assessment and Plan (Free Text) Assessment: pt. cleared for discharge to LT[facility] hospital by , , and
--- NOTE | 2017-05-16 13:53 | CP.PCM.PN ---
Subjective - Date & Time of Evaluation Date of Evaluation: 05/16/17 Time of Evaluation: 12:30 - Subjective Subjective: F/U Respiratory failure. Pt awake, no A/D. Objective - Vital Signs/Intake and Output Vital Signs (last 24 hours): Temp Pulse Resp BP Pulse Ox 99.6 F 106 H 20 109/74 100 05/16/17 12:54 05/16/17 12:54 05/16/17 12:54 05/16/17 12:54 05/16/17 12:54 Intake and Output: 05/16/17 05/16/17 06:59 18:59 Intake Total 1490 Output Total 2200 Balance -710 - Medications Medications: Current Medications Acetaminophen (Tylenol 650 Mg Supp) 650 mg [place] Q4 PRN PRN Reason: Fever >100.4 F Last Admin: 05/08/17 00:10 Dose: 650 mg Albuterol/Ipratropium (Duoneb 3 Mg/0.5 Mg (3 Ml) Ud) 3 ml INH RQ4 [facility] Last Admin: 05/16/17 11:59 Dose: 3 ml Ascorbic Acid (Vitamin C 250 Mg Tab) 250 mg PO DAILY [facility] Last Admin: 05/16/17 10:32 Dose: 250 mg Cholestyramine Resin (Questran) 4 gm PO DAILY [facility] Last Admin: 05/16/17 10:32 Dose: 4 gm Collagenase (Santyl) 1 applic TOP Q12 [facility] Last Admin: 05/16/17 10:33 Dose: 1 applic Diltiazem HCl (Cardizem) 60 mg PO Q8 [facility] Last Admin: 05/16/17 10:31 Dose: 60 mg Dimethicone (Proshield Plus Skin Protectant) 1 applic TOP Q8 [facility] Last Admin: 05/16/17 10:34 Dose: 1 applic Lacosamide 100 mg/ Dextrose 110 mls @ 110 mls/hr IVPB Q12@0800,2000 [facility] Last Admin: 05/16/17 13:15 Dose: 110 mls/hr Ceftazidime/Avibactam 2.5 gm/ (Dextrose) 100 mls @ 100 mls/hr IVPB Q8H [facility] PRN Reason: Protocol Last Admin: 05/16/17 10:30 Dose: 100 mls/hr Vancomycin HCl 1 gm/ Dextrose 250 mls @ 166.667 mls/hr IVPB Q12H [facility] PRN Reason: Protocol Last Admin: 05/16/17 10:30 Dose: 166.667 mls/hr Levetiracetam 500 mg/ Sodium (Chloride) 105 mls @ 210 mls/hr IVPB Q12 [facility] Last Admin: 05/16/17 10:29 Dose: 210 mls/hr Lactobacillus Acidophilus (Bacid Acidophilus) 1 cap PO BID [facility] Last Admin: 05/16/17 10:38 Dose: 1 cap Magnesium Oxide (Mag-Ox) 400 mg PO BID [facility] Last Admin: 05/16/17 10:31 Dose: 400 mg Metoprolol Tartrate (Lopressor) 25 mg PO Q12 [facility] Last Admin: 05/16/17 10:31 Dose: 25 mg Pantoprazole Sodium (Protonix Susp) 40 mg NG DAILY [facility] Last Admin: 05/16/17 10:32 Dose: 40 mg Potassium Chloride (Potassium Chloride Oral Soln) 40 meq NG BID [facility] Thiamine HCl (Vitamin B1 Tab) 100 mg PO DAILY [facility] Last Admin: 05/16/17 10:31 Dose: 100 mg Zinc Sulfate (Zinc Sulfate 220 Mg Cap) 220 mg PO DAILY [facility] Last Admin: 05/16/17 10:31 Dose: 220 mg - Labs Labs: 05/16/17 12:39 05/16/17 12:39 PT 14.6 Seconds (9.8-13.1) H 05/14/17 18:48 INR 1.3 (0.9-1.2) H 05/14/17 18:48 APTT 20.6 Seconds (25.6-37.1) L 05/14/17 18:48 - Constitutional Appears: Chronically Ill - Head Exam Head Exam: NORMAL INSPECTION - Eye Exam Eye Exam: PERRL - ENT Exam Additional comments: Intubated - Neck Exam Neck Exam: Normal Inspection - Respiratory Exam Respiratory Exam: Decreased Breath Sounds (at bases), Rhonchi (scattered at bases) - Cardiovascular Exam Cardiovascular Exam: REGULAR RHYTHM - GI/Abdominal Exam GI & Abdominal Exam: Soft, Normal Bowel Sounds Additional comments: Peg Tube - Extremities Exam Additional comments: L heel DTI, R lateral ankle healing, MSAD R posterior thigh improving, L posterior thigh healed. - Back Exam Additional comments: MSAD sacrum, buttocks (improving), R flank - Neurological Exam Additional comments: Unable to move, non verbal, follows with head verbal stimuli. - Skin Skin Exam: Warm Assessment and Plan (1) Acute respiratory failure Status: Acute (2) Status post tracheostomy Status: Acute (3) Shock Status: Deleted (4) Pneumonia Status: Acute (5) Acute renal failure (ARF) Status: Acute (6) Anemia Status: Acute (7) Hematuria, gross Status: Deleted (8) Thrombocytopenia Status: Resolved (9) History of pulmonary embolus (PE) Status: Acute (10) Pancolitis Status: Deleted (11) UTI (urinary tract infection) Status: Acute - Assessment and Plan (Free Text) Plan: All MSAD improving, 50%, surgical doesn't want to do Colostomy, conceder high risk, Cardiology doesn't wants to pursue any further study, will make arrangement to transfer Pt to LTAC.
[2017-05-16] MEDS: Potassium Chloride 20 mEq/15 ml LIQ UD NG SCH (17:44)
[2017-05-17] MEDS: Albuterol-Ipratrop 3 mg / 0.5 (3 ml) UD INH SCH ×4 (00:44→12:02)
[2017-05-17] MEDS: WATER IVPB SCH ×3 (01:34→13:55)
[2017-05-17] MEDS: AVIBACTAM IVPB SCH ×2 (01:34→10:41)
[2017-05-17] MEDS: DEXTROSE 5% IVPB SCH ×3 (01:34→13:55)
[2017-05-17] MEDS: CEFTAZIDIME IVPB SCH ×2 (01:34→10:41)
[2017-05-17] MEDS: Proshield Plus GEL TOP SCH ×2 (01:35→09:01)
[2017-05-17 08:09] VITALS: RESP 20
[2017-05-17] MEDS: Lactobacillus Acidophilus 500 MU Cap PO SCH (08:59)
[2017-05-17] MEDS: Pantoprazole 40 mg Susp UD NG SCH (08:59)
[2017-05-17] MEDS: Potassium Chloride 20 mEq/15 ml LIQ UD NG SCH (09:00)
[2017-05-17] MEDS: Magnesium Oxide 400 mg Tab UD PO SCH (09:00)
[2017-05-17] MEDS: Cholestyramine 4 gm/Pkt UD PO SCH (09:00)
--- NOTE | 2017-05-17 09:27 | CP.PCM.PN ---
Subjective - Date & Time of Evaluation Date of Evaluation: 05/16/17 Time of Evaluation: 18:30 - Subjective Subjective: pt resting in bed , at bedside HR fluctuant in 90-110 on BB and CCB Objective - Vital Signs/Intake and Output Vital Signs (last 24 hours): Temp Pulse Resp BP Pulse Ox 98.8 F 115 H 20 127/78 100 05/17/17 08:09 05/17/17 08:59 05/17/17 08:09 05/17/17 08:59 05/17/17 08:09 - Medications Medications: Current Medications Acetaminophen (Tylenol 650 Mg Supp) 650 mg ME Q4 PRN PRN Reason: Fever >100.4 F Last Admin: 05/08/17 00:10 Dose: 650 mg Albuterol/Ipratropium (Duoneb 3 Mg/0.5 Mg (3 Ml) Ud) 3 ml INH RQ4 [facility] Last Admin: 05/17/17 08:00 Dose: 3 ml Ascorbic Acid (Vitamin C 250 Mg Tab) 250 mg PO DAILY [facility] Last Admin: 05/17/17 08:59 Dose: 250 mg Cholestyramine Resin (Questran) 4 gm PO DAILY [facility] Last Admin: 05/17/17 09:00 Dose: 4 gm Collagenase (Santyl) 1 applic TOP Q12 [facility] Last Admin: 05/16/17 22:43 Dose: 1 applic Diltiazem HCl (Cardizem) 60 mg PO Q8 [facility] Last Admin: 05/17/17 08:59 Dose: 60 mg Dimethicone (Proshield Plus Skin Protectant) 1 applic TOP Q8 [facility] Last Admin: 05/17/17 09:01 Dose: 1 applic Lacosamide 100 mg/ Dextrose 110 mls @ 110 mls/hr IVPB Q12@0800,1999 [facility] Last Admin: 05/16/17 22:41 Dose: 110 mls/hr Ceftazidime/Avibactam 2.5 gm/ (Dextrose) 100 mls @ 100 mls/hr IVPB Q8H [facility] PRN Reason: Protocol Last Admin: 05/17/17 01:34 Dose: 100 mls/hr Vancomycin HCl 1 gm/ Dextrose 250 mls @ 166.667 mls/hr IVPB Q12H [facility] PRN Reason: Protocol Last Admin: 05/16/17 22:40 Dose: 166.667 mls/hr Levetiracetam 500 mg/ Sodium (Chloride) 105 mls @ 210 mls/hr IVPB Q12 [facility] Last Admin: 05/16/17 22:40 Dose: 210 mls/hr Lactobacillus Acidophilus (Bacid Acidophilus) 1 cap PO BID [facility] Last Admin: 05/17/17 08:59 Dose: 1 cap Magnesium Oxide (Mag-Ox) 400 mg PO BID [facility] Last Admin: 05/17/17 09:00 Dose: 400 mg Metoprolol Tartrate (Lopressor) 25 mg PO Q12 [facility] Last Admin: 05/17/17 08:59 Dose: 25 mg Pantoprazole Sodium (Protonix Susp) 40 mg NG DAILY [facility] Last Admin: 05/17/17 08:59 Dose: 40 mg Potassium Chloride (Potassium Chloride Oral Soln) 40 meq NG BID [facility] Last Admin: 05/17/17 09:00 Dose: 40 meq Thiamine HCl (Vitamin B1 Tab) 100 mg PO DAILY [facility] Last Admin: 05/17/17 08:59 Dose: 100 mg Zinc Sulfate (Zinc Sulfate 220 Mg Cap) 220 mg PO DAILY [facility] Last Admin: 05/17/17 09:00 Dose: 220 mg - Labs Labs: 05/16/17 12:39 05/16/17 12:39 PT 14.6 Seconds (9.8-13.1) H 05/14/17 18:48 INR 1.3 (0.9-1.2) H 05/14/17 18:48 APTT 20.6 Seconds (25.6-37.1) L 05/14/17 18:48 - Constitutional Appears: Toxic, Chronically Ill - Head Exam Head Exam: ATRAUMATIC Additional comments: trached - Eye Exam Eye Exam: EOMI Pupil Exam: NORMAL ACCOMODATION, PERRL - Neck Exam Neck Exam: Normal Inspection - Respiratory Exam Respiratory Exam: Decreased Breath Sounds, Rales, Rhonchi - Cardiovascular Exam Cardiovascular Exam: Tachycardia, RRR, +S1, +S2, Murmur - GI/Abdominal Exam GI & Abdominal Exam: Soft, Normal Bowel Sounds - Neurological Exam Neurological Exam: Alert, Awake, Oriented x3 - Psychiatric Exam Psychiatric exam: Depressed, Flat Affect - Skin Skin Exam: Dry, Pallor, Warm Assessment and Plan (1) CHF (congestive heart failure) Assessment & Plan: Elevated BNP with mild LV systolic dysfunction cont BB add low dose lasix 20mg po daily and low dose acei lisinopril 2.5mg po daily Status: Acute (2) Hypotension Assessment & Plan: BP stable x 48 hours Status: Acute (3) Tachycardia Assessment & Plan: HR stable Status: Acute (4) Preop cardiovascular exam Assessment & Plan: sx colostomy not being done as pt deemed as high risk for perioperative complications Status: Acute (5) Septic shock Status: Acute
[2017-05-17] MEDS: levETIRAcetam 500 MG in Sodium Chloride 0.9% 100 ML IVPB SCH (10:41)
[2017-05-17] MEDS: Vancomycin 1 GM in Dextrose 5% In Water 250 ML IVPB SCH (10:41)
[2017-05-17] MEDS: Santyl Collagenase OINTMENT TOP SCH (10:49)
--- NOTE | 2017-05-17 11:16 | CP.PCM.PN ---
Subjective - Date & Time of Evaluation Date of Evaluation: 05/17/17 Time of Evaluation: 11:14 - Subjective Subjective: No significant changes to clinic today patient remained in respiratory responding to some commands Lab tests reviewed Hypokalemia serum sodium 3.2 continue potassium chloride 40 mEq twice a day. Serum magnesium went down to give stat 2gm magnesium sulfate intravenously And repeated tomorrow Objective - Vital Signs/Intake and Output Vital Signs (last 24 hours): Temp Pulse Resp BP Pulse Ox 98.8 F 115 H 20 127/78 100 05/17/17 08:09 05/17/17 08:59 05/17/17 08:09 05/17/17 08:59 05/17/17 08:09 - Medications Medications: Current Medications Acetaminophen (Tylenol 650 Mg Supp) 650 mg [place] Q4 PRN PRN Reason: Fever >100.4 F Last Admin: 05/08/17 00:10 Dose: 650 mg Albuterol/Ipratropium (Duoneb 3 Mg/0.5 Mg (3 Ml) Ud) 3 ml INH RQ4 [facility] Last Admin: 05/17/17 08:00 Dose: 3 ml Ascorbic Acid (Vitamin C 250 Mg Tab) 250 mg PO DAILY [facility] Last Admin: 05/17/17 08:59 Dose: 250 mg Cholestyramine Resin (Questran) 4 gm PO DAILY [facility] Last Admin: 05/17/17 09:00 Dose: 4 gm Collagenase (Santyl) 1 applic TOP Q12 [facility] Last Admin: 05/17/17 10:49 Dose: 1 applic Diltiazem HCl (Cardizem) 60 mg PO Q8 [facility] Last Admin: 05/17/17 08:59 Dose: 60 mg Dimethicone (Proshield Plus Skin Protectant) 1 applic TOP Q8 [facility] Last Admin: 05/17/17 09:01 Dose: 1 applic Lacosamide 100 mg/ Dextrose 110 mls @ 110 mls/hr IVPB Q12@0800,2000 [facility] Last Admin: 05/16/17 22:41 Dose: 110 mls/hr Ceftazidime/Avibactam 2.5 gm/ (Dextrose) 100 mls @ 100 mls/hr IVPB Q8H [facility] PRN Reason: Protocol Last Admin: 05/17/17 10:41 Dose: 100 mls/hr Vancomycin HCl 1 gm/ Dextrose 250 mls @ 166.667 mls/hr IVPB Q12H [facility] PRN Reason: Protocol Last Admin: 05/17/17 10:41 Dose: 166.667 mls/hr Levetiracetam 500 mg/ Sodium (Chloride) 105 mls @ 210 mls/hr IVPB Q12 [facility] Last Admin: 05/17/17 10:41 Dose: 210 mls/hr Magnesium Sulfate 2 gm/ Sodium (Chloride) 104 mls @ 104 mls/hr IVPB ONCE ONE PRN Reason: 2 GM/HR Stop: 05/17/17 12:12 Lactobacillus Acidophilus (Bacid Acidophilus) 1 cap PO BID [facility] Last Admin: 05/17/17 08:59 Dose: 1 cap Magnesium Oxide (Mag-Ox) 400 mg PO BID [facility] Last Admin: 05/17/17 09:00 Dose: 400 mg Metoprolol Tartrate (Lopressor) 25 mg PO Q12 [facility] Last Admin: 05/17/17 08:59 Dose: 25 mg Pantoprazole Sodium (Protonix Susp) 40 mg NG DAILY [facility] Last Admin: 05/17/17 08:59 Dose: 40 mg Potassium Chloride (Potassium Chloride Oral Soln) 40 meq NG BID [facility] Last Admin: 05/17/17 09:00 Dose: 40 meq Thiamine HCl (Vitamin B1 Tab) 100 mg PO DAILY [facility] Last Admin: 05/17/17 08:59 Dose: 100 mg Zinc Sulfate (Zinc Sulfate 220 Mg Cap) 220 mg PO DAILY [facility] Last Admin: 05/17/17 09:00 Dose: 220 mg - Labs Labs: 05/16/17 12:39 05/16/17 12:39 PT 14.6 Seconds (9.8-13.1) H 05/14/17 18:48 INR 1.3 (0.9-1.2) H 05/14/17 18:48 APTT 20.6 Seconds (25.6-37.1) L 05/14/17 18:48 Assessment and Plan (1) Acute renal injury due to circulatory failure Status: Acute (2) Altered mental status Status: Acute (3) GI bleed Status: Acute
[2017-05-17 12:13] VITALS: BP 104/72; PULSE 105; TEMP 98.2
[2017-05-17] MEDS: LACOSAMIDE IVPB SCH (13:55)
[2017-05-17] MEDS: Magnesium Sulfate 2 gm/50 ml 2 GM/50 ML BAG IV ONE ×2 (13:56→13:59)
--- NOTE | 2017-05-17 14:03 | CP.PCM.PN ---
Subjective - Date & Time of Evaluation Date of Evaluation: 05/17/17 - Subjective Subjective: F/U Respiratory Failure. Pt doing well, no A/D, awake, follows conversations with eyes, at bedside. Objective - Vital Signs/Intake and Output Vital Signs (last 24 hours): Temp Pulse Resp BP Pulse Ox 98.2 F 105 H 20 104/72 100 05/17/17 12:12 05/17/17 12:12 05/17/17 12:12 05/17/17 12:12 05/17/17 12:12 - Medications Medications: Current Medications Acetaminophen (Tylenol 650 Mg Supp) 650 mg NE Q4 PRN PRN Reason: Fever >100.4 F Last Admin: 05/08/17 00:10 Dose: 650 mg Albuterol/Ipratropium (Duoneb 3 Mg/0.5 Mg (3 Ml) Ud) 3 ml INH RQ4 [facility] Last Admin: 05/17/17 12:02 Dose: 3 ml Ascorbic Acid (Vitamin C 250 Mg Tab) 250 mg PO DAILY [facility] Last Admin: 05/17/17 08:59 Dose: 250 mg Cholestyramine Resin (Questran) 4 gm PO DAILY [facility] Last Admin: 05/17/17 09:00 Dose: 4 gm Collagenase (Santyl) 1 applic TOP Q12 [facility] Last Admin: 05/17/17 10:49 Dose: 1 applic Diltiazem HCl (Cardizem) 60 mg PO Q8 [facility] Last Admin: 05/17/17 08:59 Dose: 60 mg Dimethicone (Proshield Plus Skin Protectant) 1 applic TOP Q8 [facility] Last Admin: 05/17/17 09:01 Dose: 1 applic Lacosamide 100 mg/ Dextrose 110 mls @ 110 mls/hr IVPB Q12@08,1999 [facility] Last Admin: 05/17/17 13:55 Dose: Not Given Ceftazidime/Avibactam 2.5 gm/ (Dextrose) 100 mls @ 100 mls/hr IVPB Q8H [facility] PRN Reason: Protocol Last Admin: 05/17/17 10:41 Dose: 100 mls/hr Vancomycin HCl 1 gm/ Dextrose 250 mls @ 166.667 mls/hr IVPB Q12H [facility] PRN Reason: Protocol Last Admin: 05/17/17 10:41 Dose: 166.667 mls/hr Levetiracetam 500 mg/ Sodium (Chloride) 105 mls @ 210 mls/hr IVPB Q12 [facility] Last Admin: 05/17/17 10:41 Dose: 210 mls/hr Lactobacillus Acidophilus (Bacid Acidophilus) 1 cap PO BID [facility] Last Admin: 05/17/17 08:59 Dose: 1 cap Magnesium Oxide (Mag-Ox) 400 mg PO BID [facility] Last Admin: 05/17/17 09:00 Dose: 400 mg Metoprolol Tartrate (Lopressor) 25 mg PO Q12 [facility] Last Admin: 05/17/17 08:59 Dose: 25 mg Pantoprazole Sodium (Protonix Susp) 40 mg NG DAILY [facility] Last Admin: 05/17/17 08:59 Dose: 40 mg Potassium Chloride (Potassium Chloride Oral Soln) 40 meq NG BID [facility] Last Admin: 05/17/17 09:00 Dose: 40 meq Thiamine HCl (Vitamin B1 Tab) 100 mg PO DAILY [facility] Last Admin: 05/17/17 08:59 Dose: 100 mg Zinc Sulfate (Zinc Sulfate 220 Mg Cap) 220 mg PO DAILY [facility] Last Admin: 05/17/17 09:00 Dose: 220 mg - Labs Labs: 05/16/17 12:39 05/16/17 12:39 PT 14.6 Seconds (9.8-13.1) H 05/14/17 18:48 INR 1.3 (0.9-1.2) H 05/14/17 18:48 APTT 20.6 Seconds (25.6-37.1) L 05/14/17 18:48 - Constitutional Appears: Chronically Ill - Head Exam Head Exam: NORMAL INSPECTION - Eye Exam Eye Exam: PERRL - ENT Exam Additional comments: Intubated - Neck Exam Neck Exam: Normal Inspection - Respiratory Exam Respiratory Exam: Decreased Breath Sounds (at bases), Rhonchi (scattered at bases) - Cardiovascular Exam Cardiovascular Exam: REGULAR RHYTHM - GI/Abdominal Exam GI & Abdominal Exam: Soft, Normal Bowel Sounds Additional comments: Peg Tube - Extremities Exam Additional comments: L heel DTI, R lateral ankle healing, MSAD R posterior thigh improving, L posterior thigh healing. - Back Exam Additional comments: MSAD sacrum, buttocks healing, R flank. - Neurological Exam Additional comments: Unable to move, non verbal, follows with head verbal stimuli. - Skin Skin Exam: Warm Assessment and Plan (1) Acute respiratory failure Status: Acute (2) Status post tracheostomy Status: Acute (3) Shock Status: Deleted (4) Pneumonia Status: Acute (5) Acute renal failure (ARF) Status: Acute (6) Anemia Status: Acute (7) Hematuria, gross Status: Deleted (8) Thrombocytopenia Status: Resolved (9) History of pulmonary embolus (PE) Status: Acute (10) Pancolitis Status: Deleted (11) UTI (urinary tract infection) Status: Acute - Assessment and Plan (Free Text) Plan: Pt improved and stable to be transferred to LT[facility] today, follow instruction medication sheet.
--- NOTE | 2017-05-17 23:44 | CP.PCM.PN ---
Subjective - Date & Time of Evaluation Date of Evaluation: 05/17/17 Time of Evaluation: 09:30 - Subjective Subjective: awake and responsive HR controlled Objective - Vital Signs/Intake and Output Vital Signs (last 24 hours): Temp Pulse Resp BP Pulse Ox 98.2 F 105 H 20 104/72 100 05/17/17 12:12 05/17/17 12:12 05/17/17 12:12 05/17/17 12:12 05/17/17 12:12 - Labs Labs: 05/16/17 12:39 05/16/17 12:39 PT 14.6 Seconds (9.8-13.1) H 05/14/17 18:48 INR 1.3 (0.9-1.2) H 05/14/17 18:48 APTT 20.6 Seconds (25.6-37.1) L 05/14/17 18:48 - Constitutional Appears: Chronically Ill - Head Exam Head Exam: NORMOCEPHALIC - Eye Exam Eye Exam: EOMI, PERRL - ENT Exam ENT Exam: Mucous Membranes Moist - Neck Exam Neck Exam: Full ROM, Normal Inspection - Respiratory Exam Respiratory Exam: Decreased Breath Sounds, Rales - Cardiovascular Exam Cardiovascular Exam: REGULAR RHYTHM, +S1, +S2, Murmur - GI/Abdominal Exam GI & Abdominal Exam: Soft, Normal Bowel Sounds - Extremities Exam Extremities Exam: Normal Capillary Refill, Pedal Edema - Neurological Exam Neurological Exam: Awake, Oriented x3 - Psychiatric Exam Psychiatric exam: Depressed, Flat Affect - Skin Skin Exam: Dry, Intact, Warm Assessment and Plan (1) CHF (congestive heart failure) Assessment & Plan: BNP elevated EF 40-45% intermittent lasix prn cont bb consider adding low dose acei Status: Acute (2) Hypotension Status: Acute (3) Tachycardia Status: Acute (4) Preop cardiovascular exam Assessment & Plan: sx deemed high risk high cardiac risk Status: Acute (5) Septic shock Status: Acute
--- NOTE | 2017-05-18 11:13 | PCM.EEG ---
Electroencephalogram Report - Electroencephalogram Report Procedure Date: 05/10/17 Interpretation: Indication: Possible seizure. Medications were reviewed. Technical: This is a digitally recorded electroencephalogram. The international 10-20 electrode placement system is used for scalp electrode placement. Another channel was used for for ECG. The data are stored digitally and reviewed in reformatted montages for optimal display. Background: 9 to 10 hertz alpha activity was seen. Maximal over the posterior head region. These activities are symmetric on both sides. Focal abnormality: Intermittent focal slowing was seen. Mainly over the Left temporal area. This is seen over the Left hemisphere. Impression: This EEG is abnormal. Epileptiform discharge was seen. This can represent a potential seizure focus. Some focal slowing was seen, suggestive of a focal abnormality. Clinical correlation is needed.
--- NOTE | 2017-05-18 11:30 | PCM.EEG ---
Electroencephalogram Report - Electroencephalogram Report Procedure Date: 05/16/17 Interpretation: Indication: Concern for seizure. Medications were reviewed. Technical: This is a digitally recorded electroencephalogram. The international 10-20 electrode placement system is used for scalp electrode placement. Eighteen channels of scalp EEG are recorded Another channel was used for for ECG. The data are stored digitally and reviewed in reformatted montages for optimal display. Diffuse Abnormality: No well formed alpha activity was seen. Mixed diffuse theta and delta activity was seen. Frontal intermittent rhythm delta slowing was seen. Focal abnormality: Intermittent focal slowing was seen. Periodic lateralized discharge was seen. Mainly over the Right temporal area. This is seen over the Right hemisphere. Impression: This EEG is abnormal. Diffuse slowing is seen, suggestive of a diffuse abnormality of the brain. Epileptiform discharge was seen. This can represent a potential seizure focus. Some focal slowing was seen, suggestive of a focal abnormality. Clinical correlation is needed.
--- NOTE | 2017-05-19 10:33 | RAD ---
PROCEDURE: CHEST RADIOGRAPH, 1 VIEW HISTORY: LINE PLACEMENT COMPARISON: Frontal chest radiograph 04/04/2017. FINDINGS: A tunneled right center venous dialysis catheter is now identified placed in the interval with the tips terminating at the right atrium by an apparent right internal jugular approach. Endotracheal tube is been retracted terminating approximately 2 cm above the sloane. LUNGS: Limited residual patchy atelectasis or infiltrate seen the medial right base with remaining lung barrientos clear. PLEURA: No pneumothorax or pleural fluid seen. CARDIOVASCULAR: Normal. OSSEOUS STRUCTURES: No significant abnormalities. VISUALIZED UPPER ABDOMEN: Inferior vena cava filter is again seen as well as surgical clips in the right upper quadrant abdomen. OTHER FINDINGS: None. IMPRESSION: Total right central venous dialysis catheter now identified in position. No pneumothorax bilaterally. Limited residual atelectasis or infiltrate medial right base. Endotracheal tube adjusted adequately.
== END 2017-05-17 14:35 | disposition short-term general hospital (02) | DRG 4 ==
LOC: H.ER 05:29 → H.ERHOLD 08:53 → H.ICU/CCU 09:54 → H.TEL 05-05 14:03 → H.ICU/CCU 05-09 15:22 → H.TEL 05-11 17:25
PROVIDERS: ADMIT Internal Medicine Pulmonary Disease; ATTEND Internal Medicine Pulmonary Disease
PROC: 5A1955Z Respiratory Ventilation, Greater than 96 Consecutive Hours (ICD-10-PCS; 2017-04-04)
PROC: 5A1D70Z Performance of Urinary Filtration, Intermittent, Less than 6 Hours Per Day (ICD-10-PCS; 2017-04-04)
PROC: 30233N1 Transfusion of Nonautologous Red Blood Cells into Peripheral Vein, Percutaneous Approach (ICD-10-PCS; 2017-04-04)
PROC: 0BH17EZ Insertion of Endotracheal Airway into Trachea, Via Natural or Artificial Opening (ICD-10-PCS; 2017-04-04)
PROC: 05HM33Z Insertion of Infusion Device into Right Internal Jugular Vein, Percutaneous Approach (ICD-10-PCS; 2017-04-04)
PROC: B543ZZA Ultrasonography of Right Jugular Veins, Guidance (ICD-10-PCS; 2017-04-04)
PROC: 0BJ08ZZ Inspection of Tracheobronchial Tree, Via Natural or Artificial Opening Endoscopic (ICD-10-PCS; 2017-04-19)
PROC: 0B113F4 Bypass Trachea to Cutaneous with Tracheostomy Device, Percutaneous Approach (ICD-10-PCS; principal; 2017-04-19 13:00)
PROC: 05H533Z Insertion of Infusion Device into Right Subclavian Vein, Percutaneous Approach (ICD-10-PCS; 2017-04-22)
PROC: 0DH63UZ Insertion of Feeding Device into Stomach, Percutaneous Approach (ICD-10-PCS; 2017-05-09)
PROC: 3E0G76Z Introduction of Nutritional Substance into Upper GI, Via Natural or Artificial Opening (ICD-10-PCS; 2017-05-09)
DX: A41.50 Gram-negative sepsis, unspecified (principal); D65 Disseminated intravascular coagulation [defibrination syndrome]; G72.81 Critical illness myopathy; G62.81 Critical illness polyneuropathy; J15.0 Pneumonia due to Klebsiella pneumoniae; N17.0 Acute kidney failure with tubular necrosis; R57.1 Hypovolemic shock; R65.21 Severe sepsis with septic shock; I95.3 Hypotension of hemodialysis; G93.1 Anoxic brain damage, not elsewhere classified; K56.7 Ileus, unspecified; D62 Acute posthemorrhagic anemia; J96.01 Acute respiratory failure with hypoxia; G93.41 Metabolic encephalopathy; N18.6 End stage renal disease; R57.8 Other shock; I50.21 Acute systolic (congestive) heart failure; J95.851 Ventilator associated pneumonia; E87.0 Hyperosmolality and hypernatremia; E87.2 Acidosis; E87.1 Hypo-osmolality and hyponatremia; J98.11 Atelectasis; N13.30 Unspecified hydronephrosis; N39.0 Urinary tract infection, site not specified; R18.8 Other ascites; Z99.11 Dependence on respirator [ventilator] status; E66.01 Morbid (severe) obesity due to excess calories; E83.39 Other disorders of phosphorus metabolism; Z85.41 Personal history of malignant neoplasm of cervix uteri; B95.2 Enterococcus as the cause of diseases classified elsewhere; E16.2 Hypoglycemia, unspecified; Z68.32 Body mass index [BMI] 32.0-32.9, adult; E83.42 Hypomagnesemia; E83.51 Hypocalcemia; E83.52 Hypercalcemia; E87.6 Hypokalemia; F17.210 Nicotine dependence, cigarettes, uncomplicated; K29.70 Gastritis, unspecified, without bleeding; K76.0 Fatty (change of) liver, not elsewhere classified; R13.10 Dysphagia, unspecified; R31.0 Gross hematuria; R32 Unspecified urinary incontinence; R56.9 Unspecified convulsions; Z79.01 Long term (current) use of anticoagulants; Z79.899 Other long term (current) drug therapy; Z85.42 Personal history of malignant neoplasm of other parts of uterus; Z85.43 Personal history of malignant neoplasm of ovary; Z86.711 Personal history of pulmonary embolism; Z90.49 Acquired absence of other specified parts of digestive tract; Z90.710 Acquired absence of both cervix and uterus; Z93.1 Gastrostomy status; Z99.2 Dependence on renal dialysis; E88.09 Other disorders of plasma-protein metabolism, not elsewhere classified; N13.9 Obstructive and reflux uropathy, unspecified; R00.0 Tachycardia, unspecified; R15.9 Full incontinence of feces; R73.9 Hyperglycemia, unspecified; Z86.73 Personal history of transient ischemic attack (TIA), and cerebral infarction without residual deficits; L30.8 Other specified dermatitis; Z88.0 Allergy status to penicillin

== ENCOUNTER 2018-01-03 16:41 | Inpatient (IN) | payer MEDICARE ==
[2018-01-03 16:42] VITALS: BMI 29.9
[2018-01-03] MEDS ORDERED: Sodium Chloride 0.9% 1,000 ML IV STA (17:18)
[2018-01-03 17:29] LABS: VENOUS BLOOD GAS BASE EXCESS 1.8 mmol/L (0.0-2.0); VENOUS BLOOD GAS PCO2 53 mmHg (40-60); VENOUS BLOOD GAS PO2 30 mm/Hg (30-55); VENOUS BLOOD PH 7.34 (7.32-7.43)
[2018-01-03 17:34] LABS: BASO # 0.1 K/uL (0.0-0.2); BASO % 0.3 % (0.0-2.0); EOS # 0.4 K/uL (0.0-0.7); EOS % 2.2 % (0.0-4.0); HEMOGLOBIN 11.5 g/dL (12.0-16.0); LYMPH # 1.8 K/uL (1.0-4.3); LYMPH % 9.4 % (20.0-40.0); MEAN CELL VOLUME 87.8 fl (81.0-99.0); MEAN CORPUSCULAR HEMOGLOBIN 28.5 pg (27.0-31.0); MEAN CORPUSCULAR HGB CONC 32.4 g/dL (33.0-37.0); MONO # 1.8 K/uL (0.0-0.8); NEUT # 15.4 K/uL (1.8-7.0); NEUT % 79.1 % (50.0-75.0); PLATELET COUNT 401 K/uL (130-400); RBC 4.03 Mil/uL (3.80-5.20); RED CELL DISTRIBUTION WIDTH 17.2 % (11.5-14.5); WHITE BLOOD COUNT 19.5 K/uL (4.8-10.8)
[2018-01-03] MEDS ORDERED: Iohexol 240 (50 ml) PO ONE (17:35)
[2018-01-03] MEDS ORDERED: Sodium Chloride 0.9% 50 ML IV ONE (17:45)
[2018-01-03] MEDS ORDERED: Iohexol 300 100 ML IJ ONE (17:45)
[2018-01-03] MEDS ORDERED: Cefepime 1 GM in Sodium Chloride 0.9% 100 ML IVPB ONE (17:45)
[2018-01-03 17:48] LABS: ALB/GLOB RATIO 0.8 (1.0-2.1); ALBUMIN 3.8 g/dL (3.5-5.0); ALT/SGPT 26 U/L (9-52); AST/SGOT 21 U/L (14-36); BLOOD UREA NITROGEN 24 mg/dl (7-17); GFR NON-AFRICAN AMERICAN > 60
--- NOTE | 2018-01-03 18:01 | ED PDOC ---
HPI: Female Pain Time Seen by Provider: 01/03/18 17:04 Chief Complaint (Nursing): Female Genitourinary Chief Complaint (Provider): Female Genitourinary History Per: Family History/Exam Limitations: no limitations Onset/Duration Of Symptoms: Days (x2) Current Symptoms Are (Timing): Still Present Additional Complaint(s): 52 year old female with a hx of cervical cancer, indwelling castillo catheter in place, PEG, hysterectomy, and tracheostomy, presents to the ED via EMS with family member for evaluation of fever and possible urinary infection. As per family member present, for the past two days the urine in the patient's catheter has been cloudy and she has been febrile. Otherwise, denies vomiting, diarrhea, cough, chest pain, and shortness of breath. PMD: Kd Saucedo Past Medical History Reviewed: Historical Data, Nursing Documentation, Vital Signs Vital Signs: Last Vital Signs Temp 98.0 F 01/03/18 16:49 Pulse 110 H 01/03/18 16:49 Resp 18 01/03/18 16:49 BP 115/80 01/03/18 16:49 Pulse Ox 98 01/03/18 16:49 - Medical History PMH: Gastritis, Malignancy (cervical cancer (remission since 2014)), Pneumonia, Pulmonary Embolism - Surgical History Surgical History: Cholecystectomy Other surgeries: hysterectomy, tracheostomy, PEG - Family History Family History: States: Unknown Family Hx - Living Arrangements Living Arrangements: With Family - Home Medications Home Medications: Ambulatory Orders Medication Instructions Recorded Aluminum Hydroxide/Magnesium H 30 ml PEG Q8 PRN 01/03/18 [Maalox 30 ml] Clotrimazole/Betamethasone 1 appl TOP BID 01/03/18 [Lotrisone] Docusate [Colace LIQUID] 100 mg PEG DAILY 01/03/18 Gabapentin [Neurontin] 100 mg PEG Q8 01/03/18 Magnesium Oxide [Magox 400] 400 mg PEG BID 01/03/18 Metoprolol Tartrate [Lopressor] 25 mg PEG Q12 01/03/18 Nystatin [Mycostatin Cream] 1 appl TOP BID 01/03/18 Omeprazole [Omeprazole] 20 mg PEG DAILY 01/03/18 Rivaroxaban [Xarelto] 20 mg PEG QPM 01/03/18 Sertraline [Zoloft] 25 mg PO HS 01/03/18 Zinc Oxide [Desitin Original] 1 appl TOP DAILY 01/03/18 levETIRAcetam [Keppra] 500 mg PEG Q12 01/03/18 - Allergies Allergies/Adverse Reactions: Allergies Allergy/AdvReac Type Severity Reaction Status Date / Time cimetidine [From Tagamet] Allergy RASH Verified 04/04/17 05:33 nickel Allergy RASH Verified 04/04/17 05:34 Penicillins Allergy RASH Verified 04/04/17 05:33 Review of Systems ROS Statement: Except As Marked, All Systems Reviewed And Found Negative Constitutional: Positive for: Fever Cardiovascular: Negative for: Chest Pain Respiratory: Negative for: Cough, Shortness of Breath Gastrointestinal: Negative for: Vomiting, Diarrhea Genitourinary Female: Positive for: Other (cloudy urine) Physical Exam - Reviewed Nursing Documentation Reviewed: Yes Vital Signs Reviewed: Yes - Physical Exam Appears: Positive for: No Acute Distress (comfortable, but appears chronically ill) Head Exam: Positive for: ATRAUMATIC, NORMOCEPHALIC Skin: Positive for: Normal Color, Warm, Dry Eye Exam: Positive for: Normal appearance ENT: Positive for: Normal ENT Inspection Neck: Positive for: Painless ROM, Supple. Negative for: Normal (tracheostomy is present ) Cardiovascular/Chest: Positive for: Tachycardia (with regular rhythm) Respiratory: Positive for: Normal Breath Sounds. Negative for: Accessory Muscle Use, Respiratory Distress Gastrointestinal/Abdominal: Positive for: Soft, Other (PEG tube present with no surrounding erythema, swelling, discharge, or bleeding). Negative for: Tenderness Back: Positive for: Normal Inspection Extremity: Positive for: Normal ROM Neurologic/Psych: Positive for: Alert, Oriented (x3) - Laboratory Results Result Diagrams: 01/05/18 12:16 01/04/18 11:56 - ECG O2 Sat by Pulse Oximetry: 98 (RA) Pulse Ox Interpretation: Normal Medical Decision Making Medical Decision Making: Time: 1700 Initial Impression: urinary tract infection, fever Ddx: UTI, sepsis, intra-abdominal abscess, also consider other intra-abdominal infection or pneumonia Initial Plan: --VBG --Abdomen and Pelvis CT --EKG --CMP --Urine dipstick --CBC with differential --CXR Portable --Maxipime 1 gm Normal Saline 100 ml IVPB --Normal Saline IV --Iohexol 50 ml PO --Vancomycin 1 gm Normal Saline 250 ml IVPB --Urinalysis Scribe Attestation: Documented by Josefa Zarate, acting as a scribe for Jeff Christianson MD. Provider Scribe Attestation: All medical record entries made by the Scribe were at my direction and personally dictated by me. I have reviewed the chart and agree that the record accurately reflects my personal performance of the history, physical exam, medical decision making, and the department course for this patient. I have also personally directed, reviewed, and agree with the discharge instructions and disposition. Disposition - Clinical Impression Clinical Impression: Sepsis, UTI (urinary tract infection) - Patient ED Disposition Is Patient to be Admitted: Yes Discussed With : Jeferson Martel Doctor Will See Patient In The: Hospital Counseled Patient/Family Regarding: Studies Performed, Diagnosis - Disposition Disposition Time: 18:30 Condition: FAIR - Pt Status Changed To: Hospital Disposition Of: Inpatient - Admit Certification Admit to Inpatient:: After my assessment, the patient will require hospitalization for at least two midnights. This is because of the severity of symptoms shown, intensity of services needed, and/or the medical risk in this patient being treated as an outpatient. - POA Present On Arrival: Cath Associated UTI
[2018-01-03] MEDS ORDERED: Iohexol 240 (50 ml) ONE ×2 (18:17→21:06)
[2018-01-03 18:18] LABS: SQUAMOUS EPITHIAL 1 /hpf (0-5); URINE BACTERIA FEW (<OCC); URINE BILIRUBIN NEGATIVE (NEGATIVE); URINE BLOOD SMALL (NEGATIVE); URINE CLARITY TURBID (Clear); URINE COLOR YELLOW (YELLOW); URINE GLUCOSE (UA) NEG (Normal); URINE HYALINE CAST 0-2 /hpf (0-2); URINE LEUKOCYTE ESTERASE LARGE Leu/uL (Negative); URINE PROTEIN 100 mg/dL (NEGATIVE); URINE UROBILINOGEN 0.2-1.0 mg/dL (0.2-1.0); WBC CLUMPS MOD /hpf
--- NOTE | 2018-01-03 18:23 | RAD ---
Date of service: 01/03/2018 HISTORY: Sepsis Patient COMPARISON: 05/09/2017 FINDINGS: LUNGS: No active pulmonary disease. PLEURA: No significant pleural effusion identified, no pneumothorax apparent. CARDIOVASCULAR: No radiographic findings to suggest acute or significant cardiovascular disease. OSSEOUS STRUCTURES: No significant abnormalities. VISUALIZED UPPER ABDOMEN: Normal. OTHER FINDINGS: Stable, satisfactory position of tracheostomy device. Removal of support apparatus since the prior study: PICC line and nasogastric tube. IMPRESSION: No active disease. No significant interval change compared to the prior examination(s).
[2018-01-03] MEDS ORDERED: Vancomycin 1 g Inj ONE (18:51)
[2018-01-03 19:07] LABS: ANISOCYTOSIS SLIGHT; BANDS 2 % (0-2); EOSINOPHIL 2 % (0-7); LYMPHOCYTE 10 % (20-50); MONOCYTE 9 % (0-10); NEUTROPHIL 77 % (42-75); PLATELET ESTIMATE NORMAL (NORMAL); POIKILOCYTOSIS SLIGHT; POLYCHROMIC SLIGHT; TOTAL CELLS COUNTED 100
[2018-01-03 21:19] LABS: VENOUS BLOOD GAS BASE EXCESS -10.7 mmol/L (0.0-2.0); VENOUS BLOOD GAS PCO2 31 mmHg (40-60); VENOUS BLOOD GAS PO2 31 mm/Hg (30-55); VENOUS BLOOD PH 7.29 (7.32-7.43)
[2018-01-03 21:32] LABS: VENOUS BLOOD GAS BASE EXCESS -11.3 mmol/L (0.0-2.0); VENOUS BLOOD GAS PCO2 30 mmHg (40-60); VENOUS BLOOD GAS PO2 36 mm/Hg (30-55); VENOUS BLOOD PH 7.28 (7.32-7.43)
[2018-01-03] MEDS ORDERED: Potassium Chloride 20 mEq ER Tab PO ONE ×2 (21:35→21:47)
[2018-01-03] MEDS ORDERED: Potassium CL 10 MEQ/50 ML 50 ML IVPB SCH (22:00)
[2018-01-03] MEDS ORDERED: Alum-Mag Hydrox-Simethicone Susp (30 mL) PEG PRN (22:53)
[2018-01-04] MEDS ORDERED: KCL 40MEQ/NS 1L 1,000 ML IV SCH
[2018-01-04] MEDS: Cefepime 1 GM in Sodium Chloride 0.9% 100 ML IVPB SCH ×2 (00:53→09:24)
--- NOTE | 2018-01-04 07:21 | CARD ---
APPROVED REPORT Date of service: 01/03/2018 <Conclusion> Sinus tachycardia Otherwise normal ECG
--- NOTE | 2018-01-04 09:23 | CP.PCM.CON ---
History of Present Illness - History of Present Illness History of Present Illness: Infectious Disease Consultation Note- asked to see this patietn at the request of for r/o sepsis /UTI. HPI- History obtained from patient's who is at bedside since pt. has trache and can't verbalizes but can nod yes or no to questions. Patient is a 52 year old female with extensive medical history including cervical CA s/p total hysterectimy and chemo and in remission fromn that and has had negative pap smears routinely post that , CVA in 03/2017 s/p intubation and eventually trached and s/p peg tube and indwelling castillo cath who was brought to ED to be evaluated because it was noted to have cloudy urine in castillo and low grade temp and hence pt. was admitted for r/o urosepsis. as per pt's pt. has had multiple sepsis and infections in the past year or so including myultiple staph abscesses on her adbomen and skin , multiple UTIs , has been in and out of hospitals including [facility] and [facility] . currently pt. is awake and alert , she denies any abd. pain or any fever now, no diarrhea. h. pt's castillo was changed in the ED here last night. no increased secretion from her trache site. upon further review of patient's med records from 04/10/2017 pt. was in ICU here , sepsis with k.pneumonia and e.feclais bacteremia was intubated and MDR pseudomonas UTI was seen by ID at that time and was on AVycaz for MDR pseudomonas UTI . pt. had ureteral stent at that time for hydronephrosis, no longer has the stent as per med records. Allergy- PCN ( hives) , has taken cephalosporins w/o any side effects Review of Systems - Review of Systems Review of Systems: ROS_ + fever at home, cloudy urine at home, NO abd. pain, no diarrhea, no sob, no chest pain Past Patient History - Past Medical History & Family History Past Medical History?: Yes - Past Social History Smoking Status: Never Smoked Home Situation {Lives}: With Family - CARDIAC Hx Cardiac Disorders: Yes Hx Hypertension: Yes - PULMONARY Hx Pneumonia: Yes Hx Pulmonary Embolism: Yes - NEUROLOGICAL HX Cerebrovascular Accident: Yes Hx Paralysis: Yes - HEENT Hx HEENT Problems: No - RENAL Hx Chronic Kidney Disease: Yes Other/Comment: hydronephrosis, R ureteral stent and removal (01/27/17). 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) - ENDOCRINE/METABOLIC Hx Endocrine Disorders: No - HEMATOLOGICAL/ONCOLOGICAL Hx Blood Disorders: Yes Hx AIDS: No Hx Blood Transfusions: Yes Hx Blood Transfusion Reaction: No Hx Chemotherapy: Yes - INTEGUMENTARY Hx Dermatological Problems: Yes Other/Comment: Sacral excoriations - MUSCULOSKELETAL/RHEUMATOLOGICAL Hx Musculoskeletal Disorders: No Hx Falls: No - GASTROINTESTINAL Hx Gastritis: Yes - GENITOURINARY/GYNECOLOGICAL Hx Genitourinary Disorders: Yes Hx Cervical Cancer: Yes Hx Ovarian Cancer: Yes Hx Urinary Tract Infection: Yes - PSYCHIATRIC Hx Psychophysiologic Disorder: No Hx Substance Use: No - SURGICAL HISTORY Hx Appendectomy: Yes Hx Cholecystectomy: Yes Hx Orthopedic Surgery: Yes (Right TKR) - ANESTHESIA Hx Anesthesia: Yes Hx Anesthesia Reactions: No Meds Allergies/Adverse Reactions: Allergies Allergy/AdvReac Type Severity Reaction Status Date / Time cimetidine [From [facility]] Allergy RASH Verified 04/04/17 05:33 nickel Allergy RASH Verified 04/04/17 05:34 Penicillins Allergy RASH Verified 04/04/17 05:33 - Medications Medications: Current Medications Acetaminophen (Tylenol 325mg Tab) 650 mg PEG Q6 PRN PRN Reason: Pain, Mild (1-3) Al Hydrox/Mg Hydrox/Simethicone (Maalox Plus 30 Ml) 30 ml PEG Q8 PRN PRN Reason: Indigestion / Heartburn Clotrimazole (Lotrimin 1% Cream) 1 applic TOP BID [facility] Docusate Sodium (Colace Liquid) 100 mg PEG DAILY [facility] Gabapentin (Neurontin) 100 mg PEG Q8 [facility] Last Admin: 01/04/18 00:54 Dose: 100 mg Cefepime HCl 1 gm/ Sodium (Chloride) 100 mls @ 100 mls/hr IVPB Q8 [facility] PRN Reason: Protocol Last Admin: 01/04/18 00:53 Dose: 100 mls/hr Vancomycin HCl 1 gm/ Sodium (Chloride) 250 mls @ 166.667 mls/hr IVPB Q12 [facility] PRN Reason: Protocol Levetiracetam (Keppra) 500 mg PEG Q12 [facility] Magnesium Oxide (Mag-Ox) 400 mg PEG BID [facility] Metoprolol Tartrate (Lopressor) 25 mg PEG Q12 [facility] Morphine Sulfate (Morphine) 1 mg IVP Q6 PRN PRN Reason: Pain, moderate (4-7) Nystatin (Mycostatin Cream) 1 applic TOP BID [facility] Pantoprazole Sodium (Protonix Susp) 40 mg PEG DAILY [facility] Petrolatum (Desitin Maximum Strength Topical 40% Oint) 1 applic TOP DAILY [facility] Rivaroxaban (Xarelto) 20 mg PEG QPM [facility] PRN Reason: Protocol Sertraline HCl (Zoloft) 25 mg PO HS [facility] Physical Exam - Constitutional Appears: No Acute Distress - Head Exam Head Exam: ATRAUMATIC - Eye Exam Eye Exam: EOMI - ENT Exam Additional comments: has trach in place, no erythema and no discharge from around trach site - Neck Exam Additional comments: supple - Respiratory Exam Respiratory Exam: NORMAL BREATHING PATTERN Additional comments: Good breath sounds heard B/L no wheezing - Cardiovascular Exam Cardiovascular Exam: RRR, +S1, +S2 - GI/Abdominal Exam GI & Abdominal Exam: Normal Bowel Sounds, Soft Additional comments: NT, ND peg tube site clean/dry/intact old surgical cscar seen no erythema no lesions no guarding, no rebound - Extremities Exam Additional comments: no edema b/l LE - Neurological Exam Neurological exam: Alert Additional comments: awake - Skin Additional comments: stage 1 decub but very superficial , denuded skin only, no opening Results - Vital Signs Recent Vital Signs: Last Vital Signs Temp 98.1 F 01/04/18 08:00 Pulse 115 H 01/04/18 08:00 Resp 20 01/04/18 08:00 BP 110/78 01/04/18 08:00 Pulse Ox 96 01/04/18 08:00 - Labs Result Diagrams: 01/04/18 11:56 01/04/18 11:56 Labs: Laboratory Results - last 24 hr 01/03/18 01/03/18 01/03/18 17:20 17:20 17:26 WBC 19.5 H D RBC 4.03 Hgb 11.5 L D Hct 35.4 MCV 87.8 MCH 28.5 MCHC 32.4 L RDW 17.2 H Plt Count 401 H D MPV 8.0 Neut % (Auto) 79.1 H Lymph % (Auto) 9.4 L [place] % (Auto) 9.0 Eos % (Auto) 2.2 Baso % (Auto) 0.3 Neut # (Auto) 15.4 H Lymph # (Auto) 1.8 [place] # (Auto) 1.8 H Eos # (Auto) 0.4 Baso # (Auto) 0.1 Neutrophils % (Manual) 77 H Band Neutrophils % 2 Lymphocytes % (Manual) 10 L Monocytes % (Manual) 9 Eosinophils % (Manual) 2 Dohle Bodies Present Platelet Estimate Normal Polychromasia Slight Poikilocytosis (manual Slight Anisocytosis (manual) Slight pO2 30 ABG Carboxyhemoglobin POC ABG HHb (Measured) ABG Methemoglobin VBG pH 7.34 VBG pCO2 53 VBG HCO3 25.1 VBG Total CO2 30.2 H VBG O2 Sat (Calc) 36.8 L VBG Base Excess 1.8 VBG Hgb O2 Saturation VBG Potassium 4.0 Hemoglobin Glucose 106 H Lactate 3.1 H FiO2 21.0 Crit Value Called To Crit Value Called By Crit Value Read Back Blood Gas Notified Time Sodium 140 139.0 Potassium 3.8 Chloride 101 103.0 Carbon Dioxide 25 Anion Gap 18 BUN 24 H Creatinine 0.6 L Est GFR ( Amer) > 60 Est GFR (Non-Af Amer) > 60 Random Glucose 103 Calcium 11.0 H Total Bilirubin 0.3 AST 21 ALT 26 Alkaline Phosphatase 119 Total Protein 8.4 H Albumin 3.8 Globulin 4.5 H Albumin/Globulin Ratio 0.8 L Venous Blood Potassium 4.0 Urine Color Urine Clarity Urine pH Ur Specific [place] Urine Protein Urine Glucose (UA) Urine Ketones Urine Blood Urine Nitrate Urine Bilirubin Urine Urobilinogen Ur Leukocyte Esterase Urine RBC (Auto) Urine WBC Clumps (Auto) Urine Microscopic WBC Ur Squamous Epith Cells Urine Bacteria Hyaline Casts 01/03/18 01/03/18 01/03/18 17:57 21:15 21:28 WBC RBC Hgb Hct MCV MCH MCHC RDW Plt Count MPV Neut % (Auto) Lymph % (Auto) [place] % (Auto) Eos % (Auto) Baso % (Auto) Neut # (Auto) Lymph # (Auto) [place] # (Auto) Eos # (Auto) Baso # (Auto) Neutrophils % (Manual) Band Neutrophils % Lymphocytes % (Manual) Monocytes % (Manual) Eosinophils % (Manual) Dohle Bodies Platelet Estimate Polychromasia Poikilocytosis (manual Anisocytosis (manual) pO2 31 36 ABG Carboxyhemoglobin 3.6 H POC ABG HHb (Measured) 59.1 H ABG Methemoglobin 5.6 H VBG pH 7.29 L 7.28 L VBG pCO2 31 L 30 L VBG HCO3 15.6 15.1 VBG Total CO2 15.0 L VBG O2 Sat (Calc) 34.9 L 57.1 VBG Base Excess -10.7 L -11.3 L VBG Hgb O2 Saturation 31.7 L VBG Potassium 1.7 L* Hemoglobin 7.5 L Glucose 57 L Lactate 1.2 FiO2 21.0 Crit Value Called To Dr shirin donovan Crit Value Called By 6058 Crit Value Read Back Y Blood Gas Notified Time 2130 Sodium 143.0 Potassium Chloride 120.0 H Carbon Dioxide Anion Gap BUN Creatinine Est GFR ( Amer) Est GFR (Non-Af Amer) Random Glucose Calcium Total Bilirubin AST ALT Alkaline Phosphatase Total Protein Albumin Globulin Albumin/Globulin Ratio Venous Blood Potassium 1.7 L* Urine Color Yellow Urine Clarity Turbid Urine pH 7.0 Ur Specific [place] 1.017 Urine Protein 100 Urine Glucose (UA) Neg Urine Ketones Negative Urine Blood Small Urine Nitrate Negative Urine Bilirubin Negative Urine Urobilinogen 0.2-1.0 Ur Leukocyte Esterase Large Urine RBC (Auto) 56 H Urine WBC Clumps (Auto) Mod H Urine Microscopic WBC 319 H Ur Squamous Epith Cells 1 Urine Bacteria Few H Hyaline Casts 0-2 Microbiology 05/14/17 14:53 Urine,Castillo Urine Culture - Final No Growth (<1,000 CFU/ML) 05/10/17 17:14 Urine,[place] Urine Culture - Final No Growth (<1,000 CFU/ML) 05/09/17 08:48 Trachasp Gram Stain - Final 05/09/17 08:48 Trachasp Sputum Culture - Final Pseudomonas Aeruginosa 05/08/17 20:00 Urine,[place] Urine Culture - Final Pseudomonas Aeruginosa Yeast Species 05/03/17 08:14 Urine,[place] Urine Culture - Final Pseudomonas Aeruginosa Accession No. : [id number] Patient Name / ID : TATY TAPIA / [id number] Exam Date : 01/03/2018 17:59:26 ( Approved ) Study Comment : Sex / Age : F / 52Y Creator : Zain Babb MD Dictator : Zain Babb MD Procurement Forester : Drum Drier Operator : Zain Babb MD Approver2 : Report Date : 01/03/2018 18:22:30 My Comment : Date of service: 01/03/2018 HISTORY: Sepsis Patient COMPARISON: 05/09/2017 FINDINGS: LUNGS: No active pulmonary disease. PLEURA: No significant pleural effusion identified, no pneumothorax apparent. CARDIOVASCULAR: No radiographic findings to suggest acute or significant cardiovascular disease. OSSEOUS STRUCTURES: No significant abnormalities. VISUALIZED UPPER ABDOMEN: Normal. OTHER FINDINGS: Stable, satisfactory position of tracheostomy device. Removal of support apparatus since the prior study: PICC line and nasogastric tube. IMPRESSION: No active disease. No significant interval change compared to the prior examination(s). Assessment & Plan (1) Leukocytosis Status: Acute (2) UTI (urinary tract infection) Status: Acute (3) CVA (cerebral vascular accident) Status: Acute (4) S/P percutaneous endoscopic gastrostomy (PEG) tube placement Status: Acute (5) Status post tracheostomy Status: Acute - Assessment and Plan (Free Text) Assessment: A/P- 52 year old female with extensive medical history including cervical CA s/p hysterectomy and chemo, sepsis and bacteremia nad MDR UTI in 03/2017, CVA s/p intubation , later trached, s/p peg and has indwelling castillo cath admitted with cloudy urine and low garde temp. afebrile today. leukocytosis trending down on current abx that were initiated by primary team. + UA cxr- negative as per report. PLan- await urine cx. check blood cx x 2. in light of previous history of multiple UTI and bactermia advise to change cefepime to meropnem for broader coverage pending cx results. Pt. has tolerated avycaz, ceftazidime and cefepime without any complications or any allergic reaction. advise to monitor still for nay rash or sob while on meropenem. can continue with vanco pending cx results. Keep trough <15. f/u result of abd ct . All above d/w patient and her and they verbalize full understanding of all above and agree with above plan of care. Thank you for allowing me to take part in the care of this patient.
[2018-01-04] MEDS: levETIRAcetam 100 mg/ml (5ml) Oral Syringe PEG SCH ×3 (09:33→21:35)
[2018-01-04] MEDS: Magnesium Oxide 400 mg Tab UD PEG SCH ×2 (09:33→16:58)
[2018-01-04] MEDS: Pantoprazole 40 mg Susp UD PEG SCH (09:34)
--- NOTE | 2018-01-04 11:49 | CP.PCM.HP ---
<Aarti New - Last Filed: 01/04/18 12:59> History of Present Illness - History of Present Illness History of Present Illness: 52 year old female admitted due to suspected urosepsis. Pt has extensive medical hx including cervical ca, CVA, respiratory failure, aspiration pneumonia ; has trach collar and PEG tube, indwelling castillo catheter. Pt's noted that urine in castillo was cloudy and she had low grade fevers (99-100F) for the past few days, and called visiting nurse, who suggested they come to the hospital for eval. Pt denies any acute pain or discomfort; she can indicate yes or no with head nodding/shaking. She denies chest pain, cough, shortness of breath, vomiting, diarrhea, abdominal pain. This morning pt refused blood draws; but when seen at bedside agreed to having blood draws later in the day. PMD: Kd Saucedo Present on Admission - Present on Admission Any Indicators Present on Admission: Yes Decubitus Ulcer Present: Yes (sacrum, perineum, moderate moisture associated skin breakdown) Review of Systems - Constitutional Constitutional: Fever - Cardiovascular Cardiovascular: absent: Chest Pain, Dyspnea - Respiratory Respiratory: absent: Cough, Wheezing - Gastrointestinal Gastrointestinal: absent: Abdominal Pain, Change in Stool Character, Vomiting - Genitourinary Genitourinary: Other (cloudy urine) - Neurological Additional comments: L sided weakness secondary to old CVA Past Patient History - Past Medical History & Family History Past Medical History?: Yes - Past Social History Smoking Status: Never Smoked - CARDIAC Hx Cardiac Disorders: Yes Hx Hypertension: Yes - PULMONARY Hx Pneumonia: Yes Hx Pulmonary Embolism: Yes - NEUROLOGICAL HX Cerebrovascular Accident: Yes Hx Paralysis: Yes - HEENT Hx HEENT Problems: No - RENAL Hx Chronic Kidney Disease: Yes Other/Comment: hydronephrosis, R ureteral stent and removal (01/27/17). 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) - ENDOCRINE/METABOLIC Hx Endocrine Disorders: No - HEMATOLOGICAL/ONCOLOGICAL Hx Blood Disorders: Yes Hx AIDS: No Hx Blood Transfusions: Yes Hx Blood Transfusion Reaction: No Hx Chemotherapy: Yes Hx Human Immunodeficiency Virus (HIV): No - INTEGUMENTARY Hx Dermatological Problems: Yes Other/Comment: Sacral excoriations - MUSCULOSKELETAL/RHEUMATOLOGICAL Hx Musculoskeletal Disorders: No Hx Falls: No - GASTROINTESTINAL Hx Gastritis: Yes - GENITOURINARY/GYNECOLOGICAL Hx Genitourinary Disorders: Yes Hx Cervical Cancer: Yes Hx Ovarian Cancer: Yes Hx Urinary Tract Infection: Yes - PSYCHIATRIC Hx Psychophysiologic Disorder: No Hx Substance Use: No - SURGICAL HISTORY Hx Appendectomy: Yes Hx Cholecystectomy: Yes Hx Orthopedic Surgery: Yes (Right TKR) - ANESTHESIA Hx Anesthesia: Yes Hx Anesthesia Reactions: No Meds Allergies/Adverse Reactions: Allergies Allergy/AdvReac Type Severity Reaction Status Date / Time cimetidine [From Tagamet] Allergy RASH Verified 04/04/17 05:33 nickel Allergy RASH Verified 04/04/17 05:34 Penicillins Allergy RASH Verified 04/04/17 05:33 Physical Exam - Constitutional Appears: No Acute Distress, Chronically Ill - Head Exam Head Exam: NORMAL INSPECTION - Eye Exam Eye Exam: Normal appearance - ENT Exam ENT Exam: Mucous Membranes Moist - Neck Exam Additional comments: tracheostomy - Respiratory Exam Respiratory Exam: NORMAL BREATHING PATTERN. absent: Respiratory Distress Additional comments: normal breath sounds - Cardiovascular Exam Cardiovascular Exam: REGULAR RHYTHM, +S1, +S2 - GI/Abdominal Exam GI & Abdominal Exam: Normal Bowel Sounds, Soft Additional comments: peg tube - Neurological Exam Neurological exam: Alert Additional comments: weakness to left upper extremity, chronic, from old CVA. - Psychiatric Exam Psychiatric exam: Anxious Results - Vital Signs Recent Vital Signs: Last Vital Signs Temp 98.1 F 01/04/18 08:00 Pulse 98 H 01/04/18 09:33 Resp 20 01/04/18 08:00 BP 110/78 01/04/18 09:33 Pulse Ox 96 01/04/18 08:00 - Labs Result Diagrams: 01/04/18 11:56 01/04/18 11:56 Labs: Laboratory Results - last 24 hr 01/03/18 01/03/18 01/03/18 17:20 17:20 17:26 WBC 19.5 H D RBC 4.03 Hgb 11.5 L D Hct 35.4 MCV 87.8 MCH 28.5 MCHC 32.4 L RDW 17.2 H Plt Count 401 H D MPV 8.0 Neut % (Auto) 79.1 H Lymph % (Auto) 9.4 L [place] % (Auto) 9.0 Eos % (Auto) 2.2 Baso % (Auto) 0.3 Neut # (Auto) 15.4 H Lymph # (Auto) 1.8 [place] # (Auto) 1.8 H Eos # (Auto) 0.4 Baso # (Auto) 0.1 Neutrophils % (Manual) 77 H Band Neutrophils % 2 Lymphocytes % (Manual) 10 L Monocytes % (Manual) 9 Eosinophils % (Manual) 2 Dohle Bodies Present Platelet Estimate Normal Polychromasia Slight Poikilocytosis (manual Slight Anisocytosis (manual) Slight pO2 30 ABG Carboxyhemoglobin POC ABG HHb (Measured) ABG Methemoglobin VBG pH 7.34 VBG pCO2 53 VBG HCO3 25.1 VBG Total CO2 30.2 H VBG O2 Sat (Calc) 36.8 L VBG Base Excess 1.8 VBG Hgb O2 Saturation VBG Potassium 4.0 Hemoglobin Glucose 106 H Lactate 3.1 H FiO2 21.0 Crit Value Called To Crit Value Called By Crit Value Read Back Blood Gas Notified Time Sodium 140 139.0 Potassium 3.8 Chloride 101 103.0 Carbon Dioxide 25 Anion Gap 18 BUN 24 H Creatinine 0.6 L Est GFR ( Amer) > 60 Est GFR (Non-Af Amer) > 60 Random Glucose 103 Calcium 11.0 H Total Bilirubin 0.3 AST 21 ALT 26 Alkaline Phosphatase 119 Total Protein 8.4 H Albumin 3.8 Globulin 4.5 H Albumin/Globulin Ratio 0.8 L Venous Blood Potassium 4.0 Urine Color Urine Clarity Urine pH Ur Specific [place] Urine Protein Urine Glucose (UA) Urine Ketones Urine Blood Urine Nitrate Urine Bilirubin Urine Urobilinogen Ur Leukocyte Esterase Urine RBC (Auto) Urine WBC Clumps (Auto) Urine Microscopic WBC Ur Squamous Epith Cells Urine Bacteria Hyaline Casts 01/03/18 01/03/18 01/03/18 17:57 21:15 21:28 WBC RBC Hgb Hct MCV MCH MCHC RDW Plt Count MPV Neut % (Auto) Lymph % (Auto) [place] % (Auto) Eos % (Auto) Baso % (Auto) Neut # (Auto) Lymph # (Auto) [place] # (Auto) Eos # (Auto) Baso # (Auto) Neutrophils % (Manual) Band Neutrophils % Lymphocytes % (Manual) Monocytes % (Manual) Eosinophils % (Manual) Dohle Bodies Platelet Estimate Polychromasia Poikilocytosis (manual Anisocytosis (manual) pO2 31 36 ABG Carboxyhemoglobin 3.6 H POC ABG HHb (Measured) 59.1 H ABG Methemoglobin 5.6 H VBG pH 7.29 L 7.28 L VBG pCO2 31 L 30 L VBG HCO3 15.6 15.1 VBG Total CO2 15.0 L VBG O2 Sat (Calc) 34.9 L 57.1 VBG Base Excess -10.7 L -11.3 L VBG Hgb O2 Saturation 31.7 L VBG Potassium 1.7 L* Hemoglobin 7.5 L Glucose 57 L Lactate 1.2 FiO2 21.0 Crit Value Called To Dr shirin donovan Crit Value Called By 6011 Crit Value Read Back Y Blood Gas Notified Time 2130 Sodium 143.0 Potassium Chloride 120.0 H Carbon Dioxide Anion Gap BUN Creatinine Est GFR ( Amer) Est GFR (Non-Af Amer) Random Glucose Calcium Total Bilirubin AST ALT Alkaline Phosphatase Total Protein Albumin Globulin Albumin/Globulin Ratio Venous Blood Potassium 1.7 L* Urine Color Yellow Urine Clarity Turbid Urine pH 7.0 Ur Specific [place] 1.017 Urine Protein 100 Urine Glucose (UA) Neg Urine Ketones Negative Urine Blood Small Urine Nitrate Negative Urine Bilirubin Negative Urine Urobilinogen 0.2-1.0 Ur Leukocyte Esterase Large Urine RBC (Auto) 56 H Urine WBC Clumps (Auto) Mod H Urine Microscopic WBC 319 H Ur Squamous Epith Cells 1 Urine Bacteria Few H Hyaline Casts 0-2 Assessment & Plan - Assessment and Plan (Free Text) Assessment: 52 yo F, hx cervical ca, CVA, respiratory failure, aspiration pneumonia in the past with multiple different hospital admissions; has trach collar and PEG tube , had indwelling castillo catheter; admitted due to suspected urosepsis. Plan: - admitted to telemetry - met sepsis criteria; suspected source urine - IV antibiotics: cefepime 1g Q8hrs and vancomycin 1g Q12 - IV hydration - on repeat labs this afternoon, white count trending down, K wnl - ID consulted; Dr. Caputo - blood and urine cultures pending - wound care for sacral excoriations - resume home meds - on xarelto <Jeferson Martel K - Last Filed: 01/09/18 08:36> Results - Vital Signs Recent Vital Signs: Last Vital Signs Temp 97.1 F L 01/09/18 05:10 Pulse 84 01/09/18 05:10 Resp 18 01/09/18 05:10 BP 123/86 01/09/18 05:10 Pulse Ox 98 01/09/18 05:10 - Labs Result Diagrams: 01/09/18 05:35 01/09/18 05:35 Labs: Laboratory Results - last 24 hr 01/09/18 01/09/18 05:35 05:35 WBC 12.6 H RBC 3.74 L Hgb 10.8 L Hct 32.6 L MCV 87.1 MCH 29.0 MCHC 33.3 RDW 18.3 H Plt Count 373 Sodium 140 Potassium 4.8 Chloride 106 Carbon Dioxide 25 Anion Gap 14 BUN 8 Creatinine 0.7 Est GFR ( Amer) > 60 Est GFR (Non-Af Amer) > 60 Random Glucose 103 Calcium 11.7 H Total Bilirubin 0.4 AST 31 ALT 30 Alkaline Phosphatase 138 H Total Protein 7.6 Albumin 3.5 Globulin 4.1 H Albumin/Globulin Ratio 0.9 L Assessment & Plan - Assessment and Plan (Free Text) Plan: Patient was personally seen and examined by me in rounds with residents. Available labs and diagnostic data reviewed. Case, Patient's condition and management plan discussed with residents in rounds. Agree with resident's progress note. Plan: As ordered.
[2018-01-04 12:00] LABS: HEMOGLOBIN 10.4 g/dL (12.0-16.0); MEAN CELL VOLUME 88.3 fl (81.0-99.0); MEAN CORPUSCULAR HEMOGLOBIN 29.6 pg (27.0-31.0); MEAN CORPUSCULAR HGB CONC 33.5 g/dL (33.0-37.0); RBC 3.52 Mil/uL (3.80-5.20); RED CELL DISTRIBUTION WIDTH 17.4 % (11.5-14.5); WHITE BLOOD COUNT 14.8 K/uL (4.8-10.8)
[2018-01-04 12:18] LABS: ALB/GLOB RATIO 0.8 (1.0-2.1); ALBUMIN 3.5 g/dL (3.5-5.0); ALT/SGPT 15 U/L (9-52); AST/SGOT 29 U/L (14-36); BLOOD UREA NITROGEN 16 mg/dl (7-17); CALCIUM 10.3 mg/dL (8.4-10.2); GFR NON-AFRICAN AMERICAN > 60
[2018-01-04] MEDS: DESTIN OINT TOP SCH (16:53)
[2018-01-04] MEDS: Meropenem 1 GM in Sodium Chloride 0.9% 100 ML IVPB SCH (16:57)
[2018-01-04] MEDS: Proshield Plus GEL TOP SCH (16:59)
[2018-01-04] MEDS: Sodium Chloride 0.9% 1,000 ML IV SCH ×2 (17:00→23:19)
[2018-01-05] MEDS: Proshield Plus GEL TOP SCH ×3 (01:08→16:49)
[2018-01-05] MEDS: Meropenem 1 GM in Sodium Chloride 0.9% 100 ML IVPB SCH ×5 (01:10→16:01)
[2018-01-05] MEDS: Sodium Chloride 0.9% 1,000 ML IV SCH (06:16)
[2018-01-05] MEDS: Pantoprazole 40 mg Susp UD PEG SCH (09:05)
[2018-01-05] MEDS: levETIRAcetam 100 mg/ml (5ml) Oral Syringe PEG SCH ×2 (09:05→21:26)
[2018-01-05] MEDS: Magnesium Oxide 400 mg Tab UD PEG SCH ×2 (09:05→16:50)
[2018-01-05] MEDS: DESTIN OINT TOP SCH (09:11)
--- NOTE | 2018-01-05 11:43 | CP.PCM.PN ---
Subjective - Date & Time of Evaluation Date of Evaluation: 01/05/18 Time of Evaluation: 11:43 - Subjective Subjective: ID Note- Pt. seen hank cardona today with her at her bedisde. denies any fever. Apparently pt. does not have IVL now and refuses to have IVL palced. She did receive one dose of meropenem last night and no complications. Objective - Vital Signs/Intake and Output Vital Signs (last 24 hours): Temp Pulse Resp BP Pulse Ox 97.1 F L 80 20 112/76 99 01/05/18 08:00 01/05/18 09:06 01/05/18 08:00 01/05/18 09:06 01/05/18 08:00 Intake and Output: 01/05/18 01/05/18 06:59 18:59 Intake Total 320 Output Total 500 Balance -180 - Medications Medications: Current Medications Acetaminophen (Tylenol 325mg Tab) 650 mg PEG Q6 PRN PRN Reason: Pain, Mild (1-3) Last Admin: 01/04/18 23:20 Dose: 650 mg Al Hydrox/Mg Hydrox/Simethicone (Maalox Plus 30 Ml) 30 ml PEG Q8 PRN PRN Reason: Indigestion / Heartburn Clotrimazole (Lotrimin 1% Cream) 1 applic TOP BID [facility] Last Admin: 01/05/18 09:06 Dose: 1 applic Dimethicone (Proshield Plus Skin Protectant) 1 applic TOP Q8 [facility] Last Admin: 01/05/18 09:07 Dose: 1 applic Docusate Sodium (Colace Liquid) 100 mg PEG DAILY [facility] Last Admin: 01/05/18 09:05 Dose: 100 mg Gabapentin (Neurontin) 100 mg PEG Q8 [facility] Last Admin: 01/05/18 09:05 Dose: 100 mg Vancomycin HCl 1 gm/ Sodium (Chloride) 250 mls @ 166.667 mls/hr IVPB Q12 [facility] PRN Reason: Protocol Last Admin: 01/05/18 09:10 Dose: 166.667 mls/hr Sodium Chloride (Sodium Chloride 0.9%) 1,000 mls @ 120 mls/hr IV .Q8H20M [facility] Stop: 01/05/18 13:17 Last Admin: 01/05/18 06:16 Dose: Not Given Meropenem 1 gm/ Sodium (Chloride) 100 mls @ 100 mls/hr IVPB Q8 [facility] PRN Reason: Protocol Last Admin: 01/05/18 01:10 Dose: Not Given Levetiracetam (Keppra) 500 mg PEG Q12 [facility] Last Admin: 01/05/18 09:05 Dose: 500 mg Magnesium Oxide (Mag-Ox) 400 mg PEG BID [facility] Last Admin: 01/05/18 09:05 Dose: 400 mg Metoprolol Tartrate (Lopressor) 25 mg PEG Q12 [facility] Last Admin: 01/05/18 09:06 Dose: 25 mg Morphine Sulfate (Morphine) 1 mg IVP Q6 PRN PRN Reason: Pain, moderate (4-7) Nystatin (Mycostatin Cream) 1 applic TOP BID [facility] Last Admin: 01/05/18 09:06 Dose: 1 applic Pantoprazole Sodium (Protonix Susp) 40 mg PEG DAILY [facility] Last Admin: 01/05/18 09:05 Dose: 40 mg Petrolatum (Desitin Maximum Strength Topical 40% Oint) 1 applic TOP DAILY [facility] Last Admin: 01/05/18 09:11 Dose: 1 applic Rivaroxaban (Xarelto) 20 mg PEG QPM [facility] PRN Reason: Protocol Last Admin: 01/04/18 17:00 Dose: 20 mg Sertraline HCl (Zoloft) 25 mg PO HS [facility] Last Admin: 01/04/18 21:27 Dose: 25 mg - Labs Labs: - Additional Findings Additional findings: - Constitutional Appears: No Acute Distress - Head Exam Head Exam: ATRAUMATIC - Eye Exam Eye Exam: EOMI - ENT Exam Additional comments: has trach in place, no erythema and no discharge from around trach site - Neck Exam Additional comments: supple - Respiratory Exam Respiratory Exam: NORMAL BREATHING PATTERN Additional comments: Good breath sounds heard B/L no wheezing - Cardiovascular Exam Cardiovascular Exam: RRR, +S1, +S2 - GI/Abdominal Exam GI & Abdominal Exam: Normal Bowel Sounds, Soft Additional comments: NT, ND peg tube site clean/dry/intact old surgical cscar seen no erythema no lesions no guarding, no rebound - Extremities Exam Additional comments: no edema b/l LE - Neurological Exam Neurological exam: Alert Additional comments: awake - Skin Additional comments: stage 1 decub but very superficial , denuded skin only, no opening Laboratory Results - last 72 hr 01/03/18 01/03/18 01/03/18 17:20 17:20 17:26 WBC 19.5 H D RBC 4.03 Hgb 11.5 L D Hct 35.4 MCV 87.8 MCH 28.5 MCHC 32.4 L RDW 17.2 H Plt Count 401 H D MPV 8.0 Neut % (Auto) 79.1 H Lymph % (Auto) 9.4 L [place] % (Auto) 9.0 Eos % (Auto) 2.2 Baso % (Auto) 0.3 Neut # (Auto) 15.4 H Lymph # (Auto) 1.8 [place] # (Auto) 1.8 H Eos # (Auto) 0.4 Baso # (Auto) 0.1 Neutrophils % (Manual) 77 H Band Neutrophils % 2 Lymphocytes % (Manual) 10 L Monocytes % (Manual) 9 Eosinophils % (Manual) 2 Dohle Bodies Present Platelet Estimate Normal Polychromasia Slight Poikilocytosis (manual Slight Anisocytosis (manual) Slight pO2 30 ABG Carboxyhemoglobin POC ABG HHb (Measured) ABG Methemoglobin VBG pH 7.34 VBG pCO2 53 VBG HCO3 25.1 VBG Total CO2 30.2 H VBG O2 Sat (Calc) 36.8 L VBG Base Excess 1.8 VBG Hgb O2 Saturation VBG Potassium 4.0 Hemoglobin Glucose 106 H Lactate 3.1 H FiO2 21.0 Crit Value Called To Crit Value Called By Crit Value Read Back Blood Gas Notified Time Sodium 140 139.0 Potassium 3.8 Chloride 101 103.0 Carbon Dioxide 25 Anion Gap 18 BUN 24 H Creatinine 0.6 L Est GFR ( Amer) > 60 Est GFR (Non-Af Amer) > 60 Random Glucose 103 Calcium 11.0 H Total Bilirubin 0.3 AST 21 ALT 26 Alkaline Phosphatase 119 Total Protein 8.4 H Albumin 3.8 Globulin 4.5 H Albumin/Globulin Ratio 0.8 L Venous Blood Potassium 4.0 Urine Color Urine Clarity Urine pH Ur Specific Cobb Urine Protein Urine Glucose (UA) Urine Ketones Urine Blood Urine Nitrate Urine Bilirubin Urine Urobilinogen Ur Leukocyte Esterase Urine RBC (Auto) Urine WBC Clumps (Auto) Urine Microscopic WBC Ur Squamous Epith Cells Urine Bacteria Hyaline Casts 01/03/18 01/03/18 01/03/18 17:57 21:15 21:28 WBC RBC Hgb Hct MCV MCH MCHC RDW Plt Count MPV Neut % (Auto) Lymph % (Auto) [place] % (Auto) Eos % (Auto) Baso % (Auto) Neut # (Auto) Lymph # (Auto) [place] # (Auto) Eos # (Auto) Baso # (Auto) Neutrophils % (Manual) Band Neutrophils % Lymphocytes % (Manual) Monocytes % (Manual) Eosinophils % (Manual) Dohle Bodies Platelet Estimate Polychromasia Poikilocytosis (manual Anisocytosis (manual) pO2 31 36 ABG Carboxyhemoglobin 3.6 H POC ABG HHb (Measured) 59.1 H ABG Methemoglobin 5.6 H VBG pH 7.29 L 7.28 L VBG pCO2 31 L 30 L VBG HCO3 15.6 15.1 VBG Total CO2 15.0 L VBG O2 Sat (Calc) 34.9 L 57.1 VBG Base Excess -10.7 L -11.3 L VBG Hgb O2 Saturation 31.7 L VBG Potassium 1.7 L* Hemoglobin 7.5 L Glucose 57 L Lactate 1.2 FiO2 21.0 Crit Value Called To Dr shirin donovan Crit Value Called By [id number] Crit Value Read Back Y Blood Gas Notified Time 2130 Sodium 143.0 Potassium Chloride 120.0 H Carbon Dioxide Anion Gap BUN Creatinine Est GFR ( Amer) Est GFR (Non-Af Amer) Random Glucose Calcium Total Bilirubin AST ALT Alkaline Phosphatase Total Protein Albumin Globulin Albumin/Globulin Ratio Venous Blood Potassium 1.7 L* Urine Color Yellow Urine Clarity Turbid Urine pH 7.0 Ur Specific Cobb 1.017 Urine Protein 100 Urine Glucose (UA) Neg Urine Ketones Negative Urine Blood Small Urine Nitrate Negative Urine Bilirubin Negative Urine Urobilinogen 0.2-1.0 Ur Leukocyte Esterase Large Urine RBC (Auto) 56 H Urine WBC Clumps (Auto) Mod H Urine Microscopic WBC 319 H Ur Squamous Epith Cells 1 Urine Bacteria Few H Hyaline Casts 0-2 01/04/18 01/04/18 01/05/18 11:56 11:56 12:16 WBC 14.8 H 12.2 H RBC 3.52 L 3.63 L Hgb 10.4 L 10.7 L Hct 31.1 L 31.4 L MCV 88.3 86.3 D MCH 29.6 29.5 MCHC 33.5 34.1 RDW 17.4 H 17.4 H Plt Count 377 344 MPV 7.8 Neut % (Auto) 77.5 H Lymph % (Auto) 9.2 L [place] % (Auto) 10.7 H Eos % (Auto) 2.2 Baso % (Auto) 0.4 Neut # (Auto) 9.5 H Lymph # (Auto) 1.1 [place] # (Auto) 1.3 H Eos # (Auto) 0.3 Baso # (Auto) 0.0 Neutrophils % (Manual) Band Neutrophils % Lymphocytes % (Manual) Monocytes % (Manual) Eosinophils % (Manual) Dohle Bodies Platelet Estimate Polychromasia Poikilocytosis (manual Anisocytosis (manual) pO2 ABG Carboxyhemoglobin POC ABG HHb (Measured) ABG Methemoglobin VBG pH VBG pCO2 VBG HCO3 VBG Total CO2 VBG O2 Sat (Calc) VBG Base Excess VBG Hgb O2 Saturation VBG Potassium Hemoglobin Glucose Lactate FiO2 Crit Value Called To Crit Value Called By Crit Value Read Back Blood Gas Notified Time Sodium 139 Potassium 4.4 Chloride 110 H Carbon Dioxide 21 L Anion Gap 12 BUN 16 Creatinine 0.5 L Est GFR ( Amer) > 60 Est GFR (Non-Af Amer) > 60 Random Glucose 92 Calcium 10.3 H Total Bilirubin 0.5 AST 29 ALT 15 Alkaline Phosphatase 107 Total Protein 7.9 Albumin 3.5 Globulin 4.4 H Albumin/Globulin Ratio 0.8 L Venous Blood Potassium Urine Color Urine Clarity Urine pH Ur Specific Cobb Urine Protein Urine Glucose (UA) Urine Ketones Urine Blood Urine Nitrate Urine Bilirubin Urine Urobilinogen Ur Leukocyte Esterase Urine RBC (Auto) Urine WBC Clumps (Auto) Urine Microscopic WBC Ur Squamous Epith Cells Urine Bacteria Hyaline Casts Microbiology 01/03/18 17:00 Blood Blood Culture - Preliminary Gram Positive Cocci 01/03/18 17:00 Blood Gram Stain - Final 01/03/18 17:57 Urine,Castillo Urine Culture - Final 10-50,000 CFU/ML. MULTIPLE SPECIES. PROBABLE CONTAMINATION. Assessment and Plan (1) Leukocytosis Status: Acute (2) UTI (urinary tract infection) Status: Acute (3) CVA (cerebral vascular accident) Status: Acute (4) S/P percutaneous endoscopic gastrostomy (PEG) tube placement Status: Acute (5) Status post tracheostomy Status: Acute - Assessment and Plan (Free Text) Assessment: A/P- 52 year old female with extensive medical history including cervical CA s/p hysterectomy and chemo, sepsis and bacteremia nad MDR UTI in 03/2017, CVA s/p intubation , later trached, s/p peg and has indwelling castillo cath admitted with cloudy urine and low garde temp. afebrile today. leukocytosis trending down + UA cxr- negative as per report. blood cx- GPC in blood cx urine cx- multiple organisms ( contaminant) PLan- send another urine cx. await ID and sens of the blood cx. check 2 more blood cx. check TTE r/o veg. continue with IV meroepenm for UTI pending repeat urine cx. advise to monitor still for nay rash or sob while on meropenem. continue with IV vanco for GPC bacteremia. keep trough <20. pt. agrees to having IVL placed. advise to avoid picc until blood cx have cleared. All above d/w patient and her and they verbalize full understanding of all above and agree with above plan of care.
[2018-01-05 12:25] LABS: BASO % 0.4 % (0.0-2.0); EOS # 0.3 K/uL (0.0-0.7); EOS % 2.2 % (0.0-4.0); HEMOGLOBIN 10.7 g/dL (12.0-16.0); LYMPH # 1.1 K/uL (1.0-4.3); LYMPH % 9.2 % (20.0-40.0); MEAN CELL VOLUME 86.3 fl (81.0-99.0); MEAN CORPUSCULAR HEMOGLOBIN 29.5 pg (27.0-31.0); MEAN CORPUSCULAR HGB CONC 34.1 g/dL (33.0-37.0); MEAN PLATELET VOLUME 7.8 fl (7.2-11.7); MONO # 1.3 K/uL (0.0-0.8); MONO % 10.7 % (0.0-10.0); NEUT # 9.5 K/uL (1.8-7.0); NEUT % 77.5 % (50.0-75.0); RBC 3.63 Mil/uL (3.80-5.20); RED CELL DISTRIBUTION WIDTH 17.4 % (11.5-14.5); WHITE BLOOD COUNT 12.2 K/uL (4.8-10.8)
--- NOTE | 2018-01-05 12:52 | PN ---
Copied To: Jeferson Martel MD Attending MD: Jeferson Martel MD DATE: 01/05/2018 SUBJECTIVE: The patient seen and examined. Interim events noted. Consults noted and appreciated. Infectious Disease followup and intervention noted and appreciated. The patient remains in progressive care unit on telemetry monitoring. The patient is sleeping, arousable, feels okay. Feels better than yesterday. No new complaint of chest pain. No shortness of breath. PHYSICAL EXAMINATION: GENERAL: The patient is in no acute distress. VITAL SIGNS: Stable nontender. PEG tube is in good position and functioning. EXTREMITIES: No calf swelling. No tenderness. tube is in good position and functioning. DIAGNOSTIC DATA: Available diagnostic data reviewed. Telemetry monitoring does not reveal significant arrhythmias. ASSESSMENT AND PLAN: Overall, the patient's general medical condition is stable. Plan as ordered. Jeferson Martel MD
--- NOTE | 2018-01-05 13:50 | CT ---
Date of service: 01/03/2018 PROCEDURE: CT Abdomen and Pelvis with contrast HISTORY: UTI, hx cervical CA, hysterectomy, IA abscess, PEG COMPARISON: 04/11/2017 TECHNIQUE: Contrast dose: 90 mL Omnipaque 300 Radiation dose: Total exam DLP = 579 mGy-cm. This CT exam was performed using one or more of the following dose reduction techniques: Automated exposure control, adjustment of the mA and/or kV according to patient size, and/or use of iterative reconstruction technique. FINDINGS: LOWER THORAX: Uneven lung attenuation mosaicism with some discoid atelectasis scarring at the right lung base. The low-density coalescent areas of ground-glass opacity in each lung base compatible with both patchy hypoventilatory affects is well as minimal areas coalescent interstitial pulmonary edema. No dense consolidation suggested. LIVER: Diffuse fatty liver changes. . No gross lesion or ductal dilatation. GALLBLADDER AND BILE DUCTS: Unremarkable. PANCREAS: Unremarkable. No gross lesion or ductal dilatation. SPLEEN: Series 3, image 22, a lateral 5 mm hypodensity is present possibly present previously yet more conspicuous on current exam (possibly less conspicuous on prior series 3, image 39 from 2017) ADRENALS: Unremarkable. No mass. KIDNEYS AND URETERS: Left extra renal pelviectasis. No peripheral intrarenal caliectasis. This mild prominence is slightly more conspicuous on the current study. Marked right hydronephrosis this has progressed since the prior exam. The proximal right ureter is also dilated- no obstructing stone seen. The right ureter caliber change it is in close proximity with retroperitoneal postsurgical changes. These postsurgical changes are noted on the prior study as well. There is less patchy enhancement the right renal parenchyma than was present previously. Right ureteral stricture is 1 consideration. The hyperdensity in the posterior right kidney may represent a nonobstructing stone here. This is not seen as such on the prior study. VASCULATURE: An IVC filter is in place as before. . No aortic aneurysm. BOWEL: A PEG tube appears present in the gastric antrum region. No high-grade obstruction appreciated. The small bowel loops appear decompressed. No colonic distension. No skull no more proximal small bowel distention seen. Some the small-bowel loops appear adherent to the anterior abdominal wall some adhesions are present. Mild low level enteritis is not excluded. The rectosigmoid colon is also decompressed and unremarkable the rectum appears slightly patulous. . APPENDIX: Normal appendix. PERITONEUM: Unremarkable. No free fluid. No free air. LYMPH NODES: Unremarkable. No enlarged lymph nodes. BLADDER: Clinical correlation stated in terms of its being iatrogenically introduced. This is not present on the prior study. Overton catheter is inserted 5th distal large amount of air in the REPRODUCTIVE: Unremarkable. BONES: No acute fracture. The mild subluxation attributed to degenerative ligamentous laxity at L4-5 level is unchanged. OTHER FINDINGS: The prior extensive soft tissue anasarca status is much less now than before. . IMPRESSION: Interval right hydronephrosis -no intrinsic ureteral obstructing stone identified. The level transition of right hydroureter borders surgical clips - the surgical clips are unchanged in their appearance. The prior mottled enhancement right kidney is less now than before. Minimal mild a left mainly extra renal pelviectasis. No significant appearing peripheral caliectasis noted. No high-grade bowel obstruction. Small bowel adhesions without gross obstruction compatible with this appearance. Degrees of enteritis also possible. Clinical correlation needed. Lung base findings nonspecific probably relating to areas of uneven attenuation and possible minimal interstitial pulmonary edema. No dense consolidation seen. Small benign-appearing splenic lesion possibly present on the prior study. Since interval change with the prior the rad study mentioning a low-density lesion in the left hepatic lobe Other findings as above. Some discordance between this exam and the V rad report noted.
[2018-01-06] MEDS: Meropenem 1 GM in Sodium Chloride 0.9% 100 ML IVPB SCH ×3 (01:04→16:09)
[2018-01-06] MEDS: Proshield Plus GEL TOP SCH ×3 (02:14→16:10)
--- NOTE | 2018-01-06 09:01 | CP.PCM.PN ---
<Aarti New - Last Filed: 01/06/18 12:44> Subjective - Date & Time of Evaluation Date of Evaluation: 01/06/18 Time of Evaluation: 07:30 - Subjective Subjective: Pt seen at bedside with Dr. Martel this am. This morning, sitting comfortably in bed in no acute distress, did not have any acute events overnight. She is pending echo today, and was started on merrem as per ID. Explained to pt that we will need more urine and blood cultures, she nodded in agreement. Objective - Vital Signs/Intake and Output Vital Signs (last 24 hours): Temp Pulse Resp BP Pulse Ox 98.2 F 107 H 20 108/78 95 01/06/18 08:00 01/06/18 08:00 01/06/18 08:00 01/06/18 08:00 01/06/18 08:00 Intake and Output: 01/06/18 01/06/18 06:59 18:59 Intake Total 266 Output Total 950 Balance -684 - Medications Medications: Current Medications Acetaminophen (Tylenol 325mg Tab) 650 mg PEG Q6 PRN PRN Reason: Pain, Mild (1-3) Last Admin: 01/05/18 14:21 Dose: 650 mg Al Hydrox/Mg Hydrox/Simethicone (Maalox Plus 30 Ml) 30 ml PEG Q8 PRN PRN Reason: Indigestion / Heartburn Clotrimazole (Lotrimin 1% Cream) 1 applic TOP BID [facility] Last Admin: 01/05/18 16:49 Dose: 1 applic Dimethicone (Proshield Plus Skin Protectant) 1 applic TOP Q8 [facility] Last Admin: 01/06/18 02:14 Dose: 1 applic Docusate Sodium (Colace Liquid) 100 mg PEG DAILY [facility] Last Admin: 01/05/18 09:05 Dose: 100 mg Gabapentin (Neurontin) 100 mg PEG Q8 [facility] Last Admin: 01/06/18 02:18 Dose: 100 mg Vancomycin HCl 1 gm/ Sodium (Chloride) 250 mls @ 166.667 mls/hr IVPB Q12 [facility] PRN Reason: Protocol Last Admin: 01/05/18 21:29 Dose: 166.667 mls/hr Meropenem 1 gm/ Sodium (Chloride) 100 mls @ 100 mls/hr IVPB Q8 [facility] PRN Reason: Protocol Last Admin: 01/06/18 01:04 Dose: 100 mls/hr Levetiracetam (Keppra) 500 mg PEG Q12 [facility] Last Admin: 01/05/18 21:26 Dose: 500 mg Magnesium Oxide (Mag-Ox) 400 mg PEG BID [facility] Last Admin: 01/05/18 16:50 Dose: 400 mg Metoprolol Tartrate (Lopressor) 25 mg PEG Q12 [facility] Last Admin: 01/05/18 21:28 Dose: 25 mg Morphine Sulfate (Morphine) 1 mg IVP Q6 PRN PRN Reason: Pain, moderate (4-7) Nystatin (Mycostatin Cream) 1 applic TOP BID [facility] Last Admin: 01/05/18 16:48 Dose: 1 applic Pantoprazole Sodium (Protonix Susp) 40 mg PEG DAILY [facility] Last Admin: 01/05/18 09:05 Dose: 40 mg Petrolatum (Desitin Maximum Strength Topical 40% Oint) 1 applic TOP DAILY [facility] Last Admin: 01/05/18 09:11 Dose: 1 applic Rivaroxaban (Xarelto) 20 mg PEG QPM [facility] PRN Reason: Protocol Last Admin: 01/05/18 17:03 Dose: 20 mg Sertraline HCl (Zoloft) 25 mg PO HS [facility] Last Admin: 01/05/18 21:29 Dose: 25 mg - Labs Labs: 01/05/18 12:16 01/04/18 11:56 - Constitutional Appears: No Acute Distress, Chronically Ill - Eye Exam Eye Exam: Normal appearance - Neck Exam Additional comments: trach in place; no surrounding erythema - Respiratory Exam Respiratory Exam: Clear to Ausculation Bilateral, NORMAL BREATHING PATTERN - Cardiovascular Exam Cardiovascular Exam: REGULAR RHYTHM, +S1, +S2 - GI/Abdominal Exam GI & Abdominal Exam: Soft Additional comments: PEG tube in place - Extremities Exam Extremities Exam: absent: Calf Tenderness - Neurological Exam Neurological Exam: Alert, Awake Assessment and Plan - Assessment and Plan (Free Text) Assessment: 52 yo F, hx cervical ca, CVA, respiratory failure, aspiration pneumonia in the past with multiple different hospital admissions; has trach collar and PEG tube , admitted due to sepsis due to castillo catherer related UTI; blood culture has grown gram positive cocci in pairs. Plan: - ID consulted; recs appreciated - IV antibiotics: meropenem 1g Q8 and vancomycin 1g Q12 - echo pending - repeat blood and urine cultures pending - wound care for sacral excoriations - resume home meds - on xarelto <Jeferson Martel K - Last Filed: 01/09/18 08:37> Objective - Vital Signs/Intake and Output Vital Signs (last 24 hours): Temp Pulse Resp BP Pulse Ox 97.1 F L 84 18 123/86 98 01/09/18 05:10 01/09/18 05:10 01/09/18 05:10 01/09/18 05:10 01/09/18 05:10 Intake and Output: 01/09/18 01/09/18 06:59 18:59 Intake Total 340 Output Total 403 Balance -63 - Medications Medications: Current Medications Acetaminophen (Tylenol 325mg Tab) 650 mg PEG Q6 PRN PRN Reason: Pain, Mild (1-3) Last Admin: 01/08/18 16:23 Dose: 650 mg Al Hydrox/Mg Hydrox/Simethicone (Maalox Plus 30 Ml) 30 ml PEG Q8 PRN PRN Reason: Indigestion / Heartburn Last Admin: 01/07/18 18:08 Dose: 30 ml Albuterol/Ipratropium (Duoneb 3 Mg/0.5 Mg (3 Ml) Ud) 3 ml INH RTID [facility] Last Admin: 01/09/18 07:31 Dose: Not Given Ciprofloxacin (Cipro) 500 mg PO Q12 [facility] PRN Reason: Protocol Last Admin: 01/08/18 21:37 Dose: 500 mg Clotrimazole (Lotrimin 1% Cream) 1 applic TOP BID [facility] Last Admin: 01/08/18 16:24 Dose: 1 applic Dimethicone (Proshield Plus Skin Protectant) 1 applic TOP Q8 [facility] Last Admin: 01/09/18 01:31 Dose: 1 applic Docusate Sodium (Colace Liquid) 100 mg PEG DAILY [facility] Last Admin: 01/08/18 11:20 Dose: Not Given Gabapentin (Neurontin) 100 mg PEG Q8 [facility] Last Admin: 01/09/18 01:31 Dose: 100 mg Levetiracetam (Keppra) 500 mg PEG Q12 [facility] Last Admin: 01/08/18 21:36 Dose: 500 mg Magnesium Oxide (Mag-Ox) 800 mg PEG BID [facility] Last Admin: 01/08/18 16:25 Dose: 800 mg Metoprolol Tartrate (Lopressor) 25 mg PEG Q12 [facility] Last Admin: 01/08/18 21:37 Dose: 25 mg Morphine Sulfate (Morphine) 1 mg IVP Q6 PRN PRN Reason: Pain, moderate (4-7) Last Admin: 01/06/18 21:02 Dose: 1 mg Nystatin (Mycostatin Cream) 1 applic TOP BID [facility] Last Admin: 01/08/18 16:26 Dose: 1 applic Pantoprazole Sodium (Protonix Susp) 40 mg PEG DAILY [facility] Last Admin: 01/08/18 11:23 Dose: 40 mg Petrolatum (Desitin Maximum Strength Topical 40% Oint) 1 applic TOP DAILY [facility] Last Admin: 01/08/18 11:21 Dose: 1 applic Rivaroxaban (Xarelto) 20 mg PEG QPM [facility] PRN Reason: Protocol Last Admin: 01/08/18 18:46 Dose: 20 mg Sertraline HCl (Zoloft) 25 mg PO HS [facility] Last Admin: 01/08/18 21:37 Dose: 25 mg - Labs Labs: 01/09/18 05:35 01/09/18 05:35 Assessment and Plan - Assessment and Plan (Free Text) Plan: Patient was personally seen and examined by me in rounds with residents. Available labs and diagnostic data reviewed. Case, Patient's condition and management plan discussed with residents in rounds. Agree with resident's progress note. Plan: As ordered.
[2018-01-06] MEDS: levETIRAcetam 100 mg/ml (5ml) Oral Syringe PEG SCH ×2 (09:07→21:10)
[2018-01-06] MEDS: DESTIN OINT TOP SCH (09:08)
[2018-01-06] MEDS: Magnesium Oxide 400 mg Tab UD PEG SCH ×2 (09:09→17:14)
[2018-01-06] MEDS: Pantoprazole 40 mg Susp UD PEG SCH (09:10)
[2018-01-06] MEDS: Albuterol-Ipratrop 3 mg / 0.5 (3 ml) UD INH SCH ×3 (11:37→19:23)
--- NOTE | 2018-01-06 11:37 | CP.PCM.PN ---
Subjective - Date & Time of Evaluation Date of Evaluation: 01/06/18 Time of Evaluation: 11:37 - Subjective Subjective: ID note- pt. seen and examined today. feels better today. denies any fever or chills. denies any pain. Objective - Vital Signs/Intake and Output Vital Signs (last 24 hours): Temp Pulse Resp BP Pulse Ox 98.2 F 107 H 20 108/78 95 01/06/18 08:00 01/06/18 09:08 01/06/18 08:00 01/06/18 08:00 01/06/18 08:00 Intake and Output: 01/06/18 01/06/18 06:59 18:59 Intake Total 266 Output Total 950 Balance -684 - Medications Medications: Current Medications Acetaminophen (Tylenol 325mg Tab) 650 mg PEG Q6 PRN PRN Reason: Pain, Mild (1-3) Last Admin: 01/05/18 14:21 Dose: 650 mg Al Hydrox/Mg Hydrox/Simethicone (Maalox Plus 30 Ml) 30 ml PEG Q8 PRN PRN Reason: Indigestion / Heartburn Albuterol/Ipratropium (Duoneb 3 Mg/0.5 Mg (3 Ml) Ud) 3 ml INH RTID [facility] Clotrimazole (Lotrimin 1% Cream) 1 applic TOP BID [facility] Last Admin: 01/06/18 09:09 Dose: 1 applic Dimethicone (Proshield Plus Skin Protectant) 1 applic TOP Q8 [facility] Last Admin: 01/06/18 09:09 Dose: 1 applic Docusate Sodium (Colace Liquid) 100 mg PEG DAILY [facility] Last Admin: 01/06/18 09:08 Dose: 100 mg Gabapentin (Neurontin) 100 mg PEG Q8 [facility] Last Admin: 01/06/18 09:07 Dose: 100 mg Vancomycin HCl 1 gm/ Sodium (Chloride) 250 mls @ 166.667 mls/hr IVPB Q12 [facility] PRN Reason: Protocol Last Admin: 01/06/18 09:02 Dose: 166.667 mls/hr Meropenem 1 gm/ Sodium (Chloride) 100 mls @ 100 mls/hr IVPB Q8 [facility] PRN Reason: Protocol Last Admin: 01/06/18 09:02 Dose: 100 mls/hr Levetiracetam (Keppra) 500 mg PEG Q12 [facility] Last Admin: 01/06/18 09:07 Dose: 500 mg Magnesium Oxide (Mag-Ox) 400 mg PEG BID [facility] Last Admin: 01/06/18 09:09 Dose: 400 mg Metoprolol Tartrate (Lopressor) 25 mg PEG Q12 [facility] Last Admin: 01/06/18 09:08 Dose: 25 mg Morphine Sulfate (Morphine) 1 mg IVP Q6 PRN PRN Reason: Pain, moderate (4-7) Last Admin: 01/06/18 09:20 Dose: 1 mg Nystatin (Mycostatin Cream) 1 applic TOP BID [facility] Last Admin: 01/06/18 09:09 Dose: 1 applic Pantoprazole Sodium (Protonix Susp) 40 mg PEG DAILY [facility] Last Admin: 01/06/18 09:10 Dose: 40 mg Petrolatum (Desitin Maximum Strength Topical 40% Oint) 1 applic TOP DAILY [facility] Last Admin: 01/06/18 09:08 Dose: 1 applic Rivaroxaban (Xarelto) 20 mg PEG QPM [facility] PRN Reason: Protocol Last Admin: 01/05/18 17:03 Dose: 20 mg Sertraline HCl (Zoloft) 25 mg PO HS [facility] Last Admin: 01/05/18 21:29 Dose: 25 mg - Labs Labs: - Additional Findings Additional findings: - Constitutional Appears: No Acute Distress - Head Exam Head Exam: ATRAUMATIC - Eye Exam Eye Exam: EOMI - ENT Exam Additional comments: has trach in place, no erythema and no discharge from around trach site - Neck Exam Additional comments: supple - Respiratory Exam Respiratory Exam: NORMAL BREATHING PATTERN Additional comments: Good breath sounds heard B/L no wheezing - Cardiovascular Exam Cardiovascular Exam: RRR, +S1, +S2 - GI/Abdominal Exam GI & Abdominal Exam: Normal Bowel Sounds, Soft Additional comments: NT, ND peg tube site clean/dry/intact no erythema no lesions no guarding, no rebound - Extremities Exam Additional comments: no edema b/l LE - Neurological Exam Neurological exam: Alert Additional comments: awake Laboratory Results - last 72 hr 01/03/18 01/03/18 01/03/18 17:20 21:15 21:28 WBC RBC Hgb Hct MCV MCH MCHC RDW Plt Count MPV Neut % (Auto) Lymph % (Auto) [place] % (Auto) Eos % (Auto) Baso % (Auto) Neut # (Auto) Lymph # (Auto) [place] # (Auto) Eos # (Auto) Baso # (Auto) Neutrophils % (Manual) 77 H Band Neutrophils % 2 Lymphocytes % (Manual) 10 L Monocytes % (Manual) 9 Eosinophils % (Manual) 2 Dohle Bodies Present Platelet Estimate Normal Polychromasia Slight Poikilocytosis (manual Slight Anisocytosis (manual) Slight pO2 31 36 ABG Carboxyhemoglobin 3.6 H POC ABG HHb (Measured) 59.1 H ABG Methemoglobin 5.6 H VBG pH 7.29 L 7.28 L VBG pCO2 31 L 30 L VBG HCO3 15.6 15.1 VBG Total CO2 15.0 L VBG O2 Sat (Calc) 34.9 L 57.1 VBG Base Excess -10.7 L -11.3 L VBG Hgb O2 Saturation 31.7 L VBG Potassium 1.7 L* Hemoglobin 7.5 L Sodium 143.0 Chloride 120.0 H Glucose 57 L Lactate 1.2 FiO2 21.0 Crit Value Called To Dr shirin donovan Crit Value Called By 6051 Crit Value Read Back Y Blood Gas Notified Time 2130 Potassium Carbon Dioxide Anion Gap BUN Creatinine Est GFR ( Amer) Est GFR (Non-Af Amer) Random Glucose Calcium Total Bilirubin AST ALT Alkaline Phosphatase Total Protein Albumin Globulin Albumin/Globulin Ratio Venous Blood Potassium 1.7 L* 01/04/18 01/04/18 01/05/18 11:56 11:56 12:16 WBC 14.8 H 12.2 H RBC 3.52 L 3.63 L Hgb 10.4 L 10.7 L Hct 31.1 L 31.4 L MCV 88.3 86.3 D MCH 29.6 29.5 MCHC 33.5 34.1 RDW 17.4 H 17.4 H Plt Count 377 344 MPV 7.8 Neut % (Auto) 77.5 H Lymph % (Auto) 9.2 L [place] % (Auto) 10.7 H Eos % (Auto) 2.2 Baso % (Auto) 0.4 Neut # (Auto) 9.5 H Lymph # (Auto) 1.1 [place] # (Auto) 1.3 H Eos # (Auto) 0.3 Baso # (Auto) 0.0 Neutrophils % (Manual) Band Neutrophils % Lymphocytes % (Manual) Monocytes % (Manual) Eosinophils % (Manual) Dohle Bodies Platelet Estimate Polychromasia Poikilocytosis (manual Anisocytosis (manual) pO2 ABG Carboxyhemoglobin POC ABG HHb (Measured) ABG Methemoglobin VBG pH VBG pCO2 VBG HCO3 VBG Total CO2 VBG O2 Sat (Calc) VBG Base Excess VBG Hgb O2 Saturation VBG Potassium Hemoglobin Sodium 139 Chloride 110 H Glucose Lactate FiO2 Crit Value Called To Crit Value Called By Crit Value Read Back Blood Gas Notified Time Potassium 4.4 Carbon Dioxide 21 L Anion Gap 12 BUN 16 Creatinine 0.5 L Est GFR ( Amer) > 60 Est GFR (Non-Af Amer) > 60 Random Glucose 92 Calcium 10.3 H Total Bilirubin 0.5 AST 29 ALT 15 Alkaline Phosphatase 107 Total Protein 7.9 Albumin 3.5 Globulin 4.4 H Albumin/Globulin Ratio 0.8 L Venous Blood Potassium Microbiology 01/05/18 12:16 Blood-Venous Blood Culture - Preliminary NO GROWTH AFTER 24 HOURS 01/05/18 12:16 Blood-Venous Blood Culture - Preliminary NO GROWTH AFTER 24 HOURS 01/03/18 17:00 Blood Blood Culture - Final Enterococcus Faecalis 01/03/18 17:00 Blood Gram Stain - Final 01/03/18 17:57 Urine,[place] Urine Culture - Final 10-50,000 CFU/ML. MULTIPLE SPECIES. PROBABLE CONTAMINATION. Assessment and Plan (1) Leukocytosis Status: Acute (2) UTI (urinary tract infection) Status: Acute (3) CVA (cerebral vascular accident) Status: Acute (4) S/P percutaneous endoscopic gastrostomy (PEG) tube placement Status: Acute (5) Status post tracheostomy Status: Acute - Assessment and Plan (Free Text) Assessment: A/P- 52 year old female with extensive medical history including cervical CA s/p hysterectomy and chemo, sepsis and bacteremia nad MDR UTI in 03/2017, CVA s/p intubation , later trached, s/p peg and has indwelling castillo cath admitted with cloudy urine and low garde temp. afebrile today. leukocytosis trending down + UA cxr- negative as per report. blood cx- e.fecalis x 1 sens to vanco urine cx- multiple organisms ( contaminant) repeat blood cx- neg x 2 TTE- no veg as per report but Aortic valve not well visualized as per report. PLan- send another urine cx. continue with IV meroepenm for UTI pending repeat urine cx. day #2. advise to monitor still for nay rash or sob while on meropenem. continue with IV vanco for e.fecalis bacteremia day #2 keep trough <20. All above d/w patient and her and they verbalize full understanding of all above and agree with above plan of care.
--- NOTE | 2018-01-06 16:29 | CARD ---
APPROVED REPORT Date of service: 01/06/2018 EXAM: Two-dimensional and M-mode echocardiogram with Doppler and color Doppler. Other Information Quality : FairRhythm : NSR Technically limited study due to Very Poor Echo Window. INDICATION Infection: Bacteremia 2D DIMENSIONS IVSd0.66 (0.7-1.1cm)LVDd2.85 (3.9-5.9cm) LVOT Diameter1.73 (1.8-2.4cm)PWd0.89 (0.7-1.1cm) IVSs0.83 (0.8-1.2cm)LVDs2.67 (2.5-4.0cm) FS (%) 6.3 %PWs0.96 (0.8-1.2cm) Aortic Valve AoV Peak Kmjbmbjq615.3cm/sAoV VTI14.6cmAO Peak GR.4mmHg LVOT Peak Venfvqxd03.0cm/sLVOT VTI12.25cmAO Mean GR.2mmHg SHA (VMAX)1.57vm4MOO (VTI)1.30cm2 Mitral Valve MV E Kdbconkf71.1cm/sMV DECEL SSBY355cmEN A Uvehimfg37.2cm/s MV UIY95aaA/A ratio0.7MVA (PHT)3.59cm2 TDI Lateral E' Peak V11.08cm/sMedial E' Peak V10.43cm/sE/Lateral E'3.4 E/Medial E'3.7 LEFT VENTRICLE The left ventricle is normal size. There is normal left ventricular wall thickness. The left ventricular ejection fraction is grossly within the normal range. Unable to estimate EF No regional wall motion abnormalities noted.. Transmitral Doppler flow pattern is Grade I-abnormal relaxation pattern. No left ventricle thrombus noted on this study. There is no mass noted in the left ventricle. RIGHT VENTRICLE The right ventricle is normal size. There is normal right ventricular wall thickness. The right ventricular systolic function is normal. ATRIA The left atrium size is normal. The right atrium size is normal. AORTIC VALVE The aortic valve is very poorly visualized No aortic regurgitation is present. There is no aortic valvular stenosis. MITRAL VALVE The mitral valve is normal in structure. There is no mitral valve stenosis. There is no mitral valve regurgitation noted. TRICUSPID VALVE The tricuspid valve is normal in structure. There is no tricuspid valve regurgitation noted. PULMONIC VALVE The pulmonary valve is not visualized no doppler performed GREAT VESSELS The aortic root is normal in size. The ascending aorta is normal in size. The pulmonary artery is normal. The IVC is normal in size and collapses >50% with inspiration. PERICARDIAL EFFUSION There is no pericardial effusion. <Conclusion> No parasternal short axis views Grossly normal LV systolic function with doppler hemodynamics consistent with abnormal relaxation No gross evidence of valvular vegetation, but aortic valve poorly visualized and pulmonic valve not seen If clinically suspect SBE, recommend MATTY
[2018-01-07] MEDS: Meropenem 1 GM in Sodium Chloride 0.9% 100 ML IVPB SCH ×2 (00:04→09:17)
[2018-01-07] MEDS: Proshield Plus GEL TOP SCH ×3 (00:14→17:25)
[2018-01-07 07:32] LABS: URINE BACTERIA RARE (<OCC); URINE BILIRUBIN NEGATIVE (NEGATIVE); URINE BLOOD NEGATIVE (NEGATIVE); URINE CALCIUM OXALATE CRYSTALS OCC /hpf (<OCC); URINE CLARITY CLOUDY (Clear); URINE COLOR YELLOW (YELLOW); URINE GLUCOSE (UA) 50 mg/dL (Normal); URINE PROTEIN 30 mg/dL (NEGATIVE); URINE UROBILINOGEN 0.2-1.0 mg/dL (0.2-1.0)
[2018-01-07 07:36] LABS: URINE LEUKOCYTE ESTERASE TRACE Leu/uL (Negative)
[2018-01-07] MEDS: Albuterol-Ipratrop 3 mg / 0.5 (3 ml) UD INH SCH ×3 (07:55→19:09)
[2018-01-07] MEDS: levETIRAcetam 100 mg/ml (5ml) Oral Syringe PEG SCH ×2 (11:02→20:30)
[2018-01-07] MEDS: DESTIN OINT TOP SCH (11:03)
[2018-01-07] MEDS: Magnesium Oxide 400 mg Tab UD PEG SCH ×2 (11:04→17:23)
[2018-01-07] MEDS: Pantoprazole 40 mg Susp UD PEG SCH (11:05)
--- NOTE | 2018-01-07 14:24 | PN ---
Copied To: Jeferson Martel MD Attending MD: Jeferson Martel MD DATE: 01/07/2018 SUBJECTIVE: The patient seen and examined. Interim events noted. The patient remains in progressive care unit on telemetry monitoring. The patient is sleepy, arousable. Feels okay. Denies any specific complaints. No chest pain or shortness of breath. No urinary symptoms. PHYSICAL EXAMINATION: GENERAL: The patient is in no acute distress. VITAL SIGNS: Stable. HEART: S1 and S2. Normal and regular. LUNGS: Good bilateral air exchange. ABDOMEN: Soft and nontender. EXTREMITIES: No edema. No calf swelling. No tenderness. No acute ischemia. STATE PILOT: Exam is essentially unchanged. DIAGNOSTIC DATA: Available diagnostic data reviewed. Telemetry monitoring does not reveal significant arrhythmias. ASSESSMENT AND PLAN: Overall, the patient's general medical condition is stable. Plan as ordered. Jeferson Martel MD
[2018-01-08] MEDS: Proshield Plus GEL TOP SCH ×3 (01:15→16:28)
[2018-01-08 07:17] LABS: HEMOGLOBIN 10.4 g/dL (12.0-16.0); MEAN CELL VOLUME 87.1 fl (81.0-99.0); MEAN CORPUSCULAR HEMOGLOBIN 29.4 pg (27.0-31.0); MEAN CORPUSCULAR HGB CONC 33.8 g/dL (33.0-37.0); RBC 3.54 Mil/uL (3.80-5.20); RED CELL DISTRIBUTION WIDTH 17.7 % (11.5-14.5); WHITE BLOOD COUNT 14.5 K/uL (4.8-10.8)
[2018-01-08] MEDS: Albuterol-Ipratrop 3 mg / 0.5 (3 ml) UD INH SCH ×3 (07:31→19:08)
[2018-01-08 07:33] LABS: ALB/GLOB RATIO 0.8 (1.0-2.1); ALBUMIN 3.3 g/dL (3.5-5.0); ALT/SGPT 18 U/L (9-52); AST/SGOT 27 U/L (14-36); BLOOD UREA NITROGEN 8 mg/dl (7-17); CALCIUM 10.6 mg/dL (8.4-10.2); GFR NON-AFRICAN AMERICAN > 60
[2018-01-08] MEDS ORDERED: Magnesium Oxide 400 mg Tab UD PO SCH (11:15)
[2018-01-08] MEDS: DESTIN OINT TOP SCH (11:21)
[2018-01-08] MEDS: levETIRAcetam 100 mg/ml (5ml) Oral Syringe PEG SCH ×2 (11:22→21:36)
[2018-01-08] MEDS: Pantoprazole 40 mg Susp UD PEG SCH (11:23)
[2018-01-08] MEDS: Magnesium Oxide 400 mg Tab UD PEG SCH ×2 (11:27→16:25)
[2018-01-08] MEDS ORDERED: Potassium Chloride 20 mEq/15 ml LIQ UD PEG ONE ×2 (13:26→20:00)
--- NOTE | 2018-01-08 16:38 | PN ---
Copied To: Jeferson Martel MD Attending MD: Jeferson Martel MD DATE: 01/08/2018 SUBJECTIVE: The patient is seen and examined. Interim events noted. Consults noted and appreciated. The patient remains in progressive care unit on telemetry monitoring. Feels better. Denies any specific complaints. Nursing reported the patient with very difficult IV and unable to get IV access. I myself tried IV access, but not successful. The patient tomorrow. PHYSICAL EXAMINATION: GENERAL: The patient is in no acute distress. VITAL SIGNS: Stable. HEART: S1 and S2. Normal and regular. LUNGS: Good bilateral air exchange. ABDOMEN: Soft and nontender. EXTREMITIES: The patient has minimal generalized anasarca. No calf swelling. No tenderness. No acute ischemia. 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 SKIN: Tracheostomy and PEG tube is in good position and functioning. DIAGNOSTIC DATA: Available diagnostic data reviewed. Magnesium level is significantly low, but the patient does not have IV access. Telemetry monitoring does not reveal significant arrhythmias. PLAN: As ordered. Jeferson Martel MD
[2018-01-09] MEDS: Proshield Plus GEL TOP SCH ×2 (01:31→09:48)
[2018-01-09 06:53] LABS: HEMOGLOBIN 10.8 g/dL (12.0-16.0); MEAN CELL VOLUME 87.1 fl (81.0-99.0); MEAN CORPUSCULAR HGB CONC 33.3 g/dL (33.0-37.0); RBC 3.74 Mil/uL (3.80-5.20); RED CELL DISTRIBUTION WIDTH 18.3 % (11.5-14.5); WHITE BLOOD COUNT 12.6 K/uL (4.8-10.8)
[2018-01-09] MEDS: Albuterol-Ipratrop 3 mg / 0.5 (3 ml) UD INH SCH ×3 (07:31→19:10)
[2018-01-09 07:38] LABS: ALB/GLOB RATIO 0.9 (1.0-2.1); ALBUMIN 3.5 g/dL (3.5-5.0); ALT/SGPT 30 U/L (9-52); AST/SGOT 31 U/L (14-36); BLOOD UREA NITROGEN 8 mg/dl (7-17); CALCIUM 11.7 mg/dL (8.4-10.2); GFR NON-AFRICAN AMERICAN > 60
[2018-01-09] MEDS: levETIRAcetam 100 mg/ml (5ml) Oral Syringe PEG SCH ×2 (09:46→22:54)
[2018-01-09] MEDS: Magnesium Oxide 400 mg Tab UD PEG SCH ×2 (09:47→16:36)
[2018-01-09] MEDS: Pantoprazole 40 mg Susp UD PEG SCH (09:48)
--- NOTE | 2018-01-09 10:31 | CP.PCM.PN ---
Subjective - Date & Time of Evaluation Date of Evaluation: 01/09/18 Time of Evaluation: 10:31 - Subjective Subjective: ID note- pt. seen and examiend today . pt. in good spirts and smiling. denies any complaints. her is at her bedside. Pt. agreeable to picc line. she has had no IVL access since sat. Objective - Vital Signs/Intake and Output Vital Signs (last 24 hours): Temp Pulse Resp BP Pulse Ox 97.9 F 106 H 18 125/83 99 01/09/18 08:00 01/09/18 09:47 01/09/18 08:00 01/09/18 09:47 01/09/18 08:00 Intake and Output: 01/09/18 01/09/18 06:59 18:59 Intake Total 340 Output Total 403 Balance -63 - Medications Medications: Current Medications Acetaminophen (Tylenol 325mg Tab) 650 mg PEG Q6 PRN PRN Reason: Pain, Mild (1-3) Last Admin: 01/08/18 16:23 Dose: 650 mg Al Hydrox/Mg Hydrox/Simethicone (Maalox Plus 30 Ml) 30 ml PEG Q8 PRN PRN Reason: Indigestion / Heartburn Last Admin: 01/07/18 18:08 Dose: 30 ml Albuterol/Ipratropium (Duoneb 3 Mg/0.5 Mg (3 Ml) Ud) 3 ml INH RTID [facility] Last Admin: 01/09/18 07:31 Dose: Not Given Ciprofloxacin (Cipro) 500 mg PO Q12 [facility] PRN Reason: Protocol Last Admin: 01/09/18 09:46 Dose: 500 mg Clotrimazole (Lotrimin 1% Cream) 1 applic TOP BID [facility] Last Admin: 01/08/18 16:24 Dose: 1 applic Dimethicone (Proshield Plus Skin Protectant) 1 applic TOP Q8 [facility] Last Admin: 01/09/18 09:48 Dose: 1 applic Docusate Sodium (Colace Liquid) 100 mg PEG DAILY [facility] Last Admin: 01/09/18 09:49 Dose: Not Given Gabapentin (Neurontin) 100 mg PEG Q8 [facility] Last Admin: 01/09/18 09:47 Dose: 100 mg Levetiracetam (Keppra) 500 mg PEG Q12 [facility] Last Admin: 01/09/18 09:46 Dose: 500 mg Magnesium Oxide (Mag-Ox) 800 mg PEG BID [facility] Last Admin: 01/09/18 09:47 Dose: 800 mg Metoprolol Tartrate (Lopressor) 25 mg PEG Q12 [facility] Last Admin: 01/09/18 09:47 Dose: 25 mg Morphine Sulfate (Morphine) 1 mg IVP Q6 PRN PRN Reason: Pain, moderate (4-7) Last Admin: 01/06/18 21:02 Dose: 1 mg Nystatin (Mycostatin Cream) 1 applic TOP BID [facility] Last Admin: 01/08/18 16:26 Dose: 1 applic Pantoprazole Sodium (Protonix Susp) 40 mg PEG DAILY [facility] Last Admin: 01/09/18 09:48 Dose: 40 mg Petrolatum (Desitin Maximum Strength Topical 40% Oint) 1 applic TOP DAILY [facility] Last Admin: 01/08/18 11:21 Dose: 1 applic Rivaroxaban (Xarelto) 20 mg PEG QPM [facility] PRN Reason: Protocol Last Admin: 01/08/18 18:46 Dose: 20 mg Sertraline HCl (Zoloft) 25 mg PO HS [facility] Last Admin: 01/08/18 21:37 Dose: 25 mg - Labs Labs: - Additional Findings Additional findings: - Constitutional Appears: No Acute Distress - Head Exam Head Exam: ATRAUMATIC - Eye Exam Eye Exam: EOMI - ENT Exam Additional comments: has trach in place, no erythema and no discharge from around trach site - Neck Exam Additional comments: supple - Respiratory Exam Respiratory Exam: NORMAL BREATHING PATTERN Additional comments: Good breath sounds heard B/L no wheezing - Cardiovascular Exam Cardiovascular Exam: RRR, +S1, +S2 - GI/Abdominal Exam GI & Abdominal Exam: Normal Bowel Sounds, Soft Additional comments: NT, ND peg tube site clean/dry/intact no erythema no lesions no guarding, no rebound - Extremities Exam Additional comments: no edema b/l LE - Neurological Exam Neurological exam: Alert Additional comments: awake, alert oriented Laboratory Results - last 72 hr 01/07/18 01/08/18 01/08/18 07:14 06:20 06:20 WBC 14.5 H RBC 3.54 L Hgb 10.4 L Hct 30.8 L MCV 87.1 MCH 29.4 MCHC 33.8 RDW 17.7 H Plt Count 329 Sodium 139 Potassium 3.1 L Chloride 103 Carbon Dioxide 27 Anion Gap 12 BUN 8 Creatinine 0.6 L Est GFR ( Amer) > 60 Est GFR (Non-Af Amer) > 60 Random Glucose 103 Calcium 10.6 H Phosphorus 2.6 Magnesium 0.9 L* D Total Bilirubin 0.3 AST 27 ALT 18 Alkaline Phosphatase 123 Total Protein 7.3 Albumin 3.3 L Globulin 4.0 H Albumin/Globulin Ratio 0.8 L Urine Color Yellow Urine Clarity Cloudy Urine pH 6.0 Ur Specific [place] 1.014 Urine Protein 30 Urine Glucose (UA) 50 Urine Ketones Negative Urine Blood Negative Urine Nitrate Negative Urine Bilirubin Negative Urine Urobilinogen 0.2-1.0 Ur Leukocyte Esterase Trace Urine RBC (Auto) 3 Urine Microscopic WBC 12 H Calcium Oxalate Crystal Occ H Urine Bacteria Rare Hyaline Casts 3-5 H 01/09/18 01/09/18 05:35 05:35 WBC 12.6 H RBC 3.74 L Hgb 10.8 L Hct 32.6 L MCV 87.1 MCH 29.0 MCHC 33.3 RDW 18.3 H Plt Count 373 Sodium 140 Potassium 4.8 Chloride 106 Carbon Dioxide 25 Anion Gap 14 BUN 8 Creatinine 0.7 Est GFR ( Amer) > 60 Est GFR (Non-Af Amer) > 60 Random Glucose 103 Calcium 11.7 H Phosphorus Magnesium Total Bilirubin 0.4 AST 31 ALT 30 Alkaline Phosphatase 138 H Total Protein 7.6 Albumin 3.5 Globulin 4.1 H Albumin/Globulin Ratio 0.9 L Urine Color Urine Clarity Urine pH Ur Specific [place] Urine Protein Urine Glucose (UA) Urine Ketones Urine Blood Urine Nitrate Urine Bilirubin Urine Urobilinogen Ur Leukocyte Esterase Urine RBC (Auto) Urine Microscopic WBC Calcium Oxalate Crystal Urine Bacteria Hyaline Casts Microbiology 01/05/18 12:16 Blood-Venous Blood Culture - Preliminary NO GROWTH AFTER 4 DAYS 01/05/18 12:16 Blood-Venous Blood Culture - Preliminary NO GROWTH AFTER 4 DAYS 01/06/18 11:30 Urine,[place] Urine Culture - Final No Growth (<1,000 CFU/ML) 01/05/18 16:24 Urine,[place] Urine Culture - Final Proteus Mirabilis 01/03/18 17:00 Blood Blood Culture - Final Enterococcus Faecalis 01/03/18 17:00 Blood Gram Stain - Final 01/03/18 17:57 Urine,[place] Urine Culture - Final 10-50,000 CFU/ML. MULTIPLE SPECIES. PROBABLE CONTAMINATION. Assessment and Plan (1) Leukocytosis Status: Acute (2) UTI (urinary tract infection) Status: Acute (3) CVA (cerebral vascular accident) Status: Acute (4) S/P percutaneous endoscopic gastrostomy (PEG) tube placement Status: Acute (5) Status post tracheostomy Status: Acute - Assessment and Plan (Free Text) Assessment: A/P- 52 year old female with extensive medical history including cervical CA s/p hysterectomy and chemo, sepsis and bacteremia nad MDR UTI in 03/2017, CVA s/p intubation , later trached, s/p peg and has indwelling castillo cath admitted with cloudy urine and low garde temp. afebrile past few days. leukocytosis trending down + UA cxr- negative as per report. blood cx- e.fecalis x 1 sens to vanco, cipro and linezolid but linezolid AMEENA is 2 urine cx-01/05/2018 proteus but was 10-50,000 repeat urine cx- 01/06/2018- negative repeat blood cx- neg x 2 TTE- no veg as per report but Aortic valve not well visualized as per report. PLan- has completed 4 days of IV meropenem . repeat urine cx- negative. d/c meropenem. can resume IV vanco for e.fecalis bacteremia day #3 today since yesterday was receiving oral cipro sicne pt. had no IV access yesterday. keep trough <20. will need total of 14 pineda of IV vancomycin for e.fecalis bactermia. hence 11 more days. check blood cx post completion of iv abx as outpatient. keep vanco trough between 15-20. monitor creatinine and hearing while on vancomycin. advise to obtain another echo since the first TTE was reported as poor visualization of the aortic valve by manager solar. All above d/w patient and her and they verbalize full understanding of all above and agree with above plan of care.
[2018-01-09] MEDS: DESTIN OINT TOP SCH (11:25)
[2018-01-09] MEDS ORDERED: Lidocaine Hydrochloride 1% 0 ML ONE (13:13)
--- NOTE | 2018-01-09 13:19 | PN ---
Copied To: Jeferson Martel MD Attending MD: Jeferson Martel MD DATE: 01/09/2018 SUBJECTIVE: The patient seen and examined. Interim events noted. The patient remains in progressive care unit on telemetry monitoring. The patient is very uncooperative and refuses to do IV and also wants to go home. Denies any specific compliant. No chest pain. No shortness of breath. PHYSICAL EXAMINATION: GENERAL: The patient is in no acute distress. VITAL SIGNS: Stable. HEART: S1 and S2. Normal and regular. LUNGS: Good bilateral air exchange. ABDOMEN: Soft and nontender. EXTREMITIES: No edema. No calf swelling. No tenderness. No acute ischemia. SOFTWARE TECHNICAL LEAD: Exam is essentially unchanged. Tracheostomy and gastrostomy tubes are in good position and functioning. DIAGNOSTIC DATA: Available diagnostic data reviewed. Telemetry monitoring does not reveal significant arrhythmias. ASSESSMENT AND PLAN: Overall, the patient's general medical condition is stable. The patient . Plan as ordered. Jeferson Martel MD
[2018-01-09] MEDS ORDERED: Lidocaine 1% 5ml Abboject IV ONE (14:21)
--- NOTE | 2018-01-09 14:40 | PCM.SURG1 ---
Surgeon's Initial Post Op Note - Surgeon's Notes Surgeon: Jamil Fuentes MD Rescue Boat Operator: NONE Type of Anesthesia: Local Pre-Operative Diagnosis: Poor venous access Operative Findings: US showed a patent right brachial vein. Central venous stenosis/occlusion Post-Operative Diagnosis: Poor venous access Operation Performed: Picc placed right arm. Unable to advance picc centrally. Specimen/Specimens Removed: NONE Estimated Blood Loss: EBL {In ML}: 2 Drains Used: No Drains Post-Op Condition: Fair Date of Surgery/Procedure: 01/09/18 Time of Surgery/Procedure: 14:40
[2018-01-10] MEDS: Proshield Plus GEL TOP SCH ×4 (01:00→19:00)
[2018-01-10 06:09] LABS: HEMOGLOBIN 10.6 g/dL (12.0-16.0); MEAN CELL VOLUME 87.9 fl (81.0-99.0); MEAN CORPUSCULAR HEMOGLOBIN 29.3 pg (27.0-31.0); MEAN CORPUSCULAR HGB CONC 33.4 g/dL (33.0-37.0); RBC 3.62 Mil/uL (3.80-5.20); RED CELL DISTRIBUTION WIDTH 18.1 % (11.5-14.5); WHITE BLOOD COUNT 11.4 K/uL (4.8-10.8)
[2018-01-10 07:05] LABS: ALB/GLOB RATIO 0.8 (1.0-2.1); ALBUMIN 3.2 g/dL (3.5-5.0); ALT/SGPT 31 U/L (9-52); AST/SGOT 47 U/L (14-36); BLOOD UREA NITROGEN 8 mg/dl (7-17); CALCIUM 11.3 mg/dL (8.4-10.2); GFR NON-AFRICAN AMERICAN > 60
--- NOTE | 2018-01-10 07:17 | PQF ---
PROVIDER RESPONSE TEXT: Enterococcus faecalis septicemia REVIEWER QUERY TEXT: Clarification of Clinical Diagnostic Findings Please document confirmed, suspected or probable causative organism of Sepsis: if known after the wor k up is completed OR: Unable to determine 01/03 :Blood culture x one listed in the EMR: Final: Enterococcus Faecalis 01/03: Urine culture: 10-50,000 CFU/ML: multiple species; probable contamination 01/05 :Blood culture x 2: preliminary: no growth after 24 hours 01/06: Draft progress note of the Resident working with the Attending: admitted due to sepsis due to f oley catheter related UTI; blood culture has grown gram positive cocci in pairs. Plan: - ID consulted; recs appreciated - IV antibiotics: meropenem 1g Q8 and vancomycin 1g Q12 - echo pending - repeat blood and urine cultures pending - wound care for sacral excoriations The patient's Clinical Indicators include: xx Query created by: Radha Berumen on 01/06/2018 2:34 PM Electronically signed by: Jeferson Martel 01/10/2018 7:14 AM
[2018-01-10] MEDS: Albuterol-Ipratrop 3 mg / 0.5 (3 ml) UD INH SCH ×3 (07:29→19:16)
--- NOTE | 2018-01-10 07:59 | CP.PCM.PN ---
<KarlosmauriGunjana - Last Filed: 01/10/18 12:56> Subjective - Date & Time of Evaluation Date of Evaluation: 01/10/18 Time of Evaluation: 07:45 - Subjective Subjective: Pt seen this morning; no acute events overnight. Had PICC line placed yesterday. She has increased pain due to MASD. Objective - Vital Signs/Intake and Output Vital Signs (last 24 hours): Temp Pulse Resp BP Pulse Ox 96.4 F L 75 18 115/75 100 01/10/18 05:18 01/10/18 05:18 01/10/18 05:18 01/10/18 05:18 01/10/18 05:18 - Medications Medications: Current Medications Acetaminophen (Tylenol 325mg Tab) 650 mg PEG Q6 PRN PRN Reason: Pain, Mild (1-3) Last Admin: 01/09/18 23:24 Dose: 650 mg Al Hydrox/Mg Hydrox/Simethicone (Maalox Plus 30 Ml) 30 ml PEG Q8 PRN PRN Reason: Indigestion / Heartburn Last Admin: 01/07/18 18:08 Dose: 30 ml Albuterol/Ipratropium (Duoneb 3 Mg/0.5 Mg (3 Ml) Ud) 3 ml INH RTID [facility] Last Admin: 01/10/18 07:29 Dose: 3 ml Clotrimazole (Lotrimin 1% Cream) 1 applic TOP BID [facility] Last Admin: 01/09/18 16:37 Dose: 1 applic Dimethicone (Proshield Plus Skin Protectant) 1 applic TOP Q8 [facility] Last Admin: 01/10/18 02:24 Dose: 1 applic Docusate Sodium (Colace Liquid) 100 mg PEG DAILY [facility] Last Admin: 01/09/18 09:49 Dose: Not Given Gabapentin (Neurontin) 100 mg PEG Q8 [facility] Last Admin: 01/10/18 02:24 Dose: 100 mg Vancomycin HCl 1 gm/ Sodium (Chloride) 250 mls @ 166.667 mls/hr IVPB Q12 [facility] PRN Reason: Protocol Last Admin: 01/09/18 23:10 Dose: 166.667 mls/hr Levetiracetam (Keppra) 500 mg PEG Q12 [facility] Last Admin: 01/09/18 22:54 Dose: 500 mg Magnesium Oxide (Mag-Ox) 800 mg PEG BID [facility] Last Admin: 01/09/18 16:36 Dose: 800 mg Metoprolol Tartrate (Lopressor) 25 mg PEG Q12 [facility] Last Admin: 01/09/18 22:54 Dose: 25 mg Nystatin (Mycostatin Cream) 1 applic TOP BID [facility] Last Admin: 01/09/18 16:38 Dose: 1 applic Pantoprazole Sodium (Protonix Susp) 40 mg PEG DAILY [facility] Last Admin: 01/09/18 09:48 Dose: 40 mg Petrolatum (Desitin Maximum Strength Topical 40% Oint) 1 applic TOP DAILY [facility] Last Admin: 01/09/18 11:25 Dose: 1 applic Rivaroxaban (Xarelto) 20 mg PEG QPM [facility] PRN Reason: Protocol Last Admin: 01/09/18 23:10 Dose: 20 mg Sertraline HCl (Zoloft) 25 mg PO HS [facility] Last Admin: 01/08/18 21:37 Dose: 25 mg - Labs Labs: 01/10/18 04:20 01/10/18 04:20 - Constitutional Appears: No Acute Distress - Head Exam Head Exam: NORMOCEPHALIC - ENT Exam ENT Exam: Mucous Membranes Moist - Neck Exam Additional comments: + trach - Respiratory Exam Respiratory Exam: Clear to Ausculation Bilateral, NORMAL BREATHING PATTERN - Cardiovascular Exam Cardiovascular Exam: REGULAR RHYTHM, +S1, +S2 - GI/Abdominal Exam GI & Abdominal Exam: Soft Additional comments: + peg tube - Extremities Exam Extremities Exam: absent: Calf Tenderness - Neurological Exam Neurological Exam: Alert, Awake Additional comments: L sided weakness, chronic - Skin Skin Exam: Dry, Normal Color, Warm Assessment and Plan - Assessment and Plan (Free Text) Assessment: 52 yo F, hx cervical ca, CVA, respiratory failure, aspiration pneumonia in the past with multiple different hospital admissions; has trach collar and PEG tube , admitted due to sepsis due to castillo catherer related UTI. Initial blood culture grew E. faecalis, and urine culture P. mirabilis; repeat blood culture no growth. Plan: - ID consulted; recs appreciated; will need 14 total days (11 more days) via PICC line - wound care for MASD - tylenol-3 Q8 PRN - resume home meds - on xarelto <Jeferson Martel K - Last Filed: 01/11/18 10:17> Objective - Vital Signs/Intake and Output Vital Signs (last 24 hours): Temp Pulse Resp BP Pulse Ox 97.7 F 77 20 111/76 99 01/11/18 08:00 01/11/18 09:31 01/11/18 08:00 01/11/18 09:31 01/11/18 08:00 - Medications Medications: Current Medications Acetaminophen (Tylenol 325mg Tab) 650 mg PEG Q6 PRN PRN Reason: Pain, Mild (1-3) Last Admin: 01/09/18 23:24 Dose: 650 mg Acetaminophen/Codeine Phosphate (Tylenol/Codeine 300 Mg/30 Mg) 1 tab PEG Q8 PRN PRN Reason: Pain, moderate (4-7) Last Admin: 01/11/18 00:29 Dose: 1 tab Al Hydrox/Mg Hydrox/Simethicone (Maalox Plus 30 Ml) 30 ml PEG Q8 PRN PRN Reason: Indigestion / Heartburn Last Admin: 01/07/18 18:08 Dose: 30 ml Albuterol/Ipratropium (Duoneb 3 Mg/0.5 Mg (3 Ml) Ud) 3 ml INH RTID [facility] Last Admin: 01/11/18 07:46 Dose: 3 ml Clotrimazole (Lotrimin 1% Cream) 1 applic TOP BID [facility] Last Admin: 01/11/18 09:37 Dose: 1 applic Dimethicone (Proshield Plus Skin Protectant) 1 applic TOP Q8 [facility] Last Admin: 01/11/18 09:40 Dose: 1 applic Docusate Sodium (Colace Liquid) 100 mg PEG DAILY [facility] Last Admin: 01/11/18 09:29 Dose: 100 mg Gabapentin (Neurontin) 100 mg PEG Q8 [facility] Last Admin: 01/11/18 09:39 Dose: 100 mg Vancomycin HCl 1 gm/ Sodium (Chloride) 250 mls @ 166.667 mls/hr IVPB Q12 [facility] PRN Reason: Protocol Last Admin: 01/11/18 09:41 Dose: 166.667 mls/hr Levetiracetam (Keppra) 500 mg PEG Q12 [facility] Last Admin: 01/11/18 09:31 Dose: 500 mg Magnesium Oxide (Mag-Ox) 800 mg PEG BID [facility] Last Admin: 01/11/18 09:38 Dose: 800 mg Metoprolol Tartrate (Lopressor) 25 mg PEG Q12 [facility] Last Admin: 01/11/18 09:31 Dose: 25 mg Nystatin (Mycostatin Cream) 1 applic TOP BID [facility] Last Admin: 01/11/18 09:39 Dose: 1 applic Pantoprazole Sodium (Protonix Susp) 40 mg PEG DAILY [facility] Last Admin: 01/11/18 09:40 Dose: 40 mg Petrolatum (Desitin Maximum Strength Topical 40% Oint) 1 applic TOP DAILY [facility] Last Admin: 01/11/18 09:31 Dose: 1 applic Rivaroxaban (Xarelto) 20 mg PEG QPM [facility] PRN Reason: Protocol Last Admin: 01/10/18 19:01 Dose: 20 mg Sertraline HCl (Zoloft) 25 mg PO HS [facility] Last Admin: 01/10/18 22:07 Dose: 25 mg - Labs Labs: 01/10/18 04:20 01/10/18 04:20 Assessment and Plan - Assessment and Plan (Free Text) Plan: Patient was personally seen and examined by me in rounds with residents. Available labs and diagnostic data reviewed. Case, Patient's condition and management plan discussed with residents in rounds. Agree with resident's progress note. Plan: As ordered.
[2018-01-10] MEDS: DESTIN OINT TOP SCH (12:16)
[2018-01-10] MEDS: levETIRAcetam 100 mg/ml (5ml) Oral Syringe PEG SCH ×2 (12:17→22:14)
[2018-01-10] MEDS: Magnesium Oxide 400 mg Tab UD PEG SCH ×2 (12:19→18:59)
[2018-01-10] MEDS: Pantoprazole 40 mg Susp UD PEG SCH (12:21)
--- NOTE | 2018-01-10 13:38 | VASCULAR ---
PROCEDURE: Date of procedure: 01/09/2018 Procedure: 1. Placement of a right arm PICC with ultrasound and fluoroscopic guidance, CPT 42507 Medications: 2cc 1 percent lidocaine Total Fluoro time: 57.9 seconds Radiation: 3.46 MGy EBL: 2 cc HISTORY: Poor venous access TECHNIQUE: Following informed consent and procedure time-out, the patient was placed supine on the interventional table and the right arm prepped and draped in the usual sterile fashion. Ultrasound showed a patent and compressible right brachial vein. After the skin was anesthetized with lidocaine, the basilic vein was accessed with micro micropuncture technique using ultrasound guidance. There was difficulty advancing guidewire centrally secondary to subclavian vein stenosis or occlusion. An image documenting ultrasound guidance for vascular access was permanently saved. The length of the single-lumen 4 Brazilian PICC was trimmed to 15 centimeters and advanced through a peel-away sheath. The PICC was position with tip of PICC confirm a spot radiograph the axillary vein. The PICC was secured to the patient's skin. The PICC was flushed. A biopatch and sterile dressing was applied. IMPRESSION: Placement of a single-lumen 4 Brazilian PICC trimmed to 15 centimeters via right brachial vein. The PICC could not be advanced centrally secondary subclavian vein stenosis or occlusion. The PICC was positioned within the axillary vein.
[2018-01-11] MEDS: Acetaminophen-Codeine 300/30 mg Tab PEG PRN (00:29)
[2018-01-11] MEDS: Albuterol-Ipratrop 3 mg / 0.5 (3 ml) UD INH SCH ×3 (07:46→19:18)
--- NOTE | 2018-01-11 08:09 | CP.PCM.PN ---
<Aarti New - Last Filed: 01/11/18 11:05> Subjective - Date & Time of Evaluation Date of Evaluation: 01/11/18 Time of Evaluation: 07:20 - Subjective Subjective: Pt seen and evaluated at bedside with Dr. Martel; no acute events overnight. She still requires IV antibiotics; going to rehab facility is not an option due to insurance. Related to patient that it is important for her to receive appropriate antibiotics; she nodded in agreement. Objective - Vital Signs/Intake and Output Vital Signs (last 24 hours): Temp Pulse Resp BP Pulse Ox 97.5 F L 96 H 18 115/79 98 01/11/18 04:55 01/11/18 04:55 01/11/18 04:55 01/11/18 04:55 01/11/18 04:55 - Medications Medications: Current Medications Acetaminophen (Tylenol 325mg Tab) 650 mg PEG Q6 PRN PRN Reason: Pain, Mild (1-3) Last Admin: 01/09/18 23:24 Dose: 650 mg Acetaminophen/Codeine Phosphate (Tylenol/Codeine 300 Mg/30 Mg) 1 tab PEG Q8 PRN PRN Reason: Pain, moderate (4-7) Last Admin: 01/11/18 00:29 Dose: 1 tab Al Hydrox/Mg Hydrox/Simethicone (Maalox Plus 30 Ml) 30 ml PEG Q8 PRN PRN Reason: Indigestion / Heartburn Last Admin: 01/07/18 18:08 Dose: 30 ml Albuterol/Ipratropium (Duoneb 3 Mg/0.5 Mg (3 Ml) Ud) 3 ml INH RTID [facility] Last Admin: 01/11/18 07:46 Dose: 3 ml Clotrimazole (Lotrimin 1% Cream) 1 applic TOP BID [facility] Last Admin: 01/10/18 18:59 Dose: 1 applic Dimethicone (Proshield Plus Skin Protectant) 1 applic TOP Q8 [facility] Last Admin: 01/10/18 19:00 Dose: 1 applic Docusate Sodium (Colace Liquid) 100 mg PEG DAILY [facility] Last Admin: 01/10/18 12:16 Dose: Not Given Gabapentin (Neurontin) 100 mg PEG Q8 [facility] Last Admin: 01/11/18 00:31 Dose: 100 mg Vancomycin HCl 1 gm/ Sodium (Chloride) 250 mls @ 166.667 mls/hr IVPB Q12 [facility] PRN Reason: Protocol Last Admin: 01/10/18 22:00 Dose: 166.667 mls/hr Levetiracetam (Keppra) 500 mg PEG Q12 [facility] Last Admin: 01/10/18 22:14 Dose: 500 mg Magnesium Oxide (Mag-Ox) 800 mg PEG BID [facility] Last Admin: 01/10/18 18:59 Dose: 800 mg Metoprolol Tartrate (Lopressor) 25 mg PEG Q12 [facility] Last Admin: 01/10/18 22:00 Dose: Not Given Nystatin (Mycostatin Cream) 1 applic TOP BID [facility] Last Admin: 01/10/18 19:00 Dose: 1 applic Pantoprazole Sodium (Protonix Susp) 40 mg PEG DAILY [facility] Last Admin: 01/10/18 12:21 Dose: 40 mg Petrolatum (Desitin Maximum Strength Topical 40% Oint) 1 applic TOP DAILY [facility] Last Admin: 01/10/18 12:16 Dose: 1 applic Rivaroxaban (Xarelto) 20 mg PEG QPM [facility] PRN Reason: Protocol Last Admin: 01/10/18 19:01 Dose: 20 mg Sertraline HCl (Zoloft) 25 mg PO HS [facility] Last Admin: 01/10/18 22:07 Dose: 25 mg - Labs Labs: 01/10/18 04:20 01/10/18 04:20 - Constitutional Appears: No Acute Distress, Chronically Ill - Eye Exam Eye Exam: Normal appearance - Neck Exam Additional comments: + trach - Respiratory Exam Respiratory Exam: NORMAL BREATHING PATTERN. absent: Respiratory Distress - Cardiovascular Exam Cardiovascular Exam: REGULAR RHYTHM - GI/Abdominal Exam GI & Abdominal Exam: Soft. absent: Tenderness Additional comments: + peg - Extremities Exam Extremities Exam: absent: Calf Tenderness, Pedal Edema - Neurological Exam Neurological Exam: Alert - Psychiatric Exam Psychiatric exam: Normal Mood Assessment and Plan - Assessment and Plan (Free Text) Assessment: 52 yo F, hx cervical ca, CVA, respiratory failure, aspiration pneumonia in the past with multiple different hospital admissions; has trach collar and PEG tube , admitted due to sepsis due to castillo catherer related UTI. Initial blood culture grew E. faecalis, and urine culture P. mirabilis; repeat blood culture no growth. Currently on IV antibiotics via PICC. Plan: - ID consulted; recs appreciated; will need 14 total days (10 more days) via PICC line - wound care for MASD - tylenol-3 Q8 PRN - continue with home meds - feeds via peg - on xarelto - continue with rest of plan as ordered <Jeferson Martel - Last Filed: 01/13/18 08:40> Objective - Vital Signs/Intake and Output Vital Signs (last 24 hours): Temp Pulse Resp BP Pulse Ox 98.8 F 82 20 107/70 99 01/12/18 16:10 01/12/18 22:55 01/12/18 16:10 01/12/18 22:55 01/12/18 16:10 Intake and Output: 01/12/18 01/13/18 18:59 06:59 Intake Total 950 Output Total 1900 Balance -950 - Medications Medications: Current Medications Acetaminophen (Tylenol 325mg Tab) 650 mg PEG Q6 PRN PRN Reason: Pain, Mild (1-3) Last Admin: 01/09/18 23:24 Dose: 650 mg Acetaminophen/Codeine Phosphate (Tylenol/Codeine 300 Mg/30 Mg) 1 tab PEG Q8 PRN PRN Reason: Pain, moderate (4-7) Last Admin: 01/13/18 05:38 Dose: 1 tab Al Hydrox/Mg Hydrox/Simethicone (Maalox Plus 30 Ml) 30 ml PEG Q8 PRN PRN Reason: Indigestion / Heartburn Last Admin: 01/07/18 18:08 Dose: 30 ml Albuterol/Ipratropium (Duoneb 3 Mg/0.5 Mg (3 Ml) Ud) 3 ml INH RTID [facility] Last Admin: 01/12/18 19:53 Dose: 3 ml Clotrimazole (Lotrimin 1% Cream) 1 applic TOP BID [facility] Last Admin: 01/12/18 19:04 Dose: 1 applic Dimethicone (Proshield Plus Skin Protectant) 1 applic TOP Q8 [facility] Last Admin: 01/13/18 02:03 Dose: Not Given Docusate Sodium (Colace Liquid) 100 mg PEG DAILY [facility] Last Admin: 01/12/18 12:06 Dose: 100 mg Gabapentin (Neurontin) 100 mg PEG Q8 [facility] Last Admin: 01/13/18 02:02 Dose: Not Given Vancomycin HCl 1 gm/ Sodium (Chloride) 250 mls @ 166.667 mls/hr IVPB Q12 [facility] PRN Reason: Protocol Last Admin: 01/12/18 23:06 Dose: Not Given Levetiracetam (Keppra) 500 mg PEG Q12 [facility] Last Admin: 01/12/18 23:01 Dose: 500 mg Magnesium Oxide (Mag-Ox) 800 mg PEG BID [facility] Last Admin: 01/12/18 19:05 Dose: 800 mg Metoprolol Tartrate (Lopressor) 25 mg PEG Q12 [facility] Last Admin: 01/12/18 22:55 Dose: Not Given Nystatin (Mycostatin Cream) 1 applic TOP BID [facility] Last Admin: 01/12/18 19:04 Dose: 1 applic Ondansetron HCl (Zofran Inj) 4 mg IVP Q6 PRN PRN Reason: Nausea/Vomiting Last Admin: 01/11/18 14:08 Dose: 4 mg Pantoprazole Sodium (Protonix Susp) 40 mg PEG DAILY [facility] Last Admin: 01/12/18 12:33 Dose: 40 mg Petrolatum (Desitin Maximum Strength Topical 40% Oint) 1 applic TOP DAILY [facility] Last Admin: 01/12/18 19:04 Dose: 1 applic Rivaroxaban (Xarelto) 20 mg PO QPM [facility] PRN Reason: Protocol Last Admin: 01/12/18 23:00 Dose: 20 mg Sertraline HCl (Zoloft) 25 mg PO HS [facility] Last Admin: 01/12/18 23:00 Dose: 25 mg - Labs Labs: 01/12/18 07:53 01/12/18 07:53 Assessment and Plan - Assessment and Plan (Free Text) Plan: Patient was personally seen and examined by me in rounds with residents. Available labs and diagnostic data reviewed. Case, Patient's condition and management plan discussed with residents in rounds. Agree with resident's progress note. Plan: As ordered.
[2018-01-11] MEDS: DESTIN OINT TOP SCH (09:31)
[2018-01-11] MEDS: levETIRAcetam 100 mg/ml (5ml) Oral Syringe PEG SCH ×2 (09:31→21:07)
[2018-01-11] MEDS: Magnesium Oxide 400 mg Tab UD PEG SCH ×2 (09:38→17:30)
[2018-01-11] MEDS: Proshield Plus GEL TOP SCH ×3 (09:39→17:30)
[2018-01-11] MEDS: Pantoprazole 40 mg Susp UD PEG SCH (09:40)
--- NOTE | 2018-01-11 11:39 | CP.PCM.PN ---
Subjective - Date & Time of Evaluation Date of Evaluation: 01/11/18 Time of Evaluation: 11:39 - Subjective Subjective: ID Note- Pt. seen and examined today. remains afebrile. denies any complaints. in good spirits. her is at her bedside. as per pt's they were told she can't go to [facility] or home for completion of her IV abx therapy due to insurance non-coverage. Objective - Vital Signs/Intake and Output Vital Signs (last 24 hours): Temp Pulse Resp BP Pulse Ox 97.7 F 77 20 111/76 99 01/11/18 08:00 01/11/18 09:31 01/11/18 08:00 01/11/18 09:31 01/11/18 08:00 - Medications Medications: Current Medications Acetaminophen (Tylenol 325mg Tab) 650 mg PEG Q6 PRN PRN Reason: Pain, Mild (1-3) Last Admin: 01/09/18 23:24 Dose: 650 mg Acetaminophen/Codeine Phosphate (Tylenol/Codeine 300 Mg/30 Mg) 1 tab PEG Q8 PRN PRN Reason: Pain, moderate (4-7) Last Admin: 01/11/18 00:29 Dose: 1 tab Al Hydrox/Mg Hydrox/Simethicone (Maalox Plus 30 Ml) 30 ml PEG Q8 PRN PRN Reason: Indigestion / Heartburn Last Admin: 01/07/18 18:08 Dose: 30 ml Albuterol/Ipratropium (Duoneb 3 Mg/0.5 Mg (3 Ml) Ud) 3 ml INH RTID [facility] Last Admin: 01/11/18 07:46 Dose: 3 ml Clotrimazole (Lotrimin 1% Cream) 1 applic TOP BID [facility] Last Admin: 01/11/18 09:37 Dose: 1 applic Dimethicone (Proshield Plus Skin Protectant) 1 applic TOP Q8 [facility] Last Admin: 01/11/18 09:40 Dose: 1 applic Docusate Sodium (Colace Liquid) 100 mg PEG DAILY [facility] Last Admin: 01/11/18 09:29 Dose: 100 mg Gabapentin (Neurontin) 100 mg PEG Q8 [facility] Last Admin: 01/11/18 09:39 Dose: 100 mg Vancomycin HCl 1 gm/ Sodium (Chloride) 250 mls @ 166.667 mls/hr IVPB Q12 [facility] PRN Reason: Protocol Last Admin: 01/11/18 09:41 Dose: 166.667 mls/hr Levetiracetam (Keppra) 500 mg PEG Q12 [facility] Last Admin: 01/11/18 09:31 Dose: 500 mg Magnesium Oxide (Mag-Ox) 800 mg PEG BID [facility] Last Admin: 01/11/18 09:38 Dose: 800 mg Metoprolol Tartrate (Lopressor) 25 mg PEG Q12 [facility] Last Admin: 01/11/18 09:31 Dose: 25 mg Nystatin (Mycostatin Cream) 1 applic TOP BID [facility] Last Admin: 01/11/18 09:39 Dose: 1 applic Pantoprazole Sodium (Protonix Susp) 40 mg PEG DAILY [facility] Last Admin: 01/11/18 09:40 Dose: 40 mg Petrolatum (Desitin Maximum Strength Topical 40% Oint) 1 applic TOP DAILY [facility] Last Admin: 01/11/18 09:31 Dose: 1 applic Rivaroxaban (Xarelto) 20 mg PEG QPM [facility] PRN Reason: Protocol Last Admin: 01/10/18 19:01 Dose: 20 mg Sertraline HCl (Zoloft) 25 mg PO HS [facility] Last Admin: 01/10/18 22:07 Dose: 25 mg - Labs Labs: - Additional Findings Additional findings: A/P- 52 year old female with extensive medical history including cervical CA s/p hysterectomy and chemo, sepsis and bacteremia nad MDR UTI in 03/2017, CVA s/p intubation , later trached, s/p peg and has indwelling castillo cath admitted with cloudy urine and low garde temp. afebrile past few days. leukocytosis trending down + UA cxr- negative as per report. blood cx- e.fecalis x 1 sens to vanco, cipro and linezolid but linezolid AMEENA is 2 urine cx-01/05/2018 proteus but was 10-50,000 repeat urine cx- 01/06/2018- negative repeat blood cx- neg x 2 TTE- no veg as per report but Aortic valve not well visualized as per report. PLan- has completed 4 days of IV meropenem . repeat urine cx- negative. can resume IV vanco for e.fecalis bacteremia day #5 today since yesterday was receiving oral cipro sicne pt. had no IV access yesterday. keep trough <20. will need total of 14 pineda of IV vancomycin for e.fecalis bactermia. hence 7 more days. check blood cx post completion of iv abx as outpatient. keep vanco trough between 15-20. monitor creatinine and hearing while on vancomycin. 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 All above d/w patient and her and they verbalize full understanding of all above and agree with above plan of care. Assessment and Plan (1) Leukocytosis Status: Acute (2) UTI (urinary tract infection) Status: Acute (3) CVA (cerebral vascular accident) Status: Acute (4) S/P percutaneous endoscopic gastrostomy (PEG) tube placement Status: Acute (5) Status post tracheostomy Status: Acute
[2018-01-11 14:00] LABS: BLOOD UREA NITROGEN 11 mg/dl (7-17); CALCIUM 10.1 mg/dL (8.4-10.2); GFR NON-AFRICAN AMERICAN > 60
[2018-01-11] MEDS ORDERED: Potassium Chloride 20 mEq/15 ml LIQ UD PO STA (14:40)
[2018-01-12] MEDS: Proshield Plus GEL TOP SCH ×3 (01:00→19:04)
[2018-01-12] MEDS: Albuterol-Ipratrop 3 mg / 0.5 (3 ml) UD INH SCH ×3 (07:22→19:53)
--- NOTE | 2018-01-12 07:54 | CP.PCM.PN ---
<Silverio Rosario - Last Filed: 01/12/18 20:03> Subjective - Date & Time of Evaluation Date of Evaluation: 01/12/18 Time of Evaluation: 07:54 - Subjective Subjective: 52 y/o F reports feeling OK. Pt afebrile with No acute events overnight. Pt tolerating PO with No complaints at this moment. Objective - Vital Signs/Intake and Output Vital Signs (last 24 hours): Temp Pulse Resp BP Pulse Ox 98.5 F 82 19 94/66 L 99 01/12/18 00:20 01/12/18 00:20 01/12/18 00:20 01/12/18 00:20 01/12/18 00:20 Intake and Output: 01/12/18 01/12/18 06:59 18:59 Output Total 500 Balance -500 - Medications Medications: Current Medications Acetaminophen (Tylenol 325mg Tab) 650 mg PEG Q6 PRN PRN Reason: Pain, Mild (1-3) Last Admin: 01/09/18 23:24 Dose: 650 mg Acetaminophen/Codeine Phosphate (Tylenol/Codeine 300 Mg/30 Mg) 1 tab PEG Q8 PRN PRN Reason: Pain, moderate (4-7) Last Admin: 01/11/18 00:29 Dose: 1 tab Al Hydrox/Mg Hydrox/Simethicone (Maalox Plus 30 Ml) 30 ml PEG Q8 PRN PRN Reason: Indigestion / Heartburn Last Admin: 01/07/18 18:08 Dose: 30 ml Albuterol/Ipratropium (Duoneb 3 Mg/0.5 Mg (3 Ml) Ud) 3 ml INH RTID [facility] Last Admin: 01/12/18 07:22 Dose: 3 ml Clotrimazole (Lotrimin 1% Cream) 1 applic TOP BID [facility] Last Admin: 01/11/18 17:30 Dose: 1 applic Dimethicone (Proshield Plus Skin Protectant) 1 applic TOP Q8 [facility] Last Admin: 01/12/18 01:00 Dose: 1 applic Docusate Sodium (Colace Liquid) 100 mg PEG DAILY [facility] Last Admin: 01/11/18 09:29 Dose: 100 mg Gabapentin (Neurontin) 100 mg PEG Q8 [facility] Last Admin: 01/12/18 01:00 Dose: 100 mg Vancomycin HCl 1 gm/ Sodium (Chloride) 250 mls @ 166.667 mls/hr IVPB Q12 [facility] PRN Reason: Protocol Last Admin: 01/11/18 22:11 Dose: 166.667 mls/hr Levetiracetam (Keppra) 500 mg PEG Q12 [facility] Last Admin: 01/11/18 21:07 Dose: 500 mg Magnesium Oxide (Mag-Ox) 800 mg PEG BID [facility] Last Admin: 01/11/18 17:30 Dose: 800 mg Metoprolol Tartrate (Lopressor) 25 mg PEG Q12 [facility] Last Admin: 01/11/18 21:08 Dose: 25 mg Nystatin (Mycostatin Cream) 1 applic TOP BID [facility] Last Admin: 01/11/18 17:30 Dose: 1 applic Ondansetron HCl (Zofran Inj) 4 mg IVP Q6 PRN PRN Reason: Nausea/Vomiting Last Admin: 01/11/18 14:08 Dose: 4 mg Pantoprazole Sodium (Protonix Susp) 40 mg PEG DAILY [facility] Last Admin: 01/11/18 09:40 Dose: 40 mg Petrolatum (Desitin Maximum Strength Topical 40% Oint) 1 applic TOP DAILY [facility] Last Admin: 01/11/18 09:31 Dose: 1 applic Sertraline HCl (Zoloft) 25 mg PO HS [facility] Last Admin: 01/11/18 21:09 Dose: 25 mg - Labs Labs: 01/10/18 04:20 01/11/18 13:37 - Constitutional Appears: No Acute Distress - Head Exam Head Exam: NORMAL INSPECTION - Eye Exam Eye Exam: EOMI, Normal appearance - ENT Exam ENT Exam: Mucous Membranes Moist - Neck Exam Neck Exam: Full ROM, Normal Inspection - Respiratory Exam Respiratory Exam: NORMAL BREATHING PATTERN. absent: Rhonchi, Wheezes - Cardiovascular Exam Cardiovascular Exam: +S1, +S2 - GI/Abdominal Exam GI & Abdominal Exam: Soft. absent: Guarding, Rigid, Tenderness - Extremities Exam Extremities Exam: absent: Calf Tenderness - Neurological Exam Neurological Exam: Alert, Awake, Oriented x3 Assessment and Plan - Assessment and Plan (Free Text) Assessment: 52 yo F with a PMHx of Cervical cancer and CVA admitted due to sepsis due to castillo catherer-UTI. Initial blood culture grew E. faecalis, and urine culture P. mirabilis. Currently on IV antibiotic via PICC. - ID consulted; recs appreciated; will need 14 total days (9 more days) via PICC line - Echocardiogram ordered as aortic valve not visualized on previous one. - On Vancomycin day 5. - on xarelto - continue with rest of plan as ordered <Jeferson Martel - Last Filed: 01/13/18 08:59> Objective - Vital Signs/Intake and Output Vital Signs (last 24 hours): Temp Pulse Resp BP Pulse Ox 97.2 F L 78 20 109/68 100 01/13/18 08:16 01/13/18 08:42 01/13/18 08:16 01/13/18 08:42 01/13/18 08:16 Intake and Output: 01/13/18 01/13/18 06:59 18:59 Intake Total 950 Output Total 1900 Balance -950 - Medications Medications: Current Medications Acetaminophen (Tylenol 325mg Tab) 650 mg PEG Q6 PRN PRN Reason: Pain, Mild (1-3) Last Admin: 01/09/18 23:24 Dose: 650 mg Acetaminophen/Codeine Phosphate (Tylenol/Codeine 300 Mg/30 Mg) 1 tab PEG Q8 PRN PRN Reason: Pain, moderate (4-7) Last Admin: 01/13/18 05:38 Dose: 1 tab Al Hydrox/Mg Hydrox/Simethicone (Maalox Plus 30 Ml) 30 ml PEG Q8 PRN PRN Reason: Indigestion / Heartburn Last Admin: 01/07/18 18:08 Dose: 30 ml Albuterol/Ipratropium (Duoneb 3 Mg/0.5 Mg (3 Ml) Ud) 3 ml INH RTID [facility] Last Admin: 01/13/18 07:47 Dose: 3 ml Clotrimazole (Lotrimin 1% Cream) 1 applic TOP BID [facility] Last Admin: 01/13/18 08:41 Dose: 1 applic Dimethicone (Proshield Plus Skin Protectant) 1 applic TOP Q8 [facility] Last Admin: 01/13/18 08:42 Dose: 1 applic Docusate Sodium (Colace Liquid) 100 mg PEG DAILY [facility] Last Admin: 01/13/18 08:45 Dose: Not Given Gabapentin (Neurontin) 100 mg PEG Q8 [facility] Last Admin: 01/13/18 08:41 Dose: 100 mg Vancomycin HCl 1 gm/ Sodium (Chloride) 250 mls @ 166.667 mls/hr IVPB Q12 [facility] PRN Reason: Protocol Last Admin: 01/12/18 23:06 Dose: Not Given Levetiracetam (Keppra) 500 mg PEG Q12 [facility] Last Admin: 01/13/18 08:41 Dose: 500 mg Magnesium Oxide (Mag-Ox) 800 mg PEG BID [facility] Last Admin: 01/13/18 08:41 Dose: 800 mg Metoprolol Tartrate (Lopressor) 25 mg PEG Q12 [facility] Last Admin: 01/13/18 08:42 Dose: 25 mg Nystatin (Mycostatin Cream) 1 applic TOP BID [facility] Last Admin: 01/13/18 08:42 Dose: 1 applic Ondansetron HCl (Zofran Inj) 4 mg IVP Q6 PRN PRN Reason: Nausea/Vomiting Last Admin: 01/11/18 14:08 Dose: 4 mg Pantoprazole Sodium (Protonix Susp) 40 mg PEG DAILY [facility] Last Admin: 01/13/18 08:41 Dose: 40 mg Petrolatum (Desitin Maximum Strength Topical 40% Oint) 1 applic TOP DAILY [facility] Last Admin: 01/13/18 08:41 Dose: 1 applic Rivaroxaban (Xarelto) 20 mg PO QPM [facility] PRN Reason: Protocol Last Admin: 01/12/18 23:00 Dose: 20 mg Sertraline HCl (Zoloft) 25 mg PO HS [facility] Last Admin: 01/12/18 23:00 Dose: 25 mg - Labs Labs: 01/13/18 06:20 01/13/18 06:20 Assessment and Plan - Assessment and Plan (Free Text) Assessment: Patient was personally seen and examined by me in rounds with residents. Available labs and diagnostic data reviewed. Case, Patient's condition and management plan discussed with residents in rounds. Agree with resident's progress note. Plan: As ordered.
[2018-01-12 08:09] LABS: MEAN CELL VOLUME 88.1 fl (81.0-99.0); RBC 3.34 Mil/uL (3.80-5.20); RED CELL DISTRIBUTION WIDTH 17.4 % (11.5-14.5); WHITE BLOOD COUNT 9.7 K/uL (4.8-10.8)
[2018-01-12 08:24] LABS: BLOOD UREA NITROGEN 11 mg/dl (7-17); CALCIUM 10.4 mg/dL (8.4-10.2); GFR NON-AFRICAN AMERICAN > 60
[2018-01-12] MEDS: levETIRAcetam 100 mg/ml (5ml) Oral Syringe PEG SCH ×2 (12:29→23:01)
[2018-01-12] MEDS: Magnesium Oxide 400 mg Tab UD PEG SCH ×2 (12:31→19:05)
[2018-01-12] MEDS: Pantoprazole 40 mg Susp UD PEG SCH (12:33)
[2018-01-12] MEDS: DESTIN OINT TOP SCH (19:04)
[2018-01-12] MEDS: Acetaminophen-Codeine 300/30 mg Tab PEG PRN (19:19)
[2018-01-13] MEDS: Proshield Plus GEL TOP SCH ×3 (02:03→16:22)
[2018-01-13] MEDS: Acetaminophen-Codeine 300/30 mg Tab PEG PRN ×2 (05:38→17:38)
[2018-01-13 06:56] LABS: HEMOGLOBIN 10.4 g/dL (12.0-16.0); MEAN CORPUSCULAR HEMOGLOBIN 29.6 pg (27.0-31.0); MEAN CORPUSCULAR HGB CONC 33.6 g/dL (33.0-37.0); RBC 3.52 Mil/uL (3.80-5.20); RED CELL DISTRIBUTION WIDTH 17.8 % (11.5-14.5); WHITE BLOOD COUNT 10.6 K/uL (4.8-10.8)
[2018-01-13 07:03] LABS: BLOOD UREA NITROGEN 9 mg/dl (7-17); CALCIUM 10.6 mg/dL (8.4-10.2); GFR NON-AFRICAN AMERICAN > 60
[2018-01-13] MEDS: Albuterol-Ipratrop 3 mg / 0.5 (3 ml) UD INH SCH ×3 (07:47→19:10)
--- NOTE | 2018-01-13 08:15 | CP.PCM.PN ---
<Silverio Rosaroi - Last Filed: 01/13/18 16:25> Subjective - Date & Time of Evaluation Date of Evaluation: 01/13/18 Time of Evaluation: 07:05 - Subjective Subjective: 52 y/o F evaluated and examined by bedside with Dr Martel. Pt with tracheostomy collar and PEG tube, communicates by head movements. Pt reports feeling OK, wants to go home. Pt afebrile with NO acute events overnight. Pt denies chills, chest pain, SOB, abdominal pain, N/V. -Upon reviewing labs: Jigar mejia 43.8-high. Objective - Vital Signs/Intake and Output Vital Signs (last 24 hours): Temp Pulse Resp BP Pulse Ox 98.8 F 82 20 107/70 99 01/12/18 16:10 01/12/18 22:55 01/12/18 16:10 01/12/18 22:55 01/12/18 16:10 Intake and Output: 01/13/18 01/13/18 06:59 18:59 Intake Total 950 Output Total 1900 Balance -950 - Medications Medications: Current Medications Acetaminophen (Tylenol 325mg Tab) 650 mg PEG Q6 PRN PRN Reason: Pain, Mild (1-3) Last Admin: 01/09/18 23:24 Dose: 650 mg Acetaminophen/Codeine Phosphate (Tylenol/Codeine 300 Mg/30 Mg) 1 tab PEG Q8 PRN PRN Reason: Pain, moderate (4-7) Last Admin: 01/13/18 05:38 Dose: 1 tab Al Hydrox/Mg Hydrox/Simethicone (Maalox Plus 30 Ml) 30 ml PEG Q8 PRN PRN Reason: Indigestion / Heartburn Last Admin: 01/07/18 18:08 Dose: 30 ml Albuterol/Ipratropium (Duoneb 3 Mg/0.5 Mg (3 Ml) Ud) 3 ml INH RTID [facility] Last Admin: 01/13/18 07:47 Dose: 3 ml Clotrimazole (Lotrimin 1% Cream) 1 applic TOP BID [facility] Last Admin: 01/12/18 19:04 Dose: 1 applic Dimethicone (Proshield Plus Skin Protectant) 1 applic TOP Q8 [facility] Last Admin: 01/13/18 02:03 Dose: Not Given Docusate Sodium (Colace Liquid) 100 mg PEG DAILY [facility] Last Admin: 01/12/18 12:06 Dose: 100 mg Gabapentin (Neurontin) 100 mg PEG Q8 [facility] Last Admin: 01/13/18 02:02 Dose: Not Given Vancomycin HCl 1 gm/ Sodium (Chloride) 250 mls @ 166.667 mls/hr IVPB Q12 [facility] PRN Reason: Protocol Last Admin: 01/12/18 23:06 Dose: Not Given Levetiracetam (Keppra) 500 mg PEG Q12 [facility] Last Admin: 01/12/18 23:01 Dose: 500 mg Magnesium Oxide (Mag-Ox) 800 mg PEG BID [facility] Last Admin: 01/12/18 19:05 Dose: 800 mg Metoprolol Tartrate (Lopressor) 25 mg PEG Q12 [facility] Last Admin: 01/12/18 22:55 Dose: Not Given Nystatin (Mycostatin Cream) 1 applic TOP BID [facility] Last Admin: 01/12/18 19:04 Dose: 1 applic Ondansetron HCl (Zofran Inj) 4 mg IVP Q6 PRN PRN Reason: Nausea/Vomiting Last Admin: 01/11/18 14:08 Dose: 4 mg Pantoprazole Sodium (Protonix Susp) 40 mg PEG DAILY [facility] Last Admin: 01/12/18 12:33 Dose: 40 mg Petrolatum (Desitin Maximum Strength Topical 40% Oint) 1 applic TOP DAILY [facility] Last Admin: 01/12/18 19:04 Dose: 1 applic Rivaroxaban (Xarelto) 20 mg PO QPM [facility] PRN Reason: Protocol Last Admin: 01/12/18 23:00 Dose: 20 mg Sertraline HCl (Zoloft) 25 mg PO HS [facility] Last Admin: 01/12/18 23:00 Dose: 25 mg - Labs Labs: 01/13/18 06:20 01/13/18 06:20 - Constitutional Appears: No Acute Distress, Chronically Ill - Head Exam Head Exam: NORMAL INSPECTION - Eye Exam Eye Exam: EOMI, Normal appearance - Neck Exam Neck Exam: Full ROM, Normal Inspection - Respiratory Exam Respiratory Exam: NORMAL BREATHING PATTERN. absent: Rhonchi, Wheezes - Cardiovascular Exam Cardiovascular Exam: +S1, +S2 - GI/Abdominal Exam GI & Abdominal Exam: Soft. absent: Guarding, Tenderness - Neurological Exam Neurological Exam: Alert, Awake, Oriented x3 Assessment and Plan - Assessment and Plan (Free Text) Assessment: 52 yo F with a PMHx of Cervical cancer and CVA admitted due to sepsis due to castillo catherer-UTI. Initial blood culture grew E. faecalis, and urine culture P. mirabilis. Currently on IV antibiotic via PICC. --Vancomycin on hold due to vancomycin through being elevated. --As per ID, IV Vancomycin x 14 days in total, hence 5 more days. --Echocardiogram ordered as aortic valve not visualized on previous one. --on xarelto --continue with rest of plan as ordered --Pressure Ulcer, on midline sacral and bilateral gluteal areas, stage 2. (3x3.5 erosion irregular in shape On lateral area of left gluteus) <Jeferson Martel K - Last Filed: 01/14/18 17:59> Objective - Vital Signs/Intake and Output Vital Signs (last 24 hours): Temp Pulse Resp BP Pulse Ox 98.6 F 100 H 19 91/60 L 98 01/14/18 16:27 01/14/18 16:27 01/14/18 16:27 01/14/18 16:27 01/14/18 16:27 Intake and Output: 01/14/18 01/14/18 06:59 18:59 Intake Total 650 Output Total 750 700 Balance -750 -50 - Medications Medications: Current Medications Acetaminophen (Tylenol 325mg Tab) 650 mg PEG Q6 PRN PRN Reason: Pain, Mild (1-3) Last Admin: 01/09/18 23:24 Dose: 650 mg Acetaminophen (Tylenol 650mg/20.3ml Solution Ud) 650 mg PEG Q4 PRN PRN Reason: Fever >100.4 F Last Admin: 01/13/18 16:44 Dose: 650 mg Acetaminophen/Codeine Phosphate (Tylenol/Codeine 300 Mg/30 Mg) 1 tab PEG Q8 PRN PRN Reason: Pain, moderate (4-7) Last Admin: 01/14/18 11:09 Dose: 1 tab Al Hydrox/Mg Hydrox/Simethicone (Maalox Plus 30 Ml) 30 ml PEG Q8 PRN PRN Reason: Indigestion / Heartburn Last Admin: 01/07/18 18:08 Dose: 30 ml Albuterol/Ipratropium (Duoneb 3 Mg/0.5 Mg (3 Ml) Ud) 3 ml INH RTID [facility] Last Admin: 01/14/18 13:42 Dose: 3 ml Bismuth Subsalicylate (Pepto-Bismol) 524 mg PEG Q4 PRN PRN Reason: Diarrhea Last Admin: 01/14/18 17:14 Dose: 524 mg Dimethicone (Proshield Plus Skin Protectant) 1 applic TOP Q8 [facility] Last Admin: 01/14/18 17:12 Dose: 1 applic Gabapentin (Neurontin) 100 mg PEG Q8 [facility] Last Admin: 01/14/18 17:13 Dose: 100 mg Vancomycin HCl 1 gm/ Sodium (Chloride) 250 mls @ 166.667 mls/hr IVPB Q12 [facility] PRN Reason: Protocol Last Admin: 01/12/18 23:06 Dose: Not Given Levetiracetam (Keppra) 500 mg PEG Q12 [facility] Last Admin: 01/14/18 08:55 Dose: 500 mg Magnesium Oxide (Mag-Ox) 800 mg PEG BID [facility] Last Admin: 01/14/18 17:13 Dose: 800 mg Metoprolol Tartrate (Lopressor) 25 mg PEG Q12 [facility] Last Admin: 01/14/18 08:07 Dose: Not Given Ondansetron HCl (Zofran Inj) 4 mg IVP Q6 PRN PRN Reason: Nausea/Vomiting Last Admin: 01/11/18 14:08 Dose: 4 mg Pantoprazole Sodium (Protonix Susp) 40 mg PEG DAILY [facility] Last Admin: 01/14/18 08:56 Dose: 40 mg Petrolatum (Desitin Maximum Strength Topical 40% Oint) 1 applic TOP DAILY [facility] Last Admin: 01/14/18 10:44 Dose: 1 applic Rivaroxaban (Xarelto) 20 mg PO QPM [facility] PRN Reason: Protocol Last Admin: 01/14/18 17:14 Dose: 20 mg Sertraline HCl (Zoloft) 25 mg PO HS [facility] Last Admin: 01/13/18 21:37 Dose: 25 mg - Labs Labs: 01/13/18 06:20 01/13/18 06:20 Assessment and Plan - Assessment and Plan (Free Text) Assessment: Patient was personally seen and examined by me in rounds with residents. Available labs and diagnostic data reviewed. Case, Patient's condition and management plan discussed with residents in rounds. Agree with resident's progress note. Plan: As ordered.
[2018-01-13] MEDS: Magnesium Oxide 400 mg Tab UD PEG SCH ×2 (08:41→16:22)
[2018-01-13] MEDS: levETIRAcetam 100 mg/ml (5ml) Oral Syringe PEG SCH ×2 (08:41→21:37)
[2018-01-13] MEDS: Pantoprazole 40 mg Susp UD PEG SCH (08:41)
[2018-01-13] MEDS ORDERED: Potassium Chloride 20 mEq/15 ml LIQ UD GT ONE (08:41)
[2018-01-13] MEDS: DESTIN OINT TOP SCH (08:41)
[2018-01-13] MEDS ORDERED: Acetaminophen 650mg/20.3ml solution UD PEG PRN (16:18)
[2018-01-13] MEDS ORDERED: Chlorhexidine Gluconate 1 APPL/PKT TP ONE (17:19)
[2018-01-14] MEDS: Proshield Plus GEL TOP SCH ×3 (00:48→17:12)
[2018-01-14] MEDS: Albuterol-Ipratrop 3 mg / 0.5 (3 ml) UD INH SCH ×3 (07:05→19:00)
[2018-01-14] MEDS: Magnesium Oxide 400 mg Tab UD PEG SCH ×2 (08:55→17:13)
[2018-01-14] MEDS: levETIRAcetam 100 mg/ml (5ml) Oral Syringe PEG SCH ×2 (08:55→21:02)
[2018-01-14] MEDS: Pantoprazole 40 mg Susp UD PEG SCH (08:56)
[2018-01-14] MEDS: DESTIN OINT TOP SCH (10:44)
[2018-01-14] MEDS: Acetaminophen-Codeine 300/30 mg Tab PEG PRN (11:09)
[2018-01-14] MEDS: Bismuth Subsalicylate 262 mg/15 ml Sus (240 ml) PEG PRN ×2 (11:10→17:14)
[2018-01-15] MEDS: Proshield Plus GEL TOP SCH ×3 (01:10→17:19)
[2018-01-15 07:05] LABS: MEAN CELL VOLUME 88.8 fl (81.0-99.0); MEAN CORPUSCULAR HGB CONC 33.7 g/dL (33.0-37.0); RBC 3.35 Mil/uL (3.80-5.20); WHITE BLOOD COUNT 10.5 K/uL (4.8-10.8)
[2018-01-15 07:25] LABS: ALB/GLOB RATIO 0.8 (1.0-2.1); ALT/SGPT 18 U/L (9-52); AST/SGOT 28 U/L (14-36); BLOOD UREA NITROGEN 13 mg/dl (7-17); CALCIUM 10.6 mg/dL (8.4-10.2); GFR NON-AFRICAN AMERICAN > 60
[2018-01-15] MEDS: Albuterol-Ipratrop 3 mg / 0.5 (3 ml) UD INH SCH ×3 (07:55→19:06)
--- NOTE | 2018-01-15 08:49 | PQF ---
PROVIDER RESPONSE TEXT: Present on admission Sacral area and bilateral buttocks redness, stage 1. 1 cm x .5 cm stage 2 open area to the sacral area, 2 cm x 1 cm stage 2 open area noted to the rt. buttock , 1 cm x . 5 cm stage 2 open area noted to the l butock Excoriation around anal area REVIEWER QUERY TEXT: Pressure Ulcer Type Pressure ulcer is documented in the Medical Record. Please specify the location, and stage and later ality of pressure ulcer(s): Stage of each pressure ulcer (National Pressure Ulcer Advisory Panel definitions): -- Stage I: Intact skin with non-blanchable redness of a localized area -- Stage II: Partial thickness skin loss involving dermis with a shallow open ulcer or an open serum -filled blister -- Stage III: Full thickness skin loss involving damage or necrosis of subcutaneous tissue -- Stage IV: Full thickness skin loss with exposed bone, tendon or muscle -- Unstageable: Full thickness tissue loss in which the base of the ulcer is covered by slough and/o r eschar in the wound bed H and P: Any Indicators Present on Admission: Yes Decubitus Ulcer Present: Yes (sacrum, perineum, mod erate moisture associated skin breakdown) 01/04: Wound RN: Sacrum and perineum has moderated MASD with denuded areas, the largest is on her left buttock, irregular in shape and measures 3 cm x 3.5 m. There are multiple areas of healed wounds and severe erythema. 01/10 Wound RN: Continues with extensive MASD and denuded skin to sacral and to bilateral buttocks reg ions R/T incontinence. Skin very reddened with diffuse areas of partial thickness skin breakdown The patient's Clinical Indicators include: XX Query created by: Radha Berumen on 01/12/2018 10:53 AM Electronically signed by: Jeferson Martel 01/15/2018 8:46 AM
[2018-01-15] MEDS: DESTIN OINT TOP SCH (09:19)
[2018-01-15] MEDS: levETIRAcetam 100 mg/ml (5ml) Oral Syringe PEG SCH ×2 (09:20→21:21)
[2018-01-15] MEDS: Magnesium Oxide 400 mg Tab UD PEG SCH ×2 (09:20→17:18)
[2018-01-15] MEDS: Pantoprazole 40 mg Susp UD PEG SCH (09:20)
[2018-01-15] MEDS: Bismuth Subsalicylate 262 mg/15 ml Sus (240 ml) PEG PRN (13:15)
--- NOTE | 2018-01-15 13:16 | PN ---
Copied To: Jeferson Martel MD Attending MD: Jeferson Martel MD DATE: 01/15/2018 SUBJECTIVE: The patient seen and examined. Interim events noted. The patient remains in regular medical floor, on antibiotics. The patient feels okay, . The patient reports episodes of diarrhea yesterday. No abdominal pain. No vomiting. PHYSICAL EXAMINATION GENERAL: The patient is in no acute distress. VITAL SIGNS: Stable. HEART: S1 and S2. Normal and regular. LUNGS: Good bilateral air exchange. ABDOMEN: Soft, nontender. No organomegaly. No fluids. Bowel sounds are pleasant, normal. No sign of acute abdomen. No guarding. No rigidity. EXTREMITIES: No edema. No calf swelling. No tenderness. No acute ischemia. 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 DIAGNOSTIC DATA: Available diagnostic data reviewed. study is negative. ASSESSMENT AND PLAN: Overall, the patient is improving and is medically stable. Blood pressure is on lower side. We will discontinue metoprolol. Plan as ordered. Jeferson Martel MD
[2018-01-16] MEDS: Proshield Plus GEL TOP SCH ×3 (00:57→18:45)
[2018-01-16 06:29] LABS: ALB/GLOB RATIO 0.8 (1.0-2.1); ALT/SGPT 20 U/L (9-52); AST/SGOT 18 U/L (14-36); BLOOD UREA NITROGEN 14 mg/dl (7-17); CALCIUM 10.1 mg/dL (8.4-10.2); GFR NON-AFRICAN AMERICAN > 60
[2018-01-16 06:36] LABS: HEMOGLOBIN 9.7 g/dL (12.0-16.0); MEAN CELL VOLUME 88.8 fl (81.0-99.0); MEAN CORPUSCULAR HEMOGLOBIN 29.7 pg (27.0-31.0); MEAN CORPUSCULAR HGB CONC 33.5 g/dL (33.0-37.0); RBC 3.25 Mil/uL (3.80-5.20); RED CELL DISTRIBUTION WIDTH 17.1 % (11.5-14.5)
[2018-01-16] MEDS: Albuterol-Ipratrop 3 mg / 0.5 (3 ml) UD INH SCH ×3 (07:33→19:22)
[2018-01-16] MEDS: Magnesium Oxide 400 mg Tab UD PEG SCH ×2 (10:45→17:21)
[2018-01-16] MEDS: levETIRAcetam 100 mg/ml (5ml) Oral Syringe PEG SCH ×2 (10:45→21:23)
[2018-01-16] MEDS: Pantoprazole 40 mg Susp UD PEG SCH (10:46)
--- NOTE | 2018-01-16 13:00 | PN ---
Copied To: Jeferson Martel MD Attending MD: Jeferson Martel MD DATE: 01/16/2018 SUBJECTIVE: The patient seen and examined. Interim events noted. The patient remains on IV antibiotic with trach collar and PEG tube. Awake, responsive. Denies any specific complaint. No chest pain. No shortness of breath. PHYSICAL EXAMINATION: GENERAL: The patient is in no acute distress. VITAL SIGNS: Stable. HEART: S1 and S2. Normal and regular. LUNGS: Good bilateral air exchange. ABDOMEN: Soft and nontender. PEG tube is in good position and functioning. EXTREMITIES: No calf swelling. No tenderness. No acute ischemia. 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 DIAGNOSTIC DATA: Available diagnostic data reviewed. ASSESSMENT AND PLAN: Overall, the patient's general medical condition is stable. Plan as ordered. Jeferson Martel MD
[2018-01-16] MEDS ORDERED: Potassium Chloride 20 mEq/15 ml LIQ UD PO ONE (13:26)
--- NOTE | 2018-01-16 14:22 | CP.PCM.PN ---
Subjective - Date & Time of Evaluation Date of Evaluation: 01/16/18 Time of Evaluation: 13:00 - Subjective Subjective: ID Note- Pt. seen and examined today. no fevers. denies any abd. pain. had some diarrhea as per nurse the other day but ahs resolved. vanco was held on tuesday and tuesday due to high trough level, was resumed yesterday at a lower dose since the trogh had decreasd to acceptable level of < 20. Objective - Vital Signs/Intake and Output Vital Signs (last 24 hours): Temp Pulse Resp BP Pulse Ox 98.3 F 99 H 19 97/66 L 96 01/16/18 08:21 01/16/18 08:21 01/16/18 08:21 01/16/18 08:21 01/16/18 08:21 Intake and Output: 01/16/18 01/16/18 06:59 18:59 Intake Total 450 Output Total 750 Balance -300 - Medications Medications: Current Medications Acetaminophen (Tylenol 325mg Tab) 650 mg PEG Q6 PRN PRN Reason: Pain, Mild (1-3) Last Admin: 01/09/18 23:24 Dose: 650 mg Acetaminophen (Tylenol 650mg/20.3ml Solution Ud) 650 mg PEG Q4 PRN PRN Reason: Fever >100.4 F Last Admin: 01/13/18 16:44 Dose: 650 mg Acetaminophen/Codeine Phosphate (Tylenol/Codeine 300 Mg/30 Mg) 1 tab PEG Q8 PRN PRN Reason: Pain, moderate (4-7) Last Admin: 01/14/18 11:09 Dose: 1 tab Al Hydrox/Mg Hydrox/Simethicone (Maalox Plus 30 Ml) 30 ml PEG Q8 PRN PRN Reason: Indigestion / Heartburn Last Admin: 01/07/18 18:08 Dose: 30 ml Albuterol/Ipratropium (Duoneb 3 Mg/0.5 Mg (3 Ml) Ud) 3 ml INH RTID [facility] Last Admin: 01/16/18 13:46 Dose: 3 ml Bismuth Subsalicylate (Pepto-Bismol) 524 mg PEG Q4 PRN PRN Reason: Diarrhea Last Admin: 01/15/18 13:15 Dose: 524 mg Dimethicone (Proshield Plus Skin Protectant) 1 applic TOP Q8 [facility] Last Admin: 01/16/18 10:46 Dose: 1 applic Gabapentin (Neurontin) 100 mg PEG Q8 [facility] Last Admin: 01/16/18 10:46 Dose: 100 mg Vancomycin HCl 750 mg/ Sodium (Chloride) 250 mls @ 166.667 mls/hr IVPB Q12@0100 ,1300 [facility] PRN Reason: Protocol Last Admin: 01/16/18 00:58 Dose: 166.667 mls/hr Levetiracetam (Keppra) 500 mg PEG Q12 [facility] Last Admin: 01/16/18 10:45 Dose: 500 mg Magnesium Oxide (Mag-Ox) 800 mg PEG BID [facility] Last Admin: 01/16/18 10:45 Dose: 800 mg Ondansetron HCl (Zofran Inj) 4 mg IVP Q6 PRN PRN Reason: Nausea/Vomiting Last Admin: 01/15/18 17:59 Dose: 4 mg Pantoprazole Sodium (Protonix Susp) 40 mg PEG DAILY [facility] Last Admin: 01/16/18 10:46 Dose: 40 mg Petrolatum (Desitin Maximum Strength Topical 40% Oint) 1 applic TOP DAILY [facility] Last Admin: 01/15/18 09:19 Dose: 1 applic Rivaroxaban (Xarelto) 20 mg PO QPM [facility] PRN Reason: Protocol Last Admin: 01/15/18 17:18 Dose: 20 mg Sertraline HCl (Zoloft) 25 mg PO HS [facility] Last Admin: 01/15/18 21:21 Dose: 25 mg - Labs Labs: - Additional Findings Additional findings: - Constitutional Appears: No Acute Distress - Head Exam Head Exam: ATRAUMATIC - Eye Exam Eye Exam: EOMI - ENT Exam Additional comments: has trache in place, no erythema and no discharge from around trache site - Neck Exam Additional comments: supple - Respiratory Exam Respiratory Exam: NORMAL BREATHING PATTERN Additional comments: Good breath sounds heard B/L no wheezing - Cardiovascular Exam Cardiovascular Exam: RRR, +S1, +S2 - GI/Abdominal Exam GI & Abdominal Exam: Normal Bowel Sounds, Soft Additional comments: NT, ND peg tube site clean/dry/intact no erythema no lesions no guarding, no rebound - Extremities Exam Additional comments: no edema b/l LE - Neurological Exam Neurological exam: Alert Additional comments: awake, alert oriented Laboratory Results - last 72 hr 01/14/18 01/14/18 01/15/18 07:42 08:43 05:30 WBC 10.5 RBC 3.35 L Hgb 10.0 L Hct 29.7 L MCV 88.8 MCH 30.0 MCHC 33.7 RDW 18.0 H Plt Count 289 Sodium Potassium Chloride Carbon Dioxide Anion Gap BUN Creatinine Est GFR ( Amer) Est GFR (Non-Af Amer) Random Glucose Calcium Phosphorus Magnesium Total Bilirubin AST ALT Alkaline Phosphatase Total Protein Albumin Globulin Albumin/Globulin Ratio Vancomycin Trough 30.1 H C. difficile Ag & Toxin Negative 01/15/18 01/15/18 01/16/18 05:30 05:30 05:55 WBC 9.0 RBC 3.25 L Hgb 9.7 L Hct 28.8 L MCV 88.8 MCH 29.7 MCHC 33.5 RDW 17.1 H Plt Count 294 Sodium 138 Potassium 3.8 Chloride 97 L Carbon Dioxide 35 H Anion Gap 10 BUN 13 Creatinine 0.8 Est GFR ( Amer) > 60 Est GFR (Non-Af Amer) > 60 Random Glucose 103 Calcium 10.6 H Phosphorus 3.2 Magnesium 1.4 L Total Bilirubin 0.4 AST 28 ALT 18 Alkaline Phosphatase 122 Total Protein 6.8 Albumin 3.0 L Globulin 3.8 Albumin/Globulin Ratio 0.8 L Vancomycin Trough 19.9 H C. difficile Ag & Toxin 01/16/18 05:55 WBC RBC Hgb Hct MCV MCH MCHC RDW Plt Count Sodium 138 Potassium 3.4 L Chloride 100 Carbon Dioxide 33 H Anion Gap 8 L BUN 14 Creatinine 0.8 Est GFR ( Amer) > 60 Est GFR (Non-Af Amer) > 60 Random Glucose 92 Calcium 10.1 Phosphorus Magnesium Total Bilirubin 0.2 AST 18 ALT 20 Alkaline Phosphatase 114 Total Protein 6.6 Albumin 3.0 L Globulin 3.6 Albumin/Globulin Ratio 0.8 L Vancomycin Trough C. difficile Ag & Toxin Microbiology 01/05/18 12:16 Blood-Venous Blood Culture - Final NO GROWTH AFTER 5 DAYS 01/05/18 12:16 Blood-Venous Gram Stain - Final TEST NOT PERFORMED 01/05/18 12:16 Blood-Venous Blood Culture - Final NO GROWTH AFTER 5 DAYS 01/05/18 12:16 Blood-Venous Gram Stain - Final TEST NOT PERFORMED 01/06/18 11:30 Urine,Castillo Urine Culture - Final No Growth (<1,000 CFU/ML) 01/05/18 16:24 Urine,[place]illo Urine Culture - Final Proteus Mirabilis 01/03/18 17:00 Blood Blood Culture - Final Enterococcus Faecalis 01/03/18 17:00 Blood Gram Stain - Final 01/03/18 17:57 Urine,[place]illo Urine Culture - Final 10-50,000 CFU/ML. MULTIPLE SPECIES. PROBABLE CONTAMINATION. Assessment and Plan (1) Leukocytosis Status: Acute (2) UTI (urinary tract infection) Status: Acute (3) CVA (cerebral vascular accident) Status: Acute (4) S/P percutaneous endoscopic gastrostomy (PEG) tube placement Status: Acute (5) Status post tracheostomy Status: Acute - Assessment and Plan (Free Text) Assessment: A/P- 52 year old female with extensive medical history including cervical CA s/p hysterectomy and chemo, sepsis and bacteremia nad MDR UTI in 03/2017, CVA s/p intubation , later trached, s/p peg and has indwelling castillo cath admitted with cloudy urine and low garde temp. remains afebrile. leukocytosis has resolved. + UA on admission cxr- negative as per report. blood cx- e.fecalis x 1 sens to vanco, cipro and linezolid but linezolid AMEENA is 2 urine cx-01/05/2018 proteus but was 10-50,000 repeat urine cx- 01/06/2018- negative repeat blood cx- neg x 2 TTE- no veg as per report but Aortic valve not well visualized as per report. c.diff- neg PLan- completed 4 days of IV meropenem . repeat urine cx- negative. continue with IV vanco for e.fecalis bacteremia day #9 today. will need total of 14 pineda of IV vancomycin for e.fecalis bactermia. hence 5 more days. check blood cx post completion of iv abx as outpatient. keep vanco trough between 15-20. monitor creatinine and hearing while on vancomycin.
[2018-01-16] MEDS: DESTIN OINT TOP SCH (15:03)
[2018-01-16] MEDS: Acetaminophen-Codeine 300/30 mg Tab PEG PRN (21:37)
[2018-01-17] MEDS: Proshield Plus GEL TOP SCH ×3 (01:08→17:05)
[2018-01-17 06:38] LABS: HEMOGLOBIN 9.2 g/dL (12.0-16.0); MEAN CELL VOLUME 89.4 fl (81.0-99.0); MEAN CORPUSCULAR HEMOGLOBIN 29.7 pg (27.0-31.0); MEAN CORPUSCULAR HGB CONC 33.2 g/dL (33.0-37.0); RBC 3.11 Mil/uL (3.80-5.20); RED CELL DISTRIBUTION WIDTH 17.5 % (11.5-14.5); WHITE BLOOD COUNT 8.2 K/uL (4.8-10.8)
[2018-01-17 06:52] LABS: BLOOD UREA NITROGEN 13 mg/dl (7-17); CALCIUM 10.2 mg/dL (8.4-10.2); GFR NON-AFRICAN AMERICAN > 60
[2018-01-17] MEDS: Albuterol-Ipratrop 3 mg / 0.5 (3 ml) UD INH SCH ×3 (07:15→19:10)
--- NOTE | 2018-01-17 08:08 | CP.PCM.PN ---
<Silverio Rosario - Last Filed: 01/17/18 11:34> Subjective - Date & Time of Evaluation Date of Evaluation: 01/17/18 Time of Evaluation: 07:10 - Subjective Subjective: 52 y/o f evaluated and examined by bedside with Dr Martel. Pt reports feeling well , has a tracheostomy collar and PEG tube. Pt tolerating pureed diet, afebrile and NO acute events overnight. Objective - Vital Signs/Intake and Output Vital Signs (last 24 hours): Temp Pulse Resp BP Pulse Ox 98.7 F 109 H 19 101/61 99 01/17/18 00:00 01/17/18 00:00 01/17/18 00:00 01/17/18 00:00 01/17/18 00:00 Intake and Output: 01/17/18 01/17/18 06:59 18:59 Output Total 500 Balance -500 - Medications Medications: Current Medications Acetaminophen (Tylenol 325mg Tab) 650 mg PEG Q6 PRN PRN Reason: Pain, Mild (1-3) Last Admin: 01/09/18 23:24 Dose: 650 mg Acetaminophen (Tylenol 650mg/20.3ml Solution Ud) 650 mg PEG Q4 PRN PRN Reason: Fever >100.4 F Last Admin: 01/13/18 16:44 Dose: 650 mg Acetaminophen/Codeine Phosphate (Tylenol/Codeine 300 Mg/30 Mg) 1 tab PEG Q8 PRN PRN Reason: Pain, moderate (4-7) Last Admin: 01/16/18 21:37 Dose: 1 tab Al Hydrox/Mg Hydrox/Simethicone (Maalox Plus 30 Ml) 30 ml PEG Q8 PRN PRN Reason: Indigestion / Heartburn Last Admin: 01/07/18 18:08 Dose: 30 ml Albuterol/Ipratropium (Duoneb 3 Mg/0.5 Mg (3 Ml) Ud) 3 ml INH RTID [facility] Last Admin: 01/16/18 19:22 Dose: 3 ml Bismuth Subsalicylate (Pepto-Bismol) 524 mg PEG Q4 PRN PRN Reason: Diarrhea Last Admin: 01/15/18 13:15 Dose: 524 mg Dimethicone (Proshield Plus Skin Protectant) 1 applic TOP Q8 [facility] Last Admin: 01/17/18 01:08 Dose: 1 applic Gabapentin (Neurontin) 100 mg PEG Q8 [facility] Last Admin: 01/17/18 01:08 Dose: 100 mg Vancomycin HCl 750 mg/ Sodium (Chloride) 250 mls @ 166.667 mls/hr IVPB Q12@0500 ,1700 [facility] PRN Reason: Protocol Last Admin: 01/17/18 04:51 Dose: 166.667 mls/hr Levetiracetam (Keppra) 500 mg PEG Q12 [facility] Last Admin: 01/16/18 21:23 Dose: 500 mg Magnesium Oxide (Mag-Ox) 800 mg PEG BID [facility] Last Admin: 01/16/18 17:21 Dose: 800 mg Ondansetron HCl (Zofran Inj) 4 mg IVP Q6 PRN PRN Reason: Nausea/Vomiting Last Admin: 01/15/18 17:59 Dose: 4 mg Pantoprazole Sodium (Protonix Susp) 40 mg PEG DAILY [facility] Last Admin: 01/16/18 10:46 Dose: 40 mg Rivaroxaban (Xarelto) 20 mg PO QPM [facility] PRN Reason: Protocol Last Admin: 01/16/18 17:23 Dose: 20 mg Sertraline HCl (Zoloft) 25 mg PO HS [facility] Last Admin: 01/16/18 21:23 Dose: 25 mg - Labs Labs: 01/17/18 05:50 01/17/18 05:50 - Constitutional Appears: No Acute Distress - Head Exam Head Exam: ATRAUMATIC - Eye Exam Eye Exam: EOMI, Normal appearance - Neck Exam Neck Exam: Full ROM Additional comments: Pt with tracheostomy collar and PEG tube, - Respiratory Exam Respiratory Exam: NORMAL BREATHING PATTERN. absent: Rhonchi, Wheezes - Cardiovascular Exam Cardiovascular Exam: +S1, +S2 - GI/Abdominal Exam GI & Abdominal Exam: Soft. absent: Distended, Guarding, Tenderness - Extremities Exam Extremities Exam: Normal Inspection - Neurological Exam Neurological Exam: Alert, Awake, Oriented x3 Assessment and Plan - Assessment and Plan (Free Text) Assessment: 52 yo F with a PMHx of Cervical cancer and CVA admitted due to sepsis due to castillo catherer-UTI. Initial blood culture grew E. faecalis, and urine culture P. mirabilis. Currently on IV antibiotic via PICC. --Vancomycin resumed yesterdayd 01/16 but at lower dose, 750mg Q12H. --(Vancomycin on hold on 01/14 due to elevated vancomycin through) --As per ID, IV Vancomycin x 14 days in total, hence 5 more days. (note from ) --On xarelto --Continue with rest of plan as ordered <Jeferson Martel - Last Filed: 01/18/18 16:11> Objective - Vital Signs/Intake and Output Vital Signs (last 24 hours): Temp Pulse Resp BP Pulse Ox 98.9 F 98 H 18 96/57 L 94 L 01/18/18 07:36 01/18/18 07:36 01/18/18 07:36 01/18/18 07:36 01/18/18 07:36 Intake and Output: 01/18/18 01/18/18 06:59 18:59 Intake Total 410 Output Total 700 Balance -290 - Medications Medications: Current Medications Acetaminophen (Tylenol 325mg Tab) 650 mg PEG Q6 PRN PRN Reason: Pain, Mild (1-3) Last Admin: 01/09/18 23:24 Dose: 650 mg Acetaminophen (Tylenol 650mg/20.3ml Solution Ud) 650 mg PEG Q4 PRN PRN Reason: Fever >100.4 F Last Admin: 01/13/18 16:44 Dose: 650 mg Acetaminophen/Codeine Phosphate (Tylenol/Codeine 300 Mg/30 Mg) 1 tab PEG Q8 PRN PRN Reason: Pain, moderate (4-7) Last Admin: 01/18/18 11:14 Dose: 1 tab Al Hydrox/Mg Hydrox/Simethicone (Maalox Plus 30 Ml) 30 ml PEG Q8 PRN PRN Reason: Indigestion / Heartburn Last Admin: 01/07/18 18:08 Dose: 30 ml Albuterol/Ipratropium (Duoneb 3 Mg/0.5 Mg (3 Ml) Ud) 3 ml INH RTID [facility] Last Admin: 01/18/18 14:40 Dose: 3 ml Bismuth Subsalicylate (Pepto-Bismol) 524 mg PEG Q4 PRN PRN Reason: Diarrhea Last Admin: 01/15/18 13:15 Dose: 524 mg Dimethicone (Proshield Plus Skin Protectant) 1 applic TOP Q8 [facility] Last Admin: 01/18/18 09:59 Dose: 1 applic Gabapentin (Neurontin) 100 mg PEG Q8 [facility] Last Admin: 01/18/18 09:58 Dose: 100 mg Vancomycin HCl 750 mg/ Sodium (Chloride) 250 mls @ 166.667 mls/hr IVPB Q12@0500 ,1700 [facility] PRN Reason: Protocol Last Admin: 01/18/18 05:47 Dose: 166.667 mls/hr Levetiracetam (Keppra) 500 mg PEG Q12 [facility] Last Admin: 01/18/18 09:58 Dose: 500 mg Magnesium Oxide (Mag-Ox) 800 mg PEG BID [facility] Last Admin: 01/18/18 09:58 Dose: 800 mg Ondansetron HCl (Zofran Inj) 4 mg IVP Q6 PRN PRN Reason: Nausea/Vomiting Last Admin: 01/15/18 17:59 Dose: 4 mg Pantoprazole Sodium (Protonix Susp) 40 mg PEG DAILY [facility] Last Admin: 01/18/18 10:00 Dose: 40 mg Rivaroxaban (Xarelto) 20 mg PO QPM [facility] PRN Reason: Protocol Last Admin: 01/17/18 19:47 Dose: 20 mg Sertraline HCl (Zoloft) 25 mg PO HS [facility] Last Admin: 01/17/18 21:58 Dose: 25 mg - Labs Labs: 01/17/18 05:50 01/17/18 05:50 Assessment and Plan - Assessment and Plan (Free Text) Assessment: Patient was personally seen and examined by me in rounds with residents. Available labs and diagnostic data reviewed. Case, Patient's condition and management plan discussed with residents in rounds. Agree with resident's progress note. Plan: As ordered.
[2018-01-17] MEDS: Pantoprazole 40 mg Susp UD PEG SCH (08:43)
[2018-01-17] MEDS: levETIRAcetam 100 mg/ml (5ml) Oral Syringe PEG SCH ×2 (08:43→21:59)
[2018-01-17] MEDS: Magnesium Oxide 400 mg Tab UD PEG SCH ×2 (08:44→16:55)
[2018-01-17] MEDS: Acetaminophen-Codeine 300/30 mg Tab PEG PRN (22:05)
[2018-01-18] MEDS: Proshield Plus GEL TOP SCH ×3 (00:45→17:37)
[2018-01-18] MEDS: Albuterol-Ipratrop 3 mg / 0.5 (3 ml) UD INH SCH ×3 (07:41→20:36)
--- NOTE | 2018-01-18 07:45 | CP.PCM.PN ---
<Silverio Rosario - Last Filed: 01/18/18 07:42> Subjective - Date & Time of Evaluation Date of Evaluation: 01/18/18 Time of Evaluation: 07:10 - Subjective Subjective: 52 y/o F evaluated and examined by bedside with Dr Martel. Pt communicating with head movement. Pt reports feeling well, denies chest pain or breathing difficulties. Pt afebrile with no acute events overnight. Objective - Vital Signs/Intake and Output Vital Signs (last 24 hours): Temp Pulse Resp BP Pulse Ox 98.9 F 98 H 18 96/57 L 94 L 01/18/18 07:36 01/18/18 07:36 01/18/18 07:36 01/18/18 07:36 01/18/18 07:36 Intake and Output: 01/18/18 01/18/18 06:59 18:59 Intake Total 410 Output Total 700 Balance -290 - Medications Medications: Current Medications Acetaminophen (Tylenol 325mg Tab) 650 mg PEG Q6 PRN PRN Reason: Pain, Mild (1-3) Last Admin: 01/09/18 23:24 Dose: 650 mg Acetaminophen (Tylenol 650mg/20.3ml Solution Ud) 650 mg PEG Q4 PRN PRN Reason: Fever >100.4 F Last Admin: 01/13/18 16:44 Dose: 650 mg Acetaminophen/Codeine Phosphate (Tylenol/Codeine 300 Mg/30 Mg) 1 tab PEG Q8 PRN PRN Reason: Pain, moderate (4-7) Last Admin: 01/17/18 22:05 Dose: 1 tab Al Hydrox/Mg Hydrox/Simethicone (Maalox Plus 30 Ml) 30 ml PEG Q8 PRN PRN Reason: Indigestion / Heartburn Last Admin: 01/07/18 18:08 Dose: 30 ml Albuterol/Ipratropium (Duoneb 3 Mg/0.5 Mg (3 Ml) Ud) 3 ml INH RTID [facility] Last Admin: 01/18/18 07:41 Dose: 3 ml Bismuth Subsalicylate (Pepto-Bismol) 524 mg PEG Q4 PRN PRN Reason: Diarrhea Last Admin: 01/15/18 13:15 Dose: 524 mg Dimethicone (Proshield Plus Skin Protectant) 1 applic TOP Q8 [facility] Last Admin: 01/18/18 00:45 Dose: 1 applic Gabapentin (Neurontin) 100 mg PEG Q8 [facility] Last Admin: 01/18/18 00:33 Dose: 100 mg Vancomycin HCl 750 mg/ Sodium (Chloride) 250 mls @ 166.667 mls/hr IVPB Q12@0500 ,1700 [facility] PRN Reason: Protocol Last Admin: 01/18/18 05:47 Dose: 166.667 mls/hr Levetiracetam (Keppra) 500 mg PEG Q12 [facility] Last Admin: 01/17/18 21:59 Dose: 500 mg Magnesium Oxide (Mag-Ox) 800 mg PEG BID [facility] Last Admin: 01/17/18 16:55 Dose: 800 mg Ondansetron HCl (Zofran Inj) 4 mg IVP Q6 PRN PRN Reason: Nausea/Vomiting Last Admin: 01/15/18 17:59 Dose: 4 mg Pantoprazole Sodium (Protonix Susp) 40 mg PEG DAILY [facility] Last Admin: 01/17/18 08:43 Dose: 40 mg Rivaroxaban (Xarelto) 20 mg PO QPM [facility] PRN Reason: Protocol Last Admin: 01/17/18 19:47 Dose: 20 mg Sertraline HCl (Zoloft) 25 mg PO HS [facility] Last Admin: 01/17/18 21:58 Dose: 25 mg - Labs Labs: 01/17/18 05:50 01/17/18 05:50 - Constitutional Appears: No Acute Distress - Head Exam Head Exam: ATRAUMATIC, NORMAL INSPECTION - Eye Exam Eye Exam: EOMI - ENT Exam ENT Exam: Mucous Membranes Dry - Neck Exam Neck Exam: Full ROM. absent: Meningismus Additional comments: Tracheostomy collar in place. - Respiratory Exam Respiratory Exam: NORMAL BREATHING PATTERN. absent: Rhonchi, Wheezes - Cardiovascular Exam Cardiovascular Exam: REGULAR RHYTHM, +S1, +S2 - GI/Abdominal Exam GI & Abdominal Exam: Soft. absent: Distended, Guarding, Tenderness - Neurological Exam Neurological Exam: Alert, Awake, Oriented x3 Assessment and Plan - Assessment and Plan (Free Text) Assessment: 52 yo F with a PMHx of Cervical cancer and CVA admitted due to sepsis due to castillo catherer-UTI. Initial blood culture grew E. faecalis, and urine culture P. mirabilis. Currently on IV antibiotic via PICC. --Vancomycin 750mg Q12H. --ID consulted, Dr Caputo. --As per ID, IV Vancomycin x 14 days in total, hence 3 more days from today. Tuesday last dose. --On xarelto --Continue with rest of plan as ordered <Jeferson Martel - Last Filed: 01/18/18 16:18> Objective - Vital Signs/Intake and Output Vital Signs (last 24 hours): Temp Pulse Resp BP Pulse Ox 98.9 F 98 H 18 96/57 L 94 L 01/18/18 07:36 01/18/18 07:36 01/18/18 07:36 01/18/18 07:36 01/18/18 07:36 Intake and Output: 01/18/18 01/18/18 06:59 18:59 Intake Total 410 Output Total 700 Balance -290 - Medications Medications: Current Medications Acetaminophen (Tylenol 325mg Tab) 650 mg PEG Q6 PRN PRN Reason: Pain, Mild (1-3) Last Admin: 01/09/18 23:24 Dose: 650 mg Acetaminophen (Tylenol 650mg/20.3ml Solution Ud) 650 mg PEG Q4 PRN PRN Reason: Fever >100.4 F Last Admin: 01/13/18 16:44 Dose: 650 mg Acetaminophen/Codeine Phosphate (Tylenol/Codeine 300 Mg/30 Mg) 1 tab PEG Q8 PRN PRN Reason: Pain, moderate (4-7) Last Admin: 01/18/18 11:14 Dose: 1 tab Al Hydrox/Mg Hydrox/Simethicone (Maalox Plus 30 Ml) 30 ml PEG Q8 PRN PRN Reason: Indigestion / Heartburn Last Admin: 01/07/18 18:08 Dose: 30 ml Albuterol/Ipratropium (Duoneb 3 Mg/0.5 Mg (3 Ml) Ud) 3 ml INH RTID [facility] Last Admin: 01/18/18 14:40 Dose: 3 ml Bismuth Subsalicylate (Pepto-Bismol) 524 mg PEG Q4 PRN PRN Reason: Diarrhea Last Admin: 01/15/18 13:15 Dose: 524 mg Dimethicone (Proshield Plus Skin Protectant) 1 applic TOP Q8 [facility] Last Admin: 01/18/18 09:59 Dose: 1 applic Gabapentin (Neurontin) 100 mg PEG Q8 [facility] Last Admin: 01/18/18 09:58 Dose: 100 mg Vancomycin HCl 750 mg/ Sodium (Chloride) 250 mls @ 166.667 mls/hr IVPB Q12@0500 ,1700 [facility] PRN Reason: Protocol Last Admin: 01/18/18 05:47 Dose: 166.667 mls/hr Levetiracetam (Keppra) 500 mg PEG Q12 [facility] Last Admin: 01/18/18 09:58 Dose: 500 mg Magnesium Oxide (Mag-Ox) 800 mg PEG BID [facility] Last Admin: 01/18/18 09:58 Dose: 800 mg Ondansetron HCl (Zofran Inj) 4 mg IVP Q6 PRN PRN Reason: Nausea/Vomiting Last Admin: 01/15/18 17:59 Dose: 4 mg Pantoprazole Sodium (Protonix Susp) 40 mg PEG DAILY [facility] Last Admin: 01/18/18 10:00 Dose: 40 mg Rivaroxaban (Xarelto) 20 mg PO QPM [facility] PRN Reason: Protocol Last Admin: 01/17/18 19:47 Dose: 20 mg Sertraline HCl (Zoloft) 25 mg PO HS [facility] Last Admin: 01/17/18 21:58 Dose: 25 mg - Labs Labs: 01/17/18 05:50 01/17/18 05:50 Assessment and Plan - Assessment and Plan (Free Text) Assessment: Patient was personally seen and examined by me in rounds with residents. Available labs and diagnostic data reviewed. Case, Patient's condition and management plan discussed with residents in rounds. Agree with resident's progress note. Plan: As ordered.
[2018-01-18] MEDS: Magnesium Oxide 400 mg Tab UD PEG SCH ×2 (09:58→17:37)
[2018-01-18] MEDS: levETIRAcetam 100 mg/ml (5ml) Oral Syringe PEG SCH ×2 (09:58→21:15)
[2018-01-18] MEDS: Pantoprazole 40 mg Susp UD PEG SCH (10:00)
[2018-01-18] MEDS: Acetaminophen-Codeine 300/30 mg Tab PEG PRN ×2 (11:14→21:17)
[2018-01-18] MEDS ORDERED: Lidocaine/Prilocaine CREAM 5GM TP ONE ×2 (16:47→16:50)
[2018-01-19] MEDS: Proshield Plus GEL TOP SCH ×3 (01:03→18:03)
--- NOTE | 2018-01-19 07:53 | CP.PCM.PN ---
<Silverio Rosario - Last Filed: 01/19/18 07:49> Subjective - Date & Time of Evaluation Date of Evaluation: 01/19/18 Time of Evaluation: 07:00 - Subjective Subjective: 52 y/o F evaluated and examined by bedside with Dr Martel. Pt sleeping comfortably on bed, reports feeling OK, denies chest pain or SOB. Pt afebrile with NO acute events overnight. Vancomycin through elevated-39.6. Objective - Vital Signs/Intake and Output Vital Signs (last 24 hours): Temp Pulse Resp BP Pulse Ox 98.5 F 96 H 20 92/61 L 97 01/19/18 07:33 01/19/18 07:33 01/19/18 07:33 01/19/18 07:33 01/19/18 07:33 Intake and Output: 01/19/18 01/19/18 06:59 18:59 Intake Total 1330 Output Total 550 Balance 780 - Medications Medications: Current Medications Acetaminophen (Tylenol 325mg Tab) 650 mg PEG Q6 PRN PRN Reason: Pain, Mild (1-3) Last Admin: 01/09/18 23:24 Dose: 650 mg Acetaminophen (Tylenol 650mg/20.3ml Solution Ud) 650 mg PEG Q4 PRN PRN Reason: Fever >100.4 F Last Admin: 01/13/18 16:44 Dose: 650 mg Acetaminophen/Codeine Phosphate (Tylenol/Codeine 300 Mg/30 Mg) 1 tab PEG Q8 PRN PRN Reason: Pain, moderate (4-7) Last Admin: 01/18/18 21:17 Dose: 1 tab Al Hydrox/Mg Hydrox/Simethicone (Maalox Plus 30 Ml) 30 ml PEG Q8 PRN PRN Reason: Indigestion / Heartburn Last Admin: 01/07/18 18:08 Dose: 30 ml Albuterol/Ipratropium (Duoneb 3 Mg/0.5 Mg (3 Ml) Ud) 3 ml INH RTID [facility] Last Admin: 01/18/18 20:36 Dose: Not Given Bismuth Subsalicylate (Pepto-Bismol) 524 mg PEG Q4 PRN PRN Reason: Diarrhea Last Admin: 01/15/18 13:15 Dose: 524 mg Dimethicone (Proshield Plus Skin Protectant) 1 applic TOP Q8 [facility] Last Admin: 01/19/18 01:03 Dose: 1 applic Gabapentin (Neurontin) 100 mg PEG Q8 [facility] Last Admin: 01/19/18 01:01 Dose: 100 mg Vancomycin HCl 750 mg/ Sodium (Chloride) 250 mls @ 166.667 mls/hr IVPB Q12@0100 ,1300 [facility] PRN Reason: Protocol Levetiracetam (Keppra) 500 mg PEG Q12 [facility] Last Admin: 01/18/18 21:15 Dose: 500 mg Magnesium Oxide (Mag-Ox) 800 mg PEG BID [facility] Last Admin: 01/18/18 17:37 Dose: 800 mg Ondansetron HCl (Zofran Inj) 4 mg IVP Q6 PRN PRN Reason: Nausea/Vomiting Last Admin: 01/15/18 17:59 Dose: 4 mg Pantoprazole Sodium (Protonix Susp) 40 mg PEG DAILY [facility] Last Admin: 01/18/18 10:00 Dose: 40 mg Rivaroxaban (Xarelto) 20 mg PO QPM [facility] PRN Reason: Protocol Last Admin: 01/18/18 17:38 Dose: 20 mg Sertraline HCl (Zoloft) 25 mg PO HS [facility] Last Admin: 01/18/18 21:15 Dose: 25 mg - Labs Labs: 01/17/18 05:50 01/17/18 05:50 - Constitutional Appears: No Acute Distress - Head Exam Head Exam: NORMAL INSPECTION - Eye Exam Eye Exam: EOMI - Neck Exam Neck Exam: Full ROM. absent: Meningismus - Respiratory Exam Respiratory Exam: NORMAL BREATHING PATTERN. absent: Rhonchi, Wheezes - Cardiovascular Exam Cardiovascular Exam: +S1, +S2 - GI/Abdominal Exam GI & Abdominal Exam: Soft. absent: Distended, Tenderness - Neurological Exam Neurological Exam: Alert, Awake, Oriented x3 Assessment and Plan - Assessment and Plan (Free Text) Assessment: 52 yo F with a PMHx of Cervical cancer and CVA admitted due to sepsis due to castillo catherer-UTI. Initial blood culture grew E. faecalis, and urine culture P. mirabilis. Currently on IV antibiotic via PICC. --Vancomycin though elevated 39.6. --Hold Vancomycin. --CBC and CMP ordered. Monitor renal function --ID consulted, Dr Caputo. --As per ID, IV Vancomycin x 14 days in total, hence 2 more days from today. ( note from 01/16/18) --Continue with rest of plan as ordered. <Jeferson Martel - Last Filed: 01/21/18 10:16> Objective - Vital Signs/Intake and Output Vital Signs (last 24 hours): Temp Pulse Resp BP Pulse Ox 97.9 F 96 H 20 94/69 L 98 01/21/18 08:27 01/21/18 08:27 01/21/18 08:27 01/21/18 08:27 01/21/18 08:27 Intake and Output: 01/21/18 01/21/18 06:59 18:59 Intake Total 1564 Output Total 650 Balance 914 - Medications Medications: Current Medications Acetaminophen (Tylenol 325mg Tab) 650 mg PEG Q6 PRN PRN Reason: Pain, Mild (1-3) Last Admin: 01/20/18 22:01 Dose: 650 mg Acetaminophen (Tylenol 650mg/20.3ml Solution Ud) 650 mg PEG Q4 PRN PRN Reason: Fever >100.4 F Last Admin: 01/13/18 16:44 Dose: 650 mg Acetaminophen/Codeine Phosphate (Tylenol/Codeine 300 Mg/30 Mg) 1 tab PEG Q8 PRN PRN Reason: Pain, moderate (4-7) Last Admin: 01/20/18 06:29 Dose: 1 tab Al Hydrox/Mg Hydrox/Simethicone (Maalox Plus 30 Ml) 30 ml PEG Q8 PRN PRN Reason: Indigestion / Heartburn Last Admin: 01/07/18 18:08 Dose: 30 ml Albuterol/Ipratropium (Duoneb 3 Mg/0.5 Mg (3 Ml) Ud) 3 ml INH RTID [facility] Last Admin: 01/21/18 07:49 Dose: 3 ml Bismuth Subsalicylate (Pepto-Bismol) 524 mg PEG Q4 PRN PRN Reason: Diarrhea Last Admin: 01/15/18 13:15 Dose: 524 mg Dimethicone (Proshield Plus Skin Protectant) 1 applic TOP Q8 [facility] Last Admin: 01/21/18 09:51 Dose: 1 applic Gabapentin (Neurontin) 100 mg PEG Q8 [facility] Last Admin: 01/21/18 09:50 Dose: 100 mg Vancomycin HCl 750 mg/ Sodium (Chloride) 250 mls @ 166.667 mls/hr IVPB Q12@0100 ,1300 [facility] PRN Reason: Protocol Fluconazole (Diflucan Iv 200 Mg/100 Ml Ns) 100 mls @ 100 mls/hr IVPB DAILY [facility] PRN Reason: Protocol Last Admin: 01/21/18 08:17 Dose: 100 mls/hr Vancomycin HCl 750 mg/ Sodium (Chloride) 250 mls @ 250 mls/hr IVPB DAILY [facility] PRN Reason: Protocol Last Admin: 01/21/18 09:21 Dose: 250 mls/hr Levetiracetam (Keppra) 500 mg PEG Q12 [facility] Last Admin: 01/21/18 09:50 Dose: 500 mg Magnesium Oxide (Mag-Ox) 400 mg PO DAILY [facility] Last Admin: 01/21/18 09:51 Dose: 400 mg Nystatin (Nystop Topical Powder) 1 applic TOP TID [facility] Last Admin: 01/21/18 09:51 Dose: 1 applic Ondansetron HCl (Zofran Inj) 4 mg IVP Q6 PRN PRN Reason: Nausea/Vomiting Last Admin: 01/15/18 17:59 Dose: 4 mg Pantoprazole Sodium (Protonix Susp) 40 mg PEG DAILY [facility] Last Admin: 01/21/18 09:51 Dose: 40 mg Rivaroxaban (Xarelto) 20 mg PO QPM [facility] PRN Reason: Protocol Last Admin: 01/20/18 17:28 Dose: 20 mg Sertraline HCl (Zoloft) 25 mg PO HS [facility] Last Admin: 01/20/18 22:01 Dose: 25 mg - Labs Labs: 01/19/18 11:46 01/20/18 06:56 Assessment and Plan - Assessment and Plan (Free Text) Assessment: Patient was personally seen and examined by me in rounds with residents. Available labs and diagnostic data reviewed. Case, Patient's condition and management plan discussed with residents in rounds. Agree with resident's progress note. Plan: As ordered.
[2018-01-19] MEDS: Albuterol-Ipratrop 3 mg / 0.5 (3 ml) UD INH SCH ×3 (07:57→19:02)
[2018-01-19] MEDS: Acetaminophen-Codeine 300/30 mg Tab PEG PRN ×2 (10:12→18:01)
[2018-01-19] MEDS: levETIRAcetam 100 mg/ml (5ml) Oral Syringe PEG SCH ×2 (10:13→21:50)
[2018-01-19] MEDS: Pantoprazole 40 mg Susp UD PEG SCH (10:14)
[2018-01-19 11:52] LABS: HEMOGLOBIN 9.5 g/dL (12.0-16.0); MEAN CORPUSCULAR HEMOGLOBIN 29.7 pg (27.0-31.0); MEAN CORPUSCULAR HGB CONC 33.4 g/dL (33.0-37.0); RBC 3.21 Mil/uL (3.80-5.20); RED CELL DISTRIBUTION WIDTH 17.2 % (11.5-14.5); WHITE BLOOD COUNT 9.5 K/uL (4.8-10.8)
[2018-01-19 12:13] LABS: ALB/GLOB RATIO 0.8 (1.0-2.1); ALBUMIN 3.1 g/dL (3.5-5.0); ALT/SGPT 23 U/L (9-52); AST/SGOT 28 U/L (14-36); BLOOD UREA NITROGEN 12 mg/dl (7-17); CALCIUM 10.2 mg/dL (8.4-10.2); GFR NON-AFRICAN AMERICAN > 60
[2018-01-19] MEDS: Fluconazole IV 200mg/100 ml NS 100 ML IVPB SCH (15:11)
--- NOTE | 2018-01-19 17:51 | CP.PCM.CON ---
History of Present Illness - History of Present Illness History of Present Illness: 52 yrs old female with Hx of CVA , COPD, Tracheostomy, PEG status evaluated for use of PMV Patient tolerated well the use of PMV daytime. Reported by nurses Patient has been refusing suction trough the Tracheostomy, nurses suctioning with yankauer orally.She is tolerating pureed diet and thicked fluid. Patient on DuoNeb neb Rx, Prometh with Codeine via PEG, CT Abd/Pelvis Chronic changes at lung bases Patient is treated for blood C-S E Fecalis with Vanco via PICC Review of Systems - Review of Systems Systems not reviewed;Unavailable: Acuity of Condition Past Patient History - Past Medical History & Family History Past Medical History?: Yes - Past Social History Smoking Status: Never Smoked Home Situation {Lives}: With Family - CARDIAC Hx Cardiac Disorders: Yes Hx Hypertension: Yes - PULMONARY Hx Pneumonia: Yes Hx Pulmonary Embolism: Yes Other/Comment: Tracheostomy - NEUROLOGICAL HX Cerebrovascular Accident: Yes - HEENT Hx HEENT Problems: No - RENAL Hx Chronic Kidney Disease: Yes Other/Comment: hydronephrosis, R ureteral stent and removal (01/27/17). 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) - ENDOCRINE/METABOLIC Hx Endocrine Disorders: No - HEMATOLOGICAL/ONCOLOGICAL Hx Cancer: Yes - INTEGUMENTARY Hx Dermatological Problems: Yes Other/Comment: Sacral excoriations - MUSCULOSKELETAL/RHEUMATOLOGICAL Hx Musculoskeletal Disorders: No Hx Falls: No - GASTROINTESTINAL Hx Gastritis: Yes - GENITOURINARY/GYNECOLOGICAL Hx Genitourinary Disorders: Yes Hx Cervical Cancer: Yes Hx Ovarian Cancer: Yes Hx Urinary Tract Infection: Yes - PSYCHIATRIC Hx Psychophysiologic Disorder: No Hx Substance Use: No - SURGICAL HISTORY Hx Cholecystectomy: Yes Hx Hysterectomy: Yes - ANESTHESIA Hx Anesthesia: Yes Hx Anesthesia Reactions: No Meds Allergies/Adverse Reactions: Allergies Allergy/AdvReac Type Severity Reaction Status Date / Time cimetidine [From Tagamet] Allergy RASH Verified 04/04/17 05:33 nickel Allergy RASH Verified 04/04/17 05:34 Penicillins Allergy RASH Verified 04/04/17 05:33 - Medications Medications: Current Medications Acetaminophen (Tylenol 325mg Tab) 650 mg PEG Q6 PRN PRN Reason: Pain, Mild (1-3) Last Admin: 01/09/18 23:24 Dose: 650 mg Acetaminophen (Tylenol 650mg/20.3ml Solution Ud) 650 mg PEG Q4 PRN PRN Reason: Fever >100.4 F Last Admin: 01/13/18 16:44 Dose: 650 mg Acetaminophen/Codeine Phosphate (Tylenol/Codeine 300 Mg/30 Mg) 1 tab PEG Q8 PRN PRN Reason: Pain, moderate (4-7) Last Admin: 01/19/18 10:12 Dose: 1 tab Al Hydrox/Mg Hydrox/Simethicone (Maalox Plus 30 Ml) 30 ml PEG Q8 PRN PRN Reason: Indigestion / Heartburn Last Admin: 01/07/18 18:08 Dose: 30 ml Albuterol/Ipratropium (Duoneb 3 Mg/0.5 Mg (3 Ml) Ud) 3 ml INH RTID [facility] Last Admin: 01/19/18 13:42 Dose: 3 ml Bismuth Subsalicylate (Pepto-Bismol) 524 mg PEG Q4 PRN PRN Reason: Diarrhea Last Admin: 01/15/18 13:15 Dose: 524 mg Dimethicone (Proshield Plus Skin Protectant) 1 applic TOP Q8 [facility] Last Admin: 01/19/18 10:13 Dose: 1 applic Gabapentin (Neurontin) 100 mg PEG Q8 [facility] Last Admin: 01/19/18 10:13 Dose: 100 mg Vancomycin HCl 750 mg/ Sodium (Chloride) 250 mls @ 166.667 mls/hr IVPB Q12@0100 ,1300 [facility] PRN Reason: Protocol Fluconazole (Diflucan Iv 200 Mg/100 Ml Ns) 100 mls @ 100 mls/hr IVPB DAILY [facility] PRN Reason: Protocol Last Admin: 01/19/18 15:11 Dose: 100 mls/hr Vancomycin HCl 750 mg/ Sodium (Chloride) 250 mls @ 250 mls/hr IVPB DAILY [facility] PRN Reason: Protocol Levetiracetam (Keppra) 500 mg PEG Q12 [facility] Last Admin: 01/19/18 10:13 Dose: 500 mg Nystatin (Nystop Topical Powder) 1 applic TOP TID [facility] Last Admin: 01/19/18 13:35 Dose: 1 applic Ondansetron HCl (Zofran Inj) 4 mg IVP Q6 PRN PRN Reason: Nausea/Vomiting Last Admin: 01/15/18 17:59 Dose: 4 mg Pantoprazole Sodium (Protonix Susp) 40 mg PEG DAILY [facility] Last Admin: 01/19/18 10:14 Dose: 40 mg Rivaroxaban (Xarelto) 20 mg PO QPM [facility] PRN Reason: Protocol Last Admin: 01/18/18 17:38 Dose: 20 mg Sertraline HCl (Zoloft) 25 mg PO HS [facility] Last Admin: 01/18/18 21:15 Dose: 25 mg Physical Exam - Constitutional Appears: Chronically Ill - Head Exam Head Exam: NORMAL INSPECTION - Eye Exam Eye Exam: PERRL - ENT Exam ENT Exam: Normal Exam - Neck Exam Additional comments: Tracheostomy - Respiratory Exam Respiratory Exam: Decreased Breath Sounds (at bases) - Cardiovascular Exam Cardiovascular Exam: REGULAR RHYTHM - GI/Abdominal Exam GI & Abdominal Exam: Normal Bowel Sounds, Soft Additional comments: PEG - Exam Additional comments: Overton Cath - Extremities Exam Extremities exam: Positive for: normal inspection Additional comments: L hand contracted - Back Exam Additional comments: Sacral , rectal, L buttock excoriated opened areas - Neurological Exam Neurological exam: Alert Additional comments: L hemiparesia - Psychiatric Exam Psychiatric exam: Anxious - Skin Skin Exam: Warm Results - Vital Signs Recent Vital Signs: Last Vital Signs Temp 98.3 F 01/19/18 15:51 Pulse 94 H 01/19/18 15:51 Resp 20 01/19/18 15:51 BP 90/61 L 01/19/18 15:51 Pulse Ox 97 01/19/18 15:51 - Labs Result Diagrams: 01/19/18 11:46 01/19/18 11:46 Labs: Laboratory Results - last 24 hr 01/18/18 01/18/18 01/19/18 17:30 17:30 11:46 WBC RBC Hgb Hct MCV MCH MCHC RDW Plt Count Sodium Potassium Chloride Carbon Dioxide Anion Gap BUN Creatinine Est GFR ( Amer) Est GFR (Non-Af Amer) Random Glucose Calcium Magnesium 1.6 Total Bilirubin AST ALT Alkaline Phosphatase Total Protein Albumin Globulin Albumin/Globulin Ratio Vancomycin Trough 39.6 H 38.0 H 01/19/18 01/19/18 11:46 11:46 WBC 9.5 RBC 3.21 L Hgb 9.5 L Hct 28.5 L MCV 89.0 MCH 29.7 MCHC 33.4 RDW 17.2 H Plt Count 289 Sodium 140 Potassium 3.4 L Chloride 100 Carbon Dioxide 33 H Anion Gap 10 BUN 12 Creatinine 0.9 Est GFR ( Amer) > 60 Est GFR (Non-Af Amer) > 60 Random Glucose 109 H Calcium 10.2 Magnesium Total Bilirubin 0.3 AST 28 ALT 23 Alkaline Phosphatase 107 Total Protein 6.9 Albumin 3.1 L Globulin 3.7 Albumin/Globulin Ratio 0.8 L Vancomycin Trough Assessment & Plan (1) Tracheostomy status Status: Chronic (2) COPD (chronic obstructive pulmonary disease) Status: Acute (3) CVA (cerebral vascular accident) Status: Acute (4) PEG (percutaneous endoscopic gastrostomy) status Status: Acute - Assessment and Plan (Free Text) Plan: continue DuoNeb, O2 , PMV, CT Chest to asses Pulmonary barrientos and Trachea
[2018-01-19] MEDS ORDERED: Potassium Chloride 20 mEq/15 ml LIQ UD PO ONE (21:30)
[2018-01-20] MEDS ORDERED: Sodium Chloride 3% for Inhalation 4 ML VIAL.NEB IH PRN
[2018-01-20] MEDS: Acetaminophen-Codeine 300/30 mg Tab PEG PRN (06:29)
[2018-01-20] MEDS: Proshield Plus GEL TOP SCH ×3 (06:39→17:29)
[2018-01-20 07:28] LABS: ALB/GLOB RATIO 0.8 (1.0-2.1); ALT/SGPT 23 U/L (9-52); AST/SGOT 26 U/L (14-36); BLOOD UREA NITROGEN 12 mg/dl (7-17); CALCIUM 10.3 mg/dL (8.4-10.2); GFR NON-AFRICAN AMERICAN > 60
[2018-01-20] MEDS: Albuterol-Ipratrop 3 mg / 0.5 (3 ml) UD INH SCH ×3 (07:46→19:31)
--- NOTE | 2018-01-20 07:53 | CP.PCM.PN ---
<Silverio Rosario - Last Filed: 01/20/18 07:43> Subjective - Date & Time of Evaluation Date of Evaluation: 01/20/18 Time of Evaluation: 07:10 - Subjective Subjective: 52 y/o f evaluated and examined with Dr Martel by bedside. Pt w/ collar tracheotomy, communicates with head movements. Pt is awake, alert, reports feeling well, denies chest pain, SOB, nausea or vomiting. Pt afebrile with NO overnight acute events. Objective - Vital Signs/Intake and Output Vital Signs (last 24 hours): Temp Pulse Resp BP Pulse Ox 98.8 F 95 H 18 92/57 L 98 01/20/18 01:00 01/20/18 01:00 01/20/18 01:00 01/20/18 01:00 01/20/18 01:00 Intake and Output: 01/20/18 01/20/18 06:59 18:59 Intake Total 250 Output Total 1100 Balance -850 - Medications Medications: Current Medications Acetaminophen (Tylenol 325mg Tab) 650 mg PEG Q6 PRN PRN Reason: Pain, Mild (1-3) Last Admin: 01/09/18 23:24 Dose: 650 mg Acetaminophen (Tylenol 650mg/20.3ml Solution Ud) 650 mg PEG Q4 PRN PRN Reason: Fever >100.4 F Last Admin: 01/13/18 16:44 Dose: 650 mg Acetaminophen/Codeine Phosphate (Tylenol/Codeine 300 Mg/30 Mg) 1 tab PEG Q8 PRN PRN Reason: Pain, moderate (4-7) Last Admin: 01/20/18 06:29 Dose: 1 tab Al Hydrox/Mg Hydrox/Simethicone (Maalox Plus 30 Ml) 30 ml PEG Q8 PRN PRN Reason: Indigestion / Heartburn Last Admin: 01/07/18 18:08 Dose: 30 ml Albuterol/Ipratropium (Duoneb 3 Mg/0.5 Mg (3 Ml) Ud) 3 ml INH RTID [facility] Last Admin: 01/19/18 19:02 Dose: 3 ml Bismuth Subsalicylate (Pepto-Bismol) 524 mg PEG Q4 PRN PRN Reason: Diarrhea Last Admin: 01/15/18 13:15 Dose: 524 mg Dimethicone (Proshield Plus Skin Protectant) 1 applic TOP Q8 [facility] Last Admin: 01/20/18 06:39 Dose: 1 applic Gabapentin (Neurontin) 100 mg PEG Q8 [facility] Last Admin: 01/20/18 02:02 Dose: 100 mg Vancomycin HCl 750 mg/ Sodium (Chloride) 250 mls @ 166.667 mls/hr IVPB Q12@0100 ,1300 [facility] PRN Reason: Protocol Fluconazole (Diflucan Iv 200 Mg/100 Ml Ns) 100 mls @ 100 mls/hr IVPB DAILY [facility] PRN Reason: Protocol Last Admin: 01/19/18 15:11 Dose: 100 mls/hr Vancomycin HCl 750 mg/ Sodium (Chloride) 250 mls @ 250 mls/hr IVPB DAILY [facility] PRN Reason: Protocol Levetiracetam (Keppra) 500 mg PEG Q12 [facility] Last Admin: 01/19/18 21:50 Dose: 500 mg Nystatin (Nystop Topical Powder) 1 applic TOP TID [facility] Last Admin: 01/19/18 18:04 Dose: 1 applic Ondansetron HCl (Zofran Inj) 4 mg IVP Q6 PRN PRN Reason: Nausea/Vomiting Last Admin: 01/15/18 17:59 Dose: 4 mg Pantoprazole Sodium (Protonix Susp) 40 mg PEG DAILY [facility] Last Admin: 01/19/18 10:14 Dose: 40 mg Rivaroxaban (Xarelto) 20 mg PO QPM [facility] PRN Reason: Protocol Last Admin: 01/19/18 18:03 Dose: 20 mg Sertraline HCl (Zoloft) 25 mg PO HS [facility] Last Admin: 01/19/18 21:50 Dose: 25 mg - Labs Labs: 01/19/18 11:46 01/20/18 06:56 - Constitutional Appears: No Acute Distress - Head Exam Head Exam: ATRAUMATIC, NORMAL INSPECTION - Eye Exam Eye Exam: EOMI, Normal appearance - ENT Exam ENT Exam: Mucous Membranes Moist - Neck Exam Neck Exam: Full ROM. absent: Lymphadenopathy, Meningismus - Respiratory Exam Respiratory Exam: NORMAL BREATHING PATTERN. absent: Wheezes Additional comments: with collar tracheostomy. - Cardiovascular Exam Cardiovascular Exam: +S1, +S2 - GI/Abdominal Exam GI & Abdominal Exam: Soft. absent: Distended, Firm, Guarding, Tenderness - Neurological Exam Neurological Exam: Alert, Awake Assessment and Plan - Assessment and Plan (Free Text) Assessment: 52 yo F with a PMHx of Cervical cancer and CVA admitted due to sepsis due to castillo catherer-UTI. Initial blood culture grew E. faecalis, and urine culture P. mirabilis. Currently on IV antibiotic via PICC. --Vancomycin though elevated 38.. --Vancomycin held --Hypokalemia, PO KCl given last night, Repeat CMP this morning. --ID consulted, Dr Caputo. --Pulmonology consult, Dr Cornejo. For tracheostomy equipment evaluation. --As per ID, IV Vancomycin x 14 days in total, hence 1 more day from today. --Continue with rest of plan as ordered. <Jeferson Martel - Last Filed: 01/21/18 10:17> Objective - Vital Signs/Intake and Output Vital Signs (last 24 hours): Temp Pulse Resp BP Pulse Ox 97.9 F 96 H 20 94/69 L 98 01/21/18 08:27 01/21/18 08:27 01/21/18 08:27 01/21/18 08:27 01/21/18 08:27 Intake and Output: 01/21/18 01/21/18 06:59 18:59 Intake Total 1564 Output Total 650 Balance 914 - Medications Medications: Current Medications Acetaminophen (Tylenol 325mg Tab) 650 mg PEG Q6 PRN PRN Reason: Pain, Mild (1-3) Last Admin: 01/20/18 22:01 Dose: 650 mg Acetaminophen (Tylenol 650mg/20.3ml Solution Ud) 650 mg PEG Q4 PRN PRN Reason: Fever >100.4 F Last Admin: 01/13/18 16:44 Dose: 650 mg Acetaminophen/Codeine Phosphate (Tylenol/Codeine 300 Mg/30 Mg) 1 tab PEG Q8 PRN PRN Reason: Pain, moderate (4-7) Last Admin: 01/20/18 06:29 Dose: 1 tab Al Hydrox/Mg Hydrox/Simethicone (Maalox Plus 30 Ml) 30 ml PEG Q8 PRN PRN Reason: Indigestion / Heartburn Last Admin: 01/07/18 18:08 Dose: 30 ml Albuterol/Ipratropium (Duoneb 3 Mg/0.5 Mg (3 Ml) Ud) 3 ml INH RTID [facility] Last Admin: 01/21/18 07:49 Dose: 3 ml Bismuth Subsalicylate (Pepto-Bismol) 524 mg PEG Q4 PRN PRN Reason: Diarrhea Last Admin: 01/15/18 13:15 Dose: 524 mg Dimethicone (Proshield Plus Skin Protectant) 1 applic TOP Q8 [facility] Last Admin: 01/21/18 09:51 Dose: 1 applic Gabapentin (Neurontin) 100 mg PEG Q8 [facility] Last Admin: 01/21/18 09:50 Dose: 100 mg Vancomycin HCl 750 mg/ Sodium (Chloride) 250 mls @ 166.667 mls/hr IVPB Q12@0100 ,1300 [facility] PRN Reason: Protocol Fluconazole (Diflucan Iv 200 Mg/100 Ml Ns) 100 mls @ 100 mls/hr IVPB DAILY [facility] PRN Reason: Protocol Last Admin: 01/21/18 08:17 Dose: 100 mls/hr Vancomycin HCl 750 mg/ Sodium (Chloride) 250 mls @ 250 mls/hr IVPB DAILY [facility] PRN Reason: Protocol Last Admin: 01/21/18 09:21 Dose: 250 mls/hr Levetiracetam (Keppra) 500 mg PEG Q12 [facility] Last Admin: 01/21/18 09:50 Dose: 500 mg Magnesium Oxide (Mag-Ox) 400 mg PO DAILY [facility] Last Admin: 01/21/18 09:51 Dose: 400 mg Nystatin (Nystop Topical Powder) 1 applic TOP TID [facility] Last Admin: 01/21/18 09:51 Dose: 1 applic Ondansetron HCl (Zofran Inj) 4 mg IVP Q6 PRN PRN Reason: Nausea/Vomiting Last Admin: 01/15/18 17:59 Dose: 4 mg Pantoprazole Sodium (Protonix Susp) 40 mg PEG DAILY [facility] Last Admin: 01/21/18 09:51 Dose: 40 mg Rivaroxaban (Xarelto) 20 mg PO QPM [facility] PRN Reason: Protocol Last Admin: 01/20/18 17:28 Dose: 20 mg Sertraline HCl (Zoloft) 25 mg PO HS [facility] Last Admin: 01/20/18 22:01 Dose: 25 mg - Labs Labs: 01/19/18 11:46 01/20/18 06:56 Assessment and Plan - Assessment and Plan (Free Text) Assessment: Patient was personally seen and examined by me in rounds with residents. Available labs and diagnostic data reviewed. Case, Patient's condition and management plan discussed with residents in rounds. Agree with resident's progress note. Plan: As ordered.
[2018-01-20] MEDS: Fluconazole IV 200mg/100 ml NS 100 ML IVPB SCH (09:09)
[2018-01-20] MEDS: levETIRAcetam 100 mg/ml (5ml) Oral Syringe PEG SCH ×2 (09:12→21:01)
[2018-01-20] MEDS: Pantoprazole 40 mg Susp UD PEG SCH (09:13)
[2018-01-20] MEDS: Magnesium Oxide 400 mg Tab UD PO SCH (11:19)
--- NOTE | 2018-01-20 12:31 | CP.PCM.PN ---
Subjective - Subjective Subjective: no AD, tolerating well PMV Objective - Vital Signs/Intake and Output Vital Signs (last 24 hours): Temp Pulse Resp BP Pulse Ox 98.5 F 100 H 20 85/55 L 98 01/20/18 07:55 01/20/18 07:55 01/20/18 07:55 01/20/18 07:55 01/20/18 07:55 Intake and Output: 01/20/18 01/20/18 06:59 18:59 Intake Total 250 Output Total 1100 Balance -850 - Medications Medications: Current Medications Acetaminophen (Tylenol 325mg Tab) 650 mg PEG Q6 PRN PRN Reason: Pain, Mild (1-3) Last Admin: 01/09/18 23:24 Dose: 650 mg Acetaminophen (Tylenol 650mg/20.3ml Solution Ud) 650 mg PEG Q4 PRN PRN Reason: Fever >100.4 F Last Admin: 01/13/18 16:44 Dose: 650 mg Acetaminophen/Codeine Phosphate (Tylenol/Codeine 300 Mg/30 Mg) 1 tab PEG Q8 PRN PRN Reason: Pain, moderate (4-7) Last Admin: 01/20/18 06:29 Dose: 1 tab Al Hydrox/Mg Hydrox/Simethicone (Maalox Plus 30 Ml) 30 ml PEG Q8 PRN PRN Reason: Indigestion / Heartburn Last Admin: 01/07/18 18:08 Dose: 30 ml Albuterol/Ipratropium (Duoneb 3 Mg/0.5 Mg (3 Ml) Ud) 3 ml INH RTID [facility] Last Admin: 01/20/18 07:46 Dose: 3 ml Bismuth Subsalicylate (Pepto-Bismol) 524 mg PEG Q4 PRN PRN Reason: Diarrhea Last Admin: 01/15/18 13:15 Dose: 524 mg Dimethicone (Proshield Plus Skin Protectant) 1 applic TOP Q8 [facility] Last Admin: 01/20/18 09:13 Dose: 1 applic Gabapentin (Neurontin) 100 mg PEG Q8 ODETTE Last Admin: 01/20/18 09:12 Dose: 100 mg Vancomycin HCl 750 mg/ Sodium (Chloride) 250 mls @ 166.667 mls/hr IVPB Q12@0100 ,1300 ODETTE PRN Reason: Protocol Fluconazole (Diflucan Iv 200 Mg/100 Ml Ns) 100 mls @ 100 mls/hr IVPB DAILY [facility] PRN Reason: Protocol Last Admin: 01/20/18 09:09 Dose: 100 mls/hr Vancomycin HCl 750 mg/ Sodium (Chloride) 250 mls @ 250 mls/hr IVPB DAILY [facility] PRN Reason: Protocol Last Admin: 01/20/18 09:50 Dose: 250 mls/hr Levetiracetam (Keppra) 500 mg PEG Q12 [facility] Last Admin: 01/20/18 09:12 Dose: 500 mg Magnesium Oxide (Mag-Ox) 400 mg PO DAILY [facility] Last Admin: 01/20/18 11:19 Dose: 400 mg Nystatin (Nystop Topical Powder) 1 applic TOP TID [facility] Last Admin: 01/20/18 09:13 Dose: 1 applic Ondansetron HCl (Zofran Inj) 4 mg IVP Q6 PRN PRN Reason: Nausea/Vomiting Last Admin: 01/15/18 17:59 Dose: 4 mg Pantoprazole Sodium (Protonix Susp) 40 mg PEG DAILY [facility] Last Admin: 01/20/18 09:13 Dose: 40 mg Rivaroxaban (Xarelto) 20 mg PO QPM [facility] PRN Reason: Protocol Last Admin: 01/19/18 18:03 Dose: 20 mg Sertraline HCl (Zoloft) 25 mg PO HS [facility] Last Admin: 01/19/18 21:50 Dose: 25 mg - Labs Labs: 01/19/18 11:46 01/20/18 06:56 - Constitutional Appears: Chronically Ill - Head Exam Head Exam: NORMAL INSPECTION - Eye Exam Eye Exam: PERRL - ENT Exam ENT Exam: Normal Exam - Neck Exam Additional comments: tracheostomy, PMV, O2 TC - Respiratory Exam Respiratory Exam: Decreased Breath Sounds (at bases) - Cardiovascular Exam Cardiovascular Exam: REGULAR RHYTHM - GI/Abdominal Exam GI & Abdominal Exam: Soft, Normal Bowel Sounds Additional comments: PEG - Exam Additional comments: [place] Cath - Extremities Exam Extremities Exam: Normal Inspection - Back Exam Additional comments: Sacral area excoriated with opened areas - Neurological Exam Neurological Exam: Alert Additional comments: alert , follows commands, L hemiparesia, L hand contracted Assessment and Plan (1) Tracheostomy status Status: Chronic (2) COPD (chronic obstructive pulmonary disease) Status: Acute (3) CVA (cerebral vascular accident) Status: Acute (4) PEG (percutaneous endoscopic gastrostomy) status Status: Acute - Assessment and Plan (Free Text) Plan: tolerating well PMV, O2 TC, refuses suctioning trough Tracheostomy, tolerating well Purred diet thicken fluids, CT Chest minimal changes , linear scar superior segment RLL, at this moment there is a plan to DD Patient in am. She is treated for UTI with Vanco via PICC line, Patient still requires aspiration of Pulmonary secretions, atempt to DC Tracheostomy should be defered. Patient will require elective AD to ICU , ENT or Surgical , and Anesthesia at bedside
--- NOTE | 2018-01-20 13:30 | CT ---
Date of service: 01/20/2018 PROCEDURE: CT Chest without contrast HISTORY: Tracheostomy status,COPD COMPARISON: None available. TECHNIQUE: Contiguous axial images were obtained through the chest without intravenous contrast enhancement. Sagittal and coronal reconstructions were performed. Radiation dose (DLP): 284.01 mGy-cm. This CT exam was performed using one or more of the following dose reduction techniques: Automated exposure control, adjustment of the mA and/or kV according to patient size, and/or use of iterative reconstruction technique. FINDINGS: LUNGS: No infiltrate. Linear scar in superior segment right lower lobe, pleural no pulmonary mass. MEDIASTINUM: Unremarkable thoracic aorta. No aneurysm. Normal sized heart. Main pulmonary artery unremarkable. No vascular congestion. No lymphadenopathy. Tracheostomy tube noted cervical/upper thoracic trachea. PLEURA: No pleural fluid. No pneumothorax. BONES: No fracture. No destructive lesion. UPPER ABDOMEN: Grossly unremarkable. OTHER FINDINGS: None. IMPRESSION: Unremarkable non-contrast enhanced CT of the chest.
[2018-01-20 23:44] VITALS: O2SAT 98
[2018-01-21] MEDS: Albuterol-Ipratrop 3 mg / 0.5 (3 ml) UD INH SCH (07:49)
[2018-01-21] MEDS: Fluconazole IV 200mg/100 ml NS 100 ML IVPB SCH (08:17)
[2018-01-21 08:28] VITALS: BP 94/69; PULSE 96; RESP 20; TEMP 97.9
[2018-01-21] MEDS: levETIRAcetam 100 mg/ml (5ml) Oral Syringe PEG SCH (09:50)
[2018-01-21] MEDS: Pantoprazole 40 mg Susp UD PEG SCH (09:51)
[2018-01-21] MEDS: Proshield Plus GEL TOP SCH ×2 (09:51)
[2018-01-21] MEDS: Magnesium Oxide 400 mg Tab UD PO SCH (09:51)
[2018-01-21] MEDS: Acetaminophen-Codeine 300/30 mg Tab PEG PRN (10:34)
--- NOTE | 2018-01-21 11:58 | PN ---
Copied To: Jeferson Martel MD Attending MD: Jeferson Martel MD DATE: 01/21/2018 SUBJECTIVE: The patient is seen and examined. Interim events noted. The patient remains in regular medical floor. The patient completed antibiotic, for possible discharge today. The patient feels okay. Denies any specific complaint. No chest pain. No shortness of breath. PHYSICAL EXAMINATION: GENERAL: The patient is with tracheostomy tube. Tolerating current setting without any acute distress. VITAL SIGNS: Stable. HEART: S1 and S2. Normal and regular. LUNGS: Good bilateral air exchange. ABDOMEN: Soft, nontender. G-tube is in good position and functioning. EXTREMITIES: No edema. No calf swelling. No tenderness. No acute ischemia. 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 DIAGNOSTIC DATA: Available diagnostic data reviewed. ASSESSMENT AND PLAN: Overall, the patient's general medical condition is stable. The patient is for discharge today. Plan as ordered. Case and plan discussed with the patient. Discharge instructions were given. Jeferson Martel MD
--- NOTE | 2018-01-23 08:49 | PN ---
Copied To: Jeferson Martel MD Attending MD: Jeferson Martel MD DATE: 01/14/2018 SUBJECTIVE: The patient is seen and examined. Interim events noted. The patient remains in regular medical floor, on IV antibiotic. The patient is awake, responsive. Feels okay. Denies any specific complaints of pain. PHYSICAL EXAMINATION: GENERAL: The patient is no acute distress. VITAL SIGNS: Stable. HEART: S1 and S2, normal and regular. LUNGS: Good bilateral air exchange. ABDOMEN: Soft, nontender. EXTREMITIES: No edema. No calf swelling. No tenderness. No acute ischemia. 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 Tracheostomy and PEG tube is in good position and functioning. Tracheostomy is without any complication and functioning fine. DIAGNOSTIC DATA: Available diagnostic data reviewed. ASSESSMENT AND PLAN: Overall, the patient's general medical condition is stable. Plan as ordered. Jeferson Martel MD
== END 2018-01-21 13:21 | disposition home health service (06) | DRG 698 ==
LOC: H.ER 16:41 → H.ERHOLD 19:13 → H.TEL 22:10 → H.MEDSURG1 01-11 14:24
PROVIDERS: ADMIT Internal Medicine; ATTEND Internal Medicine
PROC: 3E0G76Z Introduction of Nutritional Substance into Upper GI, Via Natural or Artificial Opening (ICD-10-PCS; 2018-01-03)
PROC: 05HY33Z Insertion of Infusion Device into Upper Vein, Percutaneous Approach (ICD-10-PCS; principal; 2018-01-09)
PROC: 3E03329 Introduction of Other Anti-infective into Peripheral Vein, Percutaneous Approach (ICD-10-PCS; 2018-01-09)
DX: T83.511A Infection and inflammatory reaction due to indwelling urethral catheter, initial encounter (principal); A41.81 Sepsis due to Enterococcus; N39.0 Urinary tract infection, site not specified; I69.354 Hemiplegia and hemiparesis following cerebral infarction affecting left non-dominant side; B96.4 Proteus (mirabilis) (morganii) as the cause of diseases classified elsewhere; E87.6 Hypokalemia; L89.152 Pressure ulcer of sacral region, stage 2; L89.322 Pressure ulcer of left buttock, stage 2; L89.312 Pressure ulcer of right buttock, stage 2; I12.9 Hypertensive chronic kidney disease with stage 1 through stage 4 chronic kidney disease, or unspecified chronic kidney disease; N18.9 Chronic kidney disease, unspecified; J44.9 Chronic obstructive pulmonary disease, unspecified; B96.5 Pseudomonas (aeruginosa) (mallei) (pseudomallei) as the cause of diseases classified elsewhere; Y84.6 Urinary catheterization as the cause of abnormal reaction of the patient, or of later complication, without mention of misadventure at the time of the procedure; Z93.0 Tracheostomy status; Z93.1 Gastrostomy status; Z96.651 Presence of right artificial knee joint; Z86.711 Personal history of pulmonary embolism; Z87.01 Personal history of pneumonia (recurrent); Z85.41 Personal history of malignant neoplasm of cervix uteri; Z85.43 Personal history of malignant neoplasm of ovary; Z79.01 Long term (current) use of anticoagulants; Z88.0 Allergy status to penicillin; Z90.710 Acquired absence of both cervix and uterus; Z90.49 Acquired absence of other specified parts of digestive tract; Z92.21 Personal history of antineoplastic chemotherapy

== ENCOUNTER 2018-03-13 23:07 | Emergency (ER) | payer MEDICARE ==
[2018-03-13 23:08] VITALS: BMI 29.9
[2018-03-13 23:30] VITALS: O2SAT 97
[2018-03-14] MEDS ORDERED: Lidocaine/Epi 1% 1:100000 20 ML IJ ONE (00:15)
[2018-03-14] MEDS ORDERED: Lidocaine PF 2% (5 ml) Inj (For Cardiac Arrhy) ONE (00:24)
[2018-03-14] MEDS ORDERED: Morphine 4 MG/ML VIAL IM STA (01:48)
[2018-03-14] MEDS ORDERED: Morphine 4 MG/ML VIAL ONE (01:50)
--- NOTE | 2018-03-14 03:27 | ED PDOC ---
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 Patient's states she may have a urinary tract infection because of cloudy urine in her castillo bag. No further medical complaints. Past Medical History Reviewed: Historical Data, Nursing Documentation, Vital Signs Vital Signs: Last Vital Signs Temp 99.5 F 03/13/18 23:27 Pulse 132 H 03/13/18 23:27 Resp 18 03/13/18 23:27 BP 113/82 03/13/18 23:27 Pulse Ox 97 03/13/18 23:27 - Medical History PMH: Gastritis, HTN, Malignancy (cervical cancer (remission since 2014)), Pneumonia, Pulmonary Embolism, Chronic Kidney Disease Denies: HIV - Surgical History Surgical History: Appendectomy, Cholecystectomy - Family History Family History: States: Unknown Family Hx - Home Medications Home Medications: Ambulatory Orders Medication Instructions Recorded Aluminum Hydroxide/Magnesium H 30 ml PEG Q8 PRN 01/03/18 [Maalox 30 ml] Clotrimazole/Betamethasone 1 appl TOP BID 01/03/18 [Lotrisone] Docusate [Colace LIQUID] 100 mg PEG DAILY 01/03/18 Gabapentin [Neurontin] 100 mg PEG Q8 01/03/18 Magnesium Oxide [Magox 400] 400 mg PEG BID 01/03/18 Metoprolol Tartrate [Lopressor] 25 mg PEG Q12 01/03/18 Nystatin [Mycostatin Cream] 1 appl TOP BID 01/03/18 Omeprazole 20 mg PEG DAILY 01/03/18 Rivaroxaban [Xarelto] 20 mg PEG QPM 01/03/18 Sertraline [Zoloft] 25 mg PO HS 01/03/18 Zinc Oxide [Desitin Original] 1 appl TOP DAILY 01/03/18 levETIRAcetam [Keppra] 500 mg PEG Q12 01/03/18 Levofloxacin [Levaquin] 750 mg PO DAILY 10 Days #10 tablet 03/14/18 - Allergies Allergies/Adverse Reactions: Allergies Allergy/AdvReac Type Severity Reaction Status Date / Time cimetidine [From Tagamet] Allergy RASH Verified 03/13/18 23:27 nickel Allergy RASH Verified 03/13/18 23:27 Penicillins Allergy RASH Verified 03/13/18 23:27 Review of Systems ROS Statement: Except As Marked, All Systems Reviewed And Found Negative ENT: Positive for: Other (tracheostomy removed) Genitourinary Female: Positive for: Other (cloudy urine) Physical Exam - Reviewed Nursing Documentation Reviewed: Yes Vital Signs Reviewed: Yes - Physical Exam Appears: Positive for: Non-toxic (chronically ill appearing). Negative for: Well Head Exam: Positive for: ATRAUMATIC, NORMAL INSPECTION, NORMOCEPHALIC Skin: Positive for: Normal Color, Warm, DRY Eye Exam: Positive for: EOMI, Normal appearance, PERRL ENT: Positive for: Normal ENT Inspection Neck: Positive for: Normal, Painless ROM Cardiovascular/Chest: Positive for: Regular Rate, Rhythm Respiratory: Positive for: Other (transmitted sounds) Gastrointestinal/Abdominal: Positive for: Normal Exam, Soft Back: Positive for: Normal Inspection Extremity: Positive for: Normal ROM Neurologic/Psych: Positive for: Alert, Oriented - ECG O2 Sat by Pulse Oximetry: 97 (RA) Pulse Ox Interpretation: Normal Medical Decision Making Medical Decision Making: Time: 23:42 A/P: dislodged tracheostomy tube, trach replaced with 4.0 shiley, will check urine for UTI --Urine dipstick --Lidocaine 10 ml IJ --Morphine 4 mg IM --Toradol 30 mg IM 400 HR 102 Patient appearing well No signs of sepsis Will treat for UTI with levoquin Advised followup with PMD will call decaler today to arrange followup Scribe Attestation: Documented by Katherine Huang, acting as a scribe for Kun Paalcios MD. Provider Scribe Attestation: All medical record entries made by the Scribe were at my direction and personally dictated by me. I have reviewed the chart and agree that the record accurately reflects my personal performance of the history, physical exam, medical decision making, and the department course for this patient. I have also personally directed, reviewed, and agree with the discharge instructions and disposition. Disposition - Clinical Impression Clinical Impression: UTI (urinary tract infection), Tracheostomy care - Patient ED Disposition Is Patient to be Admitted: No - Disposition Referrals: [facility] [Outside] Disposition: Routine/Home Disposition Time: 04:00 Condition: IMPROVED Prescriptions: Levofloxacin [Levaquin] 750 mg PO DAILY 10 Days #10 tablet Instructions: Urinary Tract Infections in Adults, How to Care for a Tracheostomy Forms: [facility] ([place])
[2018-03-14] MEDS ORDERED: levoFLOXacin 750 MG TAB PO STA (04:00)
[2018-03-14 07:30] VITALS: BP 112/72; PULSE 66; RESP 26; TEMP 97.7
== END 2018-03-14 04:45 | disposition home or self-care (01) ==
LOC: H.ER 23:07
DX: Z43.0 Encounter for attention to tracheostomy (principal); N39.0 Urinary tract infection, site not specified
CPT/HCPCS: 96372; 99282; J1885; J2270

== ENCOUNTER 2018-03-27 14:00 | Observation (INO) | payer MEDICARE ==
[2018-03-27 14:01] VITALS: BMI 29.9
--- NOTE | 2018-03-27 15:06 | ED PDOC ---
HPI: General Adult Time Seen by Provider: 03/27/18 14:45 Chief Complaint (Nursing): GI Problem Chief Complaint (Provider): "tracheostomy came out" History Per: Patient, Family History/Exam Limitations: no limitations Have you had recent travel within the past 21 days to any of the following countries: [place], [place], [place] or [place]?: No Severity: None Additional Complaint(s): 52yo female had indwelling trach and PEG for almost 1 year s/p sepsis, now home and had tracheostomy shiley come out today. Seen here approx 2 weeks ago also displaced trach, shiley downgraded from 6 to 4. Now has no distress, no SOB, no cough. Eating and drinking on own, not using PEG tube. She wishes for trach to remain out. Past Medical History Reviewed: Historical Data, Nursing Documentation, Vital Signs Vital Signs: Last Vital Signs Temp 97.9 F 03/27/18 14:04 Pulse 84 03/27/18 14:04 Resp 18 03/27/18 14:04 BP 108/59 L 03/27/18 14:04 Pulse Ox 99 03/27/18 14:04 - Medical History PMH: Gastritis, HTN, Malignancy (cervical cancer (remission since 2014)), Pneumonia, Pulmonary Embolism, Chronic Kidney Disease Denies: HIV Other PMH: sepsis - Surgical History Surgical History: Appendectomy, Cholecystectomy Other surgeries: trach/PEG - Family History Family History: States: Unknown Family Hx - Living Arrangements Living Arrangements: With Family - Social History Current smoker - smoking cessation education provided: No - Home Medications Home Medications: Ambulatory Orders Medication Instructions Recorded Gabapentin [Neurontin] 100 mg PEG Q8 01/03/18 Magnesium Oxide [Magox 400] 400 mg PEG BID 01/03/18 Metoprolol Tartrate [Lopressor] 25 mg PEG Q12 01/03/18 Omeprazole 20 mg PEG DAILY 01/03/18 Sertraline [Zoloft] 25 mg PO HS 01/03/18 levETIRAcetam [Keppra] 500 mg PEG Q12 01/03/18 Silver Sulfadiazine 1% 20 gm 1 appl TOP BID 03/27/18 [Silvadene 1% 20 gm] - Allergies Allergies/Adverse Reactions: Allergies Allergy/AdvReac Type Severity Reaction Status Date / Time cimetidine [From Tagamet] Allergy RASH Verified 03/13/18 23:27 nickel Allergy RASH Verified 03/13/18 23:27 Penicillins Allergy RASH Verified 03/13/18 23:27 Review of Systems Constitutional: Negative for: Fever Cardiovascular: Negative for: Chest Pain Respiratory: Negative for: Cough, Shortness of Breath Gastrointestinal: Negative for: Abdominal Pain Genitourinary Female: Negative for: Dysuria Skin: Negative for: Rash Neurological: Negative for: Weakness, Numbness Physical Exam - Reviewed Nursing Documentation Reviewed: Yes Vital Signs Reviewed: Yes - Physical Exam Appears: Positive for: Well, Non-toxic, No Acute Distress Head Exam: Positive for: ATRAUMATIC, NORMAL INSPECTION, NORMOCEPHALIC Skin: Positive for: Normal Color, Warm, DRY Eye Exam: Positive for: EOMI, Normal appearance, PERRL ENT: Positive for: Normal ENT Inspection Neck: Positive for: Painless ROM, Trachea Midline (trach site clean, stoma small without secretions, subcutaneous emphysema or erythema) Cardiovascular/Chest: Positive for: Regular Rate, Rhythm Respiratory: Positive for: CNT, Normal Breath Sounds Gastrointestinal/Abdominal: Positive for: Soft, Other (PEG) Back: Positive for: Normal Inspection Extremity: Positive for: Normal ROM Neurologic/Psych: Positive for: Alert, Oriented - Laboratory Results Result Diagrams: 03/27/18 15:43 03/27/18 15:43 - ECG O2 Sat by Pulse Oximetry: 99 - Radiology X-Ray: Read By Radiologist X-Ray Interpretation: No Acute Disease Medical Decision Making Medical Decision Making: d/w Dr Chantal olivera and Dr Vick ENT, rec CT neck and chest, obs on pulse ox for 23hrs if remains stable trach can likely stay out. Admit Dr Adams for obs. PMD Yovany Nixon Per ENT environmental studies faculty member Dr Vick recommends surgeon who performed trach to followup for closure/clearance. vice president payment contacted to research performing surgeon from 2017. Patient in no distress, CT performed endorsed Dr Christianson to followup results, if any obstruction shiley to be replaced. Otherwise admitted Obs Dr Adams for airway monitoring. labs reviewed, WBC 12, otherwise clinically unremarkable Disposition - Clinical Impression Clinical Impression: Complication of tracheostomy tube - Patient ED Disposition Is Patient to be Admitted: Yes - Disposition Disposition Time: 15:03 Condition: FAIR - Pt Status Changed To: Hospital Disposition Of: Observation
[2018-03-27 15:50] LABS: BASO # 0.1 K/uL (0.0-0.2); BASO % 0.5 % (0.0-2.0); EOS # 0.1 K/uL (0.0-0.7); HEMOGLOBIN 12.3 g/dL (12.0-16.0); LYMPH # 1.1 K/uL (1.0-4.3); LYMPH % 8.6 % (20.0-40.0); MEAN CELL VOLUME 92.3 fl (81.0-99.0); MEAN CORPUSCULAR HEMOGLOBIN 30.3 pg (27.0-31.0); MEAN CORPUSCULAR HGB CONC 32.8 g/dL (33.0-37.0); MEAN PLATELET VOLUME 6.7 fl (7.2-11.7); MONO # 1.5 K/uL (0.0-0.8); MONO % 12.2 % (0.0-10.0); NEUT # 9.8 K/uL (1.8-7.0); NEUT % 77.7 % (50.0-75.0); PLATELET COUNT 321 K/uL (130-400); RBC 4.07 Mil/uL (3.80-5.20); RED CELL DISTRIBUTION WIDTH 15.1 % (11.5-14.5); WHITE BLOOD COUNT 12.6 K/uL (4.8-10.8)
--- NOTE | 2018-03-27 15:59 | RAD ---
Date of service: 03/27/2018 HISTORY: pulled trach out COMPARISON: 01/03/2018 FINDINGS: LUNGS: No active pulmonary disease. Scarring in the right upper lobe remains stable PLEURA: No significant pleural effusion identified, no pneumothorax apparent. CARDIOVASCULAR: No atherosclerotic calcification present No radiographic findings to suggest acute or significant cardiovascular disease. OSSEOUS STRUCTURES: No significant abnormalities. VISUALIZED UPPER ABDOMEN: Normal. OTHER FINDINGS: Removal of support apparatus since the prior study: Tracheostomy device identified on the prior study. IMPRESSION: No active disease. No significant interval change compared to the prior examination(s).
--- NOTE | 2018-03-27 16:06 | CP.PCM.CON ---
History of Present Illness - History of Present Illness History of Present Illness: Surgery: Dr. Caldera CC: Displaced Trach HPI: 52F w. pmh of trach and PEG 1 yr ago for respiratory failure 2/2 sepsis presents with displaced trach. Trach was displaced 2 weeks ago, and pt presented to ED where 6 shiley was downgraded to a 4 shiley without any issue. Trach became displaced again today. Pt was seen resting comfortably in ED. She has no SOB, no cough, no CP/palpitations. She would like for the trach to stay out. She is also inquiring about removal of PEG. She is tolerating PO diet without any problems. PMH: HTN, DM, CVA w. R side deficits, IN PSH: Ex-lap, trach, PEG Meds: MAR reviewed ALL: PCN, cimetidine Social: No ETOH/Tobacco/Drugs Fhx: non-contributory Review of Systems - Review of Systems All systems: reviewed and no additional remarkable complaints except Past Patient History - Past Medical History & Family History Past Medical History?: Yes - Past Social History Smoking Status: Never Smoked - CARDIAC Hx Hypertension: Yes - PULMONARY Hx Pneumonia: Yes Hx Pulmonary Embolism: Yes - NEUROLOGICAL HX Cerebrovascular Accident: Yes - HEENT Hx HEENT Problems: No - RENAL Hx Chronic Kidney Disease: Yes - ENDOCRINE/METABOLIC Hx Endocrine Disorders: No - HEMATOLOGICAL/ONCOLOGICAL Hx Human Immunodeficiency Virus (HIV): No - INTEGUMENTARY Hx Dermatological Problems: Yes Other/Comment: Sacral excoriations - MUSCULOSKELETAL/RHEUMATOLOGICAL Hx Musculoskeletal Disorders: No Hx Falls: No - GASTROINTESTINAL Hx Gastritis: Yes - GENITOURINARY/GYNECOLOGICAL Hx Genitourinary Disorders: Yes Hx Cervical Cancer: Yes Hx Ovarian Cancer: Yes Hx Urinary Tract Infection: Yes - PSYCHIATRIC Hx Psychophysiologic Disorder: No Hx Substance Use: No - SURGICAL HISTORY Hx Appendectomy: Yes Hx Cholecystectomy: Yes - ANESTHESIA Hx Anesthesia: Yes Hx Anesthesia Reactions: No Meds Allergies/Adverse Reactions: Allergies Allergy/AdvReac Type Severity Reaction Status Date / Time cimetidine [From Tagamet] Allergy RASH Verified 03/13/18 23:27 nickel Allergy RASH Verified 03/13/18 23:27 Penicillins Allergy RASH Verified 03/13/18 23:27 Physical Exam - Constitutional Appears: Non-toxic, No Acute Distress - Head Exam Head Exam: ATRAUMATIC, NORMOCEPHALIC - Eye Exam Eye Exam: EOMI - ENT Exam ENT Exam: Mucous Membranes Moist - Neck Exam Neck exam: Positive for: Full Rom Additional comments: Tracheostomy w. slight erythema around stoma - Respiratory Exam Respiratory Exam: NORMAL BREATHING PATTERN. absent: Accessory Muscle Use, Respiratory Distress - GI/Abdominal Exam GI & Abdominal Exam: Soft. absent: Distended, Firm, Guarding, Rebound, Rigid, Tenderness Additional comments: PEG in place - Extremities Exam Extremities exam: Negative for: calf tenderness, pedal edema - Neurological Exam Neurological exam: Alert, Oriented x3 - Psychiatric Exam Psychiatric exam: Normal Affect, Normal Mood Results - Vital Signs Recent Vital Signs: Last Vital Signs Temp 97.9 F 03/27/18 14:04 Pulse 84 03/27/18 14:04 Resp 18 03/27/18 14:04 BP 108/59 L 03/27/18 14:04 Pulse Ox 99 03/27/18 15:07 - Labs Result Diagrams: 03/27/18 15:43 03/27/18 15:43 Labs: Laboratory Results - last 24 hr 03/27/18 15:43 WBC 12.6 H RBC 4.07 Hgb 12.3 D Hct 37.6 MCV 92.3 D MCH 30.3 MCHC 32.8 L RDW 15.1 H Plt Count 321 MPV 6.7 L Neut % (Auto) 77.7 H Lymph % (Auto) 8.6 L [place] % (Auto) 12.2 H Eos % (Auto) 1.0 Baso % (Auto) 0.5 Neut # (Auto) 9.8 H Lymph # (Auto) 1.1 [place] # (Auto) 1.5 H Eos # (Auto) 0.1 Baso # (Auto) 0.1 Assessment & Plan - Assessment and Plan (Free Text) Assessment: 52F w. displaced Trach -Pt is in no respiratory distress and satting appropriately -trach can stay out for now, will monitor O2 sat for 24hrs, trach can stay out if O2 stays WNL -PEG was placed by Dr. Nixon 05/09/17, recommend re-consulting for possible removal of PEG -d/w attending Devon PGY4
[2018-03-27 16:14] LABS: BLOOD UREA NITROGEN 18 mg/dl (7-17); CALCIUM 10.2 mg/dL (8.4-10.2); GFR NON-AFRICAN AMERICAN > 60
[2018-03-27 16:46] LABS: ALB/GLOB RATIO 0.8 (1.0-2.1); ALBUMIN 3.9 g/dL (3.5-5.0); ALT/SGPT 14 U/L (9-52); AST/SGOT 48 U/L (14-36)
[2018-03-27 17:49] LABS: BANDS 2 % (0-2); BASOPHIL 1 % (0-2); EOSINOPHIL 1 % (0-7); LYMPHOCYTE 10 % (20-50); MONOCYTE 12 % (0-10); NEUTROPHIL 74 % (42-75); TOTAL CELLS COUNTED 100
[2018-03-27 17:50] LABS: PLATELET ESTIMATE NORMAL (NORMAL)
[2018-03-27 17:51] LABS: ANISOCYTOSIS SLIGHT; HYPOCHROMIC SLIGHT
--- NOTE | 2018-03-27 18:24 | CT ---
Date of service: 03/27/2018 PROCEDURE: CT Neck, Chest, without intravenous contrast HISTORY: s/p trach removal r/o obstruction COMPARISON: None available. 01/20/2018 TECHNIQUE: Unenhanced study. Intravenous contrast was not administered. Radiation dose: Total exam DLP = 556.73 mGy-cm. This CT exam was performed using one or more of the following dose reduction techniques: Automated exposure control, adjustment of the mA and/or kV according to patient size, and/or use of iterative reconstruction technique. FINDINGS: CT OF THE NECK: PHARYNX: Nasopharynx: Unremarkable. Oropharnx: Unremarkable. Hypopharynx: Unremarkable. At the surgical site with a tracheostomy previously existed there is soft tissue mass/secretions extending from the skin surface to the thyroid cartilage. No obstructing lesion identified proximally. No evidence of occlusion distally. LYMPH NODES: Unremarkable. VASCULATURE: Unremarkable. GLANDS: Unremarkable. CERVICAL SPINE: Unremarkable. Other Findings CT OF THE CHEST: LUNGS: Linear scarring superior segment right lower lobe. No suspicious pulmonary nodules, masses or infiltrates. MEDIASTINUM: Unremarkable thoracic aorta. No aneurysm or dissection. Normal sized heart. Pulmonary arterial truck unremarkable. No vascular congestion. No lymphadenopathy. PLEURA: No pleural fluid. No pneumothorax. BONES: No fracture. No destructive lesion. OTHER FINDINGS: Nonobstructing calculi upper pole left kidney. Parapelvic cyst or portions of distended collecting system right kidney. IMPRESSION: Focal asymmetry at the tracheostomy site and underlying thyroid cartilage. Clear airway above and below the tracheostomy site. Additional benign and/or incidental findings described above. Stable findings in the thorax.
[2018-03-27] MEDS: Pantoprazole 40 mg EC Tab PO SCH (22:54)
--- NOTE | 2018-03-28 08:06 | CP.PCM.PN ---
Subjective - Date & Time of Evaluation Date of Evaluation: 03/28/18 Time of Evaluation: 08:02 - Subjective Subjective: Surgery: Dr. Caldera Pt seen and examined. No acute overnight events. Pt states she had no difficulty breathing overnight and was comfortable without the trach. She denies other complaints at this time. Tolerating a diet by mouth. Denies fevers/chills. Objective - Vital Signs/Intake and Output Vital Signs (last 24 hours): Temp Pulse Resp BP Pulse Ox 99.1 F 95 H 18 105/74 96 03/28/18 05:07 03/28/18 05:07 03/28/18 05:07 03/28/18 05:07 03/28/18 05:07 Intake and Output: 03/28/18 03/28/18 06:59 18:59 Intake Total 300 Output Total 600 Balance -300 - Medications Medications: Current Medications Gabapentin (Neurontin) 100 mg PO Q8 [facility] Last Admin: 03/28/18 00:25 Dose: 100 mg Levetiracetam (Keppra) 500 mg PO Q12 [facility] Last Admin: 03/27/18 21:45 Dose: 500 mg Magnesium Oxide (Mag-Ox) 400 mg PO BID [facility] Metoprolol Tartrate (Lopressor) 25 mg PO Q12 [facility] Last Admin: 03/27/18 22:55 Dose: 25 mg Nystatin (Nystop Topical Powder) 1 applic TOP TID [facility] Nystatin (Nystop Topical Powder) 1 applic TOP ONCE ONE Stop: 03/28/18 21:41 Pantoprazole Sodium (Protonix Ec Tab) 40 mg PO DAILY [facility] Last Admin: 03/27/18 22:54 Dose: 40 mg Sertraline HCl (Zoloft) 25 mg PO HS [facility] Last Admin: 03/27/18 21:45 Dose: 25 mg - Labs Labs: 03/27/18 15:43 03/27/18 15:43 - Constitutional Appears: Well, No Acute Distress - Head Exam Head Exam: ATRAUMATIC, NORMOCEPHALIC - ENT Exam ENT Exam: Mucous Membranes Moist - Respiratory Exam Respiratory Exam: NORMAL BREATHING PATTERN - Cardiovascular Exam Cardiovascular Exam: RRR - GI/Abdominal Exam GI & Abdominal Exam: Soft. absent: Tenderness - Neurological Exam Neurological Exam: Alert, Awake, Oriented x3 Assessment and Plan - Assessment and Plan (Free Text) Assessment: 52F s/p tracheostomy tube removal Plan: - pt no longer requires the trach tube - PEG tube placed by GI; f/u their recs for removal - ok to DC from surgical standpoint - d/w Dr. Werner Camacho
[2018-03-28] MEDS ORDERED: Magnesium Oxide 400 mg Tab UD PO SCH (09:00)
[2018-03-28] MEDS ORDERED: Pantoprazole 40 mg Susp UD PEG SCH (09:00)
[2018-03-28] MEDS ORDERED: Magnesium Oxide 400 mg Tab UD PEG SCH (09:00)
[2018-03-28] MEDS: Pantoprazole 40 mg EC Tab PO SCH (09:01)
--- NOTE | 2018-03-28 10:17 | CP.PCM.CON ---
History of Present Illness - History of Present Illness History of Present Illness: GI Fellow PGY5 Consult Note This is a 52F w. pmh of HTN, DM, CVA w. R side deficits, GA, trach and PEG 1 yr ago for respiratory failure 2/2 sepsis presented to ER with displaced trach. Pt was seen by surgery and would she does not want her Trach replaced. Her oxygen level is being monitored. GI was consulted to pull PEG. Pt and her reports she is eating all her meals by mouth and have not used Peg in a very long time. Pt had the PEG placed 04/[address] Nixon. ROS: A 12pt ROS was negative except as above. PMH: As stated in HPI PSH: Ex-lap, trach, PEG Shx: No ETOH/Tobacco/Drugs FHx: Neg for colon cancer Past Patient History - Past Medical History & Family History Past Medical History?: Yes - Past Social History Smoking Status: Former Smoker - CARDIAC Hx Cardiac Disorders: Yes Hx Hypertension: Yes - PULMONARY Hx Respiratory Disorders: Yes Hx Pneumonia: Yes Hx Pulmonary Embolism: Yes - NEUROLOGICAL Hx Neurological Disorder: Yes HX Cerebrovascular Accident: Yes - HEENT Hx HEENT Problems: Yes - RENAL Hx Chronic Kidney Disease: Yes - ENDOCRINE/METABOLIC Hx Endocrine Disorders: No - HEMATOLOGICAL/ONCOLOGICAL Hx Blood Disorders: No Hx Human Immunodeficiency Virus (HIV): No - INTEGUMENTARY Hx Dermatological Problems: Yes Other/Comment: Sacral,buttocks excoriations - MUSCULOSKELETAL/RHEUMATOLOGICAL Hx Musculoskeletal Disorders: No Hx Falls: No - GASTROINTESTINAL Hx Gastrointestinal Disorders: Yes Hx Gastritis: Yes - GENITOURINARY/GYNECOLOGICAL Hx Genitourinary Disorders: Yes Hx Cervical Cancer: Yes Hx Ovarian Cancer: Yes Hx Urinary Tract Infection: Yes - PSYCHIATRIC Hx Psychophysiologic Disorder: No Hx Substance Use: No - SURGICAL HISTORY Hx Surgeries: Yes Hx Cholecystectomy: Yes Hx Hysterectomy: Yes Other/Comment: peg tube placement,trach placement - ANESTHESIA Hx Anesthesia: Yes Hx Anesthesia Reactions: No Hx Malignant Hyperthermia: No Has any member of the family had a problem w/ anesthesia?: No Meds Allergies/Adverse Reactions: Allergies Allergy/AdvReac Type Severity Reaction Status Date / Time cimetidine [From Tagamet] Allergy RASH Verified 03/13/18 23:27 nickel Allergy RASH Verified 03/13/18 23:27 Penicillins Allergy RASH Verified 03/13/18 23:27 - Medications Medications: Current Medications Gabapentin (Neurontin) 100 mg PO Q8 [facility] Last Admin: 03/28/18 09:01 Dose: 100 mg Levetiracetam (Keppra) 500 mg PO Q12 [facility] Last Admin: 03/28/18 08:56 Dose: 500 mg Magnesium Oxide (Mag-Ox) 400 mg PO BID [facility] Last Admin: 03/28/18 09:00 Dose: 400 mg Metoprolol Tartrate (Lopressor) 25 mg PO Q12 [facility] Last Admin: 03/28/18 08:56 Dose: 25 mg Nystatin (Nystop Topical Powder) 1 applic TOP TID [facility] Last Admin: 03/28/18 09:01 Dose: Not Given Nystatin (Nystop Topical Powder) 1 applic TOP ONCE ONE Stop: 03/28/18 21:41 Pantoprazole Sodium (Protonix Ec Tab) 40 mg PO DAILY [facility] Last Admin: 03/28/18 09:01 Dose: 40 mg Sertraline HCl (Zoloft) 25 mg PO HS [facility] Last Admin: 03/27/18 21:45 Dose: 25 mg Physical Exam - Constitutional Appears: Non-toxic, No Acute Distress, Chronically Ill - Head Exam Head Exam: ATRAUMATIC, NORMAL INSPECTION, NORMOCEPHALIC - Eye Exam Eye Exam: EOMI, Normal appearance, PERRL Pupil Exam: PERRL - ENT Exam ENT Exam: Mucous Membranes Moist Additional comments: trach scar - Respiratory Exam Respiratory Exam: Clear to Auscultation Bilateral, NORMAL BREATHING PATTERN - Cardiovascular Exam Cardiovascular Exam: RRR, +S1, +S2 - GI/Abdominal Exam GI & Abdominal Exam: Normal Bowel Sounds, Soft. absent: Distended, Firm, Guarding, Tenderness Additional comments: surgical scars PEG tube - Rectal Exam Rectal Exam: Deferred - Extremities Exam Extremities exam: Positive for: full ROM, normal inspection - Neurological Exam Neurological exam: Alert, Oriented x3 - Psychiatric Exam Psychiatric exam: Normal Affect, Normal Mood - Skin Skin Exam: Dry, Intact, Normal Color, Warm Results - Vital Signs Recent Vital Signs: Last Vital Signs Temp 98.3 F 03/28/18 08:13 Pulse 97 H 03/28/18 08:56 Resp 18 03/28/18 08:13 BP 113/84 03/28/18 08:56 Pulse Ox 97 03/28/18 08:13 - Labs Result Diagrams: 03/27/18 15:43 03/27/18 15:43 Labs: Laboratory Results - last 24 hr 03/27/18 03/27/18 15:43 15:43 WBC 12.6 H RBC 4.07 Hgb 12.3 D Hct 37.6 MCV 92.3 D MCH 30.3 MCHC 32.8 L RDW 15.1 H Plt Count 321 MPV 6.7 L Neut % (Auto) 77.7 H Lymph % (Auto) 8.6 L [place] % (Auto) 12.2 H Eos % (Auto) 1.0 Baso % (Auto) 0.5 Neut # (Auto) 9.8 H Lymph # (Auto) 1.1 [place] # (Auto) 1.5 H Eos # (Auto) 0.1 Baso # (Auto) 0.1 Neutrophils % (Manual) 74 Band Neutrophils % 2 Lymphocytes % (Manual) 10 L Monocytes % (Manual) 12 H Eosinophils % (Manual) 1 Basophils % (Manual) 1 Platelet Estimate Normal Hypochromasia (manual) Slight Anisocytosis (manual) Slight Sodium 140 Potassium 5.0 Chloride 105 Carbon Dioxide 26 Anion Gap 14 BUN 18 H Creatinine 0.7 Est GFR ( Amer) > 60 Est GFR (Non-Af Amer) > 60 Random Glucose 93 Calcium 10.2 Total Bilirubin 0.7 AST 48 H D ALT 14 Alkaline Phosphatase 67 Total Protein 8.4 H Albumin 3.9 Globulin 4.5 H Albumin/Globulin Ratio 0.8 L Assessment & Plan - Assessment and Plan (Free Text) Assessment: 1. PEG removal Plan: -Continue supportive care -Pt tolerating regular diet by mouth -PEG not used in a very long time -PEG removed at bedside successfully -Keep site covered with light dressing -Further medical management per primary team -Please call with any questions or concerns
[2018-03-28 11:00] LABS: BLOOD UREA NITROGEN 18 mg/dl (7-17); CALCIUM 10.2 mg/dL (8.4-10.2); GFR NON-AFRICAN AMERICAN > 60
[2018-03-28 11:05] LABS: HEMOGLOBIN 12.3 g/dL (12.0-16.0); MEAN CELL VOLUME 93.4 fl (81.0-99.0); MEAN CORPUSCULAR HEMOGLOBIN 30.6 pg (27.0-31.0); MEAN CORPUSCULAR HGB CONC 32.8 g/dL (33.0-37.0); RBC 4.01 Mil/uL (3.80-5.20); RED CELL DISTRIBUTION WIDTH 14.7 % (11.5-14.5); WHITE BLOOD COUNT 9.8 K/uL (4.8-10.8)
[2018-03-28] MEDS ORDERED: Proshield Plus GEL TOP SCH (11:15)
[2018-03-28] MEDS ORDERED: Potassium Chloride 20 mEq/15 ml LIQ UD PO ONE (12:00)
--- NOTE | 2018-03-28 12:09 | CP.PCM.HP ---
Past Patient History - Past Medical History & Family History Past Medical History?: Yes - Past Social History Smoking Status: Former Smoker - CARDIAC Hx Cardiac Disorders: Yes Hx Hypertension: Yes - PULMONARY Hx Respiratory Disorders: Yes Hx Pneumonia: Yes Hx Pulmonary Embolism: Yes - NEUROLOGICAL Hx Neurological Disorder: Yes HX Cerebrovascular Accident: Yes - HEENT Hx HEENT Problems: Yes - RENAL Hx Chronic Kidney Disease: Yes - ENDOCRINE/METABOLIC Hx Endocrine Disorders: No - HEMATOLOGICAL/ONCOLOGICAL Hx Blood Disorders: No Hx Human Immunodeficiency Virus (HIV): No - INTEGUMENTARY Hx Dermatological Problems: Yes Other/Comment: Sacral,buttocks excoriations - MUSCULOSKELETAL/RHEUMATOLOGICAL Hx Musculoskeletal Disorders: No Hx Falls: No - GASTROINTESTINAL Hx Gastrointestinal Disorders: Yes Hx Gastritis: Yes - GENITOURINARY/GYNECOLOGICAL Hx Genitourinary Disorders: Yes Hx Cervical Cancer: Yes Hx Ovarian Cancer: Yes Hx Urinary Tract Infection: Yes - PSYCHIATRIC Hx Psychophysiologic Disorder: No Hx Substance Use: No - SURGICAL HISTORY Hx Surgeries: Yes Hx Cholecystectomy: Yes Hx Hysterectomy: Yes Other/Comment: peg tube placement,trach placement - ANESTHESIA Hx Anesthesia: Yes Hx Anesthesia Reactions: No Hx Malignant Hyperthermia: No Has any member of the family had a problem w/ anesthesia?: No Meds Home Medications: Home Medication List Medication Instructions Recorded Confirmed Type Dimethicone [Proshield Plus Skin 1 applic TOP Q8 #1 gel 03/28/18 Rx Protectant] Gabapentin [Neurontin] 100 mg PO Q8 #0 03/28/18 03/27/18 Rx Magnesium Oxide [Magox 400] 400 mg PO BID #0 03/28/18 03/27/18 Rx Metoprolol Tartrate [Lopressor] 25 mg PO Q12 #0 03/28/18 03/27/18 Rx Nystatin [Nystop Topical Powder] 1 applic TOP TID #1 bottle 03/28/18 Rx Omeprazole 20 mg PO DAILY #0 03/28/18 03/27/18 Rx Allergies/Adverse Reactions: Allergies Allergy/AdvReac Type Severity Reaction Status Date / Time cimetidine [From [facility]] Allergy RASH Verified 03/13/18 23:27 nickel Allergy RASH Verified 03/13/18 23:27 Penicillins Allergy RASH Verified 03/13/18 23:27 Results - Vital Signs Recent Vital Signs: Last Vital Signs Temp 98.3 F 03/28/18 08:13 Pulse 97 H 03/28/18 09:00 Resp 18 03/28/18 08:13 BP 113/84 03/28/18 09:00 Pulse Ox 97 03/28/18 08:13 - Labs Result Diagrams: 03/28/18 10:32 03/28/18 10:32 Labs: Laboratory Results - last 24 hr 03/27/18 03/27/18 03/28/18 15:43 15:43 10:32 WBC 12.6 H 9.8 RBC 4.07 4.01 Hgb 12.3 D 12.3 Hct 37.6 37.4 MCV 92.3 D 93.4 MCH 30.3 30.6 MCHC 32.8 L 32.8 L RDW 15.1 H 14.7 H Plt Count 321 306 MPV 6.7 L Neut % (Auto) 77.7 H Lymph % (Auto) 8.6 L [place] % (Auto) 12.2 H Eos % (Auto) 1.0 Baso % (Auto) 0.5 Neut # (Auto) 9.8 H Lymph # (Auto) 1.1 [place] # (Auto) 1.5 H Eos # (Auto) 0.1 Baso # (Auto) 0.1 Neutrophils % (Manual) 74 Band Neutrophils % 2 Lymphocytes % (Manual) 10 L Monocytes % (Manual) 12 H Eosinophils % (Manual) 1 Basophils % (Manual) 1 Platelet Estimate Normal Hypochromasia (manual) Slight Anisocytosis (manual) Slight Sodium 140 Potassium 5.0 Chloride 105 Carbon Dioxide 26 Anion Gap 14 BUN 18 H Creatinine 0.7 Est GFR ( Amer) > 60 Est GFR (Non-Af Amer) > 60 Random Glucose 93 Calcium 10.2 Total Bilirubin 0.7 AST 48 H D ALT 14 Alkaline Phosphatase 67 Total Protein 8.4 H Albumin 3.9 Globulin 4.5 H Albumin/Globulin Ratio 0.8 L 03/28/18 10:32 WBC RBC Hgb Hct MCV MCH MCHC RDW Plt Count MPV Neut % (Auto) Lymph % (Auto) [place] % (Auto) Eos % (Auto) Baso % (Auto) Neut # (Auto) Lymph # (Auto) [place] # (Auto) Eos # (Auto) Baso # (Auto) Neutrophils % (Manual) Band Neutrophils % Lymphocytes % (Manual) Monocytes % (Manual) Eosinophils % (Manual) Basophils % (Manual) Platelet Estimate Hypochromasia (manual) Anisocytosis (manual) Sodium 138 Potassium 3.2 L Chloride 106 Carbon Dioxide 23 Anion Gap 12 BUN 18 H Creatinine 0.7 Est GFR ( Amer) > 60 Est GFR (Non-Af Amer) > 60 Random Glucose 163 H Calcium 10.2 Total Bilirubin AST ALT Alkaline Phosphatase Total Protein Albumin Globulin Albumin/Globulin Ratio
--- NOTE | 2018-03-28 14:16 | CP.PCM.CON ---
History of Present Illness - History of Present Illness History of Present Illness: Pulmonary consult for a 52 y/o F, with mulriple chronic medical condition, including Hx CVA, COPD, PE, Respiraory failure, Status Tracheotomy/ PEG tube, Pt was brought via EMS to ER [facility] on 03/27/18 due to Trach fell out on DOA, also erythema around PEG tube, that was taking out by GI. Worsening symptoms: Pt bedridden, unclear speech 2nd to Hx CVA. No SOB, no ARIAS but intermittent productive cough with clear phlegms. Aggravated factor: Unable to answer questions, movements. No: fever, chills, abdominal pain, CP, palpitations, syncope, SOB, urinary symptoms, sick contact, recent travel out of [facility]. CXR: No active disease. Chest CT: Clear airway. Review of Systems - Review of Systems Systems not reviewed;Unavailable: Acuity of Condition, Other (unable to answer questions) Past Patient History - Past Medical History & Family History Past Medical History?: Yes - Past Social History Smoking Status: Former Smoker Alcohol: None Drugs: Denies Home Situation {Lives}: With Family - CARDIAC Hx Cardiac Disorders: Yes Hx Hypertension: Yes - PULMONARY Hx Respiratory Disorders: Yes Hx Chronic Obstructive Pulmonary Disease (COPD): Yes Hx Pneumonia: Yes Hx Pulmonary Embolism: Yes Other/Comment: Hx respiratory Failure, Intubated. Tracheostomy. - NEUROLOGICAL Hx Neurological Disorder: Yes HX Cerebrovascular Accident: Yes - HEENT Hx HEENT Problems: Yes (wear eyeglasses) - RENAL Hx Chronic Kidney Disease: Yes Other/Comment: Hydronephrosis, R uereteral stent and removal (01-27-17). MICHAEL obs tructive. Uropathy (02-16-17) - ENDOCRINE/METABOLIC Hx Endocrine Disorders: No - HEMATOLOGICAL/ONCOLOGICAL Hx Blood Disorders: Yes Hx Cancer: Yes Hx Human Immunodeficiency Virus (HIV): No - INTEGUMENTARY Hx Dermatological Problems: Yes Other/Comment: Sacral,buttocks excoriations - MUSCULOSKELETAL/RHEUMATOLOGICAL Hx Musculoskeletal Disorders: No Hx Falls: No - GASTROINTESTINAL Hx Gastrointestinal Disorders: Yes Hx Bowel Surgery: Yes Hx Fatty Liver Disease: Yes Hx Gastritis: Yes Other/Comment: Small bowel enteritis - GENITOURINARY/GYNECOLOGICAL Hx Genitourinary Disorders: Yes Hx Cervical Cancer: Yes Hx Hematuria: Yes Hx Incontinence: Yes Hx Ovarian Cancer: Yes Hx Urinary Tract Infection: Yes - PSYCHIATRIC Hx Psychophysiologic Disorder: No Hx Substance Use: No - SURGICAL HISTORY Hx Surgeries: Yes Hx Cholecystectomy: Yes Hx Hysterectomy: Yes Other/Comment: peg tube placement,trach placement. RODRIGO,BSO, Laparotomy, R Ureteral stent, IVC filter. - ANESTHESIA Hx Anesthesia: Yes Hx Anesthesia Reactions: No Hx Malignant Hyperthermia: No Has any member of the family had a problem w/ anesthesia?: No Meds Home Medications: Home Medication List Medication Instructions Recorded Confirmed Type Albuterol/Ipratropium [Duoneb 3 3 ml IH TID #90 neb 03/28/18 Rx MG/3 Ml-0.5 MG/3 Ml 3 Ml] Dimethicone [Proshield Plus Skin 1 applic TOP Q8 #1 gel 03/28/18 Rx Protectant] Gabapentin [Neurontin] 100 mg PO Q8 #0 03/28/18 03/27/18 Rx Magnesium Oxide [Magox 400] 400 mg PO BID #0 03/28/18 03/27/18 Rx Meclizine [Meclizine*] 25 mg PO Q12 #20 tab 03/28/18 Rx Metoprolol Tartrate [Lopressor] 25 mg PO Q12 #0 03/28/18 03/27/18 Rx Nystatin [Nystop Topical Powder] 1 applic TOP TID #1 bottle 03/28/18 Rx Omeprazole 20 mg PO DAILY #0 03/28/18 03/27/18 Rx Allergies/Adverse Reactions: Allergies Allergy/AdvReac Type Severity Reaction Status Date / Time cimetidine [From [facility]] Allergy RASH Verified 03/13/18 23:27 nickel Allergy RASH Verified 03/13/18 23:27 Penicillins Allergy RASH Verified 03/13/18 23:27 - Medications Medications: Current Medications Dimethicone (Proshield Plus Skin Protectant) 1 applic TOP Q8 [facility] Last Admin: 03/28/18 13:39 Dose: 1 applic Gabapentin (Neurontin) 100 mg PO Q8 [facility] Last Admin: 03/28/18 09:01 Dose: 100 mg Levetiracetam (Keppra) 500 mg PO Q12 [facility] Last Admin: 03/28/18 08:56 Dose: 500 mg Magnesium Oxide (Mag-Ox) 400 mg PO BID [facility] Last Admin: 03/28/18 09:00 Dose: 400 mg Metoprolol Tartrate (Lopressor) 25 mg PO Q12 [facility] Last Admin: 03/28/18 08:56 Dose: 25 mg Nystatin (Nystop Topical Powder) 1 applic TOP TID [facility] Last Admin: 03/28/18 12:43 Dose: 1 applic Pantoprazole Sodium (Protonix Ec Tab) 40 mg PO DAILY [facility] Last Admin: 03/28/18 09:01 Dose: 40 mg Sertraline HCl (Zoloft) 25 mg PO HS [facility] Last Admin: 03/27/18 21:45 Dose: 25 mg Physical Exam - Constitutional Appears: Chronically Ill - Head Exam Head Exam: NORMAL INSPECTION - Eye Exam Eye Exam: PERRL - ENT Exam ENT Exam: Normal Exam - Neck Exam Additional comments: Tracheotomy stoma closed - Respiratory Exam Respiratory Exam: NORMAL BREATHING PATTERN - Cardiovascular Exam Cardiovascular Exam: REGULAR RHYTHM - GI/Abdominal Exam GI & Abdominal Exam: Soft Additional comments: PEG Tube removed, dressing in the site. - Exam Additional comments: Catheter in place - Extremities Exam Additional comments: L heel with Purple/Maroon area. L hand contracted - Back Exam Additional comments: Sacral/Buttocks with maceration/erythema - Neurological Exam Neurological exam: Alert Additional comments: L hemiparesia. - Skin Skin Exam: Warm Results - Vital Signs Recent Vital Signs: Last Vital Signs Temp 98.4 F 03/28/18 12:35 Pulse 90 03/28/18 12:35 Resp 18 03/28/18 12:35 BP 111/79 03/28/18 12:35 Pulse Ox 97 03/28/18 12:35 reviewed Yu - Labs Result Diagrams: 03/28/18 10:32 03/28/18 10:32 Labs: Laboratory Results - last 24 hr 03/27/18 03/27/18 03/28/18 15:43 15:43 10:32 WBC 12.6 H 9.8 RBC 4.07 4.01 Hgb 12.3 D 12.3 Hct 37.6 37.4 MCV 92.3 D 93.4 MCH 30.3 30.6 MCHC 32.8 L 32.8 L RDW 15.1 H 14.7 H Plt Count 321 306 MPV 6.7 L Neut % (Auto) 77.7 H Lymph % (Auto) 8.6 L [place] % (Auto) 12.2 H Eos % (Auto) 1.0 Baso % (Auto) 0.5 Neut # (Auto) 9.8 H Lymph # (Auto) 1.1 [place] # (Auto) 1.5 H Eos # (Auto) 0.1 Baso # (Auto) 0.1 Neutrophils % (Manual) 74 Band Neutrophils % 2 Lymphocytes % (Manual) 10 L Monocytes % (Manual) 12 H Eosinophils % (Manual) 1 Basophils % (Manual) 1 Platelet Estimate Normal Hypochromasia (manual) Slight Anisocytosis (manual) Slight Sodium 140 Potassium 5.0 Chloride 105 Carbon Dioxide 26 Anion Gap 14 BUN 18 H Creatinine 0.7 Est GFR ( Amer) > 60 Est GFR (Non-Af Amer) > 60 Random Glucose 93 Calcium 10.2 Total Bilirubin 0.7 AST 48 H D ALT 14 Alkaline Phosphatase 67 Total Protein 8.4 H Albumin 3.9 Globulin 4.5 H Albumin/Globulin Ratio 0.8 L 03/28/18 10:32 WBC RBC Hgb Hct MCV MCH MCHC RDW Plt Count MPV Neut % (Auto) Lymph % (Auto) [place] % (Auto) Eos % (Auto) Baso % (Auto) Neut # (Auto) Lymph # (Auto) [place] # (Auto) Eos # (Auto) Baso # (Auto) Neutrophils % (Manual) Band Neutrophils % Lymphocytes % (Manual) Monocytes % (Manual) Eosinophils % (Manual) Basophils % (Manual) Platelet Estimate Hypochromasia (manual) Anisocytosis (manual) Sodium 138 Potassium 3.2 L Chloride 106 Carbon Dioxide 23 Anion Gap 12 BUN 18 H Creatinine 0.7 Est GFR ( Amer) > 60 Est GFR (Non-Af Amer) > 60 Random Glucose 163 H Calcium 10.2 Total Bilirubin AST ALT Alkaline Phosphatase Total Protein Albumin Globulin Albumin/Globulin Ratio reviewed J.P. - Imaging and Cardiology CT scan - chest Status: Report reviewed by me (J.P.) Chest x-ray Status: Report reviewed by me (J.P.) Assessment & Plan (1) Complication of tracheostomy tube Status: Acute Priority: High Comment: Tracheotomy stoma closed (2) COPD (chronic obstructive pulmonary disease) Status: Chronic Priority: Medium - Assessment and Plan (Free Text) Plan: Pt improved, clear for discharge, resume home medication, Duoneb and rest of Tx. - Date & Time Date: 03/28/18
[2018-03-28 16:22] VITALS: BP 102/69; PULSE 94; RESP 16; TEMP 99; O2SAT 98
== END 2018-03-28 16:50 | disposition home health service (06) ==
LOC: H.ER 14:00 → H.ERHOLD 15:03 → H.TEL 18:05
PROVIDERS: ADMIT Internal Medicine; ATTEND Internal Medicine
DX: J95.09 Other tracheostomy complication (principal); I69.323 Fluency disorder following cerebral infarction; I12.9 Hypertensive chronic kidney disease with stage 1 through stage 4 chronic kidney disease, or unspecified chronic kidney disease; N18.9 Chronic kidney disease, unspecified; E11.22 Type 2 diabetes mellitus with diabetic chronic kidney disease; K29.70 Gastritis, unspecified, without bleeding; J44.9 Chronic obstructive pulmonary disease, unspecified; Z85.43 Personal history of malignant neoplasm of ovary; Z85.41 Personal history of malignant neoplasm of cervix uteri; Z86.711 Personal history of pulmonary embolism; Z87.01 Personal history of pneumonia (recurrent); Z88.0 Allergy status to penicillin; Z74.01 Bed confinement status; Z87.09 Personal history of other diseases of the respiratory system; Z87.891 Personal history of nicotine dependence; Z90.49 Acquired absence of other specified parts of digestive tract; Z90.710 Acquired absence of both cervix and uterus
CPT/HCPCS: 36415; 70490; 71045; 71250; 80048; 80053; 85025; 85027; 99281; G0378

== ENCOUNTER 2018-06-10 22:28 | Inpatient (IN) | payer MEDICARE ==
[2018-06-10 22:29] VITALS: BMI 29.9
[2018-06-10] MEDS ORDERED: Iohexol 240 (50 ml) PO ONE (22:49)
[2018-06-10] MEDS ORDERED: Sodium Chloride 0.9% 1,000 ML IV STA (22:50)
--- NOTE | 2018-06-10 23:45 | ED PDOC ---
HPI: Abdomen Time Seen by Provider: 06/10/18 22:40 Chief Complaint (Nursing): Dizziness/Lightheaded Chief Complaint (Provider): Dizziness/Lightheaded History Per: Patient History/Exam Limitations: no limitations Onset/Duration Of Symptoms: Hrs (x3) Location Of Pain/Discomfort: LLQ Associated Symptoms: Nausea. denies: Fever, Vomiting Additional Complaint(s): 52 y/o female with history of CVA, HTN, and cervical cancer, presents to the ED complaining of LLQ abdominal pain, onset around 20:00. Patient reports nausea without vomiting or fever. Patient states she just finished a course of Levoquin for UTI. Patient has indwelling Overton catheter and is s/p removal of tracheostomy and removal of peg tube. Patient additionally reports having di zziness today. Past Medical History Reviewed: Historical Data, Nursing Documentation, Vital Signs Vital Signs: Last Vital Signs Temp 98.7 F 06/10/18 22:34 Pulse 126 H 06/10/18 22:58 Resp 23 06/10/18 22:58 BP 91/58 L 06/10/18 22:58 Pulse Ox 96 06/10/18 22:58 - Medical History PMH: COPD, CVA, Gastritis, HTN, Malignancy (cervical cancer (remission since 2014)), Pneumonia, Pulmonary Embolism, Chronic Kidney Disease Denies: HIV - Surgical History Surgical History: Appendectomy, Cholecystectomy - Family History Family History: States: Unknown Family Hx - Home Medications Home Medications: Ambulatory Orders Medication Instructions Recorded Sertraline [Zoloft] 25 mg PO HS 01/03/18 levETIRAcetam [Keppra] 500 mg PEG Q12 01/03/18 Silver Sulfadiazine 1% 20 gm 1 appl TOP BID 03/27/18 [Silvadene 1% 20 gm] Albuterol/Ipratropium [Duoneb 3 3 ml IH TID #90 neb 03/28/18 MG/3 Ml-0.5 MG/3 Ml 3 Ml] Dimethicone [Proshield Plus Skin 1 applic TOP Q8 #1 gel 03/28/18 Protectant] Gabapentin [Neurontin] 100 mg PO Q8 #0 03/28/18 Magnesium Oxide [Magox 400] 400 mg PO BID #0 03/28/18 Meclizine [Meclizine*] 25 mg PO Q12 #20 tab 03/28/18 Metoprolol Tartrate [Lopressor] 25 mg PO Q12 #0 03/28/18 Nystatin [Nystop Topical Powder] 1 applic TOP TID #1 bottle 03/28/18 Omeprazole 20 mg PO DAILY #0 03/28/18 - Allergies Allergies/Adverse Reactions: Allergies Allergy/AdvReac Type Severity Reaction Status Date / Time cimetidine [From Tagamet] Allergy RASH Verified 06/10/18 22:34 nickel Allergy RASH Verified 06/10/18 22:34 Penicillins Allergy RASH Verified 06/10/18 22:34 Review of Systems ROS Statement: Except As Marked, All Systems Reviewed And Found Negative Constitutional: Negative for: Fever Gastrointestinal: Positive for: Nausea, Abdominal Pain. Negative for: Vomiting Physical Exam - Reviewed Nursing Documentation Reviewed: Yes Vital Signs Reviewed: Yes - Physical Exam Appears: Negative for: Well (Chronically ill appearing) Head Exam: Positive for: ATRAUMATIC, NORMOCEPHALIC Skin: Positive for: Normal Color, Warm, Dry Eye Exam: Positive for: EOMI, Normal appearance, PERRL ENT: Positive for: Other (Hoarseness of voice) Cardiovascular/Chest: Positive for: Regular Rate, Rhythm. Negative for: Murmur Respiratory: Positive for: Normal Breath Sounds. Negative for: Respiratory Distress Gastrointestinal/Abdominal: Positive for: Tenderness (LLQ) Extremity: Positive for: Other (Contracted on left side of body). Negative for: Pedal Edema, Deformity Neurologic/Psych: Positive for: Alert, Oriented. Negative for: Motor/Sensory Deficits - Laboratory Results Result Diagrams: 06/11/18 01:10 06/11/18 01:10 - ECG O2 Sat by Pulse Oximetry: 96 (RA) Pulse Ox Interpretation: Normal Medical Decision Making Medical Decision Making: Time: 22:49 Initial Impression: 52 y/o female with history of CVA, HTN, and cervical cancer with abomdinal pain. Concern for possible colitis vs diverticulitis vs. pylonephritis. Initial Plan: * VBG * CT Abd * BMP * Liver profile * CBC w/ diff * IV Fluids * Omnipaque 50 ml * Toradol 15 mg * Zofran 4 mg * Urine culture * UA Multiple attempts at IV's were made without success Sterile L IJ attempted but unable to cannulate vein due to scarring, patient was unable to position for R IJ and patient is incontinent, making femoral central line unfeasible 24 G IV placed by in R hand, cultures drawn from butterfly on L hand CT SCAN OF THE ABDOMEN AND PELVIS WITHOUT ORAL OR IV CONTRAST. CLINICAL INDICATION: History of cervical cancer. Left lower quadrant pain. TECHNIQUE: Axial and reformatted sagittal and coronal images of the abdomen pelvis obtained without IV contrast administration. Oral contrast is noted. COMPARISON: 01/06/2018. FINDINGS: Interval appearance of atelectatic airspace disease in the right lower lobe. Associated pneumonia needs to be evaluated clinically. Increased bilateral hydroureteronephrosis which is moderate to severe on both sides on the current exam. Bilateral nonobstructing, unchanged renal stones ranging in size between 3 and 9 mm. Prior cholecystectomy. Hysterectomy. Pelvic thickening/adhesions are unchanged. Uncomplicated colonic diverticulosis, unchanged. Overton catheter balloon is seen in the bladder. Diffuse thickening of the sigmoid colon, unchanged. Underdistention, spasm versus mild colitis. Normal unenhanced liver. Nondilated extrahepatic biliary system. Normal unenhanced spleen. Normal pancreas. Normal bilateral adrenal glands. Normal size of the right kidney. There is no right renal mass. Normal size of the left kidney. There is no left renal mass. Normal visualized stomach. Normal small intestine. There is no demonstrated peritoneal fluid. Normal abdominal aorta. Again is noted filter in the inferior vena cava. Normal retroperitoneum. Catheterized, underdistended urinary bladder. There is no pelvic mass lesion or lymphadenopathy. There is no pelvic fluid. Surgical changes of anterior abdominal wall. Osteopenia and moderate diffuse spondylosis. IMPRESSION: Interval appearance of atelectatic airspace disease in the right lower lobe. Associated developing pneumonia needs to be evaluated clinically. Increased bilateral hydroureteronephrosis which is moderate to severe on both sides on the current exam. Bilateral nonobstructing, unchanged renal stones ranging in size between 3 and 9 mm. Prior cholecystectomy. Hysterectomy. Pelvic thickening/adhesions are unchanged. Uncomplicated colonic diverticulosis, unchanged. Overton catheter balloon is seen in the bladder. Diffuse thickening of the sigmoid colon, unchanged. Underdistention, spasm versus mild colitis. Case discussed with Dr. Floyd Given recent ABx usage and still UTI, will admit for outpatient failure of UTI. Scribe Attestation: Documented by Sunday Oro acting as a scribe for Kun Palacios MD. Provider Scribe Attestation: All medical record entries made by the Scribe were at my direction and personally dictated by me. I have reviewed the chart and agree that the record accurately reflects my personal performance of the history, physical exam, medical decision making, and the department course for this patient. I have also personally directed, reviewed, and agree with the discharge instructions and disposition. Disposition - Clinical Impression Clinical Impression: UTI (urinary tract infection) - Patient ED Disposition Is Patient to be Admitted: Yes - Disposition Disposition Time: 06:00 Condition: FAIR Forms: [employer] (Faroese)
[2018-06-11 01:22] LABS: VENOUS BLOOD GAS PCO2 43 mmHg (40-60); VENOUS BLOOD GAS PO2 35 mm/Hg (30-55); VENOUS BLOOD PH 7.38 (7.32-7.43)
[2018-06-11 01:36] LABS: BASO % 0.3 % (0.0-2.0); EOS # 0.2 K/uL (0.0-0.7); EOS % 1.2 % (0.0-4.0); HEMOGLOBIN 12.8 g/dL (12.0-16.0); LYMPH # 1.2 K/uL (1.0-4.3); LYMPH % 6.4 % (20.0-40.0); MEAN CELL VOLUME 88.9 fl (81.0-99.0); MEAN CORPUSCULAR HGB CONC 33.8 g/dL (33.0-37.0); MEAN PLATELET VOLUME 7.4 fl (7.2-11.7); MONO # 1.9 K/uL (0.0-0.8); MONO % 10.6 % (0.0-10.0); NEUT # 14.7 K/uL (1.8-7.0); NEUT % 81.5 % (50.0-75.0); NRBC % 0.1 % (0.0-0.0); PLATELET COUNT 331 K/uL (130-400); RBC 4.28 Mil/uL (3.80-5.20); RED CELL DISTRIBUTION WIDTH 15.1 % (11.5-14.5)
[2018-06-11 01:53] LABS: ALB/GLOB RATIO 0.9 (1.0-2.1); ALBUMIN 4.1 g/dL (3.5-5.0); BILIRUBIN,DIRECT 0.4 mg/ml (0.0-0.4); BLOOD UREA NITROGEN 30 mg/dl (7-17); CALCIUM 10.4 mg/dL (8.4-10.2); GFR NON-AFRICAN AMERICAN > 60
[2018-06-11 01:54] LABS: ALT/SGPT 35 U/L (9-52); AST/SGOT 59 U/L (14-36)
[2018-06-11] MEDS ORDERED: Oxycodone/Acetaminophen 5/325 mg Tab ONE ×2 (02:49→06:38)
[2018-06-11] MEDS ORDERED: Iohexol 240 (50 ml) ONE (02:49)
[2018-06-11 02:50] LABS: SQUAMOUS EPITHIAL 2 /hpf (0-5); URINE BACTERIA MANY (<OCC); URINE BILIRUBIN NEGATIVE (NEGATIVE); URINE BLOOD MODERATE (NEGATIVE); URINE CLARITY TURBID (Clear); URINE COLOR AMBER (YELLOW); URINE GLUCOSE (UA) NEG (NEGATIVE); URINE LEUKOCYTE ESTERASE LARGE Leu/uL (Negative); URINE PROTEIN 100 mg/dL (NEGATIVE); URINE UROBILINOGEN 0.2-1.0 mg/dL (0.2-1.0); WBC CLUMPS MOD /hpf
[2018-06-11] MEDS ORDERED: Oxycodone/Acetaminophen 5/325 mg Tab PO STA ×2 (03:02→06:51)
[2018-06-11 03:10] LABS: ANISOCYTOSIS SLIGHT; BANDS 1 % (0-2); EOSINOPHIL 1 % (0-7); LYMPHOCYTE 7 % (20-50); MONOCYTE 11 % (0-10); NEUTROPHIL 79 % (42-75); PLATELET ESTIMATE NORMAL (NORMAL); REACTIVE LYMPHOCYTES 1 % (0-0); TOTAL CELLS COUNTED 100
[2018-06-11 03:11] LABS: LARGE PLATELETS PRESENT
[2018-06-11] MEDS ORDERED: Lidocaine 1% w Epi 1:100,000 Inj ONE (06:01)
[2018-06-11] MEDS ORDERED: Aztreonam 2 GM in Sodium Chloride 0.9% 100 ML IVPB ONE (07:00)
[2018-06-11] MEDS ORDERED: Sodium Chloride 0.9% 1,000 ML IV STA (07:02)
[2018-06-11] MEDS ORDERED: Vancomycin 1 g Inj ONE (07:36)
--- NOTE | 2018-06-11 09:11 | RAD ---
Date of service: 06/11/2018 HISTORY: pneumonia on CT COMPARISON: Portable chest 03/27/2018. FINDINGS: LUNGS: Limited patchy density seen the right perihilar region and possibly posterior to the right hemidiaphragm, better appreciated in prior base sections from abdomen pelvis CT 06/11/2018. Clinically correlate. None is seen at the left. PLEURA: No significant pleural effusion identified, no pneumothorax apparent. CARDIOVASCULAR: No aortic atherosclerotic calcification present. Normal cardiac size. No pulmonary vascular congestion. OSSEOUS STRUCTURES: No significant abnormalities. VISUALIZED UPPER ABDOMEN: Normal. OTHER FINDINGS: None. IMPRESSION: Limited patchy density and underlying fibrosis in the mid inferior right lung zone though not dramatically changed compared prior chest radiograph 03/27/2018. The pattern is only slightly increased. No pulmonary vascular congestion.
[2018-06-11] MEDS ORDERED: Albuterol-Ipratrop 3 mg / 0.5 (3 ml) UD IH SCH (13:00)
[2018-06-11] MEDS: Acetaminophen-Codeine 300/30 mg Tab PO PRN ×2 (16:21→20:33)
[2018-06-11] MEDS: Proshield Plus GEL TOP SCH (16:23)
--- NOTE | 2018-06-11 16:49 | CT ---
Date of service: 06/11/2018 PROCEDURE: CT Abdomen and Pelvis with contrast HISTORY: LLQ pain COMPARISON: Abdomen pelvis CT with contrast 01/03/2018. TECHNIQUE: Helical CT of the abdomen and pelvis was performed following oral contrast administration only. Intravenous contrast was not administered as per referring physician request. Coronal and sagittal reformats were generated. Contrast dose: None Radiation dose: Total exam DLP = 874.58 mGy-cm. This CT exam was performed using one or more of the following dose reduction techniques: Automated exposure control, adjustment of the mA and/or kV according to patient size, and/or use of iterative reconstruction technique. FINDINGS: LOWER THORAX: Linear atelectasis or fibrosis persists in the right lower lobe with some nodularity at the superior segment right lower lobe. Underlying lesion difficult to exclude. LIVER: Unremarkable. No gross lesion or ductal dilatation. GALLBLADDER AND BILE DUCTS: Prior cholecystectomy again evident. PANCREAS: Unremarkable. No gross lesion or ductal dilatation. SPLEEN: Unremarkable. ADRENALS: Unremarkable. No mass. KIDNEYS AND URETERS: Increased left hydronephrosis appreciated with stable appearing right hydronephrosis without definitive radiodense urolithiasis bilaterally. Consider potential urinary bladder mass or distal bilateral ureteral strictures as the etiology. No gross renal mass appreciable bilaterally the lack images contrast limits interpretation of the kidneys. Nonobstructing intrarenal calculi scattered in the bilateral kidneys. VASCULATURE: Inferior vena cava filter in situ once again. Abdominal aorta stable in appearance. No aneurysm formation appreciable. No aortic atherosclerotic calcification or mural plaque present. BOWEL: No bowel obstruction evident. [id number] volume of scattered retained fecal material seen throughout various large-bowel segments with the most at the transverse colon. Prior gastrostomy now removed. APPENDIX: Not identified. PERITONEUM: Unremarkable. No free fluid. No free air. LYMPH NODES: Unremarkable. No enlarged lymph nodes. BLADDER: Overton catheter decompresses urinary bladder. REPRODUCTIVE: Prior hysterectomy evident. BONES: Stable grade 1 spondylolisthesis L4-5 OTHER FINDINGS: None. IMPRESSION: 1. Stable right hydroureteronephrosis with increasing left hydroureteronephrosis presumably on the basis of potential distal bilateral ureteral strictures or urinary bladder mass. Urine bladder is decompressed by Overton catheter. Larger bladder mass not clearly identified. Lack of contrast limits interpretation. Nonobstructing intrarenal calculi scattered in the bilateral kidneys. 2. Prior gastrostomy removed. 3. Prior cholecystectomy evident once again. 4. No bowel obstruction or free intra peritoneal gas. No ascites. 5. Prior IVC filter reiterated as well as prior hysterectomy. 6. Linear atelectasis or fibrosis right lower lobe base with underlying nodule not excluded more superiorly. Follow-up CT with contrast recommended or PET-CT. [facility]:34 a.m..
--- NOTE | 2018-06-11 17:04 | CP.PCM.PN ---
Subjective - Date & Time of Evaluation Date of Evaluation: 06/11/18 Time of Evaluation: 17:00 - Subjective Subjective: I D (INITIAL CONSULT NOTE) EMR REVIEWED ,PATIENT EXAMINED FULL CONSULT TO FOLLOW PENDIG LABS. HAVE STARTED CLINDAMYCIN/TOBRAMYCIN PENDING CULTURE RESULTS Objective - Vital Signs/Intake and Output Vital Signs (last 24 hours): Temp Pulse Resp BP Pulse Ox 98.6 F 109 H 16 107/68 94 L 06/11/18 15:40 06/11/18 15:40 06/11/18 15:40 06/11/18 15:40 06/11/18 15:40 - Medications Medications: Current Medications Acetaminophen/Codeine Phosphate (Tylenol/Codeine 300 Mg/30 Mg) 1 tab PO Q4 PRN PRN Reason: Pain, moderate (4-7) Last Admin: 06/11/18 16:21 Dose: 1 tab Albuterol/Ipratropium (Duoneb 3 Mg/0.5 Mg (3 Ml) Ud) 3 ml IH TID ODETTE Dimethicone (Proshield Plus Skin Protectant) 1 applic TOP Q8 ODETTE Last Admin: 06/11/18 16:23 Dose: 1 applic Enoxaparin Sodium (Lovenox) 40 mg SC DAILY ODETTE; Protocol Gabapentin (Neurontin) 100 mg PO Q8 ODETTE Last Admin: 06/11/18 16:22 Dose: 100 mg Clindamycin Phosphate 600 mg/ (Sodium Chloride) 54 mls @ 54 mls/hr IVPB Q8 ODETTE; Protocol Tobramycin Sulfate 60 mg/ (Sodium Chloride) 101.5 mls @ 100 mls/hr IV Q12H ODETTE; Protocol Meclizine HCl (Antivert) 25 mg PO Q12 ODETTE Metoprolol Tartrate (Lopressor) 25 mg PO Q12 ODETTE Nystatin (Nystop Topical Powder) 1 applic TOP TID ODETTE Last Admin: 06/11/18 16:22 Dose: 1 applic Pantoprazole Sodium (Protonix Ec Tab) 20 mg PO DAILY ODETTE - Labs Labs: 06/11/18 01:10 06/11/18 01:10
[2018-06-11] MEDS ORDERED: Albuterol-Ipratrop 3 mg / 0.5 (3 ml) UD IH PRN (18:40)
--- NOTE | 2018-06-11 22:33 | CARD ---
APPROVED REPORT Date of service: 06/11/2018 EKG Measurement Heart [id number] <Conclusion> Sinus tachycardia Otherwise normal ECG
[2018-06-11] MEDS: Tobramycin inj 60 MG in Sodium Chloride 0.9% 100 ML IV SCH (23:21)
[2018-06-12] MEDS: Acetaminophen-Codeine 300/30 mg Tab PO PRN ×4 (00:33→17:00)
[2018-06-12] MEDS: Proshield Plus GEL TOP SCH ×3 (00:41→16:58)
--- NOTE | 2018-06-12 01:38 | CP.PCM.HP ---
History of Present Illness - History of Present Illness History of Present Illness: This is a 52 y/o female admitted for left lower abdominal pain associated with nausea. She had no fever. She has indwelling catheter. Has a hx of CVA HTn cervical cancer , pulmonary embolism. She was recntly started on Levaquin after evaluation at home by her provider. She was noted to have turbid urine and possibly UTI. Despite med ication however patient started having LLQ pain and noted increasing turbidity of urine, She was brought to Er and was noted to have UTI. Upon admission, she was noted to have elevated WBC 18 . Present on Admission - Present on Admission Any Indicators Present on Admission: No History of DVT/PE: No History of Uncontrolled Diabetes: No Urinary Catheter: Yes Decubitus Ulcer Present: No Past Patient History - Past Medical History & Family History Past Medical History?: Yes - Past Social History Smoking Status: Former Smoker - CARDIAC Hx Hypercholesterolemia: Yes Hx Hypertension: Yes - PULMONARY Hx Chronic Obstructive Pulmonary Disease (COPD): Yes Hx Pneumonia: Yes Hx Pulmonary Embolism: Yes - NEUROLOGICAL Hx Neurological Disorder: Yes HX Cerebrovascular Accident: Yes Hx Paralysis: Yes Hx Transient Ischemic Attacks (TIA): Yes - HEENT Hx HEENT Problems: Yes (wear eyeglasses) - RENAL Hx Chronic Kidney Disease: Yes - ENDOCRINE/METABOLIC Hx Endocrine Disorders: No - HEMATOLOGICAL/ONCOLOGICAL Hx Human Immunodeficiency Virus (HIV): No - INTEGUMENTARY Hx Dermatological Problems: Yes Other/Comment: Sacral,buttocks excoriations - MUSCULOSKELETAL/RHEUMATOLOGICAL Hx Musculoskeletal Disorders: No Hx Falls: No - GASTROINTESTINAL Hx Gastritis: Yes - GENITOURINARY/GYNECOLOGICAL Hx Genitourinary Disorders: Yes Hx Cervical Cancer: Yes Hx Hematuria: Yes Hx Incontinence: Yes Hx Ovarian Cancer: Yes Hx Urinary Tract Infection: Yes - PSYCHIATRIC Hx Psychophysiologic Disorder: Yes Hx Depression: Yes Hx Substance Use: No - SURGICAL HISTORY Hx Appendectomy: Yes Hx Cholecystectomy: Yes - ANESTHESIA Hx Anesthesia: Yes Hx Anesthesia Reactions: No Hx Malignant Hyperthermia: No Meds Allergies/Adverse Reactions: Allergies Allergy/AdvReac Type Severity Reaction Status Date / Time cimetidine [From Tagamet] Allergy RASH Verified 06/10/18 22:34 nickel Allergy RASH Verified 06/10/18 22:34 Penicillins Allergy RASH Verified 06/10/18 22:34 Physical Exam - Head Exam Head Exam: NORMAL INSPECTION - Eye Exam Eye Exam: Normal appearance - ENT Exam ENT Exam: Mucous Membranes Moist - Respiratory Exam Respiratory Exam: Clear to Auscultation Bilateral - Cardiovascular Exam Cardiovascular Exam: Tachycardia - GI/Abdominal Exam GI & Abdominal Exam: Normal Bowel Sounds - Neurological Exam Neurological exam: Alert, Oriented x3 Results - Vital Signs Recent Vital Signs: Last Vital Signs Temp 98.4 F 06/12/18 01:36 Pulse 91 H 06/12/18 01:36 Resp 18 06/12/18 01:36 BP 113/78 06/12/18 01:36 Pulse Ox 95 06/12/18 01:36 - Labs Result Diagrams: 06/12/18 04:30 06/12/18 04:30 Labs: Laboratory Results - last 24 hr 06/10/18 06/11/18 06/11/18 22:57 01:10 01:10 WBC 18.0 H D RBC 4.28 Hgb 12.8 Hct 38.1 MCV 88.9 D MCH 30.0 MCHC 33.8 RDW 15.1 H Plt Count 331 MPV 7.4 Neut % (Auto) 81.5 H Lymph % (Auto) 6.4 L Floyd % (Auto) 10.6 H Eos % (Auto) 1.2 Baso % (Auto) 0.3 Neut # (Auto) 14.7 H Lymph # (Auto) 1.2 Floyd # (Auto) 1.9 H Eos # (Auto) 0.2 Baso # (Auto) 0.0 Neutrophils % (Manual) 79 H Band Neutrophils % 1 Lymphocytes % (Manual) 7 L Reactive Lymphs % 1 H Monocytes % (Manual) 11 H Eosinophils % (Manual) 1 Platelet Estimate Normal Large Platelets Present Anisocytosis (manual) Slight Sodium 137 Potassium 4.3 Chloride 97 L Carbon Dioxide 23 Anion Gap 21 H BUN 30 H Creatinine 0.9 Est GFR ( Amer) > 60 Est GFR (Non-Af Amer) > 60 Random Glucose 115 H Calcium 10.4 H Total Bilirubin 0.5 Direct Bilirubin 0.4 AST 59 H D ALT 35 Alkaline Phosphatase 85 Total Protein 8.7 H Albumin 4.1 Globulin 4.6 H Albumin/Globulin Ratio 0.9 L Urine Color Shraddha Urine Clarity Turbid Urine pH 7.0 Ur Specific [place] 1.016 Urine Protein 100 Urine Glucose (UA) Neg Urine Ketones Negative Urine Blood Moderate Urine Nitrate Negative Urine Bilirubin Negative Urine Urobilinogen 0.2-1.0 Ur Leukocyte Esterase Large Urine RBC (Auto) 175 H Urine WBC Clumps (Auto) Mod H Urine Microscopic WBC 537 H Ur Squamous Epith Cells 2 Urine Bacteria Many H Assessment & Plan (1) UTI (urinary tract infection) Status: Acute (2) Hydronephrosis Status: Acute (3) History of cervical cancer Status: Acute - Assessment and Plan (Free Text) Plan: start IV antibioticsID eval hydrate cont all meds.
[2018-06-12] MEDS: Tobramycin inj 60 MG in Sodium Chloride 0.9% 100 ML IV SCH ×2 (05:25→16:57)
[2018-06-12 05:57] LABS: BLOOD UREA NITROGEN 22 mg/dl (7-17); CALCIUM 9.5 mg/dL (8.4-10.2); GFR NON-AFRICAN AMERICAN > 60
[2018-06-12 07:00] LABS: HEMOGLOBIN 11.9 g/dL (12.0-16.0); MEAN CELL VOLUME 91.5 fl (81.0-99.0); MEAN CORPUSCULAR HEMOGLOBIN 29.7 pg (27.0-31.0); MEAN CORPUSCULAR HGB CONC 32.5 g/dL (33.0-37.0); RBC 4.01 Mil/uL (3.80-5.20); RED CELL DISTRIBUTION WIDTH 14.9 % (11.5-14.5); WHITE BLOOD COUNT 11.2 K/uL (4.8-10.8)
[2018-06-12] MEDS: Enoxaparin 40 mg Syringe SC SCH (08:41)
[2018-06-12] MEDS: Pantoprazole 20 mg EC Tab PO SCH (08:42)
[2018-06-12] MEDS ORDERED: Lidocaine 1% Inj (20ml) ONE (11:41)
--- NOTE | 2018-06-12 12:03 | PCM.SURG1 ---
Surgeon's Initial Post Op Note - Surgeon's Notes Surgeon: Jamil Fuentes MD Continuous Improvement Black Belt: NONE Type of Anesthesia: Local Pre-Operative Diagnosis: Poor venous access Operative Findings: Axillary vein stenosis. Post-Operative Diagnosis: Poor venous access, axilary vein stenosis Operation Performed: Midline picc placed, 15 cm. Tip in axillary vein. Specimen/Specimens Removed: None Estimated Blood Loss: EBL {In ML}: 2 Blood Products Given: N/A Drains Used: No Drains Post-Op Condition: Fair Date of Surgery/Procedure: 06/12/18 Time of Surgery/Procedure: 12:00
[2018-06-12] MEDS: Clindamycin 600mg/50ml D5W 600 MG/50 ML VIAL IVPB SCH (16:57)
[2018-06-13] MEDS: Clindamycin 600mg/50ml D5W 600 MG/50 ML VIAL IVPB SCH ×3 (00:14→17:12)
[2018-06-13] MEDS: Proshield Plus GEL TOP SCH ×3 (00:55→16:39)
[2018-06-13] MEDS: Tobramycin inj 60 MG in Sodium Chloride 0.9% 100 ML IV SCH ×2 (03:52→15:45)
[2018-06-13] MEDS: Enoxaparin 40 mg Syringe SC SCH (08:32)
[2018-06-13] MEDS: Pantoprazole 20 mg EC Tab PO SCH (08:33)
[2018-06-13] MEDS: Lidocaine 5% Patch TD SCH (11:17)
[2018-06-13] MEDS: Acetaminophen-Codeine 300/30 mg Tab PO PRN ×2 (14:33→18:47)
[2018-06-13] MEDS: Menthol/Methyl Salicylate Oinment TOP PRN (20:14)
--- NOTE | 2018-06-13 21:57 | CP.PCM.PN ---
Subjective - Date & Time of Evaluation Date of Evaluation: 06/12/18 Time of Evaluation: 12:00 - Subjective Subjective: Patient remains stable' Noted decrease in WBC Has no fever. Has less pain in the lower abd area. Objective - Vital Signs/Intake and Output Vital Signs (last 24 hours): Temp Pulse Resp BP Pulse Ox 98.6 F 108 H 16 102/70 95 06/13/18 19:07 06/13/18 21:34 06/13/18 19:07 06/13/18 21:34 06/13/18 19:07 Intake and Output: 06/13/18 06/14/18 18:59 06:59 Intake Total 1500 Output Total 1550 Balance -50 - Medications Medications: Current Medications Acetaminophen/Codeine Phosphate (Tylenol/Codeine 300 Mg/30 Mg) 1 tab PO Q4 PRN PRN Reason: Pain, moderate (4-7) Last Admin: 06/13/18 18:47 Dose: 1 tab Albuterol/Ipratropium (Duoneb 3 Mg/0.5 Mg (3 Ml) Ud) 3 ml IH TID PRN PRN Reason: Shortness of Breath Camphor/Menthol (Bengay) 1 applic TOP Q6 PRN PRN Reason: Pain, Mild (1-3) Last Admin: 06/13/18 20:14 Dose: 1 applic Dimethicone (Proshield Plus Skin Protectant) 1 applic TOP Q8 ODETTE Last Admin: 06/13/18 16:39 Dose: 1 applic Docusate Sodium (Colace) 100 mg PO BID PRN PRN Reason: Constipation Last Admin: 06/13/18 16:40 Dose: 100 mg Enoxaparin Sodium (Lovenox) 40 mg SC DAILY ODETTE; Protocol Last Admin: 06/13/18 08:32 Dose: 40 mg Gabapentin (Neurontin) 100 mg PO Q8 ODETTE Last Admin: 06/13/18 16:40 Dose: 100 mg Tobramycin Sulfate 60 mg/ (Sodium Chloride) 101.5 mls @ 100 mls/hr IV Q12H ODETTE; Protocol Last Admin: 06/13/18 15:45 Dose: 100 mls/hr Clindamycin Phosphate (Cleocin) 600 mg in 50 mls @ 50 mls/hr IVPB Q8 ODETTE; Protocol Last Admin: 06/13/18 17:12 Dose: 50 mls/hr Lidocaine (Lidoderm) 1 ea TD DAILY [facility] Last Admin: 06/13/18 11:17 Dose: 1 ea Meclizine HCl (Antivert) 25 mg PO Q12 [facility] Last Admin: 06/13/18 21:33 Dose: 25 mg Metoprolol Tartrate (Lopressor) 25 mg PO Q12 [facility] Last Admin: 06/13/18 21:34 Dose: 25 mg Nystatin (Nystop Topical Powder) 1 applic TOP TID [facility] Last Admin: 06/13/18 16:39 Dose: 1 applic Pantoprazole Sodium (Protonix Ec Tab) 20 mg PO DAILY [facility] Last Admin: 06/13/18 08:33 Dose: 20 mg - Labs Labs: 06/12/18 04:30 06/12/18 04:30 - Head Exam Head Exam: NORMAL INSPECTION - Eye Exam Eye Exam: Normal appearance - ENT Exam ENT Exam: Mucous Membranes Moist - Respiratory Exam Respiratory Exam: Clear to Ausculation Bilateral - Cardiovascular Exam Cardiovascular Exam: REGULAR RHYTHM - GI/Abdominal Exam GI & Abdominal Exam: Normal Bowel Sounds Assessment and Plan (1) UTI (urinary tract infection) Status: Acute (2) Hydronephrosis Status: Acute (3) History of cervical cancer Status: Acute - Assessment and Plan (Free Text) Plan: Cont meds Cont tx Cont Clindamycin
--- NOTE | 2018-06-13 21:59 | CP.PCM.PN ---
Subjective - Date & Time of Evaluation Date of Evaluation: 06/13/18 Time of Evaluation: 11:00 - Subjective Subjective: patient remains stable Has no chest pain or SOB. Objective - Vital Signs/Intake and Output Vital Signs (last 24 hours): Temp Pulse Resp BP Pulse Ox 98.6 F 108 H 16 102/70 95 06/13/18 19:07 06/13/18 21:34 06/13/18 19:07 06/13/18 21:34 06/13/18 19:07 Intake and Output: 06/13/18 06/14/18 18:59 06:59 Intake Total 1500 Output Total 1550 Balance -50 - Medications Medications: Current Medications Acetaminophen/Codeine Phosphate (Tylenol/Codeine 300 Mg/30 Mg) 1 tab PO Q4 PRN PRN Reason: Pain, moderate (4-7) Last Admin: 06/13/18 18:47 Dose: 1 tab Albuterol/Ipratropium (Duoneb 3 Mg/0.5 Mg (3 Ml) Ud) 3 ml IH TID PRN PRN Reason: Shortness of Breath Camphor/Menthol (Bengay) 1 applic TOP Q6 PRN PRN Reason: Pain, Mild (1-3) Last Admin: 06/13/18 20:14 Dose: 1 applic Dimethicone (Proshield Plus Skin Protectant) 1 applic TOP Q8 ODETTE Last Admin: 06/13/18 16:39 Dose: 1 applic Docusate Sodium (Colace) 100 mg PO BID PRN PRN Reason: Constipation Last Admin: 06/13/18 16:40 Dose: 100 mg Enoxaparin Sodium (Lovenox) 40 mg SC DAILY ODETTE; Protocol Last Admin: 06/13/18 08:32 Dose: 40 mg Gabapentin (Neurontin) 100 mg PO Q8 ODETTE Last Admin: 06/13/18 16:40 Dose: 100 mg Tobramycin Sulfate 60 mg/ (Sodium Chloride) 101.5 mls @ 100 mls/hr IV Q12H ODETTE; Protocol Last Admin: 06/13/18 15:45 Dose: 100 mls/hr Clindamycin Phosphate (Cleocin) 600 mg in 50 mls @ 50 mls/hr IVPB Q8 ODETTE; Protocol Last Admin: 06/13/18 17:12 Dose: 50 mls/hr Lidocaine (Lidoderm) 1 ea TD DAILY ODETTE Last Admin: 06/13/18 11:17 Dose: 1 ea Meclizine HCl (Antivert) 25 mg PO Q12 [facility] Last Admin: 06/13/18 21:33 Dose: 25 mg Metoprolol Tartrate (Lopressor) 25 mg PO Q12 [facility] Last Admin: 06/13/18 21:34 Dose: 25 mg Nystatin (Nystop Topical Powder) 1 applic TOP TID [facility] Last Admin: 06/13/18 16:39 Dose: 1 applic Pantoprazole Sodium (Protonix Ec Tab) 20 mg PO DAILY [facility] Last Admin: 06/13/18 08:33 Dose: 20 mg - Labs Labs: 06/12/18 04:30 06/12/18 04:30 - Head Exam Head Exam: NORMAL INSPECTION - Eye Exam Eye Exam: Normal appearance - ENT Exam ENT Exam: Mucous Membranes Moist - Respiratory Exam Respiratory Exam: Clear to Ausculation Bilateral - Cardiovascular Exam Cardiovascular Exam: REGULAR RHYTHM - GI/Abdominal Exam GI & Abdominal Exam: Normal Bowel Sounds Assessment and Plan (1) UTI (urinary tract infection) Status: Acute (2) Hydronephrosis Status: Acute (3) History of cervical cancer Status: Acute - Assessment and Plan (Free Text) Plan: Cont meds Cont tx Cont IV antibiotics PT eval
[2018-06-14] MEDS: Clindamycin 600mg/50ml D5W 600 MG/50 ML VIAL IVPB SCH ×2 (00:56→10:50)
[2018-06-14] MEDS: Proshield Plus GEL TOP SCH ×2 (00:57→10:09)
[2018-06-14] MEDS: Acetaminophen-Codeine 300/30 mg Tab PO PRN ×2 (01:46→10:08)
[2018-06-14] MEDS: Tobramycin inj 60 MG in Sodium Chloride 0.9% 100 ML IV SCH (04:06)
[2018-06-14 05:50] LABS: HEMOGLOBIN 11.3 g/dL (12.0-16.0); MEAN CORPUSCULAR HEMOGLOBIN 29.9 pg (27.0-31.0); MEAN CORPUSCULAR HGB CONC 33.6 g/dL (33.0-37.0); RBC 3.78 Mil/uL (3.80-5.20); RED CELL DISTRIBUTION WIDTH 14.7 % (11.5-14.5); WHITE BLOOD COUNT 10.3 K/uL (4.8-10.8)
[2018-06-14] MEDS: Enoxaparin 40 mg Syringe SC SCH (09:45)
[2018-06-14] MEDS: Pantoprazole 20 mg EC Tab PO SCH (09:46)
[2018-06-14] MEDS: Lidocaine 5% Patch TD SCH (09:47)
[2018-06-14] MEDS: Menthol/Methyl Salicylate Oinment TOP PRN (09:47)
--- NOTE | 2018-06-14 12:18 | CP.PCM.PCO ---
Assessment & Plan - Assessment and Plan (Free Text) Assessment: patient doing well today patient will require 1 more week of iv abx with Clindamycin 600 mg iv q 8 hours and Tobramycin 60 mg iv q12 as per pt. cleared for d/c to TCU today by and cont to f/u chest xray and f/u urine cx cont. to monitor labs, f/u with and
[2018-06-14 15:36] VITALS: BP 91/57; PULSE 103; RESP 16; TEMP 98.5; O2SAT 98
[2018-06-15 05:24] LABS: BASO # 0.1 K/uL (0.0-0.2); BASO % 0.8 % (0.0-2.0); EOS # 0.2 K/uL (0.0-0.7); EOS % 1.9 % (0.0-4.0); HEMOGLOBIN 11.2 g/dL (12.0-16.0); LYMPH # 1.4 K/uL (1.0-4.3); LYMPH % 12.6 % (20.0-40.0); MEAN CELL VOLUME 88.5 fl (81.0-99.0); MEAN CORPUSCULAR HEMOGLOBIN 29.1 pg (27.0-31.0); MEAN CORPUSCULAR HGB CONC 32.9 g/dL (33.0-37.0); MEAN PLATELET VOLUME 7.2 fl (7.2-11.7); MONO # 1.5 K/uL (0.0-0.8); MONO % 14.1 % (0.0-10.0); NEUT # 7.6 K/uL (1.8-7.0); NEUT % 70.6 % (50.0-75.0); RBC 3.83 Mil/uL (3.80-5.20); RED CELL DISTRIBUTION WIDTH 14.9 % (11.5-14.5); WHITE BLOOD COUNT 10.8 K/uL (4.8-10.8)
[2018-06-15 05:35] LABS: BLOOD UREA NITROGEN 23 mg/dl (7-17); CALCIUM 9.3 mg/dL (8.4-10.2); GFR NON-AFRICAN AMERICAN 52
--- NOTE | 2018-06-15 15:26 | PQF ---
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 Documentation of a history of CVA. Nursing with documentation of L sided paralysis from prior strok e. Please clarify if this patient has a L hemiparesis/hemiplegia from a prior stroke or not or other exp lanation. Neurology consult ordered but pending. The patient's Clinical Indicators include: History of CVA. Nursing with documentation of L sided paralysis from prior stroke. Neuro consult ordered but pending. PT evaluation. Query created by: Leia Santamaria on 06/14/2018 8:27 AM Electronically signed by: Rudi Floyd MD 06/15/2018 3:23 PM
--- NOTE | 2018-06-15 15:26 | PQF ---
PROVIDER RESPONSE TEXT: UTI castillo catheter related REVIEWER QUERY TEXT: Documentation Clarification Your help is requested in clarifying the following clinical documentation, if you can please further specify in the medical record and discharge summary. Please clarify if the UTI is possibly castillo catheter related or not. The patient's Clinical Indicators include: Patient with a chronic castillo catheter is admitted with left lower abdominal pain associated with naus ea. Recently treated for a UTI with Levaquin. WBC 18, Temp 100.2 Urine CS: >100,.000 multiple species and Repeat on 06/13/18 pending results Rx: IVAB Query created by: Leia Santamaria on 06/14/2018 8:21 AM Electronically signed by: Rudi Floyd MD 06/15/2018 3:23 PM
== END 2018-06-14 15:45 | DRG 699 ==
LOC: H.ER 22:28 → H.ERHOLD 06-11 06:53 → H.TEL 06-11 08:32
PROVIDERS: ADMIT Family Medicine; ATTEND Family Medicine
PROC: 05HY33Z Insertion of Infusion Device into Upper Vein, Percutaneous Approach (ICD-10-PCS; principal; 2018-06-12)
DX: T83.511A Infection and inflammatory reaction due to indwelling urethral catheter, initial encounter (principal); N13.6 Pyonephrosis; I87.1 Compression of vein; I69.354 Hemiplegia and hemiparesis following cerebral infarction affecting left non-dominant side; Z85.41 Personal history of malignant neoplasm of cervix uteri; Z86.711 Personal history of pulmonary embolism; E78.00 Pure hypercholesterolemia, unspecified; I12.9 Hypertensive chronic kidney disease with stage 1 through stage 4 chronic kidney disease, or unspecified chronic kidney disease; N18.9 Chronic kidney disease, unspecified; Z88.0 Allergy status to penicillin; J44.9 Chronic obstructive pulmonary disease, unspecified; Z87.891 Personal history of nicotine dependence; Y84.6 Urinary catheterization as the cause of abnormal reaction of the patient, or of later complication, without mention of misadventure at the time of the procedure

== ENCOUNTER 2018-06-14 14:08 | Inpatient (IN) | payer OTHER, MEDICAID ==
[2018-06-14 16:03] VITALS: BMI 28.3
[2018-06-14] MEDS ORDERED: Albuterol-Ipratrop 3 mg / 0.5 (3 ml) UD IH PRN (17:01)
[2018-06-14] MEDS: Acetaminophen-Codeine 300/30 mg Tab PO PRN (18:00)
[2018-06-14] MEDS: Proshield Plus GEL TOP SCH (18:00)
[2018-06-14] MEDS ORDERED: Tobramycin inj 60 MG in Sodium Chloride 0.9% 100 ML IV SCH (21:00)
[2018-06-14] MEDS ORDERED: Tobramycin Sulfate 40 mg/ml (2ml) Inj IVPB SCH (21:00)
[2018-06-14] MEDS: Clindamycin 600mg/50ml D5W 600 MG/50 ML VIAL IVPB SCH (21:23)
[2018-06-15] MEDS: Proshield Plus GEL TOP SCH ×3 (02:30→17:23)
[2018-06-15] MEDS: Acetaminophen-Codeine 300/30 mg Tab PO PRN ×4 (02:35→20:30)
[2018-06-15] MEDS: Clindamycin 600mg/50ml D5W 600 MG/50 ML VIAL IVPB SCH ×3 (05:00→20:32)
--- NOTE | 2018-06-15 08:41 | CP.PCM.HP ---
<Meagan Metcalf - Last Filed: 06/15/18 11:24> History of Present Illness - History of Present Illness History of Present Illness: HPI: 52 YO female with PMHx of Cervical CA s/p RODRIGO, PE, SBO, was admitted for left lower abdominal pain associated with nausea. Pt has an indwelling cath and was found to have UTI with hydronephrosis. Overton was changed, and symptoms improved with IVF and abx. ID was consulted and pt was transferred to TCU for IV abx. Present on Admission - Present on Admission Any Indicators Present on Admission: No Review of Systems - Constitutional Constitutional: absent: Chills, Fever - Cardiovascular Cardiovascular: absent: Chest Pain, Dyspnea - Gastrointestinal Gastrointestinal: absent: Abdominal Pain, Nausea, Vomiting Past Patient History - Past Medical History & Family History Past Medical History?: Yes - Past Social History Smoking Status: Never Smoked Alcohol: None Drugs: Denies - CARDIAC Hx Hypercholesterolemia: Yes Hx Hypertension: Yes - PULMONARY Hx Chronic Obstructive Pulmonary Disease (COPD): Yes Hx Pneumonia: Yes Hx Pulmonary Embolism: Yes - NEUROLOGICAL Hx Neurological Disorder: Yes HX Cerebrovascular Accident: Yes Hx Paralysis: Yes Hx Transient Ischemic Attacks (TIA): Yes - HEENT Hx HEENT Problems: Yes (wear eyeglasses) - RENAL Hx Chronic Kidney Disease: Yes - ENDOCRINE/METABOLIC Hx Endocrine Disorders: No - HEMATOLOGICAL/ONCOLOGICAL Hx Human Immunodeficiency Virus (HIV): No - INTEGUMENTARY Hx Dermatological Problems: Yes Other/Comment: Sacral,buttocks excoriations - MUSCULOSKELETAL/RHEUMATOLOGICAL Hx Falls: No - GASTROINTESTINAL Hx Gastritis: Yes - GENITOURINARY/GYNECOLOGICAL Hx Genitourinary Disorders: Yes Hx Cervical Cancer: Yes Hx Hematuria: Yes Hx Incontinence: Yes Hx Ovarian Cancer: Yes Hx Urinary Tract Infection: Yes - PSYCHIATRIC Hx Substance Use: No - SURGICAL HISTORY Hx Appendectomy: Yes Hx Cholecystectomy: Yes - ANESTHESIA Hx Anesthesia: Yes Hx Anesthesia Reactions: No Hx Malignant Hyperthermia: No Meds Allergies/Adverse Reactions: Allergies Allergy/AdvReac Type Severity Reaction Status Date / Time cimetidine [From Tagamet] Allergy RASH Verified 06/10/18 22:34 nickel Allergy RASH Verified 06/10/18 22:34 Penicillins Allergy RASH Verified 06/10/18 22:34 Physical Exam - Constitutional Appears: No Acute Distress - Head Exam Head Exam: NORMAL INSPECTION - Respiratory Exam Respiratory Exam: Clear to Auscultation Bilateral. absent: Wheezes - Cardiovascular Exam Cardiovascular Exam: REGULAR RHYTHM, +S1, +S2 - GI/Abdominal Exam GI & Abdominal Exam: Distended, Normal Bowel Sounds, Soft. absent: Tenderness - Exam Additional comments: cath noted, draining dark yellow urine - Extremities Exam Additional comments: PICC Noted noted in RUE, mild edema noted no erythema site is intact - Neurological Exam Neurological exam: Alert Results - Vital Signs Recent Vital Signs: Last Vital Signs Temp 98.2 F 06/15/18 08:16 Pulse 94 H 06/15/18 08:16 Resp 18 06/15/18 08:16 BP 95/64 L 06/15/18 08:16 Pulse Ox 97 06/15/18 08:16 Assessment & Plan (1) Tachycardia Status: Acute (2) History of cervical cancer Status: Chronic (3) UTI (urinary tract infection) Status: Acute (4) Hydronephrosis Status: Acute - Assessment and Plan (Free Text) Assessment: Assessment/Plan: 52 YO Female admitted for UTI/hydronephrosis and tachycardia. UTI/[place] -ID on board -c/w IV abx -Overton changed and new in place Tachycardia -chronic -sinus tachycardia -c/w Metoprolol BID Plan as ordered Lovenox SC for SVT prolyx <Rudi Floyd - Last Filed: 06/19/18 08:49> Results - Vital Signs Recent Vital Signs: Last Vital Signs Temp 98.7 F 06/19/18 08:21 Pulse 100 H 06/19/18 08:21 Resp 20 06/19/18 08:21 BP 104/73 06/19/18 08:21 Pulse Ox 95 06/19/18 08:21 - Labs Result Diagrams: 06/16/18 06:00 06/16/18 06:00 Labs: Laboratory Results - last 24 hr 06/18/18 15:00 Procalcitonin 0.13 L Assessment & Plan - Assessment and Plan (Free Text) Plan: I was present during evaluation and discussed with Dr Metcalf re plans of care and tx. Rudi Floyd M.D.
[2018-06-15] MEDS ORDERED: Enoxaparin 40 mg Syringe SC SCH (09:00)
[2018-06-15] MEDS: Lidocaine 5% Patch TD SCH (09:53)
[2018-06-15] MEDS: Enoxaparin 40 mg Syringe SC SCH (09:54)
[2018-06-15] MEDS: Pantoprazole 20 mg EC Tab PO SCH (09:55)
[2018-06-15] MEDS: Tobramycin inj 60 MG in Sodium Chloride 0.9% 100 ML IV SCH (12:32)
[2018-06-16] MEDS: Tobramycin inj 60 MG in Sodium Chloride 0.9% 100 ML IV SCH ×2 (00:05→12:45)
[2018-06-16] MEDS: Proshield Plus GEL TOP SCH ×3 (01:00→18:45)
[2018-06-16] MEDS: Clindamycin 600mg/50ml D5W 600 MG/50 ML VIAL IVPB SCH ×3 (05:00→21:22)
[2018-06-16 06:53] LABS: BASO # 0.1 K/uL (0.0-0.2); BASO % 0.7 % (0.0-2.0); EOS # 0.2 K/uL (0.0-0.7); EOS % 2.1 % (0.0-4.0); HEMOGLOBIN 11.3 g/dL (12.0-16.0); LYMPH # 1.3 K/uL (1.0-4.3); LYMPH % 13.8 % (20.0-40.0); MEAN CELL VOLUME 89.8 fl (81.0-99.0); MEAN CORPUSCULAR HEMOGLOBIN 29.8 pg (27.0-31.0); MEAN CORPUSCULAR HGB CONC 33.2 g/dL (33.0-37.0); MEAN PLATELET VOLUME 7.4 fl (7.2-11.7); MONO # 1.2 K/uL (0.0-0.8); MONO % 12.8 % (0.0-10.0); NEUT # 6.7 K/uL (1.8-7.0); NEUT % 70.6 % (50.0-75.0); RBC 3.79 Mil/uL (3.80-5.20); RED CELL DISTRIBUTION WIDTH 14.8 % (11.5-14.5); WHITE BLOOD COUNT 9.4 K/uL (4.8-10.8)
[2018-06-16 07:17] LABS: BLOOD UREA NITROGEN 27 mg/dl (7-17); CALCIUM 9.5 mg/dL (8.4-10.2); GFR NON-AFRICAN AMERICAN 52
[2018-06-16] MEDS: Lidocaine 5% Patch TD SCH (08:40)
[2018-06-16] MEDS: Menthol/Methyl Salicylate Oinment TOP PRN ×2 (08:40→18:44)
[2018-06-16] MEDS: Enoxaparin 40 mg Syringe SC SCH (08:41)
[2018-06-16] MEDS: Pantoprazole 20 mg EC Tab PO SCH (08:42)
[2018-06-16] MEDS: Acetaminophen-Codeine 300/30 mg Tab PO PRN (11:23)
--- NOTE | 2018-06-16 15:33 | CP.PCM.CON ---
History of Present Illness - History of Present Illness History of Present Illness: Dr Dillon PMR consultation on Patsy Schafer, born 1965, who has been admitted to [address] [facility]CU following an admission with abdominal pain. She has a very complex and unfortunate history. Had a CVA in February 2017 and required PEG and trach which were removed in December 2017. She had been institutionalized until that point for 10 months in different facilities. She has been non-ambulatory for some time She had 2 prior right TKRs Left HP with little movement distally in the UE and trace movement at the ankle painful left LE ROM both AROM and PROM. She is right hand dominant Review of Systems - Constitutional Constitutional: absent: Anorexia - EENT Eyes: absent: Change in Vision Ears: absent: Ear Discharge Nose/Mouth/Throat: absent: Nasal Congestion, Nasal Discharge - Cardiovascular Cardiovascular: absent: Chest Pain - Respiratory Respiratory: absent: Cough - Gastrointestinal Gastrointestinal: absent: Constipation - Musculoskeletal Musculoskeletal: Back Pain - Integumentary Integumentary: absent: Bleeding Lesions - Neurological Neurological: absent: Abnormal Movements Past Patient History - Past Medical History & Family History Past Medical History?: Yes - Past Social History Smoking Status: Never Smoked Alcohol: None Drugs: Denies - CARDIAC Hx Hypercholesterolemia: Yes Hx Hypertension: Yes - PULMONARY Hx Chronic Obstructive Pulmonary Disease (COPD): Yes - NEUROLOGICAL HX Cerebrovascular Accident: Yes - HEENT Hx HEENT Problems: Yes (wear eyeglasses) - RENAL Hx Chronic Kidney Disease: Yes - ENDOCRINE/METABOLIC Hx Endocrine Disorders: No - HEMATOLOGICAL/ONCOLOGICAL Hx Human Immunodeficiency Virus (HIV): No - INTEGUMENTARY Hx Dermatological Problems: Yes Other/Comment: Sacral,buttocks excoriations - MUSCULOSKELETAL/RHEUMATOLOGICAL Hx Falls: No - GASTROINTESTINAL Hx Gastritis: Yes - GENITOURINARY/GYNECOLOGICAL Hx Genitourinary Disorders: Yes Hx Cervical Cancer: Yes Hx Hematuria: Yes Hx Incontinence: Yes Hx Ovarian Cancer: Yes Hx Urinary Tract Infection: Yes - PSYCHIATRIC Hx Substance Use: No - SURGICAL HISTORY Hx Appendectomy: Yes Hx Cholecystectomy: Yes - ANESTHESIA Hx Anesthesia: Yes Hx Anesthesia Reactions: No Hx Malignant Hyperthermia: No Meds Allergies/Adverse Reactions: Allergies Allergy/AdvReac Type Severity Reaction Status Date / Time cimetidine [From Tagamet] Allergy RASH Verified 06/10/18 22:34 nickel Allergy RASH Verified 06/10/18 22:34 Penicillins Allergy RASH Verified 06/10/18 22:34 - Medications Medications: Current Medications Acetaminophen/Codeine Phosphate (Tylenol/Codeine 300 Mg/30 Mg) 1 tab PO Q4 PRN PRN Reason: Pain, moderate (4-7) Last Admin: 06/16/18 11:23 Dose: 1 tab Albuterol/Ipratropium (Duoneb 3 Mg/0.5 Mg (3 Ml) Ud) 3 ml IH TID PRN PRN Reason: Shortness of Breath Camphor/Menthol (Bengay) 1 applic TOP Q6 PRN PRN Reason: Pain, Mild (1-3) Last Admin: 06/16/18 08:40 Dose: 1 applic Dimethicone (Proshield Plus Skin Protectant) 1 applic TOP Q8 [facility] Last Admin: 06/16/18 11:25 Dose: 1 applic Docusate Sodium (Colace) 100 mg PO BID PRN PRN Reason: Constipation Last Admin: 06/16/18 08:41 Dose: 100 mg Enoxaparin Sodium (Lovenox) 40 mg SC DAILY [facility]; Protocol Last Admin: 06/16/18 08:41 Dose: 40 mg Gabapentin (Neurontin) 100 mg PO Q8 [facility] Last Admin: 06/16/18 08:40 Dose: 100 mg Clindamycin Phosphate (Cleocin) 600 mg in 50 mls @ 50 mls/hr IVPB Q8@0500,1300,2100 [facility]; Protocol Last Admin: 06/16/18 13:46 Dose: 50 mls/hr Tobramycin Sulfate 60 mg/ (Sodium Chloride) 101.5 mls @ 100 mls/hr IV Q12H [facility]; Protocol Last Admin: 06/16/18 12:45 Dose: 100 mls/hr Lidocaine (Lidoderm) 1 ea TD DAILY [facility] Last Admin: 06/16/18 08:40 Dose: 1 ea Meclizine HCl (Antivert) 25 mg PO Q12 [facility] Last Admin: 06/16/18 08:41 Dose: 25 mg Metoprolol Tartrate (Lopressor) 25 mg PO Q12 [facility] Last Admin: 06/16/18 08:43 Dose: Not Given Nystatin (Nystop Topical Powder) 1 applic TOP TID [facility] Last Admin: 06/16/18 08:41 Dose: 1 applic Oxycodone HCl (Oxycontin Extended Release Tab) 10 mg PO Q12 [facility] Stop: 06/19/18 21:01 Pantoprazole Sodium (Protonix Ec Tab) 20 mg PO DAILY [facility] Last Admin: 06/16/18 08:42 Dose: 20 mg Physical Exam - Constitutional Appears: Non-toxic - Head Exam Head Exam: NORMOCEPHALIC - Eye Exam Eye Exam: EOMI - ENT Exam ENT Exam: Mucous Membranes Moist (poor dentation) - Neck Exam Neck exam: Negative for: Normal Inspection (has trach hole) - Respiratory Exam Respiratory Exam: Decreased Breath Sounds - Cardiovascular Exam Cardiovascular Exam: REGULAR RHYTHM - GI/Abdominal Exam GI & Abdominal Exam: absent: Distended, Firm - Neurological Exam Neurological exam: Alert, Oriented x3 Results - Vital Signs Recent Vital Signs: Last Vital Signs Temp 98.5 F 06/16/18 11:33 Pulse 99 H 06/16/18 14:12 Resp 20 06/16/18 11:33 BP 110/77 06/16/18 14:12 Pulse Ox 96 06/16/18 14:12 - Labs Result Diagrams: 06/16/18 06:00 06/16/18 06:00 Labs: Laboratory Results - last 24 hr 06/16/18 06/16/18 06:00 06:00 WBC 9.4 RBC 3.79 L Hgb 11.3 L Hct 34.0 MCV 89.8 MCH 29.8 MCHC 33.2 RDW 14.8 H Plt Count 304 MPV 7.4 Neut % (Auto) 70.6 Lymph % (Auto) 13.8 L Moody % (Auto) 12.8 H Eos % (Auto) 2.1 Baso % (Auto) 0.7 Neut # (Auto) 6.7 Lymph # (Auto) 1.3 Moody # (Auto) 1.2 H Eos # (Auto) 0.2 Baso # (Auto) 0.1 Sodium 138 Potassium 3.7 Chloride 104 Carbon Dioxide 25 Anion Gap 13 BUN 27 H Creatinine 1.1 Est GFR ( Amer) > 60 Est GFR (Non-Af Amer) 52 Random Glucose 94 Calcium 9.5 Assessment & Plan - Assessment and Plan (Free Text) Plan: Pain with gentle ROM left LE. No clear source, possibly the knee itself. she has right TKR scar. PT/OT to continue to help increase functional independence Pain: I will add oxycontin 10mg q12 to her regimen. Consider left knee injection Vascular: On LMWH GI: No evidence of constipation or diarrhea Patient continues to be an excellent TCU rehabilitation candidate and will have continued focused PT, OT and recreational therapy to help facilitate a safe and appropriate d/c plan
[2018-06-16] MEDS: oxyCODONE 10 mg ER Tab (oxyCONTIN) PO SCH (21:24)
[2018-06-17] MEDS: Tobramycin inj 60 MG in Sodium Chloride 0.9% 100 ML IV SCH ×2 (00:21→12:54)
[2018-06-17] MEDS: Proshield Plus GEL TOP SCH ×3 (01:30→17:49)
[2018-06-17] MEDS: Clindamycin 600mg/50ml D5W 600 MG/50 ML VIAL IVPB SCH ×3 (04:42→21:00)
[2018-06-17] MEDS: Acetaminophen-Codeine 300/30 mg Tab PO PRN ×2 (04:44→11:32)
[2018-06-17] MEDS: Lidocaine 5% Patch TD SCH (08:58)
[2018-06-17] MEDS: Enoxaparin 40 mg Syringe SC SCH (08:59)
[2018-06-17] MEDS: Pantoprazole 20 mg EC Tab PO SCH (09:00)
[2018-06-17] MEDS: oxyCODONE 10 mg ER Tab (oxyCONTIN) PO SCH ×2 (09:00→23:14)
--- NOTE | 2018-06-17 20:58 | CP.PCM.PN ---
Subjective - Date & Time of Evaluation Date of Evaluation: 06/17/18 Time of Evaluation: 21:00 - Subjective Subjective: I D NOTE PATIENT SEEN PREVIOUSLY FOR CHRONIc UTI c HYDRONEPHROSIS.PATIENT & HAS WHAT APPEARS TO BE PERSISTENT PNEUMONIA . WOULD CONTINUE CLINDAMYCIN /TOBRAMYCIN Objective - Vital Signs/Intake and Output Vital Signs (last 24 hours): Temp Pulse Resp BP Pulse Ox 98.1 F 103 H 20 95/62 L 94 L 06/17/18 16:51 06/17/18 16:51 06/17/18 16:51 06/17/18 16:51 06/17/18 16:51 - Medications Medications: Current Medications Acetaminophen/Codeine Phosphate (Tylenol/Codeine 300 Mg/30 Mg) 1 tab PO Q4 PRN PRN Reason: Pain, moderate (4-7) Last Admin: 06/17/18 11:32 Dose: 1 tab Albuterol/Ipratropium (Duoneb 3 Mg/0.5 Mg (3 Ml) Ud) 3 ml IH TID PRN PRN Reason: Shortness of Breath Camphor/Menthol (Bengay) 1 applic TOP Q6 PRN PRN Reason: Pain, Mild (1-3) Last Admin: 06/16/18 18:44 Dose: 1 applic Dimethicone (Proshield Plus Skin Protectant) 1 applic TOP Q8 [facility] Last Admin: 06/17/18 17:49 Dose: 1 applic Docusate Sodium (Colace) 100 mg PO BID PRN PRN Reason: Constipation Last Admin: 06/16/18 08:41 Dose: 100 mg Enoxaparin Sodium (Lovenox) 40 mg SC DAILY [facility]; Protocol Last Admin: 06/17/18 08:59 Dose: 40 mg Gabapentin (Neurontin) 100 mg PO Q8 [facility] Last Admin: 06/17/18 17:48 Dose: 100 mg Clindamycin Phosphate (Cleocin) 600 mg in 50 mls @ 50 mls/hr IVPB Q8@0500,1300,2100 [facility]; Protocol Last Admin: 06/17/18 12:53 Dose: 50 mls/hr Tobramycin Sulfate 60 mg/ (Sodium Chloride) 101.5 mls @ 100 mls/hr IV Q12H [facility]; Protocol Last Admin: 06/17/18 12:54 Dose: 100 mls/hr Lidocaine (Lidoderm) 1 ea TD DAILY [facility] Last Admin: 06/17/18 08:58 Dose: 1 ea Meclizine HCl (Antivert) 25 mg PO Q12 [facility] Last Admin: 06/17/18 08:58 Dose: 25 mg Metoprolol Tartrate (Lopressor) 25 mg PO Q12 [facility] Last Admin: 06/17/18 08:58 Dose: Not Given Nystatin (Nystop Topical Powder) 1 applic TOP TID [facility] Last Admin: 06/17/18 17:49 Dose: 1 applic Oxycodone HCl (Oxycontin Extended Release Tab) 10 mg PO Q12 [facility] Stop: 06/19/18 21:01 Last Admin: 06/17/18 09:00 Dose: 10 mg Pantoprazole Sodium (Protonix Ec Tab) 20 mg PO DAILY [facility] Last Admin: 06/17/18 09:00 Dose: 20 mg - Labs Labs: 06/16/18 06:00 06/16/18 06:00
[2018-06-18] MEDS: Proshield Plus GEL TOP SCH ×3 (00:09→16:29)
[2018-06-18] MEDS: Tobramycin inj 60 MG in Sodium Chloride 0.9% 100 ML IV SCH ×3 (00:46→23:20)
[2018-06-18] MEDS: Acetaminophen-Codeine 300/30 mg Tab PO PRN ×2 (04:41→13:23)
[2018-06-18] MEDS: Clindamycin 600mg/50ml D5W 600 MG/50 ML VIAL IVPB SCH ×3 (04:42→21:40)
[2018-06-18] MEDS: Lidocaine 5% Patch TD SCH (08:19)
[2018-06-18] MEDS: Pantoprazole 20 mg EC Tab PO SCH (08:21)
[2018-06-18] MEDS: Enoxaparin 40 mg Syringe SC SCH (08:21)
[2018-06-18] MEDS: oxyCODONE 10 mg ER Tab (oxyCONTIN) PO SCH ×2 (08:23→21:05)
--- NOTE | 2018-06-18 12:27 | CP.PCM.PN ---
Subjective - Date & Time of Evaluation Date of Evaluation: 06/18/18 Time of Evaluation: 12:27 - Subjective Subjective: patient seen and examined at bedside. no complaints offered at this time tolerating po well pain well controlled cough present available diagnostic data reviewed. Objective - Vital Signs/Intake and Output Vital Signs (last 24 hours): Temp Pulse Resp BP Pulse Ox 98.2 F 93 H 20 106/73 94 L 06/18/18 08:27 06/18/18 08:27 06/18/18 08:27 06/18/18 08:27 06/18/18 08:27 - Medications Medications: Current Medications Acetaminophen/Codeine Phosphate (Tylenol/Codeine 300 Mg/30 Mg) 1 tab PO Q4 PRN PRN Reason: Pain, moderate (4-7) Last Admin: 06/18/18 04:41 Dose: 1 tab Albuterol/Ipratropium (Duoneb 3 Mg/0.5 Mg (3 Ml) Ud) 3 ml IH TID PRN PRN Reason: Shortness of Breath Camphor/Menthol (Bengay) 1 applic TOP Q6 PRN PRN Reason: Pain, Mild (1-3) Last Admin: 06/16/18 18:44 Dose: 1 applic Dimethicone (Proshield Plus Skin Protectant) 1 applic TOP Q8 [facility] Last Admin: 06/18/18 08:21 Dose: 1 applic Docusate Sodium (Colace) 100 mg PO BID PRN PRN Reason: Constipation Last Admin: 06/16/18 08:41 Dose: 100 mg Enoxaparin Sodium (Lovenox) 40 mg SC DAILY [facility]; Protocol Last Admin: 06/18/18 08:21 Dose: 40 mg Gabapentin (Neurontin) 100 mg PO Q8 [facility] Last Admin: 06/18/18 08:21 Dose: 100 mg Clindamycin Phosphate (Cleocin) 600 mg in 50 mls @ 50 mls/hr IVPB Q8@0500,1300,2100 [facility]; Protocol Last Admin: 06/18/18 04:42 Dose: 50 mls/hr Tobramycin Sulfate 60 mg/ (Sodium Chloride) 101.5 mls @ 100 mls/hr IV Q12H [facility]; Protocol Last Admin: 06/18/18 11:39 Dose: 100 mls/hr Lidocaine (Lidoderm) 1 ea TD DAILY [facility] Last Admin: 06/18/18 08:19 Dose: 1 ea Meclizine HCl (Antivert) 25 mg PO Q12 [facility] Last Admin: 06/18/18 08:19 Dose: 25 mg Metoprolol Tartrate (Lopressor) 25 mg PO Q12 [facility] Last Admin: 06/18/18 08:20 Dose: Not Given Nystatin (Nystop Topical Powder) 1 applic TOP TID [facility] Last Admin: 06/18/18 08:21 Dose: 1 applic Oxycodone HCl (Oxycontin Extended Release Tab) 10 mg PO Q12 [facility] Stop: 06/19/18 21:01 Last Admin: 06/18/18 08:23 Dose: 10 mg Pantoprazole Sodium (Protonix Ec Tab) 20 mg PO DAILY [facility] Last Admin: 06/18/18 08:21 Dose: 20 mg - Labs Labs: 06/16/18 06:00 06/16/18 06:00 - Additional Findings Additional findings: - Constitutional Appears: Non-toxic, No Acute Distress - Head Exam Head Exam: NORMAL INSPECTION - Eye Exam Eye Exam: Normal appearance - Respiratory Exam Respiratory Exam: NORMAL BREATHING PATTERN - Cardiovascular Exam Cardiovascular Exam: +S1, +S2 - GI/Abdominal Exam GI & Abdominal Exam: Soft - Neurological Exam Neurological Exam: Alert, Awake - Psychiatric Exam Psychiatric exam: Normal Affect, Normal Mood - Skin Skin Exam: Normal Color, Warm Assessment and Plan - Assessment and Plan (Free Text) Assessment: 52 YO Female admitted for chronic UTI/hydronephrosis UTI/[place] -ID on board -c/w IV abx -[place] changed and new in place Tachycardia -chronic -sinus tachycardia -c/w Metoprolol BID Cough robitussin Plan as ordered Lovenox SC for SVT prolyx
[2018-06-18] MEDS: Calamine/Zinc Oxide LOTION TOP PRN (16:28)
[2018-06-18] MEDS: guaiFENesin DM 200 mg-20 mg/10 ml UD PO PRN (17:37)
[2018-06-18] MEDS: Menthol/Methyl Salicylate Oinment TOP PRN (17:37)
[2018-06-19] MEDS: Proshield Plus GEL TOP SCH ×3 (00:08→17:28)
[2018-06-19] MEDS: Acetaminophen-Codeine 300/30 mg Tab PO PRN ×3 (00:47→18:06)
[2018-06-19] MEDS: Clindamycin 600mg/50ml D5W 600 MG/50 ML VIAL IVPB SCH ×3 (05:20→21:57)
[2018-06-19] MEDS: oxyCODONE 10 mg ER Tab (oxyCONTIN) PO SCH ×2 (08:15→22:13)
[2018-06-19] MEDS: Pantoprazole 20 mg EC Tab PO SCH (08:16)
--- NOTE | 2018-06-19 08:59 | CP.PCM.PN ---
Subjective - Date & Time of Evaluation Date of Evaluation: 06/16/18 Time of Evaluation: 11:10 - Subjective Subjective: Patient remains well Has no chest pain or SOB Afebrile On iV antibiotics. Objective - Vital Signs/Intake and Output Vital Signs (last 24 hours): Temp Pulse Resp BP Pulse Ox 98.7 F 100 H 20 104/73 95 06/19/18 08:21 06/19/18 08:21 06/19/18 08:21 06/19/18 08:21 06/19/18 08:21 - Medications Medications: Current Medications Acetaminophen/Codeine Phosphate (Tylenol/Codeine 300 Mg/30 Mg) 1 tab PO Q4 PRN PRN Reason: Pain, moderate (4-7) Last Admin: 06/19/18 00:47 Dose: 1 tab Albuterol/Ipratropium (Duoneb 3 Mg/0.5 Mg (3 Ml) Ud) 3 ml IH TID PRN PRN Reason: Shortness of Breath Calamine (Calamine Lotion) 1 applic TOP Q4 PRN PRN Reason: Itching / Pruritus Last Admin: 06/18/18 16:28 Dose: 1 applic Camphor/Menthol (Bengay) 1 applic TOP Q6 PRN PRN Reason: Pain, Mild (1-3) Last Admin: 06/18/18 17:37 Dose: 1 applic Dimethicone (Proshield Plus Skin Protectant) 1 applic TOP Q8 [facility] Last Admin: 06/19/18 00:08 Dose: 1 applic Docusate Sodium (Colace) 100 mg PO BID PRN PRN Reason: Constipation Last Admin: 06/16/18 08:41 Dose: 100 mg Enoxaparin Sodium (Lovenox) 40 mg SC DAILY [facility]; Protocol Last Admin: 06/18/18 08:21 Dose: 40 mg Gabapentin (Neurontin) 100 mg PO Q8 [facility] Last Admin: 06/19/18 00:08 Dose: 100 mg Guaifenesin/Dextromethorphan (Robitussin Dm) 10 ml PO Q4 PRN PRN Reason: Cough Last Admin: 06/18/18 17:37 Dose: 10 ml Clindamycin Phosphate (Cleocin) 600 mg in 50 mls @ 50 mls/hr IVPB Q8@0500,1300,2100 [facility]; Protocol Last Admin: 06/19/18 05:20 Dose: 50 mls/hr Tobramycin Sulfate 60 mg/ (Sodium Chloride) 101.5 mls @ 100 mls/hr IV Q12H [facility]; Protocol Last Admin: 06/18/18 23:20 Dose: 100 mls/hr Lidocaine (Lidoderm) 1 ea TD DAILY [facility] Last Admin: 06/18/18 08:19 Dose: 1 ea Meclizine HCl (Antivert) 25 mg PO Q12 [facility] Last Admin: 06/18/18 21:05 Dose: 25 mg Metoprolol Tartrate (Lopressor) 25 mg PO Q12 [facility] Last Admin: 06/19/18 08:18 Dose: Not Given Nystatin (Nystop Topical Powder) 1 applic TOP TID [facility] Last Admin: 06/18/18 16:28 Dose: 1 applic Oxycodone HCl (Oxycontin Extended Release Tab) 10 mg PO Q12 [facility] Stop: 06/19/18 21:01 Last Admin: 06/19/18 08:15 Dose: 10 mg Pantoprazole Sodium (Protonix Ec Tab) 20 mg PO DAILY [facility] Last Admin: 06/19/18 08:16 Dose: 20 mg - Labs Labs: 06/16/18 06:00 06/16/18 06:00 - Head Exam Head Exam: NORMAL INSPECTION - Eye Exam Eye Exam: Normal appearance - ENT Exam ENT Exam: Mucous Membranes Moist - Respiratory Exam Respiratory Exam: Clear to Ausculation Bilateral - Cardiovascular Exam Cardiovascular Exam: REGULAR RHYTHM - GI/Abdominal Exam GI & Abdominal Exam: Normal Bowel Sounds - Neurological Exam Neurological Exam: Awake, Oriented x3 Assessment and Plan (1) Urinary tract infection Status: Acute (2) Physical debility Status: Acute (3) Pneumonia Status: Acute (4) Status post CVA Status: Acute - Assessment and Plan (Free Text) Plan: Cont meds Cont PT Cont tobramycin and clinda.
--- NOTE | 2018-06-19 09:06 | CP.PCM.PN ---
Subjective - Date & Time of Evaluation Date of Evaluation: 06/17/18 Time of Evaluation: 11:00 - Subjective Subjective: Patient remains stable Has no chest pain or SOB Afebrile Objective - Vital Signs/Intake and Output Vital Signs (last 24 hours): Temp Pulse Resp BP Pulse Ox 98.7 F 100 H 20 104/73 95 06/19/18 08:21 06/19/18 08:21 06/19/18 08:21 06/19/18 08:21 06/19/18 08:21 - Medications Medications: Current Medications Acetaminophen/Codeine Phosphate (Tylenol/Codeine 300 Mg/30 Mg) 1 tab PO Q4 PRN PRN Reason: Pain, moderate (4-7) Last Admin: 06/19/18 00:47 Dose: 1 tab Albuterol/Ipratropium (Duoneb 3 Mg/0.5 Mg (3 Ml) Ud) 3 ml IH TID PRN PRN Reason: Shortness of Breath Calamine (Calamine Lotion) 1 applic TOP Q4 PRN PRN Reason: Itching / Pruritus Last Admin: 06/18/18 16:28 Dose: 1 applic Camphor/Menthol (Bengay) 1 applic TOP Q6 PRN PRN Reason: Pain, Mild (1-3) Last Admin: 06/18/18 17:37 Dose: 1 applic Dimethicone (Proshield Plus Skin Protectant) 1 applic TOP Q8 [facility] Last Admin: 06/19/18 00:08 Dose: 1 applic Docusate Sodium (Colace) 100 mg PO BID PRN PRN Reason: Constipation Last Admin: 06/16/18 08:41 Dose: 100 mg Enoxaparin Sodium (Lovenox) 40 mg SC DAILY [facility]; Protocol Last Admin: 06/18/18 08:21 Dose: 40 mg Gabapentin (Neurontin) 100 mg PO Q8 [facility] Last Admin: 06/19/18 00:08 Dose: 100 mg Guaifenesin/Dextromethorphan (Robitussin Dm) 10 ml PO Q4 PRN PRN Reason: Cough Last Admin: 06/18/18 17:37 Dose: 10 ml Clindamycin Phosphate (Cleocin) 600 mg in 50 mls @ 50 mls/hr IVPB Q8@ 0500,1300,2100 [facility]; Protocol Last Admin: 06/19/18 05:20 Dose: 50 mls/hr Tobramycin Sulfate 60 mg/ (Sodium Chloride) 101.5 mls @ 100 mls/hr IV Q12H [facility]; Protocol Last Admin: 06/18/18 23:20 Dose: 100 mls/hr Lidocaine (Lidoderm) 1 ea TD DAILY [facility] Last Admin: 06/18/18 08:19 Dose: 1 ea Meclizine HCl (Antivert) 25 mg PO Q12 [facility] Last Admin: 06/18/18 21:05 Dose: 25 mg Metoprolol Tartrate (Lopressor) 25 mg PO Q12 [facility] Last Admin: 06/19/18 08:18 Dose: Not Given Nystatin (Nystop Topical Powder) 1 applic TOP TID [facility] Last Admin: 06/18/18 16:28 Dose: 1 applic Oxycodone HCl (Oxycontin Extended Release Tab) 10 mg PO Q12 [facility] Stop: 06/19/18 21:01 Last Admin: 06/19/18 08:15 Dose: 10 mg Pantoprazole Sodium (Protonix Ec Tab) 20 mg PO DAILY [facility] Last Admin: 06/19/18 08:16 Dose: 20 mg - Labs Labs: 06/16/18 06:00 06/16/18 06:00 - Head Exam Head Exam: NORMAL INSPECTION - Eye Exam Eye Exam: Normal appearance - ENT Exam ENT Exam: Mucous Membranes Moist - Respiratory Exam Respiratory Exam: Clear to Ausculation Bilateral - Cardiovascular Exam Cardiovascular Exam: REGULAR RHYTHM - GI/Abdominal Exam GI & Abdominal Exam: Normal Bowel Sounds - Neurological Exam Neurological Exam: Awake Assessment and Plan (1) Urinary tract infection Status: Acute (2) Physical debility Status: Acute (3) Pneumonia Status: Acute (4) Status post CVA Status: Acute - Assessment and Plan (Free Text) Plan: Cont meds Cont tx Cont PT Cont iv antibiotics.
[2018-06-19] MEDS: Enoxaparin 40 mg Syringe SC SCH ×2 (09:40→12:15)
[2018-06-19] MEDS: Lidocaine 5% Patch TD SCH (09:42)
[2018-06-19] MEDS: Tobramycin inj 60 MG in Sodium Chloride 0.9% 100 ML IV SCH (12:18)
[2018-06-19] MEDS: Menthol/Methyl Salicylate Oinment TOP PRN (17:29)
--- NOTE | 2018-06-19 18:05 | CP.PCM.PN ---
Subjective - Date & Time of Evaluation Date of Evaluation: 06/19/18 Time of Evaluation: 18:04 - Subjective Subjective: Patient seen in the room is present she is in much better spirits smiling and happy shock my hand feels encouraged by her short time here already continue current care Objective - Vital Signs/Intake and Output Vital Signs (last 24 hours): Temp Pulse Resp BP Pulse Ox 97.3 F L 101 H 20 102/74 96 06/19/18 16:38 06/19/18 16:38 06/19/18 16:38 06/19/18 16:38 06/19/18 16:38 - Medications Medications: Current Medications Acetaminophen/Codeine Phosphate (Tylenol/Codeine 300 Mg/30 Mg) 1 tab PO Q4 PRN PRN Reason: Pain, moderate (4-7) Last Admin: 06/19/18 09:57 Dose: 1 tab Albuterol/Ipratropium (Duoneb 3 Mg/0.5 Mg (3 Ml) Ud) 3 ml IH TID PRN PRN Reason: Shortness of Breath Calamine (Calamine Lotion) 1 applic TOP Q4 PRN PRN Reason: Itching / Pruritus Last Admin: 06/18/18 16:28 Dose: 1 applic Camphor/Menthol (Bengay) 1 applic TOP Q6 PRN PRN Reason: Pain, Mild (1-3) Last Admin: 06/19/18 17:29 Dose: 1 applic Dimethicone (Proshield Plus Skin Protectant) 1 applic TOP Q8 [facility] Last Admin: 06/19/18 17:28 Dose: 1 applic Docusate Sodium (Colace) 100 mg PO BID PRN PRN Reason: Constipation Last Admin: 06/16/18 08:41 Dose: 100 mg Enoxaparin Sodium (Lovenox) 40 mg SC DAILY [facility]; Protocol Last Admin: 06/19/18 12:15 Dose: 40 mg Gabapentin (Neurontin) 100 mg PO Q8 [facility] Last Admin: 06/19/18 17:28 Dose: 100 mg Guaifenesin/Dextromethorphan (Robitussin Dm) 10 ml PO Q4 PRN PRN Reason: Cough Last Admin: 06/18/18 17:37 Dose: 10 ml Clindamycin Phosphate (Cleocin) 600 mg in 50 mls @ 50 mls/hr IVPB Q8@0500,1300,2100 [facility]; Protocol Last Admin: 06/19/18 13:09 Dose: 50 mls/hr Tobramycin Sulfate 60 mg/ (Sodium Chloride) 101.5 mls @ 100 mls/hr IV Q12H [facility]; Protocol Last Admin: 06/19/18 12:18 Dose: 100 mls/hr Lidocaine (Lidoderm) 1 ea TD DAILY [facility] Last Admin: 06/19/18 09:42 Dose: 1 ea Meclizine HCl (Antivert) 25 mg PO Q12 [facility] Last Admin: 06/19/18 09:40 Dose: 25 mg Metoprolol Tartrate (Lopressor) 25 mg PO Q12 [facility] Last Admin: 06/19/18 08:18 Dose: Not Given Nystatin (Nystop Topical Powder) 1 applic TOP TID [facility] Last Admin: 06/19/18 17:28 Dose: 1 applic Oxycodone HCl (Oxycontin Extended Release Tab) 10 mg PO Q12 [facility] Stop: 06/19/18 21:01 Last Admin: 06/19/18 08:15 Dose: 10 mg Pantoprazole Sodium (Protonix Ec Tab) 20 mg PO DAILY [facility] Last Admin: 06/19/18 08:16 Dose: 20 mg - Labs Labs: 06/16/18 06:00 06/16/18 06:00
[2018-06-19] MEDS: guaiFENesin DM 200 mg-20 mg/10 ml UD PO PRN (18:07)
[2018-06-20] MEDS: Tobramycin inj 60 MG in Sodium Chloride 0.9% 100 ML IV SCH ×2 (00:14→12:43)
[2018-06-20] MEDS: Proshield Plus GEL TOP SCH ×3 (00:18→16:38)
[2018-06-20] MEDS: guaiFENesin DM 200 mg-20 mg/10 ml UD PO PRN (00:59)
[2018-06-20] MEDS: Calamine/Zinc Oxide LOTION TOP PRN (01:30)
[2018-06-20] MEDS: Clindamycin 600mg/50ml D5W 600 MG/50 ML VIAL IVPB SCH ×3 (04:47→21:35)
[2018-06-20] MEDS: Acetaminophen-Codeine 300/30 mg Tab PO PRN ×4 (05:05→23:36)
[2018-06-20] MEDS: Lidocaine 5% Patch TD SCH (09:05)
[2018-06-20] MEDS: Pantoprazole 20 mg EC Tab PO SCH (09:06)
[2018-06-20] MEDS: Enoxaparin 40 mg Syringe SC SCH (09:07)
[2018-06-20] MEDS: oxyCODONE 10 mg ER Tab (oxyCONTIN) PO SCH ×2 (09:37→21:37)
--- NOTE | 2018-06-20 12:17 | PCM.RRT ---
<Kayleen Devine - Last Filed: 06/20/18 13:05> INSIDE OUTSIDE SALES REPRESENTATIVE Nurse Assessment - Situation INSIDE OUTSIDE SALES REPRESENTATIVE Responder Arrival Time: 11:55 Location: TCU Room Number: 709-2 INSIDE OUTSIDE SALES REPRESENTATIVE Called By: RN, Other Disciplines - IV IV Inserted during INSIDE OUTSIDE SALES REPRESENTATIVE?: No - Respiratory Oxygen Delivery Method: Room Air - Ventilator Settings Ventilator Respiratory Rate Settin Ventilator Tidal Volume Settin Peak Flow: 0 - Diagnostic Test Ordered EKG: Yes CT Scan: Yes - Stat Labs Ordered INSIDE OUTSIDE SALES REPRESENTATIVE Stat Labs Ordered: CBC, BMP, TROPONIN INSIDE OUTSIDE SALES REPRESENTATIVE Other Labs Ordered: Magnesium, Phosphorus CPR started during INSIDE OUTSIDE SALES REPRESENTATIVE?: No - Vital Signs Vital Signs: Vitals at 11:59 AM BP 137/85 HR 78 O2 96% RA Blood Sugar: 149 mg/dL - Adelaida Coma Scale Coma Scale Eye Opening: To verbal stimuli Coma Scale Motor: Obeys Commands Movement Coma Scale Verbal: Confused/able to answer Coma Scale Total: 13 - Time INSIDE OUTSIDE SALES REPRESENTATIVE Ended Time INSIDE OUTSIDE SALES REPRESENTATIVE Ended: 12:06 - Vital Signs at end of INSIDE OUTSIDE SALES REPRESENTATIVE Vital Signs at end of INSIDE OUTSIDE SALES REPRESENTATIVE: BP 96/61 HR 84 O2 100% RA - Recommendations INSIDE OUTSIDE SALES REPRESENTATIVE Level of Care Recommendations: Remain in current setting Notifications: Attending Physician I.Reason for INSIDE OUTSIDE SALES REPRESENTATIVE - A) Acute Change in Patient: (Select all that apply): Staff member or family is worried about patient, Acute change in mental status Subjective: Patient sustained syncopal episode with right-sided weakness while in physical therapy - Neurological Status (Select all that apply): Responsive, Follows Commands - Respiratory Oxygen Delivery Method: Room Air - Constitutional Appears: Well, Non-toxic, No Acute Distress - Head Head Exam: ATRAUMATIC, NORMOCEPHALIC - Eyes Eye Exam: Normal appearance, PERRL - Respiratory Exam Respiratory Exam: Clear to Ausculation Bilateral, NORMAL BREATHING PATTERN. ab sent: Rales, Rhonchi, Wheezes - Cardiovascular Exam Cardiovascular Exam: REGULAR RHYTHM, +S1, +S2 - GI/Abdominal Exam GI & Abdominal Exam: Soft, Normal Bowel Sounds. absent: Firm, Guarding, Rigid - Neurological Exam Neurological Exam: Alert, Awake, Oriented x3 Plan - Assessment of Findings&Treatment Plan 52 year old female with PMHx of Cervical CA s/p RODRIGO, PE, SBO, was admitted for left lower abdominal pain associated with nausea. Patient currentlyo in TCU for Urinary Tract Infection and Pneumonia. Pt has an indwelling cath and was found to have UTI with hydronephrosis. [place] was changed, and symptoms improved with IVF and abx. As per physical therapy, patient started physical therapy around 11:30 AM and was alert and awake. While in therapy at around 11:50, patient sustained syncopal episode with right-sided weakness while in physical therapy. Patient was immediately lifted back into bed, and became alert and awake. Patient able to respond to verbal commands and states she has dizziness. Patient baseline is slurred speech. -Accucheck BS 149 mg/dL -Continue to monitor vitals -Ordered CT Head -Ordered CBC, CMP, Mag, Phos, Troponins -EKG normal, no change compared to previous -Symptoms resolved without any intervention INSIDE OUTSIDE SALES REPRESENTATIVE lead by Dr. Thompson Resident: Dr. Tracey Devine, Dr. Darren Ho, Dr. Gabriel Floyd aware of patient condition <Juliet Bennett - Last Filed: 06/20/18 13:58> INSIDE OUTSIDE SALES REPRESENTATIVE Nurse Assessment - Vital Signs Vital Signs: Rapid Response Vital Sign Blood Pressure 116/72 Pulse Rate 84 Respiratory Rate 20 Oxygen Saturation 100 - Vital Signs at end of INSIDE OUTSIDE SALES REPRESENTATIVE Vital Signs at end of INSIDE OUTSIDE SALES REPRESENTATIVE: Rapid Response End Vital Sign Blood Pressure 99/72 Pulse Rate 84 Respiratory Rate 21 O2 Sat by Pulse Oximetry 97 Attending/Attestation - Attestation I have personally seen and examined this patient.: Yes I have fully participated in the care of the patient.: Yes I have reviewed all pertinent clinical information, including history, physical exam and plan: Yes Notes (Text): Unresponsiveness, likely Syncopal Episode prob due to Orthostasis. - pt was just wheeled from her room to the Gym by the physical therapist when she suddenly became unresponsive for a few seconds. Pt was brought back to the bed right away. BPhas been noted to below normal and pt had received Metoprolol that morning. According to PT -pt is back to her baseline Neuro status and she has no new neuro deficit. Pt is alert, oriented , has some dysarthria (old) , bilay LE and left UE weakness ( allold as per PT who has been seeing pt the past few days) EKG : no change A/P : Syncope prob due to Orthostasis - CT of Head stat -CBC, CMP, Mg, Phos , Trop. -Pt's PMD Dr Floyd , notified of event - he rec to keep pt in TCU and will come to eval pt
[2018-06-20 13:48] LABS: ALB/GLOB RATIO 0.9 (1.0-2.1); ALBUMIN 3.9 g/dL (3.5-5.0); ALT/SGPT 21 U/L (9-52); AST/SGOT 28 U/L (14-36); BLOOD UREA NITROGEN 21 mg/dl (7-17); CALCIUM 10.5 mg/dL (8.4-10.2); GFR NON-AFRICAN AMERICAN 52
[2018-06-20 13:49] LABS: HEMOGLOBIN 12.1 g/dL (12.0-16.0); MEAN CELL VOLUME 88.9 fl (81.0-99.0); MEAN CORPUSCULAR HEMOGLOBIN 29.7 pg (27.0-31.0); MEAN CORPUSCULAR HGB CONC 33.5 g/dL (33.0-37.0); RBC 4.06 Mil/uL (3.80-5.20); RED CELL DISTRIBUTION WIDTH 14.7 % (11.5-14.5); WHITE BLOOD COUNT 11.6 K/uL (4.8-10.8)
[2018-06-20] MEDS ORDERED: Magnesium Sulfate 2 gm/50 ml 2 GM/50 ML BAG IVPB ONE (13:59)
--- NOTE | 2018-06-20 17:51 | CP.PCM.PN ---
Subjective - Date & Time of Evaluation Date of Evaluation: 06/20/18 Time of Evaluation: 17:50 - Subjective Subjective: Patient seen in the room had a SSIS DEVELOPER called today but doesn't appear any different than last -pm denies any ill effects denies current CP or SOB comfortable not able to endless belt finisher therapies yet continue current care. Objective - Vital Signs/Intake and Output Vital Signs (last 24 hours): Temp Pulse Resp BP Pulse Ox 98.5 F 85 20 94/64 L 93 L 06/20/18 16:17 06/20/18 16:17 06/20/18 16:17 06/20/18 16:17 06/20/18 16:17 - Medications Medications: Current Medications Acetaminophen/Codeine Phosphate (Tylenol/Codeine 300 Mg/30 Mg) 1 tab PO Q4 PRN PRN Reason: Pain, moderate (4-7) Last Admin: 06/20/18 16:15 Dose: 1 tab Albuterol/Ipratropium (Duoneb 3 Mg/0.5 Mg (3 Ml) Ud) 3 ml IH TID PRN PRN Reason: Shortness of Breath Calamine (Calamine Lotion) 1 applic TOP Q4 PRN PRN Reason: Itching / Pruritus Last Admin: 06/20/18 01:30 Dose: 1 applic Camphor/Menthol (Bengay) 1 applic TOP Q6 PRN PRN Reason: Pain, Mild (1-3) Last Admin: 06/19/18 17:29 Dose: 1 applic Dimethicone (Proshield Plus Skin Protectant) 1 applic TOP Q8 [facility] Last Admin: 06/20/18 16:38 Dose: 1 applic Docusate Sodium (Colace) 100 mg PO BID PRN PRN Reason: Constipation Last Admin: 06/16/18 08:41 Dose: 100 mg Enoxaparin Sodium (Lovenox) 40 mg SC DAILY [facility]; Protocol Last Admin: 06/20/18 09:07 Dose: 40 mg Gabapentin (Neurontin) 100 mg PO Q8 [facility] Last Admin: 06/20/18 16:39 Dose: 100 mg Guaifenesin/Dextromethorphan (Robitussin Dm) 10 ml PO Q4 PRN PRN Reason: Cough Last Admin: 06/20/18 00:59 Dose: 10 ml Clindamycin Phosphate (Cleocin) 600 mg in 50 mls @ 50 mls/hr IVPB Q8@0500,1300,2100 [facility]; Protocol Last Admin: 06/20/18 12:44 Dose: 50 mls/hr Lidocaine (Lidoderm) 1 ea TD DAILY [facility] Last Admin: 06/20/18 09:05 Dose: 1 ea Meclizine HCl (Antivert) 25 mg PO Q12 [facility] Last Admin: 06/20/18 09:06 Dose: 25 mg Metoprolol Tartrate (Lopressor) 25 mg PO Q12 [facility] Last Admin: 06/20/18 09:06 Dose: 25 mg Nystatin (Nystop Topical Powder) 1 applic TOP TID [facility] Last Admin: 06/20/18 16:38 Dose: 1 applic Oxycodone HCl (Oxycontin Extended Release Tab) 10 mg PO Q12 [facility] Stop: 06/23/18 09:01 Last Admin: 06/20/18 09:37 Dose: 10 mg Pantoprazole Sodium (Protonix Ec Tab) 20 mg PO DAILY [facility] Last Admin: 06/20/18 09:06 Dose: 20 mg - Labs Labs: 06/20/18 13:20 06/20/18 13:20
--- NOTE | 2018-06-20 19:39 | CARD ---
APPROVED REPORT Date of service: 06/20/2018 EKG Measurement Heart [id number] <Conclusion> Normal sinus rhythm Normal ECG
[2018-06-21] MEDS: Proshield Plus GEL TOP SCH ×3 (01:00→17:03)
[2018-06-21] MEDS: Clindamycin 600mg/50ml D5W 600 MG/50 ML VIAL IVPB SCH (05:00)
[2018-06-21] MEDS: Acetaminophen-Codeine 300/30 mg Tab PO PRN ×3 (05:00→17:29)
[2018-06-21] MEDS: Pantoprazole 20 mg EC Tab PO SCH (09:26)
[2018-06-21] MEDS: oxyCODONE 10 mg ER Tab (oxyCONTIN) PO SCH ×2 (09:27→21:59)
[2018-06-21] MEDS: Enoxaparin 40 mg Syringe SC SCH (09:31)
[2018-06-21] MEDS: Lidocaine 5% Patch TD SCH (09:31)
[2018-06-21] MEDS: guaiFENesin DM 200 mg-20 mg/10 ml UD PO PRN ×2 (10:07→17:56)
--- NOTE | 2018-06-21 11:38 | CP.PCM.PN ---
<Meagan Metcalf - Last Filed: 06/21/18 11:58> Subjective - Date & Time of Evaluation Date of Evaluation: 06/21/18 Time of Evaluation: 11:38 - Subjective Subjective: SUPERVISOR STAVE CUTTING was called yesterday for syncope and R sided weakness while in physical therapy. Pt has baseline R sided weakness. SUPERVISOR STAVE CUTTING team evaluated pt, CT head was sig for Very small focal linear high attenuation in the right parietal cortex. MRI head was ordered and done. Neurology was consulted. Pt seen and examined by bedside this AM. Pt states that she is doing well, no changes from her baseline. Video Swallow eval was done, pt passed Endorsing throat pain Denies chest pain, headaches, blurry vision, weakness, n/v Objective - Vital Signs/Intake and Output Vital Signs (last 24 hours): Temp Pulse Resp BP Pulse Ox 98.1 F 80 18 90/62 L 95 06/21/18 08:12 06/21/18 08:12 06/21/18 08:12 06/21/18 08:12 06/21/18 08:12 - Medications Medications: Current Medications Acetaminophen/Codeine Phosphate (Tylenol/Codeine 300 Mg/30 Mg) 1 tab PO Q4 PRN PRN Reason: Pain, moderate (4-7) Last Admin: 06/21/18 05:00 Dose: 1 tab Albuterol/Ipratropium (Duoneb 3 Mg/0.5 Mg (3 Ml) Ud) 3 ml IH TID PRN PRN Reason: Shortness of Breath Calamine (Calamine Lotion) 1 applic TOP Q4 PRN PRN Reason: Itching / Pruritus Last Admin: 06/20/18 01:30 Dose: 1 applic Camphor/Menthol (Bengay) 1 applic TOP Q6 PRN PRN Reason: Pain, Mild (1-3) Last Admin: 06/19/18 17:29 Dose: 1 applic Dimethicone (Proshield Plus Skin Protectant) 1 applic TOP Q8 [facility] Last Admin: 06/21/18 09:27 Dose: 1 applic Docusate Sodium (Colace) 100 mg PO BID PRN PRN Reason: Constipation Last Admin: 06/16/18 08:41 Dose: 100 mg Enoxaparin Sodium (Lovenox) 40 mg SC DAILY [facility]; Protocol Last Admin: 01/23/19 09:31 Dose: 40 mg Gabapentin (Neurontin) 100 mg PO Q8 [facility] Last Admin: 06/21/18 09:27 Dose: 100 mg Guaifenesin/Dextromethorphan (Robitussin Dm) 10 ml PO Q4 PRN PRN Reason: Cough Last Admin: 06/21/18 10:07 Dose: 10 ml Lidocaine (Lidoderm) 2 ea TD DAILY [facility] Last Admin: 06/21/18 09:31 Dose: 2 ea Meclizine HCl (Antivert) 25 mg PO Q12 [facility] Last Admin: 06/21/18 09:27 Dose: 25 mg Metoprolol Tartrate (Lopressor) 25 mg PO Q12 [facility] Last Admin: 06/20/18 09:06 Dose: 25 mg Nystatin (Nystop Topical Powder) 1 applic TOP TID [facility] Last Admin: 06/21/18 09:25 Dose: 1 applic Oxycodone HCl (Oxycontin Extended Release Tab) 10 mg PO Q12 [facility] Stop: 06/23/18 09:01 Last Admin: 06/21/18 09:27 Dose: 10 mg Pantoprazole Sodium (Protonix Ec Tab) 20 mg PO DAILY [facility] Last Admin: 06/21/18 09:26 Dose: 20 mg - Labs Labs: 06/20/18 13:20 06/20/18 13:20 - Constitutional Appears: No Acute Distress, Other (slurry speech from previous CVA) - Head Exam Head Exam: NORMAL INSPECTION - Respiratory Exam Respiratory Exam: NORMAL BREATHING PATTERN. absent: Wheezes - Cardiovascular Exam Cardiovascular Exam: REGULAR RHYTHM, +S1, +S2 - GI/Abdominal Exam GI & Abdominal Exam: Soft, Normal Bowel Sounds. absent: Tenderness - Extremities Exam Additional comments: B/l upper ext weakness, worse in the R then L - Neurological Exam Neurological Exam: Alert, Awake, Oriented x3 Assessment and Plan (1) Tachycardia Status: Acute (2) History of cervical cancer Status: Chronic (3) UTI (urinary tract infection) Status: Acute (4) Hydronephrosis Status: Acute (5) Status post CVA Status: Acute - Assessment and Plan (Free Text) Assessment: Assessment/Plan: 52 YO Female admitted for UTI/hydronephrosis and tachycardia. SUPERVISOR STAVE CUTTING called yesterday, s/p CVA. S/p CVA -CT head sig for Very small focal linear high attenuation in the right parietal cortex. -MRI head done, pending official read -Neurology on board; follow up recs -follow up lipid and HbA1c UTI/[place] -ID on board -completed IV abx yesteday -[place] changed and new in place Tachycardia -chronic, resolved at this time -sinus tachycardia -c/w Metoprolol BID Plan as ordered Lovenox SC for DT prolyx <Parmjit Meeks - Last Filed: 06/21/18 15:16> Objective - Vital Signs/Intake and Output Vital Signs (last 24 hours): Temp Pulse Resp BP Pulse Ox 98.1 F 113 H 18 99/65 L 92 L 06/21/18 08:12 06/21/18 14:09 06/21/18 08:12 06/21/18 14:09 06/21/18 14:09 - Medications Medications: Current Medications Acetaminophen/Codeine Phosphate (Tylenol/Codeine 300 Mg/30 Mg) 1 tab PO Q4 PRN PRN Reason: Pain, moderate (4-7) Last Admin: 06/21/18 13:24 Dose: 1 tab Albuterol/Ipratropium (Duoneb 3 Mg/0.5 Mg (3 Ml) Ud) 3 ml IH TID PRN PRN Reason: Shortness of Breath Benzocaine/Menthol (Cepacol Sore Throat) 1 chelly PO Q2 PRN PRN Reason: Sore Throat Calamine (Calamine Lotion) 1 applic TOP Q4 PRN PRN Reason: Itching / Pruritus Last Admin: 06/20/18 01:30 Dose: 1 applic Camphor/Menthol (Bengay) 1 applic TOP Q6 PRN PRN Reason: Pain, Mild (1-3) Last Admin: 06/19/18 17:29 Dose: 1 applic Dimethicone (Proshield Plus Skin Protectant) 1 applic TOP Q8 [facility] Last Admin: 06/21/18 09:27 Dose: 1 applic Docusate Sodium (Colace) 100 mg PO BID PRN PRN Reason: Constipation Last Admin: 06/16/18 08:41 Dose: 100 mg Enoxaparin Sodium (Lovenox) 40 mg SC DAILY [facility]; Protocol Last Admin: 06/21/18 09:31 Dose: 40 mg Gabapentin (Neurontin) 100 mg PO Q8 [facility] Last Admin: 06/21/18 09:27 Dose: 100 mg Guaifenesin/Dextromethorphan (Robitussin Dm) 10 ml PO Q4 PRN PRN Reason: Cough Last Admin: 06/21/18 10:07 Dose: 10 ml Lidocaine (Lidoderm) 2 ea TD DAILY [facility] Last Admin: 06/21/18 09:31 Dose: 2 ea Meclizine HCl (Antivert) 25 mg PO Q12 [facility] Last Admin: 06/21/18 09:27 Dose: 25 mg Metoprolol Tartrate (Lopressor) 25 mg PO Q12 [facility] Last Admin: 06/20/18 09:06 Dose: 25 mg Nystatin (Nystop Topical Powder) 1 applic TOP TID [facility] Last Admin: 06/21/18 12:54 Dose: Not Given Oxycodone HCl (Oxycontin Extended Release Tab) 10 mg PO Q12 [facility] Stop: 06/23/18 09:01 Last Admin: 06/21/18 09:27 Dose: 10 mg Pantoprazole Sodium (Protonix Ec Tab) 20 mg PO DAILY [facility] Last Admin: 06/21/18 09:26 Dose: 20 mg - Labs Labs: 06/20/18 13:20 06/20/18 13:20 Attending/Attestation - Attestation I have personally seen and examined this patient.: Yes I have fully participated in the care of the patient.: Yes I have reviewed all pertinent clinical information, including history, physical exam and plan: Yes
--- NOTE | 2018-06-21 14:10 | CP.PCM.CON ---
History of Present Illness - History of Present Illness History of Present Illness: Neurology Consultation Note: Consult requested by Dr. Meeks Mrs. Scales is a 52-year-old woman with a past medical history of cervical cancer, hysterectomy, PE, SBO, previous stroke, respiratory distress, was intubated for over a month, trached and this was then reversed, was admitted for left lower abdominal pain associated with nausea. She is now in TCU for Urinary Tract Infection (has indwelling catheter), found to have hydronephrosis. She had a syncopal episode yesterday associated with brief right side weakness while in P T. She was placed back in the bed and was then back to baseline. Non-contrast CT scan of the head was done and showed a linear hyperdensity in that may have represented a small area of bleed, but this was not confirmed with MRI. 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 The patient is currently at baseline with no new complaints. She has left side hemiplegia at baseline and has a hoarse voice with dysarthria from previous stroke and trach, respectively. Review of Systems - Constitutional Constitutional: As Per HPI - EENT Eyes: absent: As Per HPI, Blind Spots, Blurred Vision, Change in Vision, Decreased Night Vision, Diplopia, Discharge, Dry Eye, Exophthalmos, Floaters, Irritation, Itchy Eyes, Loss of Peripheral Vision, Pain, Photophobia, Requires Corrective Lenses, Sees Flashes, Spots in Vision, Tunnel Vision, Other Visual Disturbances, Loss of Vision, Other Ears: absent: As Per HPI, Decreased Hearing, Ear Discharge, Ear Pain, Tinnitus, Abnormal Hearing, Disequilibrium, Dizziness, Other Nose/Mouth/Throat: absent: As Per HPI, Epistaxis, Nasal Congestion, Nasal Discharge, Nasal Obstruction, Nasal Trauma, Nose Pain, Post Nasal Drip, Sinus Pain, Sinus Pressure, Bleeding Gums, Change in Voice, Dental Pain, Dry Mouth, Dysphagia, Halitosis, Hoarsness, Lip Swelling, Mouth Lesions, Mouth Pain, Odynophagia, Sore Throat, Throat Swelling, Tongue Swelling, Facial Pain, Neck Pain, Neck Mass, Other - Cardiovascular Cardiovascular: absent: As Per HPI, Acrocyanosis, Chest Pain, Chest Pain at Rest, Chest Pain with Activity, Claudication, Diaphoresis, Dyspnea, Dyspnea on Exertion, Edema, Irregular Heart Rhythm, Pain Radiating to Arm/Neck/Jaw, Leg Edema, Leg Ulcers, Lightheadedness, Orthopnea, Palpitations, Paroxysmal Nocturnal Dyspnea, Pedal Edema, Radiating Pain, Rapid Heart Rate, Slow Heart Rate, Syncope, Other - Respiratory Respiratory: absent: As Per HPI, Cough, Dyspnea, Hemoptysis, Dyspnea on Exertion, Wheezing, Snoring, Stridor, Pain on Inspiration, Chest Congestion, Excessive Mucous Production, Change in Mucous Color, Pain with Coughing, Other - Gastrointestinal Gastrointestinal: absent: As Per HPI, Abdominal Pain, Belching, Bloating, Change in Bowel Habits, Change in Stool Character, Coffee Ground Emesis, Constipation, Cramping, Diarrhea, Dyspepsia, Dysphagia, Early Satiety, Excessive Flatus, Fecal Incontinence, Heartburn, Hematemesis, Hematochezia, Loose Stools, Melena, Nausea, Odynophagia, Temesmus, Vomiting, Other - Genitourinary Genitourinary: As Per HPI - Musculoskeletal Musculoskeletal: absent: As Per HPI, Abnormal Gait, Arthralgias, Atrophy, Back Pain, Deformity, Joint Swelling, Limited Range of Motion, Loss of Height, Muscle Cramps, Muscle Weakness, Myalgias, Neck Pain, Numbness, Radiating Pain into Limb, Stiffness, Tingling, Other - Integumentary Integumentary: absent: As Per HPI, Acne, Alopecia, Bleeding Lesions, Change in Hair, Change in Nails, Change in Pigmentation, Changing Lesions, Dry Skin, Erythema, Furuncle, Hirsutism, Lesions, New Lesions, Non-Healing Lesions, Photosensitivity, Pruritus, Rash, Skin Pain, Skin Ulcer, Sores, Striae, Swelling, Unusual Bruising, Wounds, Jaundice, Other - Neurological Neurological: As Per HPI - Psychiatric Psychiatric: absent: As Per HPI, Abnormal Sleep Pattern, Anhedonia, Anxiety, Auditory Hallucinations, Behavioral Changes, Change in Appetite, Change in Libido, Confusion, Depression, Difficulty Concentrating, Hallucinations, Homicidal Ideation, Hopelessness, Irritability, Memory Loss, Mood Swings, Panic Attacks, Paranoia, Suicidal Ideation, Visual Hallucinations, Tactile Hallucinations, Other Past Patient History - Past Medical History & Family History Past Medical History?: Yes - Past Social History Smoking Status: Never Smoked Alcohol: None Drugs: Denies - CARDIAC Hx Hypercholesterolemia: Yes Hx Hypertension: Yes - PULMONARY Hx Chronic Obstructive Pulmonary Disease (COPD): Yes - NEUROLOGICAL HX Cerebrovascular Accident: Yes - HEENT Hx HEENT Problems: Yes (wear eyeglasses) - RENAL Hx Chronic Kidney Disease: Yes - ENDOCRINE/METABOLIC Hx Endocrine Disorders: No - HEMATOLOGICAL/ONCOLOGICAL Hx Human Immunodeficiency Virus (HIV): No - INTEGUMENTARY Hx Dermatological Problems: Yes Other/Comment: Sacral,buttocks excoriations - MUSCULOSKELETAL/RHEUMATOLOGICAL Hx Falls: No - GASTROINTESTINAL Hx Gastritis: Yes - GENITOURINARY/GYNECOLOGICAL Hx Genitourinary Disorders: Yes Hx Cervical Cancer: Yes Hx Hematuria: Yes Hx Incontinence: Yes Hx Ovarian Cancer: Yes Hx Urinary Tract Infection: Yes - PSYCHIATRIC Hx Substance Use: No - SURGICAL HISTORY Hx Appendectomy: Yes Hx Cholecystectomy: Yes - ANESTHESIA Hx Anesthesia: Yes Hx Anesthesia Reactions: No Hx Malignant Hyperthermia: No Meds Allergies/Adverse Reactions: Allergies Allergy/AdvReac Type Severity Reaction Status Date / Time cimetidine [From [employer]] Allergy RASH Verified 06/10/18 22:34 nickel Allergy RASH Verified 06/10/18 22:34 Penicillins Allergy RASH Verified 06/10/18 22:34 - Medications Medications: Current Medications Acetaminophen/Codeine Phosphate (Tylenol/Codeine 300 Mg/30 Mg) 1 tab PO Q4 PRN PRN Reason: Pain, moderate (4-7) Last Admin: 06/21/18 13:24 Dose: 1 tab Albuterol/Ipratropium (Duoneb 3 Mg/0.5 Mg (3 Ml) Ud) 3 ml IH TID PRN PRN Reason: Shortness of Breath Benzocaine/Menthol (Cepacol Sore Throat) 1 chelly PO Q2 PRN PRN Reason: Sore Throat Calamine (Calamine Lotion) 1 applic TOP Q4 PRN PRN Reason: Itching / Pruritus Last Admin: 06/20/18 01:30 Dose: 1 applic Camphor/Menthol (Bengay) 1 applic TOP Q6 PRN PRN Reason: Pain, Mild (1-3) Last Admin: 06/19/18 17:29 Dose: 1 applic Dimethicone (Proshield Plus Skin Protectant) 1 applic TOP Q8 [facility] Last Admin: 06/21/18 09:27 Dose: 1 applic Docusate Sodium (Colace) 100 mg PO BID PRN PRN Reason: Constipation Last Admin: 06/16/18 08:41 Dose: 100 mg Enoxaparin Sodium (Lovenox) 40 mg SC DAILY [facility]; Protocol Last Admin: 06/21/18 09:31 Dose: 40 mg Gabapentin (Neurontin) 100 mg PO Q8 [facility] Last Admin: 06/21/18 09:27 Dose: 100 mg Guaifenesin/Dextromethorphan (Robitussin Dm) 10 ml PO Q4 PRN PRN Reason: Cough Last Admin: 06/21/18 10:07 Dose: 10 ml Lidocaine (Lidoderm) 2 ea TD DAILY [facility] Last Admin: 06/21/18 09:31 Dose: 2 ea Meclizine HCl (Antivert) 25 mg PO Q12 [facility] Last Admin: 06/21/18 09:27 Dose: 25 mg Metoprolol Tartrate (Lopressor) 25 mg PO Q12 [facility] Last Admin: 06/20/18 09:06 Dose: 25 mg Nystatin (Nystop Topical Powder) 1 applic TOP TID [facility] Last Admin: 06/21/18 12:54 Dose: Not Given Oxycodone HCl (Oxycontin Extended Release Tab) 10 mg PO Q12 [facility] Stop: 06/23/18 09:01 Last Admin: 06/21/18 09:27 Dose: 10 mg Pantoprazole Sodium (Protonix Ec Tab) 20 mg PO DAILY [facility] Last Admin: 06/21/18 09:26 Dose: 20 mg Physical Exam - Constitutional Appears: Well - Head Exam Head Exam: ATRAUMATIC, NORMAL INSPECTION, NORMOCEPHALIC - Eye Exam Eye Exam: EOMI, Normal appearance, PERRL Pupil Exam: NORMAL ACCOMODATION, PERRL - ENT Exam ENT Exam: Mucous Membranes Moist, Normal Exam - Neck Exam Neck exam: Positive for: Normal Inspection - Respiratory Exam Respiratory Exam: Clear to Auscultation Bilateral, NORMAL BREATHING PATTERN - Cardiovascular Exam Cardiovascular Exam: REGULAR RHYTHM, +S1, +S2 - GI/Abdominal Exam GI & Abdominal Exam: Normal Bowel Sounds, Soft. absent: Tenderness - Extremities Exam Extremities exam: Positive for: normal inspection - Back Exam Back exam: NORMAL INSPECTION - Neurological Exam Neurological exam: Alert, CN II-XII Intact, Oriented x3 Additional comments: AAOX3, speech is dysarthric and hoarse. Left side hemiplegia with right arm and leg contracture, right side lower extremity weakness due to deconditioning, reflexes brisk on the left. - Psychiatric Exam Psychiatric exam: Normal Affect, Normal Mood - Skin Skin Exam: Dry, Intact, Normal Color, Warm Results - Vital Signs Recent Vital Signs: Last Vital Signs Temp 98.1 F 06/21/18 08:12 Pulse 80 06/21/18 08:12 Resp 18 06/21/18 08:12 BP 90/62 L 06/21/18 08:12 Pulse Ox 95 06/21/18 08:12 - Labs Result Diagrams: 06/20/18 13:20 06/20/18 13:20 Assessment & Plan (1) Syncope and collapse Assessment and Plan: Likely neurocardiogenic or vasovagal syncope. However, with the presence of multiple cavernomas, the patient is also a higher risk for seizures. I recommend obtaining an EEG for further evaluation. Avoid antiplatelet agents and full dose anticoagulation. SQ DVT Px is okay. Thank you for this consultation. Status: Acute
[2018-06-21 15:50] VITALS: RESP 20
--- NOTE | 2018-06-21 17:12 | CP.PCM.PN ---
Subjective - Date & Time of Evaluation Date of Evaluation: 06/21/18 Time of Evaluation: 17:11 - Subjective Subjective: Patient seen in the room, is present denies sob/cp max assist to transfer motivated but very limited continue current care consider acute vs [facility] after this stay. Objective - Vital Signs/Intake and Output Vital Signs (last 24 hours): Temp Pulse Resp BP Pulse Ox 98.3 F 100 H 20 120/68 92 L 06/21/18 15:50 06/21/18 15:50 06/21/18 15:50 06/21/18 15:50 06/21/18 15:50 - Medications Medications: Current Medications Acetaminophen/Codeine Phosphate (Tylenol/Codeine 300 Mg/30 Mg) 1 tab PO Q4 PRN PRN Reason: Pain, moderate (4-7) Last Admin: 06/21/18 13:24 Dose: 1 tab Albuterol/Ipratropium (Duoneb 3 Mg/0.5 Mg (3 Ml) Ud) 3 ml IH TID PRN PRN Reason: Shortness of Breath Benzocaine/Menthol (Cepacol Sore Throat) 1 chelly PO Q2 PRN PRN Reason: Sore Throat Calamine (Calamine Lotion) 1 applic TOP Q4 PRN PRN Reason: Itching / Pruritus Last Admin: 06/20/18 01:30 Dose: 1 applic Camphor/Menthol (Bengay) 1 applic TOP Q6 PRN PRN Reason: Pain, Mild (1-3) Last Admin: 06/19/18 17:29 Dose: 1 applic Dimethicone (Proshield Plus Skin Protectant) 1 applic TOP Q8 [facility] Last Admin: 06/21/18 17:03 Dose: 1 applic Docusate Sodium (Colace) 100 mg PO BID PRN PRN Reason: Constipation Last Admin: 06/16/18 08:41 Dose: 100 mg Enoxaparin Sodium (Lovenox) 40 mg SC DAILY [facility]; Protocol Last Admin: 06/21/18 09:31 Dose: 40 mg Gabapentin (Neurontin) 100 mg PO Q8 [facility] Last Admin: 06/21/18 17:03 Dose: 100 mg Guaifenesin/Dextromethorphan (Robitussin Dm) 10 ml PO Q4 PRN PRN Reason: Cough Last Admin: 06/21/18 10:07 Dose: 10 ml Lidocaine (Lidoderm) 2 ea TD DAILY [facility] Last Admin: 06/21/18 09:31 Dose: 2 ea Meclizine HCl (Antivert) 25 mg PO Q12 [facility] Last Admin: 06/21/18 09:27 Dose: 25 mg Metoprolol Tartrate (Lopressor) 25 mg PO Q12 [facility] Last Admin: 06/20/18 09:06 Dose: 25 mg Nystatin (Nystop Topical Powder) 1 applic TOP TID [facility] Last Admin: 06/21/18 17:03 Dose: 1 applic Oxycodone HCl (Oxycontin Extended Release Tab) 10 mg PO Q12 [facility] Stop: 06/23/18 09:01 Last Admin: 06/21/18 09:27 Dose: 10 mg Pantoprazole Sodium (Protonix Ec Tab) 20 mg PO DAILY [facility] Last Admin: 06/21/18 09:26 Dose: 20 mg - Labs Labs: 06/20/18 13:20 06/20/18 13:20
[2018-06-22] MEDS: Proshield Plus GEL TOP SCH ×3 (00:41→16:52)
[2018-06-22 06:29] LABS: HDL CHOLESTEROL 27 MG/DL (30-70)
[2018-06-22 06:40] LABS: LDL CHOLESTEROL 160 mg/dL (0-129)
[2018-06-22] MEDS: Lidocaine 5% Patch TD SCH (09:08)
[2018-06-22] MEDS: Enoxaparin 40 mg Syringe SC SCH (09:12)
[2018-06-22] MEDS: Pantoprazole 20 mg EC Tab PO SCH (09:12)
[2018-06-22] MEDS: oxyCODONE 10 mg ER Tab (oxyCONTIN) PO SCH ×2 (09:14→21:15)
--- NOTE | 2018-06-22 11:26 | CP.PCM.PN ---
Subjective - Date & Time of Evaluation Date of Evaluation: 06/22/18 Time of Evaluation: 11:26 Objective - Vital Signs/Intake and Output Vital Signs (last 24 hours): Temp Pulse Resp BP Pulse Ox 97.6 F 100 H 20 110/75 98 06/22/18 08:13 06/22/18 08:13 06/22/18 08:13 06/22/18 08:13 06/22/18 08:13 Intake and Output: 06/22/18 06/22/18 06:59 18:59 Intake Total 300 Output Total 600 Balance -300 - Medications Medications: Current Medications Acetaminophen/Codeine Phosphate (Tylenol/Codeine 300 Mg/30 Mg) 1 tab PO Q4 PRN PRN Reason: Pain, moderate (4-7) Last Admin: 06/21/18 17:29 Dose: 1 tab Albuterol/Ipratropium (Duoneb 3 Mg/0.5 Mg (3 Ml) Ud) 3 ml IH TID PRN PRN Reason: Shortness of Breath Benzocaine/Menthol (Cepacol Sore Throat) 1 chelly PO Q2 PRN PRN Reason: Sore Throat Calamine (Calamine Lotion) 1 applic TOP Q4 PRN PRN Reason: Itching / Pruritus Last Admin: 06/20/18 01:30 Dose: 1 applic Camphor/Menthol (Bengay) 1 applic TOP Q6 PRN PRN Reason: Pain, Mild (1-3) Last Admin: 06/19/18 17:29 Dose: 1 applic Dimethicone (Proshield Plus Skin Protectant) 1 applic TOP Q8 [facility] Last Admin: 06/22/18 09:22 Dose: 1 applic Docusate Sodium (Colace) 100 mg PO BID PRN PRN Reason: Constipation Last Admin: 06/16/18 08:41 Dose: 100 mg Enoxaparin Sodium (Lovenox) 40 mg SC DAILY [facility]; Protocol Last Admin: 06/22/18 09:12 Dose: 40 mg Gabapentin (Neurontin) 100 mg PO Q8 [facility] Last Admin: 06/22/18 09:12 Dose: 100 mg Guaifenesin/Dextromethorphan (Robitussin Dm) 10 ml PO Q4 PRN PRN Reason: Cough Last Admin: 06/21/18 10:07 Dose: 10 ml Lidocaine (Lidoderm) 2 ea TD DAILY [facility] Last Admin: 06/22/18 09:08 Dose: 2 ea Meclizine HCl (Antivert) 25 mg PO Q12 [facility] Last Admin: 06/22/18 09:08 Dose: 25 mg Metoprolol Tartrate (Lopressor) 25 mg PO Q12 [facility] Last Admin: 06/20/18 09:06 Dose: 25 mg Nystatin (Nystop Topical Powder) 1 applic TOP TID [facility] Last Admin: 06/22/18 09:12 Dose: 1 applic Oxycodone HCl (Oxycontin Extended Release Tab) 10 mg PO Q12 [facility] Stop: 06/23/18 09:01 Last Admin: 06/22/18 09:14 Dose: 10 mg Pantoprazole Sodium (Protonix Ec Tab) 20 mg PO DAILY [facility] Last Admin: 06/22/18 09:12 Dose: 20 mg - Labs Labs: 06/20/18 13:20 06/20/18 13:20
[2018-06-22] MEDS: Benzocaine/Menthol (Cepacol) Lozenge PO PRN (18:26)
[2018-06-23] MEDS: Proshield Plus GEL TOP SCH ×3 (00:03→17:48)
[2018-06-23] MEDS: Menthol/Methyl Salicylate Oinment TOP PRN (04:09)
[2018-06-23] MEDS: Benzocaine/Menthol (Cepacol) Lozenge PO PRN ×3 (06:07→23:09)
[2018-06-23] MEDS: oxyCODONE 10 mg ER Tab (oxyCONTIN) PO SCH ×2 (08:24→21:08)
[2018-06-23] MEDS: Enoxaparin 40 mg Syringe SC SCH (08:25)
[2018-06-23] MEDS: Lidocaine 5% Patch TD SCH (08:25)
[2018-06-23] MEDS: Pantoprazole 20 mg EC Tab PO SCH (08:27)
--- NOTE | 2018-06-23 10:25 | PCM.EEG ---
Electroencephalogram Report - Electroencephalogram Report Procedure Date: 06/22/18 Medication: Gabapentin, Tylenol, Oxycodone. Interpretation: Technical Information: This was a 16-channel EEG, 1-channel EKG , performed using an Verbling machine., electrodes were applied according to the 10/20 international placement system, impedances were less than 5 K Ohm. Start; 12;32 End; 1;23 Total 48 min Clinical Information: This EEG was performed on a 52 -year old patient with syncope. EEG Detail: During resting wakefulness there was a symmetric posterior dominant rhythm at 7 Hz, 30-50 uV, which was reactive to eye opening and closing. Drowsiness (21;47) was associated with fragmentation of the posterior dominant rhythm and with slow roving eye movements. Sleep was seen at 13;00, characterized by bi central spindles. Hyperventilation was not performed. Photic stimulation was performed and there were no changes in the record. ECG was associated with a normal sinus rhythm. 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 These findings do not support a specific etiology. No seizures, not in status epilepticus
--- NOTE | 2018-06-23 10:49 | CP.PCM.PN ---
Subjective - Date & Time of Evaluation Date of Evaluation: 06/23/18 Time of Evaluation: 10:46 - Subjective Subjective: Neuro Follow-Up Note: Mrs. Yordy Schafer was evaluated this afternoon in TCU. at bedside. Today the pt complains of a sore throat and on/off dizziness. Per the pt has episodes of syncope for approx several seconds and then wakes up. Pt had episode in front of me during neuro exam where she slumps over in chair, closes eyes, but quickly reopens eyes and becomes responsive when eyes opened by examiner. She denies h/a, visual changes, chest pain, palpitations, sob, cough, abd pain, n/v/d. Objective - Vital Signs/Intake and Output Vital Signs (last 24 hours): Temp Pulse Resp BP Pulse Ox 98.4 F 105 H 20 108/72 98 06/23/18 07:51 06/23/18 07:51 06/23/18 07:51 06/23/18 07:51 06/23/18 07:51 Intake and Output: 06/23/18 06/23/18 06:59 18:59 Output Total 1600 Balance -1600 - Medications Medications: Current Medications Acetaminophen/Codeine Phosphate (Tylenol/Codeine 300 Mg/30 Mg) 1 tab PO Q4 PRN PRN Reason: Pain, moderate (4-7) Last Admin: 06/21/18 17:29 Dose: 1 tab Albuterol/Ipratropium (Duoneb 3 Mg/0.5 Mg (3 Ml) Ud) 3 ml IH TID PRN PRN Reason: Shortness of Breath Benzocaine/Menthol (Cepacol Sore Throat) 1 chelly PO Q2 PRN PRN Reason: Sore Throat Last Admin: 06/23/18 06:07 Dose: 1 chelly Calamine (Calamine Lotion) 1 applic TOP Q4 PRN PRN Reason: Itching / Pruritus Last Admin: 06/20/18 01:30 Dose: 1 applic Camphor/Menthol (Bengay) 1 applic TOP Q6 PRN PRN Reason: Pain, Mild (1-3) Last Admin: 06/23/18 04:09 Dose: 1 applic Dimethicone (Proshield Plus Skin Protectant) 1 applic TOP Q8 [facility] Last Admin: 06/23/18 08:24 Dose: 1 applic Docusate Sodium (Colace) 100 mg PO BID PRN PRN Reason: Constipation Last Admin: 06/16/18 08:41 Dose: 100 mg Enoxaparin Sodium (Lovenox) 40 mg SC DAILY [facility]; Protocol Last Admin: 06/23/18 08:25 Dose: 40 mg Gabapentin (Neurontin) 100 mg PO Q8 [facility] Last Admin: 06/23/18 08:24 Dose: 100 mg Guaifenesin/Dextromethorphan (Robitussin Dm) 10 ml PO Q4 PRN PRN Reason: Cough Last Admin: 06/21/18 10:07 Dose: 10 ml Lidocaine (Lidoderm) 2 ea TD DAILY [facility] Last Admin: 06/23/18 08:25 Dose: 2 ea Loratadine (Claritin) 10 mg PO DAILY [facility] Last Admin: 06/23/18 08:27 Dose: 10 mg Meclizine HCl (Antivert) 25 mg PO Q12 [facility] Last Admin: 06/23/18 08:27 Dose: 25 mg Metoprolol Tartrate (Lopressor) 25 mg PO Q12 [facility] Last Admin: 06/20/18 09:06 Dose: 25 mg Nystatin (Nystop Topical Powder) 1 applic TOP TID [facility] Last Admin: 06/23/18 08:23 Dose: 1 applic Pantoprazole Sodium (Protonix Ec Tab) 20 mg PO DAILY [facility] Last Admin: 06/23/18 08:27 Dose: 20 mg - Labs Labs: 06/20/18 13:20 06/20/18 13:20 - Constitutional Appears: Well, Non-toxic - Head Exam Head Exam: ATRAUMATIC, NORMAL INSPECTION, NORMOCEPHALIC - Eye Exam Eye Exam: EOMI, Normal appearance (wears glasses). absent: Nystagmus Pupil Exam: NORMAL ACCOMODATION, PERRL - ENT Exam ENT Exam: Mucous Membranes Moist - Neck Exam Neck Exam: Full ROM, Normal Inspection - Respiratory Exam Respiratory Exam: NORMAL BREATHING PATTERN - Extremities Exam Extremities Exam: Normal Inspection - Back Exam Back Exam: Full ROM - Neurological Exam Neurological Exam: Alert, Awake, CN II-XII Intact Additional comments: AAOX3 Speech is dysarthric and hoarse. Left side hemiplegia with right arm and leg contracture noted with RLE weakness 2/2 deconditioning, reflexes brisk on the left. Pt had episode in front of me during neuro exam where she slumps over in chair, closes eyes, but quickly reopens eyes and becomes responsive when eyes opened by examiner. 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 These findings do not support a specific etiology. No seizures, not in status epilepticus -Continue to hold full dose AC and anti-platelets. -May continue DVT ppx dose of Lovenox. -Continue PT as tolerated. -Recommend a cardiology consult if not already done as these episodes may be neurocardiogenic or 2/2 vasovagal. -Recommend a continuous VEEG as outpatient. -Notify neuro team of any acute changes in patient's condition. Case discussed with Dr. Puentes Status: Acute
--- NOTE | 2018-06-23 18:24 | CP.PCM.PN ---
Subjective - Date & Time of Evaluation Date of Evaluation: 06/23/18 Time of Evaluation: 18:23 - Subjective Subjective: Patient seen in the room minimal functional independence can do UE self care only denies significant pain continue therapies may benefit from a more prolonged therapy course Objective - Vital Signs/Intake and Output Vital Signs (last 24 hours): Temp Pulse Resp BP Pulse Ox 99.2 F 115 H 20 102/63 94 L 06/23/18 17:10 06/23/18 17:10 06/23/18 17:10 06/23/18 17:10 06/23/18 17:10 Intake and Output: 06/23/18 06/23/18 06:59 18:59 Output Total 1600 Balance -1600 - Medications Medications: Current Medications Acetaminophen/Codeine Phosphate (Tylenol/Codeine 300 Mg/30 Mg) 1 tab PO Q4 PRN PRN Reason: Pain, moderate (4-7) Last Admin: 06/21/18 17:29 Dose: 1 tab Albuterol/Ipratropium (Duoneb 3 Mg/0.5 Mg (3 Ml) Ud) 3 ml IH TID PRN PRN Reason: Shortness of Breath Benzocaine/Menthol (Cepacol Sore Throat) 1 chelly PO Q2 PRN PRN Reason: Sore Throat Last Admin: 06/23/18 17:46 Dose: 1 chelly Calamine (Calamine Lotion) 1 applic TOP Q4 PRN PRN Reason: Itching / Pruritus Last Admin: 06/20/18 01:30 Dose: 1 applic Camphor/Menthol (Bengay) 1 applic TOP Q6 PRN PRN Reason: Pain, Mild (1-3) Last Admin: 06/23/18 04:09 Dose: 1 applic Dimethicone (Proshield Plus Skin Protectant) 1 applic TOP Q8 [facility] Last Admin: 06/23/18 17:48 Dose: 1 applic Docusate Sodium (Colace) 100 mg PO BID PRN PRN Reason: Constipation Last Admin: 06/16/18 08:41 Dose: 100 mg Enoxaparin Sodium (Lovenox) 40 mg SC DAILY [facility]; Protocol Last Admin: 06/23/18 08:25 Dose: 40 mg Gabapentin (Neurontin) 100 mg PO Q8 [facility] Last Admin: 06/23/18 17:45 Dose: 100 mg Guaifenesin/Dextromethorphan (Robitussin Dm) 10 ml PO Q4 PRN PRN Reason: Cough Last Admin: 06/21/18 10:07 Dose: 10 ml Lidocaine (Lidoderm) 2 ea TD DAILY [facility] Last Admin: 06/23/18 08:25 Dose: 2 ea Loratadine (Claritin) 10 mg PO DAILY [facility] Last Admin: 06/23/18 08:27 Dose: 10 mg Meclizine HCl (Antivert) 25 mg PO Q12 [facility] Last Admin: 06/23/18 08:27 Dose: 25 mg Metoprolol Tartrate (Lopressor) 25 mg PO Q12 [facility] Last Admin: 06/20/18 09:06 Dose: 25 mg Nystatin (Nystop Topical Powder) 1 applic TOP TID [facility] Last Admin: 06/23/18 17:46 Dose: 1 applic Oxycodone HCl (Oxycontin Extended Release Tab) 10 mg PO Q12 [facility] Stop: 06/26/18 21:01 Pantoprazole Sodium (Protonix Ec Tab) 20 mg PO DAILY [facility] Last Admin: 06/23/18 08:27 Dose: 20 mg - Labs Labs: 06/20/18 13:20 06/20/18 13:20
[2018-06-24] MEDS: Proshield Plus GEL TOP SCH ×3 (00:08→16:55)
[2018-06-24] MEDS: Enoxaparin 40 mg Syringe SC SCH (09:53)
[2018-06-24] MEDS: Lidocaine 5% Patch TD SCH (09:54)
[2018-06-24] MEDS: Pantoprazole 20 mg EC Tab PO SCH (09:55)
[2018-06-24] MEDS: oxyCODONE 10 mg ER Tab (oxyCONTIN) PO SCH ×2 (09:56→21:28)
[2018-06-24] MEDS: Acetaminophen-Codeine 300/30 mg Tab PO PRN (11:24)
[2018-06-24] MEDS: Benzocaine/Menthol (Cepacol) Lozenge PO PRN ×2 (11:25→21:27)
[2018-06-25] MEDS: Proshield Plus GEL TOP SCH ×3 (01:30→16:57)
[2018-06-25] MEDS: Acetaminophen-Codeine 300/30 mg Tab PO PRN (05:58)
[2018-06-25] MEDS: Benzocaine/Menthol (Cepacol) Lozenge PO PRN ×3 (05:59→14:50)
[2018-06-25] MEDS: Lidocaine 5% Patch TD SCH (08:51)
[2018-06-25] MEDS: Pantoprazole 20 mg EC Tab PO SCH (08:53)
[2018-06-25] MEDS: Calamine/Zinc Oxide LOTION TOP PRN (09:00)
[2018-06-25] MEDS: oxyCODONE 10 mg ER Tab (oxyCONTIN) PO SCH ×2 (09:00→21:53)
[2018-06-25 10:06] LABS: ALB/GLOB RATIO 0.9 (1.0-2.1); ALBUMIN 3.7 g/dL (3.5-5.0); ALT/SGPT 19 U/L (9-52); AST/SGOT 27 U/L (14-36); BLOOD UREA NITROGEN 21 mg/dl (7-17); CALCIUM 10.1 mg/dL (8.4-10.2); GFR NON-AFRICAN AMERICAN 58
[2018-06-25] MEDS: Enoxaparin 40 mg Syringe SC SCH (13:56)
[2018-06-26] MEDS: Proshield Plus GEL TOP SCH ×3 (00:21→16:55)
--- NOTE | 2018-06-26 01:02 | CP.PCM.PN ---
Subjective - Date & Time of Evaluation Date of Evaluation: 06/19/18 Time of Evaluation: 11:00 - Subjective Subjective: Patient is stable Has no fever Objective - Vital Signs/Intake and Output Vital Signs (last 24 hours): Temp Pulse Resp BP Pulse Ox 99.7 F H 104 H 20 111/78 92 L 06/25/18 19:55 06/25/18 19:55 06/25/18 19:55 06/25/18 19:55 06/25/18 19:55 Intake and Output: 06/25/18 06/26/18 18:59 06:59 Output Total 800 Balance -800 - Medications Medications: Current Medications Acetaminophen/Codeine Phosphate (Tylenol/Codeine 300 Mg/30 Mg) 1 tab PO Q4 PRN PRN Reason: Pain, moderate (4-7) Last Admin: 06/25/18 05:58 Dose: 1 tab Albuterol/Ipratropium (Duoneb 3 Mg/0.5 Mg (3 Ml) Ud) 3 ml IH TID PRN PRN Reason: Shortness of Breath Benzocaine/Menthol (Cepacol Sore Throat) 1 chelly PO Q2 PRN PRN Reason: Sore Throat Last Admin: 06/25/18 14:50 Dose: 1 chelly Camphor/Menthol (Bengay) 1 applic TOP Q6 PRN PRN Reason: Pain, Mild (1-3) Last Admin: 06/23/18 04:09 Dose: 1 applic Dimethicone (Proshield Plus Skin Protectant) 1 applic TOP Q8 [facility] Last Admin: 06/26/18 00:21 Dose: 1 applic Docusate Sodium (Colace) 100 mg PO BID PRN PRN Reason: Constipation Last Admin: 06/16/18 08:41 Dose: 100 mg Enoxaparin Sodium (Lovenox) 40 mg SC DAILY [facility]; Protocol Last Admin: 06/25/18 13:56 Dose: 40 mg Gabapentin (Neurontin) 100 mg PO Q8 [facility] Last Admin: 06/26/18 00:22 Dose: 100 mg Guaifenesin/Dextromethorphan (Robitussin Dm) 10 ml PO Q4 PRN PRN Reason: Cough Last Admin: 06/21/18 10:07 Dose: 10 ml Lactic Acid (Lac-Hydrin 12% Lotion (225 G)) 1 applic TOP BID [facility] Last Admin: 06/25/18 16:56 Dose: 1 applic Lidocaine (Lidoderm) 2 ea TD DAILY [facility] Last Admin: 06/25/18 08:51 Dose: 2 ea Loratadine (Claritin) 10 mg PO DAILY [facility] Last Admin: 06/25/18 08:51 Dose: 10 mg Meclizine HCl (Antivert) 25 mg PO Q12 [facility] Last Admin: 06/25/18 21:53 Dose: 25 mg Metoprolol Tartrate (Lopressor) 25 mg PO Q12 [facility] Last Admin: 06/20/18 09:06 Dose: 25 mg Nystatin (Nystop Topical Powder) 1 applic TOP TID [facility] Last Admin: 06/25/18 16:57 Dose: 1 applic Ondansetron HCl (Zofran Inj) 4 mg IVP Q6 PRN PRN Reason: Nausea/Vomiting Last Admin: 06/25/18 13:55 Dose: 4 mg Oxycodone HCl (Oxycontin Extended Release Tab) 10 mg PO Q12 [facility] Stop: 06/26/18 21:01 Last Admin: 06/25/18 21:53 Dose: 10 mg Pantoprazole Sodium (Protonix Ec Tab) 20 mg PO DAILY [facility] Last Admin: 06/25/18 08:53 Dose: 20 mg - Labs Labs: 06/20/18 13:20 06/25/18 08:39 - Head Exam Head Exam: NORMAL INSPECTION - Eye Exam Eye Exam: Normal appearance - Respiratory Exam Respiratory Exam: Clear to Ausculation Bilateral - Cardiovascular Exam Cardiovascular Exam: REGULAR RHYTHM - GI/Abdominal Exam GI & Abdominal Exam: Normal Bowel Sounds Assessment and Plan (1) Urinary tract infection Status: Acute (2) Physical debility Status: Acute (3) Pneumonia Status: Acute (4) Status post CVA Status: Acute - Assessment and Plan (Free Text) Plan: Cont meds Cont tx Cont iv antibiotics
--- NOTE | 2018-06-26 01:03 | CP.PCM.PN ---
Subjective - Date & Time of Evaluation Date of Evaluation: 06/20/18 Time of Evaluation: 11:20 - Subjective Subjective: Patient remains stable Has no chest pain or SOB Afebrile. Objective - Vital Signs/Intake and Output Vital Signs (last 24 hours): Temp Pulse Resp BP Pulse Ox 99.7 F H 104 H 20 111/78 92 L 06/25/18 19:55 06/25/18 19:55 06/25/18 19:55 06/25/18 19:55 06/25/18 19:55 Intake and Output: 06/25/18 06/26/18 18:59 06:59 Output Total 800 Balance -800 - Medications Medications: Current Medications Acetaminophen/Codeine Phosphate (Tylenol/Codeine 300 Mg/30 Mg) 1 tab PO Q4 PRN PRN Reason: Pain, moderate (4-7) Last Admin: 06/25/18 05:58 Dose: 1 tab Albuterol/Ipratropium (Duoneb 3 Mg/0.5 Mg (3 Ml) Ud) 3 ml IH TID PRN PRN Reason: Shortness of Breath Benzocaine/Menthol (Cepacol Sore Throat) 1 chelly PO Q2 PRN PRN Reason: Sore Throat Last Admin: 06/25/18 14:50 Dose: 1 chelly Camphor/Menthol (Bengay) 1 applic TOP Q6 PRN PRN Reason: Pain, Mild (1-3) Last Admin: 06/23/18 04:09 Dose: 1 applic Dimethicone (Proshield Plus Skin Protectant) 1 applic TOP Q8 [facility] Last Admin: 06/26/18 00:21 Dose: 1 applic Docusate Sodium (Colace) 100 mg PO BID PRN PRN Reason: Constipation Last Admin: 06/16/18 08:41 Dose: 100 mg Enoxaparin Sodium (Lovenox) 40 mg SC DAILY [facility]; Protocol Last Admin: 06/25/18 13:56 Dose: 40 mg Gabapentin (Neurontin) 100 mg PO Q8 [facility] Last Admin: 06/26/18 00:22 Dose: 100 mg Guaifenesin/Dextromethorphan (Robitussin Dm) 10 ml PO Q4 PRN PRN Reason: Cough Last Admin: 06/21/18 10:07 Dose: 10 ml Lactic Acid (Lac-Hydrin 12% Lotion (225 G)) 1 applic TOP BID [facility] Last Admin: 06/25/18 16:56 Dose: 1 applic Lidocaine (Lidoderm) 2 ea TD DAILY [facility] Last Admin: 06/25/18 08:51 Dose: 2 ea Loratadine (Claritin) 10 mg PO DAILY [facility] Last Admin: 06/25/18 08:51 Dose: 10 mg Meclizine HCl (Antivert) 25 mg PO Q12 [facility] Last Admin: 06/25/18 21:53 Dose: 25 mg Metoprolol Tartrate (Lopressor) 25 mg PO Q12 [facility] Last Admin: 06/20/18 09:06 Dose: 25 mg Nystatin (Nystop Topical Powder) 1 applic TOP TID [facility] Last Admin: 06/25/18 16:57 Dose: 1 applic Ondansetron HCl (Zofran Inj) 4 mg IVP Q6 PRN PRN Reason: Nausea/Vomiting Last Admin: 06/25/18 13:55 Dose: 4 mg Oxycodone HCl (Oxycontin Extended Release Tab) 10 mg PO Q12 [facility] Stop: 06/26/18 21:01 Last Admin: 06/25/18 21:53 Dose: 10 mg Pantoprazole Sodium (Protonix Ec Tab) 20 mg PO DAILY [facility] Last Admin: 06/25/18 08:53 Dose: 20 mg - Labs Labs: 06/20/18 13:20 06/25/18 08:39 - Head Exam Head Exam: NORMAL INSPECTION - Eye Exam Eye Exam: Normal appearance - ENT Exam ENT Exam: Mucous Membranes Moist - Respiratory Exam Respiratory Exam: Clear to Ausculation Bilateral - Cardiovascular Exam Cardiovascular Exam: REGULAR RHYTHM Assessment and Plan (1) Urinary tract infection Status: Acute (2) Physical debility Status: Acute (3) Pneumonia Status: Acute (4) Status post CVA Status: Acute - Assessment and Plan (Free Text) Plan: Cont meds Cont tx Cont Iv antibiotics
--- NOTE | 2018-06-26 01:04 | CP.PCM.PN ---
Subjective - Date & Time of Evaluation Date of Evaluation: 06/22/18 Time of Evaluation: 10:30 - Subjective Subjective: Patient is stable Has no chest pain or SOB Objective - Vital Signs/Intake and Output Vital Signs (last 24 hours): Temp Pulse Resp BP Pulse Ox 99.7 F H 104 H 20 111/78 92 L 06/25/18 19:55 06/25/18 19:55 06/25/18 19:55 06/25/18 19:55 06/25/18 19:55 Intake and Output: 06/25/18 06/26/18 18:59 06:59 Output Total 800 Balance -800 - Medications Medications: Current Medications Acetaminophen/Codeine Phosphate (Tylenol/Codeine 300 Mg/30 Mg) 1 tab PO Q4 PRN PRN Reason: Pain, moderate (4-7) Last Admin: 06/25/18 05:58 Dose: 1 tab Albuterol/Ipratropium (Duoneb 3 Mg/0.5 Mg (3 Ml) Ud) 3 ml IH TID PRN PRN Reason: Shortness of Breath Benzocaine/Menthol (Cepacol Sore Throat) 1 chelly PO Q2 PRN PRN Reason: Sore Throat Last Admin: 06/25/18 14:50 Dose: 1 chelly Camphor/Menthol (Bengay) 1 applic TOP Q6 PRN PRN Reason: Pain, Mild (1-3) Last Admin: 06/23/18 04:09 Dose: 1 applic Dimethicone (Proshield Plus Skin Protectant) 1 applic TOP Q8 [facility] Last Admin: 06/26/18 00:21 Dose: 1 applic Docusate Sodium (Colace) 100 mg PO BID PRN PRN Reason: Constipation Last Admin: 06/16/18 08:41 Dose: 100 mg Enoxaparin Sodium (Lovenox) 40 mg SC DAILY [facility]; Protocol Last Admin: 06/25/18 13:56 Dose: 40 mg Gabapentin (Neurontin) 100 mg PO Q8 [facility] Last Admin: 06/26/18 00:22 Dose: 100 mg Guaifenesin/Dextromethorphan (Robitussin Dm) 10 ml PO Q4 PRN PRN Reason: Cough Last Admin: 06/21/18 10:07 Dose: 10 ml Lactic Acid (Lac-Hydrin 12% Lotion (225 G)) 1 applic TOP BID [facility] Last Admin: 06/25/18 16:56 Dose: 1 applic Lidocaine (Lidoderm) 2 ea TD DAILY [facility] Last Admin: 06/25/18 08:51 Dose: 2 ea Loratadine (Claritin) 10 mg PO DAILY [facility] Last Admin: 06/25/18 08:51 Dose: 10 mg Meclizine HCl (Antivert) 25 mg PO Q12 [facility] Last Admin: 06/25/18 21:53 Dose: 25 mg Metoprolol Tartrate (Lopressor) 25 mg PO Q12 [facility] Last Admin: 06/20/18 09:06 Dose: 25 mg Nystatin (Nystop Topical Powder) 1 applic TOP TID [facility] Last Admin: 06/25/18 16:57 Dose: 1 applic Ondansetron HCl (Zofran Inj) 4 mg IVP Q6 PRN PRN Reason: Nausea/Vomiting Last Admin: 06/25/18 13:55 Dose: 4 mg Oxycodone HCl (Oxycontin Extended Release Tab) 10 mg PO Q12 [facility] Stop: 06/26/18 21:01 Last Admin: 06/25/18 21:53 Dose: 10 mg Pantoprazole Sodium (Protonix Ec Tab) 20 mg PO DAILY [facility] Last Admin: 06/25/18 08:53 Dose: 20 mg - Labs Labs: 06/20/18 13:20 06/25/18 08:39 - Head Exam Head Exam: NORMAL INSPECTION - Eye Exam Eye Exam: Normal appearance - Respiratory Exam Respiratory Exam: Clear to Ausculation Bilateral - Cardiovascular Exam Cardiovascular Exam: REGULAR RHYTHM - GI/Abdominal Exam GI & Abdominal Exam: Normal Bowel Sounds Assessment and Plan (1) Urinary tract infection Status: Acute (2) Physical debility Status: Acute (3) Pneumonia Status: Acute (4) Status post CVA Status: Acute - Assessment and Plan (Free Text) Plan: Cont meds Cont tx Cont iv antibiotics/ PT
--- NOTE | 2018-06-26 01:06 | CP.PCM.PN ---
Subjective - Date & Time of Evaluation Date of Evaluation: 06/23/18 Time of Evaluation: 11:00 - Subjective Subjective: Patient is doing well Desires to go home Has no fever still on iv antibiotics. Objective - Vital Signs/Intake and Output Vital Signs (last 24 hours): Temp Pulse Resp BP Pulse Ox 99.7 F H 104 H 20 111/78 92 L 06/25/18 19:55 06/25/18 19:55 06/25/18 19:55 06/25/18 19:55 06/25/18 19:55 Intake and Output: 06/25/18 06/26/18 18:59 06:59 Output Total 800 Balance -800 - Medications Medications: Current Medications Acetaminophen/Codeine Phosphate (Tylenol/Codeine 300 Mg/30 Mg) 1 tab PO Q4 PRN PRN Reason: Pain, moderate (4-7) Last Admin: 06/25/18 05:58 Dose: 1 tab Albuterol/Ipratropium (Duoneb 3 Mg/0.5 Mg (3 Ml) Ud) 3 ml IH TID PRN PRN Reason: Shortness of Breath Benzocaine/Menthol (Cepacol Sore Throat) 1 chelly PO Q2 PRN PRN Reason: Sore Throat Last Admin: 06/25/18 14:50 Dose: 1 chelly Camphor/Menthol (Bengay) 1 applic TOP Q6 PRN PRN Reason: Pain, Mild (1-3) Last Admin: 06/23/18 04:09 Dose: 1 applic Dimethicone (Proshield Plus Skin Protectant) 1 applic TOP Q8 [facility] Last Admin: 06/26/18 00:21 Dose: 1 applic Docusate Sodium (Colace) 100 mg PO BID PRN PRN Reason: Constipation Last Admin: 06/16/18 08:41 Dose: 100 mg Enoxaparin Sodium (Lovenox) 40 mg SC DAILY [facility]; Protocol Last Admin: 06/25/18 13:56 Dose: 40 mg Gabapentin (Neurontin) 100 mg PO Q8 [facility] Last Admin: 06/26/18 00:22 Dose: 100 mg Guaifenesin/Dextromethorphan (Robitussin Dm) 10 ml PO Q4 PRN PRN Reason: Cough Last Admin: 06/21/18 10:07 Dose: 10 ml Lactic Acid (Lac-Hydrin 12% Lotion (225 G)) 1 applic TOP BID [facility] Last Admin: 06/25/18 16:56 Dose: 1 applic Lidocaine (Lidoderm) 2 ea TD DAILY [facility] Last Admin: 06/25/18 08:51 Dose: 2 ea Loratadine (Claritin) 10 mg PO DAILY [facility] Last Admin: 06/25/18 08:51 Dose: 10 mg Meclizine HCl (Antivert) 25 mg PO Q12 [facility] Last Admin: 06/25/18 21:53 Dose: 25 mg Metoprolol Tartrate (Lopressor) 25 mg PO Q12 [facility] Last Admin: 06/20/18 09:06 Dose: 25 mg Nystatin (Nystop Topical Powder) 1 applic TOP TID [facility] Last Admin: 06/25/18 16:57 Dose: 1 applic Ondansetron HCl (Zofran Inj) 4 mg IVP Q6 PRN PRN Reason: Nausea/Vomiting Last Admin: 06/25/18 13:55 Dose: 4 mg Oxycodone HCl (Oxycontin Extended Release Tab) 10 mg PO Q12 [facility] Stop: 06/26/18 21:01 Last Admin: 06/25/18 21:53 Dose: 10 mg Pantoprazole Sodium (Protonix Ec Tab) 20 mg PO DAILY [facility] Last Admin: 06/25/18 08:53 Dose: 20 mg - Labs Labs: 06/20/18 13:20 06/25/18 08:39 - Head Exam Head Exam: NORMAL INSPECTION - Eye Exam Eye Exam: Normal appearance - ENT Exam ENT Exam: Mucous Membranes Moist - Respiratory Exam Respiratory Exam: Clear to Ausculation Bilateral - Cardiovascular Exam Cardiovascular Exam: REGULAR RHYTHM - GI/Abdominal Exam GI & Abdominal Exam: Normal Bowel Sounds Assessment and Plan (1) Urinary tract infection Status: Acute (2) Physical debility Status: Acute (3) Pneumonia Status: Acute (4) Status post CVA Status: Acute - Assessment and Plan (Free Text) Plan: Cont tx Cont PT iv antibiotics
--- NOTE | 2018-06-26 01:09 | CP.PCM.PN ---
Subjective - Date & Time of Evaluation Date of Evaluation: 06/24/18 Time of Evaluation: 13:00 - Subjective Subjective: Patient is stable Still on iv antibiotics Has no fever. Objective - Vital Signs/Intake and Output Vital Signs (last 24 hours): Temp Pulse Resp BP Pulse Ox 99.7 F H 104 H 20 111/78 92 L 06/25/18 19:55 06/25/18 19:55 06/25/18 19:55 06/25/18 19:55 06/25/18 19:55 Intake and Output: 06/25/18 06/26/18 18:59 06:59 Output Total 800 Balance -800 - Medications Medications: Current Medications Acetaminophen/Codeine Phosphate (Tylenol/Codeine 300 Mg/30 Mg) 1 tab PO Q4 PRN PRN Reason: Pain, moderate (4-7) Last Admin: 06/25/18 05:58 Dose: 1 tab Albuterol/Ipratropium (Duoneb 3 Mg/0.5 Mg (3 Ml) Ud) 3 ml IH TID PRN PRN Reason: Shortness of Breath Benzocaine/Menthol (Cepacol Sore Throat) 1 chelly PO Q2 PRN PRN Reason: Sore Throat Last Admin: 06/25/18 14:50 Dose: 1 chelly Camphor/Menthol (Bengay) 1 applic TOP Q6 PRN PRN Reason: Pain, Mild (1-3) Last Admin: 06/23/18 04:09 Dose: 1 applic Dimethicone (Proshield Plus Skin Protectant) 1 applic TOP Q8 [facility] Last Admin: 06/26/18 00:21 Dose: 1 applic Docusate Sodium (Colace) 100 mg PO BID PRN PRN Reason: Constipation Last Admin: 06/16/18 08:41 Dose: 100 mg Enoxaparin Sodium (Lovenox) 40 mg SC DAILY [facility]; Protocol Last Admin: 06/25/18 13:56 Dose: 40 mg Gabapentin (Neurontin) 100 mg PO Q8 [facility] Last Admin: 06/26/18 00:22 Dose: 100 mg Guaifenesin/Dextromethorphan (Robitussin Dm) 10 ml PO Q4 PRN PRN Reason: Cough Last Admin: 06/21/18 10:07 Dose: 10 ml Lactic Acid (Lac-Hydrin 12% Lotion (225 G)) 1 applic TOP BID [facility] Last Admin: 06/25/18 16:56 Dose: 1 applic Lidocaine (Lidoderm) 2 ea TD DAILY [facility] Last Admin: 06/25/18 08:51 Dose: 2 ea Loratadine (Claritin) 10 mg PO DAILY [facility] Last Admin: 06/25/18 08:51 Dose: 10 mg Meclizine HCl (Antivert) 25 mg PO Q12 [facility] Last Admin: 06/25/18 21:53 Dose: 25 mg Metoprolol Tartrate (Lopressor) 25 mg PO Q12 [facility] Last Admin: 06/20/18 09:06 Dose: 25 mg Nystatin (Nystop Topical Powder) 1 applic TOP TID [facility] Last Admin: 06/25/18 16:57 Dose: 1 applic Ondansetron HCl (Zofran Inj) 4 mg IVP Q6 PRN PRN Reason: Nausea/Vomiting Last Admin: 06/25/18 13:55 Dose: 4 mg Oxycodone HCl (Oxycontin Extended Release Tab) 10 mg PO Q12 [facility] Stop: 06/26/18 21:01 Last Admin: 06/25/18 21:53 Dose: 10 mg Pantoprazole Sodium (Protonix Ec Tab) 20 mg PO DAILY [facility] Last Admin: 06/25/18 08:53 Dose: 20 mg - Labs Labs: 06/20/18 13:20 06/25/18 08:39 - Head Exam Head Exam: NORMAL INSPECTION - Eye Exam Eye Exam: Normal appearance - ENT Exam ENT Exam: Mucous Membranes Moist - Respiratory Exam Respiratory Exam: Clear to Ausculation Bilateral - Cardiovascular Exam Cardiovascular Exam: REGULAR RHYTHM - GI/Abdominal Exam GI & Abdominal Exam: Normal Bowel Sounds Assessment and Plan (1) Urinary tract infection Status: Acute (2) Physical debility Status: Acute (3) Pneumonia Status: Acute (4) Status post CVA Status: Acute - Assessment and Plan (Free Text) Plan: Cont meds Cont tx Cont iv antibiotics and phys therapy
--- NOTE | 2018-06-26 01:11 | CP.PCM.PN ---
Subjective - Date & Time of Evaluation Date of Evaluation: 06/25/18 Time of Evaluation: 14:00 - Subjective Subjective: Patient remains stable Has no fever Complains of dry pruritic skin. Objective - Vital Signs/Intake and Output Vital Signs (last 24 hours): Temp Pulse Resp BP Pulse Ox 99.7 F H 104 H 20 111/78 92 L 06/25/18 19:55 06/25/18 19:55 06/25/18 19:55 06/25/18 19:55 06/25/18 19:55 Intake and Output: 06/25/18 06/26/18 18:59 06:59 Output Total 800 Balance -800 - Medications Medications: Current Medications Acetaminophen/Codeine Phosphate (Tylenol/Codeine 300 Mg/30 Mg) 1 tab PO Q4 PRN PRN Reason: Pain, moderate (4-7) Last Admin: 06/25/18 05:58 Dose: 1 tab Albuterol/Ipratropium (Duoneb 3 Mg/0.5 Mg (3 Ml) Ud) 3 ml IH TID PRN PRN Reason: Shortness of Breath Benzocaine/Menthol (Cepacol Sore Throat) 1 chelly PO Q2 PRN PRN Reason: Sore Throat Last Admin: 06/25/18 14:50 Dose: 1 chelly Camphor/Menthol (Bengay) 1 applic TOP Q6 PRN PRN Reason: Pain, Mild (1-3) Last Admin: 06/23/18 04:09 Dose: 1 applic Dimethicone (Proshield Plus Skin Protectant) 1 applic TOP Q8 [facility] Last Admin: 06/26/18 00:21 Dose: 1 applic Docusate Sodium (Colace) 100 mg PO BID PRN PRN Reason: Constipation Last Admin: 06/16/18 08:41 Dose: 100 mg Enoxaparin Sodium (Lovenox) 40 mg SC DAILY [facility]; Protocol Last Admin: 06/25/18 13:56 Dose: 40 mg Gabapentin (Neurontin) 100 mg PO Q8 [facility] Last Admin: 06/26/18 00:22 Dose: 100 mg Guaifenesin/Dextromethorphan (Robitussin Dm) 10 ml PO Q4 PRN PRN Reason: Cough Last Admin: 06/21/18 10:07 Dose: 10 ml Lactic Acid (Lac-Hydrin 12% Lotion (225 G)) 1 applic TOP BID [facility] Last Admin: 06/25/18 16:56 Dose: 1 applic Lidocaine (Lidoderm) 2 ea TD DAILY [facility] Last Admin: 06/25/18 08:51 Dose: 2 ea Loratadine (Claritin) 10 mg PO DAILY [facility] Last Admin: 06/25/18 08:51 Dose: 10 mg Meclizine HCl (Antivert) 25 mg PO Q12 [facility] Last Admin: 06/25/18 21:53 Dose: 25 mg Metoprolol Tartrate (Lopressor) 25 mg PO Q12 [facility] Last Admin: 06/20/18 09:06 Dose: 25 mg Nystatin (Nystop Topical Powder) 1 applic TOP TID [facility] Last Admin: 06/25/18 16:57 Dose: 1 applic Ondansetron HCl (Zofran Inj) 4 mg IVP Q6 PRN PRN Reason: Nausea/Vomiting Last Admin: 06/25/18 13:55 Dose: 4 mg Oxycodone HCl (Oxycontin Extended Release Tab) 10 mg PO Q12 [facility] Stop: 06/26/18 21:01 Last Admin: 06/25/18 21:53 Dose: 10 mg Pantoprazole Sodium (Protonix Ec Tab) 20 mg PO DAILY [facility] Last Admin: 06/25/18 08:53 Dose: 20 mg - Labs Labs: 06/20/18 13:20 06/25/18 08:39 - Head Exam Head Exam: NORMAL INSPECTION - Eye Exam Eye Exam: Normal appearance - Respiratory Exam Respiratory Exam: Clear to Ausculation Bilateral - Cardiovascular Exam Cardiovascular Exam: REGULAR RHYTHM - GI/Abdominal Exam GI & Abdominal Exam: Normal Bowel Sounds Assessment and Plan (1) Urinary tract infection Status: Acute (2) Physical debility Status: Acute (3) Pneumonia Status: Acute (4) Status post CVA Status: Acute - Assessment and Plan (Free Text) Plan: Cont meds Cont tx Cont iv antibiotics
[2018-06-26] MEDS: Enoxaparin 40 mg Syringe SC SCH (08:23)
[2018-06-26] MEDS: Lidocaine 5% Patch TD SCH (08:23)
[2018-06-26] MEDS: Pantoprazole 20 mg EC Tab PO SCH (08:24)
[2018-06-26] MEDS: oxyCODONE 10 mg ER Tab (oxyCONTIN) PO SCH ×2 (08:25→22:23)
[2018-06-26] MEDS: Benzocaine/Menthol (Cepacol) Lozenge PO PRN ×3 (11:03→22:24)
[2018-06-26] MEDS: Acetaminophen-Codeine 300/30 mg Tab PO PRN (12:35)
[2018-06-26] MEDS ORDERED: Sodium Chloride 0.9% 50 ML IV ONE (13:45)
[2018-06-26] MEDS ORDERED: Iohexol 300 100 ML IJ ONE (13:45)
--- NOTE | 2018-06-26 15:39 | CT ---
Date of service: 06/26/2018 PROCEDURE: CT NECK WITH CONTRAST HISTORY: NECK PAIN COMPARISON: Comparison is made to the previous study dated 03/27/2018 TECHNIQUE: CT of the neck with intravenous contrast. Coronal and sagittal reformats generated. Intravenous contrast dose: 100 mL of Omnipaque 300 intravenously. Radiation dose: Total exam DLP = 249.33 mGy-cm. This CT exam was performed using one or more of the following dose reduction techniques: Automated exposure control, adjustment of the mA and/or kV according to patient size, and/or use of iterative reconstruction technique. FINDINGS: NASOPHARYNX: There is mild asymmetry in the nasopharynx soft tissue slightly prominent on the right. SUPRAHYOID NECK: Unremarkable oropharynx, oral cavity, parapharyngeal space and retropharyngeal space. INFRAHYOID NECK: There is focal asymmetry in the true vocal cord also noted without evidence of discrete mass. Otherwise the hypopharynx, and supraglottic space. Vocal cords intact. MASS: None. GLANDS: Parotid and submandibular glands unremarkable. The thyroid gland is heterogeneous. There are small bilateral thyroid nodule again noted. LYMPH NODES: Normal. No lymphadenopathy. CERVICAL SPINE: No fracture or focal lesion. VASCULAR STRUCTURES: Unremarkable. OTHER FINDINGS: There is focal moderate narrowing of the airway at the level of thyroid gland likely at the with the Francois measures 5.6 millimeter in the transverse diameter. There is complete opacification of the right maxillary sinus and mild to moderate mucosal thickening of the left maxillary sinus noted. IMPRESSION: Focal moderate narrowing of the airway at the level of the thyroid gland with the lumen measures 5.6 millimeter in the transverse diameter. Asymmetry in the true vocal cord and nasopharynx to tissue without evidence of discrete mass.
--- NOTE | 2018-06-26 18:44 | CP.PCM.PN ---
Subjective - Date & Time of Evaluation Date of Evaluation: 06/26/18 Time of Evaluation: 18:43 - Subjective Subjective: Patient seen in the room looks comfortable afebrile present notes some dizziness Had CT of the cervical spine done today results pending denies significant pain at this time. Objective - Vital Signs/Intake and Output Vital Signs (last 24 hours): Temp Pulse Resp BP Pulse Ox 98.7 F 84 20 117/69 96 06/26/18 15:46 06/26/18 15:46 06/26/18 15:46 06/26/18 15:46 06/26/18 15:46 Intake and Output: 06/26/18 06/26/18 06:59 18:59 Intake Total 400 Output Total 500 Balance -100 - Medications Medications: Current Medications Acetaminophen/Codeine Phosphate (Tylenol/Codeine 300 Mg/30 Mg) 1 tab PO Q4 PRN PRN Reason: Pain, moderate (4-7) Last Admin: 06/26/18 12:35 Dose: 1 tab Albuterol/Ipratropium (Duoneb 3 Mg/0.5 Mg (3 Ml) Ud) 3 ml IH TID PRN PRN Reason: Shortness of Breath Benzocaine/Menthol (Cepacol Sore Throat) 1 chelly PO Q2 PRN PRN Reason: Sore Throat Last Admin: 06/26/18 16:56 Dose: 1 chelly Camphor/Menthol (Bengay) 1 applic TOP Q6 PRN PRN Reason: Pain, Mild (1-3) Last Admin: 06/23/18 04:09 Dose: 1 applic Dimethicone (Proshield Plus Skin Protectant) 1 applic TOP Q8 [facility]TE Last Admin: 06/26/18 16:55 Dose: 1 applic Docusate Sodium (Colace) 100 mg PO BID PRN PRN Reason: Constipation Last Admin: 06/16/18 08:41 Dose: 100 mg Enoxaparin Sodium (Lovenox) 40 mg SC DAILY [facility]; Protocol Last Admin: 06/26/18 08:23 Dose: 40 mg Gabapentin (Neurontin) 100 mg PO Q8 ODETTE Last Admin: 06/26/18 16:56 Dose: 100 mg Guaifenesin/Dextromethorphan (Robitussin Dm) 10 ml PO Q4 PRN PRN Reason: Cough Last Admin: 06/21/18 10:07 Dose: 10 ml Lactic Acid (Lac-Hydrin 12% Lotion (225 G)) 1 applic TOP BID [facility] Last Admin: 06/26/18 16:55 Dose: 1 applic Lidocaine (Lidoderm) 2 ea TD DAILY [facility] Last Admin: 06/26/18 08:23 Dose: 2 ea Loratadine (Claritin) 10 mg PO DAILY [facility] Last Admin: 06/26/18 08:24 Dose: 10 mg Meclizine HCl (Antivert) 25 mg PO Q8 [facility] Last Admin: 06/26/18 16:55 Dose: 25 mg Metoprolol Tartrate (Lopressor) 25 mg PO Q12 [facility] Last Admin: 06/20/18 09:06 Dose: 25 mg Nystatin (Nystop Topical Powder) 1 applic TOP TID [facility] Last Admin: 06/26/18 16:55 Dose: 1 applic Ondansetron HCl (Zofran Inj) 4 mg IVP Q6 PRN PRN Reason: Nausea/Vomiting Last Admin: 06/25/18 13:55 Dose: 4 mg Oxycodone HCl (Oxycontin Extended Release Tab) 10 mg PO Q12 [facility] Stop: 06/26/18 21:01 Last Admin: 06/26/18 08:25 Dose: 10 mg Pantoprazole Sodium (Protonix Ec Tab) 20 mg PO DAILY [facility] Last Admin: 06/26/18 08:24 Dose: 20 mg - Labs Labs: 06/20/18 13:20 06/25/18 08:39
[2018-06-27] MEDS: Proshield Plus GEL TOP SCH ×3 (01:17→16:42)
[2018-06-27] MEDS: Acetaminophen-Codeine 300/30 mg Tab PO PRN ×2 (01:18→22:27)
[2018-06-27] MEDS: Lidocaine 5% Patch TD SCH (08:33)
[2018-06-27] MEDS: Enoxaparin 40 mg Syringe SC SCH (08:33)
[2018-06-27] MEDS: Pantoprazole 20 mg EC Tab PO SCH (08:34)
[2018-06-28] MEDS: Proshield Plus GEL TOP SCH ×3 (02:13→17:37)
--- NOTE | 2018-06-28 04:04 | OP ---
PROCEDURE DATE: 06/27/2018 PREOPERATIVE DIAGNOSES: Dysphagia, hoarseness. POSTOPERATIVE DIAGNOSES: Dysphagia, hoarseness. PROCEDURE: Flexible laryngoscopy. SIGNIFICANT FINDINGS: Vocal cords all fully come together. There are mobile. No airway obstruction. No erythema, masses, or lesions noted. DESCRIPTION OF PROCEDURE: The patient was placed in a seated position. The nose was decongested using Afrin. A flexible laryngoscope was inserted into the nasal cavity and passed through nasopharynx, oropharynx and hypopharynx. The pharyngeal wall, the base of tongue, vallecula, epiglottis, aryepiglottic folds, false cords, true cords, and pyriform sinuses were brought into view. Vocal cords were noted to be mobile bilaterally. There are no masses or lesions. Vocal cords don't come together fully. No erythema or edema noted. The scope was removed. The patient tolerated the procedure well. Dillon Vick MD MTDD
[2018-06-28] MEDS: Acetaminophen-Codeine 300/30 mg Tab PO PRN ×3 (05:37→20:29)
--- NOTE | 2018-06-28 08:51 | CP.PCM.PN ---
Subjective - Date & Time of Evaluation Date of Evaluation: 06/27/18 Time of Evaluation: 11:30 - Subjective Subjective: \Complains of severe pruritus on the whole back area. Noted slight erythema Not responding to current meds Otherwise she is stable Objective - Vital Signs/Intake and Output Vital Signs (last 24 hours): Temp Pulse Resp BP Pulse Ox 98.8 F 94 H 20 113/70 96 06/28/18 07:52 06/28/18 07:52 06/28/18 07:52 06/28/18 07:52 06/28/18 07:52 - Medications Medications: Current Medications Acetaminophen/Codeine Phosphate (Tylenol/Codeine 300 Mg/30 Mg) 1 tab PO Q4 PRN PRN Reason: Pain, moderate (4-7) Last Admin: 06/28/18 05:37 Dose: 1 tab Albuterol/Ipratropium (Duoneb 3 Mg/0.5 Mg (3 Ml) Ud) 3 ml IH TID PRN PRN Reason: Shortness of Breath Benzocaine/Menthol (Cepacol Sore Throat) 1 chelly PO Q2 PRN PRN Reason: Sore Throat Last Admin: 06/26/18 22:24 Dose: 1 chelly Camphor/Menthol (Bengay) 1 applic TOP Q6 PRN PRN Reason: Pain, Mild (1-3) Last Admin: 06/23/18 04:09 Dose: 1 applic Dimethicone (Proshield Plus Skin Protectant) 1 applic TOP Q8 ODETTE Last Admin: 06/28/18 02:13 Dose: Not Given Docusate Sodium (Colace) 100 mg PO BID PRN PRN Reason: Constipation Last Admin: 06/27/18 08:34 Dose: 100 mg Gabapentin (Neurontin) 100 mg PO Q8 [facility] Last Admin: 06/28/18 02:12 Dose: Not Given Guaifenesin/Dextromethorphan (Robitussin Dm) 10 ml PO Q4 PRN PRN Reason: Cough Last Admin: 06/21/18 10:07 Dose: 10 ml Hydrocortisone (Hydrocortisone Lotion 2.5%) 1 applic TP TID [facility] Last Admin: 06/27/18 16:43 Dose: 1 applic Lactic Acid (Lac-Hydrin 12% Lotion (225 G)) 1 applic TOP BID [facility] Last Admin: 06/27/18 16:43 Dose: 1 applic Lidocaine (Lidoderm) 2 ea TD DAILY [facility] Last Admin: 06/27/18 08:33 Dose: 2 ea Meclizine HCl (Antivert) 25 mg PO Q8 [facility] Last Admin: 06/28/18 02:12 Dose: Not Given Metoprolol Tartrate (Lopressor) 25 mg PO Q12 [facility] Last Admin: 06/20/18 09:06 Dose: 25 mg Nystatin (Nystop Topical Powder) 1 applic TOP TID [facility] Last Admin: 06/27/18 16:43 Dose: 1 applic Ondansetron HCl (Zofran Inj) 4 mg IVP Q6 PRN PRN Reason: Nausea/Vomiting Last Admin: 06/25/18 13:55 Dose: 4 mg Pantoprazole Sodium (Protonix Ec Tab) 20 mg PO DAILY [facility] Last Admin: 06/27/18 08:34 Dose: 20 mg - Labs Labs: 06/20/18 13:20 06/25/18 08:39 - Head Exam Head Exam: NORMAL INSPECTION - Eye Exam Eye Exam: Normal appearance - ENT Exam ENT Exam: Mucous Membranes Moist - Respiratory Exam Respiratory Exam: Clear to Ausculation Bilateral - Cardiovascular Exam Cardiovascular Exam: REGULAR RHYTHM - GI/Abdominal Exam GI & Abdominal Exam: Normal Bowel Sounds Assessment and Plan (1) Urinary tract infection Status: Acute (2) Physical debility Status: Acute (3) Pneumonia Status: Acute (4) Status post CVA Status: Acute - Assessment and Plan (Free Text) Plan: Cont meds Cont tx Cont PT hydrocortisone lotion apply bid
[2018-06-28] MEDS: Lidocaine 5% Patch TD SCH (09:38)
[2018-06-28] MEDS: Pantoprazole 20 mg EC Tab PO SCH (09:39)
[2018-06-28] MEDS: Menthol/Methyl Salicylate Oinment TOP PRN (09:40)
--- NOTE | 2018-06-28 17:50 | CP.PCM.PN ---
Subjective - Date & Time of Evaluation Date of Evaluation: 06/28/18 Time of Evaluation: 17:49 - Subjective Subjective: Patient seen in the room minimal dizziness denies HOSKINS or chest pain set for d/c to [facility] tuesday continue current care Objective - Vital Signs/Intake and Output Vital Signs (last 24 hours): Temp Pulse Resp BP Pulse Ox 98.4 F 97 H 20 105/73 95 06/28/18 16:33 06/28/18 16:33 06/28/18 16:33 06/28/18 16:33 06/28/18 16:33 - Medications Medications: Current Medications Acetaminophen/Codeine Phosphate (Tylenol/Codeine 300 Mg/30 Mg) 1 tab PO Q4 PRN PRN Reason: Pain, moderate (4-7) Last Admin: 06/28/18 09:50 Dose: 1 tab Albuterol/Ipratropium (Duoneb 3 Mg/0.5 Mg (3 Ml) Ud) 3 ml IH TID PRN PRN Reason: Shortness of Breath Benzocaine/Menthol (Cepacol Sore Throat) 1 chelly PO Q2 PRN PRN Reason: Sore Throat Last Admin: 06/26/18 22:24 Dose: 1 chelly Camphor/Menthol (Bengay) 1 applic TOP Q6 PRN PRN Reason: Pain, Mild (1-3) Last Admin: 06/28/18 09:40 Dose: 1 applic Dimethicone (Proshield Plus Skin Protectant) 1 applic TOP Q8 [facility] Last Admin: 06/28/18 17:37 Dose: 1 applic Docusate Sodium (Colace) 100 mg PO BID PRN PRN Reason: Constipation Last Admin: 06/27/18 08:34 Dose: 100 mg Gabapentin (Neurontin) 100 mg PO Q8 [facility] Last Admin: 06/28/18 17:35 Dose: 100 mg Guaifenesin/Dextromethorphan (Robitussin Dm) 10 ml PO Q4 PRN PRN Reason: Cough Last Admin: 06/21/18 10:07 Dose: 10 ml Hydrocortisone (Hydrocortisone Lotion 2.5%) 1 applic TP TID [facility] Last Admin: 06/28/18 17:35 Dose: 1 applic Lactic Acid (Lac-Hydrin 12% Lotion (225 G)) 1 applic TOP BID [facility] Last Admin: 06/28/18 17:41 Dose: 1 applic Lidocaine (Lidoderm) 2 ea TD DAILY [facility] Last Admin: 06/28/18 09:38 Dose: 2 ea Meclizine HCl (Antivert) 25 mg PO Q8 [facility] Last Admin: 06/28/18 17:35 Dose: 25 mg Metoprolol Tartrate (Lopressor) 25 mg PO Q12 [facility] Last Admin: 06/20/18 09:06 Dose: 25 mg Nystatin (Nystop Topical Powder) 1 applic TOP TID [facility] Last Admin: 06/28/18 17:36 Dose: Not Given Ondansetron HCl (Zofran Inj) 4 mg IVP Q6 PRN PRN Reason: Nausea/Vomiting Last Admin: 06/25/18 13:55 Dose: 4 mg Pantoprazole Sodium (Protonix Ec Tab) 20 mg PO DAILY [facility] Last Admin: 06/28/18 09:39 Dose: 20 mg - Labs Labs: 06/20/18 13:20 06/25/18 08:39
[2018-06-29] MEDS: Proshield Plus GEL TOP SCH ×3 (01:23→16:45)
--- NOTE | 2018-06-29 02:37 | CP.PCM.PN ---
Subjective - Date & Time of Evaluation Date of Evaluation: 06/28/18 Time of Evaluation: 09:00 - Subjective Subjective: Pt seen and assessed in room. Currently sitting in bedside chair. C/O episodic vertigo, and hoarseness in her voice. Objective - Vital Signs/Intake and Output Vital Signs (last 24 hours): Temp Pulse Resp BP Pulse Ox 99.2 F 114 H 20 99/69 L 94 L 06/28/18 21:43 06/28/18 21:43 06/28/18 21:43 06/28/18 21:43 06/28/18 21:43 - Medications Medications: Current Medications Acetaminophen/Codeine Phosphate (Tylenol/Codeine 300 Mg/30 Mg) 1 tab PO Q4 PRN PRN Reason: Pain, moderate (4-7) Last Admin: 06/28/18 20:29 Dose: 1 tab Albuterol/Ipratropium (Duoneb 3 Mg/0.5 Mg (3 Ml) Ud) 3 ml IH TID PRN PRN Reason: Shortness of Breath Benzocaine/Menthol (Cepacol Sore Throat) 1 chelly PO Q2 PRN PRN Reason: Sore Throat Last Admin: 06/26/18 22:24 Dose: 1 chelly Camphor/Menthol (Bengay) 1 applic TOP Q6 PRN PRN Reason: Pain, Mild (1-3) Last Admin: 06/28/18 09:40 Dose: 1 applic Dimethicone (Proshield Plus Skin Protectant) 1 applic TOP Q8 [facility] Last Admin: 06/29/18 01:23 Dose: 1 applic Docusate Sodium (Colace) 100 mg PO BID PRN PRN Reason: Constipation Last Admin: 06/27/18 08:34 Dose: 100 mg Gabapentin (Neurontin) 100 mg PO Q8 [facility] Last Admin: 06/29/18 01:21 Dose: 100 mg Guaifenesin/Dextromethorphan (Robitussin Dm) 10 ml PO Q4 PRN PRN Reason: Cough Last Admin: 06/21/18 10:07 Dose: 10 ml Hydrocortisone (Hydrocortisone Lotion 2.5%) 1 applic TP TID [facility] Last Admin: 06/28/18 17:35 Dose: 1 applic Lactic Acid (Lac-Hydrin 12% Lotion (225 G)) 1 applic TOP BID [facility] Last Admin: 06/28/18 17:41 Dose: 1 applic Lidocaine (Lidoderm) 2 ea TD DAILY [facility] Last Admin: 06/28/18 09:38 Dose: 2 ea Meclizine HCl (Antivert) 25 mg PO Q8 [facility] Last Admin: 06/29/18 01:21 Dose: 25 mg Metoprolol Tartrate (Lopressor) 25 mg PO Q12 [facility] Last Admin: 06/20/18 09:06 Dose: 25 mg Nystatin (Nystop Topical Powder) 1 applic TOP TID [facility] Last Admin: 06/28/18 17:36 Dose: Not Given Ondansetron HCl (Zofran Inj) 4 mg IVP Q6 PRN PRN Reason: Nausea/Vomiting Last Admin: 06/25/18 13:55 Dose: 4 mg Pantoprazole Sodium (Protonix Ec Tab) 20 mg PO DAILY [facility] Last Admin: 06/28/18 09:39 Dose: 20 mg - Labs Labs: 06/20/18 13:20 06/25/18 08:39 - Constitutional Appears: Well - Head Exam Head Exam: NORMOCEPHALIC - Eye Exam Eye Exam: PERRL - ENT Exam ENT Exam: Mucous Membranes Dry - Neck Exam Neck Exam: Full ROM - Respiratory Exam Respiratory Exam: Decreased Breath Sounds - Cardiovascular Exam Cardiovascular Exam: REGULAR RHYTHM, +S1, +S2 - GI/Abdominal Exam GI & Abdominal Exam: Soft - Extremities Exam Extremities Exam: Normal Inspection - Back Exam Back Exam: tenderness - Neurological Exam Neurological Exam: Alert, Awake, Oriented x3 - Skin Skin Exam: Dry, Pallor, Warm Assessment and Plan - Assessment and Plan (Free Text) Assessment: Assessment/Impression/Major Problems Now: 1.) UTI and PNA -for subacute rehab transfer on tuesday. -episodes of dizziness noted; meclizine ordered. -ENT consult appreciated.
[2018-06-29] MEDS: guaiFENesin DM 200 mg-20 mg/10 ml UD PO PRN ×2 (08:09→21:24)
[2018-06-29] MEDS: Acetaminophen-Codeine 300/30 mg Tab PO PRN ×2 (08:09→21:24)
[2018-06-29] MEDS: Lidocaine 5% Patch TD SCH (08:10)
[2018-06-29] MEDS: Pantoprazole 20 mg EC Tab PO SCH (08:12)
[2018-06-29 17:12] VITALS: O2SAT 94
--- NOTE | 2018-06-29 17:53 | CP.PCM.PN ---
Subjective - Date & Time of Evaluation Date of Evaluation: 06/29/18 Time of Evaluation: 11:00 - Subjective Subjective: patient seen and examined at bedside. Interim events noted occasionally dizzy denies cp/sob/fever/chills. available diagnostic data reviewed Review of Systems All systems: reviewed and no additional remarkable complaints except mentioned above Objective Vital Signs Stable - Constitutional Appears: Non-toxic, No Acute Distress - Head Exam Head Exam: NORMAL INSPECTION - Eye Exam Eye Exam: Normal appearance - Respiratory Exam Respiratory Exam: NORMAL BREATHING PATTERN - Cardiovascular Exam Cardiovascular Exam: +S1, +S2 - GI/Abdominal Exam GI & Abdominal Exam: Soft - Neurological Exam Neurological Exam: Alert, Awake - Psychiatric Exam Psychiatric exam: Normal Affect, Normal Mood - Skin Skin Exam: Normal Color, Warm Assessment and Plan monitor vitals monitor labs Cont meds Cont tx consultants appreciated input d/c meclizine, trial atarax dispo pending rest of plan as ordered
--- NOTE | 2018-06-29 17:54 | CP.PCM.PN ---
Subjective - Date & Time of Evaluation Date of Evaluation: 06/26/18 Time of Evaluation: 11:00 - Subjective Subjective: patient seen and examined at bedside. Interim events noted No complaints offered at this time denies cp/sob/fever/chills. available diagnostic data reviewed Review of Systems All systems: reviewed and no additional remarkable complaints except mentioned above Objective Vital Signs Stable - Constitutional Appears: Non-toxic, No Acute Distress - Head Exam Head Exam: NORMAL INSPECTION - Eye Exam Eye Exam: Normal appearance - Respiratory Exam Respiratory Exam: NORMAL BREATHING PATTERN - Cardiovascular Exam Cardiovascular Exam: +S1, +S2 - GI/Abdominal Exam GI & Abdominal Exam: Soft - Neurological Exam Neurological Exam: Alert, Awake - Psychiatric Exam Psychiatric exam: Normal Affect, Normal Mood - Skin Skin Exam: Normal Color, Warm Assessment and Plan monitor vitals monitor labs Cont meds Cont tx consultants appreciated input rest of plan as ordered
[2018-06-30] MEDS: Benzocaine/Menthol (Cepacol) Lozenge PO PRN ×2 (00:06→09:31)
[2018-06-30] MEDS: Proshield Plus GEL TOP SCH ×2 (00:07→09:25)
[2018-06-30] MEDS ORDERED: Alum-Mag Hydrox-Simethicone Susp (30 mL) PO ONE (00:33)
[2018-06-30] MEDS ORDERED: Influenza Vaccine 60 mcg/0.5 mL SYR (4YR UP) IM ONE (07:49)
[2018-06-30 09:03] VITALS: BP 116/84; PULSE 96; TEMP 98.4
[2018-06-30] MEDS: Menthol/Methyl Salicylate Oinment TOP PRN (09:23)
[2018-06-30] MEDS: Lidocaine 5% Patch TD SCH (09:23)
[2018-06-30] MEDS: Acetaminophen-Codeine 300/30 mg Tab PO PRN (09:25)
[2018-06-30] MEDS: Pantoprazole 20 mg EC Tab PO SCH (09:25)
--- NOTE | 2018-07-03 09:21 | CP.PCM.DIS ---
Provider - Provider Date of Admission: 06/14/18 16:03 Attending physician: Rudi Floyd MD Consults: 06/14/18 16:48 Case Management Referral Routine Comment: Physician Instructions: Reason For Exam: Reason for Referral: Discharge Planning 06/14/18 17:31 Infectious Disease Consult Routine Comment: Consulting Provider: Sammy Lino Consulting Physician: Sammy Lino Reason for Consult: f/u consult; UTI, pneumonia 06/14/18 19:28 Nursing Referral for Wound Care Routine Comment: Physician Instructions: Reason For Exam: new admission; sacral redness; hx pressure ulcers 06/14/18 19:29 Pastoral Care Referral Routine Comment: Physician Instructions: Reason For Exam: wants to be seen by ; patient is moravian 06/15/18 14:31 Physiatry Consult Routine Comment: Consulting Provider: Bob Dillon Consulting Physician: Bob Dillon Reason for Consult: Please eval and treat. 06/20/18 14:48 Neurology Consult Routine Comment: Consulting Provider: Tyrel Blanco Consulting Physician: Tyrel Blanco Reason for Consult: right parital hemmorage vs calcification 06/24/18 17:11 Physician Consult Routine Comment: Consulting Provider: Manuel Scott Consulting Physician: Manuel Scott Reason for Consult: Throat pain Time Spent in preparation of Discharge (in minutes): 30 Diagnosis - Discharge Diagnosis (1) Urinary tract infection Status: Acute (2) Physical debility Status: Acute (3) Pneumonia Status: Acute (4) Status post CVA Status: Acute Hospital Course - Lab Results Lab Results: Most Recent Lab Values WBC 11.6 K/uL (4.8-10.8) H 06/20/18 13:20 RBC 4.06 Mil/uL (3.80-5.20) 06/20/18 13:20 Hgb 12.1 g/dL (12.0-16.0) 06/20/18 13:20 Hct 36.1 % (34.0-47.0) 06/20/18 13:20 MCV 88.9 fl (81.0-99.0) 06/20/18 13:20 MCH 29.7 pg (27.0-31.0) 06/20/18 13:20 MCHC 33.5 g/dL (33.0-37.0) 06/20/18 13:20 RDW 14.7 % (11.5-14.5) H 06/20/18 13:20 Plt Count 360 K/uL (130-400) 06/20/18 13:20 MPV 7.4 fl (7.2-11.7) 06/16/18 06:00 Neut % (Auto) 70.6 % (50.0-75.0) 06/16/18 06:00 Lymph % (Auto) 13.8 % (20.0-40.0) L 06/16/18 06:00 [place] % (Auto) 12.8 % (0.0-10.0) H 06/16/18 06:00 Eos % (Auto) 2.1 % (0.0-4.0) 06/16/18 06:00 Baso % (Auto) 0.7 % (0.0-2.0) 06/16/18 06:00 Neut # (Auto) 6.7 K/uL (1.8-7.0) 06/16/18 06:00 Lymph # (Auto) 1.3 K/uL (1.0-4.3) 06/16/18 06:00 [place]cock # (Auto) 1.2 K/uL (0.0-0.8) H 06/16/18 06:00 Eos # (Auto) 0.2 K/uL (0.0-0.7) 06/16/18 06:00 Baso # (Auto) 0.1 K/uL (0.0-0.2) 06/16/18 06:00 Sodium 135 mmol/l (132-148) 06/25/18 08:39 Potassium 3.6 MMOL/L (3.6-5.0) 06/25/18 08:39 Chloride 97 mmol/L (98-107) L 06/25/18 08:39 Carbon Dioxide 27 mmol/L (22-30) 06/25/18 08:39 Anion Gap 15 (10-20) 06/25/18 08:39 BUN 21 mg/dl (7-17) H 06/25/18 08:39 Creatinine 1.0 mg/dl (0.7-1.2) 06/25/18 08:39 Est GFR ( Amer) > 60 06/25/18 08:39 Est GFR (Non-Af Amer) 58 06/25/18 08:39 POC Glucose (mg/dL) 149 mg/dL (65-110) H 06/20/18 12:00 Random Glucose 108 mg/dL (65-105) H 06/25/18 08:39 Hemoglobin A1c 5.9 % (4.2-6.5) 06/22/18 05:42 Calcium 10.1 mg/dL (8.4-10.2) 06/25/18 08:39 Phosphorus 5.4 mg/dl (2.5-4.5) H 06/20/18 13:20 Magnesium 1.3 MG/DL (1.6-2.3) L 06/20/18 13:20 Total Bilirubin 0.2 mg/dl (0.2-1.3) 06/25/18 08:39 AST 27 U/L (14-36) 06/25/18 08:39 ALT 19 U/L (9-52) 06/25/18 08:39 Alkaline Phosphatase 77 U/L (38-126) 06/25/18 08:39 Troponin I < 0.0120 ng/mL (0.00-0.120) 06/20/18 13:20 Total Protein 7.8 G/DL (6.3-8.2) 06/25/18 08:39 Albumin 3.7 g/dL (3.5-5.0) 06/25/18 08:39 Globulin 4.1 gm/dL (2.2-3.9) H 06/25/18 08:39 Albumin/Globulin Ratio 0.9 (1.0-2.1) L 06/25/18 08:39 Triglycerides 242 mg/DL (0-149) H D 06/22/18 05:42 Cholesterol 222 mg/dL (0-199) H 06/22/18 05:42 LDL Cholesterol Direct 160 mg/dL (0-129) H 06/22/18 05:42 HDL Cholesterol 27 MG/DL (30-70) L 06/22/18 05:42 Procalcitonin 0.13 NG/ML (0.19-0.49) L 06/18/18 15:00 - Hospital Course Hospital Course: This is a 52 y/o admitted from medical floor for UTI and debility. She needed to be on IV antibiotics and further therapy. She has a hx of CVA and has been bed bound ever since. She was given 7 days of iV antibiotics and responded very well. She was given phys therapy. She was discharged in stable condition to subacute rehab for further rehab. Discharge Exam - Head Exam Head Exam: NORMOCEPHALIC - Eye Exam Eye Exam: Normal appearance - Respiratory Exam Respiratory Exam: Clear to PA & Lateral - Cardiovascular Exam Cardiovascular Exam: REGULAR RHYTHM - GI/Abdominal Exam GI & Abdominal Exam: Normal Bowel Sounds Discharge Plan - Follow Up Plan Condition: STABLE Disposition: OTHER INSTITUTION Instructions: Urinary Tract Infection, Adult (DC), Pneumonia, Adult (DC) Additional Instructions: discharge to subacute rehab.
== END 2018-06-30 12:10 | DRG 56 ==
LOC: H.TCU 16:03
PROVIDERS: ADMIT Family Medicine; ATTEND Family Medicine
PROC: F07Z9FZ Gait Training/Functional Ambulation Treatment using Assistive, Adaptive, Supportive or Protective Equipment (ICD-10-PCS; 2018-06-16)
PROC: F07M6FZ Therapeutic Exercise Treatment of Musculoskeletal System - Whole Body using Assistive, Adaptive, Supportive or Protective Equipment (ICD-10-PCS; 2018-06-16)
PROC: F08Z4FZ Home Management Treatment using Assistive, Adaptive, Supportive or Protective Equipment (ICD-10-PCS; 2018-06-16)
PROC: 0CJS8ZZ Inspection of Larynx, Via Natural or Artificial Opening Endoscopic (ICD-10-PCS; principal; 2018-06-27)
DX: I69.354 Hemiplegia and hemiparesis following cerebral infarction affecting left non-dominant side (principal); J18.9 Pneumonia, unspecified organism; I47.1 Supraventricular tachycardia; J44.0 Chronic obstructive pulmonary disease with (acute) lower respiratory infection; N13.6 Pyonephrosis; I12.9 Hypertensive chronic kidney disease with stage 1 through stage 4 chronic kidney disease, or unspecified chronic kidney disease; L29.9 Pruritus, unspecified; N18.9 Chronic kidney disease, unspecified; I69.391 Dysphagia following cerebral infarction; Z85.43 Personal history of malignant neoplasm of ovary; Z86.711 Personal history of pulmonary embolism; Z87.01 Personal history of pneumonia (recurrent); Z87.440 Personal history of urinary (tract) infections; Z90.49 Acquired absence of other specified parts of digestive tract; Z90.710 Acquired absence of both cervix and uterus; K29.70 Gastritis, unspecified, without bleeding; R06.03 Acute respiratory distress; R32 Unspecified urinary incontinence; Z74.01 Bed confinement status; R07.0 Pain in throat; I69.322 Dysarthria following cerebral infarction; R49.0 Dysphonia; E78.00 Pure hypercholesterolemia, unspecified

== ENCOUNTER 2018-08-14 21:39 | Inpatient (IN) | payer MEDICARE, MEDICAID ==
[2018-08-14 21:39] VITALS: BMI 28.3
[2018-08-14] MEDS ORDERED: Sodium Chloride 0.9% 2,000 ML IV STA (22:25)
[2018-08-14 23:29] LABS: VENOUS BLOOD GAS BASE EXCESS -5.9 mmol/L (0.0-2.0); VENOUS BLOOD GAS PCO2 46 mmHg (40-60); VENOUS BLOOD GAS PO2 27 mm/Hg (30-55); VENOUS BLOOD PH 7.27 (7.32-7.43)
[2018-08-14 23:33] LABS: BASO % 0.1 % (0.0-2.0); EOS # 0.2 K/uL (0.0-0.7); EOS % 0.6 % (0.0-4.0); HEMOGLOBIN 13.2 g/dL (12.0-16.0); LYMPH % 3.3 % (20.0-40.0); MEAN CELL VOLUME 88.6 fl (81.0-99.0); MEAN CORPUSCULAR HGB CONC 32.7 g/dL (33.0-37.0); MEAN PLATELET VOLUME 7.3 fl (7.2-11.7); MONO # 2.1 K/uL (0.0-0.8); MONO % 6.8 % (0.0-10.0); NEUT % 89.2 % (50.0-75.0); PLATELET COUNT 305 K/uL (130-400); RBC 4.56 Mil/uL (3.80-5.20); RED CELL DISTRIBUTION WIDTH 16.6 % (11.5-14.5); WHITE BLOOD COUNT 31.4 K/uL (4.8-10.8)
[2018-08-14] MEDS ORDERED: Piperacillin/Tazobact 3.375 GM in Sodium Chloride 0.9% 100 ML IVPB STA (23:46)
[2018-08-15 00:11] LABS: INR 1.2; PROTHROMBIN TIME 13.8 Seconds (9.8-13.1)
[2018-08-15 00:14] LABS: PARTIAL THROMBOPLASTIN TIME 31.6 Seconds (25.6-37.1)
[2018-08-15] MEDS ORDERED: Vancomycin 1 g Inj ONE (00:22)
[2018-08-15 00:23] LABS: SQUAMOUS EPITHIAL 1 /hpf (0-5); URINE AMORPHOUS SEDIMENT MODERATE /ul (<OCC); URINE BACTERIA MANY (<OCC); URINE BILIRUBIN NEGATIVE (NEGATIVE); URINE BLOOD NEGATIVE (NEGATIVE); URINE CLARITY TURBID (Clear); URINE COLOR AMBER (YELLOW); URINE GLUCOSE (UA) NEG (NEGATIVE); URINE LEUKOCYTE ESTERASE MOD Leu/uL (Negative); URINE PROTEIN 100 mg/dL (NEGATIVE); URINE UROBILINOGEN 0.2-1.0 mg/dL (0.2-1.0)
--- NOTE | 2018-08-15 00:23 | ED PDOC ---
HPI: Fever Time Seen by Provider: 08/14/18 22:00 Additional Comments: 52 y/o female with history of CVA, seizure disorder, COPD, presents to the ED with fever and chills since this evening. Patient's noticed patient symptoms and checked her temperature which had a Tmax of 103. Patient is also complaining of abdominal pain. Denies cough, vomiting, abnormal stools. Patient has a chronic indwelling Castillo catheter. Past Medical History Reviewed: Historical Data, Nursing Documentation, Vital Signs Vital Signs: Last Vital Signs Temp 100 F H 08/14/18 21:45 Pulse 116 H 08/14/18 21:45 Resp 20 08/14/18 21:45 BP 109/67 08/14/18 21:45 Pulse Ox 98 08/14/18 21:45 - Medical History PMH: COPD, CVA, Depression, Gastritis, HTN, Hypercholesterolemia, Malignancy (c ervical cancer (remission since 2014)), Pneumonia, Pulmonary Embolism, Chronic Kidney Disease, TIA Denies: HIV - Surgical History Surgical History: Appendectomy, Cholecystectomy - Family History Family History: States: Unknown Family Hx - Home Medications Home Medications: Ambulatory Orders Medication Instructions Recorded Acetaminophen with Codeine 1 tab PO Q4 PRN 08/15/18 [Tylenol with Codeine No. 3 300 mg-30 mg] Albuterol/Ipratropium [Duoneb 3 3 ml IH TID PRN 08/15/18 MG/3 Ml-0.5 MG/3 Ml 3 Ml] Benzocaine/Menthol [Cepacol Sore 1 each MM Q2 PRN 08/15/18 Throat Lozenge] Docusate [Colace] 100 mg PO BID PRN 08/15/18 Gabapentin [Neurontin] 100 mg PO Q8 08/15/18 Lidocaine [Lidocaine Pain Relief] 1 each TP DAILY 08/15/18 Meclizine [Antivert] 25 mg PO Q8 08/15/18 Metoclopramide [Reglan] 10 mg PO Q6 PRN 08/15/18 Metoprolol Tartrate [Lopressor] 25 mg PO Q12 08/15/18 Pantoprazole Sodium [Protonix] 20 mg PO DAILY 08/15/18 hydrOXYzine HCl [Atarax] 25 mg PO Q8H 08/15/18 - Allergies Allergies/Adverse Reactions: Allergies Allergy/AdvReac Type Severity Reaction Status Date / Time cimetidine [From Tagamet] Allergy RASH Verified 06/10/18 22:34 nickel Allergy RASH Verified 06/10/18 22:34 Penicillins Allergy RASH Verified 06/10/18 22:34 Review of Systems ROS Statement: Except As Marked, All Systems Reviewed And Found Negative Constitutional: Positive for: Fever, Chills Respiratory: Negative for: Cough Gastrointestinal: Positive for: Abdominal Pain. Negative for: Vomiting, Diarrhea, Constipation, Melena, Hematochezia Genitourinary Female: Positive for: Other (chronic indwelling castillo cath) Physical Exam - Reviewed Nursing Documentation Reviewed: Yes Vital Signs Reviewed: Yes - Physical Exam Appears: Negative for: Well (chronically ill) Head Exam: Positive for: ATRAUMATIC, NORMAL INSPECTION, NORMOCEPHALIC Skin: Positive for: Normal Color, Warm, DRY Eye Exam: Positive for: EOMI, Normal appearance, PERRL ENT: Positive for: Normal ENT Inspection Neck: Positive for: Normal, Painless ROM Cardiovascular/Chest: Positive for: Regular Rate, Rhythm. Negative for: Murmur Respiratory: Positive for: Normal Breath Sounds. Negative for: Respiratory Distress Gastrointestinal/Abdominal: Positive for: Soft, Tenderness (diffuse). Negative for: Guarding, Rebound Pelvic Exam: Positive for: Other (Urine in catheter appears cloudy) Back: Positive for: Normal Inspection Extremity: Positive for: Normal ROM. Negative for: Pedal Edema, Deformity Neurological/Psych: Positive for: Awake, Alert, Normal Tone. Negative for: Motor/Sensory Deficits - Laboratory Results Result Diagrams: 08/14/18 23:18 08/14/18 23:53 Lab Results: pO2 27 mm/Hg (30-55) L 08/14/18 23:26 VBG pH 7.27 (7.32-7.43) L 08/14/18 23:26 VBG pCO2 46 mmHg (40-60) 08/14/18 23:26 VBG HCO3 18.8 mmol/L 08/14/18 23:26 VBG Total CO2 22.5 mmol/L (22-28) 08/14/18 23:26 VBG O2 Sat (Calc) 47.1 % (40-65) 08/14/18 23:26 VBG Base Excess -5.9 mmol/L (0.0-2.0) L 08/14/18 23:26 VBG Potassium 3.8 mmol/L (3.6-5.2) 08/14/18 23:26 Sodium 134.0 mmol/L (132-148) 08/14/18 23:26 Chloride 101.0 mmol/L (98-107) 08/14/18 23:26 Glucose 156 mg/dL (65-105) H 08/14/18 23:26 Lactate 2.7 mmol/L (0.7-2.1) H 08/14/18 23:26 FiO2 21.0 % 08/14/18 23:26 PT 13.8 Seconds (9.8-13.1) H 08/14/18 23:53 INR 1.2 08/14/18 23:53 APTT 31.6 Seconds (25.6-37.1) 08/14/18 23:53 - ECG O2 Sat by Pulse Oximetry: 98 (RA) Pulse Ox Interpretation: Normal Medical Decision Making Medical Decision Making: Time: 22:25 A/P: Sepsis. Sources could be urinary or intraabdominal. Will need fluids, antibiotics, and further sepsis workup * Labs * CXR * IV Fluids 0000 --Patient has leukocytoiss with bands, broad spectrum ABx ordered --Patient has evidence of urosepsis, fluid boluses given --Will replete Mag --CT shows possible enteritis as well, possible pneumonia --Patient improving with interventions --Dr. Meeks is aware of patient ------ Scribe Attestation: Documented by Sunday Oro, acting as a scribe Chance Palacios MD. Provider Scribe Attestation: All medical record entries made by the Scribe were at my direction and personally dictated by me. I have reviewed the chart and agree that the record accurately reflects my personal performance of the history, physical exam, medical decision making, and the department course for this patient. I have also personally directed, reviewed, and agree with the discharge instructions and disposition. Disposition - Clinical Impression Clinical Impression: UTI (urinary tract infection), Sepsis - Patient ED Disposition Is Patient to be Admitted: Yes Discussed With : Parmjit Meeks Counseled Patient/Family Regarding: Studies Performed, Diagnosis - Disposition Disposition Time: 00:00 Condition: FAIR
[2018-08-15 00:26] LABS: ALBUMIN 3.9 g/dL (3.5-5.0); CALCIUM 9.4 mg/dL (8.4-10.2)
[2018-08-15 00:27] LABS: BANDS 14 % (0-2); EOSINOPHIL 1 % (0-7); LYMPHOCYTE 3 % (20-50); METAMYELOCYTE 3 % (0-0); MONOCYTE 5 % (0-10); NEUTROPHIL 74 % (42-75); PLATELET CLUMPS PRESENT; PLATELET ESTIMATE NORMAL (NORMAL); TOTAL CELLS COUNTED 100; TOXIC GRANULATION PRESENT
[2018-08-15] MEDS ORDERED: Magnesium Sulfate 2 gm/50 ml 2 GM/50 ML BAG IVPB ONE (00:34)
[2018-08-15] MEDS ORDERED: Aztreonam 2 GM in Sodium Chloride 0.9% 100 ML IVPB STA (00:34)
[2018-08-15 02:42] LABS: VENOUS BLOOD GAS BASE EXCESS -6.8 mmol/L (0.0-2.0); VENOUS BLOOD GAS PCO2 45 mmHg (40-60); VENOUS BLOOD GAS PO2 30 mm/Hg (30-55); VENOUS BLOOD PH 7.26 (7.32-7.43)
[2018-08-15] MEDS ORDERED: Magnesium Sulfate 2 gm/50 ml 2 GM/50 ML BAG ONE (02:55)
[2018-08-15] MEDS ORDERED: Albuterol-Ipratrop 3 mg / 0.5 (3 ml) UD IH PRN (04:15)
[2018-08-15] MEDS: Dextrose 5%/Lactated Ringer's 1,000 ML IV SCH (04:33)
[2018-08-15] MEDS ORDERED: Lidocaine 2% GEL TOP ONE (05:41)
[2018-08-15 06:11] LABS: HEMOGLOBIN 12.4 g/dL (12.0-16.0); MEAN CELL VOLUME 87.9 fl (81.0-99.0); MEAN CORPUSCULAR HEMOGLOBIN 28.8 pg (27.0-31.0); MEAN CORPUSCULAR HGB CONC 32.8 g/dL (33.0-37.0); RBC 4.31 Mil/uL (3.80-5.20); RED CELL DISTRIBUTION WIDTH 16.4 % (11.5-14.5)
[2018-08-15 06:24] LABS: WHITE BLOOD COUNT 24.1 K/uL (4.8-10.8)
[2018-08-15 06:27] LABS: ALB/GLOB RATIO 0.9 (1.0-2.1); ALBUMIN 3.6 g/dL (3.5-5.0); CALCIUM 9.1 mg/dL (8.4-10.2)
[2018-08-15] MEDS ORDERED: Lidocaine 2% Jelly (Uro-Jet) TOP SCH (07:00)
--- NOTE | 2018-08-15 08:26 | CARD ---
APPROVED REPORT Date of service: 08/14/2018 EKG Measurement Heart [id number] <Conclusion> Sinus tachycardia Otherwise normal ECG
[2018-08-15] MEDS ORDERED: LIDOCAINE TP SCH (09:00)
--- NOTE | 2018-08-15 12:14 | CP.PCM.CON ---
History of Present Illness - History of Present Illness History of Present Illness: examined at bedside chart reviewed orders signed Past Patient History - Past Medical History & Family History Past Medical History?: Yes - Past Social History Smoking Status: Never Smoked - CARDIAC Hx Hypercholesterolemia: Yes Hx Hypertension: Yes - PULMONARY Hx Chronic Obstructive Pulmonary Disease (COPD): Yes Hx Pneumonia: Yes Hx Pulmonary Embolism: Yes - NEUROLOGICAL Hx Transient Ischemic Attacks (TIA): Yes - HEENT Hx HEENT Problems: Yes - RENAL Hx Chronic Kidney Disease: Yes - ENDOCRINE/METABOLIC Hx Endocrine Disorders: No - HEMATOLOGICAL/ONCOLOGICAL Hx Human Immunodeficiency Virus (HIV): No - INTEGUMENTARY Hx Dermatological Problems: Yes - MUSCULOSKELETAL/RHEUMATOLOGICAL Hx Falls: No - GASTROINTESTINAL Hx Gastritis: Yes - GENITOURINARY/GYNECOLOGICAL Hx Genitourinary Disorders: Yes - PSYCHIATRIC Hx Depression: Yes Hx Substance Use: No - SURGICAL HISTORY Hx Appendectomy: Yes Hx Cholecystectomy: Yes - ANESTHESIA Hx Anesthesia: Yes Hx Anesthesia Reactions: No Hx Malignant Hyperthermia: No Meds Allergies/Adverse Reactions: Allergies Allergy/AdvReac Type Severity Reaction Status Date / Time cimetidine [From [facility]] Allergy RASH Verified 06/10/18 22:34 nickel Allergy RASH Verified 06/10/18 22:34 Penicillins Allergy RASH Verified 06/10/18 22:34 - Medications Medications: Current Medications Albuterol/Ipratropium (Duoneb 3 Mg/0.5 Mg (3 Ml) Ud) 3 ml IH RQID PRN PRN Reason: Shortness of Breath Docusate Sodium (Colace) 100 mg PO BID PRN PRN Reason: Constipation Gabapentin (Neurontin) 100 mg PO Q8 ODETTE Dextrose/Lactated Ringer's (Dextrose 5%/Lactated Ringer's) 1,000 mls @ 100 mls/hr IV .Q10H ODETTE Stop: 08/16/18 04:21 Last Admin: 08/15/18 04:33 Dose: 100 mls/hr Aztreonam 2 gm/ Sodium (Chloride) 100 mls @ 100 mls/hr IVPB Q12 ODETTE; Protocol Vancomycin HCl 1 gm/ Sodium (Chloride) 250 mls @ 166.667 mls/hr IVPB DAILY ODETTE; Protocol Lidocaine (Lidoderm) 1 ea TD DAILY ODETTE Lidocaine HCl (Xylocaine 2% (Uro-Jet)) 1 ea TOP ONCE ODETTE Meclizine HCl (Antivert) 25 mg PO Q8 ODETTE Pantoprazole Sodium (Protonix Inj) 40 mg IVP DAILY ODETTE Tramadol HCl (Ultram) 50 mg PO Q6 PRN PRN Reason: Pain, severe (8-10) Last Admin: 08/15/18 04:30 Dose: 50 mg Results - Vital Signs Recent Vital Signs: Last Vital Signs Temp 101.8 F H 08/15/18 08:59 Pulse 117 H 08/15/18 08:59 Resp 21 08/15/18 08:59 BP 107/71 08/15/18 08:59 Pulse Ox 96 08/15/18 08:59 - Labs Result Diagrams: 08/15/18 05:55 08/15/18 05:55 Labs: Laboratory Results - last 24 hr 08/14/18 08/14/18 08/14/18 23:18 23:26 23:53 WBC 31.4 H D RBC 4.56 Hgb 13.2 Hct 40.4 MCV 88.6 MCH 29.0 MCHC 32.7 L RDW 16.6 H Plt Count 305 MPV 7.3 Neut % (Auto) 89.2 H Lymph % (Auto) 3.3 L Harris % (Auto) 6.8 Eos % (Auto) 0.6 Baso % (Auto) 0.1 Neut # (Auto) 28.0 H Lymph # (Auto) 1.0 Harris # (Auto) 2.1 H Eos # (Auto) 0.2 Baso # (Auto) 0.0 Neutrophils % (Manual) 74 Band Neutrophils % 14 H* Lymphocytes % (Manual) 3 L Monocytes % (Manual) 5 Eosinophils % (Manual) 1 Metamyelocytes % 3 H Toxic Granulation Present Platelet Estimate Normal Plt Clumps, EDTA Present RBC Morphology Normal ESR PT INR APTT pO2 27 L VBG pH 7.27 L VBG pCO2 46 VBG HCO3 18.8 VBG Total CO2 22.5 VBG O2 Sat (Calc) 47.1 VBG Base Excess -5.9 L VBG Potassium 3.8 Sodium 134.0 Chloride 101.0 Glucose 156 H Lactate 2.7 H FiO2 21.0 Potassium Carbon Dioxide Anion Gap BUN Creatinine Est GFR ( Amer) Est GFR (Non-Af Amer) Random Glucose Calcium Phosphorus Magnesium Total Bilirubin AST ALT Alkaline Phosphatase Total Protein Albumin Globulin Albumin/Globulin Ratio TSH 3rd Generation Venous Blood Potassium 3.8 Urine Color Shraddha Urine Clarity Turbid Urine pH 9.0 Ur Specific [place] 1.013 Urine Protein 100 Urine Glucose (UA) Neg Urine Ketones Negative Urine Blood Negative Urine Nitrate Positive H Urine Bilirubin Negative Urine Urobilinogen 0.2-1.0 Ur Leukocyte Esterase Mod Urine RBC (Auto) 5 H Urine Microscopic WBC 52 H Ur Squamous Epith Cells 1 Amorphous Sediment Moderate H Urine Bacteria Many H 08/14/18 08/14/18 08/15/18 23:53 23:53 02:38 WBC RBC Hgb Hct MCV MCH MCHC RDW Plt Count MPV Neut % (Auto) Lymph % (Auto) Harris % (Auto) Eos % (Auto) Baso % (Auto) Neut # (Auto) Lymph # (Auto) Harris # (Auto) Eos # (Auto) Baso # (Auto) Neutrophils % (Manual) Band Neutrophils % Lymphocytes % (Manual) Monocytes % (Manual) Eosinophils % (Manual) Metamyelocytes % Toxic Granulation Platelet Estimate Plt Clumps, EDTA RBC Morphology ESR PT 13.8 H INR 1.2 APTT 31.6 pO2 30 VBG pH 7.26 L VBG pCO2 45 VBG HCO3 18.2 VBG Total CO2 21.6 L VBG O2 Sat (Calc) 58.2 VBG Base Excess -6.8 L VBG Potassium 3.8 Sodium 136 133.0 Chloride 99 102.0 Glucose 133 H Lactate 2.6 H FiO2 21.0 Potassium 3.8 Carbon Dioxide 17 L Anion Gap 24 H BUN 34 H Creatinine 2.2 H Est GFR ( Amer) 28 Est GFR (Non-Af Amer) 23 Random Glucose 147 H Calcium 9.4 Phosphorus 5.3 H Magnesium 1.0 L* D Total Bilirubin 0.6 AST 67 H D ALT 54 H D Alkaline Phosphatase 95 Total Protein 7.7 Albumin 3.9 Globulin 3.8 Albumin/Globulin Ratio 1.0 TSH 3rd Generation Venous Blood Potassium 3.8 Urine Color Urine Clarity Urine pH Ur Specific [place] Urine Protein Urine Glucose (UA) Urine Ketones Urine Blood Urine Nitrate Urine Bilirubin Urine Urobilinogen Ur Leukocyte Esterase Urine RBC (Auto) Urine Microscopic WBC Ur Squamous Epith Cells Amorphous Sediment Urine Bacteria 08/15/18 08/15/18 08/15/18 05:55 05:55 09:15 WBC 24.1 H RBC 4.31 Hgb 12.4 Hct 37.9 MCV 87.9 MCH 28.8 MCHC 32.8 L RDW 16.4 H Plt Count 280 MPV Neut % (Auto) Lymph % (Auto) Harris % (Auto) Eos % (Auto) Baso % (Auto) Neut # (Auto) Lymph # (Auto) Harris # (Auto) Eos # (Auto) Baso # (Auto) Neutrophils % (Manual) Band Neutrophils % Lymphocytes % (Manual) Monocytes % (Manual) Eosinophils % (Manual) Metamyelocytes % Toxic Granulation Platelet Estimate Plt Clumps, EDTA RBC Morphology ESR 80 H PT INR APTT pO2 VBG pH VBG pCO2 VBG HCO3 VBG Total CO2 VBG O2 Sat (Calc) VBG Base Excess VBG Potassium Sodium 136 Chloride 100 Glucose Lactate FiO2 Potassium 3.6 Carbon Dioxide 18 L Anion Gap 22 H BUN 32 H Creatinine 1.9 H Est GFR ( Amer) 33 Est GFR (Non-Af Amer) 28 Random Glucose 138 H Calcium 9.1 Phosphorus Magnesium 2.0 Total Bilirubin 0.5 AST 42 H D ALT 49 Alkaline Phosphatase 87 Total Protein 7.3 Albumin 3.6 Globulin 3.8 Albumin/Globulin Ratio 0.9 L TSH 3rd Generation 1.98 Venous Blood Potassium Urine Color Urine Clarity Urine pH Ur Specific [place] Urine Protein Urine Glucose (UA) Urine Ketones Urine Blood Urine Nitrate Urine Bilirubin Urine Urobilinogen Ur Leukocyte Esterase Urine RBC (Auto) Urine Microscopic WBC Ur Squamous Epith Cells Amorphous Sediment Urine Bacteria
--- NOTE | 2018-08-15 12:39 | CT ---
PROCEDURE: CT Abdomen and Pelvis without Oral or IV contrast. HISTORY: abdominal pain, sepsis COMPARISON: CT abdomen and pelvis without IV contrast performed 06/11/18 TECHNIQUE: Contiguous axial images of the abdomen and pelvis. No oral or IV contrast administered. Coronal and Sagittal reformats generated and reviewed. Radiation dose: Total exam DLP = 621.13 mGy-cm. This CT exam was performed using one or more of the following dose reduction techniques: Automated exposure control, adjustment of the mA and/or kV according to patient size, and/or use of iterative reconstruction technique. FINDINGS: There is limited evaluation of the solid organs without the administration of IV contrast. LOWER THORAX: Right lower lobe dependent consolidation. Left basilar atelectasis. LIVER: Hepatomegaly. Hypoattenuation of the liver compatible with hepatic steatosis. GALLBLADDER AND BILE DUCTS: Cholecystectomy. PANCREAS: Atrophy. SPLEEN: Unremarkable. ADRENALS: Unremarkable. KIDNEYS AND URETERS: Moderate bilateral hydroureteronephrosis. Nonobstructing bilateral renal calculi. BLADDER: 6 mm calculus within the urinary bladder. Gas within the urinary bladder. Overton catheter. Urinary bladder wall appears thick walled. REPRODUCTIVE: Uterus is absent presumably due to hysterectomy. APPENDIX: The appendix is not identified. BOWEL: The stomach is nondistended. Lack of oral contrast limits evaluation for bowel pathology. The bowel loops appear within normal limits of caliber without evidence of intestinal obstruction. Thick walled fluid filled small bowel appears consistent with enteritis. PERITONEUM: No significant free fluid. No definite free air. LYMPH NODES: No bulky lymphadenopathy identified. VASCULATURE: IVC filter. No aortic aneurysm. BONES: Approximately 5 mm anterolisthesis of L4 on L5. OTHER FINDINGS: Postsurgical changes of the anterior abdominal wall. IMPRESSION: Thick-walled fluid-filled loops of small bowel appear consistent with enteritis. Moderate bilateral hydroureteronephrosis. Bilateral nonobstructing calculi. Gas within the urinary bladder may be secondary to recent instrumentation with Overton catheter which is present. Urinary bladder wall appears thick walled. Recommend correlation with urinalysis. 6 mm calculus is noted within the urinary bladder. Hepatomegaly. Hepatic steatosis. Right lower lobe dependent consolidation, possibly pneumonia. IVC filter. Approximately 5 mm anterolisthesis of L4 on L5. Additional findings as above. Preliminary impression was provided by [employer]
[2018-08-15] MEDS: Aztreonam 2 GM in Sodium Chloride 0.9% 100 ML IVPB SCH ×2 (12:45→21:07)
--- NOTE | 2018-08-15 12:59 | RAD ---
HISTORY: fever COMPARISON: Chest x-ray performed 06/11/18 TECHNIQUE: Chest, one view. FINDINGS: The patient's chin obscures evaluation of the lung apices. LUNGS: Hypoinflation. Linear atelectasis, left lung base. No focal consolidation. Please note that chest x-ray has limited sensitivity for the detection of pulmonary masses. PLEURA: No significant pleural effusion identified. No definite pneumothorax . CARDIOVASCULAR: Heart size appears within normal limits. No significant atherosclerotic calcification present. OSSEOUS STRUCTURES: No acute osseous abnormality identified. VISUALIZED UPPER ABDOMEN: Cholecystectomy clips. OTHER FINDINGS: None. IMPRESSION: Linear atelectasis, left lung base. No focal consolidation.
[2018-08-15] MEDS: Lidocaine 5% Patch TD SCH (15:30)
[2018-08-16 07:29] LABS: BASO # 0.1 K/uL (0.0-0.2); BASO % 0.4 % (0.0-2.0); EOS # 0.1 K/uL (0.0-0.7); EOS % 0.5 % (0.0-4.0); LYMPH # 0.8 K/uL (1.0-4.3); LYMPH % 4.5 % (20.0-40.0); MEAN CELL VOLUME 88.9 fl (81.0-99.0); MEAN CORPUSCULAR HGB CONC 32.6 g/dL (33.0-37.0); MEAN PLATELET VOLUME 7.3 fl (7.2-11.7); MONO # 1.4 K/uL (0.0-0.8); MONO % 8.5 % (0.0-10.0); NEUT # 14.6 K/uL (1.8-7.0); NEUT % 86.1 % (50.0-75.0); RBC 3.78 Mil/uL (3.80-5.20); RED CELL DISTRIBUTION WIDTH 16.4 % (11.5-14.5)
[2018-08-16 07:39] LABS: CALCIUM 9.2 mg/dL (8.4-10.2)
[2018-08-16] MEDS: Potassium Chloride 20 mEq 100 ML IVPB SCH ×2 (08:33→13:20)
[2018-08-16] MEDS: Lidocaine 5% Patch TD SCH (11:17)
[2018-08-16] MEDS: SILVASORB ANTIMICROBIAL WOUND GEL TP SCH (13:22)
[2018-08-16] MEDS: Pantoprazole 40 mg EC Tab PO SCH (13:23)
--- NOTE | 2018-08-16 13:58 | CP.PCM.CON ---
History of Present Illness - History of Present Illness History of Present Illness: 52 y/o female with history of CVA, seizure disorder, COPD, presents to the ED with fever and chills since this evening. Patient's noticed patient symptoms and checked her temperature which had a Tmax of 103. Patient is also complaining of abdominal pain. Denies cough, vomiting, abnormal stools. Patient has a chronic indwelling Castillo catheter. ID consulted for antibiotic management - Medical History PMH: COPD, CVA, Depression, Gastritis, HTN, Hypercholesterolemia, Malignancy (cervical cancer (remission since 2015)), Pneumonia, Pulmonary Embolism, Chronic Kidney Disease, TIA Denies: HIV - Surgical History Surgical History: Appendectomy, Cholecystectomy Review of Systems - Review of Systems All systems: reviewed and no additional remarkable complaints except - Constitutional Constitutional: As Per HPI - EENT Eyes: absent: As Per HPI, Blind Spots, Blurred Vision, Change in Vision, Decreased Night Vision, Diplopia, Discharge, Dry Eye, Exophthalmos, Floaters, Irritation, Itchy Eyes, Loss of Peripheral Vision, Pain, Photophobia, Requires Corrective Lenses, Sees Flashes, Spots in Vision, Tunnel Vision, Other Visual Disturbances, Loss of Vision, Other Ears: absent: As Per HPI, Decreased Hearing, Ear Discharge, Ear Pain, Tinnitus, Abnormal Hearing, Disequilibrium, Dizziness, Other Nose/Mouth/Throat: absent: As Per HPI, Epistaxis, Nasal Congestion, Nasal Discharge, Nasal Obstruction, Nasal Trauma, Nose Pain, Post Nasal Drip, Sinus Pain, Sinus Pressure, Bleeding Gums, Change in Voice, Dental Pain, Dry Mouth, Dysphagia, Halitosis, Hoarsness, Lip Swelling, Mouth Lesions, Mouth Pain, Odynophagia, Sore Throat, Throat Swelling, Tongue Swelling, Facial Pain, Neck Pain, Neck Mass, Other - Breasts Breasts: absent: As Per HPI, Change in Shape, Mass, Pain, Nipple Discharge, Nipple Inversion, Skin Changes, Swelling, Other - Cardiovascular Cardiovascular: As Per HPI - Respiratory Respiratory: absent: As Per HPI, Cough, Dyspnea, Hemoptysis, Dyspnea on Exertion, Wheezing, Snoring, Stridor, Pain on Inspiration, Chest Congestion, Excessive Mucous Production, Change in Mucous Color, Pain with Coughing, Other - Gastrointestinal Gastrointestinal: As Per HPI, Abdominal Pain - Genitourinary Genitourinary: As Per HPI, Freq UTI - Reproductive: Female Reproductive:Female: absent: As Per HPI, Amenorrhea, Amenorrhea/ Control, Currently Menstual, Cycle <21 Days, Cycle >35 Days, Cycle Variable, Menses 1-7 D ays, Menses >/= 8 Days, Menses Variable, Cycle > 4 Weeks Between, No Menses for 6 Months, Heavy Menses, Light Menses, Normal Menses, Spotting Between Cycles, S/P Hysterectomy, Menopausal, Post Menopausal, Premenarche, Abnormal Vaginal Bleeding, Dysmenorrhea, Dyspareunia, Genital Lesions, Genital Pruritis, Pelvic Pain, Prolapse Symptoms, Sexual Dysfunction, Vaginal Discharge, Vaginal Dryness, Vaginal Odor, Vaginal Pruritis, Other - Menstruation Menstruation: absent: As Per HPI, Amenorrhea, Amenorrhea/ Control, Currently Menstual, Cycle <21 Days, Cycle >35 Days, Cycle Variable, Menses 1-7 Days, Menses >/= 8 Days, Menses Variable, Cycle > 4 Weeks Between, No Menses for 6 Months, Heavy Menses, Light Menses, Normal Menses, Spotting Between Cycles, S/P Hysterectomy, Menopausal, Post Menopausal, Premenarche, Abnormal Vaginal Bleeding, Dysmenorrhea, Other - Musculoskeletal Musculoskeletal: absent: As Per HPI, Abnormal Gait, Arthralgias, Atrophy, Back Pain, Deformity, Joint Swelling, Limited Range of Motion, Loss of Height, Muscle Cramps, Muscle Weakness, Myalgias, Neck Pain, Numbness, Radiating Pain into Bennett b, Stiffness, Tingling, Other - Integumentary Integumentary: absent: As Per HPI, Acne, Alopecia, Bleeding Lesions, Change in Hair, Change in Nails, Change in Pigmentation, Changing Lesions, Dry Skin, Erythema, Furuncle, Hirsutism, Lesions, New Lesions, Non-Healing Lesions, Photosensitivity, Pruritus, Rash, Skin Pain, Skin Ulcer, Sores, Striae, Swelling, Unusual Bruising, Wounds, Jaundice, Other - Neurological Neurological: As Per HPI, Focal Weakness - Psychiatric Psychiatric: absent: As Per HPI, Abnormal Sleep Pattern, Anhedonia, Anxiety, Auditory Hallucinations, Behavioral Changes, Change in Appetite, Change in Libido, Confusion, Depression, Difficulty Concentrating, Hallucinations, Homicidal Ideation, Hopelessness, Irritability, Memory Loss, Mood Swings, Panic Attacks, Paranoia, Suicidal Ideation, Visual Hallucinations, Tactile Hallucinations, Other - Endocrine Endocrine: absent: As Per HPI, Change in Body Appearance, Change in Libido, Cold Intolorance, Deepening of Voice, Excessive Sweating, Fatigue, Flushing, Heat Intolorance, Increase in Ring/Shoe/Hat Size, Palpitations, Polydipsia, Polyphagia, Polyuria, Other - Hematologic/Lymphatic Hematologic: absent: As Per HPI, Easy Bleeding, Easy Bruising, Lymphadenopathy, Other Past Patient History - Past Medical History & Family History Past Medical History?: Yes - Past Social History Smoking Status: Never Smoked - CARDIAC Hx Hypercholesterolemia: Yes Hx Hypertension: Yes - PULMONARY Hx Chronic Obstructive Pulmonary Disease (COPD): Yes Hx Pneumonia: Yes Hx Pulmonary Embolism: Yes - NEUROLOGICAL Hx Transient Ischemic Attacks (TIA): Yes - HEENT Hx HEENT Problems: Yes - RENAL Hx Chronic Kidney Disease: Yes - ENDOCRINE/METABOLIC Hx Endocrine Disorders: No - HEMATOLOGICAL/ONCOLOGICAL Hx Human Immunodeficiency Virus (HIV): No - INTEGUMENTARY Hx Dermatological Problems: Yes - MUSCULOSKELETAL/RHEUMATOLOGICAL Hx Falls: No - GASTROINTESTINAL Hx Gastritis: Yes - GENITOURINARY/GYNECOLOGICAL Hx Genitourinary Disorders: Yes - PSYCHIATRIC Hx Depression: Yes Hx Substance Use: No - SURGICAL HISTORY Hx Appendectomy: Yes Hx Cholecystectomy: Yes - ANESTHESIA Hx Anesthesia: Yes Hx Anesthesia Reactions: No Hx Malignant Hyperthermia: No Meds Allergies/Adverse Reactions: Allergies Allergy/AdvReac Type Severity Reaction Status Date / Time cimetidine [From [facility]] Allergy RASH Verified 06/10/18 22:34 nickel Allergy RASH Verified 06/10/18 22:34 Penicillins Allergy RASH Verified 06/10/18 22:34 - Medications Medications: Current Medications Acetaminophen (Tylenol 325mg Tab) 650 mg PO Q6 PRN PRN Reason: Pain, Mild (1-3) Last Admin: 08/16/18 08:20 Dose: 650 mg Albuterol/Ipratropium (Duoneb 3 Mg/0.5 Mg (3 Ml) Ud) 3 ml IH RQID PRN PRN Reason: Shortness of Breath Docusate Sodium (Colace) 100 mg PO BID PRN PRN Reason: Constipation Gabapentin (Neurontin) 100 mg PO Q8 [facility] Last Admin: 08/16/18 09:17 Dose: 100 mg Aztreonam 2 gm/ Sodium (Chloride) 100 mls @ 100 mls/hr IVPB Q12 [facility]; Protocol Last Admin: 08/15/18 21:07 Dose: 100 mls/hr Vancomycin HCl 1 gm/ Sodium (Chloride) 250 mls @ 166.667 mls/hr IVPB DAILY@2300 [facility]; Protocol Last Admin: 08/15/18 22:38 Dose: 166.667 mls/hr Potassium Chloride (Potassium Cl 10meq/50ml Sterile Water) 50 mls @ 50 mls/hr IVPB Q1 [facility] Stop: 08/16/18 15:59 Lidocaine (Lidoderm) 1 ea TD DAILY [facility] Last Admin: 08/16/18 11:17 Dose: 1 ea Lidocaine HCl (Xylocaine 2% (Uro-Jet)) 1 ea TOP ONCE [facility] Meclizine HCl (Antivert) 25 mg PO Q8 [facility] Last Admin: 08/16/18 09:30 Dose: 25 mg Pantoprazole Sodium (Protonix Ec Tab) 40 mg PO DAILY [facility] Last Admin: 08/16/18 13:23 Dose: Not Given Tramadol HCl (Ultram) 50 mg PO Q6 PRN PRN Reason: Pain, severe (8-10) Last Admin: 08/16/18 13:24 Dose: 50 mg Physical Exam - Constitutional Appears: No Acute Distress, Chronically Ill - Head Exam Head Exam: ATRAUMATIC, NORMAL INSPECTION, NORMOCEPHALIC - Eye Exam Eye Exam: EOMI, Normal appearance, PERRL Pupil Exam: NORMAL ACCOMODATION, PERRL - ENT Exam ENT Exam: Mucous Membranes Moist, Normal Exam - Neck Exam Neck exam: Positive for: Normal Inspection - Respiratory Exam Respiratory Exam: Decreased Breath Sounds, Clear to Auscultation Bilateral, Prolonged Expiratory Phase - Cardiovascular Exam Cardiovascular Exam: Tachycardia, REGULAR RHYTHM, +S1, +S2 - GI/Abdominal Exam GI & Abdominal Exam: Diminished Bowel Sounds, Soft. absent: Guarding, Rebound, Rigid, Tenderness - Rectal Exam Rectal Exam: Deferred - Exam Exam: NORMAL INSPECTION - Extremities Exam Extremities exam: Positive for: normal inspection - Back Exam Back exam: NORMAL INSPECTION - Neurological Exam Neurological exam: Abnormal Gait, Alert, CN II-XII Intact, Motor Sensory Deficit, Oriented x3 - Psychiatric Exam Psychiatric exam: Anxious, Depressed - Skin Skin Exam: Dry, Intact, Normal Color, Warm Results - Vital Signs Recent Vital Signs: Last Vital Signs Temp 99.2 F 08/16/18 12:45 Pulse 105 H 08/16/18 12:45 Resp 20 08/16/18 12:45 BP 124/75 08/16/18 12:45 Pulse Ox 93 L 08/16/18 12:45 - Labs Result Diagrams: 08/16/18 07:20 08/16/18 07:20 Labs: Laboratory Results - last 24 hr 08/16/18 08/16/18 07:20 07:20 WBC 17.0 H RBC 3.78 L Hgb 11.0 L Hct 33.6 L MCV 88.9 MCH 29.0 MCHC 32.6 L RDW 16.4 H Plt Count 234 MPV 7.3 Neut % (Auto) 86.1 H Lymph % (Auto) 4.5 L [place] % (Auto) 8.5 Eos % (Auto) 0.5 Baso % (Auto) 0.4 Neut # (Auto) 14.6 H Lymph # (Auto) 0.8 L [place] # (Auto) 1.4 H Eos # (Auto) 0.1 Baso # (Auto) 0.1 Sodium 137 Potassium 2.9 L Chloride 103 Carbon Dioxide 19 L Anion Gap 18 BUN 26 H Creatinine 1.2 Est GFR ( Amer) 57 Est GFR (Non-Af Amer) 47 Random Glucose 88 Calcium 9.2 Assessment & Plan (1) Sepsis Status: Acute (2) Urinary tract infection Status: Acute (3) Acute renal failure (ARF) Status: Acute Priority: High - Assessment and Plan (Free Text) Assessment: infection from indwelling castillo s/p cva conside eval / intermittent catheterization await final; cultures cont IV antibiotic s
[2018-08-16] MEDS: Potassium CL 10 MEQ/50 ML 50 ML IVPB SCH ×2 (15:23→16:25)
[2018-08-16] MEDS: Aztreonam 2 GM in Sodium Chloride 0.9% 100 ML IVPB SCH (16:26)
[2018-08-16] MEDS: Menthol/Methyl Salicylate Oinment TOP PRN (21:59)
[2018-08-17] MEDS ORDERED: Aztreonam 2 GM in Sodium Chloride 0.9% 100 ML IVPB SCH (04:00)
[2018-08-17] MEDS: Dextrose 5%/Lactated Ringer's 1,000 ML IV SCH (04:46)
[2018-08-17] MEDS ORDERED: Magnesium Hydroxide Susp 30 ml UD PO ONE (05:33)
[2018-08-17 06:24] LABS: BASO % 0.2 % (0.0-2.0); EOS % 0.1 % (0.0-4.0); HEMOGLOBIN 12.3 g/dL (12.0-16.0); LYMPH % 6.1 % (20.0-40.0); MEAN CELL VOLUME 88.5 fl (81.0-99.0); MEAN CORPUSCULAR HEMOGLOBIN 28.9 pg (27.0-31.0); MEAN CORPUSCULAR HGB CONC 32.7 g/dL (33.0-37.0); MEAN PLATELET VOLUME 7.6 fl (7.2-11.7); MONO # 1.5 K/uL (0.0-0.8); MONO % 8.6 % (0.0-10.0); NEUT # 14.7 K/uL (1.8-7.0); NRBC % 0.1 % (0.0-0.0); RBC 4.23 Mil/uL (3.80-5.20); RED CELL DISTRIBUTION WIDTH 16.4 % (11.5-14.5); WHITE BLOOD COUNT 17.3 K/uL (4.8-10.8)
[2018-08-17 06:42] LABS: ALB/GLOB RATIO 0.7 (1.0-2.1); ALBUMIN 3.5 g/dL (3.5-5.0); ALT/SGPT 20 U/L (9-52); AST/SGOT 32 U/L (14-36); BLOOD UREA NITROGEN 17 mg/dl (7-17); CALCIUM 10.4 mg/dL (8.4-10.2); GFR NON-AFRICAN AMERICAN 58
--- NOTE | 2018-08-17 08:28 | CP.PCM.HP ---
History of Present Illness - History of Present Illness History of Present Illness: This is a 52 y/o female bedbound since she had a CVA was noted by her to have fever. She was recently hospitalized for UTI sepsis from [facility]. At the ER, WBC was 31 and had a low grade fever. She was given Aztreonam initially. Today WBC dropped to 24.1 Medical Hx CVA HTN COPD renl insufficiency PE Hyperlipidemia multiple hospitalizations for UTI Present on Admission - Present on Admission Any Indicators Present on Admission: No History of DVT/PE: Yes History of Uncontrolled Diabetes: No Urinary Catheter: No Decubitus Ulcer Present: No Review of Systems - Genitourinary Genitourinary: Difficulty Urinating, Dysuria Past Patient History - Past Medical History & Family History Past Medical History?: Yes - Past Social History Smoking Status: Never Smoked - CARDIAC Hx Hypercholesterolemia: Yes Hx Hypertension: Yes - PULMONARY Hx Chronic Obstructive Pulmonary Disease (COPD): Yes Hx Pneumonia: Yes Hx Pulmonary Embolism: Yes - NEUROLOGICAL Hx Transient Ischemic Attacks (TIA): Yes - HEENT Hx HEENT Problems: Yes - RENAL Hx Chronic Kidney Disease: Yes - ENDOCRINE/METABOLIC Hx Endocrine Disorders: No - HEMATOLOGICAL/ONCOLOGICAL Hx Human Immunodeficiency Virus (HIV): No - INTEGUMENTARY Hx Dermatological Problems: Yes - MUSCULOSKELETAL/RHEUMATOLOGICAL Hx Falls: No - GASTROINTESTINAL Hx Gastritis: Yes - GENITOURINARY/GYNECOLOGICAL Hx Genitourinary Disorders: Yes - PSYCHIATRIC Hx Depression: Yes Hx Substance Use: No - SURGICAL HISTORY Hx Appendectomy: Yes Hx Cholecystectomy: Yes - ANESTHESIA Hx Anesthesia: Yes Hx Anesthesia Reactions: No Hx Malignant Hyperthermia: No Meds Allergies/Adverse Reactions: Allergies Allergy/AdvReac Type Severity Reaction Status Date / Time [facility] Allergy RASH Verified 06/10/18 22:34 nickel Allergy RASH Verified 06/10/18 22:34 Penicillins Allergy RASH Verified 06/10/18 22:34 Physical Exam - Head Exam Head Exam: NORMAL INSPECTION - Eye Exam Eye Exam: Normal appearance - ENT Exam ENT Exam: Mucous Membranes Moist - Respiratory Exam Respiratory Exam: Clear to Auscultation Bilateral - Cardiovascular Exam Cardiovascular Exam: REGULAR RHYTHM - GI/Abdominal Exam GI & Abdominal Exam: Normal Bowel Sounds - Neurological Exam Neurological exam: CN II-XII Intact Results - Vital Signs Recent Vital Signs: Last Vital Signs Temp 98.6 F 08/17/18 08:02 Pulse 115 H 08/17/18 08:02 Resp 18 08/17/18 08:02 BP 128/81 08/17/18 08:02 Pulse Ox 94 L 08/17/18 08:02 - Labs Result Diagrams: 08/17/18 05:00 08/17/18 05:00 Labs: Laboratory Results - last 24 hr 08/15/18 08/17/18 08/17/18 13:40 05:00 05:00 WBC 17.3 H RBC 4.23 Hgb 12.3 Hct 37.5 MCV 88.5 MCH 28.9 MCHC 32.7 L RDW 16.4 H Plt Count 380 D MPV 7.6 Neut % (Auto) 85.0 H Lymph % (Auto) 6.1 L Angel[place] % (Auto) 8.6 Eos % (Auto) 0.1 Baso % (Auto) 0.2 Neut # (Auto) 14.7 H Lymph # (Auto) 1.0 [place] # (Auto) 1.5 H Eos # (Auto) 0.0 Baso # (Auto) 0.0 Sodium 142 Potassium 3.2 L Chloride 107 Carbon Dioxide 23 Anion Gap 15 BUN 17 Creatinine 1.0 Est GFR ( Amer) > 60 Est GFR (Non-Af Amer) 58 Random Glucose 122 H Calcium 10.4 H Phosphorus 3.3 Magnesium 1.6 Total Bilirubin 0.3 AST 32 ALT 20 Alkaline Phosphatase 103 Total Protein 8.3 H Albumin 3.5 Globulin 4.8 H Albumin/Globulin Ratio 0.7 L Influenza Typ A,B (EIA) Negative for flu a/b Assessment & Plan (1) Sepsis Status: Acute (2) Urinary tract infection Status: Acute (3) Renal insufficiency Status: Acute (4) Status post CVA Status: Acute - Assessment and Plan (Free Text) Plan: IV antibiotics Hydration ID eval urine and blood C and S monitor CBC CMP telemetry
[2018-08-17] MEDS: Lidocaine 5% Patch TD SCH (08:46)
[2018-08-17] MEDS: Pantoprazole 40 mg EC Tab PO SCH (08:48)
[2018-08-17] MEDS: SILVASORB ANTIMICROBIAL WOUND GEL TP SCH (08:48)
[2018-08-17] MEDS: Potassium CL 10 MEQ/50 ML 50 ML IVPB SCH ×2 (12:38→15:30)
--- NOTE | 2018-08-17 17:21 | CP.PCM.PN ---
Subjective - Date & Time of Evaluation Date of Evaluation: 08/17/18 Time of Evaluation: 11:00 - Subjective Subjective: patient seen and examined at bedside. Interim events noted states some GERD, usually relieved with prilosec denies cp/sob/fever/chills. available diagnostic data reviewed Review of Systems All systems: reviewed and no additional remarkable complaints except mentioned above Objective Vital Signs Stable - Constitutional Appears: Non-toxic, No Acute Distress Head Exam: NORMAL INSPECTION Eye Exam: Normal appearance Respiratory Exam: NORMAL BREATHING PATTERN Cardiovascular Exam: +S1, +S2 GI & Abdominal Exam: Soft Neurological Exam: Alert, Awake Psychiatric exam: Normal Affect, Normal Mood Skin Exam: Normal Color, Warm Assessment and Plan monitor vitals monitor labs Cont meds Cont tx consultants appreciated input WBC remains elevated urine culture reviewed, IV abx changed to Merrem rest of plan as ordered Objective - Vital Signs/Intake and Output Vital Signs (last 24 hours): Temp Pulse Resp BP Pulse Ox 98.4 F 107 H 18 123/91 H 97 08/17/18 16:19 08/17/18 16:19 08/17/18 16:19 08/17/18 16:19 08/17/18 16:19 Intake and Output: 08/17/18 08/17/18 06:59 18:59 Intake Total 1450 Output Total 700 Balance 750 - Medications Medications: Current Medications Acetaminophen (Tylenol 325mg Tab) 650 mg PO Q6 PRN PRN Reason: Pain, Mild (1-3) Last Admin: 08/17/18 08:50 Dose: 650 mg Albuterol/Ipratropium (Duoneb 3 Mg/0.5 Mg (3 Ml) Ud) 3 ml IH RQID PRN PRN Reason: Shortness of Breath Camphor/Menthol (Bengay) 1 applic TOP Q6 PRN PRN Reason: Muscle spasm Last Admin: 08/16/18 21:59 Dose: 1 applic Docusate Sodium (Colace) 100 mg PO BID PRN PRN Reason: Constipation Gabapentin (Neurontin) 100 mg PO Q8 [facility] Last Admin: 08/17/18 08:47 Dose: 100 mg Vancomycin HCl 1 gm/ Sodium (Chloride) 250 mls @ 166.667 mls/hr IVPB DAILY@2300 [facility]; Protocol Last Admin: 08/16/18 22:37 Dose: 166.667 mls/hr Meropenem 1 gm/ Sodium (Chloride) 100 mls @ 100 mls/hr IVPB Q8 [facility]; Protocol Lidocaine (Lidoderm) 1 ea TD DAILY [facility] Last Admin: 08/17/18 08:46 Dose: 1 ea Lidocaine HCl (Xylocaine 2% (Uro-Jet)) 1 ea TOP ONCE [facility] Meclizine HCl (Antivert) 25 mg PO Q8 [facility] Last Admin: 08/17/18 08:46 Dose: 25 mg Nystatin (Nystop Topical Powder) 1 applic TOP TID [facility] Last Admin: 08/17/18 12:43 Dose: 1 applic Ondansetron HCl (Zofran Inj) 4 mg IVP Q4 PRN PRN Reason: Nausea/Vomiting Last Admin: 08/17/18 12:42 Dose: 4 mg Pantoprazole Sodium (Protonix Inj) 40 mg IVP DAILY [facility] Last Admin: 08/17/18 12:39 Dose: 40 mg Tramadol HCl (Ultram) 50 mg PO Q6 PRN PRN Reason: Pain, severe (8-10) Last Admin: 08/17/18 04:52 Dose: 50 mg - Labs Labs: 08/17/18 05:00 08/17/18 05:00 PT 13.8 Seconds (9.8-13.1) H 08/14/18 23:53 INR 1.2 08/14/18 23:53 APTT 31.6 Seconds (25.6-37.1) 08/14/18 23:53 Assessment and Plan (1) Sepsis Status: Acute (2) Status post CVA Status: Acute (3) Urinary tract infection Status: Acute
[2018-08-17] MEDS: Meropenem 1 GM in Sodium Chloride 0.9% 100 ML IVPB SCH (17:43)
[2018-08-18] MEDS: Meropenem 1 GM in Sodium Chloride 0.9% 100 ML IVPB SCH ×3 (00:06→17:55)
--- NOTE | 2018-08-18 01:23 | CP.PCM.PN ---
Subjective - Date & Time of Evaluation Date of Evaluation: 08/16/18 Time of Evaluation: 07:30 - Subjective Subjective: Pt seen and assessed at bedside. Reports feeling better. WBC remains elevated, pt has h/o recurrent Urosepsis. Subjective Review of Systems: Reviewed and no additional remarkable complaints except generalized body pain. Objective Vital Signs Stable Appears: Non-toxic, No Acute Distress. Head Exam: NORMAL INSPECTION, normocephalic. Eye Exam: Normal appearance, EOMI, PERRLA. Respiratory Exam: NORMAL BREATHING PATTERN, breath sounds clear to auscultation. Cardiovascular Exam: +S1, +S2. RRR GI & Abdominal Exam: Soft, non-tender, non-distended. Neurological Exam: Alert, Awake, Oriented x3. Psychiatric exam: Normal Affect, Normal Mood Skin Exam: Pale, Warm, Dry. Assessment/Impression/Plan: 1.) UTI/Urosepsis -Continue IV Antibiotics (Currently on Vanco and Azactam). -Infectious disease consult appreciated. -WBC trending downward. -Pending urine culture; adjust antibiotics accordingly. -Continue current treatment, monitor for additional s/s infection. Objective - Vital Signs/Intake and Output Vital Signs (last 24 hours): Temp Pulse Resp BP Pulse Ox 99.7 F H 110 H 16 126/76 94 L 08/18/18 00:43 08/18/18 00:43 08/18/18 00:43 08/18/18 00:43 08/18/18 00:43 Intake and Output: 08/17/18 08/18/18 18:59 06:59 Intake Total 2009 Output Total 1250 Balance 760 - Medications Medications: Current Medications Acetaminophen (Tylenol 325mg Tab) 650 mg PO Q6 PRN PRN Reason: Pain, Mild (1-3) Last Admin: 08/17/18 08:50 Dose: 650 mg Albuterol/Ipratropium (Duoneb 3 Mg/0.5 Mg (3 Ml) Ud) 3 ml IH RQID PRN PRN Reason: Shortness of Breath Camphor/Menthol (Bengay) 1 applic TOP Q6 PRN PRN Reason: Muscle spasm Last Admin: 08/16/18 21:59 Dose: 1 applic Docusate Sodium (Colace) 100 mg PO BID PRN PRN Reason: Constipation Gabapentin (Neurontin) 100 mg PO Q8 [facility] Last Admin: 08/18/18 00:06 Dose: 100 mg Vancomycin HCl 1 gm/ Sodium (Chloride) 250 mls @ 166.667 mls/hr IVPB DAILY@2300 [facility]; Protocol Last Admin: 08/17/18 22:17 Dose: 166.667 mls/hr Meropenem 1 gm/ Sodium (Chloride) 100 mls @ 100 mls/hr IVPB Q8 [facility]; Protocol Last Admin: 08/18/18 00:06 Dose: 100 mls/hr Lidocaine (Lidoderm) 1 ea TD DAILY [facility] Last Admin: 08/17/18 08:46 Dose: 1 ea Lidocaine HCl (Xylocaine 2% (Uro-Jet)) 1 ea TOP ONCE [facility] Meclizine HCl (Antivert) 25 mg PO Q8 [facility] Last Admin: 08/18/18 00:04 Dose: 25 mg Nystatin (Nystop Topical Powder) 1 applic TOP TID [facility] Last Admin: 08/17/18 17:38 Dose: 1 applic Ondansetron HCl (Zofran Inj) 4 mg IVP Q4 PRN PRN Reason: Nausea/Vomiting Last Admin: 08/17/18 22:16 Dose: 4 mg Pantoprazole Sodium (Protonix Inj) 40 mg IVP DAILY [facility] Last Admin: 08/17/18 12:39 Dose: 40 mg Tramadol HCl (Ultram) 50 mg PO Q6 PRN PRN Reason: Pain, severe (8-10) Last Admin: 08/18/18 00:45 Dose: 50 mg - Labs Labs: 08/17/18 05:00 08/17/18 05:00 PT 13.8 Seconds (9.8-13.1) H 08/14/18 23:53 INR 1.2 08/14/18 23:53 APTT 31.6 Seconds (25.6-37.1) 08/14/18 23:53 Assessment and Plan (1) UTI (urinary tract infection) Status: Acute (2) Leukocytosis Status: Acute
[2018-08-18 06:26] LABS: HEMOGLOBIN 12.3 g/dL (12.0-16.0); MEAN CELL VOLUME 89.1 fl (81.0-99.0); MEAN CORPUSCULAR HEMOGLOBIN 29.3 pg (27.0-31.0); MEAN CORPUSCULAR HGB CONC 32.9 g/dL (33.0-37.0); RBC 4.19 Mil/uL (3.80-5.20); WHITE BLOOD COUNT 12.8 K/uL (4.8-10.8)
[2018-08-18 06:36] LABS: BLOOD UREA NITROGEN 14 mg/dl (7-17); CALCIUM 10.2 mg/dL (8.4-10.2); GFR NON-AFRICAN AMERICAN 58
[2018-08-18] MEDS: Lidocaine 5% Patch TD SCH (09:38)
[2018-08-18] MEDS: SILVASORB ANTIMICROBIAL WOUND GEL TP SCH (09:41)
--- NOTE | 2018-08-18 09:41 | RAD ---
Date of service: 08/17/2018 HISTORY: Vomiting COMPARISON: Comparison made with CT scan abdomen pelvis 08/15/2018. FINDINGS: BOWEL: Several air-filled distended loops of bowel present within the abdomen possibly representing ileus in this patient with changes of enteritis seen on prior CT scan... No gross free intraperitoneal air is identified on these limited supine views BONES: Normal. OTHER FINDINGS: In situ IVC filter and metallic clips right upper quadrant of the abdomen consistent with prior cholecystectomy. Multiple metallic clips are also again seen in the lower abdomen and pelvis bilaterally. IMPRESSION: Several air-filled distended loops of bowel present within the abdomen possibly representing ileus in this patient with changes of enteritis seen on prior CT scan..
[2018-08-18 13:49] LABS: BLOOD UREA NITROGEN 13 mg/dl (7-17); CALCIUM 10.3 mg/dL (8.4-10.2); GFR NON-AFRICAN AMERICAN > 60
--- NOTE | 2018-08-18 14:32 | CP.PCM.PN ---
Subjective - Date & Time of Evaluation Date of Evaluation: 08/18/18 Time of Evaluation: 08:00 - Subjective Subjective: 52 y/o female with history of CVA, seizure disorder, COPD, presents to the ED with fever and chills since this evening. Patient's noticed patient symptoms and checked her temperature which had a Tmax of 103. Patient is also complaining of abdominal pain. Denies cough, vomiting, abnormal stools. Patient has a chronic indwelling Overton catheter. ID consulted for antibiotic management growing ESBL Urine IV merrem in progress- tolerating well Objective - Vital Signs/Intake and Output Vital Signs (last 24 hours): Temp Pulse Resp BP Pulse Ox 98.4 F 105 H 18 129/83 95 08/18/18 11:57 08/18/18 11:57 08/18/18 11:57 08/18/18 11:57 08/18/18 11:57 - Medications Medications: Current Medications Acetaminophen (Tylenol 325mg Tab) 650 mg PO Q6 PRN PRN Reason: Pain, Mild (1-3) Last Admin: 08/17/18 08:50 Dose: 650 mg Albuterol/Ipratropium (Duoneb 3 Mg/0.5 Mg (3 Ml) Ud) 3 ml IH RQID PRN PRN Reason: Shortness of Breath Camphor/Menthol (Bengay) 1 applic TOP Q6 PRN PRN Reason: Muscle spasm Last Admin: 08/16/18 21:59 Dose: 1 applic Docusate Sodium (Colace) 100 mg PO BID PRN PRN Reason: Constipation Gabapentin (Neurontin) 100 mg PO Q8 [facility] Last Admin: 08/18/18 09:39 Dose: Not Given Vancomycin HCl 1 gm/ Sodium (Chloride) 250 mls @ 166.667 mls/hr IVPB DAILY@2300 [facility]; Protocol Last Admin: 08/17/18 22:17 Dose: 166.667 mls/hr Meropenem 1 gm/ Sodium (Chloride) 100 mls @ 100 mls/hr IVPB Q8 [facility]; Protocol Last Admin: 08/18/18 00:06 Dose: 100 mls/hr Potassium Chloride/Dextrose/Sod Cl (Potassium Chl 20 Meq In D5-1/2ns) 1,000 mls @ 100 mls/hr IV .Q10H [facility] Stop: 08/19/18 11:13 Lidocaine (Lidoderm) 1 ea TD DAILY [facility] Last Admin: 08/18/18 09:38 Dose: 1 ea Lidocaine HCl (Xylocaine 2% (Uro-Jet)) 1 ea TOP ONCE [facility] Meclizine HCl (Antivert) 25 mg PO Q8 [facility] Last Admin: 08/18/18 09:37 Dose: Not Given Nystatin (Nystop Topical Powder) 1 applic TOP TID [facility] Last Admin: 08/18/18 09:40 Dose: 1 applic Ondansetron HCl (Zofran Inj) 4 mg IVP Q4 PRN PRN Reason: Nausea/Vomiting Last Admin: 08/17/18 22:16 Dose: 4 mg Pantoprazole Sodium (Protonix Inj) 40 mg IVP DAILY [facility] Last Admin: 08/18/18 09:40 Dose: 40 mg Tramadol HCl (Ultram) 50 mg PO Q6 PRN PRN Reason: Pain, severe (8-10) Last Admin: 08/18/18 00:45 Dose: 50 mg - Labs Labs: 08/18/18 05:00 08/18/18 13:16 PT 13.8 Seconds (9.8-13.1) H 08/14/18 23:53 INR 1.2 08/14/18 23:53 APTT 31.6 Seconds (25.6-37.1) 08/14/18 23:53 - Constitutional Appears: No Acute Distress, Chronically Ill - Head Exam Head Exam: ATRAUMATIC, NORMAL INSPECTION, NORMOCEPHALIC - Eye Exam Eye Exam: EOMI, Normal appearance, PERRL Pupil Exam: NORMAL ACCOMODATION, PERRL - ENT Exam ENT Exam: Mucous Membranes Moist, Normal Exam - Neck Exam Neck Exam: Full ROM, Normal Inspection. absent: Lymphadenopathy - Respiratory Exam Respiratory Exam: Clear to Ausculation Bilateral, NORMAL BREATHING PATTERN - Cardiovascular Exam Cardiovascular Exam: REGULAR RHYTHM, +S1, +S2. absent: Murmur - GI/Abdominal Exam GI & Abdominal Exam: Soft, Normal Bowel Sounds. absent: Tenderness - Rectal Exam Rectal Exam: Deferred - Exam Exam: NORMAL INSPECTION - Extremities Exam Extremities Exam: Full ROM, Normal Capillary Refill, Normal Inspection. absent: Joint Swelling, Pedal Edema - Back Exam Back Exam: NORMAL INSPECTION - Neurological Exam Neurological Exam: Alert, Awake, CN II-XII Intact, Motor Sensory Deficit, Oriented x3. absent: Normal Gait, Reflexes Normal Neuro motor strength exam: Left Upper Extremity: 3, Right Upper Extremity: 2/1, Left Lower Extremity: 3, Right Lower Extremity: 2/1 - Psychiatric Exam Psychiatric exam: Depressed - Skin Skin Exam: Dry, Intact, Normal Color, Warm Assessment and Plan (1) Sepsis Status: Acute (2) Urinary tract infection Status: Acute (3) Acute renal failure (ARF) Status: Acute - Assessment and Plan (Free Text) Assessment: 52 y/o female with history of CVA, seizure disorder, COPD, presents to the ED with fever and chills since this evening. Patient's noticed patient symptoms and checked her temperature which had a Tmax of 103. Patient is also complaining of abdominal pain. Denies cough, vomiting, abnormal stools. Patient has a chronic indwelling Overton catheter. ID consulted for antibiotic management growing ESBL Urine IV merrem in progress- tolerating well cont rx for 14 days
[2018-08-18] MEDS: Potassium Ch 20mEq in D5-1/2NS 1,000 ML IV SCH ×2 (14:58→21:17)
[2018-08-18] MEDS: Menthol/Methyl Salicylate Oinment TOP PRN (21:19)
[2018-08-19] MEDS: Meropenem 1 GM in Sodium Chloride 0.9% 100 ML IVPB SCH ×3 (00:25→17:18)
[2018-08-19 06:16] LABS: HEMOGLOBIN 11.7 g/dL (12.0-16.0); MEAN CELL VOLUME 88.9 fl (81.0-99.0); MEAN CORPUSCULAR HGB CONC 32.7 g/dL (33.0-37.0); RBC 4.02 Mil/uL (3.80-5.20); RED CELL DISTRIBUTION WIDTH 15.6 % (11.5-14.5); WHITE BLOOD COUNT 13.8 K/uL (4.8-10.8)
[2018-08-19 08:10] LABS: BLOOD UREA NITROGEN 12 mg/dl (7-17); CALCIUM 9.1 mg/dL (8.4-10.2); GFR NON-AFRICAN AMERICAN > 60
[2018-08-19] MEDS: Potassium Ch 20mEq in D5-1/2NS 1,000 ML IV SCH (09:15)
[2018-08-19] MEDS: SILVASORB ANTIMICROBIAL WOUND GEL TP SCH (09:30)
[2018-08-19] MEDS: Lidocaine 5% Patch TD SCH (09:30)
[2018-08-19] MEDS: Menthol/Methyl Salicylate Oinment TOP PRN (12:12)
[2018-08-19] MEDS ORDERED: Magnesium Sulfate 2 gm/50 ml 2 GM/50 ML BAG IVPB ONE ×2 (12:47→13:45)
--- NOTE | 2018-08-19 12:50 | CP.PCM.CON ---
<Luther Rodriguez - Last Filed: 08/19/18 14:15> History of Present Illness - History of Present Illness History of Present Illness: General Surgery Consult Note for Dr. Reyes Reason for consult: ileus 52 F with PMH that includes HTN, CVA with left hemiparesis, TIA, [place], Cervical CA s/p chemorads and RODRIGO, SBO s/p ex-lap, recurrent UTIs presents with abdominal pain and ileus. Patient was seen and evaluated on the telemetry floor. Patient was admitted 08/14 for ESBL UTI and abdominal pain. She states that she was not feeling well for about 2 weeks. Patient reports intermittent small amounts of flatus and a liquid BM earlier today. Patient has had persistent hypokalemia and hypomagnesemia. Patient rates pain as moderate. She describes it as constant, diffuse, dull and cramping. She states that she feels the same as she did when she came into the hospital. Admits to nausea and fever/chills. Denies cp, SOB, vomiting, constipation, incontience, melena, hematochezia. PMH: HTN, CVA with left hemiparesis, TIA, [place], Cervical CA s/p chemorads and RODRIGO, SBO s/p ex-lap, recurrent UTIs PSH: ex-lap, RODRIGO, Trach/Peg tube, bilateral knee replacement, meniscus surgery, cardiac cath ALL: cimetidine, PCN, nickel Review of Systems - Review of Systems All systems: reviewed and no additional remarkable complaints except (as per HPI) Past Patient History - Past Medical History & Family History Past Medical History?: Yes - Past Social History Smoking Status: Never Smoked - CARDIAC Hx Hypercholesterolemia: Yes Hx Hypertension: Yes - PULMONARY Hx Chronic Obstructive Pulmonary Disease (COPD): Yes Hx Pneumonia: Yes Hx Pulmonary Embolism: Yes - NEUROLOGICAL Hx Transient Ischemic Attacks (TIA): Yes - HEENT Hx HEENT Problems: Yes - RENAL Hx Chronic Kidney Disease: Yes - ENDOCRINE/METABOLIC Hx Endocrine Disorders: No - HEMATOLOGICAL/ONCOLOGICAL Hx Human Immunodeficiency Virus (HIV): No - INTEGUMENTARY Hx Dermatological Problems: Yes - MUSCULOSKELETAL/RHEUMATOLOGICAL Hx Falls: No - GASTROINTESTINAL Hx Gastritis: Yes - GENITOURINARY/GYNECOLOGICAL Hx Genitourinary Disorders: Yes - PSYCHIATRIC Hx Depression: Yes Hx Substance Use: No - SURGICAL HISTORY Hx Appendectomy: Yes Hx Cholecystectomy: Yes - ANESTHESIA Hx Anesthesia: Yes Hx Anesthesia Reactions: No Hx Malignant Hyperthermia: No Meds Allergies/Adverse Reactions: Allergies Allergy/AdvReac Type Severity Reaction Status Date / Time cimetidine [From [facility]] Allergy RASH Verified 06/10/18 22:34 nickel Allergy RASH Verified 06/10/18 22:34 Penicillins Allergy RASH Verified 06/10/18 22:34 - Medications Medications: Current Medications Acetaminophen (Tylenol 325mg Tab) 650 mg PO Q6 PRN PRN Reason: Pain, Mild (1-3) Last Admin: 08/17/18 08:50 Dose: 650 mg Albuterol/Ipratropium (Duoneb 3 Mg/0.5 Mg (3 Ml) Ud) 3 ml IH RQID PRN PRN Reason: Shortness of Breath Camphor/Menthol (Bengay) 1 applic TOP Q6 PRN PRN Reason: Muscle spasm Last Admin: 08/19/18 12:12 Dose: 1 applic Docusate Sodium (Colace) 100 mg PO BID PRN PRN Reason: Constipation Gabapentin (Neurontin) 100 mg PO Q8 [facility] Last Admin: 08/19/18 09:36 Dose: Not Given Vancomycin HCl 1 gm/ Sodium (Chloride) 250 mls @ 166.667 mls/hr IVPB DAILY@2300 [facility]; Protocol Last Admin: 08/18/18 22:14 Dose: 166.667 mls/hr Meropenem 1 gm/ Sodium (Chloride) 100 mls @ 100 mls/hr IVPB Q8 [facility]; Protocol Last Admin: 08/19/18 09:16 Dose: 100 mls/hr Lidocaine (Lidoderm) 1 ea TD DAILY [facility] Last Admin: 08/19/18 09:30 Dose: 1 ea Lidocaine HCl (Xylocaine 2% (Uro-Jet)) 1 ea TOP ONCE [facility] Meclizine HCl (Antivert) 25 mg PO Q8 [facility] Last Admin: 08/19/18 09:36 Dose: Not Given Nystatin (Nystop Topical Powder) 1 applic TOP TID [facility] Last Admin: 08/19/18 12:04 Dose: 1 applic Ondansetron HCl (Zofran Inj) 4 mg IVP Q4 PRN PRN Reason: Nausea/Vomiting Last Admin: 08/19/18 04:36 Dose: 4 mg Pantoprazole Sodium (Protonix Inj) 40 mg IVP DAILY [facility] Last Admin: 08/19/18 08:30 Dose: 40 mg Physical Exam - Constitutional Appears: Non-toxic, No Acute Distress, Chronically Ill - Eye Exam Eye Exam: EOMI, Normal appearance Pupil Exam: PERRL - ENT Exam ENT Exam: Mucous Membranes Moist - Respiratory Exam Respiratory Exam: NORMAL BREATHING PATTERN - Cardiovascular Exam Cardiovascular Exam: REGULAR RHYTHM - GI/Abdominal Exam GI & Abdominal Exam: Distended, Hypoactive Bowel Sounds, Soft, Tenderness (diffuse). absent: Firm, Guarding, Hernia, Rebound, Rigid - Rectal Exam Rectal Exam: Deferred - Extremities Exam Extremities exam: Positive for: normal capillary refill, pedal pulses present. Negative for: calf tenderness Additional comments: left hemiparesis - Back Exam Back exam: absent: CVA tenderness (L), CVA tenderness (R) - Neurological Exam Neurological exam: Alert - Psychiatric Exam Psychiatric exam: Normal Affect, Normal Mood - Skin Skin Exam: Dry, Intact, Warm Results - Vital Signs Recent Vital Signs: Last Vital Signs Temp 98.7 F 08/19/18 08:35 Pulse 90 08/19/18 09:00 Resp 18 08/19/18 08:35 BP 111/70 08/19/18 08:35 Pulse Ox 96 08/19/18 08:35 - Labs Result Diagrams: 08/19/18 04:30 08/19/18 07:50 Labs: Laboratory Results - last 24 hr 08/18/18 08/19/18 08/19/18 13:16 04:30 07:50 WBC 13.8 H RBC 4.02 Hgb 11.7 L Hct 35.7 MCV 88.9 MCH 29.0 MCHC 32.7 L RDW 15.6 H Plt Count 385 Sodium 138 139 Potassium 3.3 L 3.5 L Chloride 104 103 Carbon Dioxide 22 24 Anion Gap 15 16 BUN 13 12 Creatinine 0.9 0.9 Est GFR ( Amer) > 60 > 60 Est GFR (Non-Af Amer) > 60 > 60 Random Glucose 89 78 Calcium 10.3 H 9.1 Assessment & Plan - Assessment and Plan (Free Text) Assessment: 52F with PMH of chemorads and multiple abdominal surgeries who presents with ESBL UTI, abdominal pain, and ileus Plan: -CLD -Pain control -Anti-emetics PRN -Keep K 4.0, Mg 2.0, phos 3.0 -Replete electrolytes as needed -Serial abd exams -Monitor for bowel function -f/u C.diff -Discussed with Dr. Amy Rodriguez PGY2 - Date & Time Date: 08/19/18 Time: 14:23 <Rashawn Reyes - Last Filed: 08/19/18 19:40> History of Present Illness - History of Present Illness History of Present Illness: Patient was seen and examined at the bedside. Agree with resident's note above. Meds - Medications Medications: Current Medications Acetaminophen (Tylenol 325mg Tab) 650 mg PO Q6 PRN PRN Reason: Pain, Mild (1-3) Last Admin: 08/17/18 08:50 Dose: 650 mg Albuterol/Ipratropium (Duoneb 3 Mg/0.5 Mg (3 Ml) Ud) 3 ml IH RQID PRN PRN Reason: Shortness of Breath Camphor/Menthol (Bengay) 1 applic TOP Q6 PRN PRN Reason: Muscle spasm Last Admin: 08/19/18 12:12 Dose: 1 applic Docusate Sodium (Colace) 100 mg PO BID PRN PRN Reason: Constipation Gabapentin (Neurontin) 100 mg PO Q8 [facility] Last Admin: 08/19/18 17:19 Dose: 100 mg Vancomycin HCl 1 gm/ Sodium (Chloride) 250 mls @ 166.667 mls/hr IVPB DAILY@2300 [facility]; Protocol Last Admin: 08/18/18 22:14 Dose: 166.667 mls/hr Meropenem 1 gm/ Sodium (Chloride) 100 mls @ 100 mls/hr IVPB Q8 [facility]; Protocol Last Admin: 08/19/18 17:18 Dose: 100 mls/hr Lidocaine (Lidoderm) 1 ea TD DAILY [facility] Last Admin: 08/19/18 09:30 Dose: 1 ea Lidocaine HCl (Xylocaine 2% (Uro-Jet)) 1 ea TOP ONCE [facility] Meclizine HCl (Antivert) 25 mg PO Q8 [facility] Last Admin: 08/19/18 17:19 Dose: 25 mg Nystatin (Nystop Topical Powder) 1 applic TOP TID [facility] Last Admin: 08/19/18 17:20 Dose: 1 applic Ondansetron HCl (Zofran Inj) 4 mg IVP Q4 PRN PRN Reason: Nausea/Vomiting Last Admin: 08/19/18 16:45 Dose: 4 mg Pantoprazole Sodium (Protonix Inj) 40 mg IVP DAILY [facility] Last Admin: 08/19/18 08:30 Dose: 40 mg Physical Exam - GI/Abdominal Exam Additional comments: soft, mildly tender to palpation, ND, hypoactive bowel sounds, no rebound, no guarding, well healed scars from prior surgeries Results - Vital Signs Recent Vital Signs: Last Vital Signs Temp 97.7 F 08/19/18 15:59 Pulse 107 H 08/19/18 15:59 Resp 20 08/19/18 15:59 BP 106/69 08/19/18 15:59 Pulse Ox 94 L 08/19/18 15:59 - Labs Result Diagrams: 08/19/18 04:30 08/19/18 07:50 Labs: Laboratory Results - last 24 hr 08/19/18 08/19/18 08/19/18 04:30 07:50 12:53 WBC 13.8 H RBC 4.02 Hgb 11.7 L Hct 35.7 MCV 88.9 MCH 29.0 MCHC 32.7 L RDW 15.6 H Plt Count 385 Sodium 139 Potassium 3.5 L Chloride 103 Carbon Dioxide 24 Anion Gap 16 BUN 12 Creatinine 0.9 Est GFR ( Amer) > 60 Est GFR (Non-Af Amer) > 60 Random Glucose 78 Calcium 9.1 Phosphorus 2.6 Magnesium 1.3 L C. difficile Ag & Toxin 08/19/18 16:22 WBC RBC Hgb Hct MCV MCH MCHC RDW Plt Count Sodium Potassium Chloride Carbon Dioxide Anion Gap BUN Creatinine Est GFR ( Amer) Est GFR (Non-Af Amer) Random Glucose Calcium Phosphorus Magnesium C. difficile Ag & Toxin Negative - Imaging and Cardiology CT scan - abdomen Status: Image reviewed by me, Report reviewed by me Assessment & Plan - Assessment and Plan (Free Text) Plan: - Repeat CT scan of the abdomen/pelvis with po contrast - repeat labs in am - Will follow
[2018-08-19] MEDS: Potassium Chloride 20 mEq/15 ml LIQ UD PO SCH ×2 (13:26→13:29)
[2018-08-19] MEDS: Potassium Chloride 20 mEq ER Tab PO SCH ×2 (14:51→16:16)
[2018-08-19] MEDS ORDERED: Iohexol 240 (50 ml) PO ONE (18:58)
[2018-08-19] MEDS: Potassium CL 10mEq/100ml 100 ML IVPB SCH ×2 (21:07→22:35)
[2018-08-19] MEDS ORDERED: Alum-Mag Hydrox-Simethicone Susp (30 mL) PO ONE (23:51)
[2018-08-20] MEDS: Meropenem 1 GM in Sodium Chloride 0.9% 100 ML IVPB SCH ×3 (01:17→16:43)
[2018-08-20 06:12] LABS: BASO # 0.1 K/uL (0.0-0.2); BASO % 0.4 % (0.0-2.0); EOS # 0.3 K/uL (0.0-0.7); EOS % 2.1 % (0.0-4.0); HEMOGLOBIN 12.1 g/dL (12.0-16.0); LYMPH # 1.2 K/uL (1.0-4.3); LYMPH % 8.8 % (20.0-40.0); MEAN CELL VOLUME 88.2 fl (81.0-99.0); MEAN CORPUSCULAR HEMOGLOBIN 29.3 pg (27.0-31.0); MEAN CORPUSCULAR HGB CONC 33.2 g/dL (33.0-37.0); MEAN PLATELET VOLUME 7.3 fl (7.2-11.7); MONO # 1.3 K/uL (0.0-0.8); MONO % 9.5 % (0.0-10.0); NEUT # 10.5 K/uL (1.8-7.0); NEUT % 79.2 % (50.0-75.0); PLATELET COUNT 417 K/uL (130-400); RBC 4.14 Mil/uL (3.80-5.20); RED CELL DISTRIBUTION WIDTH 15.7 % (11.5-14.5); WHITE BLOOD COUNT 13.2 K/uL (4.8-10.8)
[2018-08-20 06:34] LABS: BLOOD UREA NITROGEN 8 mg/dl (7-17); CALCIUM 8.2 mg/dL (8.4-10.2); GFR NON-AFRICAN AMERICAN > 60
[2018-08-20] MEDS: Lidocaine 5% Patch TD SCH (08:57)
[2018-08-20] MEDS: SILVASORB ANTIMICROBIAL WOUND GEL TP SCH (09:00)
[2018-08-20 10:09] LABS: BANDS 1 % (0-2); EOSINOPHIL 3 % (0-7); LYMPHOCYTE 10 % (20-50); METAMYELOCYTE 1 % (0-0); MONOCYTE 9 % (0-10); MYELOCYTE 2 % (0-0); NEUTROPHIL 74 % (42-75); TOTAL CELLS COUNTED 100
[2018-08-20 10:10] LABS: PLATELET ESTIMATE SLIGHTLY INCREASED (NORMAL)
[2018-08-20 10:11] LABS: ANISOCYTOSIS SLIGHT; TEARDROP CELLS SLIGHT
[2018-08-20 10:12] LABS: LARGE PLATELETS PRESENT; TOXIC GRANULATION PRESENT
--- NOTE | 2018-08-20 11:21 | RAD ---
Date of service: 08/19/2018 HISTORY: ileus COMPARISON: Comparison made with prior study 08/17/2018 TECHNIQUE: 1 view obtained. FINDINGS: BOWEL: No evidence of acute mechanical bowel obstruction... No free air. BONES: Normal. OTHER FINDINGS: In situ IVC filter IMPRESSION: No acute mechanical bowel obstruction..
--- NOTE | 2018-08-20 11:55 | CP.PCM.PN ---
Subjective - Date & Time of Evaluation Date of Evaluation: 08/20/18 Time of Evaluation: 11:30 - Subjective Subjective: Patient was seen and examined at the bedside. Passing flatus and had a large bowel movement today. Objective - Vital Signs/Intake and Output Vital Signs (last 24 hours): Temp Pulse Resp BP Pulse Ox 98.1 F 90 18 107/59 L 95 08/20/18 09:00 08/20/18 09:00 08/20/18 09:00 08/20/18 09:00 08/20/18 09:00 - Medications Medications: Current Medications Acetaminophen (Tylenol 325mg Tab) 650 mg PO Q6 PRN PRN Reason: Pain, Mild (1-3) Last Admin: 08/17/18 08:50 Dose: 650 mg Albuterol/Ipratropium (Duoneb 3 Mg/0.5 Mg (3 Ml) Ud) 3 ml IH RQID PRN PRN Reason: Shortness of Breath Camphor/Menthol (Bengay) 1 applic TOP Q6 PRN PRN Reason: Muscle spasm Last Admin: 08/19/18 12:12 Dose: 1 applic Docusate Sodium (Colace) 100 mg PO BID PRN PRN Reason: Constipation Gabapentin (Neurontin) 100 mg PO Q8 [facility] Last Admin: 08/20/18 08:59 Dose: 100 mg Vancomycin HCl 1 gm/ Sodium (Chloride) 250 mls @ 166.667 mls/hr IVPB DAILY@2300 [facility]; Protocol Last Admin: 08/19/18 23:00 Dose: 166.667 mls/hr Meropenem 1 gm/ Sodium (Chloride) 100 mls @ 100 mls/hr IVPB Q8 [facility]; Protocol Last Admin: 08/20/18 08:58 Dose: 100 mls/hr Lidocaine (Lidoderm) 1 ea TD DAILY [facility] Last Admin: 08/20/18 08:57 Dose: 1 ea Lidocaine HCl (Xylocaine 2% (Uro-Jet)) 1 ea TOP ONCE [facility] Meclizine HCl (Antivert) 25 mg PO Q8 [facility] Last Admin: 08/20/18 08:57 Dose: 25 mg Nystatin (Nystop Topical Powder) 1 applic TOP TID [facility] Last Admin: 08/20/18 09:00 Dose: 1 applic Ondansetron HCl (Zofran Inj) 4 mg IVP Q4 PRN PRN Reason: Nausea/Vomiting Last Admin: 08/19/18 21:16 Dose: 4 mg Pantoprazole Sodium (Protonix Inj) 40 mg IVP DAILY [facility] Last Admin: 08/20/18 08:59 Dose: 40 mg - Labs Labs: 08/20/18 04:25 08/20/18 04:25 PT 13.8 Seconds (9.8-13.1) H 08/14/18 23:53 INR 1.2 08/14/18 23:53 APTT 31.6 Seconds (25.6-37.1) 08/14/18 23:53 - Constitutional Appears: Well, Non-toxic, No Acute Distress - Head Exam Head Exam: ATRAUMATIC, NORMAL INSPECTION, NORMOCEPHALIC - ENT Exam ENT Exam: Mucous Membranes Moist, Normal Exam - Neck Exam Neck Exam: Normal Inspection - Cardiovascular Exam Cardiovascular Exam: REGULAR RHYTHM, +S1, +S2 - GI/Abdominal Exam GI & Abdominal Exam: Soft Additional comments: mildly tender on the left side of the abdomen, ND, BS hypoactive, no rebound, no guarding, well healed incisions from prior surgeries - Rectal Exam Rectal Exam: Deferred - Extremities Exam Extremities Exam: Normal Inspection - Neurological Exam Neurological Exam: Alert, Awake - Skin Skin Exam: Dry, Intact, Normal Color, Warm Assessment and Plan - Assessment and Plan (Free Text) Assessment: 52 y.o. female with enteritis and ? small bowel obstruction Plan: - Keep NPO - IV fluids - pain control - Continue antibiotics as per primary team - Abdominal X-ray this morning - Repeat labs in am - Will follow
[2018-08-20] MEDS: Potassium Ch 20mEq in D5-1/2NS 1,000 ML IV SCH ×2 (14:07→21:44)
--- NOTE | 2018-08-20 14:07 | CT ---
Date of service: 08/19/2018 PROCEDURE: CT abdomen pelvis HISTORY: Abdominal pain, evaluate ileus vs obstruction COMPARISON: Comparison made with prior CT scan abdomen pelvis 08/15/2018. TECHNIQUE: Contiguous axial images of the abdomen and pelvis performed without oral or intravenous contrast material. Additional 2D sagittal and coronal reformats generated. Radiation dose: Total exam DLP = 772.11 mGy-cm. This CT exam was performed using one or more of the following dose reduction techniques: Automated exposure control, adjustment of the mA and/or kV according to patient size, and/or use of iterative reconstruction technique. FINDINGS: Note that the examination is somewhat limited due to streak and beam hardening artifact arising from the upper extremities which have not been moved from the field of view. LOWER THORAX: Mild atelectasis both lung bases right greater than left. LIVER: Liver is mildly enlarged measuring nearly 20 cm in CC dimension. No obvious hepatic mass collection or calcification. Mild diffuse fatty hepatic infiltration. GALLBLADDER AND BILE DUCTS: Cholecystectomy PANCREAS: Is somewhat atrophic and fatty replaced. No obvious pancreatic mass collection or calcification. SPLEEN: Unremarkable. No splenomegaly. ADRENALS: No adrenal lesions KIDNEYS AND URETERS: Re demonstrated are bilateral renal calculi with bilateral proximal hydronephrosis right greater than left BLADDER: There is an in situ unclamped Overton balloon catheter within the lumen of the urinary bladder.. The urinary bladder is collapsed and thick-walled in appearance therefore difficult to evaluate. Small amount of air is present within the urinary bladder. REPRODUCTIVE: Additionally, there are layering calculi seen within the posterior dependent portion of the urinary bladder. Unremarkable. APPENDIX: Unremarkable. BOWEL: Evaluation of the bowel is limited due to the lack of oral contrast material. The stomach is partially distended with hyperdense liquid and debris as well as air. There is moderate to fairly significant distention of several proximal loops of small bowel in the left upper and mid abdomen increased in diameter compared to the prior study. However the remaining distal small bowel appears relatively collapsed.; Possibility of a localized ileus due to enteritis or or partial/intermittent small bowel obstruction to be considered.. Fluid is present throughout most of the colon. Findings may represent a enteritis/diarrheal illness PERITONEUM: Unremarkable. No fluid collection. No free air. Small fat containing umbilical hernia. LYMPH NODES: Unremarkable. No enlarged lymph nodes. VASCULATURE: Unremarkable. No aortic aneurysm. Minimal are aortic atherosclerotic calcification or mural plaque present. In situ IVC filter. BONES: Mild multilevel degenerative spondylosis of the lower thoracic and lumbar spine. Several fish-mouth endplate deformities seen in the lumbar region. Slight anterior subluxation L4 over L5 unchanged OTHER FINDINGS: None. IMPRESSION: There is moderate to fairly significant distention of several proximal loops of small bowel in the left upper and mid abdomen increased in diameter compared to the prior study. However the remaining distal small bowel appears relatively collapsed.; Possibility of a localized ileus due to enteritis or partial/intermittent small bowel obstruction to be considered.. Fluid is present throughout most of the colon. Findings may represent a enteritis/diarrheal illness Re demonstrated are bilateral renal calculi with bilateral proximal hydronephrosis right greater than left. Urinary bladder calculi. Small amount of air within the urinary bladder likely due to instrumentation with in situ unclamped Overton catheter.
--- NOTE | 2018-08-20 14:10 | CP.PCM.PN ---
Subjective - Date & Time of Evaluation Date of Evaluation: 08/20/18 Time of Evaluation: 08:00 - Subjective Subjective: chart reviewed patient examined ROS performed IV antibiotics renewed Objective - Vital Signs/Intake and Output Vital Signs (last 24 hours): Temp Pulse Resp BP Pulse Ox 98.2 F 86 18 114/81 99 08/20/18 13:00 08/20/18 13:00 08/20/18 13:00 08/20/18 13:00 08/20/18 12:20 - Medications Medications: Current Medications Acetaminophen (Tylenol 325mg Tab) 650 mg PO Q6 PRN PRN Reason: Pain, Mild (1-3) Last Admin: 08/17/18 08:50 Dose: 650 mg Albuterol/Ipratropium (Duoneb 3 Mg/0.5 Mg (3 Ml) Ud) 3 ml IH RQID PRN PRN Reason: Shortness of Breath Camphor/Menthol (Bengay) 1 applic TOP Q6 PRN PRN Reason: Muscle spasm Last Admin: 08/19/18 12:12 Dose: 1 applic Docusate Sodium (Colace) 100 mg PO BID PRN PRN Reason: Constipation Gabapentin (Neurontin) 100 mg PO Q8 [facility] Last Admin: 08/20/18 08:59 Dose: 100 mg Vancomycin HCl 1 gm/ Sodium (Chloride) 250 mls @ 166.667 mls/hr IVPB DAILY@2300 [facility]; Protocol Last Admin: 08/19/18 23:00 Dose: 166.667 mls/hr Meropenem 1 gm/ Sodium (Chloride) 100 mls @ 100 mls/hr IVPB Q8 [facility]; Protocol Last Admin: 08/20/18 08:58 Dose: 100 mls/hr Potassium Chloride/Dextrose/Sod Cl (Potassium Chl 20 Meq In D5-1/2ns) 1,000 mls @ 100 mls/hr IV .Q10H [facility] Stop: 08/21/18 11:59 Last Admin: 08/20/18 14:07 Dose: 100 mls/hr Lidocaine (Lidoderm) 1 ea TD DAILY [facility] Last Admin: 08/20/18 08:57 Dose: 1 ea Lidocaine HCl (Xylocaine 2% (Uro-Jet)) 1 ea TOP ONCE [facility] Meclizine HCl (Antivert) 25 mg PO Q8 [facility] Last Admin: 08/20/18 08:57 Dose: 25 mg Nystatin (Nystop Topical Powder) 1 applic TOP TID [facility] Last Admin: 08/20/18 14:07 Dose: 1 applic Ondansetron HCl (Zofran Inj) 4 mg IVP Q4 PRN PRN Reason: Nausea/Vomiting Last Admin: 08/19/18 21:16 Dose: 4 mg Pantoprazole Sodium (Protonix Inj) 40 mg IVP DAILY [facility] Last Admin: 08/20/18 08:59 Dose: 40 mg - Labs Labs: 08/20/18 04:25 08/20/18 04:25 PT 13.8 Seconds (9.8-13.1) H 08/14/18 23:53 INR 1.2 08/14/18 23:53 APTT 31.6 Seconds (25.6-37.1) 08/14/18 23:53 - Constitutional Appears: Non-toxic, No Acute Distress, Chronically Ill - Head Exam Head Exam: ATRAUMATIC, NORMAL INSPECTION, NORMOCEPHALIC - Eye Exam Eye Exam: EOMI, Normal appearance, PERRL Pupil Exam: NORMAL ACCOMODATION, PERRL - ENT Exam ENT Exam: Mucous Membranes Moist, Normal Exam - Neck Exam Neck Exam: Full ROM, Normal Inspection. absent: Lymphadenopathy - Respiratory Exam Respiratory Exam: Clear to Ausculation Bilateral, NORMAL BREATHING PATTERN - Cardiovascular Exam Cardiovascular Exam: REGULAR RHYTHM, +S1, +S2. absent: Murmur - GI/Abdominal Exam GI & Abdominal Exam: Soft, Normal Bowel Sounds. absent: Tenderness - Rectal Exam Rectal Exam: Deferred - Exam Exam: NORMAL INSPECTION - Extremities Exam Extremities Exam: Full ROM, Normal Capillary Refill, Normal Inspection. absent: Joint Swelling, Pedal Edema - Back Exam Back Exam: NORMAL INSPECTION - Neurological Exam Neurological Exam: Alert, Awake, CN II-XII Intact, Motor Sensory Deficit, Oriented x3. absent: Normal Gait, Reflexes Normal - Psychiatric Exam Psychiatric exam: Normal Affect, Normal Mood - Skin Skin Exam: Dry, Intact, Normal Color, Warm Assessment and Plan (1) Sepsis Status: Acute (2) Urinary tract infection Status: Acute (3) Acute renal failure (ARF) Status: Acute - Assessment and Plan (Free Text) Assessment: ESBL + on Mereem cont rx x 14 days
--- NOTE | 2018-08-20 14:13 | RAD ---
Date of service: 08/20/2018 HISTORY: abdominal pain COMPARISON: Comparison made with CT scan abdomen pelvis 08/19/2018 at 2324 hr. TECHNIQUE: 1 view obtained. FINDINGS: BOWEL: Distended proximal small bowel in the left abdomen is less well seen compared to high-resolution CT scan abdomen pelvis BONES: Normal. OTHER FINDINGS: Of multiple metallic clips again seen within the pelvis. Post cholecystectomy. In situ IVC filter. IMPRESSION: Distended proximal small bowel in the left abdomen is less well seen compared to high-resolution CT scan abdomen pelvis
--- NOTE | 2018-08-20 17:42 | CP.PCM.PN ---
Subjective - Date & Time of Evaluation Date of Evaluation: 08/18/18 Time of Evaluation: 11:00 - Subjective Subjective: Patient remains stable Noted to have Proteus on C and S of urine Objective - Vital Signs/Intake and Output Vital Signs (last 24 hours): Temp Pulse Resp BP Pulse Ox 98.5 F 122 H 20 115/77 92 L 08/20/18 15:52 08/20/18 15:52 08/20/18 15:52 08/20/18 15:52 08/20/18 15:52 - Medications Medications: Current Medications Acetaminophen (Tylenol 325mg Tab) 650 mg PO Q6 PRN PRN Reason: Pain, Mild (1-3) Last Admin: 08/17/18 08:50 Dose: 650 mg Albuterol/Ipratropium (Duoneb 3 Mg/0.5 Mg (3 Ml) Ud) 3 ml IH RQID PRN PRN Reason: Shortness of Breath Camphor/Menthol (Bengay) 1 applic TOP Q6 PRN PRN Reason: Muscle spasm Last Admin: 08/19/18 12:12 Dose: 1 applic Docusate Sodium (Colace) 100 mg PO BID PRN PRN Reason: Constipation Gabapentin (Neurontin) 100 mg PO Q8 [facility] Last Admin: 08/20/18 16:45 Dose: 100 mg Vancomycin HCl 1 gm/ Sodium (Chloride) 250 mls @ 166.667 mls/hr IVPB DAILY@2300 [facility]; Protocol Last Admin: 08/19/18 23:00 Dose: 166.667 mls/hr Meropenem 1 gm/ Sodium (Chloride) 100 mls @ 100 mls/hr IVPB Q8 [facility]; Protocol Last Admin: 08/20/18 16:43 Dose: Not Given Potassium Chloride/Dextrose/Sod Cl (Potassium Chl 20 Meq In D5-1/2ns) 1,000 mls @ 100 mls/hr IV .Q10H [facility] Stop: 08/21/18 11:59 Last Admin: 08/20/18 14:07 Dose: 100 mls/hr Lidocaine (Lidoderm) 1 ea TD DAILY [facility] Last Admin: 08/20/18 08:57 Dose: 1 ea Lidocaine HCl (Xylocaine 2% (Uro-Jet)) 1 ea TOP ONCE [facility] Meclizine HCl (Antivert) 25 mg PO Q8 [facility] Last Admin: 08/20/18 16:45 Dose: 25 mg Nystatin (Nystop Topical Powder) 1 applic TOP TID [facility] Last Admin: 08/20/18 16:45 Dose: 1 applic Ondansetron HCl (Zofran Inj) 4 mg IVP Q4 PRN PRN Reason: Nausea/Vomiting Last Admin: 08/19/18 21:16 Dose: 4 mg Pantoprazole Sodium (Protonix Inj) 40 mg IVP DAILY [facility] Last Admin: 08/20/18 08:59 Dose: 40 mg - Labs Labs: 08/20/18 04:25 08/20/18 04:25 PT 13.8 Seconds (9.8-13.1) H 08/14/18 23:53 INR 1.2 08/14/18 23:53 APTT 31.6 Seconds (25.6-37.1) 08/14/18 23:53 Assessment and Plan (1) Sepsis Status: Acute (2) Urinary tract infection Status: Acute (3) Renal insufficiency Status: Acute (4) Status post CVA Status: Acute
--- NOTE | 2018-08-21 00:16 | CP.PCM.PN ---
Subjective - Date & Time of Evaluation Date of Evaluation: 08/19/18 Time of Evaluation: 15:00 - Subjective Subjective: Pt seen and assessed at bedside. Reports new onset abdominal pain that comes and goes. Otherwise no other complaints. Latest WBC count was 13.8; pt afebrile. Subjective Review of Systems: Reviewed and no additional remarkable complaints except diffuse abdominal pain. Objective Vital Signs Stable Appears: Non-toxic, No Acute Distress. Head Exam: NORMAL INSPECTION, normocephalic. Eye Exam: Normal appearance, EOMI, PERRLA. Respiratory Exam: NORMAL BREATHING PATTERN, breath sounds clear to auscultation. Cardiovascular Exam: +S1, +S2. RRR GI & Abdominal Exam: Hypoactive bowel sounds, mildly distended, diffuse tenderness on light palpation. Neurological Exam: Alert, Awake, Oriented x3. Psychiatric exam: Normal Affect, Normal Mood Skin Exam: Pale, Warm, Dry. Assessment/Impression/Plan: 1.) UTI/Urosepsis -Continue IV Antibiotics (Currently on Vanco and Merrem). -Infectious disease consult appreciated. -Abdominal X-ray reviewed; revealed possible ileus. Pending Repeat Abdominal X- ray results. -Surgery consult added; Pt will be held NPO until evaluated by surgery. Objective - Vital Signs/Intake and Output Vital Signs (last 24 hours): Temp Pulse Resp BP Pulse Ox 98.5 F 109 H 20 116/70 95 08/20/18 21:19 08/20/18 21:19 08/20/18 21:19 08/20/18 21:19 08/20/18 21:19 Intake and Output: 08/20/18 08/21/18 18:59 06:59 Intake Total 610 Output Total 1200 Balance -590 - Medications Medications: Current Medications Acetaminophen (Tylenol 325mg Tab) 650 mg PO Q6 PRN PRN Reason: Pain, Mild (1-3) Last Admin: 08/20/18 23:47 Dose: 650 mg Albuterol/Ipratropium (Duoneb 3 Mg/0.5 Mg (3 Ml) Ud) 3 ml IH RQID PRN PRN Reason: Shortness of Breath Camphor/Menthol (Bengay) 1 applic TOP Q6 PRN PRN Reason: Muscle spasm Last Admin: 08/19/18 12:12 Dose: 1 applic Docusate Sodium (Colace) 100 mg PO BID PRN PRN Reason: Constipation Gabapentin (Neurontin) 100 mg PO Q8 [facility] Last Admin: 08/20/18 16:45 Dose: 100 mg Meropenem 1 gm/ Sodium (Chloride) 100 mls @ 100 mls/hr IVPB Q8 [facility]; Protocol Last Admin: 08/20/18 16:43 Dose: Not Given Potassium Chloride/Dextrose/Sod Cl (Potassium Chl 20 Meq In D5-1/2ns) 1,000 mls @ 100 mls/hr IV .Q10H [facility] Stop: 08/21/18 11:59 Last Admin: 08/20/18 21:44 Dose: Not Given Lidocaine (Lidoderm) 1 ea TD DAILY [facility] Last Admin: 08/20/18 08:57 Dose: 1 ea Lidocaine HCl (Xylocaine 2% (Uro-Jet)) 1 ea TOP ONCE [facility] Meclizine HCl (Antivert) 25 mg PO Q8 [facility] Last Admin: 08/20/18 16:45 Dose: 25 mg Nystatin (Nystop Topical Powder) 1 applic TOP TID [facility] Last Admin: 08/20/18 16:45 Dose: 1 applic Ondansetron HCl (Zofran Inj) 4 mg IVP Q4 PRN PRN Reason: Nausea/Vomiting Last Admin: 08/19/18 21:16 Dose: 4 mg Pantoprazole Sodium (Protonix Inj) 40 mg IVP DAILY [facility] Last Admin: 08/20/18 08:59 Dose: 40 mg - Labs Labs: 08/20/18 04:25 08/20/18 04:25 PT 13.8 Seconds (9.8-13.1) H 08/14/18 23:53 INR 1.2 08/14/18 23:53 APTT 31.6 Seconds (25.6-37.1) 08/14/18 23:53 Assessment and Plan (1) UTI (urinary tract infection) Status: Acute (2) Leukocytosis Status: Acute (3) Abdominal pain Status: Acute
[2018-08-21] MEDS: Meropenem 1 GM in Sodium Chloride 0.9% 100 ML IVPB SCH ×3 (00:20→16:07)
--- NOTE | 2018-08-21 00:25 | CP.PCM.PN ---
Subjective - Date & Time of Evaluation Date of Evaluation: 08/20/18 Time of Evaluation: 15:00 - Subjective Subjective: Pt seen and assessed at bedside. C/o intermittent abdominal pain. Further abdominal studies revealed the possibility of ileus due to enteritis. Pt has experienced persistent hypokalemia this admission; she received a total of 20 mEq of potassium overnight. Subjective Review of Systems: Reviewed and no additional remarkable complaints except diffuse abdominal pain. Objective Vital Signs Stable Appears: Non-toxic, No Acute Distress. Head Exam: NORMAL INSPECTION, normocephalic. Eye Exam: Normal appearance, EOMI, PERRLA. Respiratory Exam: NORMAL BREATHING PATTERN, breath sounds clear to auscultation. Cardiovascular Exam: +S1, +S2. RRR GI & Abdominal Exam: Hypoactive bowel sounds, mildly distended, diffuse tenderness on light palpation. Neurological Exam: Alert, Awake, Oriented x3. Psychiatric exam: Normal Affect, Normal Mood Skin Exam: Pale, Warm, Dry. Assessment/Impression/Plan: 1.) UTI/Urosepsis/Abdominal pain -Continue IV Antibiotics (Currently on Vanco and Merrem). Pt to receive antibiotics for a total of 14 days. -All consults input appreciated. -Clear liquids for the time being; assess bowel function. -Potassium replacement done through a total of 20 mEq IV K+ given. -C-Diff is negative. -Serial abdominal studies. Objective - Vital Signs/Intake and Output Vital Signs (last 24 hours): Temp Pulse Resp BP Pulse Ox 98.5 F 109 H 20 116/70 95 08/20/18 21:19 08/20/18 21:19 08/20/18 21:19 08/20/18 21:19 08/20/18 21:19 Intake and Output: 08/20/18 08/21/18 18:59 06:59 Intake Total 610 Output Total 1200 Balance -590 - Medications Medications: Current Medications Acetaminophen (Tylenol 325mg Tab) 650 mg PO Q6 PRN PRN Reason: Pain, Mild (1-3) Last Admin: 08/20/18 23:47 Dose: 650 mg Albuterol/Ipratropium (Duoneb 3 Mg/0.5 Mg (3 Ml) Ud) 3 ml IH RQID PRN PRN Reason: Shortness of Breath Camphor/Menthol (Bengay) 1 applic TOP Q6 PRN PRN Reason: Muscle spasm Last Admin: 08/19/18 12:12 Dose: 1 applic Docusate Sodium (Colace) 100 mg PO BID PRN PRN Reason: Constipation Gabapentin (Neurontin) 100 mg PO Q8 [facility] Last Admin: 08/21/18 00:20 Dose: 100 mg Meropenem 1 gm/ Sodium (Chloride) 100 mls @ 100 mls/hr IVPB Q8 [facility]; Protocol Last Admin: 08/21/18 00:20 Dose: Not Given Potassium Chloride/Dextrose/Sod Cl (Potassium Chl 20 Meq In D5-1/2ns) 1,000 mls @ 100 mls/hr IV .Q10H [facility] Stop: 08/21/18 11:59 Last Admin: 08/20/18 21:44 Dose: Not Given Lidocaine (Lidoderm) 1 ea TD DAILY [facility] Last Admin: 08/20/18 08:57 Dose: 1 ea Lidocaine HCl (Xylocaine 2% (Uro-Jet)) 1 ea TOP ONCE [facility] Meclizine HCl (Antivert) 25 mg PO Q8 [facility] Last Admin: 08/21/18 00:19 Dose: 25 mg Nystatin (Nystop Topical Powder) 1 applic TOP TID [facility] Last Admin: 08/20/18 16:45 Dose: 1 applic Ondansetron HCl (Zofran Inj) 4 mg IVP Q4 PRN PRN Reason: Nausea/Vomiting Last Admin: 08/19/18 21:16 Dose: 4 mg Pantoprazole Sodium (Protonix Inj) 40 mg IVP DAILY [facility] Last Admin: 08/20/18 08:59 Dose: 40 mg - Labs Labs: 08/20/18 04:25 08/20/18 04:25 PT 13.8 Seconds (9.8-13.1) H 08/14/18 23:53 INR 1.2 08/14/18 23:53 APTT 31.6 Seconds (25.6-37.1) 08/14/18 23:53 Assessment and Plan (1) UTI (urinary tract infection) Status: Acute (2) Leukocytosis Status: Acute (3) Abdominal pain Status: Acute
[2018-08-21] MEDS: Menthol/Methyl Salicylate Oinment TOP PRN (02:22)
[2018-08-21 05:47] LABS: BASO # 0.1 K/uL (0.0-0.2); BASO % 0.4 % (0.0-2.0); EOS # 0.3 K/uL (0.0-0.7); EOS % 2.5 % (0.0-4.0); HEMOGLOBIN 13.1 g/dL (12.0-16.0); LYMPH # 1.2 K/uL (1.0-4.3); LYMPH % 9.5 % (20.0-40.0); MEAN CELL VOLUME 87.8 fl (81.0-99.0); MEAN PLATELET VOLUME 7.3 fl (7.2-11.7); MONO # 1.4 K/uL (0.0-0.8); MONO % 10.5 % (0.0-10.0); NEUT % 77.1 % (50.0-75.0); NRBC % 0.1 % (0.0-0.0); RBC 4.51 Mil/uL (3.80-5.20); RED CELL DISTRIBUTION WIDTH 15.8 % (11.5-14.5); WHITE BLOOD COUNT 12.9 K/uL (4.8-10.8)
[2018-08-21 06:05] LABS: ALB/GLOB RATIO 0.9 (1.0-2.1); ALBUMIN 3.8 g/dL (3.5-5.0); ALT/SGPT 20 U/L (9-52); AST/SGOT 24 U/L (14-36); BLOOD UREA NITROGEN 9 mg/dl (7-17); CALCIUM 9.5 mg/dL (8.4-10.2); GFR NON-AFRICAN AMERICAN > 60
[2018-08-21] MEDS: SILVASORB ANTIMICROBIAL WOUND GEL TP SCH (09:00)
[2018-08-21] MEDS: Potassium CL 10mEq/100ml 100 ML IVPB SCH ×4 (09:59→13:00)
[2018-08-21] MEDS: Potassium Ch 20mEq in D5-1/2NS 1,000 ML IV SCH (09:59)
[2018-08-21] MEDS: Lidocaine 5% Patch TD SCH (10:02)
--- NOTE | 2018-08-21 10:24 | CP.PCM.PN ---
<Luther Rodriguez - Last Filed: 08/21/18 10:31> Subjective - Date & Time of Evaluation Date of Evaluation: 08/21/18 Time of Evaluation: 10:19 - Subjective Subjective: General Surgery note for Dr. Reyes Patient seen and examined at bedside. No acute event overnight. Patient reports pain has improved. She denies nausea/vomiting. She is passing gas and having BM. She has had problem with her IV access and hasn't received antibiotics for 1 day. Objective - Vital Signs/Intake and Output Vital Signs (last 24 hours): Temp Pulse Resp BP Pulse Ox 97.2 F L 87 20 107/77 94 L 08/21/18 08:00 08/21/18 08:00 08/21/18 08:00 08/21/18 08:00 08/21/18 08:00 - Medications Medications: Current Medications Acetaminophen (Tylenol 325mg Tab) 650 mg PO Q6 PRN PRN Reason: Pain, Mild (1-3) Last Admin: 08/20/18 23:47 Dose: 650 mg Albuterol/Ipratropium (Duoneb 3 Mg/0.5 Mg (3 Ml) Ud) 3 ml IH RQID PRN PRN Reason: Shortness of Breath Camphor/Menthol (Bengay) 1 applic TOP Q6 PRN PRN Reason: Muscle spasm Last Admin: 08/21/18 02:22 Dose: 1 applic Docusate Sodium (Colace) 100 mg PO BID PRN PRN Reason: Constipation Gabapentin (Neurontin) 100 mg PO Q8 [facility] Last Admin: 08/21/18 09:58 Dose: Not Given Meropenem 1 gm/ Sodium (Chloride) 100 mls @ 100 mls/hr IVPB Q8 [facility]; Protocol Last Admin: 08/21/18 09:58 Dose: Not Given Potassium Chloride/Dextrose/Sod Cl (Potassium Chl 20 Meq In D5-1/2ns) 1,000 mls @ 100 mls/hr IV .Q10H [facility] Stop: 08/21/18 11:59 Last Admin: 08/21/18 09:59 Dose: Not Given Potassium Chloride (Potassium Chloride 10 Meq/100 Ml) 100 mls @ 100 mls/hr IVPB Q1 [facility] Stop: 08/21/18 13:59 Last Admin: 03/25/19 09:59 Dose: Not Given Lidocaine (Lidoderm) 1 ea TD DAILY [facility] Last Admin: 08/21/18 10:02 Dose: 1 ea Lidocaine HCl (Xylocaine 2% (Uro-Jet)) 1 ea TOP ONCE [facility] Meclizine HCl (Antivert) 25 mg PO Q8 [facility] Last Admin: 08/21/18 09:57 Dose: Not Given Nystatin (Nystop Topical Powder) 1 applic TOP TID [facility] Last Admin: 08/21/18 09:58 Dose: 1 applic Ondansetron HCl (Zofran Inj) 4 mg IVP Q4 PRN PRN Reason: Nausea/Vomiting Last Admin: 08/19/18 21:16 Dose: 4 mg Pantoprazole Sodium (Protonix Inj) 40 mg IVP DAILY [facility] Last Admin: 08/21/18 10:00 Dose: Not Given - Labs Labs: 08/21/18 05:25 08/21/18 05:25 PT 13.8 Seconds (9.8-13.1) H 08/14/18 23:53 INR 1.2 08/14/18 23:53 APTT 31.6 Seconds (25.6-37.1) 08/14/18 23:53 - Constitutional Appears: Toxic, No Acute Distress - Head Exam Head Exam: ATRAUMATIC, NORMOCEPHALIC - Eye Exam Eye Exam: EOMI - ENT Exam ENT Exam: Mucous Membranes Moist - Respiratory Exam Respiratory Exam: NORMAL BREATHING PATTERN - Cardiovascular Exam Cardiovascular Exam: REGULAR RHYTHM - GI/Abdominal Exam GI & Abdominal Exam: Soft, Normal Bowel Sounds. absent: Distended, Firm, Guarding, Rigid, Tenderness, Hernia, Mass, Rebound - Extremities Exam Extremities Exam: Normal Capillary Refill - Neurological Exam Neurological Exam: Alert, Awake - Psychiatric Exam Psychiatric exam: Normal Affect, Normal Mood - Skin Skin Exam: Dry, Intact, Warm Assessment and Plan - Assessment and Plan (Free Text) Assessment: 52 F with resolved ileus Plan: -CLD -Continue IV abx for UTI -Monitor bowel function -Medical management as per primary -Discussed with Dr. Amy Rodriguez PGY2 <Rashawn Reyes - Last Filed: 08/21/18 10:36> Subjective - Subjective Subjective: Patient was seen and examined at the bedside. Agree with resident's note above. Objective - Vital Signs/Intake and Output Vital Signs (last 24 hours): Temp Pulse Resp BP Pulse Ox 97.2 F L 87 20 107/77 94 L 08/21/18 08:00 08/21/18 08:00 08/21/18 08:00 08/21/18 08:00 08/21/18 08:00 - Medications Medications: Current Medications Acetaminophen (Tylenol 325mg Tab) 650 mg PO Q6 PRN PRN Reason: Pain, Mild (1-3) Last Admin: 08/20/18 23:47 Dose: 650 mg Albuterol/Ipratropium (Duoneb 3 Mg/0.5 Mg (3 Ml) Ud) 3 ml IH RQID PRN PRN Reason: Shortness of Breath Camphor/Menthol (Bengay) 1 applic TOP Q6 PRN PRN Reason: Muscle spasm Last Admin: 08/21/18 02:22 Dose: 1 applic Docusate Sodium (Colace) 100 mg PO BID PRN PRN Reason: Constipation Gabapentin (Neurontin) 100 mg PO Q8 [facility] Last Admin: 08/21/18 09:58 Dose: Not Given Meropenem 1 gm/ Sodium (Chloride) 100 mls @ 100 mls/hr IVPB Q8 [facility]; Protocol Last Admin: 08/21/18 09:58 Dose: Not Given Potassium Chloride/Dextrose/Sod Cl (Potassium Chl 20 Meq In D5-1/2ns) 1,000 mls @ 100 mls/hr IV .Q10H [facility] Stop: 08/21/18 11:59 Last Admin: 08/21/18 09:59 Dose: Not Given Potassium Chloride (Potassium Chloride 10 Meq/100 Ml) 100 mls @ 100 mls/hr IVPB Q1 [facility] Stop: 08/21/18 13:59 Last Admin: 08/21/18 09:59 Dose: Not Given Lidocaine (Lidoderm) 1 ea TD DAILY [facility] Last Admin: 08/21/18 10:02 Dose: 1 ea Lidocaine HCl (Xylocaine 2% (Uro-Jet)) 1 ea TOP ONCE [facility] Meclizine HCl (Antivert) 25 mg PO Q8 [facility] Last Admin: 08/21/18 09:57 Dose: Not Given Nystatin (Nystop Topical Powder) 1 applic TOP TID [facility] Last Admin: 08/21/18 09:58 Dose: 1 applic Ondansetron HCl (Zofran Inj) 4 mg IVP Q4 PRN PRN Reason: Nausea/Vomiting Last Admin: 08/19/18 21:16 Dose: 4 mg Pantoprazole Sodium (Protonix Inj) 40 mg IVP DAILY [facility] Last Admin: 08/21/18 10:00 Dose: Not Given - Labs Labs: 08/21/18 05:25 08/21/18 05:25 PT 13.8 Seconds (9.8-13.1) H 08/14/18 23:53 INR 1.2 08/14/18 23:53 APTT 31.6 Seconds (25.6-37.1) 08/14/18 23:53 - GI/Abdominal Exam Additional comments: soft, NT, ND, BS+, no rebound, no guarding, well healed scars from prior surgeries Assessment and Plan - Assessment and Plan (Free Text) Plan: - No general surgery intervention at present time - Continue care as per medical team - Repeat labs in am - Will follow
--- NOTE | 2018-08-21 11:06 | CP.PCM.PN ---
Subjective - Date & Time of Evaluation Date of Evaluation: 08/21/18 Time of Evaluation: 07:00 - Subjective Subjective: more alert weak / bedridden Objective - Vital Signs/Intake and Output Vital Signs (last 24 hours): Temp Pulse Resp BP Pulse Ox 97.2 F L 87 20 107/77 94 L 08/21/18 08:00 08/21/18 08:00 08/21/18 08:00 08/21/18 08:00 08/21/18 08:00 - Medications Medications: Current Medications Acetaminophen (Tylenol 325mg Tab) 650 mg PO Q6 PRN PRN Reason: Pain, Mild (1-3) Last Admin: 08/20/18 23:47 Dose: 650 mg Albuterol/Ipratropium (Duoneb 3 Mg/0.5 Mg (3 Ml) Ud) 3 ml IH RQID PRN PRN Reason: Shortness of Breath Camphor/Menthol (Bengay) 1 applic TOP Q6 PRN PRN Reason: Muscle spasm Last Admin: 08/21/18 02:22 Dose: 1 applic Docusate Sodium (Colace) 100 mg PO BID PRN PRN Reason: Constipation Gabapentin (Neurontin) 100 mg PO Q8 [facility] Last Admin: 08/21/18 09:58 Dose: Not Given Meropenem 1 gm/ Sodium (Chloride) 100 mls @ 100 mls/hr IVPB Q8 [facility]; Protocol Last Admin: 08/21/18 09:58 Dose: Not Given Potassium Chloride/Dextrose/Sod Cl (Potassium Chl 20 Meq In D5-1/2ns) 1,000 mls @ 100 mls/hr IV .Q10H [facility] Stop: 08/21/18 11:59 Last Admin: 08/21/18 09:59 Dose: Not Given Potassium Chloride (Potassium Chloride 10 Meq/100 Ml) 100 mls @ 100 mls/hr IVPB Q1 [facility] Stop: 08/21/18 13:59 Last Admin: 08/21/18 09:59 Dose: Not Given Lidocaine (Lidoderm) 1 ea TD DAILY [facility] Last Admin: 08/21/18 10:02 Dose: 1 ea Lidocaine HCl (Xylocaine 2% (Uro-Jet)) 1 ea TOP ONCE [facility] Meclizine HCl (Antivert) 25 mg PO Q8 [facility] Last Admin: 08/21/18 09:57 Dose: Not Given Nystatin (Nystop Topical Powder) 1 applic TOP TID [facility] Last Admin: 08/21/18 09:58 Dose: 1 applic Ondansetron HCl (Zofran Inj) 4 mg IVP Q4 PRN PRN Reason: Nausea/Vomiting Last Admin: 08/19/18 21:16 Dose: 4 mg Pantoprazole Sodium (Protonix Inj) 40 mg IVP DAILY [facility] Last Admin: 08/21/18 10:00 Dose: Not Given - Labs Labs: 08/21/18 05:25 08/21/18 05:25 PT 13.8 Seconds (9.8-13.1) H 08/14/18 23:53 INR 1.2 08/14/18 23:53 APTT 31.6 Seconds (25.6-37.1) 08/14/18 23:53 - Constitutional Appears: Chronically Ill - Head Exam Head Exam: NORMOCEPHALIC - Eye Exam Pupil Exam: NORMAL ACCOMODATION - ENT Exam ENT Exam: Mucous Membranes Dry - Neck Exam Neck Exam: absent: Lymphadenopathy - Respiratory Exam Respiratory Exam: Decreased Breath Sounds - Cardiovascular Exam Cardiovascular Exam: REGULAR RHYTHM - GI/Abdominal Exam GI & Abdominal Exam: Distended, Soft - Exam Exam: NORMAL INSPECTION - Extremities Exam Extremities Exam: absent: Pedal Edema - Back Exam Back Exam: absent: CVA tenderness (L), CVA tenderness (R) Assessment and Plan (1) Sepsis Status: Acute (2) Urinary tract infection Status: Acute (3) Acute renal failure (ARF) Status: Acute
[2018-08-21] MEDS ORDERED: Potassium Chloride 20 mEq ER Tab PO ONE ×2 (14:27→14:47)
[2018-08-21] MEDS ORDERED: Oxycodone/Acetaminophen 5/325 mg Tab PO ONE (14:27)
--- NOTE | 2018-08-21 19:43 | CP.PCM.PN ---
Subjective - Date & Time of Evaluation Date of Evaluation: 08/21/18 Time of Evaluation: 10:00 - Subjective Subjective: patient seen and examined at bedside. Interim events noted no complaints offered at this time denies cp/sob/fever/chills. available diagnostic data reviewed Review of Systems All systems: reviewed and no additional remarkable complaints except mentioned above Objective Vital Signs Stable - Constitutional Appears: Non-toxic, No Acute Distress Head Exam: NORMAL INSPECTION Eye Exam: Normal appearance Respiratory Exam: NORMAL BREATHING PATTERN Cardiovascular Exam: +S1, +S2 GI & Abdominal Exam: Soft Neurological Exam: Alert, Awake Psychiatric exam: Normal Affect, Normal Mood Skin Exam: Normal Color, Warm Assessment and Plan monitor vitals monitor labs Cont meds Cont tx consultants appreciated input WBC remains elevated though improving c/w IV abx Merrem replace potassium rest of plan as ordered Objective - Vital Signs/Intake and Output Vital Signs (last 24 hours): Temp Pulse Resp BP Pulse Ox 98.4 F 93 H 20 109/76 95 08/21/18 17:00 08/21/18 17:00 08/21/18 17:00 08/21/18 17:00 08/21/18 17:00 - Medications Medications: Current Medications Acetaminophen (Tylenol 325mg Tab) 650 mg PO Q6 PRN PRN Reason: Pain, Mild (1-3) Last Admin: 08/20/18 23:47 Dose: 650 mg Albuterol/Ipratropium (Duoneb 3 Mg/0.5 Mg (3 Ml) Ud) 3 ml IH RQID PRN PRN Reason: Shortness of Breath Camphor/Menthol (Bengay) 1 applic TOP Q6 PRN PRN Reason: Muscle spasm Last Admin: 08/21/18 02:22 Dose: 1 applic Docusate Sodium (Colace) 100 mg PO BID PRN PRN Reason: Constipation Gabapentin (Neurontin) 100 mg PO Q8 [facility] Last Admin: 08/21/18 16:06 Dose: 100 mg Meropenem 1 gm/ Sodium (Chloride) 100 mls @ 100 mls/hr IVPB Q8 [facility]; Protocol Last Admin: 08/21/18 16:07 Dose: 100 mls/hr Lidocaine (Lidoderm) 1 ea TD DAILY [facility] Last Admin: 08/21/18 10:02 Dose: 1 ea Lidocaine HCl (Xylocaine 2% (Uro-Jet)) 1 ea TOP ONCE [facility] Meclizine HCl (Antivert) 25 mg PO Q8 [facility] Last Admin: 08/21/18 18:17 Dose: 25 mg Nystatin (Nystop Topical Powder) 1 applic TOP TID [facility] Last Admin: 08/21/18 16:07 Dose: 1 applic Ondansetron HCl (Zofran Inj) 4 mg IVP Q4 PRN PRN Reason: Nausea/Vomiting Last Admin: 08/19/18 21:16 Dose: 4 mg Pantoprazole Sodium (Protonix Inj) 40 mg IVP DAILY [facility] Last Admin: 08/21/18 15:09 Dose: 40 mg Tramadol HCl (Ultram) 50 mg PO Q6 PRN PRN Reason: Pain, severe (8-10) Last Admin: 08/21/18 14:54 Dose: 50 mg - Labs Labs: 08/21/18 05:25 08/21/18 05:25 PT 13.8 Seconds (9.8-13.1) H 08/14/18 23:53 INR 1.2 08/14/18 23:53 APTT 31.6 Seconds (25.6-37.1) 08/14/18 23:53 Assessment and Plan (1) Sepsis Status: Acute (2) Status post CVA Status: Acute (3) Urinary tract infection Status: Acute (4) Hypokalemia Status: Acute
[2018-08-21] MEDS ORDERED: Alum-Mag Hydrox-Simethicone Susp (30 mL) PO ONE (23:45)
[2018-08-22] MEDS: Meropenem 1 GM in Sodium Chloride 0.9% 100 ML IVPB SCH ×3 (00:10→17:58)
[2018-08-22 06:10] LABS: BLOOD UREA NITROGEN 11 mg/dl (7-17); CALCIUM 9.8 mg/dL (8.4-10.2); GFR NON-AFRICAN AMERICAN > 60
--- NOTE | 2018-08-22 07:57 | CP.PCM.PN ---
<Luther Rodriguez - Last Filed: 08/22/18 08:45> Subjective - Date & Time of Evaluation Date of Evaluation: 08/22/18 Time of Evaluation: 07:30 - Subjective Subjective: General Surgery note for Dr. Reyes Patient seen and examined at bedside. No acute event overnight. Patient reports pain present this morning. She denies nausea/vomiting. She is passing gas and having BMs still. Denies fever/chills when asked. Patient also asking for pain medication. Objective - Vital Signs/Intake and Output Vital Signs (last 24 hours): Temp Pulse Resp BP Pulse Ox 97.5 F L 94 H 18 118/82 93 L 08/22/18 07:46 08/22/18 07:46 08/22/18 07:46 08/22/18 07:46 08/22/18 07:46 - Medications Medications: Current Medications Acetaminophen (Tylenol 325mg Tab) 650 mg PO Q6 PRN PRN Reason: Pain, Mild (1-3) Last Admin: 08/20/18 23:47 Dose: 650 mg Albuterol/Ipratropium (Duoneb 3 Mg/0.5 Mg (3 Ml) Ud) 3 ml IH RQID PRN PRN Reason: Shortness of Breath Camphor/Menthol (Bengay) 1 applic TOP Q6 PRN PRN Reason: Muscle spasm Last Admin: 08/21/18 02:22 Dose: 1 applic Docusate Sodium (Colace) 100 mg PO BID PRN PRN Reason: Constipation Gabapentin (Neurontin) 100 mg PO Q8 [facility] Last Admin: 08/22/18 00:01 Dose: 100 mg Meropenem 1 gm/ Sodium (Chloride) 100 mls @ 100 mls/hr IVPB Q8 [facility]; Protocol Last Admin: 08/22/18 00:10 Dose: 100 mls/hr Lidocaine (Lidoderm) 1 ea TD DAILY [facility] Last Admin: 08/21/18 10:02 Dose: 1 ea Lidocaine HCl (Xylocaine 2% (Uro-Jet)) 1 ea TOP ONCE [facility] Meclizine HCl (Antivert) 25 mg PO Q8 [facility] Last Admin: 08/22/18 00:01 Dose: 25 mg Nystatin (Nystop Topical Powder) 1 applic TOP TID [facility] Last Admin: 08/21/18 16:07 Dose: 1 applic Ondansetron HCl (Zofran Inj) 4 mg IVP Q4 PRN PRN Reason: Nausea/Vomiting Last Admin: 08/19/18 21:16 Dose: 4 mg Pantoprazole Sodium (Protonix Inj) 40 mg IVP DAILY [facility] Last Admin: 08/21/18 15:09 Dose: 40 mg Tramadol HCl (Ultram) 50 mg PO Q6 PRN PRN Reason: Pain, severe (8-10) Last Admin: 08/22/18 06:43 Dose: 50 mg - Labs Labs: 08/21/18 05:25 08/22/18 05:00 PT 13.8 Seconds (9.8-13.1) H 08/14/18 23:53 INR 1.2 08/14/18 23:53 APTT 31.6 Seconds (25.6-37.1) 08/14/18 23:53 - Additional Findings Additional findings: - Constitutional Appears: No Acute Distress - Head Exam Head Exam: ATRAUMATIC, NORMOCEPHALIC - Eye Exam Eye Exam: EOMI - ENT Exam ENT Exam: Mucous Membranes Moist - Respiratory Exam Respiratory Exam: NORMAL BREATHING PATTERN - Cardiovascular Exam Cardiovascular Exam: REGULAR RHYTHM - GI/Abdominal Exam GI & Abdominal Exam: Soft, Normal Bowel Sounds. absent: Distended, Firm, Guarding, Rigid, Tenderness, Hernia, Mass, Rebound - Extremities Exam Extremities Exam: Normal Capillary Refill - Neurological Exam Neurological Exam: Alert, Awake - Psychiatric Exam Psychiatric exam: Normal Affect, Normal Mood - Skin Skin Exam: Dry, Intact, Warm Assessment and Plan - Assessment and Plan (Free Text) Assessment: 52 F with resolved ileus Plan: -CLD, ADAT -Continue IV abx -Monitor bowel function -Pain control -Medical management as per primary -Discussed with Dr. Amy Rodriguez PGY2 <Sohail Worthington - Last Filed: 08/22/18 11:19> Objective - Vital Signs/Intake and Output Vital Signs (last 24 hours): Temp Pulse Resp BP Pulse Ox 97.5 F L 94 H 18 118/82 93 L 08/22/18 07:46 08/22/18 07:46 08/22/18 07:46 08/22/18 07:46 08/22/18 07:46 - Medications Medications: Current Medications Acetaminophen (Tylenol 325mg Tab) 650 mg PO Q6 PRN PRN Reason: Pain, Mild (1-3) Last Admin: 08/22/18 08:44 Dose: 650 mg Albuterol/Ipratropium (Duoneb 3 Mg/0.5 Mg (3 Ml) Ud) 3 ml IH RQID PRN PRN Reason: Shortness of Breath Camphor/Menthol (Bengay) 1 applic TOP Q6 PRN PRN Reason: Muscle spasm Last Admin: 08/22/18 08:44 Dose: 1 applic Docusate Sodium (Colace) 100 mg PO BID PRN PRN Reason: Constipation Gabapentin (Neurontin) 100 mg PO Q8 [facility] Last Admin: 08/22/18 08:47 Dose: 100 mg Meropenem 1 gm/ Sodium (Chloride) 100 mls @ 100 mls/hr IVPB Q8 [facility]; Protocol Last Admin: 08/22/18 08:46 Dose: 100 mls/hr Lidocaine (Lidoderm) 1 ea TD DAILY [facility] Last Admin: 08/22/18 08:46 Dose: 1 ea Lidocaine HCl (Xylocaine 2% (Uro-Jet)) 1 ea TOP ONCE [facility] Meclizine HCl (Antivert) 25 mg PO Q8 [facility] Last Admin: 08/22/18 08:46 Dose: 25 mg Nystatin (Nystop Topical Powder) 1 applic TOP TID [facility] Last Admin: 08/22/18 08:47 Dose: 1 applic Ondansetron HCl (Zofran Inj) 4 mg IVP Q4 PRN PRN Reason: Nausea/Vomiting Last Admin: 08/19/18 21:16 Dose: 4 mg Pantoprazole Sodium (Protonix Ec Tab) 40 mg PO DAILY [facility] Last Admin: 08/22/18 09:23 Dose: 40 mg Tramadol HCl (Ultram) 50 mg PO Q6 PRN PRN Reason: Pain, severe (8-10) Last Admin: 08/22/18 06:43 Dose: 50 mg - Labs Labs: 08/21/18 05:25 08/22/18 05:00 PT 13.8 Seconds (9.8-13.1) H 08/14/18 23:53 INR 1.2 08/14/18 23:53 APTT 31.6 Seconds (25.6-37.1) 08/14/18 23:53 Assessment and Plan - Assessment and Plan (Free Text) Plan: pt seen at bedside, resting comfortably. Pt is tolerating regular diet, no nausea or vomiting. Pt denies any abdominal pain. gen: awake, alert, NAD abd: soft, NT, ND, no peritoneal signs -cont diet as tolerated pt tolerating regular diet, no surgical intervention surgery will sign off
[2018-08-22] MEDS: Menthol/Methyl Salicylate Oinment TOP PRN (08:44)
[2018-08-22] MEDS: Lidocaine 5% Patch TD SCH (08:46)
[2018-08-22] MEDS: SILVASORB ANTIMICROBIAL WOUND GEL TP SCH (08:47)
[2018-08-22] MEDS: Pantoprazole 40 mg EC Tab PO SCH (09:23)
[2018-08-22] MEDS ORDERED: Lidocaine Hydrochloride 5 ML INJ ONE (13:20)
--- NOTE | 2018-08-22 13:37 | PCM.SURG1 ---
Surgeon's Initial Post Op Note - Surgeon's Notes Surgeon: Jamil Fuentes MD Press Writer: NONE Type of Anesthesia: Local Pre-Operative Diagnosis: Poor venous access Operative Findings: Patent brachial vein Post-Operative Diagnosis: Poor venous access Operation Performed: Single lumen midine catheter placed, tip is in axillary vein. Specimen/Specimens Removed: NONE Estimated Blood Loss: EBL {In ML}: 2 Blood Products Given: N/A Drains Used: No Drains Post-Op Condition: Fair Date of Surgery/Procedure: 08/22/18 Time of Surgery/Procedure: 13:20
--- NOTE | 2018-08-22 21:17 | PQF ---
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 1) Left plantar heel stage 2 pressure ulcer 2) Right posterior thigh stage 2 pressure ulcer 3) Lower sacrum stage 3 pressure ulcer Pressure ulcer is documented in the Medical Record. Please specify the locations present on admission status and stages. Stage of each pressure ulcer (National Pressure Ulcer Advisory Panel definitions): -- Stage I: Intact skin with non-blanchable redness of a localized area -- Stage II: Partial thickness skin loss involving dermis with a shallow open ulcer or an open serum -filled blister -- Stage III: Full thickness skin loss involving damage or necrosis of subcutaneous tissue -- Stage IV: Full thickness skin loss with exposed bone, tendon or muscle -- Unstageable: Full thickness tissue loss in which the base of the ulcer is covered by slough and/o r eschar in the wound bed The patient's Clinical Indicators include: 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 1) Left plantar heel stage 2 pressure ulcer 2) Right posterior thigh stage 2 pressure ulcer 3) Lower sacrum stage 3 pressure ulcer Rx ordered Query created by: Leia Santamaria on 08/18/2018 6:36 AM Electronically signed by: Parmjit Meeks 08/22/2018 9:14 PM
--- NOTE | 2018-08-22 21:17 | PQF ---
PROVIDER RESPONSE TEXT: Acute kidney injury. REVIEWER QUERY TEXT: Conflicting Documentation Clarification Renal Insufficiency and Acute Renal Failure are documented. Different ICD-10 codes. Creatinine 2.2-- > 1.0 after IVF. GFR 23--> 58. Admitted with Sepsis-- infection 2* castillo catheter , Acute Renal Failu re as per ID. Please clarify the diagnosis/diagnoses. Please also document if the condition is: -- Confirmed and current -- Confirmed, treated and resolved -- Ruled out -- Other, please specify A single mention or documentation of multiple diagnoses for the same clinical presentation appears in the record. The patient's Clinical Indicators include: Renal Insufficiency and Acute Renal Failure are documented. Different ICD-10 codes. Creatinine 2.2-- > 1.0 after IVF. GFR 23--> 58. Admitted with Sepsis--UTI infection 2* castillo catheter , Acute Renal F ailure as per ID. Rx: IVF. Chemistry monitoring Query created by: Leia Santamaria on 08/18/2018 6:37 AM Electronically signed by: Parmjit Meeks 08/22/2018 9:14 PM
[2018-08-23] MEDS: Meropenem 1 GM in Sodium Chloride 0.9% 100 ML IVPB SCH ×2 (00:48→08:59)
[2018-08-23 07:59] VITALS: O2SAT 95
[2018-08-23] MEDS: Lidocaine 5% Patch TD SCH (09:00)
[2018-08-23] MEDS: SILVASORB ANTIMICROBIAL WOUND GEL TP SCH (09:01)
[2018-08-23] MEDS: Pantoprazole 40 mg EC Tab PO SCH (09:01)
--- NOTE | 2018-08-23 10:28 | VASCULAR ---
Date of PRocedure: 08/22/2018 Procedure: 1. Placement of a right arm PICC with ultrasound and fluoroscopic guidance, CPT 73237 2. PICC tip confirmation with spot radiograph and is in the axillary vein Medications: 3 cc 1 percent lidocaine Total Fluoro time: 8.3 Seconds Radiation: 0.67 MGy EBL: 2 cc HISTORY: Poor venous access, central venous stenosis. TECHNIQUE: Following informed consent and procedure time-out, the patient was placed supine on the interventional table and the right arm prepped and draped in the usual sterile fashion. Ultrasound showed a patent and compressible right brachial vein. After the skin was anesthetized with lidocaine, the brachial vein was accessed with micro micropuncture technique using ultrasound guidance. A guidewire was then advanced under fluoroscopic guidance into the axillary vein. An image documenting ultrasound guidance for vascular access was permanently saved. The length of the single-lumen 4 Qatari PICC was trimmed to 15 centimeters and advanced through a peel-away sheath. The PICC was position with tip of PICC confirm a spot radiograph the axillary. The PICC was secured to the patient's skin. The PICC was flushed. A biopatch and sterile dressing was applied. IMPRESSION: Placement of a single-lumen 4 Qatari PICC trimmed to 15 centimeters via right brachial vein. The tip of the PICC is confirmed with spot radiograph and is in the axillary vein
--- NOTE | 2018-08-23 11:28 | CP.PCM.PN ---
Subjective - Date & Time of Evaluation Date of Evaluation: 08/23/18 Time of Evaluation: 10:00 Objective - Vital Signs/Intake and Output Vital Signs (last 24 hours): Temp Pulse Resp BP Pulse Ox 98.6 F 110 H 18 104/71 95 08/23/18 07:58 08/23/18 09:00 08/23/18 09:00 08/23/18 09:00 08/23/18 09:00 - Medications Medications: Current Medications Acetaminophen (Tylenol 325mg Tab) 650 mg PO Q6 PRN PRN Reason: Pain, Mild (1-3) Last Admin: 08/22/18 08:44 Dose: 650 mg Albuterol/Ipratropium (Duoneb 3 Mg/0.5 Mg (3 Ml) Ud) 3 ml IH RQID PRN PRN Reason: Shortness of Breath Camphor/Menthol (Bengay) 1 applic TOP Q6 PRN PRN Reason: Muscle spasm Last Admin: 08/22/18 08:44 Dose: 1 applic Docusate Sodium (Colace) 100 mg PO BID PRN PRN Reason: Constipation Gabapentin (Neurontin) 100 mg PO Q8 [facility] Last Admin: 08/23/18 09:00 Dose: 100 mg Meropenem 1 gm/ Sodium (Chloride) 100 mls @ 100 mls/hr IVPB Q8 [facility]; Protocol Last Admin: 08/23/18 08:59 Dose: 100 mls/hr Lidocaine (Lidoderm) 1 ea TD DAILY [facility] Last Admin: 08/23/18 09:00 Dose: 1 ea Lidocaine HCl (Xylocaine 2% (Uro-Jet)) 1 ea TOP ONCE [facility] Meclizine HCl (Antivert) 25 mg PO Q8 [facility] Last Admin: 08/23/18 08:59 Dose: 25 mg Nystatin (Nystop Topical Powder) 1 applic TOP TID [facility] Last Admin: 08/23/18 09:00 Dose: 1 applic Ondansetron HCl (Zofran Inj) 4 mg IVP Q4 PRN PRN Reason: Nausea/Vomiting Last Admin: 08/22/18 17:59 Dose: 4 mg Pantoprazole Sodium (Protonix Ec Tab) 40 mg PO DAILY [facility] Last Admin: 08/23/18 09:01 Dose: 40 mg Tramadol HCl (Ultram) 50 mg PO Q6 PRN PRN Reason: Pain, severe (8-10) Last Admin: 08/22/18 12:54 Dose: 50 mg - Labs Labs: 08/21/18 05:25 08/22/18 05:00 PT 13.8 Seconds (9.8-13.1) H 08/14/18 23:53 INR 1.2 08/14/18 23:53 APTT 31.6 Seconds (25.6-37.1) 08/14/18 23:53 Assessment and Plan (1) Sepsis Status: Acute (2) Urinary tract infection Status: Acute (3) Acute renal failure (ARF) Status: Acute
[2018-08-23 16:17] VITALS: BP 104/70; PULSE 120; RESP 20; TEMP 99.9
--- NOTE | 2018-08-25 00:14 | CP.PCM.DIS ---
Provider - Provider Date of Admission: 08/14/18 23:53 Attending physician: Parmjit Meeks MD Consults: 08/15/18 05:31 Nursing Referral for Wound Care Routine Comment: also has 2 small la posta rashes behind R thigh Physician Instructions: Reason For Exam: Patient has sacral skin tear covered with dressing 08/15/18 11:11 Infectious Disease Consult Routine Comment: Consulting Provider: Kd Hernandez Consulting Physician: Kd Hernandez Reason for Consult: uti sepsis 08/19/18 12:36 Surgical [General Surgery Consult] Routine Comment: Consulting Provider: Rashawn Reyes Consulting Physician: Rashawn Reyes Reason for Consult: possible ileus Time Spent in preparation of Discharge (in minutes): 30 Diagnosis - Discharge Diagnosis (1) UTI (urinary tract infection) Status: Acute (2) Leukocytosis Status: Acute (3) Abdominal pain Status: Acute Hospital Course - Lab Results Lab Results: Micro Results 08/22/18 13:00 Urine,[place] Urine Culture - Final No Growth (<1,000 CFU/ML) 08/14/18 23:35 Blood Blood Culture - Final NO GROWTH AFTER 5 DAYS 08/14/18 23:35 Blood Gram Stain - Final TEST NOT PERFORMED 08/14/18 23:18 Blood Blood Culture - Final NO GROWTH AFTER 5 DAYS 08/14/18 23:18 Blood Gram Stain - Final TEST NOT PERFORMED 08/14/18 23:53 Urine,Catheterized Urine Culture - Final Proteus Mirabilis Most Recent Lab Values WBC 12.9 K/uL (4.8-10.8) H 08/21/18 05:25 RBC 4.51 Mil/uL (3.80-5.20) 08/21/18 05:25 Hgb 13.1 g/dL (12.0-16.0) 08/21/18 05:25 Hct 39.6 % (34.0-47.0) 08/21/18 05:25 MCV 87.8 fl (81.0-99.0) 08/21/18 05:25 MCH 29.0 pg (27.0-31.0) 08/21/18 05:25 MCHC 33.0 g/dL (33.0-37.0) 08/21/18 05:25 RDW 15.8 % (11.5-14.5) H 08/21/18 05:25 Plt Count 448 K/uL (130-400) H 08/21/18 05:25 MPV 7.3 fl (7.2-11.7) 08/21/18 05:25 Neut % (Auto) 77.1 % (50.0-75.0) H 08/21/18 05:25 Lymph % (Auto) 9.5 % (20.0-40.0) L 08/21/18 05:25 Kinney % (Auto) 10.5 % (0.0-10.0) H 08/21/18 05:25 Eos % (Auto) 2.5 % (0.0-4.0) 08/21/18 05:25 Baso % (Auto) 0.4 % (0.0-2.0) 08/21/18 05:25 Neut # (Auto) 10.0 K/uL (1.8-7.0) H 08/21/18 05:25 Lymph # (Auto) 1.2 K/uL (1.0-4.3) 08/21/18 05:25 Kinney # (Auto) 1.4 K/uL (0.0-0.8) H 08/21/18 05:25 Eos # (Auto) 0.3 K/uL (0.0-0.7) 08/21/18 05:25 Baso # (Auto) 0.1 K/uL (0.0-0.2) 08/21/18 05:25 Neutrophils % (Manual) 74 % (42-75) 08/20/18 04:25 Band Neutrophils % 1 % (0-2) 08/20/18 04:25 Lymphocytes % (Manual) 10 % (20-50) L 08/20/18 04:25 Monocytes % (Manual) 9 % (0-10) 08/20/18 04:25 Eosinophils % (Manual) 3 % (0-7) 08/20/18 04:25 Metamyelocytes % 1 % (0-0) H 08/20/18 04:25 Myelocytes % 2 % (0-0) H 08/20/18 04:25 Toxic Granulation Present 08/20/18 04:25 Platelet Estimate Slightly increased (NORMAL) H 08/20/18 04:25 Plt Clumps, EDTA Present 08/14/18 23:18 Large Platelets Present 08/20/18 04:25 RBC Morphology Normal (NORMAL) 08/14/18 23:18 Anisocytosis (manual) Slight 08/20/18 04:25 Tear Drop Cells Slight 08/20/18 04:25 ESR 80 mm/hr (0-30) H 08/15/18 05:55 PT 13.8 Seconds (9.8-13.1) H 08/14/18 23:53 INR 1.2 08/14/18 23:53 APTT 31.6 Seconds (25.6-37.1) 08/14/18 23:53 pO2 30 mm/Hg (30-55) 08/15/18 02:38 VBG pH 7.26 (7.32-7.43) L 08/15/18 02:38 VBG pCO2 45 mmHg (40-60) 08/15/18 02:38 VBG HCO3 18.2 mmol/L 08/15/18 02:38 VBG Total CO2 21.6 mmol/L (22-28) L 08/15/18 02:38 VBG O2 Sat (Calc) 58.2 % (40-65) 08/15/18 02:38 VBG Base Excess -6.8 mmol/L (0.0-2.0) L 08/15/18 02:38 VBG Potassium 3.8 mmol/L (3.6-5.2) 08/15/18 02:38 Sodium 133.0 mmol/L (132-148) 08/15/18 02:38 Chloride 102.0 mmol/L (98-107) 08/15/18 02:38 Glucose 133 mg/dL (65-105) H 08/15/18 02:38 Lactate 2.6 mmol/L (0.7-2.1) H 08/15/18 02:38 FiO2 21.0 % 08/15/18 02:38 Sodium 138 mmol/l (132-148) 08/22/18 05:00 Potassium 3.7 MMOL/L (3.6-5.0) 08/22/18 05:00 Chloride 103 mmol/L (98-107) 08/22/18 05:00 Carbon Dioxide 25 mmol/L (22-30) 08/22/18 05:00 Anion Gap 14 (10-20) 08/22/18 05:00 BUN 11 mg/dl (7-17) 08/22/18 05:00 Creatinine 0.7 mg/dl (0.7-1.2) 08/22/18 05:00 Est GFR ( Amer) > 60 08/22/18 05:00 Est GFR (Non-Af Amer) > 60 08/22/18 05:00 Random Glucose 97 mg/dL (65-105) 08/22/18 05:00 Hemoglobin A1c 5.6 % (4.2-6.5) 08/15/18 05:55 Calcium 9.8 mg/dL (8.4-10.2) 08/22/18 05:00 Phosphorus 2.4 mg/dl (2.5-4.5) L 08/20/18 04:25 Magnesium 2.4 MG/DL (1.6-2.3) H 08/20/18 04:25 Total Bilirubin 0.3 mg/dl (0.2-1.3) 08/21/18 05:25 AST 24 U/L (14-36) 08/21/18 05:25 ALT 20 U/L (9-52) 08/21/18 05:25 Alkaline Phosphatase 92 U/L (38-126) 08/21/18 05:25 Total Protein 8.0 G/DL (6.3-8.2) 08/21/18 05:25 Albumin 3.8 g/dL (3.5-5.0) 08/21/18 05:25 Globulin 4.2 gm/dL (2.2-3.9) H 08/21/18 05:25 Albumin/Globulin Ratio 0.9 (1.0-2.1) L 08/21/18 05:25 TSH 3rd Generation 1.98 mIU/ML (0.46-4.68) 08/15/18 05:55 Venous Blood Potassium 3.8 mmol/L (3.6-5.2) 08/15/18 02:38 Urine Color Shraddha (YELLOW) 08/14/18 23:53 Urine Clarity Turbid (Clear) 08/14/18 23:53 Urine pH 9.0 (5.0-8.0) 08/14/18 23:53 Ur Specific Salix 1.013 (1.003-1.030) 08/14/18 23:53 Urine Protein 100 mg/dL (NEGATIVE) 08/14/18 23:53 Urine Glucose (UA) Neg mg/dL (NEGATIVE) 08/14/18 23:53 Urine Ketones Negative mg/dL (NEGATIVE) 08/14/18 23:53 Urine Blood Negative (NEGATIVE) 08/14/18 23:53 Urine Nitrate Positive (NEGATIVE) H 08/14/18 23:53 Urine Bilirubin Negative (NEGATIVE) 08/14/18 23:53 Urine Urobilinogen 0.2-1.0 mg/dL (0.2-1.0) 08/14/18 23:53 Ur Leukocyte Esterase Mod Nick/uL (Negative) 08/14/18 23:53 Urine RBC (Auto) 5 /hpf (0-3) H 08/14/18 23:53 Urine Microscopic WBC 52 /hpf (0-5) H 08/14/18 23:53 Ur Squamous Epith Cells 1 /hpf (0-5) 08/14/18 23:53 Amorphous Sediment Moderate /ul (<OCC) H 08/14/18 23:53 Urine Bacteria Many (<OCC) H 08/14/18 23:53 C. difficile Ag & Toxin Negative (NEGATIVE) 08/19/18 16:22 Influenza Typ A,B (EIA) Negative for flu a/b (NEGATIVE) 08/15/18 13:40 - Hospital Course Hospital Course: Pt was admitted for UTI/Urosepsis. She was seen by infectious disease and treated with antibiotics. During the course of hospitalization, a potential ileus was noted on abdominal imaging. Surgical team was consulted, and no further intervention was required. The pt improved and was discharged to TCU for continuation of antibiotics and PT. Discharge Exam - Head Exam Head Exam: NORMOCEPHALIC - Eye Exam Eye Exam: Normal appearance Pupil Exam: NORMAL ACCOMODATION - ENT Exam ENT Exam: Mucous Membranes Dry - Respiratory Exam Respiratory Exam: Decreased Breath Sounds - Cardiovascular Exam Cardiovascular Exam: REGULAR RHYTHM - GI/Abdominal Exam GI & Abdominal Exam: Hypoactive Bowel Sounds - Extremities Exam Extremities exam: full ROM - Back Exam Back exam: NORMAL INSPECTION - Neurological Exam Neurological exam: Alert, CN II-XII Intact, Oriented x3 - Psychiatric Exam Psychiatric exam: Normal Affect, Normal Mood - Skin Skin Exam: Dry, Pallor, Warm Discharge Plan - Discharge Medications Prescriptions: Meropenem IV 1 gm in NS [Merrem IV 1 gm Premix] 1 gm IVPB Q8 #21 bag - Follow Up Plan Condition: FAIR Disposition: TRANSF TO SNF Instructions: Urinary Tract Infection, Adult (DC), Sepsis, Adult (DC) Referrals: Rudi Floyd MD [Staff Provider] -
== END 2018-08-23 16:50 | DRG 698 ==
LOC: H.ER 21:39 → H.ERHOLD 23:53 → H.TEL 08-15 03:21
PROVIDERS: ADMIT Family Medicine; ATTEND Family Medicine
PROC: 05HY33Z Insertion of Infusion Device into Upper Vein, Percutaneous Approach (ICD-10-PCS; principal; 2018-08-20)
PROC: 3E03329 Introduction of Other Anti-infective into Peripheral Vein, Percutaneous Approach (ICD-10-PCS; 2018-08-20)
DX: T83.518A Infection and inflammatory reaction due to other urinary catheter, initial encounter (principal); L89.153 Pressure ulcer of sacral region, stage 3; A41.9 Sepsis, unspecified organism; K56.7 Ileus, unspecified; N17.9 Acute kidney failure, unspecified; N39.0 Urinary tract infection, site not specified; I69.354 Hemiplegia and hemiparesis following cerebral infarction affecting left non-dominant side; L89.622 Pressure ulcer of left heel, stage 2; L89.892 Pressure ulcer of other site, stage 2; B96.4 Proteus (mirabilis) (morganii) as the cause of diseases classified elsewhere; Z16.12 Extended spectrum beta lactamase (ESBL) resistance; E87.6 Hypokalemia; E78.00 Pure hypercholesterolemia, unspecified; G40.909 Epilepsy, unspecified, not intractable, without status epilepticus; N18.9 Chronic kidney disease, unspecified; I12.9 Hypertensive chronic kidney disease with stage 1 through stage 4 chronic kidney disease, or unspecified chronic kidney disease; K21.9 Gastro-esophageal reflux disease without esophagitis; J44.9 Chronic obstructive pulmonary disease, unspecified; K29.70 Gastritis, unspecified, without bleeding; F32.9 Major depressive disorder, single episode, unspecified; Z96.653 Presence of artificial knee joint, bilateral; Z74.01 Bed confinement status; Z85.41 Personal history of malignant neoplasm of cervix uteri; Z86.711 Personal history of pulmonary embolism; Z87.01 Personal history of pneumonia (recurrent); Z88.0 Allergy status to penicillin; Z92.21 Personal history of antineoplastic chemotherapy

== ENCOUNTER 2018-08-23 14:14 | Inpatient (IN) | payer OTHER, MEDICAID ==
[2018-08-23 17:25] VITALS: BMI 25.7
[2018-08-23] MEDS ORDERED: Albuterol-Ipratrop 3 mg / 0.5 (3 ml) UD IH PRN (18:12)
[2018-08-23] MEDS ORDERED: Benzocaine/Menthol (Cepacol) Lozenge MM PRN (18:12)
[2018-08-23] MEDS ORDERED: Lidocaine 2% Jelly (Uro-Jet) TOP SCH (18:15)
[2018-08-24] MEDS: Meropenem 1 GM in Sodium Chloride 0.9% 100 ML IVPB SCH ×3 (00:58→17:55)
[2018-08-24] MEDS ORDERED: Patient's Own Med (Meropenem Iv 1 Gm In Ns [Merrem Iv 1 Gm Premix] 1 GM) IVPB SCH (01:00)
[2018-08-24] MEDS: Lidocaine 5% Patch TD SCH (08:41)
[2018-08-24] MEDS: Pantoprazole 40 mg EC Tab PO SCH (08:42)
[2018-08-24] MEDS: SILVASORB ANTIMICROBIAL WOUND GEL TP SCH (10:56)
--- NOTE | 2018-08-24 18:40 | CP.PCM.HP ---
History of Present Illness - History of Present Illness History of Present Illness: 52 yo female bed bound due to CVA admitted to TCU for further IV abx treatment after recent admission due to UTI sepsis and MICHAEL. Patient currently being cared for during time of examination. reviewed chart and available diagnostic data. Meds: as per chart Allergies: as per chart Fam Hx: non contributory Present on Admission - Present on Admission Any Indicators Present on Admission: Yes Decubitus Ulcer Present: Yes Past Patient History - Past Medical History & Family History Past Medical History?: Yes - Past Social History Smoking Status: Never Smoked - CARDIAC Hx Hypercholesterolemia: Yes Hx Hypertension: Yes - PULMONARY Hx Chronic Obstructive Pulmonary Disease (COPD): Yes Hx Pneumonia: Yes Hx Pulmonary Embolism: Yes - NEUROLOGICAL Hx Transient Ischemic Attacks (TIA): Yes - HEENT Hx HEENT Problems: Yes - RENAL Hx Chronic Kidney Disease: Yes - ENDOCRINE/METABOLIC Hx Endocrine Disorders: No - HEMATOLOGICAL/ONCOLOGICAL Hx AIDS: No Hx Human Immunodeficiency Virus (HIV): No - INTEGUMENTARY Hx Dermatological Problems: Yes - MUSCULOSKELETAL/RHEUMATOLOGICAL Hx Falls: No - GASTROINTESTINAL Hx Gastritis: Yes - GENITOURINARY/GYNECOLOGICAL Hx Genitourinary Disorders: Yes - PSYCHIATRIC Hx Depression: Yes Hx Substance Use: No - SURGICAL HISTORY Hx Appendectomy: Yes Hx Cholecystectomy: Yes - ANESTHESIA Hx Anesthesia: Yes Hx Anesthesia Reactions: No Hx Malignant Hyperthermia: No Meds Allergies/Adverse Reactions: Allergies Allergy/AdvReac Type Severity Reaction Status Date / Time cimetidine [From [facility]] Allergy RASH Verified 08/23/18 15:19 nickel Allergy RASH Verified 08/23/18 15:19 Penicillins Allergy RASH Verified 08/23/18 15:19 Results - Vital Signs Recent Vital Signs: Last Vital Signs Temp 97.2 F L 08/24/18 17:00 Pulse 106 H 08/24/18 17:00 Resp 20 08/24/18 17:00 BP 116/81 08/24/18 17:00 Pulse Ox 94 L 08/24/18 17:00 Assessment & Plan (1) Urinary tract infection Status: Acute
[2018-08-25] MEDS: Meropenem 1 GM in Sodium Chloride 0.9% 100 ML IVPB SCH ×3 (01:58→16:22)
[2018-08-25 06:52] LABS: HEMOGLOBIN 13.1 g/dL (12.0-16.0); MEAN CELL VOLUME 89.2 fl (81.0-99.0); MEAN CORPUSCULAR HEMOGLOBIN 28.7 pg (27.0-31.0); MEAN CORPUSCULAR HGB CONC 32.2 g/dL (33.0-37.0); RBC 4.56 Mil/uL (3.80-5.20); RED CELL DISTRIBUTION WIDTH 15.4 % (11.5-14.5); WHITE BLOOD COUNT 13.2 K/uL (4.8-10.8)
[2018-08-25 07:02] LABS: ALB/GLOB RATIO 0.9 (1.0-2.1); ALBUMIN 3.9 g/dL (3.5-5.0); ALT/SGPT 28 U/L (9-52); AST/SGOT 34 U/L (14-36); BLOOD UREA NITROGEN 12 mg/dl (7-17); CALCIUM 9.6 mg/dL (8.4-10.2); GFR NON-AFRICAN AMERICAN > 60
[2018-08-25 07:15] LABS: INR 1.1; PROTHROMBIN TIME 12.9 Seconds (9.8-13.1)
[2018-08-25 07:18] LABS: PARTIAL THROMBOPLASTIN TIME 29.3 Seconds (25.6-37.1)
[2018-08-25] MEDS: Pantoprazole 40 mg EC Tab PO SCH (08:25)
[2018-08-25] MEDS: Menthol/Methyl Salicylate Oinment TOP PRN (08:27)
[2018-08-25] MEDS: Lidocaine 5% Patch TD SCH (08:28)
[2018-08-25] MEDS: SILVASORB ANTIMICROBIAL WOUND GEL TP SCH (08:28)
[2018-08-26] MEDS: Meropenem 1 GM in Sodium Chloride 0.9% 100 ML IVPB SCH ×3 (01:04→16:37)
[2018-08-26] MEDS: Lidocaine 5% Patch TD SCH (09:48)
[2018-08-26] MEDS: SILVASORB ANTIMICROBIAL WOUND GEL TP SCH (09:49)
[2018-08-26] MEDS: Menthol/Methyl Salicylate Oinment TOP PRN ×2 (09:49→16:38)
[2018-08-26] MEDS: Pantoprazole 40 mg EC Tab PO SCH (09:51)
[2018-08-27] MEDS: Meropenem 1 GM in Sodium Chloride 0.9% 100 ML IVPB SCH ×3 (01:55→16:25)
[2018-08-27] MEDS: Pantoprazole 40 mg EC Tab PO SCH (08:57)
[2018-08-27] MEDS: SILVASORB ANTIMICROBIAL WOUND GEL TP SCH (09:03)
[2018-08-27] MEDS: Lidocaine 5% Patch TD SCH (09:04)
--- NOTE | 2018-08-27 23:27 | CP.PCM.PN ---
Subjective - Date & Time of Evaluation Date of Evaluation: 08/25/18 Time of Evaluation: 11:00 - Subjective Subjective: Patient is stable Has no fever On Iv antibiotics. Noted tachycardia Objective - Vital Signs/Intake and Output Vital Signs (last 24 hours): Temp Pulse Resp BP Pulse Ox 98.7 F 109 H 20 98/63 L 95 08/27/18 21:55 08/27/18 21:55 08/27/18 21:55 08/27/18 21:55 08/27/18 21:55 Intake and Output: 08/27/18 08/28/18 18:59 06:59 Intake Total 200 Output Total 1000 Balance -800 - Medications Medications: Current Medications Acetaminophen (Tylenol 325mg Tab) 325 mg PO Q6 PRN PRN Reason: Pain, Mild (1-3) Last Admin: 08/27/18 12:17 Dose: 325 mg Albuterol/Ipratropium (Duoneb 3 Mg/0.5 Mg (3 Ml) Ud) 3 ml IH RTID PRN PRN Reason: Shortness of Breath Benzocaine/Menthol (Cepacol Sore Throat) 1 chelly MM Q2 PRN PRN Reason: Cough Camphor/Menthol (Bengay) 1 applic TOP Q6 PRN PRN Reason: Muscle spasm Last Admin: 08/26/18 16:38 Dose: 1 unit Docusate Sodium (Colace) 100 mg PO BID PRN PRN Reason: Constipation Last Admin: 08/27/18 08:58 Dose: 100 mg Gabapentin (Neurontin) 100 mg PO Q8 [facility] Last Admin: 08/27/18 17:03 Dose: 100 mg Hydroxyzine HCl (Atarax) 25 mg PO Q8H [facility] Last Admin: 08/27/18 17:02 Dose: 25 mg Meropenem 1 gm/ Sodium (Chloride) 100 mls @ 100 mls/hr IVPB Q8 [facility] Last Admin: 08/27/18 16:25 Dose: 100 mls/hr Lidocaine (Lidoderm) 1 ea TD DAILY [facility] Last Admin: 08/27/18 09:04 Dose: 1 ea Lidocaine HCl (Xylocaine 2% (Uro-Jet)) 1 ea TOP ONCE [facility] Meclizine HCl (Antivert) 25 mg PO Q8 [facility] Last Admin: 08/27/18 17:03 Dose: 25 mg Metoclopramide HCl (Reglan) 10 mg PO Q6 PRN PRN Reason: Nausea/Vomiting Last Admin: 08/24/18 12:15 Dose: 10 mg Nystatin (Nystop Topical Powder) 1 applic TOP TID [facility] Last Admin: 08/27/18 16:28 Dose: 1 applic Ondansetron HCl (Zofran Inj) 4 mg IVP Q4 PRN PRN Reason: Nausea/Vomiting Pantoprazole Sodium (Protonix Ec Tab) 40 mg PO DAILY [facility] Last Admin: 08/27/18 08:57 Dose: 40 mg Tramadol HCl (Ultram) 50 mg PO Q6 PRN PRN Reason: Pain, severe (8-10) Last Admin: 08/27/18 21:35 Dose: 50 mg - Labs Labs: 08/25/18 06:00 08/25/18 06:00 PT 12.9 Seconds (9.8-13.1) 08/25/18 06:00 INR 1.1 08/25/18 06:00 APTT 29.3 Seconds (25.6-37.1) 08/25/18 06:00 - Head Exam Head Exam: NORMAL INSPECTION - Eye Exam Eye Exam: Normal appearance - ENT Exam ENT Exam: Mucous Membranes Moist - Respiratory Exam Respiratory Exam: Clear to Ausculation Bilateral - Cardiovascular Exam Cardiovascular Exam: Clicks - GI/Abdominal Exam GI & Abdominal Exam: Normal Bowel Sounds - Neurological Exam Neurological Exam: Awake Assessment and Plan (1) UTI (urinary tract infection) Status: Acute (2) Status post CVA Status: Acute (3) Tachycardia Status: Acute - Assessment and Plan (Free Text) Plan: Cont meds Cont iv antibiotics cont PT
--- NOTE | 2018-08-27 23:28 | CP.PCM.PN ---
Subjective - Date & Time of Evaluation Date of Evaluation: 08/26/18 Time of Evaluation: 14:00 - Subjective Subjective: patient remains stable Desires to go home On IV antibiotics Has no fever. Objective - Vital Signs/Intake and Output Vital Signs (last 24 hours): Temp Pulse Resp BP Pulse Ox 98.7 F 109 H 20 98/63 L 95 08/27/18 21:55 08/27/18 21:55 08/27/18 21:55 08/27/18 21:55 08/27/18 21:55 Intake and Output: 08/27/18 08/28/18 18:59 06:59 Intake Total 200 Output Total 1000 Balance -800 - Medications Medications: Current Medications Acetaminophen (Tylenol 325mg Tab) 325 mg PO Q6 PRN PRN Reason: Pain, Mild (1-3) Last Admin: 08/27/18 12:17 Dose: 325 mg Albuterol/Ipratropium (Duoneb 3 Mg/0.5 Mg (3 Ml) Ud) 3 ml IH RTID PRN PRN Reason: Shortness of Breath Benzocaine/Menthol (Cepacol Sore Throat) 1 chelly MM Q2 PRN PRN Reason: Cough Camphor/Menthol (Bengay) 1 applic TOP Q6 PRN PRN Reason: Muscle spasm Last Admin: 08/26/18 16:38 Dose: 1 unit Docusate Sodium (Colace) 100 mg PO BID PRN PRN Reason: Constipation Last Admin: 08/27/18 08:58 Dose: 100 mg Gabapentin (Neurontin) 100 mg PO Q8 [facility] Last Admin: 08/27/18 17:03 Dose: 100 mg Hydroxyzine HCl (Atarax) 25 mg PO Q8H [facility] Last Admin: 08/27/18 17:02 Dose: 25 mg Meropenem 1 gm/ Sodium (Chloride) 100 mls @ 100 mls/hr IVPB Q8 [facility] Last Admin: 08/27/18 16:25 Dose: 100 mls/hr Lidocaine (Lidoderm) 1 ea TD DAILY [facility] Last Admin: 08/27/18 09:04 Dose: 1 ea Lidocaine HCl (Xylocaine 2% (Uro-Jet)) 1 ea TOP ONCE [facility] Meclizine HCl (Antivert) 25 mg PO Q8 [facility] Last Admin: 08/27/18 17:03 Dose: 25 mg Metoclopramide HCl (Reglan) 10 mg PO Q6 PRN PRN Reason: Nausea/Vomiting Last Admin: 08/24/18 12:15 Dose: 10 mg Nystatin (Nystop Topical Powder) 1 applic TOP TID [facility] Last Admin: 08/27/18 16:28 Dose: 1 applic Ondansetron HCl (Zofran Inj) 4 mg IVP Q4 PRN PRN Reason: Nausea/Vomiting Pantoprazole Sodium (Protonix Ec Tab) 40 mg PO DAILY [facility] Last Admin: 08/27/18 08:57 Dose: 40 mg Tramadol HCl (Ultram) 50 mg PO Q6 PRN PRN Reason: Pain, severe (8-10) Last Admin: 08/27/18 21:35 Dose: 50 mg - Labs Labs: 08/25/18 06:00 08/25/18 06:00 PT 12.9 Seconds (9.8-13.1) 08/25/18 06:00 INR 1.1 08/25/18 06:00 APTT 29.3 Seconds (25.6-37.1) 08/25/18 06:00 - Head Exam Head Exam: NORMAL INSPECTION - Eye Exam Eye Exam: Normal appearance - Respiratory Exam Respiratory Exam: Clear to Ausculation Bilateral - Cardiovascular Exam Cardiovascular Exam: REGULAR RHYTHM - GI/Abdominal Exam GI & Abdominal Exam: Normal Bowel Sounds Assessment and Plan (1) UTI (urinary tract infection) Status: Acute (2) Status post CVA Status: Acute (3) Tachycardia Status: Acute - Assessment and Plan (Free Text) Plan: Cont meds cont iv antibiotics
--- NOTE | 2018-08-27 23:30 | CP.PCM.PN ---
Subjective - Date & Time of Evaluation Date of Evaluation: 08/27/18 Time of Evaluation: 15:00 - Subjective Subjective: Patient remains stable Has no fever Has no chest pain or SOB On Meropenem Objective - Vital Signs/Intake and Output Vital Signs (last 24 hours): Temp Pulse Resp BP Pulse Ox 98.7 F 109 H 20 98/63 L 95 08/27/18 21:55 08/27/18 21:55 08/27/18 21:55 08/27/18 21:55 08/27/18 21:55 Intake and Output: 08/27/18 08/28/18 18:59 06:59 Intake Total 200 Output Total 1000 Balance -800 - Medications Medications: Current Medications Acetaminophen (Tylenol 325mg Tab) 325 mg PO Q6 PRN PRN Reason: Pain, Mild (1-3) Last Admin: 08/27/18 12:17 Dose: 325 mg Albuterol/Ipratropium (Duoneb 3 Mg/0.5 Mg (3 Ml) Ud) 3 ml IH RTID PRN PRN Reason: Shortness of Breath Benzocaine/Menthol (Cepacol Sore Throat) 1 chelly MM Q2 PRN PRN Reason: Cough Camphor/Menthol (Bengay) 1 applic TOP Q6 PRN PRN Reason: Muscle spasm Last Admin: 08/26/18 16:38 Dose: 1 unit Docusate Sodium (Colace) 100 mg PO BID PRN PRN Reason: Constipation Last Admin: 08/27/18 08:58 Dose: 100 mg Gabapentin (Neurontin) 100 mg PO Q8 [facility] Last Admin: 08/27/18 17:03 Dose: 100 mg Hydroxyzine HCl (Atarax) 25 mg PO Q8H [facility] Last Admin: 08/27/18 17:02 Dose: 25 mg Meropenem 1 gm/ Sodium (Chloride) 100 mls @ 100 mls/hr IVPB Q8 [facility] Last Admin: 08/27/18 16:25 Dose: 100 mls/hr Lidocaine (Lidoderm) 1 ea TD DAILY [facility] Last Admin: 08/27/18 09:04 Dose: 1 ea Lidocaine HCl (Xylocaine 2% (Uro-Jet)) 1 ea TOP ONCE [facility] Meclizine HCl (Antivert) 25 mg PO Q8 [facility] Last Admin: 08/27/18 17:03 Dose: 25 mg Metoclopramide HCl (Reglan) 10 mg PO Q6 PRN PRN Reason: Nausea/Vomiting Last Admin: 08/24/18 12:15 Dose: 10 mg Nystatin (Nystop Topical Powder) 1 applic TOP TID [facility] Last Admin: 08/27/18 16:28 Dose: 1 applic Ondansetron HCl (Zofran Inj) 4 mg IVP Q4 PRN PRN Reason: Nausea/Vomiting Pantoprazole Sodium (Protonix Ec Tab) 40 mg PO DAILY [facility] Last Admin: 08/27/18 08:57 Dose: 40 mg Tramadol HCl (Ultram) 50 mg PO Q6 PRN PRN Reason: Pain, severe (8-10) Last Admin: 08/27/18 21:35 Dose: 50 mg - Labs Labs: 08/25/18 06:00 08/25/18 06:00 PT 12.9 Seconds (9.8-13.1) 08/25/18 06:00 INR 1.1 08/25/18 06:00 APTT 29.3 Seconds (25.6-37.1) 08/25/18 06:00 - Head Exam Head Exam: NORMAL INSPECTION - Eye Exam Eye Exam: Normal appearance - ENT Exam ENT Exam: Mucous Membranes Moist - Respiratory Exam Respiratory Exam: Clear to Ausculation Bilateral - Cardiovascular Exam Cardiovascular Exam: REGULAR RHYTHM - GI/Abdominal Exam GI & Abdominal Exam: Normal Bowel Sounds Assessment and Plan (1) UTI (urinary tract infection) Status: Acute (2) Status post CVA Status: Acute (3) Tachycardia Status: Acute - Assessment and Plan (Free Text) Plan: Cont meds Cont tx cont PT
[2018-08-28] MEDS: Meropenem 1 GM in Sodium Chloride 0.9% 100 ML IVPB SCH ×3 (00:03→16:13)
[2018-08-28] MEDS: SILVASORB ANTIMICROBIAL WOUND GEL TP SCH (11:20)
[2018-08-28] MEDS: Lidocaine 5% Patch TD SCH (11:21)
[2018-08-28] MEDS: Pantoprazole 40 mg EC Tab PO SCH (11:22)
[2018-08-28] MEDS: Menthol/Methyl Salicylate Oinment TOP PRN (16:22)
--- NOTE | 2018-08-28 23:24 | CP.PCM.PN ---
Subjective - Date & Time of Evaluation Date of Evaluation: 08/28/18 Time of Evaluation: 11:00 - Subjective Subjective: patient seen and examined at bedside. No complaints offered at this time denies cp/sob/fever/chills. available diagnostic data reviewed Review of Systems All systems: reviewed and no additional remarkable complaints except mentioned above Objective Vital Signs Stable - Constitutional Appears: Non-toxic, No Acute Distress Head Exam: NORMAL INSPECTION Eye Exam: Normal appearance Respiratory Exam: NORMAL BREATHING PATTERN Cardiovascular Exam: +S1, +S2 GI & Abdominal Exam: Soft Neurological Exam: Alert, Awake Psychiatric exam: Normal Affect, Normal Mood Skin Exam: Normal Color, Warm Assessment and Plan monitor vitals monitor labs Cont meds Cont tx requires IV abx for resistant uti rest of plan as ordered Objective - Vital Signs/Intake and Output Vital Signs (last 24 hours): Temp Pulse Resp BP Pulse Ox 98.2 F 107 H 20 109/69 95 08/28/18 21:48 08/28/18 21:48 08/28/18 21:48 08/28/18 21:48 08/28/18 21:48 - Medications Medications: Current Medications Acetaminophen (Tylenol 325mg Tab) 325 mg PO Q6 PRN PRN Reason: Pain, Mild (1-3) Last Admin: 08/27/18 12:17 Dose: 325 mg Albuterol/Ipratropium (Duoneb 3 Mg/0.5 Mg (3 Ml) Ud) 3 ml IH RTID PRN PRN Reason: Shortness of Breath Benzocaine/Menthol (Cepacol Sore Throat) 1 chelly MM Q2 PRN PRN Reason: Cough Camphor/Menthol (Bengay) 1 applic TOP Q6 PRN PRN Reason: Muscle spasm Last Admin: 08/28/18 16:22 Dose: 1 unit Docusate Sodium (Colace) 100 mg PO BID PRN PRN Reason: Constipation Last Admin: 08/27/18 08:58 Dose: 100 mg Gabapentin (Neurontin) 100 mg PO Q8 [facility] Last Admin: 08/28/18 16:14 Dose: 100 mg Hydroxyzine HCl (Atarax) 25 mg PO Q8H [facility] Last Admin: 08/28/18 16:14 Dose: 25 mg Meropenem 1 gm/ Sodium (Chloride) 100 mls @ 100 mls/hr IVPB Q8 [facility] Last Admin: 08/28/18 16:13 Dose: 100 mls/hr Lidocaine (Lidoderm) 1 ea TD DAILY [facility] Last Admin: 08/28/18 11:21 Dose: 1 ea Lidocaine HCl (Xylocaine 2% (Uro-Jet)) 1 ea TOP ONCE [facility] Meclizine HCl (Antivert) 25 mg PO Q8 [facility] Last Admin: 08/28/18 16:14 Dose: 25 mg Metoclopramide HCl (Reglan) 10 mg PO Q6 PRN PRN Reason: Nausea/Vomiting Last Admin: 08/24/18 12:15 Dose: 10 mg Nystatin (Nystop Topical Powder) 1 applic TOP TID [facility] Last Admin: 08/28/18 16:14 Dose: 1 applic Ondansetron HCl (Zofran Inj) 4 mg IVP Q4 PRN PRN Reason: Nausea/Vomiting Pantoprazole Sodium (Protonix Ec Tab) 40 mg PO DAILY [facility] Last Admin: 08/28/18 11:22 Dose: 40 mg Tramadol HCl (Ultram) 50 mg PO Q6 PRN PRN Reason: Pain, severe (8-10) Last Admin: 08/28/18 20:05 Dose: 50 mg - Labs Labs: 08/25/18 06:00 08/25/18 06:00 PT 12.9 Seconds (9.8-13.1) 08/25/18 06:00 INR 1.1 08/25/18 06:00 APTT 29.3 Seconds (25.6-37.1) 08/25/18 06:00 Assessment and Plan (1) Urinary tract infection Status: Acute
[2018-08-29] MEDS: Meropenem 1 GM in Sodium Chloride 0.9% 100 ML IVPB SCH ×3 (00:02→16:54)
[2018-08-29] MEDS: Menthol/Methyl Salicylate Oinment TOP PRN ×2 (00:07→14:00)
[2018-08-29] MEDS: Lidocaine 5% Patch TD SCH (10:29)
[2018-08-29] MEDS: Pantoprazole 40 mg EC Tab PO SCH (10:32)
[2018-08-29] MEDS: SILVASORB ANTIMICROBIAL WOUND GEL TP SCH (10:32)
[2018-08-30] MEDS: Meropenem 1 GM in Sodium Chloride 0.9% 100 ML IVPB SCH ×3 (00:02→16:17)
[2018-08-30] MEDS: Menthol/Methyl Salicylate Oinment TOP PRN (01:46)
[2018-08-30] MEDS: SILVASORB ANTIMICROBIAL WOUND GEL TP SCH (08:51)
[2018-08-30] MEDS: Pantoprazole 40 mg EC Tab PO SCH (08:52)
[2018-08-30] MEDS: Lidocaine 5% Patch TD SCH (08:53)
[2018-08-31] MEDS: Meropenem 1 GM in Sodium Chloride 0.9% 100 ML IVPB SCH ×3 (00:10→16:44)
[2018-08-31] MEDS: Menthol/Methyl Salicylate Oinment TOP PRN ×2 (00:18→12:04)
--- NOTE | 2018-08-31 01:33 | CP.PCM.PN ---
Subjective - Date & Time of Evaluation Date of Evaluation: 08/30/18 Time of Evaluation: 10:30 - Subjective Subjective: Pt seen and assessed at bedside. No new complaints. Currently on the last day of antibiotics. Subjective Review of Systems: Reviewed and no additional remarkable complaints except occasional back pain. Objective Vital Signs Stable Appears: Non-toxic, No Acute Distress. Head Exam: NORMAL INSPECTION, normocephalic. Eye Exam: Normal appearance, EOMI, PERRLA. Respiratory Exam: NORMAL BREATHING PATTERN, breath sounds clear to auscultation. Cardiovascular Exam: +S1, +S2. RRR GI & Abdominal Exam: Non-tender, non-distended, normal bowel sounds. Neurological Exam: Alert, Awake, Oriented x3. Psychiatric exam: Normal Affect, Normal Mood Skin Exam: Pale, Warm, Dry. Assessment/Impression/Plan: 1.) UTI/Urosepsis -Continue finishing IV Antibiotics (Merrem). -Ultram for pain. -Discharge planning advised. -Wound care PRN. -Advised pt to get OOB and sit in bedside chair. -Continue current tx. Objective - Vital Signs/Intake and Output Vital Signs (last 24 hours): Temp Pulse Resp BP Pulse Ox 99.0 F 112 H 20 110/72 95 08/30/18 21:14 08/30/18 21:14 08/30/18 21:14 08/30/18 21:14 08/30/18 21:14 - Medications Medications: Current Medications Acetaminophen (Tylenol 325mg Tab) 325 mg PO Q6 PRN PRN Reason: Pain, Mild (1-3) Last Admin: 08/30/18 18:21 Dose: 325 mg Albuterol/Ipratropium (Duoneb 3 Mg/0.5 Mg (3 Ml) Ud) 3 ml IH RTID PRN PRN Reason: Shortness of Breath Benzocaine/Menthol (Cepacol Sore Throat) 1 chelly MM Q2 PRN PRN Reason: Cough Camphor/Menthol (Bengay) 1 applic TOP Q6 PRN PRN Reason: Muscle spasm Last Admin: 08/31/18 00:18 Dose: 1 applic Docusate Sodium (Colace) 100 mg PO BID PRN PRN Reason: Constipation Last Admin: 08/27/18 08:58 Dose: 100 mg Gabapentin (Neurontin) 100 mg PO Q8 [facility] Last Admin: 08/31/18 00:11 Dose: 100 mg Hydroxyzine HCl (Atarax) 25 mg PO Q8H [facility] Last Admin: 08/31/18 00:12 Dose: 25 mg Meropenem 1 gm/ Sodium (Chloride) 100 mls @ 100 mls/hr IVPB Q8 [facility] Last Admin: 08/31/18 00:10 Dose: 100 mls/hr Lidocaine (Lidoderm) 1 ea TD DAILY [facility] Last Admin: 08/30/18 08:53 Dose: 1 ea Lidocaine HCl (Xylocaine 2% (Uro-Jet)) 1 ea TOP ONCE [facility] Meclizine HCl (Antivert) 25 mg PO Q8 [facility] Last Admin: 08/31/18 00:13 Dose: 25 mg Metoclopramide HCl (Reglan) 10 mg PO Q6 PRN PRN Reason: Nausea/Vomiting Last Admin: 08/24/18 12:15 Dose: 10 mg Nystatin (Nystop Topical Powder) 1 applic TOP TID [facility] Last Admin: 08/30/18 16:17 Dose: 1 applic Ondansetron HCl (Zofran Inj) 4 mg IVP Q4 PRN PRN Reason: Nausea/Vomiting Pantoprazole Sodium (Protonix Ec Tab) 40 mg PO DAILY [facility] Last Admin: 08/30/18 08:52 Dose: 40 mg Tramadol HCl (Ultram) 50 mg PO Q6 PRN PRN Reason: Pain, severe (8-10) Last Admin: 08/31/18 00:09 Dose: 50 mg - Labs Labs: 08/25/18 06:00 08/25/18 06:00 PT 12.9 Seconds (9.8-13.1) 08/25/18 06:00 INR 1.1 08/25/18 06:00 APTT 29.3 Seconds (25.6-37.1) 08/25/18 06:00
[2018-08-31 07:51] LABS: BASO # 0.1 K/uL (0.0-0.2); BASO % 0.8 % (0.0-2.0); EOS # 0.9 K/uL (0.0-0.7); EOS % 7.9 % (0.0-4.0); HEMOGLOBIN 12.3 g/dL (12.0-16.0); LYMPH # 1.7 K/uL (1.0-4.3); LYMPH % 14.6 % (20.0-40.0); MEAN CELL VOLUME 88.6 fl (81.0-99.0); MEAN CORPUSCULAR HEMOGLOBIN 28.8 pg (27.0-31.0); MEAN CORPUSCULAR HGB CONC 32.5 g/dL (33.0-37.0); MEAN PLATELET VOLUME 7.1 fl (7.2-11.7); MONO # 1.6 K/uL (0.0-0.8); MONO % 14.5 % (0.0-10.0); NEUT # 7.1 K/uL (1.8-7.0); NEUT % 62.2 % (50.0-75.0); RBC 4.28 Mil/uL (3.80-5.20); RED CELL DISTRIBUTION WIDTH 15.6 % (11.5-14.5); WHITE BLOOD COUNT 11.3 K/uL (4.8-10.8)
[2018-08-31 08:17] LABS: ALB/GLOB RATIO 0.9 (1.0-2.1); ALBUMIN 3.7 g/dL (3.5-5.0); ALT/SGPT 47 U/L (9-52); AST/SGOT 63 U/L (14-36); BLOOD UREA NITROGEN 13 mg/dl (7-17); CALCIUM 9.5 mg/dL (8.4-10.2); GFR NON-AFRICAN AMERICAN > 60
[2018-08-31] MEDS: SILVASORB ANTIMICROBIAL WOUND GEL TP SCH (08:31)
[2018-08-31] MEDS: Pantoprazole 40 mg EC Tab PO SCH (08:32)
[2018-08-31] MEDS: Lidocaine 5% Patch TD SCH (08:33)
--- NOTE | 2018-08-31 19:03 | CARD ---
APPROVED REPORT Date of service: 08/31/2018 EKG Measurement Heart [id number] <Conclusion> Sinus tachycardia Otherwise normal ECG
[2018-09-01] MEDS: Meropenem 1 GM in Sodium Chloride 0.9% 100 ML IVPB SCH ×2 (00:21→08:10)
[2018-09-01] MEDS: Lidocaine 5% Patch TD SCH (08:03)
[2018-09-01] MEDS: Pantoprazole 40 mg EC Tab PO SCH (08:03)
[2018-09-01] MEDS: SILVASORB ANTIMICROBIAL WOUND GEL TP SCH (08:04)
[2018-09-01 08:16] VITALS: BP 104/70; PULSE 107; RESP 18; TEMP 98.6; O2SAT 96
== END 2018-09-01 11:40 | disposition home or self-care (01) | DRG 690 ==
LOC: H.TCU 17:26
PROVIDERS: ADMIT Family Medicine; ATTEND Family Medicine
PROC: 3E03329 Introduction of Other Anti-infective into Peripheral Vein, Percutaneous Approach (ICD-10-PCS; principal; 2018-08-23)
PROC: F07Z9FZ Gait Training/Functional Ambulation Treatment using Assistive, Adaptive, Supportive or Protective Equipment (ICD-10-PCS; 2018-08-23)
PROC: F08Z4FZ Home Management Treatment using Assistive, Adaptive, Supportive or Protective Equipment (ICD-10-PCS; 2018-08-23)
DX: N39.0 Urinary tract infection, site not specified (principal); I69.354 Hemiplegia and hemiparesis following cerebral infarction affecting left non-dominant side; J44.9 Chronic obstructive pulmonary disease, unspecified; N18.9 Chronic kidney disease, unspecified; Z74.01 Bed confinement status; Z86.711 Personal history of pulmonary embolism; Z87.01 Personal history of pneumonia (recurrent); F32.9 Major depressive disorder, single episode, unspecified; K29.70 Gastritis, unspecified, without bleeding; R00.0 Tachycardia, unspecified; E78.00 Pure hypercholesterolemia, unspecified; I12.9 Hypertensive chronic kidney disease with stage 1 through stage 4 chronic kidney disease, or unspecified chronic kidney disease

== ENCOUNTER 2018-09-15 16:07 | Inpatient (IN) | payer MEDICARE, MEDICAID ==
[2018-09-15 20:12] LABS: BASO # 0.1 K/uL (0.0-0.2); BASO % 0.4 % (0.0-2.0); EOS # 0.2 K/uL (0.0-0.7); EOS % 1.2 % (0.0-4.0); HEMOGLOBIN 14.3 g/dL (12.0-16.0); LYMPH # 1.3 K/uL (1.0-4.3); LYMPH % 8.1 % (20.0-40.0); MEAN CELL VOLUME 88.3 fl (81.0-99.0); MEAN CORPUSCULAR HEMOGLOBIN 28.6 pg (27.0-31.0); MEAN CORPUSCULAR HGB CONC 32.4 g/dL (33.0-37.0); MEAN PLATELET VOLUME 7.3 fl (7.2-11.7); MONO # 1.6 K/uL (0.0-0.8); MONO % 9.8 % (0.0-10.0); NEUT # 13.1 K/uL (1.8-7.0); NEUT % 80.5 % (50.0-75.0); NRBC % 0.1 % (0.0-0.0); PLATELET COUNT 411 K/uL (130-400); RBC 4.99 Mil/uL (3.80-5.20); RED CELL DISTRIBUTION WIDTH 15.7 % (11.5-14.5); WHITE BLOOD COUNT 16.2 K/uL (4.8-10.8)
[2018-09-15 20:17] LABS: SQUAMOUS EPITHIAL 1 /hpf (0-5); URINE AMORPHOUS SEDIMENT OCC /ul (<OCC); URINE BACTERIA FEW (<OCC); URINE BILIRUBIN NEGATIVE (NEGATIVE); URINE BLOOD NEGATIVE (NEGATIVE); URINE CLARITY TURBID (Clear); URINE COLOR YELLOW (YELLOW); URINE GLUCOSE (UA) NEG (NEGATIVE); URINE LEUKOCYTE ESTERASE LARGE Leu/uL (Negative); URINE PROTEIN 100 mg/dL (NEGATIVE); URINE UROBILINOGEN 0.2-1.0 mg/dL (0.2-1.0)
[2018-09-15 20:30] LABS: ALB/GLOB RATIO 0.9 (1.0-2.1); ALBUMIN 4.3 g/dL (3.5-5.0); ALT/SGPT 43 U/L (9-52); AST/SGOT 56 U/L (14-36); BLOOD UREA NITROGEN 21 mg/dl (7-17); CALCIUM 10.5 mg/dL (8.4-10.2); GFR NON-AFRICAN AMERICAN > 60; LIPASE 80 U/L (23-300)
[2018-09-15 20:48] LABS: ANISOCYTOSIS SLIGHT; EOSINOPHIL 1 % (0-7); LYMPHOCYTE 8 % (20-50); MONOCYTE 10 % (0-10); NEUTROPHIL 81 % (42-75); PLATELET ESTIMATE NORMAL (NORMAL); TOTAL CELLS COUNTED 100
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
[2018-09-15] MEDS ORDERED: Morphine 4 MG/ML VIAL IM STA (22:32)
[2018-09-15] MEDS ORDERED: Morphine 4 MG/ML VIAL ONE (22:52)
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
[2018-09-16] MEDS: Lidocaine 5% Patch TD SCH (10:18)
[2018-09-16] MEDS: Pantoprazole 40 mg EC Tab PO SCH (10:18)
[2018-09-16] MEDS ORDERED: Meropenem 1 GM in Sodium Chloride 0.9% 100 ML IVPB ONE ×2 (11:30→21:44)
[2018-09-16] MEDS: Sodium Chloride 0.9% 1,000 ML IV SCH ×2 (11:46→21:31)
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
[2018-09-16] MEDS: Proshield Plus GEL TOP PRN (14:26)
[2018-09-16] MEDS: Meropenem 1 GM in Sodium Chloride 0.9% 100 ML IVPB SCH (17:34)
--- NOTE | 2018-09-16 18:09 | RAD ---
PROCEDURE: Left Hip X-ray Radiographs. HISTORY: Left hip Pain COMPARISON: None. TECHNIQUE: Frontal view of the pelvis and frogleg view of the left hip were performed. No fracture is seen. Pubic rami appear intact. No sacroiliac joint widening is noted. There are areas of lucency along the medial left femoral cortical shaft with some additional nonspecific areas seen also in the proximal right hip. Small amount of additional lucencies are noted in the pubic rami. This may reflect metabolic disease, osteopenia and/or bony metastatic disease. Caval filter is seen. Surgical clips are seen in the pelvis. The bowel gas pattern is normal. No femoral head flattening is seen. Femoral neck and trochanter are intact. FINDINGS: BONES: See above. JOINTS: See above. SOFT TISSUES: See above. OTHER FINDINGS: None. IMPRESSION: No appreciable left hip fracture. Please see above for discussion of bony structures.
[2018-09-17] MEDS: Meropenem 1 GM in Sodium Chloride 0.9% 100 ML IVPB SCH ×3 (00:30→16:03)
[2018-09-17] MEDS: Proshield Plus GEL TOP PRN ×2 (02:39→13:45)
[2018-09-17] MEDS: Sodium Chloride 0.9% 1,000 ML IV SCH ×2 (02:39→06:16)
[2018-09-17] MEDS: Menthol/Methyl Salicylate Oinment TOP PRN (06:13)
[2018-09-17 08:23] LABS: HEMOGLOBIN 11.7 g/dL (12.0-16.0); MEAN CELL VOLUME 89.1 fl (81.0-99.0); MEAN CORPUSCULAR HEMOGLOBIN 29.1 pg (27.0-31.0); MEAN CORPUSCULAR HGB CONC 32.7 g/dL (33.0-37.0); RBC 4.03 Mil/uL (3.80-5.20); RED CELL DISTRIBUTION WIDTH 15.9 % (11.5-14.5); WHITE BLOOD COUNT 11.2 K/uL (4.8-10.8)
[2018-09-17 08:46] LABS: ALB/GLOB RATIO 0.9 (1.0-2.1); ALBUMIN 3.5 g/dL (3.5-5.0); ALT/SGPT 44 U/L (9-52); AST/SGOT 35 U/L (14-36); BLOOD UREA NITROGEN 18 mg/dl (7-17); CALCIUM 8.9 mg/dL (8.4-10.2); GFR NON-AFRICAN AMERICAN > 60
[2018-09-17] MEDS: Lidocaine 5% Patch TD SCH (08:48)
[2018-09-17] MEDS: Pantoprazole 40 mg EC Tab PO SCH (08:49)
[2018-09-17] MEDS ORDERED: Benzocaine/Menthol (Cepacol) Lozenge MM PRN (11:55)
--- NOTE | 2018-09-17 15:31 | CT ---
Date of service: 09/17/2018 PROCEDURE: CT scan of the hips without contrast bilateral HISTORY: bony lesions noted, h/o cancer COMPARISON: X-ray yesterday. CT scan 08/19/2018 TECHNIQUE: CT scan of the hips was performed utilizing multiple axial images. Coronal reconstructed images and sagittal reconstructed images were also performed. Dose reducing techniques were performed including iterative reconstruction. Dose 392 DLP mGy FINDINGS: No fracture is seen. There is scattered areas of extremely small lucency identified throughout the bony structures and along the bone cortices. Although the finding may be related to osteopenia. Entities such as multiple myeloma and/or other metastatic disease cannot be excluded. No large lytic process is seen. No pathologic fracture is noted. Mild bursal fluid collections are identified in the hip joint regions. Moderate muscular atrophy is noted surrounding the hip joint regions. No sacroiliac joint widening is seen. Overton catheter is seen within the bladder. Bladder wall may be mildly thickened and a small amount of air related to the Overton catheter placement is noted. Small amount of nonspecific presacral soft tissue thickening or edema is noted. Small amount of heterotopic calcification along the inferior posterior aspect of the coccyx is noted. Small early adjacent decubitus ulcer formation is not excluded. No ascites is seen in the pelvis. IMPRESSION: No evidence of fracture. Nonspecific diffuse very small scattered lucencies throughout the bony structures. Appearance is nonspecific and corresponds with the x-ray findings. Multiple myeloma would be considered in the differential diagnosis.
[2018-09-17 15:37] VITALS: BMI 31.6
[2018-09-18] MEDS: Meropenem 1 GM in Sodium Chloride 0.9% 100 ML IVPB SCH ×3 (00:28→17:24)
[2018-09-18] MEDS: Menthol/Methyl Salicylate Oinment TOP PRN (04:04)
[2018-09-18] MEDS: Lidocaine 5% Patch TD SCH (11:06)
[2018-09-18] MEDS: Pantoprazole 40 mg EC Tab PO SCH (11:07)
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
[2018-09-18] MEDS: Enoxaparin 40 mg Syringe SC SCH ×2 (13:03→14:22)
[2018-09-18] MEDS: Proshield Plus GEL TOP PRN (17:09)
[2018-09-19] MEDS: Meropenem 1 GM in Sodium Chloride 0.9% 100 ML IVPB SCH ×4 (00:18→17:22)
[2018-09-19 06:20] LABS: BASO % 0.5 % (0.0-2.0); EOS # 0.6 K/uL (0.0-0.7); EOS % 5.9 % (0.0-4.0); HEMOGLOBIN 13.3 g/dL (12.0-16.0); LYMPH # 1.5 K/uL (1.0-4.3); LYMPH % 15.5 % (20.0-40.0); MEAN CELL VOLUME 87.4 fl (81.0-99.0); MEAN CORPUSCULAR HEMOGLOBIN 29.1 pg (27.0-31.0); MEAN CORPUSCULAR HGB CONC 33.3 g/dL (33.0-37.0); MEAN PLATELET VOLUME 7.5 fl (7.2-11.7); MONO # 1.4 K/uL (0.0-0.8); MONO % 14.2 % (0.0-10.0); NEUT # 6.2 K/uL (1.8-7.0); NEUT % 63.9 % (50.0-75.0); NRBC % 0.1 % (0.0-0.0); RBC 4.57 Mil/uL (3.80-5.20); RED CELL DISTRIBUTION WIDTH 15.3 % (11.5-14.5); WHITE BLOOD COUNT 9.7 K/uL (4.8-10.8)
[2018-09-19 06:27] LABS: ALB/GLOB RATIO 0.9 (1.0-2.1); ALBUMIN 3.9 g/dL (3.5-5.0); ALT/SGPT 35 U/L (9-52); AST/SGOT 34 U/L (14-36); BLOOD UREA NITROGEN 21 mg/dl (7-17); CALCIUM 9.4 mg/dL (8.4-10.2); GFR NON-AFRICAN AMERICAN 58
[2018-09-19] MEDS: Pantoprazole 40 mg EC Tab PO SCH (08:53)
[2018-09-19] MEDS: Lidocaine 5% Patch TD SCH (08:54)
[2018-09-19] MEDS: Enoxaparin 40 mg Syringe SC SCH (08:56)
[2018-09-19] MEDS ORDERED: Lidocaine Hydrochloride 5 ML INJ ONE (12:15)
--- NOTE | 2018-09-19 13:01 | PCM.SURG1 ---
Surgeon's Initial Post Op Note - Surgeon's Notes Surgeon: Jamil Fuentes MD Encephalographer: NONE Type of Anesthesia: Local Pre-Operative Diagnosis: Poor venous access Operative Findings: US showed patent basilic vein, subclavian vein stenosis/occlusion Post-Operative Diagnosis: Poor venous access Operation Performed: Midline picc placed right arm Specimen/Specimens Removed: none Estimated Blood Loss: EBL {In ML}: 2 Blood Products Given: N/A Drains Used: No Drains Post-Op Condition: Fair Date of Surgery/Procedure: 09/19/18 Time of Surgery/Procedure: 12:30
--- NOTE | 2018-09-19 13:09 | VASCULAR ---
Date of PRocedure:09/19/2018 Procedure: 1. Placement of a right arm PICC with ultrasound and fluoroscopic guidance, CPT 82817 2. PICC tip confirmation with spot radiograph and is in the axillary vein Medications: 3 cc 1 percent lidocaine Total Fluoro time: 36.5 Seconds Radiation: 3.72 MGy EBL: 2 cc HISTORY: Poor venous access, central venous stenosis. TECHNIQUE: Following informed consent and procedure time-out, the patient was placed supine on the interventional table and the right arm prepped and draped in the usual sterile fashion. Ultrasound showed a patent and compressible right brachial vein. After the skin was anesthetized with lidocaine, the brachial vein was accessed with micro micropuncture technique using ultrasound guidance. A guidewire was then advanced under fluoroscopic guidance into the axillary vein. An image documenting ultrasound guidance for vascular access was permanently saved. The length of the single-lumen 4 Mosotho PICC was trimmed to 15 centimeters and advanced through a peel-away sheath. The PICC was position with tip of PICC confirm a spot radiograph the axillary. The PICC was secured to the patient's skin. The PICC was flushed. A biopatch and sterile dressing was applied. IMPRESSION: Placement of a single-lumen 4 Mosotho PICC trimmed to 15 centimeters via right brachial vein. The tip of the PICC is confirmed with spot radiograph and is in the axillary vein
[2018-09-19 16:17] VITALS: RESP 20; O2SAT 93
[2018-09-19] MEDS: Menthol/Methyl Salicylate Oinment TOP PRN (22:24)
[2018-09-20] MEDS: Meropenem 1 GM in Sodium Chloride 0.9% 100 ML IVPB SCH ×2 (01:31→09:55)
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
[2018-09-20 08:09] VITALS: BP 98/72; PULSE 89; TEMP 97.7
[2018-09-20] MEDS: Enoxaparin 40 mg Syringe SC SCH (09:54)
[2018-09-20] MEDS: Lidocaine 5% Patch TD SCH (09:55)
[2018-09-20] MEDS: Pantoprazole 40 mg EC Tab PO SCH (09:57)
--- NOTE | 2018-09-20 11:34 | PQF ---
PROVIDER RESPONSE TEXT: Per wound care note, MAS sacrum and decubitus ulcer formation POA. REVIEWER QUERY TEXT: Pressure Ulcer Type On 09/16: Pressure ulcers: Buttocks: partial thickness and Left Heel: intact skin with non-blanchabl e redness are documented in the Medical Record by environment coordinator's. On 09/18 the Wound RN documented :The stage 3 PI that patient had last admission is now healed. There is some MASD to sacrum. CT Hip : incl udes: Small early adjacent decubitus ulcer formation is not excluded Please specify the location, present on admission status and stage: if in agreement Location and late rality of pressure ulcer(s): POA status of each pressure ulcer: -- Not present on admission -- Present on admission -- Other -- Clinically unable to determine -- Unknown Stage of each pressure ulcer (National Pressure Ulcer Advisory Panel definitions): -- Stage I: Intact skin with non-blanchable redness of a localized area -- Stage II: Partial thickness skin loss involving dermis with a shallow open ulcer or an open serum -filled blister -- Stage III: Full thickness skin loss involving damage or necrosis of subcutaneous tissue -- Stage IV: Full thickness skin loss with exposed bone, tendon or muscle -- Unstageable: Full thickness tissue loss in which the base of the ulcer is covered by slough and/o r eschar in the wound bed The patient's Clinical Indicators include: -- Query created by: Radha Berumen on 09/19/2018 9:40 AM Electronically signed by: Parmjit Meeks 09/20/2018 11:31 AM
--- NOTE | 2018-09-20 11:34 | PQF ---
PROVIDER RESPONSE TEXT: Likely from chronic, castillo catheter associated UTI REVIEWER QUERY TEXT: Clarification of Clinical Diagnostic Findings Physician?s Documentation Request This Form is Not a Permanent Document in the Medical Record Pt Name: REGINA MOLINA MR #: [id number] Payor: MEDICARE PART A [id number] Adm Date: 09/17/2018 11:09:00 PM Reviewer: Radha Berumen Ext. Query Date: 09/19/2018 9:28:31 AM Clarification of Clinical Diagnostic Findings [id number] By submitting this query, we are merely seeking further clarification of documentation to accurately reflect all conditions that you are monitoring, evaluating, treating or that extend the hospitalizati on or utilize additional resources of care. Please utilize your independent clinical judgment when ad dressing the question(s) below. Dear Doctor Parmjit Meeks, The patient?s Clinical Indicators include: -- Please clarify if Sepsis is due to a castillo catheter related UTI versus Sepsis due to a straight UTI? -Or: Disagree -Or: Other explanation of clinical finding ER note includes:--ovarian Ca s/p debulking/resection 2 months ago Given a dose of Meropenem given recent urosepsis approximately 2 weeks ago requiring Meropenem Pelvic Exam: Positive for: Other (Castillo in place noted to have very cloudy urine (2) Urinary tract infection Status: Acute PLEASE DOCUMENT ANY ADDITIONAL DIAGNOSES AND/OR SPECIFICITY IN THE PROGRESS NOTES AND/OR DISCHARGE TURNER MMARY. Clinically unable to determine/unknown Disagree with the above request Need to discuss Query created by: Radha Berumen on 09/19/2018 9:28 AM Electronically signed by: Parmjit Meeks 09/20/2018 11:31 AM
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
== END 2018-09-20 15:00 | DRG 698 ==
LOC: H.ER 16:07 → H.ERHOLD 21:41 → H.MEDSURG1 09-16 00:10 → OBSVTOIN 09-17 23:09
PROVIDERS: ADMIT Family Medicine; ATTEND Family Medicine
PROC: 05H533Z Insertion of Infusion Device into Right Subclavian Vein, Percutaneous Approach (ICD-10-PCS; principal; 2018-09-19)
PROC: B546ZZA Ultrasonography of Right Subclavian Vein, Guidance (ICD-10-PCS; 2018-09-19)
PROC: B516ZZA Fluoroscopy of Right Subclavian Vein, Guidance (ICD-10-PCS; 2018-09-19)
PROC: 3E03329 Introduction of Other Anti-infective into Peripheral Vein, Percutaneous Approach (ICD-10-PCS; 2018-09-19)
DX: T83.511A Infection and inflammatory reaction due to indwelling urethral catheter, initial encounter (principal); A41.9 Sepsis, unspecified organism; T74.11XA Adult physical abuse, confirmed, initial encounter; I69.354 Hemiplegia and hemiparesis following cerebral infarction affecting left non-dominant side; N39.0 Urinary tract infection, site not specified; B96.20 Unspecified Escherichia coli [E. coli] as the cause of diseases classified elsewhere; B96.4 Proteus (mirabilis) (morganii) as the cause of diseases classified elsewhere; Z16.12 Extended spectrum beta lactamase (ESBL) resistance; I69.328 Other speech and language deficits following cerebral infarction; L89.159 Pressure ulcer of sacral region, unspecified stage; I12.9 Hypertensive chronic kidney disease with stage 1 through stage 4 chronic kidney disease, or unspecified chronic kidney disease; N18.9 Chronic kidney disease, unspecified; E78.5 Hyperlipidemia, unspecified; J44.9 Chronic obstructive pulmonary disease, unspecified; E78.00 Pure hypercholesterolemia, unspecified; R33.8 Other retention of urine; F41.9 Anxiety disorder, unspecified; Z85.41 Personal history of malignant neoplasm of cervix uteri; Z85.43 Personal history of malignant neoplasm of ovary; Z86.711 Personal history of pulmonary embolism; Z86.19 Personal history of other infectious and parasitic diseases; Z87.01 Personal history of pneumonia (recurrent); Z88.0 Allergy status to penicillin